=== PATIENT | male | born 1975 | race Caucasian/White ===

== ENCOUNTER 2020-08-16 10:15 | Emergency (ER) | payer MEDICARE, MEDICAID, SELFPAY ==
[2020-08-16 10:25] VITALS: BP 114/69; PULSE 82; RESP 16; TEMP 36.6; O2SAT 100; BMI 27.3
--- NOTE | 2020-08-16 10:52 | ED.GENADULT ---
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 He also reports he has increased pain in his bilateral lower extremities. He has been complaint with all of his medications including lovenox. He states the pain is constant and is in his middle abdomen and radiates outward. No diarrhea, no urinary symptoms. No chest pain or SOB. MD complaint: abdominal pain & leg pain Onset (ago): day(s) Location: abdomen and lower extremity Radiation: flank Severity: severe Severity scale (1-10): 8 Quality: sharp Pain Consistency: constant Relieving factors: none Exacerbating factors: movement Associated symptoms: nausea/vomiting Treatments prior to arrival: none Related Data Previous Rx's Medication Instructions Recorded ciprofloxacin HCl 250 mg PO Q12H #14 tab 08/16/20 metronidazole [Flagyl] 500 mg PO Q12H #14 tab 08/16/20 ondansetron HCl [Zofran] 4 mg PO Q8H PRN #10 tab 08/16/20 Allergies Allergy/AdvReac Type Severity Reaction Status Date / Time acetaminophen [From PERCOCET] Allergy Unknown ITCHING Unverified 05/13/20 19:38 carbamazepine [From TEGRETOL] Allergy Unknown HALLUCINATI Unverified 05/13/20 19:38 ONS influenza virus vaccine, Allergy Unknown GUILLIAN Unverified 05/13/20 19:38 specific BARRE HX. [FLU VACCINE] lamotrigine [From LAMICTAL] Allergy Unknown ITCHING Unverified 05/13/20 19:38 metoclopramide [From REGLAN] Allergy Unknown ITCHY Unverified 05/13/20 19:38 oxycodone [From PERCOCET] Allergy Unknown ITCHING Unverified 05/13/20 19:38 tramadol [TRAMADOL] Allergy Unknown SEIZURES Unverified 05/13/20 19:38 SEAFOOD Allergy Unknown ANAPHYLAXIS Uncoded 05/13/20 19:38 Review of Systems Review of Systems: Constitutional: No Fever, No Chills ENT/Mouth: No sore throat, No Rhinorrhea, No Swallowing Difficulty Eyes: No Eye Pain, No Swelling, No Redness Cardiovascular: No Chest Pain, No SOB, No Orthopnea, No Edema Respiratory: No Cough, No Sputum, No Wheezing, No dyspnea Gastrointestinal: + Nausea, + Vomiting, No Diarrhea, + abdominal Pain, No Hematochezia, No Melena Genitourinary: No Dysuria, No Urinary Frequency, No Hematuria Musculoskeletal: No joint pain, + Myalgias Skin: No Skin Lesions, No rash Neuro: No Weakness, No Numbness, No Dizziness, No Headache Psych: No Anxiety/Panic, No Depression Heme/Lymph: No Bruising, No Lymphadenopathy Endocrine: No Polyuria, No Polydipsia PMFSH Past Medical History Attestation statement: The following information was validated with the patient. Medical History (Updated 08/16/20 @ 16:13 by ANA Ryan) COVID-19 Diabetes DVT (deep venous thrombosis) HIV (human immunodeficiency virus infection) Seizure disorder Surgical History (Updated 08/16/20 @ 11:51 by ANA Ryan) H/O fasciotomy S/P AAA (abdominal aortic aneurysm) repair S/P IVC filter Social History Social History Smoking Status: Former smoker Smoked in Last 30 Days: No Use of substances other than those prescribed or required for medical reasons: No Advance Directives: No Advance Directives Information Provided: No Physical Exam Vital Signs: Vital Signs: Last Vital Signs Temp 97.9 F 08/16/20 10:25 Pulse 74 08/16/20 14:40 Resp 16 08/16/20 12:33 BP 114/66 08/16/20 14:40 Pulse Ox 98 08/16/20 12:33 Body Mass Index 27.3 Appearance: Alert. Oriented X3. No acute distress. Eyes: Pupils equal, round and reactive to light. ENT: Pharynx normal. Neck: Normal inspection. Neck supple. CVS: Normal heart rate and rhythm. Pulses normal. Respiratory: No respiratory distress. Breath sounds normal. Abdomen: Soft with central tenderness and rebound, no palpable mass. normal +BS x4 Skin: Skin warm and dry. Normal skin color. Normal skin turgor. No rashes. Extremities: No lower extremity edema. well healed surgical scars consistent with prior fasciotomy. bilateral calf tenderness, no erythema. Neuro: Oriented X 3. No motor deficit. No sensory deficit. Course Course Course Narrative: 44 y/o male with multiple co-morbitities presenting with abdominal pain and leg pain x4 days. Hx AAA repair in the past. Will proceed with imaging to evaluate for bleeding, endoleak. He has failed Pradaxa in the past and is on Lovenox, will get US to assess for additional acute thrombus. Reevaluation(s) Reevaluation #1: LE US showed no acute DVT, unchanged popliteal artery aneurysm. Lab workup so far is unremarkable. CT scan pending. Patient appears comfortable. Reevaluation #2: CT scan shows possible mild ileitis with small amount of free fluid. He is tolerating PO here. Pain improved with dose of Toradol. He is stable for discharge home with oral antibiotics and referral to GI. He has been seen by GI at [facility] and plans to go back there. All questions were answered, stabel for d/c. Medical Decision Making Lab Data Result diagrams: 08/16/20 11:26 08/16/20 11:26 Labs: Lab Results 08/16/20 08/16/20 08/16/20 Range/Units 11:26 11:26 11:26 WBC 4.0 L (4.8-10.8) X10*3/uL RBC 4.57 L (4.60-5.80) X10*6/uL Hgb 12.0 L (14.0-18.0) g/dl Hct 39.2 L (42-52) % MCV 85.8 (80-98) fL MCH 26.3 L (27.0-33.0) pg MCHC 30.6 L (31.0-36.0) g/dl RDW 16.0 (11.0-16.0) % Plt Count 171 (160-400) X10*3/uL MPV 10.1 (9.4-12.4) fL Immature Gran % (Auto) 0.0 (0.0-0.4) % Neut % (Auto) 37.2 L (45-73) % Lymph % (Auto) 50.0 H (20-40) % [place] % (Auto) 11.1 H (2-11) % Eos % (Auto) 1.2 (0-4) % Baso % (Auto) 0.5 (0-2) % Lymph # (Auto) 2.0 (1.2-4.9) X10*3/uL [place] # (Auto) 0.5 (0.1-1.2) X10*3/uL Eos # (Auto) 0.1 (0.0-0.4) X10*3/uL Baso # (Auto) 0.0 (0.0-0.2) X10*3/uL Abs Immat Gran (auto) 0.00 (0.00-0.03) X10*3/uL Absolute Neuts (auto) 1.5 L (2.0-8.3) X10*3/uL Absolute Nucleated RBC 0.000 (0.0-0.012) X10*3/uL Nucleated RBC % (auto) 0.0 (0.0-0.2) /100WBC PT 11.9 (10.8-13.0) SEC INR 1.0 (0.9-1.1) Sodium 136 (135-145) mmol/L Potassium 3.9 (3.3-5.1) mmol/l Chloride 107 (96-108) mmol/L Carbon Dioxide 21 L (22-29) mmol/L Anion Gap 12 (12-20) BUN 8 L (9-16) mg/dL Creatinine 0.96 (0.5-1.4) mg/dL Estim Creat Clear Calc 96.1 Estimated GFR > 60 Random Glucose 154 H (60-115) mg/dL Lactic Acid (0.5-2.0) mmol/L Calcium 8.3 L (8.4-10.2) mg/dL Magnesium 2.0 (1.6-2.6) mg/dL Total Bilirubin 0.3 (0.0-1.0) mg/dL Direct Bilirubin < 0.2 (0.0-0.5) mg/dL AST 52 H (5-37) U/L ALT 61 H (0-40) U/L Alkaline Phosphatase 97 (39-117) U/L Total Protein 8.0 (6.5-8.0) g/dL Albumin 3.7 (3.5-5.0) g/dL Lipase 37 (8-78) U/L Urine Color Urine Appearance Urine pH (5.0-8.0) Ur Specific [place] (1.005-1.025) Urine Protein (NEG-TRACE) MG/DL Urine Glucose (UA) (NEG) MG/DL Urine Ketones (NEG) MG/DL Urine Blood (NEG) Urine Nitrite (NEG) Ur Leukocyte Esterase (NEG) Urine Opiates Screen (Not Detect) Ur Barbiturates Screen (Not Detect) Ur Phencyclidine Scrn (Not Detect) Ur Amphetamines Screen (Not Detect) U Benzodiazepines Scrn (Not Detect) Urine Cocaine Screen (Not Detect) U Marijuana (THC) Screen (Not Detect) 08/16/20 08/16/20 08/16/20 Range/Units 11:26 11:26 11:26 WBC (4.8-10.8) X10*3/uL RBC (4.60-5.80) X10*6/uL Hgb (14.0-18.0) g/dl Hct (42-52) % MCV (80-98) fL MCH (27.0-33.0) pg MCHC (31.0-36.0) g/dl RDW (11.0-16.0) % Plt Count (160-400) X10*3/uL MPV (9.4-12.4) fL Immature Gran % (Auto) (0.0-0.4) % Neut % (Auto) (45-73) % Lymph % (Auto) (20-40) % [place] % (Auto) (2-11) % Eos % (Auto) (0-4) % Baso % (Auto) (0-2) % Lymph # (Auto) (1.2-4.9) X10*3/uL [place] # (Auto) (0.1-1.2) X10*3/uL Eos # (Auto) (0.0-0.4) X10*3/uL Baso # (Auto) (0.0-0.2) X10*3/uL Abs Immat Gran (auto) (0.00-0.03) X10*3/uL Absolute Neuts (auto) (2.0-8.3) X10*3/uL Absolute Nucleated RBC (0.0-0.012) X10*3/uL Nucleated RBC % (auto) (0.0-0.2) /100WBC PT (10.8-13.0) SEC INR (0.9-1.1) Sodium (135-145) mmol/L Potassium (3.3-5.1) mmol/l Chloride (96-108) mmol/L Carbon Dioxide (22-29) mmol/L Anion Gap (12-20) BUN (9-16) mg/dL Creatinine (0.5-1.4) mg/dL Estim Creat Clear Calc Estimated GFR Random Glucose (60-115) mg/dL Lactic Acid 1.9 (0.5-2.0) mmol/L Calcium (8.4-10.2) mg/dL Magnesium (1.6-2.6) mg/dL Total Bilirubin (0.0-1.0) mg/dL Direct Bilirubin (0.0-0.5) mg/dL AST (5-37) U/L ALT (0-40) U/L Alkaline Phosphatase (39-117) U/L Total Protein (6.5-8.0) g/dL Albumin (3.5-5.0) g/dL Lipase (8-78) U/L Urine Color YELLOW Urine Appearance HAZY Urine pH 6.0 (5.0-8.0) Ur Specific [place] >= 1.030 H (1.005-1.025) Urine Protein TRACE (NEG-TRACE) MG/DL Urine Glucose (UA) 500 H (NEG) MG/DL Urine Ketones NEG (NEG) MG/DL Urine Blood NEG (NEG) Urine Nitrite NEG (NEG) Ur Leukocyte Esterase NEG (NEG) Urine Opiates Screen POSITIVE H (Not Detect) Ur Barbiturates Screen Not Detected (Not Detect) Ur Phencyclidine Scrn Not Detected (Not Detect) Ur Amphetamines Screen Not Detected (Not Detect) U Benzodiazepines Scrn Not Detected (Not Detect) Urine Cocaine Screen Not Detected (Not Detect) U Marijuana (THC) Screen Not Detected (Not Detect) Critical Care Time Critical Care Time Critical Care Time: No Discharge Plan Discharge Clinical Impression: Ileitis Patient Disposition: Home, Self-Care Instructions: Enteritis (ED) Additional Instructions: Take the antibiotics as prescribed. Follow up with GI doctor. Stick to a bland diet while you are not feeling well. Take Tylenol for abdominal discomfort. Stay hydrated. Follow up with your doctor this week. If you have worsening abdominal pain, persistent nausea and vomiting or any other concerning symptom come back to the ER for further evaluation. Prescriptions: New metronidazole [Flagyl] 500 mg tablet 500 mg PO Q12H Qty: 14 RF: 0 ciprofloxacin HCl 250 mg tablet 250 mg PO Q12H Qty: 14 RF: 0 ondansetron HCl [Zofran] 4 mg tablet 4 mg PO Q8H PRN (Reason: nausea and vomiting) Qty: 10 RF: 0 Referrals: Basilio Kaba MD [Physician] - 1 week (ileitis) Print Language: Yakut
--- NOTE | 2020-08-16 10:53 | CT_ITS ---
EXAMINATION: CTA ABDOMEN AND PELVIS WITH BILATERAL RUNOFF WITHOUT AND WITH IV CONTRAST CLINICAL INFORMATION: Bilateral lower extremity pain and abdominal pain. COMPARISON: CT abdomen/pelvis 03/21/2020 TECHNIQUE: Multidetector volumetric imaging was performed from the superior aspect of the liver through the feet both before and following the administration of 85 mL of Omnipaque 350 intravenous contrast. Sagittal and coronal reformatted images were obtained on the technologist's workstation. As a stat reading was requested, structures were not performed at the time of the study. This CT examination was performed using dose optimization techniques as appropriate, variously including the following: *Automated exposure control *Adjustment of mA and/or kV according to patient size (this includes techniques or standardized protocols for targeted exams where dose is matched to indication/reason for exam; i.e. extremities or head) *Use of iterative reconstruction technique DLP: 501 mGy-cm VASCULAR FINDINGS: INFLOW - AORTA AND ITS BRANCHES: The upper abdominal aorta appears normal. There is an aortobiiliac stent graft present. No aortic sac is present at this time. Within the iliac limbs of the aortic stent graft, 2 additional crossing stents appear to be present. There is no evidence of a significant endoleak. Around the right iliac component, there is a tiny bit of high density seen between the lumen of 2 overlapping iliac devices (see series 9 image 41). This is not felt to be significant and is unchanged when compared to 03/21/2020. The left gastric artery has a separate origin from the aorta. The celiac and SMA are patent. The RAMANA is not patent but its branches are seen to fill retrograde. There are single renal arteries present bilaterally without a significant origin stenosis. RUNOFF: RIGHT: The right component of the iliac graft has 2 overlapping stents. As described above, a small bit of contrast is seen between the tucker of the stent which is unchanged when compared to the prior study. The iliac bifurcation is patent. The internal iliac is widely patent. The external iliac is free of disease. The common femoral artery appears normal. The femoral bifurcation is patent. The superficial femoral artery is patent. The profunda femoris is patent. Distally, at the junction of the SFA and popliteal, the popliteal is occluded and there is an SFA to posterior tibial artery bypass graft present. There is retrograde flow through the posterior tibial artery which has a high [id number] joint origin with good filling of the anterior tibial/peroneal trunk. All 3 runoff vessels are seen patent to the foot. LEFT: The stented left common iliac is widely patent. Again, 2 overlapping stents are present in the iliac artery on the left. The iliac bifurcation is patent. Normal-appearing internal iliac and external iliac arteries. The common femoral artery is widely patent. The femoral bifurcation is patent. The profunda femoris and SFA appear normal. The popliteal appears normal with a normal [id number]-[id number]-zpha trifurcation with three-vessel runoff noted to the foot. NON-VASCULAR FINDINGS: No pleural effusions are seen. LUNG BASES: The visualized lung bases are unremarkable. PERITONEAL CAVITY: No ascites. LIVER, GALLBLADDER, AND BILIARY TREE: The liver is normal in size, shape, and attenuation. Only a portion of the liver is included. No focal hepatic lesion or biliary ductal dilatation is present. Status post cholecystectomy. PANCREAS: Unremarkable. SPLEEN: The visualized spleen is unremarkable. A few splenic calcified granulomas are present. ADRENAL GLANDS: Unremarkable. KIDNEYS AND URETERS: The kidneys are normal in size, shape, and attenuation with the exception of a small area of focal scarring in the right lower pole. No hydronephrosis, hydroureter, or calculi seen. No perinephric stranding. BLADDER: Unremarkable. GASTROINTESTINAL TRACT: A rectosigmoid anastomosis is present. The small and large bowel are unremarkable. The appendix is not seen, and surgical clips are noted in the region of the appendix. ABDOMINAL WALL: No significant hernia is appreciated. LYMPH NODES: Some small left para-aortic lymph nodes are present, but there is no retroperitoneal adenopathy seen. VASCULAR: See above for arterial anatomy. A retrievable IVC filter is present just below the level of the renal vein. PELVIC VISCERA: The prostate and seminal vesicles are unremarkable. OSSEOUS STRUCTURES: Unremarkable. CT/CT angio abd aorta runoff IMPRESSION: VASCULAR: 1. Aortobiiliac stent graft with no residual aneurysm or significant endoleak. There are iliac stents inside each iliac component of the graft which are widely patent. On the right, a small area of probable contrast opacification is seen between the tucker of the stents which is unchanged when compared to the prior exam. 2. On the right, there is [id number]-ahmg popliteal occlusion with a distal SFA to posterior tibial bypass graft present with good retrograde filling of all 3 runoff vessels. NON-VASCULAR: 1. A cause for the patient's abdominal pain is not seen. 2. Incidental note made of cholecystectomy, appendectomy, rectosigmoid anastomosis, small para-aortic lymph nodes, retrievable IVC filter, small right right lower pole renal scar This critical result was discussed with ANA Whitt at 2:34 PM and it was ascertained that the content and urgency of the report was understood at the time of direct communication.
[2020-08-16 11:40] LABS: MANUAL DIFF FLAG NO
--- NOTE | 2020-08-16 11:46 | US_ITS ---
EXAMINATION: US VENOUS ULTRASOUND WITH DOPPLER LOWER EXTREMITY, BILATERAL CLINICAL INFORMATION: History of DVT. Bilateral lower extremity pain. COMPARISON: September 24, 2019 and studies dating back to August 02, 2019 TECHNIQUE: Ultrasound of the deep veins is performed from the hip to the calf with compression sonography and color and pulse Doppler assessment. Spectral analysis with color-flow imaging is performed. FINDINGS: RIGHT: There is normal venous compression and respiratory variation and augmented flow. The visualized common femoral vein, superficial femoral vein, profunda femoral vein, popliteal vein, and the trifurcation region shows no evidence of deep venous thrombosis. There is no significant popliteal fossa cyst. There is again noted to be a 2.4 cm diameter right popliteal artery aneurysm with patent lumen measuring approximately 1.5 cm in diameter. LEFT: There is normal venous compression and respiratory variation and augmented flow. The visualized common femoral vein, superficial femoral vein, profunda femoral vein, popliteal vein, and the trifurcation region shows no evidence of deep venous thrombosis. There is no significant popliteal fossa cyst. No popliteal artery aneurysm. US/US venous duplex LE BI IMPRESSION: No acute DVT demonstrated in the bilateral lower extremity. Again noted to be a 2.4 cm right popliteal artery aneurysm.
[2020-08-16 11:49] LABS: Prothrombin Time 11.9 SEC (10.8-13.0)
[2020-08-16 11:52] LABS: Basophils Percent Auto 0.5 % (0-2); Eosinophils Absolute Auto 0.1 X10*3/uL (0.0-0.4); Eosinophils Percent Auto 1.2 % (0-4); Hematocrit 39.2 % (42-52); Mean Corpuscular HGB Conc 30.6 g/dl (31.0-36.0); Mean Corpuscular Hemoglobin 26.3 pg (27.0-33.0); Mean Corpuscular Volume 85.8 fL (80-98); Mean Platelet Volume 10.1 fL (9.4-12.4); Monocytes Absolute Auto 0.5 X10*3/uL (0.1-1.2); Monocytes Percent Auto 11.1 % (2-11); Neutrophils Absolute Auto 1.5 X10*3/uL (2.0-8.3); Neutrophils Percent Auto 37.2 % (45-73); Platelet Count 171 X10*3/uL (160-400); Red Blood Count 4.57 X10*6/uL (4.60-5.80)
[2020-08-16 12:05] LABS: Glucose Urine UA 500 MG/DL (NEG); Leukocyte Esterase Urine NEG (NEG); Nitrite Urine NEG (NEG); Specific Gravity - Urine >= 1.030 (1.005-1.025); Urine Blood NEG (NEG); Urine Ketones NEG (NEG); Urine Protein TRACE MG/DL (NEG-TRACE)
[2020-08-16 12:07] LABS: Appearance Urine HAZY; Color Urine YELLOW
[2020-08-16 12:09] LABS: Lactic Acid 1.9 mmol/L (0.5-2.0)
[2020-08-16 12:16] LABS: Alanine Aminotransferase 61 U/L (0-40); Albumin Level 3.7 g/dL (3.5-5.0); Alkaline Phosphatase 97 U/L (39-117); Anion Gap 12 (12-20); Aspartate Amino Transferase 52 U/L (5-37); Bilirubin Direct < 0.2 mg/dL (0.0-0.5); Bilirubin Total 0.3 mg/dL (0.0-1.0); Blood Urea Nitrogen 8 mg/dL (9-16); Calcium 8.3 mg/dL (8.4-10.2); Carbon Dioxide 21 mmol/L (22-29); Chloride 107 mmol/L (96-108); Creatinine Clr Calc Pharmacy 96.1; Estimated Glomerular Filt Rate > 60; Glucose Random 154 mg/dL (60-115); Lipase 37 U/L (8-78); Potassium 3.9 mmol/l (3.3-5.1); Sodium 136 mmol/L (135-145)
[2020-08-16 12:22] LABS: Amphetamine Screen Urine Not Detected (Not Detect); Barbiturates, Urine Not Detected (Not Detect); Benzodiazepines Screen Urine Not Detected (Not Detect); Cannabinoid Screen Urine Not Detected (Not Detect); Cocaine Screen Urine Not Detected (Not Detect); Opiate Screen Urine POSITIVE (Not Detect); Phencyclidine Screen Urine Not Detected (Not Detect)
[2020-08-16 12:33] VITALS: BP 119/77; PULSE 77; RESP 16; O2SAT 98
[2020-08-16] MEDS: iohexoL 350 MG/ML 100 ML INFUS..BTL 99 ML IV (13:31)
[2020-08-16 14:40] VITALS: BP 114/66; PULSE 74
[2020-08-16] MEDS: Ketorolac Tromethamine 30 MG/ML VIAL IVPUSH (14:50)
== END 2020-08-16 16:24 | disposition home or self-care (01) ==
PROVIDERS: Physician Assistant; Emergency Provider Emergency Medicine
DX: K52.9 Noninfective gastroenteritis and colitis, unspecified (principal); Z21 Asymptomatic human immunodeficiency virus [HIV] infection status; E11.9 Type 2 diabetes mellitus without complications; Z86.718 Personal history of other venous thrombosis and embolism; Z86.19 Personal history of other infectious and parasitic diseases; Z79.899 Other long term (current) drug therapy
CPT/HCPCS: 36415; 75635; 80048; 80076; 80307; 81003; 83605; 83690; 83735; 85025; 85610; 87040; 93970; 96374; 99284; J1885; Q9967

== ENCOUNTER 2020-08-17 11:46 | Outpatient (REF) | payer MEDICARE, MEDICAID, SELFPAY | END 2020-08-17 11:47 | disposition home or self-care (01) | LOC: HO.LAB 11:46 | PROVIDERS: PCP Physician Assistant; Visit Provider Internal Medicine | DX: Z20.828 Contact with and (suspected) exposure to other viral communicable diseases (principal) | CPT/HCPCS: C9803; U0003 ==

== ENCOUNTER 2021-05-13 10:34 | Emergency (ER) | payer MEDICARE, MEDICAID, SELFPAY ==
--- NOTE | ~2021-05-13 | CT_ITS ---
EXAMINATION: CT ANGIOGRAPHY LEGS WITH RUNOFF CLINICAL INFORMATION: AAA repair of abdominal pain radiating to back COMPARISON: CT angiography from 08/16/2020 TECHNIQUE: Multidetector volumetric imaging was performed from the superior aspect of the liver through the feet both before and following the administration of 10mL of Omnipaque 350 intravenous contrast. Sagittal and coronal reformatted images were obtained on the technologist's workstation. As a stat reading was requested, structures were not performed at the time of the study. This CT examination was performed using dose optimization techniques as appropriate, variously including the following: *Automated exposure control *Adjustment of mA and/or kV according to patient size (this includes techniques or standardized protocols for targeted exams where dose is matched to indication/reason for exam; i.e. extremities or head) *Use of iterative reconstruction technique DLP: 530 mGy-cm FINDINGS: LOWER CHEST: Bibasilar atelectasis. The heart is not enlarged. No pericardial effusion. LIVER, GALLBLADDER, AND BILIARY TREE: The liver is normal in size and shape. Decreased hepatic attenuation suggesting hepatic steatosis. No focal hepatic lesion or biliary ductal dilatation is present. The gallbladder is surgically absent. PANCREAS: Unremarkable. SPLEEN: Unremarkable. A 1.5 cm splenule is noted. ADRENAL GLANDS: Unremarkable. KIDNEYS AND URETERS: The kidneys are normal in size, shape, and attenuation. No hydronephrosis, hydroureter, or calculi seen. No perinephric stranding. BLADDER: Unremarkable. GASTROINTESTINAL TRACT: Surgical material noted at the level of the sigmoid colon. The small and large bowel are unremarkable. The appendix is surgically absent. ABDOMINAL WALL: No significant hernia is appreciated. LYMPH NODES: No enlarged lymph nodes per size criteria. VASCULAR: Patency of the celiac and superior mesenteric arteries. The left hepatic artery arises from the aorta. Patency of the bilateral renal arteries. Patient is status post endovascular aortic aneurysm repair with aortobiiliac stent grafts noted. Both components contain overlapping stents.The distal component of the left stent terminates just proximal to the ostium of the left internal iliac artery. The bilateral external and internal iliac arteries are patent. The right superficial femoral artery is patent at its proximal and midportion and demonstrates a SFA to posterior tibial artery bypass graft secondary to occlusion of the distal femoral/popliteal artery. There is subsequent 3 vessel runoff on the right side. The left side demonstrates patency of the superficial femoral artery, popliteal artery, with three-vessel runoff. PELVIC VISCERA: Unremarkable. OSSEOUS STRUCTURES: Degenerative changes of the thoracolumbar spine. No large lytic or blastic lesions are noted. CT/CT angio abd aorta runoff IMPRESSION: 1. No acute process of the abdomen or pelvis identified. 2. No acute vascular injury. 3. Status post aortobiiliac stent graft with patency of stents. 4. Status post right superficial femoral artery to severe tibial artery bypass graft, patent. 5. 3 vessel runoff bilaterally. 6. Decreased hepatic attenuation suggesting hepatic steatosis. 7. Status post cholecystectomy. 8. Surgical material at the level of the sigmoid colon. 9. Status post appendectomy.
--- NOTE | ~2021-05-13 | CT_ITS ---
EXAMINATION: CT HEAD WITHOUT CONTRAST CLINICAL INFORMATION: Status post fall on blood thinners COMPARISON: CT head from 09/06/2019 TECHNIQUE: Contiguous axial imaging was performed from the skull base to vertex without intravenous administration of contrast. This CT examination was performed using dose optimization techniques as appropriate, variously including the following: *Automated exposure control *Adjustment of mA and/or kV according to patient size (this includes techniques or standardized protocols for targeted exams where dose is matched to indication/reason for exam; i.e. extremities or head) *Use of iterative reconstruction technique DLP: 750 5. mGy-cm FINDINGS: There is no evidence of acute intracranial hemorrhage or territorial infarction. No abnormal mass effect or midline shift is seen. [place] to white matter differentiation is well preserved. No extra-axial fluid collections are identified. The ventricles are normal in size. There is no abnormal attenuation within the brain parenchyma. The osseous structures and soft tissues are normal. The mastoid air cells and visualized portions of the paranasal sinuses are well aerated. CT/CT head/brain wo con IMPRESSION: No acute intracranial pathology.
--- NOTE | ~2021-05-13 | US_ITS ---
EXAMINATION: US VENOUS ULTRASOUND WITH DOPPLER LOWER EXTREMITY, BILATERAL CLINICAL INFORMATION: Leg pain status post fall history of DVT with fasciotomy COMPARISON: Ultrasound venous lower extremity bilateral from 08/16/2020 TECHNIQUE: Ultrasound of the deep veins is performed from the hip to the calf with compression sonography and color and pulse Doppler assessment. Spectral analysis with color-flow imaging is performed. FINDINGS: RIGHT: There is normal venous compression and respiratory variation and augmented flow. The visualized common femoral vein, superficial femoral vein, profunda femoral vein, popliteal vein, and the trifurcation region shows no evidence of deep venous thrombosis. There is no significant popliteal fossa cyst. 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 LEFT: There is normal venous compression and respiratory variation and augmented flow. The visualized common femoral vein, superficial femoral vein, profunda femoral vein, popliteal vein, and the trifurcation region shows no evidence of deep venous thrombosis. There is no significant popliteal fossa cyst. Suggestion of chronic-appearing thrombus involving the distal left femoral and popliteal vein. If the patient's symptoms persist, followup ultrasound in 5 days 7 days might be of value to exclude proximal propagation from a non-visualized calf vein. US/US venous duplex LE BI IMPRESSION: 1. No DVT demonstrated in the bilateral lower extremity. 2. Suggestion of chronic-appearing thrombus involving the distal left femoral and popliteal vein. 3. 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
--- NOTE | 2021-05-13 10:35 | PC.NURSE ---
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
[2021-05-13 10:44] VITALS: BP 111/78; PULSE 108; RESP 16; TEMP 36.7; O2SAT 96; BMI 27.6
--- NOTE | 2021-05-13 10:52 | ED.GENADULT ---
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-old mother presents to the emergency department non-traumatic bilateral lower leg pain Related Data Previous Rx's Medication Instructions Recorded ciprofloxacin HCl 250 mg tablet 250 mg PO Q12H #14 tab 08/16/20 metronidazole 500 mg tablet 500 mg PO Q12H #14 tab 08/16/20 (Flagyl) ondansetron HCl 4 mg tablet 4 mg PO Q8H PRN #10 tab 08/16/20 (Zofran) Allergies Allergy/AdvReac Type Severity Reaction Status Date / Time acetaminophen [From PERCOCET] Allergy Unknown ITCHING Unverified 05/13/20 19:38 carbamazepine [From TEGRETOL] Allergy Unknown HALLUCINATI Unverified 05/13/20 19:38 ONS influenza virus vaccine, Allergy Unknown GUILLIAN Unverified 05/13/20 19:38 specific BARRE HX. [FLU VACCINE] lamotrigine [From LAMICTAL] Allergy Unknown ITCHING Unverified 05/13/20 19:38 metoclopramide [From REGLAN] Allergy Unknown ITCHY Unverified 05/13/20 19:38 oxycodone [From PERCOCET] Allergy Unknown ITCHING Unverified 05/13/20 19:38 tramadol [TRAMADOL] Allergy Unknown SEIZURES Unverified 05/13/20 19:38 SEAFOOD Allergy Unknown ANAPHYLAXIS Uncoded 05/13/20 19:38 [facility] Past Medical History Medical History (Updated 08/17/20 @ 00:01 by Danyelle Maharaj) COVID-19 Diabetes DVT (deep venous thrombosis) HIV (human immunodeficiency virus infection) Seizure disorder Surgical History (Updated 08/16/20 @ 11:51 by ANA Ryan) H/O fasciotomy S/P AAA (abdominal aortic aneurysm) repair S/P IVC filter Physical Exam Vital Signs: Vital Signs: Last Vital Signs Temp 98.0 F 05/13/21 10:44 Pulse 108 H 05/13/21 10:44 Resp 16 05/13/21 10:44 BP 111/78 05/13/21 10:44 Pulse Ox 96 05/13/21 10:44 Body Mass Index 27.6 Discharge Plan Discharge Prescriptions: No Action metronidazole [Flagyl] 500 mg tablet 500 mg PO Q12H Qty: 14 RF: 0 ciprofloxacin HCl 250 mg tablet 250 mg PO Q12H Qty: 14 RF: 0 ondansetron HCl [Zofran] 4 mg tablet 4 mg PO Q8H PRN (Reason: nausea and vomiting) Qty: 10 RF: 0
--- NOTE | 2021-05-13 11:12 | ED_ITS ---
HPI - Extremity Problem General Chief complaint: Extremity Problem Stated complaint: leg pain Time Seen by Provider: 05/13/21 10:52 Source: patient Mode of arrival: ambulatory Limitations: language barrier History of Present Illness HPI Narrative: 45-year-old male with extensive history of coagulopathy presents for fall 6 days ago. Patient stood up and began to walk, could not feel his legs, and fell. He did not feel dizzy, or lightheaded, he states that his legs were suddenly weak. He landed on a glass, and has sutures in his right lateral calf. He fell on his stomach as well, he did not hit his head, no loss of consciousness. He has bilateral leg pain since the fall, in his posterior calves and behind his knees. He has pain in his upper abdomen that radiates to his back. He has been nauseous. States he is on Pradaxa now, that Eliquis was not working, not on Lovenox any more Patient denies any bloody stool, hematuria, vomiting or diarrhea. Patient is mildly nauseous. No fevers. Patient has an extensive past medical history including DVTs, with fasciotomies in his bilateral lower extremities, status post AAA repair in 2016 in [place], status post IVC filter, diabetic, history of seizures, HIV on HAART. States he cannot be vaccinated for COVID because he had Gullian Priddy when he go t the flu shot Related Data Previous Rx's Medication Instructions Recorded ciprofloxacin HCl 250 mg tablet 250 mg PO Q12H #14 tab 08/16/20 metronidazole 500 mg tablet 500 mg PO Q12H #14 tab 08/16/20 (Flagyl) ondansetron HCl 4 mg tablet 4 mg PO Q8H PRN #10 tab 08/16/20 (Zofran) Allergies Allergy/AdvReac Type Severity Reaction Status Date / Time acetaminophen [From PERCOCET] Allergy Unknown ITCHING Verified 05/13/21 13:12 carbamazepine [From TEGRETOL] Allergy Unknown HALLUCINATI Verified 05/13/21 13:12 ONS influenza virus vaccine, Allergy Unknown GUILLIAN Verified 05/13/21 13:12 specific BARRE HX. [FLU VACCINE] lamotrigine [From LAMICTAL] Allergy Unknown ITCHING Verified 05/13/21 13:12 metoclopramide [From REGLAN] Allergy Unknown ITCHY Verified 05/13/21 13:12 oxycodone [From PERCOCET] Allergy Unknown ITCHING Verified 05/13/21 13:12 tramadol [TRAMADOL] Allergy Unknown SEIZURES Verified 05/13/21 13:12 SEAFOOD Allergy Unknown ANAPHYLAXIS Uncoded 05/13/20 19:38 Review of Systems Constitutional: Constitutional: Denies fever(s), Denies headache(s), Denies malaise and Reports weakness Eyes: Eyes: Denies blurry vision and Denies change in vision ENT: Denies vertigo, Denies dizziness and Denies headache(s) Cardiovascular: Cardiovascular: Denies chest pain, Reports Epigastric Pain, Denies leg edema, Denies lightheadedness, Denies Loss of Consciousness, Denies radiating jaw, neck or arm pain and Denies dyspnea Respiratory: Respiratory: Denies chest congestion, Denies cough and Denies dyspnea Gastrointestinal: Gastrointestinal: Reports abdominal pain, Denies melena, Denies hematochezia, Denies coffee ground emesis, Denies constipation, Denies diarrhea, Reports nausea, Denies vomiting and Denies hematemesis Genitourinary: Genitourinary: Denies hematuria and Denies dysuria Musculoskeletal: Musculoskeletal: Reports back pain, Denies numbness and Denies tingling Integumentary/Breasts: Skin/Breast: Denies erythema and Denies skin swelling Neurologic: Denies vertigo, Denies dizziness, Denies headache(s), Denies numbness, Denies tingling, Denies paresthesias and Reports weakness PMFSH Past Medical History Medical History COVID-19 Diabetes DVT (deep venous thrombosis) HIV (human immunodeficiency virus infection) Seizure disorder Surgical History H/O fasciotomy S/P AAA (abdominal aortic aneurysm) repair S/P IVC filter Social History Social History Alcohol intake: former Patient Tobacco Use Status: Former Tobacco user Use of substances other than those prescribed or required for medical reasons: No Advance Directives: Yes Advance Directives Information Provided: Yes Advance Directives on File: No Physical Exam Vital Signs: Vital Signs: Last Vital Signs Temp 97.9 F 05/13/21 13:46 Pulse 80 05/13/21 17:37 Resp 16 09/17/21 17:37 BP 120/76 05/13/21 17:37 Pulse Ox 96 05/13/21 16:43 Body Mass Index 27.6 Const: General: cooperative, no acute distress, alert and awake Nutritional Appearance: average body habitus Orientation/consciousness: patient oriented x3 Limitations: no limitations HENMT: Head: Yes normal to inspection, Yes normocephalic and Yes atraumatic Ears: hearing grossly normal bilaterally General nose exam: Normal external nose present Face and sinus: Yes normal facial exam Mouth: Normal oral and palatal mucosa present Throat: Yes posterior oropharynx normal Eyes: Pupils: Equal, round and reactive pupils present EOM: EOMs intact bilaterally Neck: Neck: Yes normal visual inspection, Yes full ROM, Yes no meningeal signs, Yes trachea midline and Yes supple Resp: Effort & Inspection: normal respiratory effort and able to speak in complete sentences Auscultation: clear to auscultation bilaterally, no crackles, no rales, no rhonchi and no wheezes Cardio: Rate: regular rate Rhythm: regular rhythm Heart sounds: S1 normal heart sound present and S2 normal heart sound present GI: Inspection: Yes normal to inspection and Yes scar Palpation (GI): Soft to palpation, Tenderness to palpation present (GI) in the epigastrum, in the LLQ and in the LUQ, Guarding due to palpation present (GI) in the LLQ and not rigid Percussion: Yes normal to percussion Auscultation: normal bowel sounds : General: Yes no CVA tenderness Back/Spine/Pelvis: Back: no CVA tenderness Skin: Other: 4 sutures right lower calf General skin exam: scars (bilateral fasciotomy scars) Neuro: General: patient oriented x3 and no meningeal signs Cranial nerves: Yes CN's II-XII intact bilaterally, Yes Facial sensation intact/muscles of mastication intact, Yes Equal, round and reactive pupils present, Yes Bilaterally intact EOM present, Yes Nystagmus not present, Yes Normal facial strength present, Yes Midline tongue present and Yes Ability to bilaterally rotate head present Cognition (Neuro): normal cognition Motor exam (neuro): 5/5 motor strength present throughout Coordination: [id number] test normal Pupils: Normal pupillary reactivity/response: bilateral Extrem: General: Yes capillary refill normal Right lower extremity: lower leg Details: tenderness Location: of the posterior calf Left lower extremity: lower leg Details: tenderness Location: of the posterior calf Course Course Course Narrative: 45-year-old male with a history of coagulopathy presents with leg weakness 6 days ago that has since resolved, and now bilateral leg pain especially behind his bilateral knees and posterior calf, with abdominal pain. Patient has a history of DVTs and AAA repair. On exam, patient is guarding and tenderness there and has left lower quadrant, tender in his entire belly, no CVA tenderness, tender to palpate posterior calves Will get ultrasound bilateral lower extremities, CT angio aorta runoff, CT head. Reevaluation(s) Reevaluation #1: Labs are unremarkable, head CT shows no acute pathology. 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 Awaiting CT angio aorta runoff report Reevaluation #2: CT angio aorta run off: 1.? No acute process of the abdomen or pelvis identified. 2.? No acute vascular injury. 3.? Status post aortobiiliac stent graft with patency of stents. 4.? Status post right superficial femoral artery to severe tibial artery bypass graft, patent. 5.? 3 vessel runoff bilaterally. 6.? Decreased hepatic attenuation suggesting hepatic steatosis. 7.? Status post cholecystectomy. 8.? Surgical material at the level of the sigmoid colon. 9.? Status post appendectomy. Will send pt home with follow up with PCP MDM - Extremity (Nontraumatic) Lab Data Result diagrams: 05/13/21 12:49 05/13/21 13:36 Labs: Lab Results 05/13/21 05/13/21 05/13/21 Range/Units 12:49 13:36 13:36 WBC 4.4 L (4.8-10.8) X10*3/uL RBC 4.82 (4.60-5.80) X10*6/uL Hgb 13.7 L (14.0-18.0) g/dl Hct 42.8 (42-52) % MCV 88.8 (80-98) fL MCH 28.4 (27.0-33.0) pg MCHC 32.0 (31.0-36.0) g/dl RDW 15.1 (11.0-16.0) % Plt Count 178 (160-400) X10*3/uL MPV 10.2 (9.4-12.4) fL Immature Gran % (Auto) 0.2 (0.0-0.4) % Neut % (Auto) 45.8 (45-73) % Lymph % (Auto) 44.2 H (20-40) % [place] % (Auto) 8.2 (2-11) % Eos % (Auto) 0.9 (0-4) % Baso % (Auto) 0.7 (0-2) % Lymph # (Auto) 2.0 (1.2-4.9) X10*3/uL [place] # (Auto) 0.4 (0.1-1.2) X10*3/uL Eos # (Auto) 0.0 (0.0-0.4) X10*3/uL Baso # (Auto) 0.0 (0.0-0.2) X10*3/uL Abs Immat Gran (auto) 0.01 (0.00-0.03) X10*3/uL Absolute Neuts (auto) 2.0 (2.0-8.3) X10*3/uL Absolute Nucleated RBC 0.000 (0.0-0.012) X10*3/uL Nucleated RBC % (auto) 0.0 (0.0-0.2) /100WBC PT 11.5 (9.9-13.0) SEC INR 1.0 (0.9-1.1) APTT 19.5 L (24.1-38.0) SEC Sodium 135 (135-145) mmol/L Potassium 4.0 (3.3-5.1) mmol/L Chloride 106 (96-108) mmol/L Carbon Dioxide 24 (22-29) mmol/L Anion Gap 9 L (12-20) BUN 8 L (9-16) mg/dL Creatinine 1.01 (0.5-1.4) mg/dL Estim Creat Clear Calc 90.4 Estimated GFR > 60 Random Glucose 129 H (60-115) mg/dL Calcium 8.6 (8.4-10.2) mg/dL Total Bilirubin 0.4 (0.0-1.0) mg/dL AST 36 (5-37) U/L ALT 39 (0-40) U/L Alkaline Phosphatase 130 H D (39-117) U/L Total Protein 8.5 H (6.5-8.0) g/dL Albumin 4.0 (3.5-5.0) g/dL Lipase 18 (8-78) U/L Discharge Plan Discharge Clinical Impression: Bilateral leg pain Patient Disposition: Home, Self-Care Additional Instructions: All your test were negative today, please call your primary care provider for follow-up appointment from today's emergency room visit on Sunday. Prescriptions: No Action metronidazole [Flagyl] 500 mg tablet 500 mg PO Q12H Qty: 14 RF: 0 ciprofloxacin HCl 250 mg tablet 250 mg PO Q12H Qty: 14 RF: 0 ondansetron HCl [Zofran] 4 mg tablet 4 mg PO Q8H PRN (Reason: nausea and vomiting) Qty: 10 RF: 0
[2021-05-13 11:25] VITALS: BP 131/77; PULSE 93; RESP 18; O2SAT 97
[2021-05-13] MEDS: ondansetron HCL 4 MG/2 ML VIAL IVPUSH (12:52)
[2021-05-13] MEDS: Morphine Sulfate 4 MG/ML CARTRIDGE IVPUSH ×3 (12:52→17:36)
[2021-05-13 12:53] LABS: MANUAL DIFF FLAG NO
[2021-05-13] MEDS: 0.9 % Sodium Chloride 1,000 ML 999 ML IV (12:53)
[2021-05-13 12:54] LABS: Basophils Percent Auto 0.7 % (0-2); Eosinophils Percent Auto 0.9 % (0-4); Hematocrit 42.8 % (42-52); Hemoglobin 13.7 g/dl (14.0-18.0); Imm Gran Abs Auto 0.01 X10*3/uL (0.00-0.03); Imm Gran Pct Auto 0.2 % (0.0-0.4); Lymphocytes Percent Auto 44.2 % (20-40); Mean Corpuscular Hemoglobin 28.4 pg (27.0-33.0); Mean Corpuscular Volume 88.8 fL (80-98); Mean Platelet Volume 10.2 fL (9.4-12.4); Monocytes Absolute Auto 0.4 X10*3/uL (0.1-1.2); Monocytes Percent Auto 8.2 % (2-11); Neutrophils Percent Auto 45.8 % (45-73); Platelet Count 178 X10*3/uL (160-400); Red Blood Count 4.82 X10*6/uL (4.60-5.80); Red Cell Distribution Width 15.1 % (11.0-16.0); White Blood Count 4.4 X10*3/uL (4.8-10.8)
[2021-05-13 13:46] VITALS: BP 132/87; PULSE 72; RESP 16; TEMP 36.6; O2SAT 98
[2021-05-13 14:08] LABS: Prothrombin Time 11.5 SEC (9.9-13.0)
[2021-05-13 14:10] LABS: Alanine Aminotransferase 39 U/L (0-40); Alkaline Phosphatase 130 U/L (39-117); Anion Gap 9 (12-20); Aspartate Amino Transferase 36 U/L (5-37); Bilirubin Total 0.4 mg/dL (0.0-1.0); Blood Urea Nitrogen 8 mg/dL (9-16); Calcium 8.6 mg/dL (8.4-10.2); Carbon Dioxide 24 mmol/L (22-29); Chloride 106 mmol/L (96-108); Creatinine Clr Calc Pharmacy 90.4; Estimated Glomerular Filt Rate > 60; Glucose Random 129 mg/dL (60-115); Lipase 18 U/L (8-78); Sodium 135 mmol/L (135-145); Total Protein 8.5 g/dL (6.5-8.0)
[2021-05-13 14:11] VITALS: BP 124/81; PULSE 80; RESP 18; O2SAT 98
--- NOTE | 2021-05-13 14:14 | PC.NURSE ---
Pt restig quietly. Medicated for pain. VSS. Awaiting CT scan at this time.
[2021-05-13 14:42] LABS: Partial Thromboplastin Time 19.5 SEC (24.1-38.0)
[2021-05-13] MEDS: iohexoL 350 MG/ML 100 ML INFUS..BTL IV (15:32)
--- NOTE | 2021-05-13 16:42 | PC.NURSE ---
pt is caox4 with brisk reflexes x 4 ext. pedal pulses remain = bilat. awaiting ct report. requests additional pain medication. pac aware.
[2021-05-13 16:43] VITALS: BP 109/67; RESP 16; O2SAT 96
[2021-05-13 17:37] VITALS: BP 120/76; PULSE 80; RESP 16
== END 2021-05-13 18:26 | disposition home or self-care (01) ==
PROVIDERS: Physician Assistant; Emergency Provider Emergency Medicine; PCP Physician Assistant
DX: M79.661 Pain in right lower leg (principal); M79.662 Pain in left lower leg; R60.0 Localized edema; R51.9 Headache, unspecified; Z87.891 Personal history of nicotine dependence; Z79.899 Other long term (current) drug therapy
CPT/HCPCS: 36415; 70450; 75635; 80053; 83690; 85025; 85610; 85730; 93970; 96361; 96374; 96375; 96376; 99284; J2270; J2405; Q9967

== ENCOUNTER 2021-05-26 11:06 | Emergency (ER) | payer MEDICARE, MEDICAID, SELFPAY ==
--- NOTE | ~2021-05-26 | CT_ITS ---
EXAMINATION: CT ABDOMEN AND PELVIS WITH CONTRAST CLINICAL INFORMATION: Left-sided abdominal pain, and bloody diarrhea. COMPARISON: Previous CTA of the abdomen and pelvis most recent 05/13/[address] scans most recent February 2020 TECHNIQUE: Multidetector volumetric images were obtained from the superior aspect of the liver through the pubic symphysis following administration 85 mL of Omnipaque 350 intravenous contrast. Sagittal and coronal reformatted images were obtained on the technologist's workstation. Oral contrast: Yes This CT examination was performed using dose optimization techniques as appropriate, variously including the following: *Automated exposure control *Adjustment of mA and/or kV according to patient size (this includes techniques or standardized protocols for targeted exams where dose is matched to indication/reason for exam; i.e. extremities or head) *Use of iterative reconstruction technique DLP: 605 mGy-cm FINDINGS: LUNG BASES: There is a 5 mm calcified right lower lobe nodule that is stable. LIVER, GALLBLADDER, AND BILIARY TREE: The liver is slightly low in attenuation suggestive of mild fatty infiltration. The gallbladder has been removed. There is no biliary duct dilatation.. PANCREAS: Unremarkable. SPLEEN: There are calcifications in the spleen. There is a small splenule. ADRENAL GLANDS: Unremarkable. KIDNEYS AND URETERS: The kidneys are normal in size, shape, and attenuation. No hydronephrosis, hydroureter, or calculi seen. There is a small 5 mm low-attenuation lesion in the upper pole of the left kidney probably representing a cyst. There is cortical thinning or scarring of the lower pole the right kidney. BLADDER: Unremarkable. GASTROINTESTINAL TRACT: There are postsurgical changes to the sigmoid colon. There is question of mild wall thickening of the rectum/proctitis. No evidence of colitis or diverticulitis is seen. The appendix has been removed. The stomach appears distended and filled with fluid and food. ABDOMINAL WALL: There are multiple small ventral hernias containing fat. LYMPH NODES: Normal. VASCULAR: There is an aortobiiliac stent graft that appears unchanged. No aneurysm is seen. The celiac axis and SMA are patent. PELVIC VISCERA: Unremarkable. OSSEOUS STRUCTURES: Unremarkable. CT/CT abdomen pelvis w con IMPRESSION: Question mild wall thickening of the rectum/proctitis. No evidence of colitis. Postsurgical change sigmoid colon.
[2021-05-26 11:24] VITALS: BP 144/72; PULSE 86; RESP 18; TEMP 36.8; O2SAT 99; BMI 27.6
--- NOTE | 2021-05-26 14:57 | ED_ITS ---
HPI - Abdominal Pain General Chief Complaint: Abdominal Pain Stated Complaint: abd pain Time Seen by Provider: 05/26/21 14:41 Source: patient Mode of arrival: ambulatory Limitations: no limitations History of Present Illness HPI narrative: 44 y/o male with history of recurrent bilateral DVT's on Lovenox (s/p Pradaxa failure), s/p IVC filter placement, seizure disorder, HIV on HAART, DM2, hx bilateral LE fasciotomies, hx AAA s/p endovascular repair 2016 in [place], hx diverticulitis s/p resection, s/p appendectomy and cholecystectomy and chronic abdominal pain who presents to the ER with 4 days of left flank and left lower quadrant pain. He also reports bloody diarrhea 2 days ago that has resolved. He is nausated but has not vomited. No fevers, chills, or urinary symptoms. MD elicited complaint: abdominal pain and flank pain Pertinent past history: diverticulitis and HIV Onset (ago): day(s) (4) Pain Consistency: intermittent Location: LUQ and LLQ Severity: moderate Quality: stabbing Radiation: none Exacerbating factors: bowel movement Relieving factors: nothing Context: history of similar episodes Associated symptoms: nausea Related Data Previous Rx's Medication Instructions Recorded ciprofloxacin HCl 250 mg tablet 250 mg PO Q12H #14 tab 08/16/20 metronidazole 500 mg tablet 500 mg PO Q12H #14 tab 08/16/20 (Flagyl) ondansetron HCl 4 mg tablet 4 mg PO Q8H PRN #10 tab 08/16/20 (Zofran) hydrocortisone 2.5 % topical cream 1 appl GA DAILY #30 g 05/26/21 with perineal applicator (Procto-Med HC) ibuprofen 600 mg tablet 600 mg PO Q8H PRN #15 tab 05/26/21 Allergies Allergy/AdvReac Type Severity Reaction Status Date / Time influenza virus vaccine, Allergy Severe GUILLIAN Verified 05/26/21 11:24 specific BARRE HX. [FLU VACCINE] tramadol [TRAMADOL] Allergy Severe SEIZURES Verified 05/26/21 11:24 acetaminophen [From PERCOCET] Allergy Intermediate ITCHING Verified 05/26/21 11:24 carbamazepine [From TEGRETOL] Allergy Intermediate HALLUCINATI Verified 05/26/21 11:24 ONS lamotrigine [From LAMICTAL] Allergy Intermediate ITCHING Verified 05/26/21 11:24 metoclopramide [From REGLAN] Allergy Intermediate ITCHY Verified 05/26/21 11:24 oxycodone [From PERCOCET] Allergy Intermediate ITCHING Verified 05/26/21 11:24 SEAFOOD Allergy Severe ANAPHYLAXIS Uncoded 05/26/21 11:24 Review of Systems Review of Systems Constitutional: No Fever, No Chills ENT/Mouth: No sore throat, No Rhinorrhea, No Swallowing Difficulty Eyes: No Eye Pain, No Swelling, No Redness Cardiovascular: No Chest Pain, No SOB, No Orthopnea, No Edema Respiratory: No Cough, No Sputum, No Wheezing, No dyspnea Gastrointestinal: + Nausea, No Vomiting, No Diarrhea, + abdominal Pain, + Hematochezia, No Melena Genitourinary: No Dysuria, No Urinary Frequency, No Hematuria Musculoskeletal: No joint pain, No Myalgias Skin: No Skin Lesions, No rash Neuro: No Weakness, No Numbness, No Dizziness, No Headache Psych: No Anxiety/Panic, No Depression Heme/Lymph: No Bruising, No Lymphadenopathy Endocrine: No Polyuria, No Polydipsia Physical Exam Vital Signs: Vital Signs: Last Vital Signs Temp 98.3 F 05/26/21 11:24 Pulse 80 05/26/21 15:41 Resp 16 05/26/21 15:41 BP 117/78 05/26/21 15:41 Pulse Ox 99 05/26/21 15:41 Body Mass Index 27.6 Appearance: Alert. Oriented X3. No acute distress. Eyes: Pupils equal, round and reactive to light. ENT: Pharynx normal. Neck: Normal inspection. Neck supple. CVS: Normal heart rate and rhythm. Pulses normal. Respiratory: No respiratory distress. Breath sounds normal. Abdomen: well healed surgical scar centrally, Soft with mild left sided tenderness, no rebound or guarding. declining rectal exam Skin: Skin warm and dry. Normal skin color. Normal skin turgor. No rashes. Extremities: No lower extremity edema. Neuro: Oriented X 3. No motor deficit. No sensory deficit. Course Course Course Narrative: 45 y/o male presenting with 4 days of left sided abdominal pain and bloody diarrhea that resolved. No vomiting or fevers. He has some left sided abdominal tenderness, hxc diverticulitis requiring bowel resection. Will get labs and CT scan for further evaluation. Reevaluation(s) Reevaluation #1: Labs unremarkable, similar to priors. CT scan showing possible mild proctitis. He is again declining rectal exam. No abscess seen on CT. He reports history of anal sex but none in the last 2 months for lutheran reasons. He denies concern for STI. He reports his CD4 count is adequate and viral load remains undetectable. Will treat locally with GA Anusol, have him follow up with GI and Surgery. He has not had a colonoscopy in several years. He understands the importance of follow up. Stable for d/c home with supportive care. MDM - Abdominal Pain Lab Data Result diagrams: 05/26/21 15:38 05/26/21 15:38 Labs: Lab Results 05/26/21 05/26/21 05/26/21 Range/Units 15:38 15:38 15:38 WBC 4.7 L (4.8-10.8) X10*3/uL RBC 4.73 (4.60-5.80) X10*6/uL Hgb 13.3 L (14.0-18.0) g/dl Hct 41.4 L (42-52) % MCV 87.5 (80-98) fL MCH 28.1 (27.0-33.0) pg MCHC 32.1 (31.0-36.0) g/dl RDW 14.6 (11.0-16.0) % Plt Count 174 (160-400) X10*3/uL MPV 9.1 L (9.4-12.4) fL Immature Gran % (Auto) 0.0 (0.0-0.4) % Neut % (Auto) 39.6 L (45-73) % Lymph % (Auto) 49.5 H (20-40) % [place]leicher % (Auto) 9.6 (2-11) % Eos % (Auto) 0.9 (0-4) % Baso % (Auto) 0.4 (0-2) % Lymph # (Auto) 2.3 (1.2-4.9) X10*3/uL [place]icher # (Auto) 0.5 (0.1-1.2) X10*3/uL Eos # (Auto) 0.0 (0.0-0.4) X10*3/uL Baso # (Auto) 0.0 (0.0-0.2) X10*3/uL Abs Immat Gran (auto) 0.00 (0.00-0.03) X10*3/uL Absolute Neuts (auto) 1.9 L (2.0-8.3) X10*3/uL Absolute Nucleated RBC 0.000 (0.0-0.012) X10*3/uL Nucleated RBC % (auto) 0.0 (0.0-0.2) /100WBC Sodium 137 (135-145) mmol/L Potassium 3.9 (3.3-5.1) mmol/L Chloride 106 (96-108) mmol/L Carbon Dioxide 23 (22-29) mmol/L Anion Gap 12 (12-20) BUN 9 (9-16) mg/dL Creatinine 1.19 (0.5-1.4) mg/dL Estim Creat Clear Calc 76.7 Estimated GFR > 60 Random Glucose 201 H D (60-115) mg/dL Lactic Acid 2.0 (0.5-2.0) mmol/L Calcium 8.8 (8.4-10.2) mg/dL Magnesium 2.1 (1.6-2.6) mg/dL Total Bilirubin 0.3 (0.0-1.0) mg/dL Direct Bilirubin 0.2 (0.0-0.5) mg/dL AST 34 (5-37) U/L ALT 42 H (0-40) U/L Alkaline Phosphatase 140 H (39-117) U/L Total Protein 8.9 H (6.5-8.0) g/dL Albumin 4.1 (3.5-5.0) g/dL Lipase 22 (8-78) U/L Urine Color Urine Appearance Urine pH (5.0-8.0) Ur Specific [place]son (1.005-1.025) Urine Protein (NEG-TRACE) MG/DL Urine Glucose (UA) (NEG) MG/DL Urine Ketones (NEG) MG/DL Urine Blood (NEG) Urine Nitrite (NEG) Ur Leukocyte Esterase (NEG) Urine RBC (0) /HPF Urine WBC (0-4) /HPF Ur Squamous Epith Cells /LPF Amorphous Sediment /LPF Urine Bacteria /LPF Urine Mucus /LPF COVID-19 (CAYLA) (Negative) COVID-19 Clin Com 05/26/21 05/26/21 Range/Units 15:38 15:38 WBC (4.8-10.8) X10*3/uL RBC (4.60-5.80) X10*6/uL Hgb (14.0-18.0) g/dl Hct (42-52) % MCV (80-98) fL MCH (27.0-33.0) pg MCHC (31.0-36.0) g/dl RDW (11.0-16.0) % Plt Count (160-400) X10*3/uL MPV (9.4-12.4) fL Immature Gran % (Auto) (0.0-0.4) % Neut % (Auto) (45-73) % Lymph % (Auto) (20-40) % Schleicher % (Auto) (2-11) % Eos % (Auto) (0-4) % Baso % (Auto) (0-2) % Lymph # (Auto) (1.2-4.9) X10*3/uL Schleicher # (Auto) (0.1-1.2) X10*3/uL Eos # (Auto) (0.0-0.4) X10*3/uL Baso # (Auto) (0.0-0.2) X10*3/uL Abs Immat Gran (auto) (0.00-0.03) X10*3/uL Absolute Neuts (auto) (2.0-8.3) X10*3/uL Absolute Nucleated RBC (0.0-0.012) X10*3/uL Nucleated RBC % (auto) (0.0-0.2) /100WBC Sodium (135-145) mmol/L Potassium (3.3-5.1) mmol/L Chloride (96-108) mmol/L Carbon Dioxide (22-29) mmol/L Anion Gap (12-20) BUN (9-16) mg/dL Creatinine (0.5-1.4) mg/dL Estim Creat Clear Calc Estimated GFR Random Glucose (60-115) mg/dL Lactic Acid (0.5-2.0) mmol/L Calcium (8.4-10.2) mg/dL Magnesium (1.6-2.6) mg/dL Total Bilirubin (0.0-1.0) mg/dL Direct Bilirubin (0.0-0.5) mg/dL AST (5-37) U/L ALT (0-40) U/L Alkaline Phosphatase (39-117) U/L Total Protein (6.5-8.0) g/dL Albumin (3.5-5.0) g/dL Lipase (8-78) U/L Urine Color YELLOW Urine Appearance HAZY Urine pH 6.5 (5.0-8.0) Ur Specific Ax[place] 1.015 (1.005-1.025) Urine Protein TRACE (NEG-TRACE) MG/DL Urine Glucose (UA) >=1000 H (NEG) MG/DL Urine Ketones NEG (NEG) MG/DL Urine Blood NEG (NEG) Urine Nitrite NEG (NEG) Ur Leukocyte Esterase NEG (NEG) Urine RBC 0-2 (0) /HPF Urine WBC 0-2 (0-4) /HPF Ur Squamous Epith Cells 1+ /LPF Amorphous Sediment 2+ /LPF Urine Bacteria TRACE /LPF Urine Mucus 2+ /LPF COVID-19 (CAYLA) Negative (Negative) COVID-19 Clin Com See Note Critical Care Time Critical Care Time Critical Care Time: No Discharge Plan Discharge Clinical Impression: Proctitis Patient Disposition: Home, Self-Care Instructions: Proctitis (ED), Abdominal Pain (ED) Additional Instructions: Your CT scan showed mild inflammation of the rectum. Use the prescribed suppositories to help decrease the inflammation. No anal sex. Stick to a bland diet and eat plenty of fiber. Recommend stool softeners. Stay hydrated. Recommend following up with both GI and Surgery - numbers listed below. Follow up with your doctor for additional narcotic medication as needed. If you develop new or worsening symptoms call 911 or come back to the ER for further evaluation. Cedillo tomograf?a computarizada mostr? shawn leve inflamaci?n del recto. Use los supositorios recetados para ayudar a disminuir la inflamaci?n. Sin sexo anal. Siga shawn dieta blanda y coma marisol fibra. Recomendar ablandadores de heces. Mantente hidratado. Recomiende realizar un seguimiento tanto con GI pau con Cirug?a; los n?meros se enumeran a continuaci?n. Alesia un seguimiento con cedillo m?dico para obtener medicamentos narc?ticos adicionales seg?n sea necesario. Si presenta s?ntomas nuevos o que empeoran, llame al 911 o regrese a la tisha de emergencias para shawn evaluaci?n adicional. Prescriptions: New hydrocortisone [Procto-Med HC] 2.5 % cream with perineal applicator 1 appl GA DAILY Qty: 30 RF: 0 ibuprofen 600 mg tablet 600 mg PO Q8H PRN (Reason: pain) Qty: 15 RF: 0 No Action metronidazole [Flagyl] 500 mg tablet 500 mg PO Q12H Qty: 14 RF: 0 ciprofloxacin HCl 250 mg tablet 250 mg PO Q12H Qty: 14 RF: 0 ondansetron HCl [Zofran] 4 mg tablet 4 mg PO Q8H PRN (Reason: nausea and vomiting) Qty: 10 RF: 0 Referrals: Craig Perez MD [Physician] - 2 days (proctitis) Tim Delgado [Physician] - 2 days (chronic abdominal pain, proctitis) Print Language: [facility] Past Medical History Medical History COVID-19 Diabetes DVT (deep venous thrombosis) HIV (human immunodeficiency virus infection) Seizure disorder Surgical History H/O fasciotomy S/P AAA (abdominal aortic aneurysm) repair S/P IVC filter Social History Social History Alcohol intake: former Patient Tobacco Use Status: Former Tobacco user Use of substances other than those prescribed or required for medical reasons: No Advance Directives: No
[2021-05-26 15:41] VITALS: BP 117/78; PULSE 80; RESP 16; O2SAT 99
[2021-05-26 15:44] LABS: MANUAL DIFF FLAG NO
[2021-05-26 15:46] LABS: Basophils Percent Auto 0.4 % (0-2); Eosinophils Percent Auto 0.9 % (0-4); Hematocrit 41.4 % (42-52); Hemoglobin 13.3 g/dl (14.0-18.0); Lymphocytes Absolute Auto 2.3 X10*3/uL (1.2-4.9); Lymphocytes Percent Auto 49.5 % (20-40); Mean Corpuscular HGB Conc 32.1 g/dl (31.0-36.0); Mean Corpuscular Hemoglobin 28.1 pg (27.0-33.0); Mean Corpuscular Volume 87.5 fL (80-98); Mean Platelet Volume 9.1 fL (9.4-12.4); Monocytes Absolute Auto 0.5 X10*3/uL (0.1-1.2); Monocytes Percent Auto 9.6 % (2-11); Neutrophils Absolute Auto 1.9 X10*3/uL (2.0-8.3); Neutrophils Percent Auto 39.6 % (45-73); Platelet Count 174 X10*3/uL (160-400); Red Blood Count 4.73 X10*6/uL (4.60-5.80); Red Cell Distribution Width 14.6 % (11.0-16.0); White Blood Count 4.7 X10*3/uL (4.8-10.8)
[2021-05-26 15:48] LABS: Appearance Urine HAZY; Color Urine YELLOW; Glucose Urine UA >=1000 MG/DL (NEG); Leukocyte Esterase Urine NEG (NEG); Nitrite Urine NEG (NEG); PH 6.5 (5.0-8.0); Specific Gravity - Urine 1.015 (1.005-1.025); Urine Blood NEG (NEG); Urine Ketones NEG (NEG); Urine Protein TRACE MG/DL (NEG-TRACE)
[2021-05-26] MEDS: ondansetron HCL 4 MG/2 ML VIAL IVPUSH (15:50)
[2021-05-26] MEDS: Morphine Sulfate 4 MG/ML CARTRIDGE IVPUSH (15:51)
[2021-05-26 15:56] LABS: Bacteria Urine TRACE /LPF; Mucus Urine 2+ /LPF; RBC Urine 0-2 /HPF (0); Squamous Epithelial Cell Urine 1+ /LPF; WBC Urine 0-2 /HPF (0-4)
[2021-05-26 15:57] LABS: Amorphous Sediment Urine 2+ /LPF
[2021-05-26 16:04] LABS: COVID-19 Test Negative (Negative)
[2021-05-26 16:05] LABS: Alanine Aminotransferase 42 U/L (0-40); Albumin Level 4.1 g/dL (3.5-5.0); Alkaline Phosphatase 140 U/L (39-117); Anion Gap 12 (12-20); Aspartate Amino Transferase 34 U/L (5-37); Bilirubin Direct 0.2 mg/dL (0.0-0.5); Bilirubin Total 0.3 mg/dL (0.0-1.0); Blood Urea Nitrogen 9 mg/dL (9-16); Calcium 8.8 mg/dL (8.4-10.2); Carbon Dioxide 23 mmol/L (22-29); Chloride 106 mmol/L (96-108); Creatinine Clr Calc Pharmacy 76.7; Estimated Glomerular Filt Rate > 60; Glucose Random 201 mg/dL (60-115); Lipase 22 U/L (8-78); Magnesium 2.1 mg/dL (1.6-2.6); Potassium 3.9 mmol/L (3.3-5.1); Sodium 137 mmol/L (135-145); Total Protein 8.9 g/dL (6.5-8.0)
[2021-05-26] MEDS: iohexoL 350 MG/ML 100 ML INFUS..BTL IV (16:31)
== END 2021-05-26 17:45 | disposition home or self-care (01) ==
PROVIDERS: Physician Assistant; Emergency Provider Emergency Medicine Emergency Medical Services; PCP Physician Assistant
DX: K62.89 Other specified diseases of anus and rectum (principal); R10.12 Left upper quadrant pain; R10.32 Left lower quadrant pain; Z20.822 Contact with and (suspected) exposure to COVID-19; Z79.899 Other long term (current) drug therapy
CPT/HCPCS: 36415; 74177; 80048; 80076; 81001; 83605; 83690; 83735; 85025; 87635; 96374; 96375; 99284; J2270; J2405; Q9967

== ENCOUNTER → 2021-06-13 13:14 | Outpatient (BNVA) | payer MEDICARE, MEDICAID, SELFPAY | PROVIDERS: PCP Physician Assistant; Referring Provider Physician Assistant; Visit Provider Surgery | DX: R10.9 Unspecified abdominal pain (principal) | CPT/HCPCS: 46600; 99202 ==

== ENCOUNTER 2021-06-22 12:19 | Emergency (ER) | payer MEDICARE, MEDICAID, SELFPAY ==
--- NOTE | ~2021-06-22 | XR_ITS ---
EXAMINATION: XR CHEST CLINICAL INFORMATION: Chest pain COMPARISON: July 14, 2019 TECHNIQUE: Frontal view of the chest was obtained. FINDINGS: No significant abnormality is noted involving the heart, lungs, mediastinum, bony thorax or soft tissues. XR/XR chest 1V IMPRESSION: No acute disease.
--- NOTE | ~2021-06-22 | CT_ITS ---
EXAMINATION: CT ABDOMEN AND PELVIS WITH CONTRAST CLINICAL INFORMATION: Abdominal pain COMPARISON: CT abdomen pelvis 05/26/2021 TECHNIQUE: Multidetector volumetric images were obtained from the superior aspect of the liver through the pubic symphysis following administration 85 mL of Omnipaque 350 intravenous contrast. Sagittal and coronal reformatted images were obtained on the technologist's workstation. Oral contrast: No This CT examination was performed using dose optimization techniques as appropriate, variously including the following: *Automated exposure control *Adjustment of mA and/or kV according to patient size (this includes techniques or standardized protocols for targeted exams where dose is matched to indication/reason for exam; i.e. extremities or head) *Use of iterative reconstruction technique DLP: 837 mGy-cm FINDINGS: LUNG BASES: The visualized lung bases are unremarkable. Minimal basilar atelectasis is present. A calcified granuloma is noted at the right lung base. LIVER, GALLBLADDER, AND BILIARY TREE: The liver is normal in size, shape, and attenuation. No focal hepatic lesion or biliary ductal dilatation is present. Status post cholecystectomy. PANCREAS: Unremarkable. SPLEEN: Calcified splenic granulomas are present. A splenule is noted. ADRENAL GLANDS: Unremarkable. KIDNEYS AND URETERS: The kidneys are normal in size, shape, and attenuation. No hydronephrosis, hydroureter, or calculi seen. No perinephric stranding. BLADDER: Unremarkable. GASTROINTESTINAL TRACT: Patient status post partial sigmoid resection with a rectosigmoid suture line. No evidence of recurrent mass. Scattered colonic diverticula noted without diverticulitis. The small and large bowel are unremarkable. Surgical clips are noted in the area of the appendix which is not seen. ABDOMINAL WALL: No significant hernia is appreciated. LYMPH NODES: No retroperitoneal lymphadenopathy. VASCULAR: An aortobiiliac stent graft is present. No large aneurysm sac or endoleak is seen. PELVIC VISCERA: Prostate and seminal vesicles appear normal. OSSEOUS STRUCTURES: Unremarkable. CT/CT abdomen pelvis w con IMPRESSION: A cause for the patient's abdominal pain is not found. 1. Incidental note made of calcified splenic and pulmonary granulomas, cholecystectomy, appendectomy, sigmoid resection and aortobiiliac stent graft.
[2021-06-22 13:00] VITALS: BP 116/82; PULSE 107; RESP 19; TEMP 37.4; O2SAT 99; BMI 26.2
--- NOTE | 2021-06-22 13:05 | ECG_ITS ---
Test Reason : ABDOMINAL PAIN Blood Pressure : / mmHG Vent. Rate : 092 BPM Atrial Rate : 092 BPM P-R Int : 150 ms QRS Dur : 090 ms QT Int : 350 ms P-R-T Axes : 036 036 017 degrees QTc Int : 432 ms Normal sinus rhythm Nonspecific T wave abnormality Anterolateral leads Abnormal ECG T wave amplitude has decreased in Lateral leads Referred By: Generic ED Physician Electronically Signed By:TANYA FAROOQ MD
[2021-06-22 13:59] LABS: MANUAL DIFF FLAG NO
[2021-06-22 14:02] LABS: Basophils Percent Auto 0.2 % (0-2); Eosinophils Percent Auto 0.1 % (0-4); Hemoglobin 12.9 g/dl (14.0-18.0); Imm Gran Abs Auto 0.02 X10*3/uL (0.00-0.03); Imm Gran Pct Auto 0.2 % (0.0-0.4); Lymphocytes Absolute Auto 2.2 X10*3/uL (1.2-4.9); Lymphocytes Percent Auto 24.7 % (20-40); Mean Corpuscular HGB Conc 32.3 g/dl (31.0-36.0); Mean Corpuscular Hemoglobin 28.5 pg (27.0-33.0); Mean Corpuscular Volume 88.3 fL (80-98); Mean Platelet Volume 9.3 fL (9.4-12.4); Monocytes Absolute Auto 0.7 X10*3/uL (0.1-1.2); Monocytes Percent Auto 8.4 % (2-11); Neutrophils Absolute Auto 5.8 X10*3/uL (2.0-8.3); Neutrophils Percent Auto 66.4 % (45-73); Platelet Count 154 X10*3/uL (160-400); Red Blood Count 4.53 X10*6/uL (4.60-5.80); White Blood Count 8.7 X10*3/uL (4.8-10.8)
[2021-06-22 14:12] LABS: Anion Gap 12 (12-20); Blood Urea Nitrogen 8 mg/dL (9-16); Calcium 8.6 mg/dL (8.4-10.2); Carbon Dioxide 22 mmol/L (22-29); Chloride 105 mmol/L (96-108); Creatinine Clr Calc Pharmacy 77.3; Estimated Glomerular Filt Rate > 60; Glucose Random 180 mg/dL (60-115); Potassium 4.4 mmol/L (3.3-5.1); Sodium 135 mmol/L (135-145)
[2021-06-22 14:19] LABS: Troponin-I High Sensitivity < 3.5 ng/L (<3.5-35.0)
--- NOTE | 2021-06-22 16:45 | ED_ITS ---
HPI - Abdominal Pain General Chief Complaint: Abdominal Pain Stated Complaint: headache, diarrhea, abd pain Time Seen by Provider: 06/22/21 16:38 Source: patient Mode of arrival: ambulatory Limitations: no limitations History of Present Illness HPI narrative: this is a 45 years old the patient with history of HIV disease history of DVTpresented c/o abdominal paim,he has hx of diverticulitis and bowel resection,he is anticoagulated with pradaxa elicited complaint: abdominal pain Pertinent past history: diverticulitis Onset (ago): week(s) Pain Consistency: constant Location: diffuse Severity: moderate Quality: cramping Radiation: none Migration to: no migration Associated symptoms: denies other symptoms Related Data Home Medications Medication Instructions Recorded Confirmed dabigatran etexilate 75 mg capsule 75 mg PO BID 06/13/21 Previous Rx's Medication Instructions Recorded ciprofloxacin HCl 250 mg tablet 250 mg PO Q12H #14 tab 08/16/20 metronidazole 500 mg tablet 500 mg PO Q12H #14 tab 08/16/20 (Flagyl) ondansetron HCl 4 mg tablet 4 mg PO Q8H PRN #10 tab 08/16/20 (Zofran) hydrocortisone 2.5 % topical cream 1 appl ME DAILY #30 g 05/26/21 with perineal applicator (Procto-Med HC) ibuprofen 600 mg tablet 600 mg PO Q8H PRN #15 tab 05/26/21 hydromorphone 2 mg tablet 2 mg PO Q8H PRN #10 tab 06/22/21 (Dilaudid) Allergies Allergy/AdvReac Type Severity Reaction Status Date / Time influenza virus vaccine, Allergy Severe GUILLIAN Verified 06/22/21 13:00 specific BARRE HX. [FLU VACCINE] tramadol [TRAMADOL] Allergy Severe SEIZURES Verified 06/22/21 13:00 acetaminophen [From PERCOCET] Allergy Intermediate ITCHING Verified 06/22/21 13:00 carbamazepine [From TEGRETOL] Allergy Intermediate HALLUCINATI Verified 06/22/21 13:00 ONS lamotrigine [From LAMICTAL] Allergy Intermediate ITCHING Verified 06/22/21 13:00 metoclopramide [From REGLAN] Allergy Intermediate ITCHY Verified 06/22/21 13:00 oxycodone [From PERCOCET] Allergy Intermediate ITCHING Verified 06/22/21 13:00 SEAFOOD Allergy Severe ANAPHYLAXIS Uncoded 05/26/21 11:24 Review of Systems Review of Systems Yes all other systems are reviewed and are negative Constitutional: Reports no additional constitutional complaints Reports system reviewed and no additional complaints, except as documented and Denies dysphagia Cardiovascular: Reports no additional cardiovascular complaints Gastrointestinal: Reports no additional gastrointestinal complaints, Denies dysphagia, Denies fecal incontinence, Denies diarrhea and Denies loose stools Allergic/Immunologic: Reports no additional allergic/immunologic complaints Physical Exam Vital Signs: Vital Signs: Last Vital Signs Temp 98.3 F 06/22/21 19:09 Pulse 75 06/22/21 19:09 Resp 16 06/22/21 19:09 BP 112/64 06/22/21 19:09 Pulse Ox 95 06/22/21 19:09 Body Mass Index 26.2 Const: General: cooperative Nutritional Appearance: average body habitus Orientation/consciousness: patient oriented x3 Limitations: no limitations HENMT: Head: Yes normal to inspection Face and sinus: Yes normal facial exam Mouth: Normal oral and palatal mucosa present and lip normal Throat: Yes posterior oropharynx normal Neck: Neck: Yes normal visual inspection, Yes full ROM and Yes no lymphadenopathy Chest: Chest palpation & inspection: normal inspection of the chest Resp: Effort & Inspection: normal respiratory effort Auscultation: clear to auscultation bilaterally Cardio: Jugular venous distension: no JVD Rate: regular rate Rhythm: regular rhythm GI: Inspection: Yes normal to inspection Palpation (GI): Soft to palpation, not firm, nontender and no guarding Back/Spine/Pelvis: Cervical Spine: normal cervical lordosis Skin: General skin exam: no rashes or lesions noted, elasticity normal and turgor normal Lesions: no lesions Rashes: no rashes Neuro: General: patient oriented x3 Procedures EJ/Peripheral Line Arm R: Time Out Performed: Yes Skin Cleansed in Sterile Fashion: Yes Size (gauge): 20 IV Secured and Dressing Applied: Yes Patient Tolerated Procedure: well Additional Comments: Difficult acces,cannulated left basilic vein under US with 20 nikki long catheter MDM - Abdominal Pain Lab Data Result diagrams: 06/22/21 13:55 06/22/21 13:55 Labs: Lab Results 06/22/21 06/22/21 06/22/21 Range/Units 13:55 13:55 13:55 WBC 8.7 (4.8-10.8) X10*3/uL RBC 4.53 L (4.60-5.80) X10*6/uL Hgb 12.9 L (14.0-18.0) g/dl Hct 40.0 L (42-52) % MCV 88.3 (80-98) fL MCH 28.5 (27.0-33.0) pg MCHC 32.3 (31.0-36.0) g/dl RDW 15.0 (11.0-16.0) % Plt Count 154 L (160-400) X10*3/uL MPV 9.3 L (9.4-12.4) fL Immature Gran % (Auto) 0.2 (0.0-0.4) % Neut % (Auto) 66.4 (45-73) % Lymph % (Auto) 24.7 (20-40) % [place] % (Auto) 8.4 (2-11) % Eos % (Auto) 0.1 (0-4) % Baso % (Auto) 0.2 (0-2) % Lymph # (Auto) 2.2 (1.2-4.9) X10*3/uL [place] # (Auto) 0.7 (0.1-1.2) X10*3/uL Eos # (Auto) 0.0 (0.0-0.4) X10*3/uL Baso # (Auto) 0.0 (0.0-0.2) X10*3/uL Abs Immat Gran (auto) 0.02 (0.00-0.03) X10*3/uL Absolute Neuts (auto) 5.8 (2.0-8.3) X10*3/uL Absolute Nucleated RBC 0.000 (0.0-0.012) X10*3/uL Nucleated RBC % (auto) 0.0 (0.0-0.2) /100WBC Sodium 135 (135-145) mmol/L Potassium 4.4 (3.3-5.1) mmol/L Chloride 105 (96-108) mmol/L Carbon Dioxide 22 (22-29) mmol/L Anion Gap 12 (12-20) BUN 8 L (9-16) mg/dL Creatinine 1.18 (0.5-1.4) mg/dL Estim Creat Clear Calc 77.3 Estimated GFR > 60 Random Glucose 180 H (60-115) mg/dL Calcium 8.6 (8.4-10.2) mg/dL Troponin I High Sens < 3.5 (<3.5-35.0) ng/L Imaging Data CT scan - abdomen: Radiologist's impression: GASTROINTESTINAL TRACT: Patient status post partial sigmoid resection with a rectosigmoid suture line. No evidence of recurrent mass. Scattered colonic diverticula noted without diverticulitis. The small and large bowel are unremarkable. Surgical clips are noted in the area of the appendix which is not seen.? ABDOMINAL WALL: No significant hernia is appreciated.? LYMPH NODES: No retroperitoneal lymphadenopathy. VASCULAR: An aortobiiliac stent graft is present. No large aneurysm sac or endoleak is seen. PELVIC VISCERA: Prostate and seminal vesicles appear normal.? OSSEOUS STRUCTURES: Unremarkable.? CT/CT abdomen pelvis w con IMPRESSION: A cause for the patient's abdominal pain is not found. 1.? Incidental note made of calcified splenic and pulmonary granulomas, cholecystectomy, appendectomy, sigmoid resection and aortobiiliac stent graft.? 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 Prescriptions: New hydromorphone [Dilaudid] 2 mg tablet 2 mg PO Q8H PRN (Reason: pain) Qty: 10 RF: 0 No Action metronidazole [Flagyl] 500 mg tablet 500 mg PO Q12H Qty: 14 RF: 0 ciprofloxacin HCl 250 mg tablet 250 mg PO Q12H Qty: 14 RF: 0 ondansetron HCl [Zofran] 4 mg tablet 4 mg PO Q8H PRN (Reason: nausea and vomiting) Qty: 10 RF: 0 hydrocortisone [Procto-Med HC] 2.5 % cream with perineal applicator 1 appl ME DAILY Qty: 30 RF: 0 ibuprofen 600 mg tablet 600 mg PO Q8H PRN (Reason: pain) Qty: 15 RF: 0 dabigatran etexilate 75 mg capsule 75 mg PO BID RF: 0 Referrals: Thomas Kam PA [Primary Care Provider] - 2 days Interventions: ED Discharge Assessment Last Done: 06/22/21 19:31 Discharge Date/Time: 06/22/21 19:31 [facility] Past Medical History Medical History COVID-19 Diabetes DVT (deep venous thrombosis) HIV (human immunodeficiency virus infection) Left sided abdominal pain Seizure disorder Surgical History H/O fasciotomy S/P AAA (abdominal aortic aneurysm) repair S/P IVC filter Status post cholecystectomy Status post laparoscopic appendectomy Social History Social History Alcohol intake: unknown Patient Tobacco Use Status: Former Tobacco user Use of substances other than those prescribed or required for medical reasons: Unknown Advance Directives: No
[2021-06-22 17:08] VITALS: BP 103/66; PULSE 85; RESP 16; O2SAT 96
[2021-06-22] MEDS: 0.9 % Sodium Chloride 1,000 ML 999 ML IVCONT (17:24)
[2021-06-22] MEDS: Morphine Sulfate 4 MG/ML CARTRIDGE IVPUSH (17:24)
[2021-06-22] MEDS: ondansetron HCL 4 MG/2 ML VIAL IVPUSH (17:24)
[2021-06-22] MEDS: iohexoL 350 MG/ML 100 ML INFUS..BTL IV (17:50)
[2021-06-22] MEDS: HYDROmorphone HCl 0.5 MG/0.5 ML SYRINGE IVPUSH (18:38)
[2021-06-22 19:09] VITALS: BP 112/64; PULSE 75; RESP 16; TEMP 36.8; O2SAT 95
== END 2021-06-22 19:31 | disposition home or self-care (01) ==
PROVIDERS: Emergency Provider Emergency Medicine; PCP Physician Assistant
DX: R10.9 Unspecified abdominal pain (principal); E11.9 Type 2 diabetes mellitus without complications; Z21 Asymptomatic human immunodeficiency virus [HIV] infection status; G40.909 Epilepsy, unspecified, not intractable, without status epilepticus; Z86.718 Personal history of other venous thrombosis and embolism; Z79.01 Long term (current) use of anticoagulants
CPT/HCPCS: 36410; 36415; 71045; 74177; 80048; 84484; 85025; 93005; 96361; 96374; 96375; 99285; J1170; J2270; J2405; Q9967

== ENCOUNTER 2021-07-12 14:12 | Outpatient (REF) | payer MEDICARE, MEDICAID, SELFPAY ==
--- NOTE | ~2021-07-12 | CT_ITS ---
EXAMINATION: CT ABDOMEN AND PELVIS WITHOUT CONTRAST CLINICAL INFORMATION: Abdominal pain COMPARISON: CT abdomen pelvis 06/22/2021. TECHNIQUE: Multidetector volumetric imaging was performed from the superior aspect of the liver through the pubic symphysis. Sagittal and coronal reformatted images were obtained on the technologist's workstation. This CT examination was performed using dose optimization techniques as appropriate, variously including the following: *Automated exposure control *Adjustment of mA and/or kV according to patient size (this includes techniques or standardized protocols for targeted exams where dose is matched to indication/reason for exam; i.e. extremities or head) *Use of iterative reconstruction technique DLP: 502 mGy-cm FINDINGS: LUNG BASES: The visualized lung bases are unremarkable. The heart size is normal LIVER, GALLBLADDER, AND BILIARY TREE: The liver is normal in size, shape, and attenuation. No focal hepatic lesion or biliary ductal dilatation is present. The gallbladder has been surgically removed. PANCREAS: Unremarkable. SPLEEN: The spleen is unremarkable except for a punctate calcified granuloma. ADRENAL GLANDS: Unremarkable. KIDNEYS AND URETERS: The kidneys are normal in size, shape, and attenuation. No hydronephrosis, hydroureter, or calculi seen. No perinephric stranding. BLADDER: Unremarkable. GASTROINTESTINAL TRACT: There are surgical marisa in the right lower quadrant likely from previous appendectomy. The small bowel loops are unremarkable. There is sigmoid resection with a rectosigmoid suture line. No proximal colonic distention. No recurrent mass, free air or free fluid. ABDOMINAL WALL: No significant hernia is appreciated. LYMPH NODES: Normal. VASCULAR: There is aortobiiliac stent graft in place. It appears unremarkable. PELVIC VISCERA: The prostate gland is unremarkable. OSSEOUS STRUCTURES: Mild straightening of lumbar lordosis no lytic or sclerotic process seen. CT/CT abdomen pelvis wo con IMPRESSION: No acute intra-abdominal process seen. Postsurgical changes following resection with sigmoid suture line. Evidence of previous appendectomy and cholecystectomy..
== END 2021-07-12 14:13 | disposition home or self-care (01) ==
LOC: HO.CT 14:12
PROVIDERS: PCP Physician Assistant; Visit Provider Surgery
DX: R10.9 Unspecified abdominal pain (principal)
CPT/HCPCS: 74176

== ENCOUNTER → 2021-07-14 10:40 | Outpatient (BNVA) | payer MEDICARE, MEDICAID, SELFPAY | PROVIDERS: PCP Physician Assistant; Referring Provider Physician Assistant; Visit Provider Surgery | DX: R10.9 Unspecified abdominal pain (principal) | CPT/HCPCS: 99212 ==

== ENCOUNTER 2021-08-19 11:36 | Emergency (ER) | payer MEDICARE, MEDICAID, SELFPAY ==
--- NOTE | ~2021-08-19 | US_ITS ---
EXAMINATION: US VENOUS ULTRASOUND WITH DOPPLER LOWER EXTREMITY, LEFT CLINICAL INFORMATION: Left leg pain and swelling COMPARISON: History of chronic DVT seen on April 2021 TECHNIQUE: Ultrasound of the deep veins is performed from the hip to the calf with compression sonography and color and pulse Doppler assessment. Spectral analysis with color-flow imaging is performed. FINDINGS: There is normal venous compression and respiratory variation and augmented flow. Within the distal superficial femoral vein there is wall thickening present with the appearance of recannulated thrombus. The visualized common femoral vein, profunda femoral vein, popliteal vein, and the trifurcation region shows no evidence of deep venous thrombosis. There is no significant popliteal fossa cyst. No popliteal artery aneurysm. If the patient's symptoms persist, followup ultrasound in 5 days 7 days might be of value to exclude proximal propagation from a non-visualized calf vein. US/US venous duplex LE LT IMPRESSION: No acute DVT demonstrated in the left lower extremity. Evidence for chronic deep venous thrombosis.
[2021-08-19 11:51] VITALS: BP 111/73; PULSE 99; RESP 18; TEMP 37.1; O2SAT 99; BMI 27.6
--- NOTE | 2021-08-19 12:38 | ED_ITS ---
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 No known injury or trauma. No associated swelling, redness, warmth, numbness, tingling. Patient tells me the pain is worsened with movement of the upper extremities especially if he males a fist or shakes hands with someone else. Patient is also complaining of left ank le and calf pain since July 27. Patient tells me that he flew home on a plane from [place] and landed July 27. After landing he started to feel some pain in his ankle and calf. He feels like there might be some slight swelling. He denies any redness, warmth, fevers, chills. No known injury or trauma. He tells me he has been compliant with taking his Pradaxa every day and has not missed any doses. Related Data Home Medications Medication Instructions Recorded Confirmed dabigatran etexilate 75 mg capsule 75 mg PO BID 06/13/21 07/14/21 Previous Rx's Medication Instructions Recorded ciprofloxacin HCl 250 mg tablet 250 mg PO Q12H #14 tab 08/16/20 metronidazole 500 mg tablet 500 mg PO Q12H #14 tab 08/16/20 (Flagyl) ondansetron HCl 4 mg tablet 4 mg PO Q8H PRN #10 tab 08/16/20 (Zofran) hydrocortisone 2.5 % topical cream 1 appl MO DAILY #30 g 05/26/21 with perineal applicator (Procto-Med HC) ibuprofen 600 mg tablet 600 mg PO Q8H PRN #15 tab 05/26/21 hydromorphone 2 mg tablet 2 mg PO Q8H PRN #10 tab 06/22/21 (Dilaudid) Allergies Allergy/AdvReac Type Severity Reaction Status Date / Time influenza virus vaccine, Allergy Severe GUILLIAN Verified 08/19/21 11:54 specific BARRE HX. [FLU VACCINE] tramadol [TRAMADOL] Allergy Severe SEIZURES Verified 08/19/21 11:54 acetaminophen [From PERCOCET] Allergy Intermediate ITCHING Verified 08/19/21 11:54 carbamazepine [From TEGRETOL] Allergy Intermediate HALLUCINATI Verified 08/19/21 11:54 ONS lamotrigine [From LAMICTAL] Allergy Intermediate ITCHING Verified 08/19/21 11:54 metoclopramide [From REGLAN] Allergy Intermediate ITCHY Verified 08/19/21 11:54 oxycodone [From PERCOCET] Allergy Intermediate ITCHING Verified 08/19/21 11:54 SEAFOOD Allergy Severe ANAPHYLAXIS Uncoded 05/26/21 11:24 Review of Systems Review of Systems: Yes all other systems are reviewed and are negative Constitutional: Constitutional: Reports no additional constitutional complaints, Denies body ache(s), Denies chills, Denies fever(s), Denies headache(s) and Denies weakness Eyes: Eyes: Reports no additional eye complaints and Denies change in vision ENT: Reports system reviewed and no additional complaints, except as documented, Denies dizziness, Denies headache(s), Denies nasal congestion, Denies nasal discharge and Denies neck pain Cardiovascular: Cardiovascular: Reports no additional cardiovascular complaints, Denies chest pain, Denies leg edema and Denies dyspnea Respiratory: Respiratory: Reports no additional respiratory complaints, Denies cough and Denies dyspnea Gastrointestinal: Gastrointestinal: Reports no additional gastrointestinal complaints, Denies abdominal pain, Denies diarrhea, Denies nausea and Denies vomiting Genitourinary: Genitourinary: Denies urinary incontinence Musculoskeletal: Musculoskeletal: Reports no additional musculoskeletal complaints, Denies back pain, Reports arthralgias, Denies joint swelling, Denies neck pain, Denies numbness and Denies tingling Integumentary/Breasts: Skin/Breast: Reports system reviewed and no additional complaints, except as docu and Denies rash Neurologic: Reports system reviewed and no additional complaints, except as documented, Denies Abnormal speech present, Denies dizziness, Denies headache(s), Denies numbness, Denies tingling and Denies weakness PMFSH Past Medical History Attestation statement: The following information was validated with the patient. Source: old records reviewed and nursing notes reviewed Medical History COVID-19 Diabetes DVT (deep venous thrombosis) HIV (human immunodeficiency virus infection) Left sided abdominal pain Seizure disorder Surgical History H/O fasciotomy S/P AAA (abdominal aortic aneurysm) repair S/P IVC filter Status post cholecystectomy Status post laparoscopic appendectomy Social History Social History Alcohol intake: unknown Patient Tobacco Use Status: Former Tobacco user Advance Directives: No Advance Directives Information Provided: No Physical Exam Vital Signs: Vital Signs: Last Vital Signs Temp 98.7 F 08/19/21 11:51 Pulse 99 08/19/21 11:51 Resp 18 08/19/21 11:51 BP 111/73 08/19/21 11:51 Pulse Ox 99 08/19/21 11:51 BMI result Body Mass Index 27.6 Const: General: cooperative, healthy appearing, comfortable and no acute distress Orientation/consciousness: patient oriented x3 Limitations: no limitations HENMT: Head: Yes normal to inspection Ears: hearing grossly normal bilaterally General nose exam: Normal external nose present Face and sinus: Yes normal facial exam Mouth: Normal oral and palatal mucosa present Throat: Yes posterior oropharynx normal Eyes: General: appearance normal, both eyes and all related structures Pupils: Equal, round and reactive pupils present Neck: Neck: Yes normal visual inspection Chest: Chest palpation & inspection: normal inspection of the chest Resp: Effort & Inspection: normal respiratory effort Auscultation: clear to auscultation bilaterally Cardio: Rate: regular rate Rhythm: regular rhythm Peripheral pulses: Peripheral pulses 2+ throughout GI: Inspection: Yes normal to inspection Palpation (GI): Soft to palpation and nontender Auscultation: normal bowel sounds Back/Spine/Pelvis: Thoracic/Lumbar Spine: thoracic and lumbar spine normal to inspection Skin: General skin exam: no rashes or lesions noted Neuro: General: patient oriented x3, no focal motor deficits and normal sensation to monofilament Cranial nerves: Yes Equal, round and reactive pupils present Cognition (Neuro): normal cognition Speech: No Abnormal speech present Gait exam (Neuro): Normal gait present Motor exam (neuro): 5/5 motor strength present throughout Extrem: Other: No warmth, redness or swelling appreciated to the left calf. There are distal pulses palpated. Full range of motion of affected joint. Normal sensation. Normal cap refill. There is tenderness the bilateral medial aspects of both elbows. Pain is worsened over the medial epicondyle with supination of the forearm and extension of the wrist. There is no appreciable swelling, redness, warmth. Sensation is intact. Distal pulses palpated General: Yes normal to inspection, Yes no pedal edema and Yes calf tenderness (Left calf-worsened with movement of the foot) Course Course Course Narrative: 45-year-old male here with multiple complaints. 1. Bilateral medial elbow pain for 1-2 months with no known injury or trauma. On exam the patient has tenderness over the medial epicondyle with supination of the forearms and hyper extension of the wrist consistent with medial epicondylitis. Full range of motion. No bony abnormality. No swelling or redness or warmth concerning for cellulitis. 2. Left calf and ankle pain after landing from a flight from [place]. Patient has history of DVT in his compliant with taking his Pradaxa and has not missed any doses. This is been going on since July 27. On exam there is no appreciable swelling, warmth, redness. There is some tenderness of the posterior calf which worsened with dorsiflexion of foot. Will check ultrasound. 1500-I reviewed the diagnosis of epicondylitis with the patient and exercises he can do at home. His ultrasound shows no acute DVT. There is a chronic DVT which is unchanged seen on ultrasound. Discussed this with the patient. Reviewed worrisome signs and symptoms of when to return to the emergency department. Comfortable discharge home. MDM - Extremity (Nontraumatic) Imaging Data Venous US: Attestation: I personally reviewed and interpreted this imaging study as follows: Radiologist's impression: [address] [address] Ultrasound Report Signed Patient: Jerome Smith MR#: [id number] : 1975 Acct:[id number] Age/Sex: 45 / M ADM Date: 08/19/21 Loc: .ED Attending Dr: Ordering Physician: Rachna Fleming NP Date of Service: 08/19/21 Procedure(s): US venous duplex LE Accession Number(s): [id number] cc: Rachna Fleming HISTOLOGY MANAGER~ EXAMINATION:? US VENOUS ULTRASOUND WITH DOPPLER LOWER EXTREMITY, LEFT CLINICAL INFORMATION:? Left leg pain and swelling COMPARISON:? History of chronic DVT seen on April 2021 TECHNIQUE: Ultrasound of the deep veins is performed from the hip to the calf with compression sonography and color and pulse Doppler assessment. Spectral analysis with color-flow imaging is performed. FINDINGS: There is normal venous compression and respiratory variation and augmented flow. Within the distal superficial femoral vein there is wall thickening present with the appearance of recannulated thrombus. The visualized common femoral vein, profunda femoral vein, popliteal vein, and the trifurcation region shows no evidence of deep venous thrombosis. ? There is no significant popliteal fossa cyst. No popliteal artery aneurysm. If the patient's symptoms persist, followup ultrasound in 5 days 7 days might be of value to exclude proximal propagation from a non-visualized calf vein. US/US venous duplex LE LT IMPRESSION: No acute DVT demonstrated in the left lower extremity. Evidence for chronic deep venous thrombosis. Discharge Plan Discharge Clinical Impression: Bilateral medial epicondylitis of elbow joint, Leg pain Patient Disposition: Home, Self-Care Instructions: Tennis Elbow (ED), Leg Pain (ED) Additional Instructions: Heat or ice to the area Gentle stretching Tylenol for pain Your ultrasound shows NO new blood clot Prescriptions: No Action metronidazole [Flagyl] 500 mg tablet 500 mg PO Q12H Qty: 14 RF: 0 ciprofloxacin HCl 250 mg tablet 250 mg PO Q12H Qty: 14 RF: 0 ondansetron HCl [Zofran] 4 mg tablet 4 mg PO Q8H PRN (Reason: nausea and vomiting) Qty: 10 RF: 0 hydrocortisone [Procto-Med HC] 2.5 % cream with perineal applicator 1 appl MO DAILY Qty: 30 RF: 0 ibuprofen 600 mg tablet 600 mg PO Q8H PRN (Reason: pain) Qty: 15 RF: 0 hydromorphone [Dilaudid] 2 mg tablet 2 mg PO Q8H PRN (Reason: pain) Qty: 10 RF: 0 dabigatran etexilate 75 mg capsule 75 mg PO BID RF: 0 Referrals: Physician,Unknown J [Primary Care Provider] - 2 days Interventions: ED Discharge Assessment Last Done: 08/19/21 15:04 Discharge Date/Time: 08/19/21 15:04 Print Language: Ukrainian
== END 2021-08-19 15:04 | disposition home or self-care (01) ==
PROVIDERS: Emergency Provider Emergency Medicine
DX: M77.02 Medial epicondylitis, left elbow (principal); M77.01 Medial epicondylitis, right elbow; M25.522 Pain in left elbow; M25.521 Pain in right elbow; M25.572 Pain in left ankle and joints of left foot; M79.662 Pain in left lower leg; R22.42 Localized swelling, mass and lump, left lower limb; E11.9 Type 2 diabetes mellitus without complications; B20 Human immunodeficiency virus [HIV] disease; Z86.718 Personal history of other venous thrombosis and embolism; Z79.01 Long term (current) use of anticoagulants
CPT/HCPCS: 93971; 99283; 99284

== ENCOUNTER 2022-01-26 10:54 | Emergency (ER) | payer MEDICARE, MEDICAID, SELFPAY ==
--- NOTE | ~2022-01-26 | US_ITS ---
EXAMINATION: US VENOUS ULTRASOUND WITH DOPPLER LOWER EXTREMITY, BILATERAL CLINICAL INFORMATION: History of clots now with worsening pain. COMPARISON: Left lower extremity duplex study 08/19/2021 and bilateral lower extremity ultrasound 05/13/2021.. TECHNIQUE: Ultrasound of the deep veins is performed from the hip to the calf with compression sonography and color and pulse Doppler assessment. Spectral analysis with color-flow imaging is performed. FINDINGS: RIGHT: There is normal venous compression and respiratory variation and augmented flow. The visualized common femoral vein, superficial femoral vein, profunda femoral vein, popliteal vein, and the trifurcation region shows no evidence of deep venous thrombosis. There is no significant popliteal fossa cyst. There is a popliteal artery completely thrombosed measuring 4.8 x 2.4 x 2.6 cm. LEFT: There is normal venous compression and respiratory variation and augmented flow. Within the distal superficial femoral vein there is mild thickening with a recannulated thrombus. The visualized common femoral vein, superficial femoral vein, profunda femoral vein, popliteal vein, and the trifurcation region shows no evidence of deep venous thrombosis. There is no significant popliteal fossa cyst. If the patient's symptoms persist, followup ultrasound in 5 days 7 days might be of value to exclude proximal propagation from a non-visualized calf vein. US/US venous duplex LE BI IMPRESSION: No DVT demonstrated in the bilateral lower extremity. There is chronic DVT in the left distal superficial femoral vein unchanged since 08/19/2021. 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 Previously it measured 4.1 x 2.4 x 2.1 cm.
--- NOTE | ~2022-01-26 | CT_ITS ---
EXAMINATION: CT ABDOMEN AND PELVIS WITHOUT CONTRAST CLINICAL INFORMATION: Diffuse abdominal pain COMPARISON: CT abdomen and pelvis 07/12/2021. TECHNIQUE: Multidetector volumetric imaging was performed from the superior aspect of the liver through the pubic symphysis. Sagittal and coronal reformatted images were obtained on the technologist's workstation. This CT examination was performed using dose optimization techniques as appropriate, variously including the following: *Automated exposure control *Adjustment of mA and/or kV according to patient size (this includes techniques or standardized protocols for targeted exams where dose is matched to indication/reason for exam; i.e. extremities or head) *Use of iterative reconstruction technique DLP: 599 mGy-cm FINDINGS: LUNG BASES: The lung bases are clear. The heart size is normal. There is punctate right posterior diaphragmatic calcification.. LIVER, GALLBLADDER, AND BILIARY TREE: The liver is normal in size, shape, and attenuation. No focal hepatic lesion or biliary ductal dilatation is present. The gallbladder has been surgically removed. PANCREAS: The head of the pancreas is fatty infiltrated. Rest of the pancreas is homogeneous in density and appears unremarkable. No peripancreatic fluid collection or fat stranding seen. SPLEEN: There are several calcifications seen in the normal sized spleen and density. ADRENAL GLANDS: Unremarkable. KIDNEYS AND URETERS: The kidneys are normal in size, shape, and attenuation. No hydronephrosis, hydroureter, or calculi seen. No perinephric stranding. BLADDER: The bladder is nondistended. However there is mild bladder wall thickening without any radiopaque calculi. GASTROINTESTINAL TRACT: There are postsurgical changes of the sigmoid colon with widely patent lumen. Rest the colon is nondistended and appears unremarkable. There are surgical marisa in the right lower quadrant likely from previous appendectomy. The stomach is nondistended and appears unremarkable. ABDOMINAL WALL: There is a small supraumbilical midline hernia containing intraperitoneal fat with neck measuring 1.5 cm wide. Previously neck measures 9 mm. LYMPH NODES: Normal. VASCULAR: There is aortoiliac stent graft at or below the renal arteries extending inferiorly into the common iliac arteries. The size of the graft is stable. PELVIC VISCERA: There is mild nonspecific thickening of the rectum as before with mild fat stranding somewhat similar to previous study. The prostate gland is mildly enlarged. There are small shotty inguinal lymph nodes and postsurgical marisa in the left groin. OSSEOUS STRUCTURES: There is mild straightening of lumbar lordosis. No lytic or sclerotic process seen. CT/CT abdomen pelvis wo con IMPRESSION: No acute intra-abdominal process seen. Small supraumbilical umbilical midline abdominal hernia containing fat with no major change. Postcholecystectomy, post appendectomy and post sigmoid surgical changes are noted and stable. Aortoiliac graft stent is stable. There is no aneurysm seen. Fleischner guidelines were followed.
[2022-01-26 11:14] VITALS: BP 126/90; PULSE 108; RESP 18; TEMP 37.1; O2SAT 97; BMI 27.3
[2022-01-26 12:00] LABS: MANUAL DIFF FLAG NO
[2022-01-26 12:03] LABS: Basophils Percent Auto 0.7 % (0-2); Eosinophils Percent Auto 0.4 % (0-4); Hematocrit 39.6 % (42.0-52.0); Hemoglobin 13.1 g/dl (14.0-18.0); Imm Gran Abs Auto 0.02 X10*3/uL (0.00-0.03); Imm Gran Pct Auto 0.4 % (0.0-0.4); Lymphocytes Absolute Auto 2.3 X10*3/uL (1.2-4.9); Lymphocytes Percent Auto 39.6 % (20-40); Mean Corpuscular HGB Conc 33.1 g/dl (31.0-36.0); Mean Corpuscular Hemoglobin 29.9 pg (27.0-33.0); Mean Corpuscular Volume 90.4 fL (80.0-98.0); Mean Platelet Volume 9.4 fL (9.4-12.4); Monocytes Absolute Auto 0.3 X10*3/uL (0.1-1.2); Neutrophils Percent Auto 52.9 % (45-73); Platelet Count 171 X10*3/uL (160-400); Red Blood Count 4.38 X10*6/uL (4.60-5.80); Red Cell Distribution Width 15.7 % (11.0-16.0); White Blood Count 5.7 X10*3/uL (4.8-10.8)
[2022-01-26 12:23] LABS: Alanine Aminotransferase 39 U/L (0-40); Albumin Level 3.8 g/dL (3.5-5.0); Alkaline Phosphatase 151 U/L (39-117); Anion Gap 13 (12-20); Aspartate Amino Transferase 37 U/L (5-37); Bilirubin Direct 0.2 mg/dL (0.0-0.5); Bilirubin Total 0.5 mg/dL (0.0-1.0); Blood Urea Nitrogen 9 mg/dL (9-16); Calcium 8.8 mg/dL (8.4-10.2); Carbon Dioxide 19 mmol/L (22-29); Chloride 104 mmol/L (96-108); Creatinine Clr Calc Pharmacy 75.9; Estimated Glomerular Filt Rate > 60; Glucose Random 207 mg/dL (60-115); Lipase 15 U/L (8-78); Sodium 132 mmol/L (135-145); Total Protein 9.5 g/dL (6.5-8.0)
[2022-01-26 12:25] LABS: COVID-19 Test Negative (Negative); IDNOW Serial# 16C4AD1C; Influenza A Negative (Negative); Influenza B2 Negative (Negative)
--- NOTE | 2022-01-26 17:32 | ED_ITS ---
HPI - Abdominal Pain General Chief Complaint: Abdominal Pain <ANA Dasilva - Last Filed: 01/26/22 18:51> Stated Complaint: abd and leg pain <ANA Dasilva Last Filed: 01/26/22 18:51> Time Seen by Provider: 01/26/22 17:13 <ANA Dasilva Last Filed: 01/26/22 18:51> Source: patient and family <ANA Dasilva Last Filed: 01/26/22 18:51> Mode of arrival: ambulatory <ANA Dasilva Last Filed: 01/26/22 18:51> Limitations: language barrier ( Qatari-speaking) <ANA Dasilva Last Filed: 01/26/22 18:51> History of Present Illness HPI narrative: 46 Year old male male with a past medical history of recurrent bilateral DVT's on Lovenox (s/p Pradaxa failure) taking as prescribed, s/p IVC filter placement, seizure disorder, HIV on HAART, DM2, hx bilateral LE fasciotomies, hx AAA s/p endovascular repair 2016 in [place], hx diverticulitis s/p resection, s/p appendectomy and cholecystectomy and chronic abdominal pain who presents to the ER with?1 week of diffuse abdominal pain with associated nausea. He reports he also has worsening lower extremity pain and is concerned for worsening clots. he denies any fevers, chills, dizziness, headaches, neck pain / stiffness, trouble swallowing or breathing, chest pain or shortness of breath, cough, dyspnea on exertion, orthopnea, palpitations, paresthesias, black or bloody emesis, black or bloody sputum production, sputum production, radiation of the abdominal pain, back pain, dysuria, hematuria, abnormal penile discharge, rashes, recent travel or sick contacts, recent falls or trauma or any other symptoms complaints or concerns at this time. <ANA Dasilva Last Filed: 01/26/22 18:51> MD elicited complaint: abdominal pain and other ( And bilateral lower extremity pain) <ANA Dasilva Last Filed: 01/26/22 18:51> Pertinent past history: diverticulitis, HIV and other ( see above) <ANA Dasilva Last Filed: 01/26/22 18:51> Onset (ago): week(s) (1) <ANA Dasilva - Last Filed: 01/26/22 18:51> Pain Consistency: constant <ANA Dasilva - Last Filed: 01/26/22 18:51> Location: diffuse <ANA Dasilva - Last Filed: 01/26/22 18:51> Severity: severe <ANA Dasilva - Last Filed: 01/26/22 18:51> Pain scale (0-10): 10 <ANA Dasilva - Last Filed: 01/26/22 18:51> Quality: aching <ANA Dasilva - Last Filed: 01/26/22 18:51> Radiation: none <ANA Dasilva - Last Filed: 01/26/22 18:51> Migration to: no migration <ANA Dasilva - Last Filed: 01/26/22 18:51> Exacerbating factors: nothing <ANA Dasilva - Last Filed: 01/26/22 18:51> Relieving factors: nothing <ANA Dasilva - Last Filed: 01/26/22 18:51> Associated symptoms: nausea and other ( lower extremity pain) <ANA Dasilva - Last Filed: 01/26/22 18:51> Related Data Home Medications: Home Medications Medication Instructions Recorded Confirmed dabigatran etexilate 75 mg capsule 75 mg PO BID 06/13/21 07/14/21 Previous Rx's Medication Instructions Recorded ciprofloxacin HCl 250 mg tablet 250 mg PO Q12H #14 tab 08/16/20 metronidazole 500 mg tablet 500 mg PO Q12H #14 tab 08/16/20 (Flagyl) ondansetron HCl 4 mg tablet 4 mg PO Q8H PRN #10 tab 08/16/20 (Zofran) hydrocortisone 2.5 % topical cream 1 appl IA DAILY #30 g 05/26/21 with perineal applicator (Procto-Med HC) ibuprofen 600 mg tablet 600 mg PO Q8H PRN #15 tab 05/26/21 hydromorphone 2 mg tablet 2 mg PO Q8H PRN #10 tab 06/22/21 (Dilaudid) <ANA Dasilva Last Filed: 01/26/22 18:51> Allergies/Adverse Reactions: Allergies Allergy/AdvReac Type Severity Reaction Status Date / Time influenza virus vaccine, Allergy Severe GUILLIAN Verified 08/19/21 11:54 specific BARRE HX. [FLU VACCINE] tramadol [TRAMADOL] Allergy Severe SEIZURES Verified 08/19/21 11:54 acetaminophen [From PERCOCET] Allergy Intermediate ITCHING Verified 08/19/21 11 :54 carbamazepine [From TEGRETOL] Allergy Intermediate HALLUCINATI Verified 08/19/21 11:54 ONS lamotrigine [From LAMICTAL] Allergy Intermediate ITCHING Verified 08/19/21 11:54 metoclopramide [From REGLAN] Allergy Intermediate ITCHY Verified 08/19/21 11:54 oxycodone [From PERCOCET] Allergy Intermediate ITCHING Verified 08/19/21 11:54 SEAFOOD Allergy Severe ANAPHYLAXIS Uncoded 05/26/21 11:24 <ANA Dasilva - Last Filed: 01/26/22 18:51> Review of Systems Review of Systems Constitutional : No Weight loss, No Fever, No Chills, No Night Sweats, No Fatigue, No Malaise ENT/Mouth : No Hearing loss, No Ear Pain, No Nasal Congestion, No Sinus Pain, No Hoarseness, No sore throat, No Rhinorrhea, No Swallowing Difficulty Eyes: No Eye Pain, No Swelling, No Redness, No Foreign Body, No Discharge, No Vision Changes Cardiovascular : No Chest Pain, No SOB, No Dyspnea on Exertion, No Orthopnea, No Edema, No Palpitations Respiratory : No Cough, No Sputum, No Wheezing, No Smoke Exposure, No Dyspnea Gastrointestinal : + Nausea, + abdominal pain, No Vomiting, No Diarrhea, No Constipation, No Hematochezia, No Melena Genitourinary : no irregular bleeding, No Dysuria, No Urinary Frequency, No Hematuria, No Urinary Incontinence, No Urgency, No Flank Pain, No Urinary Flow Changes, No Hesitancy Musculoskeletal : + worsening lower extremity pain bilaterally, No joint pain, No Myalgias, No Joint Swelling Skin : No Skin Lesions, No rash Neuro : No Weakness, No Numbness, No Paresthesias, No Loss of Consciousness, No Dizziness, No Headache Psych : No Anxiety/Panic, No Depression, No SI/HI/AH/VH, No Social Issues, Heme/Lymph: No Bruising, No Bleeding,No Lymphadenopathy Endocrine : No Polyuria, No Polydipsia, No Temperature Intolerance <ANA Dasilva - Last Filed: 01/26/22 18:51> Yes all other systems are reviewed and are negative <ANA Dasilva - Last Filed: 01/26/22 18:51> [facility] Past Medical History Attestation statement: The following information was validated with the patient. <ANA Dasilva - Last Filed: 01/26/22 18:51> Source: old records reviewed, obtained from family and nursing notes reviewed <ANA Dasilva Last Filed: 01/26/22 18:51> Medical History: Medical History COVID-19 Diabetes DVT (deep venous thrombosis) HIV (human immunodeficiency virus infection) Left sided abdominal pain Seizure disorder <ANA Dasilva Last Filed: 01/26/22 18:51> Surgical History: Surgical History H/O fasciotomy S/P AAA (abdominal aortic aneurysm) repair S/P IVC filter Status post cholecystectomy Status post laparoscopic appendectomy <ANA Dasilva Last Filed: 01/26/22 18:51> Social History Social History: Social History Alcohol intake: unknown Patient Tobacco Use Status: Former Tobacco user Advance Directives: No Advance Directives Information Provided: No <ANA Dasilva Last Filed: 01/26/22 18:51> Physical Exam ED Vital Signs: Vital Signs - 24 hr 01/26/22 11:14 Temperature 98.7 F Pulse Rate 108 H Respiratory Rate 18 Blood Pressure 126/90 H Pulse Oximetry 97 BMI result Body Mass Index 27.3 vital signs have been reviewed as normal and appeared to be correct. Blood pressure 126/90. Heart rate 108 Respiration rate normal. Temperature normal. Oxygen saturation normal. <ANA Dasilva Last Filed: 01/26/22 18:51> Appearance: Alert. Oriented X3. No acute distress. Head: Normal external exam. Normocephalic. Atraumatic. Eyes: PERRLA. EOMI. Conjunctiva and sclera normal. Eyelids normal. ENT: Pharynx normal. Uvula midline. Moist mucous membranes. No lesions/ulcerations or masses noted on the tongue. Normal voice. No trismus noted. No drooling noted. No muffled voice noted. Neck: Normal inspection. Neck supple. FROM. No adenopathy. Thyroid Normal. No meningeal signs. No neck mass noted. CVS: Normal heart rate and rhythm. Heart sound normal. Pulses normal throughout. No murmurs/rales/gallops. Respiratory: No respiratory distress. Painless inspiration. Breath sounds normal. No wheezes/rales/rhonchi noted. Chest nontender. No crepitus is noted. No signs of trauma noted. No accessory muscle usage noted or decreased air movement noted. No signs of trauma. Abdomen: Soft and moderate tenderness diffusely with guarding. Bowel sounds normal in all 4 quadrants. No distention noted. No organomegaly noted. No visible injury noted. Negative Rovsing's. Negative psoas sign. Negative obturator's sign. Negative Davila sign. Back: No CVA tenderness. Full range of motion noted. Nontender. No signs of trauma. Patient neuro intact bilaterally and distally on all 4 extremities. Patient's reflexes intact bilaterally and distally on all 4 extremities. No rashes/lesion/induration/fluctuance or signs of infection noted. Skin: Skin warm and dry. Normal skin color. Normal skin turgor. No rashes/lesions/lacerations noted. Extremities: Patient reports pain to lower extremity and bilateral calf tenderness. Although no lower extremity edema. No rashes are noted. Extremiti es exhibit normal range of motion and nontender. Neuro: Oriented X 3. No motor deficit. No sensory deficit. Reflexes normal. Normal steady gait. No focal neuro deficits noted. CN's II-XII intact bilaterally? Vascular: + radial pulses/+ 2 distal pedal pulses/+2 dorsalis pedis b/l. Normal cap refill. No cyanosis noted to upper extremity nails and lower extremity toes nails. <ANA Dasilva - Last Filed: 01/26/22 18:51> Course Course Course Narrative: 17:25pm - 46 Year old male male Presenting to the ER with?1 week of diffuse abdominal pain with associated nausea. He reports he also has worsening lower extremity pain and is concerned for worsening clots. Labs reviewed and patient mild baseline anemia improved when compared to prior. Sodium 132. Carbon dioxide 19. Random glucose stool 7. Alkaline phosphate 151 which is chronic. Total protein 9.5. Otherwise all other labs are within normal limits. Patient negative for COVID and influenza. Plan: Therefore at this time will provide 4 mg of IM morphine, 4 mg of p.o. Zofran obtain a CT scan abdomen pelvis without IV contrast to evaluate for possible intra-abdominal process and venous duplex ultrasound of bilateral lower extremity to evaluate for possible worsening clots and re-evaluate. <ANA Dasilva - Last Filed: 01/26/22 18:51> Reevaluation(s) Reevaluation #1: - Sign out to MARK Bustos pending CT scan abdomen pelvis without IV contrast and venous duplex ultrasound of bilateral lower extremity. <ANA Dasilva - Last Filed: 01/26/22 18:51> Time: 18:50 <ANA Dasilva - Last Filed: 01/26/22 18:51> MDM - Abdominal Pain Medical Records Attestation: I reviewed the patient's medical records. <ANA Dasilva - Last Filed: 01/26/22 18:51> Lab Data Attestation: I reviewed the patient's lab results. <ANA Dasilva - Last Filed: 01/26/22 18:51> Result diagrams: : 01/26/22 11:52 01/26/22 11:52 <ANA Dasilva - Last Filed: 01/26/22 18:51> Labs: Lab Results 01/26/22 01/26/22 01/26/22 Range/Units 11:52 11:52 11:52 WBC 5.7 (4.8-10.8) X10*3/uL RBC 4.38 L (4.60-5.80) X10*6/uL Hgb 13.1 L (14.0-18.0) g/dl Hct 39.6 L (42.0-52.0) % MCV 90.4 (80.0-98.0) fL MCH 29.9 (27.0-33.0) pg MCHC 33.1 (31.0-36.0) g/dl RDW 15.7 (11.0-16.0) % Plt Count 171 (160-400) X10*3/uL MPV 9.4 (9.4-12.4) fL Immature Gran % (Auto) 0.4 (0.0-0.4) % Neut % (Auto) 52.9 (45-73) % Lymph % (Auto) 39.6 (20-40) % [place] % (Auto) 6.0 (2-11) % Eos % (Auto) 0.4 (0-4) % Baso % (Auto) 0.7 (0-2) % Lymph # (Auto) 2.3 (1.2-4.9) X10*3/uL [place] # (Auto) 0.3 (0.1-1.2) X10*3/uL Eos # (Auto) 0.0 (0.0-0.4) X10*3/uL Baso # (Auto) 0.0 (0.0-0.2) X10*3/uL Abs Immat Gran (auto) 0.02 (0.00-0.03) X10*3/uL Absolute Neuts (auto) 3.0 (2.0-8.3) x10*3/uL Absolute Nucleated RBC 0.000 (0.0-0.012) X10*3/uL Nucleated RBC % (auto) 0.0 (0.0-0.2) /100WBC Sodium 132 L (135-145) mmol/L Potassium 4.0 (3.3-5.1) mmol/L Chloride 104 (96-108) mmol/L Carbon Dioxide 19 L (22-29) mmol/L Anion Gap 13 (12-20) BUN 9 (9-16) mg/dL Creatinine 1.19 (0.5-1.4) mg/dL Estim Creat Clear Calc 75.9 Estimated GFR > 60 Random Glucose 207 H (60-115) mg/dL Calcium 8.8 (8.4-10.2) mg/dL Total Bilirubin 0.5 (0.0-1.0) mg/dL Direct Bilirubin 0.2 (0.0-0.5) mg/dL AST 37 (5-37) U/L ALT 39 (0-40) U/L Alkaline Phosphatase 151 H (39-117) U/L Total Protein 9.5 H (6.5-8.0) g/dL Albumin 3.8 (3.5-5.0) g/dL Lipase 15 (8-78) U/L COVID-19 (CAYLA) (Negative) COVID-19 Clin Com Influenza Type A (FOX) Negative (Negative) Influenza Type B (FOX) Negative (Negative) Influenza A & B Note See Note 01/26/22 Range/Units 11:52 WBC (4.8-10.8) X10*3/uL RBC (4.60-5.80) X10*6/uL Hgb (14.0-18.0) g/dl Hct (42.0-52.0) % MCV (80.0-98.0) fL MCH (27.0-33.0) pg MCHC (31.0-36.0) g/dl RDW (11.0-16.0) % Plt Count (160-400) X10*3/uL MPV (9.4-12.4) fL Immature Gran % (Auto) (0.0-0.4) % Neut % (Auto) (45-73) % Lymph % (Auto) (20-40) % [place] % (Auto) (2-11) % Eos % (Auto) (0-4) % Baso % (Auto) (0-2) % Lymph # (Auto) (1.2-4.9) X10*3/uL [place] # (Auto) (0.1-1.2) X10*3/uL Eos # (Auto) (0.0-0.4) X10*3/uL Baso # (Auto) (0.0-0.2) X10*3/uL Abs Immat Gran (auto) (0.00-0.03) X10*3/uL Absolute Neuts (auto) (2.0-8.3) x10*3/uL Absolute Nucleated RBC (0.0-0.012) X10*3/uL Nucleated RBC % (auto) (0.0-0.2) /100WBC Sodium (135-145) mmol/L Potassium (3.3-5.1) mmol/L Chloride (96-108) mmol/L Carbon Dioxide (22-29) mmol/L Anion Gap (12-20) BUN (9-16) mg/dL Creatinine (0.5-1.4) mg/dL Estim Creat Clear Calc Estimated GFR Random Glucose (60-115) mg/dL Calcium (8.4-10.2) mg/dL Total Bilirubin (0.0-1.0) mg/dL Direct Bilirubin (0.0-0.5) mg/dL AST (5-37) U/L ALT (0-40) U/L Alkaline Phosphatase (39-117) U/L Total Protein (6.5-8.0) g/dL Albumin (3.5-5.0) g/dL Lipase (8-78) U/L COVID-19 (CAYLA) Negative (Negative) COVID-19 Clin Com See Note Influenza Type A (FOX) (Negative) Influenza Type B (FOX) (Negative) Influenza A & B Note <ANA Dasilva - Last Filed: 01/26/22 18:51> Discharge Plan Discharge Clinical Impression: Abdominal pain, Nausea, Lower extremity pain, Acute hyponatremia <ANA Dasilva - Last Filed: 01/26/22 18:51> Patient Disposition: Still a Patient <ANA Dasilva - Last Filed: 01/26/22 18:51> Prescriptions: No Action metronidazole [Flagyl] 500 mg tablet 500 mg PO Q12H Qty: 14 0RF ciprofloxacin HCl 250 mg tablet 250 mg PO Q12H Qty: 14 0RF ondansetron HCl [Zofran] 4 mg tablet 4 mg PO Q8H PRN (Reason: nausea and vomiting) Qty: 10 0RF hydrocortisone [Procto-Med HC] 2.5 % cream with perineal applicator 1 appl IA DAILY Qty: 30 0RF ibuprofen 600 mg tablet 600 mg PO Q8H PRN (Reason: pain) Qty: 15 0RF hydromorphone [Dilaudid] 2 mg tablet 2 mg PO Q8H PRN (Reason: pain) Qty: 10 0RF dabigatran etexilate 75 mg capsule 75 mg PO BID 0RF <ANA Dasilva - Last Filed: 01/26/22 18:51>
[2022-01-26] MEDS: Morphine Sulfate 4 MG/ML CARTRIDGE IM ×2 (17:36→19:03)
[2022-01-26] MEDS: Ondansetron ODT 4 MG TAB.RAPDIS TRANSLINGU (17:37)
== END 2022-01-26 22:09 | disposition home or self-care (01) ==
PROVIDERS: Emergency Provider Emergency Medicine; PCP Physician Assistant
DX: R10.9 Unspecified abdominal pain (principal); R11.0 Nausea; E87.1 Hypo-osmolality and hyponatremia; I82.512 Chronic embolism and thrombosis of left femoral vein; I72.4 Aneurysm of artery of lower extremity; E11.9 Type 2 diabetes mellitus without complications; Z21 Asymptomatic human immunodeficiency virus [HIV] infection status; G40.909 Epilepsy, unspecified, not intractable, without status epilepticus; D64.9 Anemia, unspecified; Z79.01 Long term (current) use of anticoagulants; Z79.899 Other long term (current) drug therapy; Z95.828 Presence of other vascular implants and grafts; Z20.822 Contact with and (suspected) exposure to COVID-19
CPT/HCPCS: 36415; 74176; 80048; 80076; 83690; 85025; 87502; 87635; 93970; 96372; 99284; J2270

== ENCOUNTER 2022-02-21 10:55 | Emergency (ER) | payer MEDICARE, MEDICAID, SELFPAY ==
[2022-02-21 12:43] VITALS: BP 111/83; PULSE 80; RESP 16; TEMP 37.1; O2SAT 99; BMI 27.6
[2022-02-21 13:08] LABS: MANUAL DIFF FLAG NO
[2022-02-21 13:09] LABS: Basophils Percent Auto 0.4 % (0-2); Eosinophils Percent Auto 0.4 % (0-4); Hematocrit 41.1 % (42.0-52.0); Hemoglobin 13.3 g/dl (14.0-18.0); Imm Gran Abs Auto 0.01 X10*3/uL (0.00-0.03); Imm Gran Pct Auto 0.2 % (0.0-0.4); Lymphocytes Absolute Auto 2.4 X10*3/uL (1.2-4.9); Lymphocytes Percent Auto 42.1 % (20-40); Mean Corpuscular HGB Conc 32.4 g/dl (31.0-36.0); Mean Corpuscular Hemoglobin 29.4 pg (27.0-33.0); Mean Corpuscular Volume 90.9 fL (80.0-98.0); Mean Platelet Volume 9.5 fL (9.4-12.4); Monocytes Absolute Auto 0.5 X10*3/uL (0.1-1.2); Monocytes Percent Auto 8.2 % (2-11); Neutrophils Absolute Auto 2.8 x10*3/uL (2.0-8.3); Neutrophils Percent Auto 48.7 % (45-73); Platelet Count 154 X10*3/uL (160-400); Red Blood Count 4.52 X10*6/uL (4.60-5.80); Red Cell Distribution Width 15.2 % (11.0-16.0); White Blood Count 5.7 X10*3/uL (4.8-10.8)
[2022-02-21 13:14] LABS: INTERNATIONAL NORM RATIO 1.1 (0.9-1.1); Prothrombin Time 12.4 SEC (10.0-13.1)
[2022-02-21 13:17] LABS: Partial Thromboplastin Time 31.8 SEC (24.1-38.0)
[2022-02-21 13:35] LABS: Alanine Aminotransferase 32 U/L (0-40); Albumin Level 4.1 g/dL (3.5-5.0); Alkaline Phosphatase 154 U/L (39-117); Anion Gap 10 (12-20); Aspartate Amino Transferase 33 U/L (5-37); Bilirubin Direct 0.2 mg/dL (0.0-0.5); Bilirubin Total 0.5 mg/dL (0.0-1.0); Blood Urea Nitrogen 8 mg/dL (9-16); Carbon Dioxide 23 mmol/L (22-29); Chloride 106 mmol/L (96-108); Creatinine Clr Calc Pharmacy 82.1; Estimated Glomerular Filt Rate > 60; Glucose Random 140 mg/dL (60-115); Potassium 4.1 mmol/L (3.3-5.1); Sodium 135 mmol/L (135-145)
== END 2022-02-21 18:22 | disposition left against medical advice (07) ==
LOC: HO.ED 18:23
PROVIDERS: Emergency Provider Emergency Medicine; PCP Physician Assistant
DX: R10.9 Unspecified abdominal pain (principal); M79.604 Pain in right leg
CPT/HCPCS: 36415; 80048; 80076; 85025; 85610; 85730; 99281; 99283

== ENCOUNTER → 2022-03-07 10:17 | Outpatient (BNVA) | payer MEDICARE, MEDICAID, SELFPAY | PROVIDERS: PCP Physician Assistant; Visit Provider Surgery Vascular Surgery | DX: I71.4 Abdominal aortic aneurysm, without rupture (principal); I72.4 Aneurysm of artery of lower extremity | CPT/HCPCS: 99202 ==

== ENCOUNTER 2022-03-20 08:05 | Outpatient (REF) | payer MEDICARE, MEDICAID, SELFPAY ==
--- NOTE | ~2022-03-20 | CT_ITS ---
EXAMINATION: CTA ABDOMEN, PELVIS AND LOWER EXTREMITY RUNOFF WITH CONTRAST HISTORY: Aneurysm of the lower extremity. DESCRIPTION: Routine abdominal aorta and lower extremity runoff CTA protocol with contrast was performed. 100 mL of Omnipaque 350 was administered. Images were reviewed and processed on an independent dedicated 3-D workstation and 3-D images were reconstructed with concurrent radiologist supervision and subsequently interpreted. The images were reviewed and postprocessed on a dedicated 3-D workstation. This CT examination was performed using dose optimization techniques as appropriate, variously including the following: *Automated exposure control. *Adjustment of mA and/or kV according to patient size (this includes techniques or standardized protocols for targeted exams where dose is matched to indication/reason for exam, i.e., extremities or head). *Use of iterative reconstruction technique. COMPARISON: CTA runoff on 05/13/2021. FINDINGS: VASCULAR: HEART: The visualized heart is normal in size. No pericardial effusion. ABDOMINAL AORTA: The suprarenal abdominal aorta is patent and normal in caliber. As before, there is evidence of prior endovascular aortic repair with an aortobiiliac stent graft in place. The stent graft construct appears widely patent as before. Overlapping stents are again noted. Abdominal aortic caliber is stable. MESENTERIC ARTERIES:The celiac artery is widely patent. The left gastric artery appears to arise directly from the aorta. The SMA is widely patent. The proximal RAMANA is occluded with distal branches filled via collaterals. RENAL ARTERIES: The right renal artery is widely patent without evidence of hemodynamically significant stenosis. The left renal artery is widely patent without evidence of hemodynamically significant stenosis. INFERIOR VENA CAVA: Not well opacified though appears normal in caliber. RIGHT LOWER EXTREMITY: Common iliac artery: Widely patent stent. Normal caliber. External iliac artery: Normal caliber, widely patent. Internal iliac artery: Normal caliber, widely patent. Mild atherosclerosis. Common femoral artery: Normal caliber, widely patent. Superficial femoral artery: The proximal and mid SFA are normal in caliber and widely patent. There is a patent distal SFA to anterior tibial bypass graft. Profunda femoris artery: Normal caliber, widely patent. Popliteal artery: There is complete occlusion of a popliteal artery aneurysm which measures up to 2.6 cm maximally. The proximal and mid portions of the popliteal artery are occluded. The aneurysm appears stable in size from the comparison. There is minimal high density material along the periphery of the aneurysm, either calcification or minimal enhancement, however the majority of the aneurysm is thrombosed. This appearance is stable. The very distal popliteal artery appears patent and normal in caliber. Anterior tibial artery: Normal caliber, widely patent. Posterior tibial artery: Normal caliber, widely patent. Peroneal artery: Diminutive caliber, seen to the level of the distal calf. LEFT LOWER EXTREMITY: Common iliac artery: Widely patent stent, normal caliber. External iliac artery: Normal caliber, widely patent. Internal iliac artery: Normal caliber, widely patent. Common femoral artery: Normal caliber, widely patent. Superficial femoral artery: Normal caliber, widely patent. Profunda femoris artery: Normal caliber, widely patent. Popliteal artery: Normal caliber, widely patent. Anterior tibial artery: Normal caliber, widely patent. Posterior tibial artery: Normal caliber, widely patent. Peroneal artery: Normal caliber, widely patent. NONVASCULAR: LUNG BASES: The visualized lung bases are unremarkable. LIVER: Normal size. Decreased hepatic attenuation is consistent with steatosis. No focal lesions are identified. No ductal dilatation. GALLBLADDER: Post cholecystectomy. PANCREAS: Unremarkable. SPLEEN: Unremarkable. ADRENAL GLANDS: Unremarkable. KIDNEYS AND URETERS: The kidneys are normal in size, shape, and attenuation. No hydronephrosis, hydroureter, or calculi seen. No perinephric stranding. BLADDER: Unremarkable. GASTROINTESTINAL TRACT: Normal appearing loops of large and small bowel. The appendix is not visualized. ABDOMINAL WALL: No significant hernia is appreciated. LYMPH NODES: Normal. PELVIS: Unremarkable. OSSEOUS STRUCTURES: No suspicious lesions. CT/CT angio abd aorta runoff IMPRESSION: 1. Widely patent aortobiiliac stent graft. Aortic caliber is stable from comparison in 2020. 2. Widely patent distal right SFA to anterior tibial artery bypass graft. 3. The anterior and posterior tibial arteries are seen to the foot on the right. The right peroneal artery is seen to the level of the distal calf. 4. Three-vessel runoff to the left lower extremity. 5. Stable size and appearance of a thrombosed right popliteal artery aneurysm. There is minimal high density material along the periphery of the aneurysm sac, either calcification or minimal peripheral enhancement. 6. Hepatic steatosis.
[2022-03-20] MEDS: iohexoL 350 MG/ML 100 ML INFUS..BTL IV (09:57)
== END 2022-03-20 08:06 | disposition home or self-care (01) ==
LOC: HO.CT 08:05
PROVIDERS: Visit Provider Surgery Vascular Surgery
DX: I72.4 Aneurysm of artery of lower extremity (principal)
CPT/HCPCS: 75635; Q9967

== ENCOUNTER → 2022-04-18 15:36 | Outpatient (BNVA) | payer MEDICARE, MEDICAID, SELFPAY | PROVIDERS: PCP Physician Assistant; Visit Provider Surgery Vascular Surgery | DX: I71.4 Abdominal aortic aneurysm, without rupture (principal); I72.4 Aneurysm of artery of lower extremity | CPT/HCPCS: 99212 ==

== ENCOUNTER 2022-05-03 10:10 | Emergency (ER) | payer MEDICARE, MEDICAID, SELFPAY ==
--- NOTE | ~2022-05-03 | CT_ITS ---
EXAMINATION: CT ABDOMEN AND PELVIS WITH CONTRAST CLINICAL INFORMATION: Central abdominal pain and tenderness status post fall COMPARISON: CTA abdomen pelvis lower extremity runoff 03/20/2022 TECHNIQUE: Multidetector volumetric images were obtained from the superior aspect of the liver through the pubic symphysis following administration 85 mL of Omnipaque 350 intravenous contrast. Sagittal and coronal reformatted images were obtained on the technologist's workstation. Oral contrast: No This CT examination was performed using dose optimization techniques as appropriate, variously including the following: *Automated exposure control *Adjustment of mA and/or kV according to patient size (this includes techniques or standardized protocols for targeted exams where dose is matched to indication/reason for exam; i.e. extremities or head) *Use of iterative reconstruction technique DLP: 610 mGy-cm FINDINGS: LUNG BASES: Small right basilar calcified granuloma. Lung bases otherwise clear. LIVER, GALLBLADDER, AND BILIARY TREE: Mild hepatic hypoattenuation suggesting mild steatosis. No liver lesion. No biliary ductal dilation. Status post cholecystectomy. Surgical clips in the gallbladder fossa. PANCREAS: Unremarkable. SPLEEN: Normal size. Small calcified splenic granulomas. Small splenule. ADRENAL GLANDS: Unremarkable. KIDNEYS AND URETERS: Subcentimeter low-density probable cyst in the left upper pole, too small to characterize. No other renal lesions. Symmetric nephrograms. No hydronephrosis or renal calculi. BLADDER: Unremarkable. GASTROINTESTINAL TRACT: Status post prior sigmoid resection and rectosigmoid anastomosis. Status post appendectomy with surgical clips adjacent to the cecal base. No dilated bowel loops. No bowel wall thickening. No ascites or free air. ABDOMINAL WALL: Couple small [id number] superior umbilical ventral abdominal wall hernias containing fat. Tiny fat-containing right inguinal hernia. LYMPH NODES: No lymphadenopathy. VASCULAR: Status post aortobiiliac endovascular stent grafting. PELVIC VISCERA: Unremarkable. OSSEOUS STRUCTURES: No acute fracture or suspicious osseous lesion. CT/CT abdomen pelvis w IV con IMPRESSION: 1. No acute injury identified in the abdomen or pelvis. No intra-abdominal free air or free fluid. 2. Mild hepatic steatosis. 3. Status post cholecystectomy, appendectomy, and aortobiiliac stent graft. 4. No acute fracture. Fleischner guidelines were followed.
--- NOTE | ~2022-05-03 | US_ITS ---
EXAMINATION: US VENOUS ULTRASOUND WITH DOPPLER LOWER EXTREMITY, BILATERAL CLINICAL INFORMATION: History of DVT with pain and numbness. COMPARISON: None TECHNIQUE: Ultrasound of the deep veins is performed from the hip to the calf with compression sonography and color and pulse Doppler assessment. Spectral analysis with color-flow imaging is performed. FINDINGS: RIGHT: There is normal venous compression and respiratory variation and augmented flow. The visualized common femoral vein, superficial femoral vein, profunda femoral vein, popliteal vein, and the trifurcation region shows no evidence of deep venous thrombosis. There is no significant popliteal fossa cyst. Redemonstrated thrombosed popliteal artery aneurysm measuring approximately 4.9 x 2.5 x 2.3 cm in size. LEFT: There is normal venous compression and respiratory variation and augmented flow. The visualized common femoral vein, superficial femoral vein, profunda femoral vein, popliteal vein, and the trifurcation region shows no evidence of new deep venous thrombosis. There is a trace nonocclusive thrombus in the left distal femoral popliteal vein, unchanged. There is no significant popliteal fossa cyst. If the patient's symptoms persist, followup ultrasound in 5 days 7 days might be of value to exclude proximal propagation from a non-visualized calf vein. US/US venous duplex LE BI IMPRESSION: 1. No new/acute DVT demonstrated in the bilateral lower extremities. 2. Unchanged trace nonocclusive chronic thrombus in the left distal femoral vein and popliteal vein. 3. Similar appearance of thrombosed right popliteal artery aneurysm.
[2022-05-03 11:03] VITALS: BP 109/82; PULSE 102; RESP 16; TEMP 36.6; O2SAT 98; BMI 27.6
[2022-05-03 12:14] LABS: COVID-19 Test Negative (Negative)
--- NOTE | 2022-05-03 15:59 | ED_ITS ---
HPI - General Adult General Chief complaint: General Medical Stated complaint: Bloodclot in leg Time Seen by Provider: 05/03/22 15:59 Source: patient Mode of arrival: ambulatory Limitations: no limitations History of Present Illness HPI narrative: 46 yo male with history of HIV, AAA s/p aortic endograft, seizure disorder, LE DVT, DM, PVD s/p bypass, occluded popliteal artery aneurysm, hx cholecystectomy and appendectomy, hx diverticulitis s/p sigmoid resection 2019 which chronic abdominal pain who presents to the ER for evaluation of generalized abdominal pain for 1 week after he fell. Patient reports 1 week ago he fell after standing from a seated position, landing on his abdomen impacting the stairs. Denies head strike, loss of consciousness, dizziness, any other injury from fall. Patient reports for the past month he has had numbness and weakness of his left leg, which is why he fell. Reports severe epigastric abdominal pain, nausea, decreased appetite since falling. Denies fever, headache, shortness of breath, diarrhea, hematochezia, hematemesis. Reports bilateral lower extremity pain and intermittent chest pain over the last month as well. MD complaint: abdominal pain Onset (ago): week(s) Location: abdomen Radiation: non-radiation Severity: severe Severity scale (1-10): 10 Quality: sharp and constant Pain Consistency: constant Exacerbating factors: eating Associated symptoms: loss of appetite, nausea/vomiting and weakness Related Data Home Medications Medication Instructions Recorded Confirmed dabigatran etexilate 75 mg capsule 75 mg PO BID 06/13/21 07/14/21 Previous Rx's Medication Instructions Recorded ciprofloxacin HCl 250 mg tablet 250 mg PO Q12H #14 tabs 08/16/20 metronidazole 500 mg tablet 500 mg PO Q12H #14 tabs 08/16/20 (Flagyl) ondansetron HCl 4 mg tablet 4 mg PO Q8H PRN nausea and 08/16/20 (Zofran) vomiting #10 tabs hydrocortisone 2.5 % topical cream 1 appl HI DAILY #30 grams 05/26/21 with perineal applicator (Procto-Med HC) ibuprofen 600 mg tablet 600 mg PO Q8H PRN pain #15 tabs 05/26/21 hydromorphone 2 mg tablet 2 mg PO Q8H PRN pain #10 tabs 06/22/21 (Dilaudid) ondansetron 4 mg disintegrating 4 mg PO ONCE PRN nausea and 01/26/22 tablet vomiting #10 tabs Allergies Allergy/AdvReac Type Severity Reaction Status Date / Time influenza virus vaccine, Allergy Severe GUILLIAN Verified 04/18/22 15:52 specific BARRE HX. [FLU VACCINE] tramadol [TRAMADOL] Allergy Severe SEIZURES Verified 04/18/22 15:52 acetaminophen [From PERCOCET] Allergy Intermediate ITCHING Verified 04/18/22 15:52 carbamazepine [From TEGRETOL] Allergy Intermediate HALLUCINATI Verified 04/18/22 15:52 ONS lamotrigine [From LAMICTAL] Allergy Intermediate ITCHING Verified 04/18/22 15:52 metoclopramide [From REGLAN] Allergy Intermediate ITCHY Verified 04/18/22 15:52 oxycodone [From PERCOCET] Allergy Intermediate ITCHING Verified 04/18/22 15:52 SEAFOOD Allergy Severe ANAPHYLAXIS Uncoded 03/07/22 10:33 Review of Systems Review of Systems: Constitutional: No Fever, No Chills ENT/Mouth: No sore throat, No Rhinorrhea, No Swallowing Difficulty Eyes: No Eye Pain, No Swelling, No Redness Cardiovascular: + Chest Pain, No SOB, No Orthopnea, No Edema Respiratory: No Cough, No Sputum, No Wheezing, No dyspnea Gastrointestinal: + Nausea, No Vomiting, No Diarrhea, + abdominal Pain, No Hematochezia, No Melena Genitourinary: No Dysuria, No Urinary Frequency, No Hematuria Musculoskeletal: bilateral lower extremity pain, No joint pain, No Myalgias Skin: No Skin Lesions, No rash Neuro: + Weakness, + Numbness, No Dizziness, + Headache Psych: No Anxiety/Panic, No Depression Heme/Lymph: No Bruising, No Lymphadenopathy Endocrine: No Polyuria, No Polydipsia PMFSH Past Medical History Medical History COVID-19 Diabetes DVT (deep venous thrombosis) HIV (human immunodeficiency virus infection) Left sided abdominal pain Seizure disorder Surgical History H/O fasciotomy S/P AAA (abdominal aortic aneurysm) repair S/P IVC filter Status post cholecystectomy Status post laparoscopic appendectomy Social History Social History Alcohol intake: unknown Patient Tobacco Use Status: Former Tobacco user Advance Directives: No Advance Directives Information Provided: No Physical Exam ED Vital Signs: Vital Signs - 24 hr 05/03/22 11:03 Temperature 98 F Pulse Rate 102 H Respiratory Rate 16 Blood Pressure 109/82 Pulse Oximetry 98 Oxygen Delivery Method Room Air BMI result Body Mass Index 27.6 Const Other: Appearance: Alert. Oriented X3. patient appears uncomfortable, grimacing in pain Eyes: Pupils equal, round and reactive to light. ENT: Pharynx normal. Neck: Normal inspection. Neck supple. CVS: Normal heart rate and rhythm. Respiratory: No respiratory distress. Breath sounds normal. Abdomen: soft, nondistended, diffusely tender +BS x4. no pulsatile mass Skin: Skin warm and dry. Normal skin color. Normal skin turgor. No rashes. Extremities: No lower extremity edema. Neuro: Oriented X 3. No motor deficit. No sensory deficit. Course Course Course Narrative: 46 yo male with history of HIV, AAA s/p aortic endograft, seizure disorder, LE DVT, DM, PVD s/p bypass, occluded popliteal artery aneurysm, hx cholecystectomy and appendectomy, hx diverticulitis s/p sigmoid resection 2019 which chronic abdominal pain who presents to the ER for evaluation of generalized abdominal pain for 1 week after he fell. patient reportedly fell at home 1 week ago, impacting his abdomen on his chair he reports he fell due to numbness and weakness in his left leg has been present for 1 month. On exam, VSS, patient is diffusely tender to abdominal palpation, no pulsatile abdominal mass noted. will need to get CT scan w/ contrast for further evaluation. he is also requesting US of his lower extremities - he had recently seen by Dr. Vazquez who reports he is stable from a vascular standpoint. his LE are warm and well perfused but he reports chronic pain and numbness to the left leg Reevaluation(s) Reevaluation #1: Lab workup was unremarkable. Difficulty obtaining IV access, ultimately a left EJ was placed for IV fluids and pain management. He tolerated the procedure well. Pain is improved after morphine and Zofran. Reevaluation #2: CT scan showing no acute findings. His ultrasound is also showing no changes from prior. He is still having some generalized abdominal pain, this appears to be chronic in nature. No acute findings were determined today. He was encourage follow-up with his GI doctor, stick to a bland diet for the next 48 hours. Return precautions were discussed. Stable for DC home with outpatient follow-up. Procedures EJ/Peripheral Line Neck L: Time Out Performed: Yes Skin Cleansed in Sterile Fashion: Yes Size (gauge): 20 IV Secured and Dressing Applied: Yes Patient Tolerated Procedure: well and no complications Medical Decision Making Lab Data Result diagrams: 05/03/22 16:01 05/03/22 16:42 Labs: Lab Results 05/03/22 05/03/22 05/03/22 Range/Units 11:29 16:01 16:01 WBC 4.3 L (4.8-10.8) X10*3/uL RBC 4.23 L (4.60-5.80) X10*6/uL Hgb 12.3 L (14.0-18.0) g/dl Hct 39.2 L (42.0-52.0) % MCV 92.7 (80.0-98.0) fL MCH 29.1 (27.0-33.0) pg MCHC 31.4 (31.0-36.0) g/dl RDW 15.1 (11.0-16.0) % Plt Count 164 (160-400) X10*3/uL MPV 9.9 (9.4-12.4) fL Immature Gran % (Auto) 0.0 (0.0-0.4) % Neut % (Auto) 36.5 L (45-73) % Lymph % (Auto) 52.1 H (20-40) % [place] % (Auto) 10.4 (2-11) % Eos % (Auto) 0.5 (0-4) % Baso % (Auto) 0.5 (0-2) % Lymph # (Auto) 2.3 (1.2-4.9) X10*3/uL [place] # (Auto) 0.5 (0.1-1.2) X10*3/uL Eos # (Auto) 0.0 (0.0-0.4) X10*3/uL Baso # (Auto) 0.0 (0.0-0.2) X10*3/uL Abs Immat Gran (auto) 0.00 (0.00-0.03) X10*3/uL Absolute Neuts (auto) 1.6 L (2.0-8.3) x10*3/uL Absolute Nucleated RBC 0.000 (0.0-0.012) X10*3/uL Nucleated RBC % (auto) 0.0 (0.0-0.2) /100WBC PT 12.3 (10.0-13.1) SEC INR 1.1 (0.9-1.1) APTT 28.8 (26.0-36.4) SEC Sodium (135-145) mmol/L Potassium (3.3-5.1) mmol/L Chloride (96-108) mmol/L Carbon Dioxide (22-29) mmol/L Anion Gap (12-20) BUN (9-16) mg/dL Creatinine (0.5-1.4) mg/dL Estim Creat Clear Calc Estimated GFR Random Glucose (60-115) mg/dL Calcium (8.4-10.2) mg/dL Total Bilirubin (0.0-1.0) mg/dL Direct Bilirubin (0.0-0.5) mg/dL AST (5-37) U/L ALT (0-40) U/L Alkaline Phosphatase (39-117) U/L Total Protein (6.5-8.0) g/dL Albumin (3.5-5.0) g/dL Lipase (8-78) U/L COVID-19 ([facility]) Negative (Negative) COVID-19 Clin Com See Note 05/03/22 Range/Units 16:42 WBC (4.8-10.8) X10*3/uL RBC (4.60-5.80) X10*6/uL Hgb (14.0-18.0) g/dl Hct (42.0-52.0) % MCV (80.0-98.0) fL MCH (27.0-33.0) pg MCHC (31.0-36.0) g/dl RDW (11.0-16.0) % Plt Count (160-400) X10*3/uL MPV (9.4-12.4) fL Immature Gran % (Auto) (0.0-0.4) % Neut % (Auto) (45-73) % Lymph % (Auto) (20-40) % [place] % (Auto) (2-11) % Eos % (Auto) (0-4) % Baso % (Auto) (0-2) % Lymph # (Auto) (1.2-4.9) X10*3/uL [place] # (Auto) (0.1-1.2) X10*3/uL Eos # (Auto) (0.0-0.4) X10*3/uL Baso # (Auto) (0.0-0.2) X10*3/uL Abs Immat Gran (auto) (0.00-0.03) X10*3/uL Absolute Neuts (auto) (2.0-8.3) x10*3/uL Absolute Nucleated RBC (0.0-0.012) X10*3/uL Nucleated RBC % (auto) (0.0-0.2) /100WBC PT (10.0-13.1) SEC INR (0.9-1.1) APTT (26.0-36.4) SEC Sodium 137 (135-145) mmol/L Potassium 4.1 (3.3-5.1) mmol/L Chloride 104 (96-108) mmol/L Carbon Dioxide 24 (22-29) mmol/L Anion Gap 13 (12-20) BUN 9 (9-16) mg/dL Creatinine 1.16 (0.5-1.4) mg/dL Estim Creat Clear Calc 77.8 Estimated GFR > 60 Random Glucose 168 H (60-115) mg/dL Calcium 8.6 (8.4-10.2) mg/dL Total Bilirubin 0.4 (0.0-1.0) mg/dL Direct Bilirubin 0.2 (0.0-0.5) mg/dL AST 31 (5-37) U/L ALT 32 (0-40) U/L Alkaline Phosphatase 140 H (39-117) U/L Total Protein 8.9 H (6.5-8.0) g/dL Albumin 3.8 (3.5-5.0) g/dL Lipase 18 (8-78) U/L COVID-19 ([facility]) (Negative) COVID-19 Clin Com Discharge Plan Discharge Clinical Impression: Abdominal pain, chronic, generalized Patient Disposition: Home, Self-Care Instructions: Chronic Abdominal Pain (ED) Additional Instructions: your CT scan did not show any acute findings. Your ultrasound also showed no acute changes from your prior scan. Your lab workup today was unremarkable. Stick to a bland diet. Avoid foods high in acid, avoid alcohol and NSAID medications like Aleve, Motrin, Advil or ibuprofen. Follow up with your doctor Follow up with your GI doctor if you symptoms persist despite dietary modifications and medication. If you develop new or worsening symptoms call 911 or come back to the ER for further evaluation. Prescriptions: No Action metronidazole [Flagyl] 500 mg tablet 500 mg PO Q12H Qty: 14 0RF ciprofloxacin HCl 250 mg tablet 250 mg PO Q12H Qty: 14 0RF ondansetron HCl [Zofran] 4 mg tablet 4 mg PO Q8H PRN (Reason: nausea and vomiting) Qty: 10 0RF ondansetron 4 mg tablet,disintegrating 4 mg PO ONCE PRN (Reason: nausea and vomiting) Qty: 10 0RF hydrocortisone [Procto-Med HC] 2.5 % cream with perineal applicator 1 appl HI DAILY Qty: 30 0RF ibuprofen 600 mg tablet 600 mg PO Q8H PRN (Reason: pain) Qty: 15 0RF hydromorphone [Dilaudid] 2 mg tablet 2 mg PO Q8H PRN (Reason: pain) Qty: 10 0RF dabigatran etexilate 75 mg capsule 75 mg PO BID Referrals: Thomas Kam PA [Primary Care Provider] - Print Language: Wolof
[2022-05-03 16:04] LABS: MANUAL DIFF FLAG NO
[2022-05-03 16:07] LABS: Basophils Percent Auto 0.5 % (0-2); Eosinophils Percent Auto 0.5 % (0-4); Hematocrit 39.2 % (42.0-52.0); Hemoglobin 12.3 g/dl (14.0-18.0); Lymphocytes Absolute Auto 2.3 X10*3/uL (1.2-4.9); Lymphocytes Percent Auto 52.1 % (20-40); Mean Corpuscular HGB Conc 31.4 g/dl (31.0-36.0); Mean Corpuscular Hemoglobin 29.1 pg (27.0-33.0); Mean Corpuscular Volume 92.7 fL (80.0-98.0); Mean Platelet Volume 9.9 fL (9.4-12.4); Monocytes Absolute Auto 0.5 X10*3/uL (0.1-1.2); Monocytes Percent Auto 10.4 % (2-11); Neutrophils Absolute Auto 1.6 x10*3/uL (2.0-8.3); Neutrophils Percent Auto 36.5 % (45-73); Platelet Count 164 X10*3/uL (160-400); Red Blood Count 4.23 X10*6/uL (4.60-5.80); Red Cell Distribution Width 15.1 % (11.0-16.0); White Blood Count 4.3 X10*3/uL (4.8-10.8)
[2022-05-03 16:27] LABS: INTERNATIONAL NORM RATIO 1.1 (0.9-1.1); Prothrombin Time 12.3 SEC (10.0-13.1)
[2022-05-03 16:30] LABS: Partial Thromboplastin Time 28.8 SEC (26.0-36.4)
[2022-05-03 17:20] LABS: Anion Gap 13 (12-20); Blood Urea Nitrogen 9 mg/dL (9-16); Calcium 8.6 mg/dL (8.4-10.2); Carbon Dioxide 24 mmol/L (22-29); Chloride 104 mmol/L (96-108); Creatinine Clr Calc Pharmacy 77.8; Estimated Glomerular Filt Rate > 60; Glucose Random 168 mg/dL (60-115); Potassium 4.1 mmol/L (3.3-5.1); Sodium 137 mmol/L (135-145)
[2022-05-03] MEDS: Morphine Sulfate 4 MG/ML CARTRIDGE IVPUSH (17:38)
[2022-05-03] MEDS: ondansetron HCL 4 MG/2 ML VIAL IVPUSH (17:39)
[2022-05-03 17:42] LABS: Alanine Aminotransferase 32 U/L (0-40); Albumin Level 3.8 g/dL (3.5-5.0); Alkaline Phosphatase 140 U/L (39-117); Aspartate Amino Transferase 31 U/L (5-37); Bilirubin Direct 0.2 mg/dL (0.0-0.5); Bilirubin Total 0.4 mg/dL (0.0-1.0); Lipase 18 U/L (8-78); Total Protein 8.9 g/dL (6.5-8.0)
[2022-05-03] MEDS: 0.9 % Sodium Chloride 1,000 ML 999 ML IVCONT (17:53)
[2022-05-03] MEDS: iohexoL 350 MG/ML 100 ML INFUS..BTL IV (18:04)
== END 2022-05-03 20:27 | disposition home or self-care (01) ==
PROVIDERS: Physician Assistant; Emergency Provider Emergency Medicine Emergency Medical Services; PCP Physician Assistant
DX: G89.29 Other chronic pain (principal); R10.84 Generalized abdominal pain; M79.605 Pain in left leg; B20 Human immunodeficiency virus [HIV] disease; E11.9 Type 2 diabetes mellitus without complications; Z86.718 Personal history of other venous thrombosis and embolism; Z20.822 Contact with and (suspected) exposure to COVID-19; Z79.899 Other long term (current) drug therapy
CPT/HCPCS: 36415; 74177; 80048; 80076; 83690; 85025; 85610; 85730; 87635; 93970; 96374; 96375; 99283; 99284; J2270; J2405; Q9967

== ENCOUNTER 2022-10-08 12:03 | Emergency (ER) | payer MEDICARE, MEDICAID, SELFPAY ==
--- NOTE | ~2022-10-08 | CT_ITS ---
EXAMINATION: CT ANGIOGRAM OF THE CHEST WITH AND WITHOUT CONTRAST (CT PULMONARY ANGIOGRAM FOR PE) CLINICAL INFORMATION: Reason for Exam Chest pain, H/O DVT, rule out PE COMPARISON: CT chest abdomen pelvis 02/11/2022 TECHNIQUE: Prior to contrast administration, noncontrast localization images were obtained. Subsequently, multidetector volumetric imaging was performed from the thoracic inlet to below the diaphragms following the administration of 65 mL Omnipaque 350 intravenous contrast. No contrast reaction reported Sagittal, coronal, and MIP oblique sagittal reformatted images were obtained on the CT workstation, uploaded to PACS, and reviewed. This CT examination was performed using dose optimization techniques as appropriate, variously including the following: *Automated exposure control *Adjustment of mA and/or kV according to patient size (this includes techniques or standardized protocols for targeted exams where dose is matched to indication/reason for exam; i.e. extremities or head) *Use of iterative reconstruction technique Total exam dose-length product 428 mGy-cm FINDINGS: QUALITY OF STUDY/CONTRAST BOLUS: Satisfactory. PULMONARY ARTERIES: No central or segmental pulmonary emboli. THORACIC AORTA: No aneurysm or dissection. Variant direct origin of the left vertebral artery from the aortic arch noted incidentally. LUNG: No airspace consolidation. A few scattered small bilateral calcified granulomas are noted. No suspicious appearing noncalcified pulmonary nodules. Central through segmental airways are clear. PLEURA: No pleural effusion or pneumothorax. MEDIASTINUM: Normal heart size. No pericardial effusion. No hilar or mediastinal lymphadenopathy. No evidence of septal bowing or right heart strain. CORONARY ARTERY CALCIFICATION: None visualized on this study. CHEST WALL/AXILLA: No axillary or internal mammary lymphadenopathy. OSSEOUS STRUCTURES: Unchanged superior plate compression deformity of T6. No acute fracture or suspicious osseous lesion. UPPER ABDOMEN: Hepatic hypoattenuation/steatosis. Calcified splenic granulomas. Status post cholecystectomy. No biliary ductal dilation. Abdominal aortic endovascular stent graft partially imaged. No reflux of contrast into the hepatic veins to suggest elevated right heart pressures. CT/CT angio chest PE protocol IMPRESSION: 1. No evidence of pulmonary embolus. 2. No airspace consolidation or effusions. 3. Hepatic steatosis. VTE: negative
--- NOTE | ~2022-10-08 | US_ITS ---
EXAMINATION: US VENOUS ULTRASOUND WITH DOPPLER LOWER EXTREMITY, BILATERAL CLINICAL INFORMATION: History of DVT with pain and numbness. COMPARISON: 05/03/2022 TECHNIQUE: Ultrasound of the deep veins is performed from the hip to the calf with compression sonography and color and pulse Doppler assessment. Spectral analysis with color-flow imaging is performed. FINDINGS: RIGHT: There is normal venous compression and respiratory variation and augmented flow. The visualized common femoral vein, superficial femoral vein, profunda femoral vein, popliteal vein, and the trifurcation region shows no evidence of deep venous thrombosis. There is no significant popliteal fossa cyst. Incidental note made again of a thrombosed popliteal artery aneurysm. LEFT: Again noted is chronic unchanged DVT in the mid and distal femoral vein along with the popliteal vein on the left with some chronic mural thrombus. The remainder of the deep venous system on the left appears unremarkable with normal venous compression and respiratory variation and augmented flow. The visualized common femoral vein, profunda femoral vein and the trifurcation region shows no evidence of new deep venous thrombosis. There is no significant popliteal fossa cyst. US/US venous duplex LE BI IMPRESSION: 1. No DVT demonstrated in the right lower extremity. 2. 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 3. 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
--- NOTE | ~2022-10-08 | XR_ITS ---
EXAMINATION: XR CHEST CLINICAL INFORMATION: Shortness of breath COMPARISON: 06/22/2021 TECHNIQUE: 2 views of the chest were obtained. FINDINGS: There is low lung volume bilaterally with increased interstitial markings most likely interstitial edema and there is prominence of cardiac silhouette. XR/XR chest 2V IMPRESSION: Interstitial edema
[2022-10-08 12:33] VITALS: BP 121/77; PULSE 110; RESP 20; TEMP 37.2; O2SAT 98; BMI 27.6
--- NOTE | 2022-10-08 12:33 | ED.URI ---
HPI - URI/Sore Throat General Chief Complaint: General Medical <ANA Dasilva - Last Filed: 10/08/22 12:39> Stated Complaint: Cough/SOB/Leg pain/CP <ANA Dasilva - Last Filed: 10/08/22 12:39> Time Seen by Provider: 10/08/22 12:44 <ANA Dasilva - Last Filed: 10/08/22 12:39> Source: patient <Teofilo Cortez MD - Last Filed: 10/08/22 17:21> Mode of arrival: ambulatory <Teofilo Cortez MD - Last Filed: 10/08/22 17:21> Limitations: language barrier (Patient speaks some Nepali, 1st language is Bulgarian, interpreter deaf you) <Teofilo Cortez MD - Last Filed: 10/08/22 17:21> History of Present Illness HPI Narrative: 47-year-old male with a history of HIV, AAA s/p aortic endograft, seizure disorder, LE DVT, DM, PVD s/p bypass, occluded popliteal artery aneurysm, hx cholecystectomy and appendectomy, hx diverticulitis s/p sigmoid resection 2019 who presents emergency department for evaluation of by lower extremity pain and swelling right greater than left, shortness of breath, chest pain and cough x2 weeks. The patient has a history of recurrent DVTs and apparently had a duplex ultrasound on 09/10/2022 and was told by his city dispatch supervisor that he has progression of his left leg DVT and has a new 8 cm clot. The patient states that he has been on multiple different medications for his recurrent DVTs and his city dispatch supervisor started him on fondaparinux(antithrombin 3 inhibitor) subcutaneous on 09/20/2022 after he was diagnosed with recurrence/progression of his left lower extremity DVT. Patient states that over the past week both of his lower extremities have been very painful and swollen. He states the pain is a constant, throbbing pain. He states that the pain is now worse in his right lower extremity than his left. He also states that over the past 1-2 weeks he has developed a cough shortness of breath. He states the cough is nonproductive. He states he has had subjective fever but no chills. Denied rhinorrhea, sore throat. He denied nausea, vomiting or diarrhea. The patient does see Dr. Carson Agustin who is a city dispatch supervisor at [facility]. <Teofilo Cortez MD - Last Filed: 10/08/22 17:21> Related Data Home Medications: Home Medications Medication Instructions Recorded Confirmed dabigatran etexilate 75 mg capsule 75 mg PO BID 06/13/21 07/14/21 Previous Rx's Medication Instructions Recorded ciprofloxacin HCl 250 mg tablet 250 mg PO Q12H #14 tabs 08/16/20 metronidazole 500 mg tablet 500 mg PO Q12H #14 tabs 08/16/20 (Flagyl) ondansetron HCl 4 mg tablet 4 mg PO Q8H PRN nausea and 08/16/20 (Zofran) vomiting #10 tabs hydrocortisone 2.5 % topical cream 1 appl MO DAILY #30 grams 05/26/21 with perineal applicator (Procto-Med HC) ibuprofen 600 mg tablet 600 mg PO Q8H PRN pain #15 tabs 05/26/21 hydromorphone 2 mg tablet 2 mg PO Q8H PRN pain #10 tabs 06/22/21 (Dilaudid) ondansetron 4 mg disintegrating 4 mg PO ONCE PRN nausea and 01/26/22 tablet vomiting #10 tabs amoxicillin 500 mg capsule 1,000 mg PO BID 5 days #20 caps 10/08/22 azithromycin 250 mg tablet See Rx Instructions PO .COMPLEX #6 10/08/22 (Zithromax Z-Tye) tabs morphine 15 mg immediate release 15 mg PO Q4-6H PRN pain #14 tabs 10/08/22 tablet <ANA Dasilva - Last Filed: 10/08/22 12:39> Allergies/Adverse Reactions: Allergies Allergy/AdvReac Type Severity Reaction Status Date / Time influenza virus vaccine, Allergy Severe GUILLIAN Verified 04/18/22 15:52 specific BARRE HX. [FLU VACCINE] tramadol [TRAMADOL] Allergy Severe SEIZURES Verified 04/18/22 15:52 acetaminophen [From PERCOCET] Allergy Intermediate ITCHING Verified 04/18/22 15:52 carbamazepine [From TEGRETOL] Allergy Intermediate HALLUCINATI Verified 04/18/22 15:52 ONS lamotrigine [From LAMICTAL] Allergy Intermediate ITCHING Verified 04/18/22 15:52 metoclopramide [From REGLAN] Allergy Intermediate ITCHY Verified 04/18/22 15:52 oxycodone [From PERCOCET] Allergy Intermediate ITCHING Verified 04/18/22 15:52 SEAFOOD Allergy Severe ANAPHYLAXIS Uncoded 03/07/22 10:33 <ANA Dasilva - Last Filed: 10/08/22 12:39> Review of Systems Review of Systems: Yes all other systems are reviewed and are negative <Teofilo Cortez MD - Last Filed: 10/08/22 17:21> FOR[facility]LY [facility], [facility] Past Medical History Attestation statement: The following information was validated with the patient. <Teofilo Cortez MD - Last Filed: 10/08/22 17:21> [facility], [facility] Narrative: Social history: He denies tobacco, alcohol and drug use. <Teofiol Cortez MD - Last Filed: 10/08/22 17:21> Medical History: Medical History COVID-19 Diabetes DVT (deep venous thrombosis) HIV (human immunodeficiency virus infection) Left sided abdominal pain Seizure disorder <ANA Dasilva - Last Filed: 10/08/22 12:39> Surgical History: Surgical History H/O fasciotomy S/P AAA (abdominal aortic aneurysm) repair S/P IVC filter Status post cholecystectomy Status post laparoscopic appendectomy <ANA Dasilva - Last Filed: 10/08/22 12:39> Social History Social History: Social History Alcohol intake: unknown Patient Tobacco Use Status: Former Tobacco user Smoked in Last 30 Days: No Use of substances other than those prescribed or required for medical reasons: No Advance Directives: No Advance Directives Information Provided: No <ANA Dasilva - Last Filed: 10/08/22 12:39> Physical Exam Vital Signs: Vital Signs: Last Vital Signs Temp 98.8 F 10/08/22 13:01 Pulse 118 H 10/08/22 15:24 Resp 20 10/08/22 15:24 BP 114/55 L 10/08/22 15:24 Pulse Ox 97 10/08/22 15:24 O2 Del Method 10/08/22 15:24 BMI result Body Mass Index 27.6 <ANA Dasilva - Last Filed: 10/08/22 12:39> Vital Signs: Last Vital Signs Temp 98.8 F 10/08/22 13:01 Pulse 118 H 10/08/22 15:24 Resp 20 10/08/22 15:24 BP 114/55 L 10/08/22 15:24 Pulse Ox 97 10/08/22 15:24 O2 Del Method 10/08/22 15:24 BMI result Body Mass Index 27.6 <Teofilo Cortez MD - Last Filed: 10/08/22 17:21> Const: Other: Awake, alert, male patient, pleasant, cooperative, answers all questions appropriately, does not appear to be in distress <Teofilo Cortez MD - Last Filed: 10/08/22 17:21> HEENT: Head: Yes normal to inspection, Yes normocephalic and Yes atraumatic <Teofilo Cortez MD - Last Filed: 10/08/22 17:21> Ears: external ears normal <Teofilo Cortez MD - Last Filed: 10/08/22 17:21> General nose exam: Normal external nose present <Teofilo Cortez MD - Last Filed: 10/08/22 17:21> Face and sinus: Yes normal facial exam <Teofilo Cortez MD - Last Filed: 10/08/22 17:21> Mouth: Normal oral and palatal mucosa present <Teofilo Cortez MD - Last Filed: 10/08/22 17:21> Throat: Yes posterior oropharynx normal <Teofilo Cortez MD - Last Filed: 10/08/22 17:21> Eyes: General: appearance normal, both eyes and all related structures <Teofilo Cortez MD - Last Filed: 10/08/22 17:21> Pupils: Equal, round and reactive pupils present <Teofilo Cortez MD - Last Filed: 10/08/22 17:21> Neck: Neck: Yes normal visual inspection, Yes no lymphadenopathy, Yes trachea midline and Yes supple <Teofilo Cortez MD - Last Filed: 10/08/22 17:21> Chest: Chest palpation & inspection: normal inspection of the chest and normal palpation of entire chest wall <Teofilo Cortez MD - Last Filed: 10/08/22 17:21> Resp: Effort & Inspection: normal respiratory effort and able to speak in complete sentences <Teofilo Cortez MD - Last Filed: 10/08/22 17:21> Auscultation: rhonchi and wheezes <Teofilo Cortez MD - Last Filed: 10/08/22 17:21> Cardio: Rate: regular rate <Teofilo Cortez MD - Last Filed: 10/08/22 17:21> Rhythm: regular rhythm <Teofilo Cortez MD - Last Filed: 10/08/22 17:21> Heart sounds: S1 normal heart sound present, S2 normal heart sound present and no murmurs <Teofilo Cortez MD - Last Filed: 10/08/22 17:21> GI: Inspection: Yes normal to inspection <Teofilo Cortez MD - Last Filed: 10/08/22 17:21> Palpation (GI): Soft to palpation, nontender and no guarding <Teofilo Cortez MD - Last Filed: 10/08/22 17:21> Auscultation: normal bowel sounds <Teofilo Cortez MD - Last Filed: 10/08/22 17:21> : General: Yes no CVA tenderness <Teofilo Cortez MD - Last Filed: 10/08/22 17:21> Back/Spine/Pelvis: Back: no CVA tenderness <Teofilo Cortez MD - Last Filed: 10/08/22 17:21> Skin: General skin exam: no rashes or lesions noted <Teofilo Cortez MD - Last Filed: 10/08/22 17:21> Neuro: Cranial nerves: Yes CN's II-XII intact bilaterally and Yes Equal, round and reactive pupils present <Teofilo Cortez MD - Last Filed: 10/08/22 17:21> Cognition (Neuro): normal cognition <Teofilo Cortez MD - Last Filed: 10/08/22 17:21> Motor exam (neuro): 5/5 motor strength present throughout <Teofilo Cortez MD - Last Filed: 10/08/22 17:21> Extrem: Other: Both lower extremities work symmetrically swollen, has tenderness palpation his thighs bilaterally and mass bilaterally extremities are neurovascular intact <Teofilo Cortez MD - Last Filed: 10/08/22 17:21> Psych: Appearance: grossly normal <Teofilo Cortez MD - Last Filed: 10/08/22 17:21> Speech and movement: Normal speech and movement present <Teofilo Cortez MD - Last Filed: 10/08/22 17:21> Affect: normal affect <Teofilo Cortez MD - Last Filed: 10/08/22 17:21> Attitude: cooperative <Teofilo Cortez MD - Last Filed: 10/08/22 17:21> Thought process: Normal thought process present <Teofilo Cortez MD - Last Filed: 10/08/22 17:21> Thought content: Normal thought content present <Teofilo Cortez MD - Last Filed: 10/08/22 17:21> Course Course Course Narrative: RME- 12:40pm 47 yo male with history of HIV, AAA s/p aortic endograft, seizure disorder, b/l LE DVT on Fondaparinux, DM, PVD s/p bypass, occluded popliteal artery aneurysm, hx cholecystectomy and appendectomy, hx diverticulitis s/p sigmoid resection 2019 and asthma who is was presenting to the ER with complaints of 2 weeks of productive cough with shortness of breath/wheezing and worsening bilateral leg pain. On exam patient is in acute respiratory distress with decreased breath sounds and inspiratory and expiratory wheezes throughout although oxygen saturation 98% on room air. Therefore he will be brought straight into the ED for breathing treatment, labs, 125 mg of IV Solu-Medrol, 2 g of magnesium. I ordered labs, blood cultures, lactic acid, chest x-ray, EKG, hour long breathing treatment, 2 g of magnesium and 125 mg of Solu-Medrol. <ANA Dasilva - Last Filed: 10/08/22 12:39> Medications Administered Discontinued Medications Generic Name Dose Route Start Last Admin Trade Name [place] PRN Reason Stop Dose Admin Albuterol Sulfate 10 mg 10/08/22 12:37 10/08/22 13:26 Albuterol Sulfate (0.083%) 2.5 Mg/3 Ml Vial.Neb INHALE 10/08/22 12:38 10 mg ONCE ONE Administration Amoxicillin 1,000 mg 10/08/22 16:45 10/08/22 17:05 Amoxicillin 500 Mg Capsule PO 10/08/22 16:46 1,000 mg ONCE ONE Administration Azithromycin 500 mg 10/08/22 16:45 10/08/22 17:06 Azithromycin 500 Mg Tablet PO 10/08/22 16:46 500 mg ONCE ONE Administration Magnesium Sulfate 2 gm in 50 mls @ 25 mls/hr 10/08/22 12:37 10/08/22 13:13 Magnesium Sulfate/H2o IV 10/08/22 14:36 Infused ONCE ONE Infusion Lactated Ringer's 1,000 mls @ 999 mls/hr 10/08/22 15:15 10/08/22 17:05 Lr IV 10/08/22 16:15 Infused .Q1H1M HAYLEY Infusion Iohexol 100 ml 10/08/22 16:05 10/08/22 16:06 Iohexol 350 Mg/Ml 100 Ml Infus..Btl IV 10/08/22 16:06 65 ml ONCE ONE Administration Methylprednisolone Sodium Succinate 125 mg 10/08/22 12:37 10/08/22 12:56 Methylprednisolone Sod Succ 125 Mg/2 Ml Vial IVPUSH 10/08/22 12:38 125 mg ONCE ONE Administration Morphine Sulfate 4 mg 10/08/22 15:00 10/08/22 15:22 Morphine Sulfate 4 Mg/Ml Cartridge IVPUSH 10/08/22 15:01 4 mg ONCE STA Administration Protocol <ANA Dasilva - Last Filed: 10/08/22 12:39> Medications Administered Discontinued Medications Generic Name Dose Route Start Last Admin Trade Name Seb PRN Reason Stop Dose Admin Albuterol Sulfate 10 mg 10/08/22 12:37 10/08/22 13:26 Albuterol Sulfate (0.083%) 2.5 Mg/3 Ml Vial.Neb INHALE 10/08/22 12:38 10 mg ONCE ONE Administration Amoxicillin 1,000 mg 10/08/22 16:45 10/08/22 17:05 Amoxicillin 500 Mg Capsule PO 10/08/22 16:46 1,000 mg ONCE ONE Administration Azithromycin 500 mg 10/08/22 16:45 10/08/22 17:06 Azithromycin 500 Mg Tablet PO 10/08/22 16:46 500 mg ONCE ONE Administration Magnesium Sulfate 2 gm in 50 mls @ 25 mls/hr 10/08/22 12:37 10/08/22 13:13 Magnesium Sulfate/H2o IV 10/08/22 14:36 Infused ONCE ONE Infusion Lactated Ringer's 1,000 mls @ 999 mls/hr 10/08/22 15:15 10/08/22 17:05 Lr IV 10/08/22 16:15 Infused .Q1H1M HAYLEY Infusion Iohexol 100 ml 10/08/22 16:05 10/08/22 16:06 Iohexol 350 Mg/Ml 100 Ml Infus..Btl IV 10/08/22 16:06 65 ml ONCE ONE Administration Methylprednisolone Sodium Succinate 125 mg 10/08/22 12:37 10/08/22 12:56 Methylprednisolone Sod Succ 125 Mg/2 Ml Vial IVPUSH 10/08/22 12:38 125 mg ONCE ONE Administration Morphine Sulfate 4 mg 10/08/22 15:00 10/08/22 15:22 Morphine Sulfate 4 Mg/Ml Cartridge IVPUSH 10/08/22 15:01 4 mg ONCE STA Administration Protocol <Teofilo Cortez MD - Last Filed: 10/08/22 17:21> Medical Decision Making Medical Decision Making MDM Narrative: 47-year-old male with complicated past medical history which includes recurrent DVTs and failure of multiple anticoagulant regimens who was diagnosed recently with progression/recurrence of a left lower extremity DVT (patient states that he was told that he has an 8 cm clot and his left thigh). Patient is now on Fonaparinux (antithrombin 3 inhibitor) subcutaneous the and states that both legs are more painful and swollen than previously and he now also has a cough, chest pain and shortness of breath for 1-2 weeks. Vital signs did reveal tachycardia with a pulse of 100 with an O2 saturation of 98% on room air. He was also afebrile. Patient's lung exam revealed diffuse rhonchi and wheezing in his lower extremities are symmetrically swollen and tender to palpation. Laboratory evaluation was ordered including CBC, CMP, PT/INR, PTT, BNP, troponin, lactic acid, magnesium, blood cultures x2. COVID-19 and influenza test were ordered as well. Duplex venous ultrasound of the lower extremities was also ordered. CT pulmonary angiogram PE protocol be obtained as well. Patient was treated with morphine 4 mg IV for his chest pain and leg pain . He is also ordered to get normal saline x1 L. Patient was also treated with an albuterol nebulizer for his wheezing. 1513: My independent interpretation of the patient's laboratory evaluation is as follows: CBC was normal. CO2 low 16, glucose elevated 231, lactic acid elevated 2.7, AST elevated 39, alk-phos elevated 138. COVID-19 was negative. BNP was less than 10. Chest x-ray on my review revealed no acute infiltrates however radiology felt that the patient may have had pulmonary edema. CT scan pulmonary angiogram PE protocol radiology interpreted was that there was no significant PE or airspace disease. Duplex ultrasound of the right lower extremity revealed no acute DVT, duplex ultrasound the left lower extremity revealed chronic DVT only with no acute DVT. Given these findings, I do not have a clear etiology for the patient's pain but he did get some improvement with IV morphine x2 doses therefore I will prescribe morphine for his pain. I am concerned about the patient's cough and he will be treated for bronchitis with amoxicillin 1000 mg twice a day and Zithromax Z-Tye. He was given his 1st dose of these medications here in the emergency department. <Teofilo Cortez MD - Last Filed: 10/08/22 17:21> Lab Data Result Diagrams: 10/08/22 12:53 10/08/22 12:53 <ANA Dasilva - Last Filed: 10/08/22 12:39> Labs: Lab Results 10/08/22 10/08/22 10/08/22 Range/Units 12:52 12:53 12:53 WBC 6.2 (4.8-10.8) X10*3/uL RBC 4.47 L (4.60-5.80) X10*6/uL Hgb 12.7 L (14.0-18.0) g/dl Hct 39.6 L (42.0-52.0) % MCV 88.6 (80.0-98.0) fL MCH 28.4 (27.0-33.0) pg MCHC 32.1 (31.0-36.0) g/dl RDW 16.1 H (11.0-16.0) % Plt Count 190 (160-400) X10*3/uL MPV 9.9 (9.4-12.4) fL Immature Gran % (Auto) 0.3 (0.0-0.4) % Neut % (Auto) 58.8 (45-73) % Lymph % (Auto) 29.7 (20-40) % [place] % (Auto) 9.9 (2-11) % Eos % (Auto) 0.8 (0-4) % Baso % (Auto) 0.5 (0-2) % Lymph # (Auto) 1.8 (1.2-4.9) X10*3/uL [place] # (Auto) 0.6 (0.1-1.2) X10*3/uL Eos # (Auto) 0.1 (0.0-0.4) X10*3/uL Baso # (Auto) 0.0 (0.0-0.2) X10*3/uL Abs Immat Gran (auto) 0.02 (0.00-0.03) X10*3/uL Absolute Neuts (auto) 3.6 (2.0-8.3) x10*3/uL Absolute Nucleated RBC 0.000 (0.0-0.012) X10*3/uL Nucleated RBC % (auto) 0.0 (0.0-0.2) /100WBC PT (10.0-13.1) SEC INR (0.9-1.1) APTT (26.0-36.4) SEC Sodium (135-145) mmol/L Potassium (3.3-5.1) mmol/L Chloride (96-108) mmol/L Carbon Dioxide (22-29) mmol/L Anion Gap (12-20) BUN (9-16) mg/dL Creatinine (0.5-1.4) mg/dL Estim Creat Clear Calc Estimated GFR Random Glucose (60-115) mg/dL Lactic Acid 2.7 H* (0.5-2.0) mmol/L Lactic Acid F/U @ 2Hr (0.5-2.0) mmol/L Calcium (8.4-10.2) mg/dL Magnesium (1.6-2.6) mg/dL Total Bilirubin (0.0-1.0) mg/dL AST (5-37) U/L ALT (0-40) U/L Alkaline Phosphatase (39-117) U/L Troponin I High Sens < 3.5 (<3.5-35.0) ng/L B-Natriuretic Peptide (<100) pg/mL Total Protein (6.5-8.0) g/dL Albumin (3.5-5.0) g/dL 10/08/22 10/08/22 10/08/22 Range/Units 12:53 14:24 14:24 WBC (4.8-10.8) X10*3/uL RBC (4.60-5.80) X10*6/uL Hgb (14.0-18.0) g/dl Hct (42.0-52.0) % MCV (80.0-98.0) fL MCH (27.0-33.0) pg MCHC (31.0-36.0) g/dl RDW (11.0-16.0) % Plt Count (160-400) X10*3/uL MPV (9.4-12.4) fL Immature Gran % (Auto) (0.0-0.4) % Neut % (Auto) (45-73) % Lymph % (Auto) (20-40) % [place] % (Auto) (2-11) % Eos % (Auto) (0-4) % Baso % (Auto) (0-2) % Lymph # (Auto) (1.2-4.9) X10*3/uL [place] # (Auto) (0.1-1.2) X10*3/uL Eos # (Auto) (0.0-0.4) X10*3/uL Baso # (Auto) (0.0-0.2) X10*3/uL Abs Immat Gran (auto) (0.00-0.03) X10*3/uL Absolute Neuts (auto) (2.0-8.3) x10*3/uL Absolute Nucleated RBC (0.0-0.012) X10*3/uL Nucleated RBC % (auto) (0.0-0.2) /100WBC PT 12.8 (10.0-13.1) SEC INR 1.1 (0.9-1.1) APTT 31.6 (26.0-36.4) SEC Sodium 136 (135-145) mmol/L Potassium 3.6 (3.3-5.1) mmol/L Chloride 106 (96-108) mmol/L Carbon Dioxide 16 L (22-29) mmol/L Anion Gap 18 (12-20) BUN 13 (9-16) mg/dL Creatinine 1.13 (0.5-1.4) mg/dL Estim Creat Clear Calc 79.0 Estimated GFR > 60 Random Glucose 231 H (60-115) mg/dL Lactic Acid (0.5-2.0) mmol/L Lactic Acid F/U @ 2Hr (0.5-2.0) mmol/L Calcium 8.6 (8.4-10.2) mg/dL Magnesium 2.4 (1.6-2.6) mg/dL Total Bilirubin 0.4 (0.0-1.0) mg/dL AST 39 H (5-37) U/L ALT 38 (0-40) U/L Alkaline Phosphatase 138 H (39-117) U/L Troponin I High Sens (<3.5-35.0) ng/L B-Natriuretic Peptide < 10 (<100) pg/mL Total Protein 9.2 H (6.5-8.0) g/dL Albumin 3.9 (3.5-5.0) g/dL 10/08/22 Range/Units 15:41 WBC (4.8-10.8) X10*3/uL RBC (4.60-5.80) X10*6/uL Hgb (14.0-18.0) g/dl Hct (42.0-52.0) % MCV (80.0-98.0) fL MCH (27.0-33.0) pg MCHC (31.0-36.0) g/dl RDW (11.0-16.0) % Plt Count (160-400) X10*3/uL MPV (9.4-12.4) fL Immature Gran % (Auto) (0.0-0.4) % Neut % (Auto) (45-73) % Lymph % (Auto) (20-40) % [place] % (Auto) (2-11) % Eos % (Auto) (0-4) % Baso % (Auto) (0-2) % Lymph # (Auto) (1.2-4.9) X10*3/uL [place] # (Auto) (0.1-1.2) X10*3/uL Eos # (Auto) (0.0-0.4) X10*3/uL Baso # (Auto) (0.0-0.2) X10*3/uL Abs Immat Gran (auto) (0.00-0.03) X10*3/uL Absolute Neuts (auto) (2.0-8.3) x10*3/uL Absolute Nucleated RBC (0.0-0.012) X10*3/uL Nucleated RBC % (auto) (0.0-0.2) /100WBC PT (10.0-13.1) SEC INR (0.9-1.1) APTT (26.0-36.4) SEC Sodium (135-145) mmol/L Potassium (3.3-5.1) mmol/L Chloride (96-108) mmol/L Carbon Dioxide (22-29) mmol/L Anion Gap (12-20) BUN (9-16) mg/dL Creatinine (0.5-1.4) mg/dL Estim Creat Clear Calc Estimated GFR Random Glucose (60-115) mg/dL Lactic Acid (0.5-2.0) mmol/L Lactic Acid F/U @ 2Hr 6.5 H* (0.5-2.0) mmol/L Calcium (8.4-10.2) mg/dL Magnesium (1.6-2.6) mg/dL Total Bilirubin (0.0-1.0) mg/dL AST (5-37) U/L ALT (0-40) U/L Alkaline Phosphatase (39-117) U/L Troponin I High Sens (<3.5-35.0) ng/L B-Natriuretic Peptide (<100) pg/mL Total Protein (6.5-8.0) g/dL Albumin (3.5-5.0) g/dL <ANA Dasilva - Last Filed: 10/08/22 12:39> Lab Results 10/08/22 10/08/22 10/08/22 Range/Units 12:52 12:53 12:53 WBC 6.2 (4.8-10.8) X10*3/uL RBC 4.47 L (4.60-5.80) X10*6/uL Hgb 12.7 L (14.0-18.0) g/dl Hct 39.6 L (42.0-52.0) % MCV 88.6 (80.0-98.0) fL MCH 28.4 (27.0-33.0) pg MCHC 32.1 (31.0-36.0) g/dl RDW 16.1 H (11.0-16.0) % Plt Count 190 (160-400) X10*3/uL MPV 9.9 (9.4-12.4) fL Immature Gran % (Auto) 0.3 (0.0-0.4) % Neut % (Auto) 58.8 (45-73) % Lymph % (Auto) 29.7 (20-40) % [place] % (Auto) 9.9 (2-11) % Eos % (Auto) 0.8 (0-4) % Baso % (Auto) 0.5 (0-2) % Lymph # (Auto) 1.8 (1.2-4.9) X10*3/uL [place] # (Auto) 0.6 (0.1-1.2) X10*3/uL Eos # (Auto) 0.1 (0.0-0.4) X10*3/uL Baso # (Auto) 0.0 (0.0-0.2) X10*3/uL Abs Immat Gran (auto) 0.02 (0.00-0.03) X10*3/uL Absolute Neuts (auto) 3.6 (2.0-8.3) x10*3/uL Absolute Nucleated RBC 0.000 (0.0-0.012) X10*3/uL Nucleated RBC % (auto) 0.0 (0.0-0.2) /100WBC PT (10.0-13.1) SEC INR (0.9-1.1) APTT (26.0-36.4) SEC Sodium (135-145) mmol/L Potassium (3.3-5.1) mmol/L Chloride (96-108) mmol/L Carbon Dioxide (22-29) mmol/L Anion Gap (12-20) BUN (9-16) mg/dL Creatinine (0.5-1.4) mg/dL Estim Creat Clear Calc Estimated GFR Random Glucose (60-115) mg/dL Lactic Acid 2.7 H* (0.5-2.0) mmol/L Lactic Acid F/U @ 2Hr (0.5-2.0) mmol/L Calcium (8.4-10.2) mg/dL Magnesium (1.6-2.6) mg/dL Total Bilirubin (0.0-1.0) mg/dL AST (5-37) U/L ALT (0-40) U/L Alkaline Phosphatase (39-117) U/L Troponin I High Sens < 3.5 (<3.5-35.0) ng/L B-Natriuretic Peptide (<100) pg/mL Total Protein (6.5-8.0) g/dL Albumin (3.5-5.0) g/dL 10/08/22 10/08/22 10/08/22 Range/Units 12:53 14:24 14:24 WBC (4.8-10.8) X10*3/uL RBC (4.60-5.80) X10*6/uL Hgb (14.0-18.0) g/dl Hct (42.0-52.0) % MCV (80.0-98.0) fL MCH (27.0-33.0) pg MCHC (31.0-36.0) g/dl RDW (11.0-16.0) % Plt Count (160-400) X10*3/uL MPV (9.4-12.4) fL Immature Gran % (Auto) (0.0-0.4) % Neut % (Auto) (45-73) % Lymph % (Auto) (20-40) % [place] % (Auto) (2-11) % Eos % (Auto) (0-4) % Baso % (Auto) (0-2) % Lymph # (Auto) (1.2-4.9) X10*3/uL [place] # (Auto) (0.1-1.2) X10*3/uL Eos # (Auto) (0.0-0.4) X10*3/uL Baso # (Auto) (0.0-0.2) X10*3/uL Abs Immat Gran (auto) (0.00-0.03) X10*3/uL Absolute Neuts (auto) (2.0-8.3) x10*3/uL Absolute Nucleated RBC (0.0-0.012) X10*3/uL Nucleated RBC % (auto) (0.0-0.2) /100WBC PT 12.8 (10.0-13.1) SEC INR 1.1 (0.9-1.1) APTT 31.6 (26.0-36.4) SEC Sodium 136 (135-145) mmol/L Potassium 3.6 (3.3-5.1) mmol/L Chloride 106 (96-108) mmol/L Carbon Dioxide 16 L (22-29) mmol/L Anion Gap 18 (12-20) BUN 13 (9-16) mg/dL Creatinine 1.13 (0.5-1.4) mg/dL Estim Creat Clear Calc 79.0 Estimated GFR > 60 Random Glucose 231 H (60-115) mg/dL Lactic Acid (0.5-2.0) mmol/L Lactic Acid F/U @ 2Hr (0.5-2.0) mmol/L Calcium 8.6 (8.4-10.2) mg/dL Magnesium 2.4 (1.6-2.6) mg/dL Total Bilirubin 0.4 (0.0-1.0) mg/dL AST 39 H (5-37) U/L ALT 38 (0-40) U/L Alkaline Phosphatase 138 H (39-117) U/L Troponin I High Sens (<3.5-35.0) ng/L B-Natriuretic Peptide < 10 (<100) pg/mL Total Protein 9.2 H (6.5-8.0) g/dL Albumin 3.9 (3.5-5.0) g/dL 10/08/22 Range/Units 15:41 WBC (4.8-10.8) X10*3/uL RBC (4.60-5.80) X10*6/uL Hgb (14.0-18.0) g/dl Hct (42.0-52.0) % MCV (80.0-98.0) fL MCH (27.0-33.0) pg MCHC (31.0-36.0) g/dl RDW (11.0-16.0) % Plt Count (160-400) X10*3/uL MPV (9.4-12.4) fL Immature Gran % (Auto) (0.0-0.4) % Neut % (Auto) (45-73) % Lymph % (Auto) (20-40) % [place] % (Auto) (2-11) % Eos % (Auto) (0-4) % Baso % (Auto) (0-2) % Lymph # (Auto) (1.2-4.9) X10*3/uL [place] # (Auto) (0.1-1.2) X10*3/uL Eos # (Auto) (0.0-0.4) X10*3/uL Baso # (Auto) (0.0-0.2) X10*3/uL Abs Immat Gran (auto) (0.00-0.03) X10*3/uL Absolute Neuts (auto) (2.0-8.3) x10*3/uL Absolute Nucleated RBC (0.0-0.012) X10*3/uL Nucleated RBC % (auto) (0.0-0.2) /100WBC PT (10.0-13.1) SEC INR (0.9-1.1) APTT (26.0-36.4) SEC Sodium (135-145) mmol/L Potassium (3.3-5.1) mmol/L Chloride (96-108) mmol/L Carbon Dioxide (22-29) mmol/L Anion Gap (12-20) BUN (9-16) mg/dL Creatinine (0.5-1.4) mg/dL Estim Creat Clear Calc Estimated GFR Random Glucose (60-115) mg/dL Lactic Acid (0.5-2.0) mmol/L Lactic Acid F/U @ 2Hr 6.5 H* (0.5-2.0) mmol/L Calcium (8.4-10.2) mg/dL Magnesium (1.6-2.6) mg/dL Total Bilirubin (0.0-1.0) mg/dL AST (5-37) U/L ALT (0-40) U/L Alkaline Phosphatase (39-117) U/L Troponin I High Sens (<3.5-35.0) ng/L B-Natriuretic Peptide (<100) pg/mL Total Protein (6.5-8.0) g/dL Albumin (3.5-5.0) g/dL <Teofilo Cortez MD - Last Filed: 10/08/22 17:21> Discharge Plan Discharge Clinical Impression: Bronchitis, Chest pain, Bilateral leg pain <ANA Dasilva - Last Filed: 10/08/22 12:39> Patient Disposition: Home, Self-Care <ANA Dasilva - Last Filed: 10/08/22 12:39> Instructions: Acute Bronchitis (ED) <ANA Dasilva - Last Filed: 10/08/22 12:39> Additional Instructions: Your blood work was unremarkable. The CT pulmonary angiogram of your chest revealed no blood clots and no evidence of pneumonia. The ultrasound of your right leg revealed no blood clots. Ultrasound of your left leg revealed old blood clots only with no new blood clots which is very reassuring. I am treating you with antibiotics for bronchitis. Take amoxicillin 500 mg pills, 2 pills every 12 hours for 5 days Take Zithromax (azithromycin) Z-Tye as prescribed. Day 1 take 2 pills, each day after that take 1 pill for total of 5 days. This medication states in your system for 7-10 days and continues to work despite only taking it for 5 days. Take Tylenol (acetaminophen) 500 mg pills, 2 pills every 4 to 6 hours as needed for pain. For pain not relieved by Tylenol take morphine 15 mg pills, 1 pill every 4 hours as needed for pain. This medication can be addicting, if your concerned about addiction do not take this medication or you can ask the pharmacist for less pills than prescribed. This medication will make you sleepy, do not drive or work while taking this medication. Follow-up with your doctor in 2 days. Please return to the emergency department if your symptoms get worse or if you develop any symptoms that are concerning to you. <ANA Dasilva - Last Filed: 10/08/22 12:39> Prescriptions: New amoxicillin 500 mg capsule 1,000 mg PO BID 5 Days Qty: 20 0RF azithromycin [Zithromax Z-Tye] 250 mg tablet See Rx Instructions .ROUTE .COMPLEX Qty: 6 0RF Rx Instructions: take 500 mg today (day 1), then 250 mg for 4 days (days 2-5) morphine 15 mg tablet 15 mg PO Q4-6H PRN (Reason: pain) Qty: 14 0RF Rx Instructions: Patient may request partial fill; Partial Fill upon patient request. No Action metronidazole [Flagyl] 500 mg tablet 500 mg PO Q12H Qty: 14 0RF ciprofloxacin HCl 250 mg tablet 250 mg PO Q12H Qty: 14 0RF ondansetron HCl [Zofran] 4 mg tablet 4 mg PO Q8H PRN (Reason: nausea and vomiting) Qty: 10 0RF ondansetron 4 mg tablet,disintegrating 4 mg PO ONCE PRN (Reason: nausea and vomiting) Qty: 10 0RF hydrocortisone [Procto-Med HC] 2.5 % cream with perineal applicator 1 appl MO DAILY Qty: 30 0RF ibuprofen 600 mg tablet 600 mg PO Q8H PRN (Reason: pain) Qty: 15 0RF hydromorphone [Dilaudid] 2 mg tablet 2 mg PO Q8H PRN (Reason: pain) Qty: 10 0RF dabigatran etexilate 75 mg capsule 75 mg PO BID <ANA Dasilva - Last Filed: 10/08/22 12:39>
--- NOTE | 2022-10-08 12:37 | ECG_ITS ---
Test Reason : CX PAIN Blood Pressure : / mmHG Vent. Rate : 091 BPM Atrial Rate : 091 BPM P-R Int : 146 ms QRS Dur : 088 ms QT Int : 366 ms P-R-T Axes : 041 023 010 degrees QTc Int : 450 ms Normal sinus rhythm Nonspecific T wave abnormality Abnormal ECG When compared with ECG of 22-JUN-2021 13:43, No significant change was found Referred By: Karol Sorto Electronically Signed By:Antonio Medina
[2022-10-08] MEDS: methylPREDNISolone Sod Succ 125 MG/2 ML VIAL IVPUSH (12:56)
[2022-10-08] MEDS: Magnesium Sulfate/H2O 2 GM/50 ML PIGGYBACK IV (12:58)
[2022-10-08 12:59] LABS: Basophils Percent Auto 0.5 % (0-2); Eosinophils Absolute Auto 0.1 X10*3/uL (0.0-0.4); Eosinophils Percent Auto 0.8 % (0-4); Hematocrit 39.6 % (42.0-52.0); Hemoglobin 12.7 g/dl (14.0-18.0); Imm Gran Abs Auto 0.02 X10*3/uL (0.00-0.03); Imm Gran Pct Auto 0.3 % (0.0-0.4); Lymphocytes Absolute Auto 1.8 X10*3/uL (1.2-4.9); Lymphocytes Percent Auto 29.7 % (20-40); MANUAL DIFF FLAG NO; Mean Corpuscular HGB Conc 32.1 g/dl (31.0-36.0); Mean Corpuscular Hemoglobin 28.4 pg (27.0-33.0); Mean Corpuscular Volume 88.6 fL (80.0-98.0); Mean Platelet Volume 9.9 fL (9.4-12.4); Monocytes Absolute Auto 0.6 X10*3/uL (0.1-1.2); Monocytes Percent Auto 9.9 % (2-11); Neutrophils Absolute Auto 3.6 x10*3/uL (2.0-8.3); Neutrophils Percent Auto 58.8 % (45-73); Platelet Count 190 X10*3/uL (160-400); Red Blood Count 4.47 X10*6/uL (4.60-5.80); Red Cell Distribution Width 16.1 % (11.0-16.0); White Blood Count 6.2 X10*3/uL (4.8-10.8)
[2022-10-08 13:01] VITALS: BP 116/68; PULSE 93; RESP 20; TEMP 37.1; O2SAT 96
[2022-10-08 13:13] LABS: Lactic Acid 2.7 mmol/L (0.5-2.0)
[2022-10-08 13:19] LABS: B Type Natriuretic Peptide < 10 pg/mL (<100)
[2022-10-08] MEDS: Albuterol Sulfate (0.083%) 2.5 MG/3 ML VIAL.NEB 10 MG INHALE (13:26)
[2022-10-08 13:28] VITALS: PULSE 78; RESP 18; O2SAT 95
[2022-10-08 13:46] LABS: Troponin-I High Sensitivity < 3.5 ng/L (<3.5-35.0)
[2022-10-08 14:40] LABS: INTERNATIONAL NORM RATIO 1.1 (0.9-1.1); Prothrombin Time 12.8 SEC (10.0-13.1)
[2022-10-08 14:48] LABS: Alanine Aminotransferase 38 U/L (0-40); Albumin Level 3.9 g/dL (3.5-5.0); Alkaline Phosphatase 138 U/L (39-117); Anion Gap 18 (12-20); Aspartate Amino Transferase 39 U/L (5-37); Bilirubin Total 0.4 mg/dL (0.0-1.0); Blood Urea Nitrogen 13 mg/dL (9-16); Calcium 8.6 mg/dL (8.4-10.2); Carbon Dioxide 16 mmol/L (22-29); Chloride 106 mmol/L (96-108); Estimated Glomerular Filt Rate > 60; Glucose Random 231 mg/dL (60-115); Magnesium 2.4 mg/dL (1.6-2.6); Potassium 3.6 mmol/L (3.3-5.1); Sodium 136 mmol/L (135-145); Total Protein 9.2 g/dL (6.5-8.0)
[2022-10-08 14:56] LABS: Reflex Lactate? Lactic Acid Added
[2022-10-08 15:16] LABS: Partial Thromboplastin Time 31.6 SEC (26.0-36.4)
[2022-10-08] MEDS: Morphine Sulfate 4 MG/ML CARTRIDGE IVPUSH ×2 (15:22→17:12)
[2022-10-08] MEDS: Lactated Ringers 1,000 ML 999 ML IV (15:22)
[2022-10-08 15:24] VITALS: BP 114/55; PULSE 118; RESP 20; O2SAT 97
[2022-10-08] MEDS: iohexoL 350 MG/ML 100 ML INFUS..BTL IV (16:06)
[2022-10-08 16:07] LABS: ~Lactic Acid-LAB USE ONLY 6.5 mmol/L (0.5-2.0)
[2022-10-08] MEDS: Amoxicillin 500 MG CAPSULE 1000 MG PO (17:05)
[2022-10-08] MEDS: Azithromycin 500 MG TABLET PO (17:06)
[2022-10-08 17:11] VITALS: BP 104/51; PULSE 104; RESP 20; O2SAT 95
[2022-10-08 17:47] LABS: COVID-19 Test Negative (Negative); IDNOW Serial# 9DB6401D; IDNOW Serial# BCCEAD1C; Influenza A Negative (Negative); Influenza B2 Negative (Negative)
[2022-10-08 17:49] LABS: Reflex Lactate? 2 Y
== END 2022-10-08 17:47 | disposition home or self-care (01) ==
PROVIDERS: Physician Assistant Medical; Emergency Provider Emergency Medicine Emergency Medical Services; PCP Physician Assistant
DX: R07.89 Other chest pain (principal); J40 Bronchitis, not specified as acute or chronic; M79.605 Pain in left leg; M79.604 Pain in right leg; R06.02 Shortness of breath; Z20.822 Contact with and (suspected) exposure to COVID-19; Z20.828 Contact with and (suspected) exposure to other viral communicable diseases; Z79.899 Other long term (current) drug therapy
CPT/HCPCS: 36415; 71046; 71275; 80053; 83605; 83735; 83880; 84484; 85025; 85610; 85730; 87040; 87502; 87635; 93005; 93970; 94640; 99285; J2270; J2930; J3475; Q9967

== ENCOUNTER 2022-10-26 12:35 | Emergency (ER) | payer MEDICARE, MEDICAID, SELFPAY ==
--- NOTE | ~2022-10-26 | US_ITS ---
EXAMINATION: US VENOUS ULTRASOUND WITH DOPPLER LOWER EXTREMITY, LEFT CLINICAL INFORMATION: History of DVTs while on blood thinners. Worsening pain COMPARISON: Ultrasound 10/08/2022 TECHNIQUE: Ultrasound of the deep veins is performed from the hip to the calf with compression sonography and color and pulse Doppler assessment. Spectral analysis with color-flow imaging is performed. FINDINGS: There is chronic thrombus visualized in the left mid and distal superficial femoral and popliteal veins similar to last exam. There is no progression of thrombus to suspect any acute DVT. The left common femoral, greater saphenous, posterior tibial and peroneal veins are patent. If the patient's symptoms persist, followup ultrasound in 5 days 7 days might be of value to exclude proximal propagation from a non-visualized calf vein. US/US venous duplex LE IMPRESSION: Chronic DVT mid and distal superficial femoral and popliteal veins. No acute or new DVT seen.
--- NOTE | ~2022-10-26 | XR_ITS ---
EXAMINATION: XR CHEST CLINICAL INFORMATION: Chest pain. COMPARISON: 10/08/2022 chest radiograph. TECHNIQUE: 2 views of the chest were obtained. FINDINGS: No significant abnormality is noted involving the heart, lungs, mediastinum, bony thorax or soft tissues. XR/XR chest 2V IMPRESSION: No acute cardiopulmonary process.
--- NOTE | ~2022-10-26 | CT_ITS ---
EXAMINATION: CT ANGIOGRAM OF THE CHEST WITH AND WITHOUT CONTRAST (CT PULMONARY ANGIOGRAM FOR PE) CLINICAL INFORMATION: Reason for Exam CP, SOB, elevated dimer, hx DVTs COMPARISON: 10/08/2022 TECHNIQUE: Prior to contrast administration, noncontrast localization images were obtained. Subsequently, multidetector volumetric imaging was performed from the thoracic inlet to below the diaphragms following the administration of 65 mL Omnipaque 350 intravenous contrast. No contrast reaction reported Sagittal, coronal, and MIP oblique sagittal reformatted images were obtained on the CT workstation, uploaded to PACS, and reviewed. This CT examination was performed using dose optimization techniques as appropriate, variously including the following: *Automated exposure control *Adjustment of mA and/or kV according to patient size (this includes techniques or standardized protocols for targeted exams where dose is matched to indication/reason for exam; i.e. extremities or head) *Use of iterative reconstruction technique Total exam dose-length product 337 mGy-cm FINDINGS: QUALITY OF STUDY/CONTRAST BOLUS: Satisfactory. PULMONARY ARTERIES: No central or segmental pulmonary emboli. THORACIC AORTA: No aneurysm or dissection. LUNG: Mild bronchial wall thickening noted. No regions of consolidation bilaterally. Several calcified granulomas are present. PLEURA: No pleural effusion or pneumothorax. MEDIASTINUM: The visualized thyroid gland is unremarkable. There are subcentimeter mediastinal lymph nodes within the range of normal variation. Cardiac size is within normal limits; no pericardial effusion. No evidence of septal bowing or right heart strain. CORONARY ARTERY CALCIFICATION: None visualized on this study. CHEST WALL/AXILLA: No axillary or internal mammary lymphadenopathy. OSSEOUS STRUCTURES: Mild loss of height in the T6 vertebral body appears unchanged. UPPER ABDOMEN: Status post cholecystectomy. Calcified granulomas in the spleen. No reflux of contrast into the hepatic veins to suggest elevated right heart pressures. CT/CT angio chest PE protocol IMPRESSION: 1. No pulmonary embolus identified. 2. Mild bronchial wall thickening suggesting bronchitis. VTE: negative
[2022-10-26 12:57] VITALS: BP 117/70; PULSE 95; RESP 20; TEMP 37; O2SAT 98; BMI 27.6
--- NOTE | 2022-10-26 12:57 | ED_ITS ---
HPI - General Adult General Chief complaint: General Medical Stated complaint: lung pain/blood clots Time Seen by Provider: 10/26/22 17:51 Related Data Home Medications Medication Instructions Recorded Confirmed dabigatran etexilate 75 mg capsule 75 mg PO BID 06/13/21 07/14/21 Previous Rx's Medication Instructions Recorded ciprofloxacin HCl 250 mg tablet 250 mg PO Q12H #14 tabs 08/16/20 metronidazole 500 mg tablet 500 mg PO Q12H #14 tabs 08/16/20 (Flagyl) ondansetron HCl 4 mg tablet 4 mg PO Q8H PRN nausea and 08/16/20 (Zofran) vomiting #10 tabs hydrocortisone 2.5 % topical cream 1 appl HI DAILY #30 grams 05/26/21 with perineal applicator (Procto-Med HC) ibuprofen 600 mg tablet 600 mg PO Q8H PRN pain #15 tabs 05/26/21 hydromorphone 2 mg tablet 2 mg PO Q8H PRN pain #10 tabs 06/22/21 (Dilaudid) ondansetron 4 mg disintegrating 4 mg PO ONCE PRN nausea and 01/26/22 tablet vomiting #10 tabs amoxicillin 500 mg capsule 1,000 mg PO BID 5 days #20 caps 10/08/22 azithromycin 250 mg tablet See Rx Instructions PO .COMPLEX #6 10/08/22 (Zithromax Z-Tye) tabs morphine 15 mg immediate release 15 mg PO Q4-6H PRN pain #14 tabs 10/08/22 tablet benzonatate 100 mg capsule 100 mg PO TID PRN cough #14 caps 10/26/22 morphine 15 mg immediate release 15 mg PO TID PRN pain #10 tabs 04/06/23 tablet ondansetron 4 mg disintegrating 4 mg PO Q8H PRN nausea and 04/06/23 tablet vomiting #20 tabs Allergies Allergy/AdvReac Type Severity Reaction Status Date / Time influenza virus vaccine, Allergy Severe GUILLIAN Verified 04/06/23 15:45 specific BARRE HX. [FLU VACCINE] tramadol [TRAMADOL] Allergy Severe SEIZURES Verified 04/06/23 15:45 acetaminophen [From PERCOCET] Allergy Intermediate ITCHING Verified 04/06/23 15:45 carbamazepine [From TEGRETOL] Allergy Intermediate HALLUCINATI Verified 04/06/23 15:45 ONS lamotrigine [From LAMICTAL] Allergy Intermediate ITCHING Verified 04/06/23 15:45 metoclopramide [From REGLAN] Allergy Intermediate ITCHY Verified 04/06/23 15:45 oxycodone [From PERCOCET] Allergy Intermediate ITCHING Verified 04/06/23 15:45 SEAFOOD Allergy Severe ANAPHYLAXIS Uncoded 04/06/23 15:45 PMFSH Past Medical History Medical History COVID-19 Diabetes DVT (deep venous thrombosis) HIV (human immunodeficiency virus infection) Left sided abdominal pain Seizure disorder Surgical History H/O fasciotomy S/P AAA (abdominal aortic aneurysm) repair S/P IVC filter Status post cholecystectomy Status post laparoscopic appendectomy Social History Social History Alcohol intake: never Patient Tobacco Use Status: Former Tobacco user Advance Directives: No Advance Directives Information Provided: No Physical Exam ED Vital Signs: BMI result Body Mass Index 27.6 Course Course Course Narrative: 47-year-old primarily Mauritian-speaking male presents for evaluation of chest pain, back pain, groin pain and bilateral leg pain. He has a chronic left lower extremity DVT for which he takes Fondopurinix. He was seen here on 10/08/2021 with similar complaints and had a workup which included a CT of the chest which did not show any evidence of PE. Patient complains of continued cough. Of note he was treated with amoxicillin and azithromycin on 10/08/22 Plan for repeat labs and chest x-ray. Patient's vital signs are stable Medications Administered Discontinued Medications Generic Name Dose Route Start Last Admin Trade Name Freq PRN Reason Stop Dose Admin Iohexol 100 ml 10/26/22 22:22 10/26/22 22:22 Iohexol 350 Mg/Ml 100 Ml Infus..Btl IV 10/26/22 22:23 65 ml ONCE ONE Administration Morphine Sulfate 4 mg 10/26/22 22:40 10/26/22 23:01 Morphine Sulfate 4 Mg/Ml Cartridge IVPUSH 10/26/22 22:41 4 mg ONCE ONE Administration Protocol Medical Decision Making Lab Data 10/26/22 14:37 10/26/22 14:37 Labs: Lab Results 10/26/22 10/26/22 10/26/22 Range/Units 14:37 14:37 14:37 WBC 5.0 (4.8-10.8) X10*3/uL RBC 4.76 (4.60-5.80) X10*6/uL Hgb 13.4 L (14.0-18.0) g/dl Hct 42.3 (42.0-52.0) % MCV 88.9 (80.0-98.0) fL MCH 28.2 (27.0-33.0) pg MCHC 31.7 (31.0-36.0) g/dl RDW 15.6 (11.0-16.0) % Plt Count 209 (160-400) X10*3/uL MPV 9.0 L (9.4-12.4) fL Immature Gran % (Auto) 0.2 (0.0-0.4) % Neut % (Auto) 41.4 L (45-73) % Lymph % (Auto) 45.8 H (20-40) % [place] % (Auto) 10.6 (2-11) % Eos % (Auto) 1.2 (0-4) % Baso % (Auto) 0.8 (0-2) % Lymph # (Auto) 2.3 (1.2-4.9) X10*3/uL [place] # (Auto) 0.5 (0.1-1.2) X10*3/uL Eos # (Auto) 0.1 (0.0-0.4) X10*3/uL Baso # (Auto) 0.0 (0.0-0.2) X10*3/uL Abs Immat Gran (auto) 0.01 (0.00-0.03) X10*3/uL Absolute Neuts (auto) 2.1 (2.0-8.3) x10*3/uL Absolute Nucleated RBC 0.000 (0.0-0.012) X10*3/uL Nucleated RBC % (auto) 0.0 (0.0-0.2) /100WBC PT 11.8 (10.0-13.1) SEC INR 1.0 (0.9-1.1) APTT 31.2 (26.0-36.4) SEC D-Dimer High Sensitivty NG/ML Sodium 138 (135-145) mmol/L Potassium 4.3 (3.3-5.1) mmol/L Chloride 105 (96-108) mmol/L Carbon Dioxide 25 (22-29) mmol/L Anion Gap 12 (12-20) BUN 10 (9-16) mg/dL Creatinine 1.23 (0.5-1.4) mg/dL Estim Creat Clear Calc 72.6 Estimated GFR > 60 Random Glucose 142 H (60-115) mg/dL Calcium 9.3 D (8.4-10.2) mg/dL Magnesium 2.1 (1.6-2.6) mg/dL Total Bilirubin 0.5 (0.0-1.0) mg/dL AST 29 (5-37) U/L ALT 29 (0-40) U/L Alkaline Phosphatase 167 H (39-117) U/L Troponin I High Sens (<3.5-35.0) ng/L Total Protein 8.7 H (6.5-8.0) g/dL Albumin 4.1 (3.5-5.0) g/dL 10/26/22 10/26/22 Range/Units 14:37 19:29 WBC (4.8-10.8) X10*3/uL RBC (4.60-5.80) X10*6/uL Hgb (14.0-18.0) g/dl Hct (42.0-52.0) % MCV (80.0-98.0) fL MCH (27.0-33.0) pg MCHC (31.0-36.0) g/dl RDW (11.0-16.0) % Plt Count (160-400) X10*3/uL MPV (9.4-12.4) fL Immature Gran % (Auto) (0.0-0.4) % Neut % (Auto) (45-73) % Lymph % (Auto) (20-40) % [place] % (Auto) (2-11) % Eos % (Auto) (0-4) % Baso % (Auto) (0-2) % Lymph # (Auto) (1.2-4.9) X10*3/uL [place] # (Auto) (0.1-1.2) X10*3/uL Eos # (Auto) (0.0-0.4) X10*3/uL Baso # (Auto) (0.0-0.2) X10*3/uL Abs Immat Gran (auto) (0.00-0.03) X10*3/uL Absolute Neuts (auto) (2.0-8.3) x10*3/uL Absolute Nucleated RBC (0.0-0.012) X10*3/uL Nucleated RBC % (auto) (0.0-0.2) /100WBC PT (10.0-13.1) SEC INR (0.9-1.1) APTT (26.0-36.4) SEC D-Dimer High Sensitivty 338 NG/ML Sodium (135-145) mmol/L Potassium (3.3-5.1) mmol/L Chloride (96-108) mmol/L Carbon Dioxide (22-29) mmol/L Anion Gap (12-20) BUN (9-16) mg/dL Creatinine (0.5-1.4) mg/dL Estim Creat Clear Calc Estimated GFR Random Glucose (60-115) mg/dL Calcium (8.4-10.2) mg/dL Magnesium (1.6-2.6) mg/dL Total Bilirubin (0.0-1.0) mg/dL AST (5-37) U/L ALT (0-40) U/L Alkaline Phosphatase (39-117) U/L Troponin I High Sens < 3.5 (<3.5-35.0) ng/L Total Protein (6.5-8.0) g/dL Albumin (3.5-5.0) g/dL Discharge Plan Discharge Clinical Impression: Chronic leg pain, Acute viral bronchitis Patient Disposition: Home, Self-Care Instructions: Acute Bronchitis (ED) Additional Instructions: Please follow-up with your primary care physician tomorrow. If you have any worsening or new symptoms, please return to the emergency room or call 911 Prescriptions: New benzonatate 100 mg capsule 100 mg PO TID PRN (Reason: cough) Qty: 14 0RF No Action metronidazole [Flagyl] 500 mg tablet 500 mg PO Q12H Qty: 14 0RF ciprofloxacin HCl 250 mg tablet 250 mg PO Q12H Qty: 14 0RF ondansetron HCl [Zofran] 4 mg tablet 4 mg PO Q8H PRN (Reason: nausea and vomiting) Qty: 10 0RF ondansetron 4 mg tablet,disintegrating 4 mg PO ONCE PRN (Reason: nausea and vomiting) Qty: 10 0RF amoxicillin 500 mg capsule 1,000 mg PO BID 5 Days Qty: 20 0RF azithromycin [Zithromax Z-Tye] 250 mg tablet See Rx Instructions .ROUTE .COMPLEX Qty: 6 0RF Rx Instructions: take 500 mg today (day 1), then 250 mg for 4 days (days 2-5) morphine 15 mg tablet 15 mg PO Q4-6H PRN (Reason: pain) Qty: 14 0RF Rx Instructions: Patient may request partial fill; Partial Fill upon patient request. hydrocortisone [Procto-Med HC] 2.5 % cream with perineal applicator 1 appl HI DAILY Qty: 30 0RF ibuprofen 600 mg tablet 600 mg PO Q8H PRN (Reason: pain) Qty: 15 0RF hydromorphone [Dilaudid] 2 mg tablet 2 mg PO Q8H PRN (Reason: pain) Qty: 10 0RF morphine 15 mg tablet 15 mg PO TID PRN (Reason: pain) Qty: 10 0RF Rx Instructions: partial fill okay; Partial Fill upon patient request. ondansetron 4 mg tablet,disintegrating 4 mg PO Q8H PRN (Reason: nausea and vomiting) Qty: 20 0RF dabigatran etexilate 75 mg capsule 75 mg PO BID Interventions: ED Discharge Assessment Last Done: 10/26/22 23:41 Discharge Date/Time: 10/26/22 23:43
--- NOTE | 2022-10-26 13:02 | ECG_ITS ---
Test Reason : lung pain Blood Pressure : / mmHG Vent. Rate : 078 BPM Atrial Rate : 078 BPM P-R Int : 144 ms QRS Dur : 088 ms QT Int : 386 ms P-R-T Axes : 026 051 014 degrees QTc Int : 440 ms Normal sinus rhythm Nonspecific ST abnormality When compared with ECG of 08-OCT-2022 12:56, No significant change was found Referred By: Ramsey Pascal Electronically Signed By:NATASHA DOMINGUEZ MD
[2022-10-26 14:41] LABS: MANUAL DIFF FLAG NO
[2022-10-26 14:44] LABS: Basophils Percent Auto 0.8 % (0-2); Eosinophils Absolute Auto 0.1 X10*3/uL (0.0-0.4); Eosinophils Percent Auto 1.2 % (0-4); Hematocrit 42.3 % (42.0-52.0); Hemoglobin 13.4 g/dl (14.0-18.0); Imm Gran Abs Auto 0.01 X10*3/uL (0.00-0.03); Imm Gran Pct Auto 0.2 % (0.0-0.4); Lymphocytes Absolute Auto 2.3 X10*3/uL (1.2-4.9); Lymphocytes Percent Auto 45.8 % (20-40); Mean Corpuscular HGB Conc 31.7 g/dl (31.0-36.0); Mean Corpuscular Hemoglobin 28.2 pg (27.0-33.0); Mean Corpuscular Volume 88.9 fL (80.0-98.0); Monocytes Absolute Auto 0.5 X10*3/uL (0.1-1.2); Monocytes Percent Auto 10.6 % (2-11); Neutrophils Absolute Auto 2.1 x10*3/uL (2.0-8.3); Neutrophils Percent Auto 41.4 % (45-73); Platelet Count 209 X10*3/uL (160-400); Red Blood Count 4.76 X10*6/uL (4.60-5.80); Red Cell Distribution Width 15.6 % (11.0-16.0)
[2022-10-26 14:51] LABS: Prothrombin Time 11.8 SEC (10.0-13.1)
[2022-10-26 14:54] LABS: Partial Thromboplastin Time 31.2 SEC (26.0-36.4)
[2022-10-26 15:01] LABS: Alanine Aminotransferase 29 U/L (0-40); Albumin Level 4.1 g/dL (3.5-5.0); Alkaline Phosphatase 167 U/L (39-117); Anion Gap 12 (12-20); Aspartate Amino Transferase 29 U/L (5-37); Bilirubin Total 0.5 mg/dL (0.0-1.0); Blood Urea Nitrogen 10 mg/dL (9-16); Calcium 9.3 mg/dL (8.4-10.2); Carbon Dioxide 25 mmol/L (22-29); Chloride 105 mmol/L (96-108); Creatinine Clr Calc Pharmacy 72.6; Estimated Glomerular Filt Rate > 60; Glucose Random 142 mg/dL (60-115); Magnesium 2.1 mg/dL (1.6-2.6); Potassium 4.3 mmol/L (3.3-5.1); Sodium 138 mmol/L (135-145); Total Protein 8.7 g/dL (6.5-8.0)
[2022-10-26 15:14] LABS: Troponin-I High Sensitivity < 3.5 ng/L (<3.5-35.0)
[2022-10-26 18:43] VITALS: BP 109/73; PULSE 74; RESP 18; TEMP 37.1; O2SAT 97
--- NOTE | 2022-10-26 19:03 | ED.GENADULT ---
HPI - General Adult General Chief complaint: General Medical Stated complaint: lung pain/blood clots Time Seen by Provider: 10/26/22 17:51 Source: patient Mode of arrival: ambulatory Limitations: no limitations History of Present Illness HPI narrative: patient comes to the emergency room complaining of bilateral lung pain posteriorly, cough and left lower extremity pain. Approximately 2 and half weeks ago, patient was diagnosed with bronchitis. Patient states that he still keeps coughing. Denies chest pain or shortness of breath. Patient also complaining of left lower extremity pain. Patient states that he has history of multiple DVTs while he has been medicated on warfarin, Lovenox, Eliquis, Xarelto. At this time, patient injects himself with fondaparinux. Patient states that he is compliant with his medications, especially blood thinners. Patient states that the pain is worse, maybe is a little bit more swollen than usual. Related Data Home Medications Medication Instructions Recorded Confirmed dabigatran etexilate 75 mg capsule 75 mg PO BID 06/13/21 07/14/21 Previous Rx's Medication Instructions Recorded ciprofloxacin HCl 250 mg tablet 250 mg PO Q12H #14 tabs 08/16/20 metronidazole 500 mg tablet 500 mg PO Q12H #14 tabs 08/16/20 (Flagyl) ondansetron HCl 4 mg tablet 4 mg PO Q8H PRN nausea and 08/16/20 (Zofran) vomiting #10 tabs hydrocortisone 2.5 % topical cream 1 appl PA DAILY #30 grams 05/26/21 with perineal applicator (Procto-Med HC) ibuprofen 600 mg tablet 600 mg PO Q8H PRN pain #15 tabs 05/26/21 hydromorphone 2 mg tablet 2 mg PO Q8H PRN pain #10 tabs 06/22/21 (Dilaudid) ondansetron 4 mg disintegrating 4 mg PO ONCE PRN nausea and 01/26/22 tablet vomiting #10 tabs amoxicillin 500 mg capsule 1,000 mg PO BID 5 days #20 caps 10/08/22 azithromycin 250 mg tablet See Rx Instructions PO .COMPLEX #6 10/08/22 (Zithromax Z-Tye) tabs morphine 15 mg immediate release 15 mg PO Q4-6H PRN pain #14 tabs 10/08/22 tablet benzonatate 100 mg capsule 100 mg PO TID PRN cough #14 caps 10/26/22 Allergies Allergy/AdvReac Type Severity Reaction Status Date / Time influenza virus vaccine, Allergy Severe GUILLIAN Verified 04/18/22 15:52 specific BARRE HX. [FLU VACCINE] tramadol [TRAMADOL] Allergy Severe SEIZURES Verified 04/18/22 15:52 acetaminophen [From PERCOCET] Allergy Intermediate ITCHING Verified 04/18/22 15:52 carbamazepine [From TEGRETOL] Allergy Intermediate HALLUCINATI Verified 04/18/22 15:52 ONS lamotrigine [From LAMICTAL] Allergy Intermediate ITCHING Verified 04/18/22 15:52 metoclopramide [From REGLAN] Allergy Intermediate ITCHY Verified 04/18/22 15:52 oxycodone [From PERCOCET] Allergy Intermediate ITCHING Verified 04/18/22 15:52 SEAFOOD Allergy Severe ANAPHYLAXIS Uncoded 03/07/22 10:33 Review of Systems Review of Systems: Constitutional : No Weight loss, No Fever, No Chills, No Night Sweats, No Fatigue, No Malaise ENT/Mouth : No Hearing loss, No Ear Pain, No Nasal Congestion, No Sinus Pain, No Hoarseness, No sore throat, No Rhinorrhea, No Swallowing Difficulty Eyes: No Eye Pain, No Swelling, No Redness, No Foreign Body, No Discharge, No Vision Changes Cardiovascular : No Chest Pain, No SOB, No Dyspnea on Exertion, No Orthopnea, No Edema, No Palpitations Respiratory : Complaining of cough for 3 weeks, dry, occasional shortness of breath Gastrointestinal : No Nausea, No Vomiting, No Diarrhea, No Constipation, No abdominal Pain, No Hematochezia, No Melena Genitourinary : no irregular bleeding, No Dysuria, No Urinary Frequency, No Hematuria, No Urinary Incontinence, No Urgency, No Flank Pain, No Urinary Flow Changes, No Hesitancy Musculoskeletal : complaining of acute on chronic lower extremity discomfort especially in the back of the knee and calf on the left side Skin : No Skin Lesions, No rash Neuro : No Weakness, No Numbness, No Paresthesias, No Loss of Consciousness, No Dizziness, No Headache Psych : No Anxiety/Panic, No Depression, No SI/HI/AH/VH, No Social Issues, Heme/Lymph: No Bruising, No Bleeding,No Lymphadenopathy Endocrine : No Polyuria, No Polydipsia, No Temperature Intolerance PMFSH Past Medical History Medical History COVID-19 Diabetes DVT (deep venous thrombosis) HIV (human immunodeficiency virus infection) Left sided abdominal pain Seizure disorder Surgical History H/O fasciotomy S/P AAA (abdominal aortic aneurysm) repair S/P IVC filter Status post cholecystectomy Status post laparoscopic appendectomy Social History Social History Alcohol intake: unknown Patient Tobacco Use Status: Former Tobacco user Advance Directives: No Physical Exam ED Vital Signs: Vital Signs - 24 hr 10/26/22 12:57 10/26/22 18:43 10/26/22 22:01 Temperature 98.6 F 98.8 F 99.2 F Pulse Rate 95 74 80 Respiratory Rate 20 18 16 Blood Pressure 117/70 109/73 113/74 Pulse Oximetry 98 97 98 Oxygen Delivery Method Room Air Room Air Room Air 10/26/22 23:01 Temperature Pulse Rate Respiratory Rate 18 Blood Pressure Pulse Oximetry Oxygen Delivery Method BMI result Body Mass Index 27.6 Const Other: Appearance: Alert. Oriented X3. No acute distress. Eyes: Pupils equal, round and reactive to light. ENT: Pharynx normal. Neck: Normal inspection. Neck supple. No lymph nodes noted. No crepitus CVS: Normal heart rate and rhythm. Pulses normal. Normal S1 and S2 Respiratory: No respiratory distress. Breath sounds normal. No Wheezing. No rales Abdomen: Soft and nontender. No rigidity. No distention. Skin: Skin warm and dry. Normal skin color. Normal skin turgor. Extremities: No lower extremity edema. pain to palpation in the popliteal fossa, pain to palpation over left calf Neuro: Oriented X 3. No motor deficit. No sensory deficit. Moving all extremities. No slurred speech. CN 2 through 12 grossly intact Psych: calm, cooperative, normal affect Course Course Course Narrative: - I discussed with the patient that his x-ray is negative for pneumonia. Patient likely has bronchitis, the cough will last for several weeks. - Is concerning that the patient has left lower extremity pain. Patient has had multiple DVTs while he has been on blood thinners including Eliquis, Xarelto, warfarin, Lovenox. At this time, patient is on fondaparinux. Patient compliant with his medication. Medications Administered Discontinued Medications Generic Name Dose Route Start Last Admin Trade Name Seb PRN Reason Stop Dose Admin Iohexol 100 ml 10/26/22 22:22 10/26/22 22:22 Iohexol 350 Mg/Ml 100 Ml Infus..Btl IV 10/26/22 22:23 65 ml ONCE ONE Administration Morphine Sulfate 4 mg 10/26/22 22:40 10/26/22 23:01 Morphine Sulfate 4 Mg/Ml Cartridge IVPUSH 10/26/22 22:41 4 mg ONCE ONE Administration Protocol Medical Decision Making Medical Decision Making [facility] Narrative: - patient's venous ultrasound did not show any new DVTs in the leg. Patient likely having chronic pain. - patient's CTA for pulmonary embolism is negative. - I discussed the CT findings with the patient, patient likely has bronchitis, patient will be having cough for a few weeks gradually getting better. Differential Diagnosis Differential Diagnoses: The differential diagnosis associated with the presentation includes ( Bronchitis, pulmonary embolism, pneumonia states) Lab Data [facility] Lab Attestation statement: I reviewed the patient's lab results. 10/26/22 14:37 10/26/22 14:37 Labs: Lab Results 10/26/22 10/26/22 10/26/22 Range/Units 14:37 14:37 14:37 WBC 5.0 (4.8-10.8) X10*3/uL RBC 4.76 (4.60-5.80) X10*6/uL Hgb 13.4 L (14.0-18.0) g/dl Hct 42.3 (42.0-52.0) % MCV 88.9 (80.0-98.0) fL MCH 28.2 (27.0-33.0) pg MCHC 31.7 (31.0-36.0) g/dl RDW 15.6 (11.0-16.0) % Plt Count 209 (160-400) X10*3/uL MPV 9.0 L (9.4-12.4) fL Immature Gran % (Auto) 0.2 (0.0-0.4) % Neut % (Auto) 41.4 L (45-73) % Lymph % (Auto) 45.8 H (20-40) % Meeker % (Auto) 10.6 (2-11) % Eos % (Auto) 1.2 (0-4) % Baso % (Auto) 0.8 (0-2) % Lymph # (Auto) 2.3 (1.2-4.9) X10*3/uL Meeker # (Auto) 0.5 (0.1-1.2) X10*3/uL Eos # (Auto) 0.1 (0.0-0.4) X10*3/uL Baso # (Auto) 0.0 (0.0-0.2) X10*3/uL Abs Immat Gran (auto) 0.01 (0.00-0.03) X10*3/uL Absolute Neuts (auto) 2.1 (2.0-8.3) x10*3/uL Absolute Nucleated RBC 0.000 (0.0-0.012) X10*3/uL Nucleated RBC % (auto) 0.0 (0.0-0.2) /100WBC PT 11.8 (10.0-13.1) SEC INR 1.0 (0.9-1.1) APTT 31.2 (26.0-36.4) SEC D-Dimer High Sensitivty NG/ML Sodium 138 (135-145) mmol/L Potassium 4.3 (3.3-5.1) mmol/L Chloride 105 (96-108) mmol/L Carbon Dioxide 25 (22-29) mmol/L Anion Gap 12 (12-20) BUN 10 (9-16) mg/dL Creatinine 1.23 (0.5-1.4) mg/dL Estim Creat Clear Calc 72.6 Estimated GFR > 60 Random Glucose 142 H (60-115) mg/dL Calcium 9.3 D (8.4-10.2) mg/dL Magnesium 2.1 (1.6-2.6) mg/dL Total Bilirubin 0.5 (0.0-1.0) mg/dL AST 29 (5-37) U/L ALT 29 (0-40) U/L Alkaline Phosphatase 167 H (39-117) U/L Troponin I High Sens (<3.5-35.0) ng/L Total Protein 8.7 H (6.5-8.0) g/dL Albumin 4.1 (3.5-5.0) g/dL 10/26/22 10/26/22 Range/Units 14:37 19:29 WBC (4.8-10.8) X10*3/uL RBC (4.60-5.80) X10*6/uL Hgb (14.0-18.0) g/dl Hct (42.0-52.0) % MCV (80.0-98.0) fL MCH (27.0-33.0) pg MCHC (31.0-36.0) g/dl RDW (11.0-16.0) % Plt Count (160-400) X10*3/uL MPV (9.4-12.4) fL Immature Gran % (Auto) (0.0-0.4) % Neut % (Auto) (45-73) % Lymph % (Auto) (20-40) % Meeker % (Auto) (2-11) % Eos % (Auto) (0-4) % Baso % (Auto) (0-2) % Lymph # (Auto) (1.2-4.9) X10*3/uL Meeker # (Auto) (0.1-1.2) X10*3/uL Eos # (Auto) (0.0-0.4) X10*3/uL Baso # (Auto) (0.0-0.2) X10*3/uL Abs Immat Gran (auto) (0.00-0.03) X10*3/uL Absolute Neuts (auto) (2.0-8.3) x10*3/uL Absolute Nucleated RBC (0.0-0.012) X10*3/uL Nucleated RBC % (auto) (0.0-0.2) /100WBC PT (10.0-13.1) SEC INR (0.9-1.1) APTT (26.0-36.4) SEC D-Dimer High Sensitivty 338 NG/ML Sodium (135-145) mmol/L Potassium (3.3-5.1) mmol/L Chloride (96-108) mmol/L Carbon Dioxide (22-29) mmol/L Anion Gap (12-20) BUN (9-16) mg/dL Creatinine (0.5-1.4) mg/dL Estim Creat Clear Calc Estimated GFR Random Glucose (60-115) mg/dL Calcium (8.4-10.2) mg/dL Magnesium (1.6-2.6) mg/dL Total Bilirubin (0.0-1.0) mg/dL AST (5-37) U/L ALT (0-40) U/L Alkaline Phosphatase (39-117) U/L Troponin I High Sens < 3.5 (<3.5-35.0) ng/L Total Protein (6.5-8.0) g/dL Albumin (3.5-5.0) g/dL Independent Interpretation I performed an independent interpretation of an: CT Scan ( my interpretation of CT a for pulmonary embolism: No PE) Radiology Impression Discussion of test interpretation with radiology: I have reviewed the radiologist's reading. Radiologist Impression: INDINGS: QUALITY OF STUDY/CONTRAST BOLUS: Satisfactory. PULMONARY ARTERIES: No central or segmental pulmonary emboli.? THORACIC AORTA: No aneurysm or dissection. LUNG: Mild bronchial wall thickening noted. No regions of consolidation bilaterally. Several calcified granulomas are present. PLEURA: No pleural effusion or pneumothorax. MEDIASTINUM: The visualized thyroid gland is unremarkable. There are subcentimeter mediastinal lymph nodes within the range of normal variation. Cardiac size is within normal limits; no pericardial effusion.? No evidence of septal bowing or right heart strain. CORONARY ARTERY CALCIFICATION: None visualized on this study. CHEST WALL/AXILLA: No axillary or internal mammary lymphadenopathy. OSSEOUS STRUCTURES: Mild loss of height in the T6 vertebral body appears unchanged.? UPPER ABDOMEN: Status post cholecystectomy. Calcified granulomas in the spleen.? No reflux of contrast into the hepatic veins to suggest elevated right heart pressures. CT/CT angio chest PE protocol IMPRESSION: 1.? No pulmonary embolus identified. 2.? Mild bronchial wall thickening suggesting bronchitis. ? VTE: negative ultrasound of left lower extremity FINDINGS: There is chronic thrombus visualized in the left mid and distal superficial femoral and popliteal veins similar to last exam. There is no progression of thrombus to suspect any acute DVT. The left common femoral, greater saphenous, posterior tibial and peroneal veins are patent. If the patient's symptoms persist, followup ultrasound in 5 days 7 days might be of value to exclude proximal propagation from a non-visualized calf vein. 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 ? No acute or new DVT seen. Discharge Plan Discharge Clinical Impression: Chronic leg pain, Acute viral bronchitis Patient Disposition: Home, Self-Care Instructions: Acute Bronchitis (ED) Additional Instructions: Please follow-up with your primary care physician tomorrow. If you have any worsening or new symptoms, please return to the emergency room or call 911 Prescriptions: New benzonatate 100 mg capsule 100 mg PO TID PRN (Reason: cough) Qty: 14 0RF No Action metronidazole [Flagyl] 500 mg tablet 500 mg PO Q12H Qty: 14 0RF ciprofloxacin HCl 250 mg tablet 250 mg PO Q12H Qty: 14 0RF ondansetron HCl [Zofran] 4 mg tablet 4 mg PO Q8H PRN (Reason: nausea and vomiting) Qty: 10 0RF ondansetron 4 mg tablet,disintegrating 4 mg PO ONCE PRN (Reason: nausea and vomiting) Qty: 10 0RF amoxicillin 500 mg capsule 1,000 mg PO BID 5 Days Qty: 20 0RF azithromycin [Zithromax Z-Tye] 250 mg tablet See Rx Instructions .ROUTE .COMPLEX Qty: 6 0RF Rx Instructions: take 500 mg today (day 1), then 250 mg for 4 days (days 2-5) morphine 15 mg tablet 15 mg PO Q4-6H PRN (Reason: pain) Qty: 14 0RF Rx Instructions: Patient may request partial fill; Partial Fill upon patient request. hydrocortisone [Procto-Med HC] 2.5 % cream with perineal applicator 1 appl PA DAILY Qty: 30 0RF ibuprofen 600 mg tablet 600 mg PO Q8H PRN (Reason: pain) Qty: 15 0RF hydromorphone [Dilaudid] 2 mg tablet 2 mg PO Q8H PRN (Reason: pain) Qty: 10 0RF dabigatran etexilate 75 mg capsule 75 mg PO BID
[2022-10-26 19:45] LABS: D Dimer High Sensitivity 338 NG/ML
[2022-10-26 22:01] VITALS: BP 113/74; PULSE 80; RESP 16; TEMP 37.3; O2SAT 98
[2022-10-26] MEDS: iohexoL 350 MG/ML 100 ML INFUS..BTL IV (22:22)
[2022-10-26 23:01] VITALS: RESP 18
[2022-10-26] MEDS: Morphine Sulfate 4 MG/ML CARTRIDGE IVPUSH (23:01)
== END 2022-10-26 23:43 | disposition home or self-care (01) ==
PROVIDERS: Physician Assistant; Emergency Provider Emergency Medicine
DX: R60.0 Localized edema (principal); J20.8 Acute bronchitis due to other specified organisms; R07.89 Other chest pain; M79.605 Pain in left leg; M79.604 Pain in right leg; Z79.899 Other long term (current) drug therapy
CPT/HCPCS: 36415; 71046; 71275; 80053; 83735; 84484; 85025; 85379; 85610; 85730; 93005; 93971; 96374; 99284; J2270; Q9967

== ENCOUNTER 2023-02-21 13:42 | Emergency (ER) | payer MEDICARE, MEDICAID, SELFPAY ==
--- NOTE | ~2023-02-21 | CT_ITS ---
EXAMINATION: CT ABDOMEN AND PELVIS WITH CONTRAST CLINICAL INFORMATION: Left lower quadrant pain. COMPARISON: 05/03/2022 TECHNIQUE: Multidetector volumetric images were obtained from the superior aspect of the liver through the pubic symphysis following administration 85 mL of Omnipaque 350 intravenous contrast. Sagittal and coronal reformatted images were obtained on the technologist's workstation. Oral contrast: No This CT examination was performed using dose optimization techniques as appropriate, variously including the following: *Automated exposure control *Adjustment of mA and/or kV according to patient size (this includes techniques or standardized protocols for targeted exams where dose is matched to indication/reason for exam; i.e. extremities or head) *Use of iterative reconstruction technique DLP: 628 mGy-cm FINDINGS: LUNG BASES: The visualized lung bases are unremarkable. LIVER, GALLBLADDER, AND BILIARY TREE: The liver is enlarged and decreased in attenuation. No focal hepatic lesion or biliary ductal dilatation is present. The gallbladder is surgically absent. PANCREAS: No ductal dilatation. SPLEEN: Chronic granulomatous disease. ADRENAL GLANDS: No adrenal masses. KIDNEYS AND URETERS: The kidneys are symmetric in size and enhancement. No hydronephrosis or perinephric stranding. Cortical scarring lower pole right kidney. BLADDER: Underdistended. GASTROINTESTINAL TRACT: Small and large bowel loops are of normal caliber. There is a surgical anastomosis in the rectosigmoid colon. There is increased enhancement of the submucosa of the rectosigmoid colon. ABDOMINAL WALL: No significant hernia is appreciated. LYMPH NODES: No bulky abdominal or pelvic lymphadenopathy. VASCULAR: Status post aortobiiliac stent placement. PELVIC VISCERA: Enlarged prostate gland. OSSEOUS STRUCTURES: No destructive bone lesions. CT/CT abdomen pelvis w IV con IMPRESSION: Submucosal enhancement of the rectosigmoid colon of uncertain significance. Advise clinical correlation. Hepatomegaly and hepatic steatosis.
--- NOTE | 2023-02-21 13:54 | ED.ABDPAIN ---
HPI - Abdominal Pain General Chief Complaint: Abdominal Pain Stated Complaint: abd pain / blood in stool Time Seen by Provider: 02/21/23 14:26 Source: patient Mode of arrival: ambulatory Limitations: no limitations History of Present Illness HPI narrative: 47-year-old male with history of diverticulitis status post resection presents with abdominal pain, nausea, bloody stool. Symptoms started approximately 2 days ago. He has had blood streaked stool. Pain is severe. The pain is generalized. Does not radiate. There is no clear relieving or exacerbating features. Denies any fevers or chills. He has had nausea and decreased appetite but no vomitus. Symptoms are similar to when he has had diverticulitis in the past. Patient denies any lightheadedness, orthostatic symptoms. Related Data Home Medications Medication Instructions Recorded Confirmed dabigatran etexilate 75 mg capsule 75 mg PO BID 06/13/21 07/14/21 Previous Rx's Medication Instructions Recorded ciprofloxacin HCl 250 mg tablet 250 mg PO Q12H #14 tabs 08/16/20 metronidazole 500 mg tablet 500 mg PO Q12H #14 tabs 08/16/20 (Flagyl) ondansetron HCl 4 mg tablet 4 mg PO Q8H PRN nausea and 08/16/20 (Zofran) vomiting #10 tabs hydrocortisone 2.5 % topical cream 1 appl IN DAILY #30 grams 05/26/21 with perineal applicator (Procto-Med HC) ibuprofen 600 mg tablet 600 mg PO Q8H PRN pain #15 tabs 05/26/21 hydromorphone 2 mg tablet 2 mg PO Q8H PRN pain #10 tabs 06/22/21 (Dilaudid) ondansetron 4 mg disintegrating 4 mg PO ONCE PRN nausea and 01/26/22 tablet vomiting #10 tabs amoxicillin 500 mg capsule 1,000 mg PO BID 5 days #20 caps 10/08/22 azithromycin 250 mg tablet See Rx Instructions PO .COMPLEX #6 10/08/22 (Zithromax Z-Tye) tabs morphine 15 mg immediate release 15 mg PO Q4-6H PRN pain #14 tabs 10/08/22 tablet benzonatate 100 mg capsule 100 mg PO TID PRN cough #14 caps 10/26/22 Allergies Allergy/AdvReac Type Severity Reaction Status Date / Time influenza virus vaccine, Allergy Severe GUILLIAN Verified 02/21/23 13:55 specific BARRE HX. [FLU VACCINE] tramadol [TRAMADOL] Allergy Severe SEIZURES Verified 02/21/23 13:55 acetaminophen [From PERCOCET] Allergy Intermediate ITCHING Verified 02/21/23 13:55 carbamazepine [From TEGRETOL] Allergy Intermediate HALLUCINATI Verified 02/21/23 13:55 ONS lamotrigine [From LAMICTAL] Allergy Intermediate ITCHING Verified 02/21/23 13:55 metoclopramide [From REGLAN] Allergy Intermediate ITCHY Verified 02/21/23 13:55 oxycodone [From PERCOCET] Allergy Intermediate ITCHING Verified 02/21/23 13:55 SEAFOOD Allergy Severe ANAPHYLAXIS Uncoded 02/21/23 13:55 Review of Systems Review of Systems CONSTITUTIONAL: Denies weight loss, fever and chills. HEENT: Denies changes in vision and hearing. RESPIRATORY: Denies SOB and cough. CV: Denies palpitations no CP. GI: + abdominal pain, nausea, - vomiting and +diarrhea. : Denies dysuria and urinary frequency. MSK: Denies myalgia and joint pain. SKIN: Denies rash and pruritus. NEUROLOGICAL: Denies headache and syncope. PSYCHIATRIC: Denies recent changes in mood. Denies anxiety and depression. All other ROS are negative unless in HPI PMFSH Past Medical History Medical History COVID-19 Diabetes DVT (deep venous thrombosis) HIV (human immunodeficiency virus infection) Left sided abdominal pain Seizure disorder Surgical History H/O fasciotomy S/P AAA (abdominal aortic aneurysm) repair S/P IVC filter Status post cholecystectomy Status post laparoscopic appendectomy Social History Social History Alcohol intake: never Patient Tobacco Use Status: Former Tobacco user Smoked in Last 30 Days: No Use of substances other than those prescribed or required for medical reasons: No Advance Directives: No Advance Directives Information Provided: No Physical Exam ED Vital Signs: Vital Signs - 24 hr 02/21/23 13:56 02/21/23 16:14 Temperature 98.2 F Pulse Rate 83 Respiratory Rate 20 18 Blood Pressure 127/72 Pulse Oximetry 97 Oxygen Delivery Method Room Air BMI result Body Mass Index 28.8 GEN: Well developed, no acute distress, alert, oriented HEENT: Normocephalic, atraumatic, normal external ears, nose appears normal, no oropharyngeal edema or exudates Eyes: Normal to appearance Neck: Supple, no lymphadenopathy Respiratory: Talks in complete sentences, no respiratory distress, clear to auscultation bilaterally Cardiovascular: Regular rate and rhythm, no murmurs rubs or gallops Abdomen: Soft, left lower quadrant tenderness, nondistended, no guarding, no rebound Back: No CVA tenderness Extremities: No clubbing cyanosis or edema Neurologic: No focal neurologic deficits, cranial nerves 2-12 intact, strength is 5/5 bilaterally Skin: No rash Course Course Course Narrative: RME: 47yo M w/PMHx AAA, DVT, HIV, Seizure, diverticulitis, on Fondaparinux c/o nausea, nonbloody vomiting, abdominal pain radiating to back, and black and brbpr x5 days. Denies lightheadedness, vomiting VSS Labs, UA, Occult stool ordered Full HPI, ROS and PE to be performed by primary ED provider. Reevaluation(s) Reevaluation #1: Patient has had no improvement with his pain after morphine. Will try Dilaudid at this time. Patient's CT scan has been completed but the results are not back. Time: 16:06 Reevaluation #2: We are currently awaiting CT scan results. Dr. Morley will take over care at this time. Disposition is pending results. Time: 16:27 Reevaluation #3: 47-year-old male who was signed out to me to follow-up on a CT scan. The radiologist is reading and enhancement of the rectosigmoid and I agree with the plan for patient to follow-up with gastroenterology and further assessment. He is otherwise been hemodynamically stable, hemoglobin and hematocrit are stable and he is discharged. Time: 16:45 Medical Decision Making Medical Decision Making MDM Narrative: 47-year-old male presents with hematochezia, abdominal pain history of diverticulitis. Examination revealed tenderness of left lower quadrant. Differential diagnosis includes diverticulitis, colitis, mesenteric adenitis, appendicitis, gastroenteritis, diverticular bleeding, hemorrhoidal bleeding, mesenteric ischemia, doubt aortoenteric fistula. He does have history of AAA. Examination also did not reveal a pulsatile mass. My plan would be to obtain a CT scan the abdomen and pelvis to rule out multitude of diagnoses. Will check a CBC to make sure there is no evidence of anemia. Will check a metabolic panel to make sure there is no significant kidney dysfunction or electrolyte abnormalities that could be contributing to his symptoms. Will re-evaluate patient frequently. Differential Diagnosis Differential Diagnoses: The differential diagnosis associated with the presentation includes (See above) Admission/Observation Consideration of admission/observation: Escalation of care including admission/observation considered (Admission consider pending further medical data, re-evaluation and consideration of acute GI bleed and pain.) Lab Data MDM Lab Attestation statement: I reviewed the patient's lab results. 02/21/23 14:08 02/21/23 14:08 Labs: Lab Results 02/21/23 02/21/23 02/21/23 Range/Units 14:08 14:08 14:08 WBC 5.2 (4.8-10.8) X10*3/uL RBC 4.63 (4.60-5.80) X10*6/uL Hgb 13.1 L (14.0-18.0) g/dl Hct 40.8 L (42.0-52.0) % MCV 88.1 (80.0-98.0) fL MCH 28.3 (27.0-33.0) pg MCHC 32.1 (31.0-36.0) g/dl RDW 15.2 (11.0-16.0) % Plt Count 170 (160-400) X10*3/uL MPV 9.6 (9.4-12.4) fL Immature Gran % (Auto) 0.2 (0.0-0.4) % Neut % (Auto) 42.1 L (45-73) % Lymph % (Auto) 46.6 H (20-40) % Winston % (Auto) 10.3 (2-11) % Eos % (Auto) 0.4 (0-4) % Baso % (Auto) 0.4 (0-2) % Lymph # (Auto) 2.4 (1.2-4.9) X10*3/uL Winston # (Auto) 0.5 (0.1-1.2) X10*3/uL Eos # (Auto) 0.0 (0.0-0.4) X10*3/uL Baso # (Auto) 0.0 (0.0-0.2) X10*3/uL Abs Immat Gran (auto) 0.01 (0.00-0.03) X10*3/uL Absolute Neuts (auto) 2.2 (2.0-8.3) x10*3/uL Absolute Nucleated RBC 0.000 (0.0-0.012) X10*3/uL Nucleated RBC % (auto) 0.0 (0.0-0.2) /100WBC PT 11.6 (10.0-13.1) SEC INR 1.0 (0.9-1.1) Sodium 138 (135-145) mmol/L Potassium 4.1 (3.3-5.1) mmol/L Chloride 107 (96-108) mmol/L Carbon Dioxide 23 (22-29) mmol/L Anion Gap 12 (12-20) BUN 12 (9-16) mg/dL Creatinine 1.08 (0.5-1.4) mg/dL Estim Creat Clear Calc 91.0 Estimated GFR > 60 Random Glucose 187 H (60-115) mg/dL Calcium 9.7 (8.4-10.2) mg/dL Magnesium 2.1 (1.6-2.6) mg/dL Total Bilirubin 0.4 (0.0-1.0) mg/dL Direct Bilirubin 0.1 (0.0-0.5) mg/dL AST 44 H (5-37) U/L ALT 38 (0-40) U/L Alkaline Phosphatase 144 H (39-117) U/L Total Protein 8.7 H (6.5-8.0) g/dL Albumin 4.1 (3.5-5.0) g/dL Lipase 13 (8-78) U/L Urine Color Urine Appearance Urine pH (5.0-9.0) Ur Specific [place] (1.005-1.025) Urine Protein (Neg-Trace) mg/dL Urine Glucose (UA) (Negative) mg/dL Urine Ketones (Negative) mg/dL Urine Blood (Negative) Urine Nitrite (Negative) Ur Leukocyte Esterase (Negative) Urine RBC (0-2) /HPF Urine WBC (0-5) /HPF Ur Squamous Epith Cells (0-2) /HPF Urine Bacteria (None Seen) Hyaline Casts (0-2) /LPF 02/21/23 Range/Units 14:48 WBC (4.8-10.8) X10*3/uL RBC (4.60-5.80) X10*6/uL Hgb (14.0-18.0) g/dl Hct (42.0-52.0) % MCV (80.0-98.0) fL MCH (27.0-33.0) pg MCHC (31.0-36.0) g/dl RDW (11.0-16.0) % Plt Count (160-400) X10*3/uL MPV (9.4-12.4) fL Immature Gran % (Auto) (0.0-0.4) % Neut % (Auto) (45-73) % Lymph % (Auto) (20-40) % Winston % (Auto) (2-11) % Eos % (Auto) (0-4) % Baso % (Auto) (0-2) % Lymph # (Auto) (1.2-4.9) X10*3/uL Winston # (Auto) (0.1-1.2) X10*3/uL Eos # (Auto) (0.0-0.4) X10*3/uL Baso # (Auto) (0.0-0.2) X10*3/uL Abs Immat Gran (auto) (0.00-0.03) X10*3/uL Absolute Neuts (auto) (2.0-8.3) x10*3/uL Absolute Nucleated RBC (0.0-0.012) X10*3/uL Nucleated RBC % (auto) (0.0-0.2) /100WBC PT (10.0-13.1) SEC INR (0.9-1.1) Sodium (135-145) mmol/L Potassium (3.3-5.1) mmol/L Chloride (96-108) mmol/L Carbon Dioxide (22-29) mmol/L Anion Gap (12-20) BUN (9-16) mg/dL Creatinine (0.5-1.4) mg/dL Estim Creat Clear Calc Estimated GFR Random Glucose (60-115) mg/dL Calcium (8.4-10.2) mg/dL Magnesium (1.6-2.6) mg/dL Total Bilirubin (0.0-1.0) mg/dL Direct Bilirubin (0.0-0.5) mg/dL AST (5-37) U/L ALT (0-40) U/L Alkaline Phosphatase (39-117) U/L Total Protein (6.5-8.0) g/dL Albumin (3.5-5.0) g/dL Lipase (8-78) U/L Urine Color Yellow Urine Appearance Clear Urine pH 6.0 (5.0-9.0) Ur Specific [place] >= 1.030 H (1.005-1.025) Urine Protein Trace (Neg-Trace) mg/dL Urine Glucose (UA) >=1000 H (Negative) mg/dL Urine Ketones Trace (Negative) mg/dL Urine Blood Negative (Negative) Urine Nitrite Negative (Negative) Ur Leukocyte Esterase Negative (Negative) Urine RBC 0-2 (0-2) /HPF Urine WBC 0-5 (0-5) /HPF Ur Squamous Epith Cells 0-2 (0-2) /HPF Urine Bacteria None Seen (None Seen) Hyaline Casts 0-2 (0-2) /LPF Independent Interpretation I performed an independent interpretation of an: CT Scan Radiology Impression Discussion of test interpretation with radiology: I have reviewed the radiologist's reading. Prescription Management I considered prescription management with: Pain Medication and Antibiotic Medications Administered Discontinued Medications Generic Name Dose Route Start Last Admin Trade Name Freq PRN Reason Stop Dose Admin Hydromorphone HCl 1 mg 02/21/23 16:01 02/21/23 16:14 Hydromorphone Hcl 1 Mg/Ml Syringe IVPUSH 02/21/23 16:02 1 mg ONCE ONE Administration Protocol Sodium Chloride 1,000 mls @ 999 mls/hr 02/21/23 14:45 02/21/23 15:08 Ns IV 02/21/23 15:45 999 mls/hr .Q1H1M HAYLEY Administration Iohexol 100 ml 02/21/23 15:48 02/21/23 15:48 Iohexol 350 Mg/Ml 100 Ml Infus..Btl IV 02/21/23 15:49 85 ml ONCE ONE Administration Morphine Sulfate 4 mg 02/21/23 14:31 02/21/23 15:09 Morphine Sulfate 4 Mg/Ml Cartridge IVPUSH 02/21/23 14:32 4 mg ONCE ONE Administration Protocol Ondansetron HCl 4 mg 02/21/23 14:31 02/21/23 15:08 Ondansetron Hcl 4 Mg/2 Ml Vial IVPUSH 02/21/23 14:32 4 mg ONCE ONE Administration Discharge Plan Discharge Clinical Impression: Abdominal pain, Acute lower gastrointestinal bleeding Patient Disposition: Home, Self-Care Instructions: Gastrointestinal Bleeding (ED), Abdominal Pain (ED) Additional Instructions: 1. Resume all home medications. 2. You will need to follow-up with gastroenterology, a referral has been provided to you below and you should call the office 1st thing in the morning. 3. Also follow-up with your primary care provider in the next 1-2 days. Return to the ER for any worsening symptoms. Prescriptions: No Action metronidazole [Flagyl] 500 mg tablet 500 mg PO Q12H Qty: 14 0RF ciprofloxacin HCl 250 mg tablet 250 mg PO Q12H Qty: 14 0RF ondansetron HCl [Zofran] 4 mg tablet 4 mg PO Q8H PRN (Reason: nausea and vomiting) Qty: 10 0RF ondansetron 4 mg tablet,disintegrating 4 mg PO ONCE PRN (Reason: nausea and vomiting) Qty: 10 0RF amoxicillin 500 mg capsule 1,000 mg PO BID 5 Days Qty: 20 0RF azithromycin [Zithromax Z-Tye] 250 mg tablet See Rx Instructions .ROUTE .COMPLEX Qty: 6 0RF Rx Instructions: take 500 mg today (day 1), then 250 mg for 4 days (days 2-5) morphine 15 mg tablet 15 mg PO Q4-6H PRN (Reason: pain) Qty: 14 0RF Rx Instructions: Patient may request partial fill; Partial Fill upon patient request. hydrocortisone [Procto-Med HC] 2.5 % cream with perineal applicator 1 appl IN DAILY Qty: 30 0RF ibuprofen 600 mg tablet 600 mg PO Q8H PRN (Reason: pain) Qty: 15 0RF hydromorphone [Dilaudid] 2 mg tablet 2 mg PO Q8H PRN (Reason: pain) Qty: 10 0RF benzonatate 100 mg capsule 100 mg PO TID PRN (Reason: cough) Qty: 14 0RF dabigatran etexilate 75 mg capsule 75 mg PO BID Referrals: Tim Delgado [Physician] - (Stool mixed with blood, stable Hgb, CT scan shows enhancement at the recto-sigmoid.)
[2023-02-21 13:56] VITALS: BP 127/72; PULSE 83; RESP 20; TEMP 36.8; O2SAT 97; BMI 28.8
[2023-02-21 14:12] LABS: MANUAL DIFF FLAG NO
[2023-02-21 14:14] LABS: Basophils Percent Auto 0.4 % (0-2); Eosinophils Percent Auto 0.4 % (0-4); Hematocrit 40.8 % (42.0-52.0); Hemoglobin 13.1 g/dl (14.0-18.0); Imm Gran Abs Auto 0.01 X10*3/uL (0.00-0.03); Imm Gran Pct Auto 0.2 % (0.0-0.4); Lymphocytes Absolute Auto 2.4 X10*3/uL (1.2-4.9); Lymphocytes Percent Auto 46.6 % (20-40); Mean Corpuscular HGB Conc 32.1 g/dl (31.0-36.0); Mean Corpuscular Hemoglobin 28.3 pg (27.0-33.0); Mean Corpuscular Volume 88.1 fL (80.0-98.0); Mean Platelet Volume 9.6 fL (9.4-12.4); Monocytes Absolute Auto 0.5 X10*3/uL (0.1-1.2); Monocytes Percent Auto 10.3 % (2-11); Neutrophils Absolute Auto 2.2 x10*3/uL (2.0-8.3); Neutrophils Percent Auto 42.1 % (45-73); Platelet Count 170 X10*3/uL (160-400); Red Blood Count 4.63 X10*6/uL (4.60-5.80); Red Cell Distribution Width 15.2 % (11.0-16.0); White Blood Count 5.2 X10*3/uL (4.8-10.8)
[2023-02-21 14:42] LABS: Alanine Aminotransferase 38 U/L (0-40); Albumin Level 4.1 g/dL (3.5-5.0); Alkaline Phosphatase 144 U/L (39-117); Anion Gap 12 (12-20); Aspartate Amino Transferase 44 U/L (5-37); Bilirubin Direct 0.1 mg/dL (0.0-0.5); Bilirubin Total 0.4 mg/dL (0.0-1.0); Blood Urea Nitrogen 12 mg/dL (9-16); Calcium 9.7 mg/dL (8.4-10.2); Carbon Dioxide 23 mmol/L (22-29); Chloride 107 mmol/L (96-108); Estimated Glomerular Filt Rate > 60; Glucose Random 187 mg/dL (60-115); Lipase 13 U/L (8-78); Magnesium 2.1 mg/dL (1.6-2.6); Potassium 4.1 mmol/L (3.3-5.1); Sodium 138 mmol/L (135-145); Total Protein 8.7 g/dL (6.5-8.0)
[2023-02-21 14:43] LABS: Prothrombin Time 11.6 SEC (10.0-13.1)
--- OUTSIDE RECORDS SUMMARY | 2023-02-21 14:46 | XMS_ITS | Continuity of Care Document ---
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 Date(s): 10/05/20 - 10/09/[address] [id number] Discharge Disposition: A-D/C Home Attending Physician: Chel MG, Kannan Moss Admitting Physician: Tristan Vitale MD Referring Physician: Not on Staff, Referring MD Allergies, Adverse Reactions, Alerts Substance Reaction Severity Status Lamictal Hives, itch Active Tegretol Hallucinations, aggression A ctive Tylenol itching Active Lobster Persistent Severe Active Percocet 7.5/325 1 C/O: itching Active influenza virus vaccine, inactivated 2 Active traMADol Active oxyCODONE Persistent Mild Active 1makes pt itchy 2Hx of Guillain - Arab Immunizations Given and Recorded Vaccine Date Status Refusal Reason pneumococcal 23-valent vaccine 02/03/17 Given Not Given Vaccine Date Status Refusal Reason pneumococcal 23-valent vaccine 01/25/17 Not Given Patient Refuses Medications apixaban 2.5 mg oral tablet See Instructions, 2 tablet By Mouth 2 times a day x 6 days then, 1 tablet PO BID, # 72 tablet, 0 Refills, Maintenance, 10/09/20 11:36:00 EST, Tablet, [facility]/pharmacy #[id number], Partial fill upon patient request if the prescription is for a schedule II opioi... Start Date: 10/09/20 Status: Ordered aspirin 81 mg oral delayed release tablet See Instructions, ALY GOINSA TODOS [place], # 30 tablet, 1 Refills, Maintenance, [id number], 175, cm, 02/26/20 14:11:00 EDT, Height, 87.5, kg, 02/26/20 14:11:00 EDT, Dry Weight Start Date: 04/12/20 Status: Ordered atorvastatin 80 mg oral tablet 1 tablet = 80 mg, By Mouth, Daily, # 30 tablet, 0 Refills, Maintenance, Tablet, Route to Pharmacy Electronically, [id number], [facility] Start Date: 04/02/18 Stop Date: 05/02/18 Status: Ordered Compression Stockings surgical, knee high length 20-30 mm Hg, # 2 each, Maintenance, 04/06/20 13:52:00 EDT, Supply Start Date: 04/06/20 Status: Ordered Compression Stockings surgical, thigh high length 20-30 mm Hg, # 1 each, Refills 2, Tot. Refills 2, Maintenance, wear daily remove bedtime, 04/06/20 13:52:00 EDT, Supply Start Date: 04/06/20 Status: Ordered Dilaudid 2 mg oral tablet 1 tablet = 2 mg, By Mouth, Every 6 hours, PRN Pain , Severe, for 3 days, # 10 tablet, 0 Refills, Acute 10/12/20 11:37:00 EST, 10/09/20 11:37:00 EST, Tablet, [facility]/pharmacy #[id number], Partial fill upon patient request if the prescription is for a schedule II... Start Date: 10/09/20 Stop Date: 10/12/20 Status: Ordered Dilaudid Inj 1 mg, Injection, IV Push Slowly, Every 4 hours, PRN for Pain , Severe, Routine, 10/05/20 20:58:00 EST Start Date: 10/05/20 Stop Date: 10/09/20 Status: Discontinued famotidine 20 mg oral tablet TOME DOS TABLETAS POR VIA ORAL TODOS [place] Start Date: 06/16/20 Status: Ordered glyBURIDE 2.5 mg oral tablet 2.5 mg, 1, tablet, By Mouth, Daily, # 30 tablet, Refills 0, Maintenance, 12/23/18 19:28:34 EDT Start Date: 12/23/18 Status: Ordered Isentress HD 600 mg oral tablet 2 tablet = 1,200 mg, By Mouth, Daily, 0 Refills, Maintenance, 07/30/17 8:20:04 Start Date: 07/30/17 Status: Ordered ondansetron 4 mg oral tablet, disintegrating 1 tablet = 4 mg, By Mouth, Every 8 hours, PRN Nausea & Vomiting, # 10 tablet, 0 Refills, Maintenance, 06/21/20 19:42:00 EDT, Tablet, [id number], 175, cm, 06/17/20 8:54:00 EDT, Height, 91,kg, 06/16/20 10:18:00 EDT, Dry Weight Start Date: 06/21/20 Status: Ordered pantoprazole 40 mg oral delayed release tablet 1 tablet = 40 mg, By Mouth, Daily, # 30 tablet, 2 Refills, Maintenance, 04/07/20 14:06:00 EDT, EC Tablet, 175, cm, 02/26/20 14:11:00 EDT, Height, 87.5, kg, 02/26/20 14:11:00 EDT, Dry Weight Start Date: 04/07/20 Status: Ordered Prezcobix 800 mg-150 mg oral tablet 1 tablet, By Mouth, Daily, with food, # 30 tablet, 0 Refills, Maintenance, 07/05/17 11:35:26, Tablet Start Date: 07/05/17 Status: Ordered ProAir HFA 90 mcg/inh inhalation aerosol INHALE DANDO DOS SOPLIDOS CADA CUATRO HORAS CUANDO SEA NECESARIO Start Date: 06/16/20 Status: Ordered simethicone 125 mg oral capsule TAKE 1 CAP BY MOUTH EVERY 6 (SIX) HOURS NEEDED FOR CRAMPING OR FLATULENCE Start Date: 06/16/20 Status: Ordered tenofovir disoproxil fumarate 300 mg oral tablet TOME EMILY TABLETA TODOS LOS D Start Date: 06/16/20 Status: Ordered traZODone 150 mg oral tablet 1 tablet = 150 mg, By Mouth, Daily at bedtime, 0 Refills, Maintenance, 03/12/18 11:23:20 EDT Start Date: 03/12/18 Status: Ordered Trulicity Pen 1.5 mg/0.5 mL subcutaneous solution INJECT 1 PEN POR V A INTRAMUSCULAR ONCE WEEKLY Start Date: 06/16/20 Status: Ordered Vimpat 100 mg oral tablet 1 tablet = 100 mg, By Mouth, 2 times a day, at night, # 180 tablet, 0 Refills, Maintenance, 10/29/18 6:55:39 EST, Tablet Start Date: 10/29/18 Status: Ordered Problem List Condition Effective Dates Status Health Status Inform ant GERD (gastroesophageal reflu x disease)(Confirmed) Active Guillain-Arab syndrome(Confirmed) 1 Active Hematoma of leg(Confirmed) Active HIV disease(Confirmed) 2002 Active Hypercholesterolemia(Confirmed) 2005 Active HLD (hyperlipidemia)(Confirmed) Active HTN (hypertension)(Confirmed) Active Hypothyroidism(Confirmed) Active Skin infection(Confirmed) Active PVD (peripheral vascular disease)(Confirmed) Active 1sequelae, left sided weakness Vital Signs Most recent to oldest [Reference Range]: 1 2 3 Height 172 cm (10/09/20 8:17 AM) 172 cm (10/08/20 7:54 PM) 172 cm (10/08/20 6:56 AM) Weight 82.5 kg (10/07/20 3:16 PM) 82.5 kg (10/06/20 5:07 PM) 89.3 kg (10/06/20 4:28 PM) Oxygen Saturation [94-100 %] 100 % (10/09/20 8:17 AM) 99 % (10/08/20 7:54 PM) 98 % (10/08/20 6:56 AM) Pulse Rate [55-90 bpm] 84 bpm (10/09/20 8:17 AM) 76 bpm (10/08/20 7:54 PM) 96 bpm *H* (10/08/20 6:56 AM) Body Mass Index [18.5-24.99] 27.89 *H* (10/07/20 3:16 PM) 27.89 *H* (10/06/20 5:07 PM) Blood Pressure [90-138/55-84 mm Hg] 105/84mm Hg (10/09/20 8:17 AM) 105/60mm Hg (10/08/20 7:54 PM) 110/72mm Hg (10/08/20 6:56 AM) Respiratory Rate [16-30 br/min] 18 br/min (10/09/20 12:31 PM) 18 br/min (10/09/20 12:01 PM) 18 br/min (10/09/20 8:17 AM) Temperature [96.8-100.4 DegF] 98.1 DegF (10/09/20 8:17 AM) 98.2 DegF (10/08/20 7:54 PM) 97.6 DegF (10/08/20 6:56 AM) Liters per Minute 2 L/min (10/08/20 12:08 AM) 2 L/min (10/07/20 7:30 PM) 3 L/min (10/07/20 6:45 PM) Mode of Delivery (Oxygen) Room air (10/09/20 8:17 AM) Room air (10/08/20 7:54 PM) Room air (10/08/20 6:56 AM) Blood pressure sites Arm, right (10/09/20 8:17 AM) Arm, right (10/08/20 7:54 PM) Arm, right (10/08/20 6:56 AM) Temperature Route Oral (10/09/20 8:17 AM) Oral (10/08/20 7:54 PM) Oral (10/08/20 6:56 AM) Dry Weight 82.5 kg (10/06/20 5:07 PM) Weight Obtained Via Standing scale (10/06/20 4:28 PM) Social History Social History Type Response Smoking Status Former smoker; Tobac co user in household: No; Type: Cigarettes; Other: quit in july 2016; Tobacco use times per day: half pack per day; Started at age: 11; entered on: 05/29/18 Sex
--- OUTSIDE RECORDS SUMMARY | 2023-02-21 14:46 | XMS_ITS | Continuity of Care Document ---
Author Name Unknown Organization [facility] Address [address] [place] [id number]- Care Team Providers Care Residence Director Name Role Phone Thomas Bright Primary Care Physician Encounter [facility] [place] Date(s): 08/02/22 - 08/02/[address] [address]- Discharge Disposition: A-D/C Home Attending Physician: Claire Benitez MD Admitting Physician: Claire Benitez MD Referring Physician: Not on Staff, Referring MD Allergies, Adverse Reactions, Alerts Substance Reaction Severity Status Lamictal Hives, itch Active Tegretol Hallucinations, aggression A ctive Tylenol itching Active Lobster Persistent Severe Active Percocet 7.5/325 1 C/O: itching Active influenza virus vaccine, inactivated 2 Active traMADol Active oxyCODONE Persistent Mild Active 1makes pt itchy 2Hx of Guillain - [place] Immunizations Given and Recorded Vaccine Date Status Refusal Reason pneumococcal 23-valent vaccine 02/03/17 Given Not Given Vaccine Date Status Refusal Reason pneumococcal 23-valent vaccine 01/25/17 Not Given Patient Refuses Medications atorvastatin 80 mg oral tablet 1 tablet = 80 mg, By Mouth, Daily at bedtime, # 30 tablet, 0 Refills, Maintenance, Tablet, Route toPharmacy Electronically, [id number], [facility] Start Date: 04/02/18 Stop Date: 05/02/18 Status: Ordered dicyclomine 20 mg oral tablet 1 tablet = 20 mg, By Mouth, 4 times a day, # 40 tablet, 0 Refills, Maintenance, 09/30/21 21:11:00 EST, Tablet, Partial fill upon patient request if the prescription is for a schedule II opioid drug. Start Date: 09/30/21 Stop Date: 10/10/21 Status: Ordered famotidine 20 mg oral tablet TOME DOS TABLETAS POR VIA ORAL TODOS [place] Start Date: 06/16/20 Status: Ordered Isentress 400 mg oral tablet 1 tablet = 400 mg, By Mouth, 2 times a day, Stop Isentress 600mg and take Isentress 400mg twice a day., # 60 tablet, 1 Refills, Maintenance, 05/20/22 14:26:00 EDT, Tablet, [facility][id number], Partialfill upon patient request if the prescription is fo... Start Date: 05/20/22 Status: Ordered levothyroxine 25 mcg (0.025 mg) oral capsule 1 capsule = 25 mcg, By Mouth, Daily, # 30 capsule, 0 Refills, Maintenance, 10/12/20 23:33:00 EST, Capsule, Partial fill upon patient request if the prescription is for a schedule II opioid drug. Start Date: 10/12/20 Status: Ordered Lovenox 150 mg/mL injectable solution = 130 mg, Subcutaneous Injection, Daily, Take lovenox 130mg subcutaneous daily, a,long with coumadin. Check blood work for INR on 06/04/2022 and 06/07/22 . You can stop lovenox once INR is 2.0, # 7 each, 0 Refills, Maintenance, 06/02/22 9:49:00 EDT, So... Start Date: 06/02/22 Status: Ordered Lovenox 150 mg/mL injectable solution = 130 mg, Subcutaneous Injection, Daily, for 7 days, *Note: Treatment = 1.5mg/kg/day, renal dosing = 1mg/kg/day*, # 7 each, 0 Refills, Acute 08/09/22 19:30:00 EST, 08/02/22 19:30:00 EST, [facility]/pharm[facility]#[id number], Partial fill upon patient request if the pre... Start Date: 08/02/22 Stop Date: 08/09/22 Status: Ordered MorPHINE Inj 4 mg, Injection, IV Push Slowly, Every 5 minutes for 3 doses/times, PRN for Pain , Moderate, and SBP greater than 100, Routine, 08/02/22 15:47:00 EST, Stop date Limited # of times Start Date: 08/02/22 Stop Date: 08/03/22 Status: Discontinued pantoprazole 40 mg oral delayed release tablet 1 tablet = 40 mg, By Mouth, Daily, take at a different time than famotidine, # 30 tablet, 0 Refills, Maintenance, 02/12/21 19:06:00 EDT, EC Tablet, 175, cm, 01/03/21 16:35:00 EDT, Height, 83, kg, 01/03/21 16:35:00 EDT, Dry Weight Start Date: 02/12/21 Status: Ordered Prezcobix 800 mg-150 mg oral tablet 1 tablet, By Mouth, Daily, with food, # 30 tablet, 0 Refills, Maintenance, 07/05/17 11:35:26, Tablet Start Date: 07/05/17 Status: Ordered ProAir HFA 90 mcg/inh inhalation aerosol INHALE DANDO DOS SOPLIDOS CADA CUATRO HORAS CUANDO SEA NECESARIO Start Date: 06/16/20 Status: Ordered traZODone 150 [...] EST, Tablet Start Date: 10/29/18 Status: Ordered warfarin 10 mg oral tablet 1 tablet = 10 mg, By Mouth, Daily, Take 10mg warfarin daily, get blood work for INR by [facility] on 05/23/2022 and follow up with Primary care doctor for dose adjustments' Stop previous warfarin 7.5mg daily, # 30 tablet, 1 Refills, Maintenance, 05/20/22 14:... Start Date: 05/20/22 Status: Ordered warfarin 7.5 mg oral tablet 0 Refills, Maintenance, 06/23/22 14:11:00 EDT, Partial fill upon patient request if the prescription is for a schedule II opioid drug. 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 Hematoma of leg Confirmed Active HIV disease Confirmed 2002 Active HLD (hyperlipidemia) Confirmed Active HTN (hypertension) Confirmed Active Hypothyroidism Confirmed Active Skin infection Confirmed Active PVD (peripheral vascular disease) Confirmed Active 1sequelae, left sided weakness Results Radiology Reports * Exam Date Time Procedure Performing Provider Status 08/02/22 4:[address] Angio Abdomen and Pelvis Elaine Snyder i; Auth (Verified) Notes: (CT Angio Abdomen and Pelvis) Reason For Exam: Aneurysm RESULT: CT Angio Abdomen and Pelvis PROCEDURE: CT Angio Chest, CT Angio Abdomen and Pelvis CLINICAL INDICATION: Hx of Present Illness: Syncope LLE Pain; Reason: Other:; Aortic disease, nontraumatic; Clinical Question(s): Other:; Aortic Dissection, Other: TECHNIQUE: Examination initially performed through the thoracic aorta without contrast. During uneventful administration intravenous contrast, thin section axial images were obtained of the chest, abdomen, and pelvis in arterial phase. Multiplanar reformats were computed. 100 cc of Omnipaque 300 was administered intravenously. 3D and MIP reconstructions were performed. Weight-based protocol using automatic tube modulation was used to optimize exposure parameters. RADIATION DOSE PARAMETERS: CTDIvol Body: 10.28 mGy, DLP Body: 801 mGy*cm. COMPARISON: 07/12/2022 FINDINGS: CTA: Pulmonary arteries: No pulmonary embolism down to the segmental level. . Thoracic aorta: There is no thoracic aortic aneurysm or dissection. . Abdominal aorta: There is no abdominal aortic aneurysm. There is a aortobiiliac stent. The upper most cuts extend just above the level of the superior mesenteric artery. Both limbs are patent and terminate just above the bifurcation of the common iliac arteries.. Celiac axis: Normal. Superior mesenteric artery: 1 the struts of the upper part of the aortic stent minimally narrows the origin of the superior mesenteric artery.. Inferior mesenteric artery: The origin is difficult to assess and is probably occluded. The remainder of the RAMANA is patent.. Renal arteries: Single right renal artery is normal. Single left renal artery is probably narrowed at its origin by the stent graft. Iliac arteries: Common iliac arteries contain patent stent graft limbs. External an internal iliac arteries are patent and of normal diameter.. OTHER FINDINGS: TRACHEA AND MAINSTEM BRONCHI: Patent without evidence of tracheal or endobronchial lesion. LUNGS AND PLEURA: Calcified granulomas. The lungs are otherwise clear. No pleural effusion or pneumothorax. MEDIASTINUM AND [place]: The heart is of normal size. No pericardial effusion.. There is no mediastinal or hilar adenopathy.. There is no esophageal abnormality. BONES OF THE CHEST: There is no thoracic spine compression fracture. No fracture ribs or sternum.. DIAPHRAGM: Unremarkable. LIVER: No significant focal abnormality. GALLBLADDER: Surgically absent.. BILE DUCTS: No biliary dilatation. SPLEEN: Calcified granulomas. Otherwise normal.. PANCREAS: Atrophy. No other abnormality.. ADRENAL GLANDS: Normal. KIDNEYS AND URETERS: Right Kidney: Normal. Left Kidney: Normal. BLADDER: Normal. STOMACH, SMALL BOWEL AND LARGE BOWEL: Stomach: Normal. Small Bowel: No small bowel dilatation or gross inflammatory change Large Bowel: No large bowel dilatation or gross inflammatory change. There is a rectosigmoid anastomosis without complication.. APPENDIX: Not identified and probably surgically absent. REPRODUCTIVE/PELVIC ORGANS: PERITONEUM, RETROPERITONEUM, OMENTUM AND MESENTERY: There is no free air. . There is no ascites. LYMPH NODES: No enlarged lymph nodes ABDOMINAL WALL: Small fat-containing abdominal wall hernia just above the umbilicus. BONES OF THE ABDOMEN AND PELVIS: There is no compression fracture. There is no spondylolysis or spondylolisthesis. No fracture bony pelvis or proximal femurs. IMPRESSION: CTA 1. No pulmonary embolism. 2. Or thoracic aortic aneurysm or dissection. 3.. Patent aorta-biiliac stent graft with no significant aneurysm sac. CHEST 1. No acute abnormality lungs, pleura, or mediastinum.. 2. No fracture. ABDOMEN AND PELVIS 1. No acute soft tissue abnormality.. 2. No bony abnormality. WSN: [id number] Ordering Physician: Jeanette Vazquez Dictated By: Anjum Lopez MD Dictated Date/Time: 08/02/22 4:41 pm Reviewed By: Anjum Lopez MD Signed By: Anjum Lopez MD Signed Date/Time: 08/02/22 4:41 pm Transcribed By: LOGAN Transcribed Date/Time: 08/02/22 4:19 pm * Exam Date Time Procedure Performing Provider Status 08/02/22 4:[address] Angio Chest Elaine Chávez; Auth (Verified) Notes: (CT Angio Chest) Reason For Exam: Aortic disease, nontraumatic;Other: RESULT: CT Angio Chest PROCEDURE: CT Angio Chest, CT Angio Abdomen and Pelvis CLINICAL INDICATION: Hx of Present Illness: Syncope LLE Pain; Reason: Other:; Aortic disease, nontraumatic; Clinical Question(s): Other:; Aortic Dissection, Other: TECHNIQUE: Examination initially performed through the thoracic aorta without contrast. During uneventful administration intravenous contrast, thin section axial images were obtained of the chest, abdomen, and pelvis in arterial phase. Multiplanar reformats were computed. 100 cc of Omnipaque 300 was administered intravenously. 3D and MIP reconstructions were performed. Weight-based protocol using automatic tube modulation was used to optimize exposure parameters. RADIATION DOSE PARAMETERS: CTDIvol Body: 10.28 mGy, DLP Body: 801 mGy*cm. COMPARISON: 07/12/2022 FINDINGS: CTA: Pulmonary arteries: No pulmonary embolism down to the segmental level. . Thoracic aorta: There is no thoracic aortic aneurysm or dissection. . Abdominal aorta: There is no abdominal aortic aneurysm. There is a aortobiiliac stent. The upper most cuts extend just above the level of the superior mesenteric artery. Both limbs are patent and terminate just above the bifurcation of the common iliac arteries.. Celiac axis: Normal. Superior mesenteric artery: 1 the struts of the upper part of the aortic stent minimally narrows the origin of the superior mesenteric artery.. Inferior mesenteric artery: The origin is difficult to assess and is probably occluded. The remainder of the RAMANA is patent.. Renal arteries: Single right renal artery is normal. Single left renal artery is probably narrowed at its origin by the stent graft. Iliac arteries: Common iliac arteries contain patent stent graft limbs. External an internal iliac arteries are patent and of normal diameter.. OTHER FINDINGS: TRACHEA AND MAINSTEM BRONCHI: Patent without evidence of tracheal or endobronchial lesion. LUNGS AND PLEURA: Calcified granulomas. The lungs are otherwise clear. No pleural effusion or pneumothorax. MEDIASTINUM AND [place]: The heart is of normal size. No pericardial effusion.. There is no mediastinal or hilar adenopathy.. There is no esophageal abnormality. BONES OF THE CHEST: There is no thoracic spine compression fracture. No fracture ribs or sternum.. DIAPHRAGM: Unremarkable. LIVER: No significant focal abnormality. GALLBLADDER: Surgically absent.. BILE DUCTS: No biliary dilatation. SPLEEN: Calcified granulomas. Otherwise normal.. PANCREAS: Atrophy. No other abnormality.. ADRENAL GLANDS: Normal. KIDNEYS AND URETERS: Right Kidney: Normal. Left Kidney: Normal. BLADDER: Normal. STOMACH, SMALL BOWEL AND LARGE BOWEL: Stomach: Normal. Small Bowel: No small bowel dilatation or gross inflammatory change Large Bowel: No large bowel dilatation or gross inflammatory change. There is a rectosigmoid anastomosis without complication.. APPENDIX: Not identified and probably surgically absent. REPRODUCTIVE/PELVIC ORGANS: PERITONEUM, RETROPERITONEUM, OMENTUM AND MESENTERY: There is no free air. . There is no ascites. LYMPH NODES: No enlarged lymph nodes ABDOMINAL WALL: Small fat-containing abdominal wall hernia just above the umbilicus. BONES OF THE ABDOMEN AND PELVIS: There is no compression fracture. There is no spondylolysis or spondylolisthesis. No fracture bony pelvis or proximal femurs. IMPRESSION: CTA 1. No pulmonary embolism. 2. Or thoracic aortic aneurysm or dissection. 3.. Patent aorta-biiliac stent graft with no significant aneurysm sac. CHEST 1. No acute abnormality lungs, pleura, or mediastinum.. 2. No fracture. ABDOMEN AND PELVIS 1. No acute soft tissue abnormality.. 2. No bony abnormality. WSN: [id number] Ordering Physician: Jeanette Vazquez Dictated By: Anjum Lopez MD Dictated Date/Time: 08/02/22 4:41 pm Reviewed By: Anjum Lopez MD Signed By: Anjum Lopez MD Signed Date/Time: 08/02/22 4:41 pm Transcribed By: LOGAN Transcribed Date/Time: 08/02/22 4:19 pm * Exam Date Time Procedure Performing Provider Status 08/02/22 4:[address] Head/Brain W/O Contrast Elaine Chávez; Emeli (Verified) Notes: (CT Head/Brain W/O Contrast) Reason For Exam: Headache(s) RESULT: CT Head/Brain W/O Contrast CT Head/Brain W/O Contrast CLINICAL INDICATION: Hx of Present Illness: Syncope LLE Pain;. HIV. Diabetes. Numbness right arm. PRIOR EXAMS: 05/31/2022. TECHNIQUE: Head CT was performed without intravenous contrast, using axial technique and reconstructed in axial and coronal plane. Iterative reconstruction techniques are used to optimize dose and image quality. CTDIvol Head: 40.04 mGy, DLP Head: 641 mGy*cm. FINDINGS: BRAIN: There is no infarct. There is no intracerebral hemorrhage. There is no mass. VENTRICLES, SULCI, AND CISTERNS: The ventricles and sulci are symmetrical and normal. WHITE MATTER: No white matter abnormality. EXTRA AXIAL SPACES: There is no abnormal epidural, subdural, or subarachnoid blood or fluid. SKULL: There is no skull fracture.. PARANASAL SINUSES: Mild mucosal thickening maxillary sinuses bilaterally. Moderate mucosal thickening right sinus. Mild mucosal thickening right sphenoid sinus.. TEMPORAL BONES: The mastoid air cells are clear, as are the middle ear cavities. IMPRESSION: 1. No acute intracranial abnormality. 2. No skull fracture. WSN: [id number] Ordering Physician: Jeanette Vazquez Dictated By: Anjum Lopez MD Dictated Date/Time: 08/02/22 4:19 pm Reviewed By: Anjum Lopez MD Signed By: Anjum Lopez MD Signed Date/Time: 08/02/22 4:19 pm Transcribed By: LOGAN Transcribed Date/Time: 08/02/22 4:15 pm * Exam Date Time Procedure Performing Provider Status 08/02/22 2:37 PM US Doppler Ext Lower Venous Left Lilli Lopez; Emeli (Verified) Notes: (US Doppler Ext Lower Venous Left) Reason For Exam: Pain in limb;Other: RESULT: US Doppler Ext Lower Venous Left US Doppler Ext Lower Venous Left Hx of Present Illness: Syncope LLE Pain; Reason: Pain in limb; Clinical Question(s): Thrombus patient currently on warfarin. COMPARISON: Multiple priors, the most recent dated 05/18/2022 IMAGING TECHNIQUE: Ultrasound of the veins from the groin through the calf was performed using grayscale, color, and spectral Doppler ultrasound assessing for complete compressibility and normal flowcharacteristics. FINDINGS: Common femoral vein: Patent. No thrombosis. Femoral vein: Chronic linear eccentric nonocclusive 1.9 cm echogenic focus consistent with chronic postthrombotic changes within the mid femoral vein. No clearly delineated on prior study. Popliteal vein: Chronic linear nonocclusive 5.5 cm echogenic focus consistent with chronic postthrombotic changes, probably unchanged after allowing for differences in technique. Gastrocnemius veins: The visualized portions are patent without evidence of thrombosis. Peroneal veins: Chronic linear nonocclusive 5.4 cm focus consistent with chronic post-thrombotic changes. Limited comparison to prior due to differences in technique. Posterior tibial veins: The visualized portions are patent without evidence of thrombosis. Contralateral common femoral vein: Patent. No thrombosis. OTHER FINDINGS: None. IMPRESSION: No definite acute deep venous thrombosis. Linear areas of nonocclusive, chronic appearing post-thrombotic changes within mid femoral vein, popliteal vein and peroneal vein, stable to slightly increased after allowing for differences in technique. I have personally reviewed the images and I agree with this report. WSN: [id number] Ordering Physician: Jeanette Vazquez Dictated By: Dmitry Dawn MD Dictated Date/Time: 08/02/22 3:23 pm Reviewed By: Ramsey Miller MD Signed By: Ramsey Miller MD Signed Date/Time: 08/02/22 3:28 pm Transcribed By: LOGAN Transcribed Date/Time: 08/02/22 3:06 pm Vital Signs Most recent to oldest [Reference Range]: 1 2 3 Oxygen Saturation [94-100 %] 98 % (08/02/22 8:02 PM) 97 % (08/02/22 12:26 PM) Pulse Rate [55-90 bpm] 86 bpm (08/02/22 8:02 PM) 83 bpm (08/02/22 12:26 PM) Blood Pressure [90-138/55-84 mm Hg] 132/68mm Hg (08/02/22 8:02 PM) 126/81mm Hg (08/02/22 12:26 PM) Respiratory Rate [16-30 br/min] 18 br/min (08/02/22 8:02 PM) 16 br/min (08/02/22 6:33 PM) 18 br/min (08/02/22 4:28 PM) Temperature [96.8-100.4 DegF] 98.1 DegF (08/02/22 12:26 PM) Mode of Delivery (Oxygen) Room air (08/02/22 8:02 PM) Room air (08/02/22 12:26 PM) Temperature Route Oral (08/02/22 12:26 PM) Social History Social History Type Response Smoking Status Never (less than 100 in lifetime) entered on: 10/25/21 Sex Note * Adria PEREZ, Markell Shi: PERFORM Event Display: Patient Education Leaflets Authored Date: [id number] Chest Pain, Uncertain Cause ?? [id number] Causas inciertas de dolor de pecho El dolor de pecho puede producirse por numerosas razones. En algunos casos, no se puede determinar la causa. Si cedillo afecci??n no parece grave y el dolor no parece venir del coraz??n, cedillo proveedor de atenci??n m??dica puede recomendar un seguimiento de cerca. A veces, los signos de un problema grave tardan m??s en aparecer. Muchas afecciones no relacionadas con el coraz??n pueden causar dolor de pecho. Por ejemplo: ??? Musculoesquel??shawn. Costocondritis, shawn inflamaci??n de los tejidos alrededor de las costillas que puede ocurrir por trauma o lesiones por uso excesivo, o shawn distensi??n de los m??sculos de lapared tor??cica. ??? Respiratorias. Neumon??a, pulm??n colapsado (neumot??rax) o inflamaci??n del re vestimiento del pecho y los pulmones (pleuritis). ??? Gastrointestinales. Reflujo esof??gico, acidez estomacal, ??lceras o enfermedad de la ves??cula biliar. ??? Ansiedad y ataques de p??imer ??? Compresi??n e inflamaci??n de un nervio ??? Afecciones poco frecuentes pau aneurisma a??rtico o disecci??n a??rtica (shawn hinchaz??n de la arteria chris que sale del coraz??n o un desgarro en la pared de la arteria) o embolia pulmonar (co??gulos de jarred en los pulmones). Cuidados en el hogar Luego de cedillo visita, preste atenci??n a las siguientes recomendaciones: ??? Descanse hoy y evite toda actividad agotadora. ??? Kep'El el medicamento recetado seg??n le hayan indicado. ??? Est?? atento acualquier dolor de pecho recurrente y observe cualquier cambio ?? Visita de seguimiento Programe shawn visita de control con cedillo proveedor de atenci??n m??dica si no empieza a sentirse mejoren las siguientes 24??horas, o seg??n lo que le indiquen. ?? Cu??ndo llamar al?? 911 Llame al?? 911 si ocurre algo de lo siguiente: ??? Cambio en el tipo de dolor: se siente diferente,se piña vuelto m??s grave, dura m??s o comienza a esparcirse hacia el hombro, el brazo, el kathy, lamand??bula o la espalda ??? Falta de aire o dolor creciente al respirar ??? Debilidad, mareos o desmayos ??? Ritmo card??aco acelerado ??? Sensaci??n de aplastamiento en el pecho ??? Tos con cantidadabundante de jarred ?? Cu??ndo buscar atenci??n m??dica Llame a cedillo proveedor de atenci??n m??dica de inmediato ante cualquiera de los siguientes signos o s??ntomas: ??? Tos con expulsi??n de esputo (flema) de color oscuro o con un poco de jarred ??? Fiebre de 100.4?F (38?C) o superior, o seg??n le haya indicado cedillo proveedor de atenci??n m??dica ??? Dolor, enrojecimiento o hinchaz??n de shawn pierna ?? Last Reviewed Date: 2021 ?? [id number] [employer]. Todos los derechos reservados. Esta informaci??n no pretende sustituir la atenci??n m??dica profesional. S??lo cedillo m??dico puede diagnosticar y tratar un problema de rock. ?? * Adria PEREZ, Markell Shi: PERFORM Event Display: Patient Education Leaflets Authored Date: [id number] Fainting, Uncertain Cause ?? [id number] Desmayo: causa no determinada Desmayarse (tener un s??ncope) es perder el conocimiento de manera temporal. Suele estar relacionado con la p??rdida del katerina postural. Tambi??n se lo denomina p??rdida del conocimiento. Sucede cuando se reduce la cantidad de jarred que llega al cerebro. Tambi??n existen otras causas que provocan los desmayos. Un danelle desmayo (danelle s??ncope) es muy parecido a un desmayo, mathieu la persona no pierdeel conocimiento por completo. En general, el desmayo no se debe necesariamente a causas graves o que ponen en riesgo cedillo chapincito, aunque s?? puede lesionarse. Los siguientes son factores desencadenantes de tipos de desmayo menos graves: ??? miedo repentino; ??? dolor; ??? n??useas; ??? estr??s emocional; ??? agotamiento f??sico. Ponerse de pie de repente despu??s de stef estado sentado o acostado mucho tiempo tambi??n puede hacer que la persona se desmaye. Las causas m??s graves de los desmayos son las siguientes: ??? latidos card??acos muy r??pidos o lentos (arritmia); ??? otros tipos de enfermedad card??carol, pau enfermedad de las v??lvulas card??acas o enfermedad de las arterias coronarias; ??? deshidrataci??n; ??? p??rdida de jarred; ??? convulsiones; ??? accidente cerebrovascular; ??? ruptura de vasos sangu??neos del cerebro. Gilbert demasiado medicamento para la presi??n arterial corey tambi??n puede provocar un descenso excesivo de la presi??n arterial y desmayos. Cedillo proveedor de atenci??n m??dica puede decirle por qu?? se desmaya al revisar cedillo historia cl??nicay preguntarle sobre clay desmayos. Si no se determina la causa de clay desmayos o si cedillo proveedor de atenci??n m??dica sospecha de shawn causa mucho m??s grave, le indicar?? que se realice m??s pruebas, las cuales pueden incluir las siguientes: ??? Ecocardiograma. Esta prueba darnell im??genes por ultrasonido de cedillo coraz??n para examinar la estructura y la funci??n del coraz??n. ??? Prueba de esfuerzo. Esta prueba revisar?? la presencia de anormalidades en el funcionamiento o el ritmo card??aco mediante actividad f??bethanie. ??? Prueba de la owens basculante. Esta prueba examina los cambios en la presi??n arterial o en la frecuencia card??carol al cambiar de posici??n acostada a de pie. ??? Monitoreo card??aco. Esta prueba examina los ritmos card??acos demasiado lentos o r??pidos que pueden ser la causa de los desmayos. ??? Pruebas de laboratorio. Estas pruebas controlan la presencia de anormalidades en electrolitos y en hemogramas, entre o tros. Cuidados en el hogar Siga estos consejos para cedillo cuidado en el hogar: ??? Hoy descanse. Podr?? reanudar clay actividades habituales cuando vuelva a sentirse genesis. Lo mejor es que se quede con alguien que pueda cuidarlo marie las pr??ximas 24 horas para que est?? presente si usted tiene otro desmayo. ??? Si se siente aturdido o mareado, recu??stese de inmediato e intente elevar clay pies por encima del nivel de cedillo valarie. O genesis, si??ntese con la valarie entre las rodillas. ??? Dado que no se sabe la causa exacta de cedillo desmayo o danelle desmayo, es posible que tenga otro episodio similar sin ninguna se??al de advertencia previa. Por ello, no conduzca un autom??israel ni opere equipos peligrosos hasta que cedillo proveedor de atenci??n m??dica se lo permita. No se ba??e si est?? solo. Use la ducha en lugar de la dalila. No vaya a nadar sin kosta?a hasta que cedillo proveedor de atenci??n m??dica le diga que ya no corre el riesgo de tener otro episodio de desmayo. ?? Seguimiento Asista a las citas de seguimiento con cedillo proveedor de atenci??n m??dica o seg??n le hayan aconsejado. Cu??ndo buscar atenci??n m??dica Llame a cedillo proveedor de atenci??n m??dica??de inmediato ante cualquiera de las siguientes situaciones: ??? otro episodio de desmayo que no se debe a las causas comunes detalladas m??s arriba; ??? dolor en el pecho, el brazo, el kathy, la michael??bula, la espalda o el abdomen; ??? falta de aire; ??? dolor de valarie juana o convulsiones; ??? jarred en el v??rochelle o en las heces (de color negruzco o rojizo); ??? sangrado vaginal inesperado; ??? palpitaciones (el coraz??n late muy r??pido, muy lento o de manera irregular). Tambi??n llame a cedillo proveedor si tiene s??ntomas de un ataque cerebral: ??? debilidad en un brazo ouna pierna, o en un lado de la ryan; ??? dificultad para hablar o naldo; ??? somnolencia excesiva, confusi??n, mareos o desmayos. ?? Last Reviewed Date: 2019 ?? [id number] [employer]. Todos los derechos reservados. Esta informaci??n no pretende sustituir la atenci??n m??dica profesional. S??lo cedillo m??dico puede diagnosticar y tratar un problema de rock. ?? * [facility] , CIS S: TRANSCRIBE Ramsey Miller MD: VERIFY Dmitry Dawn MD A: SIGN Event Display: Result: Authored Date: US Doppler Ext Lower Venous Left Hx of Present Illness: Syncope LLE Pain; Reason: Pain in limb; Clinical Question(s): Thrombus patient currently on warfarin. COMPARISON: Multiple priors, the most recent dated 05/18/2022 IMAGING TECHNIQUE: Ultrasound of the veins from the groin through the calf was performed using grayscale, color, and spectral Doppler ultrasound assessing for complete compressibility and normal flowcharacteristics. FINDINGS: Common femoral vein: Patent. No thrombosis. Femoral vein: Chronic linear eccentric nonocclusive 1.9 cm echogenic focus consistent with chronic postthrombotic changes within the mid femoral vein. No clearly delineated on prior study. Popliteal vein: Chronic linear nonocclusive 5.5 cm echogenic focus consistent with chronic postthrombotic changes, probably unchanged after allowing for differences in technique. Gastrocnemius veins: The visualized portions are patent without evidence of thrombosis. Peroneal veins: Chronic linear nonocclusive 5.4 cm focus consistent with chronic post-thrombotic changes. Limited comparison to prior due to differences in technique. Posterior tibial veins: The visualized portions are patent without evidence of thrombosis. Contralateral common femoral vein: Patent. No thrombosis. OTHER FINDINGS: None. IMPRESSION: No definite acute deep venous thrombosis. Linear areas of nonocclusive, chronic appearing post-thrombotic changes within mid femoral vein, popliteal vein and peroneal vein, stable to slightly increased after allowing for differences in technique. I have personally reviewed the images and I agree with this report. WSN: [id number] Ordering Physician: Jeanette Vazquez Dictated By: López MG, Dmitry Farah Dictated Date/Time: 08/02/22 3:23 pm Reviewed By: Ramsey Miller MD Signed By: Ramsey Miller MD Signed Date/Time: 08/02/22 3:28 pm Transcribed By: LOGAN Transcribed Date/Time: 08/02/22 3:[address] Head WO contrast * [facility] , CIS S: TRANSCRIBE Jessica MG, Anjum D: VERIFY Event Display: Result: Authored Date: [id number] CT Head/Brain W/O Contrast CLINICAL INDICATION: Hx of Present Illness: Syncope LLE Pain;. HIV. Diabetes. Numbness right arm. PRIOR EXAMS: 05/31/2022. TECHNIQUE: Head CT was performed without intravenous contrast, using axial technique and reconstructed in axial and coronal plane. Iterative reconstruction techniques are used to optimize dose and image quality. CTDIvol Head: 40.04 mGy, DLP Head: 641 mGy*cm. FINDINGS: BRAIN: There is no infarct. There is no intracerebral hemorrhage. There is no mass. VENTRICLES, SULCI, AND CISTERNS: The ventricles and sulci are symmetrical and normal. WHITE MATTER: No white matter abnormality. EXTRA AXIAL SPACES: There is no abnormal epidural, subdural, or subarachnoid blood or fluid. SKULL: There is no skull fracture.. PARANASAL SINUSES: Mild mucosal thickening maxillary sinuses bilaterally. Moderate mucosal thickening right sinus. Mild mucosal thickening right sphenoid sinus.. TEMPORAL BONES: The mastoid air cells are clear, as are the middle ear cavities. IMPRESSION: 1. No acute intracranial abnormality. 2. No skull fracture. WSN: [id number] Ordering Physician: Jeanette Vazquez Dictated By: Anjum Lopez MD Dictated Date/Time: 08/02/22 4:19 pm Reviewed By: Anjum Lopez MD Signed By: Anjum Lopez MD Signed Date/Time: 08/02/22 4:19 pm Transcribed By: LOGAN Transcribed Date/Time: 08/02/22 4:15 pm CTA Abdominal vessels and Pelvis vessels W contrast IV * [facility] , CIS S: TRANSCRIBE Anjum Lopez MD: VERIFY Event Display: Result: Authored Date: PROCEDURE: CT Angio Chest, CT Angio Abdomen and Pelvis CLINICAL INDICATION: Hx of Present Illness: Syncope LLE Pain; Reason: Other:; Aortic disease, nontraumatic; Clinical Question(s): Other:; Aortic Dissection, Other: TECHNIQUE: Examination initially performed through the thoracic aorta without contrast. During uneventful administration intravenous contrast, thin section axial images were obtained of the chest, abdomen, and pelvis in arterial phase. Multiplanar reformats were computed. 100 cc of Omnipaque 300 was administered intravenously. 3D and MIP reconstructions were performed. Weight-based protocol using automatic tube modulation was used to optimize exposure parameters. RADIATION DOSE PARAMETERS: CTDIvol Body: 10.28 mGy, DLP Body: 801 mGy*cm. COMPARISON: 07/12/2022 FINDINGS: CTA: Pulmonary arteries: No pulmonary embolism down to the segmental level. . Thoracic aorta: There is no thoracic aortic aneurysm or dissection. . Abdominal aorta: There is no abdominal aortic aneurysm. There is a aortobiiliac stent. The upper most cuts extend just above the level of the superior mesenteric artery. Both limbs are patent and terminate just above the bifurcation of the common iliac arteries.. Celiac axis: Normal. Superior mesenteric artery: 1 the struts of the upper part of the aortic stent minimally narrows the origin of the superior mesenteric artery.. Inferior mesenteric artery: The origin is difficult to assess and is probably occluded. The remainder of the RAMANA is patent.. Renal arteries: Single right renal artery is normal. Single left renal artery is probably narrowed at its origin by the stent graft. Iliac arteries: Common iliac arteries contain patent stent graft limbs. External an internal iliac arteries are patent and of normal diameter.. OTHER FINDINGS: TRACHEA AND MAINSTEM BRONCHI: Patent without evidence of tracheal or endobronchial lesion. LUNGS AND PLEURA: Calcified granulomas. The lungs are otherwise clear. No pleural effusion or pneumothorax. MEDIASTINUM AND [place]: The heart is of normal size. No pericardial effusion.. There is no mediastinal or hilar adenopathy.. There is no esophageal abnormality. BONES OF THE CHEST: There is no thoracic spine compression fracture. No fracture ribs or sternum.. DIAPHRAGM: Unremarkable. LIVER: No significant focal abnormality. GALLBLADDER: Surgically absent.. BILE DUCTS: No biliary dilatation. SPLEEN: Calcified granulomas. Otherwise normal.. PANCREAS: Atrophy. No other abnormality.. ADRENAL GLANDS: Normal. KIDNEYS AND URETERS: Right Kidney: Normal. Left Kidney: Normal. BLADDER: Normal. STOMACH, SMALL BOWEL AND LARGE BOWEL: Stomach: Normal. Small Bowel: No small bowel dilatation or gross inflammatory change Large Bowel: No large bowel dilatation or gross inflammatory change. There is a rectosigmoid anastomosis without complication.. APPENDIX: Not identified and probably surgically absent. REPRODUCTIVE/PELVIC ORGANS: PERITONEUM, RETROPERITONEUM, OMENTUM AND MESENTERY: There is no free air. . There is no ascites. LYMPH NODES: No enlarged lymph nodes ABDOMINAL WALL: Small fat-containing abdominal wall hernia just above the umbilicus. BONES OF THE ABDOMEN AND PELVIS: There is no compression fracture. There is no spondylolysis or spondylolisthesis. No fracture bony pelvis or proximal femurs. IMPRESSION: CTA 1. No pulmonary embolism. 2. Or thoracic aortic aneurysm or dissection. 3.. Patent aorta-biiliac stent graft with no significant aneurysm sac. CHEST 1. No acute abnormality lungs, pleura, or mediastinum.. 2. No fracture. ABDOMEN AND PELVIS 1. No acute soft tissue abnormality.. 2. No bony abnormality. WSN: [id number] Ordering Physician: Jeanette Vazquez Dictated By: Anjum Lopez MD Dictated Date/Time: 08/02/22 4:41 pm Reviewed By: Anjum Lopez MD Signed By: Anjum Lopez MD Signed Date/Time: 08/02/22 4:41 pm Transcribed By: LOGAN Transcribed Date/Time: 08/02/22 4:19 pm CTA Chest vessels W contrast IV * [facility] , CIS S: TRANSCRIBE Anjum Lopez MD: VERIFY Event Display: Result: Authored Date: [id number] PROCEDURE: CT Angio Chest, CT Angio Abdomen and Pelvis CLINICAL INDICATION: Hx of Present Illness: Syncope LLE Pain; Reason: Other:; Aortic disease, nontraumatic; Clinical Question(s): Other:; Aortic Dissection, Other: TECHNIQUE: Examination initially performed through the thoracic aorta without contrast. During uneventful administration intravenous contrast, thin section axial images were obtained of the chest, abdomen, and pelvis in arterial phase. Multiplanar reformats were computed. 100 cc of Omnipaque 300 was administered intravenously. 3D and MIP reconstructions were performed. Weight-based protocol using automatic tube modulation was used to optimize exposure parameters. RADIATION DOSE PARAMETERS: CTDIvol Body: 10.28 mGy, DLP Body: 801 mGy*cm. COMPARISON: 07/12/2022 FINDINGS: CTA: Pulmonary arteries: No pulmonary embolism down to the segmental level. . Thoracic aorta: There is no thoracic aortic aneurysm or dissection. . Abdominal aorta: There is no abdominal aortic aneurysm. There is a aortobiiliac stent. The upper most cuts extend just above the level of the superior mesenteric artery. Both limbs are patent and terminate just above the bifurcation of the common iliac arteries.. Celiac axis: Normal. Superior mesenteric artery: 1 the struts of the upper part of the aortic stent minimally narrows the origin of the superior mesenteric artery.. Inferior mesenteric artery: The origin is difficult to assess and is probably occluded. The remainder of the RAMANA is patent.. Renal arteries: Single right renal artery is normal. Single left renal artery is probably narrowed at its origin by the stent graft. Iliac arteries: Common iliac arteries contain patent stent graft limbs. External an internal iliac arteries are patent and of normal diameter.. OTHER FINDINGS: TRACHEA AND MAINSTEM BRONCHI: Patent without evidence of tracheal or endobronchial lesion. LUNGS AND PLEURA: Calcified granulomas. The lungs are otherwise clear. No pleural effusion or pneumothorax. MEDIASTINUM AND [place]: The heart is of normal size. No pericardial effusion.. There is no mediastinal or hilar adenopathy.. There is no esophageal abnormality. BONES OF THE CHEST: There is no thoracic spine compression fracture. No fracture ribs or sternum.. DIAPHRAGM: Unremarkable. LIVER: No significant focal abnormality. GALLBLADDER: Surgically absent.. BILE DUCTS: No biliary dilatation. SPLEEN: Calcified granulomas. Otherwise normal.. PANCREAS: Atrophy. No other abnormality.. ADRENAL GLANDS: Normal. KIDNEYS AND URETERS: Right Kidney: Normal. Left Kidney: Normal. BLADDER: Normal. STOMACH, SMALL BOWEL AND LARGE BOWEL: Stomach: Normal. Small Bowel: No small bowel dilatation or gross inflammatory change Large Bowel: No large bowel dilatation or gross inflammatory change. There is a rectosigmoid anastomosis without complication.. APPENDIX: Not identified and probably surgically absent. REPRODUCTIVE/PELVIC ORGANS: PERITONEUM, RETROPERITONEUM, OMENTUM AND MESENTERY: There is no free air. . There is no ascites. LYMPH NODES: No enlarged lymph nodes ABDOMINAL WALL: Small fat-containing abdominal wall hernia just above the umbilicus. BONES OF THE ABDOMEN AND PELVIS: There is no compression fracture. There is no spondylolysis or spondylolisthesis. No fracture bony pelvis or proximal femurs. IMPRESSION: CTA 1. No pulmonary embolism. 2. Or thoracic aortic aneurysm or dissection. 3.. Patent aorta-biiliac stent graft with no significant aneurysm sac. CHEST 1. No acute abnormality lungs, pleura, or mediastinum.. 2. No fracture. ABDOMEN AND PELVIS 1. No acute soft tissue abnormality.. 2. No bony abnormality. WSN: [id number] Ordering Physician: Jeanette Vazquez Dictated By: Anjum Lopez MD Dictated Date/Time: 08/02/22 4:41 pm Reviewed By: Anjum Lopez MD Signed By: Anjum Lopez MD Signed Date/Time: 08/02/22 4:41 pm Transcribed By: LOGAN Transcribed Date/Time: 08/02/22 4:19 pm Patient Care team information Care Team Personnel Name: Joaquina Jerome RN Position: [facility] RN Member Role: Primary Care Nurse Name: Joselyn Sevilla RN Position: [facility] RN Member Role: Primary Care Nurse Name: Thomas Bright Position: [facility] Outreach Member Role: PCP Address: Address: [address] [place] [address] Name: Karmen Mandujano RN Position: [facility] Rad RN Member Role: Primary Care Nurse Name: Margie Castanon RN Position: [facility] RN Member Role: Primary Care Nurse Name: Susy Castaneda RN Position: [facility] RN Member Role: Primary Care Nurse Name: Justin Dailey MD Position: [facility] Infectious Disease MD Member Role: Lifetime Consulting Physician Address: Address: [address] [place] [address] Infect[address] Name: Sophia Bell RN Position: [facility] RN Member Role: Primary Care Nurse Name: Veronica Davila RN Position: [facility] RN Member Role: Primary Care Nurse Name: Melva Herndon RN Position: [facility] RN Member Role: Primary Care Nurse Name: Karena Penaloza RN Position: [facility] RN Member Role: Primary Care Nurse Name: Fang Adams RN Position: [facility] [place] Selector Member Role: Primary Care Nurse Name: Karri Jaramillo RN Position: [facility] RN Member Role: Primary Care Nurse Name: Consuelo Alvarenga RN Position: [facility] RN Member Role: Primary Care Nurse Name: Veronica Blanco RN Position: [facility] DANIELLEO RN Member Role: Primary Care Nurse Name: Ramsey Perez RN Position: [facility] RN Member Role: Primary Care Nurse Name: Lazaro Huffman RN Position: [facility] RN Member Role: Primary Care Nurse Name: Jacquelyn Juarez Position: [facility] RN Member Role: Primary Care Nurse Name: Jacquelyn Ramsey RN Position: [facility] RN Member Role: Primary Care Nurse Name: Jennifer Ghosh RN Position: [facility] RN Member Role: Primary Care Nurse Name: Qiana Mansfield RN Position: [facility] RN Member Role: Primary Care Nurse Name: Chuyita Ashley RN Position: [facility] RN Member Role: Primary Care Nurse Name: Elle Blackwood RN Position: [facility] [employer] Selector Member Role: Primary Care Nurse Name: Chandler RNYamilex Position: [facility] RN Member Role: Primary Care Nurse Name: Skip Harry RN Position: [facility] RN Member Role: Primary Care Nurse Name: Valentine Perrin RN Position: [facility] RN Member Role: Primary Care Nurse Name: Mark Howell RN Position: [facility] RN Member Role: Primary Care Nurse Name: Elaine Webb RN Position: [facility] RN Member Role: Primary Care Nurse Name: Stephanie Houser RN Position: [facility] RN Member Role: Primary Care Nurse Name: Amber Gu RN Position: [facility] RN Member Role: Primary Care Nurse Name: Reji Zimmerman Jr Position: [facility] ED RN W/OE and Tasks Member Role: Primary Care Nurse Name: Dang Padilla RN Position: [facility] RN Member Role: Primary Care Nurse Name: Scot Anderson RN Position: [facility] RN Member Role: Primary Care Nurse Name: Luz Marina Byrd RN Position: [facility] RN Member Role: Primary Care Nurse Name: Joelle Sandoval RN Position: [facility] RN Member Role: Primary Care Nurse Name: Gideon Diaz RN Position: [facility] RN Member Role: Primary Care Nurse Name: Diana Anderson RN Position: [facility] RN Member Role: Primary Care Nurse Name: Thomas Betancur RN Position: [facility] RN Member Role: Primary Care Nurse Name: Vee Mcnamara RN Position: [facility] [employer] Member Role: Primary Care Nurse Name: Nisreen Greenberg RN Position: [facility] Outreach Member Role: Primary Care Nurse Name: Lanny Bolton RN Position: [facility] RN Member Role: Primary Care Nurse Name: Anthony Carolina RN Position: [facility] RN Member Role: Primary Care Nurse Name: Ana Dupont RN Position: [facility] RN Member Role: Primary Care Nurse Name: Alyssia Durbin RN Position: [facility] RN Member Role: Primary Care Nurse Name: Afshan Galeano RN Position: [facility] RN Member Role: Primary Care Nurse Name: Reji Bright RN Position: [facility] RN Member Role: Primary Care Nurse Name: Estefanía Austin RN Position: [facility] RN Member Role: Primary Care Nurse Name: Sarah Carson RN Position: [facility] RN Member Role: Primary Care Nurse Name: Amira Hughes RN Position: [facility] RN Member Role: Primary Care Nurse Name: Rina Dunlap LPN Position: [facility] RN Member Role: Primary Care Nurse Name: Chiquis Callejas RN Position: [facility] Onco RN Member Role: Primary Care Nurse Name: Linda Rajput RN, I Position: [facility] RN Member Role: Primary Care Nurse Name: Markell Miranda Position: [facility] Associate Professional Member Role: ED Physician Cheese Wrapper Address: Address: [address] [place] [address] Name: Vicenta De Dios Position: [facility] ED TA [facility] Member Role: Dumbwaiter Operator Name: Claire Benitez MD Position: [facility] ED Medicine MD Member Role: Admitting Physician Address: Address: [address] [place] [id number] Name: Maggy Sharif RN Position: [facility] ED RN W/OE and Tasks Member Role: Patient Care Provider Care Team Related Persons Name: SUSY MEADOWS Address: home [address] [place] [address] Name: YOANDY TAYLOR Address: home [address] [address]
--- OUTSIDE RECORDS SUMMARY | 2023-02-21 14:46 | XMS_ITS | Continuity of Care Document ---
Author Name Unknown Organization [facility] Address [address] [place] [id number]- Care Team Providers Care Project Structural Engineer Name Role Phone Thomas Bright Primary Care Physician [phone] [place] [facility] [place] Date(s): 02/12/22 - 02/12/[address] [address]- Discharge Disposition: A-D/C Home Attending Physician: Iker MG, Myrna Beal Admitting Physician: Myrna Dong MD Referring Physician: Not on Staff, Referring MD Allergies, Adverse Reactions, Alerts Substance Reaction Severity Status Lamictal Hives, itch Active Tegretol Hallucinations, aggression A ctive Tylenol itching Active Lobster Persistent Severe Active Percocet 7.5/325 1 C/O: itching Active influenza virus vaccine, inactivated 2 Active traMADol Active oxyCODONE Persistent Mild Active 1makes pt itchy 2Hx of Guillain - [place] Immunizations Given and Recorded Vaccine Date Status Refusal Reason pneumococcal 23-valent vaccine 02/03/17 Given Not Given Vaccine Date Status Refusal Reason pneumococcal 23-valent vaccine 01/25/17 Not Given Patient Refuses Medications atorvastatin 80 mg oral tablet 1 tablet = 80 mg, By Mouth, Daily, # 30 tablet, 0 Refills, Maintenance, Tablet, Route to Pharmacy Electronically, [id number], [facility] Start Date: 04/02/18 Stop [...] Ordered Isentress HD 600 mg oral tablet See Instructions, 1 tab By Mouth Daily, 0 Refills, Maintenance, 07/30/17 8:20:04 EST Start Date: 07/30/17 Status: Ordered levothyroxine 25 mcg (0.025 mg) oral capsule 1 capsule = 25 mcg, By Mouth, Daily, # 30 capsule, 0 Refills, Maintenance, 10/12/20 23:33:00 EST, Capsule, Partial fill upon patient request if the prescription is for a schedule II opioid drug. Start Date: 10/12/20 Status: Ordered MorPHINE Inj 4 mg, Injection, IV Push Slowly, Once, STAT, 02/12/22 14:20:00 EDT, Stop date 02/12/22 14:20:00 EDT Start Date: 02/12/22 Stop Date: 02/12/22 Status: Completed ondansetron 4 mg oral tablet, disintegrating 1 tablet = 4 mg, By Mouth, Every 8 hours, PRN as needed for nausea/vomiting, # 10 tablet, 0 Refills, Maintenance, 10/15/21 21:12:00 EST, DIS Tablet, [facility]acy #[id number], Partial fill upon patient request if the prescription is for a schedule II opioid... Start Date: 10/15/21 Status: Ordered pantoprazole 40 mg oral delayed release tablet 1 tablet = 40 mg, By Mouth, Daily, take at a different time than famotidine, # 30 tablet, 0 Refills, Maintenance, 02/12/21 19:06:00 EDT, EC Tablet, 175, cm, 01/03/21 16:35:00 EDT, Height, 83, kg, 01/03/21 16:35:00 EDT, Dry Weight Start Date: 02/12/21 Status: Ordered Pradaxa 150 mg oral capsule 1 capsule = 150 mg, By Mouth, 2 times a day, 0 Refills, Maintenance, 05/30/21 20:47:00 EDT, Capsule, Partial fill upon patient request if the prescription is for a schedule II opioid drug. Start Date: 05/30/21 Status: Ordered Prezcobix 800 mg-150 mg oral tablet 1 tablet, By Mouth, Daily, with food, # 30 tablet, 0 Refills, Maintenance, 07/05/17 11:35:26, Tablet Start Date: 07/05/17 Status: Ordered ProAir HFA 90 mcg/inh inhalation aerosol INHALE DANDO DOS SOPLIDOS CADA CUATRO HORAS CUANDO SEA NECESARIO Start Date: 06/16/20 Status: Ordered tenofovir disoproxil [...] Effective Dates Status Health Status Inform ant AAA (abdominal aortic aneurysm)(Confirmed) Active Abdominal pain(Confirmed) Active Asthma(Confirmed) Active Diabetes mellitus(Confirmed) Active GERD (gastroesophageal reflu x disease)(Confirmed) Active 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 Hematoma of leg(Confirmed) Active HIV disease(Confirmed) 2002 Active HLD (hyperlipidemia)(Confirmed) Active HTN (hypertension)(Confirmed) Active Hypothyroidism(Confirmed) Active Skin infection(Confirmed) Active PVD (peripheral vascular disease)(Confirmed) Active 1sequelae, left sided weakness Vital Signs Most recent to oldest [Reference Range]: 1 2 3 Height 175 cm (02/12/22 11:55 AM) 175 cm (02/12/22 11:38 AM) Weight 87.8 kg (02/12/22 11:55 AM) 87.8 kg (02/12/22 11:38 AM) Oxygen Saturation [94-100 %] 100 % (02/12/22 4:29 PM) 100 % (02/12/22 1:45 PM) 100 % (02/12/22 11:55 AM) Pulse Rate [55-90 bpm] 73 bpm (02/12/22 4:29 PM) 78 bpm (02/12/22 1:45 PM) 82 bpm (02/12/22 11:55 AM) Body Mass Index [18.5-24.99] 28.67 *H* (02/12/22 11:38 AM) Blood Pressure [90-138/55-84 mm Hg] 122/73mm Hg (02/12/22 4:29 PM) 118/82mm Hg (02/12/22 1:45 PM) 111/77mm Hg (02/12/22 11:55 AM) Respiratory Rate [16-30 br/min] 18 br/min (02/12/22 4:29 PM) 17 br/min (02/12/22 2:24 PM) 18 br/min (02/12/22 1:45 PM) Temperature [96.8-100.4 DegF] 98.3 DegF (02/12/22 4:29 PM) 98.2 DegF (02/12/22 11:38 AM) Mode of Delivery (Oxygen) Room air (02/12/22 4:29 PM) Room air (02/12/22 1:45 PM) Room air (02/12/22 11:55 AM) Blood pressure sites Arm, right (02/12/22 4:29 PM) Arm, right (02/12/22 1:45 PM) Arm, right (02/12/22 11:55 AM) Temperature Route Oral (02/12/22 4:29 PM) Oral (02/12/22 11:38 AM) Dry Weight 87.8 kg (02/12/22 11:55 AM) 87.8 kg (02/12/22 11:38 AM) Social History Social History Type Response Smoking Status Never (less than 100 in lifetime) entered on: 10/25/21 Sex
--- OUTSIDE RECORDS SUMMARY | 2023-02-21 14:46 | XMS_ITS | Continuity of Care Document ---
Author Name Unknown Organization [facility] Address [address] [place] [id number]- Care Team Providers Care Carriage Dogger Name Role Phone Thomas Bright Primary Care Physician [phone] [place] [facility] [place] 09/12[place]19 - 09/19/19 [facility] [address] [place] [id number] [facility] Attending Physician: Anselmo Mendieta MD Admitting Physician: Anselmo Mendieta MD Referring Physician: Thomas Bright Allergies, Adverse Reactions, Alerts Substance Reaction Severity Status Lamictal Hives, itch Active Tegretol Hallucinations, aggression A ctive Tylenol itching Active Lobster Persistent Severe Active Percocet 7.5/325 1 C/O: itching Active influenza virus vaccine, inactivated 2 Active traMADol Active oxyCODONE Persistent Mild Active 1makes pt itchy 2Hx of Guillain - [place] Immunizations Given and Recorded Vaccine Date Status Refusal Reason pneumococcal 23-valent vaccine 02/03/17 Given Not Given Vaccine Date Status Refusal Reason pneumococcal 23-valent vaccine 01/25/17 Not Given Patient Refuses Medications atorvastatin 80 mg oral tablet 1 tablet = 80 mg, By Mouth, Daily, # 30 tablet, 0 Refills, Maintenance, Tablet, Route to Pharmacy Electronically, [id number], [facility] Start Date: 04/02/18 Stop Date: 05/02/18 Status: Ordered glyBURIDE 2.5 mg oral tablet 2.5 mg, 1, tablet, By Mouth, Daily, # 30 tablet, Refills 0, Maintenance, 12/23/18 19:28:34 EDT Start Date: 12/23/18 Status: Ordered Isentress HD 600 mg oral tablet 2 tablet = 1,200 mg, By Mouth, Daily, 0 Refills, Maintenance, 07/30/17 8:20:04 Start Date: 07/30/17 Status: Ordered levothyroxine 0.025 mg oral tablet 1 tablet = 25 mcg, By Mouth, Daily, # 30 tablet, 5 Refills, Maintenance, 04/02/18 10:24:43 EDT, Tablet Start Date: 04/02/18 Stop Date: 09/29/18 Status: Ordered metFORMIN 500 mg oral tablet 1 tablet = 500 mg, By Mouth, Daily, with meals, # 30 tablet, 0 Refills, Maintenance, 12/23/18 19:29:24 EDT, Tablet Start Date: 12/23/18 Status: Ordered omeprazole 20 mg oral delayed release tablet 1 tablet = 20 mg, By Mouth, Daily, # 30 tablet, 3 Refills, Maintenance, 12/03/17 11:31:18 EDT Start Date: 12/03/17 Status: Ordered Pradaxa 150 mg oral capsule 1 capsule = 150 mg, By Mouth, 2 times a day, 0 Refills, Maintenance, 10/08/18 18:26:29 EST, Capsule Start Date: 10/08/18 Status: Ordered Prezcobix 800 mg-150 mg oral tablet 1 tablet, By Mouth, Daily, with food, # 30 tablet, 0 Refills, Maintenance, 07/05/17 11:35:26, Tablet Start Date: 07/05/17 Status: Ordered traZODone 150 mg oral tablet 1 tablet = 150 mg, By Mouth, Daily at bedtime, 0 Refills, Maintenance, 03/12/18 11:23:20 EDT Start Date: 03/12/18 Status: Ordered Vimpat 100 mg oral tablet 1 tablet = 100 mg, By Mouth, Daily, at night, # 180 tablet, 0 Refills, Maintenance, 10/29/18 6:55:39 EST, Tablet Start Date: 10/29/18 Status: Ordered Vimpat 150 mg oral tablet 1 tablet = 150 mg, By Mouth, Daily, in the morning, 0 Refills, Maintenance, 10/29/18 6:55:35 EST Start Date: 10/29/18 Status: Ordered Zantac 300 oral tablet = 300 mg, By Mouth, Daily, # 30 each, 5 Refills, Maintenance, 02/08/17 10:31:02, Tablet Start Date: 02/08/17 Status: Ordered Problem List Condition Effective Dates Status Health Status Inform ant GERD (gastroesophageal reflu x disease)(Confirmed) Active 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 Hematoma of leg(Confirmed) Active HIV disease(Confirmed) 2003 Active Hypercholesterolemia(Confirmed) 2006 Active HLD (hyperlipidemia)(Confirmed) Active HTN (hypertension)(Confirmed) Active Hypothyroidism(Confirmed) Active Skin infection(Confirmed) Active PVD (peripheral vascular disease)(Confirmed) Active 1sequelae, left sided weakness Vital Signs Most recent to oldest [Reference Range]: 1 Height 175 cm (09/12/19 10:20 AM) Weight 85.73 kg (09/12/19 10:20 AM) Body Mass Index [18.5-24.99] 27.99 *H* (09/12/19 10:20 AM) Blood Pressure [90-138/55-84 mm Hg] 102/ 72mm Hg (09/12/19 10:20 AM) Blood pressure sites Arm, right (09/12/19 10:20 AM) Weight Obtained Via Patient/family state d (09/12/19 10:20 AM) Social History Social History Type Response Smoking Status Former smoker; Tobac co user in household: No; Type: Cigarettes; Other: quit in july 2016; Tobacco use times per day: half pack per day; Started at age: 11; entered on: 05/29/18 Sex
--- OUTSIDE RECORDS SUMMARY | 2023-02-21 14:46 | XMS_ITS | Continuity of Care Document ---
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 Name Role Phone Thomas Bright Primary Care Physician [phone] Encounter [facility] – [place] Date(s): 01/10/23 - 01/11/[address] [address]- Encounter Diagnosis AP (abdominal pain)(Final) - 01/11/23 Discharge Disposition: A-D/C Home Attending Physician: Jerman Tejada MD Admitting Physician: Jerman Tejada MD Referring Physician: Not on Staff, Referring MD Allergies, Adverse Reactions, Alerts Substance Reaction Severity Status Lamictal Hives, itch Active Tegretol Hallucinations, aggression A ctive Percocet 7.5/325 1 C/O: itching Active oxyCODONE Persistent Mild Active Tylenol itching Active Lobster Persistent Severe Active influenza virus vaccine, inactivated 2 Active traMADol Active 1makes pt itchy 2Hx of Guillain - [place] Immunizations Given and Recorded Vaccine Date Status Refusal Reason pneumococcal 23-valent vaccine 02/03/17 Given Not Given Vaccine Date Status Refusal Reason pneumococcal 23-valent vaccine 01/25/17 Not Given Patient Refuses Medications atorvastatin 80 mg oral tablet 1 tablet = 80 mg, By Mouth, Daily at bedtime, # 30 tablet, 0 Refills, Maintenance, Tablet, Route toPharmacy Electronically, [id number], [facility] Start Date: 04/02/18 Stop Date: 05/02/18 Status: Ordered famotidine 20 mg oral tablet TOME DOS TABLETAS POR VIA ORAL TODOS [place] Start Date: 06/16/20 Status: Ordered Isentress HD 600 mg oral tablet 2 tablet = 1,200 mg, By Mouth, Daily, # 60 tablet, 0 Refills, Maintenance, 09/11/22 22:20:00 EST, Tablet, Partial fill upon patient request if the prescription is for a schedule II opioid drug. Start Date: 09/11/22 Status: Ordered levothyroxine 25 mcg (0.025 mg) [...] Moderate, and SBP greater than 100, Routine, 01/10/23 18:18:00 EDT, Stop date Limited # of times Start Date: 01/10/23 Stop Date: 01/10/23 Status: Completed ondansetron 4 mg oral tablet, disintegrating TAKE ONE TABLET BY MOUTH ONCE A DAY NEEDED FOR NAUSEA AND VOMITING Start Date: 09/11/22 Status: Ordered pantoprazole 40 mg oral delayed [...] tenofovir disoproxil fumarate 300 mg oral tablet 1 tablet = 300 mg, By Mouth, Daily, # 30 tablet, 0 Refills, Maintenance, 09/11/22 22:20:00 EST, Tablet, Partial fill upon patient request if the prescription is for a schedule II opioid drug. Start Date: 09/11/22 Status: Ordered traZODone 150 mg oral tablet 1 tablet = 150 mg, By Mouth, Daily at bedtime, 0 Refills, Maintenance, 03/12/18 11:23:20 EDT Start Date: 03/12/18 Status: Ordered Trulicity Pen 1.5 mg/0.5 mL subcutaneous solution INJECT 1 PEN INTO THE SKIN ONCE EVERY WEEK Start Date: 09/11/22 Status: Ordered Vimpat 100 mg oral tablet 1 tablet = 100 mg, By Mouth, 2 times a day, at night, # 180 tablet, 0 Refills, Maintenance, 10/29/18 6:55:39 EST, Tablet Start Date: 10/29/18 Status: Ordered Problem List Condition Confirmation Course Effective Dates Status H ealth Status Informant AAA (abdominal aortic aneurysm) Confirmed Active Abdominal pain Confirmed Active Asthma Confirmed Active Diabetes mellitus Confirmed Active GERD (gastroesophageal reflux disease) Confirmed Active 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 Hematoma of leg Confirmed Active HIV disease Confirmed 2002 Active HLD (hyperlipidemia) Confirmed Active HTN (hypertension) Confirmed Active Hypothyroidism Confirmed Active Skin infection Confirmed Active PVD (peripheral vascular disease) Confirmed Active 1sequelae, left sided weakness Results Radiology Reports * Exam Date Time Procedure Performing Provider Status 01/10/23 6:[address] Abd/Pelvis W/ IV Contrast Only Raya Eagle; Auth (Verified) Notes: (CT Abd/Pelvis W/ IV Contrast Only) Reason For Exam: LLQ abdominal pain;Other: RESULT: CT Abd/Pelvis W/ IV Contrast Only CT Abd/Pelvis W/ IV Contrast Only Hx of Present Illness: pt c o lower abd pain that radiates to bilat flank areas. pt reports having chills yesterday and diarrhea with dark brownish red colored stools. pt on blood thinners. pt seen for similar sx. Denies N V.; Reason: Other:; LLQ abdominal pain; Clinical Question(s): Diverticulitis; Order Comment: TECHNIQUE: Spiral CT through the abdomen and pelvis with IV contrast formatted in 3 planes. 100 cc of Omnipaque 300 was administered intravenously. This study was performed without oral contrast. Weight-based protocol using automatic tube modulation was used to optimize exposure parameters. CTDIvol Body: 15.30 mGy, DLP Body: 868 mGy*cm. COMPARISON: 01/04/2023, 11/15/2022 FINDINGS: Instructor Extension Work View Findings, Lines and Tubes: None. Visualized Chest: Lung bases are clear. Right lower lobe calcified granuloma. No pleural effusion. The heart is normal in size. No pericardial effusion. Diaphragm: Normal. Liver: Diffuse low-attenuation throughout the liver parenchyma consistent with hepatic steatosis. No evidence of mass. Gallbladder: Absent consistent with prior cholecystectomy. Bile ducts: No biliary ductal dilation. Spleen: Calcified granulomas. Normal size. Pancreas: Atrophic. No pancreatic inflammatory change, mass or ductal dilatation Adrenal glands: Normal. Kidneys and ureters: No hydronephrosis, stones, or suspicious masses. Bladder: Mild circumferential wall thickening likely secondary to underdistention. Reproductive organs: Unremarkable. Stomach, small bowel, and large bowel: Stomach is normal. Small and large bowel are normal in caliber without evidence of obstruction. Anastomosis in the sigmoid colon appears intact.. Appendix: Surgically absent Peritoneum and retroperitoneum: No ascites or pneumoperitoneum. No omental or mesenteric lesions. Lymph nodes: No enlarged lymph nodes. Blood vessels: Aorta iliac graft similar to prior No evidence of venous thrombosis. Abdominal and pelvic wall: Supraumbilical fat-containing hernia. Scattered foci of air and inflammatory change in the anterior abdominal wall likely secondary to injections Bones: No acute abnormality. IMPRESSION: No acute abnormality. Additional ancillary findings as above similar to prior WSN: [id number] Ordering Physician: Estelle Sotelo Dictated By: Reji Fox MD Dictated Date/Time: 01/10/23 7:12 pm Reviewed By: Reji Fox MD Signed By: Reji Fox MD Signed Date/Time: 01/10/23 7:12 pm Transcribed By: LOGAN Transcribed Date/Time: 01/10/23 7:03 pm Vital Signs Most recent to oldest [Reference Range]: 1 2 3 Height 175 cm (01/10/23 4:04 PM) 175 cm (01/10/23 3:53 PM) Weight 89.9 kg (01/10/23 4:04 PM) 89.9 kg (01/10/23 3:53 PM) Oxygen Saturation [94-100 %] 99 % (01/10/23 10:05 PM) 98 % (01/10/23 5:33 PM) 98 % (01/10/23 3:53 PM) Pulse Rate [55-90 bpm] 77 bpm (01/10/23 10:05 PM) 92 bpm *H* (01/10/23 5:33 PM) 88 bpm (01/10/23 3:53 PM) Body Mass Index [18.5-24.99 kg/m2] 29.36 kg/m2 *H* (01/10/23 3:53 PM) Blood Pressure [90-138/55-84 mm Hg] 120/76mm Hg (01/10/23 10:05 PM) 107/79mm Hg (01/10/23 5:33 PM) 130/81mm Hg (01/10/23 3:53 PM) Respiratory Rate [16-30 br/min] 18 br/min (01/10/23 11:00 PM) 18 br/min (01/10/23 10:05 PM) 18 br/min (01/10/23 8:35 PM) Temperature [96.8-100.4 DegF] 99.0 DegF (01/10/23 3:53 PM) Mode of Delivery (Oxygen) Room air (01/10/23 10:05 PM) Room air (01/10/23 5:33 PM) Room air (01/10/23 3:53 PM) Blood pressure sites Arm, right (01/10/23 10:05 PM) Arm, right (01/10/23 5:33 PM) Arm, right (01/10/23 3:53 PM) Temperature Route Oral (01/10/23 3:53 PM) Dry Weight 89.9 kg (01/10/23 4:04 PM) 89.9 kg (01/10/23 3:53 PM) Weight Obtained Via Standing scale (01/10/23 3:53 PM) Dry Weight Obtained Via Standing scale (01/10/23 3:53 PM) Social History Social History Type Response Smoking Status Never (less than 100 in lifetime) entered on: 10/25/21 Sex Note * Soco WRIGHT, Kindra Montenegro: PERFORM Event Display: Patient Education Leaflets Authored Date: [id number] Abdominal Pain, Unknown Cause (Adult) ?? [id number] Causas desconocidas del dolor abdominal en adultos Se desconoce la causa exacta del dolor en el vientre (abdomen). Por el momento, las pruebas y los ex??menes no indican shawn causa grave. Mathieu eso no significa que no haya que preocuparse. Todas las personas quieren conocer la causa exacta del problema. Mathieu a veces no hay shawn causa debbie del dolor abdominal, y esto podr??a ser algo weeks. Podr??a sentirse mejor al tratar los s??ntomas.?? Por el momento, cedillo afecci??n no parece ser grave. Sin embargo, a veces los signos de un problema grave pueden tardar m??s en aparecer. Por lo tanto, es importante que vigile cualquier s??ntoma nuevo,dificultad o empeoramiento de cedillo afecci??n. En los d??as siguientes, el dolor abdominal puede aparecer y desaparecer. O puede ser torres. Las n??useas y los v??mitos son otros s??ntomas habituales. A veces, puede ser dif??cil reconocer que tiene n??useas. Podr??a sentirse mal y no relacionarlo con shawn sensaci??n de n??useas. El dolor podr??a estar acompa??ado de estre??imiento, diarrea y fiebre. El dolor puede continuar marie varios d??as, incluso cuando se trata correctamente. Seg??n la evoluci??n del cuadro, a veces la causa puede determinarse y puede requerir m??s o diferentes tratamientos. Tambi??n puede necesitar otras evaluaciones, medicamentos o pruebas. Cuidados en el hogar Cedillo proveedor de atenci??n m??dica puede recetarle medicamentos para el dolor, los s??ntomas o shawn infecci??n. ??Siga las instrucciones del proveedor de atenci??n m??dica para agueda estos medicamentos. Cuidados generales ??? Descanse todo lo que pueda hasta el pr??ximo control. No alesia actividades que requieran mucho esfuerzo. ??? Evite todo lo que pueda causar los s??ntomas. [place] puede incluir no agueda medicamentos,a menos que se lo haya indicado cedillo proveedor de atenci??n m??dica. O no comer determinados alimentos ni hacer determinadas actividades. ??? Trate de encontrar posiciones que alivien el malestar. Shawn almohada eric??a colocada sobre el abdomen puede aliviar el dolor. ??? El calor de, por ejemplo, shawn almohadilla t??rmica en el abdomen puede ayudar, mathieu tenga cuidado de no quemarse. Alimentaci??n ??? No se obligue a comer, especialmente si tiene c??licos, v??mitos o diarrea. ??? Es importante que tome agua para no deshidratarse. Tambi??n puede ser weeks beber sopas. Las bebidas deportivas tambi??n pueden ayudar, en especial si no son muy ??cidas. No tome bebidas con az??car yaque podr??a hacer que empeore. Alesia cantidades eric??as de l??quidos. No alesia r??pido. ??? El consumo de cafe??na a veces puede empeorar el dolor y los c??licos. ??? No ingiera productos l??cteos sitiene v??mitos o diarrea. ??? No ingiera shawn gran cantidad de comida de shawn eriberto vez. Coma varias porciones eric??as a lo claudia del d??a, en vez de 2??o 3??comidas grandes diarias. Espere unos minutos entre bocados. ??? Coma alimentos con poca fibra (esto se llama dieta baja en residuos). Los alimentos permitidos incluyen panes con harina refinada, arroz mcneill, jugos de frutas y verduras sin pulpa y le de res tiernas. Estos alimentos pasan con mayor facilidad por el intestino. ??? Evite los alimentos de granos integrales, las frutas y verduras enteras, las le de res, las semillas y los emmanuel secos, los alimentos fritos o grasosos, los productos l??cteos, el alcohol y los alimentos picantes hasta que los s??ntomas desaparezcan. ?? Seguimiento Alesia el seguimiento con cedillo proveedor de atenci??n m??dica o seg??n las indicaciones si el dolor no comienza a mejorar en las pr??ximas 24??horas. ?? Cu??ndo llamar al?? 911 Llame al?? 911 si ocurre algo de lo siguiente: ??? Dificultad para respirar ??? Confusi??n ??? Desmayos o p??rdida del conocimiento ??? Frecuencia card??carol acelerada ??? Convulsiones ?? Cu??ndo buscar atenci??n m??dica Llame a cedillo proveedor de atenci??n m??dica de inmediato ante cualquiera de las siguientes situaciones: ??? Dolor que empeora o pasa a la parte inferior derecha del abdomen ??? Episodios nuevos de v??mitos o diarrea, o que empeoran ??? Hinchaz??n del abdomen ??? Incapacidad de defecar por m??s de??3??d??as ??? Fiebre de 100.4?F??(38?C) o m??s corey, o seg??n se lo indique cedillo proveedor de atenci??n m??dica ??? Miguel en los v??mitos o en las heces (de color casillas oscuro o abram) ??? Color amarillento en los ojos y la piel (ictericia) ??? Debilidad, mareos ??? Dolor de pecho, en un brazo, la espalda, el kathy o la michael??bula ??? V??mitos excesivos que impiden retener medicamentos, l??quidos o agua ??? Si tiene vagina: sangrado vaginal inesperado o ausencia del per??odo ?? Last Reviewed Date: 2021 ?? [id number] [employer]. Todos los derechos reservados. Esta informaci??n no pretende sustituir la atenci??n m??dica profesional. S??lo cedillo m??dico puede diagnosticar y tratar un problema de rock. ?? CT Abdomen and Pelvis W contrast IV * [facility] S: Reji Hsieh MD: VERIFY Event Display: Result: Authored Date: [id number] CT Abd/Pelvis W/ IV Contrast Only Hx of Present Illness: pt c o lower abd pain that radiates to bilat flank areas. pt reports having chills yesterday and diarrhea with dark brownish red colored stools. pt on blood thinners. pt seen for similar sx. Denies N V.; Reason: Other:; LLQ abdominal pain; Clinical Question(s): Diverticulitis; Order Comment: TECHNIQUE: Spiral CT through the abdomen and pelvis with IV contrast formatted in 3 planes. 100 cc of Omnipaque 300 was administered intravenously. This study was performed without oral contrast. Weight-based protocol using automatic tube modulation was used to optimize exposure parameters. CTDIvol Body: 15.30 mGy, DLP Body: 868 mGy*cm. COMPARISON: 01/04/2023, 11/15/2022 FINDINGS: Instructor Extension Work View Findings, Lines and Tubes: None. Visualized Chest: Lung bases are clear. Right lower lobe calcified granuloma. No pleural effusion. The heart is normal in size. No pericardial effusion. Diaphragm: Normal. Liver: Diffuse low-attenuation throughout the liver parenchyma consistent with hepatic steatosis. No evidence of mass. Gallbladder: Absent consistent with prior cholecystectomy. Bile ducts: No biliary ductal dilation. Spleen: Calcified granulomas. Normal size. Pancreas: Atrophic. No pancreatic inflammatory change, mass or ductal dilatation Adrenal glands: Normal. Kidneys and ureters: No hydronephrosis, stones, or suspicious masses. Bladder: Mild circumferential wall thickening likely secondary to underdistention. Reproductive organs: Unremarkable. Stomach, small bowel, and large bowel: Stomach is normal. Small and large bowel are normal in caliber without evidence of obstruction. Anastomosis in the sigmoid colon appears intact.. Appendix: Surgically absent Peritoneum and retroperitoneum: No ascites or pneumoperitoneum. No omental or mesenteric lesions. Lymph nodes: No enlarged lymph nodes. Blood vessels: Aorta iliac graft similar to prior No evidence of venous thrombosis. Abdominal and pelvic wall: Supraumbilical fat-containing hernia. Scattered foci of air and inflammatory change in the anterior abdominal wall likely secondary to injections Bones: No acute abnormality. IMPRESSION: No acute abnormality. Additional ancillary findings as above similar to prior WSN: [id number] Ordering Physician: Estelle Sotelo Dictated By: Reji Fox MD Dictated Date/Time: 01/10/23 7:12 pm Reviewed By: Reji Fox MD Signed By: Reji Fox MD Signed Date/Time: 01/10/23 7:12 pm Transcribed By: LOGAN Transcribed Date/Time: 01/10/23 7:03 pm Patient Care team information Care Team Personnel Name: Joselyn Sevilla RN Position: S RN Member Role: Primary Care Nurse Name: Thomas Bright Position: S Outreach Member Role: PCP Address: Address: [address] [place] [id number]- Name: Karmen Mandujano RN Position: [facility] Rad RN Member Role: Primary Care Nurse Name: Margie Castanon RN Position: [facility] RN Member Role: Primary Care Nurse Name: Susy Castaneda RN Position: [facility] RN Member Role: Primary Care Nurse Name: Justin Dailey MD Position: [facility] Infectious Disease MD Member Role: Lifetime Consulting Physician Address: Address: [address] [place] [address] [place] [address]- Name: Sophia Bell RN Position: [facility] ED RN W/OE and Tasks Member Role: Primary Care Nurse Name: Veronica Davila RN Position: [facility] RN Member Role: Primary Care Nurse Name: Melva Herndon RN Position: [facility] RN Member Role: Primary Care Nurse Name: Karena Penaloza RN Position: [facility] RN Member Role: Primary Care Nurse Name: Fang Adams RN Position: [facility] Decision Support Analyst Member Role: Primary Care Nurse Name: Karri Jaramillo RN Position: [facility] RN Member Role: Primary Care Nurse Name: Consuelo Alvarenga RN Position: [facility] RN Member Role: Primary Care Nurse Name: Veronica Blanco RN Position: [facility] PCO RN Member Role: Primary Care Nurse Name: Lazaro Huffman RN Position: [facility] RN Member Role: Primary Care Nurse Name: Jacquelyn Juarez Position: [facility] RN Member Role: Primary Care Nurse Name: Jacquelyn Ramsey RN Position: [facility] RN Member Role: Primary Care Nurse Name: Jennifer Ghosh RN Position: [facility] RN Member Role: Primary Care Nurse Name: Qiana Mansfield RN Position: [facility] RN Member Role: Primary Care Nurse Name: Chuyita Ashley RN Position: [facility] RN Member Role: Primary Care Nurse Name: Elle Blackwood RN Position: [facility] Decision Support Analyst Member Role: Primary Care Nurse Name: Yamilex Arteaga RN Position: [facility] RN Member Role: Primary Care Nurse Name: Skip Harry RN Position: [facility] RN Member Role: Primary Care Nurse Name: Valentine Perrin RN Position: [facility] RN Member Role: Primary Care Nurse Name: Mark Howell RN Position: [facility] RN Member Role: Primary Care Nurse Name: Elaine Webb RN Position: [facility] RN Member Role: Primary Care Nurse Name: Stephanie Houser RN Position: [facility] RN Member Role: Primary Care Nurse Name: Amber Gu RN Position: [facility] RN Member Role: Primary Care Nurse Name: Reji Zimmerman Jr Position: [facility] ED RN W/OE and Tasks Member Role: Primary Care Nurse Name: Dang Padilla RN Position: [facility] RN Member Role: Primary Care Nurse Name: Scot Anderson RN Position: [facility] RN Member Role: Primary Care Nurse Name: Luz Marina Byrd RN Position: [facility] RN Member Role: Primary Care Nurse Name: Joelle Sandoval RN Position: [facility] RN Member Role: Primary Care Nurse Name: Gideon Diaz RN Position: [facility] Onco RN Member Role: Primary Care Nurse Name: Diana Anderson RN Position: [facility] RN Member Role: Primary Care Nurse Name: Thomas Betancur RN Position: [facility] RN Member Role: Primary Care Nurse Name: Vee Mcnamara RN Position: [facility] Decision Support Analyst Member Role: Primary Care Nurse Name: Nisreen Greenberg RN Position: [facility] Outreach Member Role: Primary Care Nurse Name: Lanny Bolton RN Position: [facility] RN Member Role: Primary Care Nurse Name: Anthony Carolina RN Position: [facility] RN Member Role: Primary Care Nurse Name: Ana Dupont RN Position: [facility] RN Member Role: Primary Care Nurse Name: Alyssia Durbin RN Position: [facility] RN Member Role: Primary Care Nurse Name: Afshan Galeano RN Position: [facility] SN RN Member Role: Primary Care Nurse Name: Reji Bright RN Position: [facility] RN Member Role: Primary Care Nurse Name: Estefanía Austin RN Position: [facility] RN Member Role: Primary Care Nurse Name: Sarah Carson RN Position: [facility] RN Member Role: Primary Care Nurse Name: Amira Hughes RN Position: [facility] RN Member Role: Primary Care Nurse Name: Rina Dunlap LPN Position: [facility] RN Member Role: Primary Care Nurse Name: Chiquis Callejas RN Position: [facility] Onco RN Member Role: Primary Care Nurse Name: Linda Rajput RN, I Position: [facility] RN Member Role: Primary Care Nurse Name: Jerman Tejada MD Position: [facility] ED Medicine MD Member Role: ED Attending Physician Address: Address: [address] [place] [address] Palliative [place] [address]- Name: Byron Terrell RN Position: [facility] ED RN W/OE and Tasks Member Role: Patient Care Provider Name: Mine Carrillo Position: [facility] ED TA [facility] Name: Kindra Wan NP Position: [facility] Associate Professional Member Role: ED Physician Alligator Hunter Address: Address: [address] [place] [address] [place] [address]- Care Team Related Persons Name: SUSY MEADOWS Address: [address] [place] [address] Name: YOANDY TAYLOR Address: home [address] [address]
--- OUTSIDE RECORDS SUMMARY | 2023-02-21 14:46 | XMS_ITS | Continuity of Care Document ---
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 Name Role Phone Thomas Bright Primary Care Physician Encounter [facility] [place] Date(s): 09/11/22 - 09/12/[address] [id number] Encounter Diagnosis Syncope(Final) - 09/11/22 DVT (deep venous thrombosis)(Final) - 09/11/22 HIV positive(Final) - 09/11/22 Abdominal pain(Final) - 09/11/22 Discharge Disposition: A-D/C Home Attending Physician: Larissa Fuentes MD Admitting Physician: Sunitha MG, Cathi Locke Referring Physician: Not on Staff, Referring MD Allergies, Adverse Reactions, Alerts Substance Reaction Severity Status Lamictal Hives, itch Active Tegretol Hallucinations, aggression A ctive Tylenol itching Active Lobster Persistent Severe Active Percocet 7.5/325 1 C/O: itching Active influenza virus vaccine, inactivated 2 Active traMADol Active oxyCODONE Persistent Mild Active 1makes pt itchy 2Hx of Guillain - [place] Immunizations Given and Recorded Vaccine Date Status Refusal Reason pneumococcal 23-valent vaccine 02/03/17 Given Not Given Vaccine Date Status Refusal Reason pneumococcal 23-valent vaccine 01/25/17 Not Given Patient Refuses Medications atorvastatin 80 mg oral tablet 1 tablet = 80 mg, By Mouth, Daily at bedtime, # 30 tablet, 0 Refills, Maintenance, Tablet, Route toPharmacy Electronically, [id number], [facility] Start Date: 04/02/18 Stop Date: 05/02/18 Status: Ordered dicyclomine 20 mg oral tablet 1 tablet = 20 mg, By Mouth, 4 times a day, # 40 tablet, 0 Refills, Maintenance, 09/30/21 21:11:00 EST, Tablet, Partial fill upon patient request if the prescription is for a schedule II opioid drug. Start Date: 09/30/21 Stop Date: 10/10/21 Status: Ordered enoxaparin 100 mg/mL injectable solution 0.9 mL = 90 mg, Subcutaneous Injection, Every 12 hours, for 30 days, # 54 mL, 0 Refills, Acute 10/12/22 13:08:00 EST, 09/12/22 13:08:00 EST, Injection, [facility]/pharmacy #[id number], Partial fill upon patient request if the prescription is for a schedule II opio... Start Date: 09/12/22 Stop Date: 10/12/22 Status: Ordered famotidine 20 mg oral tablet [...] opioid drug. Start Date: 10/12/20 Status: Ordered morphine 10 mg/5 mL oral solution 5 mL = 10 mg, By Mouth, Every 6 hours, PRN for pain, for 5 days, # 60 mL, 0 Refills, Acute 09/17/2312:08:00 EST, 09/12/22 13:08:00 EST, Solution, [facility]/pharmacy #[id number], Partial fill upon patient request if the prescription is for a schedule II opioid dr... 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 Hematoma of leg Confirmed Active HIV disease Confirmed 2002 Active HLD (hyperlipidemia) Confirmed Active HTN (hypertension) Confirmed Active Hypothyroidism Confirmed Active Skin infection Confirmed Active PVD (peripheral vascular disease) Confirmed Active 1sequelae, left sided weakness Results Radiology Reports * Exam Date Time Procedure Performing Provider Status 09/11/22 5:[address] Abd/Pelvis W/ IV Contrast Only [place] n , [place]; Auth (Verified) Notes: (CT Abd/Pelvis W/ IV Contrast Only) Reason For Exam: LLQ abdominal pain;Other: RESULT: CT Abd/Pelvis W/ IV Contrast Only CT Abd/Pelvis W/ IV Contrast Only Hx of Present Illness: Pt here with multiple complaints. Dizziness with syncopal episode today. Abdpain that has been going on for 3 days. And chronic bilateral leg pain; Reason: Other:; LLQ abdominal pain; Clinical Question(s): Abscess; Order Comment: Patient unable to tolerate PO contrast. TECHNIQUE: Spiral CT through the abdomen and pelvis with IV contrast formatted in 3 planes. 100 cc of Omnipaque 300 was administered intravenously. This study was performed without oral contrast. Weight-based protocol using automatic tube modulation was used to optimize exposure parameters. COMPARISON: None. FINDINGS: Patient Attendant View Findings, Lines and Tubes: None. Visualized Chest: Lung bases are clear. No pleural effusion. The heart is normal in size. No pericardial effusion. Diaphragm: Normal. Liver: Normal. Gallbladder: Absent consistent with prior cholecystectomy. Bile ducts: No biliary ductal dilation. Spleen: Calcified granulomata in the spleen. No acute abnormality. Pancreas: Normal. Adrenal glands: Normal. Kidneys and ureters: No hydronephrosis, stones, or suspicious masses. Bladder: Diffuse bladder wall thickening. Reproductive organs: Unremarkable. Stomach, small bowel, and large bowel: No acute abnormality in the small or large bowel. Stomach appears unremarkable. Appendix: Surgical clips seen in the right lower quadrant suggesting previous appendectomy. No evidence of appendicitis. Peritoneum and retroperitoneum: No ascites or pneumoperitoneum. No omental or mesenteric lesions. Lymph nodes: No enlarged lymph nodes. Blood vessels: Bifurcated stent graft noted. No acute abnormality. No evidence of venous thrombosis. Abdominal and pelvic wall: Unremarkable. Bones: No acute abnormality. IMPRESSION: Diffuse bladder wall thickening. Possible cystitis. No other acute abnormality identified. WSN: [id number] Ordering Physician: Zac White Dictated By: Dada Paiz MD Dictated Date/Time: 09/11/22 5:41 pm Reviewed By: Dada Paiz MD Signed By: Dada Paiz MD Signed Date/Time: 09/11/22 5:41 pm Transcribed By: LOGAN Transcribed Date/Time: 09/11/22 5:37 pm * Exam Date Time Procedure Performing Provider Status 09/11/22 4:28 PM US Doppler Ext Lower Venous Bilat Fent on , Diana; Auth (Verified) Notes: (US Doppler Ext Lower Venous Bilat) Reason For Exam: Pain in limb;Other: RESULT: US Doppler Ext Lower Venous Bilat US Doppler Ext Lower Venous Bilat Hx of Present Illness: Patient is on warfarin. Pt here with multiple complaints. Dizziness with syncopal episode today. Abd pain that has been going on for 3 days. And chronic bilateral leg pain; Reason: Other:; Pain in limb; Clinical Question(s): Thrombosis; Order Comment: 09 11 2022 14:49:28 EST per rnserafin u s guide iv. need 15-20 minutes. COMPARISON: None IMAGING TECHNIQUE: Ultrasound of the veins from the groin through the calf was performed using grayscale, color, and spectral Doppler ultrasound assessing for complete compressibility and normal flowcharacteristics. FINDINGS: RIGHT LOWER EXTREMITY: Common femoral vein: Patent. No thrombosis. Femoral vein: Patent. No thrombosis. Popliteal vein: Patent. No thrombosis. Gastrocnemius veins: The visualized portions are patent without evidence of thrombosis. Peroneal veins: The visualized portions are patent without evidence of thrombosis. Posterior tibial veins: The visualized portions are patent without evidence of thrombosis. LEFT LOWER EXTREMITY: Common femoral vein: Patent. No thrombosis. Femoral vein: There is a 1.9 cm length nonocclusive thrombus within the mid left femoral vein. Popliteal vein: There is a 6.1 cm length nonocclusive thrombus in the left popliteal vein. Gastrocnemius veins: The visualized portions are patent without evidence of thrombosis. Peroneal veins: The visualized portions are patent without evidence of thrombosis. Posterior tibial veins: The visualized portions are patent without evidence of thrombosis. OTHER FINDINGS: Slow flow noted in bilateral lower extremities in the calf veins. There is questionof a pseudoaneurysm associated with the right popliteal artery which measures up to 5 cm in length. IMPRESSION: Study is positive for DVT in the left lower extremity with nonocclusive thrombus visualized in the left femoral and popliteal veins extending along approximately 8.2 cm length. Slow flow is noted in both calf veins. Incidental 5 cm pseudoaneurysm of the right popliteal artery which shows no color Doppler uptake suggesting it is thrombosed. A critical result message (Pike) has been communicated via the [employer] system on 09/11/2022 4:56 PM, Message ID [id number]. WSN: [id number] Ordering Physician: Zac White Dictated By: Fletcher Almonte MD Dictated Date/Time: 09/11/22 4:56 pm Reviewed By: Fletcher Almonte MD Signed By: Fletcher Almonte MD Signed Date/Time: 09/11/22 4:56 pm Transcribed By: LOGAN Transcribed Date/Time: 09/11/22 4:52 pm * Exam Date Time Procedure Performing Provider Status 09/11/22 2:[address] Head/Brain W/O Contrast Yana Pastor; Auth (Verified) Notes: (CT Head/Brain W/O Contrast) Reason For Exam: Trauma RESULT: CT Head/Brain W/O Contrast CT Head/Brain W/O Contrast INDICATION: Hx of Present Illness: Pt here with multiple complaints. Dizziness with syncopal episode today. Abd pain that has been going on for 3 days. And chronic bilateral leg pain; Reason: Trauma;Clinical Question(s): Hematoma TECHNIQUE: Noncontrast head CT using axial technique and reconstructed in axial and coronal planes.Iterative reconstruction techniques are used to optimize dose and image quality. COMPARISON: August 02, 2022 FINDINGS: Patient Attendant view findings, lines and tubes: None. BRAIN AND EXTRA-AXIAL SPACES: No parenchymal hemorrhage, midline shift, or mass effect. Suazo-white matter differentiation is wellpreserved. No acute infarct. Ventricles, sulci, and basilar cisterns are normal. No white matter lesions. No subarachnoid hemorrhage. No subdural or epidural collection. CALVARIUM, SKULL BASE, AND SOFT TISSUES: No fractures or suspicious bony lesions. The paranasal sinuses and mastoid air cells are clear. Visualized orbits and globes are intact. The extracranial soft tissues are unremarkable. IMPRESSION: No acute intracranial pathology. No significant change prior examination. WSN: [id number] Ordering Physician: Zac White Dictated By: Jamir Rivera MD Dictated Date/Time: 09/11/22 2:46 pm Reviewed By: Nicole MG , Jamir Signed By: Jamir Rivera MD Signed Date/Time: 09/11/22 2:46 pm Transcribed By: LOGAN Transcribed Date/Time: 09/11/22 2:39 pm Vital Signs Most recent to oldest [Reference Range]: 1 2 3 Height 175 cm (09/12/22 12:17 PM) 175 cm (09/12/22 10:05 AM) 175 cm (09/12/22 8:57 AM) Oxygen Saturation [94-100 %] 98 % (09/12/22 12:17 PM) 90 % *L* (09/12/22 10:05 AM) 94 % (09/12/22 8:57 AM) Pulse Rate [55-90 bpm] 89 bpm (09/12/22 12:17 PM) 93 bpm *H* (09/12/22 10:05 AM) 93 bpm *H* (09/12/22 8:57 AM) Blood Pressure [90-138/55-84 mm Hg] 117/72mm Hg (09/12/22 12:17 PM) 116/76mm Hg (09/12/22 10:05 AM) 116/76mm Hg (09/12/22 8:57 AM) Respiratory Rate [16-30 br/min] 18 br/min (09/12/22 12:17 PM) 16 br/min (09/12/22 10:25 AM) 16 br/min (09/12/22 10:08 AM) Temperature [96.8-100.4 DegF] 98 DegF (09/12/22 12:17 PM) 97.8 DegF (09/12/22 10:05 AM) 97.8 DegF (09/12/22 8:57 AM) Mode of Delivery (Oxygen) Room air (09/12/22 12:17 PM) Room air (09/12/22 8:57 AM) Room air (09/12/22 6:43 AM) Blood pressure sites Arm, right (09/12/22 12:17 PM) Arm, right (09/12/22 8:57 AM) Arm, right (09/12/22 6:43 AM) Temperature Route Oral (09/12/22 12:17 PM) Oral (09/12/22 10:05 AM) Oral (09/12/22 8:57 AM) Dry Weight 87 kg (09/11/22 6:40 PM) 87 kg (09/11/22 10:35 AM) 87 kg (09/11/22 9:52 AM) Dry Weight Obtained Via Patient/family s tated (09/11/22 9:52 AM) Social History Social History Type Response Smoking Status Never (less than 100 in lifetime) entered on: 10/25/21 Sex Admission evaluation note * Sunitha MG, Cathi Locke: MODIFY Jessica Resendez MD: PERFORM, MODIFY Jessica Resendez MD: MODIFY, MODIFY Jessica Resendez MD: MODIFY, MODIFY Jessica Resendez MD: MODIFY, MODIFY Jessica Resendez MD: MODIFY, MODIFY Jessica Resendez MD: MODIFY Event Display: Admission Note Authored Date: Patient: ??JEROME GONZALEZ ? Age:??47 Years?Sex:??Male?:??1975?? Chief Complaint/Reason for Consultation dizzy and syncope per family, ? fever with ems, and inc abd distention with hx of aortic anuerysm. kinyarwanda speak mainly. 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 Patient states that he woke up thismorning and was feeling well.?? Shortly after breakfast, he?? passed out for 4-5 mins without any apparent trigger or prodrome of symptoms.?? Partner says he did not hit his head.?? Denies any chestpain or shortness of breath prior to or after this event.?? His partner was present and??noticed noextremity movement, tongue biting,??or bowel/bladder incontinence. Chart review shows he has had multiple similar presentations and has been seen by neurology who deemed his presentations to be unlikely for seizure and recommended cardiac workup.?? Normally after a seizure he feels tired but he does not feel current episode was like a seizure for him. ?? Patient also??complaining of lower abdominal pain worse than his??typical abdominal pain.?? No relation with food, positional changes, or bowel movements. No dysuria or melena but did note an episodeof slight blood in stool 1 month ago while in [place] that resolved.?? Of note he has been seenmultiple times in the past year with this issue with at least 20 CTAPs.? He is also complained of??leg pain, worse in L side and worse than usual.?? He also felt that his left leg had been??more swollen than usual??over the past??2 weeks??but that nobody else??thought it was swollen. ??Is compliant with his warfarin, last took yesterday. ??He has had recurrent DVTs??andis currently on warfarin for this issue.?? He stated he had previously had an IVC filter??but it was removed??because he was told it was predisposing him to more clots. ?? He has been vitally stable in the ED.?? Labs show mild anemia, subtherapeutic INR.?? No electrolyteabnormalities.?? Mildly elevated alk phos but appears around the level it has been during prior hospital visits over the past year.?? LFTs within normal limits.?? Troponins negative.?? UA negative for UTI.?? EKG shows normal sinus rhythm and is similar to prior EKGs.?? CT head negative for any acute pathologies. CTAP only remarkable for bladder wall thickening.?? Ultrasound of the leg was positive for DVT in the left lower extremity with nonocclusive thrombus visualized in the left femoral and popliteal veins extending along approximately 8.2 cm length. Also shows slow flow is noted in both calf veins and incidental 5 cm pseudoaneurysm of the right popliteal artery which shows no color Doppler uptake suggesting it is thrombosed. ?? Of note, last echo done in May 2022 showed normal LV size, with mild asymmetric hypertrophy due to sigmoid septum, ejection fraction 55% with no regional wall motion abnormalities.?? No significant valvular disease. Review of Systems Constitutional: No fever or chills, recent unintentional change in weight ENT: No sore throat or hearing loss Respiratory: No shortness of breath or cough Cardiovascular: No chest pain, no palpitations Gastrointestinal: No nausea/vomiting, diarrhea. Per HPI Genitourinary: No dysuria or urinary urgency Neurologic: No headache MSK: Leg pain per HPI Skin: No rash or itching All other ROS reviewed and negative or noncontributory?? Objective Measurements?? Height: 175 cm (09/11/22) Dry Weight: 87 kg (09/11/22) ? Vital Signs?? Temperature: 98.5 DegF (09/11/22 16:05:00) Temperature Route: Oral (09/11/22 12:23:00) Pulse Rate: 78 bpm (09/11/22 20:13:00) Respiratory Rate: 16 br/min (09/11/22 20:13:00) Systolic Blood Pressure: 123 mm Hg (09/11/22 20:13:00) Diastolic Blood Pressure:??85 mm Hg??High (09/11/22 20:13:00) Blood pressure sites: Arm, left (09/11/22 20:13:00) Mean Arterial Pressure: 92 mm Hg (09/11/22 18:40:00) Pulse Pressure: 38 mm Hg (09/11/22 20:13:00) Oxygen Saturation: 98 % (09/11/22 20:13:00) Mode of Delivery (Oxygen): Room air (09/11/22 20:13:00) Early Warning Score: 0 (09/11/22 21:11:45) ? Physical Exam General: No acute distress, AAOx3 HEENT: EOMI Cardio:??normal S1 S2,??regular rate and rhythm. pulses 2/4 Respiratory: CTA bilaterally w/ no audible wheezes or rales GI: soft, nondistended, bowel sounds present. LLQ and RLQ tenderness : no suprapubic tenderness Extremities: moving ext freely, pos Eden sign L leg.??no peripheral edema. Derm: no rashes Neuro: grossly intact. No focal neuro deficits Psych: appropriate mood and affect Assessment/Plan ?? 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 ?? Syncope vs Seizure Hx Seizures on Vimpat Patient having multiple episodes of syncope and seen multiple times in ED over past year. Has hx seizures on vimpat??but last seizure was 4 years ago Currently hemodynamically stable with no focal neurological deficits CT head was negative Patient has been seen several??times??during prior stays by??neurology??who do not believe the symptoms are suggestive of seizure activity??and recommendations were made??to complete syncope work-up and follow-up outpatient with cardiology.?? Current episode does not seem to be a seizure. Also does not seem to be a PE - patient not hypoxic, no chest pain Also does not seem to be related to hypoglycemia as was the case in prior admission for syncope.?? Patient is only on trulicity and no low episodes reported including on admission today Last echo??06/01/22: LVEF 55%, no valvular disease. Mild asymmetric hypertrophy??due to a sigmoid septum. ?? Plan: cardiac monitor/tele 30 day??holter monitor on discharge Orthostatic vitals ?? Recurrent DVTs LLE DVT Pls see heme note 05/10/22 for additional DVT/anticoagulation details. Previously on warfarin, and then warfarin + lovenox for DVTs.?? Appears to need high doses of warfarin for therapeutic levels of anticoagulation. Failed pradaxa/dabigatran therapy in the past. Heme was suspecting possible genetic mutation leading to altered metabolism requiring higher doses to maintain therapeutic INR levels with plan for further workup outpatient. Cannot take other forms of DOACs due to interactions with HAART. 09/11: Ultrasound of the leg was positive for DVT in the left lower extremity with nonocclusive thrombus visualized in the left femoral and popliteal veins extending along approximately 8.2 cm length.Also shows slow flow is noted in both calf veins and incidental 5 cm pseudoaneurysm of the right popliteal artery which shows no color Doppler uptake suggesting it is thrombosed. Was given lovenox 90 in ED Plan: Warfarin increased to 10 mg daily Will also bridge with weight based lovenox for INR 2-3 Heme outpatient as planned ? Abdominal Pain Likely noncardiac. Multiple etiologies considered but does not seem to correlate with vasovagal cause for syncope, ischemic etiology, or infectious EKG unchanged from??previous??with troponin negative x2 and symptoms reproducible with palpation Patient is having abdominal pain/tenderness but without guarding/rigidity. LBM this AM. CT??unremarkable except for bladder wall thickening. UA neg for UTI Reports allergies and adverse reactions to multiple pain meds.?? Only morphine has worked well for him in prior hospitalizations. Plan: Morphine 2q3h prn EKG prn for chest pain ?? Diabetes Mellitus Type 2 Hypoglycemia Home regimen is trulicity 1.5mg weekly.?? Glyburide was previously discontinued because thought to contribute to LOC episodes and hypoglycemia. Last A1C 6.2 in May ?? Plan: Stop trlucity while hospitalized and start??lispro sliding scale. Check POC glucoses 4x/day Hypoglycemia protocol ?? Chronic/Other Medical Problems HIV on HAART: Insentress, Prezcobix, tenofivir ordered Hyperlipidemia: home atorvastatin 80mg ?? Quality Measures Diet: diabetic DVT ppx: warfarin + lovenox as above Code: full Family:??would like his partner Yoandy to be updated in the AM. ?? Patient's condition and management discussed by me with attending physician, Dr. Helton ?? Jessica Resendez M.D. PGY-1, Internal Medicine Pager #[phone] ? Attending Attestation: I have seen and evaluated this patient???09/11/[address] after hehad presented for evaluation following??a witnessed recurrent??syncopal event??that was preceded bydizziness??along with acute on chronic??abdominal pain and distention and reported??left leg??m??and was found to have??subtherapeutic INR of 1.4 despite complete adherence to warfarin??and an ultrasound showing an 8 cm DVT of the left lower extremity??but imaging did not reveal a specific cause ofhis??acute on chronic abdominal pain???admitted for??bridging anticoagulation,??syncope evaluation and pain control. ??I have discussed the case and its management with the resident and agree with the findings and plan as documented in the resident??s note. ?? [] Histories Allergies Allergies ?(Active and Proposed Allergies Only) traMADol? (Severity: Unknown severity, Onset: Unknown) Tylenol? (Severity: Unknown severity, Onset: Unknown) ?Reactions: itching oxyCODONE? (Severity: Persistent Mild, Onset: Unknown) Percocet 7.5/325? (Severity: Unknown severity, Onset: Unknown) ?Reactions: C/O: itching ?Comments: makes pt itchy Lobster? (Severity: Persistent Severe, Onset: Unknown) influenza virus vaccine, inactivated? (Severity: Unknown severity, Onset: Unknown) ?Comments: Hx of Guillain - [place] Tegretol? (Severity: Unknown severity, Onset: Unknown) ?Reactions: Hallucinations, aggression Lamictal? (Severity: Unknown severity, Onset: Unknown) ?Reactions: Tegretol measurement, Hives, itch ? Past Medical History/Problem List Active Problems??(17) AAA (abdominal aortic aneurysm) Abdominal pain Asthma Chest pain Diabetes mellitus Ex-smoker, quit 2016 GERD (gastroesophageal reflux disease) Guillain-[place] syndrome Hematoma of leg HIV disease HLD (hyperlipidemia) HTN (hypertension) Hypothyroidism PVD (peripheral vascular disease) Seizure disorder - PNES Sepsis Skin infection Recurrent DVT???history of IVC filter???warfarin ? Past Surgical History Esophagogastroduodenoscopy and biopsy: 04/20/20 Upper gastrointestinal endoscopy including esophagus, stomach, and either the duodenum and/or jejunum as appropriate; diagnostic, with or without collection of specimen(s) by brushing or washing (separate procedure): 01/01/18 Upper GI endoscopy: 01/01/18 Left common iliac artery thrombectomy. 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 Left DOMENICO stenting w/iCAST stents. ??Right DOMENICO stenting iCAST stent. Left lower extremity 4 compartment fasciotomy: 01/21/17 Cholecystectomy Endovascular repair of abdominal aortic [id number]?? Appendectomy IVC filter history of left lower extremity??fasciotomy ?? Social History Alcohol Details:??Use: Never. Details:??Use: Past. ??Frequency: Daily. ??Type: Liquor. ??Other: has not drank in 20 years. Substance Abuse Details:??Use: Never. Details:??Use: Never. Tobacco Details:??Use: Never (less than 100 in lifetime). Details:??Former smoker, Tobacco user in household: No. ??Other: quit in july 2016. ??Type: Cigarettes. ??Tobacco use times per day: half pack per day. ??Started at age: 11 Years. Electronic Cigarette/Vaping Details:??Electronic Cigarette Use: Never. ? Family History Pat. Grandfather: Deep vein thrombosis ? Travel History Travel Outside [facility]: No ?? Medications Home Medications Albuterol (ProAir HFA 90 mcg/inh inhalation aerosol)?INHALE DANDO DOS SOPLIDOS CADA CUATRO HORASCUANDO SEA NECESARIO Atorvastatin (atorvastatin 80 mg oral tablet)?1?tab(s)?80?Milligram?By Mouth?Daily at bedtime?for 30?Days Cobicistat/Darunavir (Prezcobix 800 mg-150 mg oral tablet)?1?tab(s)?By Mouth?Daily?with food Dicyclomine (dicyclomine 20 mg oral tablet)?1?tab(s)?20?Milligram?By Mouth?4 times a day?for 10?Days dulaglutide (Trulicity Pen 1.5 mg/0.5 mL subcutaneous solution)?INJECT 1 PEN POR V A INTRAMUSCULAR ONCE WEEKLY Famotidine (famotidine 20 mg oral tablet)?TOME DOS TABLETAS POR VIA ORAL TODOS [place] Lacosamide (Vimpat 100 mg oral tablet)?1?tab(s)?100?Milligram?By Mouth?2 times a day?at night Levothyroxine (levothyroxine 25 mcg (0.025 mg) oral capsule)?1?capsule?25?Microgram?By Mouth?Daily Ondansetron (ondansetron 4 mg oral tablet, disintegrating)?TAKE ONE TABLET BY MOUTH ONCE A DAY NEEDED FOR NAUSEA AND VOMITING Pantoprazole (pantoprazole 40 mg oral delayed release tablet)?1?tab(s)?40?Milligram?By Mouth?Daily?take at a different time than famotidine Raltegravir (Isentress HD 600 mg oral tablet)?2?tab(s)?1,200?Milligram?By Mouth?Daily Tenofovir (tenofovir disoproxil fumarate 300 mg oral tablet)?1?tab(s)?300?Milligram?By Mouth?Daily Trazodone (traZODone 150 mg oral tablet)?1?tab(s)?150?Milligram?By Mouth?Daily atbedtime Warfarin (warfarin 7.5 mg oral tablet)?See Instructions?every Sunday, Sunday, , Sunday Warfarin (warfarin 10 mg oral tablet)?See Instructions?every Sunday, Sunday, Sunday ? Not currently taking-- ??Enoxaparin (Lovenox 150 mg/mL injectable solution)?130?Milligram?Subcutaneous Injection?Daily?Take lovenox 130mg subcutaneous daily, a,long with coumadin. Check blood work for INR on 06/04/2022 and 06/07/22 . You can stop lovenox once INR is 2.0 Results Recent Labs BLOOD COUNT & DIFF WBC 4.7 k/mm3 ()?? 09/11/2022 11:35 RBC 4.40 m/mm3 (Low)?? 09/11/2022 11:35 Hgb 12.4 Gm/dL (Low)?? 09/11/2022 11:35 Hct 39.6 % (Low)?? 09/11/2022 11:35 MCV 90.0 femtoliters ()?? 09/11/2022 11:35 MCH 28.2 pg ()?? 09/11/2022 11:35 MCHC 31.3 g/dL (Low)?? 09/11/2022 11:35 Platelet Count 182 k/mm3 ()?? 09/11/2022 11:35 RDW-SD 54.2 femtoliters (High)?? 09/11/2022 11:35 MPV 9.7 femtoliters ()?? 09/11/2022 11:35 Nucleated RBC (Automated) 0.0 #/100 WBC'S ()?? 09/11/2022 11:35 Abs. NRBC 0.0 k/mm3 ()?? 09/11/2022 11:35 Abs. Neut 2.4 k/mm3 ()?? 09/11/2022 11:35 Abs. Lymph 1.8 k/mm3 ()?? 09/11/2022 11:35 Abs. [place] 0.4 k/mm3 ()?? 09/11/2022 11:35 Abs. Eo 0.0 k/mm3 ()?? 09/11/2022 11:35 Abs. Baso 0.0 k/mm3 ()?? 09/11/2022 11:35 Neut % 52.4 % ()?? 09/11/2022 11:35 Lymph % 37.8 % ()?? 09/11/2022 11:35 [place] % 8.8 % ()?? 09/11/2022 11:35 Eos % 0.4 % ()?? 09/11/2022 11:35 Baso % 0.4 % ()?? 09/11/2022 11:35 Imm Gran 0.2 % ()?? 09/11/2022 11:35 Abs. Imm Gran 0.0 k/mm3 ()?? 09/11/2022 11:35 ?? CARDIAC High Sensitivity Troponin (HSTnT) 8 ng/L ()?? 09/11/2022 14:48 ?? CHEM GENERAL Sodium 137 mmol/L ()?? 09/11/2022 11:35 Potassium 4.1 mmol/L ()?? 09/11/2022 11:35 Chloride 104 mmol/L ()?? 09/11/2022 11:35 Bicarbonate Level 22 mmol/L ()?? 09/11/2022 11:35 Anion Gap 11 ()?? 09/11/2022 11:35 Glucose Level 143 mg/dL (High)?? 09/11/2022 11:35 BUN 8 mg/dL ()?? 09/11/2022 11:35 Creatinine-Blood 1.0 mg/dL ()?? 09/11/2022 11:35 Estimated GFR Creatinine 95 ML/MIN/1.73 M2 ()?? 09/11/2022 11:35 Calcium 9.0 mg/dL ()?? 09/11/2022 11:35 Protein, Total 8.6 Gm/dL (High)?? 09/11/2022 11:35 Albumin 4.1 Gm/dL ()?? 09/11/2022 11:35 AG Ratio 0.9 ()?? 09/11/2022 11:35 Alkaline Phosphatase 161 units/L (High)?? 09/11/2022 11:35 Lipase 18 units/L ()?? 09/11/2022 11:35 AST (SGOT) 28 units/L ()?? 09/11/2022 11:35 ALT (SGPT) 26 units/L ()?? 09/11/2022 11:35 Bilirubin, Total 0.3 mg/dL ()?? 09/11/2022 11:35 Lactate 1.9 mmol/L ()?? 09/11/2022 11:35 ?? COAG INR 1.4 (High)?? 09/11/2022 15:30 Protime (PT) 14.0 seconds (High)?? 09/11/2022 15:30 ?? UA/URINALYSIS Appear/Color, Urine YELLOW ()?? 09/11/2022 11:40 Specific [place], Urine 1.021 ()?? 09/11/2022 11:40 pH, Urine 7.0 ()?? 09/11/2022 11:40 Albumin, Urine 1+ (Abnormal)?? 09/11/2022 11:40 Glucose, Urine 4+ (Abnormal)?? 09/11/2022 11:40 Ketones, Urine NEGATIVE ()?? 09/11/2022 11:40 Bilirubin, Urine NEGATIVE ()?? 09/11/2022 11:40 Hemoglobin, Urine NEGATIVE ()?? 09/11/2022 11:40 Nitrite, Urine NEGATIVE ()?? 09/11/2022 11:40 Leukocyte, Urine NEGATIVE ()?? 09/11/2022 11:40 Urobilinogen NORMAL mg/dL ()?? 09/11/2022 11:40 WBC's, Urine NONE SEEN /HPF ()?? 09/11/2022 11:40 RBC's, Urine NONE SEEN /HPF ()?? 09/11/2022 11:40 Squamous Epith 1 /HPF ()?? 09/11/2022 11:40 Amorphous Crystals MODERATE /HPF ()?? 09/11/2022 11:40 Hold Urine Culture Testing available 48 hours from time of collection. ()?? 09/11/2022 11:40 ?? VIROLOGY COVID-19 POC Result NEGATIVE ()?? 09/11/2022 10:09 ? Hospital Progress note * Wesley SIMEON, Jemima Saeed: PERFORM, SIGN, VERIFY Event Display: Progress Note Hospital Authored Date: Patient: JEROME GONZALEZ Age: 47 years Sex: Male : 1975 Associated Diagnoses: None Author: Jemima Olson RN Findings Pt remained alert/oriented. VSS. Ambulating on unit w/o problem and tolerating po. IV removed and dc instructions reviewed w/pt. Pt did not want to wait for wheel truing machine tender - s/o on facetime and RN explained dc instructions to both pt and s/o Yoandy . Both verbalized understanding. Hardcopy given to pt and he ambulated off unit to meet s/o at [facility] to go home. * Jemima Olson RN: PERFORM, SIGN, VERIFY Event Display: Progress Note Hospital Authored Date: [id number] Patient: JEROME GONZALEZ Age: 47 years Sex: Male : 1975 Associated Diagnoses: None Author: Jemima Olson RN Findings Pt arrived on unit by stretcher. wheel truing machine tender to bedside for admission. Pt alert/oriented x4. VSS. Showing NSR on telemetry. POC 87. RN oriented pt to unit/call system. Reviewed meds/s/sx to report to RN leanne Rn reviewed indication for telemetry monitoring. LL calf area painful per pt report- not erythema or swelling of LLE noted on assessment +pp. Pt d/w attending dc today - Pt states hewill take his own meds when he gets home but allowed Rn to administer Lovenox 90mg and Levothyroxine. Pt denies questions. Note * Jemima Olson RN: PERFORM Event Display: Discharge/Transfer Note Hospital Authored Date: Nursing Discharge Note Entered On: 09/12/2022 14:44 EST Performed On: 09/12/2022 14:43 EST by Jemima Olson RN Nursing Discharge Note 2 Discharge Time : 09/12/2022 14:43 EST Discharge Level of Care at Discharge : Home/Halfway/Foster Care Patient Left Unit Via : Ambulatory Patient Accompanied Off Unit with : Significant other DC Instructions Provided & Signed by Pt : Yes Patient Understands D/C Instructions : Yes Patient Instructions Discharge Signed : Yes Did Pt have Specialty Bed or Wound Vac : No Wesley SIMEON, Jemima Saeed - 09/12/2022 14:43 EST * Alfredo MG, Larissa: PERFORM, MODIFY Event Display: Discharge/Transfer Note Hospital Authored Date: [id number] Patient: ??JEROME GONZALEZ ? Age:??47 Years?Sex:??Male?:??1975?? Patient Information Discharge Location: [facility] Primary Care Physician: Thomas Bright Admit Date/Time: 09/11/22 09:37 Discharge Disposition Discharge Disposition: Home: No Services Discharge Diagnosis Syncope DVT (deep venous thrombosis) (I82.409) HIV positive (Z21) AAA (abdominal aortic aneurysm) Abdominal pain Asthma Diabetes mellitus GERD (gastroesophageal reflux disease) HIV disease HLD (hyperlipidemia) HTN (hypertension) Hypothyroidism PVD (peripheral vascular disease) Seizure disorder ?? _ Discharge Medications Albuterol (ProAir HFA 90 mcg/inh inhalation aerosol)?INHALE DANDO DOS SOPLIDOS CADA CUATRO HORASCUANDO SEA NECESARIO Atorvastatin (atorvastatin 80 mg oral tablet)?1?tab(s)?80?Milligram?By Mouth?Daily at bedtime?for 30?Days Cobicistat/Darunavir (Prezcobix 800 mg-150 mg oral tablet)?1?tab(s)?By Mouth?Daily?with food Dicyclomine (dicyclomine 20 mg oral tablet)?1?tab(s)?20?Milligram?By Mouth?4 times a day?for 10?Days dulaglutide (Trulicity Pen 1.5 mg/0.5 mL subcutaneous solution)?INJECT 1 PEN INTO THE SKIN ONCE EVERY WEEK Enoxaparin (enoxaparin 100 mg/mL injectable solution)?0.9?Milliliter?90?Milligram?Subcutaneous Injection?Every 12 hours?for 30?Days Famotidine (famotidine 20 mg oral tablet)?TOME DOS TABLETAS POR VIA ORAL TOD[place] Lacosamide (Vimpat 100 mg oral tablet)?1?tab(s)?100?Milligram?By Mouth?2 times a day?at night Levothyroxine (levothyroxine 25 mcg (0.025 mg) oral capsule)?1?capsule?25?Microgram?By Mouth?Daily Morphine (morphine 10 mg/5 mL oral solution)?5?Milliliter?10?Milligram?By Mouth?Every 6 hours?as needed?for pain?for 5?Days Ondansetron (ondansetron 4 mg oral tablet, disintegrating)?TAKE ONE TABLET BY MOUTH ONCE A DAY NEEDED FOR NAUSEA AND VOMITING Pantoprazole (pantoprazole 40 mg oral delayed release tablet)?1?tab(s)?40?Milligram?By Mouth?Daily?take at a different time than famotidine Raltegravir (Isentress HD 600 mg oral tablet)?2?tab(s)?1,200?Milligram?By Mouth?Daily Tenofovir (tenofovir disoproxil fumarate 300 mg oral tablet)?1?tab(s)?300?Milligram?By Mouth?Daily Trazodone (traZODone 150 mg oral tablet)?1?tab(s)?150?Milligram?By Mouth?Daily atbedtime ? Durable Medical Equipment Discharge recommendations: Home with services (06/02/22) Name of Agency #1: [facility] (06/01/22) Service Categories #1: Physical Therapy, Group Home (06/01/22) Ambulatory devices needed: None (06/01/22) ? Medications Started lovenox Medications Discontinued coumadin Allergies Allergies ?(Active and Proposed Allergies Only) traMADol? (Severity: Unknown severity, Onset: Unknown) Tylenol? (Severity: Unknown severity, Onset: Unknown) ?Reactions: itching oxyCODONE? (Severity: Persistent Mild, Onset: Unknown) Percocet 7.5/325? (Severity: Unknown severity, Onset: Unknown) ?Reactions: C/O: itching ?Comments: makes pt itchy Lobster? (Severity: Persistent Severe, Onset: Unknown) influenza virus vaccine, inactivated? (Severity: Unknown severity, Onset: Unknown) ?Comments: Hx of Guillain - [place] Tegretol? (Severity: Unknown severity, Onset: Unknown) ?Reactions: Hallucinations, aggression Lamictal? (Severity: Unknown severity, Onset: Unknown) ?Reactions: Tegretol measurement, Hives, itch ? PCP Follow-Up/Heads-Up Pt with progression of DVT while on Coumadin, switching him to Lovenox ?? Future Appointments Sunday 2:00 PM EDT ?? With: Reuben Kessler MD Where: [facility] [address] [place] [address]- Objective Assessment and Plan Jerome is 47 year old gentleman with a past medical history AAA s/p repair with EVAR 2016 in [facility] complicated by stent graft occlusion, s/p left common iliac thrombectomy and b/l common iliac stent placement, seizures on vimpat (last seizure more than 4 years ago), hx of PNES per chart review (patient still takes vimpat), hx left leg compartment fasciotomy, HIV on HAART, PVD, asthma, GERD,diverticulitis s/p resection, GBS after flu, DMT2, HL, former smoker, and 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 ?? Syncope vs Seizure Hx Seizures on Vimpat Patient having multiple episodes of syncope and seen multiple times in ED over past year. Has hx seizures on vimpat??but last seizure was 4 years ago Currently hemodynamically stable with no focal neurological deficits CT head was negative Patient has been seen several??times??during prior stays by??neurology??who do not believe the symptoms are suggestive of seizure activity??and recommendations were made??to complete syncope work-up and follow-up outpatient with cardiology.?? Current episode does not seem to be a seizure. Also does not seem to be a PE - patient not hypoxic, no chest pain Also does not seem to be related to hypoglycemia as was the case in prior admission for syncope.?? Patient is only on trulicity and no low episodes reported including on admission today Last echo??06/01/22: LVEF 55%, no valvular disease. Mild asymmetric hypertrophy??due to a sigmoid septum. ??Tele no arrythmia Syncope from vasovagal ? no further work up needed at this time ??F/u with cardiology as OP ?? Will benefit from 30 day??holter monitor on discharge ? Recurrent DVTs LLE DVT Pls see heme note 05/10/22 for additional DVT/anticoagulation details. Previously on warfarin, and then warfarin + lovenox for DVTs.?? Appears to need high doses of warfarin for therapeutic levels of anticoagulation. Failed pradaxa/dabigatran therapy in the past. Heme was suspecting possible genetic mutation leading to altered metabolism requiring higher doses to maintain therapeutic INR levels with plan for further workup outpatient. Cannot take other forms of DOACs due to interactions with HAART. 09/11: Ultrasound of the leg was positive for DVT in the left lower extremity with nonocclusive thrombus visualized in the left femoral and popliteal veins extending along approximately 8.2 cm length.Also shows slow flow is noted in both calf veins and incidental 5 cm pseudoaneurysm of the right popliteal artery which shows no color Doppler uptake suggesting it is thrombosed. Was given lovenox 90 in ED ??Discussed with pt at length, he is compliant with Coumadin nad INR therapeutic in majority of home readings? Given progression of DVT while on Coumadin , concern of Coumadin failure, will DC Coumadin and continue him on therapeutic lovenox ?? F/u with PCP for hematology referral as OP ??Plan discussed with pt at length ? Abdominal Pain ? Patient is having abdominal pain/tenderness but without guarding/rigidity. LBM this AM. CT??unremarkable except for bladder wall thickening. UA neg for UTI Reports allergies and adverse reactions to multiple pain meds.?? Only morphine has worked well for him in prior hospitalizations. ??symptomatic treatment Morphine ??e10 mg/5 ml solution total 60 ml prescribed on DC after checking Mass pat ?? Diabetes Mellitus Type 2 Hypoglycemia Home regimen is trulicity 1.5mg weekly.?? Glyburide was previously discontinued because thought to contribute to LOC episodes and hypoglycemia. Last A1C 6.2 in May ?on trulicity ?? Chronic/Other Medical Problems HIV on HAART: Insentress, Prezcobix, tenofivir ordered Hyperlipidemia: home atorvastatin 80mg ? . Physical Exam GENERAL: In no apparent distress HEENT: Head normocephalic, PERRL,Moist mucous membrane. Neck supple CARDIOVASCULAR: Normal rate and rhythm, no murmurs, no rubs, no gallops RESPIRATORY: Lungs clear to auscultation, no wheezes , no crackles ABDOMEN/GI: Nondistended, soft, nontender, normal bowel sounds EXTREMITIES: No pitting edema DISTRICT SALES COORDINATOR: Alert and oriented x 3.Non focal neuro exam. PSYCHIATRIC: Calm and co-operative ? Pending Results Basic Metabolic Panel ordered on 09/13/2022 CBC ordered on 09/13/2022 Hold Blue Top Tube ordered on 09/11/2022 INR ordered on 09/12/2022 Follow-Up Appointments Added Follow Up ?Time Frame ?Comments Eddy PEREZ, Thomas Locke?1 to 2 weeks?pl call to schedule follow up appointment Post Discharge Care Discharge ?09/12/22 13:11:00 EST Discharge Prescriptions ?ePrescribed, ??09/12/22 13:11:00 EST Home Health Face to Face ^HomeHealthFTF Results Discharge Labs BLOOD COUNT & DIFF WBC 4.7 k/mm3 ()?? 09/11/2022 11:35 RBC 4.40 m/mm3 (Low)?? 09/11/2022 11:35 Hgb 12.4 Gm/dL (Low)?? 09/11/2022 11:35 Hct 39.6 % (Low)?? 09/11/2022 11:35 MCV 90.0 femtoliters ()?? 09/11/2022 11:35 MCH 28.2 pg ()?? 09/11/2022 11:35 MCHC 31.3 g/dL (Low)?? 09/11/2022 11:35 Platelet Count 182 k/mm3 ()?? 09/11/2022 11:35 RDW-SD 54.2 femtoliters (High)?? 09/11/2022 11:35 MPV 9.7 femtoliters ()?? 09/11/2022 11:35 Nucleated RBC (Automated) 0.0 #/100 WBC'S ()?? 09/11/2022 11:35 Abs. NRBC 0.0 k/mm3 ()?? 09/11/2022 11:35 Abs. Neut 2.4 k/mm3 ()?? 09/11/2022 11:35 Abs. Lymph 1.8 k/mm3 ()?? 09/11/2022 11:35 Abs. [place] 0.4 k/mm3 ()?? 09/11/2022 11:35 Abs. Eo 0.0 k/mm3 ()?? 09/11/2022 11:35 Abs. Baso 0.0 k/mm3 ()?? 09/11/2022 11:35 Neut % 52.4 % ()?? 09/11/2022 11:35 Lymph % 37.8 % ()?? 09/11/2022 11:35 [place] % 8.8 % ()?? 09/11/2022 11:35 Eos % 0.4 % ()?? 09/11/2022 11:35 Baso % 0.4 % ()?? 09/11/2022 11:35 Imm Gran 0.2 % ()?? 09/11/2022 11:35 Abs. Imm Gran 0.0 k/mm3 ()?? 09/11/2022 11:35 ?? CARDIAC High Sensitivity Troponin (HSTnT) 8 ng/L ()?? 09/11/2022 14:48 ? CHEM GENERAL Sodium 137 mmol/L ()?? 09/11/2022 11:35 Potassium 4.1 mmol/L ()?? 09/11/2022 11:35 Chloride 104 mmol/L ()?? 09/11/2022 11:35 Bicarbonate Level 22 mmol/L ()?? 09/11/2022 11:35 Anion Gap 11 ()?? 09/11/2022 11:35 Glucose Level 143 mg/dL (High)?? 09/11/2022 11:35 Glucose, POC 113 mg/dL (High)?? 09/12/2022 12:55 BUN 8 mg/dL ()?? 09/11/2022 11:35 Creatinine-Blood 1.0 mg/dL ()?? 09/11/2022 11:35 Estimated GFR Creatinine 95 ML/MIN/1.73 M2 ()?? 09/11/2022 11:35 Calcium 9.0 mg/dL ()?? 09/11/2022 11:35 Protein, Total 8.6 Gm/dL (High)?? 09/11/2022 11:35 Albumin 4.1 Gm/dL ()?? 09/11/2022 11:35 AG Ratio 0.9 ()?? 09/11/2022 11:35 Alkaline Phosphatase 161 units/L (High)?? 09/11/2022 11:35 Lipase 18 units/L ()?? 09/11/2022 11:35 AST (SGOT) 28 units/L ()?? 09/11/2022 11:35 ALT (SGPT) 26 units/L ()?? 09/11/2022 11:35 Bilirubin, Total 0.3 mg/dL ()?? 09/11/2022 11:35 Lactate 1.9 mmol/L ()?? 09/11/2022 11:35 ?? COAG INR 1.3 (High)?? 09/12/2022 06:00 Protime (PT) 13.0 seconds (High)?? 09/12/2022 06:00 ?? UA/URINALYSIS Appear/Color, Urine YELLOW ()?? 09/11/2022 11:40 Specific [place], Urine 1.021 ()?? 09/11/2022 11:40 pH, Urine 7.0 ()?? 09/11/2022 11:40 Albumin, Urine 1+ (Abnormal)?? 09/11/2022 11:40 Glucose, Urine 4+ (Abnormal)?? 09/11/2022 11:40 Ketones, Urine NEGATIVE ()?? 09/11/2022 11:40 Bilirubin, Urine NEGATIVE ()?? 09/11/2022 11:40 Hemoglobin, Urine NEGATIVE ()?? 09/11/2022 11:40 Nitrite, Urine NEGATIVE ()?? 09/11/2022 11:40 Leukocyte, Urine NEGATIVE ()?? 09/11/2022 11:40 Urobilinogen NORMAL mg/dL ()?? 09/11/2022 11:40 WBC's, Urine NONE SEEN /HPF ()?? 09/11/2022 11:40 RBC's, Urine NONE SEEN /HPF ()?? 09/11/2022 11:40 Squamous Epith 1 /HPF ()?? 09/11/2022 11:40 Amorphous Crystals MODERATE /HPF ()?? 09/11/2022 11:40 Hold Urine Culture Testing available 48 hours from time of collection. ()?? 09/11/2022 11:40 ?? VIROLOGY COVID-19 POC Result NEGATIVE ()?? 09/11/2022 10:09 ? 35_ minutes spent on discharge * Wesley SIMEON, Jemima Saeed: PERFORM Event Display: Patient Education/Instruction Authored Date: Inpatient Adult Discharge Instructions [address] [address] Name: JEROME MEADOWS : 1975 Visit: 09/11/2022 09:37:00 Current Date: 09/12/2022 14:01 Account: [id number] Inpatient Adult Discharge Instructions We would like to thank you for allowing us to assist you with your healthcare needs. The following includes patient education materials and information regarding your injury/illness. Our entire staffstrives to provide an excellent experience for our patients and their families. PLEASE ENSURE YOU FOLLOW-UP PER THE INSTRUCTIONS BELOW! ?? YOUR OPINION IS IMPORTANT TO US! Please complete the survey you may receive by mail or email. Your feedback will be used to make improvements to the healthcare experiences of our patients and their families. Surveys are administered by [employer]. ?? If further treatment with your primary care physician or another doctor is recommended, it is important for you to keep the appointment. Call your primary care physician or return to the Emergency Department immediately if your condition worsens, fails to improve, or new symptoms develop. If you need to find a doctor, you can call [facility] [employer] for a referral at [phone] or toll free at [phone] ([phone]) or log in to [email or web address].. ?? You can view and manage your care through the patient portal or by using a health care moises of your choosing. [employer] is a website that allows you to securely view your medical information including your hospital discharge summary, office visit summaries, medications and follow-up visits. You can also request appointments, renew medications, and request access to your medical information using a health care moises of your choosing, or just ask a question. You can enroll at [email or web address] or register during your next office visit. You have been discharged from [facility], Patient Care Unit: D3B. If you have any questions regarding these instructions after you leave, please call us and we will be happy to assist you. [facility] Your Care Team Attending Physician Larissa Fuentes MD Discharging Providers Larissa Fuentes MD Reason for Admission dizzy and syncope per family, ? fever with ems, and inc abd distention with hx of aortic anuerysm. kinyarwanda speak mainly. Your Diagnosis Syncope DVT (deep venous thrombosis) HIV positive Abdominal pain Tests Performed Below is a partial list of the tests performed during your hospitalization. You may have had other tests and procedures not included in this list. Please discuss all test results with your provider. CBC w/ Differential Comprehensive Metabolic Panel COVID-19 RNA POC GLUCOSE POC High??Sensitivity??Troponin T HOLD BLUE TUBE?-- Results Pending -- INR Lactic Acid Level Lipase Urinalysis w/hold for Urine Culture CT Abd/Pelvis W/ IV Contrast Only CT Head/Brain W/O Contrast US Doppler Ext Lower Venous Bilat ? You will be contacted within 72 hours with your results. Primary Care Provider Thomas Bright Advance Directive Health Care Proxy on File Yes - Health Care Proxy No qualifying data available. Discharge Vitals Temperature: 98 DegF Height: 175 cm Pulse Rate: 89 bpm ?? Respiratory Rate: 18 br/min ?? Systolic Blood Pressure: 117 mm Hg ?? Diastolic Blood Pressure: 72 mm Hg ?? Oxygen Saturation: 98 % ?? Studies Pending All tests and labs ordered during this hospital stay have been completed unless listed below. Please discuss all pending results with your provider listed above in these instructions. ?? Basic Metabolic Panel CBC Hold Blue Top Tube (HOLD BLUE TUBE) INR What to do next Instructions From Your Doctor Discharge Orders Scheduled Follow-Up Appointments Sunday 2:00 PM EDT ?? With: Reuben Kessler MD Where: [facility] [address] [place] [address]- You Need to Schedule the Following Appointments Follow Up with??Thomas Bright When??Within 1 to 2 weeks Why: pl call to schedule follow up appointment Where: [address] [place] [id number]- Discharge Medications JEROME GONZALEZ :1975 Visit Date:09/11/2022 Medications: Please continue your medications until treatment is completed or stopped by your provider. Medications not listed below should be discontinued. Discuss any questions related to medications with your provider. What How Much When Instructions Next Dose New Morphine (morphine 10 mg/ 5 mL oral solution) 5 Milliliter Oral Every 6 hours as needed for for pain Duration: 5 Days Pickup at [facility]/pharmacy #[id number] Last dose given at 1025am 09/12/2022 Changed Cobicistat/ Darunavir (Prezcobix 800 mg-150 mg oral tablet) 1 tab(s) Oral Daily with food ?? take as previously prescribed Changed Enoxaparin (enoxaparin 100 mg/ mL injectable solution) 0.9 Milliliter Subcutaneous Injection Every 12 hours Duration: 30 Days Pickup at [facility]/pharmacy #[id number] tonight Changed dulaglutide (Trulicity Pen 1.5 mg/ 0.5 mL subcutaneous solution) INJECT 1 PEN INTO THE SKIN ONCE EVERY WEEK ?? take as previously prescribed Unchanged Albuterol (ProAir HFA 90 mcg/ inh inhalation aerosol) INHALE DANDO DOS SOPLIDOS CADA CUATRO HORAS CUANDO SEA NECESARIO ?? take as previously prescribed Unchanged Atorvastatin (atorvastatin 80 mg oral tablet) 1 tab(s) Oral Daily at Bedtime Duration: 30 Days take as previously prescribed Unchanged Dicyclomine (dicyclomine 20 mg oral tablet) 1 tab(s) Oral 4 times a day Duration: 10 Days take as previously prescribed Unchanged Famotidine (famotidine 20 mg oral tablet) TOME DOS TABLETAS POR VIA ORAL [place] ?? take as previously prescribed Unchanged Lacosamide (Vimpat 100 mg oral tablet) 1 tab(s) Oral Twice a day at night ?? take as previously prescribed Unchanged Levothyroxine (levothyroxine 25 mcg (0.025 mg) oral capsule) 1 capsule Oral Daily tomorrow Unchanged Ondansetron (ondansetron 4 mg oral tablet, disintegrating) TAKE ONE TABLET BY MOUTH ONCE A DAY NEEDED FOR NAUSEA AND VOMITING ?? take as previously prescribed Unchanged Pantoprazole (pantoprazole 40 mg oral delayed release tablet) 1 tab(s) Oral Daily take at a different time than famotidine ?? take as previously prescribed Unchanged Raltegravir (Isentress HD 600 mg oral tablet) 2 tab(s) Oral Daily take as previously prescribed Unchanged Tenofovir (tenofovir disoproxil fumarate 300 mg oral tablet) 1 tab(s) Oral Daily take as previously prescribed Unchanged Trazodone (traZODone 150 mg oral tablet) 1 tab(s) Oral Daily at Bedtime take as previously prescribed Pharmacy Information [facility]/pharmacy #[id number]: [address], [place] [phone] ?? What How Much When Comments Stop Taking Warfarin (warfarin 10 mg oral tablet) 1 tab(s) Oral Daily Take 10mg warfarin daily, get blood work for INR by [facility] on 2021 and follow up with Primary care doctor for dose adjustments' Stop previous warfarin 7.5mg daily ?? DISCONTINUED Stop Taking Warfarin (warfarin 10 mg oral tablet) See instructions every Sunday, Sunday, Sunday ?? DISCONTINUED Stop Taking Warfarin (warfarin 7.5 mg oral tablet) See instructions every Sunday, Sunday, , Sunday ?? DISCONTINUED Test Results Below is a partial list of the most recent Laboratory test results done prior to this discharge. You may have had other tests and procedures not included in this list. Please discuss all test resultswith your provider. CBC w/ Differential (09/11/2022) ???WBC - 4.7 k/mm3???RBC - 4.40 m/mm3???Hgb - 12.4 Gm/dL???Hct - 39.6 %???MCV - 90.0 femtoliters???MCH - 28.2 pg???MCHC - 31.3 g/dL???Platelet Count - 182 k/mm3???RDW-SD - 54.2 femtoliters???MPV - 9.7 femtoliters???Nucleated RBC (Automated) - 0.0 #/100 WBC'S???Abs. NRBC - 0.0 k/mm3???Abs. Neut - 2.4 k/mm3???Abs. Lymph - 1.8 k/mm3???Abs. [place] - 0.4 k/mm3???Abs. Eo - 0.0 k/mm3???Abs. Baso - 0.0 k/mm3???Neut % - 52.4 %???Lymph % - 37.8 %???[place] % - 8.8 %???Eos % - 0.4 %???Baso % - 0.4 %???Imm Gran- 0.2 %???Abs. Imm Gran - 0.0 k/mm3 Comprehensive Metabolic Panel (09/11/2022) ???Sodium - 137 mmol/L???Potassium - 4.1 mmol/L???Chloride - 104 mmol/L???Bicarbonate Level - 22 mmol/L???Anion Gap - 11???Glucose Level - 143 mg/dL???BUN - 8 mg/dL???Creatinine-Blood - 1.0 mg/dL???Estimated GFR Creatinine - 95 ML/MIN/1.73 M2???Calcium - 9.0 mg/dL???Protein, Total - 8.6 Gm/dL???Albumin - 4.1 Gm/dL???AG Ratio - 0.9???Alkaline Phosphatase - 161 units/L???AST (SGOT) - 28 units/L???ALT (SGPT) - 26 units/L???Bilirubin, Total - 0.3 mg/dL COVID-19 RNA POC (09/11/2022) ???COVID-19 POC Result - NEGATIVE GLUCOSE POC (09/12/2022) ???Glucose, POC - 113 mg/dL High??Sensitivity??Troponin T (09/11/2022) ???High Sensitivity Troponin (HSTnT) - 8 ng/L INR (09/12/2022) ???INR - 1.3???Protime (PT) - 13.0 seconds Lactic Acid Level (09/11/2022) ???Lactate - 1.9 mmol/L Lipase (09/11/2022) ???Lipase - 18 units/L Urinalysis w/hold for Urine Culture (09/11/2022) ???Appear/Color, Urine - YELLOW???Specific [place], Urine - 1.021???pH, Urine - 7.0???Albumin, Urine - 1+???Glucose, Urine - 4+???Ketones, Urine - NEGATIVE???Bilirubin, Urine - NEGATIVE???Hemoglobin,Urine - NEGATIVE???Nitrite, Urine - NEGATIVE???Leukocyte, Urine - NEGATIVE???Urobilinogen - NORMAL???WBC's, Urine - NONE SEEN???RBC's, Urine - NONE SEEN???Squamous Epith - 1 /HPF???Amorphous Crystals- MODERATE???Hold Urine Culture - Testing available 48 hours from time of collection. Allergies (NKA means No Known Allergies) Lobster oxyCODONE Lamictal??(Hives, itch) Percocet 7.5/325??(C/O: itching) Tegretol??(Hallucinations, aggression) Tylenol??(itching) influenza virus vaccine, inactivated traMADol Problems Active Problems??(20) AAA (abdominal aortic aneurysm)?? Abdominal pain?? Asthma?? Chest pain?? Diabetes mellitus?? Ex-smoker, quit 2016?? GERD (gastroesophageal reflux disease)?? Guillain-[place] syndrome?? Hematoma of leg?? HIV?? HIV disease?? HLD (hyperlipidemia)?? HTN (hypertension)?? Hypertension?? Hypothyroidism?? PVD (peripheral vascular disease)?? Seizure disorder?? Seizure disorder?? Sepsis?? Skin infection?? Education Materials Below is the list of Educational Leaflet Providered with your Discharge Instructions. Zones DVT?? What Is Syncope?? Valuables and Belongings I fully understand and agree that [facility] accepts no responsibility for all my personal property including clothing, toilet articles, radios, jewelry, dentures, hearing aids, rings, money, or any other property that is in my possession or is brought to me after admission. I understand certain valuables may be placed in a hospital safe for a short period of time. I understand that the hospital is not liable for loss or damage due to accident, fire, or other natural occurrence while said property is in the safe. I accept full responsibility for any personal property that I keep with me, and will not hold the hospital responsible in case of loss or disappearance. I acknowledge that i have been encouraged to send valuables and belongings home. ?? No Valuables/Belongings: No valuables/belongings present Date for Pt to Sign Valuables/Belongings: 09/12/22 10:05:00 ?? Other Discharge Information ? Pulmonary Rehab Status?? Pulmonary Rehab Discharge Status?? Respiratory Rate: 18 br/min ? Common Emergency Awareness Tips IS IT A STROKE? Act FAST and Check for these signs: FACE Does the face look uneven? ARM Does one arm drift down? SPEECH Does their speech sound strange? TIME Call at any sign of stroke ?? Heart Attack Signs Chest discomfort: Most heart attacks involve discomfort in the center of the chest and lasts more than a few minutes, or goes away and comes back. It can feel like uncomfortable pressure, squeezing, fullness or pain. Discomfort in upper body: Symptoms can include pain or discomfort in one or both arms, back, neck, jaw or stomach. Shortness of breath: With or without discomfort. Other signs: Breaking out in a cold sweat, nausea, or lightheaded. Remember, MINUTES DO MATTER. If you experience any of these heart attack warning signs, call to get immediate medical attention! ?? Smoking can increase your chances of developing chronic health problems and can cause harmful effects to other family members in your house. If you smoke, you are strongly encouraged to quit. Please call [facility] [phone] Link at [phone] or [phone] ([phone]) or log in to [email or web address] for referrals to smoking cessation programs. ?? The National Suicide Prevention Hotline is available 19/03 if you or someone you know needs to find a reason to keep living. By calling 3-667-303-Finomial (8607) you'll be connected to a skilled, trained counselor at a crisis center in your area. INPATIENT DISCHARGE INSTRUCTIONS SIGNATURE PAGE JEROME GONZALEZ Location:[facility] Registration Date and Time:09/11/2022 09:37 EST Primary Care Physician: Thomas Bright, I JEROME GONZALEZ, have received the above patient education materials/instructions and haveverbalized understanding. If ambulance or transport services are being used I further acknowledge being given a choice of service. ?? If you need to contact me, please call me at this number: . 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 386 ZONAS DE TROMBOSIS VENOSA PROFUNDA TODOS LOS D? C??mo cuidarse shane tiene trombosis venosa profunda La trombosis venosa profunda (TVP) es cuando se forma un co??gulo de jarred en shawn vena del cuerpo que impide el flujo normal de jarred en la vena . TODOS LOS D? : ??? Peters monica medicamentos de la manera indicada por de la garza m??dico. ??? Tenga consigo shawn lista de medicamentos actualizada. ??? Aseg??rese de programar shawn consulta con de la garza m??dico/enfermero en unos pocos d??as. ??? Comience un programa de ejercicios. ??? Mantenga un peso saludable. ??? Limite el consumo de juan. ??? Deje de fumar. ??? Aseg??rese de controlar si tiene jarred en la orina o en las heces. ??? Use un cepillo dental de cerdas suaves y shawn afeitadora el??ctrica para evitar los sangrados. Podr??a sangran o hacerse hematomas con m??s facilidad. ??? Levante las piernas cuando est?? sentadoo acostado. Evite estar sentado, de pie o acostado por per??odos largos sin cat swamper los pies y las pie rnas. ??? Cambie de posici??n con frecuencia y cuando pueda, intente caminar. Gower ayudar?? a aumentar el flujo sangu??david. Adem??s, use medias de contenci??n si de la garza m??dico o enfermero se lo indican. ??En qu?? asha est?? usted hoy? ??PHIL, AMARILLA o LOUISE? ASHA PHIL TODO LORI ??? Esta asha es de la garza meta Monica s??ntomas est??n bajo control cuando: ??? No tiene dolor ni inflamaci??n. ASHA AMARILLA ?? DET??NGASE Y LLAME PELIGRO - Esta asha es shawn advertencia . Si tiene cualquiera de los siguientes: ??? Adormecimiento o cosquilleo de los dedos en los brazos opiernas. ??? Se siente raro. ??? Nota hematomas que son nuevos. ??? Est?? sintiendo dolor o piña estado teniendo danny de valarie . Llame a de la garza m??dico/enfermero: ??? Tiene alguna pregunta o inquietud sobre monica medicamentos o de la garza estado . ASHA LOUISE EMERGENCIA: Hable con de la garza m??dico/enfermero de inmediato si tiene cualquiera de los siguientes: (no maneje usted mismo) ??? Los brazos o piernas se sienten tibios, est??n rojos, adoloridos, hinchados, adormecidos o con hormigueo. ??? Dolor profundo, repentino y continuo en el m??sculo. ??? Ve jarred en la orina, heceso v??rochelle. Heces negras o alquitranadas. ??? Sangrado abundante o descontrolado. ??? Dolor que empeora cuando est?? activo o cuando est?? de pie por un claudia per??odo. ??? Est?? confundido, cansado cesilia habla con claridad. ??? Tiene debilidad o no puede cat swamper el brazo o pierna de un lado de de la garza cuerpo. ??? Se siente repentinamente mareado o le falta el aliento. Tiene dolor en el pecho o dolor cuando tose. ? * Wesley SIMOEN, Jemima Saeed: PERFORM Event Display: Patient Education Leaflets Authored Date: [id number] What Is Syncope ?? [address] ??Qu?? es un s??ncope? El s??ncope tambi??n se conoce pau desmayo o ray mental. Es la p??rdida de conocimiento de forma breve y abrupta. En general, se produce por shawn disminuci??n repentina del flujo sangu??david hacia el cerebro o por falta de ox??mason en el cerebro. Los s??ncopes suelen estar seguidos por shawn recuper aci??n completa, r??pida y espont??alisha. C??mo son los cambios en la presi??n arterial y el ritmo card??aco El cerebro y el cuerpo necesitan un flujo continuo de jarred randell en ox??mason. El ritmo card??aco yla presi??n arterial se ajustan para que summer flujo sea torres marie la realizaci??n de todas las actividades. ??? El coraz??n genera se??ales el??ctricas que se desplazan por las v??as. Estas se??ales establecen el ritmo card??aco y le indican al coraz??n cu??ndo bombear jarred. ??? En respuesta a las necesidades del cuerpo, el cerebro tambi??n puede provocar cambios en la presi??n arterialy en el ritmo card??aco. En el cuerpo, hay sensores que detectan el flujo de jarred que llega al cerebro y las otras partes del cuerpo. Si estos sensores detectan un flujo de jarred bajo, env??an unase??al al cuerpo para que aumente la cantidad de jarred en los vasos sangu??neos y se incremente lafrecuencia card??carol para mejorar la circulaci??n. ??? La jarred que el coraz??n env??a al cerebro en cada contracci??n suministra ox??mason y nutrientes. ?? Se??ales de advertencia El s??ncope sucede de repente. Las siguientes son algunas de las se??ales m??s comunes: ??? visi??n borrosa, ennegrecida o visi??n de t??javier; ??? aturdimiento; ??? somnolencia; ??? latidos acelerados. Algunas personas tambi??n pueden sentir n??useas o sudoraci??n. Cristina es posible que no sienta ninguna se??al de advertencia. Despu??s de un s??ncope, la recuperaci??n es r??pida, aunque puede sentirse cansado. Evite conducir si presenta alguna se??al de desmayo. ?Es grave? El s??ncope es un problema com??n que puede tener causas muy diversas. A menudo, estas causas no son graves. Por ejemplo, el s??ncope puede producirse porque estuvo de pie demasiado tiempo o porque se sent?? demasiado r??pido. En algunos casos, la persona no vuelve a desmayarse nunca m??s. Sin embargo, el s??ncope en shawn persona con problemas card??acos puede ser shawn se??al de advertencia de problemas m??s graves. Por eso, de la garza proveedor de atenci??n m??dica puede realizarle varias pruebas para analizar de la garza ritmo card??aco y de la garza funci??n card??carol. Hable con de la garza proveedor de atenci??n m??dica si tuvo un s??ncope. En los adultos mayores, el s??ncope puede ser shawn se??al de ataque card??aco. No pierda tiempo y busque tratamiento. Incluso si la causa del s??ncope no es grave, hay riesgo de lesiones debido a las ca??lee que se pueden producir marie la p??rdida del conocimiento. Siempre que sea posible, determinar la causa dels??ncope puede reducir el riesgo de lesiones. ?? Last Reviewed Date: 2018 ?? [id number] [employer] [facility]. Todos los derechos reservados. Esta informaci??n no pretende sustituir la atenci??n m??dica profesional. S??lo de la garza m??dico puede diagnosticar y tratar un problema de rock. ?? CT Head WO contrast * Nicole MG , Arel: VERIFY Nicole MG , Arel: VERIFY Event Display: Result: Authored Date: [id number] CT Head/Brain W/O Contrast INDICATION: Hx of Present Illness: Pt here with multiple complaints. Dizziness with syncopal episode today. Abd pain that has been going on for 3 days. And chronic bilateral leg pain; Reason: Trauma;Clinical Question(s): Hematoma TECHNIQUE: Noncontrast head CT using axial technique and reconstructed in axial and coronal planes.Iterative reconstruction techniques are used to optimize dose and image quality. COMPARISON: August 02, 2022 FINDINGS: Patient Attendant view findings, lines and tubes: None. BRAIN AND EXTRA-AXIAL SPACES: No parenchymal hemorrhage, midline shift, or mass effect. Suazo-white matter differentiation is wellpreserved. No acute infarct. Ventricles, sulci, and basilar cisterns are normal. No white matter lesions. No subarachnoid hemorrhage. No subdural or epidural collection. CALVARIUM, SKULL BASE, AND SOFT TISSUES: No fractures or suspicious bony lesions. The paranasal sinuses and mastoid air cells are clear. Visualized orbits and globes are intact. The extracranial soft tissues are unremarkable. IMPRESSION: No acute intracranial pathology. No significant change prior examination. WSN: [id number] Ordering Physician: Zac White Dictated By: Jamir Rivera MD Dictated Date/Time: 09/11/22 2:46 pm Reviewed By: Jamir Rivera MD Signed By: Jamir Rivera MD Signed Date/Time: 09/11/22 2:46 pm Transcribed By: LOGAN Transcribed Date/Time: 09/11/22 2:39 pm US.doppler Lower extremity vein - bilateral * [facility] , CIS S: TRANSCRIBE Fletcher Almonte MD: VERIFY Event Display: Result: Authored Date: [id number] US Doppler Ext Lower Venous Bilat Hx of Present Illness: Patient is on warfarin. Pt here with multiple complaints. Dizziness with syncopal episode today. Abd pain that has been going on for 3 days. And chronic bilateral leg pain; Reason: Other:; Pain in limb; Clinical Question(s): Thrombosis; Order Comment: 09 11 2022 14:49:28 EST per rn, doing u s guide iv. need 15-20 minutes. COMPARISON: None IMAGING TECHNIQUE: Ultrasound of the veins from the groin through the calf was performed using grayscale, color, and spectral Doppler ultrasound assessing for complete compressibility and normal flowcharacteristics. FINDINGS: RIGHT LOWER EXTREMITY: Common femoral vein: Patent. No thrombosis. Femoral vein: Patent. No thrombosis. Popliteal vein: Patent. No thrombosis. Gastrocnemius veins: The visualized portions are patent without evidence of thrombosis. Peroneal veins: The visualized portions are patent without evidence of thrombosis. Posterior tibial veins: The visualized portions are patent without evidence of thrombosis. LEFT LOWER EXTREMITY: Common femoral vein: Patent. No thrombosis. Femoral vein: There is a 1.9 cm length nonocclusive thrombus within the mid left femoral vein. Popliteal vein: There is a 6.1 cm length nonocclusive thrombus in the left popliteal vein. Gastrocnemius veins: The visualized portions are patent without evidence of thrombosis. Peroneal veins: The visualized portions are patent without evidence of thrombosis. Posterior tibial veins: The visualized portions are patent without evidence of thrombosis. OTHER FINDINGS: Slow flow noted in bilateral lower extremities in the calf veins. There is questionof a pseudoaneurysm associated with the right popliteal artery which measures up to 5 cm in length. IMPRESSION: Study is positive for DVT in the left lower extremity with nonocclusive thrombus visualized in the left femoral and popliteal veins extending along approximately 8.2 cm length. Slow flow is noted in both calf veins. Incidental 5 cm pseudoaneurysm of the right popliteal artery which shows no color Doppler uptake suggesting it is thrombosed. A critical result message (Pike) has been communicated via the [employer] system on 09/11/2022 4:56 PM, Message ID [id number]. WSN: [id number] Ordering Physician: Zac White Dictated By: Fletcher Almonte MD Dictated Date/Time: 09/11/22 4:56 pm Reviewed By: Fletcher Almonte MD Signed By: Fletcher Almonte MD Signed Date/Time: 09/11/22 4:56 pm Transcribed By: LOGAN Transcribed Date/Time: 09/11/22 4:[address] Abdomen and Pelvis W contrast IV * [facility] , CANDACE S: TRANSCRIBE Dada Paiz MD S: VERIFY Event Display: Result: Authored Date: [id number] CT Abd/Pelvis W/ IV Contrast Only Hx of Present Illness: Pt here with multiple complaints. Dizziness with syncopal episode today. Abdpain that has been going on for 3 days. And chronic bilateral leg pain; Reason: Other:; LLQ abdominal pain; Clinical Question(s): Abscess; Order Comment: Patient unable to tolerate PO contrast. TECHNIQUE: Spiral CT through the abdomen and pelvis with IV contrast formatted in 3 planes. 100 cc of Omnipaque 300 was administered intravenously. This study was performed without oral contrast. Weight-based protocol using automatic tube modulation was used to optimize exposure parameters. COMPARISON: None. FINDINGS: Patient Attendant View Findings, Lines and Tubes: None. Visualized Chest: Lung bases are clear. No pleural effusion. The heart is normal in size. No pericardial effusion. Diaphragm: Normal. Liver: Normal. Gallbladder: Absent consistent with prior cholecystectomy. Bile ducts: No biliary ductal dilation. Spleen: Calcified granulomata in the spleen. No acute abnormality. Pancreas: Normal. Adrenal glands: Normal. Kidneys and ureters: No hydronephrosis, stones, or suspicious masses. Bladder: Diffuse bladder wall thickening. Reproductive organs: Unremarkable. Stomach, small bowel, and large bowel: No acute abnormality in the small or large bowel. Stomach appears unremarkable. Appendix: Surgical clips seen in the right lower quadrant suggesting previous appendectomy. No evidence of appendicitis. Peritoneum and retroperitoneum: No ascites or pneumoperitoneum. No omental or mesenteric lesions. Lymph nodes: No enlarged lymph nodes. Blood vessels: Bifurcated stent graft noted. No acute abnormality. No evidence of venous thrombosis. Abdominal and pelvic wall: Unremarkable. Bones: No acute abnormality. IMPRESSION: Diffuse bladder wall thickening. Possible cystitis. No other acute abnormality identified. WSN: [id number] Ordering Physician: Zac White Dictated By: Dada Paiz MD Dictated Date/Time: 09/11/22 5:41 pm Reviewed By: Dada Paiz MD Signed By: Dada Paiz MD Signed Date/Time: 09/11/22 5:41 pm Transcribed By: LOGAN Transcribed Date/Time: 09/11/22 5:37 pm Patient Care team information Care Team Personnel Name: Joaquina Jerome RN Position: S RN Member Role: Primary Care Nurse Name: Joselyn Sevilla RN Position: S RN Member Role: Primary Care Nurse Name: Thomas Bright Position: [facility] Outreach Member Role: PCP Address: Address: [address] [place] [address]- [place] Name: Karmen Mandujano RN Position: [facility] Rad RN Member Role: Primary Care Nurse Name: Margie Castanon RN Position: [facility] RN Member Role: Primary Care Nurse Name: Susy Castaneda RN Position: [facility] RN Member Role: Primary Care Nurse Name: Justin Dailey MD Position: [facility] Infectious Disease MD Member Role: Lifetime Consulting Physician Address: Address: [address] [place] [address] [place] [address]- Name: Sophia Bell RN Position: [facility] ED RN W/OE and Tasks Member Role: Primary Care Nurse Name: Veronica Davila RN Position: [facility] RN Member Role: Primary Care Nurse Name: Melva Herndon RN Position: [facility] RN Member Role: Primary Care Nurse Name: Karena Penaloza RN Position: [facility] RN Member Role: Primary Care Nurse Name: Fang [place] RN Position: [facility] Car Refinisher Member Role: Primary Care Nurse Name: Karri Jaramillo RN Position: [facility] RN Member Role: Primary Care Nurse Name: Consuelo Alvarenga RN Position: [facility] RN Member Role: Primary Care Nurse Name: Veronica Blanco RN Position: [facility] DANIELLEO RN Member Role: Primary Care Nurse Name: Ramsey Perez RN Position: [facility] RN Member Role: Primary Care Nurse Name: Lazaro Huffman RN Position: [facility] RN Member Role: Primary Care Nurse Name: Jacquelyn Juarez Position: [facility] RN Member Role: Primary Care Nurse Name: Jacquelyn Ramsey RN Position: [facility] RN Member Role: Primary Care Nurse Name: Jennifer Ghosh RN Position: [facility] RN Member Role: Primary Care Nurse Name: Qiana Mansfield RN Position: [facility] RN Member Role: Primary Care Nurse Name: Chuyita Ashley RN Position: [facility] RN Member Role: Primary Care Nurse Name: Elle Blackwood RN Position: [facility] Car Refinisher Member Role: Primary Care Nurse Name: Yamilex Arteaga RN Position: [facility] RN Member Role: Primary Care Nurse Name: Skip Harry RN Position: [facility] RN Member Role: Primary Care Nurse Name: Valentine Perrin RN Position: [facility] RN Member Role: Primary Care Nurse Name: Mark Howell RN Position: [facility] ED RN W/OE and Tasks Member Role: Primary Care Nurse Name: Elaine Webb RN Position: [facility] RN Member Role: Primary Care Nurse Name: Stephanie Houser RN Position: [facility] RN Member Role: Primary Care Nurse Name: Amber Gu RN Position: [facility] RN Member Role: Primary Care Nurse Name: Reji Zimmerman Jr Position: [facility] ED RN W/OE and Tasks Member Role: Primary Care Nurse Name: Dang Padilla RN Position: [facility] RN Member Role: Primary Care Nurse Name: Scot Anderson RN Position: [facility] RN Member Role: Primary Care Nurse Name: Luz Marina Byrd RN Position: [facility] RN Member Role: Primary Care Nurse Name: Joelle Sandoval RN Position: [facility] RN Member Role: Primary Care Nurse Name: Gideon Diaz RN Position: [facility] RN Member Role: Primary Care Nurse Name: Diana Anderson RN Position: [facility] RN Member Role: Primary Care Nurse Name: Thomas Betancur RN Position: [facility] [facility] RN Member Role: Primary Care Nurse Name: Vee Mcnamara RN Position: [facility] Car Refinisher Member Role: Primary Care Nurse Name: Nisreen Greenberg RN [facility]: [facility] Outreach Member Role: Primary Care Nurse Name: Lanny Bolton RN Position: [facility] RN Member Role: Primary Care Nurse Name: Anthony aCrolina RN Position: [facility] RN Member Role: Primary Care Nurse Name: Ana Dupont RN Position: [facility] RN Member Role: Primary Care Nurse Name: Alyssia Durbin RN Position: [facility] RN Member Role: Primary Care Nurse Name: Afshan Galeano RN Position: [facility] RN Member Role: Primary Care Nurse Name: Reji Bright RN Position: [facility] RN Member Role: Primary Care Nurse Name: Estefanía Austin RN Position: [facility] RN Member Role: Primary Care Nurse Name: Sarah Carson RN Position: [facility] RN Member Role: Primary Care Nurse Name: Amira Hughes RN Position: [facility] RN Member Role: Primary Care Nurse Name: Rina Dunlap LPN Position: [facility] RN Member Role: Primary Care Nurse Name: Chiquis Callejas RN Position: [facility] Onco RN Member Role: Primary Care Nurse Name: Linda Rajput RN, I Position: [facility] RN Member Role: Primary Care Nurse [facility] Attending Position[facility] ED Medicine MD Name: Brenda Alvarez RN Position: [facility] ED RN W/OE and Tasks Member Role: Patient Care Provider Name: Leah Cortez MD Position: [facility] Resident Member Role: ED Resident Address: Address: [address] [place] [address]- Name: Vicki Joyner Position: [facility] ED TA [facility] Member Role: Career Specialist Care Team Related Persons Name: MEADOWSSUSY Cheng Address: home [address] [place] [address] Name: YOANDY TAYLOR Address: home [address] [address]
--- OUTSIDE RECORDS SUMMARY | 2023-02-21 14:46 | XMS_ITS | Continuity of Care Document ---
Author Name Unknown Organization [facility] Address [address] [place] [address]- Care Team Providers Care Physician Name Role Phone Thomas Bright Primary Care Physician [place] [facility] [place]/20 [facility] [address] [place], [place] [address] Attending Physician: Anselmo Mendieta MD Admitting Physician: Anselmo Mendieta MD Referring Physician: Anselmo Mendieta MD Allergies, Adverse Reactions, Alerts Substance Reaction Severity Status Lamictal Hives, itch Active Tegretol Hallucinations, aggression A ctive Tylenol itching Active Lobster Persistent Severe Active Percocet 7.5/325 1 C/O: itching Active influenza virus vaccine, inactivated 2 Active traMADol Active oxyCODONE Persistent Mild Active 1makes pt itchy 2Hx of Guillain - [place] Immunizations Given and Recorded Vaccine Date Status Refusal Reason pneumococcal 23-valent vaccine 02/03/17 Given Not Given Vaccine Date Status Refusal Reason pneumococcal 23-valent vaccine 01/25/17 Not Given Patient Refuses Medications aspirin 81 mg oral delayed release tablet See Instructions, ALY [place]BB [place], # 30 tablet, 1 Refills, Maintenance, [id number], 175, cm, 02/26/20 14:11:00 EDT, Height, 87.5, kg, 02/26/20 14:11:00 EDT, Dry Weight Start Date: 04/12/20 Status: Ordered atorvastatin 80 mg oral tablet 1 tablet = 80 mg, By Mouth, Daily, # 30 tablet, 0 Refills, Maintenance, Tablet, Route to Pharmacy Electronically, [id number], [facility] Start Date: 04/02/18 Stop [...] EDT, Supply Start Date: 04/06/20 Status: Ordered famotidine 20 mg oral tablet [...] 0 Refills, Maintenance, 06/21/20 19:42:00 EDT, Tablet, [facility]/pharmacy #[id number], 175, cm, 06/17/20 8:54:00 EDT, Height, [...] ant GERD (gastroesophageal reflu x disease)(Confirmed) Active 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
--- OUTSIDE RECORDS SUMMARY | 2023-02-21 14:46 | XMS_ITS | Continuity of Care Document ---
Author Name Unknown Organization [facility] Address [address] [place] [address]- Care Team Providers Care Service Unit Operator Name Role Phone Thomas Bright Primary Care Physician [place] [facility] [place]20 - 02/21/20 [facility] [address] [place] [address]- [facility] Attending Physician: Román Adams Admitting Physician: Admtr, Román Referring Physician: Admtr, ArAshly Allergies, Adverse Reactions, Alerts Substance Reaction Severity Status Lamictal Hives, itch Active Tegretol Hallucinations, aggression A ctive Tylenol itching Active Lobster Persistent Severe Active Percocet 7.5/325 1 C/O: itching Active influenza virus vaccine, inactivated 2 Active traMADol Active oxyCODONE Persistent Mild Active 1makes pt itchy 2Hx of Guillain - [place] Immunizations Given and Recorded Vaccine Date Status Refusal Reason pneumococcal 23-valent vaccine 02/03/17 Given Not Given Vaccine Date Status Refusal Reason pneumococcal 23-valent vaccine 01/25/17 Not Given Patient Refuses Medications atorvastatin 80 mg oral tablet 1 tablet = 80 mg, By Mouth, Daily, # 30 tablet, 0 Refills, Maintenance, Tablet, Route to Pharmacy Electronically, [id number], [facility] Start Date: 04/02/18 Stop Date: 05/02/18 Status: Ordered famotidine 20 mg oral tablet 20 mg, 1, tablet, By Mouth, Daily, # 30 tablet, Refills 0, Tot. Refills 0, Maintenance, 01/12/20 22:53:00 EDT, Route to Pharmacy Electronically, [facility]/pharmacy #[id number], 175, cm, 01/12/20 17:28:00 EDT, Height, 87.5, kg, 01/12/20 17:28:00 EDT, Dry Weight Start Date: 01/12/20 Status: Ordered glyBURIDE 2.5 mg oral tablet [...] 11:31:18 EDT Start Date: 12/03/17 Status: Ordered ondansetron 4 mg oral tablet, disintegrating 1 tablet = 4 mg, By Mouth, Every 8 hours, PRN as needed for nausea/vomiting, # 9 tablet, 0 Refills,Maintenance, 10/14/19 23:05:00 EST, DIS Tablet, [facility]/pharmacy #[id number], 175, cm, 09/12/19 10:20:00 EST,Height, 86, kg, 09/04/19 11:50:00 EST, Dry Weight Start Date: 10/14/19 Stop Date: 10/17/19 Status: Ordered pantoprazole 40 mg oral delayed release tablet 1 tablet = 40 mg, By Mouth, Daily, # 30 tablet, 2 Refills, Maintenance, 11/18/19 14:13:00 EDT, EC Tablet, 175, cm, 11/18/19 13:05:00 EDT, Height, 86, kg, 09/04/19 11:50:00 EST, Dry Weight Start Date: 11/18/19 Status: Ordered Pradaxa 150 mg oral capsule [...] ant GERD (gastroesophageal reflu x disease)(Confirmed) Active 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
--- OUTSIDE RECORDS SUMMARY | 2023-02-21 14:46 | XMS_ITS | Continuity of Care Document ---
Author Name Unknown Organization [facility] Address [address] [place] [address]- Care Team Providers Care Wool Handler Name Role Phone Thomas Bright Primary Care Physician En[place] [facility] [place] Date(s): 12/21/21 - 01/20/22 [facility] [address], [place] [address] Allergies, Adverse Reactions, Alerts Substance Reaction Severity Status Lamictal Hives, itch Active Tegretol Hallucinations, aggression A ctive Percocet 7.5/325 1 C/O: itching Active influenza virus vaccine, inactivated 2 Active oxyCODONE Persistent Mild Active Tylenol itching Active Lobster Persistent Severe Active traMADol Active 1makes pt itchy 2Hx of Guillain - [place] Immunizations Given and Recorded Vaccine Date Status Refusal Reason pneumococcal 23-valent vaccine 02/03/17 Given Not Given Vaccine Date Status Refusal Reason pneumococcal 23-valent vaccine 01/25/17 Not Given Patient Refuses Medications atorvastatin 80 mg oral tablet 1 tablet = 80 mg, By Mouth, Daily, # 30 tablet, 0 Refills, Maintenance, Tablet, Route to Pharmacy Electronically, [id number], [facility] 3 Start Date: 04/02/18 Stop [...] opioid drug. 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
--- OUTSIDE RECORDS SUMMARY | 2023-02-21 14:46 | XMS_ITS | Continuity of Care Document ---
Author Name Unknown Organization [facility] Address [address] [place] [address]- Care Team Providers Care Molded Frames Assembler Name Role Phone Thomas Bright Primary Care Physician Encounter [facility] [place] Date(s): 06/02/20 - 09/30/20 [facility] [address] [place], [place] [address] Attending Physician: Anselmo Mendieta MD Admitting Physician: [...] 1makes pt itchy 2Hx of Guillain - [place] Immunizations Given and Recorded Vaccine Date Status Refusal Reason pneumococcal 23-valent vaccine 02/03/17 Given Not Given Vaccine Date Status Refusal Reason pneumococcal 23-valent vaccine 01/25/17 Not Given Patient Refuses Medications aspirin 81 mg oral delayed release tablet See Instructions, ALY WEBB [place]OS [place], # 30 tablet, 1 Refills, Maintenance, [id number], 175, cm, 02/26/20 14:11:00 EDT, Height, 87.5, kg, 02/26/20 14:11:00 EDT, Dry Weight Start Date: 04/12/20 Status: Ordered atorvastatin 80 mg oral tablet 1 tablet = 80 mg, By Mouth, Daily, # 30 tablet, 0 Refills, Maintenance, Tablet, Route to Pharmacy Electronically, [id number], [facility] 3 Start Date: 04/02/18 Stop [...] 0 Refills, Maintenance, 06/21/20 19:42:00 EDT, Tablet, [facility]/pharmacy #[id number], 175, cm, 06/17/20 8:54:00 EDT, Height, [...] ant GERD (gastroesophageal reflu x disease)(Confirmed) Active 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
--- OUTSIDE RECORDS SUMMARY | 2023-02-21 14:46 | XMS_ITS | Continuity of Care Document ---
Author Name Unknown Organization [facility] ter Address [address] [place] [address]- Care Team Providers Care Poultry Cutter Name Role Phone Thomas Bright Primary Care Physician En[place] [facility] [place] Date(s): 05/05/20 - 05/05/[address] [address]- [facility] Discharge Disposition: A-D/C Walkout Attending Physician: Not on Staff, Attending MD Admitting Physician: Not on Staff, Admitting MD Referring Physician: Not on Staff, Referring MD Allergies, Adverse Reactions, Alerts Substance Reaction Severity Status Lamictal Hives, itch Active Tegretol Hallucinations, aggression A ctive Tylenol itching Active Lobster Persistent Severe Active Percocet 7.5/325 1 C/O: itching Active influenza virus vaccine, inactivated 2 Active traMADol Active oxyCODONE Persistent Mild Active 1makes pt itchy 2Hx of Guillain - [place] Immunizations Given and Recorded Vaccine Date Status Refusal Reason pneumococcal 23-valent vaccine 02/03/17 Given Not Given Vaccine Date Status Refusal Reason pneumococcal 23-valent vaccine 01/25/17 Not Given Patient Refuses Medications aspirin 81 mg oral delayed release tablet See Instructions, ALY [place], # 30 tablet, 1 Refills, Maintenance, [facility], 175, cm, 02/26/20 14:11:00 EDT, Height, 87.5, kg, 02/26/20 14:11:00 EDT, Dry Weight Start Date: 04/12/20 Status: Ordered atorvastatin 80 mg oral tablet 1 tablet = 80 mg, By Mouth, Daily, # 30 tablet, 0 Refills, Maintenance, Tablet, Route to Pharmacy Electronically, [id number], [facility] Start Date: 04/02/18 Stop Date: 05/02/18 [...] 01/12/20 22:53:00 EDT, Route to Pharmacy Electronically, [facility]/pharmacy #[id number], 175, cm, 01/12/20 17:28:00 EDT, Height, 87.5, [...] Date: 04/02/18 Stop Date: 09/29/18 Status: Ordered omeprazole 20 mg oral delayed release tablet 1 tablet = 20 mg, By Mouth, Daily, # 30 tablet, 3 Refills, Maintenance, 12/03/17 11:31:18 EDT Start Date: 12/03/17 Status: Ordered ondansetron 4 mg oral tablet, disintegrating 1 tablet = 4 mg, By Mouth, Every 8 hours, PRN as needed for nausea/vomiting, # 9 tablet, 0 Refills,Maintenance, 10/14/19 23:05:00 EST, DIS Tablet, [facility]/pharmacy #[id number], 175, cm, 09/12/19 10:20:00 EST,Height, 86, [...] Dry Weight Start Date: 04/07/20 Status: Ordered Pradaxa 150 mg oral capsule [...] ant GERD (gastroesophageal reflu x disease)(Confirmed) Active 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 Hematoma of leg(Confirmed) Active HIV disease(Confirmed) 2002 Active Hypercholesterolemia(Confirmed) 2006 Active HLD (hyperlipidemia)(Confirmed) Active HTN (hypertension)(Confirmed) Active Hypothyroidism(Confirmed) Active Skin infection(Confirmed) Active PVD (peripheral vascular disease)(Confirmed) Active 1sequelae, left sided weakness Vital Signs Most recent to oldest [Reference Range]: 1 2 3 Oxygen Saturation [94-100 %] 100 % (05/05/20 6:57 PM) 100 % (05/05/20 3:49 PM) 98 % (05/05/20 3:45 PM) Pulse Rate [55-90 bpm] 91 bpm *H* (05/05/20 6:57 PM) 78 bpm (05/05/20 3:49 PM) 79 bpm (05/05/20 3:45 PM) Blood Pressure [90-138/55-84 mm Hg] 140/89mm Hg *H* (05/05/20 6:57 PM) 125/79mm Hg (05/05/20 3:49 PM) Respiratory Rate [16-30 br/min] 18 br/min (05/05/20 6:57 PM) 18 br/min (05/05/20 3:49 PM) 16 br/min (05/05/20 3:45 PM) Temperature [96.8-100.4 DegF] 97.8 DegF (05/05/20 3:49 PM) Mode of Delivery (Oxygen) Room air (05/05/20 6:57 PM) Room air (05/05/20 3:49 PM) Room air (05/05/20 3:45 PM) Blood pressure sites Arm, right (05/05/20 6:57 PM) Arm, right (05/05/20 3:49 PM) Temperature Route Oral (05/05/20 3:49 PM) Social History Social History Type Response Smoking Status Former smoker; Tobac co user in household: No; Type: Cigarettes; Other: quit in july 2016; Tobacco use times per day: half pack per day; Started at age: 11; entered on: 05/29/18 Sex
--- OUTSIDE RECORDS SUMMARY | 2023-02-21 14:46 | XMS_ITS | Continuity of Care Document ---
Author Name Unknown Organization [facility] ter Address [address] [place] [address]- Care Team Providers Care Fish Hatchery Man Name Role Phone Thomas Bright Primary Care Physician [phone] [place] [facility] [place]04[place] - 09/04/[address] [address]- [facility] Encounter Diagnosis Leg pain(Final) - 09/04/19 Discharge Disposition: A-D/C Home Attending Physician: Lauri Tellez MD Admitting Physician: Lauri Tellez MD Referring Physician: Not on Staff, Referring MD Allergies, Adverse Reactions, Alerts Substance Reaction Severity Status Lamictal Hives, itch Active Tegretol Hallucinations, aggression A ctive Tylenol itching Active Lobster Persistent Severe Active Percocet 7.5/325 1 C/O: itching Active influenza virus vaccine, inactivated 2 Active traMADol Active oxyCODONE Persistent Mild Active 1makes pt itchy 2Hx of Guillain - [place] Immunizations Given and Recorded Vaccine Date Status Refusal Reason pneumococcal 23-valent vaccine 02/03/17 Given Not Given Vaccine Date Status Refusal Reason pneumococcal 23-valent vaccine 01/25/17 Not Given Patient Refuses Medications atorvastatin 80 mg oral tablet 1 tablet = 80 mg, By Mouth, Daily, # 30 tablet, 0 Refills, Maintenance, Tablet, Route to Pharmacy Electronically, [id number], [facility] Start Date: 04/02/18 Stop Date: 05/02/18 Status: Ordered Carafate 1 gm oral tablet 1 Gm, 1, tablet, By Mouth, 4 times a day, # 120 tablet, Refills 0, Tot. Refills 0, Maintenance, 08/15/19 15:23:00 EST, Route to Pharmacy Electronically, [facility]/pharmacy #[id number], 175, cm, 06/25/19 13:54:00EDT, Height, 85, kg, 07/30/19 17:26:00 EST, Dry Weight Start Date: 08/15/19 Stop Date: 09/14/19 Status: Ordered glyBURIDE 2.5 mg oral tablet [...] Date: 04/02/18 Stop Date: 09/29/18 Status: Ordered Lidoderm 5% film 1 patch, Topically, Daily, PRN Pain , Moderate, remove patches after 12 hours, # 30 patch, 0 Refills, Maintenance, 03/05/19 15:22:27 EDT Start Date: 03/05/19 Stop Date: 04/04/19 Status: Ordered metFORMIN 500 mg oral tablet 1 tablet = 500 mg, By Mouth, Daily, with meals, # 30 tablet, 0 Refills, Maintenance, 12/23/18 19:29:24 EDT, Tablet Start Date: 12/23/18 Status: Ordered morphine 15 mg oral tablet, immediate release 1 tablet = 15 mg, By Mouth, Every 4 hours, PRN for pain, for 3 days, # 12 tablet, 0 Refills, Acute 09/07/19 19:11:00 EST, 09/04/19 19:11:00 EST, Tablet, [facility]/pharmacy #[id number], Partial fill upon patient request, 175, cm, 09/04/19 15:45:00 EST, Height, 86,... 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 Hematoma of leg(Confirmed) Active HIV disease(Confirmed) 2002 Active Hypercholesterolemia(Confirmed) 2006 Active HLD (hyperlipidemia)(Confirmed) Active HTN (hypertension)(Confirmed) Active Hypothyroidism(Confirmed) Active Skin infection(Confirmed) Active PVD (peripheral vascular disease)(Confirmed) Active 1sequelae, left sided weakness Results Radiology Reports * Exam Date Time Procedure Performing Provider Status 09/04/19 2:51 PM Chest 2 Views Frontal and Lat Jennifer Panda; Auth (Verified) Notes: (Chest 2 Views Frontal and Lat) Reason For Exam: Shortness of Breath, Fever;Other: RESULT: Chest 2 Views Frontal and Lat Chest 2 Views Frontal and Lat Refer to EMR; Reason: Other:; Shortness of Breath, Fever; Clinical Question(s): Pneumonia COMPARISON: 08/25/2019 07/08/2019 FINDINGS: LINES AND TUBES: None. LUNGS AND PLEURA: Clear lungs. Normal pulmonary vascularity. No pleural effusion. No pneumothorax. HEART, MEDIASTINUM AND [place]: Heart is normal in size. Normal mediastinal and hilar contour. BONES AND SOFT TISSUES: No acute abnormality. Chronic left rib deformity. Cholecystectomy clips. Aortic stent graft. IMPRESSION: No acute abnormality. WSN: [id number] Dictated By: Alejandro Ellis DO Dictated Date/Time: 09/04/19 2:53 pm Reviewed By: Alejandro Ellis DO Signed By: Alejandro Ellis DO Signed Date/Time: 09/04/19 2:53 pm Transcribed By: LOGAN Transcribed Date/Time: 09/04/19 2:52 pm Vital Signs Most recent to oldest [Reference Range]: 1 2 3 Height 175 cm (09/04/19 3:45 PM) 175 cm (09/04/19 11:50 AM) Weight 86 kg (09/04/19 11:50 AM) Oxygen Saturation [94-100 %] 97 % (09/04/19 3:45 PM) 100 % (09/04/19 11:50 AM) 99 % (09/04/19 9:30 AM) Pulse Rate [55-90 bpm] 78 bpm (09/04/19 3:45 PM) 94 bpm *H* (09/04/19 11:50 AM) 93 bpm *H* (09/04/19 9:30 AM) Blood Pressure [90-138/55-84 mm Hg] 104/59mm Hg (09/04/19 3:45 PM) 125/90mm Hg (09/04/19 11:50 AM) 119/69mm Hg (09/04/19 9:30 AM) Respiratory Rate [16-30 br/min] 18 br/min (09/04/19 5:32 PM) 12 br/min *L* (09/04/19 3:45 PM) 18 br/min (09/04/19 3:29 PM) Temperature [96.8-100.4 DegF] 97.9 DegF (09/04/19 3:45 PM) 98.3 DegF (09/04/19 9:30 AM) Liters per Minute 0 L/min (09/04/19 3:45 PM) Mode of Delivery (Oxygen) Room air (09/04/19 3:45 PM) Room air (09/04/19 11:50 AM) Room air (09/04/19 9:30 AM) Blood pressure sites Arm, right (09/04/19 3:45 PM) Arm, left (09/04/19 11:50 AM) Arm, right (09/04/19 9:30 AM) Temperature Route Oral (09/04/19 3:45 PM) Oral (09/04/19 11:50 AM) Oral (09/04/19 9:30 AM) Dry Weight 86 kg (09/04/19 11:50 AM) Weight Obtained Via Patient/family state d (09/04/19 11:50 AM) Dry Weight Obtained Via Patient/family s tated (09/04/19 11:50 AM) Social History Social History Type Response Smoking Status Former smoker; Tobac co user in household: No; Type: Cigarettes; Other: quit in july 2016; Tobacco use times per day: half pack per day; Started at age: 11; entered on: 05/29/18 Sex
--- OUTSIDE RECORDS SUMMARY | 2023-02-21 14:46 | XMS_ITS | Continuity of Care Document ---
Author Name Unknown Organization [facility] Address [address] [place] [address]- Care Team Providers Care Religious Leader Name Role Phone Thomas Bright Primary Care Physician [place] [facility] [place] 10/[place]20 [facility] [address] [place], [place] [address] Attending Physician: Anselmo Mendieta MD Admitting Physician: Anselmo Mendieta MD Allergies, Adverse Reactions, Alerts Substance Reaction Severity Status Lamictal Hives, itch Active Tegretol Hallucinations, aggression A ctive Tylenol itching Active Lobster Persistent Severe Active Percocet 7.5/325 1 C/O: itching Active influenza virus vaccine, inactivated 2 Active traMADol Active oxyCODONE Persistent Mild Active 1makes pt itchy 2Hx of Guillain - [place] Immunizations Given and Recorded Vaccine Date Status Refusal Reason pneumococcal 23-valent vaccine 02/03/17 Given Not Given Vaccine Date Status Refusal Reason pneumococcal 23-valent vaccine 01/25/17 Not Given Patient Refuses Medications aspirin 81 mg oral delayed release tablet See Instructions, ALY WEBB [place]OS [place], # 30 tablet, 1 Refills, Maintenance, [id number], 175, cm, 02/26/20 14:11:00 EDT, Height, 87.5, kg, 02/26/20 14:11:00 EDT, Dry Weight Start Date: 04/12/20 Status: Ordered atorvastatin 80 mg oral tablet 1 tablet = 80 mg, By Mouth, Daily, # 30 tablet, 0 Refills, Maintenance, Tablet, Route to Pharmacy Electronically, [id number], [facility] Start Date: 04/02/18 Stop [...] 0 Refills, Maintenance, 06/21/20 19:42:00 EDT, Tablet, [facility]/pharmacy #[id number], 175, cm, 06/17/20 8:54:00 EDT, Height, [...] ant GERD (gastroesophageal reflu x disease)(Confirmed) Active 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
--- OUTSIDE RECORDS SUMMARY | 2023-02-21 14:46 | XMS_ITS | Continuity of Care Document ---
Author Name Unknown Organization [facility] Address [address] [place] [address]- Care Team Providers Care Parker Name Role Phone Thomas Bright Primary Care Physician [place] [facility] [place] Date(s): 04/10/22 - 04/11/[address] [address]- Discharge Disposition: A-D/C AMA Attending Physician: Becka Vega MD Admitting Physician: Becka Vega MD Referring Physician: Not on Staff, Referring MD Allergies, Adverse Reactions, Alerts Substance Reaction Severity Status Lamictal Hives, itch Active Tegretol Hallucinations, aggression A ctive Tylenol itching Active Percocet 7.5/325 1 C/O: itching Active oxyCODONE Persistent Mild Active Lobster Persistent Severe Active influenza virus vaccine, inactivated 2 Active traMADol Active 1makes pt itchy 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 of Guillain - [place] Immunizations Given and Recorded Vaccine Date Status Refusal Reason pneumococcal 23-valent vaccine 02/03/17 Given Not Given Vaccine Date Status Refusal Reason pneumococcal 23-valent vaccine 01/25/17 Not Given Patient Refuses Medications atorvastatin 80 mg oral tablet 1 tablet = 80 mg, By Mouth, Daily, # 30 tablet, 0 Refills, Maintenance, Tablet, Route to Pharmacy Electronically, [id number], [facility] Start Date: 04/02/18 Stop [...] Moderate, and SBP greater than 100, Routine, 04/10/22 20:36:00 EDT, Stop date Limited # of times Start Date: 04/10/22 Stop Date: 04/11/22 Status: Completed ondansetron 4 mg oral tablet, disintegrating 1 tablet = 4 mg, By Mouth, Every 8 hours, PRN as needed for nausea/vomiting, # 10 tablet, 0 Refills, Maintenance, 10/15/21 21:12:00 EST, DIS Tablet, [facility]/pharmacy #[id number], Partial fill upon patient request if the [...] Active GERD (gastroesophageal reflu x disease)(Confirmed) Active 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 Hematoma of leg(Confirmed) Active HIV disease(Confirmed) 2002 Active HLD (hyperlipidemia)(Confirmed) Active HTN (hypertension)(Confirmed) Active Hypothyroidism(Confirmed) Active Skin infection(Confirmed) Active PVD (peripheral vascular disease)(Confirmed) Active 1sequelae, left sided weakness Vital Signs Most recent to oldest [Reference Range]: 1 2 3 Height 175 cm (04/10/22 1:18 PM) 175 cm (04/10/22 10:52 AM) Weight 83 kg (04/10/22 1:18 PM) 83 kg (04/10/22 10:52 AM) Oxygen Saturation [94-100 %] 100 % (04/11/22 1:51 AM) 100 % (04/11/22 12:38 AM) 100 % (04/11/22 12:08 AM) Pulse Rate [55-90 bpm] 69 bpm (04/11/22 1:51 AM) 70 bpm (04/11/22 12:38 AM) 66 bpm (04/11/22 12:08 AM) Body Mass Index [18.5-24.99] 27.1 *H* (04/10/22 1:18 PM) Blood Pressure [90-138/55-84 mm Hg] 123/75mm Hg (04/11/22 1:51 AM) 125/81mm Hg (04/11/22 12:38 AM) 129/81mm Hg (04/11/22 12:08 AM) Respiratory Rate [16-30 br/min] 16 br/min (04/11/22 12:29 AM) 16 br/min (04/10/22 9:38 PM) 16 br/min (04/10/22 8:13 PM) Temperature [96.8-100.4 DegF] 97.7 DegF (04/11/22 1:51 AM) 98.1 DegF (04/11/22 12:38 AM) 97.2 DegF (04/11/22 12:08 AM) Mode of Delivery (Oxygen) Room air (04/11/22 1:51 AM) Room air (04/11/22 12:38 AM) Room air (04/11/22 12:08 AM) Blood pressure sites Arm, right (04/11/22 1:51 AM) Arm, left (04/11/22 12:38 AM) Arm, right (04/11/22 12:08 AM) Temperature Route Temporal (04/11/22 1:51 AM) Temporal (04/11/22 12:38 AM) Temporal (04/11/22 12:08 AM) Dry Weight 83 kg (04/10/22 1:18 PM) 83 kg (04/10/22 10:52 AM) Social History Social History Type Response Smoking Status Never (less than 100 in lifetime) entered on: 10/25/21 Sex
--- OUTSIDE RECORDS SUMMARY | 2023-02-21 14:46 | XMS_ITS | Continuity of Care Document ---
Author Name Unknown Organization [facility] Address [address] [place] [id number]- Care Team Providers Care Gas Prover Name Role Phone Thomas Bright Primary Care Physician Encounter [facility] [place] Date(s): 02/25/20 - 02/25/[address] [address]- [facility] Discharge Disposition: A-D/C Walkout Attending Physician: Not [...] 1makes pt itchy 2Hx of Guillain - [place] Immunizations Given and Recorded Vaccine Date Status Refusal Reason pneumococcal 23-valent vaccine 02/03/17 Given Not Given Vaccine Date Status Refusal Reason pneumococcal 23-valent vaccine 01/25/17 Not Given Patient Refuses Medications atorvastatin 80 mg oral tablet 1 tablet = 80 mg, By Mouth, Daily, # 30 tablet, 0 Refills, Maintenance, Tablet, Route to Pharmacy Electronically, [id number], [facility] Start Date: 04/02/18 Stop Date: 05/02/18 Status: Ordered famotidine 20 mg oral tablet 20 mg, 1, tablet, By Mouth, Daily, # 30 tablet, Refills 0, Tot. 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 Hematoma of leg(Confirmed) Active HIV disease(Confirmed) 2002 Active Hypercholesterolemia(Confirmed) 2005 Active HLD (hyperlipidemia)(Confirmed) Active HTN (hypertension)(Confirmed) Active Hypothyroidism(Confirmed) Active Skin infection(Confirmed) Active PVD (peripheral vascular disease)(Confirmed) Active 1sequelae, left sided weakness Vital Signs Most recent to oldest [Reference Range]: 1 2 3 Weight 87.5 kg (02/25/20 9:43 PM) 87.5 kg (02/25/20 4:15 PM) 87.5 kg (02/25/20 3:52 PM) Oxygen Saturation [94-100 %] 100 % (02/25/20 9:43 PM) 99 % (02/25/20 3:52 PM) 98 % (02/25/20 3:35 PM) Pulse Rate [55-90 bpm] 78 bpm (02/25/20 9:43 PM) 101 bpm *H* (02/25/20 3:52 PM) 95 bpm *H* (02/25/20 3:35 PM) Blood Pressure [90-138/55-84 mm Hg] 136/86mm Hg (02/25/20 9:43 PM) 120/98mm Hg (02/25/20 3:52 PM) Respiratory Rate [16-30 br/min] 16 br/min (02/25/20 9:43 PM) 16 br/min (02/25/20 3:52 PM) Temperature [96.8-100.4 DegF] 98.5 DegF (02/25/20 3:52 PM) Mode of Delivery (Oxygen) Room air (02/25/20 9:43 PM) Room air (02/25/20 3:52 PM) Room air (02/25/20 3:35 PM) Blood pressure sites Arm, right (02/25/20 9:43 PM) Arm, right (02/25/20 3:52 PM) Temperature Route Oral (02/25/20 3:52 PM) Dry Weight 87.5 kg (02/25/20 9:43 PM) 87.5 kg (02/25/20 4:15 PM) 87.5 kg (02/25/20 3:52 PM) Social History Social History Type Response Smoking Status Former smoker; Tobac co user in household: No; Type: Cigarettes; Other: quit in july 2016; Tobacco use times per day: half pack per day; Started at age: 11; entered on: 05/29/18 Sex
--- OUTSIDE RECORDS SUMMARY | 2023-02-21 14:47 | XMS_ITS | Continuity of Care Document ---
Author Name Unknown Organization [facility] Address [address] [place] [id number] Care Team Providers Care Bridge Welder Name Role Phone Thomas Bright Primary Care Physician Encounter [facility] [place] Date(s): 01/04/23 - 01/04/[address] [address]- Encounter Diagnosis Abdominal pain(Final) - 01/04/23 Discharge Disposition: A-D/C Home Attending Physician: Lolis Burgos MD Admitting Physician: Lolis Burgos MD Referring Physician: Not on Staff, Referring MD Allergies, Adverse Reactions, Alerts Substance Reaction Severity Status Lamictal Hives, itch Active Tegretol Hallucinations, aggression A ctive Tylenol itching Active Lobster Persistent Severe Active Percocet 7.5/325 1 C/O: itching Active influenza virus vaccine, inactivated 2 Active traMADol Active oxyCODONE Persistent Mild Active 1makes pt itchy 2Hx of Guillain - [place] Immunizations Given and Recorded Vaccine Date Status Refusal Reason pneumococcal 23-valent vaccine 02/03/17 Given Not Given Vaccine Date Status Refusal Reason pneumococcal 23-valent vaccine 01/25/17 Not Given Patient Refuses Medications atorvastatin 80 mg oral tablet 1 tablet = 80 mg, By Mouth, Daily at bedtime, # 30 tablet, 0 Refills, Maintenance, Tablet, Route toPharmacy Electronically, [id number], [facility] Start Date: 04/02/18 Stop Date: 05/02/18 Status: Ordered famotidine 20 mg oral tablet TOME DOS TABLETAS POR VIA ORAL TODOS [place] Start Date: 06/16/20 Status: Ordered fondaparinux 7.5 mg/0.6 mL subcutaneous solution 0.6 mL = 7.5 mg, Subcutaneous Injection, Daily, for 28 days, given 7.5 mg QD, when switching from lovenox, this should be given at time of next planned dose of lovenox, after which lovenox can be discontinued, # 16.8 mL, 3 Refills, Acute 01/10/23 17:1... 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 Hematoma of leg Confirmed Active HIV disease Confirmed 2002 Active HLD (hyperlipidemia) Confirmed Active HTN (hypertension) Confirmed Active Hypothyroidism Confirmed Active Skin infection Confirmed Active PVD (peripheral vascular disease) Confirmed Active 1sequelae, left sided weakness Results Radiology Reports * Exam Date Time Procedure Performing Provider Status 01/04/23 4:[address] Angio Abdomen and Pelvis Julieth Marie lurdes; Auth (Verified) Notes: (CT Angio Abdomen and Pelvis) Reason For Exam: AAA, surveillance;Other: RESULT: CT Angio Abdomen and Pelvis PROCEDURE: CT Angio Chest, CT Angio Abdomen and Pelvis CLINICAL INDICATION: Hx of Present Illness: Pt from home with abd pain , hx AAA repair 2016 Chest pain. Abdominal pain. Shortness of breath. TECHNIQUE: During uneventful administration intravenous contrast, thin section axial images were obtained of the chest, abdomen, and pelvis in arterial phase. Multiplanar reformats were computed. 100 cc of Omnipaque 300 was administered intravenously. 3D and MIP reconstructions were performed. Weight-based protocol using automatic tube modulation was used to optimize exposure parameters. RADIATION DOSE PARAMETERS: CTDIvol Body: 7.32 mGy, DLP Body: 351 mGy*cm. COMPARISON: 11/02/2022 FINDINGS: CTA: Pulmonary arteries: No pulmonary embolism to the segmental level.. Thoracic aorta: No thoracic aortic aneurysm or dissection. Abdominal aorta: There is an endograft with an additional stent in each lung. The residual sac is only 25 mm, unchanged. No evidence of endoleak. Endograft and the stents are patent.. Celiac axis: Normal. Superior mesenteric artery: Normal. Inferior mesenteric artery: Origin of RAMANA could not be assessed due to artifact from the stent. Theremainder of the RAMANA is patent.. Renal arteries: Normal. Iliac arteries: Normal diameter. No dissection or occlusion.. OTHER FINDINGS: TRACHEA AND MAINSTEM BRONCHI: Patent without evidence of tracheal or endobronchial lesion. LUNGS AND PLEURA: Calcified granulomas. Lungs otherwise clear. No pleural effusions. No pneumothorax. MEDIASTINUM AND [place]: The heart is of normal size. No pericardial effusion.. There is no mediastinal or hilar adenopathy.. There is no esophageal abnormality. BONES OF THE CHEST: There is a moderate compression fracture of T6 which is unchanged since 11/12/2022.. There is no new*spine abnormality. No fracture or sternum.. DIAPHRAGM: Unremarkable. LIVER: No significant focal abnormality. GALLBLADDER: Surgically absent. BILE DUCTS: No biliary dilatation. SPLEEN: Normal size. No focal abnormality. Calcified granulomas.. PANCREAS: Atrophy. No focal abnormality.. ADRENAL GLANDS: Normal. KIDNEYS AND URETERS: Right Kidney: Normal. Left Kidney: Normal. BLADDER: Normal. STOMACH, SMALL BOWEL AND LARGE BOWEL: Stomach: Normal. Small Bowel: No small bowel dilatation or gross inflammatory change Large Bowel: No large bowel dilatation or gross inflammatory change. There is an anastomosis at thesigmoid with no complication.. APPENDIX: Probably surgically absent.. REPRODUCTIVE/PELVIC ORGANS: No pelvic mass or fluid collection PERITONEUM, RETROPERITONEUM, OMENTUM AND MESENTERY: There is no free air. . There is no ascites. LYMPH NODES: No enlarged lymph nodes ABDOMINAL WALL: No abdominal wall hernia BONES OF THE ABDOMEN AND PELVIS: There is no compression fracture. There is no spondylolysis or spondylolisthesis. No fracture or bony pelvis and proximal femurs. IMPRESSION: CTA 1. No pulmonary embolism to segmental level.. 2. No thoracic aortic aneurysm or dissection. 3. Abdominal aortic endograft with maximum sac diameter 25 mm and no endoleak.. CHEST 1. No significant pulmonary, pleural, or mediastinal abnormality. 2. No recent x-ray of the bones of the chest. ABDOMEN AND PELVIS 1. No clear explanation for the patient's abdominal pain. 2. This includes no bowel obstruction, hydronephrosis, renal stone disease, abscess, bowel ischemia, or diverticulitis. 3. No acute bony abnormality. WSN: [id number] Ordering Physician: Jordy Clark Dictated By: Anjum Lopez MD Dictated Date/Time: 01/04/23 4:52 pm Reviewed By: Anjum Lopez MD Signed By: Anjum Lopez MD Signed Date/Time: 01/04/23 4:52 pm Transcribed By: LOGAN Transcribed Date/Time: 01/04/23 4:29 pm * Exam Date Time Procedure Performing Provider Status 01/04/23 4:[address] Angio Chest Lanny Marie; Auth (Ve rified) Notes: (CT Angio Chest) Reason For Exam: Aortic disease, nontraumatic;Other: RESULT: CT Angio Chest PROCEDURE: CT Angio Chest, CT Angio Abdomen and Pelvis CLINICAL INDICATION: Hx of Present Illness: Pt from home with abd pain , hx AAA repair 2016 Chest pain. Abdominal pain. Shortness of breath. TECHNIQUE: During uneventful administration intravenous contrast, thin section axial images were obtained of the chest, abdomen, and pelvis in arterial phase. Multiplanar reformats were computed. 100 cc of Omnipaque 300 was administered intravenously. 3D and MIP reconstructions were performed. Weight-based protocol using automatic tube modulation was used to optimize exposure parameters. RADIATION DOSE PARAMETERS: CTDIvol Body: 7.32 mGy, DLP Body: 351 mGy*cm. COMPARISON: 11/02/2022 FINDINGS: CTA: Pulmonary arteries: No pulmonary embolism to the segmental level.. Thoracic aorta: No thoracic aortic aneurysm or dissection. Abdominal aorta: There is an endograft with an additional stent in each lung. The residual sac is only 25 mm, unchanged. No evidence of endoleak. Endograft and the stents are patent.. Celiac axis: Normal. Superior mesenteric artery: Normal. Inferior mesenteric artery: Origin of RAMANA could not be assessed due to artifact from the stent. Theremainder of the RAMANA is patent.. Renal arteries: Normal. Iliac arteries: Normal diameter. No dissection or occlusion.. OTHER FINDINGS: TRACHEA AND MAINSTEM BRONCHI: Patent without evidence of tracheal or endobronchial lesion. LUNGS AND PLEURA: Calcified granulomas. Lungs otherwise clear. No pleural effusions. No pneumothorax. MEDIASTINUM AND [place]: The heart is of normal size. No pericardial effusion.. There is no mediastinal or hilar adenopathy.. There is no esophageal abnormality. BONES OF THE CHEST: There is a moderate compression fracture of T6 which is unchanged since 11/12/2022.. There is no new*spine abnormality. No fracture or sternum.. DIAPHRAGM: Unremarkable. LIVER: No significant focal abnormality. GALLBLADDER: Surgically absent. BILE DUCTS: No biliary dilatation. SPLEEN: Normal size. No focal abnormality. Calcified granulomas.. PANCREAS: Atrophy. No focal abnormality.. ADRENAL GLANDS: Normal. KIDNEYS AND URETERS: Right Kidney: Normal. Left Kidney: Normal. BLADDER: Normal. STOMACH, SMALL BOWEL AND LARGE BOWEL: Stomach: Normal. Small Bowel: No small bowel dilatation or gross inflammatory change Large Bowel: No large bowel dilatation or gross inflammatory change. There is an anastomosis at thesigmoid with no complication.. APPENDIX: Probably surgically absent.. REPRODUCTIVE/PELVIC ORGANS: No pelvic mass or fluid collection PERITONEUM, RETROPERITONEUM, OMENTUM AND MESENTERY: There is no free air. . There is no ascites. LYMPH NODES: No enlarged lymph nodes ABDOMINAL WALL: No abdominal wall hernia BONES OF THE ABDOMEN AND PELVIS: There is no compression fracture. There is no spondylolysis or spondylolisthesis. No fracture or bony pelvis and proximal femurs. IMPRESSION: CTA 1. No pulmonary embolism to segmental level.. 2. No thoracic aortic aneurysm or dissection. 3. Abdominal aortic endograft with maximum sac diameter 25 mm and no endoleak.. CHEST 1. No significant pulmonary, pleural, or mediastinal abnormality. 2. No recent x-ray of the bones of the chest. ABDOMEN AND PELVIS 1. No clear explanation for the patient's abdominal pain. 2. This includes no bowel obstruction, hydronephrosis, renal stone disease, abscess, bowel ischemia, or diverticulitis. 3. No acute bony abnormality. WSN: [id number] Ordering Physician: Jordy Clark Dictated By: Anjum Lopez MD Dictated Date/Time: 01/04/23 4:52 pm Reviewed By: Anjum Lopez MD Signed By: Anjum Lopez MD Signed Date/Time: 01/04/23 4:52 pm Transcribed By: LOGAN Transcribed Date/Time: 01/04/23 4:29 pm * Exam Date Time Procedure Performing Provider Status 01/04/23 1:49 PM US Doppler Ext Lower Venous Bilat Lilli West; Auth (Verified) Notes: (US Doppler Ext Lower Venous Bilat) Reason For Exam: Pain in limb;Other: RESULT: US Doppler Ext Lower Venous Bilat US Doppler Ext Lower Venous Bilat HX OF PRESENT ILLNESS: Pt from home with abd pain , hx AAA repair 2015 . Pt also reports bilat DVT since August . pt on Fondaparinux; Reason: Pain in limb; Clinical Question(s): Thrombosis; COMPARISON: Bilateral lower extremity Doppler ultrasound from 11/02/2022 and left lower extremity Doppler ultrasound from 11/15/2022. CT angiogram with runoff from 11/15/2022. IMAGING TECHNIQUE: Ultrasound of the veins from [...] vein: Patent. No thrombosis. Femoral vein: Patent. In the midportion of the vein, there there are linear heterogeneous echogenicities along the vessel wall, likely representing chronic postthrombotic changes. Popliteal vein: Patent. Again seen are eccentric linear heterogeneous echogenicities along the vessel wall, likely representing chronic postthrombotic changes. This is unchanged since 08/02/2022 Gastrocnemius veins: The visualized portions are patent without evidence of thrombosis. Peroneal veins: The visualized portions are patent. There are small heterogeneous echogenicities seen in the bilateral peroneal veins, likely representing chronic postthrombotic changes. Posterior tibial veins: The visualized portions are patent without evidence of thrombosis. OTHER FINDINGS: Unchanged known 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 IMPRESSION: 1. No evidence of acute deep venous thrombosis in the right lower extremity. 2. Chronic post-thrombotic scarring seen within the left femoral, popliteal and paired peroneal veins. 3. 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 I have personally reviewed the images and I agree with this report. WSN: [id number] Ordering Physician: Jordy Clark Dictated By: Dmitry Dawn MD Dictated Date/Time: 01/04/23 2:20 pm Reviewed By: Ramsey Miller MD Signed By: Ramsey Miller MD Signed Date/Time: 01/04/23 2:25 pm Transcribed By: LOGAN Transcribed Date/Time: 01/04/23 2:08 pm * Exam Date Time Procedure Performing Provider Status 01/04/23 11:10 AM Chest Portable Juan David , Yanira; Auth ( Verified) Notes: (Chest Portable) Reason For Exam: Chest Pain;Other: RESULT: Chest Portable Chest Portable HX OF PRESENT ILLNESS: Pt from home with abd pain , hx AAA repair 2015 . Pt also reports bilat DVT since August . pt on Fondaparinux; Reason: Other:; Chest Pain; Clinical Question(s): CHF / CHF COMPARISON: 11/15/2022 FINDINGS: LINES AND TUBES: None. LUNGS AND PLEURA: Clear lungs. Normal pulmonary vascularity. No pleural effusion. No pneumothorax. HEART, MEDIASTINUM AND [place]: Heart is normal in size. Normal mediastinal and hilar contour. BONES AND SOFT TISSUES: No acute abnormality. IMPRESSION: No evidence of acute abnormality. WSN: [id number] Ordering Physician: Jordy Clark Dictated By: Fletcher Whitney MD Dictated Date/Time: 01/04/23 11:26 a Reviewed By: Fletcher Whitney MD Signed By: Fletcher Whitney MD Signed Date/Time: 01/04/23 11:26 am Transcribed By: LOGAN Transcribed Date/Time: 01/04/23 11:19 am Vital Signs Most recent to oldest [Reference Range]: 1 2 3 Oxygen Saturation [94-100 %] 98 % (01/04/23 6:54 PM) 99 % (01/04/23 3:26 PM) 98 % (01/04/23 10:22 AM) Pulse Rate [55-90 bpm] 83 bpm (01/04/23 6:54 PM) 74 bpm (01/04/23 3:26 PM) 83 bpm (01/04/23 10:23 AM) Blood Pressure [90-138/55-84 mm Hg] 114/78mm Hg (01/04/23 6:54 PM) 116/61mm Hg (01/04/23 3:26 PM) 114/82mm Hg (01/04/23 10:23 AM) Respiratory Rate [16-30 br/min] 18 br/min (01/04/23 6:56 PM) 18 br/min (01/04/23 6:54 PM) 20 br/min (01/04/23 5:11 PM) Temperature [96.8-100.4 DegF] 98.3 DegF (01/04/23 6:54 PM) 98.2 DegF (01/04/23 9:37 AM) Mode of Delivery (Oxygen) Room air (01/04/23 6:54 PM) Room air (01/04/23 3:26 PM) Room air (01/04/23 10:22 AM) Blood pressure sites Arm, left (01/04/23 6:54 PM) Arm, left (01/04/23 3:26 PM) Arm, right (01/04/23 10:23 AM) Temperature Route Oral (01/04/23 6:54 PM) Oral (01/04/23 9:37 AM) Social History Social History Type Response Smoking Status Never (less than 100 in lifetime) entered on: 10/25/21 Sex US.doppler Lower extremity vein - bilateral * [facility] , CIS S: TRANSCRIGEOFF Miller MD, Ramsey Locke: VERIFY López MG, Dmitry A: SIGN Event Display: Result: Authored Date: [id number] US Doppler Ext Lower Venous Bilat HX OF PRESENT ILLNESS: Pt from home with abd pain , hx AAA repair 2015 . Pt also reports bilat DVT since August . pt on Fondaparinux; Reason: Pain in limb; Clinical Question(s): Thrombosis; COMPARISON: Bilateral lower extremity Doppler ultrasound from 11/02/2022 and left lower extremity Doppler ultrasound from 11/15/2022. CT angiogram with runoff from 11/15/2022. IMAGING TECHNIQUE: Ultrasound of the veins from [...] vein: Patent. No thrombosis. Femoral vein: Patent. In the midportion of the vein, there there are linear heterogeneous echogenicities along the vessel wall, likely representing chronic postthrombotic changes. Popliteal vein: Patent. Again seen are eccentric linear heterogeneous echogenicities along the vessel wall, likely representing chronic postthrombotic changes. This is unchanged since 08/02/2022 Gastrocnemius veins: The visualized portions are patent without evidence of thrombosis. Peroneal veins: The visualized portions are patent. There are small heterogeneous echogenicities seen in the bilateral peroneal veins, likely representing chronic postthrombotic changes. Posterior tibial veins: The visualized portions are patent without evidence of thrombosis. OTHER FINDINGS: Unchanged known 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 IMPRESSION: 1. No evidence of acute deep venous thrombosis in the right lower extremity. 2. Chronic post-thrombotic scarring seen within the left femoral, popliteal and paired peroneal veins. 3. 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 I have personally reviewed the images and I agree with this report. WSN: [id number] Ordering Physician: Jordy Clark Dictated By: Dmitry Dawn MD Dictated Date/Time: 01/04/23 2:20 pm Reviewed By: Ramsey Miller MD Signed By: Ramsey Miller MD Signed Date/Time: 01/04/23 2:25 pm Transcribed By: LOGAN Transcribed Date/Time: 01/04/23 2:08 pm CTA Abdominal vessels and Pelvis vessels W contrast IV * [facility] , CIS S: TRANSCRIBE Jessica MG, Anjum D: VERIFY Event Display: Result: Authored Date: [id number] PROCEDURE: CT Angio Chest, CT Angio Abdomen and Pelvis CLINICAL INDICATION: Hx of Present Illness: Pt from home with abd pain , hx AAA repair 2016 Chest pain. Abdominal pain. Shortness of breath. TECHNIQUE: During uneventful administration intravenous contrast, thin section axial images were obtained of the chest, abdomen, and pelvis in arterial phase. Multiplanar reformats were computed. 100 cc of Omnipaque 300 was administered intravenously. 3D and MIP reconstructions were performed. Weight-based protocol using automatic tube modulation was used to optimize exposure parameters. RADIATION DOSE PARAMETERS: CTDIvol Body: 7.32 mGy, DLP Body: 351 mGy*cm. COMPARISON: 11/02/2022 FINDINGS: CTA: Pulmonary arteries: No pulmonary embolism to the segmental level.. Thoracic aorta: No thoracic aortic aneurysm or dissection. Abdominal aorta: There is an endograft with an additional stent in each lung. The residual sac is only 25 mm, unchanged. No evidence of endoleak. Endograft and the stents are patent.. Celiac axis: Normal. Superior mesenteric artery: Normal. Inferior mesenteric artery: Origin of RAMANA could not be assessed due to artifact from the stent. Theremainder of the RAMANA is patent.. Renal arteries: Normal. Iliac arteries: Normal diameter. No dissection or occlusion.. OTHER FINDINGS: TRACHEA AND MAINSTEM BRONCHI: Patent without evidence of tracheal or endobronchial lesion. LUNGS AND PLEURA: Calcified granulomas. Lungs otherwise clear. No pleural effusions. No pneumothorax. MEDIASTINUM AND [place]: The heart is of normal size. No pericardial effusion.. There is no mediastinal or hilar adenopathy.. There is no esophageal abnormality. BONES OF THE CHEST: There is a moderate compression fracture of T6 which is unchanged since 11/12/2022.. There is no new*spine abnormality. No fracture or sternum.. DIAPHRAGM: Unremarkable. LIVER: No significant focal abnormality. GALLBLADDER: Surgically absent. BILE DUCTS: No biliary dilatation. SPLEEN: Normal size. No focal abnormality. Calcified granulomas.. PANCREAS: Atrophy. No focal abnormality.. ADRENAL GLANDS: Normal. KIDNEYS AND URETERS: Right Kidney: Normal. Left Kidney: Normal. BLADDER: Normal. STOMACH, SMALL BOWEL AND LARGE BOWEL: Stomach: Normal. Small Bowel: No small bowel dilatation or gross inflammatory change Large Bowel: No large bowel dilatation or gross inflammatory change. There is an anastomosis at thesigmoid with no complication.. APPENDIX: Probably surgically absent.. REPRODUCTIVE/PELVIC ORGANS: No pelvic mass or fluid collection PERITONEUM, RETROPERITONEUM, OMENTUM AND MESENTERY: There is no free air. . There is no ascites. LYMPH NODES: No enlarged lymph nodes ABDOMINAL WALL: No abdominal wall hernia BONES OF THE ABDOMEN AND PELVIS: There is no compression fracture. There is no spondylolysis or spondylolisthesis. No fracture or bony pelvis and proximal femurs. IMPRESSION: CTA 1. No pulmonary embolism to segmental level.. 2. No thoracic aortic aneurysm or dissection. 3. Abdominal aortic endograft with maximum sac diameter 25 mm and no endoleak.. CHEST 1. No significant pulmonary, pleural, or mediastinal abnormality. 2. No recent x-ray of the bones of the chest. ABDOMEN AND PELVIS 1. No clear explanation for the patient's abdominal pain. 2. This includes no bowel obstruction, hydronephrosis, renal stone disease, abscess, bowel ischemia, or diverticulitis. 3. No acute bony abnormality. WSN: [id number] Ordering Physician: Jordy Clark Dictated By: Anjum Lopez MD Dictated Date/Time: 01/04/23 4:52 pm Reviewed By: Anjum Lopez MD Signed By: Anjum Lopez MD Signed Date/Time: 01/04/23 4:52 pm Transcribed By: LOGAN Transcribed Date/Time: 01/04/23 4:29 pm CTA Chest vessels W contrast IV * [facility] , CIS S: TRANSCRIBE Anjum Lopez MD: VERIFY Event Display: Result: Authored Date: [id number] PROCEDURE: CT Angio Chest, CT Angio Abdomen and Pelvis CLINICAL INDICATION: Hx of Present Illness: Pt from home with abd pain , hx AAA repair 2016 Chest pain. Abdominal pain. Shortness of breath. TECHNIQUE: During uneventful administration intravenous contrast, thin section axial images were obtained of the chest, abdomen, and pelvis in arterial phase. Multiplanar reformats were computed. 100 cc of Omnipaque 300 was administered intravenously. 3D and MIP reconstructions were performed. Weight-based protocol using automatic tube modulation was used to optimize exposure parameters. RADIATION DOSE PARAMETERS: CTDIvol Body: 7.32 mGy, DLP Body: 351 mGy*cm. COMPARISON: 11/02/2022 FINDINGS: CTA: Pulmonary arteries: No pulmonary embolism to the segmental level.. Thoracic aorta: No thoracic aortic aneurysm or dissection. Abdominal aorta: There is an endograft with an additional stent in each lung. The residual sac is only 25 mm, unchanged. No evidence of endoleak. Endograft and the stents are patent.. Celiac axis: Normal. Superior mesenteric artery: Normal. Inferior mesenteric artery: Origin of RAMANA could not be assessed due to artifact from the stent. Theremainder of the RAMANA is patent.. Renal arteries: Normal. Iliac arteries: Normal diameter. No dissection or occlusion.. OTHER FINDINGS: TRACHEA AND MAINSTEM BRONCHI: Patent without evidence of tracheal or endobronchial lesion. LUNGS AND PLEURA: Calcified granulomas. Lungs otherwise clear. No pleural effusions. No pneumothorax. MEDIASTINUM AND [place]: The heart is of normal size. No pericardial effusion.. There is no mediastinal or hilar adenopathy.. There is no esophageal abnormality. BONES OF THE CHEST: There is a moderate compression fracture of T6 which is unchanged since 11/12/2022.. There is no new*spine abnormality. No fracture or sternum.. DIAPHRAGM: Unremarkable. LIVER: No significant focal abnormality. GALLBLADDER: Surgically absent. BILE DUCTS: No biliary dilatation. SPLEEN: Normal size. No focal abnormality. Calcified granulomas.. PANCREAS: Atrophy. No focal abnormality.. ADRENAL GLANDS: Normal. KIDNEYS AND URETERS: Right Kidney: Normal. Left Kidney: Normal. BLADDER: Normal. STOMACH, SMALL BOWEL AND LARGE BOWEL: Stomach: Normal. Small Bowel: No small bowel dilatation or gross inflammatory change Large Bowel: No large bowel dilatation or gross inflammatory change. There is an anastomosis at thesigmoid with no complication.. APPENDIX: Probably surgically absent.. REPRODUCTIVE/PELVIC ORGANS: No pelvic mass or fluid collection PERITONEUM, RETROPERITONEUM, OMENTUM AND MESENTERY: There is no free air. . There is no ascites. LYMPH NODES: No enlarged lymph nodes ABDOMINAL WALL: No abdominal wall hernia BONES OF THE ABDOMEN AND PELVIS: There is no compression fracture. There is no spondylolysis or spondylolisthesis. No fracture or bony pelvis and proximal femurs. IMPRESSION: CTA 1. No pulmonary embolism to segmental level.. 2. No thoracic aortic aneurysm or dissection. 3. Abdominal aortic endograft with maximum sac diameter 25 mm and no endoleak.. CHEST 1. No significant pulmonary, pleural, or mediastinal abnormality. 2. No recent x-ray of the bones of the chest. ABDOMEN AND PELVIS 1. No clear explanation for the patient's abdominal pain. 2. This includes no bowel obstruction, hydronephrosis, renal stone disease, abscess, bowel ischemia, or diverticulitis. 3. No acute bony abnormality. WSN: [id number] Ordering Physician: Jordy Clark Dictated By: Anjum Lopez MD Dictated Date/Time: 01/04/23 4:52 pm Reviewed By: Anjum Lopez MD Signed By: Anjum Lopez MD Signed Date/Time: 01/04/23 4:52 pm Transcribed By: LOGAN Transcribed Date/Time: 01/04/23 4:29 pm Portable XR Chest Views * [facility] , CIS S: TRANSCRIBE Fletcher Whitney MD: VERIFY Event Display: Result: Authored Date: Chest Portable HX OF PRESENT ILLNESS: Pt from home with abd pain , hx AAA repair 2015 . Pt also reports bilat DVT since August . pt on Fondaparinux; Reason: Other:; Chest Pain; Clinical Question(s): CHF / CHF COMPARISON: 11/15/2022 FINDINGS: LINES AND TUBES: None. LUNGS AND PLEURA: Clear lungs. Normal pulmonary vascularity. No pleural effusion. No pneumothorax. HEART, MEDIASTINUM AND [place]: Heart is normal in size. Normal mediastinal and hilar contour. BONES AND SOFT TISSUES: No acute abnormality. IMPRESSION: No evidence of acute abnormality. WSN: [id number] Ordering Physician: Jordy Clark Dictated By: Fletcher Whitney MD Dictated Date/Time: 01/04/23 11:26 a Reviewed By: Fletcher Whitney MD Signed By: Fletcher Whitney MD Signed Date/Time: 01/04/23 11:26 am Transcribed By: LOGAN Transcribed Date/Time: 01/04/23 11:19 am Patient Care team information Care Team Personnel Name: Di SIMEON, Joselyn Velasco Position: [facility] RN Member Role: Primary Care Nurse Name: Eddy PA, Thomas J Position: [facility] Outreach Member Role: PCP Address: Address: [address] [place] [address]- Name: Karmen Mandujano RN Position: [facility] Rad RN Member Role: Primary Care Nurse Name: Margie Castanon RN Position: [facility] RN Member Role: Primary Care Nurse Name: Shahbaz Castaneda RN Position: [facility] RN Member Role: Primary Care Nurse Name: Justin Dailey MD Position: [facility] Infectious Disease MD Member Role: Lifetime Consulting Physician Address: Address: [address] [facility] [place] [address]- Name: Sophia Bell RN Position: [facility] RN Member Role: Primary Care Nurse Name: Veronica Davila RN Position: [facility] RN Member Role: Primary Care Nurse Name: Melva Herndon RN Position: [facility] RN Member Role: Primary Care Nurse Name: Karena Penaloza RN Position: [facility] RN Member Role: Primary Care Nurse Name: Fang Adams RN [facility] Member Role: Primary Care Nurse Name: Karri Jaramillo RN Position: [facility] RN Member Role: Primary Care Nurse Name: Consuelo Alvarenga RN Position: [facility] RN Member Role: Primary Care Nurse Name: Veronica Blanco RN Position: [facility] DANIELLEO RN Member Role: Primary Care Nurse Name: Lazaro Huffman RN Position: [facility] RN Member Role: Primary Care Nurse Name: Jacquelyn Juarez Position: [facility] RN Member Role: Primary Care Nurse Name: Jacquelyn Ramsey RN Position: [facility] RN Member Role: Primary Care Nurse Name: Jennifer Ghosh RN Position: [facility] RN Member Role: Primary Care Nurse Name: Qiana Mansfield RN Position: [facility] RN Member Role: Primary Care Nurse Name: Chuyita Ashley RN Position: [facility] RN Member Role: Primary Care Nurse Name: Elle Blackwood RN Position: [facility] Member Role: Primary Care Nurse Name: Yamilex Arteaga RN Position: [facility] RN Member Role: Primary Care Nurse Name: Skip Harry RN Position: [facility] RN Member Role: Primary Care Nurse Name: Valentine Perrin RN Position: [facility] RN Member Role: Primary Care Nurse Name: Mark Howell RN Position: [facility] RN Member Role: Primary Care Nurse Name: Elaine Webb RN Position: [facility] RN Member Role: Primary Care Nurse Name: Stephanie Houser RN Position: [facility] RN Member Role: Primary Care Nurse Name: Amber Gu RN Position: [facility] RN Member Role: Primary Care Nurse Name: Reji Zimmerman Jr Position: [facility] ED RN W/OE and Tasks Member Role: Primary Care Nurse Name: Dang Padilla RN Position: [facility] RN Member Role: Primary Care Nurse Name: Scot Anderson RN Position: [facility] RN Member Role: Primary Care Nurse Name: Luz Marina Byrd RN Position: [facility] RN Member Role: Primary Care Nurse Name: Joelle Sandoval RN Position: [facility] RN Member Role: Primary Care Nurse Name: Gideon Diaz RN Position: [facility] Onco RN Member Role: Primary Care Nurse Name: Diana Anderson RN Position: [facility] RN Member Role: Primary Care Nurse Name: Thomas Betancur RN Position: [facility] RN Member Role: Primary Care Nurse Name: Vee Mcnamara RN Position[facility] Member Role: Primary Care Nurse Name: Nisreen Greenberg RN Position: [facility] Outreach Member Role: Primary Care Nurse Name: Lanny Bolton RN Position: [facility] RN Member Role: Primary Care Nurse Name: Anthony Carolina RN Position: [facility] RN Member Role: Primary Care Nurse Name: Ana Dupont RN Position: [facility] RN Member Role: Primary Care Nurse Name: Alyssia Durbin RN Position: [facility] RN Member Role: Primary Care Nurse Name: Afhsan Galeano RN Position: [facility] RN Member Role: Primary Care Nurse Name: Reji Bright RN Position: [facility] RN Member Role: Primary Care Nurse Name: Estefanía Austin RN Position: [facility] RN Member Role: Primary Care Nurse Name: Sarah Carson RN Position: [facility] RN Member Role: Primary Care Nurse Name: Amira Hughes RN Position: [facility] RN Member Role: Primary Care Nurse Name: Rina Dunlap LPN Position: [facility] RN Member Role: Primary Care Nurse Name: Chiquis Callejas RN Position: [facility] Onco RN Member Role: Primary Care Nurse Name: Linda Rajput RN, I Position: [facility] RN Member Role: Primary Care Nurse Name: Luz Marina Alvarado RN Position: [facility] ED RN W/OE and Tasks Member Role: Patient Care Provider Name: Lolis Burgos MD Position: [facility] ED Medicine MD Member Role: Admitting Physician Address: Address: [address] [place] [address]- Name: Maggy Lieberman DO Position: [facility] Resident Member Role: ED Resident Address: Address: [address] [place] [address]- Care Team Related Persons Name: SHAHBAZ MEADOWS Address: home [address] [place] [address] Name: YOANDY TAYLOR Address: home [address] [address]
--- OUTSIDE RECORDS SUMMARY | 2023-02-21 14:47 | XMS_ITS | Continuity of Care Document ---
Author Name Unknown Organization [facility] Address [address] [place] [id number]- Care Team Providers Care Medical Advisor Name Role Phone Thomas Bright Primary Care Physician [phone] Encounter [facility] Date(s): 07/11/22 - 07/11/[address] [address]- Encounter Diagnosis Chest pain(Final) - 07/11/22 Elevated troponin level(Final) - 07/11/22 Discharge Disposition: A-D/C AMA Attending Physician: Jesse Yepez MD Admitting Physician: Jesse Yepez MD Referring Physician: Not on Staff, Referring MD Allergies, Adverse Reactions, Alerts Substance Reaction Severity Status Lamictal Hives, itch Active Tegretol Hallucinations, aggression A ctive Tylenol itching Active Lobster Persistent Severe Active Percocet 7.5/325 1 C/O: itching Active influenza virus vaccine, inactivated 2 Active traMADol Active oxyCODONE Persistent Mild Active 1makes pt itchy 2Hx of Guillain - Mercer Immunizations Given and Recorded Vaccine Date Status Refusal Reason pneumococcal 23-valent vaccine 02/03/17 Given Not Given Vaccine Date Status Refusal Reason pneumococcal 23-valent vaccine 01/25/17 Not Given Patient Refuses Medications atorvastatin 80 mg oral tablet 1 tablet = 80 mg, By Mouth, Daily at bedtime, # 30 tablet, 0 Refills, Maintenance, Tablet, Route toPharmacy Electronically, [id number], [facility] Start Date: 04/02/18 Stop [...] 1 Refills, Maintenance, 05/20/22 14:26:00 EDT, Tablet, [facility]/pharm[facility] #[id number], Partialfill upon patient request if the [...] EDT, So... Start Date: 06/02/22 Status: Ordered MorPHINE Inj 2 mg, Injection, IV Push Slowly, Once, STAT, 07/11/22 16:40:00 EST, Stop date 07/11/22 16:40:00 EST Start Date: 07/11/22 Stop Date: 07/11/22 Status: Completed pantoprazole 40 mg oral delayed release tablet [...] Active GERD (gastroesophageal reflux disease) Confirmed Active Guillain-Mercer syndrome 1 Confirmed Active Hematoma of leg Confirmed Active HIV disease Confirmed 2002 Active HLD (hyperlipidemia) Confirmed Active HTN (hypertension) Confirmed Active Hypothyroidism Confirmed Active Skin infection Confirmed Active PVD (peripheral vascular disease) Confirmed Active 1sequelae, left sided weakness Results Radiology Reports * Exam Date Time Procedure Performing Provider Status 07/11/22 4:[address] Angio Abdomen and Pelvis Sophia Bobby; Auth (Verified) Notes: (CT Angio Abdomen and Pelvis) Reason For Exam: AAA known, surveillance, abd pain;Other: RESULT: CT Angio Abdomen and Pelvis EXAMINATION: CT Angio Chest, CT Angio Abdomen and Pelvis INDICATION: Hx of Present Illness: CP that started overnight; Clinical Question(s): Other:; AAA; TECHNIQUE: Spiral CTA of the chest was performed after rapid IV contrast administration without cardiac gating triggered by an HOLLY on the aorta. Images are formatted in multiple planes using 2-D multiplanar and 3-D maximum intensity projection. 100 cc of Omnipaque 300 was administered intravenously. Weight-based protocol using automatic tube modulation was used to optimize exposure parameters. CTDIvol Body: 9.93 mGy, DLP Body: 1007 mGy*cm. COMPARISONS: 07/03/2022. ANGIOGRAPHIC FINDINGS: Normal-appearing thoracic aorta and three-vessel arch. No aneurysm or acute aortic abnormality seen on this study performed without cardiac gating. No evidence of a pulmonary embolism on this examination tailored to the systemic circulation. An aortobiiliac stent graft remains in place without evidence of complication. Splanchnic, iliac, and included lower extremity vessels remain widely patent. NON-ANGIOGRAPHIC FINDINGS: Trachea and Airways: Patent without evidence of tracheal or endobronchial lesion. Lungs and Pleura: Clear lungs. No evidence of previous granulomatous exposure again noted. No effusion or pneumothorax. Mediastinum and bronson: No mass or hematoma. No mediastinal or hilar lymphadenopathy. No esophageal abnormality. Partially included thyroid is normal-appearing. Heart: Heart is normal in size. No pericardial effusion. Chest Wall Soft Tissues: Normal. Liver: Normal appearing. Gallbladder: Status post cholecystectomy. Bile ducts: No biliary ductal dilation. Spleen: Normal. Pancreas: Moderately atrophic. Adrenal glands: Normal. Kidneys and ureters: No hydronephrosis, stones, or suspicious masses. Bladder: Normal. Reproductive organs: Unremarkable. Stomach, small bowel, and large bowel: Unremarkable, previous segmental sigmoid resection changes. Appendix: Post appendectomy changes. Peritoneum and retroperitoneum: No ascites or pneumoperitoneum. No omental or mesenteric lesions. Lymph nodes: No enlarged lymph nodes. Abdominal and pelvic wall: Patulous fat-containing right inguinal canal. Bones: No acute abnormalities, no focal osseous lesions. Mild chronic appearing T6 compression deformity unchanged. IMPRESSION: 1. No acute process. 2. Postsurgical and procedural changes with an aortobiiliac stent graft again noted without evidence of aneurysm or acute aortic abnormality. WSN: [id number] Ordering Physician: Blayne Arnold Dictated By: Varghese Penaloza MD Dictated Date/Time: 07/11/22 4:19 pm Reviewed By: Varghese Penaloza MD Signed By: Varghese Penaloza MD Signed Date/Time: 07/11/22 4:19 pm Transcribed By: LOGAN Transcribed Date/Time: 07/11/22 4:07 pm * Exam Date Time Procedure Performing Provider Status 07/11/22 4:[address] Angio Chest Sophia Bobby; Auth (Verified) Notes: (CT Angio Chest) Reason For Exam: AAA known, abd pain, chest pain;Other: RESULT: CT Angio Chest EXAMINATION: CT Angio Chest, CT Angio Abdomen and Pelvis INDICATION: Hx of Present Illness: CP that started overnight; Clinical Question(s): Other:; AAA; TECHNIQUE: Spiral CTA of the chest was performed after rapid IV contrast administration without cardiac gating triggered by an HOLLY on the aorta. Images are formatted in multiple planes using 2-D multiplanar and 3-D maximum intensity projection. 100 cc of Omnipaque 300 was administered intravenously. Weight-based protocol using automatic tube modulation was used to optimize exposure parameters. CTDIvol Body: 9.93 mGy, DLP Body: 1007 mGy*cm. COMPARISONS: 07/03/2022. ANGIOGRAPHIC FINDINGS: Normal-appearing thoracic aorta and three-vessel arch. No aneurysm or acute aortic abnormality seen on this study performed without cardiac gating. No evidence of a pulmonary embolism on this examination tailored to the systemic circulation. An aortobiiliac stent graft remains in place without evidence of complication. Splanchnic, iliac, and included lower extremity vessels remain widely patent. NON-ANGIOGRAPHIC FINDINGS: Trachea and Airways: Patent without evidence of tracheal or endobronchial lesion. Lungs and Pleura: Clear lungs. No evidence of previous granulomatous exposure again noted. No effusion or pneumothorax. Mediastinum and bronson: No mass or hematoma. No mediastinal or hilar lymphadenopathy. No esophageal abnormality. Partially included thyroid is normal-appearing. Heart: Heart is normal in size. No pericardial effusion. Chest Wall Soft Tissues: Normal. Liver: Normal appearing. Gallbladder: Status post cholecystectomy. Bile ducts: No biliary ductal dilation. Spleen: Normal. Pancreas: Moderately atrophic. Adrenal glands: Normal. Kidneys and ureters: No hydronephrosis, stones, or suspicious masses. Bladder: Normal. Reproductive organs: Unremarkable. Stomach, small bowel, and large bowel: Unremarkable, previous segmental sigmoid resection changes. Appendix: Post appendectomy changes. Peritoneum and retroperitoneum: No ascites or pneumoperitoneum. No omental or mesenteric lesions. Lymph nodes: No enlarged lymph nodes. Abdominal and pelvic wall: Patulous fat-containing right inguinal canal. Bones: No acute abnormalities, no focal osseous lesions. Mild chronic appearing T6 compression deformity unchanged. IMPRESSION: 1. No acute process. 2. Postsurgical and procedural changes with an aortobiiliac stent graft again noted without evidence of aneurysm or acute aortic abnormality. WSN: [id number] Ordering Physician: Blayne Arnold Dictated By: Varghese Penaloza MD Dictated Date/Time: 07/11/22 4:19 pm Reviewed By: Varghese Penaloza MD Signed By: Varghese Penaloza MD Signed Date/Time: 07/11/22 4:19 pm Transcribed By: LOGAN Transcribed Date/Time: 07/11/22 4:07 pm * Exam Date Time Procedure Performing Provider Status 07/11/22 3:20 PM Chest Portable Ruben Blackburn (Verified) Notes: (Chest Portable) Reason For Exam: Chest Pain;Other: RESULT: Chest Portable Chest Portable Hx of Present Illness: CP COMPARISON: CT report 07/03/2022. FINDINGS: LUNGS AND PLEURA: Clear lungs. Normal pulmonary vascularity. No pleural effusion. No pneumothorax. HEART, MEDIASTINUM AND BRONSON: Heart is normal in size. Normal mediastinal and hilar contour. BONES AND SOFT TISSUES: No acute abnormality. IMPRESSION: No acute abnormality. WSN: [id number] Ordering Physician: Blayne Arnold Dictated By: Varghese Penaloza MD Dictated Date/Time: 07/11/22 3:22 pm Reviewed By: Varghese Penaloza MD Signed By: Varghese Penaloza MD Signed Date/Time: 07/11/22 3:22 pm Transcribed By: LOGAN Transcribed Date/Time: 07/11/22 3:21 pm Vital Signs Most recent to oldest [Reference Range]: 1 2 3 Oxygen Saturation [94-100 %] 100 % (07/11/22 7:51 PM) 100 % (07/11/22 5:57 PM) 100 % (07/11/22 2:48 PM) Pulse Rate [55-90 bpm] 85 bpm (07/11/22 7:51 PM) 76 bpm (07/11/22 5:57 PM) 83 bpm (07/11/22 2:48 PM) Blood Pressure [90-138/55-84 mm Hg] 117/68mm Hg (07/11/22 7:51 PM) 103/68mm Hg (07/11/22 5:57 PM) 118/80mm Hg (07/11/22 2:48 PM) Respiratory Rate [16-30 br/min] 16 br/min (07/11/22 7:51 PM) 15 br/min *L* (07/11/22 5:57 PM) 13 br/min *L* (07/11/22 5:14 PM) Temperature [96.8-100.4 DegF] 97.6 DegF (07/11/22 7:51 PM) 98.4 DegF (07/11/22 5:57 PM) 98.3 DegF (07/11/22 2:24 PM) Mode of Delivery (Oxygen) Room air (07/11/22 7:51 PM) Room air (07/11/22 5:57 PM) Room air (07/11/22 2:48 PM) Blood pressure sites Arm, left (07/11/22 7:51 PM) Arm, left (07/11/22 5:57 PM) Arm, left (07/11/22 2:48 PM) Temperature Route Oral (07/11/22 7:51 PM) Oral (07/11/22 5:57 PM) Oral (07/11/22 2:24 PM) Social History Social History Type Response Smoking Status Never (less than 100 in lifetime) entered on: 10/25/21 Sex EKG study * Event Display: ECG 12-Lead Authored Date: Please click on pdf link to open report * Event Display: ECG 12-Lead Authored Date: Ventricular Rate: 82 BPM Atrial Rate: 82 BPM P-R Interval: 138 ms QRS Duration: 88 ms Q-T Interval: 390 ms QTC Calculation(Bazett): 455 ms P [place]: 3 degrees R [place]: 51 degrees T [place]: 19 degrees Normal sinus rhythm Nonspecific T wave abnormality Abnormal ECG Confirmed by RERE WEEKS ([id number]) on 07/11/2022 5:02:02 PM [place]: RERE WEEKS Portable XR Chest Views * BHSPowereduinribe , CIS S: TRANSCRIBE Varghese Penaloza MD: VERIFY Event Display: Result: Authored Date: Chest Portable Hx of Present Illness: CP COMPARISON: CT report 07/03/2022. FINDINGS: LUNGS AND PLEURA: Clear lungs. Normal pulmonary vascularity. No pleural effusion. No pneumothorax. HEART, MEDIASTINUM AND BRONSON: Heart is normal in size. Normal mediastinal and hilar contour. BONES AND SOFT TISSUES: No acute abnormality. IMPRESSION: No acute abnormality. WSN: [id number] Ordering Physician: Blayne Arnold Dictated By: Varghese Penaloza MD Dictated Date/Time: 07/11/22 3:22 pm Reviewed By: Varghese Penaloza MD Signed By: Varghese Penaloza MD Signed Date/Time: 07/11/22 3:22 pm Transcribed By: LOGAN Transcribed Date/Time: 07/11/22 3:21 pm CTA Abdominal vessels and Pelvis vessels W contrast IV * SILASSPowereduinribe , CIS S: TRANSCVarghese Wilkerson MD: VERIFY Event Display: Result: Authored Date: [id number] EXAMINATION: CT Angio Chest, CT Angio Abdomen and Pelvis INDICATION: Hx of Present Illness: CP that started overnight; Clinical Question(s): Other:; AAA; TECHNIQUE: Spiral CTA of the chest was performed after rapid IV contrast administration without cardiac gating triggered by an HOLLY on the aorta. Images are formatted in multiple planes using 2-D multiplanar and 3-D maximum intensity projection. 100 cc of Omnipaque 300 was administered intravenously. Weight-based protocol using automatic tube modulation was used to optimize exposure parameters. CTDIvol Body: 9.93 mGy, DLP Body: 1007 mGy*cm. COMPARISONS: 07/03/2022. ANGIOGRAPHIC FINDINGS: Normal-appearing thoracic aorta and three-vessel arch. No aneurysm or acute aortic abnormality seen on this study performed without cardiac gating. No evidence of a pulmonary embolism on this examination tailored to the systemic circulation. An aortobiiliac stent graft remains in place without evidence of complication. Splanchnic, iliac, and included lower extremity vessels remain widely patent. NON-ANGIOGRAPHIC FINDINGS: Trachea and Airways: Patent without evidence of tracheal or endobronchial lesion. Lungs and Pleura: Clear lungs. No evidence of previous granulomatous exposure again noted. No effusion or pneumothorax. Mediastinum and bronson: No mass or hematoma. No mediastinal or hilar lymphadenopathy. No esophageal abnormality. Partially included thyroid is normal-appearing. Heart: Heart is normal in size. No pericardial effusion. Chest Wall Soft Tissues: Normal. Liver: Normal appearing. Gallbladder: Status post cholecystectomy. Bile ducts: No biliary ductal dilation. Spleen: Normal. Pancreas: Moderately atrophic. Adrenal glands: Normal. Kidneys and ureters: No hydronephrosis, stones, or suspicious masses. Bladder: Normal. Reproductive organs: Unremarkable. Stomach, small bowel, and large bowel: Unremarkable, previous segmental sigmoid resection changes. Appendix: Post appendectomy changes. Peritoneum and retroperitoneum: No ascites or pneumoperitoneum. No omental or mesenteric lesions. Lymph nodes: No enlarged lymph nodes. Abdominal and pelvic wall: Patulous fat-containing right inguinal canal. Bones: No acute abnormalities, no focal osseous lesions. Mild chronic appearing T6 compression deformity unchanged. IMPRESSION: 1. No acute process. 2. Postsurgical and procedural changes with an aortobiiliac stent graft again noted without evidence of aneurysm or acute aortic abnormality. WSN: [id number] Ordering Physician: Blayne Arnold Dictated By: Varghese Penaloza MD Dictated Date/Time: 07/11/22 4:19 pm Reviewed By: Varghese Penaloza MD Signed By: Varghese Penaloza MD Signed Date/Time: 07/11/22 4:19 pm Transcribed By: LOGAN Transcribed Date/Time: 07/11/22 4:07 pm CTA Chest vessels W contrast IV * BHSPowerscribe , CIS S: TRANSCRIBE Varghese Penaloza MD: VERIFY Event Display: Result: Authored Date: EXAMINATION: CT Angio Chest, CT Angio Abdomen and Pelvis INDICATION: Hx of Present Illness: CP that started overnight; Clinical Question(s): Other:; AAA; TECHNIQUE: Spiral CTA of the chest was performed after rapid IV contrast administration without cardiac gating triggered by an HOLLY on the aorta. Images are formatted in multiple planes using 2-D multiplanar and 3-D maximum intensity projection. 100 cc of Omnipaque 300 was administered intravenously. Weight-based protocol using automatic tube modulation was used to optimize exposure parameters. CTDIvol Body: 9.93 mGy, DLP Body: 1007 mGy*cm. COMPARISONS: 07/03/2022. ANGIOGRAPHIC FINDINGS: Normal-appearing thoracic aorta and three-vessel arch. No aneurysm or acute aortic abnormality seen on this study performed without cardiac gating. No evidence of a pulmonary embolism on this examination tailored to the systemic circulation. An aortobiiliac stent graft remains in place without evidence of complication. Splanchnic, iliac, and included lower extremity vessels remain widely patent. NON-ANGIOGRAPHIC FINDINGS: Trachea and Airways: Patent without evidence of tracheal or endobronchial lesion. Lungs and Pleura: Clear lungs. No evidence of previous granulomatous exposure again noted. No effusion or pneumothorax. Mediastinum and bronson: No mass or hematoma. No mediastinal or hilar lymphadenopathy. No esophageal abnormality. Partially included thyroid is normal-appearing. Heart: Heart is normal in size. No pericardial effusion. Chest Wall Soft Tissues: Normal. Liver: Normal appearing. Gallbladder: Status post cholecystectomy. Bile ducts: No biliary ductal dilation. Spleen: Normal. Pancreas: Moderately atrophic. Adrenal glands: Normal. Kidneys and ureters: No hydronephrosis, stones, or suspicious masses. Bladder: Normal. Reproductive organs: Unremarkable. Stomach, small bowel, and large bowel: Unremarkable, previous segmental sigmoid resection changes. Appendix: Post appendectomy changes. Peritoneum and retroperitoneum: No ascites or pneumoperitoneum. No omental or mesenteric lesions. Lymph nodes: No enlarged lymph nodes. Abdominal and pelvic wall: Patulous fat-containing right inguinal canal. Bones: No acute abnormalities, no focal osseous lesions. Mild chronic appearing T6 compression deformity unchanged. IMPRESSION: 1. No acute process. 2. Postsurgical and procedural changes with an aortobiiliac stent graft again noted without evidence of aneurysm or acute aortic abnormality. WSN: [id number] Ordering Physician: Blayne Arnold Dictated By: Varghese Penaloza MD Dictated Date/Time: 07/11/22 4:19 pm Reviewed By: Vagrhese Penaloza MD Signed By: Varghese Penaloza MD Signed Date/Time: 07/11/22 4:19 pm Transcribed By: LOGAN Transcribed Date/Time: 07/11/22 4:07 pm Patient Care team information Care Team Personnel Name: Joaquina Jerome RN Position: [facility] RN Member Role: Primary Care Nurse Name: Joselyn Sevilla RN Position: [facility] RN Member Role: Primary Care Nurse Name: Thomas Bright Position: [facility] Outreach Member Role: PCP Address: Address: [address] [place] [address] Name: Karmen Mandujano RN Position: [facility] Rad RN Member Role: Primary Care Nurse Name: Margie Castanon RN Position: [facility] RN Member Role: Primary Care Nurse Name: Shahbaz Castaneda RN Position: [facility] RN Member Role: Primary Care Nurse Name: Justin Dailey MD Position: [facility] Infectious Disease MD Member Role: Lifetime Consulting Physician Address: Address: [address] [place] [address] Infectious [address] Name: Veronica Davila RN Position: [facility] RN Member Role: Primary Care Nurse Name: Melva Herndon RN Position: [facility] RN Member Role: Primary Care Nurse Name: Karena Penaloza RN Position: [facility] RN Member Role: Primary Care Nurse Name: Fang Adams RN Position: [facility] Account Retention Representative Member Role: Primary Care Nurse Name: Karri Jaramillo RN Position: [facility] RN Member Role: Primary Care Nurse Name: Consuelo Alvarenga RN Position: [facility] RN Member Role: Primary Care Nurse Name: Veronica Blanco RN Position: [facility] DANIELLEO RN Member Role: Primary Care Nurse Name: Ramsey Perez RN Position: [facility] RN Member Role: Primary Care Nurse Name: Lazaro Huffman RN Position: [facility] RN Member Role: Primary Care Nurse Name: Jacquelyn Juarez Position: [facility] RN Member Role: Primary Care Nurse Name: Jacquelyn Ramsey RN Position: [facility] RN Member Role: Primary Care Nurse Name: Jennifer Ghosh RN Position: [facility] RN Member Role: Primary Care Nurse Name: Qiana Mansfield RN Position: [facility] RN Member Role: Primary Care Nurse Name: Chuyita Ashley RN Position: [facility] RN Member Role: Primary Care Nurse Name: Elle Blackwood RN Position: [facility] Account Retention Representative Member Role: Primary Care Nurse Name: Yamilex Arteaga RN Position: [facility] RN Member Role: Primary Care Nurse Name: Skip Harry RN Position: [facility] RN Member Role: Primary Care Nurse Name: Valentine Perrin RN Position: [facility] RN Member Role: Primary Care Nurse Name: Mark Howell RN Position: [facility] RN Member Role: Primary Care Nurse Name: Elaine Webb RN Position: [facility] RN Member Role: Primary Care Nurse Name: Stephanie Houser RN Position: [facility] RN Member Role: Primary Care Nurse Name: Amber Gu RN Position: [facility] RN Member Role: Primary Care Nurse Name: Reji Zimmerman Jr Position: [facility] ED RN W/OE and Tasks Member Role: Primary Care Nurse Name: Dang Padilla RN Position: [facility] RN Member Role: Primary Care Nurse Name: Scot Anderson RN Position: [facility] RN Member Role: Primary Care Nurse Name: Luz Marina Byrd RN Position: [facility] RN Member Role: Primary Care Nurse Name: Joelle Sandoval RN Position: [facility] RN Member Role: Primary Care Nurse Name: Gideon Diaz RN Position: [facility] RN Member Role: Primary Care Nurse Name: Diana Anderson RN Position: [facility] RN Member Role: Primary Care Nurse Name: Thomas Betancur RN Position: [facility] RN Member Role: Primary Care Nurse Name: Vee Mcnamara RN Position: [facility] Account Retention Representative Member Role: Primary Care Nurse Name: Nisreen Greenberg RN Position: [facility] Outreach Member Role: Primary Care Nurse Name: Lanny Bolton RN Position: [facility] RN Member Role: Primary Care Nurse Name: Anthony Carolina RN Position: [facility] RN Member Role: Primary Care Nurse Name: Ana Dupont RN Position: [facility] RN Member Role: Primary Care Nurse Name: Alyssia Durbin RN Position: [facility] RN Member Role: Primary Care Nurse Name: Afshan Galeano RN Position: [facility] RN Member Role: Primary Care Nurse Name: Reji Bright RN Position: [facility] RN Member Role: Primary Care Nurse Name: Estefanía Austin RN Position: [facility] RN Member Role: Primary Care Nurse Name: Sarah Carson RN Position: [facility] RN Member Role: Primary Care Nurse Name: Amira Hughes RN Position: [facility] RN Member Role: Primary Care Nurse Name: Chiquis Callejas RN Position: [facility] Onco RN Member Role: Primary Care Nurse Name: Linda Rajput RN, I Position: [facility] RN Member Role: Primary Care Nurse Name: KizzyHernando Zhu Attending Position: [facility] ED Medicine MD Name: Blayne Arnold MD Position: [facility] Resident Member Role: ED Resident Address: Address: [address] [place] [address] Emergency Medicine [place], [place] [address] Name: Dada Cedeño Position: [facility] ED TA [facility] Member Role: Church Organist Name: Marlon Kimbrough RN Position: [facility] ED RN W/OE and Tasks Member Role: Patient Care Provider Care Team Related Persons Name: SHAHBAZ MEADOWS Address: [address] [place] [address] Name: YOANDY TAYLOR Address: home [address] [address]
--- OUTSIDE RECORDS SUMMARY | 2023-02-21 14:47 | XMS_ITS | Continuity of Care Document ---
Author Name Unknown Organization [facility] Address [address] [place] [address]- Care Team Providers Care Transportation Supervisor Name Role Phone Thomas Bright Primary Care Physician Encounter [facility] [place] Date(s): 12/01/20 - 12/01/[address] [address]- Discharge Disposition: A-D/C Home Attending Physician: Jeanette Vazquez MD Admitting Physician: Jeanette Vazquez MD Referring Physician: Not on Staff, Referring MD Allergies, Adverse Reactions, Alerts Substance Reaction Severity Status Lamictal Hives, itch Active Tegretol Hallucinations, aggression A ctive Tylenol itching Active Lobster Persistent Severe Active Percocet 7.5/325 1 C/O: itching Active influenza virus vaccine, inactivated 2 Active traMADol Active oxyCODONE Persistent Mild Active 1makes pt itchy 2Hx of Guillain - [place] Immunizations Given and Recorded Vaccine Date Status Refusal Reason pneumococcal 23-valent vaccine 02/03/17 Given Not Given Vaccine Date Status Refusal Reason pneumococcal 23-valent vaccine 01/25/17 Not Given Patient Refuses Medications aspirin 81 mg oral delayed release tablet See Instructions, ALY WEBB [place]OS [place], # 30 tablet, 1 Refills, Maintenance, [id number], 175, cm, 02/26/20 14:11:00 EDT, Height, 87.5, kg, 02/26/20 14:11:00 EDT, Dry Weight Start Date: 04/12/20 Status: Ordered atorvastatin 80 mg oral tablet 1 tablet = 80 mg, By Mouth, Daily, # 30 tablet, 0 Refills, Maintenance, Tablet, Route to Pharmacy Electronically, [id number], [facility] Start Date: 04/02/18 Stop [...] EDT, Supply Start Date: 04/06/20 Status: Ordered diclofenac 1% topical gel = 2 Gm, Topically, 4 times a day, Apply to the peft popliteal fossa, knee and other affected area, # 240 Gm, 0 Refills, Maintenance, 10/22/20 8:48:00 EST, Gel, [facility]/pharmacy #[id number], Partial fill upon patient request if the prescription is for a schedule... Start Date: 10/22/20 Status: Ordered enoxaparin 80 mg/0.8 mL injectable solution 0.9 mL = 90 mg, Subcutaneous Injection, Every 12 hours, please stop when INR 2- 3, PCP/VNA will be closely monitoring, # 18 mL, 0 Refills, Maintenance, 10/29/20 9:12:00 EST, Injection, [id number], Partial fill upon patient request if the presc... Start Date: 10/29/20 Stop Date: 11/08/20 Status: Ordered famotidine 20 mg oral tablet TOME DOS TABLETAS POR VIA ORAL TODOS [place] Start Date: 06/16/20 Status: Ordered ferrous sulfate 325 mg oral enteric coated tablet 325 mg, By Mouth, Daily, # 30 capsule, Refills 1, Tot. Refills 1, Maintenance, 10/22/20 8:48:00 EST, Route to Pharmacy Electronically, [id number], Partial fill upon patient request if the prescription is for a schedule II opioid drug., 175, cm... Start Date: 10/22/20 Status: Ordered glyBURIDE 2.5 mg oral tablet 2.5 mg, 1, tablet, By Mouth, Daily, # 30 tablet, Refills 0, Maintenance, 12/23/18 19:28:34 EDT Start Date: 12/23/18 Status: Ordered Isentress HD 600 mg oral tablet 1 tab, By Mouth, Daily, 0 Refills, Maintenance, 07/30/17 8:20:04 EST Start Date: 07/30/17 Status: Ordered levothyroxine 25 mcg (0.025 mg) oral capsule 1 capsule = 25 mcg, By Mouth, Daily, # 30 capsule, 0 Refills, Maintenance, 10/12/20 23:33:00 EST, Capsule, Partial fill upon patient request if the prescription is for a schedule II opioid drug. Start Date: 10/12/20 Status: Ordered pantoprazole 40 mg oral delayed [...] tablet = 10 mg, By Mouth, Daily, # 7 tablet, 0 Refills, Maintenance, 10/29/20 9:13:00 EST, Tablet, [facility]/pharmacy #[id number], Partial fill upon patient request if the prescription is for a schedule II opioid drug., 175, cm, 10/28/20 10:07:00 EST, Height, 8... 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 Hematoma of leg(Confirmed) Active HIV disease(Confirmed) 2003 Active Hypercholesterolemia(Confirmed) 2006 Active HLD (hyperlipidemia)(Confirmed) Active HTN (hypertension)(Confirmed) Active Hypothyroidism(Confirmed) Active Skin infection(Confirmed) Active PVD (peripheral vascular disease)(Confirmed) Active 1sequelae, left sided weakness Results Orders for Microbiology Reports Name Date Stool Culture 12/01/20 Microbiology Reports TEST:Stool Culture STATUS:Unauthenticated BODY SITE: SOURCE:STOOL COLLECTED DATE/TIME:12/01/20 10:25 AM Stool Culture SPECIMEN DESCRIPTION : STOOL IN [facility] PRESERVATIVE SPECIAL REQUESTS : NONE REPORT STATUS : PRELIMINARY REPORT Vital Signs Most recent to oldest [Reference Range]: 1 2 3 Oxygen Saturation [94-100 %] 96 % (12/01/20 2:00 PM) 98 % (12/01/20 1:29 PM) 99 % (12/01/20 12:28 PM) Pulse Rate [55-90 bpm] 73 bpm (12/01/20 2:00 PM) 73 bpm (12/01/20 1:29 PM) 83 bpm (12/01/20 12:28 PM) Blood Pressure [90-138/55-84 mm Hg] 114/77mm Hg (12/01/20 2:00 PM) 116/78mm Hg (12/01/20 1:29 PM) 122/82mm Hg (12/01/20 12:28 PM) Respiratory Rate [16-30 br/min] 18 br/min (12/01/20 2:00 PM) 18 br/min (12/01/20 1:29 PM) 18 br/min (12/01/20 12:28 PM) Temperature [96.8-100.4 DegF] 97.7 DegF (12/01/20 8:18 AM) Mode of Delivery (Oxygen) Room air (12/01/20 2:00 PM) Room air (12/01/20 1:29 PM) Room air (12/01/20 12:28 PM) Temperature Route Oral (12/01/20 8:18 AM) Social History Social History Type Response Smoking Status Former smoker; Tobac co user in household: No; Type: Cigarettes; Other: quit in july 2016; Tobacco use times per day: half pack per day; Started at age: 11; entered on: 05/29/18 Sex
--- OUTSIDE RECORDS SUMMARY | 2023-02-21 14:47 | XMS_ITS | Continuity of Care Document ---
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 Name Role Phone Thomas Bright Primary Care Physician [phone] Encounter [facility] [place] Date(s): 03/02/22 - 03/03/[address] [address]- Discharge Disposition: A-D/C Home Attending Physician: Drew Ochoa MD Admitting Physician: Drew Ochoa MD Referring Physician: Not on Staff, Referring MD Allergies, Adverse Reactions, Alerts Substance Reaction Severity Status Lamictal Hives, itch Active Tegretol Hallucinations, aggression A ctive Tylenol itching Active Lobster Persistent Severe Active Percocet 7.5/325 1 C/O: itching Active influenza virus vaccine, inactivated 2 Active traMADol Active oxyCODONE Persistent Mild Active 1makes pt itchy 2Hx of Guillain - [place] Immunizations Given and Recorded Vaccine Date Status Refusal Reason pneumococcal 23-valent vaccine 02/03/17 Given Not Given Vaccine Date Status Refusal Reason pneumococcal 23-valent vaccine 01/25/17 Not Given Patient Refuses Medications atorvastatin 80 mg oral tablet 1 tablet = 80 mg, By Mouth, Daily, # 30 tablet, 0 Refills, Maintenance, Tablet, Route to Pharmacy Electronically, [id number], [facility] Start Date: [...] Moderate, and SBP greater than 100, Routine, 03/02/22 18:00:00 EDT, Stop date Limited # of times Start Date: 03/02/22 Stop Date: 03/03/22 Status: Discontinued ondansetron 4 mg oral tablet, disintegrating 1 tablet = 4 mg, By Mouth, Every 8 hours, PRN Nausea & Vomiting, # 9 tablet, 0 Refills, Maintenance, 02/22/22 14:58:00 EDT, Tablet, [facility]/pharmacy #[id number], Partial fill upon patient request if the prescription is for a schedule II opioid drug., 175, cm, 0... 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 Hematoma of leg(Confirmed) Active HIV disease(Confirmed) 2002 Active HLD (hyperlipidemia)(Confirmed) Active HTN (hypertension)(Confirmed) Active Hypothyroidism(Confirmed) Active Skin infection(Confirmed) Active PVD (peripheral vascular disease)(Confirmed) Active 1sequelae, left sided weakness Results Radiology Reports * Exam Date Time Procedure Performing Provider Status 03/02/22 11:55 AM Chest 2 Views Frontal and Lat Alicia Castellano; Auth (Verified) Notes: (Chest 2 Views Frontal and Lat) Reason For Exam: Chest Pain;Other: RESULT: Chest 2 Views Frontal and Lat Chest 2 Views Frontal and Lat Hx of Present Illness: pt c o laureen lower ext pain x 8 months pt has DVT to right lower ext on pradaxa pt states midsternal chest pain for couple days pt states fever and chills a few days ago tested neg for COVID. pt denies any SOB; Reason: Other:; Chest Pain; Clinical Question(s): Other: COMPARISON: 02/02/2022 FINDINGS: LINES AND TUBES: None. LUNGS AND PLEURA: Clear lungs. Normal pulmonary vascularity. No pleural effusion. No pneumothorax. HEART, MEDIASTINUM AND [place]: Heart is normal in size. Normal upper mediastinal and hilar contour. BONES AND SOFT TISSUES: No acute abnormality. IMPRESSION: No acute abnormality. WSN: [id number] Ordering Physician: Anthony Herrera Dictated By: Michael Castillo MD Dictated Date/Time: 03/02/22 1:08 pm Reviewed By: Michael Castillo MD Signed By: Michael Castillo MD Signed Date/Time: 03/02/22 1:08 pm Transcribed By: LOGAN Transcribed Date/Time: 03/02/22 12:34 pm Vital Signs Most recent to oldest [Reference Range]: 1 2 3 Oxygen Saturation [94-100 %] 98 % (03/03/22 12:06 AM) 98 % (03/02/22 7:20 PM) 99 % (03/02/22 5:05 PM) Pulse Rate [55-90 bpm] 79 bpm (03/03/22 12:06 AM) 80 bpm (03/02/22 7:20 PM) 75 bpm (03/02/22 5:05 PM) Blood Pressure [90-138/55-84 mm Hg] 121/78mm Hg (03/03/22 12:06 AM) 119/72mm Hg (03/02/22 7:20 PM) 139/120mm Hg *H* (03/02/22 5:05 PM) Respiratory Rate [16-30 br/min] 16 br/min (03/03/22 12:06 AM) 18 br/min (03/02/22 9:52 PM) 18 br/min (03/02/22 7:50 PM) Temperature [96.8-100.4 DegF] 98.1 DegF (03/02/22 7:20 PM) 98.0 DegF (03/02/22 5:05 PM) 98.6 DegF (03/02/22 2:34 PM) Mode of Delivery (Oxygen) Room air (03/03/22 12:06 AM) Room air (03/02/22 7:20 PM) Room air (03/02/22 5:05 PM) Blood pressure sites Arm, right (03/03/22 12:06 AM) Arm, left (03/02/22 7:20 PM) Arm, left (03/02/22 5:05 PM) Temperature Route Oral (03/02/22 7:20 PM) Oral (03/02/22 5:05 PM) Oral (03/02/22 2:34 PM) Social History Social History Type Response Smoking Status Never (less than 100 in lifetime) entered on: 10/25/21 Sex
--- OUTSIDE RECORDS SUMMARY | 2023-02-21 14:47 | XMS_ITS | Continuity of Care Document ---
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 [address] [place], [place] [address] Allergies, Adverse Reactions, Alerts Substance Reaction Severity Status Lamictal Hives, itch Active Tegretol Hallucinations, aggression A ctive Tylenol itching Active Lobster Persistent Severe Active Percocet 7.5/325 1 C/O: itching Active influenza virus vaccine, inactivated 2 Active traMADol Active oxyCODONE Persistent Mild Active 1makes pt itchy 2Hx of Guillain - [place] Immunizations Given and Recorded Vaccine Date Status Refusal Reason pneumococcal 23-valent vaccine 02/03/17 Given Not Given Vaccine Date Status Refusal Reason pneumococcal 23-valent vaccine 01/25/17 Not Given Patient Refuses Medications atorvastatin 80 mg oral tablet 1 tablet = 80 mg, By Mouth, Daily at bedtime, # 30 tablet, 0 Refills, Maintenance, Tablet, Route toPharmacy Electronically, [id number], [facility] Start Date: 04/02/18 Stop [...] Active GERD (gastroesophageal reflux disease) Confirmed Active Guillain-[place] syndrome 1 Confirmed Active Hematoma of leg Confirmed Active HIV disease Confirmed 2002 Active HLD (hyperlipidemia) Confirmed Active HTN (hypertension) Confirmed Active Hypothyroidism Confirmed Active Skin infection Confirmed Active PVD (peripheral vascular disease) Confirmed Active 1sequelae, left sided weakness Social History Social History Type Response Smoking Status Never (less than 100 in lifetime) entered on: 10/25/21 Sex Patient Care team information Care Team Personnel Name: Joaquina Jerome RN Position: [facility] RN Member Role: Primary Care Nurse Name: Joselyn Sevilla RN Position: [facility] RN Member Role: Primary Care Nurse Name: Thomas Bright Position: [facility] Outreach Member Role: PCP Address: Address: [address] [place] [address] Name: Karmen Mandujano RN Position: [facility] Anjel RN Member Role: Primary Care Nurse Name: Margie Castanon RN Position: [facility] RN Member Role: Primary Care Nurse Name: Shahbaz Castaneda RN Position: [facility] RN Member Role: Primary Care Nurse Name: Justin Dailey MD Position: [facility] Infectious Disease MD Member Role: Lifetime Consulting Physician Address: Address: [address] [place] [address] [place] [address]- Name: Sophia Bell RN Position: [facility] RN Member Role: Primary Care Nurse Name: Veronica Davila RN Position: [facility] RN Member Role: Primary Care Nurse Name: Melva Herndon RN Position: [facility] RN Member Role: Primary Care Nurse Name: Karena Penaloza RN Position: [facility] RN Member Role: Primary Care Nurse Name: Fang Adams RN Position: [facility] Crossword Puzzle Maker Member Role: Primary Care Nurse Name: Karri Jaramillo RN Position: [facility] RN Member Role: Primary Care Nurse Name: Consuelo Alvarenga RN Position: [facility] RN Member Role: Primary Care Nurse Name: Veronica Blanco RN Position: [facility] PCO RN Member Role: Primary Care Nurse Name: Ramsey Perez RN Position: [facility] RN Member Role: Primary Care Nurse Name: Lazaro Huffman RN Position: [facility] RN Member Role: Primary Care Nurse Name: Jacquelyn Juarez Position: [facility] RN Member Role: Primary Care Nurse Name: Jacquelyn Ramsey RN Position: [facility] RN Member Role: Primary Care Nurse Name: Jennifer Ghosh RN Position: [facility] RN Member Role: Primary Care Nurse Name: Qiana Mansfield RN Position: [facility] RN Member Role: Primary Care Nurse Name: Chuyita Ashley RN Position: [facility] RN Member Role: Primary Care Nurse Name: Elle Blackwood RN Position: [facility] Crossword Puzzle Maker Member Role: Primary Care Nurse Name: Yamilex Arteaga RN Position: [facility] RN Member Role: Primary Care Nurse Name: Skip Harry RN Position: [facility] RN Member Role: Primary Care Nurse Name: Valentine Perrin RN Position: [facility] RN Member Role: Primary Care Nurse Name: Mark Howell RN Position: [facility] RN Member Role: Primary Care Nurse Name: Elaine Webb RN Position: [facility] RN Member Role: Primary Care Nurse Name: Stephanie Houser RN Position: [facility] RN Member Role: Primary Care Nurse Name: Amber Gu RN Position: [facility] RN Member Role: Primary Care Nurse Name: Reji Zimmerman Jr Position: [facility] JUSTYNA RN W/OE and Tasks Member Role: Primary Care Nurse Name: Dang Padilla RN Position: [facility] RN Member Role: Primary Care Nurse Name: Scot Anderson RN Position: [facility] RN Member Role: Primary Care Nurse Name: Luz Marina Byrd RN Position: [facility] RN Member Role: Primary Care Nurse Name: Joelle Sandoval RN Position: [facility] RN Member Role: Primary Care Nurse Name: Gideon Diaz RN Position: [facility] RN Member Role: Primary Care Nurse Name: Diana Anderson RN Position: [facility] RN Member Role: Primary Care Nurse Name: Thomas Betancur RN Position: [facility] RN Member Role: Primary Care Nurse Name: Vee Mcnamara RN Position: [facility] Crossword Puzzle Maker Member Role: Primary Care Nurse Name: Nisreen Greenberg RN Position: [facility] Outreach Member Role: Primary Care Nurse Name: Lanny Bolton RN Position: [facility] RN Member Role: Primary Care Nurse Name: Anthony Carolina RN Position: [facility] RN Member Role: Primary Care Nurse Name: Ana Dupont RN Position: [facility] RN Member Role: Primary Care Nurse Name: Alyssia Durbin RN Position: [facility] RN Member Role: Primary Care Nurse Name: Afshan Galeano RN Position: [facility] SN RN Member Role: Primary Care Nurse Name: Reji Bright RN Position: [facility] RN Member Role: Primary Care Nurse Name: Estefanía Austin RN Position: [facility] RN Member Role: Primary Care Nurse Name: Sarah Carson RN Position: [facility] RN Member Role: Primary Care Nurse Name: Amira Hughes RN Position: [facility] RN Member Role: Primary Care Nurse Name: Rina Dunlap LPN Position: [facility] RN Member Role: Primary Care Nurse Name: Chiquis Callejas RN Position: [facility] Onco RN Member Role: Primary Care Nurse Name: Linda Rajput RN, I Position: [facility] RN Member Role: Primary Care Nurse Care Team Related Persons Name: SHAHBAZ MEADOWS Address: [address] [place] [address] Name: YOANDY TAYLOR Address: home [address] [address]
--- OUTSIDE RECORDS SUMMARY | 2023-02-21 14:47 | XMS_ITS | Continuity of Care Document ---
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 Role Phone Thomas Bright Primary Care Physician Encounter [facility] [place] Date(s): 06/23/22 - 06/30/22 [facility] [address] [place], [place] [address] Attending Physician: Anselmo Mendieta MD Admitting Physician: Anselmo Mendieta MD Referring Physician: Thomas Bright Allergies, Adverse Reactions, Alerts Substance Reaction Severity Status Lamictal Hives, itch Active Tegretol Hallucinations, aggression A ctive Tylenol itching Active Lobster Persistent Severe Active Percocet 7.5/325 1 C/O: itching Active influenza virus vaccine, inactivated 2 Active traMADol Active oxyCODONE Persistent Mild Active 1makes pt itchy 2Hx of Guillain - [place] Immunizations Given and Recorded Vaccine Date Status Refusal Reason pneumococcal 23-valent vaccine 02/03/17 Given Not Given Vaccine Date Status Refusal Reason pneumococcal 23-valent vaccine 01/25/17 Not Given Patient Refuses Medications atorvastatin 80 mg oral tablet 1 tablet = 80 mg, By Mouth, Daily at bedtime, # 30 tablet, 0 Refills, Maintenance, Tablet, Route toPharmacy Electronically, [id number], [facility] Start Date: 04/02/18 Stop [...] 1 Refills, Maintenance, 05/20/22 14:26:00 EDT, Tablet, [facility] #[id number], Partialfill upon patient request if the [...] EDT, So... Start Date: 06/02/22 Status: Ordered pantoprazole 40 mg oral delayed [...] Active GERD (gastroesophageal reflux disease) Confirmed Active Guillain-[place] syndrome 1 Confirmed Active Hematoma of leg Confirmed Active HIV disease Confirmed 2002 Active HLD (hyperlipidemia) Confirmed Active HTN (hypertension) Confirmed Active Hypothyroidism Confirmed Active Skin infection Confirmed Active PVD (peripheral vascular disease) Confirmed Active 1sequelae, left sided weakness Vital Signs Most recent to oldest [Reference Range]: 1 Height 175 cm (06/23/22 2:08 PM) Weight 78.89 kg (06/23/22 2:08 PM) Pulse Rate [55-90 bpm] 96 bpm *H* (06/23/22 2:08 PM) Body Mass Index [18.5-24.99 kg/m2] 25.76 kg/m2 *H* (06/23/22 2:08 PM) Blood Pressure [90-138/55-84 mm Hg] 100/ 50mm Hg (06/23/22 2:08 PM) Blood pressure sites Arm, right (06/23/22 2:08 PM) Weight Obtained Via Patient/family state d (06/23/22 2:08 PM) Social History Social History Type Response Smoking Status Never (less than 100 in lifetime) entered on: 10/25/21 Sex Patient Care team information Personnel Name: Thomas Bright Address: Address: [address] [place] [address]
--- OUTSIDE RECORDS SUMMARY | 2023-02-21 14:47 | XMS_ITS | Continuity of Care Document ---
Author Name Unknown Organization [facility] Address [address] [place] [address]- Care Team Providers Care Life Skills Instructor Name Role Phone Thomas Bright Primary Care Physician Encounter [facility] [place] Date(s): 03/16/21 - 03/17/[address] [address]- Encounter Diagnosis Back pain(Final) - 03/17/21 Epigastric pain(Final) - 03/17/21 Abdominal pain(Final) - 03/17/21 Discharge Disposition: A-D/C Home Attending Physician: Barrett Figueroa MD Admitting Physician: Barrett Figueroa MD Referring Physician: Not on Staff, Referring MD Allergies, Adverse Reactions, Alerts Substance Reaction Severity Status Lamictal Hives, itch Active Tegretol Hallucinations, aggression A ctive Lobster Persistent Severe Active oxyCODONE Persistent Mild Active Tylenol itching Active Percocet 7.5/325 1 C/O: itching Active influenza virus vaccine, inactivated 2 Active traMADol Active 1makes pt itchy 2Hx of Guillain - [place] Immunizations Given and Recorded Vaccine Date Status Refusal Reason pneumococcal 23-valent vaccine 02/03/17 Given Not Given Vaccine Date Status Refusal Reason pneumococcal 23-valent vaccine 01/25/17 Not Given Patient Refuses Medications aluminum hydroxide/magnesium hydroxide/simethicone 200 mg-200 mg-25 mg oral tablet, chewable 1 tablet, Chew, 4 times a day, PRN for control of stomach acid, for 14 days, # 100 tablet, 0 Refills, Acute 03/31/21 6:57:00 EDT, 03/17/21 6:57:00 EDT, Chew Tablet, [facility] #[id number], Partial fill upon patient request if the prescription is for a poppy... Start Date: 03/17/21 Stop Date: 03/31/21 Status: Ordered aspirin 81 mg oral delayed release tablet See Instructions, TOME EMILY TABLETA TODOS [place], # 30 tablet, 1 Refills, Maintenance, [id number], 175, cm, 02/26/20 14:11:00 EDT, Height, 87.5, kg, 02/26/20 14:11:00 EDT, Dry Weight Start Date: 04/12/20 Status: Ordered atorvastatin 80 mg oral tablet 1 tablet = 80 mg, By Mouth, Daily, # 30 tablet, 0 Refills, Maintenance, Tablet, Route to Pharmacy Electronically, [id number], [facility] Start Date: 04/02/18 Stop Date: [...] 0 Refills, Maintenance, 10/22/20 8:48:00 EST, Gel, [id number], Partial fill upon patient request [...] 10/22/20 8:48:00 EST, Route to Pharmacy Electronically, [facility]/pharmacy #[id number], Partial fill upon patient request if [...] opioid drug. Start Date: 10/12/20 Status: Ordered lidocaine 5% topical film 1 patch, Topically, Daily, PRN Pain , Mild, remove after 12 hours, # 30 patch, 0 Refills, Maintenance, 03/17/21 6:56:00 EDT, Film, [facility]/pharmacy #[id number], Partial fill upon patient request if the prescription is for a schedule II opioid drug., 1 patch Top... Start Date: 03/17/21 Stop Date: 04/07/21 Status: Ordered pantoprazole 40 mg oral delayed release tablet 1 tablet = 40 mg, By Mouth, Daily, # 30 tablet, 2 Refills, Maintenance, 04/07/20 14:06:00 EDT, EC Tablet, 175, cm, 02/26/20 14:11:00 EDT, Height, 87.5, kg, 02/26/20 14:11:00 EDT, Dry Weight Start Date: 04/07/20 Status: Ordered pantoprazole 40 mg oral delayed [...] 0 Refills, Maintenance, 10/29/20 9:13:00 EST, Tablet, [facility]/pharmacy #[id number], Partial fill upon patient request if the prescription is for a schedule II opioid drug., 175, cm, 10/28/20 10:07:00 EST, Height, 8... 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 Hematoma of leg(Confirmed) Active HIV disease(Confirmed) 2003 Active Hypercholesterolemia(Confirmed) 2006 Active HLD (hyperlipidemia)(Confirmed) Active HTN (hypertension)(Confirmed) Active Hypothyroidism(Confirmed) Active Skin infection(Confirmed) Active PVD (peripheral vascular disease)(Confirmed) Active 1sequelae, left sided weakness Results Radiology Reports * Exam Date Time Procedure Performing Provider Status 03/17/21 12:43 AM Chest 2 Views Frontal and Lat Raya Malloy; Auth (Verified) Notes: (Chest 2 Views Frontal and Lat) Reason For Exam: Chest Pain;Other: RESULT: Chest 2 Views Frontal and Lat Chest 2 Views Frontal and Lat Hx of Present Illness: Patient comes in with complaints of SOB and Back pain. Started yesterday Pt states had triple AAA surgery five years ago; Reason: Other:; Chest Pain; Clinical Question(s): Other: COMPARISON: 10/28/2020. FINDINGS: LINES AND TUBES: None. LUNGS AND PLEURA: Clear lungs. Normal pulmonary vascularity. No pleural effusion. No pneumothorax. HEART, MEDIASTINUM AND [place]: Heart is normal in size. Normal upper mediastinal and hilar contour. At the inferior aspect of the frontal view of the chest the proximal portion of an abdominal aorticstent graft is seen unchanged. BONES AND SOFT TISSUES: No acute abnormality. No interval change. IMPRESSION: No acute abnormality. WSN: [id number] Ordering Physician: Tia Jovel Dictated By: Francis Rosado MD, V Dictated Date/Time: 03/17/21 7:54 am Reviewed By: Francis Rosado MD, V Signed By: Francis Rosado MD, V Signed Date/Time: 03/17/21 7:54 am Transcribed By: LOGAN Transcribed Date/Time: 03/17/21 7:52 am Vital Signs Most recent to oldest [Reference Range]: 1 2 3 Oxygen Saturation [94-100 %] 99 % (03/17/21 8:23 AM) 98 % (03/17/21 6:17 AM) 98 % (03/17/21 5:40 AM) Pulse Rate [55-90 bpm] 79 bpm (03/17/21 8:23 AM) 61 bpm (03/17/21 6:17 AM) 65 bpm (03/17/21 5:40 AM) Blood Pressure [90-138/55-84 mm Hg] 120/82mm Hg (03/17/21 8:23 AM) 122/87mm Hg (03/17/21 6:17 AM) 119/81mm Hg (03/17/21 5:40 AM) Respiratory Rate [16-30 br/min] 18 br/min (03/17/21 8:23 AM) 16 br/min (03/17/21 6:17 AM) 18 br/min (03/17/21 5:40 AM) Temperature [96.8-100.4 DegF] 98.3 DegF (03/16/21 11:03 PM) Mode of Delivery (Oxygen) Room air (03/17/21 8:23 AM) Room air (03/17/21 5:40 AM) Room air (03/17/21 2:02 AM) Temperature Route Oral (03/16/21 11:03 PM) Social History Social History Type Response Smoking Status Former smoker; Tobac co user in household: No; Type: Cigarettes; Other: quit in july 2016; Tobacco use times per day: half pack per day; Started at age: 11; entered on: 05/29/18 Sex
--- OUTSIDE RECORDS SUMMARY | 2023-02-21 14:47 | XMS_ITS | Continuity of Care Document ---
Author Name Unknown Organization [facility] Address [address] [place] [id number]- Care Team Providers Care Dressmaker Or Tailor Name Role Phone Thomas Bright Primary Care Physician [phone] Encounter [facility] Date(s): 05/31/22 - 06/02/[address] [address] Encounter Diagnosis Chest pain(Final) - 05/31/22 Discharge Disposition: A-D/C Home Attending Physician: Jayy Leonard DO Admitting Physician: Rudy Tavarez MD Referring Physician: Not on Staff, Referring MD Allergies, Adverse Reactions, Alerts Substance Reaction Severity Status Lamictal Hives, itch Active Tegretol Hallucinations, aggression A ctive Tylenol itching Active influenza virus vaccine, inactivated 1 Active oxyCODONE Persistent Mild Active Lobster Persistent Severe Active Percocet 7.5/325 2 C/O: itching Active traMADol Active 1Hx of Guillain - [place] 2makes pt itchy Immunizations Given and Recorded Vaccine Date Status Refusal Reason pneumococcal 23-valent vaccine 02/03/17 Given Not Given Vaccine Date Status Refusal Reason pneumococcal 23-valent vaccine 01/25/17 Not Given Patient Refuses Medications atorvastatin 80 mg oral tablet 1 tablet = 80 mg, By Mouth, Daily at bedtime, # 30 tablet, 0 Refills, Maintenance, Tablet, Route toPharmacy Electronically, [id number], [facility] Start Date: 04/02/18 [...] 1 Refills, Maintenance, 05/20/22 14:26:00 EDT, Tablet, [facility]/pharmacy #[id number], Partialfill upon patient request if the [...] Inj 2 mg, Injection, IV Push Slowly, 06/02/22 5:20:00 EDT Start Date: 06/02/22 Stop Date: 06/02/22 Status: Completed pantoprazole 40 mg oral delayed [...] 05/20/22 14:... Start Date: 05/20/22 Status: Ordered Problem List Condition Confirmation Course Effective Dates Status H ealth Status Informant AAA (abdominal aortic aneurysm) Confirmed Active Abdominal pain Confirmed Active Asthma Confirmed Active Diabetes mellitus Confirmed Active GERD (gastroesophageal reflux disease) Confirmed Active Guillain-[place] syndrome 1 Confirmed Active Hematoma of leg Confirmed Active HIV disease Confirmed 2002 Active HLD (hyperlipidemia) Confirmed Active HTN (hypertension) Confirmed Active Hypothyroidism Confirmed Active Skin infection Confirmed Active PVD (peripheral vascular disease) Confirmed Active 1sequelae, left sided weakness Vital Signs Most recent to oldest [Reference Range]: 1 2 3 Height 175 cm (06/02/22 7:29 AM) 175 cm (06/02/22 3:00 AM) 175 cm (06/01/22 11:22 PM) Weight 77.7 kg (05/31/22 10:00 PM) Oxygen Saturation [94-100 %] 98 % (06/02/22 7:29 AM) 98 % (06/01/22 11:22 PM) 97 % (06/01/22 7:50 PM) Pulse Rate [55-90 bpm] 72 bpm (06/02/22 7:29 AM) 67 bpm (06/02/22 3:00 AM) 71 bpm (06/01/22 11:22 PM) Body Mass Index [18.5-24.99 kg/m2] 25.37 kg/m2 *H* (05/31/22 10:00 PM) Blood Pressure [90-138/55-84 mm Hg] 103/70mm Hg (06/02/22 7:29 AM) 110/70mm Hg (06/02/22 3:00 AM) 110/70mm Hg (06/01/22 11:22 PM) Respiratory Rate [16-30 br/min] 20 br/min (06/02/22 7:29 AM) 18 br/min (06/02/22 5:49 AM) 20 br/min (06/02/22 3:00 AM) Temperature [96.8-100.4 DegF] 97.4 DegF (06/02/22 7:29 AM) 98.1 DegF (06/02/22 3:00 AM) 98.1 DegF (06/01/22 11:22 PM) Mode of Delivery (Oxygen) Room air (06/02/22 7:29 AM) Room air (06/02/22 3:00 AM) Room air (06/01/22 11:22 PM) Blood pressure sites Arm, left (06/02/22 7:29 AM) Arm, right (06/02/22 3:00 AM) Arm, right (06/01/22 11:22 PM) Temperature Route Oral (06/02/22 7:29 AM) Oral (06/02/22 3:00 AM) Oral (06/01/22 11:22 PM) Dry Weight 77.7 kg (05/31/22 10:00 PM) Weight Obtained Via Bed scale (05/31/22 10:00 PM) Social History Social History Type Response Smoking Status Never (less than 100 in lifetime) entered on: 10/25/21 Sex Patient Care team information Personnel Name: Thomas Bright Address: Address: [address] [place] [address]-
--- OUTSIDE RECORDS SUMMARY | 2023-02-21 14:47 | XMS_ITS | Continuity of Care Document ---
Author Name Unknown Organization [facility] Address [address] [place] [address]- Care Team Providers Care Fund Accounting Manager Name Role Phone Thomas Bright Primary Care Physician [place] [facility] [place] Date(s): 01/04/21 - 01/04/[address] [address]- Encounter Diagnosis Leg pain(Final) - 01/04/21 Discharge Disposition: A-D/C Home Attending Physician: Dung Pichardo MD Admitting Physician: Dung Pichardo MD Referring Physician: Not on Staff, Referring MD Allergies, Adverse Reactions, Alerts Substance Reaction Severity Status Lamictal Hives, itch Active Tegretol Hallucinations, aggression A ctive traMADol Active oxyCODONE Persistent Mild Active Tylenol itching Active Lobster Persistent Severe Active Percocet 7.5/325 1 C/O: itching Active influenza virus vaccine, inactivated 2 Active 1makes pt itchy 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 of Guillain - [place] Immunizations Given and Recorded Vaccine Date Status Refusal Reason pneumococcal 23-valent vaccine 02/03/17 Given Not Given Vaccine Date Status Refusal Reason pneumococcal 23-valent vaccine 01/25/17 Not Given Patient Refuses Medications aspirin 81 mg oral delayed release tablet See Instructions, ALY WEBB TODOS [place], # 30 tablet, 1 Refills, Maintenance, [id number], 175, cm, 02/26/20 14:11:00 EDT, Height, 87.5, kg, 02/26/20 14:11:00 EDT, Dry Weight Start Date: 04/12/20 Status: Ordered atorvastatin 80 mg oral tablet 1 tablet = 80 mg, By Mouth, Daily, # 30 tablet, 0 Refills, Maintenance, Tablet, Route to Pharmacy Electronically, [id number], [facility] Start Date: 04/02/18 Stop Date: [...] 0 Refills, Maintenance, 10/22/20 8:48:00 EST, Gel, [facility] #[id number], Partial fill upon patient request if the prescription is for a schedule... Start Date: 10/22/20 Status: Ordered enoxaparin 80 mg/0.8 mL injectable solution 0.9 mL = 90 mg, Subcutaneous Injection, Every 12 hours, please stop when INR 2- 3, PCP/VNA will be closely monitoring, # 18 mL, 0 Refills, Maintenance, 10/29/20 9:12:00 EST, Injection, [facility] #[id number], Partial fill upon patient [...] 10/22/20 8:48:00 EST, Route to Pharmacy Electronically, [facility]/pharmacy #[id number], Partial fill upon patient [...] drug. Start Date: 10/12/20 Status: Ordered morphine 15 mg oral tablet, immediate release 1 tablet = 15 mg, By Mouth, Every 6 hours, PRN for pain, # 8 tablet, 0 Refills, Acute 01/08/21 12:00:00 EDT, 01/04/21 13:42:00 EDT, Tablet, [facility]/pharm[facility] #[id number], Partial fill upon patient request if the prescription is for a schedule II opioid drug., 17... Start Date: 01/04/21 Stop Date: 01/08/21 Status: Ordered MorPHINE Immediate Release Tablet 15 mg, Tablet, By Mouth, Once, STAT, 01/04/21 9:56:00 EDT, Stop date 01/04/21 9:56:00 EDT Start Date: 01/04/21 Stop Date: 01/04/21 Status: Completed pantoprazole 40 mg oral delayed [...] tenofovir disoproxil fumarate 300 mg oral tablet ALY BARKSDALE LOS D Start Date: 06/16/20 Status: Ordered [...] 0 Refills, Maintenance, 10/29/20 9:13:00 EST, Tablet, [facility]/pharmacy #[id number], Partial fill upon patient request if the [...] 3 Oxygen Saturation [94-100 %] 98 % (01/04/21 1:38 PM) 95 % (01/04/21 10:21 AM) 100 % (01/04/21 7:29 AM) Pulse Rate [55-90 bpm] 77 bpm (01/04/21 1:38 PM) 70 bpm (01/04/21 10:21 AM) 85 bpm (01/04/21 7:29 AM) Blood Pressure [90-138/55-84 mm Hg] 119/76mm Hg (01/04/21 1:38 PM) 118/78mm Hg (01/04/21 10:21 AM) 101/78mm Hg (01/04/21 7:29 AM) Respiratory Rate [16-30 br/min] 16 br/min (01/04/21 1:38 PM) 16 br/min (01/04/21 10:21 AM) 16 br/min (01/04/21 10:21 AM) Temperature [96.8-100.4 DegF] 98.1 DegF (01/04/21 1:38 PM) 98.4 DegF (01/04/21 7:29 AM) Mode of Delivery (Oxygen) Room air (01/04/21 1:38 PM) Room air (01/04/21 10:21 AM) Room air (01/04/21 7:29 AM) Blood pressure sites Arm, left (01/04/21 7:29 AM) Temperature Route Oral (01/04/21 1:38 PM) Oral (01/04/21 7:29 AM) Social History Social History Type Response Smoking Status Former smoker; Tobac co user in household: No; Type: Cigarettes; Other: quit in july 2016; Tobacco use times per day: half pack per day; Started at age: 11; entered on: 05/29/18 Sex
--- OUTSIDE RECORDS SUMMARY | 2023-02-21 14:47 | XMS_ITS | Continuity of Care Document ---
Author Name Unknown Organization [facility] Address [address] [place] [address]- Care Team Providers Care Academic Support Director Name Role Phone Thomas Bright Primary Care Physician [phone] Encounter [facility] ACCT R [id number] Date(s): 12/10/19 - 12/20/19 [facility] [address] [place] [address] [facility] Attending Physician: Román Adams Admitting Physician: AdmRomán colón Referring Physician: AdmtrRomán Allergies, Adverse Reactions, Alerts Substance Reaction Severity Status Lamictal Hives, itch Active Tegretol Hallucinations, aggression A ctive Tylenol itching Active Lobster Persistent Severe Active Percocet 7.5/325 1 C/O: itching Active influenza virus vaccine, inactivated 2 Active traMADol Active oxyCODONE Persistent Mild Active 1makes pt itchy 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 Guillain - [place] Immunizations Given and Recorded Vaccine Date Status Refusal Reason pneumococcal 23-valent vaccine 02/03/17 Given Not Given Vaccine Date Status Refusal Reason pneumococcal 23-valent vaccine 01/25/17 Not Given Patient Refuses Medications atorvastatin 80 mg oral tablet 1 tablet = 80 mg, By Mouth, Daily, # 30 tablet, 0 Refills, Maintenance, Tablet, Route to Pharmacy Electronically, [id number], [facility] Start Date: 04/02/18 Stop [...] 0 Refills,Maintenance, 10/14/19 23:05:00 EST, DIS Tablet, [facility] #[id number], 175, cm, 09/12/19 10:20:00 EST,Height, 86, [...] ant GERD (gastroesophageal reflu x disease)(Confirmed) Active 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
--- OUTSIDE RECORDS SUMMARY | 2023-02-21 14:47 | XMS_ITS | Continuity of Care Document ---
Author Name Unknown Organization [facility] Address [address] [place] [address]- Care Team Providers Care Sew Out Operator Name Role Phone Thomas Bright Primary Care Physician [phone] Encounter [facility] Date(s): 05/30/21 - 05/31/[address] [address]- Encounter Diagnosis Abdominal pain(Final) - 05/30/21 Discharge Disposition: A-D/C Home Attending Physician: Ty Ziegler MD Admitting Physician: Tia Martini DO Referring Physician: Not on Staff, Referring MD Allergies, Adverse Reactions, Alerts Substance Reaction Severity Status Lamictal Hives, itch Active Tegretol Hallucinations, aggression A ctive Tylenol itching Active oxyCODONE Persistent Mild Active Lobster Persistent Severe Active Percocet 7.5/325 1 C/O: itching Active influenza virus vaccine, inactivated 2 Active traMADol Active 1makes pt itchy 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 of Guillain - [place] Immunizations Given and Recorded Vaccine Date Status Refusal Reason pneumococcal 23-valent vaccine 02/03/17 Given Not Given Vaccine Date Status Refusal Reason pneumococcal 23-valent vaccine 01/25/17 Not Given Patient Refuses Medications atorvastatin 80 mg oral tablet 1 tablet = 80 mg, By Mouth, Daily, # 30 tablet, 0 Refills, Maintenance, Tablet, Route to Pharmacy Electronically, [id number], [facility] Start Date: 04/02/18 Stop Date: 05/02/18 Status: Ordered famotidine 20 mg oral tablet TOME DOS TABLETAS POR VIA ORAL TODOS [place] Start Date: 06/16/20 Status: Ordered glyBURIDE 2.5 mg oral tablet 2.5 mg, 1, tablet, By Mouth, Daily, # 30 tablet, Refills 0, Maintenance, 12/23/18 19:28:34 EDT Start Date: 12/23/18 Status: Ordered HYDROmorphone 2 mg oral tablet 1 mg, Tablet, By Mouth, Every 6 hours, PRN for Pain , Severe, Routine, 05/30/21 23:00:00 EDT Start Date: 05/30/21 Stop Date: 05/31/21 Status: Discontinued Isentress HD 600 mg oral tablet 1 [...] opioid drug. Start Date: 05/30/21 Status: Ordered pregabalin 50 mg oral capsule 1 capsule = 50 mg, By Mouth, 2 times a day, # 60 capsule, 1 Refills, Maintenance, 05/31/21 10:44:00EDT, Capsule, Partial fill upon patient request if the prescription is for a schedule II opioid drug. 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 Hematoma of leg(Confirmed) Active HIV disease(Confirmed) 2003 Active HLD (hyperlipidemia)(Confirmed) Active HTN (hypertension)(Confirmed) Active Hypothyroidism(Confirmed) Active Skin infection(Confirmed) Active PVD (peripheral vascular disease)(Confirmed) Active 1sequelae, left sided weakness Vital Signs Most recent to oldest [Reference Range]: 1 2 3 Height 175 cm (05/31/21 11:53 AM) 175 cm (05/31/21 8:05 AM) 175 cm (05/31/21 5:35 AM) Weight 81.64 kg (05/30/21 8:30 PM) 90.3 kg (05/30/21 4:14 PM) 90.3 kg (05/30/21 11:40 AM) Oxygen Saturation [94-100 %] 98 % (05/31/21 11:53 AM) 97 % (05/31/21 8:05 AM) 97 % (05/31/21 5:35 AM) Pulse Rate [55-90 bpm] 65 bpm (05/31/21 11:53 AM) 65 bpm (05/31/21 8:05 AM) 77 bpm (05/31/21 5:35 AM) Body Mass Index [18.5-24.99] 26.66 *H* (05/30/21 8:30 PM) 29.49 *H* (05/30/21 4:14 PM) 29.49 *H* (05/30/21 11:40 AM) Blood Pressure [90-138/55-84 mm Hg] 102/67mm Hg (05/31/21 11:53 AM) 100/76mm Hg (05/31/21 8:05 AM) 99/66mm Hg (05/31/21 5:35 AM) Respiratory Rate [16-30 br/min] 17 br/min (05/31/21 12:20 PM) 18 br/min (05/31/21 11:53 AM) 17 br/min (05/31/21 9:49 AM) Temperature [96.8-100.4 DegF] 98.5 DegF (05/31/21 11:53 AM) 97.9 DegF (05/31/21 8:05 AM) 97.8 DegF (05/31/21 5:35 AM) Mode of Delivery (Oxygen) Room air (05/31/21 11:53 AM) Room air (05/31/21 8:05 AM) Room air (05/31/21 5:35 AM) Blood pressure sites Arm, right (05/31/21 11:53 AM) Arm, right (05/31/21 8:05 AM) Arm, right (05/31/21 5:35 AM) Temperature Route Oral (05/31/21 11:53 AM) Oral (05/31/21 8:05 AM) Oral (05/31/21 5:35 AM) Dry Weight 81.64 kg (05/30/21 8:30 PM) 90.3 kg (05/30/21 4:14 PM) 90.3 kg (05/30/21 11:40 AM) Weight Obtained Via Standing scale (05/30/21 7:16 AM) Dry Weight Obtained Via Standing scale (05/30/21 7:16 AM) Social History Social History Type Response Smoking Status Former smoker; Tobac co user in household: No; Type: Cigarettes; Other: quit in july 2016; Tobacco use times per day: half pack per day; Started at age: 11; entered on: 05/29/18 Sex
--- OUTSIDE RECORDS SUMMARY | 2023-02-21 14:47 | XMS_ITS | Continuity of Care Document ---
Author Name Unknown Organization [facility] Address [address] [place] [phone]- Care Team Providers Care Electricity Trader Name Role Phone Thomas Bright Primary Care Physician Encounter [facility] ACCT R [id number] Date(s): 06/10/21 - 06/17/21 [facility] [address], [place] [address] Attending Physician: Anselmo Mendieta MD Admitting [...] 1makes pt itchy 2Hx of Guillain - [place] Immunizations Given and Recorded Vaccine Date Status Refusal Reason pneumococcal 23-valent vaccine 02/03/17 Given Not Given Vaccine Date Status Refusal Reason pneumococcal 23-valent vaccine 01/25/17 Not Given Patient Refuses Medications atorvastatin 80 mg oral tablet 1 tablet = 80 mg, By Mouth, Daily, # 30 tablet, 0 Refills, Maintenance, Tablet, Route to Pharmacy Electronically, [id number], [facility] Start Date: 04/02/18 [...] Active GERD (gastroesophageal reflu x disease)(Confirmed) Active 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 Hematoma of leg(Confirmed) Active HIV disease(Confirmed) 2002 Active HLD (hyperlipidemia)(Confirmed) Active HTN (hypertension)(Confirmed) Active Hypothyroidism(Confirmed) Active Skin infection(Confirmed) Active PVD (peripheral vascular disease)(Confirmed) Active 1sequelae, left sided weakness Vital Signs Most recent to oldest [Reference Range]: 1 Height 175 cm (06/10/21 9:40 AM) Weight 81.64 kg (06/10/21 9:40 AM) Oxygen Saturation [94-100 %] 97 % (06/10/21 9:40 AM) Pulse Rate [55-90 bpm] 91 bpm *H* (06/10/21 9:40 AM) Body Mass Index [18.5-24.99] 26.66 *H* (06/10/21 9:40 AM) Blood Pressure [90-138/55-84 mm Hg] 102/ 70mm Hg (06/10/21 9:40 AM) Mode of Delivery (Oxygen) Room air (06/10/21 9:40 AM) Blood pressure sites Arm, left (06/10/21 9:40 AM) Weight Obtained Via Patient/family state d (06/10/21 9:40 AM) Social History Social History Type Response Smoking Status Former smoker; Tobac co user in household: No; Type: Cigarettes; Other: quit in july 2016; Tobacco use times per day: half pack per day; Started at age: 11; entered on: 05/29/18 Sex
--- OUTSIDE RECORDS SUMMARY | 2023-02-21 14:47 | XMS_ITS | Continuity of Care Document ---
Author Name Unknown Organization [facility] Address [address] [place] [address]- Care Team Providers Care Aviculturist Name Role Phone Thomas Bright Primary Care Physician Encounter [facility] [place] Date(s): 04/21/20 - 05/21/20 [facility] [address] [place] [address]- [facility] Allergies, Adverse Reactions, Alerts Substance Reaction Severity Status Lamictal Hives, itch Active Tegretol Hallucinations, aggression A ctive Tylenol itching Active Lobster Persistent Severe Active Percocet 7.5/325 1 C/O: itching Active influenza virus vaccine, inactivated 2 Active traMADol Active oxyCODONE Persistent Mild Active 1makes pt itchy 2Hx of Guillain - [place] Immunizations Given and Recorded Vaccine Date Status Refusal Reason pneumococcal 23-valent vaccine 02/03/17 Given Not Given Vaccine Date Status Refusal Reason pneumococcal 23-valent vaccine 01/25/17 Not Given Patient Refuses Medications aspirin 81 mg oral delayed release tablet See Instructions, ALY GOINSA TODOS [place], # 30 tablet, 1 Refills, Maintenance, [id number], 175, cm, 02/26/20 14:11:00 EDT, Height, 87.5, kg, 02/26/20 14:11:00 EDT, Dry Weight Start Date: 04/12/20 Status: Ordered atorvastatin 80 mg oral tablet 1 tablet = 80 mg, By Mouth, Daily, # 30 tablet, 0 Refills, Maintenance, Tablet, Route to Pharmacy Electronically, [id number], [facility] 3 Start Date: 04/02/18 Stop Date: [...] 01/12/20 22:53:00 EDT, Route to Pharmacy Electronically, [facility]/pharmacy #[id number], 175, cm, 01/12/20 17:28:00 EDT, Height, [...] 0 Refills,Maintenance, 10/14/19 23:05:00 EST, DIS Tablet, [facility]/pharmacy #[id number], 175, cm, 09/12/19 10:20:00 EST,Height, 86, [...] ant GERD (gastroesophageal reflu x disease)(Confirmed) Active 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
--- OUTSIDE RECORDS SUMMARY | 2023-02-21 14:47 | XMS_ITS | Continuity of Care Document ---
Author Name Unknown Organization [facility] y Address [address] [place] [address]- Care Team Providers Care Technical Inspector Name Role Phone Thomas Bright Primary Care Physician [place] [facility] [place] 08/17/22 - 12/15/22 [facility] [address] [place], [place] [address] Attending Physician: Scot López DO Admitting Physician: Scot López DO Allergies, Adverse Reactions, Alerts Substance Reaction Severity Status Lamictal Hives, itch Active Tegretol Hallucinations, aggression A ctive Tylenol itching Active oxyCODONE Persistent Mild Active Lobster Persistent Severe Active Percocet 7.5/325 1 C/O: itching Active influenza virus vaccine, inactivated 2 Active traMADol Active 1makes pt itchy 2Hx of Guillain - [place] Immunizations Given and Recorded Vaccine Date Status Refusal Reason pneumococcal 23-valent vaccine 02/03/17 Given Not Given Vaccine Date Status Refusal Reason pneumococcal 23-valent vaccine 01/25/17 Not Given Patient Refuses Medications atorvastatin 80 mg oral tablet 1 tablet = 80 mg, By Mouth, Daily at bedtime, # 30 tablet, 0 Refills, Maintenance, Tablet, Route toPharmacy Electronically, [id number], [facility] 3 Start Date: 04/02/18 Stop [...] Active GERD (gastroesophageal reflux disease) Confirmed Active Guillain-[place] syndrome 1 Confirmed Active Hematoma of leg [...] Team Personnel Name: Joselyn Sevilla RN Position: [facility] RN Member Role: Primary Care Nurse Name: Thomas Bright Position: [facility] Outreach Member Role: PCP Address: Address: [address] [place] [address] Name: Karmen Mandujano RN Position: [facility] Anjel RN Member Role: Primary Care Nurse Name: Margie Castanon RN Position: [facility] RN Member Role: Primary Care Nurse Name: Shahbaz Castaneda RN Position: [facility] RN Member Role: Primary Care Nurse Name: Justin Dailey MD Position: [facility] Infectious Disease MD Member Role: Lifetime Consulting Physician Address: Address: [address] [place] [address] [address] Name: Sophia Bell RN Position: [facility] RN Member Role: Primary Care Nurse Name: Veronica Davila RN Position: [facility] RN Member Role: Primary Care Nurse Name: Melva Herndon RN Position: [facility] RN Member Role: Primary Care Nurse Name: Karena Penaloza RN Position: [facility] RN Member Role: Primary Care Nurse Name: Fang Adams RN Position: [facility] Hospital Customer Trainer Member Role: Primary Care Nurse Name: Karri Jaramillo RN Position: [facility] RN Member Role: Primary Care Nurse Name: Consuelo Alvarenga RN Position: [facility] RN Member Role: Primary Care Nurse Name: Veronica Blanco RN Position: [facility] PCO RN Member Role: Primary Care Nurse Name: Ramsey Perez RN Position: [facility] RN Member Role: Primary Care Nurse Name: Lazaro Huffman RN Position: [facility] RN Member Role: Primary Care Nurse Name: Jacquelyn Juarez Position: [facility] RN Member Role: Primary Care Nurse Name: Jacquelyn Ramsey RN Position: [facility] RN Member Role: Primary Care Nurse Name: Jennifer Ghosh RN Position: [facility] RN Member Role: Primary Care Nurse Name: Qiana Mansfield RN Position: [facility] RN Member Role: Primary Care Nurse Name: Chuyita Ashley RN Position: [facility] RN Member Role: Primary Care Nurse Name: Elle Blackwood RN Position: [facility] Customer Trainer Member Role: Primary Care Nurse Name: Yamilex Arteaga RN Position: [facility] RN Member Role: Primary Care Nurse Name: Skip Harry RN Position: [facility] RN Member Role: Primary Care Nurse Name: Valentine Perrin RN Position: [facility] RN Member Role: Primary Care Nurse Name: Mark Howell RN Position: [facility] RN Member Role: Primary Care Nurse Name: Elaine Webb RN Position: [facility] RN Member Role: Primary Care Nurse Name: Stephanie Houser RN Position: [facility] RN Member Role: Primary Care Nurse Name: Amber Gu RN Position: [facility] RN Member Role: Primary Care Nurse Name: Reji Zimmerman Jr Position: [facility] JUSTYNA RN W/OE and Tasks Member Role: Primary Care Nurse Name: Dang Padilla RN Position: [facility] RN Member Role: Primary Care Nurse Name: Scot Anderson RN Position: [facility] RN Member Role: Primary Care Nurse Name: Luz Marina Byrd RN Position: [facility] RN Member Role: Primary Care Nurse Name: Joelle Sandoval RN Position: [facility] RN Member Role: Primary Care Nurse Name: Gideon Diaz RN Position: [facility] Onco RN Member Role: Primary Care Nurse Name: Diana Anderson RN Position: [facility] RN Member Role: Primary Care Nurse Name: Thomas Betancur RN Position: [facility] RN Member Role: Primary Care Nurse Name: Vee Mcnamara RN Position: [facility] Customer Trainer Member Role: Primary Care Nurse Name: Nisreen Greenberg RN Position: [facility] Outreach Member Role: Primary Care Nurse Name: Lanny Bolton RN Position: [facility] RN Member Role: Primary Care Nurse Name: Anthony Carolina RN Position: [facility] RN Member Role: Primary Care Nurse Name: Ana Dupont RN Position: [facility] RN Member Role: Primary Care Nurse Name: Alyssia Durbin RN Position: [facility] RN Member Role: Primary Care Nurse Name: Afshan Galeano RN Position: [facility] SN RN Member Role: Primary Care Nurse Name: Reji Bright RN Position: [facility] RN Member Role: Primary Care Nurse Name: Estefanía Austin RN Position: [facility] RN Member Role: Primary Care Nurse Name: Sarah Carson RN Position: [facility] RN Member Role: Primary Care Nurse Name: Amira Hughes RN Position: [facility] RN Member Role: Primary Care Nurse Name: Rina Dunlap LPN Position: [facility] RN Member Role: Primary Care Nurse Name: Chiquis Callejas RN Position: [facility] Onco RN Member Role: Primary Care Nurse Name: Linda Rajput RN, I Position: [facility] RN Member Role: Primary Care Nurse Care Team Related Persons Name: SHAHBAZ MEADOWS Address: home [address] [place] [address] Name: YOANDY TAYLOR Address: home [address] [address]
--- OUTSIDE RECORDS SUMMARY | 2023-02-21 14:47 | XMS_ITS | Continuity of Care Document ---
Author Name Unknown Organization [facility] Address [address] [place] [address]- Care Team Providers Care Airplane Rental Clerk Name Role Phone Thomas Bright Primary Care Physician [phone] Encounter [facility] [place] Date(s): 05/12/21 - 05/12/[address] [address]- Discharge Disposition: A-D/C Walkout Attending Physician: Not on Staff, Attending MD Admitting Physician: Not on Staff, Admitting MD Referring Physician: Not on Staff, Referring MD Allergies, Adverse Reactions, Alerts Substance Reaction Severity Status Lamictal Hives, itch Active Tegretol Hallucinations, aggression A ctive Percocet 7.5/325 1 C/O: itching Active influenza virus vaccine, inactivated 2 Active oxyCODONE Persistent Mild Active traMADol Active Tylenol itching Active Lobster Persistent Severe Active 1makes pt itchy 2Hx of Guillain - [place] Immunizations Given and Recorded Vaccine Date Status Refusal Reason pneumococcal 23-valent vaccine 02/03/17 Given Not Given Vaccine Date Status Refusal Reason pneumococcal 23-valent vaccine 01/25/17 Not Given Patient Refuses Medications aspirin 81 mg oral delayed release tablet See Instructions, ALY BARK[place]ALE [place], # 30 tablet, 1 Refills, Maintenance, [facility], 175, cm, 02/26/20 14:11:00 EDT, Height, 87.5, kg, 02/26/20 14:11:00 EDT, Dry Weight Start Date: 04/12/20 Status: Ordered atorvastatin 80 mg oral tablet 1 tablet = 80 mg, By Mouth, Daily, # 30 tablet, 0 Refills, Maintenance, Tablet, Route to Pharmacy Electronically, [id number], [facility] 3 Start Date: 04/02/18 Stop Date: 05/02/18 [...] 0 Refills, Maintenance, 10/22/20 8:48:00 EST, Gel, [facility]/pharmacy #[id number], Partial fill upon patient request if the prescription is for a schedule... Start Date: 10/22/20 Status: Ordered enoxaparin 80 mg/0.8 mL injectable solution 0.9 mL = 90 mg, Subcutaneous Injection, Every 12 hours, please stop when INR 2- 3, PCP/VNA will be closely monitoring, # 18 mL, 0 Refills, Maintenance, 10/29/20 9:12:00 EST, Injection, [facility]/pharmacy #[id number], Partial fill upon patient [...] 10/22/20 8:48:00 EST, Route to Pharmacy Electronically, [facility]/pharmacy #[id number], Partial fill upon patient [...] 0 Refills, Maintenance, 03/17/21 6:56:00 EDT, Film, [facility]/pharmacy #[id number], Partial fill upon patient [...] 0 Refills, Maintenance, 10/29/20 9:13:00 EST, Tablet, [facility]/pharmacy #[id number], Partial fill upon patient request if the prescription is for a schedule II opioid drug., 175, cm, 10/28/20 10:07:00 EST, Height, 8... 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 Hematoma of leg(Confirmed) Active HIV disease(Confirmed) 2002 Active Hypercholesterolemia(Confirmed) 2005 Active HLD (hyperlipidemia)(Confirmed) Active HTN (hypertension)(Confirmed) Active Hypothyroidism(Confirmed) Active Skin infection(Confirmed) Active PVD (peripheral vascular disease)(Confirmed) Active 1sequelae, left sided weakness Vital Signs Most recent to oldest [Reference Range]: 1 2 Oxygen Saturation [94-100 %] 99 % (05/12/21 11:24 AM) 100 % (05/12/21 10:54 AM) Pulse Rate [55-90 bpm] 99 bpm *H* (05/12/21 11:24 AM) 89 bpm (05/12/21 10:54 AM) Blood Pressure [90-138/55-84 mm Hg] 113/ 83mm Hg (05/12/21 11:24 AM) Respiratory Rate [16-30 br/min] 20 br/mi n (05/12/21 11:24 AM) 18 br/min (05/12/21 10:54 AM) Temperature [96.8-100.4 DegF] 98.4 DegF (05/12/21 11:24 AM) Mode of Delivery (Oxygen) Room air (05/12/21 11:24 AM) Blood pressure sites Arm, right (05/12/21 11:24 AM) Temperature Route Oral (05/12/21 11:24 AM) Social History Social History Type Response Smoking Status Former smoker; Tobac co user in household: No; Type: Cigarettes; Other: quit in july 2016; Tobacco use times per day: half pack per day; Started at age: 11; entered on: 05/29/18 Sex
--- OUTSIDE RECORDS SUMMARY | 2023-02-21 14:48 | XMS_ITS | Continuity of Care Document ---
Author Name Unknown Organization [facility] Address [address] [place] [address]- Care Team Providers Care Machine Operator Replanter Name Role Phone Thomas Bright Primary Care Physician [place] [facility] [place] 11[place]10/20 [facility] [address] [place] [address] Attending Physician: Román Adams Admitting Physician: AdmtrRomán Referring Physician: AdmtrRomán Allergies, Adverse Reactions, Alerts Substance Reaction Severity Status Lamictal Hives, itch Active Tegretol Hallucinations, aggression A ctive Tylenol itching Active Lobster Persistent Severe Active Percocet 7.5/325 1 C/O: itching Active influenza virus vaccine, inactivated 2 Active traMADol Active oxyCODONE Persistent Mild Active 1makes pt itchy 2Hx of Guillain - [place] Immunizations Given and Recorded Vaccine Date Status Refusal Reason pneumococcal 23-valent vaccine 02/03/17 Given Not Given Vaccine Date Status Refusal Reason pneumococcal 23-valent vaccine 01/25/17 Not Given Patient Refuses Medications aspirin 81 mg oral delayed release tablet See Instructions, ALY WEBB TODOS [place], # 30 tablet, 1 Refills, Maintenance, [facility], 175, cm, 02/26/20 14:11:00 EDT, Height, 87.5, kg, 02/26/20 14:11:00 EDT, Dry Weight Start Date: 04/12/20 Status: Ordered atorvastatin 80 mg oral tablet 1 tablet = 80 mg, By Mouth, Daily, # 30 tablet, 0 Refills, Maintenance, Tablet, Route to Pharmacy Electronically, [id number], [facility] 3 Start Date: 04/02/18 Stop [...] 0 Refills, Maintenance, 10/22/20 8:48:00 EST, Gel, [facility]/pharmacy #[id number], Partial fill upon patient [...] 0 Refills, Maintenance, 10/29/20 9:13:00 EST, Tablet, [facility]/pharmacy #[id number], Partial fill upon patient request if the prescription is for a schedule II opioid drug., 175, cm, 10/28/20 10:07:00 EST, Height, 8... 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
--- OUTSIDE RECORDS SUMMARY | 2023-02-21 14:48 | XMS_ITS | Continuity of Care Document ---
Author Name Unknown Organization [facility] Address [address] [place] [address]- Care Team Providers Care Locker Room Clerk Name Role Phone Thomas Bright Primary Care Physician [place] [facility] [place] 08/30/[address] [address]- Discharge Disposition: A-D/C Home Attending Physician: Matthew Romano DO Admitting Physician: Matthew Romano DO Referring Physician: Not on Staff, Referring MD Allergies, Adverse Reactions, Alerts Substance Reaction Severity Status Lamictal Hives, itch Active Tegretol Hallucinations, aggression A ctive Tylenol itching Active Lobster Persistent Severe Active Percocet 7.5/325 1 C/O: itching Active influenza virus vaccine, inactivated 2 Active traMADol Active oxyCODONE Persistent Mild Active 1makes pt itchy 2Hx of Guillain - [place] Immunizations Given and Recorded Vaccine Date Status Refusal Reason pneumococcal 23-valent vaccine 02/03/17 Given Not Given Vaccine Date Status Refusal Reason pneumococcal 23-valent vaccine 01/25/17 Not Given Patient Refuses Medications aspirin 81 mg oral delayed release tablet See Instructions, ALY [place], # 30 tablet, 1 Refills, Maintenance, [facility], 175, cm, 02/26/20 14:11:00 EDT, Height, 87.5, kg, 02/26/20 14:11:00 EDT, Dry Weight Start Date: 04/12/20 Status: Ordered atorvastatin 80 mg oral tablet 1 tablet = 80 mg, By Mouth, Daily, # 30 tablet, 0 Refills, Maintenance, Tablet, Route to Pharmacy Electronically, [id number], [facility] 3 Start Date: 04/02/18 Stop Date: 05/02/18 Status: Ordered Compression Stockings surgical, knee high length 20-30 mm Hg, # 2 each, Maintenance, 04/06/20 13:52:00 EDT, Supply Start Date: 04/06/20 Status: Ordered Compression Stockings surgical, thigh high length 20-30 mm Hg, # 1 each, Refills 2, Tot. Refills 2, Maintenance, wear daily remove bedtime, 04/06/20 13:52:00 EDT, Supply Start Date: 04/06/20 Status: Ordered Dilaudid Inj 1 mg, Injection, IV Push Slowly, Every 4 hours, PRN for Pain , Severe, Routine, 08/30/20 11:53:00 EST Start Date: 08/30/20 Stop Date: 09/06/20 Status: Ordered famotidine 20 mg oral tablet TOME DOS TABLETAS POR VIA ORAL TODOS [place] Start Date: 06/16/20 Status: Ordered glyBURIDE 2.5 mg oral tablet 2.5 mg, 1, tablet, By Mouth, Daily, # 30 tablet, Refills 0, Maintenance, 12/23/18 19:28:34 EDT Start Date: 12/23/18 Status: Ordered HYDROmorphone 4 mg oral tablet 1 tablet = 4 mg, By Mouth, Every 4 hours, PRN as needed for pain, # 10 tablet, 0 Refills, Acute 09/02/20 17:25:00 EST, 08/30/20 17:24:00 EST, Tablet, [facility]/pharmacy #[id number], Partial fill upon patient request if the prescription is for a schedule II opioid... 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 Hematoma of leg(Confirmed) Active HIV disease(Confirmed) 2003 Active Hypercholesterolemia(Confirmed) 2006 Active HLD (hyperlipidemia)(Confirmed) Active HTN (hypertension)(Confirmed) Active Hypothyroidism(Confirmed) Active Skin infection(Confirmed) Active PVD (peripheral vascular disease)(Confirmed) Active 1sequelae, left sided weakness Vital Signs Most recent to oldest [Reference Range]: 1 2 3 Weight 82.5 kg (08/30/20 10:08 AM) Oxygen Saturation [94-100 %] 99 % (08/30/20 10:08 AM) 99 % (08/30/20 9:53 AM) Pulse Rate [55-90 bpm] 113 bpm *H* (08/30/20 10:08 AM) 129 bpm *H* (08/30/20 9:53 AM) Blood Pressure [90-138/55-84 mm Hg] 133/87mm Hg (08/30/20 10:08 AM) Respiratory Rate [16-30 br/min] 18 br/min (08/30/20 6:10 PM) 20 br/min (08/30/20 1:12 PM) 18 br/min (08/30/20 10:08 AM) Temperature [96.8-100.4 DegF] 98.0 DegF (08/30/20 10:08 AM) Mode of Delivery (Oxygen) Room air (08/30/20 10:08 AM) Room air (08/30/20 9:53 AM) Blood pressure sites Arm, right (08/30/20 10:08 AM) Temperature Route Oral (08/30/20 10:08 AM) Dry Weight 82.5 kg (08/30/20 10:08 AM) Weight Obtained Via Patient/family state d (08/30/20 10:08 AM) Dry Weight Obtained Via Patient/family s tated (08/30/20 10:08 AM) Social History Social History Type Response Smoking Status Former smoker; Tobac co user in household: No; Type: Cigarettes; Other: quit in july 2016; Tobacco use times per day: half pack per day; Started at age: 11; entered on: 05/29/18 Sex
--- OUTSIDE RECORDS SUMMARY | 2023-02-21 14:48 | XMS_ITS | Continuity of Care Document ---
Author Name Unknown Organization [facility] Address [address] [place] [address]- Care Team Providers Care Canteen Manager Name Role Phone Thomas Bright Primary Care Physician [phone] Encounter [facility] [place] Date(s): 12/10/19 - 12/17/19 [facility] [address] [place] [address] [facility] Attending Physician: Anselmo Mendieta MD Admitting Physician: Anselmo Mendieta MD Allergies, Adverse Reactions, Alerts Substance Reaction Severity Status Lamictal Hives, itch Active Tegretol Hallucinations, aggression A ctive Tylenol itching Active Lobster Persistent Severe Active Percocet 7.5/325 1 C/O: itching Active influenza virus vaccine, inactivated 2 Active traMADol Active oxyCODONE Persistent Mild Active 1makes pt itchy 2Hx of Guillain - [place] Immunizations Given and Recorded Vaccine Date Status Refusal Reason pneumococcal 23-valent vaccine 02/03/17 Given Not Given Vaccine Date Status Refusal Reason pneumococcal 23-valent vaccine 01/25/17 Not Given Patient Refuses Medications atorvastatin 80 mg oral tablet 1 tablet = 80 mg, By Mouth, Daily, # 30 tablet, 0 Refills, Maintenance, Tablet, Route to Pharmacy Electronically, [id number], [facility] 3 Start Date: 04/02/18 Stop [...] 0 Refills,Maintenance, 10/14/19 23:05:00 EST, DIS Tablet, [facility]/pharmacy #[id number], 175, cm, 09/12/19 10:20:00 [...] ant GERD (gastroesophageal reflu x disease)(Confirmed) Active 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
--- OUTSIDE RECORDS SUMMARY | 2023-02-21 14:48 | XMS_ITS | Continuity of Care Document ---
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 Phone Thomas Bright Primary Care Physician [phone] [place] [facility] [place] - 03/06/[address] [address]- Encounter Diagnosis Bilateral lower extremity pain(Final) - 03/06/21 Discharge Disposition: A-D/C Home Attending Physician: Rose Mary Appiah MD Admitting Physician: Rose Mary Appiah MD Referring Physician: Not on Staff, Referring MD Allergies, Adverse Reactions, Alerts Substance Reaction Severity Status Lamictal Hives, itch Active Tegretol Hallucinations, aggression A ctive Tylenol itching Active Lobster Persistent Severe Active Percocet 7.5/325 1 C/O: itching Active influenza virus vaccine, inactivated 2 Active traMADol Active oxyCODONE Persistent Mild Active 1makes pt itchy 2Hx of Guillain - [place] Immunizations Given and Recorded Vaccine Date Status Refusal Reason pneumococcal 23-valent vaccine 02/03/17 Given Not Given Vaccine Date Status Refusal Reason pneumococcal 23-valent vaccine 01/25/17 Not Given Patient Refuses Medications aspirin 81 mg oral delayed release tablet See Instructions, ALY GOINSA [place] [place], # 30 tablet, 1 Refills, Maintenance, [id number], 175, cm, 02/26/20 14:11:00 EDT, Height, 87.5, kg, 02/26/20 14:11:00 EDT, Dry Weight Start Date: 04/12/20 Status: Ordered atorvastatin 80 mg oral tablet 1 tablet = 80 mg, By Mouth, Daily, # 30 tablet, 0 Refills, Maintenance, Tablet, Route to Pharmacy Electronically, [id number], [facility] Start Date: 04/02/18 [...] 0 Refills, Maintenance, 10/22/20 8:48:00 EST, Gel, [facility]/pharmacy #[id number], Partial fill upon patient [...] Moderate, and SBP greater than 100, Routine, 03/06/21 21:22:00 EDT, Stop date Limited # of times Start Date: 03/06/21 Status: Ordered pantoprazole 40 mg oral delayed [...] 0 Refills, Maintenance, 10/29/20 9:13:00 EST, Tablet, [facility]/pharmacy #[id number], Partial fill upon patient request if the prescription is for a schedule II opioid drug., 175, cm, 10/28/20 10:07:00 EST, Height, 8... 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 Hematoma of leg(Confirmed) Active HIV disease(Confirmed) 2002 Active Hypercholesterolemia(Confirmed) 2005 Active HLD (hyperlipidemia)(Confirmed) Active HTN (hypertension)(Confirmed) Active Hypothyroidism(Confirmed) Active Skin infection(Confirmed) Active PVD (peripheral vascular disease)(Confirmed) Active 1sequelae, left sided weakness Vital Signs Most recent to oldest [Reference Range]: 1 2 3 Height 175 cm (03/06/21 10:23 AM) Weight 83 kg (03/06/21 10:23 AM) Oxygen Saturation [94-100 %] 96 % (03/06/21 11:20 PM) 97 % (03/06/21 10:14 PM) 96 % (03/06/21 7:40 PM) Pulse Rate [55-90 bpm] 88 bpm (03/06/21 11:20 PM) 69 bpm (03/06/21 10:14 PM) 75 bpm (03/06/21 7:40 PM) Blood Pressure [90-138/55-84 mm Hg] 107/72mm Hg (03/06/21 11:20 PM) 109/70mm Hg (03/06/21 10:14 PM) 116/67mm Hg (03/06/21 7:40 PM) Respiratory Rate [16-30 br/min] 14 br/min *L* (03/06/21 11:20 PM) 14 br/min *L* (03/06/21 10:14 PM) 12 br/min *L* (03/06/21 10:10 PM) Temperature [96.8-100.4 DegF] 98.1 DegF (03/06/21 11:20 PM) 98.3 DegF (03/06/21 7:40 PM) 97.8 DegF (03/06/21 12:10 PM) Liters per Minute 0 L/min (03/06/21 10:23 AM) Mode of Delivery (Oxygen) Room air (03/06/21 11:20 PM) Room air (03/06/21 10:14 PM) Room air (03/06/21 7:40 PM) Temperature Route Oral (03/06/21 11:20 PM) Oral (03/06/21 7:40 PM) Oral (03/06/21 12:10 PM) Dry Weight 83 kg (03/06/21 10:23 AM) Weight Obtained Via stated by pt (03/06/21 10:23 AM) Dry Weight Obtained Via stated by pt (03/06/21 10:23 AM) Social History Social History Type Response Smoking Status Former smoker; Tobac co user in household: No; Type: Cigarettes; Other: quit in july 2016; Tobacco use times per day: half pack per day; Started at age: 11; entered on: 05/29/18 Sex
--- OUTSIDE RECORDS SUMMARY | 2023-02-21 14:48 | XMS_ITS | Continuity of Care Document ---
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 Phone Thomas Bright Primary Care Physician [phone] [place] [facility] [place] - 11/20/[address] [address]- Encounter Diagnosis Diarrhea(Final) - 11/20/20 Lower GI bleed(Final) - 11/20/20 Discharge Disposition: A-D/C Home Attending Physician: Weston Armas MD Admitting Physician: Weston Armas MD Referring Physician: Not on Staff, Referring MD Allergies, Adverse Reactions, Alerts Substance Reaction Severity Status Lamictal Hives, itch Active Tegretol Hallucinations, aggression A ctive Tylenol itching Active Lobster Persistent Severe Active Percocet 7.5/325 1 C/O: itching Active influenza virus vaccine, inactivated 2 Active traMADol Active oxyCODONE Persistent Mild Active 1makes pt itchy 2Hx of Guillain - [place] Immunizations Given and Recorded Vaccine Date Status Refusal Reason pneumococcal 23-valent vaccine 02/03/17 Given Not Given Vaccine Date Status Refusal Reason pneumococcal 23-valent vaccine 01/25/17 Not Given Patient Refuses Medications aspirin 81 mg oral delayed release tablet See Instructions, ALY GOINSA [place]OS [place], # 30 tablet, 1 Refills, Maintenance, [id number], 175, cm, 02/26/20 14:11:00 EDT, Height, 87.5, kg, 02/26/20 14:11:00 EDT, Dry Weight Start Date: 04/12/20 Status: Ordered atorvastatin 80 mg oral tablet 1 tablet = 80 mg, By Mouth, Daily, # 30 tablet, 0 Refills, Maintenance, Tablet, Route to Pharmacy Electronically, [id number], [facility] Start Date: 04/02/18 Stop Date: 05/02/18 [...] 0 Refills, Maintenance, 10/22/20 8:48:00 EST, Gel, [facility]/pharmacy #[id number], Partial fill upon patient [...] 8:48:00 EST, Route to Pharmacy Electronically, [facility]/pharmacy #[id number], Partial fill upon patient [...] Moderate, and SBP greater than 100, Routine, 11/20/20 10:59:00 EDT, Stop date Limited # of times Start Date: 11/20/20 Stop Date: 11/20/20 Status: Discontinued pantoprazole 40 mg oral delayed [...] Refills, Maintenance, 10/29/20 9:13:00 EST, Tablet, [facility]/pharmacy #[id number], Partial fill upon patient request if the prescription is for a schedule II opioid drug., 175, cm, 10/28/20 10:07:00 EST, Height, 8... 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 Hematoma of leg(Confirmed) Active HIV disease(Confirmed) 2002 Active Hypercholesterolemia(Confirmed) 2006 Active HLD (hyperlipidemia)(Confirmed) Active HTN (hypertension)(Confirmed) Active Hypothyroidism(Confirmed) Active Skin infection(Confirmed) Active PVD (peripheral vascular disease)(Confirmed) Active 1sequelae, left sided weakness Vital Signs Most recent to oldest [Reference Range]: 1 2 3 Oxygen Saturation [94-100 %] 95 % (11/20/20 1:36 PM) 90 % *L* (11/20/20 12:23 PM) 96 % (11/20/20 12:07 PM) Pulse Rate [55-90 bpm] 73 bpm (11/20/20 1:36 PM) 70 bpm (11/20/20 12:23 PM) 71 bpm (11/20/20 12:07 PM) Blood Pressure [90-138/55-84 mm Hg] 114/77mm Hg (11/20/20 1:36 PM) 112/72mm Hg (11/20/20 12:07 PM) 116/69mm Hg (11/20/20 9:27 AM) Respiratory Rate [16-30 br/min] 12 br/min *L* (11/20/20 1:36 PM) 12 br/min *L* (11/20/20 1:35 PM) 15 br/min *L* (11/20/20 12:23 PM) Temperature [96.8-100.4 DegF] 98.2 DegF (11/20/20 12:07 PM) 98.0 DegF (11/20/20 9:27 AM) Mode of Delivery (Oxygen) Room air (11/20/20 1:36 PM) Room air (11/20/20 12:23 PM) Room air (11/20/20 12:07 PM) Blood pressure sites Arm, right (11/20/20 1:36 PM) Arm, right (11/20/20 12:07 PM) Temperature Route Oral (11/20/20 12:07 PM) Oral (11/20/20 9:27 AM) Social History Social History Type Response Smoking Status Former smoker; Tobac co user in household: No; Type: Cigarettes; Other: quit in july 2016; Tobacco use times per day: half pack per day; Started at age: 11; entered on: 05/29/18 Sex
--- OUTSIDE RECORDS SUMMARY | 2023-02-21 14:48 | XMS_ITS | Continuity of Care Document ---
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5/325 1 C/O: itching Active influenza virus vaccine, inactivated 2 Active traMADol Active oxyCODONE Persistent Mild Active 1makes pt itchy 2Hx of Guillain - Lennox Immunizations Given and Recorded Vaccine Date Status Refusal Reason pneumococcal 23-valent vaccine 02/03/17 Given Not Given Vaccine Date Status Refusal Reason pneumococcal 23-valent vaccine 01/25/17 Not Given Patient Refuses Medications atorvastatin 80 mg oral tablet 1 tablet = 80 mg, By Mouth, Daily at bedtime, # 30 tablet, 0 Refills, Maintenance, Tablet, Route toPharmacy Electronically, [id number], [facility] Start Date: 04/02/18 Stop Date: [...] Moderate, and SBP greater than 100, Routine, 02/10/23 14:04:00 EDT, Stop date Limited # of times Start Date: 02/10/23 Stop Date: 02/11/23 Status: Discontinued ondansetron 4 mg oral tablet, [...] Active GERD (gastroesophageal reflux disease) Confirmed Active Guillain-Lennox syndrome 1 Confirmed Active Hematoma of leg Confirmed Active HIV disease Confirmed 2002 Active HLD (hyperlipidemia) Confirmed Active HTN (hypertension) Confirmed Active Hypothyroidism Confirmed Active Skin infection Confirmed Active PVD (peripheral vascular disease) Confirmed Active 1sequelae, left sided weakness Results Radiology Reports * Exam Date Time Procedure Performing Provider Status 02/10/23 5:49 PM US Doppler Ext Lower Venous Bilat Brit Ward; Emeli (Verified) Notes: (US Doppler Ext Lower Venous Bilat) Reason For Exam: Pain in limb;Other: RESULT: US Doppler Ext Lower Venous Bilat US Doppler Ext Lower Venous Bilat Hx of Present Illness: pt c o abd pain s p fall on Sunday or Sunday. struck abd. is on blood thinner d t known dvt in BLE. pt c o BLE pain.; Reason: Other:; Pain in limb; Clinical Question(s): Thrombosis; Order Comment: COMPARISON: 01/04/2023 and 11/15/2022. IMAGING TECHNIQUE: Ultrasound of the veins [...] femoral vein: Patent. No thrombosis. Femoral vein: Linear band and heterogeneous echoes along the peripheral vessel wall representing chronic venous changes. No acute thrombosis. Popliteal vein: Eccentric heterogeneous echoes along the periphery representing chronic venous changes. No acute thrombosis. Gastrocnemius veins: The visualized portions are patent without evidence of thrombosis. Peroneal veins: The visualized portions are patent without evidence of thrombosis. Posterior tibial veins: The visualized portions are patent without evidence of thrombosis. OTHER FINDINGS: Unchanged 2.2 cm AP diameter thrombosed RIGHT popliteal artery aneurysm. IMPRESSION: Chronic venous changes in the LEFT femoral and popliteal veins. No evidence of acute deep venous thrombosis in the bilateral lower extremities. Unchanged RIGHT popliteal artery thrombosed aneurysm. WSN: [id number] Ordering Physician: Francisco Noel Dictated By: Jennifer Hdz MD Dictated Date/Time: 02/10/23 6:05 pm Reviewed By: Jennifer Hdz MD Signed By: Jennifer Hdz MD Signed Date/Time: 02/10/23 6:05 pm Transcribed By: LOGAN Transcribed Date/Time: 02/10/23 5:57 pm * Exam Date Time Procedure Performing Provider Status 02/10/23 4:[address] Angio Abdomen and Pelvis Diamante , N icole; Auth (Verified) Notes: (CT Angio Abdomen and Pelvis) Reason For Exam: AAA, repaired in 2017, blunt trauma to abdomen with pain;Other: RESULT: CT Angio Abdomen and Pelvis PROCEDURE: CT Angio Chest, CT Angio Abdomen and Pelvis CLINICAL INDICATION: Abdominal pain. Recent fall. Anticoagulation therapy. Concern of acute aortic abnormality. Known deep venous thrombosis. TECHNIQUE: During uneventful administration intravenous contrast, thin section axial images were obtained of the chest, abdomen, and pelvis in arterial phase. Multiplanar reformats were computed. 100 cc of Omnipaque 300 was administered intravenously. 3D and MIP reconstructions were performed. Weight-based protocol using automatic tube modulation was used to optimize exposure parameters. RADIATION DOSE PARAMETERS: CTDIvol Body: 9.43 mGy, DLP Body: 986 mGy*cm. COMPARISON: 01/04/2023. FINDINGS: CTA: Pulmonary arteries: No pulmonary embolism down to the segmental level.. Thoracic aorta: No thoracic aortic aneurysm or dissection.. Abdominal aorta: The patient has had a prior aortobiiliac endograft. Both limbs are patent. Maximum diameter is 28 mm. This is unchanged. No evidence of endoleak. The uppermost stress or at the level of the renal artery origins. Celiac axis: Normal. Superior mesenteric artery: Normal.. Inferior mesenteric artery: Probably occluded at its origin with immediate reconstitution.. Renal arteries: Normal single right renal artery. Normal single left renal artery.. Iliac arteries: No aneurysm. Patent.. OTHER FINDINGS: TRACHEA AND MAINSTEM BRONCHI: Patent without evidence of tracheal or endobronchial lesion. LUNGS AND PLEURA: Right Chest: The right lung is clear. There is no right pleural effusion. Left Chest: The left lung is clear. There is no left pleural effusion. MEDIASTINUM AND [place]: The heart is of normal size. No pericardial effusion.. There is no mediastinal or hilar adenopathy.. There is no esophageal abnormality. No mediastinal hematoma. BONES OF THE CHEST: Moderate compression fracture of T6 unchanged since 01/04/2023. No other thoracic spine compression fracture. No fracture ribs or sternum.. DIAPHRAGM: Intact. LIVER: No significant focal abnormality. Fatty liver. GALLBLADDER: Surgically absent. BILE DUCTS: No biliary dilatation. SPLEEN: Normal size. No focal abnormality. PANCREAS: Atrophic.. ADRENAL GLANDS: Normal. KIDNEYS AND URETERS: Right Kidney: Normal. Left Kidney: Normal. BLADDER: Post empty. No abnormality seen. STOMACH, SMALL BOWEL AND LARGE BOWEL: Stomach: Normal. Small Bowel: No small bowel dilatation or gross inflammatory change Large Bowel: There is a colorectal anastomosis without complication.. APPENDIX: Not identified and apparently surgically absent.. REPRODUCTIVE/PELVIC ORGANS: There is no pelvic mass or fluid collection PERITONEUM, RETROPERITONEUM, OMENTUM AND MESENTERY: There is no free air. . There is no ascites. No retroperitoneal hematoma. LYMPH NODES: No enlarged lymph nodes ABDOMINAL WALL: No abdominal wall hernia BONES OF THE ABDOMEN AND PELVIS: There is no compression fracture. There is no spondylolysis or spondylolisthesis. No fracture bony pelvis or proximal femurs. IMPRESSION: CTA 1. No pulmonary embolism. 2. No thoracic aortic aneurysm or dissection. 3. Satisfactory appearance of aortobiiliac endograft with no acute abnormality.. CHEST 1. No acute pulmonary, pleural, or mediastinal abnormality.. 2. Stable old T6 compression fracture with no superimposed additional fracture. ABDOMEN AND PELVIS 1. No acute abnormality soft tissues. 2. Fatty liver. 3. No fracture. WSN: [id number] Ordering Physician: Francisco Noel Dictated By: Anjum Lopez MD Dictated Date/Time: 02/10/23 5:15 pm Reviewed By: Anjum Lopez MD Signed By: Anjum Lopez MD Signed Date/Time: 02/10/23 5:15 pm Transcribed By: LOGAN Transcribed Date/Time: 02/10/23 4:58 pm * Exam Date Time Procedure Performing Provider Status 02/10/23 4:[address] Angio Chest Sophia Bobby; Auth ( Verified) Notes: (CT Angio Chest) Reason For Exam: Aortic disease, nontraumatic;Other: RESULT: CT Angio Chest PROCEDURE: CT Angio Chest, CT Angio Abdomen and Pelvis CLINICAL INDICATION: Abdominal pain. Recent fall. Anticoagulation therapy. Concern of acute aortic abnormality. Known deep venous thrombosis. TECHNIQUE: During uneventful administration intravenous contrast, thin section axial images were obtained of the chest, abdomen, and pelvis in arterial phase. Multiplanar reformats were computed. 100 cc of Omnipaque 300 was administered intravenously. 3D and MIP reconstructions were performed. Weight-based protocol using automatic tube modulation was used to optimize exposure parameters. RADIATION DOSE PARAMETERS: CTDIvol Body: 9.43 mGy, DLP Body: 986 mGy*cm. COMPARISON: 01/04/2023. FINDINGS: CTA: Pulmonary arteries: No pulmonary embolism down to the segmental level.. Thoracic aorta: No thoracic aortic aneurysm or dissection.. Abdominal aorta: The patient has had a prior aortobiiliac endograft. Both limbs are patent. Maximum diameter is 28 mm. This is unchanged. No evidence of endoleak. The uppermost stress or at the level of the renal artery origins. Celiac axis: Normal. Superior mesenteric artery: Normal.. Inferior mesenteric artery: Probably occluded at its origin with immediate reconstitution.. Renal arteries: Normal single right renal artery. Normal single left renal artery.. Iliac arteries: No aneurysm. Patent.. OTHER FINDINGS: TRACHEA AND MAINSTEM BRONCHI: Patent without evidence of tracheal or endobronchial lesion. LUNGS AND PLEURA: Right Chest: The right lung is clear. There is no right pleural effusion. Left Chest: The left lung is clear. There is no left pleural effusion. MEDIASTINUM AND [place]: The heart is of normal size. No pericardial effusion.. There is no mediastinal or hilar adenopathy.. There is no esophageal abnormality. No mediastinal hematoma. BONES OF THE CHEST: Moderate compression fracture of T6 unchanged since 01/04/2023. No other thoracic spine compression fracture. No fracture ribs or sternum.. DIAPHRAGM: Intact. LIVER: No significant focal abnormality. Fatty liver. GALLBLADDER: Surgically absent. BILE DUCTS: No biliary dilatation. SPLEEN: Normal size. No focal abnormality. PANCREAS: Atrophic.. ADRENAL GLANDS: Normal. KIDNEYS AND URETERS: Right Kidney: Normal. Left Kidney: Normal. BLADDER: Post empty. No abnormality seen. STOMACH, SMALL BOWEL AND LARGE BOWEL: Stomach: Normal. Small Bowel: No small bowel dilatation or gross inflammatory change Large Bowel: There is a colorectal anastomosis without complication.. APPENDIX: Not identified and apparently surgically absent.. REPRODUCTIVE/PELVIC ORGANS: There is no pelvic mass or fluid collection PERITONEUM, RETROPERITONEUM, OMENTUM AND MESENTERY: There is no free air. . There is no ascites. No retroperitoneal hematoma. LYMPH NODES: No enlarged lymph nodes ABDOMINAL WALL: No abdominal wall hernia BONES OF THE ABDOMEN AND PELVIS: There is no compression fracture. There is no spondylolysis or spondylolisthesis. No fracture bony pelvis or proximal femurs. IMPRESSION: CTA 1. No pulmonary embolism. 2. No thoracic aortic aneurysm or dissection. 3. Satisfactory appearance of aortobiiliac endograft with no acute abnormality.. CHEST 1. No acute pulmonary, pleural, or mediastinal abnormality.. 2. Stable old T6 compression fracture with no superimposed additional fracture. ABDOMEN AND PELVIS 1. No acute abnormality soft tissues. 2. Fatty liver. 3. No fracture. WSN: [id number] Ordering Physician: Francisco Noel Dictated By: Anjum Lopez MD Dictated Date/Time: 02/10/23 5:15 pm Reviewed By: Anjum Lopez MD Signed By: Anjum Lopez MD Signed Date/Time: 02/10/23 5:15 pm Transcribed By: LOGAN Transcribed Date/Time: 02/10/23 4:58 pm Vital Signs Most recent to oldest [Reference Range]: 1 2 3 Height 175 cm (02/10/23 6:31 PM) 175 cm (02/10/23 3:22 PM) 175 cm (02/10/23 11:07 AM) Weight 85 kg (02/10/23 6:31 PM) 85 kg (02/10/23 3:22 PM) 85 kg (02/10/23 11:07 AM) Oxygen Saturation [94-100 %] 95 % (02/10/23 7:35 PM) 100 % (02/10/23 6:31 PM) 97 % (02/10/23 11:07 AM) Pulse Rate [55-90 bpm] 78 bpm (02/10/23 7:35 PM) 79 bpm (02/10/23 6:31 PM) 112 bpm *H* (02/10/23 11:07 AM) Body Mass Index [18.5-24.99 kg/m2] 27.76 kg/m2 *H* (02/10/23 6:31 PM) 27.76 kg/m2 *H* (02/10/23 11:07 AM) Blood Pressure [90-138/55-84 mm Hg] 107/69mm Hg (02/10/23 7:35 PM) 114/92mm Hg (02/10/23 6:31 PM) 107/72mm Hg (02/10/23 11:07 AM) Respiratory Rate [16-30 br/min] 18 br/min (02/10/23 7:35 PM) 18 br/min (02/10/23 6:53 PM) 16 br/min (02/10/23 6:31 PM) Temperature [96.8-100.4 DegF] 98.6 DegF (02/10/23 7:35 PM) 98.6 DegF (02/10/23 11:07 AM) Mode of Delivery (Oxygen) Room air (02/10/23 7:35 PM) Room air (02/10/23 6:31 PM) Room air (02/10/23 11:07 AM) Blood pressure sites Arm, right (02/10/23 7:35 PM) Arm, right (02/10/23 6:31 PM) Arm, right (02/10/23 11:07 AM) Temperature Route Oral (02/10/23 7:35 PM) Oral (02/10/23 11:07 AM) Dry Weight 85 kg (02/10/23 6:31 PM) 85 kg (02/10/23 3:22 PM) 85 kg (02/10/23 11:07 AM) Weight Obtained Via Patient/family state d (02/10/23 11:07 AM) Dry Weight Obtained Via Patient/family s tated (02/10/23 11:07 AM) Social History Social History Type Response Smoking Status Never (less than 100 in lifetime) entered on: 10/25/21 Sex Note * Francisco Noel MD: PERFORM Event Display: Patient Education Leaflets Authored Date: [id number] Acute Pain, Uncertain Cause ?? [id number] Acute Pain, Uncertain Cause Pain can be caused by many conditions that range from very minor to very serious. In some cases, though, pain comes and goes with no apparent cause. We were not able to find the exact cause for your pain. At this time there is no sign of any serious illness causing your pain. More tests may be needed to determine the cause. In many cases, pain like this goes away by itself. Home care Take any medicines as prescribed. If another medicine was not prescribed for pain, you can take an dyso-euc-dyetudb pain medicine such as ibuprofen or acetaminophen. Use these as directed on the label. Talk with your healthcare provider before taking dqup-lxe-asblssm pain medicine if you have a history of kidney or liver problems or bleeding in the stomach, or have heart disease. ?? Follow-up care Follow up with your??healthcare provider??or our staff as directed. ?? When to seek medical advice Call your healthcare provider for any of the following: ??? Pain changes in pattern ??? Pain doesn't lessen or gets worse ??? New symptoms appear ??? Fever??of 100.4??F (38??C) or higher,??or as directed by your healthcare provider ?? Last Reviewed Date: 2021 ?? [id number] [employer]. All rights reserved. This information is not intended as a substitute for professional medical care. Always follow your healthcare professional's instructions. ?? Patient Care team information Care Team Personnel Name: Di SIMEON, Joselyn Velasco Position: S RN Member Role: Primary Care Nurse Name: Thomas Bright Position: [facility] Outreach Member Role: PCP Address: Address: [address] [place] [address]- Name: Karmen Mandujano RN Position: [facility] Rad RN Member Role: Primary Care Nurse Name: Margie Castanon RN Position: [facility] RN Member Role: Primary Care Nurse Name: Shahbaz Castaneda RN Position: [facility] RN Member Role: Primary Care Nurse Name: Justin Dailey MD Position: [facility] Physician - Infectious Disease Member Role: Lifetime Consulting Physician Address: Address: [address] [place] [address] [place] [address]- Name: Sophia Bell RN Position: [facility] RN Member Role: Primary Care Nurse Name: Veronica Davila RN Position: [facility] RN Member Role: Primary Care Nurse Name: Melva Herndon RN Position: [facility] RN Member Role: Primary Care Nurse Name: Karena Penaloza RN Position: [facility] RN Member Role: Primary Care Nurse Name: Fang Adams RN Position: [facility] [employer] Examiner Member Role: Primary Care Nurse Name: Karri Jaramillo RN Position: [facility] RN Member Role: Primary Care Nurse Name: Consuelo Alvarenga RN Position: [facility] RN Member Role: Primary Care Nurse Name: Veronica Blanco RN Position: [facility] Office Staff Member Role: Primary Care Nurse Name: Lazaro Huffman RN Position: [facility] RN Member Role: Primary Care Nurse Name: Jacquelyn Juarez Position: [facility] RN Member Role: Primary Care Nurse Name: Jacquelyn Ramsey RN Position: [facility] RN Member Role: Primary Care Nurse Name: Qiana Mansfield RN Position: [facility] RN Member Role: Primary Care Nurse Name: Chuyita Ashley RN Position: [facility] RN Member Role: Primary Care Nurse Name: Elle Blackwood RN Position: [facility] [employer] Examiner Member Role: Primary Care Nurse Name: Yamilex Arteaga RN Position: [facility] RN Member Role: Primary Care Nurse Name: Skip Harry RN Position: [facility] RN Member Role: Primary Care Nurse Name: Valentine Perrin RN Position: [facility] RN Member Role: Primary Care Nurse Name: Mark Howell RN Position: [facility] RN Member Role: Primary Care Nurse Name: Elaine Webb RN Position: [facility] RN Member Role: Primary Care Nurse Name: Stephanie Houser RN Position: [facility] RN Member Role: Primary Care Nurse Name: Amber Gu RN Position: [facility] RN Member Role: Primary Care Nurse Name: Reji Zimmerman Jr Position: [facility] ED RN W/OE and Tasks Member Role: Primary Care Nurse Name: Dang Padilla RN Position: [facility] RN Member Role: Primary Care Nurse Name: Scot Anderson RN Position: [facility] RN Member Role: Primary Care Nurse Name: Luz Marina Byrd RN Position: [facility] RN Member Role: Primary Care Nurse Name: Joelle Sandoval RN Position: [facility] RN Member Role: Primary Care Nurse Name: Gideon Diaz RN Position: [facility] Onco RN Member Role: Primary Care Nurse Name: Diana Anderson RN Position: [facility] RN Member Role: Primary Care Nurse Name: Thomas Betancur RN Position: [facility] RN Member Role: Primary Care Nurse Name: Vee Mcnamara RN Position: [facility] [employer] [employer] Examiner Member Role: Primary Care Nurse Name: Nisreen Greenberg RN Position: [facility] Outreach Member Role: Primary Care Nurse Name: Lanny Bolton RN Position: [facility] RN Member Role: Primary Care Nurse Name: Anthony Carolina RN Position: [facility] RN Member Role: Primary Care Nurse Name: Ana Dupont RN Position: [facility] RN Member Role: Primary Care Nurse Name: Alyssia Durbin RN Position: [facility] RN Member Role: Primary Care Nurse Name: Afshan Galeano RN Position: [facility] SN RN Member Role: Primary Care Nurse Name: Reji Bright RN Position: [facility] RN Member Role: Primary Care Nurse Name: Estefanía Austin RN Position: [facility] RN Member Role: Primary Care Nurse Name: Sarah Carson RN Position: [facility] RN Member Role: Primary Care Nurse Name: Amira Hughes RN Position: [facility] RN Member Role: Primary Care Nurse Name: Rina Dunlap LPN Position: [facility] RN Member Role: Primary Care Nurse Name: Chiquis Callejas RN Position: [facility] Onco RN Member Role: Primary Care Nurse Name: Linda Rajput RN, I Position: [facility] RN Member Role: Primary Care Nurse Name: Yris Posey DO Position: [facility] Resident Member Role: Resident Address: Address: [address] [place] [address] [place] [address]- Name: Francisco Noel MD Position: [facility] ED Medicine MD Member Role: Admitting Physician Address: Address: [address] [place] [address]- Name: Vicenta De Dios Position: [facility] ED TA [facility] Name: Dianne Knutson Position: [facility] ED RN W/OE and Tasks Member Role: Patient Care Provider Care Team Related Persons Name: SHAHBAZ MEADOWS Address: home [address] [place] [address] Name: YOANDY TAYLOR Address: home [address] [address]
--- OUTSIDE RECORDS SUMMARY | 2023-02-21 14:48 | XMS_ITS | Continuity of Care Document ---
Author Name Unknown Organization [facility] ter Address [address] [place] [address]- Care Team Providers Care Hydrometallurgical Engineer Name Role Phone Thomas Bright Primary Care Physician Encounter [facility] [place] Date(s): 06/04/20 - 06/05/[address] [address]- [facility] Discharge Disposition: A-D/C Home Attending Physician: Gardenia MG, Feliz Admitting Physician: Ac MG, Emani Referring Physician: Not on Staff, Referring MD Allergies, Adverse Reactions, Alerts Substance Reaction Severity Status Lamictal Hives, itch Active Tegretol Hallucinations, aggression A ctive Tylenol itching Active Lobster Persistent Severe Active Percocet 7.5/325 1 C/O: itching Active influenza virus vaccine, inactivated 2 Active traMADol Active oxyCODONE Persistent Mild Active 1makes pt itchy 2Hx of Guillain - [place] Immunizations Given and Recorded Vaccine Date Status Refusal Reason pneumococcal 23-valent vaccine 02/03/17 Given Not Given Vaccine Date Status Refusal Reason pneumococcal 23-valent vaccine 01/25/17 Not Given Patient Refuses Medications aspirin 81 mg oral delayed release tablet See Instructions, ALY BARKSDALE [place], # 30 tablet, 1 Refills, Maintenance, [id number], 175, cm, 02/26/20 14:11:00 EDT, Height, 87.5, kg, 02/26/20 14:11:00 EDT, Dry Weight Start Date: 04/12/20 Status: Ordered atorvastatin 80 mg oral tablet 1 tablet = 80 mg, By Mouth, Daily, # 30 tablet, 0 Refills, Maintenance, Tablet, Route to Pharmacy Electronically, [id number], [facility] Start Date: 04/02/18 Stop [...] EDT, Supply Start Date: 04/06/20 Status: Ordered glyBURIDE 2.5 mg oral tablet [...] Date: 04/02/18 Stop Date: 09/29/18 Status: Ordered ondansetron 4 mg oral tablet, disintegrating 1 tablet = 4 mg, By Mouth, Every 8 hours, PRN as needed for nausea/vomiting, # 9 tablet, 0 Refills,Maintenance, 10/14/19 23:05:00 EST, DIS Tablet, 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 Hematoma of leg(Confirmed) Active HIV disease(Confirmed) 2002 Active Hypercholesterolemia(Confirmed) 2005 Active HLD (hyperlipidemia)(Confirmed) Active HTN (hypertension)(Confirmed) Active Hypothyroidism(Confirmed) Active Skin infection(Confirmed) Active PVD (peripheral vascular disease)(Confirmed) Active 1sequelae, left sided weakness Results Radiology Reports * Exam Date Time Procedure Performing Provider Status 06/04/20 9:46 AM Chest Portable Palak Jasso; Aut h (Verified) Notes: (Chest Portable) Reason For Exam: Shortness of Breath RESULT: Chest Portable Chest Portable Hx of Present Illness: KYLE bilateral leg pain; Reason: Shortness of Breath; Clinical Question(s): CHF COMPARISON: 02/24/2020 FINDINGS: LINES AND TUBES: None. LUNGS AND PLEURA: Clear lungs. Normal pulmonary vascularity. No pleural effusion. No pneumothorax. HEART, MEDIASTINUM AND [place]: Heart is normal in size. Normal mediastinal and hilar contour. BONES AND SOFT TISSUES: No acute abnormality. IMPRESSION: No acute abnormality. WSN: [id number] Ordering Physician: Graeme Mckeon Dictated By: Larry Barragan MD Dictated Date/Time: 06/04/20 9:48 am Reviewed By: Larry Barragan MD Signed By: Larry Barragan MD Signed Date/Time: 06/04/20 9:48 am Transcribed By: LOGAN Transcribed Date/Time: 06/04/20 9:48 am Vital Signs Most recent to oldest [Reference Range]: 1 2 3 Oxygen Saturation [94-100 %] 96 % (06/05/20 11:00 AM) 96 % (06/05/20 7:00 AM) 95 % (06/05/20 4:54 AM) Pulse Rate [55-90 bpm] 89 bpm (06/05/20 11:00 AM) 74 bpm (06/05/20 7:00 AM) 87 bpm (06/05/20 4:54 AM) Blood Pressure [90-138/55-84 mm Hg] 136/81mm Hg (06/05/20 11:00 AM) 110/70mm Hg (06/05/20 7:00 AM) 107/70mm Hg (06/05/20 4:54 AM) Respiratory Rate [16-30 br/min] 16 br/min (06/05/20 2:09 PM) 16 br/min (06/05/20 12:36 PM) 16 br/min (06/05/20 11:36 AM) Temperature [96.8-100.4 DegF] 97.8 DegF (06/05/20 11:00 AM) 97.9 DegF (06/05/20 7:00 AM) 97.5 DegF (06/05/20 4:54 AM) Mode of Delivery (Oxygen) Room air (06/05/20 11:00 AM) Room air (06/05/20 7:00 AM) Room air (06/05/20 4:54 AM) Blood pressure sites Arm, right (06/05/20 11:00 AM) Arm, right (06/05/20 7:00 AM) Arm, left (06/05/20 4:54 AM) Temperature Route Oral (06/05/20 11:00 AM) Oral (06/05/20 7:00 AM) Oral (06/05/20 4:54 AM) Social History Social History Type Response Smoking Status Former smoker; Tobac co user in household: No; Type: Cigarettes; Other: quit in july 2016; Tobacco use times per day: half pack per day; Started at age: 11; entered on: 05/29/18 Sex
--- OUTSIDE RECORDS SUMMARY | 2023-02-21 14:48 | XMS_ITS | Continuity of Care Document ---
Author Name Unknown Organization [facility] Address [address] [place] [address]- Care Team Providers Care River Boat Captain Name Role Phone Thomas Bright Primary Care Physician Encounter [facility] Date(s): 04/07/20 - 05/07/20 [facility] [address] [place] [address]- [facility] Allergies, Adverse Reactions, Alerts Substance Reaction Severity Status Lamictal Hives, itch Active Tegretol Hallucinations, aggression A ctive Tylenol itching Active Lobster Persistent Severe Active Percocet 7.5/325 1 C/O: itching Active influenza virus vaccine, inactivated 2 Active traMADol Active oxyCODONE Persistent Mild Active 1makes pt itchy 2Hx of Guillain - [place] Immunizations Given and Recorded Vaccine Date Status Refusal Reason pneumococcal 23-valent vaccine 02/03/17 Given Not Given Vaccine Date Status Refusal Reason pneumococcal 23-valent vaccine 01/25/17 Not Given Patient Refuses Medications aspirin 81 mg oral delayed release tablet See Instructions, ALY GOINSA TODOS [place], # 30 tablet, 1 Refills, Maintenance, [id number], 175, cm, 02/26/20 14:11:00 EDT, Height, 87.5, kg, 02/26/20 14:11:00 EDT, Dry Weight Start Date: 04/12/20 Status: Ordered atorvastatin 80 mg oral tablet 1 tablet = 80 mg, By Mouth, Daily, # 30 tablet, 0 Refills, Maintenance, Tablet, Route to Pharmacy Electronically, [id number], [facility] Start Date: 04/02/18 Stop [...] 01/12/20 22:53:00 EDT, Route to Pharmacy Electronically, [facility]/pharmacy #[id number], 175, cm, 01/12/20 17:28:00 EDT, Height, [...] 0 Refills,Maintenance, 10/14/19 23:05:00 EST, DIS Tablet, [facility]/pharmacy #[id number], 175, cm, 09/12/19 10:20:00 EST,Height, [...] ant GERD (gastroesophageal reflu x disease)(Confirmed) 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
--- OUTSIDE RECORDS SUMMARY | 2023-02-21 14:48 | XMS_ITS | Continuity of Care Document ---
Author Name Unknown Organization [facility] ter Address [address] [place] [address]- Care Team Providers Care Manager Group Name Role Phone Thomas Bright Primary Care Physician Encounter [facility] [place] Date(s): 10/01/21 - 10/02/[address] [address] Discharge Disposition: A-D/C Home Attending Physician: Liz GM, Maryana Blount Admitting Physician: Marisela Castrejon MD Referring Physician: Not on Staff, Referring MD Allergies, Adverse Reactions, Alerts Substance Reaction Severity Status Lamictal Hives, itch Active Tegretol Hallucinations, aggression A ctive Tylenol itching Active Lobster Persistent Severe Active Percocet 7.5/325 1 C/O: itching Active influenza virus vaccine, inactivated 2 Active traMADol Active oxyCODONE Persistent Mild Active 1makes pt itchy 2Hx of Guillain - [place] Immunizations Given and Recorded Vaccine Date Status Refusal Reason pneumococcal 23-valent vaccine 02/03/17 Given Not Given Vaccine Date Status Refusal Reason pneumococcal 23-valent vaccine 01/25/17 Not Given Patient Refuses Medications atorvastatin 80 mg oral tablet 1 tablet = 80 mg, By Mouth, Daily, # 30 tablet, 0 Refills, Maintenance, Tablet, Route to Pharmacy Electronically, [id number], [facility] Start Date: 04/02/18 Stop Date: 05/02/18 Status: Ordered dicyclomine 20 mg oral tablet 1 tablet = 20 mg, By Mouth, 4 times a day, # 40 tablet, 0 Refills, Maintenance, 09/30/21 21:11:00 EST, Tablet, Partial fill upon patient request if the prescription is for a schedule II opioid drug. Start Date: 09/30/21 Stop Date: 10/10/21 Status: Ordered Dilaudid 2 mg oral tablet 0.5, By Mouth, Every 12 hours, PRN as needed for pain, for 3 days, # 3 tablet, 0 Refills, Acute 10/05/21 8:45:00 EST, 10/02/21 8:45:00 EST, Tablet, [facility]/pharmacy #[id number], Partial fill upon patient request if the prescription is for a schedule II opioid d... 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 Hematoma of leg(Confirmed) Active HIV disease(Confirmed) 2002 Active HLD (hyperlipidemia)(Confirmed) Active HTN (hypertension)(Confirmed) Active Hypothyroidism(Confirmed) Active Skin infection(Confirmed) Active PVD (peripheral vascular disease)(Confirmed) Active 1sequelae, left sided weakness Vital Signs Most recent to oldest [Reference Range]: 1 2 3 Oxygen Saturation [94-100 %] 97 % (10/02/21 7:51 AM) 95 % (10/02/21 3:22 AM) 99 % (10/02/21 1:01 AM) Pulse Rate [55-90 bpm] 87 bpm (10/02/21 7:51 AM) 72 bpm (10/02/21 3:22 AM) 68 bpm (10/02/21 1:01 AM) Blood Pressure [90-138/55-84 mm Hg] 97/59mm Hg (10/02/21 7:51 AM) 95/64mm Hg (10/02/21 3:22 AM) 133/69mm Hg (10/02/21 1:01 AM) Respiratory Rate [16-30 br/min] 18 br/min (10/02/21 10:10 AM) 18 br/min (10/02/21 9:56 AM) 17 br/min (10/02/21 7:51 AM) Temperature [96.8-100.4 DegF] 98.3 DegF (10/02/21 7:51 AM) 97.9 DegF (10/02/21 3:22 AM) 98.2 DegF (10/02/21 1:01 AM) Mode of Delivery (Oxygen) Room air (10/02/21 7:51 AM) Room air (10/02/21 3:22 AM) Room air (10/02/21 1:01 AM) Blood pressure sites Arm, right (10/02/21 7:51 AM) Arm, right (10/02/21 3:22 AM) Arm, right (10/02/21 1:01 AM) Temperature Route Oral (10/02/21 7:51 AM) Oral (10/02/21 3:22 AM) Oral (10/02/21 1:01 AM) Social History Social History Type Response Smoking Status Former smoker; Tobac co user in household: No; Type: Cigarettes; Other: quit in july 2016; Tobacco use times per day: half pack per day; Started at age: 11; entered on: 05/29/18 Sex
--- OUTSIDE RECORDS SUMMARY | 2023-02-21 14:48 | XMS_ITS | Continuity of Care Document ---
Author Name Unknown Organization [facility] ter Address [address] [place] [address]- Care Team Providers Care Data Programmer Name Role Phone Thomas Bright Primary Care Physician Encounter [facility] [place] Date(s): 10/14/19 - 10/15/[address] [address] [facility] Encounter Diagnosis Abdominal pain(Final) - 10/14/19 Discharge Disposition: A-D/C Home Attending Physician: Miguelangel Perez MD Admitting Physician: Miguelangel Perez MD Referring Physician: Not on Staff, Referring MD Allergies, Adverse Reactions, Alerts Substance Reaction Severity Status Lamictal Hives, itch Active Tegretol Hallucinations, aggression A ctive Tylenol itching Active Lobster Persistent Severe Active Percocet 7.5/325 1 C/O: itching Active influenza virus vaccine, inactivated 2 Active traMADol Active oxyCODONE Persistent Mild Active 1makes pt itchy 2Hx of Guillain - [place] Immunizations Given and Recorded Vaccine Date Status Refusal Reason pneumococcal 23-valent vaccine 02/03/17 Given Not Given Vaccine Date Status Refusal Reason pneumococcal 23-valent vaccine 01/25/17 Not Given Patient Refuses Medications atorvastatin 80 mg oral tablet 1 tablet = 80 mg, By Mouth, Daily, # 30 tablet, 0 Refills, Maintenance, Tablet, Route to Pharmacy Electronically, [id number], [facility] Start Date: 04/02/18 Stop [...] 0 Refills,Maintenance, 10/14/19 23:05:00 EST, DIS Tablet, [facility]/pharmacy #[id number], 175, cm, 09/12/19 10:20:00 EST,Height, 86, kg, 09/04/19 11:50:00 EST, Dry Weight Start Date: 10/14/19 Stop Date: 10/17/19 Status: Ordered Pradaxa 150 mg oral capsule [...] ant GERD (gastroesophageal reflu x disease)(Confirmed) 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 Hematoma of leg(Confirmed) Active HIV disease(Confirmed) 2002 Active Hypercholesterolemia(Confirmed) 2005 Active HLD (hyperlipidemia)(Confirmed) Active HTN (hypertension)(Confirmed) Active Hypothyroidism(Confirmed) Active Skin infection(Confirmed) Active PVD (peripheral vascular disease)(Confirmed) Active 1sequelae, left sided weakness Vital Signs Most recent to oldest [Reference Range]: 1 2 3 Oxygen Saturation [94-100 %] 99 % (10/14/19 11:14 PM) 99 % (10/14/19 9:55 PM) 100 % (10/14/19 8:00 PM) Pulse Rate [55-90 bpm] 84 bpm (10/14/19 11:14 PM) 80 bpm (10/14/19 9:55 PM) 84 bpm (10/14/19 8:00 PM) Blood Pressure [90-138/55-84 mm Hg] 116/75mm Hg (10/14/19 11:14 PM) 119/73mm Hg (10/14/19 9:55 PM) 119/74mm Hg (10/14/19 8:00 PM) Respiratory Rate [16-30 br/min] 17 br/min (10/14/19 11:14 PM) 18 br/min (10/14/19 9:59 PM) 17 br/min (10/14/19 9:55 PM) Temperature [96.8-100.4 DegF] 98.6 DegF (10/14/19 8:00 PM) 98.1 DegF (10/14/19 4:09 PM) Mode of Delivery (Oxygen) Room air (10/14/19 11:14 PM) Room air (10/14/19 9:55 PM) Room air (10/14/19 8:00 PM) Blood pressure sites Arm, right (10/14/19 11:14 PM) Arm, right (10/14/19 9:55 PM) Arm, left (10/14/19 8:00 PM) Temperature Route Oral (10/14/19 8:00 PM) Oral (10/14/19 4:09 PM) Social History Social History Type Response Smoking Status Former smoker; Tobac co user in household: No; Type: Cigarettes; Other: quit in july 2016; Tobacco use times per day: half pack per day; Started at age: 11; entered on: 05/29/18 Sex
--- OUTSIDE RECORDS SUMMARY | 2023-02-21 14:48 | XMS_ITS | Continuity of Care Document ---
Author Name Unknown Organization [facility] Address [address] [place] [address]- Care Team Providers Care Trombone Slide Assembler Name Role Phone Thomas Bright Primary Care Physician [place] [facility]/09/21 - 08/11/[address] [address] Encounter Diagnosis Vaccine reaction(Final) - 08/09/21 Discharge Disposition: A-D/C Home Attending Physician: Shima Tavarez MD Admitting Physician: Ilia Mckeon MD Referring Physician: Not on Staff, Referring MD Allergies, Adverse Reactions, Alerts Substance Reaction Severity Status Lamictal Hives, itch Active Tegretol Hallucinations, aggression A ctive Tylenol itching Active Lobster Persistent Severe Active Percocet 7.5/325 1 C/O: itching Active influenza virus vaccine, inactivated 2 Active traMADol Active oxyCODONE Persistent Mild Active 1makes pt itchy 2Hx of Guillain - [place] Immunizations Given and Recorded Vaccine Date Status Refusal Reason pneumococcal 23-valent vaccine 02/03/17 Given Not Given Vaccine Date Status Refusal Reason pneumococcal 23-valent vaccine 01/25/17 Not Given Patient Refuses Medications atorvastatin 80 mg oral tablet 1 tablet = 80 mg, By Mouth, Daily, # 30 tablet, 0 Refills, Maintenance, Tablet, Route to Pharmacy Electronically, [id number], [facility] Start Date: 04/02/18 Stop [...] 2 mg, Injection, IV Push Slowly, Every 6 hours, PRN for Pain , Severe, Routine, 08/10/21 8:17:00 EST Start Date: 08/10/21 Stop Date: 08/12/21 Status: Discontinued pantoprazole 40 mg oral delayed [...] Active GERD (gastroesophageal reflu x disease)(Confirmed) 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 Hematoma of leg(Confirmed) Active HIV disease(Confirmed) 2002 Active HLD (hyperlipidemia)(Confirmed) Active HTN (hypertension)(Confirmed) Active Hypothyroidism(Confirmed) Active Skin infection(Confirmed) Active PVD (peripheral vascular disease)(Confirmed) Active 1sequelae, left sided weakness Results Orders for Microbiology Reports Name Date Blood Culture 08/09/21 Blood Culture #2 08/09/21 Microbiology Reports TEST:Blood Culture, Second Order STATUS:Unauthenticated BODY SITE: SOURCE:Blood COLLECTED DATE/TIME:08/09/21 1:35 PM Blood Culture, Second Order SPECIMEN DESCRIPTION : BLOOD NO SITE SPECIAL REQUESTS : NONE CULTURE : NO GROWTH AFTER 48 HOURS REPORT STATUS : PRELIMINARY REPORT TEST:Blood Culture STATUS:Unauthenticated BODY SITE: SOURCE:Blood COLLECTED DATE/TIME:08/09/21 1:09 PM Blood Culture SPECIMEN DESCRIPTION : BLOOD LAC SPECIAL REQUESTS : NONE CULTURE : NO GROWTH AFTER 48 HOURS REPORT STATUS : PRELIMINARY REPORT Radiology Reports * Exam Date Time Procedure Performing Provider Status 08/09/21 5:37 PM Chest Portable Amy Arce; Emeli (Verified) Notes: (Chest Portable) Reason For Exam: Chest Pain;Other: RESULT: Chest Portable PROCEDURE: Chest Portable CLINICAL INDICATION: 45 years old Male with Hx of Present Illness: pt had Covid vaccine yesterday and developed generalized weakness and difficulty walking since. Chest Pain; COMPARISON: Multiple chest radiographs 2017 through August 02, 2021.. FINDINGS: Portable AP semierect view of the chest performed at 5:20 PM. Lines and tubes: Several EKG leads project over the chest. Lungs and pleura: Lungs are clear as visualized. No pleural effusions.No evidence of pneumothorax. Heart, mediastinum and bronson: The cardiomediastinal silhouette and pulmonary vasculature are unremarkable. No cardiomegaly or pulmonary venous hypertension. Bones and soft tissues: [Very mild dextroscoliosis again seen. IMPRESSION: 1. No evidence of acute cardiopulmonary disease. Thank you for allowing me to participate in the care of this patient. WSN: [id number] Ordering Physician: Smooth Mera Dictated By: Carlos Paez MD Dictated Date/Time: 08/09/21 5:45 pm Reviewed By: Carlos Paez MD Signed By: aCrlos Paez MD Signed Date/Time: 08/09/21 5:45 pm Transcribed By: LOGAN Transcribed Date/Time: 08/09/21 5:43 pm Vital Signs Most recent to oldest [Reference Range]: 1 2 3 Height 175 cm (08/11/21 12:01 PM) 175 cm (08/11/21 6:54 AM) 175 cm (08/11/21 4:30 AM) Weight 82 kg (08/10/21 2:29 AM) 82 kg (08/10/21 2:28 AM) Oxygen Saturation [94-100 %] 98 % (08/11/21 12:01 PM) 97 % (08/11/21 6:54 AM) 96 % (08/11/21 4:30 AM) Pulse Rate [55-90 bpm] 70 bpm (08/11/21 12:01 PM) 66 bpm (08/11/21 6:54 AM) 77 bpm (08/11/21 4:30 AM) Body Mass Index [18.5-24.99] 26.78 *H* (08/10/21 2:29 AM) Blood Pressure [90-138/55-84 mm Hg] 107/64mm Hg (08/11/21 12:01 PM) 95/64mm Hg (08/11/21 6:54 AM) 96/57mm Hg (08/11/21 4:30 AM) Respiratory Rate [16-30 br/min] 18 br/min (08/11/21 12:01 PM) 16 br/min (08/11/21 11:48 AM) 16 br/min (08/11/21 6:54 AM) Temperature [96.8-100.4 DegF] 98.5 DegF (08/11/21 12:01 PM) 98.6 DegF (08/11/21 6:54 AM) 98 DegF (08/11/21 4:30 AM) Mode of Delivery (Oxygen) Room air (08/11/21 12:01 PM) Room air (08/11/21 6:54 AM) Room air (08/11/21 4:30 AM) Blood pressure sites Arm, left (08/11/21 12:01 PM) Arm, right (08/11/21 6:54 AM) Arm, left (08/11/21 4:30 AM) Temperature Route Temporal (08/11/21 12:01 PM) Temporal (08/11/21 6:54 AM) Oral (08/11/21 4:30 AM) Dry Weight 82 kg (08/10/21 2:29 AM) Weight Obtained Via Bed scale (08/10/21 2:28 AM) Social History Social History Type Response Smoking Status Former smoker; Tobac co user in household: No; Type: Cigarettes; Other: quit in july 2016; Tobacco use times per day: half pack per day; Started at age: 11; entered on: 05/29/18 Sex
--- OUTSIDE RECORDS SUMMARY | 2023-02-21 14:48 | XMS_ITS | Continuity of Care Document ---
Author Name Unknown Organization [facility] Address [address] [place] [address]- Care Team Providers Care Director Consumer Affairs Name Role Phone Thomas Bright Primary Care Physician Encounter 10/15/20 - 11/26/20 [facility] [address] [place] [address]- Discharge Disposition: CLIENT NO LONGER REQUIRES SKILLED CARE Allergies, Adverse Reactions, Alerts Substance Reaction Severity Status Lamictal Hives, itch Active Tegretol Hallucinations, aggression A ctive influenza virus vaccine, inactivated 1 Active traMADol Active oxyCODONE Persistent Mild Active Tylenol itching Active Lobster Persistent Severe Active Percocet 7.5/325 2 C/O: itching Active 1Hx of Guillain - [place] 2makes pt itchy Immunizations Given and Recorded Vaccine Date Status Refusal Reason pneumococcal 23-valent vaccine 02/03/17 Given Not Given Vaccine Date Status Refusal Reason pneumococcal 23-valent vaccine 01/25/17 Not Given Patient Refuses Medications aspirin 81 mg oral delayed release tablet See Instructions, ALY GOINSA TODOS [place], # 30 tablet, 1 Refills, Maintenance, [facility], 175, cm, 02/26/20 14:11:00 EDT, Height, 87.5, kg, 02/26/20 14:11:00 EDT, Dry Weight Start Date: 04/12/20 Status: Ordered atorvastatin 80 mg oral tablet 1 tablet = 80 mg, By Mouth, Daily, # 30 tablet, 0 Refills, Maintenance, Tablet, Route to Pharmacy Electronically, [id number], [facility] Start Date: 04/02/18 Stop Date: [...] 0 Refills, Maintenance, 10/22/20 8:48:00 EST, Gel, [facility]/pharmacy #[id number], Partial fill upon patient request if the prescription is for a schedule... Start Date: 10/22/20 Status: Ordered enoxaparin 80 mg/0.8 mL injectable solution 0.9 mL = 90 mg, Subcutaneous Injection, Every 12 hours, please stop when INR 2- 3, PCP/VNA will be closely monitoring, # 18 mL, 0 Refills, Maintenance, 10/29/20 9:12:00 EST, Injection, [facility]/pharmacy #[id number], Partial fill upon patient [...] 10/22/20 8:48:00 EST, Route to Pharmacy Electronically, [facility]/pharmacy #[id number], Partial fill upon patient [...] 0 Refills, Maintenance, 10/29/20 9:13:00 EST, Tablet, [facility]/pharmacy #[id number], Partial fill upon patient request if the prescription is for a schedule II opioid drug., 175, cm, 10/28/20 10:07:00 EST, Height, 8... 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
--- OUTSIDE RECORDS SUMMARY | 2023-02-21 14:48 | XMS_ITS | Continuity of Care Document ---
Author Name Unknown Organization [facility] Address [address] [place] [address]- Care Team Providers Care Customer Logistics Manager Name Role Phone Thomas Bright Primary Care Physician Encounter [facility] Date(s): 12/16/21 - 01/15/22 [facility] [address] [place] [address], [place] [address] Attending Physician: Román Adams Admitting Physician: AdmRomán colón Referring Physician: AdmtrRomán Allergies, Adverse Reactions, Alerts Substance Reaction Severity Status Lamictal Hives, itch Active Tegretol Hallucinations, aggression A ctive influenza virus vaccine, inactivated 1 Active oxyCODONE Persistent Mild Active traMADol Active Tylenol itching Active Lobster Persistent Severe Active Percocet 7.5/325 2 C/O: itching Active 1Hx of Guillain - [place] 2makes pt itchy Immunizations Given and Recorded Vaccine Date Status Refusal Reason pneumococcal 23-valent vaccine 02/03/17 Given Not Given Vaccine Date Status Refusal Reason pneumococcal 23-valent vaccine 01/25/17 Not Given Patient Refuses Medications atorvastatin 80 mg oral tablet 1 tablet = 80 mg, By Mouth, Daily, # 30 tablet, 0 Refills, Maintenance, Tablet, Route to Pharmacy Electronically, [id number], [facility] Start Date: [...] Refills, Maintenance, 10/15/21 21:12:00 EST, DIS Tablet, [facility]/pharmacy #[id number], Partial fill upon patient request if the [...] Active GERD (gastroesophageal reflu x disease)(Confirmed) 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
--- OUTSIDE RECORDS SUMMARY | 2023-02-21 14:48 | XMS_ITS | Continuity of Care Document ---
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 Name Role Phone Thomas Bright Primary Care Physician [place] [facility] [place] - 03/28/[address] [address] Discharge Disposition: A-D/C Home Attending Physician: Claudia Valladares MD Admitting Physician: Tristan Vitale MD Referring Physician: Not on Staff, Referring MD Allergies, Adverse Reactions, Alerts Substance Reaction Severity Status Lamictal Hives, itch Active Tegretol Hallucinations, aggression A ctive Tylenol itching Active Lobster Persistent Severe Active Percocet 7.5/325 1 C/O: itching Active influenza virus vaccine, inactivated 2 Active traMADol Active oxyCODONE Persistent Mild Active 1makes pt itchy 2Hx of Guillain - [place] Immunizations Given and Recorded Vaccine Date Status Refusal Reason pneumococcal 23-valent vaccine 02/03/17 Given Not Given Vaccine Date Status Refusal Reason pneumococcal 23-valent vaccine 01/25/17 Not Given Patient Refuses Medications atorvastatin 80 mg oral tablet 1 tablet = 80 mg, By Mouth, Daily, # 30 tablet, 0 Refills, Maintenance, Tablet, Route to Pharmacy Electronically, [id number], [facility] Start Date: 04/02/18 Stop Date: [...] 2 mg, Injection, IV Push Slowly, Once, PRN for Pain , Severe, Routine, 03/28/22 2:48:00 EDT Start Date: 03/28/22 Stop Date: 03/28/22 Status: Completed ondansetron 4 mg oral tablet, disintegrating 1 tablet = 4 mg, By Mouth, Every 8 hours, PRN as needed for nausea/vomiting, # 10 tablet, 0 Refills, Maintenance, 10/15/21 21:12:00 EST, DIS Tablet, [facility]/pharmacy #[id number], Partial fill upon patient request if the [...] Active GERD (gastroesophageal reflu x disease)(Confirmed) Active 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 is from home. Pt. came home from PCP and fall asleep , it was hard to wake him up per family. ? of Syncope.; Reason: Pain; Clinical Question(s): Fracture COMPARISON: None. FINDINGS: No fractures or bone lesions. There is mild calcaneal spurring at the attachment of the plantar fascia and Achilles tendon. No arthritic changes. Normal soft tissues. IMPRESSION: There is no evidence of acute fracture or dislocation. WSN: [id number] Ordering Physician: Aileen Santoro Dictated By: Maame Hill MD Dictated Date/Time: 03/27/22 7:51 pm Reviewed By: Maame Hill MD Signed By: Maame Hill MD Signed Date/Time: 03/27/22 7:51 pm Transcribed By: LOGAN Transcribed Date/Time: 03/27/22 7:49 pm Vital Signs Most recent to oldest [Reference Range]: 1 2 3 Oxygen Saturation [94-100 %] 97 % (03/28/22 7:54 AM) 99 % (03/28/22 4:30 AM) 97 % (03/28/22 12:08 AM) Pulse Rate [55-90 bpm] 60 bpm (03/28/22 7:54 AM) 65 bpm (03/28/22 4:30 AM) 62 bpm (03/28/22 12:08 AM) Blood Pressure [90-138/55-84 mm Hg] 108/65mm Hg (03/28/22 7:54 AM) 107/69mm Hg (03/28/22 4:30 AM) 115/77mm Hg (03/28/22 12:08 AM) Respiratory Rate [16-30 br/min] 20 br/min (03/28/22 7:54 AM) 21 br/min (03/28/22 4:30 AM) 18 br/min (03/28/22 2:26 AM) Temperature [96.8-100.4 DegF] 97.5 DegF (03/28/22 7:54 AM) 97.5 DegF (03/28/22 4:30 AM) 97 DegF (03/28/22 12:08 AM) Mode of Delivery (Oxygen) Room air (03/28/22 7:54 AM) Room air (03/28/22 4:30 AM) Room air (03/28/22 12:08 AM) Blood pressure sites Arm, left (03/28/22 7:54 AM) Arm, right (03/28/22 4:30 AM) Arm, right (03/28/22 12:08 AM) Temperature Route Oral (03/28/22 7:54 AM) Oral (03/28/22 4:30 AM) Oral (03/28/22 12:08 AM) Social History Social History Type Response Smoking Status Never (less than 100 in lifetime) entered on: 10/25/21 Sex
--- OUTSIDE RECORDS SUMMARY | 2023-02-21 14:48 | XMS_ITS | Continuity of Care Document ---
Author Name Unknown Organization [facility] Address [address] [place] [address]- Care Team Providers Care Toggler Name Role Phone Thomas Bright Primary Care Physician [place] [facility] [place]20 [facility] [address] [place], [place] [address] Attending Physician: Anselmo Mendieta MD Admitting [...] 1makes pt itchy 2Hx of Guillain - [place] Immunizations Given and Recorded Vaccine Date Status Refusal Reason pneumococcal 23-valent vaccine 02/03/17 Given Not Given Vaccine Date Status Refusal Reason pneumococcal 23-valent vaccine 01/25/17 Not Given Patient Refuses Medications aspirin 81 mg oral delayed release tablet See Instructions, [facility]IN[facility] [place], # 30 tablet, 1 Refills, Maintenance, [id number], 175, cm, 02/26/20 14:11:00 EDT, Height, 87.5, kg, 02/26/20 14:11:00 EDT, Dry Weight Start Date: 04/12/20 Status: Ordered atorvastatin 80 mg oral tablet 1 tablet = 80 mg, By Mouth, Daily, # 30 tablet, 0 Refills, Maintenance, Tablet, Route to Pharmacy Electronically, [id number], [facility] Start Date: 04/02/18 [...] 0 Refills, Maintenance, 10/22/20 8:48:00 EST, Gel, [facility]/pharmacy #[id number], Partial fill upon patient request if [...] 0 Refills, Maintenance, 10/29/20 9:13:00 EST, Tablet, [facility]/pharmacy #[id number], Partial fill upon patient request if the prescription is for a schedule II opioid drug., 175, cm, 10/28/20 10:07:00 EST, Height, 8... 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 Hematoma of leg(Confirmed) Active HIV disease(Confirmed) 2003 Active Hypercholesterolemia(Confirmed) 2006 Active HLD (hyperlipidemia)(Confirmed) Active HTN (hypertension)(Confirmed) Active Hypothyroidism(Confirmed) Active Skin infection(Confirmed) Active PVD (peripheral vascular disease)(Confirmed) Active 1sequelae, left sided weakness Vital Signs Most recent to oldest [Reference Range]: 1 Height 175 cm (11/19/20 11:45 AM) Weight 84.5 kg (11/19/20 11:45 AM) Pulse Rate [55-90 bpm] 104 bpm *H* (11/19/20 11:45 AM) Body Mass Index [18.5-24.99] 27.59 *H* (11/19/20 11:45 AM) Blood Pressure [90-138/55-84 mm Hg] 130/ 76mm Hg (11/19/20 11:45 AM) Blood pressure sites Arm, right (11/19/20 11:45 AM) Social History Social History Type Response Smoking Status Former smoker; Tobac co user in household: No; Type: Cigarettes; Other: quit in july 2016; Tobacco use times per day: half pack per day; Started at age: 11; entered on: 05/29/18 Sex
--- OUTSIDE RECORDS SUMMARY | 2023-02-21 14:48 | XMS_ITS | Continuity of Care Document ---
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 Role Phone Thomas Bright Primary Care Physician [phone] [place] [facility] [place] 09/13/22 - 10/13/22 [facility] [address] [place], [place] [address] Allergies, Adverse Reactions, Alerts Substance Reaction Severity Status Lamictal Hives, itch Active Tegretol Hallucinations, aggression A ctive Tylenol itching Active Lobster Persistent Severe Active Percocet 7.5/325 1 C/O: itching Active influenza virus vaccine, inactivated 2 Active traMADol Active oxyCODONE Persistent Mild Active 1makes pt itchy 2Hx of Guillain - [place] Immunizations Given and Recorded Vaccine Date Status Refusal Reason pneumococcal 23-valent vaccine 02/03/17 Given Not Given Vaccine Date Status Refusal Reason pneumococcal 23-valent vaccine 01/25/17 Not Given Patient Refuses Medications atorvastatin 80 mg oral tablet 1 tablet = 80 mg, By Mouth, Daily at bedtime, # 30 tablet, 0 Refills, Maintenance, Tablet, Route toPharmacy Electronically, [id number], [facility] Start Date: 04/02/18 Stop Date: [...] Active GERD (gastroesophageal reflux disease) Confirmed Active Guillain-[place] syndrome 1 Confirmed Active Hematoma of leg [...] Team Personnel Name: Joaquina Jerome RN Position: [facility] RN Member Role: Primary Care Nurse Name: Joselyn Sevilla RN Position: [facility] RN Member Role: Primary Care Nurse Name: Thomas Bright Position: [facility] Outreach Member Role: PCP Address: Address: [address] [place] [address] Name: Karmen Mandujano RN Position: [facility] Anjel RN Member Role: Primary Care Nurse Name: Margie Castanon RN Position: [facility] RN Member Role: Primary Care Nurse Name: Shahbaz Castaneda RN Position: [facility] RN Member Role: Primary Care Nurse Name: Justin Dailey MD Position: [facility] Infectious Disease MD Member Role: Lifetime Consulting Physician Address: Address: [address] [place] [address] [place] [address]- Name: Sophia Bell RN Position: [facility] RN Member Role: Primary Care Nurse Name: Veronica Davila RN Position: [facility] RN Member Role: Primary Care Nurse Name: Melva Herndon RN Position: [facility] RN Member Role: Primary Care Nurse Name: Karena Penaloza RN Position: [facility] RN Member Role: Primary Care Nurse Name: Fang Adams RN Position: [facility] Box Toe Buffer Member Role: Primary Care Nurse Name: Karri Jaramillo RN Position: [facility] RN Member Role: Primary Care Nurse Name: Consuelo Alvarenga RN Position: [facility] RN Member Role: Primary Care Nurse Name: Veronica Blanco RN Position: [facility] PCO RN Member Role: Primary Care Nurse Name: Ramsey Perez RN Position: [facility] RN Member Role: Primary Care Nurse Name: Lazaro Huffman RN Position: [facility] RN Member Role: Primary Care Nurse Name: Jacquelyn Juarez Position: [facility] RN Member Role: Primary Care Nurse Name: Jacquelyn Ramsey RN Position: [facility] RN Member Role: Primary Care Nurse Name: Jennifer Ghosh RN Position: [facility] RN Member Role: Primary Care Nurse Name: Qiana Mansfield RN Position: [facility] RN Member Role: Primary Care Nurse Name: Chuyita Ashley RN Position: [facility] RN Member Role: Primary Care Nurse Name: Elle Blackwood RN Position: [facility] Box [employer]e Buffer Member Role: Primary Care Nurse Name: Yamilex Arteaga RN Position: [facility] RN Member Role: Primary Care Nurse Name: Skip Harry RN Position: [facility] RN Member Role: Primary Care Nurse Name: Valentine Perrin RN Position: [facility] RN Member Role: Primary Care Nurse Name: Mark Howell RN Position: [facility] RN Member Role: Primary Care Nurse Name: Elaine Webb RN Position: [facility] RN Member Role: Primary Care Nurse Name: Stephanie Houser RN Position: [facility] RN Member Role: Primary Care Nurse Name: Amber Gu RN Position: [facility] RN Member Role: Primary Care Nurse Name: Reji Zimmerman Jr Position: [facility] JUSTYNA RN W/OE and Tasks Member Role: Primary Care Nurse Name: Dang Padilla RN Position: [facility] RN Member Role: Primary Care Nurse Name: Scot Anderson RN Position: [facility] RN Member Role: Primary Care Nurse Name: Luz Marina Byrd RN Position: [facility] RN Member Role: Primary Care Nurse Name: Joelle Sandoval RN Position: [facility] RN Member Role: Primary Care Nurse Name: Gideon Diaz RN Position: [facility] RN Member Role: Primary Care Nurse Name: Diana Anderson RN Position: [facility] RN Member Role: Primary Care Nurse Name: Thomas Betancur RN Position: [facility] RN Member Role: Primary Care Nurse Name: Vee Mcnamara RN Position: [facility] Box Toe Buffer Member Role: Primary Care Nurse Name: Nisreen Greenberg RN Position: [facility] Outreach Member Role: Primary Care Nurse Name: Lanny Bolton RN Position: [facility] RN Member Role: Primary Care Nurse Name: Anthony Carolina RN Position: [facility] RN Member Role: Primary Care Nurse Name: Ana Dupont RN Position: [facility] RN Member Role: Primary Care Nurse Name: Alyssia Durbin RN Position: [facility] RN Member Role: Primary Care Nurse Name: Afshan Galeano RN Position: [facility] SN RN Member Role: Primary Care Nurse Name: Reji Bright RN Position: [facility] RN Member Role: Primary Care Nurse Name: Estefanía Austin RN Position: [facility] RN Member Role: Primary Care Nurse Name: Sarah Carson RN Position: [facility] RN Member Role: Primary Care Nurse Name: Amira Hughes RN Position: [facility] RN Member Role: Primary Care Nurse Name: Rina Dunlap LPN Position: [facility] RN Member Role: Primary Care Nurse Name: Chiquis Callejas RN Position: [facility] Onco RN Member Role: Primary Care Nurse Name: Linda Rajput RN, I Position: [facility] RN Member Role: Primary Care Nurse Care Team Related Persons Name: SHAHBAZ MEADOWS Address: [address] [place] [address] Name: YOANDY TAYLOR Address: home [address] [address]
--- OUTSIDE RECORDS SUMMARY | 2023-02-21 14:48 | XMS_ITS | Continuity of Care Document ---
Author Name Unknown Organization [facility] Address [address] [place] [address]- Care Team Providers Care Chair Maker Name Role Phone Thomas Bright Primary Care Physician [phone] [facility] [place] Date(s): 10/25/21 - 10/25/[address] [address]- Encounter Diagnosis Leg pain(Final) - 10/25/21 AAA (abdominal aortic aneurysm)(Final) - 10/25/21 Discharge Disposition: A-D/C Home Attending Physician: Chiquis Bai MD Admitting Physician: Chiquis Bai MD Referring Physician: Not on Staff, Referring MD Allergies, Adverse Reactions, Alerts Substance Reaction Severity Status Lamictal Hives, itch Active Tegretol Hallucinations, aggression A ctive Tylenol itching Active Lobster Persistent Severe Active Percocet 7.5/325 1 C/O: itching Active influenza virus vaccine, inactivated 2 Active traMADol Active oxyCODONE Persistent Mild Active 1makes pt itchy 2Hx of Guillain - [place] Immunizations Given and Recorded Vaccine Date Status Refusal Reason pneumococcal 23-valent vaccine 02/03/17 Given Not Given Vaccine Date Status Refusal Reason pneumococcal 23-valent vaccine 01/25/17 Not Given Patient Refuses Medications atorvastatin 80 mg oral tablet 1 tablet = 80 mg, By Mouth, Daily, # 30 tablet, 0 Refills, Maintenance, Tablet, Route to Pharmacy Electronically, [id number], [facility] Start Date: 04/02/18 Stop Date: 05/02/18 Status: Ordered cyclobenzaprine 10 mg oral tablet 10 mg, 1, tablet, By Mouth, 3 times a day, # 6 tablet, Refills 0, Tot. Refills 0, Acute 10/27/21 21:41:00 EST, 10/25/21 21:40:00 EST, Route to Pharmacy Electronically, [facility]/pharmacy #[id number], Partial fill upon patient request if the prescription is for a... 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 Hematoma of leg(Confirmed) Active HIV disease(Confirmed) 2002 Active HLD (hyperlipidemia)(Confirmed) Active HTN (hypertension)(Confirmed) Active Hypothyroidism(Confirmed) Active Skin infection(Confirmed) Active PVD (peripheral vascular disease)(Confirmed) Active 1sequelae, left sided weakness Vital Signs Most recent to oldest [Reference Range]: 1 2 3 Oxygen Saturation [94-100 %] 98 % (10/25/21 8:34 PM) 98 % (10/25/21 7:49 PM) 96 % (10/25/21 6:09 PM) Pulse Rate [55-90 bpm] 81 bpm (10/25/21 8:34 PM) 79 bpm (10/25/21 7:49 PM) 84 bpm (10/25/21 6:09 PM) Blood Pressure [90-138/55-84 mm Hg] 108/71mm Hg (10/25/21 8:34 PM) 107/72mm Hg (10/25/21 6:09 PM) 102/66mm Hg (10/25/21 4:00 PM) Respiratory Rate [16-30 br/min] 18 br/min (10/25/21 8:34 PM) 18 br/min (10/25/21 7:49 PM) 18 br/min (10/25/21 6:09 PM) Temperature [96.8-100.4 DegF] 98 DegF (10/25/21 6:09 PM) 98.3 DegF (10/25/21 4:00 PM) 98.2 DegF (10/25/21 2:29 PM) Mode of Delivery (Oxygen) Room air (10/25/21 8:34 PM) Room air (10/25/21 7:49 PM) Room air (10/25/21 6:09 PM) Blood pressure sites Arm, right (10/25/21 6:09 PM) Arm, right (10/25/21 4:00 PM) Arm, left (10/25/21 2:29 PM) Temperature Route Oral (10/25/21 6:09 PM) Oral (10/25/21 4:00 PM) Oral (10/25/21 2:29 PM) Social History Social History Type Response Smoking Status Never (less than 100 in lifetime) entered on: 10/25/21 Sex
--- OUTSIDE RECORDS SUMMARY | 2023-02-21 14:48 | XMS_ITS | Continuity of Care Document ---
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 Role Phone Thomas Bright Primary Care Physician [place] [facility] [place] - 11/05/[address] [address]- Encounter Diagnosis Syncope(Final) - 11/03/21 Discharge Disposition: A-D/C Home Attending Physician: Bailey Romano DO Admitting Physician: Cristhian MG, Angelica Alarcon Referring Physician: Not on Staff, Referring MD Allergies, Adverse Reactions, Alerts Substance Reaction Severity Status Lamictal Hives, itch Active Tegretol Hallucinations, aggression A ctive Tylenol itching Active Lobster Persistent Severe Active Percocet 7.5/325 1 C/O: itching Active influenza virus vaccine, inactivated 2 Active traMADol Active oxyCODONE Persistent Mild Active 1makes pt itchy 2Hx of Guillain - [place] Immunizations Given and Recorded Vaccine Date Status Refusal Reason pneumococcal 23-valent vaccine 02/03/17 Given Not Given Vaccine Date Status Refusal Reason pneumococcal 23-valent vaccine 01/25/17 Not Given Patient Refuses Medications atorvastatin 80 mg oral tablet 1 tablet = 80 mg, By Mouth, Daily, # 30 tablet, 0 Refills, Maintenance, Tablet, Route to Pharmacy Electronically, [id number], [facility] Start Date: 04/02/18 [...] mg, By Mouth, Every 6 hours, PRN as needed for pain, for 3 days, # 12 tablet, 0 Refills, Acute 11/08/21 10:08:00 EDT, 11/05/21 10:08:00 EST, Tablet, [facility]/pharmacy #[id number], Partial fill upon patient request if the prescription is for a sched... 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 Hematoma of leg(Confirmed) Active HIV disease(Confirmed) 2002 Active HLD (hyperlipidemia)(Confirmed) Active HTN (hypertension)(Confirmed) Active Hypothyroidism(Confirmed) Active Skin infection(Confirmed) Active PVD (peripheral vascular disease)(Confirmed) Active 1sequelae, left sided weakness Results Radiology Reports * Exam Date Time Procedure Performing Provider Status 11/03/21 5:21 PM Chest 2 Views Frontal and Lat dT Bruner; Emeli (Verified) Notes: (Chest 2 Views Frontal and Lat) Reason For Exam: Chest Pain;Other: RESULT: Chest 2 Views Frontal and Lat Chest 2 Views Frontal and Lat Hx of Present Illness: Pt was home and has had a head ache for about 3 days and now today with dizzyness causeing him to fall down. Pt ststes that he felt that he lost consiousness after feeling dizzy. His partner was in the other room when he herd him fall and says he was out; Reason: Other:; Chest Pain; Clinical Question(s): Other: COMPARISON: [facility], most recent dated 10/15/2021 FINDINGS: LINES AND TUBES: None. LUNGS AND PLEURA: No focal consolidation. Normal pulmonary vascularity. No pleural effusion. No pneumothorax. HEART, MEDIASTINUM AND [place]: Prominent cardiac silhouette. Normal upper mediastinal and hilar contour. BONES AND SOFT TISSUES: No acute abnormality. Old left eighth posterior rib fracture. IMPRESSION: No radiographic evidence of acute cardiopulmonary disease. WSN: [id number] Ordering Physician: Jeanette Vazquez Dictated By: Betsy Pittman MD Dictated Date/Time: 11/03/21 5:27 pm Reviewed By: Betsy Pittman MD Signed By: Betsy Pittman MD Signed Date/Time: 11/03/21 5:27 pm Transcribed By: LOGAN Transcribed Date/Time: 11/03/21 5:25 pm Vital Signs Most recent to oldest [Reference Range]: 1 2 3 Height 175 cm (11/05/21 4:00 AM) 175 cm (11/05/21 12:44 AM) 175 cm (11/04/21 8:04 PM) Weight 86.7 kg (11/03/21 10:56 PM) 87 kg (11/03/21 10:48 PM) Oxygen Saturation [94-100 %] 96 % (11/05/21 7:37 AM) 94 % (11/05/21 4:00 AM) 95 % (11/05/21 12:44 AM) Pulse Rate [55-90 bpm] 71 bpm (11/05/21 7:37 AM) 80 bpm (11/05/21 4:00 AM) 77 bpm (11/05/21 12:44 AM) Body Mass Index [18.5-24.99] 28.41 *H* (11/03/21 10:48 PM) Blood Pressure [90-138/55-84 mm Hg] 100/57mm Hg (11/05/21 7:37 AM) 104/56mm Hg (11/05/21 4:00 AM) 109/69mm Hg (11/05/21 12:44 AM) Respiratory Rate [16-30 br/min] 16 br/min (11/05/21 10:22 AM) 16 br/min (11/05/21 8:59 AM) 20 br/min (11/05/21 7:37 AM) Temperature [96.8-100.4 DegF] 97.7 DegF (11/05/21 7:37 AM) 97.9 DegF (11/05/21 4:00 AM) 98.0 DegF (11/05/21 12:44 AM) Mode of Delivery (Oxygen) Room air (11/05/21 7:37 AM) Room air (11/05/21 4:00 AM) Room air (11/05/21 12:44 AM) Blood pressure sites Arm, right (11/05/21 7:37 AM) Arm, right (11/05/21 4:00 AM) Arm, right (11/05/21 12:44 AM) Temperature Route Oral (11/05/21 7:37 AM) Oral (11/05/21 4:00 AM) Oral (11/05/21 12:44 AM) Dry Weight 87 kg (11/03/21 10:48 PM) Weight Obtained Via Bed scale (11/03/21 10:56 PM) Social History Social History Type Response Smoking Status Never (less than 100 in lifetime) entered on: 10/25/21 Sex
--- OUTSIDE RECORDS SUMMARY | 2023-02-21 14:48 | XMS_ITS | Continuity of Care Document ---
Author Name Unknown Organization [facility] Address [address] [place] [address]- Care Team Providers Care Classified Ad Clerk Name Role Phone Thomas Bright Primary Care Physician Encounter [facility] Date(s): 12/29/22 - 01/28/23 [facility] [address] [place], [place] [address] Attending Physician: Román Adams Admitting Physician: AdmRomán colón Referring Physician: AdmtrRomán Allergies, Adverse Reactions, Alerts Substance Reaction Severity Status Lamictal Hives, itch Active Tegretol Hallucinations, aggression A ctive Tylenol itching Active Lobster Persistent Severe Active Percocet 7.5/325 1 C/O: itching Active influenza virus vaccine, inactivated 2 Active traMADol Active oxyCODONE Persistent Mild Active 1makes pt itchy 2Hx of Guillain - [place] Immunizations Given and Recorded Vaccine Date Status Refusal Reason pneumococcal 23-valent vaccine 02/03/17 Given Not Given Vaccine Date Status Refusal Reason pneumococcal 23-valent vaccine 01/25/17 Not Given Patient Refuses Medications atorvastatin 80 mg oral tablet 1 tablet = 80 mg, By Mouth, Daily at bedtime, # 30 tablet, 0 Refills, Maintenance, Tablet, Route toPharmacy Electronically, [id number], [facility] 3 Start Date: 04/02/18 Stop [...] Active GERD (gastroesophageal reflux disease) Confirmed Active 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 Hematoma of leg Confirmed Active HIV disease Confirmed 2002 Active HLD (hyperlipidemia) Confirmed Active HTN (hypertension) Confirmed Active Hypothyroidism Confirmed Active Skin infection Confirmed Active PVD (peripheral vascular disease) Confirmed Active 1sequelae, left sided weakness Social History Social History Type Response Smoking Status Never (less than 100 in lifetime) entered on: 10/25/21 Sex Hospital Progress note * Migdalia Davies: PERFORM, SIGN, VERIFY Event Display: Progress Note Hospital Authored Date: [id number] Patient: CARLOS HAYDEN Age: 41 years Sex: Male : 1975 Associated Diagnoses: None Author: Migdalia Davies Findings Narrative/Incidental Patient awake alert. Explained discharge instructions via his partner who spoke Spainish. Explainedwhen to take next scheduled medications toay. Explained to patients partner seizure first aide. Patient partner concerned that know one address left leg pain that patient has had since surgery over the past month. Emphsized that if pain continues and left leg becomes hard swollen to get to [facility] immediately. Patient medicated for pain prior to discharge. Left leg with healed incision no edema or reddness noted. Patient home with partner.. Patient Care team information Care Team Personnel Name: Joselyn Sevilla RN Position: [facility] RN Member Role: Primary Care Nurse Name: Thomas Bright Position: [facility] Outreach Member Role: PCP Address: Address: [address] [place] [address] Name: Karmen Mandujano RN Position: [facility] Rad RN Member Role: Primary Care Nurse Name: Margie Castanon RN Position: [facility] RN Member Role: Primary Care Nurse Name: Shahbaz Castaneda RN Position: [facility] RN Member Role: Primary Care Nurse Name: Justin Dailey MD Position: [facility] Physician - Infectious Disease Member Role: Lifetime Consulting Physician Address: Address: [address] [place] [address] [address] Name: Sophia Bell RN Position: [facility] RN Member Role: Primary Care Nurse Name: Veronica Davila RN Position: [facility] RN Member Role: Primary Care Nurse Name: Melva Herndon RN Position: [facility] RN Member Role: Primary Care Nurse Name: Karena Penaloza RN Position: [facility] RN Member Role: Primary Care Nurse Name: Fang Adams RN Position: [facility] Tin Plater Member Role: Primary Care Nurse Name: Karri Jaramillo RN Position: [facility] RN Member Role: Primary Care Nurse Name: Consuelo Alvarenga RN Position: [facility] RN Member Role: Primary Care Nurse Name: Veronica Blanco RN [facility] RN Member Role: Primary Care Nurse Name: Lazaro Huffman RN Position: [facility] RN Member Role: Primary Care Nurse Name: Jacquelyn Juarez Position: [facility] RN Member Role: Primary Care Nurse Name: Jacquelyn Ramsey RN Position: [facility] RN Member Role: Primary Care Nurse Name: Qiana Mansfield RN Position: [facility] RN Member Role: Primary Care Nurse Name: Chuyita Ashley RN Position: [facility] RN Member Role: Primary Care Nurse Name: Elle Blackwood RN Position: [facility] Tin Plater Member Role: Primary Care Nurse Name: Yamilex Arteaga RN Position: [facility] RN Member Role: Primary Care Nurse Name: Skip Harry RN Position: [facility] RN Member Role: Primary Care Nurse Name: Valentine Perrin RN Position: [facility] RN Member Role: Primary Care Nurse Name: Mark Howell RN Position: [facility] RN Member Role: Primary Care Nurse Name: Elaine Webb RN Position: [facility] RN Member Role: Primary Care Nurse Name: Stephanie Houser RN Position: [facility] RN Member Role: Primary Care Nurse Name: Amber Gu RN Position: [facility] RN Member Role: Primary Care Nurse Name: Reji Zimmerman Jr Position: [facility] ED RN W/OE and Tasks Member Role: Primary Care Nurse Name: Dang Padilla RN Position: [facility] RN Member Role: Primary Care Nurse Name: Scot Anderson RN Position: [facility] RN Member Role: Primary Care Nurse Name: Luz Marina Byrd RN Position: [facility] RN Member Role: Primary Care Nurse Name: Joelle Sandoval RN Position: [facility] RN Member Role: Primary Care Nurse Name: Gideon Diaz RN Position: [facility] Onco RN Member Role: Primary Care Nurse Name: Diana Anderson RN Position: [facility] RN Member Role: Primary Care Nurse Name: Thomas Betancur RN Position: [facility] RN Member Role: Primary Care Nurse Name: Vee Mcnamara RN Position: [facility] Tin Plater Member Role: Primary Care Nurse Name: Nisreen Greenberg RN Position: [facility] Outreach Member Role: Primary Care Nurse Name: Lanny Bolton RN Position: [facility] RN Member Role: Primary Care Nurse Name: Anthony Carolina RN Position: [facility] RN Member Role: Primary Care Nurse Name: Ana Dupont RN Position: [facility] RN Member Role: Primary Care Nurse Name: Alyssia Durbin RN Position: [facility] RN Member Role: Primary Care Nurse Name: Afshan Galeano RN Position: [facility] SN RN Member Role: Primary Care Nurse Name: Reji Bright RN Position: [facility] RN Member Role: Primary Care Nurse Name: Estefanía Austin RN Position: [facility] RN Member Role: Primary Care Nurse Name: Sarah Carson RN Position: [facility] RN Member Role: Primary Care Nurse Name: Amira Hughes RN Position: [facility] RN Member Role: Primary Care Nurse Name: Rina Dunlap LPN Position: [facility] RN Member Role: Primary Care Nurse Name: Chiquis Callejas RN Position: [facility] Onco RN Member Role: Primary Care Nurse Name: Linda Rajput RN, I Position: [facility] RN Member Role: Primary Care Nurse Care Team Related Persons Name: SHAHBAZ MEADOWS Address: [address] [place] [address] Name: YOANDY TAYLOR Address: home [address] [address]
--- OUTSIDE RECORDS SUMMARY | 2023-02-21 14:48 | XMS_ITS | Continuity of Care Document ---
Author Name Unknown Organization [facility] Address [address] [place] [address]- Care Team Providers Care Rail Car Loader Name Role Phone Thomas Birght Primary Care Physician Encounter [facility] [place] Date(s): 03/22/22 - 03/22/[address] [address]- Encounter Diagnosis Leg pain(Final) - 03/22/22 Discharge Disposition: A-D/C Home Attending Physician: Chicho Cortez MD Admitting Physician: Chicho Cortez MD Referring Physician: Not on Staff, Referring MD Allergies, Adverse Reactions, Alerts Substance Reaction Severity Status Lamictal Hives, itch Active Tegretol Hallucinations, aggression A ctive oxyCODONE Persistent Mild Active Tylenol itching Active Lobster Persistent Severe Active Percocet 7.5/325 1 C/O: itching Active influenza virus vaccine, inactivated 2 Active traMADol Active 1makes pt itchy 2Hx of Guillain - [place] Immunizations Given and Recorded Vaccine Date Status Refusal Reason pneumococcal 23-valent vaccine 02/03/17 Given Not Given Vaccine Date Status Refusal Reason pneumococcal 23-valent vaccine 01/25/17 Not Given Patient Refuses Medications atorvastatin 80 mg oral tablet 1 tablet = 80 mg, By Mouth, Daily, # 30 tablet, 0 Refills, Maintenance, Tablet, Route to Pharmacy Electronically, [id number], [facility] Start Date: 04/02/18 Stop [...] Moderate, and SBP greater than 100, Routine, 03/22/22 15:57:00 EDT, Stop date Limited # of times Start Date: 03/22/22 Status: Ordered ondansetron 4 mg oral tablet, disintegrating 1 tablet = 4 mg, By Mouth, Every 8 hours, PRN Nausea & Vomiting, # 9 tablet, 0 Refills, Maintenance, 02/22/22 14:58:00 EDT, Tablet, [facility]acy #[id number], Partial fill upon patient request if the prescription is for a schedule II opioid drug., 175, cm, 0... Start Date: 02/22/22 Stop Date: 02/25/22 Status: Ordered ondansetron 4 mg oral tablet, disintegrating 1 tablet = 4 mg, By Mouth, Every 8 hours, PRN as needed for nausea/vomiting, for 3 days, # 9 tablet, 0 Refills, Acute 03/25/22 20:16:00 EDT, 03/22/22 20:16:00 EDT, DIS Tablet, [id number], Partial fill upon patient request if the prescription i... Start Date: 03/22/22 Stop Date: 03/25/22 Status: Ordered ondansetron 4 mg oral tablet, disintegrating 1 tablet = 4 mg, By Mouth, Every 8 hours, PRN as needed for nausea/vomiting, # 10 tablet, 0 Refills, Maintenance, 10/15/21 21:12:00 EST, DIS Tablet, [facility]/pharmacy #[id number], Partial fill upon patient request if the prescription is for a schedule II opioid... Start Date: 10/15/21 Status: Ordered oxyCODONE 5 mg oral tablet 5 mg, 1, tablet, By Mouth, Every 6 hours, PRN, for 5 days, # 7 tablet, Refills 0, Tot. Refills 0, Acute 03/27/22 20:16:00 EDT, as needed for pain, 03/22/22 20:16:00 EDT, Route to Pharmacy Electronically, [facility]/pharmacy #[id number], Partial fill upon patient r... 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) 1 Active Hematoma of leg(Confirmed) Active HIV disease(Confirmed) 2002 Active HLD (hyperlipidemia)(Confirmed) Active HTN (hypertension)(Confirmed) Active Hypothyroidism(Confirmed) Active Skin infection(Confirmed) Active PVD (peripheral vascular disease)(Confirmed) Active 1sequelae, left sided weakness Vital Signs Most recent to oldest [Reference Range]: 1 2 3 Oxygen Saturation [94-100 %] 97 % (03/22/22 9:28 PM) 100 % (03/22/22 6:26 PM) 97 % (03/22/22 2:53 PM) Pulse Rate [55-90 bpm] 76 bpm (03/22/22 9:28 PM) 75 bpm (03/22/22 6:26 PM) 85 bpm (03/22/22 2:53 PM) Blood Pressure [90-138/55-84 mm Hg] 113/74mm Hg (03/22/22 9:28 PM) 111/73mm Hg (03/22/22 6:26 PM) 114/73mm Hg (03/22/22 2:53 PM) Respiratory Rate [16-30 br/min] 18 br/min (03/22/22 9:28 PM) 18 br/min (03/22/22 7:52 PM) 18 br/min (03/22/22 6:26 PM) Temperature [96.8-100.4 DegF] 98.2 DegF (03/22/22 9:28 PM) 98.1 DegF (03/22/22 2:53 PM) Mode of Delivery (Oxygen) Room air (03/22/22 9:28 PM) Room air (03/22/22 6:26 PM) Room air (03/22/22 2:53 PM) Blood pressure sites Arm, right (03/22/22 9:28 PM) Arm, right (03/22/22 6:26 PM) Temperature Route Oral (03/22/22 9:28 PM) Oral (03/22/22 2:53 PM) Social History Social History Type Response Smoking Status Never (less than 100 in lifetime) entered on: 10/25/21 Sex
--- OUTSIDE RECORDS SUMMARY | 2023-02-21 14:49 | XMS_ITS | Continuity of Care Document ---
Author Name Unknown Organization [facility] Address [address] [place] [address]- Care Team Providers Care Mother Repairer Name Role Phone Thomas Bright Primary Care Physician [place] [facility] [place] Date(s): 03/31/22 - 03/31/[address] [address]- Encounter Diagnosis Abdominal pain(Final) - 03/31/22 Discharge Disposition: A-D/C AMA Attending Physician: Chicho Cortez MD Admitting Physician: [...] 1makes pt itchy 2Hx of Guillain - [place] Immunizations Given and Recorded Vaccine Date Status Refusal Reason pneumococcal 23-valent vaccine 02/03/17 Given Not Given Vaccine Date Status Refusal Reason pneumococcal 23-valent vaccine 01/25/17 Not Given Patient Refuses Medications atorvastatin 80 mg oral tablet 1 tablet = 80 mg, By Mouth, Daily, # 30 tablet, 0 Refills, Maintenance, Tablet, Route to Pharmacy Electronically, [id number], [facility] Start Date: 04/02/18 Stop Date: 05/02/18 Status: Ordered dicyclomine 20 mg oral tablet 1 tablet = 20 mg, By Mouth, 4 times a day, # 40 tablet, 0 Refills, Maintenance, 09/30/21 21:11:00 EST, Tablet, Partial fill upon patient request if the prescription is for a schedule II opioid drug. 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) 1 Active Hematoma of leg(Confirmed) Active HIV disease(Confirmed) 2002 Active HLD (hyperlipidemia)(Confirmed) Active HTN (hypertension)(Confirmed) Active Hypothyroidism(Confirmed) Active Skin infection(Confirmed) Active PVD (peripheral vascular disease)(Confirmed) Active 1sequelae, left sided weakness Results Radiology Reports * Exam Date Time Procedure Performing Provider Status 03/31/22 2:58 PM Chest 2 Views Frontal and Lat Traci Brandon; Auth (Verified) Notes: (Chest 2 Views Frontal and Lat) Reason For Exam: Chest Pain;Other: RESULT: Chest 2 Views Frontal and Lat Chest 2 Views Frontal and Lat Hx of Present Illness: patient was sitting at side of bed, felt lightheaded, fell back into bed. N v when woke up; Reason: Other:; Chest Pain; Clinical Question(s): CHF COMPARISON: 03/02/2022 FINDINGS: LINES AND TUBES: None. LUNGS AND PLEURA: Clear lungs. Normal pulmonary vascularity. No pleural effusion. No pneumothorax. HEART, MEDIASTINUM AND [place]: Heart is normal in size. Normal upper mediastinal and hilar contour. BONES AND SOFT TISSUES: No acute abnormality. A graft is present in the aorta. IMPRESSION: No acute abnormality. WSN: [id number] Ordering Physician: Tawanna Landers Dictated By: Chauncey Hernandez MD Dictated Date/Time: 03/31/22 3:07 pm Reviewed By: Chauncey Hernandez MD Signed By: Chauncey Hernandez MD Signed Date/Time: 03/31/22 3:07 pm Transcribed By: LOGAN Transcribed Date/Time: 03/31/22 3:04 pm Vital Signs Most recent to oldest [Reference Range]: 1 2 3 Oxygen Saturation [94-100 %] 100 % (03/31/22 6:33 PM) 100 % (03/31/22 4:43 PM) 96 % (03/31/22 2:01 PM) Pulse Rate [55-90 bpm] 80 bpm (03/31/22 6:33 PM) 85 bpm (03/31/22 4:43 PM) 74 bpm (03/31/22 2:01 PM) Blood Pressure [90-138/55-84 mm Hg] 118/78mm Hg (03/31/22 6:33 PM) 112/77mm Hg (03/31/22 4:43 PM) 111/80mm Hg (03/31/22 2:46 PM) Respiratory Rate [16-30 br/min] 18 br/min (03/31/22 6:33 PM) 18 br/min (03/31/22 6:24 PM) 18 br/min (03/31/22 6:00 PM) Temperature [96.8-100.4 DegF] 98.4 DegF (03/31/22 2:01 PM) Mode of Delivery (Oxygen) Room air (03/31/22 6:33 PM) Room air (03/31/22 4:43 PM) Room air (03/31/22 2:01 PM) Blood pressure sites Arm, left (03/31/22 6:33 PM) Arm, left (03/31/22 4:43 PM) Arm, left (03/31/22 2:46 PM) Temperature Route Oral (03/31/22 2:01 PM) Social History Social History Type Response Smoking Status Never (less than 100 in lifetime) entered on: 10/25/21 Sex
--- OUTSIDE RECORDS SUMMARY | 2023-02-21 14:49 | XMS_ITS | Continuity of Care Document ---
Author Name Unknown Organization [facility] Address [address], [address], [address] [place] [address]- Care Team Providers Care Special Needs Caregiver Name Role Phone Thomas Bright Primary Care Physician Encounter [facility] [place] Date(s): 12/21/20 - 01/20/21 [facility] [address], [address], [address] [place] [address] Attending Physician: Román Adams Admitting Physician: AdmtrRomán Referring Physician: Admtr ArAshly Allergies, Adverse Reactions, Alerts Substance Reaction Severity Status Lamictal Hives, itch Active Tegretol Hallucinations, aggression A ctive traMADol Active oxyCODONE Persistent Mild Active Tylenol itching Active Lobster Persistent Severe Active Percocet 7.5/325 1 C/O: itching Active influenza virus vaccine, inactivated 2 Active 1makes pt itchy 2Hx of Guillain - [place] Immunizations Given and Recorded Vaccine Date Status Refusal Reason pneumococcal 23-valent vaccine 02/03/17 Given Not Given Vaccine Date Status Refusal Reason pneumococcal 23-valent vaccine 01/25/17 Not Given Patient Refuses Medications aspirin 81 mg oral delayed release tablet See Instructions, [facility], # 30 tablet, 1 Refills, Maintenance, [id number], 175, cm, 02/26/20 14:11:00 EDT, Height, 87.5, kg, 02/26/20 14:11:00 EDT, Dry Weight Start Date: 04/12/20 Status: Ordered atorvastatin 80 mg oral tablet 1 tablet = 80 mg, By Mouth, Daily, # 30 tablet, 0 Refills, Maintenance, Tablet, Route to Pharmacy Electronically, [id number], [facility] Start Date: 04/02/18 [...] 0 Refills, Maintenance, 10/22/20 8:48:00 EST, Gel, [facility]/pharmacy #[id number], Partial fill upon patient request [...] 0 Refills, Maintenance, 10/29/20 9:13:00 EST, Tablet, [facility]/pharmacy #[id number], Partial fill upon patient request if the prescription is for a schedule II opioid drug., 175, cm, 10/28/20 10:07:00 EST, Height, 8... 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
--- OUTSIDE RECORDS SUMMARY | 2023-02-21 14:49 | XMS_ITS | Continuity of Care Document ---
Author Name Unknown Organization [facility] ter Address [address] [place] [id number]- Care Team Providers Care Plumbing Assembler Installer Name Role Phone Thomas Bright Primary Care Physician Encounter [facility] Date(s): 02/24/20 - 02/24/[address] [address]- [facility] Encounter Diagnosis Acute chest pain(Final) - 02/24/20 Left leg claudication(Final) - 02/24/20 Right leg claudication(Final) - 02/24/20 Discharge Disposition: A-D/C Home Attending Physician: Jeanette [...] 1makes pt itchy 2Hx of Guillain - [place] Immunizations Given and Recorded Vaccine Date Status Refusal Reason pneumococcal 23-valent vaccine 02/03/17 Given Not Given Vaccine Date Status Refusal Reason pneumococcal 23-valent vaccine 01/25/17 Not Given Patient Refuses Medications atorvastatin 80 mg oral tablet 1 tablet = 80 mg, By Mouth, Daily, # 30 tablet, 0 Refills, Maintenance, Tablet, Route to Pharmacy Electronically, [id number], [facility] Start Date: 04/02/18 Stop Date: 05/02/18 Status: Ordered famotidine 20 mg oral tablet 20 mg, 1, tablet, By Mouth, Daily, # 30 tablet, Refills 0, Tot. Refills 0, Maintenance, 01/12/20 22:53:00 EDT, Route to Pharmacy Electronically, [facility]/pharmacy #[id number], 175, cm, 01/12/20 17:28:00 EDT, [...] 0 Refills,Maintenance, 10/14/19 23:05:00 EST, DIS Tablet, [facility]/pharmacy #[id number], 175, cm, 09/12/19 10:20:00 EST,Height, [...] ant GERD (gastroesophageal reflu x disease)(Confirmed) Active Guillain-Collins syndrome(Confirmed) 1 Active Hematoma of leg(Confirmed) Active HIV disease(Confirmed) 2003 Active Hypercholesterolemia(Confirmed) 2006 Active HLD (hyperlipidemia)(Confirmed) Active HTN (hypertension)(Confirmed) Active Hypothyroidism(Confirmed) Active Skin infection(Confirmed) Active PVD (peripheral vascular disease)(Confirmed) Active 1sequelae, left sided weakness Results Radiology Reports * Exam Date Time Procedure Performing Provider Status 02/24/20 12:20 PM Chest 2 Views Frontal and Lat Courtney Kern; Emeli (Verified) Notes: (Chest 2 Views Frontal and Lat) Reason For Exam: Chest Pain;Other: RESULT: Chest 2 Views Frontal and Lat Chest 2 Views Frontal and Lat Reason: Other:; Chest Pain; Clinical Question(s): Other: COMPARISON: 12/22/2019 FINDINGS: LINES AND TUBES: Abdominal aortic stent and IVC filter are partially imaged. LUNGS AND PLEURA: Clear lungs. Normal pulmonary vascularity. No pleural effusion. No pneumothorax. HEART, MEDIASTINUM AND [place]: Unchanged cardiomediastinal silhouette. BONES AND SOFT TISSUES: No acute abnormality. IMPRESSION: No acute abnormality. WSN: [id number] Ordering Physician: Ximena Jose Dictated By: Tao Gifford MD Dictated Date/Time: 02/24/20 12:22 p Reviewed By: Tao Gifford MD Signed By: Tao Gifford MD Signed Date/Time: 02/24/20 12:22 pm Transcribed By: LOGAN Transcribed Date/Time: 02/24/20 12:21 pm Vital Signs Most recent to oldest [Reference Range]: 1 2 3 Oxygen Saturation [94-100 %] 98 % (02/24/20 11:08 PM) 99 % (02/24/20 9:22 PM) 99 % (02/24/20 6:31 PM) Pulse Rate [55-90 bpm] 65 bpm (02/24/20 11:08 PM) 72 bpm (02/24/20 9:22 PM) 78 bpm (02/24/20 6:31 PM) Blood Pressure [90-138/55-84 mm Hg] 115/80mm Hg (02/24/20 11:08 PM) 114/76mm Hg (02/24/20 9:22 PM) 107/67mm Hg (02/24/20 6:31 PM) Respiratory Rate [16-30 br/min] 17 br/min (02/24/20 11:08 PM) 18 br/min (02/24/20 9:22 PM) 18 br/min (02/24/20 8:06 PM) Temperature [96.8-100.4 DegF] 98.4 DegF (02/24/20 11:08 PM) 98.2 DegF (02/24/20 9:22 PM) 98.0 DegF (02/24/20 6:31 PM) Liters per Minute 0 L/min (02/24/20 11:08 PM) 0 L/min (02/24/20 9:22 PM) Mode of Delivery (Oxygen) Room air (02/24/20 11:08 PM) Room air (02/24/20 9:22 PM) Room air (02/24/20 6:31 PM) Blood pressure sites Arm, right (02/24/20 6:31 PM) Arm, left (02/24/20 4:59 PM) Arm, left (02/24/20 1:50 PM) Temperature Route Oral (02/24/20 11:08 PM) Oral (02/24/20 9:22 PM) Oral (02/24/20 6:31 PM) Social History Social History Type Response Smoking Status Former smoker; Tobac co user in household: No; Type: Cigarettes; Other: quit in july 2016; Tobacco use times per day: half pack per day; Started at age: 11; entered on: 05/29/18 Sex
--- OUTSIDE RECORDS SUMMARY | 2023-02-21 14:49 | XMS_ITS | Continuity of Care Document ---
Author Name Unknown Organization [facility] ter Address [address] [place] [id number]- Care Team Providers Care Boom Master Name Role Phone Thomas Bright Primary Care Physician [phone] Encounter [facility] Date(s): 08/25/19 - 08/25/[address] [address]- [facility] Encounter Diagnosis Leg pain(Final) - 08/25/19 Discharge Disposition: A-D/C Home Attending Physician: Xavi Fabian DO Admitting Physician: Xavi Fabian DO Referring Physician: Not on Staff, Referring MD Allergies, Adverse Reactions, Alerts Substance Reaction Severity Status Lamictal Hives, itch Active Tegretol Hallucinations, aggression A ctive Tylenol itching Active Lobster Persistent Severe Active Percocet 7.5/325 1 C/O: itching Active influenza virus vaccine, inactivated 2 Active traMADol Active oxyCODONE Persistent Mild Active 1makes pt itchy 2Hx of Guillain - [place] Immunizations Given and Recorded Vaccine Date Status Refusal Reason pneumococcal 23-valent vaccine 02/03/17 Given Not Given Vaccine Date Status Refusal Reason pneumococcal 23-valent vaccine 01/25/17 Not Given Patient Refuses Medications atorvastatin 80 mg oral tablet 1 tablet = 80 mg, By Mouth, Daily, # 30 tablet, 0 Refills, Maintenance, Tablet, Route to Pharmacy Electronically, [id number], [facility] Start Date: 04/02/18 Stop Date: 05/02/18 Status: Ordered Carafate 1 gm oral tablet 1 Gm, 1, tablet, By Mouth, 4 times a day, # 120 tablet, Refills 0, Tot. 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 Hematoma of leg(Confirmed) Active HIV disease(Confirmed) 2002 Active Hypercholesterolemia(Confirmed) 2006 Active HLD (hyperlipidemia)(Confirmed) Active HTN (hypertension)(Confirmed) Active Hypothyroidism(Confirmed) Active Skin infection(Confirmed) Active PVD (peripheral vascular disease)(Confirmed) Active 1sequelae, left sided weakness Results Radiology Reports * Exam Date Time Procedure Performing Provider Status 08/25/19 4:57 PM Chest 2 Views Frontal and Lat Lisa Nur (Verified) Notes: (Chest 2 Views Frontal and Lat) Reason For Exam: Shortness of Breath RESULT: Chest 2 Views Frontal and Lat Chest 2 Views Frontal and Lat Refer to EMR; Reason: Shortness of Breath; Clinical Question(s): CHF; Hx of Present Illness: pt reports pain at upper L calf x 2 days with known dvt in BLE. KYLE, dizziness, numbness at L side of face beginning last PM. SOB beginning this AM with mild chest discomfort COMPARISON: 07/08/2019. FINDINGS: LINES AND TUBES: None. LUNGS AND PLEURA: Clear lungs. Normal pulmonary vascularity. No pleural effusion. No pneumothorax. HEART, MEDIASTINUM AND [place]: Heart is normal in size. Normal mediastinal and hilar contour. BONES AND SOFT TISSUES: No acute abnormality. Old left rib fractures noted. Cholecystectomy clips noted. Abdominal Aortic stent graft and IVC filter partially imaged. IMPRESSION: No acute abnormality. WSN: [id number] Dictated By: David Heaton MD Dictated Date/Time: 08/25/19 5:02 pm Reviewed By: David Heaton MD Signed By: David Heaton MD Signed Date/Time: 08/25/19 5:02 pm Transcribed By: LOGAN Transcribed Date/Time: 08/25/19 5:00 pm Vital Signs Most recent to oldest [Reference Range]: 1 2 3 Oxygen Saturation [94-100 %] 99 % (08/25/19 7:31 PM) 100 % (08/25/19 4:00 PM) 100 % (08/25/19 2:45 PM) Pulse Rate [55-90 bpm] 76 bpm (08/25/19 7:31 PM) 77 bpm (08/25/19 4:00 PM) 81 bpm (08/25/19 2:45 PM) Blood Pressure [90-138/55-84 mm Hg] 111/66mm Hg (08/25/19 7:31 PM) 114/84mm Hg (08/25/19 4:00 PM) 112/74mm Hg (08/25/19 2:45 PM) Respiratory Rate [16-30 br/min] 18 br/min (08/25/19 7:31 PM) 16 br/min (08/25/19 4:00 PM) 20 br/min (08/25/19 2:45 PM) Temperature [96.8-100.4 DegF] 98.1 DegF (08/25/19 1:17 PM) Mode of Delivery (Oxygen) Room air (08/25/19 7:31 PM) Room air (08/25/19 4:00 PM) Room air (08/25/19 2:45 PM) Blood pressure sites Arm, left (08/25/19 7:31 PM) Arm, right (08/25/19 4:00 PM) Arm, right (08/25/19 2:45 PM) Temperature Route Oral (08/25/19 1:17 PM) Social History Social History Type Response Smoking Status Former smoker; Tobac co user in household: No; Type: Cigarettes; Other: quit in july 2016; Tobacco use times per day: half pack per day; Started at age: 11; entered on: 05/29/18 Sex
--- OUTSIDE RECORDS SUMMARY | 2023-02-21 14:49 | XMS_ITS | Continuity of Care Document ---
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 Name Role Phone Thomas Bright Primary Care Physician [phone] Encounter [facility] Date(s): 11/15/22 - 11/15/[address] [address]- Encounter Diagnosis Chronic pain(Final) - 11/15/22 Discharge Disposition: A-D/C Home Attending Physician: Chicho Cortez MD Admitting Physician: Chicho Cortez MD Referring Physician: Not on Staff, Referring MD Allergies, Adverse Reactions, Alerts Substance Reaction Severity Status Lamictal Hives, itch Active Tegretol Hallucinations, aggression A ctive Tylenol itching Active influenza virus vaccine, inactivated 1 Active oxyCODONE Persistent Mild Active traMADol Active Lobster Persistent Severe Active Percocet 7.5/325 2 C/O: itching Active 1Hx of Guillain - [place] 2makes pt itchy Immunizations Given and Recorded Vaccine Date Status Refusal Reason pneumococcal 23-valent vaccine 02/03/17 Given Not Given Vaccine Date Status Refusal Reason pneumococcal 23-valent vaccine 01/25/17 Not Given Patient Refuses Medications atorvastatin 80 mg oral tablet 1 tablet = 80 mg, By Mouth, Daily at bedtime, # 30 tablet, 0 Refills, Maintenance, Tablet, Route toPharmacy Electronically, [id number], [facility] Start Date: 04/02/18 Stop Date: 05/02/18 [...] Inj 4 mg, Injection, IV Push Slowly, 11/15/22 15:00:00 EDT Start Date: 11/15/22 Stop Date: 11/15/22 Status: Completed ondansetron 4 mg oral tablet, [...] Active GERD (gastroesophageal reflux disease) Confirmed Active 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 Hematoma of leg Confirmed Active HIV disease Confirmed 2002 Active HLD (hyperlipidemia) Confirmed Active HTN (hypertension) Confirmed Active Hypothyroidism Confirmed Active Skin infection Confirmed Active PVD (peripheral vascular disease) Confirmed Active 1sequelae, left sided weakness Results Radiology Reports * Exam Date Time Procedure Performing Provider Status 11/15/22 4:[address] Angio Abdomen Aor ta Bilat IlioFem Lanny Marie; Auth (Verified) Notes: (CT Angio Abdomen Aorta Bilat IlioFem) Reason For Exam: Claudication RESULT: CT Angio Abdomen Aorta Bilat IlioFem PROCEDURE: CT Angio Abdomen Aorta Bilat IlioFem INDICATION: Hx of Present Illness: Patient with known DVTs taking Jeringa injections daily presentswith increasing bilat leg pain and numbness, dizziness and chest pain.; Reason: Claudication; Clinical Question(s): Other:; Order Comment: RELEVANT CLINICAL INFORMATION/CLINICAL QUESTION: Other: TECHNIQUE: CT angiography of the abdomen and lower extremities was performed using contiguous helical images from the diaphragm to the feet. 100 cc of Omnipaque 300 was administered intravenously. One mm axial images were reconstructed. Sagittal and coronal reformatted images were rendered. High resolution multiplanar, volume rendered and MIP images were created and used to evaluate the abdominal aorta and lower extremity arteries in multiple projections on an independent workstation, with permanent images saved to PACS. Automatic tube current modulation was used to optimize exposure parameters. RADIATION DOSE PARAMETERS: CTDIvol Body: 17.70 mGy, DLP Body: 1443 mGy*cm. COMPARISON: 11/02/2022. FINDINGS: Abdominal aorta: The patient is status post endograft repair of the infrarenal abdominal aorta. Thenative aorta is nearly completely collapsed around the endograft. No evidence of an endoleak. Additional stents have been placed inside the iliac limbs. The stent is widely patent, including both iliac limbs. Celiac axis: Patent. Normal caliber. Conventional hepatic arterial branching pattern. Superior mesenteric artery: Patent. Normal caliber. Inferior mesenteric artery: Occluded at its origin on the aorta by the endograft, but reconstitutesvia collaterals from the SMA. Right renal artery: Patent. Normal caliber. Left renal artery: Patent. Normal caliber. Right side: Common iliac artery: Endovascular stent. Patent. External iliac artery: Patent. Normal caliber. Internal iliac artery: Patent. Few calcifications. Normal caliber. Common femoral artery: Patent. Normal caliber. Superficial femoral artery: Patent. Normal caliber. Status post distal SFA to posterior tibial artery bypass, which is widely patent. Deep femoral artery: Patent. Normal caliber. Popliteal artery: Essentially completely occluded. 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 The very distal aspect of the artery is patent at the confluence with the tibioperoneal trunk and posterior tibial artery. Anterior tibial artery: Patent to the distal third of the lower leg. Tibioperoneal trunk: Patent. Posterior tibial artery: High origin of the posterior tibial artery is noted at the level of the joint line, normal variation. The artery is patent to the foot, including the segment proximal to the bypass, which is most likely perfusing the anterior tibial and peroneal arteries in a retrograde fashion. Enhancement noted in the plantar arteries. Peroneal artery: Patent through the mid lower leg. Left side: Common iliac artery: Endovascular stent. Patent. External iliac artery: Patent. Normal caliber. Internal iliac artery: Patent. Minimal calcification. Normal caliber. Common femoral artery: Patent. Minimal calcification. No significant stenosis. Superficial femoral artery: Patent. Normal caliber. Deep femoral artery: Patent. Normal caliber. Popliteal artery: Patent. Normal caliber. No evidence of an aneurysm. Anterior tibial artery: Patent to the foot. Enhancement noted in the dorsalis pedis artery. Tibioperoneal trunk: The patient demonstrates a true trifurcation with no tibioperoneal trunk, normal variation. Posterior tibial artery: Patent to the foot. Enhancement noted in the plantar arteries. Peroneal artery: Patent to the ankle. OTHER FINDINGS: Tonger findings, Lines, and Tubes: None. Liver: The visualized portion is diffusely decreased in density, likely representing hepatic steatosis. No focal abnormality. Smooth hepatic contour. Gallbladder: Status post cholecystectomy. Bile ducts: No biliary ductal dilation. Spleen: The visualized portion is unremarkable. Pancreas: Mild fatty replacement. No focal abnormality or dilatation of the main pancreatic duct. Adrenal glands: Normal. Kidneys and ureters: No hydronephrosis, stones, or suspicious masses. Bladder: Normal. Reproductive organs: Unremarkable. Stomach, small bowel, and large bowel: No focal inflammation or wall thickening. No evidence of bowel obstruction. Colorectal anastomosis intact. Hypervascular blush in the lateral wall of the anus (image 121, series 401). Appendix: No evidence of acute appendicitis. Surgical clips adjacent to the cecum, consistent with prior appendectomy. Peritoneum, omentum, and mesentery: No ascites or pneumoperitoneum. No omental or mesenteric lesions. Lymph nodes: No enlarged lymph nodes. Abdominal and pelvic wall: Likely scattered sites of subcutaneous medicine injections. No acute abnormality. Bones: No acute abnormality. Lower Extremities: Scattered surgical clips in both lower extremities. No significant subcutaneous edema. IMPRESSION: 1. 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 The endograft, including both common iliac limbs, is patent. No evidence of an endoleak. 2. No significant mesenteric or renal artery stenosis. 3. Right lower extremity: * No evidence of significant inflow stenosis. * Status post SFA to PT bypass, which is widely patent. * Secondary to the bypass, the posterior tibial artery is the main perfusing artery of the lower leg. 4. Left lower extremity: * No evidence of significant inflow stenosis. * No significant femoropopliteal disease. * Intact three-vessel runoff. 5. No acute abnormality identified in the abdomen or pelvis. 6. Hypervascular blush in the lateral wall of the anus may represent an AV malformation versus hemorrhoids. Direct visualization recommended. A critical result message (Yellow) has been communicated via the [employer] system on 11/15/2022 4:49 PM, Message ID [id number]. WSN: [id number] Ordering Physician: Thomas Banegas Dictated By: Chauncey Platt MD Dictated Date/Time: 11/15/22 4:50 pm Reviewed By: Chauncey Platt MD Signed By: Chauncey Platt MD Signed Date/Time: 11/15/22 4:50 pm Transcribed By: LOGAN Transcribed Date/Time: 11/15/22 4:21 pm * Exam Date Time Procedure Performing Provider Status 11/15/22 4:15 PM US Doppler Ext Lower Venous Left Becka López; Emeli (Verified) Notes: (US Doppler Ext Lower Venous Left) Reason For Exam: Pain in limb;Other: RESULT: US Doppler Ext Lower Venous Left US Doppler Ext Lower Venous Left History of Present Illness: Patient with known DVTs taking Jeringa injections daily presents with increasing bilat leg pain and numbness, dizziness and chest pain.; Reason: Pain in limb. Clinical Question(s): Thrombus. COMPARISON: Multiple prior examinations, most recently 11/02/2022, 10/16/2022. IMAGING TECHNIQUE: Ultrasound of the veins from the groin through the calf was performed using grayscale, color, and spectral Doppler ultrasound assessing for complete compressibility and normal flowcharacteristics. FINDINGS: Common femoral vein: Patent. No thrombosis. Femoral vein: Patent. No thrombosis. Popliteal vein: Small amount of altered echogenic material, likely representing previously known chronic postthrombotic scarring in the left leg. Gastrocnemius veins: The visualized portions are patent without evidence of thrombosis. Peroneal veins: The visualized portions are patent without evidence of thrombosis. Posterior tibial veins: The visualized portions are patent without evidence of thrombosis. Contralateral common femoral vein: Patent. No thrombosis. OTHER FINDINGS: None. IMPRESSION: No evidence of deep venous thrombosis. Unchanged, chronic appearing posttraumatic scarring in the left leg dating back to 08/02/2022. I have personally reviewed the images and I agree with this report. WSN: [id number] Ordering Physician: Thomas Banegas Dictated By: Raza Armenta MD Dictated Date/Time: 11/15/22 4:29 pm Reviewed By: Martin Corey MD Signed By: Martin Corey MD Signed Date/Time: 11/15/22 4:34 pm Transcribed By: LOGAN Transcribed Date/Time: 11/15/22 4:22 pm * Exam Date Time Procedure Performing Provider Status 11/15/22 3:[address] Head/Brain W/O Contrast Homa Marie ly; Auth (Verified) Notes: (CT Head/Brain W/O Contrast) Reason For Exam: AIDS RESULT: CT Head/Brain W/O Contrast CT Head/Brain W/O Contrast INDICATION: Hx of Present Illness: Patient with known DVTs taking Jeringa injections daily presentswith increasing bilat leg pain and numbness, dizziness and chest pain.; Reason: AIDS; Clinical Question(s): Subarachnoid Hemorrhage; Order Comment: TECHNIQUE: Noncontrast head CT using axial technique and reconstructed in axial and coronal planes.Iterative reconstruction techniques are used to optimize dose and image quality. CTDIvol Head: 48.10 mGy, DLP Head: 773 mGy*cm. COMPARISON: CT head from 09/26/2022 FINDINGS: Tonger view findings, lines and tubes: None. BRAIN AND EXTRA-AXIAL SPACES: No parenchymal hemorrhage, midline shift, or mass effect. Suazo-white matter differentiation is wellpreserved. No acute infarct. Negative insular ribbon and hyperdense vessel signs. Mild prominence of the ventricles and sulci consistent with parenchymal volume loss. Mild low-density white matter changes. No subarachnoid hemorrhage. No subdural or epidural collection. CALVARIUM, SKULL BASE, AND SOFT TISSUES: No fractures or suspicious bony lesions. The paranasal sinuses and mastoid air cells are clear. Visualized orbits and globes are intact. The extracranial soft tissues are unremarkable. IMPRESSION: No acute intracranial pathology. WSN: [id number] Ordering Physician: Thomas Banegas Dictated By: Fletcher Lenz MD Dictated Date/Time: 11/15/22 4:02 pm Reviewed By: Fletcher Lenz MD Signed By: Fletcher Lenz MD Signed Date/Time: 11/15/22 4:02 pm Transcribed By: LOGAN Transcribed Date/Time: 11/15/22 3:59 pm * Exam Date Time Procedure Performing Provider Status 11/15/22 3:29 PM Chest 2 Views Frontal and Lat Miguel Lieberman; Auth (Verified) Notes: (Chest 2 Views Frontal and Lat) Reason For Exam: Pleuritic Pain RESULT: Chest 2 Views Frontal and Lat Chest 2 Views Frontal and Lat Hx of Present Illness: Patient with known DVTs taking Jeringa injections daily presents with increasing bilat leg pain and numbness, dizziness and chest pain.; Reason: Pleuritic Pain; Clinical Question(s): Pneumonia COMPARISON: 11/02/2022 FINDINGS: LINES AND TUBES: None. LUNGS AND PLEURA: Clear lungs. Normal pulmonary vascularity. No pleural effusion. No pneumothorax. HEART, MEDIASTINUM AND [place]: Heart is normal in size. Normal mediastinal and hilar contour. BONES AND SOFT TISSUES: No acute abnormality. IMPRESSION: No acute abnormality. WSN: [id number] Ordering Physician: Thomas Banegas Dictated By: Larry Barragan MD Dictated Date/Time: 11/15/22 3:36 pm Reviewed By: Larry Barragan MD Signed By: Larry Barragan MD Signed Date/Time: 11/15/22 3:36 pm Transcribed By: LOGAN Transcribed Date/Time: 11/15/22 3:34 pm Vital Signs Most recent to oldest [Reference Range]: 1 2 3 Height 175 cm (11/15/22 1:12 PM) 175 cm (11/15/22 12:45 PM) 175 cm (11/15/22 12:26 PM) Weight 88.5 kg (11/15/22 1:12 PM) 88.5 kg (11/15/22 12:45 PM) 88.5 kg (11/15/22 12:26 PM) Oxygen Saturation [94-100 %] 98 % (11/15/22 6:00 PM) 100 % (11/15/22 4:00 PM) 98 % (11/15/22 1:12 PM) Pulse Rate [55-90 bpm] 90 bpm (11/15/22 6:00 PM) 85 bpm (11/15/22 4:00 PM) 90 bpm (11/15/22 1:12 PM) Body Mass Index [18.5-24.99 kg/m2] 28.9 kg/m2 *H* (11/15/22 1:12 PM) 28.9 kg/m2 *H* (11/15/22 12:26 PM) Blood Pressure [90-138/55-84 mm Hg] 114/84mm Hg (11/15/22 6:00 PM) 124/80mm Hg (11/15/22 4:00 PM) 118/91mm Hg (11/15/22 1:12 PM) Respiratory Rate [16-30 br/min] 18 br/min (11/15/22 6:00 PM) 18 br/min (11/15/22 5:22 PM) 15 br/min *L* (11/15/22 4:52 PM) Temperature [96.8-100.4 DegF] 98.5 DegF (11/15/22 6:00 PM) 98.8 DegF (11/15/22 1:12 PM) 98.2 DegF (11/15/22 12:26 PM) Mode of Delivery (Oxygen) Room air (11/15/22 6:00 PM) Room air (11/15/22 4:00 PM) Room air (11/15/22 1:12 PM) Blood pressure sites Arm, left (11/15/22 6:00 PM) Arm, left (11/15/22 4:00 PM) Arm, right (11/15/22 1:12 PM) Temperature Route Oral (11/15/22 6:00 PM) Oral (11/15/22 1:12 PM) Oral (11/15/22 12:26 PM) Dry Weight 88.5 kg (11/15/22 1:12 PM) 88.5 kg (11/15/22 12:45 PM) 88.5 kg (11/15/22 12:26 PM) Weight Obtained Via Patient/family state d (11/15/22 12:26 PM) Dry Weight Obtained Via Patient/family s tated (11/15/22 12:26 PM) Social History Social History Type Response Smoking Status Never (less than 100 in lifetime) entered on: 10/25/21 Sex Note * Blayne Arnold MD: PERFORM Event Display: Patient Education Leaflets Authored Date: [id number] Chronic Pain ?? [id number] Dolor cr??imer El dolor cumple shawn funci??n importante. Le avisa que algo angélica mal y que debe prestarle atenci??n.Cuando el cuerpo joseph, el dolor normalmente se va. Cuando el dolor dura m??s de irene meses, se lo denomina dolor cr??imer. Es posible que persista incluso despu??s de que el cuerpo se haya curado.??El dolor cr??imer puede causar problemas del estado de ??mery e interferir con clay relaciones y de la garza chapincito diaria. Shawn serie de afecciones pueden causar dolor cr??imer. Algunos de los m??s comunes son los siguientes: ??? Cirug??a previa ??? Shawn vieja lesi??n ??? Infecci??n ??? Enfermedades pau la diabetes ??? Da??o en los nervios ??? Lesi??n en la espalda ??? Artritis ??? Migra??a u otros danny de valarie ??? Fibromialgia ??? C??ncer La depresi??n y el estr??s pueden empeorar los s??ntomas del dolor cr??imer.??En algunos casos, no se puede determinar la causa del dolor.?? Tratamiento El tratamiento puede aliviar el dolor en gran medida.??En muchos casos, el dolor puede volverse menos juana, presentarse con menos frecuencia e interferir menos con de la garza chapincito diaria.??El dolor cr??imer se trata con shawn combinaci??n de medicamentos, terapias y cambios en el estilo de chapincito. Usted trabajar?? estrechamente con de la garza proveedor de atenci??n m??dica para crear un plan de tratamiento que funcione lo mejor posible en de la garza shubham. ??? Pida a de la garza proveedor de atenci??n m??dica que lo remita a un centro especializado en el manejo del dolor. Estos centros pueden ofrecer las estrategias de manejo del dolor m??s avanzadas y comprobadas, junto con apoyo emocional y servicios integrales. ??? Se pueden recetar varios tipos distintos de medicamentos para el dolor cr??imer. Trabaje con de la garza proveedor de atenci??n m??dica para desarrollar un plan de medicamentos que ayude a manejar de la garza dolor. ??? La fisioterapia puede ayudar a reducir ciertos tipos de dolor cr??imer. ??? La terapia ocupacional le ense??a a hacer tareas de la rutina diaria de shawn manera que le permita minimizar de la garza malestar. ??? La consejer??a lo ayuda a lidiar mejor con el estr??s y el dolor. ??? Hay otras terapias tales pau la meditaci??n, el yoga, la biorretroalimentaci??n, el masaje y la acupuntura, que tambi??n pueden ayudarlo a manejar mejor el dolor cr??imer. ??? Cambiar ciertos h??bitos de chapincito puede ayudar a aliviar el dolor cr??imer: o Alim??ntese de forma saludable o Siga shawn rutina de ejercicios o Duerma lo suficiente?? o Deje de fumar y limite el consumo de alcohol o Baje el exceso de peso ?? Atenci??n de seguimiento Realice el seguimiento con de la garza proveedor de atenci??n m??dica seg??n lo que le haya indicado. Informe a de la garza proveedor de atenci??n m??dica si el plan de tratamiento que est?? siguiendo ahora est?? dando los resultados esperados o si es necesario cambiarlo. ?? M??s informaci??n Para obtener m??s informaci??n, comun??quese con las siguientes organizaciones: ??? Asociaci??n [place] de Migra??a y [place] ([place] [employer] and [employer]) en [facility] o al [phone] ??? Asociaci??n [place] de Dolor Cr??imer ([place] [employer]) en [employer] o al [phone] ?? Last Reviewed Date: 2022 ?? [id number] [employer]. Todos los derechos reservados. Esta informaci??n no pretende sustituir la atenci??n m??dica profesional. S??lo de la garza m??dico puede diagnosticar y tratar un problema de rock. ?? * [employer]SP[employer] , CIS S: TRANSCRILarry Jimenez MD: VERIFY Event Display: Result: Authored Date: [id number] Chest 2 Views Frontal and Lat Hx of Present Illness: Patient with known DVTs taking Jeringa injections daily presents with increasing bilat leg pain and numbness, dizziness and chest pain.; Reason: Pleuritic Pain; Clinical Question(s): Pneumonia COMPARISON: 11/02/2022 FINDINGS: LINES AND TUBES: None. LUNGS AND PLEURA: Clear lungs. Normal pulmonary vascularity. No pleural effusion. No pneumothorax. HEART, MEDIASTINUM AND [place]: Heart is normal in size. Normal mediastinal and hilar contour. BONES AND SOFT TISSUES: No acute abnormality. IMPRESSION: No acute abnormality. WSN: [id number] Ordering Physician: Thomas Banegas Dictated By: Larry Barragan MD Dictated Date/Time: 11/15/22 3:36 pm Reviewed By: Larry Barragan MD Signed By: Larry Barragan MD Signed Date/Time: 11/15/22 3:36 pm Transcribed By: LOGAN Transcribed Date/Time: 11/15/22 3:34 pm * CANDACE Wheatley S: TRANSCMartin Landeros MD: VERIFY Raza Armenta MD: SIGN Event Display: Result: Authored Date: [id number] US Doppler Ext Lower Venous Left History of Present Illness: Patient with known DVTs taking Jeringa injections daily presents with increasing bilat leg pain and numbness, dizziness and chest pain.; Reason: Pain in limb. Clinical Question(s): Thrombus. COMPARISON: Multiple prior examinations, most recently 11/02/2022, 10/16/2022. IMAGING TECHNIQUE: Ultrasound of the veins from the groin through the calf was performed using grayscale, color, and spectral Doppler ultrasound assessing for complete compressibility and normal flowcharacteristics. FINDINGS: Common femoral vein: Patent. No thrombosis. Femoral vein: Patent. No thrombosis. Popliteal vein: Small amount of altered echogenic material, likely representing previously known chronic postthrombotic scarring in the left leg. Gastrocnemius veins: The visualized portions are patent without evidence of thrombosis. Peroneal veins: The visualized portions are patent without evidence of thrombosis. Posterior tibial veins: The visualized portions are patent without evidence of thrombosis. Contralateral common femoral vein: Patent. No thrombosis. OTHER FINDINGS: None. IMPRESSION: No evidence of deep venous thrombosis. Unchanged, chronic appearing posttraumatic scarring in the left leg dating back to 08/02/2022. I have personally reviewed the images and I agree with this report. WSN: [id number] Ordering Physician: Thomas Banegas Dictated By: Raza Armenta MD Dictated Date/Time: 11/15/22 4:29 pm Reviewed By: Martin Corey MD Signed By: Martin Corey MD Signed Date/Time: 11/15/22 4:34 pm Transcribed By: LOGAN Transcribed Date/Time: 11/15/22 4:22 pm * CANDACE Wheatley S: Chauncey Renteria MD: VERIFY Event Display: Result: Authored Date: [id number] PROCEDURE: CT Angio Abdomen Aorta Bilat IlioFem INDICATION: Hx of Present Illness: Patient with known DVTs taking Jeringa injections daily presentswith increasing bilat leg pain and numbness, dizziness and chest pain.; Reason: Claudication; Clinical Question(s): Other:; Order Comment: RELEVANT CLINICAL INFORMATION/CLINICAL QUESTION: Other: TECHNIQUE: CT angiography of the abdomen and lower extremities was performed using contiguous helical images from the diaphragm to the feet. 100 cc of Omnipaque 300 was administered intravenously. One mm axial images were reconstructed. Sagittal and coronal reformatted images were rendered. High resolution multiplanar, volume rendered and MIP images were created and used to evaluate the abdominal aorta and lower extremity arteries in multiple projections on an independent workstation, with permanent images saved to PACS. Automatic tube current modulation was used to optimize exposure parameters. RADIATION DOSE PARAMETERS: CTDIvol Body: 17.70 mGy, DLP Body: 1443 mGy*cm. COMPARISON: 11/02/2022. FINDINGS: Abdominal aorta: The patient is status post endograft repair of the infrarenal abdominal aorta. Thenative aorta is nearly completely collapsed around the endograft. No evidence of an endoleak. Additional stents have been placed inside the iliac limbs. The stent is widely patent, including both iliac limbs. Celiac axis: Patent. Normal caliber. Conventional hepatic arterial branching pattern. Superior mesenteric artery: Patent. Normal caliber. Inferior mesenteric artery: Occluded at its origin on the aorta by the endograft, but reconstitutesvia collaterals from the SMA. Right renal artery: Patent. Normal caliber. Left renal artery: Patent. Normal caliber. Right side: Common iliac artery: Endovascular stent. Patent. External iliac artery: Patent. Normal caliber. Internal iliac artery: Patent. Few calcifications. Normal caliber. Common femoral artery: Patent. Normal caliber. Superficial femoral artery: Patent. Normal caliber. Status post distal SFA to posterior tibial artery bypass, which is widely patent. Deep femoral artery: Patent. Normal caliber. Popliteal artery: Essentially completely occluded. 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 The very distal aspect of the artery is patent at the confluence with the tibioperoneal trunk and posterior tibial artery. Anterior tibial artery: Patent to the distal third of the lower leg. Tibioperoneal trunk: Patent. Posterior tibial artery: High origin of the posterior tibial artery is noted at the level of the joint line, normal variation. The artery is patent to the foot, including the segment proximal to the bypass, which is most likely perfusing the anterior tibial and peroneal arteries in a retrograde fashion. Enhancement noted in the plantar arteries. Peroneal artery: Patent through the mid lower leg. Left side: Common iliac artery: Endovascular stent. Patent. External iliac artery: Patent. Normal caliber. Internal iliac artery: Patent. Minimal calcification. Normal caliber. Common femoral artery: Patent. Minimal calcification. No significant stenosis. Superficial femoral artery: Patent. Normal caliber. Deep femoral artery: Patent. Normal caliber. Popliteal artery: Patent. Normal caliber. No evidence of an aneurysm. Anterior tibial artery: Patent to the foot. Enhancement noted in the dorsalis pedis artery. Tibioperoneal trunk: The patient demonstrates a true trifurcation with no tibioperoneal trunk, normal variation. Posterior tibial artery: Patent to the foot. Enhancement noted in the plantar arteries. Peroneal artery: Patent to the ankle. OTHER FINDINGS: Tonger findings, Lines, and Tubes: None. Liver: The visualized portion is diffusely decreased in density, likely representing hepatic steatosis. No focal abnormality. Smooth hepatic contour. Gallbladder: Status post cholecystectomy. Bile ducts: No biliary ductal dilation. Spleen: The visualized portion is unremarkable. Pancreas: Mild fatty replacement. No focal abnormality or dilatation of the main pancreatic duct. Adrenal glands: Normal. Kidneys and ureters: No hydronephrosis, stones, or suspicious masses. Bladder: Normal. Reproductive organs: Unremarkable. Stomach, small bowel, and large bowel: No focal inflammation or wall thickening. No evidence of bowel obstruction. Colorectal anastomosis intact. Hypervascular blush in the lateral wall of the anus (image 121, series 401). Appendix: No evidence of acute appendicitis. Surgical clips adjacent to the cecum, consistent with prior appendectomy. Peritoneum, omentum, and mesentery: No ascites or pneumoperitoneum. No omental or mesenteric lesions. Lymph nodes: No enlarged lymph nodes. Abdominal and pelvic wall: Likely scattered sites of subcutaneous medicine injections. No acute abnormality. Bones: No acute abnormality. Lower Extremities: Scattered surgical clips in both lower extremities. No significant subcutaneous edema. IMPRESSION: 1. 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 The endograft, including both common iliac limbs, is patent. No evidence of an endoleak. 2. No significant mesenteric or renal artery stenosis. 3. Right lower extremity: * No evidence of significant inflow stenosis. * Status post SFA to PT bypass, which is widely patent. * Secondary to the bypass, the posterior tibial artery is the main perfusing artery of the lower leg. 4. Left lower extremity: * No evidence of significant inflow stenosis. * No significant femoropopliteal disease. * Intact three-vessel runoff. 5. No acute abnormality identified in the abdomen or pelvis. 6. Hypervascular blush in the lateral wall of the anus may represent an AV malformation versus hemorrhoids. Direct visualization recommended. A critical result message (Yellow) has been communicated via the [employer] system on 11/15/2022 4:49 PM, Message ID [id number]. WSN: [id number] Ordering Physician: Thomas Banegas Dictated By: Chauncey Platt MD Dictated Date/Time: 11/15/22 4:50 pm Reviewed By: Chauncey Platt MD Signed By: Chauncey Platt MD Signed Date/Time: 11/15/22 4:50 pm Transcribed By: LOGAN Transcribed Date/Time: 11/15/22 4:[address] Head WO contrast * BHSPowerscribe , CIS S: [email or web address] Parada MD: VERIFY Event Display: Result: Authored Date: [id number] CT Head/Brain W/O Contrast INDICATION: Hx of Present Illness: Patient with known DVTs taking Jeringa injections daily presentswith increasing bilat leg pain and numbness, dizziness and chest pain.; Reason: AIDS; Clinical Question(s): Subarachnoid Hemorrhage; Order Comment: TECHNIQUE: Noncontrast head CT using axial technique and reconstructed in axial and coronal planes.Iterative reconstruction techniques are used to optimize dose and image quality. CTDIvol Head: 48.10 mGy, DLP Head: 773 mGy*cm. COMPARISON: CT head from 09/26/2022 FINDINGS: Tonger view findings, lines and tubes: None. BRAIN AND EXTRA-AXIAL SPACES: No parenchymal hemorrhage, midline shift, or mass effect. Suazo-white matter differentiation is wellpreserved. No acute infarct. Negative insular ribbon and hyperdense vessel signs. Mild prominence of the ventricles and sulci consistent with parenchymal volume loss. Mild low-density white matter changes. No subarachnoid hemorrhage. No subdural or epidural collection. CALVARIUM, SKULL BASE, AND SOFT TISSUES: No fractures or suspicious bony lesions. The paranasal sinuses and mastoid air cells are clear. Visualized orbits and globes are intact. The extracranial soft tissues are unremarkable. IMPRESSION: No acute intracranial pathology. WSN: [id number] Ordering Physician: Thomas Banegas Dictated By: Fletcher Lenz MD Dictated Date/Time: 11/15/22 4:02 pm Reviewed By: Fletcher Lenz MD Signed By: Fletcher Lenz MD Signed Date/Time: 11/15/22 4:02 pm Transcribed By: LOGAN Transcribed Date/Time: 11/15/22 3:59 pm Patient Care team information Care Team Personnel Name: Joaquina Jerome RN Position: [facility] RN Member Role: Primary Care Nurse Name: Joselyn Sevilla RN Position: [facility] RN Member Role: Primary Care Nurse Name: Thomas Bright Position: [facility] Outreach Member Role: PCP Address: Address: [address] [place] [address] Name: Karmen Mandujano RN Position: [facility] Rad RN Member Role: Primary Care Nurse Name: Margie Castanon RN Position: [facility] RN Member Role: Primary Care Nurse Name: Susy Castaneda RN Position: [facility] RN Member Role: Primary Care Nurse Name: Justin Dailey MD Position: [facility] Infectious Disease MD Member Role: Lifetime Consulting Physician Address: Address: [address] [place] [address] [address] Name: Sophia Bell RN Position: [facility] ED RN W/OE and Tasks Member Role: Primary Care Nurse Name: Veronica Davila RN Position: [facility] RN Member Role: Primary Care Nurse Name: Melva Herndon RN Position: [facility] RN Member Role: Primary Care Nurse Name: Karena Penaloza RN Position: [facility] RN Member Role: Primary Care Nurse Name: Fang Adams RN Position: [facility] Hospital Machine Slat Basket Maker Member Role: Primary Care Nurse Name: Karri Jaramillo RN Position: [facility] RN Member Role: Primary Care Nurse Name: Consuelo Alvarenga RN Position: [facility] RN Member Role: Primary Care Nurse Name: Veronica Blanco RN Position: [facility] PCO RN Member Role: Primary Care Nurse Name: Ramsey Perez RN Position: [facility] RN Member Role: Primary Care Nurse Name: Lazaro Huffman RN Position: [facility] RN Member Role: Primary Care Nurse Name: Jacquelyn Juarez Position: [facility] RN Member Role: Primary Care Nurse Name: Jacquelyn Ramsey RN Position: [facility] RN Member Role: Primary Care Nurse Name: Jennifer Ghosh RN Position: [facility] RN Member Role: Primary Care Nurse Name: Qiana Mansfield RN Position: [facility] RN Member Role: Primary Care Nurse Name: Chuyita Aslhey RN Position: [facility] RN Member Role: Primary Care Nurse Name: Elle Blackwood RN Position: [facility] Machine Slat Basket Maker Member Role: Primary Care Nurse Name: Yamilex Arteaga RN Position: [facility] RN Member Role: Primary Care Nurse Name: Skip Harry RN Position: [facility] RN Member Role: Primary Care Nurse Name: Valentine Perrin RN Position: [facility] RN Member Role: Primary Care Nurse Name: Mark Howell RN Position: [facility] RN Member Role: Primary Care Nurse Name: Elaine Webb RN Position: [facility] RN Member Role: Primary Care Nurse Name: Stephanie Houser RN Position: [facility] RN Member Role: Primary Care Nurse Name: Amber Gu RN Position: [facility] RN Member Role: Primary Care Nurse Name: Reji Zimmerman Jr Position: [facility] JUSTYNA RN W/OE and Tasks Member Role: Primary Care Nurse Name: Dang Padilla RN Position: [facility] RN Member Role: Primary Care Nurse Name: Scot Anderson RN Position: [facility] RN Member Role: Primary Care Nurse Name: Luz Marina Byrd RN Position: [facility] RN Member Role: Primary Care Nurse Name: Joelle Sandoval RN Position: [facility] RN Member Role: Primary Care Nurse Name: Gideon Diaz RN Position: [facility] Onco RN Member Role: Primary Care Nurse Name: Diana Anderson RN Position: [facility] RN Member Role: Primary Care Nurse Name: Thomas Betancur RN Position: [facility] RN Member Role: Primary Care Nurse Name: Vee Mcnamara RN Position: [facility] Hospital Machine Slat Basket Maker Member Role: Primary Care Nurse Name: Nisreen Greenberg RN Position: [facility] Outreach Member Role: Primary Care Nurse Name: Lanny Bolton RN Position: [facility] RN Member Role: Primary Care Nurse Name: Anthony Carolina RN Position: [facility] RN Member Role: Primary Care Nurse Name: Ana Dupont RN Position: [facility] RN Member Role: Primary Care Nurse Name: Alyssia Durbin RN Position: [facility] RN Member Role: Primary Care Nurse Name: Afshan Galeano RN Position: [facility] SN RN Member Role: Primary Care Nurse Name: Reji Bright RN Position: [facility] RN Member Role: Primary Care Nurse Name: Estefanía Austin RN Position: [facility] RN Member Role: Primary Care Nurse Name: Sarah Crason RN Position: [facility] RN Member Role: Primary Care Nurse Name: Amira Hughes RN Position: [facility] RN Member Role: Primary Care Nurse Name: Rina Dunlap LPN Position: [facility] RN Member Role: Primary Care Nurse Name: Chiquis Callejas RN Position: [facility] Oncmaría RN Member Role: Primary Care Nurse Name: Linda Rajput RN, I Position: [facility] RN Member Role: Primary Care Nurse Name: Blayne Arnold MD Position: [facility] Resident Member Role: ED Resident Address: Address: [address] [place] [address]- Name: Carline Castaneda Position: [facility] ED [facility] Member Role: Patient Care Provider Name: Myriam Bermudez RN Position: [facility] ED RN W/OE and Tasks Member Role: Patient Care Provider Name: Chicho Cortez MD Position: [facility] Resident Member Role: Admitting Physician Address: Address: [address] [place] [address]- Care Team Related Persons Name: SUSY MEADOWS Address: [address] [place] [address] Name: YOANDY TAYLOR Address: home [address] [address]
--- OUTSIDE RECORDS SUMMARY | 2023-02-21 14:49 | XMS_ITS | Continuity of Care Document ---
Author Name Unknown Organization [facility] Address [address] [place] [id number]- Care Team Providers Care Geriatrician Name Role Phone Thomas Bright Primary Care Physician Encounter [facility] Date(s): 11/02/22 - 11/02/[address] [address]- Encounter Diagnosis Lower extremity pain(Final) - 11/02/22 Discharge Disposition: A-D/C Home Attending Physician: Leonor Zamarripa MD Admitting Physician: Leonor Zamarripa MD Referring Physician: Not on Staff, Referring MD Allergies, Adverse Reactions, Alerts Substance Reaction Severity Status Lamictal Hives, itch Active Tegretol Hallucinations, aggression A ctive Tylenol itching Active Lobster Persistent Severe Active Percocet 7.5/325 1 C/O: itching Active influenza virus vaccine, inactivated 2 Active traMADol Active oxyCODONE Persistent Mild Active 1makes pt itchy 2Hx of Guillain - [place] Immunizations Given and Recorded Vaccine Date Status Refusal Reason pneumococcal 23-valent vaccine 02/03/17 Given Not Given Vaccine Date Status Refusal Reason pneumococcal 23-valent vaccine 01/25/17 Not Given Patient Refuses Medications atorvastatin 80 mg oral tablet 1 tablet = 80 mg, By Mouth, Daily at bedtime, # 30 tablet, 0 Refills, Maintenance, Tablet, Route toPharmacy Electronically, [id number], [facility] Start Date: 04/02/18 Stop [...] Ordered morphine 10 mg/5 mL oral solution 2.5 mL = 5 mg, By Mouth, Every 4 hours, PRN for pain, for 3 days, # 45 mL, 0 Refills, Acute 11/05/22 19:38:00 EDT, 11/02/22 19:38:00 EST, Solution, [facility]/pharmacy #[id number], Partial fill upon patient request if the prescription is for a schedule II opioid d... Start Date: 11/02/22 Stop Date: 11/05/22 Status: Ordered MorPHINE Inj 2 mg, Injection, IV Push Slowly, Once, PRN for Pain , Severe, Routine, 11/02/22 16:59:00 EST Start Date: 11/02/22 Stop Date: 11/02/22 Status: Completed MorPHINE Inj 2 mg, Injection, IV Push Slowly, Once, PRN for Pain , Severe, Routine, 11/02/22 18:26:00 EST Start Date: 11/02/22 Stop Date: 11/02/22 Status: Completed MorPHINE Inj 2 mg, Injection, IV Push Slowly, Once, STAT, 11/02/22 19:37:00 EST, Stop date 11/02/22 19:37:00 EST Start Date: 11/02/22 Stop Date: 11/02/22 Status: Completed ondansetron 4 mg oral tablet, [...] Active GERD (gastroesophageal reflux disease) Confirmed Active 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 Hematoma of leg Confirmed Active HIV disease Confirmed 2002 Active HLD (hyperlipidemia) Confirmed Active HTN (hypertension) Confirmed Active Hypothyroidism Confirmed Active Skin infection Confirmed Active PVD (peripheral vascular disease) Confirmed Active 1sequelae, left sided weakness Results Radiology Reports * Exam Date Time Procedure Performing Provider Status 11/02/22 6:[address] Abd/Pelvis W/ IV Contrast Only Jenna Perrin; Auth (Verified) Notes: (CT Abd/Pelvis W/ IV Contrast Only) Reason For Exam: Pain RESULT: CT Abd/Pelvis W/ IV Contrast Only CT Abd/Pelvis W/ IV Contrast Only Hx of Present Illness: pt reports difficulty walking since sunday d t pain in posterior knee, states he had a blood clot in August and was feeling better now increase pain, this morning woke up with midsternal CP left hand numbness, 10 10, dizziness episode with LOC; Reason: Pain; Clinical Question(s): Tumor Secondary; Aortic Dissection; Order Comment: TECHNIQUE: Spiral CT through the abdomen and pelvis with IV contrast formatted in 3 planes. 100 cc of Omnipaque 300 was administered intravenously. This study was performed without oral contrast. Weight-based protocol using automatic tube modulation was used to optimize exposure parameters. CTDIvol Body: 7.18 mGy, DLP Body: 1024 mGy*cm. COMPARISON: None. FINDINGS: Dietetic Technician Registered View Findings, Lines and Tubes: None. Visualized Chest: Lung bases are clear. No pleural effusion. The heart is normal in size. No pericardial effusion. Diaphragm: Normal. Liver: Normal. Gallbladder: No CT evidence of gallbladder pathology. Bile ducts: No biliary ductal dilation. Spleen: Normal. Pancreas: Normal. Adrenal glands: Normal. Kidneys and ureters: No hydronephrosis, stones, or suspicious masses. Bladder: Normal. Reproductive organs: Prostate measures 5 cm. Stomach, small bowel, and large bowel: Normal. Status post colonic anastomosis in the region of thesigmoid colon. Appendix: Surgically absent Peritoneum and retroperitoneum: No ascites or pneumoperitoneum. No omental or mesenteric lesions. Lymph nodes: No enlarged lymph nodes. Blood vessels: Aorta biiliac stent grafts in place without evidence of stent leak. No evidence of venous thrombosis. Abdominal and pelvic wall: Unremarkable. Bones: No acute abnormality. IMPRESSION: Unremarkable CT of the abdomen and pelvis. Enlarged prostate. Recommend correlation with patient's PSA level. WSN: [id number] Ordering Physician: Marcie Miller Dictated By: Mat Silverman MD Dictated Date/Time: 11/02/22 7:17 pm Reviewed By: Mat Silverman MD Signed By: Mat Silverman MD Signed Date/Time: 11/02/22 7:17 pm Transcribed By: LOGAN Transcribed Date/Time: 11/02/22 7:11 pm * Exam Date Time Procedure Performing Provider Status 11/02/22 6:[address] Angio Chest Jenna Graf; Efra champion (Verified) Notes: (CT Angio Chest) Reason For Exam: PE suspected, Intermediate prob, positive D-dimer,;Other: RESULT: CT Angio Chest EXAMINATION: CT Angio Chest INDICATION: Hx of Present Illness: pt reports difficulty walking since Sunday d t pain in posterior knee, states he had a blood clot in August and was feeling better now increase pain, this morning woke up with midsternal CP left hand numbness, 10 10, dizziness episode with LOC; Reason: Other:; PE suspected, Intermediate probe, positive D-dimer,; Clinical Question(s): Pulmonary Embolism TECHNIQUE: Spiral CTA of the chest was performed after rapid IV contrast administration without cardiac gating, triggered by an HOLLY on the main pulmonary artery. Images are formatted in multiple planes using 2-D multiplanar and 3-D maximum intensity projection. 100 cc of Omnipaque 300 was administered intravenously. Weight-based protocol using automatic tube modulation was used to optimize exposure parameters. CTDIvol Body: 7.18 mGy, DLP Body: 1024 mGy*cm. COMPARISONS: None. ANGIOGRAPHIC FINDINGS: No pulmonary embolism to the subsegmental level. Normal caliber pulmonary arteries. No acute aortic abnormality seen on this study performed without cardiac gating. NON-ANGIOGRAPHIC FINDINGS: Dietetic Technician Registered View Findings, Lines and Tubes: None. Trachea and Airways: Patent without evidence of tracheal or endobronchial lesion. Lungs and Pleura: Minimal dependent atelectasis. 5 mm calcified granuloma within the right lower lobe. 3 mm calcified granuloma within the right upper lobe. No effusion or pneumothorax. Mediastinum and bronson: No mass or hematoma. No mediastinal or hilar lymphadenopathy. No esophageal abnormality. Heart: Heart is normal in size. No pericardial effusion. Chest Wall Soft Tissues: Normal. Diaphragm and upper abdomen: No significant abnormality. Bones: Old compression fracture T6. IMPRESSION: No evidence of pulmonary embolism. Multiple calcified granulomas likely due to previous granulomatous infection. WSN: [id number] Ordering Physician: Marcie Miller Dictated By: Mat Silverman MD Dictated Date/Time: 11/02/22 7:11 pm Reviewed By: Mat Silverman MD Signed By: Mat Silverman MD Signed Date/Time: 11/02/22 7:11 pm Transcribed By: LOGAN Transcribed Date/Time: 11/02/22 7:03 pm * Exam Date Time Procedure Performing Provider Status 11/02/22 4:18 PM US Doppler Ext Lower Venous Bilat Gricelda Stack; Emeli (Verified) Notes: (US Doppler Ext Lower Venous Bilat) Reason For Exam: Pain in limb;Other: RESULT: US Doppler Ext Lower Venous Bilat US Doppler Ext Lower Venous Bilat INDICATION: clot in August and was feeling better now increase pain, Pain in limb; Clinical Question(s): Thrombosis COMPARISON: 10/16/2022. IMAGING TECHNIQUE: Ultrasound of the veins [...] patent without evidence of thrombosis. 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 IMPRESSION: No evidence of deep venous thrombosis. 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 I have personally reviewed the images and I agree with this report. WSN: [id number] Ordering Physician: Janey Clark Dictated By: Jayy Goodman DO Dictated Date/Time: 11/02/22 5:11 pm Reviewed By: Ramsey Miller MD Signed By: Ramsey Miller MD Signed Date/Time: 11/02/22 5:16 pm Transcribed By: LOGAN Transcribed Date/Time: 11/02/22 4:45 pm * Exam Date Time Procedure Performing Provider Status 11/02/22 2:23 PM Chest 2 Views Frontal and Lat Sagrario Blackburn; Auth (Verified) Notes: (Chest 2 Views Frontal and Lat) Reason For Exam: Chest Pain;Other: RESULT: Chest 2 Views Frontal and Lat Chest 2 Views Frontal and Lat Hx of Present Illness: pt reports difficulty walking since sunday d t pain in posterior knee, states he had a blood clot in august and was feeling better now increase pain, this morning woke up with midsternal CP left hand numbness, 10 10, dizziness episode with LOC; Reason: Other:; Chest Pain; Clinical Question(s): Other: COMPARISON: 10/16/2022 FINDINGS: No acute cardiopulmonary process IMPRESSION: No acute abnormality. WSN: [id number] Ordering Physician: Rose Mary Appiah Dictated By: Reji Valera MD Dictated Date/Time: 11/02/22 2:27 pm Reviewed By: Reji Valera MD Signed By: Reji Valera MD Signed Date/Time: 11/02/22 2:27 pm Transcribed By: LOGAN Transcribed Date/Time: 11/02/22 2:26 pm Vital Signs Most recent to oldest [Reference Range]: 1 2 3 Height 175 cm (11/02/22 12:56 PM) Oxygen Saturation [94-100 %] 96 % (11/02/22 2:19 PM) 100 % (11/02/22 1:18 PM) 100 % (11/02/22 12:56 PM) Pulse Rate [55-90 bpm] 76 bpm (11/02/22 2:19 PM) 82 bpm (11/02/22 1:18 PM) 86 bpm (11/02/22 12:56 PM) Blood Pressure [90-138/55-84 mm Hg] 116/79mm Hg (11/02/22 2:19 PM) 109/69mm Hg (11/02/22 1:18 PM) 120/76mm Hg (11/02/22 12:56 PM) Respiratory Rate [16-30 br/min] 18 br/min (11/02/22 7:47 PM) 19 br/min (11/02/22 5:57 PM) 18 br/min (11/02/22 4:34 PM) Temperature [96.8-100.4 DegF] 98.0 DegF (11/02/22 1:18 PM) 98.2 DegF (11/02/22 12:56 PM) Mode of Delivery (Oxygen) Room air (11/02/22 2:19 PM) Room air (11/02/22 1:18 PM) Room air (11/02/22 12:56 PM) Blood pressure sites Arm, left (11/02/22 2:19 PM) Arm, right (11/02/22 1:18 PM) Arm, left (11/02/22 12:56 PM) Temperature Route Oral (11/02/22 1:18 PM) Oral (11/02/22 12:56 PM) Dry Weight 85 kg (11/02/22 12:56 PM) Dry Weight Obtained Via Patient/family s tated (11/02/22 12:56 PM) Social History Social History Type Response Smoking Status Never (less than 100 in lifetime) entered on: 10/25/21 Sex EKG study * Event Display: ECG 12-Lead Authored Date: Please click on pdf link to open report * Event Display: ECG 12-Lead Authored Date: Ventricular Rate: 87 BPM Atrial Rate: 87 BPM P-R Interval: 130 ms QRS Duration: 92 ms Q-T Interval: 398 ms QTC Calculation(Bazett): 478 ms P [place]: -6 degrees R [place]: 46 degrees T [place]: 7 degrees Normal sinus rhythm Normal ECG When compared with ECG of 16-OCT-2022 12:45, No significant change was found Confirmed by SCTO SUTTON DO ([id number]) on 11/02/2022 3:19:12 PM [place]: SCOT SUTTON DO * Event Display: EKG Authored Date: Note * Brittany Leslie RN: PERFORM, SIGN, VERIFY Event Display: Patient Education Handout Authored Date: * CANDACE Wheatley S: TRANSCReji Russell MD: VERIFY Event Display: Result: Authored Date: Chest 2 Views Frontal and Lat Hx of Present Illness: pt reports difficulty walking since sunday d t pain in posterior knee, states he had a blood clot in august and was feeling better now increase pain, this morning woke up with midsternal CP left hand numbness, 10 10, dizziness episode with LOC; Reason: Other:; Chest Pain; Clinical Question(s): Other: COMPARISON: 10/16/2022 FINDINGS: No acute cardiopulmonary process IMPRESSION: No acute abnormality. WSN: [id number] Ordering Physician: Rose Mary Appiah Dictated By: Reji Valera MD Dictated Date/Time: 11/02/22 2:27 pm Reviewed By: Reji Valera MD Signed By: Reji Valera MD Signed Date/Time: 11/02/22 2:27 pm Transcribed By: LOGAN Transcribed Date/Time: 11/02/22 2:26 pm US.doppler Lower extremity vein - bilateral * CANDACE Wheatley S: Ramsey Iglesias MD: VERIFY Jayy Goodman DO: SIGN Event Display: Result: Authored Date: US Doppler Ext Lower Venous Bilat INDICATION: clot in August and was feeling better now increase pain, Pain in limb; Clinical Question(s): Thrombosis COMPARISON: 10/16/2022. IMAGING TECHNIQUE: Ultrasound of the veins [...] patent without evidence of thrombosis. 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 IMPRESSION: No evidence of deep venous thrombosis. 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 I have personally reviewed the images and I agree with this report. WSN: [id number] Ordering Physician: Janey Clark Dictated By: Jayy Goodman DO Dictated Date/Time: 11/02/22 5:11 pm Reviewed By: Ramsey Miller MD Signed By: Ramsey Miller MD Signed Date/Time: 11/02/22 5:16 pm Transcribed By: LOGAN Transcribed Date/Time: 11/02/22 4:45 pm CTA Chest vessels W contrast IV * [facility] , CIS S: TRANSCRIBE Mat Silverman MD H: VERIFY Event Display: Result: Authored Date: EXAMINATION: CT Angio Chest INDICATION: Hx of Present Illness: pt reports difficulty walking since Sunday d t pain in posterior knee, states he had a blood clot in August and was feeling better now increase pain, this morning woke up with midsternal CP left hand numbness, 10 10, dizziness episode with LOC; Reason: Other:; PE suspected, Intermediate probe, positive D-dimer,; Clinical Question(s): Pulmonary Embolism TECHNIQUE: Spiral CTA of the chest was performed after rapid IV contrast administration without cardiac gating, triggered by an HOLLY on the main pulmonary artery. Images are formatted in multiple planes using 2-D multiplanar and 3-D maximum intensity projection. 100 cc of Omnipaque 300 was administered intravenously. Weight-based protocol using automatic tube modulation was used to optimize exposure parameters. CTDIvol Body: 7.18 mGy, DLP Body: 1024 mGy*cm. COMPARISONS: None. ANGIOGRAPHIC FINDINGS: No pulmonary embolism to the subsegmental level. Normal caliber pulmonary arteries. No acute aortic abnormality seen on this study performed without cardiac gating. NON-ANGIOGRAPHIC FINDINGS: Dietetic Technician Registered View Findings, Lines and Tubes: None. Trachea and Airways: Patent without evidence of tracheal or endobronchial lesion. Lungs and Pleura: Minimal dependent atelectasis. 5 mm calcified granuloma within the right lower lobe. 3 mm calcified granuloma within the right upper lobe. No effusion or pneumothorax. Mediastinum and bronson: No mass or hematoma. No mediastinal or hilar lymphadenopathy. No esophageal abnormality. Heart: Heart is normal in size. No pericardial effusion. Chest Wall Soft Tissues: Normal. Diaphragm and upper abdomen: No significant abnormality. Bones: Old compression fracture T6. IMPRESSION: No evidence of pulmonary embolism. Multiple calcified granulomas likely due to previous granulomatous infection. WSN: [id number] Ordering Physician: Marcie Miller Dictated By: Mat Silverman MD Dictated Date/Time: 11/02/22 7:11 pm Reviewed By: Mat Silverman MD Signed By: Mat Silverman MD Signed Date/Time: 11/02/22 7:11 pm Transcribed By: LOGAN Transcribed Date/Time: 11/02/22 7:[address] Abdomen and Pelvis W contrast IV * [facility] , CIS S: TRANSCRIBE Mat Silverman MD: VERIFY Event Display: Result: Authored Date: [id number] CT Abd/Pelvis W/ IV Contrast Only Hx of Present Illness: pt reports difficulty walking since sunday d t pain in posterior knee, states he had a blood clot in August and was feeling better now increase pain, this morning woke up with midsternal CP left hand numbness, 10 10, dizziness episode with LOC; Reason: Pain; Clinical Question(s): Tumor Secondary; Aortic Dissection; Order Comment: TECHNIQUE: Spiral CT through the abdomen and pelvis with IV contrast formatted in 3 planes. 100 cc of Omnipaque 300 was administered intravenously. This study was performed without oral contrast. Weight-based protocol using automatic tube modulation was used to optimize exposure parameters. CTDIvol Body: 7.18 mGy, DLP Body: 1024 mGy*cm. COMPARISON: None. FINDINGS: Dietetic Technician Registered View Findings, Lines and Tubes: None. Visualized Chest: Lung bases are clear. No pleural effusion. The heart is normal in size. No pericardial effusion. Diaphragm: Normal. Liver: Normal. Gallbladder: No CT evidence of gallbladder pathology. Bile ducts: No biliary ductal dilation. Spleen: Normal. Pancreas: Normal. Adrenal glands: Normal. Kidneys and ureters: No hydronephrosis, stones, or suspicious masses. Bladder: Normal. Reproductive organs: Prostate measures 5 cm. Stomach, small bowel, and large bowel: Normal. Status post colonic anastomosis in the region of thesigmoid colon. Appendix: Surgically absent Peritoneum and retroperitoneum: No ascites or pneumoperitoneum. No omental or mesenteric lesions. Lymph nodes: No enlarged lymph nodes. Blood vessels: Aorta biiliac stent grafts in place without evidence of stent leak. No evidence of venous thrombosis. Abdominal and pelvic wall: Unremarkable. Bones: No acute abnormality. IMPRESSION: Unremarkable CT of the abdomen and pelvis. Enlarged prostate. Recommend correlation with patient's PSA level. WSN: [id number] Ordering Physician: Marcie Miller Dictated By: Mat Silverman MD Dictated Date/Time: 11/02/22 7:17 pm Reviewed By: Mat Silverman MD Signed By: Mat Silverman MD Signed Date/Time: 11/02/22 7:17 pm Transcribed By: LOGAN Transcribed Date/Time: 11/02/22 7:11 pm Patient Care team information Care Team Personnel Name: Joaquina Jerome RN Position: [facility] RN Member Role: Primary Care Nurse Name: Joselyn Sevilla RN Position: [facility] RN Member Role: Primary Care Nurse Name: Thomas Bright Position: [facility] Outreach Member Role: PCP Address: Address: [address] [place] [address] Name: Karmen Mandujano RN Position: [facility] Anjel RN Member Role: Primary Care Nurse Name: Margie Castanon RN Position: S RN Member Role: Primary Care Nurse Name: Shahbaz Castaneda RN Position: S RN Member Role: Primary Care Nurse Name: Justin Dailey MD Position: [facility] Infectious Disease MD Member Role: Lifetime Consulting Physician Address: Address: [address] [place] [address] Infectious Disease [address] Name: Sophia Bell RN Position: [facility] RN Member Role: Primary Care Nurse Name: Veronica Davila RN Position: [facility] RN Member Role: Primary Care Nurse Name: Melva Herndon RN Position: [facility] RN Member Role: Primary Care Nurse Name: Karena Penaloza RN Position: [facility] RN Member Role: Primary Care Nurse Name: Fang Adams RN Position: [facility] Flattening Press Operator Member Role: Primary Care Nurse Name: Karri Jaramillo RN Position: [facility] RN Member Role: Primary Care Nurse Name: Consuelo Alvarenga RN Position: [facility] RN Member Role: Primary Care Nurse Name: Veronica Blanco RN Position: [facility] PCO RN Member Role: Primary Care Nurse Name: Ramsey Perez RN Position: [facility] RN Member Role: Primary Care Nurse Name: Lazaro Huffman RN Position: [facility] RN Member Role: Primary Care Nurse Name: Jacquelyn Juarez Position: [facility] RN Member Role: Primary Care Nurse Name: Jacquelyn Ramsey RN Position: [facility] RN Member Role: Primary Care Nurse Name: Jennifer Ghosh RN Position: [facility] RN Member Role: Primary Care Nurse Name: Qiana Mansfield RN Position: [facility] RN Member Role: Primary Care Nurse Name: Chuyita Ashley RN Position: [facility] RN Member Role: Primary Care Nurse Name: Elle Blackwood RN Position: [facility] Flattening Press Operator Member Role: Primary Care Nurse Name: Yamilex Arteaga RN Position: [facility] RN Member Role: Primary Care Nurse Name: Skip Harry RN Position: [facility] RN Member Role: Primary Care Nurse Name: Valentine Perrin RN Position: [facility] RN Member Role: Primary Care Nurse Name: Mark Howell RN Position: [facility] RN Member Role: Primary Care Nurse Name: Elaine Webb RN Position: [facility] RN Member Role: Primary Care Nurse Name: Stephanie Houser RN Position: [facility] RN Member Role: Primary Care Nurse Name: Amber Gu RN Position: [facility] RN Member Role: Primary Care Nurse Name: Reji Zimmerman Jr Position: [facility] ED RN W/OE and Tasks Member Role: Primary Care Nurse Name: Dang Padilla RN Position: [facility] RN Member Role: Primary Care Nurse Name: Scot Anderson RN Position: [facility] RN Member Role: Primary Care Nurse Name: Luz Marina Byrd RN Position: [facility] RN Member Role: Primary Care Nurse Name: Joelle Sandoval RN Position: [facility] RN Member Role: Primary Care Nurse Name: Gideon Diaz RN Position: [facility] RN Member Role: Primary Care Nurse Name: Diana Anderson RN Position: [facility] RN Member Role: Primary Care Nurse Name: Thomas Betancur RN Position: [facility] RN Member Role: Primary Care Nurse Name: Vee Mcnamara RN Position: [facility] Flattening Press Operator Member Role: Primary Care Nurse Name: Nisreen Greenberg RN Position: [facility] Outreach Member Role: Primary Care Nurse Name: Lanny Bolton RN Position: [facility] RN Member Role: Primary Care Nurse Name: Anthony Carolina RN Position: [facility] RN Member Role: Primary Care Nurse Name: Ana Dupont RN Position: [facility] RN Member Role: Primary Care Nurse Name: Alyssia Durbin RN Position: [facility] RN Member Role: Primary Care Nurse Name: Afshan Galeano RN Position: [facility] SN RN Member Role: Primary Care Nurse Name: Reji Bright RN Position: [facility] RN Member Role: Primary Care Nurse Name: Estefanía Austin RN Position: [facility] RN Member Role: Primary Care Nurse Name: Sarah Carson RN Position: [facility] RN Member Role: Primary Care Nurse Name: Amira Hughes RN Position: [facility] RN Member Role: Primary Care Nurse Name: Rina Dunlap LPN Position: [facility] RN Member Role: Primary Care Nurse Name: Chiquis Callejas RN Position: [facility] Onco RN Member Role: Primary Care Nurse Name: Linda Rajput RN, I Position: [facility] RN Member Role: Primary Care Nurse Name: Leilani Stewart Position: [facility] JUSTYNA [facility] Member Role: Project Drilling Engineer Name: Marcie Boggs Position: [facility] Associate Professional Member Role: ED Physician Oil Drilling Engineer Address: Address: [address] [place] [address] [place] [address]- [place] Name: Leonor Zamarripa MD Position: [facility] ED Medicine MD Member Role: Admitting Physician Address: Address: [address] [facility] [place] [address]- Name: Brittany Leslie RN Position: [facility] ED RN W/OE and Tasks Member Role: Patient Care Provider Care Team Related Persons Name: MEADOWSSHAHBAZ Cheng Address: home [address] [place] [address] Name: YOANDY TAYLOR Address: home [address] [address]
--- OUTSIDE RECORDS SUMMARY | 2023-02-21 14:49 | XMS_ITS | Continuity of Care Document ---
Author Name Unknown Organization [facility] ter Address [address] [place] [address]- Care Team Providers Care Solutions Architect Consultant Name Role Phone Thomas Bright Primary Care Physician En[place] [facility] Date(s): 04/20/20 - 04/20/[address] [address]- [facility] Discharge Disposition: A-D/C Home Attending Physician: Hua Simpson MD Admitting Physician: Hua Simpson MD Referring Physician: Hua Simpsno MD Allergies, Adverse Reactions, Alerts Substance Reaction Severity Status Lamictal Hives, itch Active Tegretol Hallucinations, aggression A ctive Tylenol itching Active Lobster Persistent Severe Active Percocet 7.5/325 1 C/O: itching Active influenza virus vaccine, inactivated 2 Active traMADol Active oxyCODONE Persistent Mild Active 1makes pt itchy 2Hx of Guillain - [place] Immunizations Given and Recorded Vaccine Date Status Refusal Reason pneumococcal 23-valent vaccine 02/03/17 Given Not Given Vaccine Date Status Refusal Reason pneumococcal 23-valent vaccine 01/25/17 Not Given Patient Refuses Medications aspirin 81 mg oral delayed release tablet See Instructions, ALY WEBB [place]OS [place], # 30 tablet, 1 Refills, Maintenance, [id number], 175, cm, 02/26/20 14:11:00 EDT, Height, 87.5, kg, 02/26/20 14:11:00 EDT, Dry Weight Start Date: 04/12/20 Status: Ordered atorvastatin 80 mg oral tablet 1 tablet = 80 mg, By Mouth, Daily, # 30 tablet, 0 Refills, Maintenance, Tablet, Route to Pharmacy Electronically, [id number], [facility] Start Date: 04/02/18 Stop Date: [...] 01/12/20 22:53:00 EDT, Route to Pharmacy Electronically, [facility]/pharmacy #[id number], 175, cm, 01/12/20 17:28:00 [...] 0 Refills,Maintenance, 10/14/19 23:05:00 EST, DIS Tablet, [facility]/pharmacy #[id number], 175, cm, 09/12/19 10:20:00 [...] ant GERD (gastroesophageal reflu x disease)(Confirmed) Active 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 Hematoma of leg(Confirmed) Active HIV disease(Confirmed) 2003 Active Hypercholesterolemia(Confirmed) 2006 Active HLD (hyperlipidemia)(Confirmed) Active HTN (hypertension)(Confirmed) Active Hypothyroidism(Confirmed) Active Skin infection(Confirmed) Active PVD (peripheral vascular disease)(Confirmed) Active 1sequelae, left sided weakness Procedures Procedure Date Related Diagnosis Body Site Status Esophagogastroduodenoscopy and biopsy 04/20/20 Completed Vital Signs Most recent to oldest [Reference Range]: 1 2 3 Height 175.3 cm (04/20/20 8:03 AM) Weight 87.1 kg (04/20/20 8:03 AM) Oxygen Saturation [94-100 %] 96 % (04/20/20 9:32 AM) 94 % (04/20/20 9:19 AM) 97 % (04/20/20 8:03 AM) Pulse Rate [55-90 bpm] 84 bpm (04/20/20 8:03 AM) Body Mass Index [18.5-24.99] 28.34 *H* (04/20/20 8:03 AM) Blood Pressure [90-138/55-84 mm Hg] 105/73mm Hg (04/20/20 9:32 AM) 102/74mm Hg (04/20/20 9:19 AM) 121/78mm Hg (04/20/20 8:03 AM) Respiratory Rate [16-30 br/min] 19 br/min (04/20/20 9:32 AM) 15 br/min *L* (04/20/20 9:19 AM) 16 br/min (04/20/20 8:03 AM) Temperature [96.8-100.4 DegF] 98.5 DegF (04/20/20 8:03 AM) Mode of Delivery (Oxygen) Room air (04/20/20 9:32 AM) Room air (04/20/20 9:19 AM) Room air (04/20/20 8:03 AM) Blood pressure sites Arm, left (04/20/20 9:32 AM) Arm, left (04/20/20 9:19 AM) Arm, right (04/20/20 8:03 AM) Temperature Route Temporal (04/20/20 8:03 AM) Weight Obtained Via Patient/family state d (04/20/20 8:03 AM) Social History Social History Type Response Smoking Status Former smoker; Tobac co user in household: No; Type: Cigarettes; Other: quit in july 2016; Tobacco use times per day: half pack per day; Started at age: 11; entered on: 05/29/18 Sex
--- OUTSIDE RECORDS SUMMARY | 2023-02-21 14:49 | XMS_ITS | Continuity of Care Document ---
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 Name Role Phone Thomas Bright Primary Care Physician Encounter [facility] Date(s): 05/06/20 - 05/06/[address] [address]- [facility] Discharge Disposition: A-D/C Walkout Attending Physician: Not [...] 1makes pt itchy 2Hx of Guillain - [place] Immunizations Given and Recorded Vaccine Date Status Refusal Reason pneumococcal 23-valent vaccine 02/03/17 Given Not Given Vaccine Date Status Refusal Reason pneumococcal 23-valent vaccine 01/25/17 Not Given Patient Refuses Medications aspirin 81 mg oral delayed release tablet See Instructions, ALY BARK[place], # 30 tablet, 1 Refills, Maintenance, [id number], 175, cm, 02/26/20 14:11:00 EDT, Height, 87.5, kg, 02/26/20 14:11:00 EDT, Dry Weight Start Date: 04/12/20 Status: Ordered atorvastatin 80 mg oral tablet 1 tablet = 80 mg, By Mouth, Daily, # 30 tablet, 0 Refills, Maintenance, Tablet, Route to Pharmacy Electronically, [id number], [facility] Start Date: 04/02/18 Stop Date: [...] 01/12/20 22:53:00 EDT, Route to Pharmacy Electronically, [facility]/pharmacy #[id number], 175, cm, 01/12/20 17:28:00 EDT, Height, [...] 0 Refills,Maintenance, 10/14/19 23:05:00 EST, DIS Tablet, [facility]/pharmacy #[id number], 175, cm, 09/12/19 10:20:00 EST,Height, 86, [...] ant GERD (gastroesophageal reflu x disease)(Confirmed) Active 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 Hematoma of leg(Confirmed) Active HIV disease(Confirmed) 2002 Active Hypercholesterolemia(Confirmed) 2006 Active HLD (hyperlipidemia)(Confirmed) Active HTN (hypertension)(Confirmed) Active Hypothyroidism(Confirmed) Active Skin infection(Confirmed) Active PVD (peripheral vascular disease)(Confirmed) Active 1sequelae, left sided weakness Vital Signs Most recent to oldest [Reference Range]: 1 2 3 Height 175 cm (05/06/20 12:47 PM) Weight 87 kg (05/06/20 12:47 PM) Oxygen Saturation [94-100 %] 98 % (05/06/20 4:26 PM) 98 % (05/06/20 12:18 PM) 98 % (05/06/20 12:13 PM) Pulse Rate [55-90 bpm] 86 bpm (05/06/20 4:26 PM) 98 bpm *H* (05/06/20 12:18 PM) 102 bpm *H* (05/06/20 12:13 PM) Blood Pressure [90-138/55-84 mm Hg] 119/74mm Hg (05/06/20 4:26 PM) 119/83mm Hg (05/06/20 12:18 PM) Respiratory Rate [16-30 br/min] 16 br/min (05/06/20 4:26 PM) 16 br/min (05/06/20 12:18 PM) Temperature [96.8-100.4 DegF] 97.3 DegF (05/06/20 4:26 PM) 97.2 DegF (05/06/20 12:18 PM) Mode of Delivery (Oxygen) Room air (05/06/20 4:26 PM) Room air (05/06/20 12:18 PM) Room air (05/06/20 12:13 PM) Blood pressure sites Arm, left (05/06/20 4:26 PM) Arm, right (05/06/20 12:18 PM) Temperature Route Oral (05/06/20 4:26 PM) Oral (05/06/20 12:18 PM) Dry Weight 87 kg (05/06/20 12:47 PM) Social History Social History Type Response Smoking Status Former smoker; Tobac co user in household: No; Type: Cigarettes; Other: quit in july 2016; Tobacco use times per day: half pack per day; Started at age: 11; entered on: 05/29/18 Sex
--- OUTSIDE RECORDS SUMMARY | 2023-02-21 14:49 | XMS_ITS | Continuity of Care Document ---
Author Name Unknown Organization [facility] Address [address] [place] [address]- Care Team Providers Care Acquisition Specialist Name Role Phone Thomas Bright Primary Care Physician Encounter [facility] Date(s): 10/14/20 - 10/14/[address] [address]- Encounter Diagnosis Chest pain(Final) - 10/12/20 Discharge Disposition: A-D/C Home Attending Physician: Jerrell MG, Zohaib Admitting Physician: Laurel Ruelas MD Referring Physician: Not on Staff, Referring MD Allergies, Adverse Reactions, Alerts Substance Reaction Severity Status Lamictal Hives, itch Active Tegretol Hallucinations, aggression A ctive Tylenol itching Active Lobster Persistent Severe Active Percocet 7.5/325 1 C/O: itching Active influenza virus vaccine, inactivated 2 Active traMADol Active oxyCODONE Persistent Mild Active 1makes pt itchy 2Hx of Guillain - [place] Immunizations Given and Recorded Vaccine Date Status Refusal Reason pneumococcal 23-valent vaccine 02/03/17 Given Not Given Vaccine Date Status Refusal Reason pneumococcal 23-valent vaccine 01/25/17 Not Given Patient Refuses Medications aspirin 81 mg oral delayed release tablet See Instructions, ALY GOINSA TODOS [place], # 30 tablet, 1 Refills, Maintenance, [facility], 175, cm, 02/26/20 14:11:00 EDT, Height, 87.5, kg, 02/26/20 14:11:00 EDT, Dry Weight Start Date: 04/12/20 Status: Ordered atorvastatin 80 mg oral tablet 1 tablet = 80 mg, By Mouth, Daily, # 30 tablet, 0 Refills, Maintenance, Tablet, Route to Pharmacy Electronically, [id number], [facility] Start Date: 04/02/18 Stop [...] EDT, Supply Start Date: 04/06/20 Status: Ordered enoxaparin 80 mg/0.8 mL injectable solution 0.9 mL = 90 mg, Subcutaneous Injection, Every 12 hours, please stop when INR 2- 3, PCP/VNA will be closely monitoring, # 14 mL, 0 Refills, Maintenance, 10/14/20 13:10:00 EST, [id number] Partial fill upon patient request if the pres... Start Date: 10/14/20 Status: Ordered famotidine 20 mg oral tablet [...] Tablet Start Date: 10/29/18 Status: Ordered warfarin 5 mg oral tablet 1 tablet = 5 mg, By Mouth, Daily, # 30 tablet, 0 Refills, Maintenance, 10/14/20 13:07:00 EST, Tablet, [facility]/pharmacy #[id number], Partial fill upon patient request if the prescription is for a schedule II opioid drug., 175, cm, 10/14/20 4:14:00 EST, Height, 9... 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 Hematoma of leg(Confirmed) Active HIV disease(Confirmed) 2002 Active Hypercholesterolemia(Confirmed) 2005 Active HLD (hyperlipidemia)(Confirmed) Active HTN (hypertension)(Confirmed) Active Hypothyroidism(Confirmed) Active Skin infection(Confirmed) Active PVD (peripheral vascular disease)(Confirmed) Active 1sequelae, left sided weakness Results Radiology Reports * Exam Date Time Procedure Performing Provider Status 10/12/20 2:24 PM Chest 2 Views Frontal and Lat Zahraa Mancia; Auth (Verified) Notes: (Chest 2 Views Frontal and Lat) Reason For Exam: Angina RESULT: Chest 2 Views Frontal and Lat Chest 2 Views Frontal and Lat Hx of Present Illness: SOB - started on Eliquis 2 2020 for B DVT's. c o midsternal CP also and feeling sleepy, tired, and disoriented Also c o mid AP - h o AAA repair 4 yrs ago; Reason: Angina; Clinical Question(s): CHF COMPARISON: None. FINDINGS: LINES AND TUBES: None. LUNGS AND PLEURA: Clear lungs. Normal pulmonary vascularity. No pleural effusion. No pneumothorax. HEART, MEDIASTINUM AND [place]: Heart is normal in size. Normal upper mediastinal and hilar contour. BONES AND SOFT TISSUES: No acute abnormality. Surgical clips in the right upper quadrant. Partially imaged abdominal aorticstent. IMPRESSION: No acute abnormality. I have personally reviewed the images and I agree with this report. WSN: [id number] Ordering Physician: Estelle Sotelo Dictated By: Ramsey Car MD Dictated Date/Time: 10/12/20 2:31 pm Reviewed By: Zac Park MD Signed By: Zac Park MD Signed Date/Time: 10/12/20 2:36 pm Transcribed By: LOGAN Transcribed Date/Time: 10/12/20 2:27 pm Vital Signs Most recent to oldest [Reference Range]: 1 2 3 Height 175 cm (10/14/20 4:14 AM) 175 cm (10/14/20 12:05 AM) 175 cm (10/13/20 7:39 PM) Weight 90.4 kg (10/12/20 11:21 PM) Oxygen Saturation [94-100 %] 97 % (10/14/20 11:59 AM) 96 % (10/14/20 8:44 AM) 98 % (10/14/20 4:14 AM) Pulse Rate [55-90 bpm] 86 bpm (10/14/20 11:59 AM) 85 bpm (10/14/20 8:44 AM) 89 bpm (10/14/20 4:14 AM) Body Mass Index [18.5-24.99] 29.52 *H* (10/12/20 11:21 PM) Blood Pressure [90-138/55-84 mm Hg] 115/72mm Hg (10/14/20 11:59 AM) 106/77mm Hg (10/14/20 8:44 AM) 109/69mm Hg (10/14/20 4:14 AM) Respiratory Rate [16-30 br/min] 18 br/min (10/14/20 11:59 AM) 18 br/min (10/14/20 10:17 AM) 18 br/min (10/14/20 8:44 AM) Temperature [96.8-100.4 DegF] 98.4 DegF (10/14/20 11:59 AM) 98.2 DegF (10/14/20 8:44 AM) 98.3 DegF (10/14/20 4:14 AM) Mode of Delivery (Oxygen) Room air (10/14/20 11:59 AM) Room air (10/14/20 8:44 AM) Room air (10/14/20 4:14 AM) Blood pressure sites Arm, right (10/14/20 11:59 AM) Arm, right (10/14/20 8:44 AM) Arm, right (10/14/20 4:14 AM) Temperature Route Oral (10/14/20 11:59 AM) Oral (10/14/20 8:44 AM) Oral (10/14/20 4:14 AM) Dry Weight 94.4 kg (10/12/20 11:21 PM) Dry Weight Obtained Via Bed scale (10/12/20 11:21 PM) Social History Social History Type Response Smoking Status Former smoker; Tobac co user in household: No; Type: Cigarettes; Other: quit in july 2016; Tobacco use times per day: half pack per day; Started at age: 11; entered on: 05/29/18 Sex
--- OUTSIDE RECORDS SUMMARY | 2023-02-21 14:49 | XMS_ITS | Continuity of Care Document ---
Author Name Unknown Organization [facility] Address [address] [place] [address]- Care Team Providers Care Superintendent Gas Distribution Name Role Phone Thomas Bright Primary Care Physician Encounter [facility] Date(s): 01/06/22 - 01/06/[address] [address]- Discharge Disposition: A-D/C Home Attending Physician: Leonor [...] 1makes pt itchy 2Hx of Guillain - [place] Immunizations Given and Recorded Vaccine Date Status Refusal Reason pneumococcal 23-valent vaccine 02/03/17 Given Not Given Vaccine Date Status Refusal Reason pneumococcal 23-valent vaccine 01/25/17 Not Given Patient Refuses Medications atorvastatin 80 mg oral tablet 1 tablet = 80 mg, By Mouth, Daily, # 30 tablet, 0 Refills, Maintenance, Tablet, Route to Pharmacy Electronically, [id number], [facility] Start Date: 04/02/18 [...] mg, Injection, IV Push Slowly, Once, STAT, 01/06/22 13:24:00 EDT, Stop date 01/06/22 13:24:00 EDT Start Date: 01/06/22 Stop Date: 01/06/22 Status: Completed ondansetron 4 mg oral tablet, disintegrating 1 tablet = 4 mg, By Mouth, Every 8 hours, PRN as needed for nausea/vomiting, # 10 tablet, 0 Refills, Maintenance, 10/15/21 21:12:00 EST, DIS Tablet, [facility]/pharmacy #[id number], Partial fill upon patient request if the [...] Active GERD (gastroesophageal reflu x disease)(Confirmed) Active 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 Hematoma of leg(Confirmed) Active HIV disease(Confirmed) 2002 Active HLD (hyperlipidemia)(Confirmed) Active HTN (hypertension)(Confirmed) Active Hypothyroidism(Confirmed) Active Skin infection(Confirmed) Active PVD (peripheral vascular disease)(Confirmed) Active 1sequelae, left sided weakness Vital Signs Most recent to oldest [Reference Range]: 1 2 3 Height 176 cm (01/06/22 11:19 AM) Weight 85 kg (01/06/22 11:19 AM) Oxygen Saturation [94-100 %] 98 % (01/06/22 2:15 PM) 98 % (01/06/22 12:04 PM) 98 % (01/06/22 11:19 AM) Pulse Rate [55-90 bpm] 98 bpm *H* (01/06/22 2:15 PM) 104 bpm *H* (01/06/22 12:04 PM) 95 bpm *H* (01/06/22 11:19 AM) Blood Pressure [90-138/55-84 mm Hg] 116/86mm Hg (01/06/22 2:15 PM) 111/79mm Hg (01/06/22 12:04 PM) 115/83mm Hg (01/06/22 11:19 AM) Respiratory Rate [16-30 br/min] 18 br/min (01/06/22 3:28 PM) 18 br/min (01/06/22 2:15 PM) 18 br/min (01/06/22 12:04 PM) Temperature [96.8-100.4 DegF] 98 DegF (01/06/22 2:15 PM) 98.4 DegF (01/06/22 12:04 PM) 97.9 DegF (01/06/22 11:19 AM) Mode of Delivery (Oxygen) Room air (01/06/22 2:15 PM) Room air (01/06/22 12:04 PM) Room air (01/06/22 11:19 AM) Blood pressure sites Arm, left (01/06/22 2:15 PM) Arm, left (01/06/22 12:04 PM) Arm, left (01/06/22 11:19 AM) Temperature Route Oral (01/06/22 2:15 PM) Oral (01/06/22 12:04 PM) Oral (01/06/22 11:19 AM) Dry Weight 85 kg (01/06/22 11:19 AM) Weight Obtained Via Patient/family state d (01/06/22 11:19 AM) Social History Social History Type Response Smoking Status Never (less than 100 in lifetime) entered on: 10/25/21 Sex
--- OUTSIDE RECORDS SUMMARY | 2023-02-21 14:49 | XMS_ITS | Continuity of Care Document ---
Author Name Unknown Organization [facility] Address [address] [place] [address]- Care Team Providers Care Cryptologic Support Specialist Name Role Phone Thomas Bright Primary Care Physician Encounter [facility] Date(s): 12/29/22 - 01/05/23 [facility] [address], [place] [address] Attending Physician: Anselmo Mendieta MD Admitting [...] 1makes pt itchy 2Hx of Guillain - [place] Immunizations Given and Recorded Vaccine Date Status Refusal Reason pneumococcal 23-valent vaccine 02/03/17 Given Not Given Vaccine Date Status Refusal Reason pneumococcal 23-valent vaccine 01/25/17 Not Given Patient Refuses Medications atorvastatin 80 mg oral tablet 1 tablet = 80 mg, By Mouth, Daily at bedtime, # 30 tablet, 0 Refills, Maintenance, Tablet, Route toPharmacy Electronically, [id number], [facility] Start Date: 04/02/18 Stop [...] Active GERD (gastroesophageal reflux disease) Confirmed Active 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 Hematoma of leg Confirmed Active HIV disease Confirmed 2002 Active HLD (hyperlipidemia) Confirmed Active HTN (hypertension) Confirmed Active Hypothyroidism Confirmed Active Skin infection Confirmed Active PVD (peripheral vascular disease) Confirmed Active 1sequelae, left sided weakness Vital Signs Most recent to oldest [Reference Range]: 1 Height 175 cm (12/29/22 3:06 PM) Weight 88.5 kg (12/29/22 3:06 PM) Oxygen Saturation [94-100 %] 97 % (12/29/22 3:06 PM) Pulse Rate [55-90 bpm] 79 bpm (12/29/22 3:06 PM) Body Mass Index [18.5-24.99 kg/m2] 28.9 kg/m2 *H* (12/29/22 3:06 PM) Blood Pressure [90-138/55-84 mm Hg] 110/ 80mm Hg (12/29/22 3:06 PM) Blood pressure sites Arm, right (12/29/22 3:06 PM) Social History Social History Type Response Smoking Status Never (less than 100 in lifetime) entered on: 10/25/21 Sex Note * Marge Maxwell: PERFORM, SIGN, VERIFY Event Display: Patient Education/Instruction Authored Date: [id number] [facility] *[facility] [address] Clinical Summary Name CARLOS GONZALEZ Age 47 Years 1975 PCP Eddy PEREZ, Thomas Locke PCP Visit Date 12/29/2022 15:00:00 Additional Instructions: Scheduled Appointments?? Future Appointments ?No Future Appointments Scheduled Follow-Up Instructions ?? Diagnosis Medications: Please continue your medications until treatment is completed or stopped by your provider. Discuss any questions related to medications with your provider. Medications to Continue with No Changes These medications were not printed or sent to your pharmacy Albuterol (ProAir HFA 90 mcg/inh inhalation aerosol) INHALE DANDO DOS SOPLIDOS CADA CUATRO HORAS CUANDO SEA NECESARIO. Next Dose: Atorvastatin (atorvastatin 80 mg oral tablet) 1 tab(s) Oral Daily at Bedtime for 30 Days. Refills: 0. Next Dose: Cobicistat/Darunavir (Prezcobix 800 mg-150 mg oral tablet) 1 tab(s) Oral Daily. with food. Next Dose: dulaglutide (Trulicity Pen 1.5 mg/0.5 mL subcutaneous solution) INJECT 1 PEN INTO THE SKIN ONCE EVERY WEEK. Next Dose: Famotidine (famotidine 20 mg oral tablet) TOME DOS TABLETAS POR VIA ORAL TODOS [place]. Next Dose: fondaparinux (fondaparinux 7.5 mg/0.6 mL subcutaneous solution) 0.6 Milliliter Subcutaneous Injection Daily for 28 Days. given 7.5 mg QD, when switching from lovenox, this should be given at time of next planned dose of lovenox, after which lovenox can be discontinued. Refills: 3. Next Dose: Lacosamide (Vimpat 100 mg oral tablet) 1 tab(s) Oral twice a day. at night. Next Dose: Levothyroxine (levothyroxine 25 mcg (0.025 mg) oral capsule) 1 capsule Oral Daily. Next Dose: Ondansetron (ondansetron 4 mg oral tablet, disintegrating) TAKE ONE TABLET BY MOUTH ONCE A DAY NEEDED FOR NAUSEA AND VOMITING. Next Dose: Pantoprazole (pantoprazole 40 mg oral delayed release tablet) 1 tab(s) Oral Daily. take at a different time than famotidine. Refills: 0. Next Dose: Raltegravir (Isentress HD 600 mg oral tablet) 2 tab(s) Oral Daily. Next Dose: Tenofovir (tenofovir disoproxil fumarate 300 mg oral tablet) 1 tab(s) Oral Daily. Next Dose: Trazodone (traZODone 150 mg oral tablet) 1 tab(s) Oral Daily at Bedtime. Next Dose: Allergy Info:?? oxyCODONE; traMADol; influenza virus vaccine, inactivated; Percocet 7.5/325; Lobster; Tylenol; Tegretol; Lamictal Medications Given This Visit Future Orders ?No future orders Vital Signs Height 175 cm Weight 88.5 kg BMI 28.9 kg/m2 Blood Pressure 110 mm Hg/80 mm Hg Temperature Pulse Rate 79 bpm Respiratory Rate 02 Sat Mode of Delivery 97 %/ You can now view a summary of your hospital visit from the comfort of your home through a free online portal called [employer]. [employer] is a website that allows you to securely view your medical information including discharge summary, medications and follow-up visits. ??You can alsosend a secure electronic message to your doctor???s office to request appointments, renew medications or just ask a question. You can enroll at [email or web address] or register during your next office visit. Disclaimer:?? The information provided is of a general nature and is intended to be used in conjunction with the recommendations and advice of your health care practitioner. ??Every effort has been made to ensure that the information provided is accurate and complete at the time it is provided to you however, as your needs change, or, as new ??information becomes available, different or additional instructions may be required. If you have questions, please consult with your primary care provider or pharmacist, as appropriate. ??This information is not intended to serve as substitution for assessment and evaluation by a qualified health care provider. If you do not have a primary care provider, you may find a [facility] provider by calling [facility] [employer] at [phone]. For information about the plan of care including goals and instructions for your diagnosis, please see the patient education orders section of this document. Patient Education Materials?? The content of this educational material or handout may have been modified, supplemented, or adapted from its original content and format to support your individualized medical care. Patient Care team information Care Team Personnel Name: Joselyn Sevilla RN Position: [facility] RN Member Role: Primary Care Nurse Name: Thomsa Bright Position: [facility] Outreach Member Role: PCP Address: Address: [address] [place] [address] Name: Karmen Mandujano RN Position: [facility] Anjel RN Member Role: Primary Care Nurse Name: Margie Castanon RN Position: [facility] RN Member Role: Primary Care Nurse Name: Shahbaz Castaneda RN Position: S RN Member Role: Primary Care Nurse Name: Justin Dailey MD Position: [facility] Infectious Disease MD Member Role: Lifetime Consulting Physician Address: Address: [address] [place] [address] Infectious Disease [place], [place] [address] Name: Sophia Bell RN Position: [facility] RN Member Role: Primary Care Nurse Name: Veronica Davila RN Position: [facility] RN Member Role: Primary Care Nurse Name: Melva Herndon RN Position: [facility] RN Member Role: Primary Care Nurse Name: Karena Penaloza RN Position: [facility] RN Member Role: Primary Care Nurse Name: Fang Adams RN Position: [facility] Anesthesiology Teacher Member Role: Primary Care Nurse Name: Karri Jaramillo RN Position: [facility] RN Member Role: Primary Care Nurse Name: Consuelo Alvarenga RN Position: [facility] RN Member Role: Primary Care Nurse Name: Veronica Blanco RN Position: [facility] DANIELLEO RN Member Role: Primary Care Nurse Name: Lazaro Huffman RN Position: [facility] RN Member Role: Primary Care Nurse Name: Jacquelyn Juarez Position: [facility] RN Member Role: Primary Care Nurse Name: Jacquelyn Ramsey RN Position: [facility] RN Member Role: Primary Care Nurse Name: Jennifer Ghosh RN Position: [facility] RN Member Role: Primary Care Nurse Name: Qiana Mansfield RN Position: [facility] RN Member Role: Primary Care Nurse Name: Chuyita Ashley RN Position: [facility] RN Member Role: Primary Care Nurse Name: Elle Blackwood RN Position: [facility] Anesthesiology Teacher Member Role: Primary Care Nurse Name: Yamilex Arteaga RN Position: [facility] RN Member Role: Primary Care Nurse Name: Skip Harry RN Position: [facility] RN Member Role: Primary Care Nurse Name: Valentine Perrin RN Position: [facility] RN Member Role: Primary Care Nurse Name: Mark Howell RN Position: [facility] RN Member Role: Primary Care Nurse Name: Elaine Webb RN Position: [facility] RN Member Role: Primary Care Nurse Name: Stephanie Houser RN Position: [facility] RN Member Role: Primary Care Nurse Name: Amber Gu RN Position: [facility] RN Member Role: Primary Care Nurse Name: Reji Zimmerman Jr Position: [facility] ED RN W/OE and Tasks Member Role: Primary Care Nurse Name: Dang Padilla RN Position: [facility] RN Member Role: Primary Care Nurse Name: Scot Anderson RN Position: [facility] RN Member Role: Primary Care Nurse Name: Luz Marina Byrd RN Position: [facility] RN Member Role: Primary Care Nurse Name: Joelle Sandoval RN Position: [facility] RN Member Role: Primary Care Nurse Name: Gideon Diaz RN Position: [facility] Onco RN Member Role: Primary Care Nurse Name: Diana Anderson RN Position: [facility] RN Member Role: Primary Care Nurse Name: Thomas Betancur RN Position: [facility] RN Member Role: Primary Care Nurse Name: Vee Mcnamara RN Position: [facility] Anesthesiology Teacher Member Role: Primary Care Nurse Name: Nisreen Greenberg RN Position: [facility] Outreach Member Role: Primary Care Nurse Name: Lanny Bolton RN Position: [facility] RN Member Role: Primary Care Nurse Name: Anthony Carolina RN Position: [facility] RN Member Role: Primary Care Nurse Name: Ana Dupont RN Position: [facility] RN Member Role: Primary Care Nurse Name: Alyssia Durbin RN Position: [facility] RN Member Role: Primary Care Nurse Name: Afshan Galeano RN Position: [facility] SN RN Member Role: Primary Care Nurse Name: Reji Bright RN Position: [facility] RN Member Role: Primary Care Nurse Name: Estefanía Austin RN Position: [facility] RN Member Role: Primary Care Nurse Name: Sarah Carson RN Position: [facility] RN Member Role: Primary Care Nurse Name: Amira Hughes RN Position: [facility] RN Member Role: Primary Care Nurse Name: Rina Dunlap LPN Position: [facility] RN Member Role: Primary Care Nurse Name: Chiquis Callejas RN Position: [facility] Onco RN Member Role: Primary Care Nurse Name: Linda Rajput RN, I Position: [facility] RN Member Role: Primary Care Nurse Care Team Related Persons Name: SHAHBAZ MEADOWS Address: [address] [place] [address] Name: YOANDY TAYLOR Address: home [address] [address]
--- OUTSIDE RECORDS SUMMARY | 2023-02-21 14:49 | XMS_ITS | Continuity of Care Document ---
Author Name Unknown Organization [facility] Address [address] [place] [address]- Care Team Providers Care Proof Press Operator Name Role Phone Thomas Bright Primary Care Physician [phone] Encounter [facility] Date(s): 05/02/22 - 05/03/[address] [address]- Discharge Disposition: A-D/C Walkout Attending Physician: Not [...] 1makes pt itchy 2Hx of Guillain - [place] Immunizations Given and Recorded Vaccine Date Status Refusal Reason pneumococcal 23-valent vaccine 02/03/17 Given Not Given Vaccine Date Status Refusal Reason pneumococcal 23-valent vaccine 01/25/17 Not Given Patient Refuses Medications atorvastatin 80 mg oral tablet 1 tablet = 80 mg, By Mouth, Daily, # 30 tablet, 0 Refills, Maintenance, Tablet, Route to Pharmacy Electronically, [id number], [facility] Start Date: 04/02/18 Stop [...] Refills, Maintenance, 10/15/21 21:12:00 EST, DIS Tablet, [facility]/pharmacy #[id number], Partial fill upon patient request if the [...] Active GERD (gastroesophageal reflu x disease)(Confirmed) Active 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 Active Hematoma of leg(Confirmed) Active HIV disease(Confirmed) 2002 Active HLD (hyperlipidemia)(Confirmed) Active HTN (hypertension)(Confirmed) Active Hypothyroidism(Confirmed) Active Skin infection(Confirmed) Active PVD (peripheral vascular disease)(Confirmed) Active 1sequelae, left sided weakness Vital Signs Most recent to oldest [Reference Range]: 1 2 3 Oxygen Saturation [94-100 %] 98 % (05/02/22 10:26 PM) 98 % (05/02/22 7:40 PM) 100 % (05/02/22 6:41 PM) Pulse Rate [55-90 bpm] 103 bpm *H* (05/02/22 10:26 PM) 90 bpm (05/02/22 7:40 PM) 89 bpm (05/02/22 6:41 PM) Blood Pressure [90-138/55-84 mm Hg] 115/93mm Hg (05/02/22 10:26 PM) 128/97mm Hg (05/02/22 7:40 PM) 147/100mm Hg *H* (05/02/22 6:41 PM) Respiratory Rate [16-30 br/min] 18 br/min (05/02/22 3:12 PM) 18 br/min (05/02/22 12:21 PM) 16 br/min (05/02/22 8:02 AM) Temperature [96.8-100.4 DegF] 98.1 DegF (05/02/22 10:26 PM) 98.2 DegF (05/02/22 7:40 PM) 98.4 DegF (05/02/22 6:41 PM) Mode of Delivery (Oxygen) Room air (05/02/22 10:26 PM) Room air (05/02/22 7:40 PM) Room air (05/02/22 6:41 PM) Blood pressure sites Arm, right (05/02/22 10:26 PM) Arm, right (05/02/22 7:40 PM) Arm, left (05/02/22 6:41 PM) Temperature Route Oral (05/02/22 10:26 PM) Oral (05/02/22 7:40 PM) Oral (05/02/22 6:41 PM) Social History Social History Type Response Smoking Status Never (less than 100 in lifetime) entered on: 10/25/21 Sex Care Team Personnel Name: Thomas Bright Address: [address] [place] [address]
--- OUTSIDE RECORDS SUMMARY | 2023-02-21 14:49 | XMS_ITS | Continuity of Care Document ---
Author Name Unknown Organization [facility] Address [address] [place] [address]- Care Team Providers Care Machine Clothing Man Name Role Phone Thomas Bright Primary Care Physician Encounter [facility] Date(s): 12/10/19 - 12/20/19 [facility] [address] [place] [address]- [facility] Attending Physician: Román Adams Admitting Physician: AdmtrRomán Referring Physician: AdmtrRomán Allergies, Adverse Reactions, Alerts Substance Reaction Severity Status Lamictal Hives, itch Active Tegretol Hallucinations, aggression A ctive Tylenol itching Active Lobster Persistent Severe Active influenza virus vaccine, inactivated 1 Active traMADol Active oxyCODONE Persistent Mild Active Percocet 7.5/325 2 C/O: itching Active 1Hx of Guillain - [place] 2makes pt itchy Immunizations Given and Recorded Vaccine Date Status Refusal Reason pneumococcal 23-valent vaccine 02/03/17 Given Not Given Vaccine Date Status Refusal Reason pneumococcal 23-valent vaccine 01/25/17 Not Given Patient Refuses Medications atorvastatin 80 mg oral tablet 1 tablet = 80 mg, By Mouth, Daily, # 30 tablet, 0 Refills, Maintenance, Tablet, Route to Pharmacy Electronically, [id number], [facility] Start Date: 04/02/18 Stop [...] 0 Refills,Maintenance, 10/14/19 23:05:00 EST, DIS Tablet, 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
--- OUTSIDE RECORDS SUMMARY | 2023-02-21 14:49 | XMS_ITS | Continuity of Care Document ---
Author Name Unknown Organization [facility] Address [address] [place] [address]- Care Team Providers Care Facs Teacher Name Role Phone Thomas Bright Primary Care Physician Encounter [facility] Date(s): 12/16/21 - 12/23/21 [facility] [address] [place], [place] [address] Attending Physician: Anselmo Mendieta MD [...] 1makes pt itchy 2Hx of Guillain - [place] Immunizations Given and Recorded Vaccine Date Status Refusal Reason pneumococcal 23-valent vaccine 02/03/17 Given Not Given Vaccine Date Status Refusal Reason pneumococcal 23-valent vaccine 01/25/17 Not Given Patient Refuses Medications atorvastatin 80 mg oral tablet 1 tablet = 80 mg, By Mouth, Daily, # 30 tablet, 0 Refills, Maintenance, Tablet, Route to Pharmacy Electronically, [id number], [facility] Start Date: 04/02/18 Stop [...] Refills, Maintenance, 10/15/21 21:12:00 EST, DIS Tablet, [facility]/pharmacy #[id number], Partial fill upon patient request if the [...] Active GERD (gastroesophageal reflu x disease)(Confirmed) Active 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 Active Hematoma of leg(Confirmed) Active HIV disease(Confirmed) 2002 Active HLD (hyperlipidemia)(Confirmed) Active HTN (hypertension)(Confirmed) Active Hypothyroidism(Confirmed) Active Skin infection(Confirmed) Active PVD (peripheral vascular disease)(Confirmed) Active 1sequelae, left sided weakness Vital Signs Most recent to oldest [Reference Range]: 1 Height 175 cm (12/16/21 3:15 PM) Weight 85.0 kg (12/16/21 3:15 PM) Pulse Rate [55-90 bpm] 76 bpm (12/16/21 3:15 PM) Body Mass Index [18.5-24.99] 27.76 *H* (12/16/21 3:15 PM) Blood Pressure [90-138/55-84 mm Hg] 118/ 72mm Hg (12/16/21 3:15 PM) Blood pressure sites Arm, right (12/16/21 3:15 PM) Weight Obtained Via Patient/family state d (12/16/21 3:15 PM) Social History Social History Type Response Smoking Status Never (less than 100 in lifetime) entered on: 10/25/21 Sex
--- OUTSIDE RECORDS SUMMARY | 2023-02-21 14:49 | XMS_ITS | Continuity of Care Document ---
Author Name Unknown Organization [facility] Address [address] [place] [address]- Care Team Providers Care Cutter Aluminum Sheet Name Role Phone Thomas Bright Primary Care Physician [phone] Encounter [facility] Date(s): 10/11/20 - 11/16/20 [facility] [address] [place], [place] [address] Discharge Disposition: A-D/C Home Attending Physician: Khris MG(Hem/Onc), Paulino Olguin Admitting Physician: Vamsi MG, Carson Gonzales Referring Physician: Thomas Bright Allergies, Adverse Reactions, Alerts Substance Reaction Severity Status Lamictal Hives, itch Active Tegretol Hallucinations, aggression A ctive traMADol Active oxyCODONE Persistent Mild Active influenza virus vaccine, inactivated 1 Active Tylenol itching Active Lobster Persistent Severe Active Percocet 7.5/325 2 C/O: itching Active 1Hx of Guillain - [place] 2makes pt itchy Immunizations Given and Recorded Vaccine Date Status Refusal Reason pneumococcal 23-valent vaccine 02/03/17 Given Not Given Vaccine Date Status Refusal Reason pneumococcal 23-valent vaccine 01/25/17 Not Given Patient Refuses Medications aspirin 81 mg oral delayed release tablet See Instructions, ALY GIONSA TODOS [place], # 30 tablet, 1 Refills, Maintenance, [id number], 175, cm, 02/26/20 14:11:00 EDT, Height, 87.5, kg, 02/26/20 14:11:00 EDT, Dry Weight Start Date: 04/12/20 Status: Ordered atorvastatin 80 mg oral tablet 1 tablet = 80 mg, By Mouth, Daily, # 30 tablet, 0 Refills, Maintenance, Tablet, Route to Pharmacy Electronically, [id number], [facility] Start Date: 04/02/18 Stop [...] 0 Refills, Maintenance, 10/22/20 8:48:00 EST, Gel, [facility]/pharmacy #[id number], Partial fill upon patient request [...] Maintenance, 10/29/18 6:55:39 EST, Tablet Start Date: 3/5/19 Status: Ordered warfarin 10 mg oral tablet 1 tablet = 10 mg, By Mouth, Daily, # 7 tablet, 0 Refills, Maintenance, 10/29/20 9:13:00 EST, Tablet, [facility]/pharmacy #[id number], Partial fill upon patient request if the prescription is for a schedule II opioid drug., 175, cm, 10/28/20 10:07:00 EST, Height, 8... 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 Active Hematoma of leg(Confirmed) Active HIV disease(Confirmed) 2002 Active Hypercholesterolemia(Confirmed) 2005 Active HLD (hyperlipidemia)(Confirmed) Active HTN (hypertension)(Confirmed) Active Hypothyroidism(Confirmed) Active Skin infection(Confirmed) Active PVD (peripheral vascular disease)(Confirmed) Active 1sequelae, left sided weakness Vital Signs Most recent to oldest [Reference Range]: 1 Height 175 cm (11/03/20 2:18 PM) Weight 90.1 kg (11/03/20 2:18 PM) Pulse Rate [55-90 bpm] 92 bpm *H* (11/03/20 2:18 PM) Body Mass Index [18.5-24.99] 29.42 *H* (11/03/20 2:18 PM) Blood Pressure [90-138/55-84 mm Hg] 119/ 87mm Hg (11/03/20 2:18 PM) Temperature [96.8-100.4 DegF] 98.3 DegF (11/03/20 2:18 PM) Blood pressure sites Arm, left (11/03/20 2:18 PM) Temperature Route Temporal (11/03/20 2:18 PM) Dry Weight 90.1 kg (11/03/20 2:18 PM) Weight Obtained Via Standing scale (11/03/20 2:18 PM) Dry Weight Obtained Via Standing scale (11/03/20 2:18 PM) Social History Social History Type Response Smoking Status Former smoker; Tobac co user in household: No; Type: Cigarettes; Other: quit in july 2016; Tobacco use times per day: half pack per day; Started at age: 11; entered on: 05/29/18 Sex
--- OUTSIDE RECORDS SUMMARY | 2023-02-21 14:49 | XMS_ITS | Continuity of Care Document ---
Author Name Unknown Organization [facility] ter Address [address] [place] [phone]- Care Team Providers Care Clinical Geneticist Name Role Phone Thomas Bright Primary Care Physician [place] [facility] [place] - 02/26/[address] [address] [facility] Discharge Disposition: A-D/C [...] 1makes pt itchy 2Hx of Guillain - [place] Immunizations Given and Recorded Vaccine Date Status Refusal Reason pneumococcal 23-valent vaccine 02/03/17 Given Not Given Vaccine Date Status Refusal Reason pneumococcal 23-valent vaccine 01/25/17 Not Given Patient Refuses Medications atorvastatin 80 mg oral tablet 1 tablet = 80 mg, By Mouth, Daily, # 30 tablet, 0 Refills, Maintenance, Tablet, Route to Pharmacy Electronically, [id number], [facility] Start Date: 04/02/18 Stop Date: 05/02/18 Status: Ordered famotidine 20 mg oral tablet 20 mg, 1, tablet, By Mouth, Daily, # 30 tablet, Refills 0, Tot. 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 Active Hematoma of leg(Confirmed) Active HIV disease(Confirmed) 2002 Active Hypercholesterolemia(Confirmed) 2005 Active HLD (hyperlipidemia)(Confirmed) Active HTN (hypertension)(Confirmed) Active Hypothyroidism(Confirmed) Active Skin infection(Confirmed) Active PVD (peripheral vascular disease)(Confirmed) Active 1sequelae, left sided weakness Vital Signs Most recent to oldest [Reference Range]: 1 2 3 Height 175 cm (02/26/20 2:11 PM) 175 cm (02/26/20 8:56 AM) 175 cm (02/26/20 8:33 AM) Weight 87.5 kg (02/26/20 2:11 PM) 87.5 kg (02/26/20 8:56 AM) 87.5 kg (02/26/20 8:33 AM) Oxygen Saturation [94-100 %] 100 % (02/26/20 2:11 PM) 98 % (02/26/20 8:33 AM) Pulse Rate [55-90 bpm] 84 bpm (02/26/20 2:11 PM) 75 bpm (02/26/20 8:33 AM) Body Mass Index [18.5-24.99] 28.57 *H* (02/26/20 2:11 PM) 28.57 *H* (02/26/20 8:33 AM) Blood Pressure [90-138/55-84 mm Hg] 118/77mm Hg (02/26/20 2:11 PM) 115/72mm Hg (02/26/20 8:33 AM) Respiratory Rate [16-30 br/min] 18 br/min (02/26/20 2:11 PM) 18 br/min (02/26/20 8:33 AM) Temperature [96.8-100.4 DegF] 97.9 DegF (02/26/20 2:11 PM) 98.1 DegF (02/26/20 8:33 AM) Mode of Delivery (Oxygen) Room air (02/26/20 2:11 PM) Room air (02/26/20 8:33 AM) Blood pressure sites Arm, right (02/26/20 2:11 PM) Arm, right (02/26/20 8:33 AM) Temperature Route Oral (02/26/20 2:11 PM) Oral (02/26/20 8:33 AM) Dry Weight 87.5 kg (02/26/20 2:11 PM) 87.5 kg (02/26/20 8:56 AM) 87.5 kg (02/26/20 8:33 AM) Weight Obtained Via Patient/family state d (02/26/20 8:33 AM) Dry Weight Obtained Via Patient/family s tated (02/26/20 8:33 AM) Social History Social History Type Response Smoking Status Former smoker; Tobac co user in household: No; Type: Cigarettes; Other: quit in july 2016; Tobacco use times per day: half pack per day; Started at age: 11; entered on: 05/29/18 Sex
--- OUTSIDE RECORDS SUMMARY | 2023-02-21 14:50 | XMS_ITS | Continuity of Care Document ---
Author Name Unknown Organization [facility] Address [address] [place] [phone]- Care Team Providers Care Director Clinical Applications Name Role Phone Thomas Bright Primary Care Physician [phone] [place] [facility] [place] 05/26/[address] [address]- Discharge Disposition: A-D/C Walkout Attending Physician: Not [...] 1makes pt itchy 2Hx of Guillain - [place] Immunizations Given and Recorded Vaccine Date Status Refusal Reason pneumococcal 23-valent vaccine 02/03/17 Given Not Given Vaccine Date Status Refusal Reason pneumococcal 23-valent vaccine 01/25/17 Not Given Patient Refuses Medications aspirin 81 mg oral delayed release tablet See Instructions, ALY [place], # 30 tablet, 1 Refills, Maintenance, [id number], 175, cm, 02/26/20 14:11:00 EDT, Height, 87.5, kg, 02/26/20 14:11:00 EDT, Dry Weight Start Date: 04/12/20 Status: Ordered atorvastatin 80 mg oral tablet 1 tablet = 80 mg, By Mouth, Daily, # 30 tablet, 0 Refills, Maintenance, Tablet, Route to Pharmacy Electronically, [id number], [facility] Start Date: 04/02/18 Stop Date: [...] 0 Refills, Maintenance, 10/22/20 8:48:00 EST, Gel, [facility]/pharmacy #[id number], Partial fill upon patient [...] 10/22/20 8:48:00 EST, Route to Pharmacy Electronically, [facility]/pharmacy #[id number], Partial fill upon patient [...] 0 Refills, Maintenance, 03/17/21 6:56:00 EDT, Film, [facility]/pharmacy #[id number], Partial fill upon patient [...] 0 Refills, Maintenance, 10/29/20 9:13:00 EST, Tablet, [facility]/pharmacy #[id number], Partial fill upon patient request if the prescription is for a schedule II opioid drug., 175, cm, 10/28/20 10:07:00 EST, Height, 8... 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 Hematoma of leg(Confirmed) Active HIV disease(Confirmed) 2002 Active Hypercholesterolemia(Confirmed) 2005 Active HLD (hyperlipidemia)(Confirmed) Active HTN (hypertension)(Confirmed) Active Hypothyroidism(Confirmed) Active Skin infection(Confirmed) Active PVD (peripheral vascular disease)(Confirmed) Active 1sequelae, left sided weakness Vital Signs Most recent to oldest [Reference Range]: 1 2 3 Oxygen Saturation [94-100 %] 99 % (05/25/21 6:20 PM) 100 % (05/25/21 12:53 PM) 98 % (05/25/21 12:14 PM) Pulse Rate [55-90 bpm] 95 bpm *H* (05/25/21 6:20 PM) 92 bpm *H* (05/25/21 12:53 PM) 70 bpm (05/25/21 12:14 PM) Blood Pressure [90-138/55-84 mm Hg] 119/75mm Hg (05/25/21 6:20 PM) 125/82mm Hg (05/25/21 12:53 PM) Respiratory Rate [16-30 br/min] 20 br/min (05/25/21 6:20 PM) 18 br/min (05/25/21 12:53 PM) Temperature [96.8-100.4 DegF] 98.6 DegF (05/25/21 6:20 PM) 98.1 DegF (05/25/21 12:53 PM) Mode of Delivery (Oxygen) Room air (05/25/21 6:20 PM) Room air (05/25/21 12:53 PM) Room air (05/25/21 12:14 PM) Blood pressure sites Arm, right (05/25/21 12:53 PM) Temperature Route Oral (05/25/21 6:20 PM) Oral (05/25/21 12:53 PM) Social History Social History Type Response Smoking Status Former smoker; Tobac co user in household: No; Type: Cigarettes; Other: quit in july 2016; Tobacco use times per day: half pack per day; Started at age: 11; entered on: 05/29/18 Sex
--- OUTSIDE RECORDS SUMMARY | 2023-02-21 14:50 | XMS_ITS | Continuity of Care Document ---
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 Role Phone Thomas Bright Primary Care Physician [place] [facility] [place] 05/11/[address] [address] Encounter Diagnosis DVT of popliteal vein(Final) - 05/10/22 Discharge Disposition: A-D/C Home Attending Physician: Constantine Hogan MD Admitting Physician: Yuan Rose MD Referring Physician: Not on Staff, Referring MD Allergies, Adverse Reactions, Alerts Substance Reaction Severity Status Lamictal Hives, itch Active Tegretol Hallucinations, aggression A ctive Tylenol itching Active Lobster Persistent Severe Active Percocet 7.5/325 1 C/O: itching Active influenza virus vaccine, inactivated 2 Active traMADol Active oxyCODONE Persistent Mild Active 1makes pt itchy 2Hx of Guillain - P[place]est[place] Immunizations Given and Recorded Vaccine Date Status Refusal Reason pneumococcal 23-valent vaccine 02/03/17 Given Not Given Vaccine Date Status Refusal Reason pneumococcal 23-valent vaccine 01/25/17 Not Given Patient Refuses Medications atorvastatin 80 mg oral tablet 1 tablet = 80 mg, By Mouth, Daily at bedtime, # 30 tablet, 0 Refills, Maintenance, Tablet, Route toPharmacy Electronically, [id number], [facility] Start Date: [...] drug. Start Date: 10/12/20 Status: Ordered Lovenox 120 mg/0.8 mL injectable solution = 130 mg, Subcutaneous Injection, Daily, for 7 days, *Note: Treatment = 1.5mg/kg/day, renal dosing = 1mg/kg/day*, # 1 Unknown, 0 Refills, Acute 05/18/22 11:08:00 EDT, 05/11/22 11:08:00 EDT, [facility]/pharmacy #[id number], Partial fill upon patient request if the... Start Date: 05/11/22 Stop Date: 05/18/22 Status: Ordered MorPHINE Inj 4 mg, Injection, IV Push Slowly, Every 3 hours for 7 days, PRN for Pain , Moderate, Routine, 05/09/22 15:19:00 EDT, Stop date 05/16/22 15:18:00 EDT Start Date: 05/09/22 Stop Date: 05/12/22 Status: Discontinued ondansetron 4 mg oral tablet, disintegrating 1 tablet = 4 mg, By Mouth, Every 8 hours, PRN as needed for nausea/vomiting, # 10 tablet, 0 Refills, Maintenance, 10/15/21 21:12:00 EST, DIS Tablet, [facility]/pharmacy #[id number], Partial fill upon [...] Tablet Start Date: 10/29/18 Status: Ordered warfarin 6 mg oral tablet 1 tablet = 6 mg, By Mouth, Daily, # 7 tablet, 0 Refills, Maintenance, 05/11/22 11:10:00 EDT, Tablet, [facility]/pharmacy #[id number], Partial fill upon patient request if the prescription is for a schedule II opioid drug., 175, cm, 05/11/22 8:03:00 EDT, Height, 86... 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 Hematoma of leg(Confirmed) Active HIV disease(Confirmed) 2002 Active HLD (hyperlipidemia)(Confirmed) Active HTN (hypertension)(Confirmed) Active Hypothyroidism(Confirmed) Active Skin infection(Confirmed) Active PVD (peripheral vascular disease)(Confirmed) Active 1sequelae, left sided weakness Results Radiology Reports * Exam Date Time Procedure Performing Provider Status 05/09/22 3:07 PM Chest 2 Views Frontal and Lat Mayank Pedroza; Auth (Verified) Notes: (Chest 2 Views Frontal and Lat) Reason For Exam: Chest Pain;Other: RESULT: Chest 2 Views Frontal and Lat Chest 2 Views Frontal and Lat INDICATION: Chest pain and dizziness COMPARISON: Yesterday FINDINGS: LINES AND TUBES: None. LUNGS AND PLEURA: Clear lungs. Normal pulmonary vascularity. No pleural effusion. No pneumothorax. HEART, MEDIASTINUM AND [place]: Heart is normal in size. Normal upper mediastinal and hilar contour. BONES AND SOFT TISSUES: No acute abnormality. IMPRESSION: No acute abnormality. WSN: [id number] Ordering Physician: Dung Pichardo MD Dictated By: Chevy Long MD Dictated Date/Time: 05/09/22 3:16 pm Reviewed By: Chevy Long MD Signed By: Chevy Long MD Signed Date/Time: 05/09/22 3:16 pm Transcribed By: LOGAN Transcribed Date/Time: 05/09/22 3:15 pm Vital Signs Most recent to oldest [Reference Range]: 1 2 3 Height 175 cm (05/11/22 8:03 AM) 175 cm (05/11/22 3:29 AM) 175 cm (05/10/22 11:34 PM) Weight 86 kg (05/10/22 2:15 AM) 84 kg (05/09/22 1:09 PM) Oxygen Saturation [94-100 %] 98 % (05/11/22 8:03 AM) 98 % (05/11/22 3:29 AM) 98 % (05/10/22 11:34 PM) Pulse Rate [55-90 bpm] 64 bpm (05/11/22 8:03 AM) 65 bpm (05/11/22 3:29 AM) 79 bpm (05/10/22 11:34 PM) Body Mass Index [18.5-24.99] 28.08 *H* (05/10/22 2:15 AM) Blood Pressure [90-138/55-84 mm Hg] 99/69mm Hg (05/11/22 8:03 AM) 101/70mm Hg (05/11/22 3:29 AM) 106/69mm Hg (05/10/22 11:34 PM) Respiratory Rate [16-30 br/min] 17 br/min (05/11/22 8:43 AM) 17 br/min (05/11/22 8:03 AM) 17 br/min (05/11/22 4:01 AM) Temperature [96.8-100.4 DegF] 97.9 DegF (05/11/22 8:03 AM) 97.7 DegF (05/11/22 3:29 AM) 97.8 DegF (05/10/22 11:34 PM) Mode of Delivery (Oxygen) Room air (05/11/22 8:03 AM) Room air (05/11/22 3:29 AM) Room air (05/10/22 11:34 PM) Blood pressure sites Arm, right (05/11/22 8:03 AM) Arm, right (05/11/22 3:29 AM) Arm, right (05/10/22 11:34 PM) Temperature Route Oral (05/11/22 8:03 AM) Oral (05/11/22 3:29 AM) Oral (05/10/22 11:34 PM) Dry Weight 86 kg (05/10/22 2:15 AM) 84 kg (05/09/22 1:09 PM) Social History Social History Type Response Smoking Status Never (less than 100 in lifetime) entered on: 10/25/21 Sex Note * [employer] , 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 LUNGS AND PLEURA: Clear lungs. Normal pulmonary vascularity. No pleural effusion. No pneumothorax. HEART, MEDIASTINUM AND [place]: Heart is normal in size. Normal upper mediastinal and hilar contour. BONES AND SOFT TISSUES: No acute abnormality. IMPRESSION: No acute abnormality. WSN: [id number] Ordering Physician: Dung Pichardo MD Dictated By: Chevy Long MD Dictated Date/Time: 05/09/22 3:16 pm Reviewed By: Chevy Long MD Signed By: Chevy Long MD Signed Date/Time: 05/09/22 3:16 pm Transcribed By: LOGAN Transcribed Date/Time: 05/09/22 3:15 pm Care Team Personnel Name: Thomas Bright Address: [address] [place] [address]
--- OUTSIDE RECORDS SUMMARY | 2023-02-21 14:50 | XMS_ITS | Continuity of Care Document ---
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 Role Phone Thomas Bright Primary Care Physician [phone] En[place] [facility] [place] Date(s[place] 10/18/20 - 10/18/[address] [address]- Encounter Diagnosis Bilateral leg pain(Final) - 10/18/20 Discharge Disposition: A-D/C Home Attending Physician: Ana Gore DO Admitting Physician: Ana Gore DO Referring Physician: Not on Staff, Referring MD Allergies, Adverse Reactions, Alerts Substance Reaction Severity Status Lamictal Hives, itch Active Tegretol Hallucinations, aggression A ctive oxyCODONE Persistent Mild Active Tylenol itching Active Lobster Persistent Severe Active Percocet 7.5/325 1 C/O: itching Active influenza virus vaccine, inactivated 2 Active traMADol Active 1makes pt itchy 2Hx of Guillain - [place] Immunizations Given and Recorded Vaccine Date Status Refusal Reason pneumococcal 23-valent vaccine 02/03/17 Given Not Given Vaccine Date Status Refusal Reason pneumococcal 23-valent vaccine 01/25/17 Not Given Patient Refuses Medications aspirin 81 mg oral delayed release tablet See Instructions, ALY GOINSA [place], # 30 tablet, 1 Refills, Maintenance, [id number], 175, cm, 02/26/20 14:11:00 EDT, Height, 87.5, kg, 02/26/20 14:11:00 EDT, Dry Weight Start Date: 04/12/20 Status: Ordered atorvastatin 80 mg oral tablet 1 tablet = 80 mg, By Mouth, Daily, # 30 tablet, 0 Refills, Maintenance, Tablet, Route to Pharmacy Electronically, [id number], [facility] Start Date: [...] drug. Start Date: 10/12/20 Status: Ordered MorPHINE Immediate Release Tablet 15 mg, Tablet, By Mouth, Once, STAT, 10/18/20 17:58:00 EST, Stop date 10/18/20 17:58:00 EST Start Date: 10/18/20 Stop Date: 10/18/20 Status: Completed pantoprazole 40 mg oral delayed [...] 0 Refills, Maintenance, 10/14/20 13:07:00 EST, Tablet, [facility]/pharmacy #[id number], Partial fill upon patient request if the prescription is for a schedule II opioid drug., 175, cm, 10/14/20 4:14:00 EST, Height, 9... 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 Hematoma of leg(Confirmed) Active HIV disease(Confirmed) 2002 Active Hypercholesterolemia(Confirmed) 2006 Active HLD (hyperlipidemia)(Confirmed) Active HTN (hypertension)(Confirmed) Active Hypothyroidism(Confirmed) Active Skin infection(Confirmed) Active PVD (peripheral vascular disease)(Confirmed) Active 1sequelae, left sided weakness Vital Signs Most recent to oldest [Reference Range]: 1 2 3 Oxygen Saturation [94-100 %] 96 % (10/18/20 9:19 PM) 98 % (10/18/20 5:08 PM) 100 % (10/18/20 3:19 PM) Pulse Rate [55-90 bpm] 98 bpm *H* (10/18/20 9:19 PM) 98 bpm *H* (10/18/20 5:08 PM) 109 bpm *H* (10/18/20 3:19 PM) Blood Pressure [90-138/55-84 mm Hg] 109/67mm Hg (10/18/20 9:19 PM) 130/81mm Hg (10/18/20 5:08 PM) 126/83mm Hg (10/18/20 3:19 PM) Respiratory Rate [16-30 br/min] 18 br/min (10/18/20 9:19 PM) 18 br/min (10/18/20 6:00 PM) 18 br/min (10/18/20 5:08 PM) Temperature [96.8-100.4 DegF] 98.4 DegF (10/18/20 9:19 PM) 98.1 DegF (10/18/20 5:08 PM) 98.1 DegF (10/18/20 3:19 PM) Mode of Delivery (Oxygen) Room air (10/18/20 9:19 PM) Room air (10/18/20 5:08 PM) Room air (10/18/20 3:19 PM) Blood pressure sites Arm, right (10/18/20 9:19 PM) Arm, left (10/18/20 5:08 PM) Arm, left (10/18/20 3:19 PM) Temperature Route Oral (10/18/20 9:19 PM) Oral (10/18/20 5:08 PM) Oral (10/18/20 3:19 PM) Social History Social History Type Response Smoking Status Former smoker; Tobac co user in household: No; Type: Cigarettes; Other: quit in july 2016; Tobacco use times per day: half pack per day; Started at age: 11; entered on: 05/29/18 Sex
--- OUTSIDE RECORDS SUMMARY | 2023-02-21 14:50 | XMS_ITS | Continuity of Care Document ---
Author Name Unknown Organization [facility] ter Address [address] [place] [phone]- Care Team Providers Care Manager Fine Name Role Phone Thomsa Bright Primary Care Physician [phone] [place] [facility] [place] 12/22/[address] [address]- [facility] Encounter Diagnosis Abdominal pain(Final) - 12/22/19 Discharge Disposition: A-D/C Home Attending Physician: Amy Dominguez DO Admitting Physician: Amy Dominguez DO Referring Physician: Not on Staff, Referring MD Allergies, Adverse Reactions, Alerts Substance Reaction Severity Status Lamictal Hives, itch Active Tegretol Hallucinations, aggression A ctive Tylenol itching Active Lobster Persistent Severe Active Percocet 7.5/325 1 C/O: itching Active influenza virus vaccine, inactivated 2 Active traMADol Active oxyCODONE Persistent Mild Active 1makes pt itchy 2Hx of Guillain - [place] Immunizations Given and Recorded Vaccine Date Status Refusal Reason pneumococcal 23-valent vaccine 02/03/17 Given Not Given Vaccine Date Status Refusal Reason pneumococcal 23-valent vaccine 01/25/17 Not Given Patient Refuses Medications atorvastatin 80 mg oral tablet 1 tablet = 80 mg, By Mouth, Daily, # 30 tablet, 0 Refills, Maintenance, Tablet, Route to Pharmacy Electronically, [id number], [facility] Start Date: 04/02/18 Stop [...] 0 Refills,Maintenance, 10/14/19 23:05:00 EST, DIS Tablet, [facility]/pharmacy #[id number], 175, cm, 09/12/19 10:20:00 [...] ant GERD (gastroesophageal reflu x disease)(Confirmed) Active 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 Hematoma of leg(Confirmed) Active HIV disease(Confirmed) 2003 Active Hypercholesterolemia(Confirmed) 2006 Active HLD (hyperlipidemia)(Confirmed) Active HTN (hypertension)(Confirmed) Active Hypothyroidism(Confirmed) Active Skin infection(Confirmed) Active PVD (peripheral vascular disease)(Confirmed) Active 1sequelae, left sided weakness Results Radiology Reports * Exam Date Time Procedure Performing Provider Status 12/22/19 3:28 PM Chest Portable Palak Jasso; Aut h (Verified) Notes: (Chest Portable) Reason For Exam: Shortness of Breath RESULT: Chest Portable Chest Portable INDICATION: Cough, dyspnea. No leukocytosis or fever. History of HIV. COMPARISON: CTA chest 09/26/2019; chest x-ray 09/26/2019 FINDINGS: LINES AND TUBES: None. LUNGS AND PLEURA: Minimal linear density in the right lower lung likely representing atelectasis. Otherwise, clear lungs. Normal pulmonary vascularity. No pleural effusion. No pneumothorax. HEART, MEDIASTINUM AND [place]: Heart is normal in size. Normal mediastinal and hilar contour. BONES AND SOFT TISSUES: No acute abnormality. IMPRESSION: No acute abnormality. I have personally reviewed the images and I agree with this report. WSN: [id number] Ordering Physician: Jerman Tejada Dictated By: Beck Loco DO Dictated Date/Time: 12/22/19 3:45 pm Reviewed By: Maame Hill MD Signed By: Maame Hill MD Signed Date/Time: 12/22/19 3:50 pm Transcribed By: LOGAN Transcribed Date/Time: 12/22/19 3:32 pm Vital Signs Most recent to oldest [Reference Range]: 1 2 3 Oxygen Saturation [94-100 %] 99 % (12/22/19 6:14 PM) 96 % (12/22/19 4:18 PM) 99 % (12/22/19 2:09 PM) Pulse Rate [55-90 bpm] 67 bpm (12/22/19 6:14 PM) 74 bpm (12/22/19 4:18 PM) 87 bpm (12/22/19 2:09 PM) Blood Pressure [90-138/55-84 mm Hg] 163/74mm Hg *H* (12/22/19 6:14 PM) 90/67mm Hg (12/22/19 4:18 PM) 111/88mm Hg (12/22/19 2:09 PM) Respiratory Rate [16-30 br/min] 18 br/min (12/22/19 8:36 PM) 16 br/min (12/22/19 6:14 PM) 15 br/min *L* (12/22/19 4:18 PM) Temperature [96.8-100.4 DegF] 98 DegF (12/22/19 2:09 PM) 98.4 DegF (12/22/19 1:05 PM) Mode of Delivery (Oxygen) Room air (12/22/19 6:14 PM) Room air (12/22/19 4:18 PM) Room air (12/22/19 2:09 PM) Blood pressure sites Arm, left (12/22/19 6:14 PM) Arm, left (12/22/19 2:09 PM) Arm, left (12/22/19 1:05 PM) Temperature Route Oral (12/22/19 2:09 PM) Oral (12/22/19 1:05 PM) Social History Social History Type Response Smoking Status Former smoker; Tobac co user in household: No; Type: Cigarettes; Other: quit in july 2016; Tobacco use times per day: half pack per day; Started at age: 11; entered on: 05/29/18 Sex
--- OUTSIDE RECORDS SUMMARY | 2023-02-21 14:50 | XMS_ITS | Continuity of Care Document ---
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 Role Phone Thomas Bright Primary Care Physician [phone] Encounter [facility] [place] Date(s): 06/03/22 - 07/03/[address] [address] Referring Physician: Arnaldo Osman Allergies, Adverse Reactions, Alerts Substance Reaction Severity Status Lamictal Hives, itch Active Tegretol Hallucinations, aggression A ctive Tylenol itching Active Lobster Persistent Severe Active Percocet 7.5/325 1 C/O: itching Active influenza virus vaccine, inactivated 2 Active traMADol Active oxyCODONE Persistent Mild Active 1makes pt itchy 2Hx of Guillain - Tahoma Immunizations Given and Recorded Vaccine Date Status Refusal Reason pneumococcal 23-valent vaccine 02/03/17 Given Not Given Vaccine Date Status Refusal Reason pneumococcal 23-valent vaccine 01/25/17 Not Given Patient Refuses Medications atorvastatin 80 mg oral tablet 1 tablet = 80 mg, By Mouth, Daily at bedtime, # 30 tablet, 0 Refills, Maintenance, Tablet, Route toPharmacy Electronically, [id number], [facility] 3 Start Date: 04/02/18 [...] 1 Refills, Maintenance, 05/20/22 14:26:00 EDT, Tablet, [facility]/pharmacy #[id number], Partialfill upon patient request if [...] Active GERD (gastroesophageal reflux disease) Confirmed Active Guillain-Tahoma syndrome 1 Confirmed Active Hematoma of leg [...] S Outreach Member Role: PCP Address: Address: [address] [place] [address] Name: Karmen Mandujano RN Position: [facility] Rad RN Member Role: Primary Care Nurse Name: Margie Castanon RN Position: [facility] RN Member Role: Primary Care Nurse Name: Shahbaz Castaneda RN Position: [facility] RN Member Role: Primary Care Nurse Name: Justin Dailey MD Position: [facility] Infectious Disease MD Member Role: Lifetime Consulting Physician Address: Address: [address] [place] [address] [place] [address]- Name: Veronica Davila RN Position: [facility] RN Member Role: Primary Care Nurse Name: Melav Herndon RN Position: [facility] RN Member Role: Primary Care Nurse Name: Karena Penaloza RN Position: [facility] RN Member Role: Primary Care Nurse Name: Fang Adams RN Position: [facility] [employer] Labor Member Role: Primary Care Nurse Name: Karri Jaarmillo RN Position: [facility] RN Member Role: Primary Care Nurse Name: Consuelo Alvarenga RN Position: [facility] RN Member Role: Primary Care Nurse Name: Veronica Blanco RN Position: [facility] PCO RN Member Role: Primary Care Nurse Name: Ramsey Perez RN Position: [facility] RN Member Role: Primary Care Nurse Name: Lazaro Huffman RN Position: [facility] RN Member Role: Primary Care Nurse Name: Jacquelyn Juarez Position: [facility] RN Member Role: Primary Care Nurse Name: Jacquelyn Ramsey RN Position: [facility] RN Member Role: Primary Care Nurse Name: Jennifer Ghosh RN Position: [facility] RN Member Role: Primary Care Nurse Name: Qiana Mansfield RN Position: [facility] RN Member Role: Primary Care Nurse Name: Chuyita Ashley RN Position: [facility] RN Member Role: Primary Care Nurse Name: Elle Blackwood RN Position: [facility] [employer] Labor Member Role: Primary Care Nurse Name: Yamilex Arteaga RN Position: [facility] RN Member Role: Primary Care Nurse Name: Skip Harry RN Position: [facility] RN Member Role: Primary Care Nurse Name: Valentine Perrin RN Position: [facility] RN Member Role: Primary Care Nurse Name: Mark Howell RN Position: [facility] RN Member Role: Primary Care Nurse Name: Elaine Webb RN Position: [facility] RN Member Role: Primary Care Nurse Name: Stephanie Houser RN Position: [facility] RN Member Role: Primary Care Nurse Name: Amber Gu RN Position: [facility] RN Member Role: Primary Care Nurse Name: Reji Zimmerman Jr Position: [facility] ED RN W/OE and Tasks Member Role: Primary Care Nurse Name: Dang Padilla RN Position: [facility] RN Member Role: Primary Care Nurse Name: Scot Anderson RN Position: [facility] RN Member Role: Primary Care Nurse Name: Luz Marina Byrd RN Position: [facility] RN Member Role: Primary Care Nurse Name: Joelle Sandoval RN Position: [facility] RN Member Role: Primary Care Nurse Name: iGdeon Diaz RN Position: [facility] RN Member Role: Primary Care Nurse Name: Diana Anderson RN Position: [facility] RN Member Role: Primary Care Nurse Name: Thomas Betancur RN Position: [facility] RN Member Role: Primary Care Nurse Name: Vee Mcnamara RN Position: [facility] [employer] Labor Member Role: Primary Care Nurse Name: Nisreen Greenberg RN Position: [facility] Outreach Member Role: Primary Care Nurse Name: Lanny Bolton RN Position: [facility] RN Member Role: Primary Care Nurse Name: Anthony Carolina RN Position: [facility] RN Member Role: Primary Care Nurse Name: Ana Dupont RN Position: [facility] RN Member Role: Primary Care Nurse Name: Alyssia Durbin RN Position: [facility] RN Member Role: Primary Care Nurse Name: Afshan Galeano RN Position: [facility] SN RN Member Role: Primary Care Nurse Name: Reji Bright RN Position: [facility] RN Member Role: Primary Care Nurse Name: Estefanía Austin RN Position: [facility] RN Member Role: Primary Care Nurse Name: Sarah Carson RN Position: [facility] RN Member Role: Primary Care Nurse Name: Amira Hughes RN Position: [facility] RN Member Role: Primary Care Nurse Name: Chiquis Callejas RN Position: [facility] Onco RN Member Role: Primary Care Nurse Name: Linda Rajput RN, I Position: [facility] RN Member Role: Primary Care Nurse Care Team Related Persons Name: SHAHBAZ MEADOWS Address: [address] [place] [address] Name: YOANDY TAYLOR Address: home [address] [place] [address]
--- OUTSIDE RECORDS SUMMARY | 2023-02-21 14:50 | XMS_ITS | Continuity of Care Document ---
Author Name Unknown Organization [facility] ter Address [address] [place] [address]- Care Team Providers Care Soaking Room Operator Name Role Phone Thomas Bright Primary Care Physician [phone] [place] [facility] [place] 01/16/20 - 01/16/[address] [address]- [facility] Discharge Disposition: A-D/C Walkout Attending Physician: [...] 1makes pt itchy 2Hx of Guillain - [place] Immunizations Given and Recorded Vaccine Date Status Refusal Reason pneumococcal 23-valent vaccine 02/03/17 Given Not Given Vaccine Date Status Refusal Reason pneumococcal 23-valent vaccine 01/25/17 Not Given Patient Refuses Medications atorvastatin 80 mg oral tablet 1 tablet = 80 mg, By Mouth, Daily, # 30 tablet, 0 Refills, Maintenance, Tablet, Route to Pharmacy Electronically, [id number], [facility] Start Date: 04/02/18 Stop Date: 05/02/18 Status: Ordered famotidine 20 mg oral tablet 20 mg, 1, tablet, By Mouth, Daily, # 30 tablet, Refills 0, Tot. 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 Hematoma of leg(Confirmed) Active HIV disease(Confirmed) 2002 Active Hypercholesterolemia(Confirmed) 2006 Active HLD (hyperlipidemia)(Confirmed) Active HTN (hypertension)(Confirmed) Active Hypothyroidism(Confirmed) Active Skin infection(Confirmed) Active PVD (peripheral vascular disease)(Confirmed) Active 1sequelae, left sided weakness Vital Signs Most recent to oldest [Reference Range]: 1 2 Oxygen Saturation [94-100 %] 96 % (01/16/20 5:00 PM) 99 % (01/16/20 3:00 PM) Pulse Rate [55-90 bpm] 80 bpm (01/16/20 5:00 PM) 102 bpm *H* (01/16/20 3:00 PM) Blood Pressure [90-138/55-84 mm Hg] 110/ 67mm Hg (01/16/20 5:00 PM) Respiratory Rate [16-30 br/min] 18 br/mi n (01/16/20 5:00 PM) Temperature [96.8-100.4 DegF] 98.9 DegF (01/16/20 5:00 PM) Mode of Delivery (Oxygen) Room air (01/16/20 5:00 PM) Room air (01/16/20 3:00 PM) Blood pressure sites Leg, left (01/16/20 5:00 PM) Temperature Route Oral (01/16/20 5:00 PM) Social History Social History Type Response Smoking Status Former smoker; Tobac co user in household: No; Type: Cigarettes; Other: quit in july 2016; Tobacco use times per day: half pack per day; Started at age: 11; entered on: 05/29/18 Sex
--- OUTSIDE RECORDS SUMMARY | 2023-02-21 14:50 | XMS_ITS | Continuity of Care Document ---
Author Name Unknown Organization [facility] Address [address] [place] [address]- Care Team Providers Care Supervisor Firearms Name Role Phone Thomas Bright Primary Care Physician [place] [facility] [place] [id number] Date(s): 09/17/22 - 10/17/22 [facility] [address] [place], [place] [address] Attending Physician: Román Adams Admitting Physician: AdmRomán colón Referring Physician: AdmtrRomán Allergies, Adverse Reactions, Alerts Substance Reaction Severity Status Lamictal Hives, itch Active Tegretol Hallucinations, aggression A ctive oxyCODONE Persistent Mild Active Tylenol itching Active Lobster Persistent Severe Active Percocet 7.5/325 1 C/O: itching Active influenza virus vaccine, inactivated 2 Active traMADol Active 1makes pt itchy 2Hx of Guillain - [place] Immunizations Given and Recorded Vaccine Date Status Refusal Reason pneumococcal 23-valent vaccine 02/03/17 Given Not Given Vaccine Date Status Refusal Reason pneumococcal 23-valent vaccine 01/25/17 Not Given Patient Refuses Medications atorvastatin 80 mg oral tablet 1 tablet = 80 mg, By Mouth, Daily at bedtime, # 30 tablet, 0 Refills, Maintenance, Tablet, Route toPharmacy Electronically, [id number], [facility] 3 Start Date: 04/02/18 Stop Date: [...] Active GERD (gastroesophageal reflux disease) Confirmed Active Guillain-[place] syndrome 1 Confirmed Active Hematoma of leg Confirmed Active HIV disease Confirmed 2002 Active HLD (hyperlipidemia) Confirmed Active HTN (hypertension) Confirmed Active Hypothyroidism Confirmed Active Skin infection Confirmed Active PVD (peripheral vascular disease) Confirmed Active 1sequelae, left sided weakness Social History Social History Type Response Smoking Status Never (less than 100 in lifetime) entered on: 10/25/21 Sex Note * Event Display: Non Lab Results Authored Date: Patient Care team information Care Team Personnel Name: Joaquina Jerome RN Position: [facility] RN Member Role: Primary Care Nurse Name: Joselyn Sevilla RN Position: [facility] RN Member Role: Primary Care Nurse Name: Thomas Bright Position: [facility] Outreach Member Role: PCP Address: Address: [address] [place] [address] Name: Karmen Mandujano RN Position: [facility] Anjel RN Member Role: Primary Care Nurse Name: Margie Castanon RN Position: [facility] RN Member Role: Primary Care Nurse Name: Shahbaz Castaneda RN Position: S RN Member Role: Primary Care Nurse Name: Justin Dailey MD Position: [facility] Infectious Disease MD Member Role: Lifetime Consulting Physician Address: Address: [address] [place] [address] Infectious Disease [address] Name: Sophia Bell RN Position: [facility] RN Member Role: Primary Care Nurse Name: Veronica Davila RN Position: [facility] RN Member Role: Primary Care Nurse Name: Melva Herndon RN Position: [facility] RN Member Role: Primary Care Nurse Name: Karena Penaloza RN Position: [facility] RN Member Role: Primary Care Nurse Name: Fang Adams RN Position: [facility] Neonatal Social Worker Member Role: Primary Care Nurse Name: Karri Jaramillo RN Position: [facility] RN Member Role: Primary Care Nurse Name: Consuelo Alvarenga RN Position: [facility] RN Member Role: Primary Care Nurse Name: Veronica Blanco RN Position: [facility] DANIELLEO RN Member Role: Primary Care Nurse Name: Ramsey Perez RN Position: [facility] RN Member Role: Primary Care Nurse Name: Lazaro Huffman RN Position: [facility] RN Member Role: Primary Care Nurse Name: Jacquelyn Juarez Position: [facility] RN Member Role: Primary Care Nurse Name: Jacquelyn Ramsey RN Position: [facility] RN Member Role: Primary Care Nurse Name: Jennifer Ghosh RN Position: [facility] RN Member Role: Primary Care Nurse Name: Qiana Mansfield RN Position: [facility] RN Member Role: Primary Care Nurse Name: Chuyita Ashley RN Position: [facility] RN Member Role: Primary Care Nurse Name: Elle Blackwood RN Position: [facility] Neonatal Social Worker Member Role: Primary Care Nurse Name: Yamilex [...] Name: Gideon Diaz RN Position: [facility] RN Member Role: Primary Care Nurse Name: Diana Anderson RN Position: [facility] RN Member Role: Primary Care Nurse Name: Thomas Betancur RN Position: [facility] RN Member Role: Primary Care Nurse Name: Vee Mcnamara RN Position: [facility] Neonatal Social Worker Member Role: Primary Care Nurse Name: Nisreen [...] Persons Name: SHAHBAZ MEADOWS Address: [address] [place] [address] Name: TAYLORALANAR Address: home [address] [address]
--- OUTSIDE RECORDS SUMMARY | 2023-02-21 14:50 | XMS_ITS | Continuity of Care Document ---
Author Name Unknown Organization [facility] Address [address] [place] [address]- Care Team Providers Care Crystal Inspector Name Role Phone Thomas Bright Primary Care Physician [place] [facility] [place] Date(s[place] 11/14/20 - 11/14/[address] [address]- Discharge Disposition: A-D/C Home Attending Physician: Skip Cui MD Admitting Physician: Skip Cui MD Referring Physician: Not on Staff, Referring MD Allergies, Adverse Reactions, Alerts Substance Reaction Severity Status Lamictal Hives, itch Active Tegretol Hallucinations, aggression A ctive Tylenol itching Active Lobster Persistent Severe Active Percocet 7.5/325 1 C/O: itching Active influenza virus vaccine, inactivated 2 Active traMADol Active oxyCODONE Persistent Mild Active 1makes pt itchy 2Hx of Guillain - Devers Immunizations Given and Recorded Vaccine Date Status Refusal Reason pneumococcal 23-valent vaccine 02/03/17 Given Not Given Vaccine Date Status Refusal Reason pneumococcal 23-valent vaccine 01/25/17 Not Given Patient Refuses Medications aspirin 81 mg oral delayed release tablet See Instructions, [facility] [place], # 30 tablet, 1 Refills, Maintenance, [id number], 175, cm, 02/26/20 14:11:00 EDT, Height, 87.5, kg, 02/26/20 14:11:00 EDT, Dry Weight Start Date: 04/12/20 Status: Ordered atorvastatin 80 mg oral tablet 1 tablet = 80 mg, By Mouth, Daily, # 30 tablet, 0 Refills, Maintenance, Tablet, Route to Pharmacy Electronically, [id number], [facility] Start Date: 04/02/18 Stop [...] 0 Refills, Maintenance, 10/22/20 8:48:00 EST, Gel, [facility]/pharmacy #[id number], Partial fill upon patient request if [...] Moderate, and SBP greater than 100, Routine, 11/14/20 13:22:00 EDT, Stop date Limited # of times Start Date: 11/14/20 Stop Date: 11/15/20 Status: Discontinued pantoprazole 40 mg oral delayed [...] 0 Refills, Maintenance, 10/29/20 9:13:00 EST, Tablet, [facility]/pharmacy #[id number], Partial fill upon patient request if the prescription is for a schedule II opioid drug., 175, cm, 10/28/20 10:07:00 EST, Height, 8... Start Date: 10/29/20 Status: Ordered Problem List Condition Effective Dates Status Health Status Inform ant GERD (gastroesophageal reflu x disease)(Confirmed) Active Guillain-Devers syndrome(Confirmed) 1 Active Hematoma of leg(Confirmed) Active HIV disease(Confirmed) 2002 Active Hypercholesterolemia(Confirmed) 2005 Active HLD (hyperlipidemia)(Confirmed) Active HTN (hypertension)(Confirmed) Active Hypothyroidism(Confirmed) Active Skin infection(Confirmed) Active PVD (peripheral vascular disease)(Confirmed) Active 1sequelae, left sided weakness Vital Signs Most recent to oldest [Reference Range]: 1 2 3 Height 175 cm (11/14/20 1:42 PM) 175 cm (11/14/20 12:49 PM) Weight 84.9 kg (11/14/20 1:42 PM) 84.9 kg (11/14/20 12:49 PM) Oxygen Saturation [94-100 %] 99 % (11/14/20 5:44 PM) 100 % (11/14/20 12:49 PM) Pulse Rate [55-90 bpm] 82 bpm (11/14/20 5:44 PM) 91 bpm *H* (11/14/20 12:49 PM) Body Mass Index [18.5-24.99] 27.72 *H* (11/14/20 12:49 PM) Blood Pressure [90-138/55-84 mm Hg] 127/73mm Hg (11/14/20 5:44 PM) 107/74mm Hg (11/14/20 12:49 PM) Respiratory Rate [16-30 br/min] 18 br/min (11/14/20 5:44 PM) 8 br/min *L* (11/14/20 5:02 PM) 20 br/min (11/14/20 1:51 PM) Temperature [96.8-100.4 DegF] 98 DegF (11/14/20 5:44 PM) 98.5 DegF (11/14/20 12:49 PM) Mode of Delivery (Oxygen) Room air (11/14/20 5:44 PM) Room air (11/14/20 12:49 PM) Blood pressure sites Arm, left (11/14/20 5:44 PM) Arm, left (11/14/20 12:49 PM) Temperature Route Oral (11/14/20 5:44 PM) Oral (11/14/20 12:49 PM) Dry Weight 84.7 kg (11/14/20 1:42 PM) 84.7 kg (11/14/20 12:49 PM) Weight Obtained Via Patient/family state d (11/14/20 12:49 PM) Dry Weight Obtained Via Patient/family s tated (11/14/20 12:49 PM) Social History Social History Type Response Smoking Status Former smoker; Tobac co user in household: No; Type: Cigarettes; Other: quit in july 2016; Tobacco use times per day: half pack per day; Started at age: 11; entered on: 05/29/18 Sex
--- OUTSIDE RECORDS SUMMARY | 2023-02-21 14:50 | XMS_ITS | Continuity of Care Document ---
Author Name Unknown Organization [facility] Address [address] [place] [address]- Care Team Providers Care Comber Tender Name Role Phone Thomas Bright Primary Care Physician [phone] Encounter [facility] [place] Date(s): 04/08/22 - 04/09/[address] [address]- Discharge Disposition: A-D/C AMA Attending Physician: Becka [...] 1makes pt itchy 2Hx of Guillain - [place] Immunizations Given and Recorded Vaccine Date Status Refusal Reason pneumococcal 23-valent vaccine 02/03/17 Given Not Given Vaccine Date Status Refusal Reason pneumococcal 23-valent vaccine 01/25/17 Not Given Patient Refuses Medications atorvastatin 80 mg oral tablet 1 tablet = 80 mg, By Mouth, Daily, # 30 tablet, 0 Refills, Maintenance, Tablet, Route to Pharmacy Electronically, [id number], [facility] Start Date: 04/02/18 [...] Moderate, and SBP greater than 100, Routine, 04/08/22 15:30:00 EDT, Stop date Limited # of times Start Date: 04/08/22 Stop Date: 04/08/22 Status: Completed ondansetron 4 mg oral tablet, disintegrating 1 tablet = 4 mg, By Mouth, Every 8 hours, PRN as needed for nausea/vomiting, # 10 tablet, 0 Refills, Maintenance, 10/15/21 21:12:00 EST, DIS Tablet, [facility]/pharmacy #[id number], Partial fill upon patient request if the [...] Active GERD (gastroesophageal reflu x disease)(Confirmed) Active 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 Hematoma of leg(Confirmed) Active HIV disease(Confirmed) 2002 Active HLD (hyperlipidemia)(Confirmed) Active HTN (hypertension)(Confirmed) Active Hypothyroidism(Confirmed) Active Skin infection(Confirmed) Active PVD (peripheral vascular disease)(Confirmed) Active 1sequelae, left sided weakness Vital Signs Most recent to oldest [Reference Range]: 1 2 3 Height 176 cm (04/08/22 6:01 PM) 176 cm (04/08/22 3:21 PM) 176 cm (04/08/22 12:16 PM) Weight 87.8 kg (04/08/22 3:00 PM) Oxygen Saturation [94-100 %] 98 % (04/09/22 12:05 AM) 97 % (04/08/22 9:01 PM) 96 % (04/08/22 6:01 PM) Pulse Rate [55-90 bpm] 80 bpm (04/09/22 12:05 AM) 75 bpm (04/08/22 9:01 PM) 79 bpm (04/08/22 6:01 PM) Blood Pressure [90-138/55-84 mm Hg] 118/78mm Hg (04/09/22 12:05 AM) 124/86mm Hg (04/08/22 9:01 PM) 112/65mm Hg (04/08/22 6:01 PM) Respiratory Rate [16-30 br/min] 18 br/min (04/09/22 12:05 AM) 16 br/min (04/08/22 9:02 PM) 16 br/min (04/08/22 9:01 PM) Temperature [96.8-100.4 DegF] 98.2 DegF (04/09/22 12:05 AM) 98.1 DegF (04/08/22 9:01 PM) 97.8 DegF (04/08/22 6:01 PM) Mode of Delivery (Oxygen) Room air (04/09/22 12:05 AM) Room air (04/08/22 9:01 PM) Room air (04/08/22 6:01 PM) Blood pressure sites Arm, left (04/08/22 9:01 PM) Arm, left (04/08/22 6:01 PM) Arm, right (04/08/22 3:21 PM) Temperature Route Oral (04/09/22 12:05 AM) Oral (04/08/22 9:01 PM) Oral (04/08/22 6:01 PM) Social History Social History Type Response Smoking Status Never (less than 100 in lifetime) entered on: 10/25/21 Sex
--- OUTSIDE RECORDS SUMMARY | 2023-02-21 14:50 | XMS_ITS | Continuity of Care Document ---
Author Name Unknown Organization [facility] Address [address] [place] [id number]- Care Team Providers Care Personal Finance Instructor Name Role Phone Thomas Bright Primary Care Physician [phone] Encounter [facility] Date(s): 10/28/20 - 11/04/20 [facility] [address] [place] [address] Attending Physician: Angeline Membreno NP Admitting Physician: Angeline Membreno NP Referring Physician: Thomas Bright Allergies, Adverse Reactions, Alerts Substance Reaction Severity Status Lamictal Hives, itch Active Tegretol Hallucinations, aggression A ctive Tylenol itching Active traMADol Active oxyCODONE Persistent Mild Active Lobster Persistent Severe Active Percocet 7.5/325 1 C/O: itching Active influenza virus vaccine, inactivated 2 Active 1makes pt itchy 2Hx of Guillain - [place] Immunizations Given and Recorded Vaccine Date Status Refusal Reason pneumococcal 23-valent vaccine 02/03/17 Given Not Given Vaccine Date Status Refusal Reason pneumococcal 23-valent vaccine 01/25/17 Not Given Patient Refuses Medications aspirin 81 mg oral delayed release tablet See Instructions, ALY YORK, # 30 tablet, 1 Refills, Maintenance, [id number], 175, cm, 02/26/20 14:11:00 EDT, Height, 87.5, kg, 02/26/20 14:11:00 EDT, Dry Weight Start Date: 04/12/20 Status: Ordered atorvastatin 80 mg oral tablet 1 tablet = 80 mg, By Mouth, Daily, # 30 tablet, 0 Refills, Maintenance, Tablet, Route to Pharmacy Electronically, [id number], [facility] Start Date: 04/02/18 Stop [...] 0 Refills, Maintenance, 10/22/20 8:48:00 EST, Gel, [facility]/pharmacy #[id number], Partial fill upon patient [...] 0 Refills, Maintenance, 10/29/20 9:13:00 EST, Tablet, [facility]/pharmacy #[id number], Partial fill upon patient request if the prescription is for a schedule II opioid drug., 175, cm, 10/28/20 10:07:00 EST, Height, 8... 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 Hematoma of leg(Confirmed) Active HIV disease(Confirmed) 2003 Active Hypercholesterolemia(Confirmed) 2006 Active HLD (hyperlipidemia)(Confirmed) Active HTN (hypertension)(Confirmed) Active Hypothyroidism(Confirmed) Active Skin infection(Confirmed) Active PVD (peripheral vascular disease)(Confirmed) Active 1sequelae, left sided weakness Vital Signs Most recent to oldest [Reference Range]: 1 Height 175 cm (10/28/20 10:07 AM) Weight 88.90 kg (10/28/20 10:07 AM) Oxygen Saturation [94-100 %] 98 % (10/28/20 10:07 AM) Pulse Rate [55-90 bpm] 96 bpm *H* (10/28/20 10:07 AM) Body Mass Index [18.5-24.99] 29.03 *H* (10/28/20 10:07 AM) Blood Pressure [90-138/55-84 mm Hg] 90/6 8mm Hg (10/28/20 10:07 AM) Blood pressure sites Arm, right (10/28/20 10:07 AM) Social History Social History Type Response Smoking Status Former smoker; Tobac co user in household: No; Type: Cigarettes; Other: quit in july 2016; Tobacco use times per day: half pack per day; Started at age: 11; entered on: 05/29/18 Sex
--- OUTSIDE RECORDS SUMMARY | 2023-02-21 14:50 | XMS_ITS | Continuity of Care Document ---
Author Name Unknown Organization [facility] Address [address] [place] [address]- Care Team Providers Care Tire Design Engineer Name Role Phone Thomas Bright Primary Care Physician Encounter [facility] Date(s): 08/17/20 - 08/17/[address] [address]- Encounter Diagnosis Abdominal pain(Final) - 08/17/20 Discharge Disposition: A-D/C Home Attending Physician: Aileen Marques MD Admitting Physician: Shelli MG, Aileen Referring Physician: Not on Staff, Referring MD Allergies, Adverse Reactions, Alerts Substance Reaction Severity Status Lamictal Hives, itch Active Tegretol Hallucinations, aggression A ctive influenza virus vaccine, inactivated 1 Active traMADol Active oxyCODONE Persistent Mild Active Tylenol itching Active Lobster Persistent Severe Active Percocet 7.5/325 2 C/O: itching Active 1Hx of Guillain - [place] 2makes pt itchy Immunizations Given and Recorded Vaccine Date Status Refusal Reason pneumococcal 23-valent vaccine 02/03/17 Given Not Given Vaccine Date Status Refusal Reason pneumococcal 23-valent vaccine 01/25/17 Not Given Patient Refuses Medications aspirin 81 mg oral delayed release tablet See Instructions, ALY GOINSA TODOS LOS [place], # 30 tablet, 1 Refills, Maintenance, [id number], 175, cm, 02/26/20 14:11:00 EDT, Height, 87.5, kg, 02/26/20 14:11:00 EDT, Dry Weight Start Date: 04/12/20 Status: Ordered atorvastatin 80 mg oral tablet 1 tablet = 80 mg, By Mouth, Daily, # 30 tablet, 0 Refills, Maintenance, Tablet, Route to Pharmacy Electronically, [id number], [facility] Start Date: 04/02/18 [...] Supply Start Date: 04/06/20 Status: Ordered enoxaparin 120 mg/0.8 mL injectable solution = 120 mg, Subcutaneous Injection, Daily, for 21 days, *Note: Treatment = 1.5mg/kg/day, renal dosing= 1mg/kg/day*, # 21 each, 1 Refills, Acute 08/23/20 11:00:00 EST, 07/12/20 11:00:00 EST, Partial fill upon patient request Start Date: 07/12/20 Stop Date: 08/23/20 Status: Ordered famotidine 20 mg oral tablet [...] 07/30/17 8:20:04 Start Date: 07/30/17 Status: Ordered MorPHINE Inj 4 mg, Injection, IV Push Slowly, Once, STAT, 08/17/20 13:41:00 EST, Stop date 08/17/20 13:41:00 EST Start Date: 08/17/20 Stop Date: 08/17/20 Status: Completed ondansetron 4 mg oral tablet, disintegrating 1 tablet = 4 mg, By Mouth, Every 8 hours, PRN Nausea & Vomiting, # 10 tablet, 0 Refills, Maintenance, 06/21/20 19:42:00 EDT, Tablet, [facility]/pharmacy #[id number], 175, cm, 06/17/20 8:54:00 [...] ant GERD (gastroesophageal reflu x disease)(Confirmed) Active 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 Hematoma of leg(Confirmed) Active HIV disease(Confirmed) 2003 Active Hypercholesterolemia(Confirmed) 2006 Active HLD (hyperlipidemia)(Confirmed) Active HTN (hypertension)(Confirmed) Active Hypothyroidism(Confirmed) Active Skin infection(Confirmed) Active PVD (peripheral vascular disease)(Confirmed) Active 1sequelae, left sided weakness Results Radiology Reports * Exam Date Time Procedure Performing Provider Status 08/17/20 2:00 PM Chest Portable Alicia Castellano; Auth (Verified) Notes: (Chest Portable) Reason For Exam: Shortness of Breath RESULT: Chest Portable Chest Portable REASON: Shortness of Breath Hx of Present Illness: Left sided abd pain started on Sunday. Pain exacerbated by palp and movement. Denies N V D Dysuria. Patient is anticoagulated w Lovenox. COMPARISON: Chest radiograph 06/21/2020. CT angiogram chest 07/08/2020 FINDINGS: LINES AND TUBES: None. LUNGS AND PLEURA: Clear lungs. Normal pulmonary vascularity. No pleural effusion. No pneumothorax. HEART, MEDIASTINUM AND [place]: Heart is normal in size. Normal upper mediastinal and hilar contour. BONES AND SOFT TISSUES: No acute abnormality. IMPRESSION: No acute abnormality. I have personally reviewed the images and I agree with this report. WSN: [id number] Ordering Physician: Brenton Weaver Dictated By: Desmond Carballo DO Dictated Date/Time: 08/17/20 2:33 pm Reviewed By: Dada Paiz MD Signed By: Dada Paiz MD Signed Date/Time: 08/17/20 2:38 pm Transcribed By: LOGAN Transcribed Date/Time: 08/17/20 2:19 pm Vital Signs Most recent to oldest [Reference Range]: 1 2 3 Weight 88.5 kg (08/17/20 7:32 PM) 88.5 kg (08/17/20 3:33 PM) 88.5 kg (08/17/20 12:35 PM) Oxygen Saturation [94-100 %] 98 % (08/17/20 8:38 PM) 97 % (08/17/20 7:32 PM) 97 % (08/17/20 4:23 PM) Pulse Rate [55-90 bpm] 82 bpm (08/17/20 8:38 PM) 83 bpm (08/17/20 7:32 PM) 86 bpm (08/17/20 4:23 PM) Blood Pressure [90-138/55-84 mm Hg] 107/70mm Hg (08/17/20 8:38 PM) 107/74mm Hg (08/17/20 7:32 PM) 109/69mm Hg (08/17/20 4:23 PM) Respiratory Rate [16-30 br/min] 18 br/min (08/17/20 8:38 PM) 35 br/min *H* (08/17/20 7:32 PM) 20 br/min (08/17/20 6:48 PM) Temperature [96.8-100.4 DegF] 98.0 DegF (08/17/20 8:38 PM) 97.7 DegF (08/17/20 12:35 PM) Mode of Delivery (Oxygen) Room air (08/17/20 8:38 PM) Room air (08/17/20 7:32 PM) Room air (08/17/20 4:23 PM) Blood pressure sites Arm, right (08/17/20 8:38 PM) Arm, left (08/17/20 7:32 PM) Arm, right (08/17/20 4:23 PM) Temperature Route Oral (08/17/20 8:38 PM) Oral (08/17/20 12:35 PM) Dry Weight 88.5 kg (08/17/20 7:32 PM) 88.5 kg (08/17/20 3:33 PM) 88.5 kg (08/17/20 12:35 PM) Weight Obtained Via Standing scale (08/17/20 12:35 PM) Social History Social History Type Response Smoking Status Former smoker; Tobac co user in household: No; Type: Cigarettes; Other: quit in july 2016; Tobacco use times per day: half pack per day; Started at age: 11; entered on: 05/29/18 Sex
--- OUTSIDE RECORDS SUMMARY | 2023-02-21 14:50 | XMS_ITS | Continuity of Care Document ---
Author Name Unknown Organization [facility] Address [address] [place] [address]- Care Team Providers Care Neonatologist Name Role Phone Thomas Bright Primary Care Physician Encounter [facility] R [id number] Date(s): 09/17/22 - 11/20/22 [facility] [address] [place] [address]- Discharge Disposition: A-D/C Home Attending Physician: Jack So MD Admitting Physician: Vamsi MG, Carson Gonzales Referring Physician: Thomas Bright Allergies, Adverse Reactions, Alerts Substance Reaction Severity Status Lamictal Hives, itch Active Tegretol Hallucinations, aggression A ctive Tylenol itching Active oxyCODONE Persistent Mild Active Lobster Persistent Severe Active Percocet 7.5/325 1 C/O: itching Active influenza virus vaccine, inactivated 2 Active traMADol Active 1makes pt itchy 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 of Guillain - [place] Immunizations Given and Recorded Vaccine Date Status Refusal Reason pneumococcal 23-valent vaccine 02/03/17 Given Not Given Vaccine Date Status Refusal Reason pneumococcal 23-valent vaccine 01/25/17 Not Given Patient Refuses Medications atorvastatin 80 mg oral tablet 1 tablet = 80 mg, By Mouth, Daily at bedtime, # 30 tablet, 0 Refills, Maintenance, Tablet, Route toPharmacy Electronically, [id number], [facility] Start [...] Active GERD (gastroesophageal reflux disease) Confirmed Active 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 Hematoma of leg Confirmed Active HIV disease Confirmed 2002 Active HLD (hyperlipidemia) Confirmed Active HTN (hypertension) Confirmed Active Hypothyroidism Confirmed Active Skin infection Confirmed Active PVD (peripheral vascular disease) Confirmed Active 1sequelae, left sided weakness Vital Signs Most recent to oldest [Reference Range]: 1 Height 172.5 cm (09/20/22 11:05 AM) Weight 87.9 kg (09/20/22 11:05 AM) Oxygen Saturation [94-100 %] 98 % (09/20/22 11:05 AM) Pulse Rate [55-90 bpm] 92 bpm *H* (09/20/22 11:05 AM) Body Mass Index [18.5-24.99 kg/m2] 29.54 kg/m2 *H* (09/20/22 11:05 AM) Blood Pressure [90-138/55-84 mm Hg] 107/ 77mm Hg (09/20/22 11:05 AM) Temperature [96.8-100.4 DegF] 98.2 DegF (09/20/22 11:05 AM) Mode of Delivery (Oxygen) Room air (09/20/22 11:05 AM) Blood pressure sites Arm, right (09/20/22 11:05 AM) Temperature Route Temporal (09/20/22 11:05 AM) Dry Weight 87.9 kg (09/20/22 11:05 AM) Weight Obtained Via Standing scale (09/20/22 11:05 AM) Dry Weight Obtained Via Standing scale (09/20/22 11:05 AM) Social History Social History Type Response Smoking Status Never (less than 100 in lifetime) entered on: 10/25/21 Sex Patient Care team information Care Team Personnel Name: Joselyn Sevilla RN Position: [facility] RN Member Role: Primary Care Nurse Name: Thomas Bright Position: [facility] Outreach Member Role: PCP Address: Address: [address] [place] [address] Name: Karmen Mandujano RN Position: [facility] Rad RN Member Role: Primary Care Nurse Name: Margie Castanon RN Position: [facility] RN Member Role: Primary Care Nurse Name: Shahbaz Castaneda RN Position: [facility] RN Member Role: Primary Care Nurse Name: Justin Dailey MD Position: [facility] Infectious Disease MD Member Role: Lifetime Consulting Physician Address: Address: [address] [place] [address] Infectious [address] Name: Sophia Bell RN Position: [facility] RN Member Role: Primary Care Nurse Name: Veronica Davila RN Position: [facility] RN Member Role: Primary Care Nurse Name: Melva Herndon RN Position: [facility] RN Member Role: Primary Care Nurse Name: Karena Penaloza RN Position: [facility] RN Member Role: Primary Care Nurse Name: Fang Adams RN Position: [facility] Hospital Student Driving Instructor Member Role: Primary Care Nurse Name: Karri Jaramillo RN Position: [facility] RN Member Role: Primary Care Nurse Name: Consuelo Alvarenga RN Position: [facility] RN Member Role: Primary Care Nurse Name: Veronica Blanco RN Position: [facility] ABBEY RN Member Role: Primary Care Nurse Name: Ramsey Perez RN Position: [facility] RN Member Role: Primary Care Nurse Name: Lazaro Huffman RN Position: [facility] RN Member Role: Primary Care Nurse Name: Jacquelyn Juarez Position: [facility] RN Member Role: Primary Care Nurse Name: Jacquelyn Ramsey RN Position: [facility] RN Member Role: Primary Care Nurse Name: Jennifer Ghosh RN Position: [facility] RN Member Role: Primary Care Nurse Name: Qiana Mansfield RN Position: [facility] RN Member Role: Primary Care Nurse Name: Chuyita Ashley RN Position: [facility] RN Member Role: Primary Care Nurse Name: Elle Blackwood RN Position: [facility] Student Driving Instructor Member Role: Primary Care Nurse Name: Chandler RNYamilex Position: [facility] RN Member Role: Primary Care Nurse Name: Skip Harry RN Position: [facility] RN Member Role: Primary Care Nurse Name: Valentine Perrin RN Position: [facility] RN Member Role: Primary Care Nurse Name: Mark Howell RN Position: [facility] RN Member Role: Primary Care Nurse Name: Elaine Webb RN Position: [facility] RN Member Role: Primary Care Nurse Name: Stephanie Houser RN Position: [facility] RN Member Role: Primary Care Nurse Name: Amber Gu RN Position: [facility] RN Member Role: Primary Care Nurse Name: Reji Zimmerman Jr Position: [facility] ED RN W/OE and Tasks Member Role: Primary Care Nurse Name: Dang Padilla RN Position: [facility] RN Member Role: Primary Care Nurse Name: Scot Anderson RN Position: [facility] RN Member Role: Primary Care Nurse Name: Luz Marina Byrd RN Position: [facility] RN Member Role: Primary Care Nurse Name: Joelle Sandoval RN Position: [facility] RN Member Role: Primary Care Nurse Name: Gideon Diaz RN Position: [facility] Onco RN Member Role: Primary Care Nurse Name: Diana Anderson RN Position: [facility] RN Member Role: Primary Care Nurse Name: Thomas Betancur RN Position: [facility] RN Member Role: Primary Care Nurse Name: Vee Mcnamara RN Position: [facility] Student Driving Instructor Member Role: Primary Care Nurse Name: Nisreen Greenberg RN Position: [facility] Outreach Member Role: Primary Care Nurse Name: Lanny Bolton RN Position: [facility] RN Member Role: Primary Care Nurse Name: Anthony Carolina RN Position: [facility] RN Member Role: Primary Care Nurse Name: Ana Dupont RN Position: [facility] RN Member Role: Primary Care Nurse Name: Alyssia Durbin RN Position: [facility] RN Member Role: Primary Care Nurse Name: Afshan Galeano RN Position: [facility] RN Member Role: Primary Care Nurse Name: Reji Bright RN Position: [facility] RN Member Role: Primary Care Nurse Name: Estefanía Austin RN Position: [facility] RN Member Role: Primary Care Nurse Name: Sarah Carson RN Position: [facility] RN Member Role: Primary Care Nurse Name: Amira Hughes RN Position: [facility] RN Member Role: Primary Care Nurse Name: Rina Dunlap LPN Position: [facility] RN Member Role: Primary Care Nurse Name: Chiquis Callejas RN Position: [facility] Onco RN Member Role: Primary Care Nurse Name: Linda Rajput RN, I Position: [facility] RN Member Role: Primary Care Nurse Care Team Related Persons Name: SHAHBAZ MEADOWS Address: [address] [place] [address] Name: YOANDY TAYLOR Address: home [address] [address]
--- OUTSIDE RECORDS SUMMARY | 2023-02-21 14:50 | XMS_ITS | Continuity of Care Document ---
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 Name Role Phone Thomas Bright Primary Care Physician [phone] [place] [facility] [place](s): 09/27/22 - 09/28/[address] [address]- Discharge Disposition: A-D/C Home Attending Physician: Calvin Sterling MD Admitting Physician: Guy Tapia MD Referring Physician: Not on Staff, Referring MD Allergies, Adverse Reactions, Alerts Substance Reaction Severity Status Lamictal Hives, itch Active Tegretol Hallucinations, aggression A ctive Tylenol itching Active Lobster Persistent Severe Active Percocet 7.5/325 1 C/O: itching Active influenza virus vaccine, inactivated 2 Active traMADol Active oxyCODONE Persistent Mild Active 1makes pt itchy 2Hx of Guillain - [place] Immunizations Given and Recorded Vaccine Date Status Refusal Reason pneumococcal 23-valent vaccine 02/03/17 Given Not Given Vaccine Date Status Refusal Reason pneumococcal 23-valent vaccine 01/25/17 Not Given Patient Refuses Medications atorvastatin 80 mg oral tablet 1 tablet = 80 mg, By Mouth, Daily at bedtime, # 30 tablet, 0 Refills, Maintenance, Tablet, Route toPharmacy Electronically, [id number], [facility] Start Date: 04/02/18 [...] mg, By Mouth, Every 4 hours, PRN Pain , Moderate, # 50 mL, 0 Refills, Acute 10/03/22 17:25:00 EST, 09/28/22 17:24:00 EST, Solution, [facility], Partial fill upon patient request if the prescription is for a schedule II opioid... Start Date: 09/28/22 Stop Date: 10/03/22 Status: Ordered MorPHINE REGULAR STRENGTH 2 mg/mL Liquid 5 mg, Solution, By Mouth, Every 4 hours, PRN for Pain , Moderate, STAT, 09/26/22 17:34:00 EST Start Date: 09/26/22 Stop Date: 10/03/22 Status: Ordered ondansetron 4 mg oral tablet, disintegrating TAKE ONE TABLET BY MOUTH ONCE A DAY NEEDED FOR NAUSEA AND VOMITING Start Date: 09/11/22 Status: Ordered pantoprazole 40 mg oral delayed release tablet 1 tablet = 40 mg, By Mouth, Daily, take at a different time than famotidine, # 30 tablet, 0 Refills, Maintenance, 02/12/21 19:06:00 EDT, EC Tablet, 175, cm, 05/10/21 16:35:00 EDT, Height, 83, kg, 01/03/21 16:35:00 [...] Active GERD (gastroesophageal reflux disease) Confirmed Active 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 Hematoma of leg Confirmed Active HIV disease Confirmed 2002 Active HLD (hyperlipidemia) Confirmed Active HTN (hypertension) Confirmed Active Hypothyroidism Confirmed Active Skin infection Confirmed Active PVD (peripheral vascular disease) Confirmed Active 1sequelae, left sided weakness Results Orders for Microbiology Reports Name Date Urine Culture (URINE CULTURE) 09/26/22 Microbiology Reports TEST:Urine Culture STATUS:Auth (Verified) BODY SITE: SOURCE:URINE COLLECTED DATE/TIME:09/26/22 7:22 PM Urine Culture SPECIMEN DESCRIPTION : URINE SPECIAL REQUESTS : NONE CULTURE : NO GROWTH REPORT STATUS : FINAL 09/28/2022 Radiology Reports * Exam Date Time Procedure Performing Provider Status 09/27/22 7:38 PM US Doppler Ext Lower Venous Left Brit Wren; Auth (Verified) Notes: (US Doppler Ext Lower Venous Left) Reason For Exam: Pain/Tenderness Extremities RESULT: US Doppler Ext Lower Venous Left US Doppler Ext Lower Venous Left Reason: Pain Tenderness Extremities; Clinical Question(s): Thrombus COMPARISON: None IMAGING TECHNIQUE: Ultrasound of the veins from the groin through the calf was performed using grayscale, color, and spectral Doppler ultrasound assessing for complete compressibility and normal flowcharacteristics. FINDINGS: Common femoral vein: Patent. No thrombosis. Femoral vein: Nonocclusive thrombus throughout the femoral vein. Popliteal vein: Nonocclusive thrombus seen. Gastrocnemius veins: The visualized portions are patent without evidence of thrombosis. Peroneal veins: Nonocclusive thrombus in the peroneal veins. Posterior tibial veins: The visualized portions are patent without evidence of thrombosis. Contralateral common femoral vein: Patent. No thrombosis. OTHER FINDINGS: None. IMPRESSION: Apparent progression of nonocclusive thrombus in the left leg compared to 09/17/2022. A critical result message (Red) has been communicated via the [employer] on 09/27/2022 7:58 PM, Message ID [id number]. WSN: [id number] Ordering Physician: Calvin Sterling Dictated By: Dada Paiz MD Dictated Date/Time: 09/27/22 7:58 pm Reviewed By: Dada Paiz MD Signed By: Dada Paiz MD Signed Date/Time: 09/27/22 7:58 pm Transcribed By: LOGAN Transcribed Date/Time: 09/27/22 7:56 pm * Exam Date Time Procedure Performing Provider Status 09/26/22 7:[address] Angio Abdomen and Pelvis Amber Gallardo; Auth (Verified) Notes: (CT Angio Abdomen and Pelvis) Reason For Exam: AAA, surveillance;Other: RESULT: CT Angio Abdomen and Pelvis EXAMINATION: CT Angio Chest, CT Angio Abdomen and Pelvis INDICATION: Pt's significant other present via facetime, states he stood up and became dizzy and passed out , caught by significant other, no head strike. +LOC x5 minutes and became very tremulous after. Pt c o bilateral leg and abd pain. Hx of AAA, c o abd pain; Reason: Aortic disease, nontraumatic; Clinical Question(s): AAA TECHNIQUE: Spiral CTA of the chest, abdomen, and pelvis was performed after rapid IV contrast administration without cardiac gating triggered by an HOLLY on the aorta. Images are formatted in multiple planes using 2-D multiplanar and 3-D maximum intensity projection. 100 cc of Omnipaque 300 was administered intravenously. Weight-based protocol using automatic tube modulation was used to optimize exposure parameters. CTDIvol Body: 8.90 mGy, DLP Body: 580 mGy*cm. COMPARISONS: CT chest, abdomen and pelvis from 08/02/2022. ANGIOGRAPHIC FINDINGS: No aortic dissection or aneurysm. Normal three vessel arch without branch vessel stenosis. Pulmonary arteries are normal in caliber. No evidence of central pulmonary embolism on this study performed without dedicated technique. Abdominal aorta: No aortic aneurysm or dissection. There is a juxtarenal aortobiiliac stent in place. Excluded aorta is not aneurysmal and measures up to 2.2 cm in caliber. The upper end extends justabove the level of the superior mesenteric artery. Both limbs are patent and terminate just above the bifurcation of the common iliac arteries. Celiac axis: Patent. Superior mesenteric artery: One of the struts of the upper parts of the aortic stent minimally narrows the origin of the superior mesenteric artery. Right renal artery: Single right renal artery is normal. Left renal artery: Single left renal artery is likely narrowed at its origin, unchanged since the prior study. Inferior mesenteric artery: The origin is difficult to assess and is probably occluded. The remainder of the RAMANA is patent. Visualized iliac arteries: Common iliac arteries are patent with a stent graft. 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 Trachea and Airways: Patent without evidence of tracheal or endobronchial lesion. Lungs and Pleura: Clear lungs. Bilateral subcentimeter calcified granulomas. No effusion or pneumothorax. Mediastinum and bronson: No mass or hematoma. No mediastinal or hilar lymphadenopathy. No esophageal abnormality. Heart: Heart is normal in size. No pericardial effusion. Chest Wall Soft Tissues: Normal. Diaphragm and upper abdomen: No significant abnormality. Liver: Normal. Gallbladder: Absent consistent with prior cholecystectomy. Bile ducts: No biliary ductal dilation. Spleen: Normal in morphology and attenuation. Calcified subcentimeter granulomas in the parenchyma suggesting prior granulomatous disease. Pancreas: Mildly atrophic. Adrenal glands: Normal. Kidneys and ureters: No hydronephrosis, stones, or suspicious masses. Small focus of scarring in the right kidney lower pole. Bladder: Normal. Reproductive organs: There is fat stranding around the seminal vesicles and prostate gland. Stomach, small bowel, and large bowel: Visualized stomach and bowel are normal in caliber. No evidence of bowel obstruction. There is a rectosigmoid anastomosis without evidence of complication. Appendix: Not visualized. Peritoneum and retroperitoneum: No ascites or pneumoperitoneum. No omental or mesenteric lesions. Lymph nodes: No enlarged lymph nodes. Abdominal and pelvic wall: Small fat-containing umbilical hernia. There are subcutaneous injection granulomas and a few foci of gas. Bones: No acute abnormality. IMPRESSION: 1. No aortic aneurysm or dissection. Juxtarenal aorta biiliac stent in place without associated aneurysm. 2. Fat stranding around the seminal vesicles and prostate gland could indicate prostatitis. A critical result message ([place]) has been communicated via the [employer] system on 09/26/2022 8:26 PM, Message ID [id number]. I have personally reviewed the images and I agree with this report. WSN: [id number] Ordering Physician: Rosy Gotti Dictated By: Dmitry Dawn MD Dictated Date/Time: 09/26/22 8:26 pm Reviewed By: Nazanin Cadet MD Signed By: Naznain Cadet MD Signed Date/Time: 09/26/22 8:31 pm Transcribed By: LOGAN Transcribed Date/Time: 09/26/22 8:09 pm * Exam Date Time Procedure Performing Provider Status 09/26/22 7:[address] Angio Chest Eliseo Gallardo; Auth (V erified) Notes: (CT Angio Chest) Reason For Exam: Aortic disease, nontraumatic;Other: RESULT: CT Angio Chest EXAMINATION: CT Angio Chest, CT Angio Abdomen and Pelvis INDICATION: Pt's significant other present via facetime, states he stood up and became dizzy and passed out , caught by significant other, no head strike. +LOC x5 minutes and became very tremulous after. Pt c o bilateral leg and abd pain. Hx of AAA, c o abd pain; Reason: Aortic disease, nontraumatic; Clinical Question(s): AAA TECHNIQUE: Spiral CTA of the chest, abdomen, and pelvis was performed after rapid IV contrast administration without cardiac gating triggered by an HOLLY on the aorta. Images are formatted in multiple planes using 2-D multiplanar and 3-D maximum intensity projection. 100 cc of Omnipaque 300 was administered intravenously. Weight-based protocol using automatic tube modulation was used to optimize exposure parameters. CTDIvol Body: 8.90 mGy, DLP Body: 580 mGy*cm. COMPARISONS: CT chest, abdomen and pelvis from 08/02/2022. ANGIOGRAPHIC FINDINGS: No aortic dissection or aneurysm. Normal three vessel arch without branch vessel stenosis. Pulmonary arteries are normal in caliber. No evidence of central pulmonary embolism on this study performed without dedicated technique. Abdominal aorta: No aortic aneurysm or dissection. There is a juxtarenal aortobiiliac stent in place. Excluded aorta is not aneurysmal and measures up to 2.2 cm in caliber. The upper end extends justabove the level of the superior mesenteric artery. Both limbs are patent and terminate just above the bifurcation of the common iliac arteries. Celiac axis: Patent. Superior mesenteric artery: One of the struts of the upper parts of the aortic stent minimally narrows the origin of the superior mesenteric artery. Right renal artery: Single right renal artery is normal. Left renal artery: Single left renal artery is likely narrowed at its origin, unchanged since the prior study. Inferior mesenteric artery: The origin is difficult to assess and is probably occluded. The remainder of the RAMANA is patent. Visualized iliac arteries: Common iliac arteries are patent with a stent graft. 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 Trachea and Airways: Patent without evidence of tracheal or endobronchial lesion. Lungs and Pleura: Clear lungs. Bilateral subcentimeter calcified granulomas. No effusion or pneumothorax. Mediastinum and bronson: No mass or hematoma. No mediastinal or hilar lymphadenopathy. No esophageal abnormality. Heart: Heart is normal in size. No pericardial effusion. Chest Wall Soft Tissues: Normal. Diaphragm and upper abdomen: No significant abnormality. Liver: Normal. Gallbladder: Absent consistent with prior cholecystectomy. Bile ducts: No biliary ductal dilation. Spleen: Normal in morphology and attenuation. Calcified subcentimeter granulomas in the parenchyma suggesting prior granulomatous disease. Pancreas: Mildly atrophic. Adrenal glands: Normal. Kidneys and ureters: No hydronephrosis, stones, or suspicious masses. Small focus of scarring in the right kidney lower pole. Bladder: Normal. Reproductive organs: There is fat stranding around the seminal vesicles and prostate gland. Stomach, small bowel, and large bowel: Visualized stomach and bowel are normal in caliber. No evidence of bowel obstruction. There is a rectosigmoid anastomosis without evidence of complication. Appendix: Not visualized. Peritoneum and retroperitoneum: No ascites or pneumoperitoneum. No omental or mesenteric lesions. Lymph nodes: No enlarged lymph nodes. Abdominal and pelvic wall: Small fat-containing umbilical hernia. There are subcutaneous injection granulomas and a few foci of gas. Bones: No acute abnormality. IMPRESSION: 1. No aortic aneurysm or dissection. Juxtarenal aorta biiliac stent in place without associated aneurysm. 2. Fat stranding around the seminal vesicles and prostate gland could indicate prostatitis. A critical result message ([place]) has been communicated via the [employer] system on 09/26/2022 8:26 PM, Message ID [id number]. I have personally reviewed the images and I agree with this report. WSN: [id number] Ordering Physician: Rosy Gotti Dictated By: Dmitry Dawn MD Dictated Date/Time: 09/26/22 8:26 pm Reviewed By: Nazanin Cadet MD Signed By: Nazanin Cadet MD Signed Date/Time: 09/26/22 8:31 pm Transcribed By: LOGAN Transcribed Date/Time: 09/26/22 8:09 pm * Exam Date Time Procedure Performing Provider Status 09/26/22 4:[address] Head/Brain W/O Contrast Peter Chavez; Auth (Verified) Notes: (CT Head/Brain W/O Contrast) Reason For Exam: Seizure Disorder RESULT: CT Head/Brain W/O Contrast CT Head/Brain W/O Contrast INDICATION: Hx of Present Illness: Pts significant other present via facetime, states he stood up and became dizzy and passed out , caught by significant other, no head strike. +LOC x5 minutes and became very tremulous after. Pt c o bilateral leg and abd pain. Hx of AAA, c o abd pain; Reason: Seizure Disorder; Clinical Question(s): Hematoma; Order Comment: TECHNIQUE: Noncontrast head CT using axial technique and reconstructed in axial and coronal planes.Iterative reconstruction techniques are used to optimize dose and image quality. CTDIvol Head: 47.90 mGy, DLP Head: 773 mGy*cm. COMPARISON: 09/11/2022. FINDINGS: Plant Science Professor view findings, lines and tubes: None. BRAIN AND EXTRA-AXIAL SPACES: No parenchymal hemorrhage, midline shift, or mass effect. Suazo-white matter differentiation is wellpreserved. No acute infarct. Mild prominence of the ventricles and sulci consistent with parenchymal volume loss, more than expected for age. Mild low-density white matter changes. No subarachnoid hemorrhage. No subdural or epidural collection. CALVARIUM, SKULL BASE, AND SOFT TISSUES: No fractures or suspicious bony lesions. The paranasal sinuses and mastoid air cells are clear. Visualized orbits and globes are intact. The extracranial soft tissues are unremarkable. IMPRESSION: No acute intracranial pathology. WSN: [id number] Ordering Physician: Dung Pichardo MD Dictated By: Nazanin Cadet MD Dictated Date/Time: 09/26/22 5:10 pm Reviewed By: Nazanin Cadet MD Signed By: Nazanin Cadet MD Signed Date/Time: 09/26/22 5:10 pm Transcribed By: LOGAN Transcribed Date/Time: 09/26/22 5:07 pm * Exam Date Time Procedure Performing Provider Status 09/26/22 3:43 PM Chest 2 Views Frontal and Lat Alicia Castellano; Emeli (Verified) Notes: (Chest 2 Views Frontal and Lat) Reason For Exam: Chest Pain;Other: RESULT: Chest 2 Views Frontal and Lat Chest 2 Views Frontal and Lat REASON: Chest Pain COMPARISON: Multiple priors, most recent 09/17/2022. FINDINGS: LINES AND TUBES: None. LUNGS AND PLEURA: Clear lungs. Normal pulmonary vascularity. No pleural effusion. No pneumothorax. HEART, MEDIASTINUM AND BRONSON: Heart is normal in size. Normal mediastinal and hilar contour. BONES AND SOFT TISSUES: No acute abnormality. Surgical clips in the right upper quadrant, likely related to prior cholecystectomy. IMPRESSION: No acute abnormality. I have personally reviewed the images and I agree with this report. WSN: [id number] Ordering Physician: Elva Garner Dictated By: Taryn Phelps DO Dictated Date/Time: 09/26/22 4:03 pm Reviewed By: Martin Corey MD Signed By: Martin Corey MD Signed Date/Time: 09/26/22 4:08 pm Transcribed By: LOGAN Transcribed Date/Time: 09/26/22 3:53 pm Vital Signs Most recent to oldest [Reference Range]: 1 2 3 Height 175 cm (09/28/22 3:05 PM) 175 cm (09/28/22 11:40 AM) 175 cm (09/28/22 9:05 AM) Weight 85 kg (09/27/22 4:29 AM) 85 kg (09/26/22 6:33 PM) 85 kg (09/26/22 2:33 PM) Oxygen Saturation [94-100 %] 96 % (09/28/22 3:05 PM) 99 % (09/28/22 11:40 AM) 97 % (09/28/22 9:05 AM) Pulse Rate [55-90 bpm] 92 bpm *H* (09/28/22 3:05 PM) 98 bpm *H* (09/28/22 11:40 AM) 66 bpm (09/28/22 9:05 AM) Body Mass Index [18.5-24.99 kg/m2] 27.76 kg/m2 *H* (09/27/22 4:29 AM) 27.76 kg/m2 *H* (09/26/22 6:33 PM) Blood Pressure [90-138/55-84 mm Hg] 108/70mm Hg (09/28/22 3:05 PM) 113/72mm Hg (09/28/22 11:40 AM) 105/65mm Hg (09/28/22 9:05 AM) Respiratory Rate [16-30 br/min] 18 br/min (09/28/22 5:14 PM) 18 br/min (09/28/22 3:05 PM) 18 br/min (09/28/22 12:22 PM) Temperature [96.8-100.4 DegF] 97.9 DegF (09/28/22 3:05 PM) 97.5 DegF (09/28/22 11:40 AM) 97.4 DegF (09/28/22 9:05 AM) Mode of Delivery (Oxygen) Room air (09/28/22 3:05 PM) Room air (09/28/22 11:40 AM) Room air (09/28/22 9:05 AM) Blood pressure sites Arm, right (09/28/22 3:05 PM) Arm, right (09/28/22 11:40 AM) Arm, right (09/28/22 9:05 AM) Temperature Route Oral (09/28/22 3:05 PM) Oral (09/28/22 11:40 AM) Oral (09/28/22 9:05 AM) Dry Weight 85 kg (09/27/22 4:29 AM) 85 kg (09/26/22 6:33 PM) 85 kg (09/26/22 2:33 PM) Weight Obtained Via Patient/family state d (09/26/22 2:33 PM) Dry Weight Obtained Via Patient/family s tated (09/26/22 2:33 PM) Social History Social History Type Response Smoking Status Never (less than 100 in lifetime) entered on: 10/25/21 Sex Male Admission evaluation note * Cathi Helton MD: MODIFY Cathi Helton MD: MODIFY, MODIFY Yadira Brown DO: MODIFY, PERFORM Yadira Brown DO: PERFORM Event Display: Admission Note Authored Date: [id number] Patient: ??JEROME GONZALEZ ? Age:??47 Years?Sex:??Male?:??1975?? Chief Complaint/Reason for Consultation Pt coming from home with c/o witnessed syncopal epsiode. Pt A&Ox4 on EMS arrival, c/o generalized abd pain, denies NVD. 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 Patient reports he has been having abdominal pain for 2 days and leg pain for past week. ??He was cleaning his room and mom's room while talking to his partner. During the conv ersation, he suddenly lost consciousness for 4-5 minutes. When he woke up, he was confused and endorsed chills. Denies seizure like activity, states he knows when he is having an attack and this was not it. States oral intake has been good past few days. No fevers or chills prior to today. ?? In the ED, patient was afebrile, hemodynamically stable, saturating well on room air.?? EKG showed normal sinus rhythm, no ST changes. ??Labs show no leukocytosis.?? Hemoglobin 10, from 12.6 1-week ago.?? No electrolyte abnormalities, creatinine 1.0.?? Lipase within normal limit, LFTs within normal limits, lactate 2.1.?? NT proBNP 17, hs troponin negative.?? UA shows 1+ albumin, 1+ glucose, traceketones, negative nitrate, negative leukocyte.?? CT head and neck nonacute.?? CTA chest and abdomenshowed no aortic aneurysm or dissection stranding around seminal vesicle and prostate gland could indicate Prostatitis. ?? On my exam, patient was resting comfortably in bed no acute distress.?? Reports left leg pain. Review of Systems General: Denies fevers, chills HEENT: Denies headache CV: Denies chest pain, palpitations Respiratory: Denies shortness of breath, cough, wheezing GI:??Reports abdominal pain. Denies nausea, vomiting, constipation, diarrhea Extremities: Reports Left calf pain. Denies lower extremity edema MSK: Denies joint pain, difficulty ambulating, myalgias Neuro: Denies weakness, numbness, paresthesias ?? All other systems were reviewed and are negative except for above Objective Measurements?? Height: 175 cm (09/26/22) Weight: 85 kg (09/26/22) Dry Weight: 85 kg (09/26/22) Body Mass Index:??27.76 kg/m2??High (09/26/22) ? Vital Signs?? Temperature: 98.3 DegF (09/26/22 19:39:00) Temperature Route: Oral (09/26/22 19:39:00) Pulse Rate: 83 bpm (09/26/22 22:00:00) Respiratory Rate: 16 br/min (09/27/22 00:46:00) Vented: No (09/26/22 22:00:00) Systolic Blood Pressure: 108 mm Hg (09/26/22 22:00:00) Diastolic Blood Pressure: 78 mm Hg (09/26/22 22:00:00) Blood pressure sites: Arm, right (09/26/22 22:00:00) Mean Arterial Pressure: 82 mm Hg (09/26/22 18:33:00) Pulse Pressure: 30 mm Hg (09/26/22 22:00:00) Oxygen Saturation: 96 % (09/26/22 22:00:00) Mode of Delivery (Oxygen): Room air (09/26/22 22:00:00) Early Warning Score: 0 (09/27/22 00:46:30) ? Physical Exam General:??No acute distress HEENT:??EOMI, PERRLA,??mucous membranes moist CV:??RRR. S1, S2. No murmurs, rubs, or gallops. No JVD. Pedal/DP pulses intact. Respiratory:??Non-labored respirations. CTA bilaterally.??No wheezes, rales, rhonchi GI:??Bowel sounds present. Soft, non-distended. Tenderness mostly in??LLQ.??No rebound or guarding.No hepatosplenomegaly :??No suprapubic tenderness MSK:??Left calf tenderness present. No lower extremity edema Neuro:??AAO x3. Moves all extremities spontaneously Psych:??Affect appropriate Skin:??No lesions, wounds, rashes ?? 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 #Syncope #PNES Presents after syncopal episode,??reportedly followed by??chills and confusion Unlikely cardiac event??EKG??nonischemic,??negative cardiac??biomarkers. No focal neurological deficits, CT head nonacute Pt has chronic DVTs, CTA chest negative for PE Reports compliance with lacosamide DDX: Possibly vasovagal versus hypovolemic??in setting of prostatitis. Unlikely breakthrough seizure, pt has presented numerous times with similar symptoms, approx every month in the past year. Workup every time has been unrevealing. High suspicion there is psychogenic/conversion component to syncopal/seizure- like episodes. ?? Plan: - Seizure precautions - Neurochecks Q4H - Check lacosamide level - Orthostatic??vital signs ?? #Abnormal appearing prostate on imaging Possible findings for prostatits on CT Has appointment with urology for hx enlarged prostate Low suspicion prostatitis given pt afebrile, no leukocytosis, UA negative. Pt is also asymptomatic and states rectal exam in ED was non-tender ?? Plan: - Bladder scan Q6H to ensure not retaining - f/u urology for enlarged prostate ? #History of recurrent Left Lower Extremity DVTs (likely chronic left femoral, popliteal and peroneal)?? #Post-Thrombotic Syndrome?? Has had multiple LE US with differing technique??showing varying degrees of??chronic DVT. ??Has been seen by hematology and started on??anticoagulation??with fondaparinux. 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 ?? Plan: - Continue fondaparinux - Morphine as needed for pain?? - No indication for repeat US given chronic DVT already on AC? Chronic, stable medical conditions Seizure disorder: continue lacosamide PAD, HLD: continue statin Hypothyroidsim: continue levothyroxine GERD: continue pantoprazole HIV: continue HAART ? Quality Measures: DVT prophylaxis: fondaparinux Diet: Cardiac Code status: FULL ?? Patient seen and discussed with attending physician, ??Sunitha Brown, DO Internal Medicine PGY-2 Pager #: [phone] ? Attending Attestation:??I have seen and evaluated this patient- 09/27/22 in D3B after she had presented for evaluation of a witnessed syncopal event at home in the setting of ongoing abdominal and leg pains and was found to have nl vitals, normal cardiac markers and chronic anemia (modest fluctuations in baseline). He was just transitioned to fondaparinux for chronic anticoagulation in the??settingof recurrent/chronic DVT. The CTA did not show any PE or other aneurysm. The urine studies are nl and none of the symptoms suggest a prostatic issue.?I have discussed the case and its management with the resident and agree with the findings and plan as documented in the resident???s note. ? Histories Allergies Allergies ?(Active and Proposed Allergies Only) traMADol? (Severity: Unknown severity, Onset: Unknown) Tylenol? (Severity: Unknown severity, Onset: Unknown) ?Reactions: itching oxyCODONE? (Severity: Persistent Mild, Onset: Unknown) Percocet 7.5/325? (Severity: Unknown severity, Onset: Unknown) ?Reactions: C/O: itching ?Comments: makes pt itchy Lobster? (Severity: Persistent Severe, Onset: Unknown) influenza virus vaccine, inactivated? (Severity: Unknown severity, Onset: Unknown) ?Comments: Hx of Guillain - [place] Tegretol? (Severity: Unknown severity, Onset: Unknown) ?Reactions: Hallucinations, aggression Lamictal? (Severity: Unknown severity, Onset: Unknown) ?Reactions: Tegretol measurement, Hives, itch ? Past Medical History/Problem List Active Problems??(17) AAA (abdominal aortic aneurysm) Abdominal pain Asthma Chest pain Diabetes mellitus Ex-smoker, quit 2016 GERD (gastroesophageal reflux disease) Guillain-[place] syndrome Hematoma of leg HIV disease HLD (hyperlipidemia) HTN (hypertension) Hypothyroidism PVD (peripheral vascular disease) Seizure disorder Sepsis Skin infection ? Past Surgical History Esophagogastroduodenoscopy and biopsy: 04/20/20 Upper gastrointestinal endoscopy including esophagus, stomach, and either the duodenum and/or jejunum as appropriate; diagnostic, with or without collection of specimen(s) by brushing or washing (separate procedure): 01/01/18 Upper GI endoscopy: 01/01/18 Left common iliac artery thrombectomy. Left [employer] cutdown & repair. Left DOMENICO stenting w/iCAST stents. ??Right DOMENICO stenting iCAST stent. Left lower extremity 4 compartment fasciotomy: 01/21/17 Cholecystectomy Endovascular repair of abdominal aortic aneurysm Appendectomy ? Social History Alcohol Details:??Use: Never. Details:??Use: Past. ??Frequency: Daily. ??Type: Liquor. ??Other: has not drank in 24 years. Employment/School Details:??Status: Disabled. Home/Environment Details:??Living situation: Home/Independent. ??Lives with: Mother, Significant other. Substance Abuse Details:??Use: Never. Details:??Use: Never. Tobacco Details:??Use: Never (less than 100 in lifetime). Details:??Former smoker, Tobacco user in household: No. ??Other: quit in july 2016. ??Type: Cigarettes. ??Tobacco use times per day: half pack per day. ??Started at age: 11 Years. Electronic Cigarette/Vaping Details:??Electronic Cigarette Use: Never. ? Family History [place]. Grandfather: Deep vein thrombosis ? Medications Home Medications Albuterol (ProAir HFA 90 mcg/inh inhalation aerosol)?INHALE DANDO DOS SOPLIDOS CADA CUATRO HORASCUANDO SEA NECESARIO Atorvastatin (atorvastatin 80 mg oral tablet)?1?tab(s)?80?Milligram?By Mouth?Daily at bedtime?for 30?Days Cobicistat/Darunavir (Prezcobix 800 mg-150 mg oral tablet)?1?tab(s)?By Mouth?Daily?with food dulaglutide (Trulicity Pen 1.5 mg/0.5 mL subcutaneous solution)?INJECT 1 PEN INTO THE SKIN ONCE EVERY WEEK Famotidine (famotidine 20 mg oral tablet)?TOME DOS TABLETAS POR VIA ORAL TODOS [place] fondaparinux (fondaparinux 7.5 mg/0.6 mL subcutaneous solution)?0.6?Milliliter?7.5?Milligram?Subcutaneous Injection?Daily?for 28?Days?given 7.5 mg QD, when switching from lo venox, this should be given at time of next planned dose of lovenox, after which lovenox can be discontinued Lacosamide (Vimpat 100 mg oral tablet)?1?tab(s)?100?Milligram?By Mouth?2 [...] 150 mg oral tablet)?1?tab(s)?150?Milligram?By Mouth?Daily atbedtime ? Results Recent Labs BLOOD COUNT & DIFF WBC 5.2 k/mm3 ()?? 09/26/2022 15:32 RBC 3.38 m/mm3 (Low)?? 09/26/2022 15:32 Hgb 10.0 Gm/dL (Low)?? 09/26/2022 15:32 Hct 30.7 % (Low)?? 09/26/2022 15:32 MCV 90.8 femtoliters ()?? 09/26/2022 15:32 MCH 29.6 pg ()?? 09/26/2022 15:32 MCHC 32.6 g/dL (Low)?? 09/26/2022 15:32 Platelet Count 184 k/mm3 ()?? 09/26/2022 15:32 RDW-SD 54.7 femtoliters (High)?? 09/26/2022 15:32 MPV 10.1 femtoliters ()?? 09/26/2022 15:32 Nucleated RBC (Automated) 0.0 #/100 WBC'S ()?? 09/26/2022 15:32 Abs. NRBC 0.0 k/mm3 ()?? 09/26/2022 15:32 Abs. Neut 2.6 k/mm3 ()?? 09/26/2022 15:32 Abs. Lymph 2.0 k/mm3 ()?? 09/26/2022 15:32 Abs. [place] 0.5 k/mm3 ()?? 09/26/2022 15:32 Abs. Eo 0.0 k/mm3 ()?? 09/26/2022 15:32 Abs. Baso 0.0 k/mm3 ()?? 09/26/2022 15:32 Neut % 49.7 % ()?? 09/26/2022 15:32 Lymph % 38.8 % ()?? 09/26/2022 15:32 [place] % 10.3 % ()?? 09/26/2022 15:32 Eos % 0.6 % ()?? 09/26/2022 15:32 Baso % 0.4 % ()?? 09/26/2022 15:32 Imm Gran 0.2 % ()?? 09/26/2022 15:32 Abs. Imm Gran 0.0 k/mm3 ()?? 09/26/2022 15:32 ?? CARDIAC Nt-Probnp 17 pg/mL ()?? 09/26/2022 15:32 High Sensitivity Troponin (HSTnT) 7 ng/L ()?? 09/26/2022 19:41 ?? CHEM GENERAL Sodium 136 mmol/L ()?? 09/26/2022 15:32 Potassium 4.8 mmol/L ()?? 09/26/2022 15:32 Chloride 103 mmol/L ()?? 09/26/2022 15:32 Bicarbonate Level 23 mmol/L ()?? 09/26/2022 15:32 Anion Gap 10 ()?? 09/26/2022 15:32 Glucose Level 123 mg/dL (High)?? 09/26/2022 15:32 BUN 11 mg/dL ()?? 09/26/2022 15:32 Creatinine-Blood 1.0 mg/dL ()?? 09/26/2022 15:32 Estimated GFR Creatinine 93 ML/MIN/1.73 M2 ()?? 09/26/2022 15:32 Calcium 9.2 mg/dL ()?? 09/26/2022 15:32 Protein, Total 8.9 Gm/dL (High)?? 09/26/2022 15:32 Albumin 4.4 Gm/dL ()?? 09/26/2022 15:32 AG Ratio 1.0 ()?? 09/26/2022 15:32 Alkaline Phosphatase 137 units/L (High)?? 09/26/2022 15:32 Lipase 13 units/L ()?? 09/26/2022 15:32 AST (SGOT) 27 units/L ()?? 09/26/2022 15:32 ALT (SGPT) 27 units/L ()?? 09/26/2022 15:32 Bilirubin, Total 0.3 mg/dL ()?? 09/26/2022 15:32 Lactate 2.1 mmol/L ()?? 09/26/2022 23:39 ?? HEME OTHER Hold Blue Top SPECIMEN DISCARDED AFTER 4 HOURS. ()?? 09/26/2022 15:32 ?? UA/URINALYSIS Appear/Color, Urine YELLOW ()?? 09/26/2022 19:22 Specific [place], Urine 1.037 (High)?? 09/26/2022 19:22 pH, Urine 5.5 ()?? 09/26/2022 19:22 Albumin, Urine 1+ (Abnormal)?? 09/26/2022 19:22 Glucose, Urine 1+ (Abnormal)?? 09/26/2022 19:22 Ketones, Urine TRACE (Abnormal)?? 09/26/2022 19:22 Bilirubin, Urine NEGATIVE ()?? 09/26/2022 19:22 Hemoglobin, Urine NEGATIVE ()?? 09/26/2022 19:22 Nitrite, Urine NEGATIVE ()?? 09/26/2022 19:22 Leukocyte, Urine NEGATIVE ()?? 09/26/2022 19:22 Urobilinogen 2 mg/dL (Abnormal)?? 09/26/2022 19:22 WBC's, Urine 1 /HPF ()?? 09/26/2022 19:22 RBC's, Urine 1 /HPF ()?? 09/26/2022 19:22 Squamous Epith 1 /HPF ()?? 09/26/2022 19:22 Calcium Oxal MODERATE /HPF ()?? 09/26/2022 19:22 Mucus HEAVY /LPF ()?? 09/26/2022 19:22 Hold Urine Culture Testing available 48 hours from time of collection. ()?? 09/26/2022 19:22 ?? VIROLOGY COVID-19 by RT-PCR NEGATIVE ()?? 09/26/2022 23:36 ? CBC, CBC w/Diff?? CBC?? Differential?? WBC: 5.2 k/mm3 (15:32) Abs. Neut: 2.6 k/mm3 (15:32) RBC:??3.38 m/mm3??Low (15:32) Abs. Lymph: 2 k/mm3 (15:32) Hct:??30.7 %??Low (15:32) Abs. [place]: 0.5 k/mm3 (15:32) RDW-SD:??54.7 femtoliters??High (15:32) Abs. Eo: 0 k/mm3 (15:32) Nucleated RBC (Automated): 0 #/100 WBC'S (15:32) Abs. Baso: 0 k/mm3 (15:32) Abs. NRBC: 0 k/mm3 (15:32) Neut %: 49.7 % (15:32) ?? Lymph %: 38.8 % (15:32) ?? [place] %: 10.3 % (15:32) ?? Eos %: 0.6 % (15:32) ?? Baso %: 0.4 % (15:32) ?? Imm Gran: 0.2 % (15:32) ?? Abs. Imm Gran: 0 k/mm3 (15:32) ? Urinalysis Albumin, Urine: 1+ Abnormal (19:22) Appear/Color, Urine: YELLOW (19:22) Bilirubin, Urine: NEGATIVE (19:22) Calcium Oxal: MODERATE (19:22) Glucose, Urine: 1+ Abnormal (19:22) Hemoglobin, Urine: NEGATIVE (19:22) Hold Urine Culture: Testing available 48 hours from time of collection. (19:22) Ketones, Urine: TRACE Abnormal (19:22) Leukocyte, Urine: NEGATIVE (19:22) Mucus: HEAVY (19:22) Nitrite, Urine: NEGATIVE (19:22) pH, Urine: 5.5 (19:22) RBC's, Urine: 1 /HPF (19:22) Specific [place], Urine:??1.037??High (19:22) Squamous Epith: 1 /HPF (19:22) Urobilinogen: 2 mg/dL Abnormal (19:22) WBC's, Urine: 1 /HPF (19:22) ?? Microbiology ?? COVID-19 (Novel Coronavirus), Rapid PCR?? Completed?? Source: Nasal Body Site: Nose Collected Dt/Tm: 09/26/2022 23:15 Last Updated Dt/Tm: 09/27/2022 00:33 ? EKG study * Event Display: ECG 12-Lead Authored Date: Please click on pdf link to open report * Event Display: ECG 12-Lead Authored Date: Ventricular Rate: 91 BPM Atrial Rate: 91 BPM P-R Interval: 146 ms QRS Duration: 88 ms Q-T Interval: 368 ms QTC Calculation(Bazett): 452 ms P [place]: 43 degrees R [place]: 30 degrees T [place]: 19 degrees Normal sinus rhythm Normal ECG When compared with ECG of 20-SEP-2022 14:13, No significant change was found Confirmed by ANTHONY ABRAMS ([id number]) on 09/27/2022 8:34:19 AM [place]: ANTHONY ABRAMS [facility] Progress note * Kandy Mann MD: PERFORM, SIGN, VERIFY Event Display: Progress [facility] Authored Date: Patient: JEROME GONZALEZ Age: 47 years Sex: Male : 1975 Associated Diagnoses: None Author: Kandy Mann MD CTA of the chest/abdomen/pelvis was reviewed. There is an aortic stent graft that is in place with no discernible AAA. The left iliac vein is minimally compressed. I do not think this is the cause of his recurrent DVT's. No need to follow up with vascular. * Lakshmi Acharya RN: PERFORM, SIGN, VERIFY Event Display: Progress [facility] Authored Date: Patient: JEROME GONZALEZ Age: 47 years Sex: Male : 1975 Associated Diagnoses: None Author: Lakshmi Acharya RN Findings Nursing Data Neurological Data. : Neurological Data. 09/27/2022 19:00 EST Neurological Symptoms None Orientated to person, place, time Person, Place, Time, Event Strength LUE 5-Active movement against gravity & full resistance Strength RUE 5-Active movement against gravity & full resistance Strength LLE 4-Active movement against gravity & some resistance Strength RLE 5-Active movement against gravity & full resistance Tone LUE Normal Tone RUE Normal Tone LLE Normal Tone RLE Normal Sensation LUE Intact Sensation RUE Intact Sensation LLE Diminished Sensation RLE Intact Movement LUE Spontaneous, To command Movement RUE Spontaneous, To command Movement LLE Spontaneous, To command Movement RLE Spontaneous, To command Pain Location Abdomen, left lower, Abdomen, left upper, Abdomen, right lower, Abdomen, right upper,Leg, left 1 - 10 Pain Scale Score 9 Pain Interventions PRN medication Neuro WNL except . Narrative/Incidental Jerome is alert and oriented x 4. No c/o headache, chest pain or SOB, nausea or vomiting. C/o 10/10abdominal pain and bilateral leg pain, PRN morphine given with good effect. Observed walking with steady gait. Call arnold within reach. . Discharge Information Case Management Discharge Plan : Case Management Discharge Plan Data 09/20/2022 16:41 EST Discharge Level of Care at Discharge Home/Intermediate/Foster Care * Calvin Sterling MD: PERFORM Event Display: Progress Note Hospital Authored Date: [id number] Patient: ??JEROME GONZALEZ ? Age:??47 Years?Sex:??Male?:??1975?? Subjective Overnight events: No significant events overnight. Review of Systems General:??Feels well and slept overnight. Cardiovascular:??Denies any chest pain or palpitations. Pulmonary:??Denies any shortness of breath or cough. GI:??Abdominal pain. Denies any nausea, vomiting, diarrhea or constipation. :??Denies any urinary retention. Objective ?? Intake/Output? 09/27 15:40 09/27 07:00 09/26 07:00 09/25 07:00 09/24 07:00 ?? 09/27 17:37 09/27 17:37 09/27 06:59 09/26 06:59 09/25 06:59 Intake ?120 ?120 ?0 ?0 ?0 Output ?0 ?0 ?0 ?0 ?0 Net Total ?120 ?120 ?0 ?0 ?0 ? Urine Count ?2 ?2 ?0 ?0 ?0 ? Physical Exam Vital Signs (24 hrs) Last Charted?? Minimum?? Maximum?? Temp?? I have read the above and understand it.?? 09/27/2022 03:49?? I have read the above and understand it.?? 09/27/2022 03:49 ?? I have read the above and understand it.?? 09/27/2022 03:49?? Resp Rate?? 20?? 09/27/2022 10:47?? L??11?? 09/27/2022 04:02 ?? 20?? 09/26/2022 17:47?? SBP?? 109?? 09/27/2022 10:47?? 105?? 09/27/2022 02:00 ?? 124?? 09/27/2022 04:02?? DBP?? 74?? 09/27/2022 10:47?? 70?? 09/26/2022 18:33 ?? 81?? 09/26/2022 19:39? *Interviewed with in person translator and interpreter* General Appearance: The patient is in NAD. Cardiovascular: RRR S1 and S2 heard with no M/R/G. Respiratory: ??Breath sounds clear to auscultation bilaterally. No wheezing. Good air movement throughout both lungs. GI: LLQ tenderness but otherwise soft, nontender and nondistended. MS: ??Left calf tenderness with no increased warmth or swelling.?? No edema or erythema in the lower extremities. No wounds seen on the feet. Decreased Peripheral sensation on LLE.?? Normal distal lower extremity pulses 2+.?? Neuro: ??No slurred speech. ??Patient seen moving their upper and lower extremities independently. Psych: Appropriate and pleasant. Lines: Peripheral IV in place.? Results Test Name Test Result Date/TimeHgb 11.9 Gm/dL (Low) 09/27/2022 07:07 EST Remainder of CBC, electrolytes, BUN, creatinine unremarkable. Assessment/Plan JEROME??CATRACHO MEADOWS??is a??47 Years??Male??with AAA s/p repair with EVAR 2016 in [place] complicated by stent graft occlusion, s/p left common iliac thrombectomy and b/l common iliac stent placement, seizures on vimpat (last seizure 5 years ago), hx of PNES per chart review (patient still takes vimpat), hx left leg compartment fasciotomy, HIV on HAART, PVD, asthma, GERD, diverticulitis s/presection, GBS after flu, DMT2, HL, former smoker, and recurrent DVTs on??anticoagulation who presents for syncopal episode.? Acute Issues (active management): Syncope Orthostatic negative (Pulse Difference: 14 bpm, SBP Difference: 0 mmHg, DBP Difference: 0 mmHg)?? No preceding symptoms such as chest pain, shortness of breath, lightheadedness, dizziness.?? No postictal period consistent with seizure-like activity.?? Orthostatic vitals negative. ?? Plan: ??? Continue to monitor ?? Abdominal pain: Prostatitis ?? Plan: ??? Levofloxacin 500 mg daily for 14-day course for prostatitis given squeezing abdominal pain in the left lower quadrant radiating to the groin ??? Urine culture added on with gonorrhea/chlamydia NAAT ordered ??? Pain regimen: Morphine 2 mg IV every 4 hours as needed, morphine 5 mg p.o. every 4 hours as needed ??? Bowel regimen: MiraLAX 17 g daily as needed, docusate/senna as needed ?? Left leg pain He notes left calf pain.?? No increased swelling or warmth compared to right leg.?? Given history of recurrent DVTs, get ultrasound. ?? Plan: ??? Left lower extremity ultrasound ?? Stable Issues (stable former acute issues): Normocytic anemia: Baseline hemoglobin 11???13 g/dL.?? Around baseline.???CBC daily.?? Transfuse less than 7 g/dL. ?? Chronic Issues: Hyperlipidemia: Atorvastatin HIV: Prezcobix, raltegravir, tenofovir GERD: Famotidine, pantoprazole History of recurrent DVT: Fondaparinux Seizure disorder: Lacosamide Insomnia: Trazodone Mild intermittent asthma: Not in exacerbation.?? Albuterol as needed Hypothyroidism: Levothyroxine Aortic abdominal aneurysm status post repair (2016; [place] (complicated by stent graft occlusion: Outpatient routine management Peripheral vascular disease: Status post left common iliac thrombectomy and bilateral common iliac stent placements: Outpatient routine management ?? DVT Prophylaxis: Fondapurinox Diet:??Cardiac Diet: Cardiac, No Carbohydrate Restriction; Fluids: No Fluid Restriction; 2 Gram Sodium Code Status:? PT ordered?:??No active Physical Therapy Orders.?? Dispo:??Home?? Note * Madelaine Chauhan RN: PERFORM Event Display: Discharge/Transfer Note Hospital Authored Date: [id number] Nursing Discharge Note Entered On: 09/28/2022 18:30 EST Performed On: 09/28/2022 18:30 EST by Madelaine Chauhan RN Nursing Discharge Note 2 Discharge Time : 09/28/2022 18:05 EST Discharge Level of Care at Discharge : Home/Intermediate/Foster Care Patient Left Unit Via : Ambulatory Patient Accompanied Off Unit with : Responsible adult DC Instructions Provided & Signed by Pt : Yes Patient Understands D/C Instructions : Yes Patient Instructions Discharge Signed : Yes Did Pt have Specialty Bed or Wound Vac : No Madelaine Chauhan RN - 09/28/2022 18:30 EST * Calvin Sterling MD: PERFORM, MODIFY Event Display: Discharge/Transfer Note Hospital Authored Date: [id number] Patient: ??JEROME GONZALEZ ? Age:??47 Years?Sex:??Male?:??1975?? Patient Information Discharge Location: B Primary Care Physician: Thomas Bright Admit Date/Time: 09/27/22 15:40 Discharge Disposition Discharge Disposition: Home: No Services Discharge Diagnosis Chronic deep vein thrombosis (DVT) of left femoral vein (I82.512) Syncope (R55) AAA (abdominal aortic aneurysm) Abdominal pain Asthma [...] 800 mg-150 mg oral tablet)?1?tab(s)?By Mouth?Daily?with food dulaglutide (Trulicity Pen 1.5 mg/0.5 mL subcutaneous solution)?INJECT 1 PEN INTO THE SKIN ONCE EVERY WEEK Famotidine (famotidine 20 mg oral tablet)?TOME DOS TABLETAS POR VIA ORAL TODOS [place] fondaparinux (fondaparinux 7.5 mg/0.6 mL subcutaneous solution)?0.6?Milliliter?7.5?Milligram?Subcutaneous Injection?Daily?for 28?Days?given 7.5 mg QD, when switching from lo venox, this should be given at time of next planned dose of lovenox, after which lovenox can be discontinued Lacosamide (Vimpat 100 mg oral tablet)?1?tab(s)?100?Milligram?By Mouth?2 times a day?at night Levothyroxine (levothyroxine 25 mcg (0.025 mg) oral capsule)?1?capsule?25?Microgram?By Mouth?Daily Morphine (morphine 10 mg/5 mL oral solution)?2.5?Milliliter?5?Milligram?By Mouth?Every 4 hours?as needed?Pain , Moderate Ondansetron (ondansetron 4 mg oral tablet, disintegrating)?TAKE ONE TABLET BY MOUTH ONCE A DAY NEEDED FOR NAUSEA AND VOMITING Pantoprazole (pantoprazole 40 mg oral delayed release tablet)?1?tab(s)?40?Milligram?By Mouth?Daily?take at a different time than famotidine Raltegravir (Isentress HD 600 mg oral tablet)?2?tab(s)?1,200?Milligram?By Mouth?Daily Tenofovir (tenofovir disoproxil fumarate 300 mg oral tablet)?1?tab(s)?300?Milligram?By Mouth?Daily Trazodone (traZODone 150 mg oral tablet)?1?tab(s)?150?Milligram?By Mouth?Daily atbedtime ? 72 Hour Antibiotic History Active Antibiotics Calendar Day Last Administered First Administered Cobicistat/Darunavir??1 tablet, By Mouth, Daily ?2 09/28/2022 12:23 09/27/2022 11:35 Levofloxacin??500 mg, 1 tablet, By Mouth, Every 24 hours ?2 09/27/2022 17:01 09/27/2022 17:01 ? Medications Started Morphine (morphine 10 mg/5 mL oral solution)?2.5?Milliliter?5?Milligram?By Mouth?Every 4 hours?as needed?Pain , Moderate Medications Discontinued No medications discontinued ?? Doses Changed No medications changed PCP Follow-Up/Heads-Up Follow up leg pain from chronic DVT.?? Consider palliative referral Follow-up lacosamide level Future Appointments Sunday 2:00 PM EDT ?? With: Reuben Kessler MD Where: [facility] [address] [place] [address]- Sunday 9:00 AM EDT ?? With: Where: [facility] [address] [place] [id number]- Sunday 9:30 AM EDT ?? With: Where: [facility] [address] [place] [address]- Sunday 10:00 AM EDT ?? With: Where: [facility] [address] [place] [address]- Sunday 10:30 AM EDT ?? With: Where: [facility] [address] [place] [address]- Sunday 9:00 AM EDT ?? With: Anselmo Mendieta MD Where: [facility] [address] [place] [id number]- Hospital Course 47-year-old man with AAA s/p repair with EVAR 2016 in [place] complicated by stent graft occlusion, s/p left common iliac thrombectomy and b/l common iliac stent placement, seizures on vimpat (last seizure more than 4 years ago), hx of PNES per chart review (patient still takes vimpat), hx leftleg compartment fasciotomy, HIV on HAART, PVD, asthma, GERD, diverticulitis s/p resection, GBS after flu, DMT2, HL, former smoker, and recurrent DVTs on anticoagulation who presented for syncopal episode. ?? He had been having abdominal pain for 2 days and leg pain for past week prior to admission. He was cleaning his room and mom's room while talking to his partner. During the conversation, he suddenly lost consciousness for 4-5 minutes. When he woke up, he was confused and endorsed chills. He denied seizure like activity, and stated he knows when he is having an attack and this was not it. Oral intake was good past few days. No fevers or chills prior to day of admission. ?? In the ED, patient was afebrile, hemodynamically stable, saturating well on room air. EKG showed normal sinus rhythm, no ST changes. Labs show no leukocytosis. UA shows 1+ albumin, 1+ glucose, trace ketones, negative nitrate, negative leukocyte. CT head and neck nonacute. CTA chest and abdomen showed no aortic aneurysm or dissection stranding around seminal vesicle and prostate gland could indicate Prostatitis. ?? In terms of syncope work-up, no further episodes of syncope were noted during hospitalization. Orthostatic vitals were negative. He was treated for acute bacterial prostatitis but urine culture and gonorrhea and chlamydia cultures were negative so antibiotics were discontinued on discharged. Patient had left calf pain which is evaluated with left lower extremity DVT ultrasound which was read as progression of known left lower extremity DVT. Hematology was consulted who recommended vascular surgery evaluation. Vascular surgery evaluated the imaging and did not recommend any further evaluation.Hematology recommended continuing with fondaparinux for now with outpatient follow-up. ?? Objective Assessment and Plan JEROME??CATRACHO MEADOWS??is a??47 Years??Male??with AAA s/p repair with EVAR 2016 in [place] complicated by stent graft occlusion, s/p left common iliac thrombectomy and b/l common iliac stent placement, seizures on vimpat (last seizure 5 years ago), hx of PNES per chart review (patient still takes vimpat), hx left leg compartment fasciotomy, HIV on HAART, PVD, asthma, GERD, diverticulitis s/presection, GBS after flu, DMT2, HL, former smoker, and recurrent DVTs on??anticoagulation who presents for syncopal episode.? Syncope Orthostatic negative (Pulse Difference: 14 bpm, SBP Difference: 0 mmHg, DBP Difference: 0 mmHg)?? CTH and CTA negative. No preceding symptoms such as chest pain, shortness of breath, lightheadedness, dizziness.?? No postictal period consistent with seizure-like activity.? Recommendations: ??? PCP to follow-up in 3-5 days ??? PCP to follow-up lacosamide level ?? Abdominal pain: Prostatitis No fever, leukocytosis.?? Urine culture and gonorrhea and Chlamydia culture negative. Plan: ??? Levofloxacin 500 mg daily prescribed while inpatient but no fever, leukocytosis with cultures negative so discontinued on discharge ??? PCP to follow-up ?? Left leg pain Chronic left femoral vein DVT He noted left calf pain with chronic DVT noted on US.?? Hematology recommended vascular evaluation who did not recommend any intervention at this time.?? Hematology recommended outpatient follow-up and discharged on fondaparinux. ?? Recommendations: ??? Hematology outpatient follow-up ??? Continue fondaparinux ??? Short course morphine prescribed with follow-up by PCP recommended to the patient ?? Normocytic anemia: Baseline hemoglobin 11???13 g/dL.?? Around baseline. ?? Chronic Issues: Hyperlipidemia: Atorvastatin HIV: Prezcobix, raltegravir, tenofovir GERD: Famotidine, pantoprazole History of recurrent DVT: Fondaparinux Seizure disorder: Lacosamide Insomnia: Trazodone Mild intermittent asthma: Not in exacerbation.?? Albuterol as needed Hypothyroidism: Levothyroxine Aortic abdominal aneurysm status post repair (2016; [place] (complicated by stent graft occlusion: Outpatient routine management Peripheral vascular disease: Status post left common iliac thrombectomy and bilateral common iliac stent placements: Outpatient routine management ?? Measurements?? Height: 175 cm (09/28/22) Weight: 85 kg (09/27/22) Dry Weight: 85 kg (09/27/22) Body Mass Index:??27.76 kg/m2??High (09/27/22) ? Vital Signs?? Temperature: 97.9 DegF (09/28/22 15:05:00) Temperature Route: Oral (09/28/22 15:05:00) Pulse Rate:??92 bpm??High (09/28/22 15:05:00) Respiratory Rate: 18 br/min (09/28/22 17:14:00) Systolic Blood Pressure: 108 mm Hg (09/28/22 15:05:00) Diastolic Blood Pressure: 70 mm Hg (09/28/22 15:05:00) Blood pressure sites: Arm, right (09/28/22 15:05:00) Mean Arterial Pressure: 83 mm Hg (09/28/22 15:05:00) Pulse Pressure: 38 mm Hg (09/28/22 15:05:00) Oxygen Saturation: 96 % (09/28/22 15:05:00) Mode of Delivery (Oxygen): Room air (09/28/22 15:05:00) Early Warning Score: 2 (09/28/22 17:21:38) ? Ventilator Settings?? No qualifying data available. ? Intake/Output? 09/27 15:40 09/28 07:00 02 07:00 09/26 07:00 09/25 07:00 ?? 09/28 17:26 09/28 17:26 09/28 06:59 09/27 06:59 09/26 06:59 Intake ?240 ?120 ?120 ?0 ?0 Output ?0 ?0 ?0 ?0 ?0 Net Total ?240 ?120 ?120 ?0 ?0 ? Urine Count ?2 ?0 ?2 ?0 ?0 ? . Physical Exam Vital Signs (24 hrs) Last Charted?? Minimum?? Maximum?? Resp Rate?? 18?? 09/28/2022 15:05?? L??12?? 09/28/2022 11:40 ?? 18?? 09/27/2022 17:01?? SBP?? 108?? 09/28/2022 15:05?? 101?? 09/27/2022 22:33 ?? 120?? 09/27/2022 18:46?? DBP?? 70?? 09/28/2022 15:05?? 65?? 09/28/2022 09:05 ?? 80?? 09/27/2022 18:46? *Interviewed with translator and interpreter* General Appearance: The patient is in NAD. Cardiovascular: RRR S1 and S2 heard with no M/R/G. Respiratory: ??Breath sounds clear to auscultation bilaterally. No wheezing. Good air movement throughout both lungs. GI: Soft. Nontender and nondistended. Normal bowel sounds present throughout abdomen.?? MS:?Well healed incisions on both legs.?? Left calf pain.?? No increased warmth, swelling.?? Neuro: ??No slurred speech. ??Patient seen moving their upper and lower extremities independently. Psych: Appropriate and pleasant. Lines: Peripheral IV in place.? Consultants ?Consultation Note ?? 09/28/2022 09:40??by Vamsi MG, Carson Gonzales ?Hematology Pending Results Add On Lab Order ordered on 09/27/2022 COVID-19 (2019 Novel Coronavirus) PCR ordered on 09/28/2022 Lacosamide Level ordered on 09/27/2022 Patient Education Titles Morphine Oral Solution?? Causes of Syncope?? What Is Syncope?? Follow-Up Appointments Added Follow Up ?Time Frame ?Comments Thomas Bright?1-2 day: call to discuss follow up visit Patient Instructions You were seen at [facility] after passing out.?? No apparent cause was found for your passing out with normal blood pressures, imaging.?? You were found to have left leg blood clot that was seen previously.?? Both vascular surgery and hematology (blood specialist) did not recommend anychanges. ?? Here is what you need to do: ??? Follow-up with PCP in 3 to 5 days ??? Follow-up with hematology (blood specialist) in 1 to 2 weeks ??? Continue fondaparinux ??? Antibiotics were not prescribed as your cultures were negative ??? If you have any worsening leg pain, decrease sensation, increased numbness, chest pain, headache, further episodes of passing out, please call your primary care physician or present to the emergency department for further evaluation. Post Discharge Care Diet: Cardiac diet Code Status: ?? Full Resuscitation Discharge ?09/28/22 17:53:00 EST Discharge Prescriptions ?ePrescribed, ??09/28/22 17:53:00 EST Home Health Face to Face ^HomeHealthFTF Results Discharge Labs BLOOD COUNT & DIFF WBC 4.2 k/mm3 ()?? 09/28/2022 06:41 RBC 4.18 m/mm3 (Low)?? 09/28/2022 06:41 Hgb 12.1 Gm/dL (Low)?? 09/28/2022 06:41 Hct 38.2 % (Low)?? 09/28/2022 06:41 MCV 91.4 femtoliters ()?? 09/28/2022 06:41 MCH 28.9 pg ()?? 09/28/2022 06:41 MCHC 31.7 g/dL (Low)?? 09/28/2022 06:41 Platelet Count 181 k/mm3 ()?? 09/28/2022 06:41 RDW-SD 56.5 femtoliters (High)?? 09/28/2022 06:41 MPV 9.6 femtoliters ()?? 09/28/2022 06:41 Nucleated RBC (Automated) 0.0 #/100 WBC'S ()?? 09/28/2022 06:41 Abs. NRBC 0.0 k/mm3 ()?? 09/28/2022 06:41 Abs. Neut 2.6 k/mm3 ()?? 09/26/2022 15:32 Abs. Lymph 2.0 k/mm3 ()?? 09/26/2022 15:32 Abs. [place] 0.5 k/mm3 ()?? 09/26/2022 15:32 Abs. Eo 0.0 k/mm3 ()?? 09/26/2022 15:32 Abs. Baso 0.0 k/mm3 ()?? 09/26/2022 15:32 Neut % 49.7 % ()?? 09/26/2022 15:32 Lymph % 38.8 % ()?? 09/26/2022 15:32 [place] % 10.3 % ()?? 09/26/2022 15:32 Eos % 0.6 % ()?? 09/26/2022 15:32 Baso % 0.4 % ()?? 09/26/2022 15:32 Imm Gran 0.2 % ()?? 09/26/2022 15:32 Abs. Imm Gran 0.0 k/mm3 ()?? 09/26/2022 15:32 ?? CARDIAC Nt-Probnp 17 pg/mL ()?? 09/26/2022 15:32 High Sensitivity Troponin (HSTnT) 7 ng/L ()?? 09/26/2022 19:41 ?? CHEM GENERAL Sodium 137 mmol/L ()?? 09/28/2022 06:41 Potassium 4.5 mmol/L ()?? 09/28/2022 06:41 Chloride 103 mmol/L ()?? 09/28/2022 06:41 Bicarbonate Level 23 mmol/L ()?? 09/28/2022 06:41 Anion Gap 11 ()?? 09/28/2022 06:41 Glucose Level 143 mg/dL (High)?? 09/27/2022 07:07 BUN 9 mg/dL ()?? 09/28/2022 06:41 Creatinine-Blood 1.0 mg/dL ()?? 09/28/2022 06:41 Estimated GFR Creatinine 97 ML/MIN/1.73 M2 ()?? 09/28/2022 06:41 Calcium 8.8 mg/dL ()?? 09/27/2022 07:07 Protein, Total 8.9 Gm/dL (High)?? 09/26/2022 15:32 Albumin 4.4 Gm/dL ()?? 09/26/2022 15:32 AG Ratio 1.0 ()?? 09/26/2022 15:32 Alkaline Phosphatase 137 units/L (High)?? 09/26/2022 15:32 Lipase 13 units/L ()?? 09/26/2022 15:32 AST (SGOT) 27 units/L ()?? 09/26/2022 15:32 ALT (SGPT) 27 units/L ()?? 09/26/2022 15:32 Bilirubin, Total 0.3 mg/dL ()?? 09/26/2022 15:32 Lactate 2.1 mmol/L ()?? 09/26/2022 23:39 ? COAG D-Dimer 1.13 mg/L FEU (High)?? 09/28/2022 08:11 ? HEME OTHER Hold Lavender Top SPECIMEN DISCARDED AFTER 24 HOURS. ()?? 09/28/2022 08:11 Hold Blue Top SPECIMEN DISCARDED AFTER 4 HOURS. ()?? 09/26/2022 15:32 ?? SEROLOGY INF DISEASE Chlamydia Trachomatis Amplified Probe NEGATIVE ()?? 09/27/2022 16:40 N. Gonorrhoeae Amplified Probe NEGATIVE ()?? 09/27/2022 16:40 Chlamydia / GC AMP Probe Specimen URINE ()?? 09/27/2022 16:40 ? UA/URINALYSIS Appear/Color, Urine YELLOW ()?? 09/26/2022 19:22 Specific Underwood, Urine 1.037 (High)?? 09/26/2022 19:22 pH, Urine 5.5 ()?? 09/26/2022 19:22 Albumin, Urine 1+ (Abnormal)?? 09/26/2022 19:22 Glucose, Urine 1+ (Abnormal)?? 09/26/2022 19:22 Ketones, Urine TRACE (Abnormal)?? 09/26/2022 19:22 Bilirubin, Urine NEGATIVE ()?? 09/26/2022 19:22 Hemoglobin, Urine NEGATIVE ()?? 09/26/2022 19:22 Nitrite, Urine NEGATIVE ()?? 09/26/2022 19:22 Leukocyte, Urine NEGATIVE ()?? 09/26/2022 19:22 Urobilinogen 2 mg/dL (Abnormal)?? 09/26/2022 19:22 WBC's, Urine 1 /HPF ()?? 09/26/2022 19:22 RBC's, Urine 1 /HPF ()?? 09/26/2022 19:22 Squamous Epith 1 /HPF ()?? 09/26/2022 19:22 Calcium Oxal MODERATE /HPF ()?? 09/26/2022 19:22 Mucus HEAVY /LPF ()?? 09/26/2022 19:22 Hold Urine Culture Testing available 48 hours from time of collection. ()?? 09/26/2022 19:22 ? VIROLOGY COVID-19 by RT-PCR NEGATIVE ()?? 09/26/2022 23:36 ? Microbiology ?? COVID-19 (Novel Coronavirus), Rapid PCR?? Completed?? Source: Nasal Body Site: Nose Collected Dt/Tm: 09/26/2022 23:15 Last Updated Dt/Tm: 09/27/2022 00:33 Chlamydia/N. Gonorrhoeae TMA (NAAT)?? Completed?? Source: Urine Body Site: Urethra Collected Dt/Tm: 09/27/2022 16:38 Last Updated Dt/Tm: 09/28/2022 13:23 ? Imaging(s) ?CT Head/Brain W/O Contrast ?? 09/26/2022 16:52??by Nazanin Cadet MD ?No acute intracranial pathology. ?CT Angio Chest ?? 09/26/2022 19:33??by Nazanin Cadet MD ?1. No aortic aneurysm or dissection. Juxtarenal aorta biiliac stent in place without associated aneurysm. 2. Fat stranding around the seminal vesicles and prostate gland could indicate prostatitis. ?Chest 2 Views Frontal and Lat ?? 09/26/2022 15:43??by Leora MG, Martin ?No acute abnormality. ?US Doppler Ext Lower Venous Left ?? 09/27/2022 19:38??by Chencho MG, Dada S ?Apparent progression of nonocclusive thrombus in the left leg compared to 09/17/2022. ?CT Angio Abdomen and Pelvis ?? 09/26/2022 19:33??by Nazanin Cadet MD ?1. No aortic aneurysm or dissection. Juxtarenal aorta biiliac stent in place without associated aneurysm. 2. Fat stranding around the seminal vesicles and prostate gland could indicate prostatitis. ? Consults(s) ?Consultation Note ?? 09/28/2022 09:40??by Carson Agustin MD ?Hematology ? 35??minutes spent on discharge * Gissel SIMEON, Madelaine: PERFORM Event Display: Patient Education/Instruction Authored Date: [id number] Inpatient Adult Discharge Instructions [address] [address] Name: JEROME HSIEHTIZ : 1975 Visit: 09/27/2022 15:40:00 Current Date: 09/28/2022 17:54 Account: [id number] Inpatient Adult Discharge Instructions We would like [...] and their families. Surveys are administered by [employer] ?? If further treatment with your primary care physician or another doctor is recommended, it is important for you to keep the appointment. Call your primary care physician or return to the Emergency Department immediately if your condition worsens, fails to improve, or new symptoms develop. If you need to find a doctor, you can call [facility] [employer] for a referral at [phone] or toll free at [phone] ([phone]) or log in to [email or web address].. ?? You can view and manage your care through the patient portal or by using a health care moises of your choosing. [employer] is a website that allows you to securely view your medical information including your hospital discharge summary, office visit summaries, medications and follow-up visits. You can also request appointments, renew medications, and request access to your medical information using a health care moises of your choosing, or just ask a question. You can enroll at [email or web address] or register during your next office visit. You have been discharged from [facility], Patient Care Unit: D3B. If you have any questions regarding these instructions after you leave, please call us and we will be happy to assist you. [facility] Your Care Team Attending Physician Asher MG, Calvin Consulting Providers Mackenzie MG, Kandy So MD, Jack Discharging Providers Asher MG, Calvin Reason for Admission Pt coming from home with c/o witnessed syncopal epsiode. Pt A&Ox4 on EMS arrival, c/o generalized abd pain, denies NVD. 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 You may have had other tests and procedures not included in this list. Please discuss all test results with your provider. B Type Natriuretic Peptide Basic Metabolic Panel BUN CBC CBC w/ Differential Chlamydia/N. Gonorrhoeae TMA (NAAT) Comprehensive Metabolic Panel COVID-19 (Novel Coronavirus), Rapid PCR Creatinine D Dimer Electrolytes High??Sensitivity??Troponin T Hold Blue Top Tube HOLD LAVENDER TUBE Lactic Acid Level Lipase Troponin T, High Sensitivity Urinalysis w/hold for Urine Culture CT Angio Abdomen and Pelvis CT Angio Chest CT Head/Brain W/O Contrast US Doppler Ext Lower Venous Left XR Chest 2 Views Frontal and Lat Primary Care Provider Thomas Bright Advance Directive Health Care Proxy on File Yes - Health Care Proxy Discharge Vitals Temperature: 97.9 DegF Height: 175 cm Pulse Rate:??92 bpm??High Weight: 85 kg Respiratory Rate: 18 br/min Body Mass Index:??27.76 kg/m2??High Systolic Blood Pressure: 108 mm Hg Body surface area: 2.03 Diastolic Blood Pressure: 70 mm Hg ?? Oxygen Saturation: 96 % ?? Studies Pending All tests and labs ordered during this hospital stay have been completed unless listed below. Please discuss all pending results with your provider listed above in these instructions. ?? Add On Lab Order COVID-19 (2019 Novel Coronavirus) PCR Lacosamide Level What to do next Instructions From Your Doctor You were seen at [facility] after passing out.?? No apparent cause was found for your passing out with normal blood pressures, imaging.?? You were found to have left leg blood clot that was seen previously.?? Both vascular surgery and hematology (blood specialist) did not recommend anychanges. ?? Here is what you need to do: ??? Follow-up with PCP in 3 to 5 days ??? Follow-up with hematology (blood specialist) in 1 to 2 weeks ??? Continue fondaparinux ??? Antibiotics were not prescribed as your cultures were negative ??? If you have any worsening leg pain, decrease sensation, increased numbness, chest pain, headache, further episodes of passing out, please call your primary care physician or present to the emergency department for further evaluation. Discharge Orders Diet:??Cardiac diet Code Status:?? Full Resuscitation Scheduled Follow-Up Appointments Sunday 2:00 PM EDT ?? With: Reuben Kessler MD Where: [facility] [address] [place] [address]- Sunday 9:00 AM EDT ?? With: Where: [facility] [address] [place] [id number]- Sunday 9:30 AM EDT ?? With: Where: [facility] [address] [place] [id number]- Sunday 10:00 AM EDT ?? With: Where: [facility] [address] [place] [id number]- Sunday 10:30 AM EDT ?? With: Where: [facility] [address] [place] [id number]- Sunday 9:00 AM EDT ?? With: Anselmo Mendieta MD Where: [facility] [address] [place] [id number]- You Need to Schedule the Following Appointments Follow Up with??Thomas Bright When??Within 1-2 day: call to discuss follow up visit Where: [address] [place] [address] [id number]- Discharge Medications CATRACHO JEROME MEADOWS :1975 Visit Date:09/27/2022 Medications: Please continue your medications until treatment is completed or stopped by your provider. Medications not listed below should be discontinued. Discuss any questions related to medications with your provider. What How Much When Instructions Next Dose New Morphine (morphine 10 mg/ 5 mL oral solution) 2.5 Milliliter Oral Every 4 hours as needed for Pain , Moderate Pickup at [facility] 3 09/28 9pm Unchanged Albuterol (ProAir HFA 90 mcg/ inh inhalation aerosol) INHALE DANDO DOS SOPLIDOS CADA CUATRO HORAS CUANDO SEA NECESARIO ?? as prescribed Unchanged Atorvastatin (atorvastatin 80 mg oral tablet) 1 tab(s) Oral Daily at Bedtime Duration: 30 Days 09/28 9pm Unchanged Cobicistat/ Darunavir (Prezcobix 800 mg-150 mg oral tablet) 1 tab(s) Oral Daily with food ?? 09/29 9am Unchanged dulaglutide (Trulicity Pen 1.5 mg/ 0.5 mL subcutaneous solution) INJECT 1 PEN INTO THE SKIN ONCE EVERY WEEK ?? as prescribed Unchanged Famotidine (famotidine 20 mg oral tablet) TOME DOS TABLETAS POR VIA ORAL TODOS [place] ?? 09/29 9am Unchanged fondaparinux (fondaparinux 7.5 mg/ 0.6 mL subcutaneous solution) 0.6 Milliliter Subcutaneous Injection Daily Duration: 28 Days given 7.5 mg QD, when switching from lovenox, this should be given at time of next planned dose of lovenox, after which lovenox can be discontinued ?? 09/29 9am Unchanged Lacosamide (Vimpat 100 mg oral tablet) 1 tab(s) Oral Twice a day at night ?? 09/28 9pm Unchanged Levothyroxine (levothyroxine 25 mcg (0.025 mg) oral capsule) 1 capsule Oral Daily 09/29 9am Unchanged Ondansetron (ondansetron 4 mg oral tablet, disintegrating) TAKE ONE TABLET BY MOUTH ONCE A DAY NEEDED FOR NAUSEA AND VOMITING ?? NEEDED FOR NAUSEA AND VOMITING Unchanged Pantoprazole (pantoprazole 40 mg oral delayed release tablet) 1 tab(s) Oral Daily take at a different time than famotidine ?? 09/29 9am Unchanged Raltegravir (Isentress HD 600 mg oral tablet) 2 tab(s) Oral Daily 09/29 9am Unchanged Tenofovir (tenofovir disoproxil fumarate 300 mg oral tablet) 1 tab(s) Oral Daily 09/29 9am Unchanged Trazodone (traZODone 150 mg oral tablet) 1 tab(s) Oral Daily at Bedtime 09/28 9pm Pharmacy Information [facility] 3: [address], [place] [id number] [phone] Test Results Below is a partial list of the most recent Laboratory test results done prior to this discharge. You may have had other tests and procedures not included in this list. Please discuss all test resultswith your provider. B Type Natriuretic Peptide (09/26/2022) ???Nt-Probnp - 17 pg/mL Basic Metabolic Panel (09/27/2022) ???Sodium - 139 mmol/L???Potassium - 3.9 mmol/L???Chloride - 102 mmol/L???Bicarbonate Level - 23 mmol/L???Anion Gap - 14???Glucose Level - 143 mg/dL???BUN - 11 mg/dL???Creatinine-Blood - 1.0 mg/dL???Estimated GFR Creatinine - 98 ML/MIN/1.73 M2???Calcium - 8.8 mg/dL BUN (09/28/2022) ???BUN - 9 mg/dL CBC (09/28/2022) ???WBC - 4.2 k/mm3???RBC - 4.18 m/mm3???Hgb - 12.1 Gm/dL???Hct - 38.2 %???MCV - 91.4 femtoliters???MCH - 28.9 pg???MCHC - 31.7 g/dL???Platelet Count - 181 k/mm3???RDW-SD - 56.5 femtoliters???MPV - 9.6 femtoliters???Nucleated RBC (Automated) - 0.0 #/100 WBC'S???Abs. NRBC - 0.0 k/mm3 CBC w/ Differential (09/26/2022) ???WBC - 5.2 k/mm3???RBC - 3.38 m/mm3???Hgb - 10.0 Gm/dL???Hct - 30.7 %???MCV - 90.8 femtoliters???MCH - 29.6 pg???MCHC - 32.6 g/dL???Platelet Count - 184 k/mm3???RDW-SD - 54.7 femtoliters???MPV - 10.1 femtoliters???Nucleated RBC (Automated) - 0.0 #/100 WBC'S???Abs. NRBC - 0.0 k/mm3???Abs. Neut - 2.6 k/mm3???Abs. Lymph - 2.0 k/mm3???Abs. [place] - 0.5 k/mm3???Abs. Eo - 0.0 k/mm3???Abs. Baso - 0.0 k/mm3???Neut % - 49.7 %???Lymph % - 38.8 %???[place] % - 10.3 %???Eos % - 0.6 %???Baso % - 0.4 %???Imm Gran - 0.2 %???Abs. Imm Gran - 0.0 k/mm3 Chlamydia/N. Gonorrhoeae TMA (NAAT) (09/27/2022) ???Chlamydia Trachomatis Amplified Probe - NEGATIVE???N. Gonorrhoeae Amplified Probe - NEGATIVE???Chlamydia / GC AMP Probe Specimen - URINE Comprehensive Metabolic Panel (09/26/2022) ???Sodium - 136 mmol/L???Potassium - 4.8 mmol/L???Chloride - 103 mmol/L???Bicarbonate Level - 23 mmol/L???Anion Gap - 10???Glucose Level - 123 mg/dL???BUN - 11 mg/dL???Creatinine-Blood - 1.0 mg/dL???Estimated GFR Creatinine - 93 ML/MIN/1.73 M2???Calcium - 9.2 mg/dL???Protein, Total - 8.9 Gm/dL???Albumin - 4.4 Gm/dL???AG Ratio - 1.0???Alkaline Phosphatase - 137 units/L???AST (SGOT) - 27 units/L???ALT (SGPT) - 27 units/L???Bilirubin, Total - 0.3 mg/dL COVID-19 (Novel Coronavirus), Rapid PCR (09/26/2022) ???COVID-19 by RT-PCR - NEGATIVE Creatinine (09/28/2022) ???Creatinine-Blood - 1.0 mg/dL???Estimated GFR Creatinine - 97 ML/MIN/1.73 M2 D Dimer (09/28/2022) ???D-Dimer - 1.13 mg/L FEU Electrolytes (09/28/2022) ???Sodium - 137 mmol/L???Potassium - 4.5 mmol/L???Chloride - 103 mmol/L???Bicarbonate Level - 23 mmol/L???Anion Gap - 11 High??Sensitivity??Troponin T (09/26/2022) ???High Sensitivity Troponin (HSTnT) - 7 ng/L Hold Blue Top Tube (09/26/2022) ???Hold Blue Top - SPECIMEN DISCARDED AFTER 4 HOURS. HOLD LAVENDER TUBE (09/28/2022) ???Hold Lavender Top - SPECIMEN DISCARDED AFTER 24 HOURS. Lactic Acid Level (09/26/2022) ???Lactate - 2.1 mmol/L Lipase (09/26/2022) ???Lipase - 13 units/L Troponin T, High Sensitivity (09/26/2022) ???High Sensitivity Troponin (HSTnT) - 7 ng/L Urinalysis w/hold for Urine Culture (09/26/2022) ???Appear/Color, Urine - YELLOW???Specific Underwood, Urine - 1.037???pH, Urine - 5.5???Albumin, Urine - 1+???Glucose, Urine - 1+???Ketones, Urine - TRACE???Bilirubin, Urine - NEGATIVE???Hemoglobin, Urine - NEGATIVE???Nitrite, Urine - NEGATIVE???Leukocyte, Urine - NEGATIVE???Urobilinogen - 2 mg/dL???WBC's, Urine - 1 /HPF???RBC's, Urine - 1 /HPF???Squamous Epith - 1 /HPF???Calcium Oxal - MODERATE???Mucus - HEAVY???Hold Urine Culture - Testing available 48 hours from time of collection. Allergies (NKA means No Known Allergies) Lobster oxyCODONE Lamictal??(Hives, itch) Percocet 7.5/325??(C/O: itching) Tegretol??(Hallucinations, aggression) Tylenol??(itching) influenza virus vaccine, inactivated traMADol Problems Active Problems??(20) AAA (abdominal aortic aneurysm)?? Abdominal pain?? Asthma?? Chest pain?? Diabetes mellitus?? Ex-smoker, quit 2016?? GERD (gastroesophageal reflux disease)?? Guillain-[place] syndrome?? Hematoma of leg?? HIV?? HIV disease?? HLD (hyperlipidemia)?? HTN (hypertension)?? Hypertension?? Hypothyroidism?? PVD (peripheral vascular disease)?? Seizure disorder?? Seizure disorder?? Sepsis?? Skin infection?? Education Materials Below is the list of Educational Leaflet Providered with your Discharge Instructions. Morphine Oral Solution?? Causes of Syncope?? What Is Syncope?? Valuables and Belongings I fully understand and agree that [facility] accepts no responsibility for all my [...] to send valuables and belongings home. ?? Date for Pt to Sign Valuables/Belongings: 09/27/22 03:49:00 ?? Other Discharge Information ? Pulmonary Rehab [...] are strongly encouraged to quit. Please call [facility] [employer] [facility] at [phone] or [phone] ([phone]) or log in to [email or web address] for referrals to smoking cessation programs. ?? The National Suicide Prevention Hotline is available 19/03 if you or someone you know needs to find a reason to keep living. By calling 4-075-013-BizXchange (5774) you'll be connected to a skilled, trained counselor at a crisis center in your area. INPATIENT DISCHARGE INSTRUCTIONS SIGNATURE PAGE CATRACHO MEADOWSJEROME Location:[facility] Registration Date and Time:09/27/2022 15:40 EST Primary Care Physician: Eddy PEREZ, Thomas Locke, I JEROME GONZALEZ, have received the above patient education materials/instructions and haveverbalized understanding. If ambulance or transport services are being used I further acknowledge being given a choice of service. ?? If you need to contact me, please call me at this number: . Patient/Research And Evaluation Analyst Name: Patient/Research And Evaluation Analyst Signature: Relationship to Patient: Witness Name/Signature: Date: * Calvin Sterling MD: PERFORM Event Display: Patient Education Leaflets Authored Date: [id number] Morphine Oral Solution ?? [id number] Morphine Oral Solution Usos Para el dolor. ?? Instrucciones Mida cuidadosamente la dosis de medicina l??quida. Utilice el elemento de medici??n que viene con la medicina. Si no tiene cr, p??vladislav ayuda a cedillo farmac??utico. Laura medicamento se puede agueda con o sin alimentos. Mantenga el medicamento a temperatura ambiente, alejado moe y el calor. Pregunte a cedillo m??dico, enfermero o farmac??utico c??mo desechar de forma barclay los medicamentos sin usar. Para reducir el estre??imiento, consuma alimentos con alto contenido de fibra, alesia marisol agua y kirk ejercicio. Las interacciones con otros medicamentos pueden cambiar la forma en que act??an los medicamentos o aumentar el riesgo de presentar efectos secundarios. Informe a clay profesionales sanitarios acerca de todos los medicamentos que usa. [place] incluye medicamentos con y sin receta m??dica, vitaminas y medicamentos a base de hierbas. Hable con cedillo m??dico o farmac??utico antes de empezar o dejar de usar cualquier medicamento. Informe a cedillo m??dico si clay s??ntomas no mejoran o si empeoran. ?? Precauciones Laura medicamento contiene un opioide. Aunque los opioides ayudan a muchas personas, pueden causar adicci??n, en especial si se usan marie claudia tiempo. El riesgo de adicci??n es mayor si usted padece un trastorno de uso de sustancias (uso excesivo de drogas o alcohol, o adicci??n a estas sustancias). Preg??ntele a cedillo m??dico acerca de los beneficios y los riesgos. Pregunte a cedillo m??dico o a cedillo farmac??utico si usted debe tener naloxona disponible para tratar shawn sobredosis por opioides. Ens?sejal a clay familiares o a las personas que viven con usted a identificar los signos de shawn sobredosis por opioides y c??mo tratarla. Si william de usar laura medicamento repentinamente despu??s de haberlo usado marie claudia tiempo, es posible que tenga s??ntomas de abstinencia. Cedillo m??dico podr??a reducir cedillo dosis lentamente antes de que deje de usarlo. Informe a cedillo m??dico de inmediato si tiene s??ntomas, por ejemplo, sudoraci??n inusual, ojos llorosos, goteo nasal, escalofr??os, diarrea, bostezos, danny musculares, inquietud, ansiedad, problemas para dormir o pensamientos suicidas. Informe a cedillo m??dico y a cedillo farmac??utico si alguna vez piña tenido shawn reacci??n al??rgica a un medicamento. No use el medicamento m??s veces de lo indicado. Laura medicamento puede causar mareos o desmayo, sobre todo despu??s de hacer ejercicio o en clima c??lido. Tenga cuidado cuando se pare o se siente con rapidez. Si es posible, evite el uso con marihuana u otros medicamentos que puedan causar mareos o somnolencia. Entre estos se incluyen productos para tratar alergias o resfr??os, relajantes musculares, medicamentos para ayudar a dormir y medicamentos para aliviar el dolor. Laura medicamento puede afectar cedillo capacidad de mantenerse alerta o de reaccionar con rapidez. No maneje ni opere m??quinas hasta que sepa qu?? efecto le provocar?? laura medicamento. No alesia nada que contenga alcohol mientras use laura medicamento. Laura medicamento pasa a la leche materna. Consulte a cedillo m??dico antes de amamantar. Laura medicamento puede causar da??os a un beb?? en el ??tero. Si queda embarazada mientras usa estemedicamento, av??theresa a cedillo m??dico de inmediato. El m??dico puede cambiar el medicamento por otro diferente. Los pacientes con dificultades de respiraci??n deben usar laura medicamento con precauci??n. Llame a cedillo m??dico inmediatamente si observa que la respiraci??n es lenta o superficial. No comparta laura medicamento con otras personas a quienes no se les recet??. Algunos pacientes presentan efectos secundarios graves con laura medicamento. P??vladislav a cedillo farmac??utico que le muestre la informaci??n de la Administraci??n de Alimentos y Medicamentos (FDA) y que laanalice con usted. ?? Efectos Secundarios La siguiente es shawn lista de algunos efectos secundarios comunes de laura medicamento. Hable con el m??dico para saber qu?? debe hacer en shubham de tener estos u otros efectos secundarios. ??? estre??imiento ??? mareos o aturdimiento ??? mareo ??? n??useas y v??mitos Llame al m??dico u obtenga atenci??n m??dica de inmediato si nota cualquiera de estos efectos secundarios m??s graves: ??? p??rdida de apetito ??? reducci??n del nivel de conciencia o de las reacciones ??? interrupci??n de la respiraci??n marie el nidhi??o ??? respiraci??n r??pida e irregular ??? confusi??n ??? desmayo ??? alucinaciones (pensamientos extra??os, naldo u o??r cosas que no son reales) ??? cambios de esta do de ??mery ??? convulsiones ??? dolor intenso del est??lion o las v??as digestivas ??? cansancio o debilidad, extra??o o sin causa aparente ??? dificultad o molestia al orinar ??? p??rdida de peso Algunas personas podr??an tener reacciones al??rgicas a laura medicamento. Entre los s??ntomas pueden incluirse: dificultad para respirar, erupci??n en la piel, comez??n, hinchaz??n o mareos intensos.Si nota algunos de estos s??ntomas, busque asistencia m??dica r??pidamente. ?? Extra Hable con cedillo m??dico, enfermero o farmac??utico si tiene alguna pregunta acerca de laura medicamento. ?? [email or web address] NOTA IMPORTANTE: En laura documento hay shawn explicaci??n breve sobre c??mo usar el medicamento, perono incluye todo lo que hay que saber acerca del medicamento. Cedillo m??dico o cedillo farmac??utico podr??a suministrarle otros documentos acerca de cedillo medicamento. Comun??quese con ellos si tiene alguna pregunta. Siga siempre clay consejos. Shawn descripci??n m??s completa de laura medicamento est?? disponibleen ingl??s. Escanee laura c??digo en cedillo tel??fono inteligente o en cedillo tableta, o use la direcci??n web que aparece a continuaci??n. Tambi??n puede pedirle a cedillo farmac??utico shawn copia impresa. Si tiene alguna pregunta, h??gasela a cedillo farmac??utico. La exhibici??n y el uso de esta informaci??n sobre f??rmacos est?? sujeta a los T??rminos de [employer]. Copyright(c) 2021 [employer] ?? 7433-4215 [employer]. All rights reserved. This information is not intended as a substitute for professional medical care. Always follow your healthcare professional's instructions. ?? * Calvin Sterling MD: PERFORM Event Display: Patient Education Leaflets Authored Date: [id number] Causes of Syncope ?? 334[address] Causas de un s??ncope El s??ncope (desmayo) tiene causas diversas. En ocasiones, no es grave. Sin embargo, en algunos casos, puede ser shawn se??al de problemas card??acos. Afortunadamente, se puede tratar. How to say it [id number] ?? Cuando el s??ncope no es grave La mayor??a de las causas del s??ncope no son graves y pueden estar relacionadas a lo siguiente: ??? Emociones sheridan, pau ansiedad o miedo. Shawn se??al nerviosa puede cambiar brevemente la frecuencia card??carol y bajar demasiado la presi??n arterial. ??? Estar de pie demasiado tiempo. Estar paradopuede causar acumulaci??n de jarred en las piernas. Cuando esto sucede, el cerebro puede tener un flujo sangu??david insuficiente. ??? Ponerse de pie demasiado r??pido. La presi??n arterial puede no ajustarse con la velocidad necesaria a los cambios de postura y la presi??n puede bajar demasiado. Algunos medicamentos tambi??n pueden causar laura problema. Algunos de los medicamentos que pueden disminuir la presi??n arterial son los diur??ticos, los medicamentos para la presi??n arterial y para el dolor en el pecho. ??? Reacciones a funciones normales del cuerpo. El coraz??n puede disminuir la presi??n arterial pau acto reflejo cuando va al ba??o, tiene molestias gastrointestinales o malestar estomacal (n??useas), o siente dolor. [place] puede derivar en un s??ncope. El s??ncope tambi??n puede ocurrir luego de ejercitar, comer, re??r, levantar objetos pesados o tocar instrumentos musicales pau la trompeta o el tromb??n. ?? Cuando el s??ncope es causado por problemas del coraz??n Un problema card??aco puede disminuir la cantidad de jarred randell en ox??mason que llega el cerebro. Sin tratamiento, el problema del coraz??n puede ser grave e incluso potencialmente mortal. Algunas de estas afecciones incluyen lo siguiente: ??? Frecuencia card??carol lenta. Las se??ales el??ctricas les indican a las c??maras del coraz??n cu??ndo bombear jarred. Cristina estas se??ales pueden desacelerar o bloquearse (bloqueo card??aco) mientras viajan por las v??as el??ctricas del coraz??n. [place] puede ser debido a la edad, a la presencia de tejido cicatrizado en el coraz??n o a da??os causados por enfermedades del coraz??n. Cuando la frecuencia card??carol se hace m??s lenta, no se bombea jarred suficiente. ??? Frecuencia card??carol acelerada. Determinadas situaciones pueden hacer que el coraz??n se acelere. Por ejemplo, un ataque al coraz??n puede generar se??ales el??ctricas anormales. Estas se??ales pueden hacer que el coraz??n latamuy r??pido de repente. El coraz??n comienza a bombear antes de que clay cavidades puedan llenarse de jarred correctamente. Por lo tanto, llega menos jarred al cerebro y a otras partes del cuerpo. [place], determinados medicamentos, las enfermedades del coraz??n o shawn afecci??n hereditaria tambi??n pueden causar laura problema. ??? Problema de las v??lvulas card??acas. La jarred circula a angela??s de las c??maras del coraz??n a medida que bombea. Las v??lvulas del coraz??n se abren y se cierranpara que la jarred circule en la direcci??n correcta. Sin embargo, podr??a ocurrir que shawn v??lvulano se abel o no se cierre por completo, si est?? endurecida o cicatrizada. [place] resulta en shawn disminuci??n de la jarred que pasa por el coraz??n para llegar al cerebro y al cuerpo. Por lo general, el s??ncope ocurre cuando la v??lvula a??rtica se estrecha y la persona hace actividades intensas. ??? Problema del m??sculo card??aco. Algunas personas tienen el m??sculo card??aco engrosado, lo que bl oquea el flujo sangu??david del coraz??n hacia el martha del cuerpo (esto se denomina miocardiopat??a hipertr??fica). Estar deshidratado y tener esta afecci??n pueden aumentar el riesgo de sufrir un s??ncope. ??? Problema cardiovascular. Los co??gulos de jarred en los pulmones, el aumento de la presi??n arterial en los vasos de los pulmones o las lesiones en las lassiter de los vasos tambi??n pueden impedir el flujo adecuado de jarred oxigenada al cerebro. Cualquiera sea la causa del s??ncope, es importante que consulte con cedillo proveedor de atenci??n m??dica. Incluso solo vez necesite consultar a un cardi??logo o un neur??logo. Si tiene un s??ncope y a??n no lo piña consultado con un proveedor, es importante que: ??? No conduzca ??? No opere maquinaria pesada ??? No kirk actividades en las que pueda caerse y lesionarse ?? Last Reviewed Date: 2021 ?? [id number] [employer]. Todos los derechos reservados. Esta informaci??n no pretende sustituir la atenci??n m??dica profesional. S??lo cedillo m??dico puede diagnosticar y tratar un problema de rock. ?? * Calvin Sterling MD: PERFORM Event Display: Patient Education Leaflets Authored Date: [id number] What Is Syncope ?? 30072 ??Qu?? es un s??ncope? El s??ncope tambi??n [...] yla presi??n arterial se ajustan para que laura flujo sea torres marie la realizaci??n de [...] advertencia de problemas m??s graves. Por eso, cedillo proveedor de atenci??n m??dica puede realizarle varias pruebas para analizar cedillo ritmo card??aco y cedillo funci??n card??carol. Hable con cedillo proveedor de atenci??n m??dica si tuvo un [...] lesiones. ?? Last Reviewed Date: 2018 ?? [id number] [employer]. Todos los derechos reservados. Esta informaci??n no pretende sustituir la atenci??n m??dica profesional. S??lo cedillo m??dico puede diagnosticar y tratar un problema de rock. ?? * CANDACE Wheatley S: TRANSCRIDada Preston MD: VERIFY Event Display: Result: Authored Date: [id number] US Doppler Ext Lower Venous Left Reason: Pain Tenderness Extremities; Clinical Question(s): Thrombus COMPARISON: None IMAGING TECHNIQUE: Ultrasound of the veins from the groin through the calf was performed using grayscale, color, and spectral Doppler ultrasound assessing for complete compressibility and normal flowcharacteristics. FINDINGS: Common femoral vein: Patent. No thrombosis. Femoral vein: Nonocclusive thrombus throughout the femoral vein. Popliteal vein: Nonocclusive thrombus seen. Gastrocnemius veins: The visualized portions are patent without evidence of thrombosis. Peroneal veins: Nonocclusive thrombus in the peroneal veins. Posterior tibial veins: The visualized portions are patent without evidence of thrombosis. Contralateral common femoral vein: Patent. No thrombosis. OTHER FINDINGS: None. IMPRESSION: Apparent progression of nonocclusive thrombus in the left leg compared to 09/17/2022. A critical result message (Red) has been communicated via the [employer] on 09/27/2022 7:58 PM, Message ID [id number]. WSN: [id number] Ordering Physician: Calvin Sterling Dictated By: Dada Paiz MD Dictated Date/Time: 09/27/22 7:58 pm Reviewed By: Dada Paiz MD Signed By: Dada Paiz MD Signed Date/Time: 09/27/22 7:58 pm Transcribed By: LOGAN Transcribed Date/Time: 09/27/22 7:56 pm * CANDACE Wheatley S: TRANSCRIGEOFF Corey MD, Martin: VERIFY Taryn Phelps DO F: SIGN Event Display: Result: Authored Date: [id number] Chest 2 Views Frontal and Lat REASON: Chest Pain COMPARISON: Multiple priors, most recent 09/17/2022. FINDINGS: LINES AND TUBES: None. LUNGS AND PLEURA: Clear lungs. Normal pulmonary vascularity. No pleural effusion. No pneumothorax. HEART, MEDIASTINUM AND BRONSON: Heart is normal in size. Normal mediastinal and hilar contour. BONES AND SOFT TISSUES: No acute abnormality. Surgical clips in the right upper quadrant, likely related to prior cholecystectomy. IMPRESSION: No acute abnormality. I have personally reviewed the images and I agree with this report. WSN: [id number] Ordering Physician: Elva Garner Dictated By: Taryn Phelps DO Dictated Date/Time: 09/26/22 4:03 pm Reviewed By: Martin Corey MD Signed By: Martin Corey MD Signed Date/Time: 09/26/22 4:08 pm Transcribed By: LOGAN Transcribed Date/Time: 09/26/22 3:[address] Head WO contrast * [facility] , CIS S: TRANSCRIBE Helio MG, Nazanin: VERIFY Event Display: Result: Authored Date: [id number] CT Head/Brain W/O Contrast INDICATION: Hx of Present Illness: Pts significant other present via facetime, states he stood up and became dizzy and passed out , caught by significant other, no head strike. +LOC x5 minutes and became very tremulous after. Pt c o bilateral leg and abd pain. Hx of AAA, c o abd pain; Reason: Seizure Disorder; Clinical Question(s): Hematoma; Order Comment: TECHNIQUE: Noncontrast head CT using axial technique and reconstructed in axial and coronal planes.Iterative reconstruction techniques are used to optimize dose and image quality. CTDIvol Head: 47.90 mGy, DLP Head: 773 mGy*cm. COMPARISON: 09/11/2022. FINDINGS: Plant Science Professor view findings, lines and tubes: None. BRAIN AND EXTRA-AXIAL SPACES: No parenchymal hemorrhage, midline shift, or mass effect. Suazo-white matter differentiation is wellpreserved. No acute infarct. Mild prominence of the ventricles and sulci consistent with parenchymal volume loss, more than expected for age. Mild low-density white matter changes. No subarachnoid hemorrhage. No subdural or epidural collection. CALVARIUM, SKULL BASE, AND SOFT TISSUES: No fractures or suspicious bony lesions. The paranasal sinuses and mastoid air cells are clear. Visualized orbits and globes are intact. The extracranial soft tissues are unremarkable. IMPRESSION: No acute intracranial pathology. WSN: [id number] Ordering Physician: Dung Pichardo MD Dictated By: Nazanin Cadet MD Dictated Date/Time: 09/26/22 5:10 pm Reviewed By: Nazanin Cadet MD Signed By: Nazanin Cadet MD Signed Date/Time: 09/26/22 5:10 pm Transcribed By: LOGAN Transcribed Date/Time: 09/26/22 5:07 pm CTA Abdominal vessels and Pelvis vessels W contrast IV * [facility] , CIS S: TRANSCRIBE Nazanin Cadet MD: VERIFY Dmitry Dawn MD A: SIGN Event Display: Result: Authored Date: [id number] EXAMINATION: CT Angio Chest, CT Angio Abdomen and Pelvis INDICATION: Pt's significant other present via facetime, states he stood up and became dizzy and passed out , caught by significant other, no head strike. +LOC x5 minutes and became very tremulous after. Pt c o bilateral leg and abd pain. Hx of AAA, c o abd pain; Reason: Aortic disease, nontraumatic; Clinical Question(s): AAA TECHNIQUE: Spiral CTA of the chest, abdomen, and pelvis was performed after rapid IV contrast administration without cardiac gating triggered by an HOLLY on the aorta. Images are formatted in multiple planes using 2-D multiplanar and 3-D maximum intensity projection. 100 cc of Omnipaque 300 was administered intravenously. Weight-based protocol using automatic tube modulation was used to optimize exposure parameters. CTDIvol Body: 8.90 mGy, DLP Body: 580 mGy*cm. COMPARISONS: CT chest, abdomen and pelvis from 08/02/2022. ANGIOGRAPHIC FINDINGS: No aortic dissection or aneurysm. Normal three vessel arch without branch vessel stenosis. Pulmonary arteries are normal in caliber. No evidence of central pulmonary embolism on this study performed without dedicated technique. Abdominal aorta: No aortic aneurysm or dissection. There is a juxtarenal aortobiiliac stent in place. Excluded aorta is not aneurysmal and measures up to 2.2 cm in caliber. The upper end extends justabove the level of the superior mesenteric artery. Both limbs are patent and terminate just above the bifurcation of the common iliac arteries. Celiac axis: Patent. Superior mesenteric artery: One of the struts of the upper parts of the aortic stent minimally narrows the origin of the superior mesenteric artery. Right renal artery: Single right renal artery is normal. Left renal artery: Single left renal artery is likely narrowed at its origin, unchanged since the prior study. Inferior mesenteric artery: The origin is difficult to assess and is probably occluded. The remainder of the RAMANA is patent. Visualized iliac arteries: Common iliac arteries are patent with a stent graft. 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 Trachea and Airways: Patent without evidence of tracheal or endobronchial lesion. Lungs and Pleura: Clear lungs. Bilateral subcentimeter calcified granulomas. No effusion or pneumothorax. Mediastinum and bronson: No mass or hematoma. No mediastinal or hilar lymphadenopathy. No esophageal abnormality. Heart: Heart is normal in size. No pericardial effusion. Chest Wall Soft Tissues: Normal. Diaphragm and upper abdomen: No significant abnormality. Liver: Normal. Gallbladder: Absent consistent with prior cholecystectomy. Bile ducts: No biliary ductal dilation. Spleen: Normal in morphology and attenuation. Calcified subcentimeter granulomas in the parenchyma suggesting prior granulomatous disease. Pancreas: Mildly atrophic. Adrenal glands: Normal. Kidneys and ureters: No hydronephrosis, stones, or suspicious masses. Small focus of scarring in the right kidney lower pole. Bladder: Normal. Reproductive organs: There is fat stranding around the seminal vesicles and prostate gland. Stomach, small bowel, and large bowel: Visualized stomach and bowel are normal in caliber. No evidence of bowel obstruction. There is a rectosigmoid anastomosis without evidence of complication. Appendix: Not visualized. Peritoneum and retroperitoneum: No ascites or pneumoperitoneum. No omental or mesenteric lesions. Lymph nodes: No enlarged lymph nodes. Abdominal and pelvic wall: Small fat-containing umbilical hernia. There are subcutaneous injection granulomas and a few foci of gas. Bones: No acute abnormality. IMPRESSION: 1. No aortic aneurysm or dissection. Juxtarenal aorta biiliac stent in place without associated aneurysm. 2. Fat stranding around the seminal vesicles and prostate gland could indicate prostatitis. A critical result message ([place]) has been communicated via the [employer] system on 09/26/2022 8:26 PM, Message ID [id number]. I have personally reviewed the images and I agree with this report. WSN: [id number] Ordering Physician: Rosy Gotti Dictated By: Dmitry Dawn MD Dictated Date/Time: 09/26/22 8:26 pm Reviewed By: Nazanin Cadet MD Signed By: Nazanin Cadet MD Signed Date/Time: 09/26/22 8:31 pm Transcribed By: LOGAN Transcribed Date/Time: 09/26/22 8:09 pm CTA Chest vessels W contrast IV * [facility] , CIS S: TRANSCRIBE Nazanin Cadet MD: VERIFY Dmitry Dawn MD: SIGN Event Display: Result: Authored Date: [id number] EXAMINATION: CT Angio Chest, CT Angio Abdomen and Pelvis INDICATION: Pt's significant other present via facetime, states he stood up and became dizzy and passed out , caught by significant other, no head strike. +LOC x5 minutes and became very tremulous after. Pt c o bilateral leg and abd pain. Hx of AAA, c o abd pain; Reason: Aortic disease, nontraumatic; Clinical Question(s): AAA TECHNIQUE: Spiral CTA of the chest, abdomen, and pelvis was performed after rapid IV contrast administration without cardiac gating triggered by an HOLLY on the aorta. Images are formatted in multiple planes using 2-D multiplanar and 3-D maximum intensity projection. 100 cc of Omnipaque 300 was administered intravenously. Weight-based protocol using automatic tube modulation was used to optimize exposure parameters. CTDIvol Body: 8.90 mGy, DLP Body: 580 mGy*cm. COMPARISONS: CT chest, abdomen and pelvis from 08/02/2022. ANGIOGRAPHIC FINDINGS: No aortic dissection or aneurysm. Normal three vessel arch without branch vessel stenosis. Pulmonary arteries are normal in caliber. No evidence of central pulmonary embolism on this study performed without dedicated technique. Abdominal aorta: No aortic aneurysm or dissection. There is a juxtarenal aortobiiliac stent in place. Excluded aorta is not aneurysmal and measures up to 2.2 cm in caliber. The upper end extends justabove the level of the superior mesenteric artery. Both limbs are patent and terminate just above the bifurcation of the common iliac arteries. Celiac axis: Patent. Superior mesenteric artery: One of the struts of the upper parts of the aortic stent minimally narrows the origin of the superior mesenteric artery. Right renal artery: Single right renal artery is normal. Left renal artery: Single left renal artery is likely narrowed at its origin, unchanged since the prior study. Inferior mesenteric artery: The origin is difficult to assess and is probably occluded. The remainder of the RAMANA is patent. Visualized iliac arteries: Common iliac arteries are patent with a stent graft. 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 Trachea and Airways: Patent without evidence of tracheal or endobronchial lesion. Lungs and Pleura: Clear lungs. Bilateral subcentimeter calcified granulomas. No effusion or pneumothorax. Mediastinum and bronson: No mass or hematoma. No mediastinal or hilar lymphadenopathy. No esophageal abnormality. Heart: Heart is normal in size. No pericardial effusion. Chest Wall Soft Tissues: Normal. Diaphragm and upper abdomen: No significant abnormality. Liver: Normal. Gallbladder: Absent consistent with prior cholecystectomy. Bile ducts: No biliary ductal dilation. Spleen: Normal in morphology and attenuation. Calcified subcentimeter granulomas in the parenchyma suggesting prior granulomatous disease. Pancreas: Mildly atrophic. Adrenal glands: Normal. Kidneys and ureters: No hydronephrosis, stones, or suspicious masses. Small focus of scarring in the right kidney lower pole. Bladder: Normal. Reproductive organs: There is fat stranding around the seminal vesicles and prostate gland. Stomach, small bowel, and large bowel: Visualized stomach and bowel are normal in caliber. No evidence of bowel obstruction. There is a rectosigmoid anastomosis without evidence of complication. Appendix: Not visualized. Peritoneum and retroperitoneum: No ascites or pneumoperitoneum. No omental or mesenteric lesions. Lymph nodes: No enlarged lymph nodes. Abdominal and pelvic wall: Small fat-containing umbilical hernia. There are subcutaneous injection granulomas and a few foci of gas. Bones: No acute abnormality. IMPRESSION: 1. No aortic aneurysm or dissection. Juxtarenal aorta biiliac stent in place without associated aneurysm. 2. Fat stranding around the seminal vesicles and prostate gland could indicate prostatitis. A critical result message ([place]) has been communicated via the [employer] system on 09/26/2022 8:26 PM, Message ID [id number]. I have personally reviewed the images and I agree with this report. WSN: [id number] Ordering Physician: Rosy Gotti Dictated By: Dmitry Dawn MD Dictated Date/Time: 09/26/22 8:26 pm Reviewed By: Nazanin Cadet MD Signed By: Nazanin Cadet MD Signed Date/Time: 09/26/22 8:31 pm Transcribed By: LOGAN Transcribed Date/Time: 09/26/22 8:09 pm Patient Care team information Care Team Personnel Name: Joaquina Jerome RN Position: [facility] RN Member Role: Primary Care Nurse Name: Joselyn Sevilla RN Position: S RN Member Role: Primary Care Nurse Name: Thomas Bright Position: [facility] Outreach Member Role: PCP Address: Address: [address] [place] [address] Name: Karmen Mandujano RN Position: [facility] Rad RN Member Role: Primary Care Nurse Name: Margie Castanon RN Position: [facility] RN Member Role: Primary Care Nurse Name: Susy Castaneda RN Position: [facility] RN Member Role: Primary Care Nurse Name: Justin Dailey MD Position: [facility] Infectious Disease MD Member Role: Lifetime Consulting Physician Address: Address: [address] [place] [address] Infectious [address] Name: Sophia Bell RN Position: [facility] [...] Care Nurse Name: Fang Adams RN Position: [facility] Hospital Manager Hospitality Member Role: Primary Care Nurse Name: Karri Jaramillo RN Position: [facility] RN Member Role: Primary Care Nurse Name: Consuelo Alvarenga RN Position: [facility] RN Member Role: Primary Care Nurse Name: Veronica Blanco RN Position: [facility] DANIELLEO RN Member Role: Primary Care Nurse [...] Care Nurse Name: Elle Blackwood RN Position: [facility] Hospital Manager Hospitality Member Role: Primary Care Nurse Name: Yamilex [...] Member Role: Primary Care Nurse Name: Luz Mairna Byrd RN [facility]: [facility] Care Nurse Name: Vee Mcnamara RN Position: [facility] Hospital Manager Hospitality Member Role: Primary Care Nurse Name: Nisreen [...] RN Member Role: Primary Care Nurse Name: Estfeanía Austin RN [facility]: [facility] RN Member Role: Primary Care Nurse Name: Hernando NATH Attending Position: [facility] ED Medicine MD Name: Atiya Reyna RN Position: [facility] ED RN W/OE and Tasks Member Role: Patient Care Provider Care Team Related Persons Name: SUSY MEADOWS Address: [address] [place] [address] Name: YOANDY TAYLOR Address: home [address] [address]
--- OUTSIDE RECORDS SUMMARY | 2023-02-21 14:51 | XMS_ITS | Continuity of Care Document ---
Author Name Unknown Organization [facility] Address [address] [place] [address]- Care Team Providers Care Tin Whiz Machine Operator Name Role Phone Thomas Bright Primary Care Physician Encounter [facility] Date(s): 11/18/19 - 11/28/19 [facility] [address] [place] [address] [facility] Attending Physician: Román Adams Admitting Physician: AdmRomán colón Referring Physician: AdmtrRomán Allergies, Adverse Reactions, Alerts Substance Reaction Severity Status Lamictal Hives, itch Active Tegretol Hallucinations, aggression A ctive Tylenol itching Active influenza virus vaccine, inactivated 1 Active oxyCODONE Persistent Mild Active Lobster Persistent Severe Active Percocet 7.5/325 2 C/O: itching Active traMADol Active 1Hx of Guillain - [place] 2makes pt itchy Immunizations Given and Recorded Vaccine Date Status Refusal Reason pneumococcal 23-valent vaccine 02/03/17 Given Not Given Vaccine Date Status Refusal Reason pneumococcal 23-valent vaccine 01/25/17 Not Given Patient Refuses Medications atorvastatin 80 mg oral tablet 1 tablet = 80 mg, By Mouth, Daily, # 30 tablet, 0 Refills, Maintenance, Tablet, Route to Pharmacy Electronically, [id number], [facility] Start Date: 04/02/18 [...] 0 Refills,Maintenance, 10/14/19 23:05:00 EST, DIS Tablet, [facility]/pharmacy #[id number], 175, cm, 09/12/19 10:20:00 EST,Height, [...] ant GERD (gastroesophageal reflu x disease)(Confirmed) Active 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
--- OUTSIDE RECORDS SUMMARY | 2023-02-21 14:51 | XMS_ITS | Continuity of Care Document ---
Author Name Unknown Organization [facility] Address [address] [place] [address]- Care Team Providers Care Morning Show Host Name Role Phone Thomas Bright Primary Care Physician [phone] [place] [facility] Date(s[place] 01/03/21 - 01/03/[address] [address]- Discharge Disposition: A-D/C Walkout Attending Physician: Not [...] C/O: itching Active 1Hx of Guillain - [place] 2makes pt itchy Immunizations Given and Recorded Vaccine Date Status Refusal Reason pneumococcal 23-valent vaccine 02/03/17 Given Not Given Vaccine Date Status Refusal Reason pneumococcal 23-valent vaccine 01/25/17 Not Given Patient Refuses Medications aspirin 81 mg oral delayed release tablet See Instructions, [facility], # 30 tablet, 1 Refills, Maintenance, [id number], 175, cm, 02/26/20 14:11:00 EDT, Height, 87.5, kg, 02/26/20 14:11:00 EDT, Dry Weight Start Date: 04/12/20 Status: Ordered atorvastatin 80 mg oral tablet 1 tablet = 80 mg, By Mouth, Daily, # 30 tablet, 0 Refills, Maintenance, Tablet, Route to Pharmacy Electronically, [id number], [facility] Start Date: 04/02/18 Stop Date: [...] 0 Refills, Maintenance, 10/22/20 8:48:00 EST, Gel, [facility]/pharmacy #[id number], Partial fill upon patient request if [...] 10/22/20 8:48:00 EST, Route to Pharmacy Electronically, [facility]/pharmacy #[id number], Partial fill upon patient request if [...] 0 Refills, Maintenance, 10/29/20 9:13:00 EST, Tablet, [facility]/pharmacy #[id number], Partial fill upon patient request if the prescription is for a schedule II opioid drug., 175, cm, 10/28/20 10:07:00 EST, Height, 8... 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 Hematoma of leg(Confirmed) Active HIV disease(Confirmed) 2002 Active Hypercholesterolemia(Confirmed) 2005 Active HLD (hyperlipidemia)(Confirmed) Active HTN (hypertension)(Confirmed) Active Hypothyroidism(Confirmed) Active Skin infection(Confirmed) Active PVD (peripheral vascular disease)(Confirmed) Active 1sequelae, left sided weakness Vital Signs Most recent to oldest [Reference Range]: 1 2 Height 175 cm (01/03/21 4:35 PM) 175 cm (01/03/21 3:26 PM) Weight 83 kg (01/03/21 4:35 PM) 83 kg (01/03/21 3:26 PM) Oxygen Saturation [94-100 %] 99 % (01/03/21 3:26 PM) 100 % (01/03/21 2:25 PM) Pulse Rate [55-90 bpm] 76 bpm (01/03/21 3:26 PM) 62 bpm (01/03/21 2:25 PM) Body Mass Index [18.5-24.99] 27.1 *H* (01/03/21 3:26 PM) Blood Pressure [90-138/55-84 mm Hg] 127/ 89mm Hg (01/03/21 3:26 PM) Respiratory Rate [16-30 br/min] 18 br/mi n (01/03/21 3:26 PM) Temperature [96.8-100.4 DegF] 98.2 DegF (01/03/21 3:26 PM) Mode of Delivery (Oxygen) Room air (01/03/21 3:26 PM) Room air (01/03/21 2:25 PM) Blood pressure sites Arm, left (01/03/21 3:26 PM) Temperature Route Oral (01/03/21 3:26 PM) Dry Weight 83 kg (01/03/21 4:35 PM) 83 kg (01/03/21 3:26 PM) Weight Obtained Via Patient/family state d (01/03/21 3:26 PM) Dry Weight Obtained Via Patient/family s tated (01/03/21 3:26 PM) Social History Social History Type Response Smoking Status Former smoker; Tobac co user in household: No; Type: Cigarettes; Other: quit in july 2016; Tobacco use times per day: half pack per day; Started at age: 11; entered on: 05/29/18 Sex
--- OUTSIDE RECORDS SUMMARY | 2023-02-21 14:51 | XMS_ITS | Continuity of Care Document ---
Author Name Unknown Organization [facility] Address [address] [place] [address]- Care Team Providers Care Backend Java Developer Name Role Phone Thomas Bright Primary Care Physician Encounter [facility] Date(s): 12/06/21 - 12/06/[address] [address]- Discharge Disposition: A-D/C Home Attending Physician: Smooth Mera MD Admitting Physician: Smooth Mera MD Referring Physician: Not on Staff, Referring MD Allergies, Adverse Reactions, Alerts Substance Reaction Severity Status Lamictal Hives, itch Active Tegretol Hallucinations, aggression A ctive oxyCODONE Persistent Mild Active Tylenol itching Active Lobster Persistent Severe Active Percocet 7.5/325 1 C/O: itching Active influenza virus vaccine, inactivated 2 Active traMADol Active 1makes pt itchy 2Hx of Guillain - [place] Immunizations Given and Recorded Vaccine Date Status Refusal Reason pneumococcal 23-valent vaccine 02/03/17 Given Not Given Vaccine Date Status Refusal Reason pneumococcal 23-valent vaccine 01/25/17 Not Given Patient Refuses Medications atorvastatin 80 mg oral tablet 1 tablet = 80 mg, By Mouth, Daily, # 30 tablet, 0 Refills, Maintenance, Tablet, Route to Pharmacy Electronically, [id number], [facility] Start Date: [...] Moderate, and SBP greater than 100, Routine, 12/06/21 17:21:00 EDT, Stop date Limited # of times Start Date: 12/06/21 Status: Ordered ondansetron 4 mg oral tablet, disintegrating 1 tablet = 4 mg, By Mouth, Every 8 hours, PRN as needed for nausea/vomiting, # 10 tablet, 0 Refills, Maintenance, 10/15/21 21:12:00 EST, DIS Tablet, [facility]/pharmacy #[id number], Partial fill upon patient request if the [...] Active GERD (gastroesophageal reflu x disease)(Confirmed) Active 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 Hematoma of leg(Confirmed) Active HIV disease(Confirmed) 2002 Active HLD (hyperlipidemia)(Confirmed) Active HTN (hypertension)(Confirmed) Active Hypothyroidism(Confirmed) Active Skin infection(Confirmed) Active PVD (peripheral vascular disease)(Confirmed) Active 1sequelae, left sided weakness Vital Signs Most recent to oldest [Reference Range]: 1 2 3 Oxygen Saturation [94-100 %] 100 % (12/06/21 9:44 PM) 100 % (12/06/21 7:49 PM) 100 % (12/06/21 1:46 PM) Pulse Rate [55-90 bpm] 89 bpm (12/06/21 9:44 PM) 87 bpm (12/06/21 7:49 PM) 88 bpm (12/06/21 1:46 PM) Blood Pressure [90-138/55-84 mm Hg] 104/77mm Hg (12/06/21 9:44 PM) 109/64mm Hg (12/06/21 7:49 PM) 121/94mm Hg (12/06/21 1:46 PM) Respiratory Rate [16-30 br/min] 18 br/min (12/06/21 9:44 PM) 16 br/min (12/06/21 7:49 PM) 18 br/min (12/06/21 4:53 PM) Temperature [96.8-100.4 DegF] 98.7 DegF (12/06/21 9:44 PM) 98.5 DegF (12/06/21 11:48 AM) Mode of Delivery (Oxygen) Room air (12/06/21 9:44 PM) Room air (12/06/21 7:49 PM) Room air (12/06/21 1:46 PM) Blood pressure sites Arm, right (12/06/21 11:48 AM) Temperature Route Oral (12/06/21 9:44 PM) Oral (12/06/21 11:48 AM) Social History Social History Type Response Smoking Status Never (less than 100 in lifetime) entered on: 10/25/21 Sex
--- OUTSIDE RECORDS SUMMARY | 2023-02-21 14:51 | XMS_ITS | Continuity of Care Document ---
Author Name Unknown Organization [facility] Address [address] [place] [address]- Care Team Providers Care Cancer Genetics Assistant Name Role Phone Thomas Bright Primary Care Physician Encounter [facility] Date(s): 05/08/22 - 05/09/[address] [address]- Discharge Disposition: A-D/C Walkout Attending Physician: Not [...] pt itchy 2Hx of Guillain - [place] Immunizations Given and Recorded Vaccine Date Status Refusal Reason pneumococcal 23-valent vaccine 02/03/17 Given Not Given Vaccine Date Status Refusal Reason pneumococcal 23-valent vaccine 01/25/17 Not Given Patient Refuses Medications atorvastatin 80 mg oral tablet 1 tablet = 80 mg, By Mouth, Daily, # 30 tablet, 0 Refills, Maintenance, Tablet, Route to Pharmacy Electronically, [id number], [facility] Start Date: 04/02/18 Stop [...] Refills, Maintenance, 10/15/21 21:12:00 EST, DIS Tablet, [facility]/pharmacy #[id number], Partial fill upon patient request if the [...] Active GERD (gastroesophageal reflu x disease)(Confirmed) Active 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 Hematoma of leg(Confirmed) Active HIV disease(Confirmed) 2002 Active HLD (hyperlipidemia)(Confirmed) Active HTN (hypertension)(Confirmed) Active Hypothyroidism(Confirmed) Active Skin infection(Confirmed) Active PVD (peripheral vascular disease)(Confirmed) Active 1sequelae, left sided weakness Results Radiology Reports * Exam Date Time Procedure Performing Provider Status 05/08/22 3:17 PM Chest 2 Views Frontal and Lat Trinity Leavitt; Emeli (Verified) Notes: (Chest 2 Views Frontal and Lat) Reason For Exam: Chest Pain;Other: RESULT: Chest 2 Views Frontal and Lat Chest 2 Views Frontal and Lat REASON: Chest pain since one week with cough COMPARISON: CT angiogram 05/01/2022, chest x-ray 04/13/2022, FINDINGS: LINES AND TUBES: None. LUNGS AND PLEURA: Clear lungs. Normal pulmonary vascularity. No pleural effusion. No pneumothorax. HEART, MEDIASTINUM AND [place]: Heart is normal in size. Normal upper mediastinal and hilar contour. BONES AND SOFT TISSUES: No acute abnormality. IMPRESSION: No acute cardiopulmonary process. I have personally reviewed the images and I agree with this report. WSN: [id number] Ordering Physician: Drew Ochoa Dictated By: Chris Marie MD Dictated Date/Time: 05/08/22 3:34 pm Reviewed By: Reji Valera MD Signed By: Reji Valera MD Signed Date/Time: 05/08/22 3:39 pm Transcribed By: LOGAN Transcribed Date/Time: 05/08/22 3:30 pm Vital Signs Most recent to oldest [Reference Range]: 1 2 3 Oxygen Saturation [94-100 %] 99 % (05/08/22 5:58 PM) 99 % (05/08/22 2:22 PM) 100 % (05/08/22 1:59 PM) Pulse Rate [55-90 bpm] 80 bpm (05/08/22 5:58 PM) 74 bpm (05/08/22 2:22 PM) 73 bpm (05/08/22 1:59 PM) Blood Pressure [90-138/55-84 mm Hg] 112/71mm Hg (05/08/22 5:58 PM) 115/72mm Hg (05/08/22 2:22 PM) Respiratory Rate [16-30 br/min] 18 br/min (05/08/22 5:58 PM) 16 br/min (05/08/22 2:22 PM) 18 br/min (05/08/22 1:59 PM) Temperature [96.8-100.4 DegF] 98.0 DegF (05/08/22 5:58 PM) 98.3 DegF (05/08/22 2:22 PM) Mode of Delivery (Oxygen) Room air (05/08/22 5:58 PM) Room air (05/08/22 2:22 PM) Room air (05/08/22 1:59 PM) Blood pressure sites Arm, left (05/08/22 5:58 PM) Temperature Route Oral (05/08/22 5:58 PM) Oral (05/08/22 2:22 PM) Social History Social History Type Response Smoking Status Never (less than 100 in lifetime) entered on: 10/25/21 Sex Note * [facility] , CIS S: TRANSCRIBE Reji Valera MD: VERIFY Chris Marie MD: SIGN Event Display: Result: Authored Date: [id number] Chest 2 Views Frontal and Lat REASON: Chest pain since one week with cough COMPARISON: CT angiogram 05/01/2022, chest x-ray 04/13/2022, FINDINGS: LINES AND TUBES: None. LUNGS AND PLEURA: Clear lungs. Normal pulmonary vascularity. No pleural effusion. No pneumothorax. HEART, MEDIASTINUM AND [place]: Heart is normal in size. Normal upper mediastinal and hilar contour. BONES AND SOFT TISSUES: No acute abnormality. IMPRESSION: No acute cardiopulmonary process. I have personally reviewed the images and I agree with this report. WSN: [id number] Ordering Physician: Drew Ochoa Dictated By: Chris Marie MD Dictated Date/Time: 05/08/22 3:34 pm Reviewed By: Reji Valera MD Signed By: Reji Valera MD Signed Date/Time: 05/08/22 3:39 pm Transcribed By: LOGAN Transcribed Date/Time: 05/08/22 3:30 pm Care Team Personnel Name: Thomas Bright Address: [address] [place] [address]
--- OUTSIDE RECORDS SUMMARY | 2023-02-21 14:51 | XMS_ITS | Continuity of Care Document ---
Author Name Unknown Organization [facility] Address [address] [place] [address]- Care Team Providers Care Coal Crusher Operator Name Role Phone Thomas Bright Primary Care Physician [phone] Encounter 05/12/22 - 07/05/22 [facility] [address] [place] [address]- Discharge Disposition: GOALS MET Referring Physician: Arnaldo Osman Allergies, Adverse Reactions, Alerts Substance Reaction Severity Status Lamictal Hives, itch Active Tegretol Hallucinations, aggression A ctive Tylenol itching Active Lobster Persistent Severe Active Percocet 7.5/325 1 C/O: itching Active influenza virus vaccine, inactivated 2 Active traMADol Active oxyCODONE Persistent Mild Active 1makes pt itchy 2Hx of Guillain - [place] Immunizations Given and Recorded Vaccine Date Status Refusal Reason pneumococcal 23-valent vaccine 02/03/17 Given Not Given Vaccine Date Status Refusal Reason pneumococcal 23-valent vaccine 01/25/17 Not Given Patient Refuses Medications atorvastatin 80 mg oral tablet 1 tablet = 80 mg, By Mouth, Daily at bedtime, # 30 tablet, 0 Refills, Maintenance, Tablet, Route toPharmacy Electronically, [id number], [facility] Start Date: 04/02/18 [...] 1 Refills, Maintenance, 05/20/22 14:26:00 EDT, Tablet, [facility]/pharmacy #[id number], Partialfill upon patient request if [...] Active GERD (gastroesophageal reflux disease) Confirmed Active Guillain-[place] syndrome 1 Confirmed Active Hematoma of leg [...] Member Role: Primary Care Nurse Name: Joselyn Sevilal RN Position: S RN Member Role: Primary Care Nurse Name: Thomas Bright Position: S Outreach Member Role: PCP Address: Address: [address] [place], [place] [id number]- Name: Karmen Mandujano RN Position: [facility] Rad RN Member Role: Primary Care Nurse Name: Margie Castanon RN Position: [facility] RN Member Role: Primary Care Nurse Name: Shahbaz Castaneda RN Position: [facility] RN Member Role: Primary Care Nurse Name: Justin Dailey MD Position: [facility] Infectious Disease MD Member Role: Lifetime Consulting Physician Address: Address: [address] [place] [address] [place] [address]- Name: Veronica Davila RN Position: [facility] RN Member Role: Primary Care Nurse Name: Melva Herndon RN Position: [facility] RN Member Role: Primary Care Nurse Name: Karena Penaloza RN Position: [facility] RN Member Role: Primary Care Nurse Name: Fang Adams RN Position: [facility] Sheet Metal Duct Installer Apprentice Member Role: Primary Care Nurse Name: Karri Jaramillo RN Position: [facility] RN Member Role: Primary Care Nurse Name: Consuelo Alvarenga RN Position: [facility] RN Member Role: Primary Care Nurse Name: Veronica Blanco RN [facility] RN Member Role: Primary Care Nurse Name: Ramsey Perez RN Position: [facility] RN Member Role: Primary Care Nurse Name: Lazaro Huffman RN Position: [facility] RN Member Role: Primary Care Nurse Name: Jacquelyn Juarez Position: [facility] RN Member Role: Primary Care Nurse Name: Jacquelyn Ramsey RN Position: [facility] RN Member Role: Primary Care Nurse Name: Jennifer Ghosh RN Position: [facility] RN Member Role: Primary Care Nurse Name: Qiana Mansfield RN Position: [facility] RN Member Role: Primary Care Nurse Name: Chuyita Ashley RN Position: [facility] RN Member Role: Primary Care Nurse Name: Elle Blackwood RN Position: [facility] Sheet Metal Duct Installer Apprentice Member Role: Primary Care Nurse Name: Yamilex Arteaga RN Position: [facility] RN Member Role: Primary Care Nurse Name: Skip Harry RN Position: [facility] RN Member Role: Primary Care Nurse Name: Valentine Perrin RN Position: [facility] RN Member Role: Primary Care Nurse Name: Mark Hoewll RN Position: [facility] RN Member Role: Primary Care Nurse Name: Elaine Webb RN Position: [facility] RN Member Role: Primary Care Nurse Name: Stephanie Houser RN Position: [facility] RN Member Role: Primary Care Nurse Name: Amber uG RN Position: [facility] RN Member Role: Primary Care Nurse Name: Reji Zimmerman Jr Position: [facility] ED RN W/OE and Tasks Member Role: Primary Care Nurse Name: Dang Padilla RN Position: [facility] RN Member Role: Primary Care Nurse Name: Scot Anderson RN Position: [facility] RN Member Role: Primary Care Nurse Name: Luz Marina Byrd RN Position: [facility] RN Member Role: Primary Care Nurse Name: Joelle Sandoval RN Position: [facility] RN Member Role: Primary Care Nurse Name: Gideon Diaz RN Position: [facility] RN Member Role: Primary Care Nurse Name: Diana Anderson RN Position: [facility] RN Member Role: Primary Care Nurse Name: Thomas Betancur RN Position: [facility] RN Member Role: Primary Care Nurse Name: Vee Mcnamara RN Position: [facility] Sheet Metal Duct Installer Apprentice Member Role: Primary Care Nurse Name: Nisreen Greenberg RN Position: [facility] Outreach Member Role: Primary Care Nurse Name: Lanny Bolton RN Position: [facility] RN Member Role: Primary Care Nurse Name: Anthony Carolina RN Position: [facility] RN Member Role: Primary Care Nurse Name: Ana Dupont RN Position: [facility] RN Member Role: Primary Care Nurse Name: Alyssia Durbin RN Position: [facility] RN Member Role: Primary Care Nurse Name: Afshan Galeano RN Position: [facility] SN RN Member Role: Primary Care Nurse Name: Reji Bright RN Position: [facility] RN Member Role: Primary Care Nurse Name: Estefanía Austin RN Position: [facility] RN Member Role: Primary Care Nurse Name: Sarah Carson RN Position: [facility] RN Member Role: Primary Care Nurse Name: Amira Hughes RN Position: [facility] RN Member Role: Primary Care Nurse Name: Chiquis Callejas RN Position: [facility] Onco RN Member Role: Primary Care Nurse Name: Linda Rajput RN, I Position: [facility] RN Member Role: Primary Care Nurse Care Team Related Persons Name: SHAHBAZ MEADOWS Address: home [address] [place] [address] Name: YOANDY TAYLOR Address: home [address] [address]
--- OUTSIDE RECORDS SUMMARY | 2023-02-21 14:51 | XMS_ITS | Continuity of Care Document ---
Author Name Unknown Organization [facility] ter Address [address] [place] [id number]- Care Team Providers Care Care Director Rn Name Role Phone Thomas Bright Primary Care Physician Encounter [facility] Date(s): 09/26/19 - 09/26/[address] [address]- [facility] Encounter Diagnosis Leg pain(Final) - 09/26/19 Chest pain(Final) - 09/26/19 Discharge Disposition: A-D/C Home Attending Physician: Drew [...] 1makes pt itchy 2Hx of Guillain - [place] Immunizations Given and Recorded Vaccine Date Status Refusal Reason pneumococcal 23-valent vaccine 02/03/17 Given Not Given Vaccine Date Status Refusal Reason pneumococcal 23-valent vaccine 01/25/17 Not Given Patient Refuses Medications atorvastatin 80 mg oral tablet 1 tablet = 80 mg, By Mouth, Daily, # 30 tablet, 0 Refills, Maintenance, Tablet, Route to Pharmacy Electronically, [id number], [facility] Start Date: 04/02/18 Stop Date: [...] ant GERD (gastroesophageal reflu x disease)(Confirmed) Active 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 Hematoma of leg(Confirmed) Active HIV disease(Confirmed) 2003 Active Hypercholesterolemia(Confirmed) 2006 Active HLD (hyperlipidemia)(Confirmed) Active HTN (hypertension)(Confirmed) Active Hypothyroidism(Confirmed) Active Skin infection(Confirmed) Active PVD (peripheral vascular disease)(Confirmed) Active 1sequelae, left sided weakness Results Radiology Reports * Exam Date Time Procedure Performing Provider Status 09/26/19 12:14 PM Knee 1 or 2 Views Right Larry Allison (Verified) Notes: (Knee 1 or 2 Views Right) Reason For Exam: with Pain;Pain RESULT: Knee 1 or 2 Views Right Knee 1 or 2 Views Left, Knee 1 or 2 Views Right CLINICAL INDICATION: Refer to EMR; Reason: Pain; with Pain; Clinical Question(s): Arthritis; Hx of Present Illness: Patient chronically on Pradaxa for hx of blood clots. C o 4 days of bilat LE pain with tingling. Patient also endorses chest pain since yestderday, non-radiating, non-reproducable; Other Objective Findings: Patient awake, alert, approp, resp even and unlabored, speaking in full and clear sentences, skin COMPARISONS: None TECHNIQUE: Supine AP and cross table lateral views of bilateral knees were obtained. FINDINGS: Right: Femoral-tibial joint space and alignment are normal. No fracture or dislocation. No joint effusion. The patella is normally positioned. Surgical clips are seen within the popliteal fossa and upper calf. Left: Femoral-tibial joint space and alignment are normal. No fracture or dislocation. No joint effusion. The patella is normally positioned. IMPRESSION: No explanation for patient's reported lower extremity pain and tingling on x-ray. No osseous abnormality. No fracture or dislocation. No arthritic changes. Surgical clips in the right popliteal fossa and upper calf, otherwise negative study. WSN: [id number] Dictated By: Gage MG, Fletcher Locke Dictated Date/Time: 09/26/19 12:37 p Reviewed By: Fletcher Almonte MD Signed By: Fletcher Almonte MD Signed Date/Time: 09/26/19 12:37 pm Transcribed By: LOGAN Transcribed Date/Time: 09/26/19 12:34 pm * Exam Date Time Procedure Performing Provider Status 09/26/19 12:14 PM Knee 1 or 2 Views Left Marge Allison ; Auth (Verified) Notes: (Knee 1 or 2 Views Left) Reason For Exam: with Pain;Pain RESULT: Knee 1 or 2 Views Left Knee 1 or 2 Views Left, Knee 1 or 2 Views Right CLINICAL INDICATION: Refer to EMR; Reason: Pain; with Pain; Clinical Question(s): Arthritis; Hx of Present Illness: Patient chronically on Pradaxa for hx of blood clots. C o 4 days of bilat LE pain with tingling. Patient also endorses chest pain since yestderday, non-radiating, non-reproducable; Other Objective Findings: Patient awake, alert, approp, resp even and unlabored, speaking in full and clear sentences, skin COMPARISONS: None TECHNIQUE: Supine AP and cross table lateral views of bilateral knees were obtained. FINDINGS: Right: Femoral-tibial joint space and alignment are normal. No fracture or dislocation. No joint effusion. The patella is normally positioned. Surgical clips are seen within the popliteal fossa and upper calf. Left: Femoral-tibial joint space and alignment are normal. No fracture or dislocation. No joint effusion. The patella is normally positioned. IMPRESSION: No explanation for patient's reported lower extremity pain and tingling on x-ray. No osseous abnormality. No fracture or dislocation. No arthritic changes. Surgical clips in the right popliteal fossa and upper calf, otherwise negative study. WSN: [id number] Dictated By: Fletcher Almonte MD Dictated Date/Time: 09/26/19 12:37 p Reviewed By: Fletcher Almonte MD Signed By: Fletcher Almonte MD Signed Date/Time: 09/26/19 12:37 pm Transcribed By: LOGAN Transcribed Date/Time: 09/26/19 12:34 pm * Exam Date Time Procedure Performing Provider Status 09/26/19 12:14 PM Chest 2 Views Frontal and Lat Marge Allison; Auth (Verified) Notes: (Chest 2 Views Frontal and Lat) Reason For Exam: Shortness of Breath RESULT: Chest 2 Views Frontal and Lat Chest 2 Views Frontal and Lat Refer to EMR; Reason: Shortness of Breath; Clinical Question(s): CHF; Hx of Present Illness: Patient chronically on Pradaxa for hx of blood clots. C o 4 days of bilat LE pain with tingling. Patient also endorses chest pain since yestderday, non-radiating, non-reproducable; Other Objective Findings:Patient awake, alert, approp, resp even and unlabored, speaking in full and clear sentences, skin pw COMPARISON: 09/04/2019. FINDINGS: LINES AND TUBES: None. LUNGS AND PLEURA: Clear lungs. Normal pulmonary vascularity. No pleural effusion. No pneumothorax. HEART, MEDIASTINUM AND [place]: Heart is at the upper limits of normal for size. Normal mediastinal and hilar contour. BONES AND SOFT TISSUES: No acute abnormality. IMPRESSION: No acute cardiopulmonary pathology. WSN: [id number] Dictated By: Fletcher Almonte MD Dictated Date/Time: 09/26/19 12:31 p Reviewed By: Fletcher Almonte MD Signed By: Fletcher Almonte MD Signed Date/Time: 09/26/19 12:31 pm Transcribed By: LOGAN Transcribed Date/Time: 09/26/19 12:30 pm Vital Signs Most recent to oldest [Reference Range]: 1 2 3 Oxygen Saturation [94-100 %] 99 % (09/26/19 4:07 PM) 97 % (09/26/19 1:53 PM) 99 % (09/26/19 10:25 AM) Pulse Rate [55-90 bpm] 81 bpm (09/26/19 4:07 PM) 87 bpm (09/26/19 1:53 PM) 117 bpm *H* (09/26/19 10:25 AM) Blood Pressure [90-138/55-84 mm Hg] 118/78mm Hg (09/26/19 4:07 PM) 114/74mm Hg (09/26/19 1:53 PM) 120/80mm Hg (09/26/19 10:24 AM) Respiratory Rate [16-30 br/min] 17 br/min (09/26/19 4:07 PM) 16 br/min (09/26/19 1:53 PM) 16 br/min (09/26/19 10:24 AM) Temperature [96.8-100.4 DegF] 98.7 DegF (09/26/19 1:53 PM) 97.7 DegF (09/26/19 10:24 AM) Mode of Delivery (Oxygen) Room air (09/26/19 4:07 PM) Room air (09/26/19 1:53 PM) Room air (09/26/19 10:25 AM) Blood pressure sites Arm, right (09/26/19 4:07 PM) Arm, right (09/26/19 1:53 PM) Arm, right (09/26/19 10:24 AM) Temperature Route Oral (09/26/19 1:53 PM) Oral (09/26/19 10:24 AM) Social History Social History Type Response Smoking Status Former smoker; Tobac co user in household: No; Type: Cigarettes; Other: quit in july 2016; Tobacco use times per day: half pack per day; Started at age: 11; entered on: 05/29/18 Sex
--- OUTSIDE RECORDS SUMMARY | 2023-02-21 14:51 | XMS_ITS | Continuity of Care Document ---
Author Name Unknown Organization [facility] Address [address] [place] [id number]- Care Team Providers Care I&C Tech Name Role Phone Thomas Bright Primary Care Physician Encounter [facility] Date(s): 08/02/21 - 08/02/[address] [address]- Discharge Disposition: A-D/C Home Attending Physician: Jeanette [...] 1makes pt itchy 2Hx of Guillain - [place] Immunizations Given and Recorded Vaccine Date Status Refusal Reason pneumococcal 23-valent vaccine 02/03/17 Given Not Given Vaccine Date Status Refusal Reason pneumococcal 23-valent vaccine 01/25/17 Not Given Patient Refuses Medications atorvastatin 80 mg oral tablet 1 tablet = 80 mg, By Mouth, Daily, # 30 tablet, 0 Refills, Maintenance, Tablet, Route to Pharmacy Electronically, [id number], [facility] Start Date: 04/02/18 Stop Date: 05/02/18 Status: Ordered Dilaudid Inj 1 mg, Injection, IV Push Slowly, Every 15 minutes for 3 doses/times, PRN for Pain , Moderate, and SBP greater than 100, STAT, 08/02/21 12:51:00 EST, Stop date Limited # of times Start Date: 08/02/21 Stop Date: 08/02/21 Status: Completed famotidine 20 mg oral tablet TOME DOS TABLETAS POR VIA ORAL TODOS [place] Start Date: 06/16/20 Status: Ordered glyBURIDE [...] 4 hours, PRN as needed for pain, for 3 days, # 10 tablet, 0 Refills, Acute 08/05/21 18:58:00 EST, 08/02/21 18:58:00 EST, Tablet, [facility]/pharmacy #[id number], Partial fill upon patient request if the prescription is for a sched... 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 Hematoma of leg(Confirmed) Active HIV disease(Confirmed) 2002 Active HLD (hyperlipidemia)(Confirmed) Active HTN (hypertension)(Confirmed) Active Hypothyroidism(Confirmed) Active Skin infection(Confirmed) Active PVD (peripheral vascular disease)(Confirmed) Active 1sequelae, left sided weakness Results Radiology Reports * Exam Date Time Procedure Performing Provider Status 08/02/21 10:37 AM Chest 2 Views Frontal and Lat Alicia Zurita i; Auth (Verified) Notes: (Chest 2 Views Frontal and Lat) Reason For Exam: Chest Pain;Other: RESULT: Chest 2 Views Frontal and Lat Chest 2 Views Frontal and Lat INDICATION: pt states sine sunday increased left lower leg pain - has known dvt. on pradaxa. also having groin pain and abd pain. denies urinary sx. no n v d. epigastric cp intermittent.; Reason: Other:; Chest Pain. COMPARISON: 04/11/2021. CT chest 05/30/2021. FINDINGS: LINES AND TUBES: None. LUNGS AND PLEURA: Clear lungs. Normal pulmonary vascularity. No pleural effusion. No pneumothorax. HEART, MEDIASTINUM AND [place]: Heart is normal in size. Normal upper mediastinal and hilar contour. BONES AND SOFT TISSUES: Chronic left posterior eighth rib fracture. Cholecystectomy clips. Endovascular stent graft in the region of the abdominal aorta. Chronic mild compression deformity of a mid to upper thoracic vertebral body. IMPRESSION: No acute abnormality. I have personally reviewed the images and I agree with this report. WSN: [id number] Ordering Physician: Rose Mary Appiah Dictated By: Selam Luna MD Dictated Date/Time: 08/02/21 11:19 a Reviewed By: Torey Diana MD Signed By: Torey Diana MD Signed Date/Time: 08/02/21 11:24 am Transcribed By: LOGAN Transcribed Date/Time: 08/02/21 10:50 am Vital Signs Most recent to oldest [Reference Range]: 1 2 3 Height 175 cm (08/02/21 5:58 PM) 175 cm (08/02/21 4:45 PM) 175 cm (08/02/21 2:22 PM) Weight 85.5 kg (08/02/21 5:58 PM) 85.5 kg (08/02/21 4:45 PM) 85.5 kg (08/02/21 2:22 PM) Oxygen Saturation [94-100 %] 97 % (08/02/21 7:19 PM) 96 % (08/02/21 5:58 PM) 96 % (08/02/21 4:45 PM) Pulse Rate [55-90 bpm] 69 bpm (08/02/21 7:19 PM) 81 bpm (08/02/21 5:58 PM) 64 bpm (08/02/21 4:45 PM) Body Mass Index [18.5-24.99] 27.92 *H* (08/02/21 5:58 PM) 27.92 *H* (08/02/21 4:45 PM) 27.92 *H* (08/02/21 2:22 PM) Blood Pressure [90-138/55-84 mm Hg] 121/88mm Hg (08/02/21 7:19 PM) 117/72mm Hg (08/02/21 5:58 PM) 130/79mm Hg (08/02/21 4:45 PM) Respiratory Rate [16-30 br/min] 18 br/min (08/02/21 7:19 PM) 20 br/min (08/02/21 5:58 PM) 20 br/min (08/02/21 5:18 PM) Temperature [96.8-100.4 DegF] 98.0 DegF (08/02/21 5:58 PM) 97.6 DegF (08/02/21 4:45 PM) 98.2 DegF (08/02/21 2:22 PM) Mode of Delivery (Oxygen) Room air (08/02/21 7:19 PM) Room air (08/02/21 5:58 PM) Room air (08/02/21 4:45 PM) Blood pressure sites Arm, left (08/02/21 11:07 AM) Arm, right (08/02/21 9:40 AM) Temperature Route Oral (08/02/21 5:58 PM) Oral (08/02/21 4:45 PM) Oral (08/02/21 2:22 PM) Weight Obtained Via Patient/family state d (08/02/21 11:07 AM) Social History Social History Type Response Smoking Status Former smoker; Tobac co user in household: No; Type: Cigarettes; Other: quit in july 2016; Tobacco use times per day: half pack per day; Started at age: 11; entered on: 05/29/18 Sex
--- OUTSIDE RECORDS SUMMARY | 2023-02-21 14:51 | XMS_ITS | Continuity of Care Document ---
Author Name Unknown Organization [facility] Address [address] [place] [address]- Care Team Providers Care Assistant Gm Of Content & Delivery Name Role Phone Thomas Bright Primary Care Physician [phone] Encounter [facility] Date(s): 11/03/20 - 01/03/21 [facility] [address] [place], [place] [address] Discharge Disposition: A-D/C Home Attending Physician: [...] 1makes pt itchy 2Hx of Guillain - [place] Immunizations Given and Recorded Vaccine Date Status Refusal Reason pneumococcal 23-valent vaccine 02/03/17 Given Not Given Vaccine Date Status Refusal Reason pneumococcal 23-valent vaccine 01/25/17 Not Given Patient Refuses Medications aspirin 81 mg oral delayed release tablet See Instructions, ALY GOINSA TODOS [place], # 30 tablet, 1 Refills, Maintenance, [id number], 175, cm, 02/26/20 14:11:00 EDT, Height, 87.5, kg, 02/26/20 14:11:00 EDT, Dry Weight Start Date: 04/12/20 Status: Ordered atorvastatin 80 mg oral tablet 1 tablet = 80 mg, By Mouth, Daily, # 30 tablet, 0 Refills, Maintenance, Tablet, Route to Pharmacy Electronically, [id number], [facility] Start Date: 04/02/18 [...] 0 Refills, Maintenance, 10/22/20 8:48:00 EST, Gel, [facility] #[id number], Partial fill upon patient request if [...] 0 Refills, Maintenance, 10/29/20 9:13:00 EST, Tablet, [facility]/pharmacy #[id number], Partial fill upon patient request if the prescription is for a schedule II opioid drug., 175, cm, 10/28/20 10:07:00 EST, Height, 8... 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
--- OUTSIDE RECORDS SUMMARY | 2023-02-21 14:51 | XMS_ITS | Continuity of Care Document ---
Author Name Unknown Organization [facility] Address [address] [place] [id number]- Care Team Providers Care Health Coach Name Role Phone Thomas Bright Primary Care Physician Encounter [facility] Date(s): 10/15/21 - 10/15/[address] [address]- Encounter Diagnosis Viral illness(Final) - 10/15/21 Discharge Disposition: A-D/C Home Attending Physician: Chauncey uBrns MD Admitting Physician: Chauncey Burns MD Referring Physician: Not on Staff, Referring MD Allergies, Adverse Reactions, Alerts Substance Reaction Severity Status Lamictal Hives, itch Active Tegretol Hallucinations, aggression A ctive Tylenol itching Active Lobster Persistent Severe Active Percocet 7.5/325 1 C/O: itching Active influenza virus vaccine, inactivated 2 Active traMADol Active oxyCODONE Persistent Mild Active 1makes pt itchy 2Hx of Guillain - [place] Immunizations Given and Recorded Vaccine Date Status Refusal Reason pneumococcal 23-valent vaccine 02/03/17 Given Not Given Vaccine Date Status Refusal Reason pneumococcal 23-valent vaccine 01/25/17 Not Given Patient Refuses Medications atorvastatin 80 mg oral tablet 1 tablet = 80 mg, By Mouth, Daily, # 30 tablet, 0 Refills, Maintenance, Tablet, Route to Pharmacy Electronically, [id number], [facility] Start Date: 04/02/18 Stop [...] 2 mg, Injection, IV Push Slowly, Every 5 minutes for 3 doses/times, PRN for Pain , Moderate, and SBP greater than 100, Routine, 10/15/21 14:47:00 EST, Stop date Limited # of times Start Date: 10/15/21 Stop Date: 10/15/21 Status: Completed ondansetron 4 mg oral tablet, disintegrating 1 tablet = 4 mg, By Mouth, Every 8 hours, PRN as needed for nausea/vomiting, # 10 tablet, 0 Refills, Maintenance, 10/15/21 21:12:00 EST, DIS Tablet, [facility]/pharmacy #[id number], Partial fill upon patient request if the [...] Active GERD (gastroesophageal reflu x disease)(Confirmed) Active 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 Hematoma of leg(Confirmed) Active HIV disease(Confirmed) 2002 Active HLD (hyperlipidemia)(Confirmed) Active HTN (hypertension)(Confirmed) Active Hypothyroidism(Confirmed) Active Skin infection(Confirmed) Active PVD (peripheral vascular disease)(Confirmed) Active 1sequelae, left sided weakness Results Orders for Microbiology Reports Name Date Group A Strep Screen and Culture 10/15/21 Microbiology Reports TEST:Group A Strep Screen and Culture STATUS:Unauthenticated BODY SITE: SOURCE:THROAT COLLECTED DATE/TIME:10/15/21 7:00 PM Group A Strep Screen and Culture SPECIMEN DESCRIPTION : THROAT SWAB SPECIAL REQUESTS : NONE DIRECT EXAM : RAPID GROUP A RESULT IS NEGATIVE, REFER TO CULTURE RESULT. REPORT STATUS : PRELIMINARY REPORT Radiology Reports * Exam Date Time Procedure Performing Provider Status 10/15/21 3:06 PM Chest Portable Reji Cruz; Auth (Verified) Notes: (Chest Portable) Reason For Exam: Shortness of Breath RESULT: Chest Portable Chest Portable Hx of Present Illness: Pt presenting with severe L side ABD pain since yesterday. Recent hospitalization for HPV removal on anus 1 25. Pt reports chills, headache, nausea and poor appitite. Also complaining of L. knee and ankle pain.; Reason: Shortness of Breath; Clinical Question(s): CHF COMPARISON: CTA chest abdomen and pelvis dated September 30, 2021. FINDINGS: LINES AND TUBES: None. LUNGS AND PLEURA: Congested and somewhat indistinct pulmonary vasculature suggesting mild pulmonary edema. No effusion, consolidation, or pneumothorax. HEART, MEDIASTINUM AND [place]: Mildly prominent cardiomediastinal silhouette, exaggerated by AP technique. Normal upper mediastinal and hilar contour. BONES AND SOFT TISSUES: No acute abnormality. IMPRESSION: Congested and somewhat indistinct pulmonary vasculature suggesting pulmonary edema. WSN: [id number] Ordering Physician: Vivi Samano Dictated By: Torey Diana MD Dictated Date/Time: 10/15/21 4:07 pm Reviewed By: Torey Diana MD Signed By: oTrey Diana MD Signed Date/Time: 10/15/21 4:07 pm Transcribed By: LOGAN Transcribed Date/Time: 10/15/21 4:06 pm Vital Signs Most recent to oldest [Reference Range]: 1 2 3 Oxygen Saturation [94-100 %] 96 % (10/15/21 7:25 PM) 97 % (10/15/21 5:47 PM) 96 % (10/15/21 5:08 PM) Pulse Rate [55-90 bpm] 85 bpm (10/15/21 7:25 PM) 89 bpm (10/15/21 5:47 PM) 92 bpm *H* (10/15/21 5:08 PM) Blood Pressure [90-138/55-84 mm Hg] 128/72mm Hg (10/15/21 7:25 PM) 103/60mm Hg (10/15/21 5:47 PM) 99/58mm Hg (10/15/21 5:08 PM) Respiratory Rate [16-30 br/min] 14 br/min *L* (10/15/21 7:25 PM) 15 br/min *L* (10/15/21 5:47 PM) 15 br/min *L* (10/15/21 5:44 PM) Temperature [96.8-100.4 DegF] 98.6 DegF (10/15/21 5:48 PM) 99.6 DegF (10/15/21 5:08 PM) 100.3 DegF (10/15/21 4:06 PM) Mode of Delivery (Oxygen) Room air (10/15/21 7:25 PM) Room air (10/15/21 5:47 PM) Room air (10/15/21 5:08 PM) Blood pressure sites Arm, right (10/15/21 5:47 PM) Arm, right (10/15/21 5:08 PM) Arm, right (10/15/21 4:06 PM) Temperature Route Oral (10/15/21 5:48 PM) Oral (10/15/21 5:08 PM) Oral (10/15/21 4:06 PM) Social History Social History Type Response Smoking Status Former smoker; Tobac co user in household: No; Type: Cigarettes; Other: quit in july 2016; Tobacco use times per day: half pack per day; Started at age: 11; entered on: 05/29/18 Sex
--- OUTSIDE RECORDS SUMMARY | 2023-02-21 14:51 | XMS_ITS | Continuity of Care Document ---
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 Name Role Phone Thomas Bright Primary Care Physician [place] [facility] [place](s[place] 06/21/20 - 06/21/[address] [address]- [facility] Encounter Diagnosis Gastroenteritis(Final) - 06/21/20 Discharge Disposition: A-D/C Home Attending Physician: Zahraa Goodman DO Admitting Physician: Zahraa Goodman DO Referring Physician: Not on Staff, Referring MD Allergies, Adverse Reactions, Alerts Substance Reaction Severity Status Lamictal Hives, itch Active Tegretol Hallucinations, aggression A ctive Tylenol itching Active Lobster Persistent Severe Active influenza virus vaccine, inactivated 1 Active oxyCODONE Persistent Mild Active traMADol Active Percocet 7.5/325 2 C/O: itching Active 1Hx of Guillain - [place] 2makes pt itchy Immunizations Given and Recorded Vaccine Date Status Refusal Reason pneumococcal 23-valent vaccine 02/03/17 Given Not Given Vaccine Date Status Refusal Reason pneumococcal 23-valent vaccine 01/25/17 Not Given Patient Refuses Medications aspirin 81 mg oral delayed release tablet See Instructions, ALY GOINSA TODOS [place], # 30 tablet, 1 Refills, Maintenance, [id number], 175, cm, 02/26/20 14:11:00 EDT, Height, 87.5, kg, 02/26/20 14:11:00 EDT, Dry Weight Start Date: 04/12/20 Status: Ordered atorvastatin 80 mg oral tablet 1 tablet = 80 mg, By Mouth, Daily, # 30 tablet, 0 Refills, Maintenance, Tablet, Route to Pharmacy Electronically, [id number], [facility] Start Date: 04/02/18 Stop [...] tablet = 2 mg, By Mouth, Every 4 hours, PRN as needed for pain, for 5 days, # 12 tablet, 0 Refills, Acute 06/22/20 14:39:00 EDT, 06/17/20 14:39:00 EDT, Tablet, [facility], Partial fill upon patient request, 175, cm, 06/17/20 8:54:00 ED... Start Date: 06/17/20 Stop Date: 06/22/20 Status: Ordered enoxaparin 150 mg/mL injectable solution = 135 mg, Subcutaneous Injection, Every 24 hours, for 30 days, # 45 mL, 0 Refills, Acute 07/17/20 14:38:00 EST, 06/17/20 14:38:00 EDT, Injection, [facility] 3, 175, cm, 06/17/20 8:54:00 EDT, Height, 91, kg, 06/16/20 10:18:00 EDT, Dry Weight Start Date: 06/17/20 Stop Date: 07/17/20 Status: Ordered famotidine 20 mg oral tablet [...] 07/30/17 8:20:04 Start Date: 07/30/17 Status: Ordered metFORMIN 500 mg oral tablet TOME EMILY TABLETA TODOS [place] CON [facility] [place] Start Date: 06/16/20 Status: Ordered ondansetron 4 mg oral tablet, disintegrating 1 tablet = 4 mg, By Mouth, Every 8 hours, PRN Nausea & Vomiting, # 10 tablet, 0 Refills, Maintenance, 06/21/20 19:42:00 EDT, Tablet, [facility]/pharmacy #[id number], 175, cm, 06/17/20 8:54:00 [...] ant GERD (gastroesophageal reflu x disease)(Confirmed) Active 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 Hematoma of leg(Confirmed) Active HIV disease(Confirmed) 2002 Active Hypercholesterolemia(Confirmed) 2005 Active HLD (hyperlipidemia)(Confirmed) Active HTN (hypertension)(Confirmed) Active Hypothyroidism(Confirmed) Active Skin infection(Confirmed) Active PVD (peripheral vascular disease)(Confirmed) Active 1sequelae, left sided weakness Results Radiology Reports * Exam Date Time Procedure Performing Provider Status 06/21/20 6:04 PM Chest 2 Views Frontal and Lat Marge Allison; Emeli (Verified) Notes: (Chest 2 Views Frontal and Lat) Reason For Exam: Shortness of Breath, Fever;Other: RESULT: Chest 2 Views Frontal and Lat Chest 2 Views Frontal and Lat INDICATION: Hx of Present Illness: Chest pain radiates to back started this morning; Reason: Other:; Shortness of Breath, Fever; Clinical Question(s): Pneumonia COMPARISON: 06/15/2020 FINDINGS: Clear lungs. No pneumothorax or effusion. Normal size heart. IMPRESSION: No acute abnormality. WSN: [id number] Ordering Physician: Kole Patel Dictated By: Katia Kuhn MD Dictated Date/Time: 06/21/20 6:08 pm Reviewed By: Katia Kuhn MD Signed By: Katia Kuhn MD Signed Date/Time: 06/21/20 6:08 pm Transcribed By: LOGAN Transcribed Date/Time: 06/21/20 6:07 pm Vital Signs Most recent to oldest [Reference Range]: 1 2 3 Oxygen Saturation [94-100 %] 95 % (06/21/20 8:39 PM) 98 % (06/21/20 7:51 PM) 96 % (06/21/20 5:29 PM) Pulse Rate [55-90 bpm] 79 bpm (06/21/20 8:39 PM) 90 bpm (06/21/20 7:51 PM) 86 bpm (06/21/20 5:29 PM) Blood Pressure [90-138/55-84 mm Hg] 106/63mm Hg (06/21/20 8:39 PM) 104/69mm Hg (06/21/20 7:51 PM) 110/72mm Hg (06/21/20 5:29 PM) Respiratory Rate [16-30 br/min] 16 br/min (06/21/20 8:39 PM) 16 br/min (06/21/20 8:30 PM) 19 br/min (06/21/20 7:51 PM) Temperature [96.8-100.4 DegF] 99.8 DegF (06/21/20 5:29 PM) Mode of Delivery (Oxygen) Room air (06/21/20 8:39 PM) Room air (06/21/20 7:51 PM) Room air (06/21/20 5:29 PM) Blood pressure sites Arm, right (06/21/20 8:39 PM) Arm, right (06/21/20 7:51 PM) Arm, right (06/21/20 5:29 PM) Temperature Route Oral (06/21/20 5:29 PM) Social History Social History Type Response Smoking Status Former smoker; Tobac co user in household: No; Type: Cigarettes; Other: quit in july 2016; Tobacco use times per day: half pack per day; Started at age: 11; entered on: 05/29/18 Sex
--- OUTSIDE RECORDS SUMMARY | 2023-02-21 14:51 | XMS_ITS | Continuity of Care Document ---
Author Name Unknown Organization 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 Role Phone Thomas Bright Primary Care Physician [place] [facility] [place] 02/12/[address] [address]- Encounter Diagnosis Abdominal pain(Final) - 02/12/21 Discharge Disposition: A-D/C Home Attending Physician: Chiquis [...] 1makes pt itchy 2Hx of Guillain - [place] Immunizations Given and Recorded Vaccine Date Status Refusal Reason pneumococcal 23-valent vaccine 02/03/17 Given Not Given Vaccine Date Status Refusal Reason pneumococcal 23-valent vaccine 01/25/17 Not Given Patient Refuses Medications aspirin 81 mg oral delayed release tablet See Instructions, ALY GOINSA TODOS [place], # 30 tablet, 1 Refills, Maintenance, [id number], 175, cm, 02/26/20 14:11:00 EDT, Height, 87.5, kg, 02/26/20 14:11:00 EDT, Dry Weight Start Date: 04/12/20 Status: Ordered atorvastatin 80 mg oral tablet 1 tablet = 80 mg, By Mouth, Daily, # 30 tablet, 0 Refills, Maintenance, Tablet, Route to Pharmacy Electronically, [id number], [facility] Start Date: 04/02/18 [...] 0 Refills, Maintenance, 10/22/20 8:48:00 EST, Gel, [facility]/pharmacy #[id number], Partial fill upon patient request if the prescription is for a schedule... Start Date: 10/22/20 Status: Ordered enoxaparin 80 mg/0.8 mL injectable solution 0.9 mL = 90 mg, Subcutaneous Injection, Every 12 hours, please stop when INR 2- 3, PCP/VNA will be closely monitoring, # 18 mL, 0 Refills, Maintenance, 10/29/20 9:12:00 EST, Injection, [facility]/pharmacy #[id number], Partial fill upon patient request [...] 10/22/20 8:48:00 EST, Route to Pharmacy Electronically, [facility]/pharmacy #[id number], Partial fill upon patient request [...] mg, Injection, IV Push Slowly, Once, STAT, 02/12/21 16:19:00 EDT, Stop date 02/12/21 16:19:00 EDT Start Date: 02/12/21 Stop Date: 02/12/21 Status: Completed ondansetron 4 mg oral tablet, disintegrating 1 tablet = 4 mg, By Mouth, Every 8 hours, PRN Nausea & Vomiting, # 10 tablet, 0 Refills, Acute 02/15/21 0:00:00 EDT, 02/12/21 19:08:00 EDT, Tablet, [facility]/pharmacy #[id number], Partial fill upon patient request if the prescription is for a schedule II opioid d... Start Date: 02/12/21 Stop Date: 02/15/21 Status: Ordered pantoprazole 40 mg oral delayed [...] 0 Refills, Maintenance, 10/29/20 9:13:00 EST, Tablet, [facility]/pharmacy #[id number], Partial fill upon patient request if the prescription is for a schedule II opioid drug., 175, cm, 10/28/20 10:07:00 EST, Height, 8... 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 Hematoma of leg(Confirmed) Active HIV disease(Confirmed) 2002 Active Hypercholesterolemia(Confirmed) 2006 Active HLD (hyperlipidemia)(Confirmed) Active HTN (hypertension)(Confirmed) Active Hypothyroidism(Confirmed) Active Skin infection(Confirmed) Active PVD (peripheral vascular disease)(Confirmed) Active 1sequelae, left sided weakness Vital Signs Most recent to oldest [Reference Range]: 1 2 3 Oxygen Saturation [94-100 %] 99 % (02/12/21 5:04 PM) 99 % (02/12/21 2:17 PM) 100 % (02/12/21 10:11 AM) Pulse Rate [55-90 bpm] 72 bpm (02/12/21 5:04 PM) 67 bpm (02/12/21 2:17 PM) 84 bpm (02/12/21 10:11 AM) Blood Pressure [90-138/55-84 mm Hg] 121/76mm Hg (02/12/21 5:04 PM) 127/85mm Hg (02/12/21 2:17 PM) 110/64mm Hg (02/12/21 10:11 AM) Respiratory Rate [16-30 br/min] 17 br/min (02/12/21 5:04 PM) 17 br/min (02/12/21 4:59 PM) 18 br/min (02/12/21 2:17 PM) Temperature [96.8-100.4 DegF] 97.8 DegF (02/12/21 10:11 AM) Mode of Delivery (Oxygen) Room air (02/12/21 5:04 PM) Room air (02/12/21 2:17 PM) Room air (02/12/21 10:11 AM) Blood pressure sites Arm, right (02/12/21 5:04 PM) Arm, right (02/12/21 2:17 PM) Arm, right (02/12/21 10:11 AM) Temperature Route Oral (02/12/21 10:11 AM) Social History Social History Type Response Smoking Status Former smoker; Tobac co user in household: No; Type: Cigarettes; Other: quit in july 2016; Tobacco use times per day: half pack per day; Started at age: 11; entered on: 05/29/18 Sex
--- OUTSIDE RECORDS SUMMARY | 2023-02-21 14:51 | XMS_ITS | Continuity of Care Document ---
Author Name Unknown Organization [facility] y Address [address] [place] [address]- Care Team Providers Care Material Hauler Name Role Phone Thomas Bright Primary Care Physician [phone] Encounter [facility] [place] Date(s): 12/21/21 - 03/18/22 [facility] [address], [place] [address] Attending Physician: Scot López DO Admitting Physician: Scot López DO Allergies, Adverse Reactions, Alerts Substance Reaction Severity Status Lamictal Hives, itch Active Tegretol Hallucinations, aggression A ctive traMADol Active oxyCODONE Persistent Mild Active Tylenol itching Active Lobster Persistent Severe Active Percocet 7.5/325 1 C/O: itching Active influenza virus vaccine, inactivated 2 Active 1makes pt itchy 2Hx of Guillain - [place] Immunizations Given and Recorded Vaccine Date Status Refusal Reason pneumococcal 23-valent vaccine 02/03/17 Given Not Given Vaccine Date Status Refusal Reason pneumococcal 23-valent vaccine 01/25/17 Not Given Patient Refuses Medications atorvastatin 80 mg oral tablet 1 tablet = 80 mg, By Mouth, Daily, # 30 tablet, 0 Refills, Maintenance, Tablet, Route to Pharmacy Electronically, [id number], [facility] Start Date: 04/02/18 Stop Date: 05/02/18 [...] 0 Refills, Maintenance, 02/22/22 14:58:00 EDT, Tablet, [facility]/pharmacy #[id number], Partial fill upon patient request if the prescription is for a schedule II opioid drug., 175, cm, 0... 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
--- OUTSIDE RECORDS SUMMARY | 2023-02-21 14:51 | XMS_ITS | Continuity of Care Document ---
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 Name Role Phone Thomas Bright Primary Care Physician En[place] [facility] [place] Date(s): 02/22/22 - 02/22/[address] [address]- Encounter Diagnosis Abdominal pain(Final) - 02/22/22 Discharge Disposition: A-D/C Home Attending Physician: Chevy Ibarra MD Admitting Physician: Fred MG, Chevy Elizabeth Referring Physician: Not on Staff, Referring MD Allergies, Adverse Reactions, Alerts Substance Reaction Severity Status Lamictal Hives, itch Active Tegretol Hallucinations, aggression A ctive influenza virus vaccine, inactivated 1 Active oxyCODONE Persistent Mild Active Tylenol itching Active Lobster Persistent Severe Active Percocet 7.5/325 2 C/O: itching Active traMADol Active 1Hx of Guillain - [place] 2makes pt itchy Immunizations Given and Recorded Vaccine Date Status Refusal Reason pneumococcal 23-valent vaccine 02/03/17 Given Not Given Vaccine Date Status Refusal Reason pneumococcal 23-valent vaccine 01/25/17 Not Given Patient Refuses Medications atorvastatin 80 mg oral tablet 1 tablet = 80 mg, By Mouth, Daily, # 30 tablet, 0 Refills, Maintenance, Tablet, Route to Pharmacy Electronically, [id number], [facility] Start Date: [...] Moderate, and SBP greater than 100, Routine, 02/22/22 12:18:00 EDT, Stop date Limited # of times Start Date: 02/22/22 Status: Ordered ondansetron 4 mg oral tablet, disintegrating 1 tablet = 4 mg, By Mouth, Every 8 hours, PRN Nausea & Vomiting, # 9 tablet, 0 Refills, Maintenance, 02/22/22 14:58:00 EDT, Tablet, [facility]/pharmacy #[id number], Partial fill upon patient request if the prescription is for a schedule II opioid drug., 175, cm, 0... 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 Hematoma of leg(Confirmed) Active HIV disease(Confirmed) 2003 Active HLD (hyperlipidemia)(Confirmed) Active HTN (hypertension)(Confirmed) Active Hypothyroidism(Confirmed) Active Skin infection(Confirmed) Active PVD (peripheral vascular disease)(Confirmed) Active 1sequelae, left sided weakness Vital Signs Most recent to oldest [Reference Range]: 1 2 3 Oxygen Saturation [94-100 %] 95 % (02/22/22 3:41 PM) 98 % (02/22/22 2:34 PM) 99 % (02/22/22 1:05 PM) Pulse Rate [55-90 bpm] 87 bpm (02/22/22 3:41 PM) 86 bpm (02/22/22 2:34 PM) 80 bpm (02/22/22 1:38 PM) Blood Pressure [90-138/55-84 mm Hg] 104/80mm Hg (02/22/22 3:41 PM) 134/83mm Hg (02/22/22 2:34 PM) 149/73mm Hg *H* (02/22/22 1:38 PM) Respiratory Rate [16-30 br/min] 14 br/min *L* (02/22/22 3:41 PM) 16 br/min (02/22/22 2:34 PM) 15 br/min *L* (02/22/22 1:34 PM) Temperature [96.8-100.4 DegF] 98.1 DegF (02/22/22 3:41 PM) 98.2 DegF (02/22/22 10:49 AM) Mode of Delivery (Oxygen) Room air (02/22/22 3:41 PM) Room air (02/22/22 2:34 PM) Room air (02/22/22 1:05 PM) Blood pressure sites Arm, right (02/22/22 3:41 PM) Arm, right (02/22/22 11:40 AM) Arm, left (02/22/22 10:49 AM) Temperature Route Oral (02/22/22 3:41 PM) Oral (02/22/22 10:49 AM) Social History Social History Type Response Smoking Status Never (less than 100 in lifetime) entered on: 10/25/21 Sex
--- OUTSIDE RECORDS SUMMARY | 2023-02-21 14:51 | XMS_ITS | Continuity of Care Document ---
Author Name Unknown Organization [facility] Address [address] [place] [address]- Care Team Providers Care Marine Specialist Name Role Phone Thomas Bright Primary Care Physician [place] [facility] [place]21 [facility] [address] [place], [place] [address] Allergies, Adverse Reactions, Alerts Substance Reaction Severity Status Lamictal Hives, itch Active Tegretol Hallucinations, aggression A ctive Tylenol itching Active Lobster Persistent Severe Active Percocet 7.5/325 1 C/O: itching Active influenza virus vaccine, inactivated 2 Active traMADol Active oxyCODONE Persistent Mild Active 1makes pt itchy 2Hx of Guillain - [place] Immunizations Given and Recorded Vaccine Date Status Refusal Reason pneumococcal 23-valent vaccine 02/03/17 Given Not Given Vaccine Date Status Refusal Reason pneumococcal 23-valent vaccine 01/25/17 Not Given Patient Refuses Medications aspirin 81 mg oral delayed release tablet See Instructions, ALY GOINSA TODOS [place], # 30 tablet, 1 Refills, Maintenance, [id number], 175, cm, 02/26/20 14:11:00 EDT, Height, 87.5, kg, 02/26/20 14:11:00 EDT, Dry Weight Start Date: 04/12/20 Status: Ordered atorvastatin 80 mg oral tablet 1 tablet = 80 mg, By Mouth, Daily, # 30 tablet, 0 Refills, Maintenance, Tablet, Route to Pharmacy Electronically, [id number], [facility] Start Date: 04/02/18 [...] 0 Refills, Maintenance, 10/22/20 8:48:00 EST, Gel, [facility]/pharmacy #[id number], Partial fill upon patient request if the prescription is for a schedule... Start Date: 10/22/20 Status: Ordered enoxaparin 80 mg/0.8 mL injectable solution 0.9 mL = 90 mg, Subcutaneous Injection, Every 12 hours, please stop when INR 2- 3, PCP/VNA will be closely monitoring, # 18 mL, 0 Refills, Maintenance, 10/29/20 9:12:00 EST, Injection, [facility]/pharmacy #[id number], Partial fill upon patient [...] 10/22/20 8:48:00 EST, Route to Pharmacy Electronically, [facility]/pharmacy #[id number], Partial fill upon patient [...] 0 Refills, Maintenance, 03/17/21 6:56:00 EDT, Film, [facility]/pharmacy #[id number], Partial fill upon patient [...] 0 Refills, Maintenance, 10/29/20 9:13:00 EST, Tablet, [facility]/pharmacy #[id number], Partial fill upon patient request if the prescription is for a schedule II opioid drug., 175, cm, 10/28/20 10:07:00 EST, Height, 8... 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
--- OUTSIDE RECORDS SUMMARY | 2023-02-21 14:51 | XMS_ITS | Continuity of Care Document ---
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 Name Role Phone Thomas Bright Primary Care Physician Encounter [facility] Date(s): 10/09/22 - 10/10/[address] [address]- Encounter Diagnosis Cough(Final) - 10/09/22 Discharge Disposition: A-D/C Home Attending Physician: Barrett [...] 1makes pt itchy 2Hx of Guillain - [place] Immunizations Given and Recorded Vaccine Date Status Refusal Reason pneumococcal 23-valent vaccine 02/03/17 Given Not Given Vaccine Date Status Refusal Reason pneumococcal 23-valent vaccine 01/25/17 Not Given Patient Refuses Medications atorvastatin 80 mg oral tablet 1 tablet = 80 mg, By Mouth, Daily at bedtime, # 30 tablet, 0 Refills, Maintenance, Tablet, Route toPharmacy Electronically, [id number], [facility] [...] Moderate, and SBP greater than 100, Routine, 10/09/22 18:44:00 EST, Stop date Limited # of times Start Date: 10/09/22 Stop Date: 10/10/22 Status: Completed ondansetron 4 mg oral tablet, [...] Active GERD (gastroesophageal reflux disease) Confirmed Active Guillain-Ridgeway syndrome 1 Confirmed Active Hematoma of leg Confirmed Active HIV disease Confirmed 2002 Active HLD (hyperlipidemia) Confirmed Active HTN (hypertension) Confirmed Active Hypothyroidism Confirmed Active Skin infection Confirmed Active PVD (peripheral vascular disease) Confirmed Active 1sequelae, left sided weakness Results Radiology Reports * Exam Date Time Procedure Performing Provider Status 10/09/22 6:27 PM Chest 2 Views Frontal and Lat Miguel Lieberman; Auth (Verified) Notes: (Chest 2 Views Frontal and Lat) Reason For Exam: Shortness of Breath, Fever;Other: RESULT: Chest 2 Views Frontal and Lat Chest 2 Views Frontal and Lat Hx of Present Illness: from home, reports increased sob x1 week worsening today. Pt also c o cp that radiates to the back; Reason: Other:; Shortness of Breath, Fever; Clinical Question(s): Pneumonia COMPARISON: 09/26/2022 FINDINGS: LINES AND TUBES: None. LUNGS AND PLEURA: Clear lungs. Normal pulmonary vascularity. No pleural effusion. No pneumothorax. HEART, MEDIASTINUM AND BRONSON: Heart is normal in size. Normal mediastinal and hilar contour. BONES AND SOFT TISSUES: No acute abnormality. IMPRESSION: No acute abnormality. WSN: [id number] Ordering Physician: Claudine Aldana Dictated By: Mat Silverman MD Dictated Date/Time: 10/09/22 6:28 pm Reviewed By: Mat Silverman MD Signed By: Mat Silverman MD Signed Date/Time: 10/09/22 6:28 pm Transcribed By: LOGAN Transcribed Date/Time: 10/09/22 6:28 pm * Exam Date Time Procedure Performing Provider Status 10/09/22 3:[address] Abd/Pelvis W/ IV Contrast Only Seymour reema , Sophia; Auth (Verified) Notes: (CT Abd/Pelvis W/ IV Contrast Only) Reason For Exam: chest/epigastric pain;Other: RESULT: CT Abd/Pelvis W/ IV Contrast Only EXAMINATION: CT Angio Chest, CT Abd/Pelvis W/ IV Contrast Only INDICATION: from home, reports increased sob x1 week worsening today. Pt also c o cp that radiates to the back; Reason: Other:; PE suspected, Intermediate prob, positive D-dimer,; Clinical Question(s): Pulmonary Embolism; TECHNIQUE: Spiral CTA of the chest was performed after rapid IV contrast administration without cardiac gating triggered by an HOLLY on the main pulmonary artery. Spiral CT of the abdomen and pelvis was then performed in the portal venous phase. Images are formatted in multiple planes using 2-D multiplanar and 3-D maximum intensity projection. 100 cc of Omnipaque 300 was administered intravenously.This study was performed without oral contrast. Weight-based protocol using automatic tube modulation was used to optimize exposure parameters. CTDIvol Body: 8.05 mGy, DLP Body: 315 mGy*cm. ( CTDIvol Body: 4.78 mGy, DLP Body: 997 mGy*cm. ( COMPARISONS: CT angiogram of the chest, abdomen and pelvis dated 09/26/2022. ANGIOGRAPHIC FINDINGS: No pulmonary embolism to the subsegmental level. Normal caliber pulmonary arteries. No acute aortic abnormality seen on this study performed without cardiac gating. The patient is status post abdominal aortic stent graft placement. The abdominal aorta is unchanged in caliber as compared to the recent prior examination. NON-ANGIOGRAPHIC FINDINGS: Pipe Cutter View Findings, Lines and Tubes: None. Trachea and Airways: Patent without evidence of tracheal or endobronchial lesion. Lungs and Pleura: Multiple scattered calcified granuloma. The lungs otherwise appear clear. No effusion or pneumothorax. Mediastinum and bronson: No mass or hematoma. No mediastinal or hilar lymphadenopathy. No esophageal abnormality. Heart: Heart is normal in size. No pericardial effusion. Chest Wall Soft Tissues: Normal. Diaphragm : Normal. Liver: Diffuse low-attenuation throughout the liver parenchyma consistent with hepatic steatosis. No evidence of mass. Gallbladder: Absent consistent with prior cholecystectomy. Bile ducts: No biliary ductal dilation. Spleen: Calcified granuloma are seen in the spleen. Pancreas: Fatty infiltration of the pancreas without focal pancreatic lesion. Adrenal glands: Normal. Kidneys and ureters: No hydronephrosis, stones, or suspicious masses. 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 Bladder: Normal. Reproductive organs: Unremarkable. Stomach, small bowel, and large bowel: Status post partial sigmoid colectomy. The colon otherwise appears unremarkable. The small bowel is normal in caliber. The stomach appears unremarkable. Appendix: The appendix is not visualized and there is postoperative change at the cecal apex, suggesting prior appendectomy. Peritoneum and retroperitoneum: No ascites or pneumoperitoneum. No omental or mesenteric lesions. Lymph nodes: No enlarged lymph nodes. Abdominal and pelvic wall: Subcutaneous density with foci of subcutaneous gas in the anterior abdominal wall likely reflects injection sites. Bones: No acute abnormality. IMPRESSION: 1. No evidence of pulmonary embolism. 2. No acute intra-abdominal or intrapelvic process. 3. Status post abdominal aortic stent graft placement with no change in appearance of the abdominalaorta as compared to the prior examination given differences in the imaging technique. WSN: [id number] Ordering Physician: Latha Hernandez Dictated By: Umu Huber MD Dictated Date/Time: 10/09/22 4:46 pm Reviewed By: Umu Huber MD Signed By: Umu Huber MD Signed Date/Time: 10/09/22 4:46 pm Transcribed By: LOGAN Transcribed Date/Time: 10/09/22 4:24 pm * Exam Date Time Procedure Performing Provider Status 10/09/22 3:[address] Angio Chest Diamante Sophia; Emeli ( Verified) Notes: (CT Angio Chest) Reason For Exam: PE suspected, Intermediate prob, positive D-dimer,;Other: RESULT: CT Angio Chest EXAMINATION: CT Angio Chest, CT Abd/Pelvis W/ IV Contrast Only INDICATION: from home, reports increased sob x1 week worsening today. Pt also c o cp that radiates to the back; Reason: Other:; PE suspected, Intermediate prob, positive D-dimer,; Clinical Question(s): Pulmonary Embolism; TECHNIQUE: Spiral CTA of the chest was performed after rapid IV contrast administration without cardiac gating triggered by an HOLLY on the main pulmonary artery. Spiral CT of the abdomen and pelvis was then performed in the portal venous phase. Images are formatted in multiple planes using 2-D multiplanar and 3-D maximum intensity projection. 100 cc of Omnipaque 300 was administered intravenously.This study was performed without oral contrast. Weight-based protocol using automatic tube modulation was used to optimize exposure parameters. CTDIvol Body: 8.05 mGy, DLP Body: 315 mGy*cm. ( CTDIvol Body: 4.78 mGy, DLP Body: 997 mGy*cm. ( COMPARISONS: CT angiogram of the chest, abdomen and pelvis dated 09/26/2022. ANGIOGRAPHIC FINDINGS: No pulmonary embolism to the subsegmental level. Normal caliber pulmonary arteries. No acute aortic abnormality seen on this study performed without cardiac gating. The patient is status post abdominal aortic stent graft placement. The abdominal aorta is unchanged in caliber as compared to the recent prior examination. NON-ANGIOGRAPHIC FINDINGS: Pipe Cutter View Findings, Lines and Tubes: None. Trachea and Airways: Patent without evidence of tracheal or endobronchial lesion. Lungs and Pleura: Multiple scattered calcified granuloma. The lungs otherwise appear clear. No effusion or pneumothorax. Mediastinum and bronson: No mass or hematoma. No mediastinal or hilar lymphadenopathy. No esophageal abnormality. Heart: Heart is normal in size. No pericardial effusion. Chest Wall Soft Tissues: Normal. Diaphragm : Normal. Liver: Diffuse low-attenuation throughout the liver parenchyma consistent with hepatic steatosis. No evidence of mass. Gallbladder: Absent consistent with prior cholecystectomy. Bile ducts: No biliary ductal dilation. Spleen: Calcified granuloma are seen in the spleen. Pancreas: Fatty infiltration of the pancreas without focal pancreatic lesion. Adrenal glands: Normal. Kidneys and ureters: No hydronephrosis, stones, or suspicious masses. 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 Bladder: Normal. Reproductive organs: Unremarkable. Stomach, small bowel, and large bowel: Status post partial sigmoid colectomy. The colon otherwise appears unremarkable. The small bowel is normal in caliber. The stomach appears unremarkable. Appendix: The appendix is not visualized and there is postoperative change at the cecal apex, suggesting prior appendectomy. Peritoneum and retroperitoneum: No ascites or pneumoperitoneum. No omental or mesenteric lesions. Lymph nodes: No enlarged lymph nodes. Abdominal and pelvic wall: Subcutaneous density with foci of subcutaneous gas in the anterior abdominal wall likely reflects injection sites. Bones: No acute abnormality. IMPRESSION: 1. No evidence of pulmonary embolism. 2. No acute intra-abdominal or intrapelvic process. 3. Status post abdominal aortic stent graft placement with no change in appearance of the abdominalaorta as compared to the prior examination given differences in the imaging technique. WSN: [id number] Ordering Physician: Latha Hernandez Dictated By: Umu Huber MD Dictated Date/Time: 10/09/22 4:46 pm Reviewed By: Umu Huber MD Signed By: Umu Huber MD Signed Date/Time: 10/09/22 4:46 pm Transcribed By: LOGAN Transcribed Date/Time: 10/09/22 4:24 pm Vital Signs Most recent to oldest [Reference Range]: 1 2 3 Oxygen Saturation [94-100 %] 99 % (10/10/22 2:00 AM) 96 % (10/09/22 7:48 PM) 97 % (10/09/22 1:36 PM) Pulse Rate [55-90 bpm] 75 bpm (10/10/22 2:00 AM) 84 bpm (10/09/22 7:48 PM) 101 bpm *H* (10/09/22 1:36 PM) Blood Pressure [90-138/55-84 mm Hg] 110/78mm Hg (10/10/22 2:00 AM) 106/58mm Hg (10/09/22 7:48 PM) 101/67mm Hg (10/09/22 1:36 PM) Respiratory Rate [16-30 br/min] 18 br/min (10/10/22 2:00 AM) 18 br/min (10/10/22 12:46 AM) 16 br/min (10/09/22 10:19 PM) Temperature [96.8-100.4 DegF] 98 DegF (10/10/22 2:00 AM) 97.5 DegF (10/09/22 7:48 PM) 98.6 DegF (10/09/22 1:36 PM) Mode of Delivery (Oxygen) Room air (10/10/22 2:00 AM) Room air (10/09/22 7:48 PM) Room air (10/09/22 1:36 PM) Temperature Route Oral (10/10/22 2:00 AM) Oral (10/09/22 7:48 PM) Oral (10/09/22 1:36 PM) Social History Social History Type Response Smoking Status Never (less than 100 in lifetime) entered on: 10/25/21 Sex Male EKG study * Event Display: EKG Authored Date: Note * Veronica Pedroza DO: PERFORM Event Display: Patient Education Leaflets Authored Date: [id number] URI, Viral, No Abx (Adult) ?? [id number] La enfermedad viral de las v??as respiratorias superiores (adultos) Tiene shawn enfermedad viral de las v??as respiratorias superiores, otro nombre para el resfr??o com??n . Esta enfermedad viral es contagiosa marie los primeros d??as. Se transmite por el aire, por la tos o por el estornudo de la persona afectada. Tambi??n puede transmitirse por contacto directo (si cr toca a la persona enferma y despu??s se toca los ojos, la nariz o la boca). Lavarse las derek con frecuencia reducir?? el riesgo de contagio. La mayor??a de las enfermedades virales mejoran en entre??7 y 10??d??as con reposo y cuidados en el hogar simples. En ocasiones, la enfermedad puede durar varias semanas. Los antibi??ticos son ineficaces contra los virus, por lo que generalmente no se r ecetan para esta afecci??n. Cuidados en el hogar ??? Si los s??ntomas son graves, descanse en de la garza hogar los primeros??2 o 3??d??as o seg??n le hayan indicado. Cuando regrese a la actividad, trate de no cansarse demasiado. ??? Nofume. Si necesita ayuda para dejar de fumar, hable con de la garza proveedor de atenci??n m??dica. ??? Mant??ngase alejado del humo de cigarrillos, ya sea suyo o de otros. ??? Puede agueda paracetamol o ibuprofeno para controlar el dolor y la fiebre, a menos que le hayan recetado otro medicamento.??Si tiene shawn enfermedad cr??rustam del h??gado o de los ri??ones, hable con de la garza proveedor antes de agueda estos medicamentos. Tambi??n hable con de la garza proveedor si tuvo ??lceras estomacales o hemorragias gastrointestinales, o si darnell anticoagulantes. Nunca le administre aspirinas a shawn persona pili de 18??a??os con shawn infecci??n viral o fiebre. Puede causar da??os graves en el h??gado o en el cerebro, o inclusola muerte. ??? Es posible que tenga poco apetito, por lo que shawn dieta ligera es adecuada. Para evitar la deshidrataci??n, alesia entre??6 y 8??vasos de l??quido cada d??a (agua, refrescos, jugos de fruta, t?? o sopa). La abundancia de l??quido ayuda a desprender las secreciones de la nariz y los pulmones. ??? Los medicamentos de venta megan para el resfr??o no acortar??n la duraci??n de la enfermedad. No obstante, pueden ser ??tiles para aliviar s??ntomas, pau tos, dolor de garganta, congesti??n nasal y congesti??n de los senos paranasales. Si darnell medicamentos recetados, consulte a de la garza proveedor de atenci??n m??dica o farmac??utico qu?? medicamentos de venta megan son seguros para usted. Nouse descongestivos si tiene presi??n arterial corey sin consultar antes a de la garza proveedor de atenci??n m??dica. ??? Consulte con de la garza proveedor de atenci??n m??dica antes de ingerir cualquier medicamento de venta megan si darnell otros medicamentos recetados. ?? Visita de seguimiento Asista a las citas de seguimiento con de la garza proveedor de atenci??n m??dica o seg??n le hayan indicado. ?? Cu??ndo buscar atenci??n m??dica Llame a de la garza proveedor de atenci??n m??dica de inmediato ante cualquiera de las siguientes situaciones: ??? Tos con mucho esputo de color (mucosidad) ??? Dolor de valarie intenso, dolor en la ryan, el kathy o los o??dos ??? Incapacidad de tragar a causa del dolor de garganta ??? Fiebre de 100.4?F (38?C) o superior , o seg??n lo indicado por de la garza proveedor de atenci??n m??dica ?? Cu??ndo llamar al?? 911 Llame al?? 911 si ocurre algo de lo siguiente: ??? Dolor de pecho, falta de aire, sibilancias o dificultad al respirar ??? Tos con jarred ??? Dolor muy intenso al tragar, sobre todo si est?? acompa??ado de voz ahogada ??? Sensaci??n de muerte ??? Sensaci??n de mareos, desmayos o confusi??n ??? Labios o piel de color azulado, [place] o martir ?? Last Reviewed Date: 2021 ?? [id number] [employer]. Todos los derechos reservados. Esta informaci??n no pretende sustituir la atenci??n m??dica profesional. S??lo de la garza m??dico puede diagnosticar y tratar un problema de rock. ?? * [employer] , CIS S: TRANSCRIBE Mat Silverman MD: VERIFY Event Display: Result: Authored Date: [id number] Chest 2 Views Frontal and Lat Hx of Present Illness: from home, reports increased sob x1 week worsening today. Pt also c o cp that radiates to the back; Reason: Other:; Shortness of Breath, Fever; Clinical Question(s): Pneumonia COMPARISON: 09/26/2022 FINDINGS: LINES AND TUBES: None. LUNGS AND PLEURA: Clear lungs. Normal pulmonary vascularity. No pleural effusion. No pneumothorax. HEART, MEDIASTINUM AND BRONSON: Heart is normal in size. Normal mediastinal and hilar contour. BONES AND SOFT TISSUES: No acute abnormality. IMPRESSION: No acute abnormality. WSN: [id number] Ordering Physician: Claudine Aldana Dictated By: Mat Silverman MD Dictated Date/Time: 10/09/22 6:28 pm Reviewed By: Mat Silverman MD Signed By: Mat Silverman MD Signed Date/Time: 10/09/22 6:28 pm Transcribed By: LOGAN Transcribed Date/Time: 10/09/22 6:[address] Abdomen and Pelvis W contrast IV * [employer] , CIS S: TRANSCRIBE Mayo MG, Umu M: VERIFY Event Display: Result: Authored Date: [id number] EXAMINATION: CT Angio Chest, CT Abd/Pelvis W/ IV Contrast Only INDICATION: from home, reports increased sob x1 week worsening today. Pt also c o cp that radiates to the back; Reason: Other:; PE suspected, Intermediate prob, positive D-dimer,; Clinical Question(s): Pulmonary Embolism; TECHNIQUE: Spiral CTA of the chest was performed after rapid IV contrast administration without cardiac gating triggered by an HOLLY on the main pulmonary artery. Spiral CT of the abdomen and pelvis was then performed in the portal venous phase. Images are formatted in multiple planes using 2-D multiplanar and 3-D maximum intensity projection. 100 cc of Omnipaque 300 was administered intravenously.This study was performed without oral contrast. Weight-based protocol using automatic tube modulation was used to optimize exposure parameters. CTDIvol Body: 8.05 mGy, DLP Body: 315 mGy*cm. ( CTDIvol Body: 4.78 mGy, DLP Body: 997 mGy*cm. ( COMPARISONS: CT angiogram of the chest, abdomen and pelvis dated 09/26/2022. ANGIOGRAPHIC FINDINGS: No pulmonary embolism to the subsegmental level. Normal caliber pulmonary arteries. No acute aortic abnormality seen on this study performed without cardiac gating. The patient is status post abdominal aortic stent graft placement. The abdominal aorta is unchanged in caliber as compared to the recent prior examination. NON-ANGIOGRAPHIC FINDINGS: Pipe Cutter View Findings, Lines and Tubes: None. Trachea and Airways: Patent without evidence of tracheal or endobronchial lesion. Lungs and Pleura: Multiple scattered calcified granuloma. The lungs otherwise appear clear. No effusion or pneumothorax. Mediastinum and bronson: No mass or hematoma. No mediastinal or hilar lymphadenopathy. No esophageal abnormality. Heart: Heart is normal in size. No pericardial effusion. Chest Wall Soft Tissues: Normal. Diaphragm : Normal. Liver: Diffuse low-attenuation throughout the liver parenchyma consistent with hepatic steatosis. No evidence of mass. Gallbladder: Absent consistent with prior cholecystectomy. Bile ducts: No biliary ductal dilation. Spleen: Calcified granuloma are seen in the spleen. Pancreas: Fatty infiltration of the pancreas without focal pancreatic lesion. Adrenal glands: Normal. Kidneys and ureters: No hydronephrosis, stones, or suspicious masses. 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 Bladder: Normal. Reproductive organs: Unremarkable. Stomach, small bowel, and large bowel: Status post partial sigmoid colectomy. The colon otherwise appears unremarkable. The small bowel is normal in caliber. The stomach appears unremarkable. Appendix: The appendix is not visualized and there is postoperative change at the cecal apex, suggesting prior appendectomy. Peritoneum and retroperitoneum: No ascites or pneumoperitoneum. No omental or mesenteric lesions. Lymph nodes: No enlarged lymph nodes. Abdominal and pelvic wall: Subcutaneous density with foci of subcutaneous gas in the anterior abdominal wall likely reflects injection sites. Bones: No acute abnormality. IMPRESSION: 1. No evidence of pulmonary embolism. 2. No acute intra-abdominal or intrapelvic process. 3. Status post abdominal aortic stent graft placement with no change in appearance of the abdominalaorta as compared to the prior examination given differences in the imaging technique. WSN: [id number] Ordering Physician: Latha Hernandez Dictated By: Umu Huber MD Dictated Date/Time: 10/09/22 4:46 pm Reviewed By: Umu Huber MD Signed By: Umu Huber MD Signed Date/Time: 10/09/22 4:46 pm Transcribed By: LOGAN Transcribed Date/Time: 10/09/22 4:24 pm CTA Chest vessels W contrast IV * [facility] , CIS S: TRANSCRIBE Umu Huber MD: VERIFY Event Display: Result: Authored Date: [id number] EXAMINATION: CT Angio Chest, CT Abd/Pelvis W/ IV Contrast Only INDICATION: from home, reports increased sob x1 week worsening today. Pt also c o cp that radiates to the back; Reason: Other:; PE suspected, Intermediate prob, positive D-dimer,; Clinical Question(s): Pulmonary Embolism; TECHNIQUE: Spiral CTA of the chest was performed after rapid IV contrast administration without cardiac gating triggered by an HOLLY on the main pulmonary artery. Spiral CT of the abdomen and pelvis was then performed in the portal venous phase. Images are formatted in multiple planes using 2-D multiplanar and 3-D maximum intensity projection. 100 cc of Omnipaque 300 was administered intravenously.This study was performed without oral contrast. Weight-based protocol using automatic tube modulation was used to optimize exposure parameters. CTDIvol Body: 8.05 mGy, DLP Body: 315 mGy*cm. ( CTDIvol Body: 4.78 mGy, DLP Body: 997 mGy*cm. ( COMPARISONS: CT angiogram of the chest, abdomen and pelvis dated 09/26/2022. ANGIOGRAPHIC FINDINGS: No pulmonary embolism to the subsegmental level. Normal caliber pulmonary arteries. No acute aortic abnormality seen on this study performed without cardiac gating. The patient is status post abdominal aortic stent graft placement. The abdominal aorta is unchanged in caliber as compared to the recent prior examination. NON-ANGIOGRAPHIC FINDINGS: Pipe Cutter View Findings, Lines and Tubes: None. Trachea and Airways: Patent without evidence of tracheal or endobronchial lesion. Lungs and Pleura: Multiple scattered calcified granuloma. The lungs otherwise appear clear. No effusion or pneumothorax. Mediastinum and bronson: No mass or hematoma. No mediastinal or hilar lymphadenopathy. No esophageal abnormality. Heart: Heart is normal in size. No pericardial effusion. Chest Wall Soft Tissues: Normal. Diaphragm : Normal. Liver: Diffuse low-attenuation throughout the liver parenchyma consistent with hepatic steatosis. No evidence of mass. Gallbladder: Absent consistent with prior cholecystectomy. Bile ducts: No biliary ductal dilation. Spleen: Calcified granuloma are seen in the spleen. Pancreas: Fatty infiltration of the pancreas without focal pancreatic lesion. Adrenal glands: Normal. Kidneys and ureters: No hydronephrosis, stones, or suspicious masses. 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 Bladder: Normal. Reproductive organs: Unremarkable. Stomach, small bowel, and large bowel: Status post partial sigmoid colectomy. The colon otherwise appears unremarkable. The small bowel is normal in caliber. The stomach appears unremarkable. Appendix: The appendix is not visualized and there is postoperative change at the cecal apex, suggesting prior appendectomy. Peritoneum and retroperitoneum: No ascites or pneumoperitoneum. No omental or mesenteric lesions. Lymph nodes: No enlarged lymph nodes. Abdominal and pelvic wall: Subcutaneous density with foci of subcutaneous gas in the anterior abdominal wall likely reflects injection sites. Bones: No acute abnormality. IMPRESSION: 1. No evidence of pulmonary embolism. 2. No acute intra-abdominal or intrapelvic process. 3. Status post abdominal aortic stent graft placement with no change in appearance of the abdominalaorta as compared to the prior examination given differences in the imaging technique. WSN: [id number] Ordering Physician: Latha Hernandez Dictated By: Umu Huber MD Dictated Date/Time: 10/09/22 4:46 pm Reviewed By: Umu Huber MD Signed By: Umu Huber MD Signed Date/Time: 10/09/22 4:46 pm Transcribed By: LOGAN Transcribed Date/Time: 10/09/22 4:24 pm Patient Care team information Care Team Personnel Name: Joaquina Jerome RN Position: [facility] RN Member Role: Primary Care Nurse Name: Joselyn Sevilla RN Position: [facility] RN Member Role: Primary Care Nurse Name: Thomas Bright Position: [facility] Outreach Member Role: PCP Address: Address: [address] [place] [address]- Name: Karmen Mandujano RN Position: [facility] Anjel RN Member Role: Primary Care Nurse Name: Margie Castanon RN Position: [facility] RN Member Role: Primary Care Nurse Name: Susy Castaneda RN Position: [facility] RN Member Role: Primary Care Nurse Name: Justin Dailey MD Position: [facility] Infectious Disease MD Member Role: Lifetime Consulting Physician Address: Address: [address] [place] [address] [place] [address]- Name: Sophia Bell RN Position: [facility] RN Member Role: Primary Care Nurse Name: Veronica Davila RN Position: [facility] RN Member Role: Primary Care Nurse Name: Melva Herndon RN Position: [facility] RN Member Role: Primary Care Nurse Name: Karena Penaloza RN Position: [facility] RN Member Role: Primary Care Nurse Name: Fang Adams RN Position: [facility] Needle Loom Weaver Member Role: Primary Care Nurse Name: Karri Jaramillo RN Position: [facility] RN Member Role: Primary Care Nurse Name: Consuelo Alvarenga RN Position: [facility] RN Member Role: Primary Care Nurse Name: Veronica Blanco RN Position: [facility] DANIELLEO RN Member Role: Primary Care Nurse Name: Ramsey Perez RN Position: [facility] RN Member Role: Primary Care Nurse Name: Lazaro Huffman RN Position: [facility] RN Member Role: Primary Care Nurse Name: Jacquelyn Juarez Position: [facility] RN Member Role: Primary Care Nurse Name: Jacquelyn Ramsey RN Position: [facility] RN Member Role: Primary Care Nurse Name: Jennifer Ghosh RN Position: [facility] RN Member Role: Primary Care Nurse Name: Qiana Mansfield RN Position: [facility] RN Member Role: Primary Care Nurse Name: Chuyita Ashley RN Position: [facility] RN Member Role: Primary Care Nurse Name: Elle Blackwood RN Position: [facility] Needle Loom Weaver Member Role: Primary Care Nurse Name: Yamilex Arteaga RN Position: [facility] RN Member Role: Primary Care Nurse Name: Skip Harry RN Position: [facility] RN Member Role: Primary Care Nurse Name: Valentine Perrin RN Position: [facility] RN Member Role: Primary Care Nurse Name: Mark Howell RN Position: [facility] RN Member Role: Primary Care Nurse Name: Elaine Webb RN Position: [facility] RN Member Role: Primary Care Nurse Name: Stephanie Houser RN Position: [facility] RN Member Role: Primary Care Nurse Name: Amber Gu RN Position: [facility] RN Member Role: Primary Care Nurse Name: Reji Zimmerman Jr Position: [facility] JUSTYNA RN W/OE and Tasks Member Role: Primary Care Nurse Name: Dang Padilla RN Position: [facility] RN Member Role: Primary Care Nurse Name: Scot Anderson RN Position: [facility] RN Member Role: Primary Care Nurse Name: Luz Marina Byrd RN Position: [facility] RN Member Role: Primary Care Nurse Name: Joelle Sandoval RN Position: [facility] RN Member Role: Primary Care Nurse Name: Gideon Diaz RN Position: [facility] RN Member Role: Primary Care Nurse Name: Diana Anderson RN Position: [facility] RN Member Role: Primary Care Nurse Name: Thomas Betancur RN Position: [facility] RN Member Role: Primary Care Nurse Name: Vee Mcnamara RN Position: [facility] Hospital Needle Loom Weaver Member Role: Primary Care Nurse Name: Nisreen Greenberg RN Position: [facility] Outreach Member Role: Primary Care Nurse Name: Lanny Bolton RN Position: [facility] RN Member Role: Primary Care Nurse Name: Anthony Carolina RN Position: [facility] RN Member Role: Primary Care Nurse Name: Ana Dupont RN Position: [facility] RN Member Role: Primary Care Nurse Name: Alyssia Durbin RN Position: [facility] RN Member Role: Primary Care Nurse Name: Afshan Galeano RN Position: [facility] SN RN Member Role: Primary Care Nurse Name: Reji Bright RN Position: [facility] RN Member Role: Primary Care Nurse Name: Estefanía Austin RN Position: [facility] RN Member Role: Primary Care Nurse Name: Sarah Carson RN Position: [facility] RN Member Role: Primary Care Nurse Name: Amira Hughes RN Position: [facility] RN Member Role: Primary Care Nurse Name: Rina Dunlap LPN Position: [facility] RN Member Role: Primary Care Nurse Name: Chiquis Callejas RN Position: [facility] Onco RN Member Role: Primary Care Nurse Name: Linda Rajput RN, I Position: [facility] RN Member Role: Primary Care Nurse Name: Veronica Pedroza DO Position: [facility] Resident Member Role: ED Resident Address: Address: [address] [place] [address]- Name: Gardenia Pavon RN Position: [facility] ED RN W/OE and Tasks Member Role: Patient Care Provider Name: Geno Jimenez Position: [facility] ED TA [facility] Name: Barrett Figueroa MD Position: [facility] ED Medicine MD Member Role: ED Attending Physician Address: Address: [address] [place] [address]- Care Team Related Persons Name: SUSY MEADOWS Address: [address] [place] [address] Name: YOANDY TAYLOR Address: home [address] [address]
--- OUTSIDE RECORDS SUMMARY | 2023-02-21 14:51 | XMS_ITS | Continuity of Care Document ---
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 Name Role Phone Thomas Bright Primary Care Physician [phone] Encounter [facility] Date(s): 05/19/22 - 05/20/[address] [address] Encounter Diagnosis Chest pain(Final) - 05/19/22 Discharge Disposition: A-D/C Home Attending Physician: Carmine Jain MD Admitting Physician: Priscilla Sal MD Referring Physician: Not on Staff, Referring MD Allergies, Adverse Reactions, Alerts Substance Reaction Severity Status Lamictal Hives, itch Active Tegretol Hallucinations, aggression A ctive Tylenol itching Active Lobster Persistent Severe Active Percocet 7.5/325 1 C/O: itching Active influenza virus vaccine, inactivated 2 Active traMADol Active oxyCODONE Persistent Mild Active 1makes pt itchy 2Hx of Guillain - [place] Immunizations Given and Recorded Vaccine Date Status Refusal Reason pneumococcal 23-valent vaccine 02/03/17 Given Not Given Vaccine Date Status Refusal Reason pneumococcal 23-valent vaccine 01/25/17 Not Given Patient Refuses Medications atorvastatin 80 mg oral tablet 1 tablet = 80 mg, By Mouth, Daily at bedtime, # 30 tablet, 0 Refills, Maintenance, Tablet, Route toPharmacy Electronically, [id number], [facility] Start Date: 04/02/18 Stop [...] EDT Start Date: 12/23/18 Status: Ordered Isentress 400 mg oral tablet 1 tablet = 400 mg, By Mouth, 2 times a day, Stop Isentress 600mg and take Isentress 400mg twice a day., # 60 tablet, 1 Refills, Maintenance, 05/20/22 14:26:00 EDT, Tablet, [facility]/pharmacy #[id number], Partialfill upon patient request if the [...] coumadin. Check blood work for INR on 05/23/2022 and 05/26/22 . You can stop lovenox once INR is 2.0, # 7 each, 0 Refills, Maintenance, 05/20/22 14:22:00 EDT, So... 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 Hematoma of leg(Confirmed) Active HIV disease(Confirmed) 2002 Active HLD (hyperlipidemia)(Confirmed) Active HTN (hypertension)(Confirmed) Active Hypothyroidism(Confirmed) Active Skin infection(Confirmed) Active PVD (peripheral vascular disease)(Confirmed) Active 1sequelae, left sided weakness Vital Signs Most recent to oldest [Reference Range]: 1 2 3 Height 177 cm (05/20/22 12:01 PM) 177 cm (05/20/22 7:16 AM) 177 cm (05/20/22 5:01 AM) Weight 86.5 kg (05/20/22 5:01 AM) Oxygen Saturation [94-100 %] 98 % (05/20/22 12:01 PM) 96 % (05/20/22 7:16 AM) 99 % (05/20/22 4:57 AM) Pulse Rate [55-90 bpm] 89 bpm (05/20/22 12:01 PM) 71 bpm (05/20/22 7:16 AM) 70 bpm (05/20/22 4:57 AM) Body Mass Index [18.5-24.99 kg/m2] 27.61 kg/m2 *H* (05/20/22 5:01 AM) Blood Pressure [90-138/55-84 mm Hg] 127/70mm Hg (05/20/22 12:01 PM) 110/92mm Hg (05/20/22 7:16 AM) 105/69mm Hg (05/20/22 4:57 AM) Respiratory Rate [16-30 br/min] 18 br/min (05/20/22 12:01 PM) 18 br/min (05/20/22 9:58 AM) 15 br/min *L* (05/20/22 7:16 AM) Temperature [96.8-100.4 DegF] 98.3 DegF (05/20/22 12:01 PM) 98.2 DegF (05/20/22 7:16 AM) 97.7 DegF (05/20/22 4:57 AM) Mode of Delivery (Oxygen) Room air (05/20/22 12:01 PM) Room air (05/20/22 7:16 AM) Room air (05/20/22 4:57 AM) Blood pressure sites Arm, left (05/20/22 12:01 PM) Arm, left (05/20/22 7:16 AM) Arm, left (05/20/22 4:57 AM) Temperature Route Oral (05/20/22 12:01 PM) Oral (05/20/22 7:16 AM) Oral (05/20/22 4:57 AM) Dry Weight 86.5 kg (05/20/22 5:01 AM) Weight Obtained Via Bed scale (05/20/22 5:01 AM) Social History Social History Type Response Smoking Status Never (less than 100 in lifetime) entered on: 10/25/21 Sex Care Team Personnel Name: Thomas Bright Address: [address] [place] [address]
--- OUTSIDE RECORDS SUMMARY | 2023-02-21 14:51 | XMS_ITS | Continuity of Care Document ---
Author Name Unknown Organization [facility] Address [address] [place] [address]- Care Team Providers Care Office Machine Servicer Name Role Phone Thomas Bright Primary Care Physician [phone] Encounter [facility] Date(s): 08/31/20 - 09/30/20 [facility] [address] [place], [place] [address] Attending Physician: Román Adams Admitting Physician: AdmtrRomán Referring Physician: Admtr, Ar8 Allergies, Adverse Reactions, Alerts Substance Reaction Severity Status Lamictal Hives, itch Active Tegretol Hallucinations, aggression A ctive traMADol Active oxyCODONE Persistent Mild Active Tylenol itching Active Lobster Persistent Severe Active Percocet 7.5/325 1 C/O: itching Active influenza virus vaccine, inactivated 2 Active 1makes pt itchy 2Hx of Guillain - [place] Immunizations Given and Recorded Vaccine Date Status Refusal Reason pneumococcal 23-valent vaccine 02/03/17 Given Not Given Vaccine Date Status Refusal Reason pneumococcal 23-valent vaccine 01/25/17 Not Given Patient Refuses Medications aspirin 81 mg oral delayed release tablet See Instructions, [facility] [place], # 30 tablet, 1 Refills, Maintenance, [id number], 175, cm, 02/26/20 14:11:00 EDT, Height, 87.5, kg, 02/26/20 14:11:00 EDT, Dry Weight Start Date: 04/12/20 Status: Ordered atorvastatin 80 mg oral tablet 1 tablet = 80 mg, By Mouth, Daily, # 30 tablet, 0 Refills, Maintenance, Tablet, Route to Pharmacy Electronically, [id number], [facility] Start Date: 04/02/18 [...] 0 Refills, Maintenance, 06/21/20 19:42:00 EDT, Tablet, [facility]/pharmacy #[id number], 175, cm, 06/17/20 8:54:00 EDT, Height, [...] ant GERD (gastroesophageal reflu x disease)(Confirmed) Active 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
--- OUTSIDE RECORDS SUMMARY | 2023-02-21 14:51 | XMS_ITS | Continuity of Care Document ---
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 Name Role Phone Thomas Bright Primary Care Physician Encounter [facility] Date(s): 06/16/20 - 06/17/[address] [address] Encounter Diagnosis DVT of deep femoral vein(Final) - 06/15/20 Discharge Disposition: A-D/C Home Attending Physician: Fabian Florence MD Admitting Physician: Edd Neves MD Referring Physician: Not on Staff, Referring MD Allergies, Adverse Reactions, Alerts Substance Reaction Severity Status Lamictal Hives, itch Active Tegretol Hallucinations, aggression A ctive Tylenol itching Active Lobster Persistent Severe Active Percocet 7.5/325 1 C/O: itching Active influenza virus vaccine, inactivated 2 Active traMADol Active oxyCODONE Persistent Mild Active 1makes pt itchy 2Hx of Guillain - [place] Immunizations Given and Recorded Vaccine Date Status Refusal Reason pneumococcal 23-valent vaccine 02/03/17 Given Not Given Vaccine Date Status Refusal Reason pneumococcal 23-valent vaccine 01/25/17 Not Given Patient Refuses Medications aspirin 81 mg oral delayed release tablet See Instructions, [facility] [place], # 30 tablet, 1 Refills, Maintenance, [facility], 175, cm, 02/26/20 14:11:00 EDT, Height, 87.5, kg, 02/26/20 14:11:00 EDT, Dry Weight Start Date: 04/12/20 Status: Ordered atorvastatin 80 mg oral tablet 1 tablet = 80 mg, By Mouth, Daily, # 30 tablet, 0 Refills, Maintenance, Tablet, Route to Pharmacy Electronically, [id number], [facility] Start Date: 04/02/18 Stop Date: [...] 06/22/20 14:39:00 EDT, 06/17/20 14:39:00 EDT, Tablet, [facility], Partial fill upon patient request, 175, cm, 06/17/20 8:54:00 ED... 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 Hematoma of leg(Confirmed) Active HIV disease(Confirmed) 2003 Active Hypercholesterolemia(Confirmed) 2006 Active HLD (hyperlipidemia)(Confirmed) Active HTN (hypertension)(Confirmed) Active Hypothyroidism(Confirmed) Active Skin infection(Confirmed) Active PVD (peripheral vascular disease)(Confirmed) Active 1sequelae, left sided weakness Results Radiology Reports * Exam Date Time Procedure Performing Provider Status 06/15/20 11:09 PM Chest Portable Nicolette Pope; Auth (Verified) Notes: (Chest Portable) Reason For Exam: Shortness of Breath RESULT: Chest Portable Chest Portable Hx of Present Illness: my legs - pain in legs - numbness and tingling - since last night saw neuro doctor yesterday and had no issues; Reason: Shortness of Breath; Clinical Question(s): CHF COMPARISON: 06/04/2020 FINDINGS: LINES AND TUBES: None. LUNGS AND PLEURA: Clear lungs. Normal pulmonary vascularity. No pleural effusion. No pneumothorax. HEART, MEDIASTINUM AND [place]: Heart is normal in size. Normal mediastinal and hilar contour. BONES AND SOFT TISSUES: No acute abnormality. IMPRESSION: No acute abnormality. WSN: [id number] Ordering Physician: Vee Tomas Dictated By: Dada Paiz MD Dictated Date/Time: 06/15/20 11:23 p Reviewed By: Dada Paiz MD Signed By: Dada Paiz MD Signed Date/Time: 06/15/20 11:23 pm Transcribed By: LOGAN Transcribed Date/Time: 06/15/20 11:22 pm Vital Signs Most recent to oldest [Reference Range]: 1 2 3 Height 175 cm (06/17/20 8:54 AM) 175 cm (06/16/20 7:07 PM) 175 cm (06/16/20 6:53 PM) Weight 91 kg (06/16/20 10:18 AM) 91 kg (06/16/20 2:16 AM) 91 kg (06/15/20 10:27 PM) Oxygen Saturation [94-100 %] 96 % (06/17/20 8:54 AM) 99 % (06/17/20 2:00 AM) 98 % (06/16/20 6:53 PM) Pulse Rate [55-90 bpm] 81 bpm (06/17/20 8:54 AM) 82 bpm (06/17/20 2:00 AM) 88 bpm (06/16/20 6:53 PM) Body Mass Index [18.5-24.99] 29.71 *H* (06/16/20 10:18 AM) 29.71 *H* (06/16/20 2:16 AM) 29.71 *H* (06/15/20 10:27 PM) Blood Pressure [90-138/55-84 mm Hg] 98/64mm Hg (06/17/20 8:54 AM) 130/66mm Hg (06/17/20 2:00 AM) 125/77mm Hg (06/16/20 6:53 PM) Respiratory Rate [16-30 br/min] 18 br/min (06/17/20 2:07 PM) 18 br/min (06/17/20 10:53 AM) 20 br/min (06/17/20 8:54 AM) Temperature [96.8-100.4 DegF] 98.4 DegF (06/17/20 8:54 AM) 98.2 DegF (06/17/20 2:00 AM) 98.4 DegF (06/16/20 6:53 PM) Mode of Delivery (Oxygen) Room air (06/17/20 8:54 AM) Room air (06/17/20 2:00 AM) Room air (06/16/20 6:53 PM) Blood pressure sites Arm, right (06/17/20 8:54 AM) Arm, right (06/17/20 2:00 AM) Arm, right (06/16/20 6:53 PM) Temperature Route Oral (06/17/20 8:54 AM) Oral (06/17/20 2:00 AM) Oral (06/16/20 6:53 PM) Dry Weight 91 kg (06/16/20 10:18 AM) 91 kg (06/16/20 2:16 AM) 91 kg (06/15/20 10:27 PM) Social History Social History Type Response Smoking Status Former smoker; Tobac co user in household: No; Type: Cigarettes; Other: quit in july 2016; Tobacco use times per day: half pack per day; Started at age: 11; entered on: 05/29/18 Sex
--- OUTSIDE RECORDS SUMMARY | 2023-02-21 14:51 | XMS_ITS | Continuity of Care Document ---
Author Name Unknown Organization [facility] Address [address] [place] [address]- Care Team Providers Care Site Director Name Role Phone Thomas Bright Primary Care Physician Encounter [facility] Date(s): 10/14/20 - 11/13/[address] [address] Attending Physician: Not on Staff, Attending MD [...] 1makes pt itchy 2Hx of Guillain - [place] Immunizations Given and Recorded Vaccine Date Status Refusal Reason pneumococcal 23-valent vaccine 02/03/17 Given Not Given Vaccine Date Status Refusal Reason pneumococcal 23-valent vaccine 01/25/17 Not Given Patient Refuses Medications aspirin 81 mg oral delayed release tablet See Instructions, [facility] [place], # 30 tablet, 1 Refills, Maintenance, [facility], 175, cm, 02/26/20 14:11:00 EDT, Height, 87.5, kg, 02/26/20 14:11:00 EDT, Dry Weight Start Date: 04/12/20 Status: Ordered atorvastatin 80 mg oral tablet 1 tablet = 80 mg, By Mouth, Daily, # 30 tablet, 0 Refills, Maintenance, Tablet, Route to Pharmacy Electronically, [id number], [facility] Start Date: 04/02/18 Stop [...] 0 Refills, Maintenance, 10/22/20 8:48:00 EST, Gel, [facility]/pharmacy #[id number], Partial [...] 0 Refills, Maintenance, 10/29/20 9:13:00 EST, Tablet, [facility]/pharmacy #[id number], Partial fill upon patient request if the prescription is for a schedule II opioid drug., 175, cm, 10/28/20 10:07:00 EST, Height, 8... 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
--- OUTSIDE RECORDS SUMMARY | 2023-02-21 14:51 | XMS_ITS | Continuity of Care Document ---
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 Date(s): 01/08/20 - 01/08/[address] [address]- [facility] Encounter Diagnosis Epigastric pain(Final) - 01/08/20 Discharge Disposition: A-D/C Home Attending Physician: Anthony Herrera MD Admitting Physician: Anthony Herrera MD Referring Physician: Not on Staff, Referring MD Allergies, Adverse Reactions, Alerts Substance Reaction Severity Status Lamictal Hives, itch Active Tegretol Hallucinations, aggression A ctive Tylenol itching Active Lobster Persistent Severe Active Percocet 7.5/325 1 C/O: itching Active influenza virus vaccine, inactivated 2 Active traMADol Active oxyCODONE Persistent Mild Active 1makes pt itchy 2Hx of Guillain - [place] Immunizations Given and Recorded Vaccine Date Status Refusal Reason pneumococcal 23-valent vaccine 02/03/17 Given Not Given Vaccine Date Status Refusal Reason pneumococcal 23-valent vaccine 01/25/17 Not Given Patient Refuses Medications atorvastatin 80 mg oral tablet 1 tablet = 80 mg, By Mouth, Daily, # 30 tablet, 0 Refills, Maintenance, Tablet, Route to Pharmacy Electronically, [id number], [facility] Start Date: 04/02/18 Stop [...] 0 Refills,Maintenance, 10/14/19 23:05:00 EST, DIS Tablet, [facility]/pharmacy #[id number], 175, cm, 09/12/19 10:20:00 EST,Height, 86, [...] ant GERD (gastroesophageal reflu x disease)(Confirmed) Active 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 Hematoma of leg(Confirmed) Active HIV disease(Confirmed) 2002 Active Hypercholesterolemia(Confirmed) 2006 Active HLD (hyperlipidemia)(Confirmed) Active HTN (hypertension)(Confirmed) Active Hypothyroidism(Confirmed) Active Skin infection(Confirmed) Active PVD (peripheral vascular disease)(Confirmed) Active 1sequelae, left sided weakness Vital Signs Most recent to oldest [Reference Range]: 1 2 3 Oxygen Saturation [94-100 %] 100 % (01/08/20 11:46 PM) 97 % (01/08/20 10:07 PM) 98 % (01/08/20 6:56 PM) Pulse Rate [55-90 bpm] 71 bpm (01/08/20 11:46 PM) 66 bpm (01/08/20 10:07 PM) 85 bpm (01/08/20 6:56 PM) Blood Pressure [90-138/55-84 mm Hg] 110/88mm Hg (01/08/20 11:46 PM) 108/68mm Hg (01/08/20 10:07 PM) 101/65mm Hg (01/08/20 6:56 PM) Respiratory Rate [16-30 br/min] 20 br/min (01/08/20 11:46 PM) 18 br/min (01/08/20 10:07 PM) 16 br/min (01/08/20 7:56 PM) Temperature [96.8-100.4 DegF] 98.3 DegF (01/08/20 4:06 PM) Mode of Delivery (Oxygen) Room air (01/08/20 11:46 PM) Room air (01/08/20 10:07 PM) Room air (01/08/20 6:56 PM) Blood pressure sites Arm, right (01/08/20 11:46 PM) Arm, right (01/08/20 10:07 PM) Arm, left (01/08/20 6:56 PM) Temperature Route Oral (01/08/20 4:06 PM) Social History Social History Type Response Smoking Status Former smoker; Tobac co user in household: No; Type: Cigarettes; Other: quit in july 2016; Tobacco use times per day: half pack per day; Started at age: 11; entered on: 05/29/18 Sex
--- OUTSIDE RECORDS SUMMARY | 2023-02-21 14:52 | XMS_ITS | Continuity of Care Document ---
Author Name Unknown Organization [facility] Address [address] [place] [id number]- Care Team Providers Care Rubber Press Tender Name Role Phone Thomas Bright Primary Care Physician [phone] Encounter [facility] Date(s): 09/20/22 - 09/20/[address] [address]- Discharge Disposition: A-D/C Home Attending Physician: Ana Escalera MD Admitting Physician: Ana Escalera MD Referring Physician: Not on Staff, Referring MD Allergies, Adverse Reactions, Alerts Substance Reaction Severity Status Lamictal Hives, itch Active Tegretol Hallucinations, aggression A ctive Tylenol itching Active Lobster Persistent Severe Active Percocet 7.5/325 1 C/O: itching Active influenza virus vaccine, inactivated 2 Active traMADol Active oxyCODONE Persistent Mild Active 1makes pt itchy 2Hx of Guillain - [place] Immunizations Given and Recorded Vaccine Date Status Refusal Reason pneumococcal 23-valent vaccine 02/03/17 Given Not Given Vaccine Date Status Refusal Reason pneumococcal 23-valent vaccine 01/25/17 Not Given Patient Refuses Medications atorvastatin 80 mg oral tablet 1 tablet = 80 mg, By Mouth, Daily at bedtime, # 30 tablet, 0 Refills, Maintenance, Tablet, Route toPharmacy Electronically, [id number], 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 Hematoma of leg Confirmed Active HIV disease Confirmed 2003 Active HLD (hyperlipidemia) Confirmed Active HTN (hypertension) Confirmed Active Hypothyroidism Confirmed Active Skin infection Confirmed Active PVD (peripheral vascular disease) Confirmed Active 1sequelae, left sided weakness Vital Signs Most recent to oldest [Reference Range]: 1 2 3 Oxygen Saturation [94-100 %] 100 % (09/20/22 1:09 PM) 100 % (09/20/22 12:50 PM) Pulse Rate [55-90 bpm] 84 bpm (09/20/22 1:09 PM) 83 bpm (09/20/22 12:50 PM) Blood Pressure [90-138/55-84 mm Hg] 135/84mm Hg (09/20/22 1:09 PM) Respiratory Rate [16-30 br/min] 16 br/min (09/20/22 2:55 PM) 18 br/min (09/20/22 1:09 PM) 18 br/min (09/20/22 12:50 PM) Temperature [96.8-100.4 DegF] 98.2 DegF (09/20/22 1:09 PM) Mode of Delivery (Oxygen) Room air (09/20/22 1:09 PM) Room air (09/20/22 12:50 PM) Blood pressure sites Arm, right (09/20/22 1:09 PM) Temperature Route Oral (09/20/22 1:09 PM) Social History Social History Type Response Smoking Status Never (less than 100 in lifetime) entered on: 10/25/21 Sex Male Patient Care team information Care Team Personnel Name: Joaquina Jerome RN Position: [facility] RN Member Role: Primary Care Nurse Name: Joselyn Sevilla RN Position: [facility] RN Member Role: Primary Care Nurse Name: Thomas Bright Position: [facility] Outreach Member Role: PCP Address: Address: [address] [place] [address] Name: Karmen Mandujano RN Position: [facility] Anjel RN Member Role: Primary Care Nurse Name: Margie Castanon RN Position: S RN Member Role: Primary Care Nurse Name: Shahbaz Castaneda RN Position: S RN Member Role: Primary Care Nurse Name: Justin Dailey MD Position: [facility] Infectious Disease MD Member Role: Lifetime Consulting Physician Address: Address: [address] [place] [address] Infectious Disease [address] Name: Sophia Bell RN Position: [facility] ED RN W/OE and Tasks Member Role: Primary Care Nurse Name: Veronica Davila RN Position: [facility] RN Member Role: Primary Care Nurse Name: Melva Herndon RN Position: [facility] RN Member Role: Primary Care Nurse Name: Karena Penaloza RN Position: [facility] RN Member Role: Primary Care Nurse Name: Fang Adams RN Position: [facility] Community Associate Member Role: Primary Care Nurse Name: Karri Jaramillo RN Position: [facility] RN Member Role: Primary Care Nurse Name: Consuelo Alvarenga RN Position: [facility] RN Member Role: Primary Care Nurse Name: Veronica Blanco RN Position: [facility] DANIELLEO RN Member Role: Primary Care Nurse Name: Ramsey Perez RN Position: [facility] RN Member Role: Primary Care Nurse Name: Lazaro Huffman RN Position: [facility] RN Member Role: Primary Care Nurse Name: Jacquelyn Juarez Position: [facility] RN Member Role: Primary Care Nurse Name: Jacquelyn Ramsey RN Position: [facility] RN Member Role: Primary Care Nurse Name: Jennifer Ghosh RN Position: [facility] RN Member Role: Primary Care Nurse Name: Qiana Mansfield RN Position: [facility] RN Member Role: Primary Care Nurse Name: Chuyita Ashley RN Position: [facility] RN Member Role: Primary Care Nurse Name: Elle Blackwood RN Position: [facility] Community Associate Member Role: Primary Care Nurse Name: Yamilex Arteaga RN Position: [facility] RN Member Role: Primary Care Nurse Name: Skip Harry RN Position: [facility] RN Member Role: Primary Care Nurse Name: Valentine Perrin RN Position: [facility] RN Member Role: Primary Care Nurse Name: Mark Howell RN Position: [facility] RN Member Role: Primary Care Nurse Name: Elaine Webb RN Position: [facility] RN Member Role: Primary Care Nurse Name: Stephanie Houser RN Position: [facility] RN Member Role: Primary Care Nurse Name: Amber Gu RN Position: [facility] RN Member Role: Primary Care Nurse Name: Reji Zimmerman Jr Position: [facility] ED RN W/OE and Tasks Member Role: Primary Care Nurse Name: Dang Padilla RN Position: [facility] RN Member Role: Primary Care Nurse Name: Scot Anderson RN Position: [facility] RN Member Role: Primary Care Nurse Name: Luz Marina Byrd RN Position: [facility] RN Member Role: Primary Care Nurse Name: Joelle Sandoval RN Position: [facility] RN Member Role: Primary Care Nurse Name: Gideon Diaz RN Position: [facility] RN Member Role: Primary Care Nurse Name: Diana Anderson RN Position: [facility] RN Member Role: Primary Care Nurse Name: Thomas Betancur RN Position: [facility] RN Member Role: Primary Care Nurse Name: Vee Mcnamara RN Position: [facility] Community Associate Member Role: Primary Care Nurse Name: Nisreen Greenberg RN Position: [facility] Outreach Member Role: Primary Care Nurse Name: Lanny Bolton RN Position: [facility] RN Member Role: Primary Care Nurse Name: Anthony Carolina RN Position: [facility] RN Member Role: Primary Care Nurse Name: Ana Dupont RN Position: [facility] RN Member Role: Primary Care Nurse Name: Alyssia Durbin RN Position: [facility] RN Member Role: Primary Care Nurse Name: Afshan Galeano RN Position: [facility] SN RN Member Role: Primary Care Nurse Name: Reji Bright RN Position: [facility] RN Member Role: Primary Care Nurse Name: Estefanía Austin RN Position: [facility] RN Member Role: Primary Care Nurse Name: Sarah Carson RN Position: [facility] RN Member Role: Primary Care Nurse Name: Amira Hughes RN Position: [facility] RN Member Role: Primary Care Nurse Name: Rina Dunlap LPN Position: [facility] RN Member Role: Primary Care Nurse Name: Chiquis Callejas RN Position: [facility] Onco RN Member Role: Primary Care Nurse Name: Linda Rajput RN, I Position: [facility] RN Member Role: Primary Care Nurse Name: Ana Escalera MD Position: [facility] ED Medicine MD Member Role: Admitting Physician Address: Address: [address] [place] [address] [place] [address]- Name: Margarita Barboza RN Position: [facility] ED RN W/OE and Tasks Member Role: Patient Care Provider Care Team Related Persons Name: SHAHBAZ MEADOWS Address: [address] [place] [address] Name: YOANDY TAYLOR Address: home [address] [place] [id number]
--- OUTSIDE RECORDS SUMMARY | 2023-02-21 14:52 | XMS_ITS | Continuity of Care Document ---
Author Name Unknown Organization [facility] Address [address] [place] [id number]- Care Team Providers Care Parts Administrator Name Role Phone Thomas Bright Primary Care Physician Encounter [facility] Date(s): 07/03/22 - 07/03/[address] [address]- Encounter Diagnosis Abdominal pain in male(Final) - 07/03/22 Discharge Disposition: A-D/C Home Attending Physician: Tim Duron MD Admitting Physician: Tim Duron MD Referring Physician: Not on Staff, Referring MD Allergies, Adverse Reactions, Alerts Substance Reaction Severity Status Lamictal Hives, itch Active Tegretol Hallucinations, aggression A ctive Tylenol itching Active Lobster Persistent Severe Active Percocet 7.5/325 1 C/O: itching Active influenza virus vaccine, inactivated 2 Active traMADol Active oxyCODONE Persistent Mild Active 1makes pt itchy 2Hx of Guillain - Edmond Immunizations Given and Recorded Vaccine Date Status Refusal Reason pneumococcal 23-valent vaccine 02/03/17 Given Not Given Vaccine Date Status Refusal Reason pneumococcal 23-valent vaccine 01/25/17 Not Given Patient Refuses Medications atorvastatin 80 mg oral tablet 1 tablet = 80 mg, By Mouth, Daily at bedtime, # 30 tablet, 0 Refills, Maintenance, Tablet, Route toPharmacy Electronically, [id number], [facility] Start Date: 04/02/18 [...] 1 Refills, Maintenance, 05/20/22 14:26:00 EDT, Tablet, [facility][id number], Partialfill upon patient request if [...] Start Date: 06/02/22 Status: Ordered MorPHINE Inj 4 mg, Injection, IV Push Slowly, Once, STAT, 07/03/22 14:03:00 EST, Stop date 07/03/22 14:03:00 EST Start Date: 07/03/22 Stop Date: 07/03/22 Status: Completed pantoprazole 40 mg oral delayed [...] Active GERD (gastroesophageal reflux disease) Confirmed Active Guillain-Edmond syndrome 1 Confirmed Active Hematoma of leg Confirmed Active HIV disease Confirmed 2002 Active HLD (hyperlipidemia) Confirmed Active HTN (hypertension) Confirmed Active Hypothyroidism Confirmed Active Skin infection Confirmed Active PVD (peripheral vascular disease) Confirmed Active 1sequelae, left sided weakness Results Radiology Reports * Exam Date Time Procedure Performing Provider Status 07/03/22 3:[address] Angio Abdomen and Pelvis Raya Rowe; Auth (Verified) Notes: (CT Angio Abdomen and Pelvis) Reason For Exam: AAA, surveillance;Other: RESULT: CT Angio Abdomen and Pelvis EXAMINATION: CT Angio Chest, CT Angio Abdomen and Pelvis INDICATION: Hx of Present Illness: pt c o mid abdominal pain hx anyerism states feels the same as in the past. Pt denies n v, fever chills difficulty urinating bm. Pt states abdominal pain accompanied with headaches for the past 4 days. Pt states hx dvt on blood thinners.; Reason: Other:; Aortic disease, nontraumatic; Clinical Question(s): Other:; AAA; Order Comment: TECHNIQUE: Spiral CTA of the chest, abdomen, and pelvis was performed after rapid IV contrast administration without cardiac gating triggered by an HOLLY on the aorta. Images are formatted in multiple planes using 2-D multiplanar and 3-D maximum intensity projection. 100 cc of Omnipaque 350 was administered intravenously. Weight-based protocol using automatic tube modulation was used to optimize exposure parameters. CTDIvol Body: 10.35 mGy, DLP Body: 605 mGy*cm. COMPARISONS: None. ANGIOGRAPHIC FINDINGS: Normal caliber intrathoracic aorta without flow-limiting stenosis of the three- vessel arch without significant atherosclerotic disease. Normal caliber pulmonary arteries, well opacified to the subsegmental level without evidence of pulmonary embolism. Patent celiac axis with conventional hepatic arterial anatomy. SMA is widely patent. Both renal arteries are widely patent. Patient has undergone aortobiiliac stent graft repair of an infrarenal abdominal aortic aneurysm. There is no evidence of endoleak or other complication. Excluded aneurysm sac is almost entirely collapsed, stable in appearance from multiple recent studies. No evidence of dilatation of proximal or distal landing zones. Patent iliac and visualized femoral vasculature. NON-ANGIOGRAPHIC FINDINGS: Security Vehicle Patrol Officer View Findings, Lines and Tubes: None. Trachea and Airways: Patent without evidence of tracheal or endobronchial lesion. Lungs and Pleura: Subtle subpleural opacity in the lateral basal left lower lobe is similar to recent prior studies, possibly an area of chronic atelectasis (series 604 measured 56). Mild atelectasisand a few small granulomas within the lungs. No effusion or pneumothorax. Mediastinum and bronson: No mass or hematoma. No mediastinal or hilar lymphadenopathy. Esophagus is patulous. Heart: Heart is normal in size. No pericardial effusion. Chest Wall Soft Tissues: Normal. Diaphragm: No significant abnormality. Liver: Normal. Gallbladder: Surgically absent. Bile ducts: No biliary ductal dilation. Spleen: A few small splenic granulomata. Spleen is normal in size. Small accessory spleen is noted. Pancreas: Mild fatty atrophy without ductal dilatation or suspicious lesion. No surrounding inflammatory change. Adrenal glands: Normal. Kidneys and ureters: No hydronephrosis, stones, or suspicious masses. Bladder: Normal. Reproductive organs: Unremarkable. Stomach, small bowel, and large bowel: The stomach is decompressed, limiting assessment, Small bowel loops are normal in course and caliber without evidence of obstruction. Small bowel contents are fecalized, a nonspecific finding that can be seen in the setting of slow small bowel transit, reflux across the ileocecal valve, or small intestinal bacterial or fungal overgrowth. Colorectal anastomosis is noted without complication. No pericolonic inflammatory change. Appendix: Surgically absent. Peritoneum and retroperitoneum: No ascites or pneumoperitoneum. No omental or mesenteric lesions. Lymph nodes: No enlarged lymph nodes. Abdominal and pelvic wall: Unremarkable. Bones: Mild loss of height at T6, unchanged. IMPRESSION: No evidence of acute process in the chest, abdomen, or pelvis. Stable appearance of the aortobiiliac stent graft from multiple recent prior studies with near complete resolution of the excluded aneurysm sac. No endoleak or other complication. No other acute process identified. The impression above was relayed to Reji Hayes MD by Dr. Torey Diana over the phone on 07/03/2022 3:29 PM. WSN: [id number] Ordering Physician: Reji Hayes Dictated By: Torey Diana MD Dictated Date/Time: 07/03/22 3:29 pm Reviewed By: Torey Diana MD Signed By: Torey Diana MD Signed Date/Time: 07/03/22 3:29 pm Transcribed By: LOGAN Transcribed Date/Time: 07/03/22 3:14 pm * Exam Date Time Procedure Performing Provider Status 07/03/22 3:[address] Angio Chest Raya Rowe; Aut h (Verified) Notes: (CT Angio Chest) Reason For Exam: Aortic disease, nontraumatic;Other: RESULT: CT Angio Chest EXAMINATION: CT Angio Chest, CT Angio Abdomen and Pelvis INDICATION: Hx of Present Illness: pt c o mid abdominal pain hx anyerism states feels the same as in the past. Pt denies n v, fever chills difficulty urinating bm. Pt states abdominal pain accompanied with headaches for the past 4 days. Pt states hx dvt on blood thinners.; Reason: Other:; Aortic disease, nontraumatic; Clinical Question(s): Other:; AAA; Order Comment: TECHNIQUE: Spiral CTA of the chest, abdomen, and pelvis was performed after rapid IV contrast administration without cardiac gating triggered by an HOLLY on the aorta. Images are formatted in multiple planes using 2-D multiplanar and 3-D maximum intensity projection. 100 cc of Omnipaque 350 was administered intravenously. Weight-based protocol using automatic tube modulation was used to optimize exposure parameters. CTDIvol Body: 10.35 mGy, DLP Body: 605 mGy*cm. COMPARISONS: None. ANGIOGRAPHIC FINDINGS: Normal caliber intrathoracic aorta without flow-limiting stenosis of the three- vessel arch without significant atherosclerotic disease. Normal caliber pulmonary arteries, well opacified to the subsegmental level without evidence of pulmonary embolism. Patent celiac axis with conventional hepatic arterial anatomy. SMA is widely patent. Both renal arteries are widely patent. Patient has undergone aortobiiliac stent graft repair of an infrarenal abdominal aortic aneurysm. There is no evidence of endoleak or other complication. Excluded aneurysm sac is almost entirely collapsed, stable in appearance from multiple recent studies. No evidence of dilatation of proximal or distal landing zones. Patent iliac and visualized femoral vasculature. NON-ANGIOGRAPHIC FINDINGS: Security Vehicle Patrol Officer View Findings, Lines and Tubes: None. Trachea and Airways: Patent without evidence of tracheal or endobronchial lesion. Lungs and Pleura: Subtle subpleural opacity in the lateral basal left lower lobe is similar to recent prior studies, possibly an area of chronic atelectasis (series 604 measured 56). Mild atelectasisand a few small granulomas within the lungs. No effusion or pneumothorax. Mediastinum and bronson: No mass or hematoma. No mediastinal or hilar lymphadenopathy. Esophagus is patulous. Heart: Heart is normal in size. No pericardial effusion. Chest Wall Soft Tissues: Normal. Diaphragm: No significant abnormality. Liver: Normal. Gallbladder: Surgically absent. Bile ducts: No biliary ductal dilation. Spleen: A few small splenic granulomata. Spleen is normal in size. Small accessory spleen is noted. Pancreas: Mild fatty atrophy without ductal dilatation or suspicious lesion. No surrounding inflammatory change. Adrenal glands: Normal. Kidneys and ureters: No hydronephrosis, stones, or suspicious masses. Bladder: Normal. Reproductive organs: Unremarkable. Stomach, small bowel, and large bowel: The stomach is decompressed, limiting assessment, Small bowel loops are normal in course and caliber without evidence of obstruction. Small bowel contents are fecalized, a nonspecific finding that can be seen in the setting of slow small bowel transit, reflux across the ileocecal valve, or small intestinal bacterial or fungal overgrowth. Colorectal anastomosis is noted without complication. No pericolonic inflammatory change. Appendix: Surgically absent. Peritoneum and retroperitoneum: No ascites or pneumoperitoneum. No omental or mesenteric lesions. Lymph nodes: No enlarged lymph nodes. Abdominal and pelvic wall: Unremarkable. Bones: Mild loss of height at T6, unchanged. IMPRESSION: No evidence of acute process in the chest, abdomen, or pelvis. Stable appearance of the aortobiiliac stent graft from multiple recent prior studies with near complete resolution of the excluded aneurysm sac. No endoleak or other complication. No other acute process identified. The impression above was relayed to Reji Hayes MD by Dr. Torey Diana over the phone on 07/03/2022 3:29 PM. WSN: [id number] Ordering Physician: Reji Hayes Dictated By: Torey Diana MD Dictated Date/Time: 07/03/22 3:29 pm Reviewed By: Torey Diana MD Signed By: Torey Diana MD Signed Date/Time: 07/03/22 3:29 pm Transcribed By: LOGAN Transcribed Date/Time: 07/03/22 3:14 pm Vital Signs Most recent to oldest [Reference Range]: 1 2 3 Oxygen Saturation [94-100 %] 96 % (07/03/22 7:00 PM) 100 % (07/03/22 4:35 PM) 97 % (07/03/22 2:41 PM) Pulse Rate [55-90 bpm] 67 bpm (07/03/22 7:00 PM) 77 bpm (07/03/22 4:35 PM) 71 bpm (07/03/22 2:41 PM) Blood Pressure [90-138/55-84 mm Hg] 116/76mm Hg (07/03/22 7:00 PM) 113/95mm Hg (07/03/22 4:35 PM) 113/71mm Hg (07/03/22 2:41 PM) Respiratory Rate [16-30 br/min] 18 br/min (07/03/22 7:00 PM) 16 br/min (07/03/22 4:35 PM) 18 br/min (07/03/22 2:54 PM) Temperature [96.8-100.4 DegF] 98.1 DegF (07/03/22 11:50 AM) Mode of Delivery (Oxygen) Room air (07/03/22 7:00 PM) Room air (07/03/22 4:35 PM) Room air (07/03/22 2:41 PM) Blood pressure sites Arm, right (07/03/22 2:41 PM) Temperature Route Oral (07/03/22 11:50 AM) Social History Social History Type Response Smoking Status Never (less than 100 in lifetime) entered on: 10/25/21 Sex Note * Abigail MG, Reji Granados: PERFORM Event Display: Patient Education Leaflets Authored Date: [id number] Abdominal Pain, Unknown Cause (Adult) ?? [id number] Causas desconocidas del dolor abdominal en adultos [...] vigile cualquier s??ntoma nuevo,dificultad o empeoramiento de cedlilo afecci??n. En los d??as siguientes, el dolor [...] todo lo que pueda causar los s??ntomas. [place] puede incluir no agueda medicamentos,a menos que [...] per??odo ?? Last Reviewed Date: 2021 ?? [id number] [employer]. Todos los derechos reservados. Esta informaci??n no pretende sustituir la atenci??n m??dica profesional. S??lo cedillo m??dico puede diagnosticar y tratar un problema de rock. ?? CTA Abdominal vessels and Pelvis vessels W contrast IV * [facility] , CIS S: TRANSCRIGEOFF Diana MD, Torey Locke: VERIFY Event Display: Result: Authored Date: [id number] EXAMINATION: CT Angio Chest, CT Angio Abdomen and Pelvis INDICATION: Hx of Present Illness: pt c o mid abdominal pain hx anyerism states feels the same as in the past. Pt denies n v, fever chills difficulty urinating bm. Pt states abdominal pain accompanied with headaches for the past 4 days. Pt states hx dvt on blood thinners.; Reason: Other:; Aortic disease, nontraumatic; Clinical Question(s): Other:; AAA; Order Comment: TECHNIQUE: Spiral CTA of the chest, abdomen, and pelvis was performed after rapid IV contrast administration without cardiac gating triggered by an HOLLY on the aorta. Images are formatted in multiple planes using 2-D multiplanar and 3-D maximum intensity projection. 100 cc of Omnipaque 350 was administered intravenously. Weight-based protocol using automatic tube modulation was used to optimize exposure parameters. CTDIvol Body: 10.35 mGy, DLP Body: 605 mGy*cm. COMPARISONS: None. ANGIOGRAPHIC FINDINGS: Normal caliber intrathoracic aorta without flow-limiting stenosis of the three- vessel arch without significant atherosclerotic disease. Normal caliber pulmonary arteries, well opacified to the subsegmental level without evidence of pulmonary embolism. Patent celiac axis with conventional hepatic arterial anatomy. SMA is widely patent. Both renal arteries are widely patent. Patient has undergone aortobiiliac stent graft repair of an infrarenal abdominal aortic aneurysm. There is no evidence of endoleak or other complication. Excluded aneurysm sac is almost entirely collapsed, stable in appearance from multiple recent studies. No evidence of dilatation of proximal or distal landing zones. Patent iliac and visualized femoral vasculature. NON-ANGIOGRAPHIC FINDINGS: Security Vehicle Patrol Officer View Findings, Lines and Tubes: None. Trachea and Airways: Patent without evidence of tracheal or endobronchial lesion. Lungs and Pleura: Subtle subpleural opacity in the lateral basal left lower lobe is similar to recent prior studies, possibly an area of chronic atelectasis (series 604 measured 56). Mild atelectasisand a few small granulomas within the lungs. No effusion or pneumothorax. Mediastinum and bronson: No mass or hematoma. No mediastinal or hilar lymphadenopathy. Esophagus is patulous. Heart: Heart is normal in size. No pericardial effusion. Chest Wall Soft Tissues: Normal. Diaphragm: No significant abnormality. Liver: Normal. Gallbladder: Surgically absent. Bile ducts: No biliary ductal dilation. Spleen: A few small splenic granulomata. Spleen is normal in size. Small accessory spleen is noted. Pancreas: Mild fatty atrophy without ductal dilatation or suspicious lesion. No surrounding inflammatory change. Adrenal glands: Normal. Kidneys and ureters: No hydronephrosis, stones, or suspicious masses. Bladder: Normal. Reproductive organs: Unremarkable. Stomach, small bowel, and large bowel: The stomach is decompressed, limiting assessment, Small bowel loops are normal in course and caliber without evidence of obstruction. Small bowel contents are fecalized, a nonspecific finding that can be seen in the setting of slow small bowel transit, reflux across the ileocecal valve, or small intestinal bacterial or fungal overgrowth. Colorectal anastomosis is noted without complication. No pericolonic inflammatory change. Appendix: Surgically absent. Peritoneum and retroperitoneum: No ascites or pneumoperitoneum. No omental or mesenteric lesions. Lymph nodes: No enlarged lymph nodes. Abdominal and pelvic wall: Unremarkable. Bones: Mild loss of height at T6, unchanged. IMPRESSION: No evidence of acute process in the chest, abdomen, or pelvis. Stable appearance of the aortobiiliac stent graft from multiple recent prior studies with near complete resolution of the excluded aneurysm sac. No endoleak or other complication. No other acute process identified. The impression above was relayed to Reji Hayes MD by Dr. Torey Diana over the phone on 07/03/2022 3:29 PM. WSN: [id number] Ordering Physician: Reji Hayes Dictated By: Torey Diana MD Dictated Date/Time: 07/03/22 3:29 pm Reviewed By: Torey Diana MD Signed By: Torey Diana MD Signed Date/Time: 07/03/22 3:29 pm Transcribed By: CSFeliberto Transcribed Date/Time: 07/03/22 3:14 pm CTA Chest vessels W contrast IV * [facility] , CIS S: TRANSCRIBE Torey Diana MD: VERIFY Event Display: Result: Authored Date: [id number] EXAMINATION: CT Angio Chest, CT Angio Abdomen and Pelvis INDICATION: Hx of Present Illness: pt c o mid abdominal pain hx anyerism states feels the same as in the past. Pt denies n v, fever chills difficulty urinating bm. Pt states abdominal pain accompanied with headaches for the past 4 days. Pt states hx dvt on blood thinners.; Reason: Other:; Aortic disease, nontraumatic; Clinical Question(s): Other:; AAA; Order Comment: TECHNIQUE: Spiral CTA of the chest, abdomen, and pelvis was performed after rapid IV contrast administration without cardiac gating triggered by an HOLLY on the aorta. Images are formatted in multiple planes using 2-D multiplanar and 3-D maximum intensity projection. 100 cc of Omnipaque 350 was administered intravenously. Weight-based protocol using automatic tube modulation was used to optimize exposure parameters. CTDIvol Body: 10.35 mGy, DLP Body: 605 mGy*cm. COMPARISONS: None. ANGIOGRAPHIC FINDINGS: Normal caliber intrathoracic aorta without flow-limiting stenosis of the three- vessel arch without significant atherosclerotic disease. Normal caliber pulmonary arteries, well opacified to the subsegmental level without evidence of pulmonary embolism. Patent celiac axis with conventional hepatic arterial anatomy. SMA is widely patent. Both renal arteries are widely patent. Patient has undergone aortobiiliac stent graft repair of an infrarenal abdominal aortic aneurysm. There is no evidence of endoleak or other complication. Excluded aneurysm sac is almost entirely collapsed, stable in appearance from multiple recent studies. No evidence of dilatation of proximal or distal landing zones. Patent iliac and visualized femoral vasculature. NON-ANGIOGRAPHIC FINDINGS: Security Vehicle Patrol Officer View Findings, Lines and Tubes: None. Trachea and Airways: Patent without evidence of tracheal or endobronchial lesion. Lungs and Pleura: Subtle subpleural opacity in the lateral basal left lower lobe is similar to recent prior studies, possibly an area of chronic atelectasis (series 604 measured 56). Mild atelectasisand a few small granulomas within the lungs. No effusion or pneumothorax. Mediastinum and bronson: No mass or hematoma. No mediastinal or hilar lymphadenopathy. Esophagus is patulous. Heart: Heart is normal in size. No pericardial effusion. Chest Wall Soft Tissues: Normal. Diaphragm: No significant abnormality. Liver: Normal. Gallbladder: Surgically absent. Bile ducts: No biliary ductal dilation. Spleen: A few small splenic granulomata. Spleen is normal in size. Small accessory spleen is noted. Pancreas: Mild fatty atrophy without ductal dilatation or suspicious lesion. No surrounding inflammatory change. Adrenal glands: Normal. Kidneys and ureters: No hydronephrosis, stones, or suspicious masses. Bladder: Normal. Reproductive organs: Unremarkable. Stomach, small bowel, and large bowel: The stomach is decompressed, limiting assessment, Small bowel loops are normal in course and caliber without evidence of obstruction. Small bowel contents are fecalized, a nonspecific finding that can be seen in the setting of slow small bowel transit, reflux across the ileocecal valve, or small intestinal bacterial or fungal overgrowth. Colorectal anastomosis is noted without complication. No pericolonic inflammatory change. Appendix: Surgically absent. Peritoneum and retroperitoneum: No ascites or pneumoperitoneum. No omental or mesenteric lesions. Lymph nodes: No enlarged lymph nodes. Abdominal and pelvic wall: Unremarkable. Bones: Mild loss of height at T6, unchanged. IMPRESSION: No evidence of acute process in the chest, abdomen, or pelvis. Stable appearance of the aortobiiliac stent graft from multiple recent prior studies with near complete resolution of the excluded aneurysm sac. No endoleak or other complication. No other acute process identified. The impression above was relayed to Reji Hayes MD by Dr. Torey Diana over the phone on 07/03/2022 3:29 PM. WSN: [id number] Ordering Physician: Reji Hayes Dictated By: Torey Diana MD Dictated Date/Time: 07/03/22 3:29 pm Reviewed By: Torey Diana MD Signed By: Torey Diana MD Signed Date/Time: 07/03/22 3:29 pm Transcribed By: CSFeliberto Transcribed Date/Time: 07/03/22 3:14 pm Patient Care team information Care Team Personnel Name: Joaquina Jerome RN Position: [facility] RN Member Role: Primary Care Nurse Name: Joselyn Sevilla RN Position: [facility] RN Member Role: Primary Care Nurse Name: Thomas Bright Position: [facility] Outreach Member Role: PCP Address: Address: [address] [place] [id number]- Name: Karmen Mandujano RN Position: [facility] Rad RN Member Role: Primary Care Nurse Name: Margie Castanon RN Position: [facility] RN Member Role: Primary Care Nurse Name: Susy Castaneda RN Position: [facility] RN Member Role: Primary Care Nurse Name: Justin Dailey MD Position: [facility] Infectious Disease MD Member Role: [employer] Consulting Physician Address: Address: [address] [place] [address] [place] [address]- Name: Vreonica Davila RN Position: [facility] RN Member Role: Primary Care Nurse Name: Melva Herndon RN Position: [facility] RN Member Role: Primary Care Nurse Name: Karena Penaloza RN Position: [facility] RN Member Role: Primary Care Nurse Name: Fang Adams RN Position: [facility] [employer] Member Role: Primary Care Nurse Name: Karri Jaramillo RN Position: [facility] RN Member Role: Primary Care Nurse Name: Consuelo Alvarenga RN Position: [facility] RN Member Role: Primary Care Nurse Name: Veronica Blanco RN Position: [facility] PCO RN Member Role: Primary Care Nurse Name: Ramsey Perez RN Position: [facility] RN Member Role: Primary Care Nurse Name: Lazaro Huffman RN Position: [facility] RN Member Role: Primary Care Nurse Name: Jacquelyn Juarez Position: [facility] RN Member Role: Primary Care Nurse Name: Jacquelyn Ramsey RN Position: [facility] RN Member Role: Primary Care Nurse Name: Jennifer Ghosh RN Position: [facility] RN Member Role: Primary Care Nurse Name: Qiana Mansfield RN Position: [facility] RN Member Role: Primary Care Nurse Name: Chuyita Ashley RN Position: [facility] RN Member Role: Primary Care Nurse Name: Elle Blackwood RN Position: [facility] [employer] Member Role: Primary Care Nurse Name: Yamilex Arteaga RN Position: [facility] RN Member Role: Primary Care Nurse Name: Skip Harry RN Position: [facility] RN Member Role: Primary Care Nurse Name: Valentine Perrin RN Position: [facility] RN Member Role: Primary Care Nurse Name: Mark Howell RN Position: [facility] RN Member Role: Primary Care Nurse Name: Elaine Webb RN Position: [facility] RN Member Role: Primary Care Nurse Name: Stephanie Houser RN Position: [facility] RN Member Role: Primary Care Nurse Name: Amber Gu RN Position: [facility] RN Member Role: Primary Care Nurse Name: Reji Zimmerman Jr Position: [facility] ED RN W/OE and Tasks Member Role: Primary Care Nurse Name: Dang Padilla RN Position: [facility] RN Member Role: Primary Care Nurse Name: Scot Anderson RN Position: [facility] RN Member Role: Primary Care Nurse Name: Luz Marina Byrd RN Position: [facility] RN Member Role: Primary Care Nurse Name: Joelle Sandoval RN Position: [facility] RN Member Role: Primary Care Nurse Name: Gideon Diaz RN Position: [facility] RN Member Role: Primary Care Nurse Name: Diana Anderson RN Position: [facility] RN Member Role: Primary Care Nurse Name: Thomas Betancur RN Position: [facility] RN Member Role: Primary Care Nurse Name: Vee Mcnamara RN Position: [facility] Ski Maker Wood Member Role: Primary Care Nurse Name: Nisreen Greenberg RN Position: [facility] Outreach Member Role: Primary Care Nurse Name: Lanny Bolton RN Position: [facility] RN Member Role: Primary Care Nurse Name: Anthony Carolina RN Position: [facility] RN Member Role: Primary Care Nurse Name: Ana Dupont RN Position: [facility] RN Member Role: Primary Care Nurse Name: Alyssia Durbin RN Position: [facility] RN Member Role: Primary Care Nurse Name: Afshan Galeano RN Position: [facility] RN Member Role: Primary Care Nurse Name: Reji Bright RN Position: [facility] RN Member Role: Primary Care Nurse Name: Estefanía Austin RN Position: [facility] RN Member Role: Primary Care Nurse Name: Sarah Carson RN Position: [facility] RN Member Role: Primary Care Nurse Name: Amira Hughes RN Position: [facility] RN Member Role: Primary Care Nurse Name: Chiquis Callejas RN Position: [facility] Onco RN Member Role: Primary Care Nurse Name: Linda Rajput RN, I Position: [facility] RN Member Role: Primary Care Nurse Name: iTm Duron MD Position: [facility] ED Medicine MD Member Role: Admitting Physician Address: Address: [address] [place] [address]- Name: Naina Strong Position: [facility] ED TA [facility] Name: Sophia Chaidez RN Position: [facility] ED RN W/OE and Tasks Member Role: Patient Care Provider Name: Reji Hayes MD Position: [facility] Resident Member Role: ED Resident Address: Address: [address] [place] [address]- Care Team Related Persons Name: SUSY MEADOWS Address: [address] [place] [address] Name: YOANDY TAYLOR Address: home [address] [address]
--- OUTSIDE RECORDS SUMMARY | 2023-02-21 14:52 | XMS_ITS | Continuity of Care Document ---
Author Name Unknown Organization [facility] Address [address] [place] [address]- Care Team Providers Care Starbucks Clerk Name Role Phone Thomas Bright Primary Care Physician [phone] Encounter [facility] Date(s): 03/14/22 - 04/13/22 [facility] [address] [place] [address]- Attending Physician: Román Adams Admitting Physician: Román Adams Referring Physician: AdmRomán colón Allergies, Adverse Reactions, Alerts Substance Reaction Severity Status Lamictal Hives, itch Active Tegretol Hallucinations, aggression A ctive Lobster Persistent Severe Active Percocet 7.5/325 1 C/O: itching Active influenza virus vaccine, inactivated 2 Active traMADol Active oxyCODONE Persistent Mild Active Tylenol itching Active 1makes pt itchy 2Hx of Guillain - [place] Immunizations Given and Recorded Vaccine Date Status Refusal Reason pneumococcal 23-valent vaccine 02/03/17 Given Not Given Vaccine Date Status Refusal Reason pneumococcal 23-valent vaccine 01/25/17 Not Given Patient Refuses Medications atorvastatin 80 mg oral tablet 1 tablet = 80 mg, By Mouth, Daily, # 30 tablet, 0 Refills, Maintenance, Tablet, Route to Pharmacy Electronically, [id number], [facility] Start Date: 04/02/18 Stop Date: 05/02/18 [...] Maintenance, 10/15/21 21:12:00 EST, DIS Tablet, [facility]/pharmacy #[id number], Partial fill upon patient [...] Active GERD (gastroesophageal reflu x disease)(Confirmed) Active 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
--- OUTSIDE RECORDS SUMMARY | 2023-02-21 14:52 | XMS_ITS | Continuity of Care Document ---
Author Name Unknown Organization [facility] Address [address] [place] [address]- Care Team Providers Care Bisque Placer Name Role Phone Thomas Bright Primary Care Physician Encounter [facility] Date(s): 05/01/22 - 05/01/[address] [address]- Discharge Disposition: A-D/C Walkout Attending Physician: Not [...] 1makes pt itchy 2Hx of Guillain - [place] Immunizations Given and Recorded Vaccine Date Status Refusal Reason pneumococcal 23-valent vaccine 02/03/17 Given Not Given Vaccine Date Status Refusal Reason pneumococcal 23-valent vaccine 01/25/17 Not Given Patient Refuses Medications atorvastatin 80 mg oral tablet 1 tablet = 80 mg, By Mouth, Daily, # 30 tablet, 0 Refills, Maintenance, Tablet, Route to Pharmacy Electronically, [id number], [facility] 3 Start Date: 04/02/18 [...] Moderate, and SBP greater than 100, Routine, 05/01/22 16:09:00 EDT, Stop date Limited # of times Start Date: 05/01/22 Stop Date: 05/01/22 Status: Completed MorPHINE Inj 4 mg, Injection, IV Push Slowly, Every 5 minutes for 3 doses/times, PRN for Pain , Moderate, and SBP greater than 100, Routine, 05/01/22 22:18:00 EDT, Stop date Limited # of times Start Date: 05/01/22 Status: Ordered ondansetron 4 mg oral tablet, disintegrating 1 tablet = 4 mg, By Mouth, Every 8 hours, PRN as needed for nausea/vomiting, # 10 tablet, 0 Refills, Maintenance, 10/15/21 21:12:00 EST, DIS Tablet, [facility]/pharmacy #[id number], Partial fill upon patient request if the [...] Active GERD (gastroesophageal reflu x disease)(Confirmed) Active 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 Hematoma of leg(Confirmed) Active HIV disease(Confirmed) 2002 Active HLD (hyperlipidemia)(Confirmed) Active HTN (hypertension)(Confirmed) Active Hypothyroidism(Confirmed) Active Skin infection(Confirmed) Active PVD (peripheral vascular disease)(Confirmed) Active 1sequelae, left sided weakness Vital Signs Most recent to oldest [Reference Range]: 1 2 3 Oxygen Saturation [94-100 %] 100 % (05/01/22 11:21 PM) 95 % (05/01/22 7:51 PM) 99 % (05/01/22 6:27 PM) Pulse Rate [55-90 bpm] 86 bpm (05/01/22 11:21 PM) 59 bpm (05/01/22 7:51 PM) 80 bpm (05/01/22 6:27 PM) Blood Pressure [90-138/55-84 mm Hg] 117/80mm Hg (05/01/22 11:21 PM) 109/72mm Hg (05/01/22 7:51 PM) 105/73mm Hg (05/01/22 6:27 PM) Respiratory Rate [16-30 br/min] 18 br/min (05/01/22 10:22 PM) 18 br/min (05/01/22 7:51 PM) 16 br/min (05/01/22 7:07 PM) Temperature [96.8-100.4 DegF] 98.3 DegF (05/01/22 6:27 PM) 98.9 DegF (05/01/22 1:31 PM) 98.7 DegF (05/01/22 12:35 PM) Mode of Delivery (Oxygen) Room air (05/01/22 11:21 PM) Room air (05/01/22 7:51 PM) Room air (05/01/22 6:27 PM) Blood pressure sites Arm, right (05/01/22 11:21 PM) Arm, right (05/01/22 7:51 PM) Arm, right (05/01/22 6:27 PM) Temperature Route Oral (05/01/22 6:27 PM) Oral (05/01/22 1:31 PM) Oral (05/01/22 12:35 PM) Social History Social History Type Response Smoking Status Never (less than 100 in lifetime) entered on: 10/25/21 Sex Care Team Personnel Name: Thomas Bright Address: [address] [place] [address]
--- OUTSIDE RECORDS SUMMARY | 2023-02-21 14:52 | XMS_ITS | Continuity of Care Document ---
Author Name Unknown Organization [facility] Address [address] [place] [address]- Care Team Providers Care Econometrics Professor Name Role Phone Thomas Bright Primary Care Physician Encounter [facility] Date(s): 04/13/22 - 04/14/[address] [address]- Discharge Disposition: A-D/C Home Attending Physician: Shaina Reddy MD Admitting Physician: Shaina Reddy MD Referring Physician: Not on Staff, Referring MD Allergies, Adverse Reactions, Alerts Substance Reaction Severity Status Lamictal Hives, itch Active Tegretol Hallucinations, aggression A ctive Tylenol itching Active Lobster Persistent Severe Active Percocet 7.5/325 1 C/O: itching Active influenza virus vaccine, inactivated 2 Active traMADol Active oxyCODONE Persistent Mild Active 1makes pt itchy 2Hx of Guillain - [place] Immunizations Given and Recorded Vaccine Date Status Refusal Reason pneumococcal 23-valent vaccine 02/03/17 Given Not Given Vaccine Date Status Refusal Reason pneumococcal 23-valent vaccine 01/25/17 Not Given Patient Refuses Medications atorvastatin 80 mg oral tablet 1 tablet = 80 mg, By Mouth, Daily, # 30 tablet, 0 Refills, Maintenance, Tablet, Route to Pharmacy Electronically, [id number], [facility] 3 Start Date: 04/02/18 Stop [...] Moderate, and SBP greater than 100, Routine, 04/13/22 17:46:00 EDT, Stop date Limited # of times Start Date: 04/13/22 Stop Date: 04/13/22 Status: Completed ondansetron 4 mg oral tablet, disintegrating 1 tablet = 4 mg, By Mouth, Every 8 hours, PRN as needed for nausea/vomiting, # 10 tablet, 0 Refills, Maintenance, 10/15/21 21:12:00 EST, DIS Tablet, [facility]/pharmacy #[id number], Partial fill upon patient request if the [...] Active GERD (gastroesophageal reflu x disease)(Confirmed) 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 Hematoma of leg(Confirmed) Active HIV disease(Confirmed) 2002 Active HLD (hyperlipidemia)(Confirmed) Active HTN (hypertension)(Confirmed) Active Hypothyroidism(Confirmed) Active Skin infection(Confirmed) Active PVD (peripheral vascular disease)(Confirmed) Active 1sequelae, left sided weakness Results Radiology Reports * Exam Date Time Procedure Performing Provider Status 04/13/22 4:34 PM Chest 2 Views Frontal and Lat Sagrario Blackburn; Auth (Verified) Notes: (Chest 2 Views Frontal and Lat) Reason For Exam: Chest Pain;Other: RESULT: Chest 2 Views Frontal and Lat Chest 2 Views Frontal and Lat Hx of Present Illness: Patient with history of AAA repair 6 years ago presents with sudden onset mid abd pain that extends into chest and down left leg. 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 CT angiogram of the chest abdomenand pelvis dated 04/10/2022. FINDINGS: LINES AND TUBES: None. LUNGS AND PLEURA: Clear lungs. Normal pulmonary vascularity. No pleural effusion. No pneumothorax. HEART, MEDIASTINUM AND [place]: Heart is normal in size. Normal upper mediastinal and hilar contour. BONES AND SOFT TISSUES: No acute abnormality. IMPRESSION: No active cardiopulmonary disease is seen. No interval change is noted. WSN: [id number] Ordering Physician: Anthony Herrera Dictated By: Francis Rosado MD, V Dictated Date/Time: 04/13/22 4:45 pm Reviewed By: Francis Rosado MD, V Signed By: Francis Rosado MD, V Signed Date/Time: 04/13/22 4:45 pm Transcribed By: LOGAN Transcribed Date/Time: 04/13/22 4:44 pm Vital Signs Most recent to oldest [Reference Range]: 1 2 3 Oxygen Saturation [94-100 %] 97 % (04/14/22 12:12 AM) 98 % (04/13/22 9:51 PM) 100 % (04/13/22 6:59 PM) Pulse Rate [55-90 bpm] 64 bpm (04/14/22 12:12 AM) 63 bpm (04/13/22 9:51 PM) 83 bpm (04/13/22 6:59 PM) Blood Pressure [90-138/55-84 mm Hg] 124/83mm Hg (04/14/22 12:12 AM) 131/83mm Hg (04/13/22 9:51 PM) 97/56mm Hg (04/13/22 6:59 PM) Respiratory Rate [16-30 br/min] 18 br/min (04/14/22 12:12 AM) 16 br/min (04/13/22 11:04 PM) 16 br/min (04/13/22 8:23 PM) Temperature [96.8-100.4 DegF] 98.1 DegF (04/13/22 6:59 PM) 98.2 DegF (04/13/22 4:38 PM) 98.3 DegF (04/13/22 2:52 PM) Mode of Delivery (Oxygen) Room air (04/14/22 12:12 AM) Room air (04/13/22 9:51 PM) Room air (04/13/22 6:59 PM) Blood pressure sites Arm, right (04/13/22 6:59 PM) Arm, left (04/13/22 4:38 PM) Arm, left (04/13/22 2:52 PM) Temperature Route Oral (04/13/22 6:59 PM) Oral (04/13/22 4:38 PM) Oral (04/13/22 2:52 PM) Social History Social History Type Response Smoking Status Never (less than 100 in lifetime) entered on: 10/25/21 Sex
--- OUTSIDE RECORDS SUMMARY | 2023-02-21 14:52 | XMS_ITS | Continuity of Care Document ---
Author Name Unknown Organization [facility] Address [address] [place] [id number]- Care Team Providers Care Community Health Nurse Supervisor Name Role Phone Thomas Bright Primary Care Physician Encounter [facility] [place] [place] Date(s): 02/02/22 - 02/02/[address] [address]- Encounter Diagnosis Headache(Final) - 02/02/22 Leg pain(Final) - 02/02/22 Discharge Disposition: A-D/C Home Attending Physician: Rina Perez MD Admitting Physician: Rina Perez MD Referring Physician: Not on Staff, [...] Refills, Maintenance, Tablet, Route to Pharmacy Electronically, [id number], [facility] 3 Start Date: 04/02/18 Stop [...] drug. Start Date: 10/12/20 Status: Ordered MorPHINE CR Tablet 15 mg, CR Tablet, By Mouth, Once, STAT, 02/02/22 21:11:00 EDT, Stop date 02/02/22 21:11:00 EDT Notes: Do Not Crush. Start Date: 02/02/22 Stop Date: 02/02/22 Status: Completed MorPHINE Inj 4 mg, Injection, IV Push Slowly, Every 5 minutes for 3 doses/times, PRN for Pain , Moderate, and SBP greater than 100, Routine, 02/02/22 16:37:00 EDT, Stop date Limited # of times Start Date: 02/02/22 Stop Date: 02/02/22 Status: Completed ondansetron 4 mg oral tablet, disintegrating 1 tablet = 4 mg, By Mouth, Every 8 hours, PRN as needed for nausea/vomiting, # 10 tablet, 0 Refills, Maintenance, 10/15/21 21:12:00 EST, DIS Tablet, [id number], Partial fill upon patient request if the [...] Exam Date Time Procedure Performing Provider Status 02/02/22 11:51 AM Chest 2 Views Frontal and Lat Bein , D rafa; Auth (Verified) Notes: (Chest 2 Views Frontal and Lat) Reason For Exam: Chest Pain;Other: RESULT: Chest 2 Views Frontal and Lat Chest 2 Views Frontal and Lat Hx of Present Illness: Chest pain. COMPARISON: 11/03/2021 FINDINGS: LINES AND TUBES: None. LUNGS AND PLEURA: Clear lungs. Normal pulmonary vascularity. No pleural effusion. No pneumothorax. HEART, MEDIASTINUM AND [place]: Heart is normal in size. Normal upper mediastinal and hilar contour. BONES AND SOFT TISSUES: No acute abnormality. Partially image endovascular stent graft in the abdomen. Chronic mild compression deformity in the midthoracic spine. IMPRESSION: No acute abnormality. WSN: [id number] Ordering Physician: Caprice Sanches Dictated By: Larry Barragan MD Dictated Date/Time: 02/02/22 11:53 a Reviewed By: Larry Barragan MD Signed By: Larry Barragan MD Signed Date/Time: 02/02/22 11:53 am Transcribed By: LOGAN Transcribed Date/Time: 02/02/22 11:52 am Vital Signs Most recent to oldest [Reference Range]: 1 2 3 Oxygen Saturation [94-100 %] 99 % (02/02/22 7:09 PM) 98 % (02/02/22 5:00 PM) 95 % (02/02/22 3:57 PM) Pulse Rate [55-90 bpm] 92 bpm *H* (02/02/22 7:09 PM) 72 bpm (02/02/22 5:00 PM) 102 bpm *H* (02/02/22 3:57 PM) Blood Pressure [90-138/55-84 mm Hg] 114/77mm Hg (02/02/22 7:09 PM) 117/78mm Hg (02/02/22 5:00 PM) 128/84mm Hg (02/02/22 3:57 PM) Respiratory Rate [16-30 br/min] 18 br/min (02/02/22 10:12 PM) 20 br/min (02/02/22 9:45 PM) 20 br/min (02/02/22 7:47 PM) Temperature [96.8-100.4 DegF] 98.8 DegF (02/02/22 7:09 PM) 98.0 DegF (02/02/22 3:57 PM) 98.1 DegF (02/02/22 1:16 PM) Mode of Delivery (Oxygen) Room air (02/02/22 7:09 PM) Room air (02/02/22 5:00 PM) Room air (02/02/22 3:57 PM) Blood pressure sites Arm, right (02/02/22 7:09 PM) Arm, right (02/02/22 5:00 PM) Arm, right (02/02/22 3:57 PM) Temperature Route Oral (02/02/22 7:09 PM) Oral (02/02/22 3:57 PM) Oral (02/02/22 1:16 PM) Social History Social History Type Response Smoking Status Never (less than 100 in lifetime) entered on: 10/25/21 Sex
--- OUTSIDE RECORDS SUMMARY | 2023-02-21 14:52 | XMS_ITS | Continuity of Care Document ---
Author Name Unknown Organization [facility] Address [address] [place] [id number]- Care Team Providers Care Trapeze Artist Name Role Phone Thomas Bright Primary Care Physician [phone] [place] [facility] [place] 09/03/20 - 10/03/20 [facility] [address] [place], [place] [address] Attending Physician: Román Adams Admitting Physician: AdmRomán colón Referring Physician: Admtr, Román Allergies, Adverse Reactions, Alerts Substance Reaction Severity Status Lamictal Hives, itch Active Tegretol Hallucinations, aggression A ctive Tylenol itching Active Percocet 7.5/325 1 C/O: itching Active influenza virus vaccine, inactivated 2 Active traMADol Active oxyCODONE Persistent Mild Active Lobster Persistent Severe Active 1makes pt itchy 2Hx of Guillain - [place] Immunizations Given and Recorded Vaccine Date Status Refusal Reason pneumococcal 23-valent vaccine 02/03/17 Given Not Given Vaccine Date Status Refusal Reason pneumococcal 23-valent vaccine 01/25/17 Not Given Patient Refuses Medications aspirin 81 mg oral delayed release tablet See Instructions, [facility] [place], # 30 tablet, 1 Refills, Maintenance, [id number], 175, cm, 02/26/20 14:11:00 EDT, Height, 87.5, kg, 02/26/20 14:11:00 EDT, Dry Weight Start Date: 04/12/20 Status: Ordered atorvastatin 80 mg oral tablet 1 tablet = 80 mg, By Mouth, Daily, # 30 tablet, 0 Refills, Maintenance, Tablet, Route to Pharmacy Electronically, [id number], [facility] 3 Start Date: 04/02/18 [...] 0 Refills, Maintenance, 06/21/20 19:42:00 EDT, Tablet, [facility]/pharmacy #[id number], 175, cm, 06/17/20 8:54:00 EDT, [...] ant GERD (gastroesophageal reflu x disease)(Confirmed) 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
--- OUTSIDE RECORDS SUMMARY | 2023-02-21 14:52 | XMS_ITS | Continuity of Care Document ---
Author Name Unknown Organization [facility] Address [address] [place] [id number]- Care Team Providers Care Boat Buffer Plastic Name Role Phone Thomas Bright Primary Care Physician [place] [facility] [place](s[place] 04/11/21 - 04/11/[address] [address]- Encounter Diagnosis Chest pain(Final) - 04/11/21 Discharge Disposition: A-D/C Home Attending Physician: Tia Jovel MD Admitting Physician: Tia Jovel MD Referring Physician: Not on Staff, Referring MD Allergies, Adverse Reactions, Alerts Substance Reaction Severity Status Lamictal Hives, itch Active Tegretol Hallucinations, aggression A ctive Tylenol itching Active Lobster Persistent Severe Active influenza virus vaccine, inactivated 1 Active oxyCODONE Persistent Mild Active Percocet 7.5/325 2 C/O: itching Active traMADol Active 1Hx of Guillain - [place] 2makes pt itchy Immunizations Given and Recorded Vaccine Date Status Refusal Reason pneumococcal 23-valent vaccine 02/03/17 Given Not Given Vaccine Date Status Refusal Reason pneumococcal 23-valent vaccine 01/25/17 Not Given Patient Refuses Medications aspirin 81 mg oral delayed release tablet See Instructions, ALY GOINSA [place]OS [place], # 30 tablet, 1 Refills, Maintenance, [id number], 175, cm, 02/26/20 14:11:00 EDT, Height, 87.5, kg, 02/26/20 14:11:00 EDT, Dry Weight Start Date: 04/12/20 Status: Ordered atorvastatin 80 mg oral tablet 1 tablet = 80 mg, By Mouth, Daily, # 30 tablet, 0 Refills, Maintenance, Tablet, Route to Pharmacy Electronically, [id number], [facility] Start Date: 04/02/18 Stop [...] 0 Refills, Maintenance, 10/22/20 8:48:00 EST, Gel, [facility]/pharmacy #[id number], Partial fill upon patient request if the prescription is for a schedule... Start Date: 10/22/20 Status: Ordered enoxaparin 80 mg/0.8 mL injectable solution 0.9 mL = 90 mg, Subcutaneous Injection, Every 12 hours, please stop when INR 2- 3, PCP/VNA will be closely monitoring, # 18 mL, 0 Refills, Maintenance, 10/29/20 9:12:00 EST, Injection, [facility]/pharmacy #[id number], Partial fill upon [...] 10/22/20 8:48:00 EST, Route to Pharmacy Electronically, [facility]/pharmacy #[id number], Partial fill upon [...] 0 Refills, Maintenance, 03/17/21 6:56:00 EDT, Film, [id number], Partial fill upon patient request if the prescription is for a schedule II opioid drug., 1 patch Top... Start Date: 03/17/21 Stop Date: 04/07/21 Status: Ordered MorPHINE Inj 2 mg, Injection, IV Push Slowly, Every 5 minutes for 3 doses/times, PRN for Pain , Moderate, and SBP greater than 100, Routine, 04/11/21 12:50:00 EDT, Stop date Limited # of times Start Date: 04/11/21 Status: Ordered pantoprazole 40 mg oral delayed [...] 0 Refills, Maintenance, 10/29/20 9:13:00 EST, Tablet, [facility]/pharmacy #[id number], Partial fill upon patient request if the prescription is for a schedule II opioid drug., 175, cm, 10/28/20 10:07:00 EST, Height, 8... 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 Hematoma of leg(Confirmed) Active HIV disease(Confirmed) 2002 Active Hypercholesterolemia(Confirmed) 2005 Active HLD (hyperlipidemia)(Confirmed) Active HTN (hypertension)(Confirmed) Active Hypothyroidism(Confirmed) Active Skin infection(Confirmed) Active PVD (peripheral vascular disease)(Confirmed) Active 1sequelae, left sided weakness Results Radiology Reports * Exam Date Time Procedure Performing Provider Status 04/11/21 11:44 AM Chest 2 Views Frontal and Lat Traci Brandon; Auth (Verified) Notes: (Chest 2 Views Frontal and Lat) Reason For Exam: Chest Pain;Other: RESULT: Chest 2 Views Frontal and Lat Chest 2 Views Frontal and Lat Hx of Present Illness: Chest pain. COMPARISON: 03/17/2021 FINDINGS: LINES AND TUBES: None. LUNGS AND PLEURA: Clear lungs. Normal pulmonary vascularity. No pleural effusion. No pneumothorax. HEART, MEDIASTINUM AND [place]: Heart is normal in size. Normal upper mediastinal and hilar contour. BONES AND SOFT TISSUES: No acute abnormality. Partially matched endovascular stent graft within the aorta. Status post cholecystectomy. IMPRESSION: No acute abnormality. WSN: [id number] Ordering Physician: Anthony Herrera Dictated By: Larry Barragan MD Dictated Date/Time: 04/11/21 12:21 p Reviewed By: Larry Barragan MD Signed By: Larry Barragan MD Signed Date/Time: 04/11/21 12:21 pm Transcribed By: LOGAN Transcribed Date/Time: 04/11/21 12:18 pm Vital Signs Most recent to oldest [Reference Range]: 1 2 3 Oxygen Saturation [94-100 %] 98 % (04/11/21 4:12 PM) 100 % (04/11/21 11:01 AM) Pulse Rate [55-90 bpm] 66 bpm (04/11/21 4:12 PM) 78 bpm (04/11/21 11:01 AM) Blood Pressure [90-138/55-84 mm Hg] 98/60mm Hg (04/11/21 4:12 PM) 115/67mm Hg (04/11/21 11:01 AM) Respiratory Rate [16-30 br/min] 16 br/min (04/11/21 4:12 PM) 18 br/min (04/11/21 2:29 PM) 19 br/min (04/11/21 1:14 PM) Temperature [96.8-100.4 DegF] 98.8 DegF (04/11/21 4:12 PM) 98.0 DegF (04/11/21 11:01 AM) Mode of Delivery (Oxygen) Room air (04/11/21 4:12 PM) Room air (04/11/21 11:01 AM) Blood pressure sites Arm, right (04/11/21 11:01 AM) Temperature Route Oral (04/11/21 4:12 PM) Oral (04/11/21 11:01 AM) Social History Social History Type Response Smoking Status Former smoker; Tobac co user in household: No; Type: Cigarettes; Other: quit in july 2016; Tobacco use times per day: half pack per day; Started at age: 11; entered on: 05/29/18 Sex
--- OUTSIDE RECORDS SUMMARY | 2023-02-21 14:52 | XMS_ITS | Continuity of Care Document ---
Author Name Unknown Organization [facility] Address [address] [place] [address]- Care Team Providers Care Motion Graphics Designer Name Role Phone Thomas Bright Primary Care Physician [place] [facility] [place] - 04/13/20 [facility] [address] [place] [address]- [facility] Attending Physician: Anselmo Mendeita MD Admitting Physician: Anselmo Mendieta MD Referring Physician: Thomas Bright Allergies, Adverse Reactions, Alerts Substance Reaction Severity Status Lamictal Hives, itch Active Tegretol Hallucinations, aggression A ctive Tylenol itching Active Lobster Persistent Severe Active Percocet 7.5/325 1 C/O: itching Active influenza virus vaccine, inactivated 2 Active traMADol Active oxyCODONE Persistent Mild Active 1makes pt itchy 2Hx of Guillain - [place] Immunizations Given and Recorded Vaccine Date Status Refusal Reason pneumococcal 23-valent vaccine 02/03/17 Given Not Given Vaccine Date Status Refusal Reason pneumococcal 23-valent vaccine 01/25/17 Not Given Patient Refuses Medications aspirin 81 mg oral delayed release tablet See Instructions, ALY GOINSA TODOS [place], # 30 tablet, 1 Refills, Maintenance, [id number], 175, cm, 02/26/20 14:11:00 EDT, Height, 87.5, kg, 02/26/20 14:11:00 EDT, Dry Weight Start Date: 04/12/20 Status: Ordered atorvastatin 80 mg oral tablet 1 tablet = 80 mg, By Mouth, Daily, # 30 tablet, 0 Refills, Maintenance, Tablet, Route to Pharmacy Electronically, [id number], [facility] 3 Start Date: 04/02/18 [...] 22:53:00 EDT, Route to Pharmacy Electronically, [facility]/pharmacy #[id number], 175, cm, 01/12/20 17:28:00 EDT, Height, [...] Refills,Maintenance, 10/14/19 23:05:00 EST, DIS Tablet, [facility]/pharmacy #[id number], 175, cm, 09/12/19 10:20:00 EST,Height, 86, [...] ant GERD (gastroesophageal reflu x disease)(Confirmed) Active 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
--- OUTSIDE RECORDS SUMMARY | 2023-02-21 14:52 | XMS_ITS | Continuity of Care Document ---
Author Name Unknown Organization [facility] Address [address] [place] [address]- Care Team Providers Care Security Intern Name Role Phone Thomas Bright Primary Care Physician [phone] Encounter [facility] [place] Date(s): 05/19/22 - 09/02/22 [facility] [address] [place] [address]- Discharge Disposition: A-D/C Home Attending Physician: Jack [...] 1makes pt itchy 2Hx of Guillain - [place] Immunizations Given and Recorded Vaccine Date Status Refusal Reason pneumococcal 23-valent vaccine 02/03/17 Given Not Given Vaccine Date Status Refusal Reason pneumococcal 23-valent vaccine 01/25/17 Not Given Patient Refuses Medications atorvastatin 80 mg oral tablet 1 tablet = 80 mg, By Mouth, Daily at bedtime, # 30 tablet, 0 Refills, Maintenance, Tablet, Route toPharmacy Electronically, [id number], [facility] Start Date: 04/02/18 Stop Date: 05/02/18 [...] 1 Refills, Maintenance, 05/20/22 14:26:00 EDT, Tablet, [facility]/pharmacy #[id number], Partialfill upon patient request if the [...] Active GERD (gastroesophageal reflux disease) Confirmed Active Guillain-[place] syndrome 1 Confirmed Active Hematoma of leg [...] Team Personnel Name: Joaquina Jerome RN Position: [facility] RN Member Role: Primary Care Nurse Name: Joselyn Sevilla RN Position: [facility] RN Member Role: Primary Care Nurse Name: Thomas Bright Position: [facility] Outreach Member Role: PCP Address: Address: [address] [place] [address]- Name: Karmen Mandujano RN Position: [facility] Rad RN Member Role: Primary Care Nurse Name: Margie Castanon RN Position: [facility] RN Member Role: Primary Care Nurse Name: Shahbaz Castaneda RN Position: [facility] RN Member Role: Primary Care Nurse Name: Justin Dailey MD Position: [facility] Infectious Disease MD Member Role: Lifetime Consulting Physician Address: Address: [address] [place] [address] [place] [address]- Name: Sophia Bell RN Position: [facility] ED RN W/OE and Tasks Member Role: Primary Care Nurse Name: Veronica Davila RN Position: [facility] RN Member Role: Primary Care Nurse Name: Melva Herndon RN Position: [facility] RN Member Role: Primary Care Nurse Name: Karena Penaloza RN Position: [facility] RN Member Role: Primary Care Nurse Name: Fang Adams RN Position: [facility] Scale And Skip Car Operator Member Role: Primary Care Nurse Name: Karri Jaramillo RN Position: [facility] RN Member Role: Primary Care Nurse Name: Consuelo Alvarenga RN Position: [facility] RN Member Role: Primary Care Nurse Name: Veronica Blanco RN Position: [facility] PCO RN Member Role: Primary Care Nurse Name: Ramsey Perez RN Position: [facility] RN Member Role: Primary Care Nurse Name: Lazaro Huffman RN Position: [facility] RN Member Role: Primary Care Nurse Name: Jacquelyn Juarez Position: [facility] RN Member Role: Primary Care Nurse Name: Jacquelyn Ramsey RN Position: [facility] RN Member Role: Primary Care Nurse Name: Jennifer Ghosh RN Position: [facility] RN Member Role: Primary Care Nurse Name: Qiana Mansfield RN Position: [facility] RN Member Role: Primary Care Nurse Name: Chuyita Ashley RN Position: [facility] RN Member Role: Primary Care Nurse Name: Elle Blackwood RN Position: [facility] Scale And Skip Car Operator Member Role: Primary Care Nurse Name: Yamilex Arteaga RN Position: [facility] RN Member Role: Primary Care Nurse Name: Skip Harry RN Position: [facility] RN Member Role: Primary Care Nurse Name: Valentine Perrin RN Position: [facility] RN Member Role: Primary Care Nurse Name: Mark Howell RN Position: [facility] RN Member Role: Primary Care Nurse Name: Elaine Webb RN Position: [facility] RN Member Role: Primary Care Nurse Name: Stephanie Houser RN Position: [facility] RN Member Role: Primary Care Nurse Name: Amber Gu RN Position: [facility] RN Member Role: Primary Care Nurse Name: Reji Zimmerman Jr Position: [facility] ED RN W/OE and Tasks Member Role: Primary Care Nurse Name: Dang Padilla RN Position: [facility] RN Member Role: Primary Care Nurse Name: Scot Anderson RN Position: [facility] RN Member Role: Primary Care Nurse Name: Luz Marina Byrd RN Position: [facility] RN Member Role: Primary Care Nurse Name: Joelle Sandoval RN Position: [facility] RN Member Role: Primary Care Nurse Name: Gideon Diaz RN Position: [facility] RN Member Role: Primary Care Nurse Name: Diana Anderson RN Position: [facility] RN Member Role: Primary Care Nurse Name: Thomas Betancur RN Position: [facility] RN Member Role: Primary Care Nurse Name: Vee Mcnamara RN Position: [facility] Scale And Skip Car Operator Member Role: Primary Care Nurse Name: Nisreen Greenberg RN Position: [facility] Outreach Member Role: Primary Care Nurse Name: Lanny Bolton RN Position: [facility] RN Member Role: Primary Care Nurse Name: Anthony Carolina RN Position: [facility] RN Member Role: Primary Care Nurse Name: Ana Dupont RN Position: [facility] RN Member Role: Primary Care Nurse Name: Alyssia Durbin RN Position: [facility] RN Member Role: Primary Care Nurse Name: Afshan Galeano RN Position: [facility] RN Member Role: Primary Care Nurse Name: Reji Bright RN Position: [facility] RN Member Role: Primary Care Nurse Name: Estefanía Austin RN Position: [facility] RN Member Role: Primary Care Nurse Name: Sarah Carson RN Position: [facility] RN Member Role: Primary Care Nurse Name: Amira Hughes RN Position: [facility] RN Member Role: Primary Care Nurse Name: Rina Dunlap LPN Position: [facility] RN Member Role: Primary Care Nurse Name: Chiquis Callejas RN Position: [facility] Onco RN Member Role: Primary Care Nurse Name: Linda Rajput RN, I Position: [facility] RN Member Role: Primary Care Nurse Care Team Related Persons Name: SHAHBAZ MEADOWS Address: [address] [place] [address] Name: YOANDY TAYLOR Address: home [address] [place] [address]
--- OUTSIDE RECORDS SUMMARY | 2023-02-21 14:52 | XMS_ITS | Continuity of Care Document ---
Author Name Unknown Organization [facility] Address [address] [place] [id number]- Care Team Providers Care Clinical Auditor Name Role Phone Thomas Bright Primary Care Physician [place] [facility] [place](s): 11/18/19 - 04/02/[address] [address]- [facility] Attending Physician: Hua Simpson MD Admitting Physician: Hua Simpson MD Allergies, Adverse Reactions, Alerts Substance Reaction Severity Status Lamictal Hives, itch Active Tegretol Hallucinations, aggression A ctive oxyCODONE Persistent Mild Active Tylenol itching Active Lobster Persistent Severe Active Percocet 7.5/325 1 C/O: itching Active influenza virus vaccine, inactivated 2 Active traMADol Active 1makes pt itchy 2Hx of Guillain - [place] Immunizations Given and Recorded Vaccine Date Status Refusal Reason pneumococcal 23-valent vaccine 02/03/17 Given Not Given Vaccine Date Status Refusal Reason pneumococcal 23-valent vaccine 01/25/17 Not Given Patient Refuses Medications aspirin 81 mg oral delayed release tablet 81 mg, 1, tablet, By Mouth, Daily, # 30 tablet, Refills 0, Tot. Refills 0, Maintenance, 03/18/20 16:15:00 EDT, Route to Pharmacy Electronically, [facility]/pharmacy #[id number], 175, cm, 02/26/20 14:11:00 EDT, Height, 87.5, kg, 02/26/20 14:11:00 EDT, Dry Weight Start Date: 03/18/20 Status: Ordered atorvastatin 80 mg oral tablet 1 tablet = 80 mg, By Mouth, Daily, # 30 tablet, 0 Refills, Maintenance, Tablet, Route to Pharmacy Electronically, [id number], [facility] Start Date: 04/02/18 Stop Date: 05/02/18 Status: Ordered famotidine 20 mg oral tablet 20 mg, 1, tablet, By Mouth, Daily, # 30 tablet, Refills 0, Tot. 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
--- OUTSIDE RECORDS SUMMARY | 2023-02-21 14:52 | XMS_ITS | Continuity of Care Document ---
Author Name Unknown Organization [facility] Address [address] [place] [id number] Care Team Providers Care Head Custodian Name Role Phone Thomas Bright Primary Care Physician Encounter [facility] Date(s): 10/16/22 - 10/16/[address] [address]- Encounter Diagnosis Chest pain(Final) - 10/16/22 Abdominal pain(Final) - 10/16/22 Leg pain, right(Final) - 10/16/22 Discharge Disposition: A-D/C Home Attending Physician: Tim [...] 1makes pt itchy 2Hx of Guillain - [place] Immunizations Given and Recorded Vaccine Date Status Refusal Reason pneumococcal 23-valent vaccine 02/03/17 Given Not Given Vaccine Date Status Refusal Reason pneumococcal 23-valent vaccine 01/25/17 Not Given Patient Refuses Medications atorvastatin 80 mg oral tablet 1 tablet = 80 mg, By Mouth, Daily at bedtime, # 30 tablet, 0 Refills, Maintenance, Tablet, Route toPharmacy Electronically, [id number], [facility] Start Date: 04/02/18 Stop Date: 05/02/18 Status: Ordered Dilaudid Inj 1 mg, Injection, IV Push Slowly, Once, STAT, 10/16/22 13:35:00 EST, Stop date 10/16/22 13:35:00 EST Start Date: 10/16/22 Stop Date: 10/16/22 Status: Completed famotidine 20 mg oral tablet [...] hours, PRN for Pain , Moderate, Routine, 10/16/22 18:02:00 EST Start Date: 10/16/22 Stop Date: 10/23/22 Status: Ordered ondansetron 4 mg oral tablet, [...] cm, 01/03/21 16:35:00 EDT, Height, 83, kg, 05/10/21 16:35:00 EDT, Dry Weight Start Date: 02/12/21 [...] Active GERD (gastroesophageal reflux disease) Confirmed Active 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 Hematoma of leg Confirmed Active HIV disease Confirmed 2002 Active HLD (hyperlipidemia) Confirmed Active HTN (hypertension) Confirmed Active Hypothyroidism Confirmed Active Skin infection Confirmed Active PVD (peripheral vascular disease) Confirmed Active 1sequelae, left sided weakness Results Radiology Reports * Exam Date Time Procedure Performing Provider Status 10/16/22 5:04 PM US Doppler Ext Lower Venous Right Nilda Will; Auth (Verified) Notes: (US Doppler Ext Lower Venous Right) Reason For Exam: Pain in limb;Other: RESULT: US Doppler Ext Lower Venous Right US Doppler Ext Lower Venous Right INDICATION: pt reports SOB x2-3 wks, abd. pain, rectal pain with rectal bleeding. pt has been askedseveral times if this is constant or intermittent, interp says he isn't answering. sts he also thinks he has a R DVT and feels dizzy.; Pain in limb; Clinical Question(s): Thrombus COMPARISON: Multiple priors, most recently 09/17/2022. IMAGING TECHNIQUE: Ultrasound of the veins from [...] femoral vein: Patent. No thrombosis. 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 IMPRESSION: No evidence of deep venous thrombosis. 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 WSN: [id number] Ordering Physician: Tia Jovel Dictated By: Jayy Goodman DO Dictated Date/Time: 10/16/22 5:09 pm Reviewed By: Dung Montgomery MD Signed By: Dung Montgomery MD Signed Date/Time: 10/16/22 5:14 pm Transcribed By: LOGAN Transcribed Date/Time: 10/16/22 5:07 pm * Exam Date Time Procedure Performing Provider Status 10/16/22 3:[address] Abd/Pelvis W/ IV Contrast Only Elaine Chávez; Auth (Verified) Notes: (CT Abd/Pelvis W/ IV Contrast Only) Reason For Exam: LLQ abdominal pain;Other: RESULT: CT Abd/Pelvis W/ IV Contrast Only EXAMINATION: CTA CHEST, CT ABDOMEN AND PELVIS WITH CONTRAST ONLY INDICATION: Shortness of breath, abdominal pain, rectal pain with rectal bleeding. TECHNIQUE: Spiral CTA of the chest was [...] modulation was used to optimize exposure parameters. COMPARISONS: Multiple CT tests and CT abdomen and pelvis with contrast, the most recent 10/09/2022. CTDIvol Body: DLP Body: 311.74 mGy*cm. CTDIvol Body: DLP Body: 1024.05 mGy*cm. ANGIOGRAPHIC FINDINGS: No pulmonary embolism to the subsegmental level. Normal caliber pulmonary arteries. No acute aortic abnormality seen on this study performed without cardiac gating. The patient is post abdominal aortic stent graft placement. NON-ANGIOGRAPHIC FINDINGS: Corrections Officer View Findings, Lines and Tubes: None. Trachea and Airways: Patent without evidence of tracheal or endobronchial lesion. Lungs and Pleura: Multiple scattered calcified granuloma. Mild atelectasis of the left lung base. No effusion or pneumothorax. Mediastinum and bronson: No mass or hematoma. No mediastinal or hilar lymphadenopathy. No esophageal abnormality. Heart: Heart is normal in size. No pericardial effusion. Chest Wall Soft Tissues: Normal. Diaphragm : Normal. Liver: Diffuse low-attenuation throughout the liver parenchyma consistent with hepatic steatosis. Gallbladder: Absent consistent with prior cholecystectomy. Bile ducts: No biliary ductal dilation. Spleen: Calcifications are seen in the spleen, possibly reflecting prior granulomatous disease. Small splenule. Pancreas: Fatty infiltration of the pancreas without focal pancreatic lesion. Adrenal glands: Normal. Kidneys and ureters: No hydronephrosis or stones. No significant change in cortical defect in the lower pole of the right kidney likely reflecting prior infarct or scar. Bilateral hypodensities, are too small to characterize. Bladder: The bladder is partially distended. Hyperdense focus in the region of the urethra, nonspecific, series 607, image 182, possibly from excreted contrast. Reproductive organs: Mild stranding surrounding the seminal vesicles and prostate, similar to prior.. Stomach, small bowel, and large bowel: Status post partial sigmoid colectomy. No evidence of bowel obstruction. The stomach appears unremarkable. Appendix: Postoperative changes, suggesting prior appendectomy.. Peritoneum and retroperitoneum: No ascites or pneumoperitoneum. No omental or mesenteric lesions. Lymph nodes: No enlarged lymph nodes. Abdominal and pelvic wall: Subcutaneous nodules with foci of subcutaneous gas in the anterior abdominal wall likely reflects injection sites. Bones: No acute abnormality. IMPRESSION: 1. No evidence of acute pulmonary embolism. 2. Hyperdense focus in the region of the urethra, nonspecific, possibly from excreted contrast. Recommend clinical correlation. 3. Mild stranding surrounding the seminal vesicles and prostate, similar to prior. 4. Chronic findings as described above. WSN: [id number] Ordering Physician: Vee Tomas Dictated By: Nicolette Brown MD Dictated Date/Time: 10/16/22 4:27 pm Reviewed By: Nicolette Brown MD Signed By: Nicolette Brown MD Signed Date/Time: 10/16/22 4:27 pm Transcribed By: LOGAN Transcribed Date/Time: 10/16/22 3:54 pm * Exam Date Time Procedure Performing Provider Status 10/16/22 3:[address] Angio Chest Elaine Chávez; Auth (Verified) Notes: (CT Angio Chest) Reason For Exam: PE suspected, Intermediate prob, positive D-dimer,;Other: RESULT: CT Angio Chest EXAMINATION: CTA CHEST, CT ABDOMEN AND PELVIS WITH CONTRAST ONLY INDICATION: Shortness of breath, abdominal pain, rectal pain with rectal bleeding. TECHNIQUE: Spiral CTA of the chest was [...] modulation was used to optimize exposure parameters. COMPARISONS: Multiple CT tests and CT abdomen and pelvis with contrast, the most recent 10/09/2022. CTDIvol Body: DLP Body: 311.74 mGy*cm. CTDIvol Body: DLP Body: 1024.05 mGy*cm. ANGIOGRAPHIC FINDINGS: No pulmonary embolism to the subsegmental level. Normal caliber pulmonary arteries. No acute aortic abnormality seen on this study performed without cardiac gating. The patient is post abdominal aortic stent graft placement. NON-ANGIOGRAPHIC FINDINGS: Corrections Officer View Findings, Lines and Tubes: None. Trachea and Airways: Patent without evidence of tracheal or endobronchial lesion. Lungs and Pleura: Multiple scattered calcified granuloma. Mild atelectasis of the left lung base. No effusion or pneumothorax. Mediastinum and bronson: No mass or hematoma. No mediastinal or hilar lymphadenopathy. No esophageal abnormality. Heart: Heart is normal in size. No pericardial effusion. Chest Wall Soft Tissues: Normal. Diaphragm : Normal. Liver: Diffuse low-attenuation throughout the liver parenchyma consistent with hepatic steatosis. Gallbladder: Absent consistent with prior cholecystectomy. Bile ducts: No biliary ductal dilation. Spleen: Calcifications are seen in the spleen, possibly reflecting prior granulomatous disease. Small splenule. Pancreas: Fatty infiltration of the pancreas without focal pancreatic lesion. Adrenal glands: Normal. Kidneys and ureters: No hydronephrosis or stones. No significant change in cortical defect in the lower pole of the right kidney likely reflecting prior infarct or scar. Bilateral hypodensities, are too small to characterize. Bladder: The bladder is partially distended. Hyperdense focus in the region of the urethra, nonspecific, series 607, image 182, possibly from excreted contrast. Reproductive organs: Mild stranding surrounding the seminal vesicles and prostate, similar to prior.. Stomach, small bowel, and large bowel: Status post partial sigmoid colectomy. No evidence of bowel obstruction. The stomach appears unremarkable. Appendix: Postoperative changes, suggesting prior appendectomy.. Peritoneum and retroperitoneum: No ascites or pneumoperitoneum. No omental or mesenteric lesions. Lymph nodes: No enlarged lymph nodes. Abdominal and pelvic wall: Subcutaneous nodules with foci of subcutaneous gas in the anterior abdominal wall likely reflects injection sites. Bones: No acute abnormality. IMPRESSION: 1. No evidence of acute pulmonary embolism. 2. Hyperdense focus in the region of the urethra, nonspecific, possibly from excreted contrast. Recommend clinical correlation. 3. Mild stranding surrounding the seminal vesicles and prostate, similar to prior. 4. Chronic findings as described above. WSN: [id number] Ordering Physician: Vee Tomas Dictated By: Nicolette Brown MD Dictated Date/Time: 10/16/22 4:27 pm Reviewed By: Nicolette Brown MD Signed By: Nicolette Brown MD Signed Date/Time: 10/16/22 4:27 pm Transcribed By: LOGAN Transcribed Date/Time: 10/16/22 3:54 pm * Exam Date Time Procedure Performing Provider Status 10/16/22 12:20 PM Chest 2 Views Frontal and Lat Ana Acevedo; Emeli (Verified) Notes: (Chest 2 Views Frontal and Lat) Reason For Exam: Shortness of Breath RESULT: Chest 2 Views Frontal and Lat Examination: Chest performed on 10/16/2022. History: Shortness of breath. Findings: Frontal and lateral views of the chest are compared to a prior study dated 10/09/22. The cardiac and mediastinal silhouettes are within normal limits. The lungs are clear. The osseous and soft tissue structures are unremarkable. Impression: There is no acute cardiopulmonary disease. WSN: [id number] Ordering Physician: Karri Pryor Dictated By: Mallika Healy MD Dictated Date/Time: 10/16/22 12:22 p Reviewed By: Mallika Healy MD Signed By: Mallika Healy MD Signed Date/Time: 10/16/22 12:22 pm Transcribed By: LOGAN Transcribed Date/Time: 10/16/22 12:22 pm Vital Signs Most recent to oldest [Reference Range]: 1 2 3 Weight 85 kg (10/16/22 1:28 PM) 85 kg (10/16/22 12:34 PM) 85 kg (10/16/22 11:23 AM) Oxygen Saturation [94-100 %] 98 % (10/16/22 5:40 PM) 99 % (10/16/22 1:28 PM) 98 % (10/16/22 12:34 PM) Pulse Rate [55-90 bpm] 74 bpm (10/16/22 5:40 PM) 99 bpm *H* (10/16/22 1:28 PM) 92 bpm *H* (10/16/22 12:34 PM) Blood Pressure [90-138/55-84 mm Hg] 117/85mm Hg (10/16/22 5:40 PM) 131/90mm Hg (10/16/22 1:28 PM) 148/92mm Hg *H* (10/16/22 12:34 PM) Respiratory Rate [16-30 br/min] 16 br/min (10/16/22 5:49 PM) 16 br/min (10/16/22 5:40 PM) 16 br/min (10/16/22 3:52 PM) Temperature [96.8-100.4 DegF] 98.7 DegF (10/16/22 5:40 PM) 98.5 DegF (10/16/22 1:28 PM) 98.4 DegF (10/16/22 12:08 PM) Mode of Delivery (Oxygen) Room air (10/16/22 5:40 PM) Room air (10/16/22 1:28 PM) Room air (10/16/22 12:34 PM) Blood pressure sites Arm, right (10/16/22 5:40 PM) Arm, right (10/16/22 1:28 PM) Arm, left (10/16/22 12:08 PM) Temperature Route Oral (10/16/22 5:40 PM) Oral (10/16/22 1:28 PM) Oral (10/16/22 12:08 PM) Weight Obtained Via Patient/family state d (10/16/22 10:17 AM) Social History Social History Type Response Smoking Status Never (less than 100 in lifetime) entered on: 10/25/21 Sex EKG study * Event Display: ECG 12-Lead Authored Date: Please click on pdf link to open report * Event Display: ECG 12-Lead Authored Date: Ventricular Rate: 101 BPM Atrial Rate: 101 BPM P-R Interval: 142 ms QRS Duration: 84 ms Q-T Interval: 360 ms QTC Calculation(Bazett): 466 ms P [place]: 19 degrees R [place]: 2 degrees T [place]: 8 degrees Sinus tachycardia Otherwise normal ECG When compared with ECG of 16-OCT-2022 10:38, No significant change Confirmed by JENNIFER RASCON ([id number]) on 10/16/2022 4:30:44 PM Sewell: JENNIFER RASCON Note * Ana Bourne MD C: SIGN, PERFORM, SIGN, VERIFY Event Display: Patient Education Handout Authored Date: * [facility] , CANDACE S: TRANSCRIBE Mallika Healy MD M: VERIFY Event Display: Result: Authored Date: Examination: Chest performed on 10/16/2022. History: Shortness of breath. Findings: Frontal and lateral views of the chest are compared to a prior study dated 10/09/22. The cardiac and mediastinal silhouettes are within normal limits. The lungs are clear. The osseous and soft tissue structures are unremarkable. Impression: There is no acute cardiopulmonary disease. WSN: [id number] Ordering Physician: Karri Pryor Dictated By: Mallika Healy MD Dictated Date/Time: 10/16/22 12:22 p Reviewed By: Mallika Healy MD Signed By: Mallika Healy MD Signed Date/Time: 10/16/22 12:22 pm Transcribed By: LOGAN Transcribed Date/Time: 10/16/22 12:22 pm * [facility] , CANDACE S: TRANSCRIBE Jayy Goodman DO: SIGN Dung Montgomery MD: VERIFY Event Display: Result: Authored Date: [id number] US Doppler Ext Lower Venous Right INDICATION: pt reports SOB x2-3 wks, abd. pain, rectal pain with rectal bleeding. pt has been askedseveral times if this is constant or intermittent, interp says he isn't answering. sts he also thinks he has a R DVT and feels dizzy.; Pain in limb; Clinical Question(s): Thrombus COMPARISON: Multiple priors, most recently 09/17/2022. IMAGING TECHNIQUE: Ultrasound of the veins from [...] femoral vein: Patent. No thrombosis. 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 IMPRESSION: No evidence of deep venous thrombosis. 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 WSN: [id number] Ordering Physician: Tia Jovel Dictated By: Jayy Goodman DO Dictated Date/Time: 10/16/22 5:09 pm Reviewed By: Dung Montgomery MD Signed By: Dung Montgomery MD Signed Date/Time: 10/16/22 5:14 pm Transcribed By: LOGAN Transcribed Date/Time: 10/16/22 5:[address] Abdomen and Pelvis W contrast IV * [facility] , CIS S: TRANSCJADE Brown MD, Nicolette: VERIFY Event Display: Result: Authored Date: [id number] EXAMINATION: CTA CHEST, CT ABDOMEN AND PELVIS WITH CONTRAST ONLY INDICATION: Shortness of breath, abdominal pain, rectal pain with rectal bleeding. TECHNIQUE: Spiral CTA of the chest was [...] modulation was used to optimize exposure parameters. COMPARISONS: Multiple CT tests and CT abdomen and pelvis with contrast, the most recent 10/09/2022. CTDIvol Body: DLP Body: 311.74 mGy*cm. CTDIvol Body: DLP Body: 1024.05 mGy*cm. ANGIOGRAPHIC FINDINGS: No pulmonary embolism to the subsegmental level. Normal caliber pulmonary arteries. No acute aortic abnormality seen on this study performed without cardiac gating. The patient is post abdominal aortic stent graft placement. NON-ANGIOGRAPHIC FINDINGS: Corrections Officer View Findings, Lines and Tubes: None. Trachea and Airways: Patent without evidence of tracheal or endobronchial lesion. Lungs and Pleura: Multiple scattered calcified granuloma. Mild atelectasis of the left lung base. No effusion or pneumothorax. Mediastinum and bronson: No mass or hematoma. No mediastinal or hilar lymphadenopathy. No esophageal abnormality. Heart: Heart is normal in size. No pericardial effusion. Chest Wall Soft Tissues: Normal. Diaphragm : Normal. Liver: Diffuse low-attenuation throughout the liver parenchyma consistent with hepatic steatosis. Gallbladder: Absent consistent with prior cholecystectomy. Bile ducts: No biliary ductal dilation. Spleen: Calcifications are seen in the spleen, possibly reflecting prior granulomatous disease. Small splenule. Pancreas: Fatty infiltration of the pancreas without focal pancreatic lesion. Adrenal glands: Normal. Kidneys and ureters: No hydronephrosis or stones. No significant change in cortical defect in the lower pole of the right kidney likely reflecting prior infarct or scar. Bilateral hypodensities, are too small to characterize. Bladder: The bladder is partially distended. Hyperdense focus in the region of the urethra, nonspecific, series 607, image 182, possibly from excreted contrast. Reproductive organs: Mild stranding surrounding the seminal vesicles and prostate, similar to prior.. Stomach, small bowel, and large bowel: Status post partial sigmoid colectomy. No evidence of bowel obstruction. The stomach appears unremarkable. Appendix: Postoperative changes, suggesting prior appendectomy.. Peritoneum and retroperitoneum: No ascites or pneumoperitoneum. No omental or mesenteric lesions. Lymph nodes: No enlarged lymph nodes. Abdominal and pelvic wall: Subcutaneous nodules with foci of subcutaneous gas in the anterior abdominal wall likely reflects injection sites. Bones: No acute abnormality. IMPRESSION: 1. No evidence of acute pulmonary embolism. 2. Hyperdense focus in the region of the urethra, nonspecific, possibly from excreted contrast. Recommend clinical correlation. 3. Mild stranding surrounding the seminal vesicles and prostate, similar to prior. 4. Chronic findings as described above. WSN: [id number] Ordering Physician: Vee Tomas Dictated By: Nicolette Brown MD Dictated Date/Time: 10/16/22 4:27 pm Reviewed By: Nicolette Brown MD Signed By: Nicolette Brown MD Signed Date/Time: 10/16/22 4:27 pm Transcribed By: LOGAN Transcribed Date/Time: 10/16/22 3:54 pm CTA Chest vessels W contrast IV * [facility] , CIS S: TRANSCRIBE Nicolette Brown MD: VERIFY Event Display: Result: Authored Date: [id number] EXAMINATION: CTA CHEST, CT ABDOMEN AND PELVIS WITH CONTRAST ONLY INDICATION: Shortness of breath, abdominal pain, rectal pain with rectal bleeding. TECHNIQUE: Spiral CTA of the chest was [...] modulation was used to optimize exposure parameters. COMPARISONS: Multiple CT tests and CT abdomen and pelvis with contrast, the most recent 10/09/2022. CTDIvol Body: DLP Body: 311.74 mGy*cm. CTDIvol Body: DLP Body: 1024.05 mGy*cm. ANGIOGRAPHIC FINDINGS: No pulmonary embolism to the subsegmental level. Normal caliber pulmonary arteries. No acute aortic abnormality seen on this study performed without cardiac gating. The patient is post abdominal aortic stent graft placement. NON-ANGIOGRAPHIC FINDINGS: Corrections Officer View Findings, Lines and Tubes: None. Trachea and Airways: Patent without evidence of tracheal or endobronchial lesion. Lungs and Pleura: Multiple scattered calcified granuloma. Mild atelectasis of the left lung base. No effusion or pneumothorax. Mediastinum and bronson: No mass or hematoma. No mediastinal or hilar lymphadenopathy. No esophageal abnormality. Heart: Heart is normal in size. No pericardial effusion. Chest Wall Soft Tissues: Normal. Diaphragm : Normal. Liver: Diffuse low-attenuation throughout the liver parenchyma consistent with hepatic steatosis. Gallbladder: Absent consistent with prior cholecystectomy. Bile ducts: No biliary ductal dilation. Spleen: Calcifications are seen in the spleen, possibly reflecting prior granulomatous disease. Small splenule. Pancreas: Fatty infiltration of the pancreas without focal pancreatic lesion. Adrenal glands: Normal. Kidneys and ureters: No hydronephrosis or stones. No significant change in cortical defect in the lower pole of the right kidney likely reflecting prior infarct or scar. Bilateral hypodensities, are too small to characterize. Bladder: The bladder is partially distended. Hyperdense focus in the region of the urethra, nonspecific, series 607, image 182, possibly from excreted contrast. Reproductive organs: Mild stranding surrounding the seminal vesicles and prostate, similar to prior.. Stomach, small bowel, and large bowel: Status post partial sigmoid colectomy. No evidence of bowel obstruction. The stomach appears unremarkable. Appendix: Postoperative changes, suggesting prior appendectomy.. Peritoneum and retroperitoneum: No ascites or pneumoperitoneum. No omental or mesenteric lesions. Lymph nodes: No enlarged lymph nodes. Abdominal and pelvic wall: Subcutaneous nodules with foci of subcutaneous gas in the anterior abdominal wall likely reflects injection sites. Bones: No acute abnormality. IMPRESSION: 1. No evidence of acute pulmonary embolism. 2. Hyperdense focus in the region of the urethra, nonspecific, possibly from excreted contrast. Recommend clinical correlation. 3. Mild stranding surrounding the seminal vesicles and prostate, similar to prior. 4. Chronic findings as described above. WSN: [id number] Ordering Physician: Vee Tomas Dictated By: Nicolette Brown MD Dictated Date/Time: 10/16/22 4:27 pm Reviewed By: Nicolette Brown MD Signed By: Nicolette Brown MD Signed Date/Time: 10/16/22 4:27 pm Transcribed By: LOGAN Transcribed Date/Time: 10/16/22 3:54 pm Patient Care team information Care Team Personnel Name: Joaquina Jerome RN Position: [facility] RN Member Role: Primary Care Nurse Name: Joselyn Sevilla RN Position: [facility] RN Member Role: Primary Care Nurse Name: Thomas Bright Position: [facility] Outreach Member Role: PCP Address: Address: [address] [place] [address] Name: Karmen Mandujano RN Position: [facility] Rad RN Member Role: Primary Care Nurse Name: Margie Castanon RN Position: [facility] RN Member Role: Primary Care Nurse Name: Shahbaz Castaneda RN Position: [facility] RN Member Role: Primary Care Nurse Name: Justin Dailey MD Position: [facility] Infectious Disease MD Member Role: Lifetime Consulting Physician Address: Address: [address] [place] [address] Infectious Disease [address] Name: Sophia Bell RN Position: [facility] RN Member Role: Primary Care Nurse Name: Veronica Davila RN Position: [facility] RN Member Role: Primary Care Nurse Name: Melva Herndon RN Position: [facility] RN Member Role: Primary Care Nurse Name: Karena Penaloza RN Position: [facility] RN Member Role: Primary Care Nurse Name: Fang Adams RN Position: [facility] Hospital Accounting Analyst Member Role: Primary Care Nurse Name: Karri Jaramillo RN Position: [facility] RN Member Role: Primary Care Nurse Name: Consuelo Alvarenga RN Position: [facility] RN Member Role: Primary Care Nurse Name: Veronica Blanco RN Position: [facility] PCO RN Member Role: Primary Care Nurse Name: Ramsey Perez RN Position: [facility] RN Member Role: Primary Care Nurse Name: Lazaro Huffman RN Position: [facility] RN Member Role: Primary Care Nurse Name: Jacquelyn Juarez Position: [facility] RN Member Role: Primary Care Nurse Name: Jacquelyn Ramsey RN Position: [facility] RN Member Role: Primary Care Nurse Name: Jennifer Ghosh RN Position: [facility] RN Member Role: Primary Care Nurse Name: Qiana Mansfield RN Position: [facility] RN Member Role: Primary Care Nurse Name: Chuyita Ashley RN Position: [facility] RN Member Role: Primary Care Nurse Name: Elle Blackwood RN Position: [facility] Accounting Analyst Member Role: Primary Care Nurse Name: Yamilex Arteaga RN Position: [facility] [facility] RN Member Role: Primary Care Nurse Name: Skip Harry RN Position: [facility] RN Member Role: Primary Care Nurse Name: Valentine Perrin RN Position: [facility] RN Member Role: Primary Care Nurse Name: Mark Howell RN Position: [facility] RN Member Role: Primary Care Nurse Name: Elaine Webb RN Position: [facility] RN Member Role: Primary Care Nurse Name: Stephanie Houser RN Position: [facility] RN Member Role: Primary Care Nurse Name: Amber Gu RN Position: [facility] RN Member Role: Primary Care Nurse Name: Reji Zimmerman Jr Position: [facility] ED RN W/OE and Tasks Member Role: Primary Care Nurse Name: Dang Padilla RN Position: [facility] RN Member Role: Primary Care Nurse Name: Scot Anderson RN Position: [facility] RN Member Role: Primary Care Nurse Name: Luz Marina Byrd RN Position: [facility] RN Member Role: Primary Care Nurse Name: Joelle Sandoval RN Position: [facility] RN Member Role: Primary Care Nurse Name: Gideon Diaz RN Position: [facility] RN Member Role: Primary Care Nurse Name: Diana Anderson RN Position: [facility] RN Member Role: Primary Care Nurse Name: Thomas Betancur RN Position: [facility] RN Member Role: Primary Care Nurse Name: Vee Mcnamara RN Position: [facility] Accounting Analyst Member Role: Primary Care Nurse Name: Nisreen Greenberg RN Position: [facility] Outreach Member Role: Primary Care Nurse Name: Lanny Bolton RN Position: [facility] RN Member Role: Primary Care Nurse Name: Anthony Carolina RN Position: [facility] RN Member Role: Primary Care Nurse Name: Ana Dupont RN Position: [facility] RN Member Role: Primary Care Nurse Name: Alyssia Durbin RN Position: [facility] RN Member Role: Primary Care Nurse Name: Afshan Galeano RN Position: [facility] SN RN Member Role: Primary Care Nurse Name: Reji Bright RN Position: [facility] RN Member Role: Primary Care Nurse Name: Estefanía Austin RN Position: [facility] RN Member Role: Primary Care Nurse Name: Sarah Carson RN Position: [facility] RN Member Role: Primary Care Nurse Name: Amira Hughes RN Position: [facility] RN Member Role: Primary Care Nurse Name: Rina Dunlap LPN Position: [facility] RN Member Role: Primary Care Nurse Name: Chiquis Callejas RN Position: [facility] Onco RN Member Role: Primary Care Nurse Name: Linda Rajput RN, I Position: [facility] RN Member Role: Primary Care Nurse Name: Tim Duron MD Position: [facility] ED Medicine MD Member Role: Admitting Physician Address: Address: [address] [place] [address] Name: Su Gar Position: [facility] ED RN W/OE and Tasks Member Role: Patient Care Provider Name: Ana Bourne MD Position: [facility] Resident Member Role: ED Resident Address: Address: [address] [place] [address]- Care Team Related Persons Name: SHAHBAZ MEADOWS Address: [address] [place] [address] Name: YOANDY TAYLOR Address: home [address] [address]
--- OUTSIDE RECORDS SUMMARY | 2023-02-21 14:52 | XMS_ITS | Continuity of Care Document ---
Author Name Unknown Organization [facility] Address [address] [place] [address]- Care Team Providers Care Java Lead Architect Name Role Phone Thomas Bright Primary Care Physician Encounter [facility] Date(s): 05/14/22 - 05/15/[address] [address]- Discharge Disposition: A-D/C Home Attending Physician: Barrett [...] 1makes pt itchy 2Hx of Guillain - [place] Immunizations Given and Recorded Vaccine Date Status Refusal Reason pneumococcal 23-valent vaccine 02/03/17 Given Not Given Vaccine Date Status Refusal Reason pneumococcal 23-valent vaccine 01/25/17 Not Given Patient Refuses Medications atorvastatin 80 mg oral tablet 1 tablet = 80 mg, By Mouth, Daily at bedtime, # 30 tablet, 0 Refills, Maintenance, Tablet, Route toPharmacy Electronically, [id number], [facility] Start Date: 04/02/18 [...] Acute 05/18/22 11:08:00 EDT, 05/11/22 11:08:00 EDT, [facility]/pharmacy #[id number], Partial fill upon patient request if the... Start Date: 05/11/22 Stop Date: 05/18/22 Status: Ordered morphine 10 mg/5 mL oral solution 5 mL = 10 mg, By Mouth, Every 4 hours, PRN as needed for pain, for 3 days, # 60 mL, 0 Refills, Acute 05/18/22 6:30:00 EDT, 05/15/22 6:30:00 EDT, Solution, [facility]/pharmacy #[id number], Partial fill upon patient request if the prescription is for a schedule II o... Start Date: 05/15/22 Stop Date: 05/18/22 Status: Ordered MorPHINE CR Tablet 15 mg, CR Tablet, By Mouth, Once, STAT, 05/15/22 10:53:00 EDT, Stop date 05/15/22 10:53:00 EDT Notes: Do Not Crush. Start Date: 05/15/22 Stop Date: 05/15/22 Status: Completed ondansetron 4 mg oral tablet, disintegrating 1 tablet = 4 mg, By Mouth, Every 8 hours, PRN as needed for nausea/vomiting, # 10 tablet, 0 Refills, Maintenance, 10/15/21 21:12:00 EST, DIS Tablet, [facility]/pharmacy #[id number], Partial fill upon patient request if the [...] 0 Refills, Maintenance, 05/11/22 11:10:00 EDT, Tablet, [facility]/pharmacy #[id number], Partial fill upon patient request if the prescription is for a schedule II opioid drug., 175, cm, 05/11/22 8:03:00 EDT, Height, 86... 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 Hematoma of leg(Confirmed) Active HIV disease(Confirmed) 2002 Active HLD (hyperlipidemia)(Confirmed) Active HTN (hypertension)(Confirmed) Active Hypothyroidism(Confirmed) Active Skin infection(Confirmed) Active PVD (peripheral vascular disease)(Confirmed) Active 1sequelae, left sided weakness Results Radiology Reports * Exam Date Time Procedure Performing Provider Status 05/15/22 1:19 AM Chest 2 Views Frontal and Lat Viktoria Ceron; Emeli (Verified) Notes: (Chest 2 Views Frontal and Lat) Reason For Exam: Shortness of Breath, Fever;Other: RESULT: Chest 2 Views Frontal and Lat Chest 2 Views Frontal and Lat Hx of Present Illness: bilateral leg pain; Reason: Other:; Shortness of Breath, Fever; Clinical Question(s): Pneumonia COMPARISON: CT angiogram 05/09/2022 reviewed. FINDINGS: LINES AND TUBES: None. LUNGS AND PLEURA: Clear lungs. Normal pulmonary vascularity. No pleural effusion. No pneumothorax. HEART, MEDIASTINUM AND [place]: Heart is normal in size. Normal upper mediastinal and hilar contour. BONES AND SOFT TISSUES: No acute abnormality. Moderate wedge deformity T6 vertebral body and several healed posterolateral left rib fractures again noted. Cholecystectomy. Abdominal aortic stent graft. IMPRESSION: No acute abnormality. WSN: [id number] Ordering Physician: Markell Covington Dictated By: Fletcher Machado MD Dictated Date/Time: 05/15/22 8:08 am Reviewed By: Fletcher Machado MD Signed By: Fletcher Machado MD Signed Date/Time: 05/15/22 8:08 am Transcribed By: LOGAN Transcribed Date/Time: 05/15/22 8:05 am Vital Signs Most recent to oldest [Reference Range]: 1 2 3 Oxygen Saturation [94-100 %] 98 % (05/15/22 12:10 PM) 96 % (05/15/22 10:28 AM) 99 % (05/15/22 5:56 AM) Pulse Rate [55-90 bpm] 77 bpm (05/15/22 12:10 PM) 83 bpm (05/15/22 10:28 AM) 81 bpm (05/15/22 5:56 AM) Blood Pressure [90-138/55-84 mm Hg] 96/53mm Hg (05/15/22 12:10 PM) 113/49mm Hg (05/15/22 10:28 AM) 100/65mm Hg (05/15/22 5:56 AM) Respiratory Rate [16-30 br/min] 18 br/min (05/15/22 12:10 PM) 18 br/min (05/15/22 10:57 AM) 20 br/min (05/15/22 10:28 AM) Temperature [96.8-100.4 DegF] 98.3 DegF (05/15/22 12:10 PM) 98.4 DegF (05/15/22 5:56 AM) 98.3 DegF (05/15/22 2:54 AM) Liters per Minute 2 L/min (05/14/22 12:45 PM) Mode of Delivery (Oxygen) Room air (05/15/22 12:10 PM) Room air (05/15/22 10:28 AM) Room air (05/15/22 5:56 AM) Blood pressure sites Arm, right (05/15/22 12:10 PM) Arm, right (05/15/22 10:28 AM) Arm, right (05/15/22 5:56 AM) Temperature Route Oral (05/15/22 12:10 PM) Oral (05/15/22 5:56 AM) Oral (05/15/22 2:54 AM) Social History Social History Type Response Smoking Status Never (less than 100 in lifetime) entered on: 10/25/21 Sex Note * [employer] , CIS S: TRANSCRIBE Fletcher Machado MD: VERIFY Event Display: Result: Authored Date: [id number] Chest 2 Views Frontal and Lat Hx of Present Illness: bilateral leg pain; Reason: Other:; Shortness of Breath, Fever; Clinical Question(s): Pneumonia COMPARISON: CT angiogram 05/09/2022 reviewed. FINDINGS: LINES AND TUBES: None. LUNGS AND PLEURA: Clear lungs. Normal pulmonary vascularity. No pleural effusion. No pneumothorax. HEART, MEDIASTINUM AND [place]: Heart is normal in size. Normal upper mediastinal and hilar contour. BONES AND SOFT TISSUES: No acute abnormality. Moderate wedge deformity T6 vertebral body and several healed posterolateral left rib fractures again noted. Cholecystectomy. Abdominal aortic stent graft. IMPRESSION: No acute abnormality. WSN: [id number] Ordering Physician: Markell Covington Dictated By: Fletcher Machado MD Dictated Date/Time: 05/15/22 8:08 am Reviewed By: Fletcher Machado MD Signed By: Fletcher Machado MD Signed Date/Time: 05/15/22 8:08 am Transcribed By: LOGAN Transcribed Date/Time: 05/15/22 8:05 am Care Team Personnel Name: Thomas Bright Address: [address] [place] [address]
--- OUTSIDE RECORDS SUMMARY | 2023-02-21 14:52 | XMS_ITS | Continuity of Care Document ---
Author Name Unknown Organization [facility] ter Address [address] [place] [address]- Care Team Providers Care Loan Servicing Officer Name Role Phone Thomas Bright Primary Care Physician [phone] [place] [facility] [place] 09/08/19 - 09/08/[address] [address]- [facility] Encounter Diagnosis Altered mental status(Final) - 09/08/19 Discharge Disposition: A-D/C Home Attending Physician: Tia [...] 1makes pt itchy 2Hx of Guillain - [place] Immunizations Given and Recorded Vaccine Date Status Refusal Reason pneumococcal 23-valent vaccine 02/03/17 Given Not Given Vaccine Date Status Refusal Reason pneumococcal 23-valent vaccine 01/25/17 Not Given Patient Refuses Medications atorvastatin 80 mg oral tablet 1 tablet = 80 mg, By Mouth, Daily, # 30 tablet, 0 Refills, Maintenance, Tablet, Route to Pharmacy Electronically, [id number], [facility] Start Date: 04/02/18 Stop Date: 05/02/18 Status: Ordered Carafate 1 gm oral tablet 1 Gm, 1, tablet, By Mouth, 4 times a day, # 120 tablet, Refills 0, Tot. 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 Hematoma of leg(Confirmed) Active HIV disease(Confirmed) 2002 Active Hypercholesterolemia(Confirmed) 2006 Active HLD (hyperlipidemia)(Confirmed) Active HTN (hypertension)(Confirmed) Active Hypothyroidism(Confirmed) Active Skin infection(Confirmed) Active PVD (peripheral vascular disease)(Confirmed) Active 1sequelae, left sided weakness Vital Signs Most recent to oldest [Reference Range]: 1 2 3 Oxygen Saturation [94-100 %] 98 % (09/08/19 5:11 PM) 100 % (09/08/19 3:25 PM) 100 % (09/08/19 2:09 PM) Pulse Rate [55-90 bpm] 85 bpm (09/08/19 5:11 PM) 93 bpm *H* (09/08/19 3:25 PM) 87 bpm (09/08/19 2:09 PM) Blood Pressure [90-138/55-84 mm Hg] 102/60mm Hg (09/08/19 5:11 PM) 100/64mm Hg (09/08/19 3:25 PM) 141/67mm Hg *H* (09/08/19 2:09 PM) Respiratory Rate [16-30 br/min] 16 br/min (09/08/19 5:11 PM) 16 br/min (09/08/19 5:08 PM) 18 br/min (09/08/19 3:25 PM) Temperature [96.8-100.4 DegF] 97.2 DegF (09/08/19 2:09 PM) Mode of Delivery (Oxygen) Room air (09/08/19 5:11 PM) Room air (09/08/19 3:25 PM) Room air (09/08/19 2:09 PM) Blood pressure sites Arm, right (09/08/19 5:11 PM) Arm, right (09/08/19 3:25 PM) Arm, right (09/08/19 2:09 PM) Temperature Route Oral (09/08/19 2:09 PM) Social History Social History Type Response Smoking Status Former smoker; Tobac co user in household: No; Type: Cigarettes; Other: quit in july 2016; Tobacco use times per day: half pack per day; Started at age: 11; entered on: 05/29/18 Sex
--- OUTSIDE RECORDS SUMMARY | 2023-02-21 14:53 | XMS_ITS | Continuity of Care Document ---
Author Name Unknown Organization [facility] Address [address] [place] [address]- Care Team Providers Care Import Export Clerk Name Role Phone Thomas Bright Primary Care Physician [phone] [facility] ACCT R [id number] Date(s): 05/19/22 - 06/18/22 [facility] Care [address], [place] [address] Attending Physician: Román Adams Admitting Physician: AdmtrRomán Referring Physician: AdmtrRomán Allergies, Adverse Reactions, Alerts Substance Reaction Severity Status Lamictal Hives, itch Active Tegretol Hallucinations, aggression A ctive oxyCODONE Persistent Mild Active Tylenol itching Active Lobster Persistent Severe Active Percocet 7.5/325 1 C/O: itching Active influenza virus vaccine, inactivated 2 Active traMADol Active 1makes pt itchy 2Hx of Guillain - [place] Immunizations Given and Recorded Vaccine Date Status Refusal Reason pneumococcal 23-valent vaccine 02/03/17 Given Not Given Vaccine Date Status Refusal Reason pneumococcal 23-valent vaccine 01/25/17 Not Given Patient Refuses Medications atorvastatin 80 mg oral tablet 1 tablet = 80 mg, By Mouth, Daily at bedtime, # 30 tablet, 0 Refills, Maintenance, Tablet, Route toPharmacy Electronically, [id number], [facility] Start Date: 04/02/18 Stop Date: 05/02/18 [...] 1 Refills, Maintenance, 05/20/22 14:26:00 EDT, Tablet, [facility]/pharmacy #[id number], Partialfill upon patient request if [...] Active GERD (gastroesophageal reflux disease) Confirmed Active Guillain-[place] syndrome 1 Confirmed Active Hematoma of leg [...] information Personnel Name: Thomas Bright Address: Address: [address] [place] [address]
--- OUTSIDE RECORDS SUMMARY | 2023-02-21 14:53 | XMS_ITS | Continuity of Care Document ---
Author Name Unknown Organization [facility] Address [address] [place] [address]- Care Team Providers Care Evaporator Supervisor Name Role Phone Eddy PEREZ, Thomas Locke Primary Care Physician Encounter [facility] Date(s): 10/19/20 - 10/22/[address] [address] Discharge Disposition: A-Transfer VNA/Home Health Attending Physician: Kourtney Villegas MD Admitting Physician: Edd Neves MD Referring Physician: Not on Staff, Referring MD Allergies, Adverse Reactions, Alerts Substance Reaction Severity Status Lamictal Hives, itch Active Tegretol Hallucinations, aggression A ctive Tylenol itching Active Lobster Persistent Severe Active Percocet 7.5/325 1 C/O: itching Active influenza virus vaccine, inactivated 2 Active traMADol Active oxyCODONE Persistent Mild Active 1makes pt itchy 2Hx of Guillain - [place] Immunizations Given and Recorded Vaccine Date Status Refusal Reason pneumococcal 23-valent vaccine 02/03/17 Given Not Given Vaccine Date Status Refusal Reason pneumococcal 23-valent vaccine 01/25/17 Not Given Patient Refuses Medications aspirin 81 mg oral delayed release tablet See Instructions, ALY GOINSA [place]OS [place], # 30 tablet, 1 Refills, Maintenance, [id number], 175, cm, 02/26/20 14:11:00 EDT, Height, 87.5, kg, 02/26/20 14:11:00 EDT, Dry Weight Start Date: 04/12/20 Status: Ordered atorvastatin 80 mg oral tablet 1 tablet = 80 mg, By Mouth, Daily, # 30 tablet, 0 Refills, Maintenance, Tablet, Route to Pharmacy Electronically, [id number], [facility] Start Date: 04/02/18 Stop Date: [...] 0 Refills, Maintenance, 10/22/20 8:48:00 EST, Gel, [facility]/pharmacy #[id number], Partial fill upon patient request if the prescription is for a schedule... Start Date: 10/22/20 Status: Ordered Dilaudid 2 mg oral tablet 2 mg, Tablet, By Mouth, Once, PRN for Pain , Severe, Routine, 10/21/20 20:09:00 EST Start Date: 10/21/20 Stop Date: 10/21/20 Status: Completed Dilaudid 2 mg oral tablet 1 tablet = 2 mg, By Mouth, 2 times a day, PRN as needed for pain, # 6 tablet, 0 Refills, Acute 10/23/20 11:29:00 EST, 10/22/20 11:28:00 EST, Tablet, Partial fill upon patient request if the prescription is for a schedule II opioid drug. Start Date: 10/22/20 Stop Date: 10/23/20 Status: Ordered enoxaparin 80 mg/0.8 mL injectable [...] 10/22/20 8:48:00 EST, Route to Pharmacy Electronically, [facility]/pharmacy #[id number], Partial fill upon patient request if the [...] = 10 mg, By Mouth, Daily, # 3 tablet, 0 Refills, Maintenance, 10/22/20 12:36:00 EST, Tablet, [facility]/pharmacy #[id number], Partial fill upon patient request if the prescription is for a schedule II opioid drug., 175, cm, 10/22/20 11:10:00 EST, Height,... 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 Hematoma of leg(Confirmed) Active HIV disease(Confirmed) 2002 Active Hypercholesterolemia(Confirmed) 2005 Active HLD (hyperlipidemia)(Confirmed) Active HTN (hypertension)(Confirmed) Active Hypothyroidism(Confirmed) Active Skin infection(Confirmed) Active PVD (peripheral vascular disease)(Confirmed) Active 1sequelae, left sided weakness Results Orders for Microbiology Reports Name Date Urine Culture (Culture Urine) 10/20/20 Blood Culture 10/19/20 Blood Culture #2 10/19/20 Microbiology Reports TEST:Urine Culture STATUS:Auth (Verified) BODY SITE: SOURCE:URINE COLLECTED DATE/TIME:10/20/20 7:00 PM Urine Culture SPECIMEN DESCRIPTION : URINE CLEAN CATCH/MIDSTREAM SPECIAL REQUESTS : NONE CULTURE : NO GROWTH REPORT STATUS : FINAL 10/22/2020 TEST:Blood Culture, Second Order STATUS:Unauthenticated BODY SITE: SOURCE:Blood COLLECTED DATE/TIME:10/19/20 3:10 PM Blood Culture, Second Order SPECIMEN DESCRIPTION : BLOOD RAC SPECIAL REQUESTS : NONE CULTURE : NO GROWTH 3 DAYS REPORT STATUS : PRELIMINARY REPORT TEST:Blood Culture STATUS:Unauthenticated BODY SITE: SOURCE:Blood COLLECTED DATE/TIME:10/19/20 3:00 PM Blood Culture SPECIMEN DESCRIPTION : BLOOD LAC SPECIAL REQUESTS : NONE CULTURE : NO GROWTH 3 DAYS REPORT STATUS : PRELIMINARY REPORT Radiology Reports * Exam Date Time Procedure Performing Provider Status 10/19/20 1:36 PM Chest Portable Evie Doll; Au th (Verified) Notes: (Chest Portable) Reason For Exam: Persistent Cough RESULT: Chest Portable Chest Portable AP upright 1:22 PM 10/19/2020 Hx of Present Illness: Bilateral blood clots- being tx with coumadin- was here last night for increased pain in bilateral more on the leg and upper abd pain, chest pain- nausea- very agitated breathing- fevers last night- no cough.; Reason: Persistent Cough; Clinical Question(s): Pneumonia COMPARISON: 10/12/2020. FINDINGS: LINES AND TUBES: None. LUNGS AND PLEURA: Slightly coarse interstitial pulmonary markings bilaterally. Otherwise the lungs are clear. No acute consolidation. No pulmonary vascular congestion. No pleural effusion. No pneumothorax. HEART, MEDIASTINUM AND [place]: Heart is normal in size. Normal upper mediastinal and hilar contour. BONES AND SOFT TISSUES: No acute abnormality. IMPRESSION: No radiographic evidence of an acute cardiopulmonary process. I have personally reviewed the images and I agree with this report. WSN: [id number] Ordering Physician: Reji Herman Dictated By: Ramsey Car MD Dictated Date/Time: 10/19/20 1:59 pm Reviewed By: Torey Diana MD Signed By: Torey Diana MD Signed Date/Time: 10/19/20 2:04 pm Transcribed By: LOGAN Transcribed Date/Time: 10/19/20 1:44 pm Vital Signs Most recent to oldest [Reference Range]: 1 2 3 Height 175 cm (10/22/20 11:10 AM) 175 cm (10/22/20 3:28 AM) 175 cm (10/21/20 11:06 PM) Weight 89.3 kg (10/20/20 12:33 AM) 85 kg (10/19/20 9:47 PM) 85 kg (10/19/20 7:38 PM) Oxygen Saturation [94-100 %] 95 % (10/22/20 11:10 AM) 99 % (10/22/20 3:28 AM) 98 % (10/21/20 11:06 PM) Pulse Rate [55-90 bpm] 70 bpm (10/22/20 11:10 AM) 83 bpm (10/22/20 3:28 AM) 79 bpm (10/21/20 11:06 PM) Body Mass Index [18.5-24.99] 27.76 *H* (10/19/20 9:47 PM) 27.76 *H* (10/19/20 7:38 PM) 27.76 *H* (10/19/20 5:19 PM) Blood Pressure [90-138/55-84 mm Hg] 110/68mm Hg (10/22/20 11:10 AM) 107/73mm Hg (10/22/20 3:28 AM) 107/74mm Hg (10/21/20 11:06 PM) Respiratory Rate [16-30 br/min] 18 br/min (10/22/20 11:10 AM) 18 br/min (10/22/20 3:28 AM) 19 br/min (10/21/20 11:26 PM) Temperature [96.8-100.4 DegF] 98.1 DegF (10/22/20 11:10 AM) 98 DegF (10/22/20 3:28 AM) 98.5 DegF (10/21/20 11:06 PM) Mode of Delivery (Oxygen) Room air (10/22/20 11:10 AM) Room air (10/22/20 3:28 AM) Room air (10/21/20 11:06 PM) Blood pressure sites Arm, right (10/22/20 11:10 AM) Arm, right (10/22/20 3:28 AM) Arm, right (10/21/20 11:06 PM) Temperature Route Oral (10/22/20 11:10 AM) Oral (10/22/20 3:28 AM) Oral (10/21/20 11:06 PM) Dry Weight 85 kg (10/19/20 9:47 PM) 85 kg (10/19/20 7:38 PM) 85 kg (10/19/20 5:19 PM) Weight Obtained Via Bed scale (10/20/20 12:33 AM) Social History Social History Type Response Smoking Status Former smoker; Tobac co user in household: No; Type: Cigarettes; Other: quit in july 2016; Tobacco use times per day: half pack per day; Started at age: 11; entered on: 05/29/18 Sex
[2023-02-21 14:56] LABS: Appearance Urine Clear; Color Urine Yellow; Glucose Urine UA >=1000 mg/dL (Negative); Leukocyte Esterase Urine Negative (Negative); Nitrite Urine Negative (Negative); Specific Gravity - Urine >= 1.030 (1.005-1.025); UMIC TRIGGER UACC YES; Urine Blood Negative (Negative); Urine Ketones Trace mg/dL (Negative); Urine Protein Trace mg/dL (Neg-Trace)
[2023-02-21] MEDS: 0.9 % Sodium Chloride 1,000 ML 999 ML IV (15:08)
[2023-02-21] MEDS: ondansetron HCL 4 MG/2 ML VIAL IVPUSH (15:08)
[2023-02-21] MEDS: Morphine Sulfate 4 MG/ML CARTRIDGE IVPUSH (15:09)
[2023-02-21 15:10] LABS: Bacteria Urine None Seen (None Seen); Hyaline Casts Urine 0-2 /LPF (0-2); RBC Urine 0-2 /HPF (0-2); Squamous Epithelial Cell Urine 0-2 /HPF (0-2); WBC Urine 0-5 /HPF (0-5)
[2023-02-21] MEDS: iohexoL 350 MG/ML 100 ML INFUS..BTL IV (15:48)
[2023-02-21 16:14] VITALS: RESP 18
[2023-02-21] MEDS: HYDROmorphone HCl 1 MG/ML SYRINGE IVPUSH (16:14)
[2023-02-21 16:54] VITALS: BP 125/80; PULSE 64; RESP 17; O2SAT 98
== END 2023-02-21 17:13 | disposition home or self-care (01) ==
PROVIDERS: Physician Assistant; Emergency Provider Emergency Medicine
DX: R10.9 Unspecified abdominal pain (principal); K92.2 Gastrointestinal hemorrhage, unspecified; R11.0 Nausea; E11.8 Type 2 diabetes mellitus with unspecified complications; Z79.899 Other long term (current) drug therapy
CPT/HCPCS: 36415; 74177; 80048; 80076; 81001; 81003; 83690; 83735; 85025; 85610; 96374; 96375; 99284; J1170; J2270; J2405; Q9967

== ENCOUNTER 2023-04-06 14:36 | Emergency (ER) | payer MEDICARE, MEDICAID, SELFPAY ==
--- NOTE | ~2023-04-06 | US_ITS ---
EXAMINATION: ARTERIAL DUPLEX LEFT LOWER EXTREMITY CLINICAL INFORMATION: Left lower extremity numbness and pain COMPARISON: None TECHNIQUE: Duplex Doppler of the left lower extremity arterial system performed. FINDINGS: Common femoral: PSV 101 cm/s. Triphasic waveform. Deep femoral: PSV 58 cm/s. Triphasic waveform. Proximal superficial femoral: PSV 76 cm/s. Triphasic waveform. Mid superficial femoral: PSV 91 cm/s. Triphasic waveform. Distal superficial femoral: PSV 60 cm/s. Triphasic waveform. Popliteal: PSV 55 cm/s. Triphasic waveform. Posterior tibial: PSV 78 cm/s. Triphasic waveform. Peroneal: PSV 66 cm/s. Triphasic waveform. No focal abnormality seen in the patient reported area of concern at the left lateral malleolus. US/US arterial duplex LE LT IMPRESSION: No evidence of hemodynamically significant stenosis.
--- NOTE | ~2023-04-06 | US_ITS ---
EXAMINATION: LEFT LOWER EXTREMITY DEEP VENOUS ULTRASOUND CLINICAL INFORMATION: Left lower extremity swelling COMPARISON: Left lower extremity DVT study October 26, 2022 TECHNIQUE: Duplex Doppler imaging with compression maneuvers were performed of the left lower extremity deep venous system. FINDINGS: The visualized common femoral, femoral and popliteal veins demonstrate normal compressibility and color flow without evidence of venous thrombosis. Subtle linear hyperdensity within the distal femoral vein and popliteal vein and likely represent the sequelae of old resolved DVT. Visualized portions of the calf veins demonstrate normal color fill-in suggesting patency. There is no evidence of a Melton's cyst. US/US venous duplex LE LT IMPRESSION: No evidence of acute deep venous thrombosis involving the left lower extremity.
--- NOTE | ~2023-04-06 | CT_ITS ---
STUDY PERFORMED: CTA of the abdomen and pelvis with contrast HISTORY: Aortic aneurysm. DESCRIPTION: Routine abdominal CT angiogram was performed following the administration of 100 mL of Omnipaque 350 intravenous contrast. Coronal and sagittal reformatted images were created at the acquisition workstation reviewed. The images will be reviewed and postprocessed on a dedicated 3-D workstation. COMPARISON: CTA abdomen/pelvis 03/20/2022. FINDINGS: Vascular: 1. Abdominal aorta: Normal caliber of the suprarenal abdominal aorta. Redemonstration of prior endovascular aortic repair with an aortobiiliac stent graft in place. The stent graft is patent and the abdominal aortic caliber is unchanged compared to 03/20/2022. 2. Mesenteric Arteries:The celiac axis and SMA are patent. The left gastric artery appears to origin 8 that a clip from the aorta. The proximal RAMANA is occluded with collateral filling of distal branches, similar compared to 03/20/2022. 3. Renal Arteries:Due to the motion artifact, the distal aspects of the renal arteries could not be interrogated. The single renal arteries bilaterally appear to be patent proximally. 4. Iliofemoral arteries: Visualized iliofemoral arteries are normal in caliber and patent. Nonvascular: Evaluation of the solid organs is limited by the early phase of intravenous contrast. LUNG BASES: Mild bronchial wall thickening with mosaic attenuation of the lung parenchyma suggesting small airways disease and some degree of air trapping. A small calcified granulomas are noted. Partially imaged cardiomegaly. LIVER, GALLBLADDER, AND BILIARY TREE: The liver is increased in size and demonstrates decreased attenuation suggesting hepatic steatosis. Otherwise the liver is normal in shape without discrete focal lesion. Cholecystectomy. No biliary ductal dilatation. PANCREAS: Proximal fatty infiltration. No peripancreatic free fluid or fat stranding. No main duct dilatation. SPLEEN: Small calcified granulomas. ADRENAL GLANDS: Unremarkable. 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 Symmetric nephrograms. No hydronephrosis. No perinephric fat stranding. BLADDER: Unremarkable. GASTROINTESTINAL TRACT: The stomach and the small bowel are nondilated. Appendectomy. Colonic diverticulosis without significant pericolonic fat stranding/free fluid. Redemonstration of rectosigmoid surgical anastomosis. Redemonstration of nonspecific asymmetric hyperattenuating content in the left lower rectal wall coronal image 54 series 7 stable compared to 02/21/2023. No evidence of bowel obstruction. ABDOMINAL WALL: Multiple injection sites in the anterior abdominal wall. No significant hernia. LYMPH NODES: Stable periportal lymphadenopathy dating back to 06/22/2021. Scattered prominent but subcentimeter in short axis retroperitoneal lymph nodes are also not convincingly changed compared to 06/22/2021. PELVIC VISCERA: Prostatomegaly. OSSEOUS STRUCTURES: No acute or aggressive appearing osseous findings. Degenerative changes of the spine. CT/CT angio abdomen pelvis IMPRESSION: VASCULAR: 1. Redemonstration of prior endovascular aortic repair. The stent graft is patent and the abdominal aortic caliber is unchanged compared to 03/20/2022. 2. The proximal RAMANA is occluded with collateral filling of distal branches, similar compared to 03/20/2022. 3. No acute vascular abnormality. NONVASCULAR: 1. Diverticulosis but no evidence of acute diverticulitis. 2. Redemonstration of nonspecific asymmetric serpiginous enhancement in the left lower rectal wall, differential considerations include hemorrhoids, venous insufficiency, vascular malformation, underlying vascular lesion sequela of prior treatment. Clinical correlation and evaluation with direct visualization/proctoscopy is recommended. 3. Hepatomegaly and hepatic steatosis. 4. Prostatomegaly. 5. Chronic periportal lymphadenopathy. 6. Mild bronchial wall thickening and mosaic attenuation of the lung parenchyma suggesting small airways disease.
[2023-04-06 15:41] VITALS: BP 119/84; PULSE 78; RESP 20; TEMP 37.6; O2SAT 97; BMI 28.6
--- NOTE | 2023-04-06 15:41 | ED.GENADULT ---
HPI - General Adult General Chief complaint: Abdominal Pain Stated complaint: Blood Clot L Leg Time Seen by Provider: 04/06/23 17:32 Source: patient, family and old records reviewed Mode of arrival: ambulatory Limitations: no limitations History of Present Illness HPI narrative: 47 yo male with hx of DVT on fondaparinus, seizures, diabetes, HIV, AAA repair endovascular at [facility], here with lower abdominal pain x 2 days with nausea - no fevers or change in bowel movements. Also c/o left leg pain where previous clot was. He is compliant with medications. He denies urinary issues. MD complaint: abdominal pain Onset (ago): day(s) (2) Location: abdomen Radiation: non-radiation Severity: moderate Quality: aching and dull Pain Consistency: constant Relieving factors: none Exacerbating factors: movement Associated symptoms: malaise and nausea/vomiting Treatments prior to arrival: none Related Data Home Medications Medication Instructions Recorded Confirmed dabigatran etexilate 75 mg capsule 75 mg PO BID 06/13/21 07/14/21 Previous Rx's Medication Instructions Recorded ciprofloxacin HCl 250 mg tablet 250 mg PO Q12H #14 tabs 08/16/20 metronidazole 500 mg tablet 500 mg PO Q12H #14 tabs 08/16/20 (Flagyl) ondansetron HCl 4 mg tablet 4 mg PO Q8H PRN nausea and 08/16/20 (Zofran) vomiting #10 tabs hydrocortisone 2.5 % topical cream 1 appl [place] DAILY #30 grams 05/26/21 with perineal applicator (Procto-Med HC) ibuprofen 600 mg tablet 600 mg PO Q8H PRN pain #15 tabs 05/26/21 hydromorphone 2 mg tablet 2 mg PO Q8H PRN pain #10 tabs 06/22/21 (Dilaudid) ondansetron 4 mg disintegrating 4 mg PO ONCE PRN nausea and 01/26/22 tablet vomiting #10 tabs amoxicillin 500 mg capsule 1,000 mg PO BID 5 days #20 caps 10/08/22 azithromycin 250 mg tablet See Rx Instructions PO .COMPLEX #6 10/08/22 (Zithromax Z-Tye) tabs morphine 15 mg immediate release 15 mg PO Q4-6H PRN pain #14 tabs 10/08/22 tablet benzonatate 100 mg capsule 100 mg PO TID PRN cough #14 caps 10/26/22 morphine 15 mg immediate release 15 mg PO TID PRN pain #10 tabs 04/06/23 tablet ondansetron 4 mg disintegrating 4 mg PO Q8H PRN nausea and 04/06/23 tablet vomiting #20 tabs Allergies Allergy/AdvReac Type Severity Reaction Status Date / Time influenza virus vaccine, Allergy Severe GUILLIAN Verified 04/06/23 15:45 specific BARRE HX. [FLU VACCINE] tramadol [TRAMADOL] Allergy Severe SEIZURES Verified 04/06/23 15:45 acetaminophen [From PERCOCET] Allergy Intermediate ITCHING Verified 04/06/23 15:45 carbamazepine [From TEGRETOL] Allergy Intermediate HALLUCINATI Verified 04/06/23 15:45 ONS lamotrigine [From LAMICTAL] Allergy Intermediate ITCHING Verified 04/06/23 15:45 metoclopramide [From REGLAN] Allergy Intermediate ITCHY Verified 04/06/23 15:45 oxycodone [From PERCOCET] Allergy Intermediate ITCHING Verified 04/06/23 15:45 SEAFOOD Allergy Severe ANAPHYLAXIS Uncoded 04/06/23 15:45 Review of Systems Review of Systems: Constitutional : No Weight loss, No Fever, No Chills ENT/Mouth : No sore throat, No Rhinorrhea Eyes: No Swelling, No Redness Cardiovascular : No Chest Pain, No SOB, NoEdema Respiratory : No Cough, No Sputum, No Wheezing Gastrointestinal : Positive Nausea, Positive Vomiting, no Diarrhea, positive abdominal Pain, No Hematochezia, No Melena Genitourinary : No Dysuria, No Urinary Frequency, No Hematuria, No Urgency Musculoskeletal : No joint pain, No Myalgias, No Joint Swelling Skin : No Skin Lesions, No rash Neuro : No Weakness, No Numbness, No Dizziness, No Headache Psych : No Anxiety/Panic, No Depression Heme/Lymph: No Bruising, No Lymphadenopathy Endocrine : No Polyuria, No Polydipsia All other systems reviewed and are negative. [facility] Past Medical History Attestation statement: The following information was validated with the patient. Medical History COVID-19 Diabetes DVT (deep venous thrombosis) HIV (human immunodeficiency virus infection) Left sided abdominal pain Seizure disorder Surgical History H/O fasciotomy S/P AAA (abdominal aortic aneurysm) repair S/P IVC filter Status post cholecystectomy Status post laparoscopic appendectomy Social History Social History Alcohol intake: never Patient Tobacco Use Status: Former Tobacco user Advance Directives: No Advance Directives Information Provided: No Physical Exam ED Vital Signs: Vital Signs - 24 hr 04/06/23 15:41 04/06/23 17:12 Temperature 99.6 F 98.2 F Pulse Rate 78 70 Respiratory Rate 20 16 Blood Pressure 119/84 112/62 Pulse Oximetry 97 97 Oxygen Delivery Method Room Air Room Air BMI result Body Mass Index 28.6 Appearance: Alert. Oriented X3. No acute distress. Eyes: Pupils equal, round and reactive to light. ENT: Pharynx normal. Neck: Normal inspection. Neck supple. CVS: Normal heart rate and rhythm. Pulses normal. Respiratory: No respiratory distress. Breath sounds normal. Abdomen: Soft and mild diffuse ttp but no rebound Skin: Skin warm and dry. Normal skin color. Normal skin turgor. Extremities: No lower extremity edema. No calf ttp distal pulses intact Neuro: Oriented X 3. No motor deficit. No sensory deficit. Course Course Course Narrative: This is an RME: Additional HPI, ROS, PE not included below will be deferred to primary provider. 47 year old male hx AAA, dvt, presents w/ LLE pain and swelling worsening, severe mid abdominal pain and sevre cp. Patient looks uncomfortable/ unwell in triage speaking to charge for possible bed asignment Spoke to Elle patient to be placed in 13H Reevaluation(s) Reevaluation #1: no acute findings unchanged CT scan Reevaluation #2: feels better after 2nd dose of medications Medications Administered Discontinued Medications Generic Name Dose Route Start Last Admin Trade Name Freq PRN Reason Stop Dose Admin Hydromorphone HCl 1 mg 04/06/23 20:23 04/06/23 20:49 Hydromorphone Hcl 1 Mg/Ml Syringe IVPUSH 04/06/23 20:24 1 mg ONCE ONE Administration Protocol Sodium Chloride 1,000 mls @ 999 mls/hr 04/06/23 18:30 04/06/23 18:45 Ns IV 04/06/23 19:30 999 mls/hr .Q1H1M HAYLEY Administration Morphine Sulfate 4 mg 04/06/23 18:23 04/06/23 18:45 Morphine Sulfate 4 Mg/Ml Cartridge IVPUSH 04/06/23 18:24 4 mg ONCE ONE Administration Protocol Ondansetron HCl 4 mg 04/06/23 18:23 04/06/23 18:45 Ondansetron Hcl 4 Mg/2 Ml Vial IVPUSH 04/06/23 18:24 4 mg ONCE ONE Administration Medical Decision Making Medical Decision Making [facility] Narrative: 47 yo male with hx of DVT on fondaparinus, seizures, diabetes, HIV, AAA repair endovascular at [facility] here with c/o abdominal pain and leg pain - he has normal DVT study and arterial study from triage. He has no diarrhea, bloody stools, dysuria. He will need CTA of the abdomen to assess for endovascular leak and looks for diverticulitis. I have ordered IVF and morphine/zofran. Dispo per results and findnigs. Differential Diagnosis Differential Diagnoses: The differential diagnosis associated with the presentation includes diverticulitis, constipation, abdominal pain, endovascular leak Admission/Observation Consideration of admission/observation: Escalation of care including admission/observation considered unchanged CT scan - significant negative workup at this time, pain improved stable for DC Lab Data [facility] Lab Attestation statement: I reviewed the patient's lab results. 04/06/23 17:04 04/06/23 17:04 Labs: Lab Results 04/06/23 04/06/23 04/06/23 Range/Units 17:04 17:04 17:04 WBC 4.2 L (4.8-10.8) X10*3/uL RBC 4.57 L (4.60-5.80) X10*6/uL Hgb 13.0 L (14.0-18.0) g/dl Hct 40.9 L (42.0-52.0) % MCV 89.5 (80.0-98.0) fL MCH 28.4 (27.0-33.0) pg MCHC 31.8 (31.0-36.0) g/dl RDW 15.4 (11.0-16.0) % Plt Count 171 (160-400) X10*3/uL MPV 9.3 L (9.4-12.4) fL Immature Gran % (Auto) 0.0 (0.0-0.4) % Neut % (Auto) 32.5 L (45-73) % Lymph % (Auto) 55.4 H (20-40) % Kingfisher % (Auto) 10.6 (2-11) % Eos % (Auto) 1.0 (0-4) % Baso % (Auto) 0.5 (0-2) % Lymph # (Auto) 2.3 (1.2-4.9) X10*3/uL Kingfisher # (Auto) 0.4 (0.1-1.2) X10*3/uL Eos # (Auto) 0.0 (0.0-0.4) X10*3/uL Baso # (Auto) 0.0 (0.0-0.2) X10*3/uL Abs Immat Gran (auto) 0.00 (0.00-0.03) X10*3/uL Absolute Neuts (auto) 1.4 L (2.0-8.3) x10*3/uL Absolute Nucleated RBC 0.000 (0.0-0.012) X10*3/uL Nucleated RBC % (auto) 0.0 (0.0-0.2) /100WBC PT 12.7 (11.1-13.3) SEC INR 1.0 (0.9-1.1) Sodium (135-145) mmol/L Potassium (3.3-5.1) mmol/L Chloride (96-108) mmol/L Carbon Dioxide (22-29) mmol/L Anion Gap (12-20) BUN (9-16) mg/dL Creatinine (0.5-1.4) mg/dL Estim Creat Clear Calc Estimated GFR Random Glucose (60-115) mg/dL Lactic Acid 1.4 (0.5-2.0) mmol/L Calcium (8.4-10.2) mg/dL Magnesium (1.6-2.6) mg/dL Total Bilirubin (0.0-1.0) mg/dL AST (5-37) U/L ALT (0-40) U/L Alkaline Phosphatase (39-117) U/L Total Creatine Kinase (38-174) U/L Troponin I High Sens (<3.5-35.0) ng/L B-Natriuretic Peptide (<100) pg/mL Total Protein (6.5-8.0) g/dL Albumin (3.5-5.0) g/dL Lipase (8-78) U/L 04/06/23 04/06/23 04/06/23 Range/Units 17:04 17:04 18:00 WBC (4.8-10.8) X10*3/uL RBC (4.60-5.80) X10*6/uL Hgb (14.0-18.0) g/dl Hct (42.0-52.0) % MCV (80.0-98.0) fL MCH (27.0-33.0) pg MCHC (31.0-36.0) g/dl RDW (11.0-16.0) % Plt Count (160-400) X10*3/uL MPV (9.4-12.4) fL Immature Gran % (Auto) (0.0-0.4) % Neut % (Auto) (45-73) % Lymph % (Auto) (20-40) % Kingfisher % (Auto) (2-11) % Eos % (Auto) (0-4) % Baso % (Auto) (0-2) % Lymph # (Auto) (1.2-4.9) X10*3/uL Kingfisher # (Auto) (0.1-1.2) X10*3/uL Eos # (Auto) (0.0-0.4) X10*3/uL Baso # (Auto) (0.0-0.2) X10*3/uL Abs Immat Gran (auto) (0.00-0.03) X10*3/uL Absolute Neuts (auto) (2.0-8.3) x10*3/uL Absolute Nucleated RBC (0.0-0.012) X10*3/uL Nucleated RBC % (auto) (0.0-0.2) /100WBC PT (11.1-13.3) SEC INR (0.9-1.1) Sodium 141 (135-145) mmol/L Potassium 3.9 (3.3-5.1) mmol/L Chloride 109 H (96-108) mmol/L Carbon Dioxide 23 (22-29) mmol/L Anion Gap 13 (12-20) BUN 9 (9-16) mg/dL Creatinine 1.02 (0.5-1.4) mg/dL Estim Creat Clear Calc 96.1 Estimated GFR > 60 Random Glucose 144 H (60-115) mg/dL Lactic Acid (0.5-2.0) mmol/L Calcium 9.0 D (8.4-10.2) mg/dL Magnesium 2.1 (1.6-2.6) mg/dL Total Bilirubin 0.4 (0.0-1.0) mg/dL AST 27 (5-37) U/L ALT 27 (0-40) U/L Alkaline Phosphatase 125 H (39-117) U/L Total Creatine Kinase 302 H (38-174) U/L Troponin I High Sens < 2.7 (<3.5-35.0) ng/L B-Natriuretic Peptide 11 (<100) pg/mL Total Protein 8.1 H (6.5-8.0) g/dL Albumin 3.8 (3.5-5.0) g/dL Lipase 10 (8-78) U/L Independent Interpretation I performed an independent interpretation of an: EKG and CT Scan (chronic findings) Interpretation: Rate: 83 Rhythm: NSR Amorita: normal Normal P waves. Normal JUDITH. Normal QRS complex. ST T wave : nonspecific inverted t wave III aVF, no DYLAN qTC: normal prior studies: no acute ischemia The study has been interpreted contemporaneously by me. . Radiology Impression Discussion of test interpretation with radiology: I have reviewed the radiologist's reading. Independent Historian Clinical information obtained from an independent historian. History obtained from or confirmed by: Friend External Record Review External record reviewed: Inpatient record Prescription Management I considered prescription management with: Pain Medication and Other Critical Care Time Critical Care Time Critical Care Time: Yes Total Critical Care Time: 31 Attestation: 2 doses of IV narcotics he is feeling better. Discharge Plan Discharge Clinical Impression: Abdominal pain Qualifiers: Abdominal location: generalized Qualified Code(s): R10.84 - Generalized abdominal pain Patient Disposition: Home, Self-Care Instructions: Abdominal Pain (ED) Additional Instructions: no acute changes on CT scan from priors, labs stable - no blood clot and normal arterial study. 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 I would also talk to a surgeon about your chronic abdominal pain. return for worsening pain, fevers, vomiting, black or blood stools or any other concerns. sin cambios agudos en la tomograf?a computarizada de anteriores, laboratorios estables - sin co?gulos de jarred y estudio arterial normal. en summer momento kirk un seguimiento con de la garza m?dico y gastroenter?logo. Tambi?n hablar?a con un cirujano sobre de la garza dolor abdominal cr?imer. regrese por empeoramiento del dolor, fiebre, v?mitos, heces negras o con jarred o cualquier otra inquietud. Prescriptions: New morphine 15 mg tablet 15 mg PO TID PRN (Reason: pain) Qty: 10 0RF Rx Instructions: partial fill okay; Partial Fill upon patient request. ondansetron 4 mg tablet,disintegrating 4 mg PO Q8H PRN (Reason: nausea and vomiting) Qty: 20 0RF No Action metronidazole [Flagyl] 500 mg tablet 500 mg PO Q12H Qty: 14 0RF ciprofloxacin HCl 250 mg tablet 250 mg PO Q12H Qty: 14 0RF ondansetron HCl [Zofran] 4 mg tablet 4 mg PO Q8H PRN (Reason: nausea and vomiting) Qty: 10 0RF ondansetron 4 mg tablet,disintegrating 4 mg PO ONCE PRN (Reason: nausea and vomiting) Qty: 10 0RF amoxicillin 500 mg capsule 1,000 mg PO BID 5 Days Qty: 20 0RF azithromycin [Zithromax Z-Tye] 250 mg tablet See Rx Instructions .ROUTE .COMPLEX Qty: 6 0RF Rx Instructions: take 500 mg today (day 1), then 250 mg for 4 days (days 2-5) morphine 15 mg tablet 15 mg PO Q4-6H PRN (Reason: pain) Qty: 14 0RF Rx Instructions: Patient may request partial fill; Partial Fill upon patient request. hydrocortisone [Procto-Med HC] 2.5 % cream with perineal applicator 1 appl W[place] DAILY Qty: 30 0RF ibuprofen 600 mg tablet 600 mg PO Q8H PRN (Reason: pain) Qty: 15 0RF hydromorphone [Dilaudid] 2 mg tablet 2 mg PO Q8H PRN (Reason: pain) Qty: 10 0RF benzonatate 100 mg capsule 100 mg PO TID PRN (Reason: cough) Qty: 14 0RF dabigatran etexilate 75 mg capsule 75 mg PO BID Referrals: Basilio Kaba MD [Physician] -
--- NOTE | 2023-04-06 15:44 | ECG_ITS ---
Test Reason : SOB Blood Pressure : / mmHG Vent. Rate : 083 BPM Atrial Rate : 083 BPM P-R Int : 136 ms QRS Dur : 086 ms QT Int : 372 ms P-R-T Axes : 012 033 -03 degrees QTc Int : 437 ms Normal sinus rhythm Nonspecific T wave abnormality Abnormal ECG When compared with ECG of 26-OCT-2022 13:12, No significant change was found Referred By: Bam Ayoub Electronically Signed By:Antonio Medina
--- NOTE | 2023-04-06 16:19 | PC.NURSE ---
pt off unit at ultrasound
[2023-04-06 17:12] VITALS: BP 112/62; PULSE 70; RESP 16; TEMP 36.8; O2SAT 97
[2023-04-06 17:12] LABS: MANUAL DIFF FLAG NO
[2023-04-06 17:13] LABS: Basophils Percent Auto 0.5 % (0-2); Hematocrit 40.9 % (42.0-52.0); Lymphocytes Absolute Auto 2.3 X10*3/uL (1.2-4.9); Lymphocytes Percent Auto 55.4 % (20-40); Mean Corpuscular HGB Conc 31.8 g/dl (31.0-36.0); Mean Corpuscular Hemoglobin 28.4 pg (27.0-33.0); Mean Corpuscular Volume 89.5 fL (80.0-98.0); Mean Platelet Volume 9.3 fL (9.4-12.4); Monocytes Absolute Auto 0.4 X10*3/uL (0.1-1.2); Monocytes Percent Auto 10.6 % (2-11); Neutrophils Absolute Auto 1.4 x10*3/uL (2.0-8.3); Neutrophils Percent Auto 32.5 % (45-73); Platelet Count 171 X10*3/uL (160-400); Red Blood Count 4.57 X10*6/uL (4.60-5.80); Red Cell Distribution Width 15.4 % (11.0-16.0); White Blood Count 4.2 X10*3/uL (4.8-10.8)
[2023-04-06 17:18] LABS: Prothrombin Time 12.7 SEC (11.1-13.3)
[2023-04-06 17:29] LABS: Lactic Acid 1.4 mmol/L (0.5-2.0)
[2023-04-06 17:47] LABS: Troponin-I High Sensitivity < 2.7 ng/L (<3.5-35.0)
[2023-04-06 17:48] LABS: B Type Natriuretic Peptide 11 pg/mL (<100)
[2023-04-06 18:36] LABS: Alanine Aminotransferase 27 U/L (0-40); Albumin Level 3.8 g/dL (3.5-5.0); Alkaline Phosphatase 125 U/L (39-117); Anion Gap 13 (12-20); Aspartate Amino Transferase 27 U/L (5-37); Bilirubin Total 0.4 mg/dL (0.0-1.0); Blood Urea Nitrogen 9 mg/dL (9-16); Carbon Dioxide 23 mmol/L (22-29); Chloride 109 mmol/L (96-108); Creatinine Clr Calc Pharmacy 96.1; Estimated Glomerular Filt Rate > 60; Glucose Random 144 mg/dL (60-115); Lipase 10 U/L (8-78); Magnesium 2.1 mg/dL (1.6-2.6); Potassium 3.9 mmol/L (3.3-5.1); Sodium 141 mmol/L (135-145); Total Protein 8.1 g/dL (6.5-8.0)
[2023-04-06] MEDS: Morphine Sulfate 4 MG/ML CARTRIDGE IVPUSH (18:45)
[2023-04-06] MEDS: ondansetron HCL 4 MG/2 ML VIAL IVPUSH (18:45)
[2023-04-06] MEDS: 0.9 % Sodium Chloride 1,000 ML 999 ML IV (18:45)
[2023-04-06] MEDS: HYDROmorphone HCl 1 MG/ML SYRINGE IVPUSH (20:49)
--- NOTE | 2023-04-06 20:57 | PC.NURSE ---
Patient complaining of continued abdominal pain. Provider made aware and patient medicated per MAR.
[2023-04-06] MEDS: Morphine Sulfate Immed Release 15 MG TABLET PO (22:33)
[2023-04-06 23:07] VITALS: BP 124/80; PULSE 72; RESP 16; O2SAT 97
== END 2023-04-06 23:11 | disposition home or self-care (01) ==
PROVIDERS: Physician Assistant; Emergency Provider Emergency Medicine
DX: R10.84 Generalized abdominal pain (principal); M79.605 Pain in left leg; E11.9 Type 2 diabetes mellitus without complications; B20 Human immunodeficiency virus [HIV] disease; Z86.718 Personal history of other venous thrombosis and embolism; Z79.01 Long term (current) use of anticoagulants
CPT/HCPCS: 36415; 74174; 80053; 82550; 83605; 83690; 83735; 83880; 84484; 85025; 85610; 87040; 93005; 93926; 93971; 96374; 96375; 96376; 99284; 99285; J1170; J2270; J2405

== ENCOUNTER → 2023-04-06 15:44 | Outpatient (BNV) | payer MEDICARE, MEDICAID, SELFPAY | PROVIDERS: Emergency Provider Emergency Medicine; Visit Provider Internal Medicine Cardiovascular Disease | DX: R94.31 Abnormal electrocardiogram [ECG] [EKG] (principal) | CPT/HCPCS: 93010 ==

== ENCOUNTER 2023-05-07 09:59 | Emergency (ER) | payer MEDICARE, MEDICAID, SELFPAY ==
--- NOTE | ~2023-05-07 | US_ITS ---
EXAMINATION: US ABDOMEN COMPLETE CLINICAL INFORMATION: Abdominal pain. History of aortic repair. COMPARISON: None available. TECHNIQUE: Real-time imaging of the abdominal viscera. FINDINGS: PANCREAS: Obscured by overlying bowel gas ABDOMINAL AORTA: The proximal, mid, and distal segments are normal in caliber. Aortic stent graft artifact suggested INFERIOR VENA CAVA: Visualized portions are normal. LIVER: Diffusely increased hepatic echotexture suggesting diffuse fatty infiltration. The liver is normal in size. The liver contour is normal. No focal hepatic lesion. There is no intrahepatic biliary duct dilatation seen. GALLBLADDER: Status post cholecystectomy. COMMON BILE DUCT: Normal in caliber measuring 0.5 cm in diameter. RIGHT KIDNEY: Normal. No hydronephrosis. No renal calculi or focal parenchymal lesions. The kidney measures 11.5 cm in maximum dimension. LEFT KIDNEY: Normal. No hydronephrosis. No renal calculi or focal parenchymal lesions. The kidney measures 11.4 cm in maximum dimension. SPLEEN: Incidental splenic granuloma. The spleen measures 9.5 cm in maximum dimension. FREE FLUID: None. US/US abdomen complete IMPRESSION: Diffusely increased hepatic echotexture suggesting diffuse fatty infiltration but no focal hepatic lesion or biliary ductal dilatation.
--- NOTE | ~2023-05-07 | US_ITS ---
EXAMINATION: US VENOUS ULTRASOUND WITH DOPPLER LOWER EXTREMITY, LEFT CLINICAL INFORMATION: Pain and swelling COMPARISON: None available. TECHNIQUE: Ultrasound of the deep veins is performed from the hip to the calf with compression sonography and color and pulse Doppler assessment. Spectral analysis with color-flow imaging is performed. FINDINGS: There is normal venous compression and respiratory variation and augmented flow. The visualized common femoral vein, superficial femoral vein, profunda femoral vein, popliteal vein, and the trifurcation region shows no evidence of deep venous thrombosis. There is no significant popliteal fossa cyst. If the patient's symptoms persist, followup ultrasound in 5 days 7 days might be of value to exclude proximal propagation from a non-visualized calf vein. US/US venous duplex LE LT IMPRESSION: No DVT demonstrated in the left lower extremity.
[2023-05-07 10:24] VITALS: BP 110/76; PULSE 87; RESP 20; TEMP 36.7; O2SAT 96; BMI 28.6
--- NOTE | 2023-05-07 10:27 | ECG_ITS ---
Test Reason : sob Blood Pressure : / mmHG Vent. Rate : 074 BPM Atrial Rate : 074 BPM P-R Int : 150 ms QRS Dur : 088 ms QT Int : 404 ms P-R-T Axes : -14 015 013 degrees QTc Int : 448 ms Normal sinus rhythm Nonspecific T wave abnormality Abnormal ECG When compared with ECG of 06-APR-2023 15:48, No significant change was found Referred By: Generic ED Physician Electronically Signed By:REY HERRERA
[2023-05-07 10:50] LABS: MANUAL DIFF FLAG NO
[2023-05-07 10:57] LABS: Prothrombin Time 11.9 SEC (11.1-13.3)
[2023-05-07 10:58] LABS: Basophils Percent Auto 0.9 % (0-2); Eosinophils Percent Auto 0.3 % (0-4); Hematocrit 39.6 % (42.0-52.0); Hemoglobin 13.1 g/dl (14.0-18.0); Lymphocytes Absolute Auto 1.6 X10*3/uL (1.2-4.9); Lymphocytes Percent Auto 48.5 % (20-40); Mean Corpuscular HGB Conc 33.1 g/dl (31.0-36.0); Mean Corpuscular Hemoglobin 29.3 pg (27.0-33.0); Mean Corpuscular Volume 88.6 fL (80.0-98.0); Mean Platelet Volume 10.2 fL (9.4-12.4); Monocytes Absolute Auto 0.3 X10*3/uL (0.1-1.2); Monocytes Percent Auto 8.5 % (2-11); Neutrophils Absolute Auto 1.4 x10*3/uL (2.0-8.3); Neutrophils Percent Auto 41.8 % (45-73); Platelet Count 169 X10*3/uL (160-400); Red Blood Count 4.47 X10*6/uL (4.60-5.80); Red Cell Distribution Width 14.7 % (11.0-16.0); White Blood Count 3.3 X10*3/uL (4.8-10.8)
[2023-05-07 11:00] LABS: Partial Thromboplastin Time 30.4 SEC (26.0-36.4)
[2023-05-07 11:10] LABS: Alanine Aminotransferase 30 U/L (0-40); Albumin Level 3.9 g/dL (3.5-5.0); Alkaline Phosphatase 139 U/L (39-117); Anion Gap 12 (12-20); Aspartate Amino Transferase 30 U/L (5-37); Bilirubin Total 0.3 mg/dL (0.0-1.0); Blood Urea Nitrogen 11 mg/dL (9-16); Calcium 9.1 mg/dL (8.4-10.2); Carbon Dioxide 21 mmol/L (22-29); Chloride 109 mmol/L (96-108); Creatinine Clr Calc Pharmacy 83.1; Estimated Glomerular Filt Rate > 60; Glucose Random 242 mg/dL (60-115); Potassium 4.5 mmol/L (3.3-5.1); Sodium 137 mmol/L (135-145); Total Protein 8.7 g/dL (6.5-8.0)
[2023-05-07 11:17] LABS: Troponin-I High Sensitivity < 2.7 ng/L (<3.5-35.0)
[2023-05-07 15:40] VITALS: BP 115/74; PULSE 75; RESP 14; TEMP 36.4; O2SAT 98
--- NOTE | 2023-05-07 16:08 | ED_ITS ---
HPI - Abdominal Pain General Chief Complaint: Abdominal Pain Stated Complaint: abd pain Time Seen by Provider: 05/07/23 15:36 Source: patient and other (Friend) Limitations: no limitations History of Present Illness HPI narrative: 47-year-old male with history of AAA status post repair, DVT on anticoagulation presents with abdominal pain and left leg pain. Patient's symptoms started 1 week ago. The symptoms are constant but intermittently get worse. Pain is currently a 7/10. There is no clear relieving or exacerbating features. There is no nausea, vomiting, diarrhea or constipation. He is having normal bowel movements and passing flatus. Denies any fevers or chills. Denies any urinary frequency or urgency. Patient also is having left leg pain. The pain is [id number]. He notes some slightly increased swelling. This was the location of his previous DVT. Patient was seen in the emergency department approximate 1 month ago for similar findings. Had a CT of the abdomen and the left lower extremity duplex ultrasound which were all negative for acute pathology. Related Data Home Medications Medication Instructions Recorded Confirmed dabigatran etexilate 75 mg capsule 75 mg PO BID 06/13/21 07/14/21 Previous Rx's Medication Instructions Recorded ciprofloxacin HCl 250 mg tablet 250 mg PO Q12H #14 tabs 08/16/20 metronidazole 500 mg tablet 500 mg PO Q12H #14 tabs 08/16/20 (Flagyl) ondansetron HCl 4 mg tablet 4 mg PO Q8H PRN nausea and 08/16/20 (Zofran) vomiting #10 tabs hydrocortisone 2.5 % topical cream 1 appl SC DAILY #30 grams 05/26/21 with perineal applicator (Procto-Med HC) ibuprofen 600 mg tablet 600 mg PO Q8H PRN pain #15 tabs 05/26/21 hydromorphone 2 mg tablet 2 mg PO Q8H PRN pain #10 tabs 06/22/21 (Dilaudid) ondansetron 4 mg disintegrating 4 mg PO ONCE PRN nausea and 01/26/22 tablet vomiting #10 tabs amoxicillin 500 mg capsule 1,000 mg (2 x 500 mg) PO BID 5 10/08/22 days #20 caps azithromycin 250 mg tablet See Rx Instructions PO .COMPLEX #6 10/08/22 (Zithromax Z-Tye) tabs morphine 15 mg immediate release 15 mg PO Q4-6H PRN pain #14 tabs 10/08/22 tablet benzonatate 100 mg capsule 100 mg PO TID PRN cough #14 caps 10/26/22 morphine 15 mg immediate release 15 mg PO TID PRN pain #10 tabs 04/06/23 tablet ondansetron 4 mg disintegrating 4 mg PO Q8H PRN nausea and 04/06/23 tablet vomiting #20 tabs klwvxiisb-fkwzqvoii-njvuegle-scop 1 tab PO BID PRN abdominal pain 05/07/23 16.2 mg-0.1037 mg-0.0194 mg tablet #10 tabs () Allergies Allergy/AdvReac Type Severity Reaction Status Date / Time influenza virus vaccine, Allergy Severe GUILLIAN Verified 04/06/23 15:45 specific BARRE HX. [FLU VACCINE] tramadol [TRAMADOL] Allergy Severe SEIZURES Verified 04/06/23 15:45 acetaminophen [From PERCOCET] Allergy Intermediate ITCHING Verified 04/06/23 15:45 carbamazepine [From TEGRETOL] Allergy Intermediate HALLUCINATI Verified 04/06/23 15:45 ONS lamotrigine [From LAMICTAL] Allergy Intermediate ITCHING Verified 04/06/23 15:45 metoclopramide [From REGLAN] Allergy Intermediate ITCHY Verified 04/06/23 15:45 oxycodone [From PERCOCET] Allergy Intermediate ITCHING Verified 04/06/23 15:45 SEAFOOD Allergy Severe ANAPHYLAXIS Uncoded 04/06/23 15:45 Review of Systems Review of Systems CONSTITUTIONAL: Denies weight loss, fever and chills. HEENT: Denies changes in vision and hearing. RESPIRATORY: Denies SOB and cough. CV: Denies palpitations no CP. GI: + abdominal pain, -nausea, vomiting and diarrhea. : Denies dysuria and urinary frequency. MSK: + myalgia and joint pain. SKIN: Denies rash and pruritus. NEUROLOGICAL: Denies headache and syncope. PSYCHIATRIC: Denies recent changes in mood. Denies anxiety and depression. All other ROS are negative unless in HPI PMFSH Past Medical History Medical History COVID-19 Diabetes DVT (deep venous thrombosis) HIV (human immunodeficiency virus infection) Left sided abdominal pain Seizure disorder Surgical History H/O fasciotomy S/P AAA (abdominal aortic aneurysm) repair S/P IVC filter Status post cholecystectomy Status post laparoscopic appendectomy Social History Social History Alcohol intake: never Patient Tobacco Use Status: Former Tobacco user Advance Directives: No Advance Directives Information Provided: Yes Physical Exam ED Vital Signs: Vital Signs - 24 hr 05/07/23 10:24 05/07/23 15:40 05/07/23 16:09 Temperature 98.0 F 97.6 F 98.1 F Pulse Rate 87 75 69 Respiratory Rate 20 14 16 Blood Pressure 110/76 115/74 115/76 Pulse Oximetry 96 98 97 Oxygen Delivery Method Room Air Room Air Room Air 05/07/23 18:47 Temperature 98.0 F Pulse Rate 69 Respiratory Rate 16 Blood Pressure 118/76 Pulse Oximetry 97 Oxygen Delivery Method Room Air BMI result Body Mass Index 28.6 GEN: Well developed, no acute distress, alert, oriented HEENT: Normocephalic, atraumatic, normal external ears, nose appears normal, no oropharyngeal edema or exudates Eyes: Normal to appearance Neck: Supple, no lymphadenopathy Respiratory: Talks in complete sentences, no respiratory distress, clear to auscultation bilaterally Cardiovascular: Regular rate and rhythm, no murmurs rubs or gallops Abdomen: Mild abdominal tenderness, no rebound or guarding, hold periumbilical scar Back: No CVA tenderness Extremities: No clubbing cyanosis or edema Neurologic: No focal neurologic deficits, cranial nerves 2-12 intact, strength is 5/5 bilaterally Skin: No rash Course Course Course Narrative: The workup is complete. Ultrasound did not identify any acute abnormalities. There is no DVT. Lab work was essentially normal. He does have a fatty liver which was seen previously. At this point I do not see it reasoning for repeat abdominal imaging given the same imaging for the similar symptoms were performed 1 month ago. He has tried dicyclomine in the past. Will try and have him follow-up with his primary care provider. He can certainly return for any worsening or concerning symptoms. Medical Decision Making Medical Decision Making MDM Narrative: Patient was evaluated for similar symptoms approximately 1 month ago. He is currently complaining abdominal pain. Examination was relatively benign. I have a low degree of suspicion is for a lorena you aortic graft leak. His imaging studies were negative for this 1 month ago. I will do an ultrasound to further evaluate. In addition he is complaining of left lower extremity pain and swelling. I did not appreciate any significant edema. He is on anticoagulation. Will do a DVT study as well. I will provide the patient with analgesia. At this point, differential diagnosis is most likely IBS, bacterial overgrowth, mesenteric adenitis, slow transit, less likely to be acute significant pathology such as colitis, diverticulitis, perforated viscus. At this point, I do not believe patient warrants an emergent CT scan given recent imaging for similar complaints and a relatively benign evaluation. Differential Diagnosis Differential Diagnoses: The differential diagnosis associated with the presentation includes (See above) Admission/Observation Consideration of admission/observation: Escalation of care including admission/observation considered Lab Data MDM Lab Attestation statement: I reviewed the patient's lab results. 05/07/23 10:46 05/07/23 10:46 Labs: Lab Results 05/07/23 Range/Units 10:46 WBC 3.3 L (4.8-10.8) X10*3/uL RBC 4.47 L (4.60-5.80) X10*6/uL Hgb 13.1 L (14.0-18.0) g/dl Hct 39.6 L (42.0-52.0) % MCV 88.6 (80.0-98.0) fL MCH 29.3 (27.0-33.0) pg MCHC 33.1 (31.0-36.0) g/dl RDW 14.7 (11.0-16.0) % Plt Count 169 (160-400) X10*3/uL MPV 10.2 (9.4-12.4) fL Immature Gran % (Auto) 0.0 (0.0-0.4) % Neut % (Auto) 41.8 L (45-73) % Lymph % (Auto) 48.5 H (20-40) % [place] % (Auto) 8.5 (2-11) % Eos % (Auto) 0.3 (0-4) % Baso % (Auto) 0.9 (0-2) % Lymph # (Auto) 1.6 (1.2-4.9) X10*3/uL [place] # (Auto) 0.3 (0.1-1.2) X10*3/uL Eos # (Auto) 0.0 (0.0-0.4) X10*3/uL Baso # (Auto) 0.0 (0.0-0.2) X10*3/uL Abs Immat Gran (auto) 0.00 (0.00-0.03) X10*3/uL Absolute Neuts (auto) 1.4 L (2.0-8.3) x10*3/uL Absolute Nucleated RBC 0.000 (0.0-0.012) X10*3/uL Nucleated RBC % (auto) 0.0 (0.0-0.2) /100WBC PT 11.9 (11.1-13.3) SEC INR 1.0 (0.9-1.1) APTT 30.4 (26.0-36.4) SEC Sodium 137 (135-145) mmol/L Potassium 4.5 (3.3-5.1) mmol/L Chloride 109 H (96-108) mmol/L Carbon Dioxide 21 L (22-29) mmol/L Anion Gap 12 (12-20) BUN 11 (9-16) mg/dL Creatinine 1.18 (0.5-1.4) mg/dL Estim Creat Clear Calc 83.1 Estimated GFR > 60 Random Glucose 242 H (60-115) mg/dL Calcium 9.1 (8.4-10.2) mg/dL Total Bilirubin 0.3 (0.0-1.0) mg/dL AST 30 (5-37) U/L ALT 30 (0-40) U/L Alkaline Phosphatase 139 H (39-117) U/L Troponin I High Sens < 2.7 (<3.5-35.0) ng/L Total Protein 8.7 H (6.5-8.0) g/dL Albumin 3.9 (3.5-5.0) g/dL Independent Interpretation I performed an independent interpretation of an: Ultrasound (No acute abnormalities noted) Radiology Impression Discussion of test interpretation with radiology: I have reviewed the radiologist's reading. Radiologist Impression: US/US abdomen complete IMPRESSION: Diffusely increased hepatic echotexture suggesting diffuse fatty infiltration but no focal hepatic lesion or biliary ductal dilatation. Dictated By: Reji Luque MD Signed By: <Electronically signed by Reji Luque MD in [place]> 05/07/23 1820 US/US venous duplex LE LT IMPRESSION: No DVT demonstrated in the left lower extremity. Dictated By: Reji Luque MD Signed By: <Electronically signed by Reji Luque MD in [place]> 05/07/23 1817 Independent Historian Clinical information obtained from an independent historian. History obtained from or confirmed by: Friend Prescription Management I considered prescription management with: Pain Medication Chronic Conditions Patient?s care impacted by: Other (AAA) Medications Administered Discontinued Medications Generic Name Dose Route Start Last Admin Trade Name Freq PRN Reason Stop Dose Admin Morphine Sulfate 4 mg 05/07/23 15:43 05/07/23 16:10 Morphine Sulfate 4 Mg/Ml Cartridge IM 05/07/23 15:44 4 mg ONCE ONE Administration Protocol Discharge Plan Discharge Clinical Impression: Abdominal pain Patient Disposition: Home, Self-Care Instructions: Abdominal Pain (ED) Prescriptions: New fkgbbrwrz-uycgcl-qenhmztt-scop [] 16.2-0.1037 -0.0194 mg tablet 1 tab PO BID PRN (Reason: abdominal pain) Qty: 10 0RF No Action metronidazole [Flagyl] 500 mg tablet 500 mg PO Q12H Qty: 14 0RF ciprofloxacin HCl 250 mg tablet 250 mg PO Q12H Qty: 14 0RF ondansetron HCl [Zofran] 4 mg tablet 4 mg PO Q8H PRN (Reason: nausea and vomiting) Qty: 10 0RF ondansetron 4 mg tablet,disintegrating 4 mg PO ONCE PRN (Reason: nausea and vomiting) Qty: 10 0RF amoxicillin 500 mg capsule 1,000 mg PO BID 5 Days Qty: 20 0RF azithromycin [Zithromax Z-Tye] 250 mg tablet See Rx Instructions .ROUTE .COMPLEX Qty: 6 0RF Rx Instructions: take 500 mg today (day 1), then 250 mg for 4 days (days 2-5) morphine 15 mg tablet 15 mg PO Q4-6H PRN (Reason: pain) Qty: 14 0RF Rx Instructions: Patient may request partial fill; Partial Fill upon patient request. hydrocortisone [Procto-Med HC] 2.5 % cream with perineal applicator 1 appl SC DAILY Qty: 30 0RF ibuprofen 600 mg tablet 600 mg PO Q8H PRN (Reason: pain) Qty: 15 0RF hydromorphone [Dilaudid] 2 mg tablet 2 mg PO Q8H PRN (Reason: pain) Qty: 10 0RF benzonatate 100 mg capsule 100 mg PO TID PRN (Reason: cough) Qty: 14 0RF morphine 15 mg tablet 15 mg PO TID PRN (Reason: pain) Qty: 10 0RF Rx Instructions: partial fill okay; Partial Fill upon patient request. ondansetron 4 mg tablet,disintegrating 4 mg PO Q8H PRN (Reason: nausea and vomiting) Qty: 20 0RF dabigatran etexilate 75 mg capsule 75 mg PO BID Referrals: Thomas Kam PA [Primary Care Provider] - 10 days Print Language: Georgian
[2023-05-07 16:09] VITALS: BP 115/76; PULSE 69; RESP 16; TEMP 36.7; O2SAT 97
[2023-05-07] MEDS: Morphine Sulfate 4 MG/ML CARTRIDGE IM (16:10)
--- NOTE | 2023-05-07 16:13 | PC.NURSE ---
alert and oriented, respirations even and unlabored. resting quietly in room watching tv. medicated per the MAR for pain, call arnold within reach. awaiting ultrasound
[2023-05-07 18:47] VITALS: BP 118/76; PULSE 69; RESP 16; TEMP 36.7; O2SAT 97
== END 2023-05-07 20:29 | disposition home or self-care (01) ==
PROVIDERS: Emergency Provider Emergency Medicine; PCP Physician Assistant
DX: R10.30 Lower abdominal pain, unspecified (principal); M79.605 Pain in left leg; R60.0 Localized edema; R06.02 Shortness of breath; R94.31 Abnormal electrocardiogram [ECG] [EKG]; Z79.899 Other long term (current) drug therapy; Z86.718 Personal history of other venous thrombosis and embolism; Z87.891 Personal history of nicotine dependence
CPT/HCPCS: 36415; 76700; 80053; 84484; 85025; 85610; 85730; 93005; 93971; 96372; 99284; 99285; J2270

== ENCOUNTER 2023-05-21 11:25 | Emergency (ER) | payer MEDICARE, MEDICAID, SELFPAY ==
--- NOTE | ~2023-05-21 | CT_ITS ---
EXAMINATION: CT ANGIOGRAPHY LEGS WITH RUNOFF STUDY PERFORMED: CTA ABDOMEN, PELVIS AND LOWER EXTREMITY RUNOFF WITH CONTRAST HISTORY: Pain in popliteal fossa and calf DESCRIPTION: Routine abdominal aorta and lower extremity runoff CTA protocol with contrast was performed. 100 mL of Omnipaque 350 was administered. 3D POSTPROCESSING: Multiple 3-D angiographic images were processed from the initial data set by the [facility] under concurrent physician supervision. This CT examination was performed using dose optimization techniques as appropriate, variously including the following: *Automated exposure control *Adjustment of mA and/or kV according to patient size (this includes techniques or standardized protocols for targeted exams where dose is matched to indication/reason for exam; i.e. extremities or head) *Use of iterative reconstruction technique DLP: 458 mGycm. COMPARISON: CT angiogram abdomen and pelvis 04/06/2023 FINDINGS: VASCULAR: ABDOMINAL AORTA: The visualized descending thoracic aorta appears normal. The suprarenal aorta portable. Patient is status post an aorto by iliac stent graft. Maximal aortic size is only about 3.9 cm. RIGHT LOWER EXTREMITY: - Common Iliac Artery: Stented and widely patent. - Internal Iliac Artery: Widely patent. - External Iliac Artery: Normal. - Common Femoral Artery: Normal. - Profunda Femoral Artery: Normal. - Superficial Femoral Artery: Normal proximally, occluded distally. There is a distal SFA to posterior tibial bypass graft which is patent. - Popliteal Artery: Occluded. - Tibioperoneal Trunk: Not patent - Posterior Tibial Artery: Patent distally but poorly opacified. - Peroneal Artery: Nonopacified. - Anterior Tibial Artery: Nonopacified. LEFT LOWER EXTREMITY: - Common Iliac Artery: Stented and widely patent. - Internal Iliac Artery: Normal. - External Iliac Artery: Normal. - Common Femoral Artery: Normal. - Profunda Femoral Artery: Normal. - Superficial Femoral Artery: Normal. - Popliteal Artery: Normal. - Tibioperoneal Trunk: Normal - Posterior Tibial Artery: Normal. - Peroneal Artery: Normal. - Anterior Tibial Artery: Normal. CELIOMESENTERIC ARTERIES: The celiac is widely patent. There is a separate origin to the left gastric artery. There is stenosis at the origin of the SMA. The RAMANA is occluded. RENAL ARTERIES: Single renal arteries are present bilaterally which are patent.. NONVASCULAR: Lung Bases: The visualized lung bases are unremarkable. Basilar atelectasis is present. Calcified granuloma present at the right lung base Liver, Gallbladder and Biliary Tree: The liver is enlarged at 20 cm and demonstrates decreased attenuation suggesting hepatic steatosis. No focal hepatic lesion or biliary ductal dilatation is present. Status post cholecystectomy. Pancreas: Unremarkable. Spleen: Mild splenic enlargement at 12.5 cm. Splenic granulomas are present. Adrenal Glands: Unremarkable. Kidneys and Ureters: The kidneys are normal in size, shape, and attenuation with the exception of a cortical scar at the lower pole the right kidney. In the past, this has been called a angiomyolipoma but, in either event, this is a benign non worrisome finding.. No hydronephrosis, hydroureter, or calculi seen. No perinephric stranding. Bladder: Unremarkable. Gastrointestinal Tract: The small and large bowel are unremarkable. The appendix is not seen. Abdominal Wall: No significant hernia is appreciated. Lymph Nodes: No retroperitoneal lymphadenopathy. Pelvic Viscera: Mild BPH. Osseous Structures: Unremarkable. CT/CT angio abd aorta runoff IMPRESSION: 1. Aortobiiliac stent graft in place without evidence of endoleak. 2. On the right, there is a distal SFA to posterior tibial bypass graft which is patent with an occluded popliteal and only the posterior tibial artery which is opacified. 3. On the left, there is a widely patent three-vessel runoff. 4. Incidental note made of an enlarged fatty liver with mild splenomegaly. 5. Mild BPH with other findings described above.
--- NOTE | ~2023-05-21 | US_ITS ---
EXAMINATION: US VENOUS ULTRASOUND WITH DOPPLER LOWER EXTREMITY, BILATERAL CLINICAL INFORMATION: Bilateral leg pain COMPARISON: Previous exam, on the left 05/07/2023 and on the right September 2022 TECHNIQUE: Ultrasound of the deep veins is performed from the hip to the calf with compression sonography and color and pulse Doppler assessment. Spectral analysis with color-flow imaging is performed. FINDINGS: RIGHT: There is normal venous compression and respiratory variation and augmented flow. The visualized common femoral vein, superficial femoral vein, profunda femoral vein, popliteal vein, and the trifurcation region shows no evidence of deep venous thrombosis. Right femoral posterior tibial artery bypass graft is patent. There is a thrombosed popliteal artery aneurysm measuring 2.7 x 2.6 x 2.2 cm. Measurements are slightly increased from 2.4 x 2.2 x 2.4 cm on 10/08/2022 exam. There is no significant popliteal fossa cyst. LEFT: The left common femoral, profunda, popliteal, posterior tibial and peroneal veins are patent There are chronic changes of DVT seen in the mid superficial femoral vein with wall thickening similar to previous exams. No evidence of acute disease seen. No popliteal fossa cyst US/US venous duplex LE BI IMPRESSION: No acute DVT demonstrated in the bilateral lower extremity. 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 Thrombosed right popliteal artery aneurysm.
--- NOTE | 2023-05-21 11:56 | ED.GENADULT ---
HPI - General Adult General Chief complaint: Abdominal Pain Stated complaint: lower abd pain Time Seen by Provider: 05/21/23 12:03 Source: patient, RN notes reviewed and old records reviewed Mode of arrival: ambulatory History of Present Illness HPI narrative: 47-year-old male with history of HIV, seizures, diabetes, AAA status post repair in '16 in [place], DVT on Fondaparinus, presenting to the ED complaining of lower abdominal /bilateral groin pain radiating down bilateral lower extremities worsening over the past 4 days. Partner reports fall yesterday due to lower extremity pain, denies head trauma or LOC. denies neck/back pain, CP/ SOB, nausea/ vomiting, dysuria / hematuria, testicular/ scrotal pain or discharge. Of note patient was evaluated in our ED on 05/07 for similar symptoms had negative ultrasound and was discharged. Onset (ago): day(s) Related Data Home Medications Medication Instructions Recorded Confirmed dabigatran etexilate 75 mg capsule 75 mg PO BID 06/13/21 07/14/21 Previous Rx's Medication Instructions Recorded ciprofloxacin HCl 250 mg tablet 250 mg PO Q12H #14 tabs 08/16/20 metronidazole 500 mg tablet 500 mg PO Q12H #14 tabs 08/16/20 (Flagyl) ondansetron HCl 4 mg tablet 4 mg PO Q8H PRN nausea and 08/16/20 (Zofran) vomiting #10 tabs hydrocortisone 2.5 % topical cream 1 appl [place] DAILY #30 grams 05/26/21 with perineal applicator (Procto-Med HC) ibuprofen 600 mg tablet 600 mg PO Q8H PRN pain #15 tabs 05/26/21 hydromorphone 2 mg tablet 2 mg PO Q8H PRN pain #10 tabs 06/22/21 (Dilaudid) ondansetron 4 mg disintegrating 4 mg PO ONCE PRN nausea and 01/26/22 tablet vomiting #10 tabs amoxicillin 500 mg capsule 1,000 mg (2 x 500 mg) PO BID 5 10/08/22 days #20 caps azithromycin 250 mg tablet See Rx Instructions PO .COMPLEX #6 10/08/22 (Zithromax Z-Tye) tabs morphine 15 mg immediate release 15 mg PO Q4-6H PRN pain #14 tabs 10/08/22 tablet benzonatate 100 mg capsule 100 mg PO TID PRN cough #14 caps 10/26/22 morphine 15 mg immediate release 15 mg PO TID PRN pain #10 tabs 04/06/23 tablet ondansetron 4 mg disintegrating 4 mg PO Q8H PRN nausea and 04/06/23 tablet vomiting #20 tabs wcetxaejz-hgieipkfl-xliqzusi-scop 1 tab PO BID PRN abdominal pain 05/07/23 16.2 mg-0.1037 mg-0.0194 mg tablet #10 tabs () Allergies Allergy/AdvReac Type Severity Reaction Status Date / Time influenza virus vaccine, Allergy Severe GUILLIAN Verified 04/06/23 15:45 specific BARRE HX. [FLU VACCINE] tramadol [TRAMADOL] Allergy Severe SEIZURES Verified 04/06/23 15:45 acetaminophen [From PERCOCET] Allergy Intermediate ITCHING Verified 04/06/23 15:45 carbamazepine [From TEGRETOL] Allergy Intermediate HALLUCINATI Verified 04/06/23 15:45 ONS lamotrigine [From LAMICTAL] Allergy Intermediate ITCHING Verified 04/06/23 15:45 metoclopramide [From REGLAN] Allergy Intermediate ITCHY Verified 04/06/23 15:45 oxycodone [From PERCOCET] Allergy Intermediate ITCHING Verified 04/06/23 15:45 SEAFOOD Allergy Severe ANAPHYLAXIS Uncoded 04/06/23 15:45 Review of Systems Review of Systems: Constitutional: No Fever, No Chills, No Fatigue, No Malaise ENT/Mouth: No Hearing loss, No Ear Pain, No sore throat, No Rhinorrhea, No Swallowing Difficulty Eyes: No Eye Pain, No Swelling, No Redness Cardiovascular: No Chest Pain, No SOB, No Edema, No Palpitations Respiratory: No Cough, No Sputum, No Dyspnea Gastrointestinal: No Nausea, No Vomiting, No Diarrhea, No Constipation, +Abdominal pain Genitourinary: No Dysuria, No Urinary Frequency, No Hematuria Musculoskeletal: No joint pain, No Myalgias, No Joint Swelling Skin: No Skin Lesions, No rash Neuro: No Weakness, No Numbness, No Paresthesias Yes all other systems are reviewed and are negative Constitutional: Constitutional: Reports as per [facility] Past Medical History Attestation statement: The following information was validated with the patient. Source: old records reviewed Medical History Left sided abdominal pain COVID-19 DVT (deep venous thrombosis) Diabetes Seizure disorder HIV (human immunodeficiency virus infection) Surgical History Status post cholecystectomy Status post laparoscopic appendectomy H/O fasciotomy S/P AAA (abdominal aortic aneurysm) repair S/P IVC filter Social History Social History Alcohol intake: never Patient Tobacco Use Status: Former Tobacco user Advance Directives: No Advance Directives Information Provided: Yes Physical Exam ED Vital Signs: Vital Signs - 24 hr 05/21/23 12:01 05/21/23 16:19 Temperature 98.7 F Pulse Rate 101 H 73 Respiratory Rate 16 18 Blood Pressure 109/86 100/70 Pulse Oximetry 98 97 Oxygen Delivery Method Room Air Room Air BMI result Body Mass Index 29.1 Const General: cooperative, healthy appearing and no acute distress Orientation/consciousness: patient oriented x3 Limitations: no limitations HENMT Head: Yes normal to inspection and Yes atraumatic Ears: hearing grossly normal bilaterally General nose exam: Normal external nose present Face and sinus: Yes normal facial exam Eyes General: appearance normal, both eyes and all related structures EOM: EOMs intact bilaterally Neck Neck: Yes normal visual inspection and Yes no meningeal signs Resp Effort & Inspection: normal respiratory effort and no respiratory distress Auscultation: clear to auscultation bilaterally Cardio Rate: regular rate Heart sounds: S1 normal heart sound present and S2 normal heart sound present GI Other: + Bilateral groin ttp. no erythema/ warmth or crepitus Inspection: Yes normal to inspection Palpation (GI): Soft to palpation, Tenderness to palpation present (GI) suprapubicly, no guarding, not rigid and no hernias Other: Full exam deferred General: Yes no CVA tenderness Back/Spine/Pelvis Back: no CVA tenderness Skin Rashes: no rashes Wounds: no wounds Neuro General: patient oriented x3, tone normal and no meningeal signs Cranial nerves: Yes CN's II-XII intact bilaterally Gait exam (Neuro): Normal gait present Extrem Other: + bilateral lower extremity nonfocal tenderness. No erythema/ warmth or pitting edema. Neurovascular intact distally. No crepitus. Old surgical scars noted. General: Yes normal to inspection Course Course Course Narrative: RME performed by Elaine Guerrero PA-C. Patient is a 47 year old assigned male at presenting to the emergency department with abdominal and groin pain. Patient has a history of a AAA repair from 2016 and is now having pain in his lower abdomen that radiates into his groin. Labs ordered. Patient placed back in the waiting room pending room availability and results. -1457-- chronic leukopenia. Potassium elevated at 5.6 with marked hemolysis, will repeat. troponin negative -1618-- repeat non hemolyzed potassium WNL US venous duplex LE BI IMPRESSION: No acute DVT demonstrated in the bilateral lower extremity. 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 Thrombosed right popliteal artery aneurysm. -1630-- ED care transferred to [facility] pending CT angio and dispo per results Reevaluation(s) Reevaluation #1: Patient received in sign-out pending CTA runoff. CT does not show any concerning abnormalities. Previous graft in place without endoleak and previous SFA to posterior tibial bypass graft patent Time: 17:48 Medications Administered Discontinued Medications Generic Name Dose Route Start Last Admin Trade Name Freq PRN Reason Stop Dose Admin Iohexol 100 ml 05/21/23 15:22 05/21/23 15:22 Iohexol 350 Mg/Ml 100 Ml Infus..Btl IV 05/21/23 15:23 100 ml ONCE ONE Administration Morphine Sulfate 2 mg 05/21/23 14:02 05/21/23 14:10 Morphine Sulfate 2 Mg/Ml Cartridge IVPUSH 05/21/23 14:03 2 mg ONCE ONE Administration Protocol Morphine Sulfate 2 mg 05/21/23 16:23 05/21/23 16:39 Morphine Sulfate 2 Mg/Ml Cartridge IVPUSH 05/21/23 16:24 2 mg ONCE ONE Administration Protocol Medical Decision Making Medical Decision Making [facility] Narrative: 47-year-old male with history of HIV, seizures, diabetes, AAA status post repair in '16 in [place], DVT on Fondaparinus, presenting to the ED complaining of lower abdominal /bilateral groin pain radiating down bilateral lower extremities worsening over the past 4 days. On exam tachycardic to 101 likely from pain, lungs CTA, abdomen soft with lower/ suprapubic & bilateral groin tenderness. Bilateral LE diffuse tenderness noted. No erythema/ warmth. Lower extremities neurovascularly intact. Concern for intra-abdominal pathology including diverticulitis vs endovascular leak/pseudoaneurysm vs PAD or DVT. no evidence of cellulitis. Low suspicion for necrotizing fasciitis, ACS, dissection, testicular torsion, renal stone or pyelo plan: Labs, UA, venous duplex ultrasound, CT angio abdomen aorta with runoff, pain control Please refer to course for remaining clinical decision making, interpretation of labs/imaging results, and discussions with consultants and/or family members. Differential Diagnosis Differential Diagnoses: The differential diagnosis associated with the presentation includes As above Admission/Observation Consideration of admission/observation: Escalation of care including admission/observation considered Lab Data MDM Lab Attestation statement: I reviewed the patient's lab results. 05/21/23 12:00 05/21/23 15:31 Labs: Lab Results 05/21/23 05/21/23 05/21/23 Range/Units 12:00 12:15 13:54 WBC 3.8 L (4.8-10.8) X10*3/uL RBC 4.97 (4.60-5.80) X10*6/uL Hgb 14.7 (14.0-18.0) g/dl Hct 45.1 (42.0-52.0) % MCV 90.7 (80.0-98.0) fL MCH 29.6 (27.0-33.0) pg MCHC 32.6 (31.0-36.0) g/dl RDW 14.4 (11.0-16.0) % Plt Count 140 L (160-400) X10*3/uL MPV 11.0 (9.4-12.4) fL Immature Gran % (Auto) 0.3 (0.0-0.4) % Neut % (Auto) 43.8 L (45-73) % Lymph % (Auto) 46.2 H (20-40) % Putnam % (Auto) 8.4 (2-11) % Eos % (Auto) 0.5 (0-4) % Baso % (Auto) 0.8 (0-2) % Lymph # (Auto) 1.8 (1.2-4.9) X10*3/uL Putnam # (Auto) 0.3 (0.1-1.2) X10*3/uL Eos # (Auto) 0.0 (0.0-0.4) X10*3/uL Baso # (Auto) 0.0 (0.0-0.2) X10*3/uL Abs Immat Gran (auto) 0.01 (0.00-0.03) X10*3/uL Absolute Neuts (auto) 1.7 L (2.0-8.3) x10*3/uL Absolute Nucleated RBC 0.000 (0.0-0.012) X10*3/uL Nucleated RBC % (auto) 0.0 (0.0-0.2) /100WBC Smear Tech's Comments VERIFIED PT 12.5 (11.1-13.3) SEC INR 1.0 (0.9-1.1) APTT 32.1 (26.0-36.4) SEC Sodium 133 L (135-145) mmol/L Potassium 5.6 H D (3.3-5.1) mmol/L Chloride 106 (96-108) mmol/L Carbon Dioxide 19 L (22-29) mmol/L Anion Gap 14 (12-20) BUN 9 (9-16) mg/dL Creatinine 1.16 (0.5-1.4) mg/dL Estim Creat Clear Calc 85.1 Estimated GFR > 60 Random Glucose 202 H (60-115) mg/dL Calcium 9.3 (8.4-10.2) mg/dL Magnesium 2.2 (1.6-2.6) mg/dL Total Bilirubin 0.3 (0.0-1.0) mg/dL AST 46 H (5-37) U/L ALT 34 (0-40) U/L Alkaline Phosphatase 147 H (39-117) U/L Troponin I High Sens < 2.7 (<3.5-35.0) ng/L Total Protein 10.3 H (6.5-8.0) g/dL Albumin 4.3 (3.5-5.0) g/dL Lipase 8 (8-78) U/L Hold Green Top See Note 05/21/23 Range/Units 15:31 WBC (4.8-10.8) X10*3/uL RBC (4.60-5.80) X10*6/uL Hgb (14.0-18.0) g/dl Hct (42.0-52.0) % MCV (80.0-98.0) fL MCH (27.0-33.0) pg MCHC (31.0-36.0) g/dl RDW (11.0-16.0) % Plt Count (160-400) X10*3/uL MPV (9.4-12.4) fL Immature Gran % (Auto) (0.0-0.4) % Neut % (Auto) (45-73) % Lymph % (Auto) (20-40) % Putnam % (Auto) (2-11) % Eos % (Auto) (0-4) % Baso % (Auto) (0-2) % Lymph # (Auto) (1.2-4.9) X10*3/uL Putnam # (Auto) (0.1-1.2) X10*3/uL Eos # (Auto) (0.0-0.4) X10*3/uL Baso # (Auto) (0.0-0.2) X10*3/uL Abs Immat Gran (auto) (0.00-0.03) X10*3/uL Absolute Neuts (auto) (2.0-8.3) x10*3/uL Absolute Nucleated RBC (0.0-0.012) X10*3/uL Nucleated RBC % (auto) (0.0-0.2) /100WBC Smear Tech's Comments PT (11.1-13.3) SEC INR (0.9-1.1) APTT (26.0-36.4) SEC Sodium 134 L (135-145) mmol/L Potassium 4.1 D (3.3-5.1) mmol/L Chloride 106 (96-108) mmol/L Carbon Dioxide 22 (22-29) mmol/L Anion Gap 10 L (12-20) BUN 8 L (9-16) mg/dL Creatinine 0.97 (0.5-1.4) mg/dL Estim Creat Clear Calc 101.8 Estimated GFR > 60 Random Glucose 153 H (60-115) mg/dL Calcium 8.7 D (8.4-10.2) mg/dL Magnesium (1.6-2.6) mg/dL Total Bilirubin (0.0-1.0) mg/dL AST (5-37) U/L ALT (0-40) U/L Alkaline Phosphatase (39-117) U/L Troponin I High Sens (<3.5-35.0) ng/L Total Protein (6.5-8.0) g/dL Albumin (3.5-5.0) g/dL Lipase (8-78) U/L Hold Green Top Radiology Impression Discussion of test interpretation with radiology: I have reviewed the radiologist's reading. Independent Historian Clinical information obtained from an independent historian. History obtained from or confirmed by: Spouse External Record Review External record reviewed: Inpatient record, Office record, Outpatient record, Prior outpatient labs, Prior outpatient radiology, Primary care record and Outside ED record Tests considered The following testing was considered but not selected: As above Prescription Management I considered prescription management with: Pain Medication Chronic Conditions Patient?s care impacted by: Other Discharge Plan Discharge Clinical Impression: Abdominal pain, lower, Lower extremity pain Patient Disposition: Home, Self-Care Instructions: Abdominal Pain (ED), Leg Pain (ED) Additional Instructions: Your workup in the emergency department today was reassuring. Is no issues with your previous AAA repair. Blood flow to your lower extremities flowing well Follow-up with her outpatient providers. May use Tylenol for pain Prescriptions: No Action metronidazole [Flagyl] 500 mg tablet 500 mg PO Q12H Qty: 14 0RF ciprofloxacin HCl 250 mg tablet 250 mg PO Q12H Qty: 14 0RF ondansetron HCl [Zofran] 4 mg tablet 4 mg PO Q8H PRN (Reason: nausea and vomiting) Qty: 10 0RF ondansetron 4 mg tablet,disintegrating 4 mg PO ONCE PRN (Reason: nausea and vomiting) Qty: 10 0RF amoxicillin 500 mg capsule 1,000 mg PO BID 5 Days Qty: 20 0RF azithromycin [Zithromax Z-Tye] 250 mg tablet See Rx Instructions .ROUTE .COMPLEX Qty: 6 0RF Rx Instructions: take 500 mg today (day 1), then 250 mg for 4 days (days 2-5) morphine 15 mg tablet 15 mg PO Q4-6H PRN (Reason: pain) Qty: 14 0RF Rx Instructions: Patient may request partial fill; Partial Fill upon patient request. hydrocortisone [Procto-Med HC] 2.5 % cream with perineal applicator 1 appl LA DAILY Qty: 30 0RF ibuprofen 600 mg tablet 600 mg PO Q8H PRN (Reason: pain) Qty: 15 0RF hydromorphone [Dilaudid] 2 mg tablet 2 mg PO Q8H PRN (Reason: pain) Qty: 10 0RF benzonatate 100 mg capsule 100 mg PO TID PRN (Reason: cough) Qty: 14 0RF morphine 15 mg tablet 15 mg PO TID PRN (Reason: pain) Qty: 10 0RF Rx Instructions: partial fill okay; Partial Fill upon patient request. ondansetron 4 mg tablet,disintegrating 4 mg PO Q8H PRN (Reason: nausea and vomiting) Qty: 20 0RF dhdvyizno-lxteux-jjxbioxp-scop [] 16.2-0.1037 -0.0194 mg tablet 1 tab PO BID PRN (Reason: abdominal pain) Qty: 10 0RF dabigatran etexilate 75 mg capsule 75 mg PO BID
[2023-05-21 12:01] VITALS: BP 109/86; PULSE 101; RESP 16; TEMP 37.1; O2SAT 98; BMI 29.1
[2023-05-21 12:42] LABS: Basophils Percent Auto 0.8 % (0-2); Eosinophils Percent Auto 0.5 % (0-4); Hematocrit 45.1 % (42.0-52.0); Hemoglobin 14.7 g/dl (14.0-18.0); Imm Gran Abs Auto 0.01 X10*3/uL (0.00-0.03); Imm Gran Pct Auto 0.3 % (0.0-0.4); Lymphocytes Absolute Auto 1.8 X10*3/uL (1.2-4.9); Lymphocytes Percent Auto 46.2 % (20-40); MANUAL DIFF FLAG SCAN; Mean Corpuscular HGB Conc 32.6 g/dl (31.0-36.0); Mean Corpuscular Hemoglobin 29.6 pg (27.0-33.0); Mean Corpuscular Volume 90.7 fL (80.0-98.0); Monocytes Absolute Auto 0.3 X10*3/uL (0.1-1.2); Monocytes Percent Auto 8.4 % (2-11); Neutrophils Absolute Auto 1.7 x10*3/uL (2.0-8.3); Neutrophils Percent Auto 43.8 % (45-73); PLT CLUMP 1; Red Blood Count 4.97 X10*6/uL (4.60-5.80); Red Cell Distribution Width 14.4 % (11.0-16.0); SCAN SMEAR FLAG 1
[2023-05-21 13:00] LABS: White Blood Count 3.8 X10*3/uL (4.8-10.8)
[2023-05-21 13:06] LABS: Platelet Count 140 X10*3/uL (160-400)
[2023-05-21 13:07] LABS: SLIDE REVIEW VERIFIED
[2023-05-21 13:11] LABS: Alanine Aminotransferase 34 U/L (0-40); Albumin Level 4.3 g/dL (3.5-5.0); Alkaline Phosphatase 147 U/L (39-117); Anion Gap 14 (12-20); Aspartate Amino Transferase 46 U/L (5-37); Bilirubin Total 0.3 mg/dL (0.0-1.0); Blood Urea Nitrogen 9 mg/dL (9-16); Calcium 9.3 mg/dL (8.4-10.2); Carbon Dioxide 19 mmol/L (22-29); Chloride 106 mmol/L (96-108); Creatinine Clr Calc Pharmacy 85.1; Estimated Glomerular Filt Rate > 60; Glucose Random 202 mg/dL (60-115); Magnesium 2.2 mg/dL (1.6-2.6); Potassium 5.6 mmol/L (3.3-5.1); Sodium 133 mmol/L (135-145); Total Protein 10.3 g/dL (6.5-8.0)
[2023-05-21 13:46] LABS: Lipase 8 U/L (8-78)
[2023-05-21 14:06] LABS: Prothrombin Time 12.5 SEC (11.1-13.3)
[2023-05-21 14:08] LABS: Partial Thromboplastin Time 32.1 SEC (26.0-36.4)
[2023-05-21] MEDS: Morphine Sulfate 2 MG/ML CARTRIDGE IVPUSH ×2 (14:10→16:39)
[2023-05-21 14:23] LABS: Troponin-I High Sensitivity < 2.7 ng/L (<3.5-35.0)
[2023-05-21] MEDS: iohexoL 350 MG/ML 100 ML INFUS..BTL IV (15:22)
[2023-05-21 15:52] LABS: Anion Gap 10 (12-20); Blood Urea Nitrogen 8 mg/dL (9-16); Calcium 8.7 mg/dL (8.4-10.2); Carbon Dioxide 22 mmol/L (22-29); Chloride 106 mmol/L (96-108); Creatinine Clr Calc Pharmacy 101.8; Estimated Glomerular Filt Rate > 60; Glucose Random 153 mg/dL (60-115); Potassium 4.1 mmol/L (3.3-5.1); Sodium 134 mmol/L (135-145)
[2023-05-21 16:19] VITALS: BP 100/70; PULSE 73; RESP 18; O2SAT 97
== END 2023-05-21 18:09 | disposition home or self-care (01) ==
PROVIDERS: Physician Assistant; Physician Assistant Medical; Emergency Provider Emergency Medicine; PCP Physician Assistant
DX: R10.30 Lower abdominal pain, unspecified (principal); M79.605 Pain in left leg; M79.604 Pain in right leg; B20 Human immunodeficiency virus [HIV] disease; E11.9 Type 2 diabetes mellitus without complications; Z90.49 Acquired absence of other specified parts of digestive tract; Z87.891 Personal history of nicotine dependence; Z86.718 Personal history of other venous thrombosis and embolism; Z79.899 Other long term (current) drug therapy
CPT/HCPCS: 36415; 75635; 80048; 80053; 83690; 83735; 84484; 85025; 85610; 85730; 93970; 96374; 96375; 99284; J2270; Q9967

== ENCOUNTER 2023-07-22 16:20 | Emergency (ER) | payer MEDICARE, MEDICAID, SELFPAY ==
[2023-07-22 16:37] VITALS: BP 122/73; PULSE 87; RESP 16; TEMP 37.2; O2SAT 97; BMI 27.2
[2023-07-22 18:14] LABS: MANUAL DIFF FLAG NO
[2023-07-22 18:19] LABS: Basophils Percent Auto 0.9 % (0-2); Eosinophils Percent Auto 0.2 % (0-4); Hematocrit 40.1 % (42.0-52.0); Imm Gran Abs Auto 0.01 X10*3/uL (0.00-0.03); Imm Gran Pct Auto 0.2 % (0.0-0.4); Lymphocytes Absolute Auto 2.1 X10*3/uL (1.2-4.9); Lymphocytes Percent Auto 48.3 % (20-40); Mean Corpuscular HGB Conc 32.4 g/dl (31.0-36.0); Mean Corpuscular Volume 89.5 fL (80.0-98.0); Mean Platelet Volume 9.7 fL (9.4-12.4); Monocytes Absolute Auto 0.5 X10*3/uL (0.1-1.2); Monocytes Percent Auto 11.3 % (2-11); Neutrophils Absolute Auto 1.7 x10*3/uL (2.0-8.3); Neutrophils Percent Auto 39.1 % (45-73); Platelet Count 171 X10*3/uL (160-400); Red Blood Count 4.48 X10*6/uL (4.60-5.80); Red Cell Distribution Width 14.2 % (11.0-16.0); White Blood Count 4.4 X10*3/uL (4.8-10.8)
[2023-07-22 18:34] LABS: Alanine Aminotransferase 28 U/L (0-40); Albumin Level 3.9 g/dL (3.5-5.0); Alkaline Phosphatase 130 U/L (39-117); Anion Gap 9 (12-20); Aspartate Amino Transferase 25 U/L (5-37); Bilirubin Direct 0.2 mg/dL (0.0-0.5); Bilirubin Total 0.3 mg/dL (0.0-1.0); Blood Urea Nitrogen 10 mg/dL (9-16); Calcium 9.1 mg/dL (8.4-10.2); Carbon Dioxide 23 mmol/L (22-29); Chloride 109 mmol/L (96-108); Creatinine Clr Calc Pharmacy 81.2; Estimated Glomerular Filt Rate > 60; Glucose Random 193 mg/dL (60-115); Lipase 11 U/L (8-78); Potassium 4.2 mmol/L (3.3-5.1); Sodium 137 mmol/L (135-145); Total Protein 8.6 g/dL (6.5-8.0)
== END 2023-07-22 22:22 | disposition left against medical advice (07) ==
PROVIDERS: Emergency Provider Emergency Medicine; PCP Physician Assistant
DX: R10.9 Unspecified abdominal pain (principal); Z79.899 Other long term (current) drug therapy
CPT/HCPCS: 36415; 80053; 82248; 83690; 85025; 99282; 99283

== ENCOUNTER 2023-07-23 14:41 | Emergency (ER) | payer MEDICARE, MEDICAID, SELFPAY ==
[2023-07-23 15:00] VITALS: BP 114/78; PULSE 120; RESP 18; TEMP 38.1; O2SAT 97; BMI 28.8
--- NOTE | 2023-07-23 15:00 | ED.ABDPAIN ---
HPI - Abdominal Pain General Chief Complaint: Fever Stated Complaint: Fever/Black diarrhea Related Data Home Medications Medication Instructions Recorded Confirmed dabigatran etexilate 75 mg capsule 75 mg PO BID 06/13/21 07/14/21 Previous Rx's Medication Instructions Recorded ciprofloxacin HCl 250 mg tablet 250 mg PO Q12H #14 tabs 08/16/20 metronidazole 500 mg tablet 500 mg PO Q12H #14 tabs 08/16/20 (Flagyl) ondansetron HCl 4 mg tablet 4 mg PO Q8H PRN nausea and 08/16/20 (Zofran) vomiting #10 tabs hydrocortisone 2.5 % topical cream 1 appl [place] DAILY #30 grams 05/26/21 with perineal applicator (Procto-Med HC) ibuprofen 600 mg tablet 600 mg PO Q8H PRN pain #15 tabs 05/26/21 hydromorphone 2 mg tablet 2 mg PO Q8H PRN pain #10 tabs 06/22/21 (Dilaudid) ondansetron 4 mg disintegrating 4 mg PO ONCE PRN nausea and 01/26/22 tablet vomiting #10 tabs amoxicillin 500 mg capsule 1,000 mg (2 x 500 mg) PO BID 5 10/08/22 days #20 caps azithromycin 250 mg tablet See Rx Instructions PO .COMPLEX #6 10/08/22 (Zithromax Z-Tye) tabs morphine 15 mg immediate release 15 mg PO Q4-6H PRN pain #14 tabs 10/08/22 tablet benzonatate 100 mg capsule 100 mg PO TID PRN cough #14 caps 10/26/22 morphine 15 mg immediate release 15 mg PO TID PRN pain #10 tabs 04/06/23 tablet ondansetron 4 mg disintegrating 4 mg PO Q8H PRN nausea and 04/06/23 tablet vomiting #20 tabs hkiznwqim-kukbampyr-sxzdthmj-scop 1 tab PO BID PRN abdominal pain 05/07/23 16.2 mg-0.1037 mg-0.0194 mg tablet #10 tabs () Allergies Allergy/AdvReac Type Severity Reaction Status Date / Time influenza virus vaccine, Allergy Severe GUILLIAN Verified 07/22/23 16:37 specific BARRE HX. [FLU VACCINE] tramadol [TRAMADOL] Allergy Severe SEIZURES Verified 07/22/23 16:37 acetaminophen [From PERCOCET] Allergy Intermediate ITCHING Verified 07/22/23 16:37 carbamazepine [From TEGRETOL] Allergy Intermediate HALLUCINATI Verified 07/22/23 16:37 ONS lamotrigine [From LAMICTAL] Allergy Intermediate ITCHING Verified 07/22/23 16:37 metoclopramide [From REGLAN] Allergy Intermediate ITCHY Verified 07/22/23 16:37 oxycodone [From PERCOCET] Allergy Intermediate ITCHING Verified 07/22/23 16:37 SEAFOOD Allergy Severe ANAPHYLAXIS Uncoded 07/22/23 16:37 [facility] Past Medical History Medical History Left sided abdominal pain COVID-19 DVT (deep venous thrombosis) Diabetes Seizure disorder HIV (human immunodeficiency virus infection) Surgical History Status post cholecystectomy Status post laparoscopic appendectomy H/O fasciotomy S/P AAA (abdominal aortic aneurysm) repair S/P IVC filter Social History Social History Alcohol intake: never Patient Tobacco Use Status: Former Tobacco user Advance Directives: No Advance Directives Information Provided: No Physical Exam ED Vital Signs: BMI result Body Mass Index 28.8 Course Course Course Narrative: This is a rapid medical exam. Deferred additional HPI, ROS, PE to primary provider. 47-year-old male with history of HIV, seizures, diabetes, AAA status post repair in 16 in [place], DVT on Fondaparinus here with complaints of abdominal pain, fever, vomiting x 5 days. Also c/o black diarrhea (began today, more then five episodes). Will obtain labs, UA, viral testing VSS Discharge Plan Discharge Clinical Impression: Fever of unknown origin Patient Disposition: Left W/O Completing Treatment Prescriptions: No Action metronidazole [Flagyl] 500 mg tablet 500 mg PO Q12H Qty: 14 0RF ciprofloxacin HCl 250 mg tablet 250 mg PO Q12H Qty: 14 0RF ondansetron HCl [Zofran] 4 mg tablet 4 mg PO Q8H PRN (Reason: nausea and vomiting) Qty: 10 0RF ondansetron 4 mg tablet,disintegrating 4 mg PO ONCE PRN (Reason: nausea and vomiting) Qty: 10 0RF amoxicillin 500 mg capsule 1,000 mg PO BID 5 Days Qty: 20 0RF azithromycin [Zithromax Z-Tye] 250 mg tablet See Rx Instructions .ROUTE .COMPLEX Qty: 6 0RF Rx Instructions: take 500 mg today (day 1), then 250 mg for 4 days (days 2-5) morphine 15 mg tablet 15 mg PO Q4-6H PRN (Reason: pain) Qty: 14 0RF Rx Instructions: Patient may request partial fill; Partial Fill upon patient request. hydrocortisone [Procto-Med HC] 2.5 % cream with perineal applicator 1 appl PA DAILY Qty: 30 0RF ibuprofen 600 mg tablet 600 mg PO Q8H PRN (Reason: pain) Qty: 15 0RF hydromorphone [Dilaudid] 2 mg tablet 2 mg PO Q8H PRN (Reason: pain) Qty: 10 0RF benzonatate 100 mg capsule 100 mg PO TID PRN (Reason: cough) Qty: 14 0RF morphine 15 mg tablet 15 mg PO TID PRN (Reason: pain) Qty: 10 0RF Rx Instructions: partial fill okay; Partial Fill upon patient request. ondansetron 4 mg tablet,disintegrating 4 mg PO Q8H PRN (Reason: nausea and vomiting) Qty: 20 0RF dhdbbtgmk-iszojz-lgpahdfa-scop [] 16.2-0.1037 -0.0194 mg tablet 1 tab PO BID PRN (Reason: abdominal pain) Qty: 10 0RF dabigatran etexilate 75 mg capsule 75 mg PO BID Discharge Date/Time: 07/23/23 19:45
== END 2023-07-23 19:45 | disposition left against medical advice (07) ==
LOC: HO.ED 19:21
PROVIDERS: Emergency Provider Emergency Medicine; PCP Physician Assistant
DX: R50.9 Fever, unspecified (principal); B20 Human immunodeficiency virus [HIV] disease; E11.9 Type 2 diabetes mellitus without complications; Z86.718 Personal history of other venous thrombosis and embolism; Z87.891 Personal history of nicotine dependence
CPT/HCPCS: 99281

== ENCOUNTER 2023-08-01 12:23 | Emergency (ER) | payer MEDICARE, MEDICAID, SELFPAY ==
--- NOTE | ~2023-08-01 | XR_ITS ---
EXAMINATION: XR CHEST CLINICAL INFORMATION: Chest pain COMPARISON: CTA chest 10/27/2019 TECHNIQUE: 2 views of the chest were obtained. FINDINGS: The lungs are well-expanded and clear. Heart size and pulmonary vascularity is normal. No gross bony abnormality seen. XR/XR chest 2V IMPRESSION: Unremarkable chest exam.
--- NOTE | 2023-08-01 12:57 | ED.GENADULT ---
HPI - General Adult General Chief complaint: General Medical Stated complaint: Stomach Head Pain Etc Related Data Home Medications Medication Instructions Recorded Confirmed dabigatran etexilate 75 mg capsule 75 mg PO BID 06/13/21 07/14/21 Previous Rx's Medication Instructions Recorded ciprofloxacin HCl 250 mg tablet 250 mg PO Q12H #14 tabs 08/16/20 metronidazole 500 mg tablet 500 mg PO Q12H #14 tabs 08/16/20 (Flagyl) ondansetron HCl 4 mg tablet 4 mg PO Q8H PRN nausea and 08/16/20 (Zofran) vomiting #10 tabs hydrocortisone 2.5 % topical cream 1 appl [place] DAILY #30 grams 05/26/21 with perineal applicator (Procto-Med HC) ibuprofen 600 mg tablet 600 mg PO Q8H PRN pain #15 tabs 05/26/21 hydromorphone 2 mg tablet 2 mg PO Q8H PRN pain #10 tabs 06/22/21 (Dilaudid) ondansetron 4 mg disintegrating 4 mg PO ONCE PRN nausea and 01/26/22 tablet vomiting #10 tabs amoxicillin 500 mg capsule 1,000 mg (2 x 500 mg) PO BID 5 10/08/22 days #20 caps azithromycin 250 mg tablet See Rx Instructions PO .COMPLEX #6 10/08/22 (Zithromax Z-Tye) tabs morphine 15 mg immediate release 15 mg PO Q4-6H PRN pain #14 tabs 10/08/22 tablet benzonatate 100 mg capsule 100 mg PO TID PRN cough #14 caps 10/26/22 morphine 15 mg immediate release 15 mg PO TID PRN pain #10 tabs 04/06/23 tablet ondansetron 4 mg disintegrating 4 mg PO Q8H PRN nausea and 04/06/23 tablet vomiting #20 tabs czapsjpvb-imxsdbpxx-hlistgom-scop 1 tab PO BID PRN abdominal pain 05/07/23 16.2 mg-0.1037 mg-0.0194 mg tablet #10 tabs () Allergies Allergy/AdvReac Type Severity Reaction Status Date / Time influenza virus vaccine, Allergy Severe GUILLIAN Verified 08/01/23 12:57 specific BARRE HX. [FLU VACCINE] tramadol [TRAMADOL] Allergy Severe SEIZURES Verified 08/01/23 12:57 acetaminophen [From PERCOCET] Allergy Intermediate ITCHING Verified 08/01/23 12:57 carbamazepine [From TEGRETOL] Allergy Intermediate HALLUCINATI Verified 08/01/23 12:57 ONS lamotrigine [From LAMICTAL] Allergy Intermediate ITCHING Verified 08/01/23 12:57 metoclopramide [From REGLAN] Allergy Intermediate ITCHY Verified 08/01/23 12:57 oxycodone [From PERCOCET] Allergy Intermediate ITCHING Verified 08/01/23 12:57 SEAFOOD Allergy Severe ANAPHYLAXIS Uncoded 08/01/23 12:57 [facility] Past Medical History Medical History Left sided abdominal pain COVID-19 DVT (deep venous thrombosis) Diabetes Seizure disorder HIV (human immunodeficiency virus infection) Surgical History Status post cholecystectomy Status post laparoscopic appendectomy H/O fasciotomy S/P AAA (abdominal aortic aneurysm) repair S/P IVC filter Social History Social History Alcohol intake: never Patient Tobacco Use Status: Former Tobacco user Physical Exam ED Vital Signs: BMI result Body Mass Index 27.9 Course Course Course Narrative: This is an RME: Additional HPI, ROS, PE not included below will be deferred to primary provider. 47-year-old male with history of HIV, seizures, diabetes, AAA status post sleeve repair in '16 in [place], DVT on Fondaparinux here with complaints of chest pain, headache, SOB, and abdominal pain x 1 week. Patient reports that he has had black stool. Patient left without treatment last week. Plan: Labs, EKG, chest x-ray Reevaluation(s) Reevaluation #1: pt eloped prior to completing treatment and full evaluation. Medical Decision Making Lab Data 08/01/23 13:35 08/01/23 13:35 Labs: Lab Results 08/01/23 Range/Units 13:35 WBC 3.6 L (4.8-10.8) X10*3/uL RBC 4.85 (4.60-5.80) X10*6/uL Hgb 14.0 (14.0-18.0) g/dl Hct 42.6 (42.0-52.0) % MCV 87.8 (80.0-98.0) fL MCH 28.9 (27.0-33.0) pg MCHC 32.9 (31.0-36.0) g/dl RDW 14.1 (11.0-16.0) % Plt Count 193 (160-400) X10*3/uL MPV 9.5 (9.4-12.4) fL Immature Gran % (Auto) 0.0 (0.0-0.4) % Neut % (Auto) 47.4 (45-73) % Lymph % (Auto) 43.3 H (20-40) % [place] % (Auto) 7.7 (2-11) % Eos % (Auto) 0.8 (0-4) % Baso % (Auto) 0.8 (0-2) % Lymph # (Auto) 1.6 (1.2-4.9) X10*3/uL [place] # (Auto) 0.3 (0.1-1.2) X10*3/uL Eos # (Auto) 0.0 (0.0-0.4) X10*3/uL Baso # (Auto) 0.0 (0.0-0.2) X10*3/uL Abs Immat Gran (auto) 0.00 (0.00-0.03) X10*3/uL Absolute Neuts (auto) 1.7 L (2.0-8.3) x10*3/uL Absolute Nucleated RBC 0.000 (0.0-0.012) X10*3/uL Nucleated RBC % (auto) 0.0 (0.0-0.2) /100WBC Sodium 133 L (135-145) mmol/L Potassium 4.2 (3.3-5.1) mmol/L Chloride 104 (96-108) mmol/L Carbon Dioxide 19 L (22-29) mmol/L Anion Gap 14 (12-20) BUN 13 (9-16) mg/dL Creatinine 1.20 (0.5-1.4) mg/dL Estim Creat Clear Calc 80.7 Estimated GFR > 60 Random Glucose 294 H (60-115) mg/dL Calcium 9.6 (8.4-10.2) mg/dL Total Bilirubin 0.3 (0.0-1.0) mg/dL Direct Bilirubin 0.1 (0.0-0.5) mg/dL AST 58 H (5-37) U/L ALT 60 H (0-40) U/L Alkaline Phosphatase 156 H (39-117) U/L Troponin I High Sens < 2.7 (<3.5-35.0) ng/L Total Protein 9.3 H (6.5-8.0) g/dL Albumin 4.1 (3.5-5.0) g/dL Lipase 12 (8-78) U/L Influenza Type A (PCR) NEGATIVE (Negative) Influenza Type B (PCR) NEGATIVE (Negative) RSV RNA Qual (PCR) NEGATIVE (Negative) SARS-CoV-2 RNA (RT-PCR) POSITIVE A (Negative) Discharge Plan Discharge Clinical Impression: Abdominal pain Patient Disposition: Left W/O Completing Treatment Prescriptions: No Action metronidazole [Flagyl] 500 mg tablet 500 mg PO Q12H Qty: 14 0RF ciprofloxacin HCl 250 mg tablet 250 mg PO Q12H Qty: 14 0RF ondansetron HCl [Zofran] 4 mg tablet 4 mg PO Q8H PRN (Reason: nausea and vomiting) Qty: 10 0RF ondansetron 4 mg tablet,disintegrating 4 mg PO ONCE PRN (Reason: nausea and vomiting) Qty: 10 0RF amoxicillin 500 mg capsule 1,000 mg PO BID 5 Days Qty: 20 0RF azithromycin [Zithromax Z-Tye] 250 mg tablet See Rx Instructions .ROUTE .COMPLEX Qty: 6 0RF Rx Instructions: take 500 mg today (day 1), then 250 mg for 4 days (days 2-5) morphine 15 mg tablet 15 mg PO Q4-6H PRN (Reason: pain) Qty: 14 0RF Rx Instructions: Patient may request partial fill; Partial Fill upon patient request. hydrocortisone [Procto-Med HC] 2.5 % cream with perineal applicator 1 appl RI DAILY Qty: 30 0RF ibuprofen 600 mg tablet 600 mg PO Q8H PRN (Reason: pain) Qty: 15 0RF hydromorphone [Dilaudid] 2 mg tablet 2 mg PO Q8H PRN (Reason: pain) Qty: 10 0RF benzonatate 100 mg capsule 100 mg PO TID PRN (Reason: cough) Qty: 14 0RF morphine 15 mg tablet 15 mg PO TID PRN (Reason: pain) Qty: 10 0RF Rx Instructions: partial fill okay; Partial Fill upon patient request. ondansetron 4 mg tablet,disintegrating 4 mg PO Q8H PRN (Reason: nausea and vomiting) Qty: 20 0RF ualcdnpdk-vicfjd-hdfmftvk-scop [] 16.2-0.1037 -0.0194 mg tablet 1 tab PO BID PRN (Reason: abdominal pain) Qty: 10 0RF dabigatran etexilate 75 mg capsule 75 mg PO BID Discharge Date/Time: 08/01/23 19:47
[2023-08-01 13:00] VITALS: BP 120/97; PULSE 116; RESP 24; TEMP 37.2; O2SAT 97; BMI 27.9
--- NOTE | 2023-08-01 13:06 | ECG_ITS ---
Test Reason : chest pain Blood Pressure : / mmHG Vent. Rate : 099 BPM Atrial Rate : 099 BPM P-R Int : 138 ms QRS Dur : 084 ms QT Int : 384 ms P-R-T Axes : 062 060 036 degrees QTc Int : 492 ms Sinus rhythm with marked sinus arrhythmia Prolonged QT Abnormal ECG When compared with ECG of 07-MAY-2023 11:06, No significant change was found Referred By: Jennifer Feliciano Electronically Signed By:JEAN-PIERRE ALMEIDA
[2023-08-01 13:45] LABS: MANUAL DIFF FLAG NO
[2023-08-01 13:47] LABS: Basophils Percent Auto 0.8 % (0-2); Eosinophils Percent Auto 0.8 % (0-4); Hematocrit 42.6 % (42.0-52.0); Lymphocytes Absolute Auto 1.6 X10*3/uL (1.2-4.9); Lymphocytes Percent Auto 43.3 % (20-40); Mean Corpuscular HGB Conc 32.9 g/dl (31.0-36.0); Mean Corpuscular Hemoglobin 28.9 pg (27.0-33.0); Mean Corpuscular Volume 87.8 fL (80.0-98.0); Mean Platelet Volume 9.5 fL (9.4-12.4); Monocytes Absolute Auto 0.3 X10*3/uL (0.1-1.2); Monocytes Percent Auto 7.7 % (2-11); Neutrophils Absolute Auto 1.7 x10*3/uL (2.0-8.3); Neutrophils Percent Auto 47.4 % (45-73); Platelet Count 193 X10*3/uL (160-400); Red Blood Count 4.85 X10*6/uL (4.60-5.80); Red Cell Distribution Width 14.1 % (11.0-16.0); White Blood Count 3.6 X10*3/uL (4.8-10.8)
[2023-08-01 14:06] LABS: Alanine Aminotransferase 60 U/L (0-40); Albumin Level 4.1 g/dL (3.5-5.0); Alkaline Phosphatase 156 U/L (39-117); Anion Gap 14 (12-20); Aspartate Amino Transferase 58 U/L (5-37); Bilirubin Direct 0.1 mg/dL (0.0-0.5); Bilirubin Total 0.3 mg/dL (0.0-1.0); Blood Urea Nitrogen 13 mg/dL (9-16); Calcium 9.6 mg/dL (8.4-10.2); Carbon Dioxide 19 mmol/L (22-29); Chloride 104 mmol/L (96-108); Creatinine Clr Calc Pharmacy 80.7; Estimated Glomerular Filt Rate > 60; Glucose Random 294 mg/dL (60-115); Lipase 12 U/L (8-78); Potassium 4.2 mmol/L (3.3-5.1); Sodium 133 mmol/L (135-145); Total Protein 9.3 g/dL (6.5-8.0)
[2023-08-01 14:17] LABS: Troponin-I High Sensitivity < 2.7 ng/L (<3.5-35.0)
[2023-08-01 14:24] LABS: Influenza A PCR NEGATIVE (Negative); Influenza B PCR NEGATIVE (Negative); Resp Syncy Virus RNA Qual PCR NEGATIVE (Negative); SARS COV2 PCR INHOUSE POSITIVE (Negative)
== END 2023-08-01 19:47 | disposition left against medical advice (07) ==
PROVIDERS: Physician Assistant Medical; Emergency Provider Emergency Medicine; PCP Physician Assistant
DX: U07.1 COVID-19 (principal); R10.9 Unspecified abdominal pain; R51.9 Headache, unspecified; Z53.21 Procedure and treatment not carried out due to patient leaving prior to being seen by health care provider
CPT/HCPCS: 0241U; 36415; 71046; 80048; 80076; 83690; 84484; 85025; 93005; 99283

== ENCOUNTER → 2023-08-01 13:06 | Outpatient (BNV) | payer MEDICARE, MEDICAID, SELFPAY | PROVIDERS: PCP Physician Assistant; Visit Provider Internal Medicine | DX: I45.81 Long QT syndrome (principal) | CPT/HCPCS: 93010 ==

== ENCOUNTER 2023-09-25 11:05 | Emergency (ER) | payer MEDICARE, MEDICAID, SELFPAY ==
--- NOTE | ~2023-09-25 | CT_ITS ---
EXAMINATION: CT ABDOMEN AND PELVIS WITH CONTRAST CLINICAL INFORMATION: Hernia repair 4 days ago. Diffuse abdomen pain. COMPARISON: Portions of CT angiography 05/21/23 TECHNIQUE: Multidetector volumetric images were obtained from the superior aspect of the liver through the pubic symphysis following administration 85 mL of Omnipaque 350 intravenous contrast. Sagittal and coronal reformatted images were obtained on the technologist's workstation. Oral contrast: Yes This CT examination was performed using dose optimization techniques as appropriate, variously including the following: *Automated exposure control *Adjustment of mA and/or kV according to patient size (this includes techniques or standardized protocols for targeted exams where dose is matched to indication/reason for exam; i.e. extremities or head) *Use of iterative reconstruction technique DLP: 598 mGy-cm FINDINGS: LUNG BASES: No suspicious abnormality in the visualized lower chest LIVER, GALLBLADDER, AND BILIARY TREE: There is extensive fatty change in the liver. There are surgical clips in the expected region of the gallbladder. There is no biliary dilation PANCREAS: No suspicious abnormality. SPLEEN: There are some calcified granulomata. ADRENAL GLANDS: No suspicious abnormality KIDNEYS AND URETERS: There is no dilation of the urinary collecting system on either side. There is a wedge-shaped defect in the lower pole the right kidney which is unchanged. The nephrograms are symmetric. There is no suspicious renal mass. BLADDER: The bladder is not well-distended. The bladder wall is somewhat thickened. GASTROINTESTINAL TRACT: Anastomotic suture consistent with rectosigmoid anastomosis. There is contrast present within the proximal and mid colon. There is extensive stranding between the abdominal wall in the transverse colon in some areas the serosal surface of the colon is indistinct. There is no convincing extraluminal contrast. No suspicious abnormality of the stomach. No evidence of high-grade small bowel obstruction. The stranding associated with the ventral abdominal wall is associated with some metallic tacks consistent with previous abdominal wall repair. ABDOMINAL WALL: There is stranding in the abdominal wall. Findings suggest abdominal wall repair. The stranding deep to the abdominal wall in the omentum/mesentery is nonspecific. I doubt the presence of a significant drainable collection. Stranding is inseparable from the ventral aspect of the transverse colon. There is at least one tiny droplet of gas There are bilateral areas of subcutaneous thickening and stranding with some gas. This could reflect areas of injection or access for laparoscopic surgery. LYMPH NODES: There are a few scattered nonenlarged retroperitoneal and periportal lymph nodes which do not require any specific imaging follow-up VASCULAR: There is aorto biiliac stent placement. The portal vein enhances. The arterial enhancement is not optimal. PELVIC VISCERA: No suspicious abnormality OSSEOUS STRUCTURES: No suspicious focal lesion CT/CT abdomen pelvis w IV con IMPRESSION: Extensive stranding associated with previous abdominal wall repair. This extends to be inseparable from the transverse colon. No extraluminal contrast or large drainable fluid collection. Fleischner guidelines were followed.
[2023-09-25 11:18] VITALS: BP 115/75; PULSE 96; RESP 18; TEMP 36.8; O2SAT 97; BMI 28.9
--- NOTE | 2023-09-25 11:26 | ED_ITS ---
HPI - General Adult General Chief complaint: Abdominal Pain Stated complaint: hernia surgery/pain, stomach swollen, fever Time Seen by Provider: 09/25/23 13:10 Source: patient Mode of arrival: ambulatory Limitations: language barrier (Patient speaks Swedish, he speaks and understands some Micronesian, mixing machine attendant used) History of Present Illness HPI narrative: 48-year-old male with a history of seizure disorder, HIV disease, diabetes, diverticulitis, DVT, appendectomy, cholecystectomy, AAA repair, lower extremity bypass who had a hernia repair 4 days prior at [facility]. Patient states that over the past 2 days he is felt bloated. He has had very little food or fluid intake. Patient has had nausea with no vomiting. He states that since yesterday he has had diffuse, severe, abdominal pain. States he feels bloated. He did have a bowel movement here in the emergency department. He states that initially he did have blood in his urine but this has resolved. He states that he did have fever and chills yesterday in his temperature was 100.6 degrees F. the patient went to the emergency department at [facility] yesterday however he waited 14 hours and was not seen. Related Data Home Medications Medication Instructions Recorded Confirmed dabigatran etexilate 75 mg capsule 75 mg PO BID 06/13/21 07/14/21 Previous Rx's Medication Instructions Recorded ciprofloxacin HCl 250 mg tablet 250 mg PO Q12H #14 tabs 08/16/20 metronidazole 500 mg tablet 500 mg PO Q12H #14 tabs 08/16/20 (Flagyl) ondansetron HCl 4 mg tablet 4 mg PO Q8H PRN nausea and 08/16/20 (Zofran) vomiting #10 tabs hydrocortisone 2.5 % topical cream 1 appl CO DAILY #30 grams 05/26/21 with perineal applicator (Procto-Med HC) ibuprofen 600 mg tablet 600 mg PO Q8H PRN pain #15 tabs 05/26/21 hydromorphone 2 mg tablet 2 mg PO Q8H PRN pain #10 tabs 06/22/21 (Dilaudid) ondansetron 4 mg disintegrating 4 mg PO ONCE PRN nausea and 01/26/22 tablet vomiting #10 tabs amoxicillin 500 mg capsule 1,000 mg (2 x 500 mg) PO BID 5 10/08/22 days #20 caps azithromycin 250 mg tablet See Rx Instructions PO .COMPLEX #6 10/08/22 (Zithromax Z-Tye) tabs morphine 15 mg immediate release 15 mg PO Q4-6H PRN pain #14 tabs 10/08/22 tablet benzonatate 100 mg capsule 100 mg PO TID PRN cough #14 caps 10/26/22 morphine 15 mg immediate release 15 mg PO TID PRN pain #10 tabs 04/06/23 tablet ondansetron 4 mg disintegrating 4 mg PO Q8H PRN nausea and 04/06/23 tablet vomiting #20 tabs cckissdbk-jnlhnjzpg-hnxygqcc-scop 1 tab PO BID PRN abdominal pain 05/07/23 16.2 mg-0.1037 mg-0.0194 mg tablet #10 tabs () Allergies Allergy/AdvReac Type Severity Reaction Status Date / Time influenza virus vaccine, Allergy Severe GUILLIAN Verified 09/25/23 11:17 specific BARRE HX. [FLU VACCINE] tramadol [TRAMADOL] Allergy Severe SEIZURES Verified 09/25/23 11:17 acetaminophen [From PERCOCET] Allergy Intermediate ITCHING Verified 09/25/23 11:17 carbamazepine [From TEGRETOL] Allergy Intermediate HALLUCINATI Verified 09/25/23 11:17 ONS lamotrigine [From LAMICTAL] Allergy Intermediate ITCHING Verified 09/25/23 11:17 metoclopramide [From REGLAN] Allergy Intermediate ITCHY Verified 09/25/23 11:17 oxycodone [From PERCOCET] Allergy Intermediate ITCHING Verified 09/25/23 11:17 SEAFOOD Allergy Severe ANAPHYLAXIS Uncoded 08/01/23 12:57 Review of Systems 2 Review of Systems: Yes all other systems are reviewed and are negative [facility] Past Medical History [facility] Narrative: Social history: He denies tobacco, alcohol and drug use. Medical History Left sided abdominal pain COVID-19 DVT (deep venous thrombosis) Diabetes Seizure disorder HIV (human immunodeficiency virus infection) Surgical History Status post cholecystectomy Status post laparoscopic appendectomy H/O fasciotomy S/P AAA (abdominal aortic aneurysm) repair S/P IVC filter Social History Social History Alcohol intake: never Patient Tobacco Use Status: Former Tobacco user Smoked in Last 30 Days: No Use of substances other than those prescribed or required for medical reasons: No Advance Directives: No Advance Directives Information Provided: Yes Physical Exam ED Vital Signs: Vital Signs - 24 hr 09/25/23 11:18 09/25/23 15:15 09/25/23 17:38 Temperature 98.3 F Pulse Rate 96 85 Respiratory Rate 18 16 18 Blood Pressure 115/75 121/67 Pulse Oximetry 97 96 Oxygen Delivery Method Room Air Room Air BMI result Body Mass Index 28.9 Vital signs were normal Exam General: Awake, alert ,, he does appear to be in distress secondary to his abdominal pain Head: Normocephalic, atraumatic EENT: PERRL, Lids normal, sclera normal, conjunctiva normal, nose normal , ears normal, throat without erythema or exudates Neck: Supple, no adenopathy Lung: breath sounds symmetric, no wheezing, rales or rhonchi Chest: symmetric movement, nontender Heart: regular rate and rhythm, normal S1, S2 no murmurs or rubs Abdomen: Abdomen appears to be distended, diminished bowel sounds, patient has severe tenderness diffusely with minimal palpation of his abdomen Extremities: no deformities, moves all extremities symmetrically Neuro: Awake, alert, oriented, normal speech,, moves all extremities symmetrically Psych: Pleasant, cooperative Course Course Course Narrative: RME- 48-year-old male history of diabetes, HIV presents for evaluation abdominal pain, fevers. He reports he is postop day 4 after an umbilical hernia repair at [facility]. He reports fevers as high as 100.4. He went to [facility] yesterday but left after 14 hours without being seen. Plan for labs, CT scan. Will attempt to get records from [facility] Medications Administered Generic Name Dose Route Start Last Admin Trade Name Freq PRN Reason Stop Dose Admin Lactated Ringer's 1,000 mls @ 125 mls/hr 09/25/23 17:15 09/25/23 17:46 Lr IVCONT 125 mls/hr .Q8H HAYLEY Administration Discontinued Medications Generic Name Dose Route Start Last Admin Trade Name Freq PRN Reason Stop Dose Admin Diatrizoate Meglum/Diatrizoate Sod 30 ml 09/25/23 16:33 09/25/23 16:33 Diatrizoate Meglumine, Sodium 30 Ml Solution PO 09/25/23 16:34 30 ml ONCE ONE Administration Hydromorphone HCl 1 mg 09/25/23 13:39 09/25/23 15:15 Hydromorphone Hcl 1 Mg/Ml Syringe IVPUSH 09/25/23 13:40 1 mg ONCE STA Administration Protocol Hydromorphone HCl 1 mg 09/25/23 15:59 09/25/23 16:12 Hydromorphone Hcl 1 Mg/Ml Syringe IVPUSH 09/25/23 16:00 1 mg ONCE STA Administration Protocol Hydromorphone HCl 1 mg 09/25/23 17:07 09/25/23 17:38 Hydromorphone Hcl 1 Mg/Ml Syringe IVPUSH 09/25/23 17:08 1 mg ONCE STA Administration Protocol Sodium Chloride 1,000 mls @ 999 mls/hr 09/25/23 13:39 09/25/23 16:12 Ns IV 09/25/23 14:39 Infused .Q1H1M STA Infusion Iohexol 100 ml 09/25/23 16:32 09/25/23 16:33 Iohexol 350 Mg/Ml 100 Ml Infus..Btl IV 09/25/23 16:33 85 ml ONCE ONE Administration Ondansetron HCl 4 mg 09/25/23 13:39 09/25/23 15:14 Ondansetron Hcl 4 Mg/2 Ml Vial IVPUSH 09/25/23 13:40 4 mg ONCE ONE Administration Medical Decision Making Medical Decision Making MDM Narrative: 48-year-old male with a history of seizure disorder, HIV disease, diabetes, diverticulitis, DVT, appendectomy, cholecystectomy, AAA repair, lower extremity bypass who had a hernia repair 4 days prior at [facility], complaining of 2 days of severe abdominal pain, bloating, very little food or fluid intake, nausea without vomiting, and fever with chills. Vital signs were normal. Abdomen appears distended with diminished bowel sounds and he has diffuse severe tenderness with minimal palpation with voluntary guarding. Differential diagnosis includes but is not limited to bowel obstruction, postsurgical infection/abscess, bowel perforation, pancreatitis, diverticulitis, postop pain, electrolyte abnormalities. Following evaluation was ordered: CBC, CMP, lipase, lactic acid, urinalysis, COVID-19, blood cultures x2, CT scan of the abdomen pelvis with oral and IV contrast Patient was treated with the following: IV insert, normal saline x1 L, Dilaudid 1 mg IV, Zofran 4 mg IV 16:51 My interpretation patient's laboratory evaluation is as follows: WBC was normal 4800, mild normocytic anemia with an H&H of 12.8 and 39.6. Sodium low 134. Bicarb low 18. Glucose elevated 260. Lactic acid elevated 2.1. Alk-phos elevated 141. Patient did get some relief with the initial dose of Dilaudid required Dilaudid 1 mg IV x2 doses At the end of my shift, patient's CT scan of the abdomen pelvis with IV and oral contrast is pending therefore the patient's care was turned over to my colleague, Dr. Katie Flanagan. Patient's CT scan showed CT/CT abdomen pelvis w IV con IMPRESSION: Extensive stranding associated with previous abdominal wall repair. This extends to be inseparable from the transverse colon. No extraluminal contrast or large drainable fluid collection. Patient advised to follow with surgeon Admission/Observation Consideration of admission/observation: Escalation of care including admission/observation considered Lab Data 09/25/23 11:46 09/25/23 11:45 Labs: Lab Results 09/25/23 09/25/23 09/25/23 Range/Units 11:45 11:46 15:38 WBC 4.8 (4.8-10.8) X10*3/uL RBC 4.45 L (4.60-5.80) X10*6/uL Hgb 12.8 L (14.0-18.0) g/dl Hct 39.6 L (42.0-52.0) % MCV 89.0 (80.0-98.0) fL MCH 28.8 (27.0-33.0) pg MCHC 32.3 (31.0-36.0) g/dl RDW 14.3 (11.0-16.0) % Plt Count 177 (160-400) X10*3/uL MPV 9.6 (9.4-12.4) fL Immature Gran % (Auto) 0.4 (0.0-0.4) % Neut % (Auto) 59.4 (45-73) % Lymph % (Auto) 29.6 (20-40) % [place] % (Auto) 9.4 (2-11) % Eos % (Auto) 0.6 (0-4) % Baso % (Auto) 0.6 (0-2) % Lymph # (Auto) 1.4 (1.2-4.9) X10*3/uL [place] # (Auto) 0.5 (0.1-1.2) X10*3/uL Eos # (Auto) 0.0 (0.0-0.4) X10*3/uL Baso # (Auto) 0.0 (0.0-0.2) X10*3/uL Abs Immat Gran (auto) 0.02 (0.00-0.03) X10*3/uL Absolute Neuts (auto) 2.9 (2.0-8.3) x10*3/uL Absolute Nucleated RBC 0.000 (0.0-0.012) X10*3/uL Nucleated RBC % (auto) 0.0 (0.0-0.2) /100WBC Sodium 134 L (135-145) mmol/L Potassium 4.4 (3.3-5.1) mmol/L Chloride 106 (96-108) mmol/L Carbon Dioxide 18 L (22-29) mmol/L Anion Gap 14 (12-20) BUN 8 L (9-16) mg/dL Creatinine 1.10 (0.5-1.4) mg/dL Estim Creat Clear Calc 88.6 Estimated GFR > 60 Random Glucose 260 H (60-115) mg/dL Lactic Acid 2.1 H* (0.5-2.0) mmol/L Calcium 9.2 (8.4-10.2) mg/dL Total Bilirubin 0.6 (0.0-1.0) mg/dL AST 21 (5-37) U/L ALT 22 (0-40) U/L Alkaline Phosphatase 141 H (39-117) U/L Total Protein 8.9 H (6.5-8.0) g/dL Albumin 3.8 (3.5-5.0) g/dL Lipase 7 L (8-78) U/L Urine Color Yellow Urine Appearance Clear Urine pH 7.5 (5.0-9.0) Ur Specific [place] 1.020 (1.005-1.025) Urine Protein Trace (Neg-Trace) mg/dL Urine Glucose (UA) >=1000 H (Negative) mg/dL Urine Ketones Negative (Negative) mg/dL Urine Blood Negative (Negative) Urine Nitrite Negative (Negative) Ur Leukocyte Esterase Negative (Negative) Urine RBC 0-2 (0-2) /HPF Urine WBC 0-5 (0-5) /HPF Ur Squamous Epith Cells 0-2 (0-2) /HPF Urine Bacteria None Seen (None Seen) Hyaline Casts 0-2 (0-2) /LPF COVID-19 (CAYLA) Negative (Negative) COVID-19 Clin Com See Note Critical Care Time Critical Care Time Critical Care Time: Yes Total Critical Care Time: 45 Attestation: Critical Care: The patient was critically ill with a high probability of imminent or life threatening deterioration. I spent greater than 30 minutes of discontinuous time evaluating the patient,delivering critical care at the bedside, discussing and evaluating pertinent data with consultants. Critical care time does not include time spent performing separately billable procedures or teaching. Total time spent performing critical care was 45 minutes. Discharge Plan Discharge Clinical Impression: Abdominal pain Patient Disposition: Still a Patient Prescriptions: No Action metronidazole [Flagyl] 500 mg tablet 500 mg PO Q12H Qty: 14 0RF ciprofloxacin HCl 250 mg tablet 250 mg PO Q12H Qty: 14 0RF ondansetron HCl [Zofran] 4 mg tablet 4 mg PO Q8H PRN (Reason: nausea and vomiting) Qty: 10 0RF ondansetron 4 mg tablet,disintegrating 4 mg PO ONCE PRN (Reason: nausea and vomiting) Qty: 10 0RF amoxicillin 500 mg capsule 1,000 mg PO BID 5 Days Qty: 20 0RF azithromycin [Zithromax Z-Tye] 250 mg tablet See Rx Instructions .ROUTE .COMPLEX Qty: 6 0RF Rx Instructions: take 500 mg today (day 1), then 250 mg for 4 days (days 2-5) morphine 15 mg tablet 15 mg PO Q4-6H PRN (Reason: pain) Qty: 14 0RF Rx Instructions: Patient may request partial fill; Partial Fill upon patient request. hydrocortisone [Procto-Med HC] 2.5 % cream with perineal applicator 1 appl CO DAILY Qty: 30 0RF ibuprofen 600 mg tablet 600 mg PO Q8H PRN (Reason: pain) Qty: 15 0RF hydromorphone [Dilaudid] 2 mg tablet 2 mg PO Q8H PRN (Reason: pain) Qty: 10 0RF benzonatate 100 mg capsule 100 mg PO TID PRN (Reason: cough) Qty: 14 0RF morphine 15 mg tablet 15 mg PO TID PRN (Reason: pain) Qty: 10 0RF Rx Instructions: partial fill okay; Partial Fill upon patient request. ondansetron 4 mg tablet,disintegrating 4 mg PO Q8H PRN (Reason: nausea and vomiting) Qty: 20 0RF foslnorqi-oqqkrs-irlahhzj-scop [] 16.2-0.1037 -0.0194 mg tablet 1 tab PO BID PRN (Reason: abdominal pain) Qty: 10 0RF dabigatran etexilate 75 mg capsule 75 mg PO BID
[2023-09-25 11:52] LABS: MANUAL DIFF FLAG NO
[2023-09-25 11:54] LABS: Basophils Percent Auto 0.6 % (0-2); Eosinophils Percent Auto 0.6 % (0-4); Hematocrit 39.6 % (42.0-52.0); Hemoglobin 12.8 g/dl (14.0-18.0); Imm Gran Abs Auto 0.02 X10*3/uL (0.00-0.03); Imm Gran Pct Auto 0.4 % (0.0-0.4); Lymphocytes Absolute Auto 1.4 X10*3/uL (1.2-4.9); Lymphocytes Percent Auto 29.6 % (20-40); Mean Corpuscular HGB Conc 32.3 g/dl (31.0-36.0); Mean Corpuscular Hemoglobin 28.8 pg (27.0-33.0); Mean Platelet Volume 9.6 fL (9.4-12.4); Monocytes Absolute Auto 0.5 X10*3/uL (0.1-1.2); Monocytes Percent Auto 9.4 % (2-11); Neutrophils Absolute Auto 2.9 x10*3/uL (2.0-8.3); Neutrophils Percent Auto 59.4 % (45-73); Platelet Count 177 X10*3/uL (160-400); Red Blood Count 4.45 X10*6/uL (4.60-5.80); Red Cell Distribution Width 14.3 % (11.0-16.0); White Blood Count 4.8 X10*3/uL (4.8-10.8)
[2023-09-25 12:05] LABS: Lactic Acid 2.1 mmol/L (0.5-2.0)
[2023-09-25 12:08] LABS: COVID-19 Test Negative (Negative); IDNOW Serial# 58CA691E
[2023-09-25 12:11] LABS: Alanine Aminotransferase 22 U/L (0-40); Albumin Level 3.8 g/dL (3.5-5.0); Alkaline Phosphatase 141 U/L (39-117); Anion Gap 14 (12-20); Aspartate Amino Transferase 21 U/L (5-37); Bilirubin Total 0.6 mg/dL (0.0-1.0); Blood Urea Nitrogen 8 mg/dL (9-16); Calcium 9.2 mg/dL (8.4-10.2); Carbon Dioxide 18 mmol/L (22-29); Chloride 106 mmol/L (96-108); Creatinine Clr Calc Pharmacy 88.6; Estimated Glomerular Filt Rate > 60; Glucose Random 260 mg/dL (60-115); Lipase 7 U/L (8-78); Potassium 4.4 mmol/L (3.3-5.1); Sodium 134 mmol/L (135-145); Total Protein 8.9 g/dL (6.5-8.0)
[2023-09-25 13:51] LABS: Reflex Lactate? Lactic Acid Added
--- NOTE | 2023-09-25 14:12 | PC.NURSE ---
Pt alert and oriented, mostly Norwegian speaking, family member at bedside translates. Pt reports hernia surgery last Sunday at [facility]. Pt reports severe ABD pain, nausea and fevers for the past 4 days, pain is all over abdomen, sharp and constant, 10/10. Pt guarding ABD, does not appear distended, surgery sites assessed with no drainage noted.
[2023-09-25] MEDS: ondansetron HCL 4 MG/2 ML VIAL IVPUSH (15:14)
[2023-09-25 15:15] VITALS: BP 121/67; PULSE 85; RESP 16; O2SAT 96
[2023-09-25] MEDS: HYDROmorphone HCl 1 MG/ML SYRINGE IVPUSH ×3 (15:15→17:38)
[2023-09-25] MEDS: 0.9 % Sodium Chloride 1,000 ML 999 ML IV (15:15)
--- NOTE | 2023-09-25 15:20 | PC.NURSE ---
Pt difficult stick, needed U/S guided IV placed. 20g obtained to left bicep. Medicated as charted.
--- NOTE | 2023-09-25 15:58 | PC.NURSE ---
Lactic cancelled per Dr Dana ZHOU contrast completed, UA sent
[2023-09-25 16:02] LABS: Appearance Urine Clear; Color Urine Yellow; Glucose Urine UA >=1000 mg/dL (Negative); Leukocyte Esterase Urine Negative (Negative); Nitrite Urine Negative (Negative); PH 7.5 (5.0-9.0); UMIC TRIGGER UACC YES; Urine Blood Negative (Negative); Urine Ketones Negative (Negative); Urine Protein Trace mg/dL (Neg-Trace)
[2023-09-25] MEDS: iohexoL 350 MG/ML 100 ML INFUS..BTL IV (16:33)
[2023-09-25] MEDS: Diatrizoate Meglumine, Sodium 30 ML SOLUTION PO (16:33)
[2023-09-25 17:38] VITALS: RESP 18
[2023-09-25] MEDS: Lactated Ringers 1,000 ML 125 ML IVCONT (17:46)
[2023-09-25 18:08] LABS: Bacteria Urine None Seen (None Seen); Hyaline Casts Urine 0-2 /LPF (0-2); RBC Urine 0-2 /HPF (0-2); Squamous Epithelial Cell Urine 0-2 /HPF (0-2); WBC Urine 0-5 /HPF (0-5)
[2023-09-25 19:15] VITALS: PULSE 80; RESP 18
[2023-09-25] MEDS: Morphine Sulfate Immed Release 15 MG TABLET PO (19:19)
== END 2023-09-25 19:24 | disposition home or self-care (01) ==
PROVIDERS: Emergency Medicine Emergency Medical Services; Physician Assistant; Emergency Provider Internal Medicine
DX: R10.30 Lower abdominal pain, unspecified (principal); R11.0 Nausea; R14.0 Abdominal distension (gaseous); Z79.899 Other long term (current) drug therapy; Z11.52 Encounter for screening for COVID-19
CPT/HCPCS: 74177; 80053; 81001; 81003; 83605; 83690; 85025; 87040; 87635; 96361; 96374; 96375; 96376; 99285; J1170; J2405; J7120; Q9967

== ENCOUNTER 2023-10-12 11:59 | Emergency (ER) | payer MEDICARE, MEDICAID, SELFPAY ==
--- NOTE | 2023-10-12 12:21 | ED_ITS ---
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 He denies any associated fevers or chills. Patient was also seen recently at [facility]. Related Data Home Medications Medication Instructions Recorded Confirmed dabigatran etexilate 75 mg capsule 75 mg PO BID 06/13/21 07/14/21 Previous Rx's Medication Instructions Recorded ciprofloxacin HCl 250 mg tablet 250 mg PO Q12H #14 tabs 08/16/20 metronidazole 500 mg tablet 500 mg PO Q12H #14 tabs 08/16/20 (Flagyl) ondansetron HCl 4 mg tablet 4 mg PO Q8H PRN nausea and 08/16/20 (Zofran) vomiting #10 tabs hydrocortisone 2.5 % topical cream 1 appl RI DAILY #30 grams 05/26/21 with perineal applicator (Procto-Med HC) ibuprofen 600 mg tablet 600 mg PO Q8H PRN pain #15 tabs 05/26/21 hydromorphone 2 mg tablet 2 mg PO Q8H PRN pain #10 tabs 06/22/21 (Dilaudid) ondansetron 4 mg disintegrating 4 mg PO ONCE PRN nausea and 01/26/22 tablet vomiting #10 tabs amoxicillin 500 mg capsule 1,000 mg (2 x 500 mg) PO BID 5 10/08/22 days #20 caps azithromycin 250 mg tablet See Rx Instructions PO .COMPLEX #6 10/08/22 (Zithromax Z-Tye) tabs morphine 15 mg immediate release 15 mg PO Q4-6H PRN pain #14 tabs 10/08/22 tablet benzonatate 100 mg capsule 100 mg PO TID PRN cough #14 caps 10/26/22 morphine 15 mg immediate release 15 mg PO TID PRN pain #10 tabs 04/06/23 tablet ondansetron 4 mg disintegrating 4 mg PO Q8H PRN nausea and 04/06/23 tablet vomiting #20 tabs frrqytdkg-oragetpee-rmboexxx-scop 1 tab PO BID PRN abdominal pain 05/07/23 16.2 mg-0.1037 mg-0.0194 mg tablet #10 tabs () morphine 15 mg immediate release 15 mg PO Q8H PRN pain #15 tabs 09/25/23 tablet azithromycin 500 mg tablet 500 mg PO DAILY 2 days #2 tabs 10/12/23 Allergies Allergy/AdvReac Type Severity Reaction Status Date / Time influenza virus vaccine, Allergy Severe GUILLIAN Verified 09/25/23 11:17 specific BARRE HX. [FLU VACCINE] tramadol [TRAMADOL] Allergy Severe SEIZURES Verified 09/25/23 11:17 acetaminophen [From PERCOCET] Allergy Intermediate ITCHING Verified 09/25/23 11:17 carbamazepine [From TEGRETOL] Allergy Intermediate HALLUCINATI Verified 09/25/23 11:17 ONS lamotrigine [From LAMICTAL] Allergy Intermediate ITCHING Verified 09/25/23 11:17 metoclopramide [From REGLAN] Allergy Intermediate ITCHY Verified 09/25/23 11:17 oxycodone [From PERCOCET] Allergy Intermediate ITCHING Verified 09/25/23 11:17 SEAFOOD Allergy Severe ANAPHYLAXIS Uncoded 08/01/23 12:57 Review of Systems Review of Systems Pertinent positives and negatives as stated in HPI PMFSH Past Medical History Source: nursing notes reviewed Medical History Left sided abdominal pain COVID-19 DVT (deep venous thrombosis) Diabetes Seizure disorder HIV (human immunodeficiency virus infection) Surgical History Status post cholecystectomy Status post laparoscopic appendectomy H/O fasciotomy S/P AAA (abdominal aortic aneurysm) repair S/P IVC filter Social History Social History Alcohol intake: never Patient Tobacco Use Status: Former Tobacco user Advance Directives: No Advance Directives Information Provided: Yes Physical Exam ED Vital Signs: Vital Signs - 24 hr 10/12/23 12:22 10/12/23 15:01 Temperature 98 F Pulse Rate 110 H 91 Respiratory Rate 18 16 Blood Pressure 117/83 119/82 Pulse Oximetry 99 97 Oxygen Delivery Method Room Air Room Air BMI result Body Mass Index 28.4 VITAL SIGNS: Reviewed. GENERAL: Well developed, well nourished, in no acute distress. HEAD: Normocephalic/atraumatic EYES: PERRLA, EOMI EARS: Ext canals without abnormality NOSE: Nares patent bilateral OROPHARYNX: no oral lesions noted, posterior pharynx clear NECK: Supple, no adenopathy LUNGS: Normal breath sounds. No adventitious sounds or accessory muscle use. SpO2<97> CARDIOVASCULAR: Regular rate and rhythm without noted murmurs ABDOMEN: Soft, non-tender, non-distended with bowel sounds. MUSCULOSKELETAL: No tenderness, deformities, or effusions noted on gross inspection. EXTREMITIES: No cyanosis, clubbing or edema. SKIN: Inspection of the skin reveals no rashes NEUROLOGIC: Alert and oriented x 4. Strength and sensation to light touch were grossly intact x 4. Course Course Course Narrative: RME:?48 yo male hx of HIV, diabetes, DVT, AAA, here for eval of diffuse abdominal pain x1 week. Associated dizziness, nausea, diarrhea. No vomiting. He was evaluated at [facility] 1 week ago for same, stool samples were sent and he received a call from the [place] infectious disease department today for results of Campylobacter. He was discharged from [facility] on Sunday (5 days ago). ID physician at [facility] was not in agreement with discharge. Denies numbness, tingling, weakness of the lower extremities or difficulty ambulating. Additionally had inguinal hernia surgery 1 month ago and reports issues since . Denies hematochezia, melena. Abdomen diffusely tender, greater along right lower and upper quadrants. + guarding. No rebound tenderness. No pulsatile abdominal mass. Labs, CT ordered. Full HPI, ROS and PE to be performed by the primary ED provider. Medical Decision Making Medical Decision Making [facility] Narrative: 48-year-old male with history and clinical presentation, DDX: Diarrheal illness, viral illness, medication side effect, I did review entire information obtained from [facility] regarding patient's recent visit. In short he signed out against medical advice with the following new findings: DVT/PE (patient states that he has continued to take the blood thinners), seroma without evidence of infection (patient has a follow-up appointment on 10/22 with his surgeon). I reviewed all investigations here in the emergency room and hematologic indices are negative for leukocytosis or left shift in there is a stable normocytic anemia without thrombocytopenia. Coagulation studies are within normal limits. Chemistry indices do not demonstrate an CHRIS and patient has a mild lactic acidosis that is likely associated with his current bouts of diarrhea. His alkaline phosphatase is chronically elevated and CRP-1.56 likely secondary to known underlying Campylobacter diarrhea. Patient otherwise appears well. He is currently on medication for influenza a as well. Patient received initial dose of azithromycin here in the emergency room and was discharged with remaining course and strongly encouraged to follow-up with his primary care doctor as well as his surgeon. Differential Diagnosis Differential Diagnoses: The differential diagnosis associated with the presentation includes Please see the discussion above Admission/Observation Consideration of admission/observation: Escalation of care including admission/observation considered Please see the discussion above Lab Data MDM Lab Attestation statement: I reviewed the patient's lab results. Please see the discussion above 10/12/23 13:52 10/12/23 13:52 Labs: Lab Results 10/12/23 Range/Units 13:52 WBC 5.3 (4.8-10.8) X10*3/uL RBC 4.51 L (4.60-5.80) X10*6/uL Hgb 12.9 L (14.0-18.0) g/dl Hct 40.2 L (42.0-52.0) % MCV 89.1 (80.0-98.0) fL MCH 28.6 (27.0-33.0) pg MCHC 32.1 (31.0-36.0) g/dl RDW 14.0 (11.0-16.0) % Plt Count 214 (160-400) X10*3/uL MPV 9.3 L (9.4-12.4) fL Immature Gran % (Auto) 0.2 (0.0-0.4) % Neut % (Auto) 63.1 (45-73) % Lymph % (Auto) 30.2 (20-40) % [place] % (Auto) 5.5 (2-11) % Eos % (Auto) 0.6 (0-4) % Baso % (Auto) 0.4 (0-2) % Lymph # (Auto) 1.6 (1.2-4.9) X10*3/uL [place] # (Auto) 0.3 (0.1-1.2) X10*3/uL Eos # (Auto) 0.0 (0.0-0.4) X10*3/uL Baso # (Auto) 0.0 (0.0-0.2) X10*3/uL Abs Immat Gran (auto) 0.01 (0.00-0.03) X10*3/uL Absolute Neuts (auto) 3.3 (2.0-8.3) x10*3/uL Absolute Nucleated RBC 0.000 (0.0-0.012) X10*3/uL Nucleated RBC % (auto) 0.0 (0.0-0.2) /100WBC ESR 78 H (0-15) MM/HR PT 13.2 (11.1-13.3) SEC INR 1.1 (0.9-1.1) Sodium 136 (135-145) mmol/L Potassium 3.9 (3.3-5.1) mmol/L Chloride 104 (96-108) mmol/L Carbon Dioxide 24 (22-29) mmol/L Anion Gap 12 (12-20) BUN 11 (9-16) mg/dL Creatinine 1.20 (0.5-1.4) mg/dL Estim Creat Clear Calc 80.4 Estimated GFR > 60 Random Glucose 158 H (60-115) mg/dL Lactic Acid 2.5 H* (0.5-2.0) mmol/L Calcium 9.2 (8.4-10.2) mg/dL Total Bilirubin 0.4 (0.0-1.0) mg/dL AST 40 H (5-37) U/L ALT 30 (0-40) U/L Alkaline Phosphatase 136 H (39-117) U/L C-Reactive Protein 1.56 H (< or = 0.50) mg/dL Total Protein 9.2 H (6.5-8.0) g/dL Albumin 4.0 (3.5-5.0) g/dL External Record Review External record reviewed: Outpatient record, Prior outpatient labs and Outside ED record Chronic Conditions Patient?s care impacted by: Diabetes and Other HIV Medications Administered Discontinued Medications Generic Name Dose Route Start Last Admin Trade Name Freq PRN Reason Stop Dose Admin Sodium Chloride 1,000 mls @ 999 mls/hr 10/12/23 14:45 10/12/23 15:29 Ns IV 02/16/24 15:45 Not Given .Q1H1M [facility] Critical Care Time Critical Care Time Critical Care Time: Yes Total Critical Care Time: 45 Attestation: I personally attest to this time spent taking care of the patient. Discharge Plan Discharge Clinical Impression: Campylobacter diarrhea Patient Disposition: Home, Self-Care Instructions: Acute Diarrhea (ED), Nutrition Tips for Relief of Diarrhea (ED), Enteritis (ED) Additional Instructions: 1. Reanudar todos los medicamentos caseros seg?n lo recetado. 2. Complete el tratamiento con antibi?ticos seg?n lo prescrito. Regrese a la tisha de emergencias si los s?ntomas empeoran. 1. Resume all home medications as prescribed. 2. Complete the course of antibiotics as prescribed. Return to the ER for any worsening symptoms. Prescriptions: New azithromycin 500 mg tablet 500 mg PO DAILY 2 Days Qty: 2 0RF Rx Instructions: start on day 2 of therapy No Action metronidazole [Flagyl] 500 mg tablet 500 mg PO Q12H Qty: 14 0RF ciprofloxacin HCl 250 mg tablet 250 mg PO Q12H Qty: 14 0RF ondansetron HCl [Zofran] 4 mg tablet 4 mg PO Q8H PRN (Reason: nausea and vomiting) Qty: 10 0RF ondansetron 4 mg tablet,disintegrating 4 mg PO ONCE PRN (Reason: nausea and vomiting) Qty: 10 0RF amoxicillin 500 mg capsule 1,000 mg PO BID 5 Days Qty: 20 0RF azithromycin [Zithromax Z-Tye] 250 mg tablet See Rx Instructions .ROUTE .COMPLEX Qty: 6 0RF Rx Instructions: take 500 mg today (day 1), then 250 mg for 4 days (days 2-5) morphine 15 mg tablet 15 mg PO Q4-6H PRN (Reason: pain) Qty: 14 0RF Rx Instructions: Patient may request partial fill; Partial Fill upon patient request. hydrocortisone [Procto-Med HC] 2.5 % cream with perineal applicator 1 appl RI DAILY Qty: 30 0RF ibuprofen 600 mg tablet 600 mg PO Q8H PRN (Reason: pain) Qty: 15 0RF hydromorphone [Dilaudid] 2 mg tablet 2 mg PO Q8H PRN (Reason: pain) Qty: 10 0RF benzonatate 100 mg capsule 100 mg PO TID PRN (Reason: cough) Qty: 14 0RF morphine 15 mg tablet 15 mg PO TID PRN (Reason: pain) Qty: 10 0RF Rx Instructions: partial fill okay; Partial Fill upon patient request. ondansetron 4 mg tablet,disintegrating 4 mg PO Q8H PRN (Reason: nausea and vomiting) Qty: 20 0RF ukikbtjfy-salqys-lxbqgadu-scop [] 16.2-0.1037 -0.0194 mg tablet 1 tab PO BID PRN (Reason: abdominal pain) Qty: 10 0RF morphine 15 mg tablet 15 mg PO Q8H PRN (Reason: pain) Qty: 15 0RF Rx Instructions: Partial Fill upon patient request. dabigatran etexilate 75 mg capsule 75 mg PO BID Print Language: Malay
[2023-10-12 12:22] VITALS: BP 117/83; PULSE 110; RESP 18; TEMP 36.6; O2SAT 99; BMI 28.4
[2023-10-12 13:57] LABS: MANUAL DIFF FLAG NO
[2023-10-12 14:01] LABS: Basophils Percent Auto 0.4 % (0-2); Eosinophils Percent Auto 0.6 % (0-4); Hematocrit 40.2 % (42.0-52.0); Hemoglobin 12.9 g/dl (14.0-18.0); Imm Gran Abs Auto 0.01 X10*3/uL (0.00-0.03); Imm Gran Pct Auto 0.2 % (0.0-0.4); Lymphocytes Absolute Auto 1.6 X10*3/uL (1.2-4.9); Lymphocytes Percent Auto 30.2 % (20-40); Mean Corpuscular HGB Conc 32.1 g/dl (31.0-36.0); Mean Corpuscular Hemoglobin 28.6 pg (27.0-33.0); Mean Corpuscular Volume 89.1 fL (80.0-98.0); Mean Platelet Volume 9.3 fL (9.4-12.4); Monocytes Absolute Auto 0.3 X10*3/uL (0.1-1.2); Monocytes Percent Auto 5.5 % (2-11); Neutrophils Absolute Auto 3.3 x10*3/uL (2.0-8.3); Neutrophils Percent Auto 63.1 % (45-73); Platelet Count 214 X10*3/uL (160-400); Red Blood Count 4.51 X10*6/uL (4.60-5.80); White Blood Count 5.3 X10*3/uL (4.8-10.8)
[2023-10-12 14:06] LABS: INTERNATIONAL NORM RATIO 1.1 (0.9-1.1); Prothrombin Time 13.2 SEC (11.1-13.3)
[2023-10-12 14:11] LABS: Lactic Acid 2.5 mmol/L (0.5-2.0)
[2023-10-12 14:13] LABS: Alanine Aminotransferase 30 U/L (0-40); Alkaline Phosphatase 136 U/L (39-117); Anion Gap 12 (12-20); Aspartate Amino Transferase 40 U/L (5-37); Bilirubin Total 0.4 mg/dL (0.0-1.0); Blood Urea Nitrogen 11 mg/dL (9-16); C Reactive Protein 1.56 mg/dL (< or = 0.50); Calcium 9.2 mg/dL (8.4-10.2); Carbon Dioxide 24 mmol/L (22-29); Chloride 104 mmol/L (96-108); Creatinine Clr Calc Pharmacy 80.4; Estimated Glomerular Filt Rate > 60; Glucose Random 158 mg/dL (60-115); Potassium 3.9 mmol/L (3.3-5.1); Sodium 136 mmol/L (135-145); Total Protein 9.2 g/dL (6.5-8.0)
[2023-10-12 14:45] LABS: Erythrocyte Sedimentation Rate 78 MM/HR (0-15)
[2023-10-12 15:01] VITALS: BP 119/82; PULSE 91; RESP 16; O2SAT 97
--- NOTE | 2023-10-12 15:29 | PC.NURSE ---
per provider pt to not have IV or fluids at this time, provider awaiting box puller to speak with patient.
[2023-10-12 15:57] LABS: Reflex Lactate? Lactic Acid Added
[2023-10-12 16:00] VITALS: BP 119/82; PULSE 89; RESP 14; TEMP 36.8; O2SAT 96
[2023-10-12] MEDS: Azithromycin 500 MG TABLET PO (16:26)
--- NOTE | 2023-10-12 16:29 | PC.NURSE ---
pt a&ox3, vss, pt medicated per order and will discharge per order
== END 2023-10-12 16:46 | disposition home or self-care (01) ==
PROVIDERS: Physician Assistant Medical; Emergency Provider Student in an Organized Health Care Education/Training Program
DX: A09 Infectious gastroenteritis and colitis, unspecified (principal); R10.9 Unspecified abdominal pain; Z79.899 Other long term (current) drug therapy
CPT/HCPCS: 36415; 80053; 83605; 85025; 85610; 85652; 86140; 99283; 99284

== ENCOUNTER 2023-12-25 17:37 | Emergency (ER) | payer MEDICARE, MEDICAID, SELFPAY ==
--- NOTE | ~2023-12-25 | CT_ITS ---
EXAMINATION: CT ABDOMEN AND PELVIS WITH CONTRAST CLINICAL INFORMATION: Reason for Exam LLQ tenderness, bloated R/O SBO, diverticulitis COMPARISON: 09/25/2023 TECHNIQUE: Multidetector volumetric images were obtained from the superior aspect of the liver through the pubic symphysis following administration 85 mL of Omnipaque 350 intravenous contrast. Sagittal and coronal reformatted images were obtained on the technologist's workstation. Oral contrast: Yes This CT examination was performed using dose optimization techniques as appropriate, variously including the following: *Automated exposure control *Adjustment of mA and/or kV according to patient size (this includes techniques or standardized protocols for targeted exams where dose is matched to indication/reason for exam; i.e. extremities or head) *Use of iterative reconstruction technique DLP: 599 mGy-cm FINDINGS: LUNG BASES: Bibasilar dependent atelectasis. LIVER, GALLBLADDER, AND BILIARY TREE: The liver demonstrates hypoattenuation consistent with steatosis. No focal hepatic lesion or biliary ductal dilatation is identified. Patient is status post cholecystectomy. PANCREAS: Moderate fatty atrophy. SPLEEN: Calcified splenic granulomas. ADRENAL GLANDS: Unremarkable. KIDNEYS AND URETERS: Bilateral nephrograms are symmetric. No hydronephrosis or obstructing calculus identified. BLADDER: Mildly distended with diffuse mural prominence. GASTROINTESTINAL TRACT: Suture line is present in the region of the sigmoid colon. No evidence of bowel obstruction or significant wall thickening. Patient appears to be status post appendectomy. No free fluid or free air is seen. ABDOMINAL WALL: Status post ventral hernia repair. Prior stranding around the anterior abdominal wall in this region has nearly completely resolved. Tiny fat-containing right inguinal hernia. LYMPH NODES: Normal. VASCULAR: Aortobiiliac stent graft is present. Abdominal aorta measures approximately 2.8 cm in diameter. PELVIC VISCERA: Unremarkable. OSSEOUS STRUCTURES: Unremarkable. CT/CT abdomen pelvis w IV con IMPRESSION: 1. No evidence of bowel obstruction. 2. Mural prominence of the urinary bladder, which could be due to underdistention or cystitis. 3. Near-complete resolution of prior stranding adjacent to the anterior abdominal wall. 4. Hepatic steatosis. 5. Status post aortobiiliac stent graft. Abdominal aorta measures approximately 2.8 cm in diameter. Based on published guidelines in J Am Crystal Radiol 2013; 10(10):789-794 and J Vasc Surg. 2018; 67:2-77, the recommendation for an abdominal aorta with diameter 2.6-2.9 cm is follow-up every 5 years if the aorta that meets the criteria for AAA (>1.5 x proximal normal segment; no f/u if < 1.5 x proximal normal segment; no f/u for aorta < 2.6 cm).
[2023-12-25 19:06] VITALS: BP 123/79; PULSE 94; RESP 20; TEMP 36.7; O2SAT 96; BMI 28.3
--- NOTE | 2023-12-25 19:07 | ED_ITS ---
HPI - Abdominal Pain General Chief Complaint: Abdominal Pain Stated Complaint: stomach pain/diverticulitis? Time Seen by Provider: 12/26/23 01:58 Source: patient and other (Partner) Mode of arrival: ambulatory Limitations: no limitations History of Present Illness HPI narrative: 48-year-old male with a history of popliteal artery aneurysm, AAA, DVT, diabetes, seizure, HIV, appendectomy, cholecystectomy, partial colectomy, diverticulitis who presents emergency department for evaluation of 1-1/2 weeks of left lower quadrant abdominal pain, bloated sensation, nausea, and vomiting. The patient states that he did have 2 episodes of loose diarrheal stool today. He denied fever but he did have chills. He states his symptoms feel similar to when he has had diverticulitis in the past. States the pain is a constant, severe pain which is 10/10. He states that he tried to go on a clear liquid diet but this did not improve his symptoms. According to his partner who is here in the emergency department the patient's abdomen appeared to be very bloated today. Patient take fondaparinux daily for his ?aneurysm ?. I did review Dr. Vazquez's note from 04/18/2022, the patient does have a thrombosed popliteal aneurysm and an IVC filter for DVT. Related Data Home Medications ?Medication ?Instructions ?Recorded ?Confirmed dabigatran etexilate 75 mg capsule 75 mg PO BID 06/13/21 07/14/21 Previous Rx's ?Medication ?Instructions ?Recorded ciprofloxacin HCl 250 mg tablet 250 mg PO Q12H #14 tabs 08/16/20 metronidazole 500 mg tablet 500 mg PO Q12H #14 tabs 08/16/20 (Flagyl) ondansetron HCl 4 mg tablet 4 mg PO Q8H PRN nausea and 08/16/20 (Zofran) vomiting #10 tabs hydrocortisone 2.5 % topical cream 1 appl ID DAILY #30 grams 05/26/21 with perineal applicator (Procto-Med HC) ibuprofen 600 mg tablet 600 mg PO Q8H PRN pain #15 tabs 05/26/21 hydromorphone 2 mg tablet 2 mg PO Q8H PRN pain #10 tabs 06/22/21 (Dilaudid) ondansetron 4 mg disintegrating 4 mg PO ONCE PRN nausea and 01/26/22 tablet vomiting #10 tabs amoxicillin 500 mg capsule 1,000 mg (2 x 500 mg) PO BID 5 10/08/22 days #20 caps azithromycin 250 mg tablet See Rx Instructions PO .COMPLEX #6 10/08/22 (Zithromax Z-Tye) tabs morphine 15 mg immediate release 15 mg PO Q4-6H PRN pain #14 tabs 10/08/22 tablet benzonatate 100 mg capsule 100 mg PO TID PRN cough #14 caps 10/26/22 morphine 15 mg immediate release 15 mg PO TID PRN pain #10 tabs 04/06/23 tablet ondansetron 4 mg disintegrating 4 mg PO Q8H PRN nausea and 04/06/23 tablet vomiting #20 tabs pifhzmdom-kpdqsozjl-eofhmvrq-scop 1 tab PO BID PRN abdominal pain 05/07/23 16.2 mg-0.1037 mg-0.0194 mg tablet #10 tabs () morphine 15 mg immediate release 15 mg PO Q8H PRN pain #15 tabs 09/25/23 tablet azithromycin 500 mg tablet 500 mg PO DAILY 2 days #2 tabs 10/12/23 morphine 15 mg immediate release 15 mg PO Q6H PRN pain #10 tabs 12/26/23 tablet ondansetron 4 mg disintegrating 4 mg PO Q6-8H PRN nausea and 12/26/23 tablet vomiting #14 tabs Allergies Allergy/AdvReac Type Severity Reaction Status Date / Time influenza virus vaccine, Allergy Severe GUILLIAN Verified 12/25/23 19:10 specific BARRE HX. [FLU VACCINE] tramadol [TRAMADOL] Allergy Severe SEIZURES Verified 12/25/23 19:10 acetaminophen [From PERCOCET] Allergy Intermediate ITCHING Verified 12/25/23 19:10 carbamazepine [From TEGRETOL] Allergy Intermediate HALLUCINATI Verified 12/25/23 19:10 ONS lamotrigine [From LAMICTAL] Allergy Intermediate ITCHING Verified 12/25/23 19:10 metoclopramide [From REGLAN] Allergy Intermediate ITCHY Verified 12/25/23 19:10 oxycodone [From PERCOCET] Allergy Intermediate ITCHING Verified 12/25/23 19:10 SEAFOOD Allergy Severe ANAPHYLAXIS Uncoded 08/01/23 12:57 Review of Systems Review of Systems Yes all other systems are reviewed and are negative PMFSH Past Medical History [facility] Narrative: Social history: He denies tobacco, alcohol and drug use. Medical History Left sided abdominal pain COVID-19 DVT (deep venous thrombosis) Diabetes Seizure disorder HIV (human immunodeficiency virus infection) Surgical History Status post cholecystectomy Status post laparoscopic appendectomy H/O fasciotomy S/P AAA (abdominal aortic aneurysm) repair S/P IVC filter Social History Social History Alcohol intake: never Patient Tobacco Use Status: Former Tobacco user Smoked in Last 30 Days: No Use of substances other than those prescribed or required for medical reasons: No Advance Directives: No Advance Directives Information Provided: No Do you have a plan to hurt others: No Plan Physical Exam ED Vital Signs: Vital Signs - 24 hr 12/25/23 19:06 12/25/23 22:58 12/26/23 04:00 Temperature 98.1 F 98.7 F 98.1 F Pulse Rate 94 88 74 Respiratory Rate 20 20 16 Blood Pressure 123/79 124/79 113/71 Pulse Oximetry 96 97 97 Oxygen Delivery Method Room Air Room Air Room Air 12/26/23 06:00 Temperature 97.9 F Pulse Rate 66 Respiratory Rate 16 Blood Pressure 109/70 Pulse Oximetry 96 Oxygen Delivery Method Room Air BMI result Body Mass Index 28.3 Vital signs were normal Exam: General: Awake, alert in no distress Head: Normocephalic, atraumatic EENT: PERRL, Lids normal, sclera normal, conjunctiva normal, nose normal , ears normal, throat without erythema or exudates Neck: Supple, no adenopathy Lung: breath sounds symmetric, no wheezing, rales or rhonchi Chest: symmetric movement, nontender Heart: regular rate and rhythm, normal S1, S2 no murmurs or rubs Abdomen: Abdomen appears to be distended, he does have normoactive bowel sounds, patient has moderate to severe left lower quadrant tenderness and moderate right lower quadrant tenderness, there has no rebound, no voluntary or involuntary guarding Back: no vertebral tenderness, no CVAT Extremities: no deformities, moves all extremities symmetrically Neuro: Awake, alert, oriented, normal speech, moves all extremities symmetrically Psych: Pleasant, cooperative Course Course Course Narrative: This is a rapid medical exam completed by Valerie GARCIA: Additional HPI, ROS, PE not included below will be deferred to primary provider. Nausea, vomiting, diarrhea, and generalized abdominal pain x 1 week. Pain has increased today. Hx AAA and hernia repair, HIV, DVT on anticoagulants Medical Decision Making Medical Decision Making [facility] Narrative: 48-year-old male with a history of popliteal artery aneurysm, AAA, DVT, diabetes, seizure, HIV, appendectomy, cholecystectomy, partial colectomy, diverticulitis, on fondaparinux/anticoagulation IV does who presents emergency department for evaluation of 1-1/2 weeks of left lower quadrant abdominal pain, bloated sensation, nausea, and vomiting. The patient states that he did have 2 episodes of loose diarrheal stool today. His pain was 10/10 and feel similar to when he has had diverticulitis in the past. Vital signs were normal. Physical exam did reveal moderate left lower quadrant tenderness and mild to moderate right lower quadrant tenderness, his abdomen does appear to be distended with normoactive bowel sounds. Differential diagnosis: ?Includes but is not limited to diverticulitis, pancreatitis, bowel obstruction, electrolyte abnormalities, anemia Following evaluation was ordered: CBC, CMP, lipase, PT/INR, urinalysis, CT scan of the abdomen pelvis with IV contrast and oral contrast Patient was initially treated with the following: Morphine 4 mg IV, Zofran 4 mg IV, Zosyn 4.5 g IV, normal saline x1 L Course: 02:43 My interpretation patient's laboratory evaluation is as follows: WBC was normal 5500. Anemia with an H&H of 12.9 and 39. Elevated AST, ALT and alk-phos at 52, 56 and 125. Urinalysis revealed a high specific gravity, positive for protein and glucose. Microscopic revealed 0-2 RBCs, 0-5 WBCs, no bacteria. 07:[address] scan of the abdomen pelvis with IV contrast did not reveal a clear etiology for the patient's pain. I did discuss this with the patient. Given his allergy profile, the patient was prescribed morphine 15 mg pills, 1 pill every 6 hours as needed for pain, dispense 10 pills. He was given printed and verbal instructions and discharged home. [place] prescription monitoring program was reviewed, the patient has received prescriptions for morphine for his pain in the past and recently had a prescription filled on 12/17/2023. Admission/Observation Consideration of admission/observation: Escalation of care including admission/observation considered Lab Data MDM Lab Attestation statement: I reviewed the patient's lab results. 12/25/23 23:02 12/25/23 23:55 Labs: Lab Results 12/25/23 12/25/23 12/25/23 Range/Units 23:02 23:22 23:55 WBC 5.5 (4.8-10.8) X10*3/uL RBC 4.48 L (4.60-5.80) X10*6/uL Hgb 12.9 L (14.0-18.0) g/dl Hct 39.2 L (42.0-52.0) % MCV 87.5 (80.0-98.0) fL MCH 28.8 (27.0-33.0) pg MCHC 32.9 (31.0-36.0) g/dl RDW 15.7 (11.0-16.0) % Plt Count 172 (160-400) X10*3/uL MPV 10.1 (9.4-12.4) fL Immature Gran % (Auto) 0.2 (0.0-0.4) % Neut % (Auto) 36.6 L (45-73) % Lymph % (Auto) 52.1 H (20-40) % Starr % (Auto) 9.7 (2-11) % Eos % (Auto) 0.7 (0-4) % Baso % (Auto) 0.7 (0-2) % Lymph # (Auto) 2.9 (1.2-4.9) X10*3/uL Starr # (Auto) 0.5 (0.1-1.2) X10*3/uL Eos # (Auto) 0.0 (0.0-0.4) X10*3/uL Baso # (Auto) 0.0 (0.0-0.2) X10*3/uL Abs Immat Gran (auto) 0.01 (0.00-0.03) X10*3/uL Absolute Neuts (auto) 2.0 (2.0-8.3) x10*3/uL Absolute Nucleated RBC 0.000 (0.0-0.012) X10*3/uL Nucleated RBC % (auto) 0.0 (0.0-0.2) /100WBC PT 12.5 (11.1-13.3) SEC INR 1.0 (0.9-1.1) Sodium 135 (135-145) mmol/L Potassium 3.3 (3.3-5.1) mmol/L Chloride 104 (96-108) mmol/L Carbon Dioxide 23 (22-29) mmol/L Anion Gap 11 L (12-20) BUN 10 (9-16) mg/dL Creatinine 1.21 (0.5-1.4) mg/dL Estim Creat Clear Calc 79.7 Estimated GFR > 60 Random Glucose 213 H (60-115) mg/dL Calcium 8.9 (8.4-10.2) mg/dL Total Bilirubin 0.5 (0.0-1.0) mg/dL AST 52 H (5-37) U/L ALT 56 H (0-40) U/L Alkaline Phosphatase 125 H (39-117) U/L Total Protein 8.4 H (6.5-8.0) g/dL Albumin 3.8 (3.5-5.0) g/dL Lipase 11 (8-78) U/L Urine Color Yellow Urine Appearance Clear Urine pH 6.0 (5.0-9.0) Ur Specific [place] >= 1.030 H (1.005-1.025) Urine Protein 30 (1+) H (Neg-Trace) mg/dL Urine Glucose (UA) 500 H (Negative) mg/dL Urine Ketones Trace (Negative) mg/dL Urine Blood Negative (Negative) Urine Nitrite Negative (Negative) Ur Leukocyte Esterase Negative (Negative) Urine RBC 0-2 (0-2) /HPF Urine WBC 0-5 (0-5) /HPF Ur Squamous Epith Cells 0-2 (0-2) /HPF Urine Bacteria None Seen (None Seen) Hyaline Casts 0-2 (0-2) /LPF Radiology Impression Discussion of test interpretation with radiology: I have reviewed the radiologist's reading. Radiologist Impression: CT abdomen pelvis w IV con IMPRESSION: 1. No evidence of bowel obstruction. 2. Mural prominence of the urinary bladder, which could be due to underdistention or cystitis. 3. Near-complete resolution of prior stranding adjacent to the anterior abdominal wall. 4. Hepatic steatosis. 5. Status post aortobiiliac stent graft. Abdominal aorta measures approximately 2.8 cm in diameter. Based on published guidelines in J Am Crystal Radiol 2013; 10(10):789-794 and J Vasc Surg. 2018; 67:2-77, the recommendation for an abdominal aorta with diameter 2.6-2.9 cm is follow-up every 5 years if the aorta that meets the criteria for AAA (>1.5 x proximal normal segment; no f/u if < 1.5 x proximal normal segment; no f/u for aorta < 2.6 cm). Dictated By: Guy Gonzales MD Independent Historian Clinical information obtained from an independent historian. History obtained from or confirmed by: Other (Partner) Chronic Conditions Patient?s care impacted by: Diabetes and Other (HIV disease,) Medications Administered Discontinued Medications Generic Name Dose Route Start Last Admin Trade Name Freq PRN Reason Stop Dose Admin Diatrizoate Meglum/Diatrizoate Sod 30 ml 12/26/23 02:50 12/26/23 02:52 Diatrizoate Meglumine, Sodium 30 Ml Solution PO 12/26/23 02:51 30 ml ONCE ONE Administration Hydromorphone HCl 1 mg 12/26/23 03:47 12/26/23 03:52 Hydromorphone Hcl 1 Mg/Ml Syringe IVPUSH 12/26/23 03:48 1 mg ONCE STA Administration Protocol Sodium Chloride 1,000 mls @ 999 mls/hr 12/26/23 02:23 12/26/23 04:17 Ns IV 12/26/23 03:23 Infused .Q1H1M STA Infusion Piperacillin Sod/Tazobactam 100 mls @ 200 mls/hr 12/26/23 02:23 12/26/23 03:25 Sod 4.5 gm/ Sodium Chloride IV 12/26/23 02:52 Infused ONCE ONE Infusion Iohexol 85 ml 12/26/23 05:03 12/26/23 05:04 Iohexol 350 Mg/Ml 100 Ml Infus..Btl IV 12/26/23 05:04 85 ml ONCE ONE Administration Morphine Sulfate 4 mg 12/26/23 02:23 12/26/23 02:42 Morphine Sulfate 4 Mg/Ml Cartridge IVPUSH 12/26/23 02:24 4 mg ONCE STA Administration Protocol Ondansetron HCl 4 mg 12/26/23 02:23 12/26/23 02:42 Ondansetron Hcl 4 Mg/2 Ml Vial IVPUSH 12/26/23 02:24 4 mg ONCE ONE Administration Discharge Plan Discharge Clinical Impression: Abdominal pain Qualifiers: Abdominal location: left lower quadrant Qualified Code(s): R10.32 - Left lower quadrant pain Patient Disposition: Home, Self-Care Instructions: Abdominal Pain (ED) Additional Instructions: Your blood work was unremarkable. The CT scan of your abdomen pelvis did not reveal a clear cause for your pain, there was no evidence of diverticulitis which is reassuring. Take morphine 15 mg pills, 1 pill every 4 hours as needed for pain. This medication will make you sleepy, do not drive or work while taking this medication. Take Zofran ODT 4 mg pills, 1 pill dissolved in your mouth every 8 hours as needed for nausea and vomiting. Morphine is a narcotic medication and can be addicting. If you are concerned about addiction you can ask the pharmacist for less pills or do not get this prescription filled. Follow-up with your doctor in 2 days. Please return to the emergency department if your symptoms get worse or if you develop any symptoms that are concerning to you. The patient left prior to getting his discharge instructions. Using the printing plate setter, I did contact the patient on the phone and informed him of his discharge instructions and the medications that I am prescribing for him. The patient understood this discussion and states that he will return if his pain gets worse and he will follow-up with his primary care doctor for re-evaluation. Prescriptions: New morphine 15 mg tablet 15 mg PO Q6H PRN (Reason: pain) Qty: 10 0RF Rx Instructions: The patient may ask for partial fill; Partial Fill upon patient request. ondansetron 4 mg tablet,disintegrating 4 mg PO Q6-8H PRN (Reason: nausea and vomiting) Qty: 14 0RF No Action metronidazole [Flagyl] 500 mg tablet 500 mg PO Q12H Qty: 14 0RF ciprofloxacin HCl 250 mg tablet 250 mg PO Q12H Qty: 14 0RF ondansetron HCl [Zofran] 4 mg tablet 4 mg PO Q8H PRN (Reason: nausea and vomiting) Qty: 10 0RF ondansetron 4 mg tablet,disintegrating 4 mg PO ONCE PRN (Reason: nausea and vomiting) Qty: 10 0RF amoxicillin 500 mg capsule 1,000 mg PO BID 5 Days Qty: 20 0RF azithromycin [Zithromax Z-Tye] 250 mg tablet See Rx Instructions .ROUTE .COMPLEX Qty: 6 0RF Rx Instructions: take 500 mg today (day 1), then 250 mg for 4 days (days 2-5) morphine 15 mg tablet 15 mg PO Q4-6H PRN (Reason: pain) Qty: 14 0RF Rx Instructions: Patient may request partial fill; Partial Fill upon patient request. hydrocortisone [Procto-Med HC] 2.5 % cream with perineal applicator 1 appl ID DAILY Qty: 30 0RF ibuprofen 600 mg tablet 600 mg PO Q8H PRN (Reason: pain) Qty: 15 0RF hydromorphone [Dilaudid] 2 mg tablet 2 mg PO Q8H PRN (Reason: pain) Qty: 10 0RF benzonatate 100 mg capsule 100 mg PO TID PRN (Reason: cough) Qty: 14 0RF morphine 15 mg tablet 15 mg PO TID PRN (Reason: pain) Qty: 10 0RF Rx Instructions: partial fill okay; Partial Fill upon patient request. ondansetron 4 mg tablet,disintegrating 4 mg PO Q8H PRN (Reason: nausea and vomiting) Qty: 20 0RF azithromycin 500 mg tablet 500 mg PO DAILY 2 Days Qty: 2 0RF Rx Instructions: start on day 2 of therapy fwficqnyh-ckpglu-uvtiihyo-scop [] 16.2-0.1037 -0.0194 mg tablet 1 tab PO BID PRN (Reason: abdominal pain) Qty: 10 0RF morphine 15 mg tablet 15 mg PO Q8H PRN (Reason: pain) Qty: 15 0RF Rx Instructions: Partial Fill upon patient request. dabigatran etexilate 75 mg capsule 75 mg PO BID Discharge Date/Time: 12/26/23 07:57 Print Language: Setswana
[2023-12-25 22:58] VITALS: BP 124/79; PULSE 88; RESP 20; TEMP 37.1; O2SAT 97
[2023-12-25 23:07] LABS: MANUAL DIFF FLAG NO
[2023-12-25 23:10] LABS: Basophils Percent Auto 0.7 % (0-2); Eosinophils Percent Auto 0.7 % (0-4); Hematocrit 39.2 % (42.0-52.0); Hemoglobin 12.9 g/dl (14.0-18.0); Imm Gran Abs Auto 0.01 X10*3/uL (0.00-0.03); Imm Gran Pct Auto 0.2 % (0.0-0.4); Lymphocytes Absolute Auto 2.9 X10*3/uL (1.2-4.9); Lymphocytes Percent Auto 52.1 % (20-40); Mean Corpuscular HGB Conc 32.9 g/dl (31.0-36.0); Mean Corpuscular Hemoglobin 28.8 pg (27.0-33.0); Mean Corpuscular Volume 87.5 fL (80.0-98.0); Mean Platelet Volume 10.1 fL (9.4-12.4); Monocytes Absolute Auto 0.5 X10*3/uL (0.1-1.2); Monocytes Percent Auto 9.7 % (2-11); Neutrophils Percent Auto 36.6 % (45-73); Platelet Count 172 X10*3/uL (160-400); Red Blood Count 4.48 X10*6/uL (4.60-5.80); Red Cell Distribution Width 15.7 % (11.0-16.0); White Blood Count 5.5 X10*3/uL (4.8-10.8)
[2023-12-25 23:16] LABS: Prothrombin Time 12.5 SEC (11.1-13.3)
[2023-12-25 23:30] LABS: Appearance Urine Clear; Color Urine Yellow; Glucose Urine UA 500 mg/dL (Negative); Leukocyte Esterase Urine Negative (Negative); Nitrite Urine Negative (Negative); Specific Gravity - Urine >= 1.030 (1.005-1.025); UMIC TRIGGER UACC YES; Urine Blood Negative (Negative); Urine Ketones Trace mg/dL (Negative); Urine Protein 30 (1+) mg/dL (Neg-Trace)
[2023-12-25 23:32] LABS: Bacteria Urine None Seen (None Seen); Hyaline Casts Urine 0-2 /LPF (0-2); RBC Urine 0-2 /HPF (0-2); Squamous Epithelial Cell Urine 0-2 /HPF (0-2); WBC Urine 0-5 /HPF (0-5)
[2023-12-26 00:26] LABS: Alanine Aminotransferase 56 U/L (0-40); Albumin Level 3.8 g/dL (3.5-5.0); Alkaline Phosphatase 125 U/L (39-117); Anion Gap 11 (12-20); Aspartate Amino Transferase 52 U/L (5-37); Bilirubin Total 0.5 mg/dL (0.0-1.0); Blood Urea Nitrogen 10 mg/dL (9-16); Calcium 8.9 mg/dL (8.4-10.2); Carbon Dioxide 23 mmol/L (22-29); Chloride 104 mmol/L (96-108); Creatinine Clr Calc Pharmacy 79.7; Estimated Glomerular Filt Rate > 60; Glucose Random 213 mg/dL (60-115); Lipase 11 U/L (8-78); Potassium 3.3 mmol/L (3.3-5.1); Sodium 135 mmol/L (135-145); Total Protein 8.4 g/dL (6.5-8.0)
[2023-12-26] MEDS: Piperacillin Sodium/Tazobactam 4.5 GM in 0.9 % Sodium Chloride 100 ML IV (02:42)
[2023-12-26] MEDS: ondansetron HCL 4 MG/2 ML VIAL IVPUSH (02:42)
[2023-12-26] MEDS: Morphine Sulfate 4 MG/ML CARTRIDGE IVPUSH (02:42)
[2023-12-26] MEDS: 0.9 % Sodium Chloride 1,000 ML 999 ML IV (02:43)
[2023-12-26] MEDS: Diatrizoate Meglumine, Sodium 30 ML SOLUTION PO (02:52)
[2023-12-26] MEDS: HYDROmorphone HCl 1 MG/ML SYRINGE IVPUSH (03:52)
[2023-12-26 04:00] VITALS: BP 113/71; PULSE 74; RESP 16; TEMP 36.7; O2SAT 97
[2023-12-26] MEDS: iohexoL 350 MG/ML 100 ML INFUS..BTL 85 ML IV (05:04)
[2023-12-26 06:00] VITALS: BP 109/70; PULSE 66; RESP 16; TEMP 36.6; O2SAT 96
[2023-12-26 07:48] VITALS: BP 109/70; PULSE 66; RESP 16; TEMP 36.6; O2SAT 96
--- NOTE | 2023-12-26 07:52 | PC.NURSE ---
0720 MD Cortez made aware pt wanted to be discharged. 0748- Pt left department, did not want to wait for official discharge or instructions. made aware.
== END 2023-12-26 07:57 | disposition home or self-care (01) ==
PROVIDERS: Emergency Provider Emergency Medicine Emergency Medical Services
DX: R10.32 Left lower quadrant pain (principal); E11.9 Type 2 diabetes mellitus without complications; Z21 Asymptomatic human immunodeficiency virus [HIV] infection status; I72.4 Aneurysm of artery of lower extremity; Z86.718 Personal history of other venous thrombosis and embolism; Z79.01 Long term (current) use of anticoagulants; Z95.828 Presence of other vascular implants and grafts; Z90.49 Acquired absence of other specified parts of digestive tract
CPT/HCPCS: 36415; 74177; 80053; 81001; 83690; 85025; 85610; 96361; 96365; 96375; 99285; J1170; J2270; J2405; J2543; Q9967

== ENCOUNTER 2024-04-08 15:19 | Emergency (ER) | payer MEDICARE, MEDICAID, SELFPAY ==
--- NOTE | ~2024-04-08 | US_ITS ---
EXAMINATION: US VENOUS ULTRASOUND WITH DOPPLER LOWER EXTREMITY, BILATERAL CLINICAL INFORMATION: Lower extremity pain, history of chronic DVT COMPARISON: 05/21/2023 TECHNIQUE: Ultrasound of the deep veins is performed from the hip to the calf with compression sonography and color and pulse Doppler assessment. Spectral analysis with color-flow imaging is performed. FINDINGS: RIGHT: There is normal venous compression and respiratory variation and augmented flow. The visualized common femoral vein, superficial femoral vein, profunda femoral vein, popliteal vein, and the trifurcation region shows no evidence of deep venous thrombosis. There is no significant popliteal fossa cyst. LEFT: There is normal venous compression and respiratory variation and augmented flow. The visualized common femoral vein, superficial femoral vein, profunda femoral vein, popliteal vein, and the trifurcation region shows no evidence of deep venous thrombosis. There is no significant popliteal fossa cyst. There are some scattered areas of wall thickening in the mid distal superficial femoral vein consistent with a history of prior deep venous thrombosis with chronic changes If the patient's symptoms persist, followup ultrasound in 5 days 7 days might be of value to exclude proximal propagation from a non-visualized calf vein. US/US venous duplex LE BI IMPRESSION: No DVT demonstrated in the bilateral lower extremity.
--- NOTE | ~2024-04-08 | US_ITS ---
EXAMINATION: Noninvasive assessment of the bilateral lower extremities with ARTERIAL DUPLEX CLINICAL INFORMATION: Peripheral vascular disease with history of occluded popliteal artery aneurysm, right superficial femoral artery to posterior tibial artery bypass graft TECHNIQUE: Duplex Doppler techniques with waveform analysis and measurement of velocities in the bilateral common femoral, profunda femoris, superficial femoral, popliteal and tibial arteries were performed. COMPARISON: Ultrasound from 04/06/2023 and CTA from 05/21/2023 FINDINGS: DIRECT DUPLEX DOPPLER FINDINGS: RIGHT LEG: Common femoral artery: 74.1 cm/s, phasicity: Triphasic Profunda femoris artery: 62 cm/s, phasicity: Monophasic Superficial femoral artery (proximal): 75.2 cm/s, phasicity: Triphasic Superficial femoral artery (mid): 88.0 cm/s, phasicity: Triphasic Superficial femoral artery (distal): 65.3 cm/s, phasicity: Triphasic Popliteal artery: Chronically occluded aneurysm measuring 2.6 x 2.9 cm. Bypass graft from the distal superficial femoral artery to the posterior tibial artery: Patent on color flow Doppler. Proximal anastomosis: 65 cm/s, triphasic Proximal bypass graft: 60 cm/s, triphasic Mid bypass graft 84 cm/s, triphasic Distal bypass graft: 102 cm/s, triphasic Distal anastomosis: 36 cm/s, triphasic Posterior tibial artery: 80.7 cm/s, phasicity: Triphasic Peroneal artery: 18.1 cm/s, phasicity: Triphasic Anterior tibial artery: 44.2 cm/s, phasicity: Triphasic Dorsalis pedis artery: 41.4 cm/s, phasicity:Triphasic LEFT LEG: Common femoral artery: 111 cm/s, phasicity: Triphasic Profunda femoris artery: 63.3 cm/s, phasicity: Triphasic Superficial femoral artery (proximal): 80.8 cm/s, phasicity: Triphasic Superficial femoral artery (mid): 103 cm/s, phasicity: Triphasic Superficial femoral artery (distal): 68.3 cm/s, phasicity: Triphasic Popliteal artery: 65.9 cm/s, phasicity: Triphasic Posterior tibial artery: 71 cm/s, phasicity: Triphasic Peroneal artery: 34.8 cm/s, phasicity: Triphasic Anterior tibial artery: 60 cm/s, phasicity: Triphasic Dorsalis pedis artery: 23.1 cm/s, phasicity: Biphasic US/US arterial duplex LE BI IMPRESSION: Right leg: Chronically occluded right popliteal artery aneurysm which is stable in size. Distal superficial femoral artery to posterior tibial artery bypass graft is widely patent. Patent three-vessel runoff below the knee Left leg: Widely patent arterial flow throughout the left lower extremity
--- NOTE | ~2024-04-08 | CT_ITS ---
EXAMINATION: CT ABDOMEN AND PELVIS WITH CONTRAST CLINICAL INFORMATION: Abdominal pain COMPARISON: 12/26/2023 TECHNIQUE: Multidetector volumetric images were obtained from the superior aspect of the liver through the pubic symphysis following administration 85 mL of Omnipaque 350 intravenous contrast. Sagittal and coronal reformatted images were obtained on the technologist's workstation. Oral contrast: No This CT examination was performed using dose optimization techniques as appropriate, variously including the following: *Automated exposure control *Adjustment of mA and/or kV according to patient size (this includes techniques or standardized protocols for targeted exams where dose is matched to indication/reason for exam; i.e. extremities or head) *Use of iterative reconstruction technique DLP: 570 mGy-cm FINDINGS: LUNG BASES: Unremarkable. ABDOMINAL AND PELVIC WALL: Postsurgical changes related to ventral abdominal hernia repair. LIVER AND BILIARY TREE: Hepatic steatosis. No focal hepatic lesion or intrahepatic biliary ductal dilatation. GALLBLADDER: Unremarkable. PANCREAS: Unremarkable. SPLEEN: Unremarkable. ADRENAL GLANDS: Unremarkable. KIDNEYS AND URETERS: Unremarkable. GASTROINTESTINAL TRACT: Distal rectosigmoid anastomosis is patent. Appendix is not visualized and may be surgically absent.Right sided pericecal surgical clips are noted. VASCULAR: Aortobiiliac vascular stent is noted. Aneurysmal dilation of the infrarenal abdominal aorta measures 2.7 cm. LYMPH NODES/PERITONEUM: No lymphadenopathy. FREE FLUID: None. BLADDER: Unremarkable. PELVIC VISCERA: Prostate is enlarged measuring 4.4 x 4.3 cm. OSSEOUS STRUCTURES: Unremarkable. CT/CT abdomen pelvis w IV con IMPRESSION: * No acute intra-abdominal abnormality. * Hepatic steatosis. Aneurysmal dilation of the infrarenal abdominal aorta measures 2.7 cm. Based on published guidelines in J Am Crystal Radiol 2013; 10(10):789-794 and J Vasc Surg. 2018; 67:2-77, the recommendation for an abdominal aorta with diameter 2.6-2.9 cm is follow-up every 5 years if the aorta that meets the criteria for AAA (>1.5 x proximal normal segment; no f/u if < 1.5 x proximal normal segment; no f/u for aorta < 2.6 cm). *
[2024-04-08 15:23] VITALS: BP 106/73; PULSE 84; RESP 18; TEMP 36.6; O2SAT 98; BMI 27.6
--- NOTE | 2024-04-08 15:24 | ED.ABDPAIN ---
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 He has had numerous presentations with similar complaints. However he does have a known AAA status post endovascular repair, he reports his pain radiates into both lower extremities He denies any fevers, chills. He does endorse nausea Patient also reports a history of diverticulitis but denies diarrhea. He reports that due to the pain he has been having dizziness He rates his pain is 8/10 and constant Related Data Home Medications ?Medication ?Instructions ?Recorded ?Confirmed dabigatran etexilate 75 mg capsule 75 mg PO BID 06/13/21 07/14/21 Previous Rx's ?Medication ?Instructions ?Recorded ciprofloxacin HCl 250 mg tablet 250 mg PO Q12H #14 tabs 08/16/20 metronidazole 500 mg tablet 500 mg PO Q12H #14 tabs 08/16/20 (Flagyl) ondansetron HCl 4 mg tablet 4 mg PO Q8H PRN nausea and 08/16/20 (Zofran) vomiting #10 tabs hydrocortisone 2.5 % topical cream 1 appl DE DAILY #30 grams 05/26/21 with perineal applicator (Procto-Med HC) ibuprofen 600 mg tablet 600 mg PO Q8H PRN pain #15 tabs 05/26/21 hydromorphone 2 mg tablet 2 mg PO Q8H PRN pain #10 tabs 06/22/21 (Dilaudid) ondansetron 4 mg disintegrating 4 mg PO ONCE PRN nausea and 01/26/22 tablet vomiting #10 tabs amoxicillin 500 mg capsule 1,000 mg (2 x 500 mg) PO BID 5 10/08/22 days #20 caps azithromycin 250 mg tablet See Rx Instructions PO .COMPLEX #6 10/08/22 (Zithromax Z-Tye) tabs morphine 15 mg immediate release 15 mg PO Q4-6H PRN pain #14 tabs 10/08/22 tablet benzonatate 100 mg capsule 100 mg PO TID PRN cough #14 caps 10/26/22 morphine 15 mg immediate release 15 mg PO TID PRN pain #10 tabs 04/06/23 tablet ondansetron 4 mg disintegrating 4 mg PO Q8H PRN nausea and 04/06/23 tablet vomiting #20 tabs hxhylryxz-icjjietsk-vxeyimqh-scop 1 tab PO BID PRN abdominal pain 05/07/23 16.2 mg-0.1037 mg-0.0194 mg tablet #10 tabs () morphine 15 mg immediate release 15 mg PO Q8H PRN pain #15 tabs 09/25/23 tablet azithromycin 500 mg tablet 500 mg PO DAILY 2 days #2 tabs 10/12/23 morphine 15 mg immediate release 15 mg PO Q6H PRN pain #10 tabs 12/26/23 tablet ondansetron 4 mg disintegrating 4 mg PO Q6-8H PRN nausea and 12/26/23 tablet vomiting #14 tabs Allergies Allergy/AdvReac Type Severity Reaction Status Date / Time influenza virus vaccine, Allergy Severe GUILLIAN Verified 04/08/24 15:25 specific BARRE HX. [FLU VACCINE] tramadol [TRAMADOL] Allergy Severe SEIZURES Verified 04/08/24 15:25 acetaminophen [From PERCOCET] Allergy Intermediate ITCHING Verified 04/08/24 15:25 carbamazepine [From TEGRETOL] Allergy Intermediate HALLUCINATI Verified 04/08/24 15:25 ONS lamotrigine [From LAMICTAL] Allergy Intermediate ITCHING Verified 04/08/24 15:25 metoclopramide [From REGLAN] Allergy Intermediate ITCHY Verified 04/08/24 15:25 oxycodone [From PERCOCET] Allergy Intermediate ITCHING Verified 04/08/24 15:25 SEAFOOD Allergy Severe ANAPHYLAXIS Uncoded 08/01/23 12:57 Review of Systems Constitutional: Denies body ache(s), Denies chills, Denies fever(s) and Denies headache(s) Reports dizziness, Denies headache(s) and Denies sore throat Cardiovascular: Denies chest pain Gastrointestinal: Reports abdominal pain, Reports nausea and Denies vomiting Musculoskeletal: Denies back pain Skin/Breast: Denies rash Reports dizziness and Denies headache(s) [facility] Past Medical History Medical History Left sided abdominal pain COVID-19 DVT (deep venous thrombosis) Diabetes Seizure disorder HIV (human immunodeficiency virus infection) Surgical History Status post cholecystectomy Status post laparoscopic appendectomy H/O fasciotomy S/P AAA (abdominal aortic aneurysm) repair S/P IVC filter Social History Social History Alcohol intake: never Patient Tobacco Use Status: Former Tobacco user Smoked in Last 30 Days: No Use of substances other than those prescribed or required for medical reasons: No Advance Directives: No Advance Directives Information Provided: No Do you have a plan to hurt others: No Plan Physical Exam ED Vital Signs: Vital Signs - 24 hr 04/08/24 15:23 04/08/24 19:48 04/08/24 20:27 Temperature 97.9 F 98.2 F 98.5 F Pulse Rate 84 71 72 Respiratory Rate 18 20 17 Blood Pressure 106/73 118/75 123/80 Pulse Oximetry 98 96 97 Oxygen Delivery Method Room Air Room Air Room Air 04/08/24 22:00 Temperature 98.0 F Pulse Rate 65 Respiratory Rate 15 Blood Pressure 106/73 Pulse Oximetry 95 Oxygen Delivery Method Room Air BMI result Body Mass Index 27.6 Const General: healthy appearing, comfortable, no acute distress, alert and awake Nutritional Appearance: well nourished Orientation/consciousness: patient oriented x3 HENMT Head: Yes normocephalic and Yes atraumatic Eyes Eyelids: Yes eyelids normal Conjunctivae: conjunctivae normal Sclerae: sclerae normal Corneas: corneas normal Pupils: Equal, round and reactive pupils present EOM: EOMs intact bilaterally Neck Neck: Yes full ROM Resp Effort & Inspection: normal respiratory effort, able to speak in complete sentences and not labored Cardio Rate: regular rate Rhythm: regular rhythm GI Inspection: No distended Palpation (GI): Soft to palpation, not firm, Tenderness to palpation present (GI) in the LLQ and periumbilically, no guarding and not rigid Skin General skin exam: elasticity normal Neuro General: patient oriented x3 Cranial nerves: Yes Equal, round and reactive pupils present and Yes Bilaterally intact EOM present Cognition (Neuro): normal cognition Extrem Other: Patient has surgical scars to both lower extremities below the knee from previous thrombectomy. He has a right thigh scar from his previous bypass graft. The lower extremities themselves are warm, dry well perfused no discoloration. Course Course Course Narrative: This is a Rapid Medical Examination (RME) performed by Willie Perez PA-C in triage. Full HPI, ROS, assessment and treatment plan per primary provider in the Main ED. 48-year-old male with history of AAA status post repair, DVT no longer on anticoagulation, diabetes, seizures, HIV who presents to the ER for evaluation of central abdominal pain and nausea for the last 2-3 days. He is also dizzy and reporting bilateral lower extremity pain. He has swelling in the LLE 2 days ago that has since resolved. Legs are warm, no significant swelling noted. he reports diffuse tenderness. Plan: labs, venous and arterial studies of his legs given his history, imaging of abd deferred to primary provider Reevaluation(s) Reevaluation #1: Patient's workup largely unremarkable, I discussed this with the patient, he does not appear to have any acute vascular issues, no infectious process or surgical issues. We will discharge the patient home and he will follow-up with his outpatient providers Time: 22:11 Medical Decision Making Medical Decision Making [facility] Narrative: 48-year-old male with complicated past medical history presents for evaluation abdominal pain radiating to his legs. His initial workup in triage shows no significant lab abnormalities. He had both DVT ultrasounds and arterial ultrasounds of each lower extremity showing patent flow and no evidence of acute DVTs.. His bypass graft of the right lower extremity appears to be functioning well and is patent. The patient is well-appearing, there is no evidence of acute ischemic limb to either lower extremity. Plan for CT scan of the abdomen pelvis to evaluate for diverticulitis. Differential Diagnosis Differential Diagnoses: The differential diagnosis associated with the presentation includes Acute abdominal pain Constipation Diverticulitis AAA Admission/Observation Consideration of admission/observation: Escalation of care including admission/observation considered Lab Data [facility] Lab Attestation statement: I reviewed the patient's lab results. No leukocytosis. The patient does have a stable mild normocytic anemia. He has no significant left shift. Chemistries are significant for a chloride just above normal at 109, a carbon dioxide level of 19 which may be related to hyperventilation due to discomfort, otherwise renal function within normal limits, random glucose of 174 the patient is a known diabetic. The patient also has a stable transaminitis 04/08/24 15:58 04/08/24 15:58 Labs: Lab Results 04/08/24 04/08/24 Range/Units 15:58 20:09 WBC 4.9 (4.8-10.8) X10*3/uL RBC 4.58 L (4.60-5.80) X10*6/uL Hgb 13.1 L (14.0-18.0) g/dl Hct 41.1 L (42.0-52.0) % MCV 89.7 (80.0-98.0) fL MCH 28.6 (27.0-33.0) pg MCHC 31.9 (31.0-36.0) g/dl RDW 15.2 (11.0-16.0) % Plt Count 165 (160-400) X10*3/uL MPV 9.7 (9.4-12.4) fL Immature Gran % (Auto) 0.0 (0.0-0.4) % Neut % (Auto) 39.6 L (45-73) % Lymph % (Auto) 48.2 H (20-40) % [place] % (Auto) 10.8 (2-11) % Eos % (Auto) 0.8 (0-4) % Baso % (Auto) 0.6 (0-2) % Lymph # (Auto) 2.4 (1.2-4.9) X10*3/uL [place] # (Auto) 0.5 (0.1-1.2) X10*3/uL Eos # (Auto) 0.0 (0.0-0.4) X10*3/uL Baso # (Auto) 0.0 (0.0-0.2) X10*3/uL Abs Immat Gran (auto) 0.00 (0.00-0.03) X10*3/uL Absolute Neuts (auto) 1.9 L (2.0-8.3) x10*3/uL Absolute Nucleated RBC 0.000 (0.0-0.012) X10*3/uL Nucleated RBC % (auto) 0.0 (0.0-0.2) /100WBC Sodium 137 (135-145) mmol/L Potassium 3.7 (3.3-5.1) mmol/L Chloride 109 H (96-108) mmol/L Carbon Dioxide 19 L (22-29) mmol/L Anion Gap 13 (12-20) BUN 8 L (9-16) mg/dL Creatinine 1.28 (0.5-1.4) mg/dL Estim Creat Clear Calc 69.0 Estimated GFR 59 Random Glucose 174 H (60-115) mg/dL Calcium 9.4 (8.4-10.2) mg/dL Magnesium 2.1 (1.6-2.6) mg/dL Total Bilirubin 0.4 (0.0-1.0) mg/dL Direct Bilirubin 0.1 (0.0-0.5) mg/dL AST 40 H (5-37) U/L ALT 45 H (0-40) U/L Alkaline Phosphatase 137 H (39-117) U/L Total Protein 8.9 H (6.5-8.0) g/dL Albumin 4.3 (3.5-5.0) g/dL Lipase 18 (8-78) U/L Urine Color Yellow Urine Appearance Clear Urine pH 6.0 (5.0-9.0) Ur Specific [place] >= 1.030 H (1.005-1.025) Urine Protein Negative (Neg-Trace) mg/dL Urine Glucose (UA) >=1000 H (Negative) mg/dL Urine Ketones Negative (Negative) mg/dL Urine Blood Negative (Negative) Urine Nitrite Negative (Negative) Ur Leukocyte Esterase Negative (Negative) Urine RBC 0-2 (0-2) /HPF Urine WBC 0-5 (0-5) /HPF Ur Squamous Epith Cells 0-2 (0-2) /HPF Urine Bacteria None Seen (None Seen) Hyaline Casts 0-2 (0-2) /LPF Radiology Impression Discussion of test interpretation with radiology: I have reviewed the radiologist's reading. Radiologist Impression: CT/CT abdomen pelvis w IV con IMPRESSION: * No acute intra-abdominal abnormality. * Hepatic steatosis. Aneurysmal dilation of the infrarenal abdominal aorta measures 2.7 cm. Based on published guidelines in J Am Crystal Radiol 2013; 10(10):789-794 and J Vasc Surg. 2018; 67:2-77, the recommendation for an abdominal aorta with diameter 2.6-2.9 cm is follow-up every 5 years if the aorta that meets the criteria for AAA (>1.5 x proximal normal segment; no f/u if < 1.5 x proximal normal segment; no f/u for aorta < 2.6 cm). * Medications Administered Discontinued Medications Generic Name Dose Route Start Last Admin Trade Name Freq PRN Reason Stop Dose Admin Sodium Chloride 1,000 mls @ 999 mls/hr 04/08/24 20:00 04/08/24 22:19 Ns IV 04/08/24 21:00 Infused .Q1H1M HAYLEY Infusion Iohexol 85 ml 04/08/24 20:35 04/08/24 20:36 Iohexol 350 Mg/Ml 100 Ml Infus..Btl IV 04/08/24 20:36 85 ml ONCE ONE Administration Morphine Sulfate 4 mg 04/08/24 19:57 04/08/24 20:18 Morphine Sulfate 4 Mg/Ml Cartridge IVPUSH 04/08/24 19:58 4 mg ONCE ONE Administration Protocol Ondansetron HCl 4 mg 04/08/24 19:57 04/08/24 20:18 Ondansetron Hcl 4 Mg/2 Ml Vial IVPUSH 04/08/24 19:58 4 mg ONCE ONE Administration Discharge Plan Discharge Clinical Impression: Left sided abdominal pain Patient Disposition: Home, Self-Care Instructions: Acute Abdominal Pain (ED) Additional Instructions: Your workup in the ER today was reassuring. Your ultrasound showed that the blood flow in your legs was not compromised. You have no evidence of new DVTs. The CT scan of your abdomen and pelvis did not show any acute findings to explain your pain Follow-up with your primary doctor, return for new or worsening symptoms Prescriptions: No Action metronidazole [Flagyl] 500 mg tablet 500 mg PO Q12H Qty: 14 0RF ciprofloxacin HCl 250 mg tablet 250 mg PO Q12H Qty: 14 0RF ondansetron HCl [Zofran] 4 mg tablet 4 mg PO Q8H PRN (Reason: nausea and vomiting) Qty: 10 0RF ondansetron 4 mg tablet,disintegrating 4 mg PO ONCE PRN (Reason: nausea and vomiting) Qty: 10 0RF amoxicillin 500 mg capsule 1,000 mg PO BID 5 Days Qty: 20 0RF azithromycin [Zithromax Z-Tye] 250 mg tablet See Rx Instructions .ROUTE .COMPLEX Qty: 6 0RF Rx Instructions: take 500 mg today (day 1), then 250 mg for 4 days (days 2-5) morphine 15 mg tablet 15 mg PO Q4-6H PRN (Reason: pain) Qty: 14 0RF Rx Instructions: Patient may request partial fill; Partial Fill upon patient request. hydrocortisone [Procto-Med HC] 2.5 % cream with perineal applicator 1 appl DE DAILY Qty: 30 0RF ibuprofen 600 mg tablet 600 mg PO Q8H PRN (Reason: pain) Qty: 15 0RF hydromorphone [Dilaudid] 2 mg tablet 2 mg PO Q8H PRN (Reason: pain) Qty: 10 0RF benzonatate 100 mg capsule 100 mg PO TID PRN (Reason: cough) Qty: 14 0RF morphine 15 mg tablet 15 mg PO TID PRN (Reason: pain) Qty: 10 0RF Rx Instructions: partial fill okay; Partial Fill upon patient request. ondansetron 4 mg tablet,disintegrating 4 mg PO Q8H PRN (Reason: nausea and vomiting) Qty: 20 0RF azithromycin 500 mg tablet 500 mg PO DAILY 2 Days Qty: 2 0RF Rx Instructions: start on day 2 of therapy yviyqoqcm-nypbix-atmrgsxt-scop [] 16.2-0.1037 -0.0194 mg tablet 1 tab PO BID PRN (Reason: abdominal pain) Qty: 10 0RF morphine 15 mg tablet 15 mg PO Q8H PRN (Reason: pain) Qty: 15 0RF Rx Instructions: Partial Fill upon patient request. morphine 15 mg tablet 15 mg PO Q6H PRN (Reason: pain) Qty: 10 0RF Rx Instructions: The patient may ask for partial fill; Partial Fill upon patient request. ondansetron 4 mg tablet,disintegrating 4 mg PO Q6-8H PRN (Reason: nausea and vomiting) Qty: 14 0RF dabigatran etexilate 75 mg capsule 75 mg PO BID Print Language: [place]
[2024-04-08 16:03] LABS: MANUAL DIFF FLAG NO
[2024-04-08 16:05] LABS: Basophils Percent Auto 0.6 % (0-2); Eosinophils Percent Auto 0.8 % (0-4); Hematocrit 41.1 % (42.0-52.0); Hemoglobin 13.1 g/dl (14.0-18.0); Lymphocytes Absolute Auto 2.4 X10*3/uL (1.2-4.9); Lymphocytes Percent Auto 48.2 % (20-40); Mean Corpuscular HGB Conc 31.9 g/dl (31.0-36.0); Mean Corpuscular Hemoglobin 28.6 pg (27.0-33.0); Mean Corpuscular Volume 89.7 fL (80.0-98.0); Mean Platelet Volume 9.7 fL (9.4-12.4); Monocytes Absolute Auto 0.5 X10*3/uL (0.1-1.2); Monocytes Percent Auto 10.8 % (2-11); Neutrophils Absolute Auto 1.9 x10*3/uL (2.0-8.3); Neutrophils Percent Auto 39.6 % (45-73); Platelet Count 165 X10*3/uL (160-400); Red Blood Count 4.58 X10*6/uL (4.60-5.80); Red Cell Distribution Width 15.2 % (11.0-16.0); White Blood Count 4.9 X10*3/uL (4.8-10.8)
[2024-04-08 16:18] LABS: Alanine Aminotransferase 45 U/L (0-40); Albumin Level 4.3 g/dL (3.5-5.0); Alkaline Phosphatase 137 U/L (39-117); Anion Gap 13 (12-20); Aspartate Amino Transferase 40 U/L (5-37); Bilirubin Direct 0.1 mg/dL (0.0-0.5); Bilirubin Total 0.4 mg/dL (0.0-1.0); Blood Urea Nitrogen 8 mg/dL (9-16); Calcium 9.4 mg/dL (8.4-10.2); Carbon Dioxide 19 mmol/L (22-29); Chloride 109 mmol/L (96-108); Estimated Glomerular Filt Rate 59; Glucose Random 174 mg/dL (60-115); Lipase 18 U/L (8-78); Magnesium 2.1 mg/dL (1.6-2.6); Potassium 3.7 mmol/L (3.3-5.1); Sodium 137 mmol/L (135-145); Total Protein 8.9 g/dL (6.5-8.0)
[2024-04-08 19:48] VITALS: BP 118/75; PULSE 71; RESP 20; TEMP 36.8; O2SAT 96
[2024-04-08] MEDS: 0.9 % Sodium Chloride 1,000 ML 999 ML IV (20:16)
[2024-04-08 20:18] LABS: Appearance Urine Clear; Color Urine Yellow; Glucose Urine UA >=1000 mg/dL (Negative); Leukocyte Esterase Urine Negative (Negative); Nitrite Urine Negative (Negative); Specific Gravity - Urine >= 1.030 (1.005-1.025); UMIC TRIGGER UACC YES; Urine Blood Negative (Negative); Urine Ketones Negative (Negative); Urine Protein Negative (Neg-Trace)
[2024-04-08] MEDS: Morphine Sulfate 4 MG/ML CARTRIDGE IVPUSH (20:18)
[2024-04-08] MEDS: ondansetron HCL 4 MG/2 ML VIAL IVPUSH (20:18)
[2024-04-08 20:27] VITALS: BP 123/80; PULSE 72; RESP 17; TEMP 36.9; O2SAT 97
[2024-04-08 20:28] LABS: Bacteria Urine None Seen (None Seen); Hyaline Casts Urine 0-2 /LPF (0-2); RBC Urine 0-2 /HPF (0-2); Squamous Epithelial Cell Urine 0-2 /HPF (0-2); WBC Urine 0-5 /HPF (0-5)
[2024-04-08] MEDS: iohexoL 350 MG/ML 100 ML INFUS..BTL 85 ML IV (20:36)
[2024-04-08 22:00] VITALS: BP 106/73; PULSE 65; RESP 15; TEMP 36.7; O2SAT 95
[2024-04-08 22:33] VITALS: BP 106/80; PULSE 70; RESP 18; TEMP 36.6; O2SAT 97
== END 2024-04-08 22:41 | disposition home or self-care (01) ==
PROVIDERS: Physician Assistant; Emergency Provider Emergency Medicine
DX: R10.32 Left lower quadrant pain (principal); M79.605 Pain in left leg; M79.604 Pain in right leg; B20 Human immunodeficiency virus [HIV] disease; E11.9 Type 2 diabetes mellitus without complications; Z86.718 Personal history of other venous thrombosis and embolism; Z87.891 Personal history of nicotine dependence
CPT/HCPCS: 36415; 74177; 80048; 80076; 81001; 83690; 83735; 85025; 93925; 93970; 96361; 96374; 96375; 99284; J2270; J2405; Q9967

== ENCOUNTER 2024-06-04 10:30 | Emergency (ER) | payer MEDICARE, MEDICAID, SELFPAY ==
[2024-06-04 10:49] VITALS: BP 124/76; PULSE 92; RESP 17; TEMP 36.6; O2SAT 97; BMI 27.0
[2024-06-04 12:22] LABS: MANUAL DIFF FLAG NO
[2024-06-04 12:24] LABS: Basophils Percent Auto 0.4 % (0-2); Eosinophils Percent Auto 0.4 % (0-4); Hematocrit 44.7 % (42.0-52.0); Hemoglobin 14.5 g/dl (14.0-18.0); Imm Gran Abs Auto 0.01 X10*3/uL (0.00-0.03); Imm Gran Pct Auto 0.2 % (0.0-0.4); Lymphocytes Absolute Auto 2.1 X10*3/uL (1.2-4.9); Lymphocytes Percent Auto 47.4 % (20-40); Mean Corpuscular HGB Conc 32.4 g/dl (31.0-36.0); Mean Corpuscular Hemoglobin 28.9 pg (27.0-33.0); Mean Corpuscular Volume 89.2 fL (80.0-98.0); Mean Platelet Volume 9.2 fL (9.4-12.4); Monocytes Absolute Auto 0.4 X10*3/uL (0.1-1.2); Monocytes Percent Auto 9.1 % (2-11); Neutrophils Absolute Auto 1.9 x10*3/uL (2.0-8.3); Neutrophils Percent Auto 42.5 % (45-73); Platelet Count 151 X10*3/uL (160-400); Red Blood Count 5.01 X10*6/uL (4.60-5.80); Red Cell Distribution Width 15.6 % (11.0-16.0); White Blood Count 4.5 X10*3/uL (4.8-10.8)
[2024-06-04 12:41] LABS: Alanine Aminotransferase 33 U/L (0-40); Alkaline Phosphatase 135 U/L (39-117); Anion Gap 11 (12-20); Aspartate Amino Transferase 34 U/L (5-37); Bilirubin Direct 0.1 mg/dL (0.0-0.5); Bilirubin Total 0.4 mg/dL (0.0-1.0); Blood Urea Nitrogen 10 mg/dL (9-16); Calcium 9.1 mg/dL (8.4-10.2); Carbon Dioxide 25 mmol/L (22-29); Chloride 108 mmol/L (96-108); Creatinine Clr Calc Pharmacy 77.5; Estimated Glomerular Filt Rate > 60; Glucose Random 146 mg/dL (60-115); Lipase 13 U/L (8-78); Potassium 3.9 mmol/L (3.3-5.1); Sodium 140 mmol/L (135-145); Total Protein 8.8 g/dL (6.5-8.0)
[2024-06-04 12:48] LABS: Appearance Urine Clear; Color Urine Yellow; Glucose Urine UA >=1000 mg/dL (Negative); Leukocyte Esterase Urine Negative (Negative); Nitrite Urine Negative (Negative); PH 6.5 (5.0-9.0); Specific Gravity - Urine >= 1.030 (1.005-1.025); UMIC TRIGGER UACC YES; Urine Blood Negative (Negative); Urine Ketones Negative (Negative); Urine Protein Negative (Neg-Trace)
[2024-06-04 12:53] LABS: Bacteria Urine None Seen (None Seen); Hyaline Casts Urine 0-2 /LPF (0-2); RBC Urine 0-2 /HPF (0-2); Squamous Epithelial Cell Urine 0-2 /HPF (0-2); WBC Urine 0-5 /HPF (0-5)
== END 2024-06-04 19:49 | disposition left against medical advice (07) ==
LOC: HO.ED 19:28
PROVIDERS: Emergency Provider Emergency Medicine
DX: R10.9 Unspecified abdominal pain (principal); R11.10 Vomiting, unspecified
CPT/HCPCS: 36415; 80048; 80076; 81001; 83690; 85025; 99282; 99283

== ENCOUNTER 2024-06-06 11:54 | Emergency (ER) | payer MEDICARE, MEDICAID, SELFPAY ==
--- NOTE | ~2024-06-06 | CT_ITS ---
EXAMINATION: CT ABDOMEN AND PELVIS WITH CONTRAST CLINICAL INFORMATION: 48-year-old male with left lower quadrant abdominal pain, nausea and diarrhea with vomiting, history of diverticulitis. COMPARISON: April 08, 2024 TECHNIQUE: Multidetector volumetric images were obtained from the superior aspect of the liver through the pubic symphysis following administration 85 mL of Omnipaque 350 intravenous contrast. Sagittal and coronal reformatted images were obtained on the technologist's workstation. Oral contrast: No This CT examination was performed using dose optimization techniques as appropriate, variously including the following: *Automated exposure control *Adjustment of mA and/or kV according to patient size (this includes techniques or standardized protocols for targeted exams where dose is matched to indication/reason for exam; i.e. extremities or head) *Use of iterative reconstruction technique DLP: 521 mGy-cm FINDINGS: LUNG BASES: The visualized lung bases are unremarkable. LIVER, GALLBLADDER, AND BILIARY TREE: Liver is of low attenuation due to hepatic steatosis, without intrahepatic masses or ductal dilatation seen. The liver is no enlarged gallbladder is surgically absent. CBD is not dilated. PANCREAS: Unremarkable. SPLEEN: Calcified granulomas spread through the spleen. Spleen is not enlarged. ADRENAL GLANDS: Unremarkable. KIDNEYS AND URETERS: The kidneys are normal in size, shape, and attenuation. No hydronephrosis, hydroureter, or calculi seen. No perinephric stranding. BLADDER: Unremarkable. GASTROINTESTINAL TRACT: Appendix is surgically absent. Loops of colon revealed changes of diverticulosis without signs of diverticulitis in the sigmoid colon small bowel loops are not dilated. There is distal sigmoid anastomosis, well functioning. ABDOMINAL WALL: Patient is status post abdominal hernia repair with mesh LYMPH NODES: Normal. VASCULAR: Patient is status post repair of abdominal aortic aneurysm with aortobiiliac graft aortic approximately just below the celiac artery measured 2.2 cm, infrarenal in its measured 2.5 cm PELVIC VISCERA: Unremarkable. OSSEOUS STRUCTURES: Unremarkable. CT/CT abdomen pelvis w IV con IMPRESSION: 1. No explanation for abdominal pain. 2. Diverticulosis without diverticulitis. 3. Hepatic steatosis. 4. Status post sigmoidectomy, abdominal aortic aneurysm repair, appendectomy and cholecystectomy. Fleischner guidelines were followed. Electronically signed by: Tadeo Nath MD 06/06/2024 07:05 PM EDT
--- NOTE | ~2024-06-06 | XR_ITS ---
EXAMINATION: XR ANKLE, LEFT CLINICAL INFORMATION: Posterior pain. Twisting injury. COMPARISON: None available. TECHNIQUE: 3 views of the left ankle (AP, lateral, and oblique views). FINDINGS: No fracture or dislocation of the left ankle. The ankle mortise is intact. Small enthesophyte formation at the insertion of the Achilles tendon. Small heel spur. No lytic or sclerotic osseous lesions. Mild soft tissue edema along the medial malleolus. No focal soft tissue swelling. No radiopaque foreign bodies. XR/XR ankle LT min 3V IMPRESSION: No evidence of acute fracture or dislocation of the left ankle. Mild soft tissue edema along the medial malleolus. Electronically signed by: Sagar Allen DO 06/06/2024 02:37 PM EDT
[2024-06-06 11:55] VITALS: BP 117/70; PULSE 88; RESP 16; TEMP 36.8; O2SAT 98; BMI 26.4
--- NOTE | 2024-06-06 11:59 | ED_ITS ---
HPI - General Adult General Chief complaint: Abdominal Pain Stated complaint: Abd pain Time Seen by Provider: 06/06/24 15:29 Source: patient, family and medical interpreter (Renato) Limitations: language barrier History of Present Illness HPI narrative: 48-year-old male who has a history of HIV, DVT, no longer anticoagulated, diverticulitis status post resection, history of AAA repair, fem-pop bypass, presents for evaluation of approximately 10 day history of abdominal pain. Patient states he began with dull, achy pain to the left lower part of his abdomen. It has been progressively worsening during this time. Patient states symptoms began while he was in [place], and he just arrived on June 02. His symptoms have progressively worsened, including nausea and vomiting. He has tried Zofran with minimal relief. He has had decreased p.o. intake. Patient states he has had loose bowels and has had hematochezia. No melena. He is not anticoagulated. Patient has otherwise been feeling well. In addition the patient is complaining of left ankle pain. Patient states he was walking when he twisted, slipped and fell injuring the left ankle. He has been able to ambulate since that time. Denies any previous injury. He has not tried any medication for this. He reports pain and swelling to the medial and lateral aspects. There was no edema. Related Data Home Medications ?Medication ?Instructions ?Recorded ?Confirmed dabigatran etexilate 75 mg capsule 75 mg PO BID 06/13/21 07/14/21 Previous Rx's ?Medication ?Instructions ?Recorded ciprofloxacin HCl 250 mg tablet 250 mg PO Q12H #14 tabs 08/16/20 metronidazole 500 mg tablet 500 mg PO Q12H #14 tabs 08/16/20 (Flagyl) ondansetron HCl 4 mg tablet 4 mg PO Q8H PRN nausea and 08/16/20 (Zofran) vomiting #10 tabs hydrocortisone 2.5 % topical cream 1 appl MS DAILY #30 grams 05/26/21 with perineal applicator (Procto-Med HC) ibuprofen 600 mg tablet 600 mg PO Q8H PRN pain #15 tabs 05/26/21 hydromorphone 2 mg tablet 2 mg PO Q8H PRN pain #10 tabs 06/22/21 (Dilaudid) ondansetron 4 mg disintegrating 4 mg PO ONCE PRN nausea and 01/26/22 tablet vomiting #10 tabs amoxicillin 500 mg capsule 1,000 mg (2 x 500 mg) PO BID 5 10/08/22 days #20 caps azithromycin 250 mg tablet See Rx Instructions PO .COMPLEX #6 10/08/22 (Zithromax Z-Tye) tabs morphine 15 mg immediate release 15 mg PO Q4-6H PRN pain #14 tabs 10/08/22 tablet benzonatate 100 mg capsule 100 mg PO TID PRN cough #14 caps 10/26/22 morphine 15 mg immediate release 15 mg PO TID PRN pain #10 tabs 04/06/23 tablet ondansetron 4 mg disintegrating 4 mg PO Q8H PRN nausea and 04/06/23 tablet vomiting #20 tabs gjjkkstmo-lmvjznlze-afwotdcs-scop 1 tab PO BID PRN abdominal pain 05/07/23 16.2 mg-0.1037 mg-0.0194 mg tablet #10 tabs () morphine 15 mg immediate release 15 mg PO Q8H PRN pain #15 tabs 09/25/23 tablet azithromycin 500 mg tablet 500 mg PO DAILY 2 days #2 tabs 10/12/23 morphine 15 mg immediate release 15 mg PO Q6H PRN pain #10 tabs 12/26/23 tablet ondansetron 4 mg disintegrating 4 mg PO Q6-8H PRN nausea and 12/26/23 tablet vomiting #14 tabs amoxicillin 875 mg-potassium 1 tab PO BID 10 days #20 tabs 06/06/24 clavulanate 125 mg tablet Allergies Allergy/AdvReac Type Severity Reaction Status Date / Time influenza virus vaccine, Allergy Severe GUILLIAN Verified 06/06/24 12:01 specific BARRE HX. [FLU VACCINE] tramadol [TRAMADOL] Allergy Severe SEIZURES Verified 06/06/24 12:01 acetaminophen [From PERCOCET] Allergy Intermediate ITCHING Verified 06/06/24 12:01 carbamazepine [From TEGRETOL] Allergy Intermediate HALLUCINATI Verified 06/06/24 12:01 ONS lamotrigine [From LAMICTAL] Allergy Intermediate ITCHING Verified 06/06/24 12:01 metoclopramide [From REGLAN] Allergy Intermediate ITCHY Verified 06/06/24 12:01 oxycodone [From PERCOCET] Allergy Intermediate ITCHING Verified 06/06/24 12:01 SEAFOOD Allergy Severe ANAPHYLAXIS Uncoded 06/06/24 12:01 Review of Systems 2 Constitutional: Constitutional: Denies chills and Denies fever(s) Cardiovascular: Cardiovascular: Denies chest pain, Denies palpitations, Denies dyspnea, Denies dyspnea on exertion and Denies orthopnea Respiratory: Respiratory: Denies cough, Denies dyspnea and Denies dyspnea on exertion Gastrointestinal: Gastrointestinal: Reports abdominal pain, Denies hematochezia, Denies constipation, Reports GI cramping, Denies diarrhea, Reports loose stools, Reports nausea, Reports vomiting and Denies hematemesis Genitourinary: Genitourinary: Denies difficulty urinating, Denies dysuria and Denies urinary urgency Musculoskeletal: Musculoskeletal: Denies back pain, Denies muscle weakness and Denies numbness Integumentary/Breasts: Skin/Breast: Denies rash Neurologic: Denies focal weakness and Denies numbness Psychiatric: Psychiatric: Denies depression Endocrine: Endocrine: Denies palpitations PMFSH Past Medical History Source: old records reviewed and obtained from family Medical History Left sided abdominal pain COVID-19 DVT (deep venous thrombosis) Diabetes Seizure disorder HIV (human immunodeficiency virus infection) Surgical History Status post cholecystectomy Status post laparoscopic appendectomy H/O fasciotomy S/P AAA (abdominal aortic aneurysm) repair S/P IVC filter Social History Social History Alcohol intake: never Patient Tobacco Use Status: Former Tobacco user Smoked in Last 30 Days: No Use of substances other than those prescribed or required for medical reasons: No Advance Directives: No Advance Directives Information Provided: No Do you have a plan to hurt others: No Plan Physical Exam ED Vital Signs: Vital Signs - 24 hr 06/06/24 11:55 06/06/24 15:32 06/06/24 18:02 Temperature 98.3 F 98.3 F 98.4 F Pulse Rate 88 81 77 Respiratory Rate 16 16 18 Blood Pressure 117/70 126/71 108/70 Pulse Oximetry 98 98 95 Oxygen Delivery Method Room Air Room Air Room Air BMI result Body Mass Index 26.4 Const General: alert and awake Resp Other: Lung sounds clear throughout Cardio Rate: regular rate Rhythm: regular rhythm GI Other: Abdomen is soft. There is diffuse tenderness to the left lower quadrant, suprapubic and right lower quadrant region. There is no peritoneal signs. No CVAT. Extrem Other: No calf tenderness or pedal edema bilaterally. There is slight soft tissue swelling to the medial lateral posterior aspect of the left ankle. There is diffuse tenderness in this region. DP pulses are +2 and equal bilaterally. Capillary refills less than 2 seconds Course Course Course Narrative: This is an RME performed by Macey Felix CNP: Additional HPI, ROS, PE not included below will be deferred to primary provider. Patient is a 48-year-old male who presents emergency department for evaluation of 2 concerns today. He has been experiencing diffuse lower abdominal pain for the past 7 days, has not had a bowel movement for 2 days, admits to having dark stools. He is having nausea and vomiting, vomits very soon after eating. He has a history of diverticulitis and pain has felt similar in the past. He states he has had ?multiple abdominal surgeries? for resection as well as hernia repair most recently in 10/16/2023 [facility]. Denies symptoms. He also reports that he sustained a twisting injury to the left ankle 2 days ago with pain posteriorly, worse with weight-bearing Exam: Diffuse tenderness of the lower abdomen bilaterally, no rigidity or guarding. Tenderness upon palpation posteriorly, 2+ DP/PT pulse. Plan: Labs, XR Reevaluation(s) Reevaluation #1: 7:30 p.m. reviewed all laboratory and imaging findings with the patient and his significant other at the bedside. There is no acute etiology to explain the patient's symptoms. Given that the patient did have some loose stools with some blood, and given that the patient has history of a immunocompromise, as well as recent travel, we will place patient on antibiotics. Patient is agreeable to this plan. Patient expressed understanding of all discharge instructions and has no further questions at this time. Patient is satisfied with using his sneakers for his left ankle support. Medications Administered Discontinued Medications Generic Name Dose Route Start Last Admin Trade Name Freq PRN Reason Stop Dose Admin Iohexol 100 ml 06/06/24 16:51 06/06/24 16:51 Iohexol 350 Mg/Ml 100 Ml Infus..Btl IV 06/06/24 16:52 85 ml ONCE ONE Administration Morphine Sulfate 4 mg 06/06/24 16:41 06/06/24 17:10 Morphine Sulfate 4 Mg/Ml Cartridge IVPUSH 06/06/24 16:42 4 mg ONCE ONE Administration Protocol Morphine Sulfate 6 mg 06/06/24 18:46 06/06/24 18:58 Morphine Sulfate 10 Mg/Ml Cartridge IVPUSH 06/06/24 18:47 6 mg ONCE ONE Administration Protocol Ondansetron HCl 4 mg 06/06/24 15:43 06/06/24 16:07 Ondansetron Hcl 4 Mg/2 Ml Vial IVPUSH 06/06/24 15:44 4 mg ONCE ONE Administration Medical Decision Making Medical Decision Making [facility] Narrative: 48-year-old male with a history of HIV, multiple episodes of diverticulitis status post bowel resection, AAA repair and DVT who with fem-pop bypass, with a tendon history of abdominal pain, hematochezia, nausea and vomiting. Patient reports consistency with previous episodes of diverticulitis. He has had decreased p.o. intake. Check labs, CT of the abdomen and pelvis. Analgesia and antiemetics. Hemoccult testing is negative Differential Diagnosis Differential Diagnoses: The differential diagnosis associated with the presentation includes Bowel obstruction Diverticulitis Colitis Pyelonephritis Admission/Observation Consideration of admission/observation: Escalation of care including admission/observation considered Lab Data [facility] Lab Attestation statement: I reviewed the patient's lab results. 06/06/24 12:13 06/06/24 12:13 Labs: Lab Results 06/06/24 06/06/24 Range/Units 12:13 15:53 WBC 4.4 L (4.8-10.8) X10*3/uL RBC 4.93 (4.60-5.80) X10*6/uL Hgb 14.2 (14.0-18.0) g/dl Hct 44.0 (42.0-52.0) % MCV 89.2 (80.0-98.0) fL MCH 28.8 (27.0-33.0) pg MCHC 32.3 (31.0-36.0) g/dl RDW 15.7 (11.0-16.0) % Plt Count 157 L (160-400) X10*3/uL MPV 9.4 (9.4-12.4) fL Immature Gran % (Auto) 0.2 (0.0-0.4) % Neut % (Auto) 39.3 L (45-73) % Lymph % (Auto) 50.5 H (20-40) % Owen % (Auto) 8.4 (2-11) % Eos % (Auto) 1.1 (0-4) % Baso % (Auto) 0.5 (0-2) % Lymph # (Auto) 2.2 (1.2-4.9) X10*3/uL Owen # (Auto) 0.4 (0.1-1.2) X10*3/uL Eos # (Auto) 0.1 (0.0-0.4) X10*3/uL Baso # (Auto) 0.0 (0.0-0.2) X10*3/uL Abs Immat Gran (auto) 0.01 (0.00-0.03) X10*3/uL Absolute Neuts (auto) 1.7 L (2.0-8.3) x10*3/uL Absolute Nucleated RBC 0.000 (0.0-0.012) X10*3/uL Nucleated RBC % (auto) 0.0 (0.0-0.2) /100WBC Sodium 135 (135-145) mmol/L Potassium 4.0 (3.3-5.1) mmol/L Chloride 105 (96-108) mmol/L Carbon Dioxide 25 (22-29) mmol/L Anion Gap 9 L (12-20) BUN 12 (9-16) mg/dL Creatinine 1.28 (0.5-1.4) mg/dL Estim Creat Clear Calc 69.0 Estimated GFR 59 Random Glucose 198 H (60-115) mg/dL Lactic Acid 1.9 (0.5-2.0) mmol/L Calcium 9.3 (8.4-10.2) mg/dL Total Bilirubin 0.7 (0.0-1.0) mg/dL AST 36 (5-37) U/L ALT 34 (0-40) U/L Alkaline Phosphatase 136 H (39-117) U/L Total Protein 8.7 H (6.5-8.0) g/dL Albumin 4.1 (3.5-5.0) g/dL Lipase 12 (8-78) U/L Urine Color Yellow Urine Appearance Clear Urine pH 5.5 (5.0-9.0) Ur Specific [place] >= 1.030 H (1.005-1.025) Urine Protein Negative (Neg-Trace) mg/dL Urine Glucose (UA) >=1000 H (Negative) mg/dL Urine Ketones Negative (Negative) mg/dL Urine Blood Negative (Negative) Urine Nitrite Negative (Negative) Ur Leukocyte Esterase Negative (Negative) Urine RBC 0-2 (0-2) /HPF Urine WBC 0-5 (0-5) /HPF Ur Squamous Epith Cells 0-2 (0-2) /HPF Urine Bacteria None Seen (None Seen) Hyaline Casts 0-2 (0-2) /LPF Stool Occult Blood NEGATIVE (NEGATIVE) Influenza Type A (PCR) NEGATIVE (Negative) Influenza Type B (PCR) NEGATIVE (Negative) RSV RNA Qual (PCR) NEGATIVE (Negative) SARS-CoV-2 RNA (RT-PCR) NEGATIVE (Negative) Radiology Impression Discussion of test interpretation with radiology: I have reviewed the radiologist's reading. Radiologist Impression: [place] [id number] CT Scan Report Signed Patient: Jerome Smith MR#: [id number] : 1975 Acct:[id number] Age/Sex: 48 / M ADM Date: 06/06/24 Loc: .ED Attending Dr: Ordering Physician: Nicolas Walker Date of Service: 06/06/24 Procedure(s): CT abdomen pelvis w IV con Accession Number(s): [id number] cc: Physician,Unknown ; Nicolas Walker~ EXAMINATION: CT ABDOMEN AND PELVIS WITH CONTRAST CLINICAL INFORMATION: 48-year-old male with left lower quadrant abdominal pain, nausea and diarrhea with vomiting, history of diverticulitis. COMPARISON: April 08, 2024 TECHNIQUE: Multidetector volumetric images were obtained from the superior aspect of the liver through the pubic symphysis following administration 85 mL of Omnipaque 350 intravenous contrast. Sagittal and coronal reformatted images were obtained on the technologist's workstation. Oral contrast: No This CT examination was performed using dose optimization techniques as appropriate, variously including the following: *Automated exposure control *Adjustment of mA and/or kV according to patient size (this includes techniques or standardized protocols for targeted exams where dose is matched to indication/reason for exam; i.e. extremities or head) *Use of iterative reconstruction technique DLP: 521 mGy-cm FINDINGS: LUNG BASES: The visualized lung bases are unremarkable. LIVER, GALLBLADDER, AND BILIARY TREE: Liver is of low attenuation due to hepatic steatosis, without intrahepatic masses or ductal dilatation seen. The liver is no enlarged gallbladder is surgically absent. CBD is not dilated. PANCREAS: Unremarkable. SPLEEN: Calcified granulomas spread through the spleen. Spleen is not enlarged. ADRENAL GLANDS: Unremarkable. KIDNEYS AND URETERS: The kidneys are normal in size, shape, and attenuation. No hydronephrosis, hydroureter, or calculi seen. No perinephric stranding. BLADDER: Unremarkable. GASTROINTESTINAL TRACT: Appendix is surgically absent. Loops of colon revealed changes of diverticulosis without signs of diverticulitis in the sigmoid colon small bowel loops are not dilated. There is distal sigmoid anastomosis, well functioning. ABDOMINAL WALL: Patient is status post abdominal hernia repair with mesh LYMPH NODES: Normal. VASCULAR: Patient is status post repair of abdominal aortic aneurysm with aortobiiliac graft aortic approximately just below the celiac artery measured 2.2 cm, infrarenal in its measured 2.5 cm PELVIC VISCERA: Unremarkable. OSSEOUS STRUCTURES: Unremarkable. CT/CT abdomen pelvis w IV con IMPRESSION: 1. No explanation for abdominal pain. 2. Diverticulosis without diverticulitis. 3. Hepatic steatosis. 4. Status post sigmoidectomy, abdominal aortic aneurysm repair, appendectomy and cholecystectomy. Fleischner guidelines were followed. Electronically signed by: Tadeo Nath MD 06/06/2024 07:05 PM EDT Dictated By: Tadeo Nath MD Signed By: <Electronically signed by Tadeo Nath MD in OV> 06/06/24 1905 DD/ 1543 TD/TT: 06/06/24 1650 Equipment Analyst: [place] [id number] XRay Report Signed Patient: Jerome Smith MR#: [id number] : 1975 Acct:[id number] Age/Sex: 48 / M ADM Date: 06/06/24 Loc: HO.ED Attending Dr: Ordering Physician: Anne Marie Felix CNP Date of Service: 06/06/24 Procedure(s): XR ankle LT min 3V Accession Number(s): [id number] cc: Anne Marie Felix CNP; Physician,Unknown ~ EXAMINATION: XR ANKLE, LEFT CLINICAL INFORMATION: Posterior pain. Twisting injury. COMPARISON: None available. TECHNIQUE: 3 views of the left ankle (AP, lateral, and oblique views). FINDINGS: No fracture or dislocation of the left ankle. The ankle mortise is intact. Small enthesophyte formation at the insertion of the Achilles tendon. Small heel spur. No lytic or sclerotic osseous lesions. Mild soft tissue edema along the medial malleolus. No focal soft tissue swelling. No radiopaque foreign bodies. XR/XR ankle LT min 3V IMPRESSION: No evidence of acute fracture or dislocation of the left ankle. Mild soft tissue edema along the medial malleolus. Electronically signed by: Sagar Allen DO 06/06/2024 02:37 PM EDT RP Dictated By: Dung Allen DO Signed By: <Electronically signed by Dung Allen DO in OV> 06/06/24 1437 DD/ 1202 TD/TT: 06/06/24 1218 Equipment Analyst: GERRY Independent Historian Clinical information obtained from an independent historian. History obtained from or confirmed by: Spouse and Other Prescription Management I considered prescription management with: Pain Medication Discharge Plan Discharge Clinical Impression: Abdominal pain, lower Sprain of ankle, left Qualifiers: Encounter type: initial encounter Involved ligament of ankle: unspecified ligament Qualified Code(s): S93.402A - Sprain of unspecified ligament of left ankle, initial encounter Patient Disposition: Home, Self-Care Instructions: Abdominal Pain (ED) Additional Instructions: Clear liquids. [place] diet. Gradually advanced. Augmentin as directed. Finish all antibiotics. Continue Zofran as directed. Rest. Avoid strenuous activity. Follow-up with your primary care provider. Call this week to schedule a follow- up appointment. Return to the emergency department if you have any worsening of symptoms, or any concerns. Get well soon! Prescriptions: New amoxicillin-pot clavulanate 875-125 mg tablet 1 tab PO BID 10 Days Qty: 20 0RF No Action metronidazole [Flagyl] 500 mg tablet 500 mg PO Q12H Qty: 14 0RF ciprofloxacin HCl 250 mg tablet 250 mg PO Q12H Qty: 14 0RF ondansetron HCl [Zofran] 4 mg tablet 4 mg PO Q8H PRN (Reason: nausea and vomiting) Qty: 10 0RF ondansetron 4 mg tablet,disintegrating 4 mg PO ONCE PRN (Reason: nausea and vomiting) Qty: 10 0RF amoxicillin 500 mg capsule 1,000 mg PO BID 5 Days Qty: 20 0RF azithromycin [Zithromax Z-Tye] 250 mg tablet See Rx Instructions .ROUTE .COMPLEX Qty: 6 0RF Rx Instructions: take 500 mg today (day 1), then 250 mg for 4 days (days 2-5) morphine 15 mg tablet 15 mg PO Q4-6H PRN (Reason: pain) Qty: 14 0RF Rx Instructions: Patient may request partial fill; Partial Fill upon patient request. hydrocortisone [Procto-Med HC] 2.5 % cream with perineal applicator 1 appl MS DAILY Qty: 30 0RF ibuprofen 600 mg tablet 600 mg PO Q8H PRN (Reason: pain) Qty: 15 0RF hydromorphone [Dilaudid] 2 mg tablet 2 mg PO Q8H PRN (Reason: pain) Qty: 10 0RF benzonatate 100 mg capsule 100 mg PO TID PRN (Reason: cough) Qty: 14 0RF morphine 15 mg tablet 15 mg PO TID PRN (Reason: pain) Qty: 10 0RF Rx Instructions: partial fill okay; Partial Fill upon patient request. ondansetron 4 mg tablet,disintegrating 4 mg PO Q8H PRN (Reason: nausea and vomiting) Qty: 20 0RF azithromycin 500 mg tablet 500 mg PO DAILY 2 Days Qty: 2 0RF Rx Instructions: start on day 2 of therapy vdhhoojnf-cbyihq-agpxtdbx-scop [] 16.2-0.1037 -0.0194 mg tablet 1 tab PO BID PRN (Reason: abdominal pain) Qty: 10 0RF morphine 15 mg tablet 15 mg PO Q8H PRN (Reason: pain) Qty: 15 0RF Rx Instructions: Partial Fill upon patient request. morphine 15 mg tablet 15 mg PO Q6H PRN (Reason: pain) Qty: 10 0RF Rx Instructions: The patient may ask for partial fill; Partial Fill upon patient request. ondansetron 4 mg tablet,disintegrating 4 mg PO Q6-8H PRN (Reason: nausea and vomiting) Qty: 14 0RF dabigatran etexilate 75 mg capsule 75 mg PO BID Print Language: Malay
[2024-06-06 12:19] LABS: MANUAL DIFF FLAG NO
[2024-06-06 12:21] LABS: Basophils Percent Auto 0.5 % (0-2); Eosinophils Absolute Auto 0.1 X10*3/uL (0.0-0.4); Eosinophils Percent Auto 1.1 % (0-4); Hemoglobin 14.2 g/dl (14.0-18.0); Imm Gran Abs Auto 0.01 X10*3/uL (0.00-0.03); Imm Gran Pct Auto 0.2 % (0.0-0.4); Lymphocytes Absolute Auto 2.2 X10*3/uL (1.2-4.9); Lymphocytes Percent Auto 50.5 % (20-40); Mean Corpuscular HGB Conc 32.3 g/dl (31.0-36.0); Mean Corpuscular Hemoglobin 28.8 pg (27.0-33.0); Mean Corpuscular Volume 89.2 fL (80.0-98.0); Mean Platelet Volume 9.4 fL (9.4-12.4); Monocytes Absolute Auto 0.4 X10*3/uL (0.1-1.2); Monocytes Percent Auto 8.4 % (2-11); Neutrophils Absolute Auto 1.7 x10*3/uL (2.0-8.3); Neutrophils Percent Auto 39.3 % (45-73); Platelet Count 157 X10*3/uL (160-400); Red Blood Count 4.93 X10*6/uL (4.60-5.80); Red Cell Distribution Width 15.7 % (11.0-16.0); White Blood Count 4.4 X10*3/uL (4.8-10.8)
[2024-06-06 12:29] LABS: Appearance Urine Clear; Color Urine Yellow; Glucose Urine UA >=1000 mg/dL (Negative); Leukocyte Esterase Urine Negative (Negative); Nitrite Urine Negative (Negative); PH 5.5 (5.0-9.0); Specific Gravity - Urine >= 1.030 (1.005-1.025); UMIC TRIGGER UACC YES; Urine Blood Negative (Negative); Urine Ketones Negative (Negative); Urine Protein Negative (Neg-Trace)
[2024-06-06 12:31] LABS: Lactic Acid 1.9 mmol/L (0.5-2.0)
[2024-06-06 12:34] LABS: Alanine Aminotransferase 34 U/L (0-40); Albumin Level 4.1 g/dL (3.5-5.0); Alkaline Phosphatase 136 U/L (39-117); Anion Gap 9 (12-20); Aspartate Amino Transferase 36 U/L (5-37); Bacteria Urine None Seen (None Seen); Bilirubin Total 0.7 mg/dL (0.0-1.0); Blood Urea Nitrogen 12 mg/dL (9-16); Calcium 9.3 mg/dL (8.4-10.2); Carbon Dioxide 25 mmol/L (22-29); Chloride 105 mmol/L (96-108); Estimated Glomerular Filt Rate 59; Glucose Random 198 mg/dL (60-115); Hyaline Casts Urine 0-2 /LPF (0-2); Lipase 12 U/L (8-78); RBC Urine 0-2 /HPF (0-2); Sodium 135 mmol/L (135-145); Squamous Epithelial Cell Urine 0-2 /HPF (0-2); Total Protein 8.7 g/dL (6.5-8.0); WBC Urine 0-5 /HPF (0-5)
[2024-06-06 12:56] LABS: Influenza A PCR NEGATIVE (Negative); Influenza B PCR NEGATIVE (Negative); Resp Syncy Virus RNA Qual PCR NEGATIVE (Negative); SARS COV2 PCR INHOUSE NEGATIVE (Negative)
[2024-06-06 15:32] VITALS: BP 126/71; PULSE 81; RESP 16; TEMP 36.8; O2SAT 98
[2024-06-06 16:02] LABS: OBS Int Ctl Valid YES; OBS1 NEGATIVE (NEGATIVE)
[2024-06-06] MEDS: ondansetron HCL 4 MG/2 ML VIAL IVPUSH (16:07)
[2024-06-06] MEDS: iohexoL 350 MG/ML 100 ML INFUS..BTL IV (16:51)
[2024-06-06] MEDS: Morphine Sulfate 4 MG/ML CARTRIDGE IVPUSH (17:10)
[2024-06-06 18:02] VITALS: BP 108/70; PULSE 77; RESP 18; TEMP 36.9; O2SAT 95
[2024-06-06] MEDS: Morphine Sulfate 10 MG/ML CARTRIDGE 6 MG IVPUSH (18:58)
[2024-06-06 19:56] VITALS: BP 108/70; PULSE 77; RESP 18; TEMP 36.9; O2SAT 95
== END 2024-06-06 19:56 | disposition home or self-care (01) ==
PROVIDERS: Nurse Practitioner Family; Physician Assistant; Emergency Provider Emergency Medicine
DX: R10.32 Left lower quadrant pain (principal); Z03.818 Encounter for observation for suspected exposure to other biological agents ruled out; B20 Human immunodeficiency virus [HIV] disease; E11.9 Type 2 diabetes mellitus without complications; Z86.718 Personal history of other venous thrombosis and embolism; Z79.01 Long term (current) use of anticoagulants
CPT/HCPCS: 0241U; 73610; 74177; 80053; 81001; 82272; 83605; 83690; 85025; 96374; 96375; 96376; 99284; J2270; J2405; Q9967

== ENCOUNTER 2024-06-26 11:10 | Inpatient (IN) | payer MEDICARE, MEDICAID, SELFPAY ==
[2024-06-26] VITALS (16 sets, daily range): BP systolic 78–122; BP diastolic 50–69; PULSE 70–120; RESP 14–24; TEMP 36.2–36.8; O2SAT 96–100; BMI 26.9
--- NOTE | ~2024-06-26 | XR_ITS ---
EXAMINATION: XR CHEST CLINICAL INFORMATION: NG tube placement. COMPARISON: 06/26/2024, 08/01/2023. TECHNIQUE: 5 sequential AP views of the chest obtained while adjusting NG tube. FINDINGS: NG tube is in place, with tip terminating in the region of the gastric body, side hole below the GE junction. This is well positioned. Lungs remain essentially clear bilaterally. Borderline cardiac enlargement. Mediastinal and hilar contours are normal. No effusions or pneumothorax. Soft tissues demonstrate surgical clips in the upper abdomen as well as a partially imaged infrarenal aortic stent graft. No acute osseous abnormalities. XR/XR chest 1V IMPRESSION: 1. Well-positioned NG tube. 2. No active pulmonary disease. 3. Borderline cardiac enlargement. Electronically signed by: David Heaton MD 06/27/2024 03:33 PM EDT
--- NOTE | ~2024-06-26 | XR_ITS ---
EXAMINATION: XR CHEST CLINICAL INFORMATION: Seizure. COMPARISON: 08/01/2023. TECHNIQUE: Frontal AP portable view of the chest was obtained. FINDINGS: No significant abnormality is noted involving the heart, lungs, mediastinum, bony thorax or soft tissues. XR/XR chest 1V IMPRESSION: Normal chest. Electronically signed by: David Heaton MD 06/26/2024 12:49 PM EDT
--- NOTE | ~2024-06-26 | CT_ITS ---
EXAMINATION: CT HEAD WITHOUT CONTRAST CLINICAL INFORMATION: Seizure COMPARISON: 05/13/2021. 09/06/2019. TECHNIQUE: Contiguous axial imaging was performed from the skull base to vertex without intravenous administration of contrast. This CT examination was performed using dose optimization techniques as appropriate, variously including the following: *Automated exposure control *Adjustment of mA and/or kV according to patient size (this includes techniques or standardized protocols for targeted exams where dose is matched to indication/reason for exam; i.e. extremities or head) *Use of iterative reconstruction technique DLP: 756 mGy-cm FINDINGS: There is no evidence of intracranial hemorrhage or extra-axial fluid collection. There is no mass effect, or edema. No CT evidence of acute territorial infarct. Ventricles, sulci, and cisterns are normal in size and configuration for patient age. No hydrocephalus. No midline shift. 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 Normal sella. Globes and orbital contents image normally. No extracranial soft tissue abnormalities. Mild mucosal thickening dependent posterior maxillary antra. Otherwise, the paranasal sinuses, mastoid air cells, and tympanic cavities are normally aerated. No suspicious bony abnormalities. CT/CT head/brain wo IV con IMPRESSION: No acute intracranial pathology. Electronically signed by: David Heaton MD 06/26/2024 01:12 PM EDT
--- NOTE | 2024-06-26 11:23 | ED_ITS ---
HPI - General Adult General Chief complaint: Seizure Stated complaint: bodyaches-abd pain-shaking uncontrollably Time Seen by Provider: 06/26/24 11:23 Source: other (patient's partner) Mode of arrival: ambulatory Limitations: physical limitation (patient seizing) History of Present Illness ED Provider: Elaine Guerrero PA-C HPI narrative: Patient is a 48 year old assigned male at with a history of seizures, HIV, AAA with repair presenting to the emergency department today seizing. Patient's partner states that the patient was recently hospitalized at [facility] for intractable seizures. Patient's partner states that during his previous hospitalization, they began CPR on him and broke ribs, causing rib pain in the patient. Patient's partner states that was originally why the patient was coming to the ER but then the patient began to seize. Patient's partner states that he is compliant on all of his medications. Related Data Home Medications ?Medication ?Instructions ?Recorded ?Confirmed dabigatran etexilate 75 mg capsule 75 mg PO BID 06/13/21 07/14/21 Previous Rx's ?Medication ?Instructions ?Recorded ciprofloxacin HCl 250 mg tablet 250 mg PO Q12H #14 tabs 08/16/20 metronidazole 500 mg tablet 500 mg PO Q12H #14 tabs 08/16/20 (Flagyl) ondansetron HCl 4 mg tablet 4 mg PO Q8H PRN nausea and 08/16/20 (Zofran) vomiting #10 tabs hydrocortisone 2.5 % topical cream 1 appl OH DAILY #30 grams 05/26/21 with perineal applicator (Procto-Med HC) ibuprofen 600 mg tablet 600 mg PO Q8H PRN pain #15 tabs 05/26/21 hydromorphone 2 mg tablet 2 mg PO Q8H PRN pain #10 tabs 06/22/21 (Dilaudid) ondansetron 4 mg disintegrating 4 mg PO ONCE PRN nausea and 01/26/22 tablet vomiting #10 tabs amoxicillin 500 mg capsule 1,000 mg (2 x 500 mg) PO BID 5 10/08/22 days #20 caps azithromycin 250 mg tablet See Rx Instructions PO .COMPLEX #6 10/08/22 (Zithromax Z-Tye) tabs morphine 15 mg immediate release 15 mg PO Q4-6H PRN pain #14 tabs 10/08/22 tablet benzonatate 100 mg capsule 100 mg PO TID PRN cough #14 caps 10/26/22 morphine 15 mg immediate release 15 mg PO TID PRN pain #10 tabs 04/06/23 tablet ondansetron 4 mg disintegrating 4 mg PO Q8H PRN nausea and 04/06/23 tablet vomiting #20 tabs byvcyslli-xpersmbxo-jarnvuwz-scop 1 tab PO BID PRN abdominal pain 05/07/23 16.2 mg-0.1037 mg-0.0194 mg tablet #10 tabs () morphine 15 mg immediate release 15 mg PO Q8H PRN pain #15 tabs 09/25/23 tablet azithromycin 500 mg tablet 500 mg PO DAILY 2 days #2 tabs 10/12/23 morphine 15 mg immediate release 15 mg PO Q6H PRN pain #10 tabs 12/26/23 tablet ondansetron 4 mg disintegrating 4 mg PO Q6-8H PRN nausea and 12/26/23 tablet vomiting #14 tabs amoxicillin 875 mg-potassium 1 tab PO BID 10 days #20 tabs 06/06/24 clavulanate 125 mg tablet Allergies Allergy/AdvReac Type Severity Reaction Status Date / Time influenza virus vaccine, Allergy Severe GUILLIAN Verified 06/26/24 11:53 specific BARRE HX. [FLU VACCINE] tramadol [TRAMADOL] Allergy Severe SEIZURES Verified 06/26/24 11:53 acetaminophen [From PERCOCET] Allergy Intermediate ITCHING Verified 06/26/24 11:53 carbamazepine [From TEGRETOL] Allergy Intermediate HALLUCINATI Verified 06/26/24 11:53 ONS lamotrigine [From LAMICTAL] Allergy Intermediate ITCHING Verified 06/26/24 11:53 metoclopramide [From REGLAN] Allergy Intermediate ITCHY Verified 06/26/24 11:53 oxycodone [From PERCOCET] Allergy Intermediate ITCHING Verified 06/26/24 11:53 SEAFOOD Allergy Severe ANAPHYLAXIS Uncoded 06/26/24 11:53 Review of Systems 2 Review of Systems: Yes Other (patient actively seizing) Neurologic: Reports seizure-like activity PMFSH Past Medical History Attestation statement: The following information was validated with the patient. (all information validated with the patient's partner) Source: old records reviewed, nursing notes reviewed and other (patient's partner provided all history and ROS) Medical History Left sided abdominal pain COVID-19 DVT (deep venous thrombosis) Diabetes Seizure disorder HIV (human immunodeficiency virus infection) Surgical History Status post cholecystectomy Status post laparoscopic appendectomy H/O fasciotomy S/P AAA (abdominal aortic aneurysm) repair S/P IVC filter Social History Social History Alcohol intake: never Patient Tobacco Use Status: Former Tobacco user Smoked in Last 30 Days: No Use of substances other than those prescribed or required for medical reasons: No Advance Directives: Yes Advance Directives Information Provided: Yes Advance Directives on File: No Physical Exam ED Vital Signs: Vital Signs - 24 hr 06/26/24 11:51 06/26/24 12:31 06/26/24 12:33 Temperature 97.8 F 98.2 F Pulse Rate 115 H 112 H Pulse Rate [Monitor] 120 H Respiratory Rate 24 H 20 Blood Pressure 122/68 105/66 Pulse Oximetry 97 96 Oxygen Delivery Method Nasal Cannula Nasal Cannula Oxygen Flow Rate 2 BMI result Body Mass Index 26.9 Const Nutritional Appearance: well nourished Limitations: other limitations (patient seizing) [facility] Head: Yes normal to inspection and Yes atraumatic Ears: hearing grossly normal bilaterally General nose exam: Normal external nose present, no nasal discharge noted and no epistaxis Face and sinus: Yes normal facial exam, No abrasion and No laceration Mouth: Normal oral and palatal mucosa present, no drooling and no muffled voice Eyes General: appearance normal, both eyes and all related structures Periorbital: periorbital findings normal Eyelids: Yes eyelids normal Pupils: Equal, round and reactive pupils present Neck Neck: Yes normal visual inspection, Yes full ROM and Yes no lymphadenopathy Chest Chest palpation & inspection: normal inspection of the chest Resp Effort & Inspection: normal respiratory effort Cardio Rate: tachycardic Rhythm: regular rhythm GI Inspection: Yes normal to inspection Neuro Other: tonic clonic seizing Cranial nerves: Yes Equal, round and reactive pupils present Extrem General: Yes normal to inspection, Yes full ROM and Yes capillary refill normal Medications Administered Generic Name Dose Route Start Last Admin Trade Name Freq PRN Reason Stop Dose Admin Sodium Chloride 1,000 mls @ 999 mls/hr 06/26/24 13:45 06/26/24 13:40 Ns IV 06/26/24 14:45 999 mls/hr .Q1H1M HAYLEY Administration Discontinued Medications Generic Name Dose Route Start Last Admin Trade Name Freq PRN Reason Stop Dose Admin Levetiracetam 1,000 mg in 100 mls @ 400 mls/hr 06/26/24 11:26 06/26/24 11:57 Keppra IV 06/26/24 11:40 Infused ONCE ONE Infusion Phenobarbital Sodium 1,000 mg/ 107.6923 mls @ 430.769 mls/hr 06/26/24 13:15 06/26/24 13:15 Sodium Chloride IV 06/26/24 13:29 430.77 mls/hr ONCE ONE Administration Lorazepam 2 mg 06/26/24 12:49 06/26/24 12:55 Lorazepam 2 Mg/Ml Vial IVPUSH 06/26/24 12:50 2 mg ONCE ONE Administration Midazolam HCl 5 mg 06/26/24 11:25 06/26/24 11:50 Midazolam Hcl/Pf 2 Mg/2 Ml Vial IM 06/26/24 11:26 Not Given ONCE ONE Midazolam HCl 5 mg 06/26/24 11:25 06/26/24 11:50 Midazolam Hcl/Pf 2 Mg/2 Ml Vial IM 06/26/24 11:26 Not Given ONCE ONE Midazolam HCl 5 mg 06/26/24 11:45 06/26/24 11:50 Midazolam Hcl 10 Mg/10 Ml Vial IM 06/26/24 11:46 5 mg ONCE ONE Administration Midazolam HCl 5 mg 06/26/24 11:45 06/26/24 11:49 Midazolam Hcl 10 Mg/10 Ml Vial IM 06/26/24 11:46 5 mg ONCE ONE Administration Medical Decision Making Medical Decision Making MDM Narrative: Patient is a 48 year old assigned male at with a history of seizures, HIV, AAA with repair presenting to the emergency department today seizing. Patient's physical exam showed a seizing individual. Patient's blood work was unremarkable. Patient's EKG was unremarkable. Patient's chest x-ray and head CT showed no acute process. Patient was given 5mg of Versed when he arrived and he continued to seize. Patient was given an additional 5mg of Versed and 1g of Keppra. Patient stopped seizing for approximately 40 minutes. Patient began to seize again and was given 2mg of Ativan. Patient continued to seize. Patient given an additional 5mg of versed. I consulted with my attending physician, Dr. Davis, who recommended giving the patient 1 gram of pehnobarbitol, 1g of dilantin, and admitting the patient to the ICU. I spoke to the director of annual giving who agreed to admission. Dr. Davis placed a central line without incident. I explained my physical exam findings as well as all test results to the patient's partner. I answered all questions asked by the patient's partner. Patient's partner verbalized agreement and understanding with this treatment plan and admission. Differential Diagnosis Differential Diagnoses: The differential diagnosis associated with the presentation includes Intractable seizing Status epilepticus Poorly controlled seizures Admission/Observation Consideration of admission/observation: Escalation of care including admission/observation considered Patient admitted to the ICU. Consult Healthcare Provider Management of the patient was discussed with: Tie Up Worker (spoke to the director of annual giving as noted in the MDM Rationale portion of this note.) Lab Data [facility] Lab Attestation statement: I reviewed the patient's lab results. My interpretation of these results are in the MDM Rationale portion of this note. 06/26/24 11:46 06/26/24 12:08 Labs: Lab Results 06/26/24 06/26/24 06/26/24 Range/Units 11:29 11:46 12:08 WBC 5.7 (4.8-10.8) X10*3/uL RBC 5.00 (4.60-5.80) X10*6/uL Hgb 14.5 (14.0-18.0) g/dl Hct 46.0 (42.0-52.0) % MCV 92.0 (80.0-98.0) fL MCH 29.0 (27.0-33.0) pg MCHC 31.5 (31.0-36.0) g/dl RDW 15.6 (11.0-16.0) % Plt Count 214 D (160-400) X10*3/uL MPV 9.5 (9.4-12.4) fL Immature Gran % (Auto) 0.2 (0.0-0.4) % Neut % (Auto) 38.0 L (45-73) % Lymph % (Auto) 52.3 H (20-40) % [place] % (Auto) 8.5 (2-11) % Eos % (Auto) 0.5 (0-4) % Baso % (Auto) 0.5 (0-2) % Lymph # (Auto) 3.0 (1.2-4.9) X10*3/uL [place] # (Auto) 0.5 (0.1-1.2) X10*3/uL Eos # (Auto) 0.0 (0.0-0.4) X10*3/uL Baso # (Auto) 0.0 (0.0-0.2) X10*3/uL Abs Immat Gran (auto) 0.01 (0.00-0.03) X10*3/uL Absolute Neuts (auto) 2.2 (2.0-8.3) x10*3/uL Absolute Nucleated RBC 0.000 (0.0-0.012) X10*3/uL Nucleated RBC % (auto) 0.0 (0.0-0.2) /100WBC PT 11.7 (10.9-12.4) SEC INR 1.0 (0.9-1.1) APTT 26.5 (26.0-36.8) SEC Sodium 138 (135-145) mmol/L Potassium 3.8 (3.3-5.1) mmol/L Chloride 109 H (96-108) mmol/L Carbon Dioxide 19 L (22-29) mmol/L Anion Gap 14 (12-20) BUN 9 (9-16) mg/dL Creatinine 1.23 (0.5-1.4) mg/dL Estim Creat Clear Calc 71.8 Estimated GFR > 60 POC Glucose 196 H (60-115) mg/dL Random Glucose 141 H (60-115) mg/dL Calcium 9.9 D (8.4-10.2) mg/dL Magnesium 2.1 (1.6-2.6) mg/dL Total Bilirubin 0.4 (0.0-1.0) mg/dL AST 38 H (5-37) U/L ALT 38 (0-40) U/L Alkaline Phosphatase 110 (39-117) U/L Total Protein 8.5 H (6.5-8.0) g/dL Albumin 3.8 (3.5-5.0) g/dL Influenza Type A (PCR) NEGATIVE (Negative) Influenza Type B (PCR) NEGATIVE (Negative) RSV RNA Qual (PCR) NEGATIVE (Negative) SARS-CoV-2 RNA (RT-PCR) NEGATIVE (Negative) Independent Interpretation I performed an independent interpretation of an: EKG, Plain X-Ray and CT Scan Interpretation: My interpretation is in agreement with the radiologist's impression of these imaging studies. L EXAMINATION: CT HEAD WITHOUT CONTRAST CLINICAL INFORMATION: Seizure COMPARISON: 05/13/2021. 09/06/2019. TECHNIQUE: Contiguous axial imaging was performed from the skull base to vertex without intravenous administration of contrast. This CT examination was performed using dose optimization techniques as appropriate, variously including the following: *Automated exposure control *Adjustment of mA and/or kV according to patient size (this includes techniques or standardized protocols for targeted exams where dose is matched to indication/reason for exam; i.e. extremities or head) *Use of iterative reconstruction technique DLP: 756 mGy-cm FINDINGS: There is no evidence of intracranial hemorrhage or extra-axial fluid collection. There is no mass effect, or edema. No CT evidence of acute territorial infarct. Ventricles, sulci, and cisterns are normal in size and configuration for patient age. No hydrocephalus. No midline shift. 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 Normal sella. Globes and orbital contents image normally. No extracranial soft tissue abnormalities. Mild mucosal thickening dependent posterior maxillary antra. Otherwise, the paranasal sinuses, mastoid air cells, and tympanic cavities are normally aerated. No suspicious bony abnormalities. CT/CT head/brain wo IV con IMPRESSION: No acute intracranial pathology. Electronically signed by: David Heaton MD 06/26/2024 01:12 PM EDT Dictated By: David Heaton MD Signed By: Electronically signed by David Heaton MD 06/26/24 1312 EXAMINATION: XR CHEST CLINICAL INFORMATION: Seizure. COMPARISON: 08/01/2023. TECHNIQUE: Frontal AP portable view of the chest was obtained. FINDINGS: No significant abnormality is noted involving the heart, lungs, mediastinum, bony thorax or soft tissues. XR/XR chest 1V IMPRESSION: Normal chest. Electronically signed by: David Heaton MD 06/26/2024 12:49 PM EDT RP Dictated By: David Heaton MD Signed By: Electronically signed by David Heaton MD 06/26/24 1249 Vent. Rate: 114 BPM Atrial Rate: 114 BPM P-R Int: 146 ms QRS Dur: 088 ms QT Int: 354 ms P-R-T Axes: 019 017 020 degrees QTc Int: 487 ms Sinus tachycardia Otherwise normal ECG When compared with ECG of 01-AUG-2023 13:22, No significant change was found DD/ 1151 Radiology Impression Discussion of test interpretation with radiology: I have reviewed the radiologist's reading. Independent Historian Clinical information obtained from an independent historian. History obtained from or confirmed by: Other (patient's partner provided all ROS and HPI given the patient seizing) Critical Care Time Critical Care Time Critical Care Time: Yes Total Critical Care Time: 66 Attestation: I spent 66 minutes of Critical Care Time with this patient. This does not include time spent on separately reported billable procedures. Discharge Plan Discharge Clinical Impression: Seizure Patient Disposition: Admitted As Inpatient
--- NOTE | 2024-06-26 11:26 | ECG_ITS ---
Test Reason : SEZIURE Blood Pressure : / mmHG Vent. Rate : 114 BPM Atrial Rate : 114 BPM P-R Int : 146 ms QRS Dur : 088 ms QT Int : 354 ms P-R-T Axes : 019 017 020 degrees QTc Int : 487 ms Sinus tachycardia Otherwise normal ECG When compared with ECG of 01-AUG-2023 13:22, No significant change was found Referred By: Elaine Guerrero Electronically Signed By:JEAN-PIERRE ALMEIDA
[2024-06-26 11:33] LABS: Glucose, Whole Blood 196 mg/dL (60-115)
[2024-06-26] MEDS: levETIRAcetam in NaCl (iso-os) 1,000 MG/100 ML PIGGYBACK 400 MG IV (11:33)
[2024-06-26 11:51] LABS: MANUAL DIFF FLAG NO
[2024-06-26 11:55] LABS: Basophils Percent Auto 0.5 % (0-2); Eosinophils Percent Auto 0.5 % (0-4); Hemoglobin 14.5 g/dl (14.0-18.0); Imm Gran Abs Auto 0.01 X10*3/uL (0.00-0.03); Imm Gran Pct Auto 0.2 % (0.0-0.4); Lymphocytes Percent Auto 52.3 % (20-40); Mean Corpuscular HGB Conc 31.5 g/dl (31.0-36.0); Mean Platelet Volume 9.5 fL (9.4-12.4); Monocytes Absolute Auto 0.5 X10*3/uL (0.1-1.2); Monocytes Percent Auto 8.5 % (2-11); Neutrophils Absolute Auto 2.2 x10*3/uL (2.0-8.3); Platelet Count 214 X10*3/uL (160-400); Red Cell Distribution Width 15.6 % (11.0-16.0); White Blood Count 5.7 X10*3/uL (4.8-10.8)
[2024-06-26 12:00] LABS: Prothrombin Time 11.7 SEC (10.9-12.4)
[2024-06-26 12:03] LABS: Partial Thromboplastin Time 26.5 SEC (26.0-36.8)
--- NOTE | 2024-06-26 12:21 | PC.NURSE ---
late charting due to patient care, patient presents emergently from external triage actively seizing, patient had 3 witnessed seizures upon arriving, 20g IV placed in left elbow, patient administered medications per verbal order, MAR orders placed afterwords. patient partner at bedside states he was generally feeling unwell and was initially coming in today for pain the left side of his ribs. partner states patient was recently discharged from [facility] after breakthrough seizures and required to be intubated, which turned into him requiring a few rounds of CPR. patient seen here recently for rib pain, upon becoming more alert patient endorsing 10/10 pain in his ribs. provider aware. patient PERRLA, equal strength noted to all extremities. patient on cardiac catheterization technologist, remains tachy in the 120s. VS otherwise WNL, patient denies recent fevers or sick contacts. CT and xray completed.
[2024-06-26 12:31] LABS: Influenza A PCR NEGATIVE (Negative); Influenza B PCR NEGATIVE (Negative); Resp Syncy Virus RNA Qual PCR NEGATIVE (Negative); SARS COV2 PCR INHOUSE NEGATIVE (Negative)
[2024-06-26 12:33] LABS: Alanine Aminotransferase 38 U/L (0-40); Albumin Level 3.8 g/dL (3.5-5.0); Alkaline Phosphatase 110 U/L (39-117); Anion Gap 14 (12-20); Aspartate Amino Transferase 38 U/L (5-37); Bilirubin Total 0.4 mg/dL (0.0-1.0); Blood Urea Nitrogen 9 mg/dL (9-16); Calcium 9.9 mg/dL (8.4-10.2); Carbon Dioxide 19 mmol/L (22-29); Chloride 109 mmol/L (96-108); Creatinine Clr Calc Pharmacy 71.8; Estimated Glomerular Filt Rate > 60; Glucose Random 141 mg/dL (60-115); Magnesium 2.1 mg/dL (1.6-2.6); Potassium 3.8 mmol/L (3.3-5.1); Sodium 138 mmol/L (135-145); Total Protein 8.5 g/dL (6.5-8.0)
[2024-06-26] MEDS: LORazepam 2 MG/ML VIAL IVPUSH (12:55)
[2024-06-26] MEDS: SODIUM CHLORIDE 0.9% IV (13:15)
[2024-06-26] MEDS: PHENOBARBITAL SODIUM IV (13:15)
--- NOTE | 2024-06-26 13:25 | PC.NURSE ---
this RN called into room, per RN Laura patient began seizing again, patient medicated, provider immediately to bedside
--- NOTE | 2024-06-26 13:30 | PC.NURSE ---
patient noted to be hyptensive, provider made aware, patient to recieve 1L NS per verbal order. asbestos pipe supervisor at bedside
[2024-06-26] MEDS: 0.9 % Sodium Chloride 1,000 ML 999 ML IV (13:40)
[2024-06-26 13:55] LABS: Troponin-I High Sensitivity < 2.7 ng/L (<3.5-35.0)
[2024-06-26] MEDS: Midazolam HCl/PF 2 MG/2 ML VIAL 5 MG IVPUSH (13:55)
[2024-06-26] MEDS: Lactated Ringers 1,000 ML 100 ML IVCONT ×2 (13:57→15:43)
[2024-06-26] MEDS: Enoxaparin Sodium 40 MG/0.4 ML SYRINGE SUBCUT (13:58)
[2024-06-26] MEDS: Famotidine/PF 20 MG/2 ML VIAL IVPUSH ×2 (13:59→19:47)
--- NOTE | 2024-06-26 14:00 | PC.NURSE ---
delay in phenytoin administration due to central line insertion, patient tolerated procedure well. patient medicated per MAR
--- NOTE | 2024-06-26 14:09 | PC.NURSE ---
attempt to call report to ICU
--- NOTE | 2024-06-26 14:20 | PC.NURSE ---
report called, patient to be transported to ICU
[2024-06-26] MEDS: Lactated Ringers 1,000 ML 999 ML IV ×2 (14:41→16:30)
--- NOTE | 2024-06-26 14:50 | PHA.MEDREC ---
Addendum entered by Immanuel Jarrett 06/26/24 15:36: reviewed, will let provider know the morphine was confirmed by partner but unsure when last taken. Was last filled for an 11 day supply at q6h prn for pain. Original Note: Pharmacy Consult ? Medication Reconciliation Pharmacy has completed the medication reconciliation. Spoke to patient partner Jonathan. Jonathan confirmed what the patient was taking. He stated the patient is not taking the Levothyroxine 25mcg tabs anymore, even tho it was just filled for 90 days and states he is not sure when he stopped that. He also confirmed the Ozempic but did not know when he takes it during the week. He also confirmed he is taking the Isentress HD 600mg tabs and taking it 2 tabs (1200mg) daily. He was able to confirm the patients Morphine 15mg tab and states he only takes it as needed for the pain. He is not sure when the patient last took his medications.
--- NOTE | 2024-06-26 15:44 | P.HPCC_ITS ---
History of Present Illness Date of Service: 06/26/24 Chief Complaint: Status epilepticus Jerome Naylor is a 48-year-old male with past medical history of seizure disorder since childhood, HIV on medications, AAA status post repair, DVT presents to the ED after he started feeling weird this morning. Apparently patient seizures was under very well control but on 10 of June he was admitted to [facility] due to multiple seizures needing intubation, CPR at some point leading to multiple rib fractures, DVT in the left lower extremity. He was discharged after 3 days, since he was discharged he did not have any further seizures. He has been having on and off chills for the past several days but no fever, diarrhea, no vomiting, no cough. This morning when he woke up he was okay he went to take shower around 11 in the morning when he felt he was going to get a seizure so presented to the ED. In the ED patient had generalized tonic-clonic seizures was treated with benzodiazepines initially but patient had 4 more episodes of seizures for which he got 20 mg of Versed in total, phenobarbital and phenytoin loading doses so MICU was consulted for admission. Review of Systems 2 Review of Systems: Unable to obtain as patient is drowsy PMFSH Past Medical History Medical History Left sided abdominal pain COVID-19 DVT (deep venous thrombosis) Diabetes Seizure disorder HIV (human immunodeficiency virus infection) Surgical History Surgical History Status post cholecystectomy Status post laparoscopic appendectomy H/O fasciotomy S/P AAA (abdominal aortic aneurysm) repair S/P IVC filter Social History Social History Alcohol intake: never Patient Tobacco Use Status: Former Tobacco user Smoked in Last 30 Days: No Use of substances other than those prescribed or required for medical reasons: No Advance Directives: Yes Advance Directives Information Provided: Yes Advance Directives on File: No Meds Allergies Allergy/AdvReac Type Severity Reaction Status Date / Time influenza virus vaccine, Allergy Severe GUILLIAN Verified 06/26/24 11:53 specific BARRE HX. [FLU VACCINE] tramadol [TRAMADOL] Allergy Severe SEIZURES Verified 06/26/24 11:53 acetaminophen [From PERCOCET] Allergy Intermediate ITCHING Verified 06/26/24 11:53 carbamazepine [From TEGRETOL] Allergy Intermediate HALLUCINATI Verified 06/26/24 11:53 ONS lamotrigine [From LAMICTAL] Allergy Intermediate ITCHING Verified 06/26/24 11:53 metoclopramide [From REGLAN] Allergy Intermediate ITCHY Verified 06/26/24 11:53 oxycodone [From PERCOCET] Allergy Intermediate ITCHING Verified 06/26/24 11:53 SEAFOOD Allergy Severe ANAPHYLAXIS Uncoded 06/26/24 11:53 Active Medications: Current Medications Enoxaparin Sodium (Enoxaparin Sodium 40 Mg/0.4 Ml Syringe) 40 mg SUBCUT Q24H [facility] Last Admin: 06/26/24 13:58 Dose: 40 mg Famotidine (Famotidine/Pf 20 Mg/2 Ml Vial) 20 mg IVPUSH BID [facility] Last Admin: 06/26/24 13:59 Dose: 20 mg Lactated Ringer's (Lr) 1,000 mls @ 100 mls/hr IVCONT .Q10H [facility] Last Admin: 06/26/24 13:57 Dose: 100 mls/hr Lactated Ringer's (Lr) 1,000 mls @ 999 mls/hr IV .Q1H1M [facility] Stop: 06/26/24 16:45 Midazolam HCl (Midazolam Hcl/Pf 2 Mg/2 Ml Vial) 4 mg IM Q4H PRN PRN Reason: Seizures Ondansetron HCl (Ondansetron Hcl 4 Mg/2 Ml Vial) 4 mg IVPUSH Q8H PRN PRN Reason: Nausea and Vomiting Home Medications ?Medication ?Instructions ?Recorded ?Confirmed ?Last Taken ?Type albuterol sulfate 90 mcg/actuation 2 inh inhalation Q4H PRN 06/26/24 06/26/24 Unknown History aerosol inhaler (Ventolin HFA) wheezing/sob atorvastatin 80 mg tablet 80 mg PO DAILY 06/26/24 06/26/24 Unknown History azelastine 0.05 % eye drops 1 drp ophthalmic-Left BID 06/26/24 06/26/24 Unknown History cholecalciferol (vitamin D3) 50 50 mcg PO DAILY 06/26/24 06/26/24 Unknown History mcg (2,000 unit) capsule darunavir 800 mg-cobicistat 150 mg 1 tab DAILY 06/26/24 06/26/24 Unknown History tablet (Prezcobix) empagliflozin 25 mg tablet 25 mg PO DAILY 06/26/24 06/26/24 Unknown History (Jardiance) famotidine 20 mg tablet 40 mg PO DAILY 06/26/24 06/26/24 Unknown History fondaparinux 7.5 mg/0.6 mL 7.5 mg subcut DAILY 06/26/24 06/26/24 Unknown History subcutaneous solution syringe lacosamide 100 mg tablet (Vimpat) 100 mg PO BID 06/26/24 06/26/24 Unknown History levothyroxine 25 mcg tablet 25 mcg PO DAILY 06/26/24 06/26/24 Unknown History pantoprazole 40 mg tablet,delayed 40 mg PO DAILY 06/26/24 06/26/24 Unknown History release raltegravir 600 mg tablet 1,200 mg PO BID 06/26/24 06/26/24 Unknown History (Isentress HD) semaglutide 0.25 mg or 0.5 mg (2 0.5 mg subcut QWEEK 06/26/24 06/26/24 Unknown History mg/3 mL) subcutaneous pen injector (Ozempic) tenofovir disoproxil fumarate 300 300 mg PO DAILY 06/26/24 06/26/24 Unknown History mg tablet trazodone 150 mg tablet 150 mg PO BEDTIME 06/26/24 06/26/24 Unknown History Physical Exam 2 Vital Signs: Vital Signs: Last Vital Signs Temp 97.2 F 06/26/24 14:38 Pulse 100 06/26/24 15:00 Resp 16 06/26/24 15:00 BP 90/57 L 06/26/24 15:00 Pulse Ox 98 06/26/24 15:00 O2 Del Method Nasal Cannula 06/26/24 15:00 O2 Flow Rate 2 06/26/24 15:00 Oxygen Flow Rate 2 06/26/24 11:51 BMI result Body Mass Index 26.9 General: Not in acute distress, drowsy Nutritional Appearance: Normal nourished and normal weight Eyes: appearance normal, both eyes and all related structures; Alignment and Position: alignment normal and position normal Neck: No lymphadenopathy, no thyromegaly Resp: bilateral air entry equal, occasional added sounds present Cardio: Regular rate, regular rhythm; Heart sounds: S1 normal heart sound present and S2 normal heart sound present GI: soft, nontender, no guarding, no hepatosplenomegaly : bladder normal to inspection, bladder normal to palpation, no renal angle tenderness Skin: no rashes or lesions noted and elasticity normal Neuro: Drowsy, poorly responsive for pain Results Labs 06/26/24 11:46 06/26/24 12:08 Labs: Laboratory Results - last 24 hr 06/26/24 06/26/24 06/26/24 11:29 11:46 12:08 MCV 92.0 MCH 29.0 MCHC 31.5 RDW 15.6 Plt Count 214 D MPV 9.5 Immature Gran % (Auto) 0.2 Neut % (Auto) 38.0 L Lymph % (Auto) 52.3 H [place] % (Auto) 8.5 Eos % (Auto) 0.5 Baso % (Auto) 0.5 Lymph # (Auto) 3.0 [place] # (Auto) 0.5 Eos # (Auto) 0.0 Baso # (Auto) 0.0 Abs Immat Gran (auto) 0.01 Absolute Neuts (auto) 2.2 Absolute Nucleated RBC 0.000 Nucleated RBC % (auto) 0.0 PT 11.7 INR 1.0 APTT 26.5 Anion Gap 14 Estim Creat Clear Calc 71.8 Estimated GFR > 60 POC Glucose 196 H Random Glucose 141 H Calcium 9.9 D Magnesium 2.1 Total Bilirubin 0.4 AST 38 H ALT 38 Alkaline Phosphatase 110 Troponin I High Sens < 2.7 Total Protein 8.5 H Albumin 3.8 Influenza Type A (PCR) NEGATIVE Influenza Type B (PCR) NEGATIVE RSV RNA Qual (PCR) NEGATIVE SARS-CoV-2 RNA (RT-PCR) NEGATIVE Imaging Radiologist's Impressions: Impressions Head CT 06/26/24 11:27 IMPRESSION: No acute intracranial pathology. Electronically signed by: David Heaton MD 06/26/2024 01:12 PM EDT RP Chest X-Ray 06/26/24 11:28 IMPRESSION: Normal chest. Electronically signed by: David Heaton MD 06/26/2024 12:49 PM EDT RP Assessment and Plan (1) AAA (abdominal aortic aneurysm): Status: Acute (2) Popliteal artery aneurysm: Status: Acute (3) DVT (deep venous thrombosis): Status: Acute (4) Status post cholecystectomy: Status: Acute Plan Status epilepticus: Acute encephalopathy: Patient has acute encephalopathy secondary to seizures and status epilepticus. He had 4 episodes of seizures in the ED receiving a total of 20 mg of Versed, phenobarbital loading dose and phenytoin loading dose We will continue to closely monitor in the ICU for any further seizure episodes, if any seizures we will give p.r.n. Versed and we will add Keppra CT of the brain did not show any acute intracranial pathology HIV: We will restart home medications tomorrow DVT: We will do therapeutic dose enoxaparin as unsure if the patient will be able to take any oral medications soon Prophylaxis: Lovenox, famotidine Patient is afebrile, normal white cell count presented with seizures and status epilepticus. There is no suspicion or evidence for sepsis or infection, patient did not receive any antibiotics. Total time managing care of this patient today: 35 minutes.
[2024-06-26 15:57] LABS: Phosphorus 1.5 mg/dL (2.7-4.5)
--- NOTE | 2024-06-26 16:41 | PC.NURSE ---
Patient arrived to unit obtundant after sedation in ED, unable to clear own secretions and oral suction completed with noted gag reflux, cough still weak, MD at bedside and aware, 1l LR given on arrival due to Map below 65 as ordered per MD, coughing and able to clear own secretions noted approx 1hour after arrival, Map continued to drop and second ordered Liter of LR started.
[2024-06-26] MEDS: Potassium Phosphate/NS 15 MMOL/250 ML PLAST..BAG 62.5 MMOL IV ×2 (18:22→22:20)
[2024-06-26 18:26] LABS: Appearance Urine Clear; Color Urine Yellow; Glucose Urine UA >=1000 mg/dL (Negative); Leukocyte Esterase Urine Negative (Negative); Nitrite Urine Negative (Negative); PH 6.5 (5.0-9.0); Specific Gravity - Urine >= 1.030 (1.005-1.025); UMIC TRIGGER UACC YES; Urine Blood Negative (Negative); Urine Ketones Negative (Negative); Urine Protein Negative (Neg-Trace)
[2024-06-26 18:37] LABS: Bacteria Urine None Seen (None Seen); Hyaline Casts Urine 0-2 /LPF (0-2); RBC Urine 0-2 /HPF (0-2); Squamous Epithelial Cell Urine 0-2 /HPF (0-2); WBC Urine 0-5 /HPF (0-5)
[2024-06-26] MEDS: Enoxaparin Sodium 80 MG/0.8 ML SYRINGE SUBCUT (19:45)
[2024-06-26] MEDS: levETIRAcetam 750 MG in 0.9 % Sodium Chloride 100 ML 430 MG IV (22:36)
[2024-06-26 22:49] LABS: Glucose, Whole Blood 75 mg/dL (60-115)
[2024-06-26] MEDS: Dextrose 10 % 250 ML 750 ML IV (22:57)
[2024-06-26 23:12] LABS: Anion Gap 10 (12-20); Blood Urea Nitrogen 6 mg/dL (9-16); Calcium 7.4 mg/dL (8.4-10.2); Carbon Dioxide 20 mmol/L (22-29); Chloride 114 mmol/L (96-108); Creatinine Clr Calc Pharmacy 116.2; Estimated Glomerular Filt Rate > 60; Glucose Random 72 mg/dL (60-115); Phosphorus 3.3 mg/dL (2.7-4.5); Potassium 3.5 mmol/L (3.3-5.1); Sodium 140 mmol/L (135-145)
[2024-06-27] VITALS (21 sets, daily range): BP systolic 97–116; BP diastolic 62–78; PULSE 78–92; RESP 11–21; TEMP 36.6–37.2; O2SAT 96–99; BMI 26.9
--- NOTE | 2024-06-27 | EEG_ITS ---
This is a 16 channel EEG with an EKG lead. The patient is reported drowsy during the tracing. Background EEG rhythm is 16 to 20 hertz, 5 to 50 microvolt posteriorly and lower amplitude fast anteriorly. Photic stimulation does not produce any significant driving. Hyperventilation is not performed. Cardiac lead does not reveal any significant abnormality. No sharp wave spikes or paroxysmal tendency noted. IMPRESSION: Unremarkable EEG. MD ANGEL Negro/BETSY / [phone]
[2024-06-27 01:05] LABS: Glucose, Whole Blood 91 mg/dL (60-115)
[2024-06-27 02:12] LABS: Glucose, Whole Blood 81 mg/dL (60-115)
[2024-06-27] MEDS: Lactated Ringers 1,000 ML 100 ML IVCONT ×2 (03:35→14:50)
--- NOTE | 2024-06-27 04:26 | PC.NURSE ---
At approx 0030- patient complaining of 10/10 pain to bilateral legs and left ribs. Patient still somewhat somnolent, this RN educated patient on contraindications of pain medication at this time r/t drowsiness and decreased LOC. Approx 0100- this RN and resource RN noticed patient rigidity and repetitive hand movements while unresponsive to verbal stimuli by this RN. Patient fluttered eyes to sternal rub, and pupils equal round and reactive. HR 90s-100s, SpO2 >98% on 2L NC, RR equal and unlabored. ANA Randall notified and to bedside immediately for evaluation. ANA Randall assessed patient alongside this RN. Patient still not responding to name or simple commands. Prior assessment of patient at 0000 patient was able to answer all orientation questions. Resource RN obtained POC, see lab results. ANA Randall explained to this RN s/s of seizures that are noteworthy. ANA Randall explained to patient that additional medication with sedative effects would not be administered for patient safety. Per ANA Randall, no further interventions are due at this time. This RN repositioned patient in bed to promote comfort. Shortly after incident, patient was alert and able to operate mobile phone without issues. Bed locked in lowest position, bed alarm on, avasys camera in place, call arnold within reach.
[2024-06-27 05:47] LABS: MANUAL DIFF FLAG NO
[2024-06-27 05:49] LABS: Basophils Percent Auto 0.5 % (0-2); Eosinophils Percent Auto 0.8 % (0-4); Hematocrit 34.4 % (42.0-52.0); Hemoglobin 11.4 g/dl (14.0-18.0); Imm Gran Abs Auto 0.01 X10*3/uL (0.00-0.03); Imm Gran Pct Auto 0.3 % (0.0-0.4); Lymphocytes Percent Auto 50.5 % (20-40); Mean Corpuscular HGB Conc 33.1 g/dl (31.0-36.0); Mean Corpuscular Hemoglobin 29.1 pg (27.0-33.0); Mean Corpuscular Volume 87.8 fL (80.0-98.0); Mean Platelet Volume 9.3 fL (9.4-12.4); Monocytes Absolute Auto 0.3 X10*3/uL (0.1-1.2); Monocytes Percent Auto 8.2 % (2-11); Neutrophils Absolute Auto 1.6 x10*3/uL (2.0-8.3); Neutrophils Percent Auto 39.7 % (45-73); Platelet Count 192 X10*3/uL (160-400); Red Blood Count 3.92 X10*6/uL (4.60-5.80); Red Cell Distribution Width 15.5 % (11.0-16.0); White Blood Count 3.9 X10*3/uL (4.8-10.8)
[2024-06-27 06:05] LABS: Anion Gap 12 (12-20); Blood Urea Nitrogen 6 mg/dL (9-16); Calcium 8.6 mg/dL (8.4-10.2); Carbon Dioxide 21 mmol/L (22-29); Chloride 108 mmol/L (96-108); Estimated Glomerular Filt Rate > 60; Glucose Random 79 mg/dL (60-115); Magnesium 1.9 mg/dL (1.6-2.6); Potassium 4.2 mmol/L (3.3-5.1); Sodium 137 mmol/L (135-145)
[2024-06-27 06:23] LABS: Glucose, Whole Blood 84 mg/dL (60-115)
[2024-06-27 07:03] LABS: Prolactin 13.1 ng/mL (2.0-18.0)
[2024-06-27] MEDS: OLANZapine 10 MG VIAL 5 MG IM (07:51)
--- NOTE | 2024-06-27 09:35 | MHC.CM.PN ---
IMM DELIVERED PT LIVES WITH S/O WHO IS ALSO HIS [employer] (24 HRS) THROUGH [facility]. . INDEPENDENT AT BASELINE. + HCP (S/O BELIEVES [facility] HAS A COPY) PCP [facility] DP: HOME, RESUME [employer] SERVICES IS THE GOAL. S/O WILL TRANSPORT. CM WILL CONTINUE TO FOLLOW FOR ANY CHANGE TO DC PLAN/NEEDS.
[2024-06-27] MEDS: Famotidine/PF 20 MG/2 ML VIAL IVPUSH ×2 (10:55→22:59)
[2024-06-27] MEDS: Enoxaparin Sodium 80 MG/0.8 ML SYRINGE SUBCUT ×2 (10:59→23:00)
[2024-06-27] MEDS: Lacosamide 100 MG TABLET PO (11:03)
[2024-06-27] MEDS: Tenofovir Disoproxil Fumarate 300 MG TABLET PO (11:03)
[2024-06-27] MEDS: levETIRAcetam 750 MG in 0.9 % Sodium Chloride 100 ML 430 MG IV (11:09)
[2024-06-27] MEDS: Haloperidol Lactate 5 MG/ML VIAL 2 MG IM (11:25)
[2024-06-27 12:52] LABS: Glucose, Whole Blood 94 mg/dL (60-115)
--- NOTE | 2024-06-27 15:14 | PM.CCPN ---
Subjective Subjective Date of Service: 06/27/24 Critical Care Time (minutes): 35 Comment: He had 2 episodes of prolonged non-epileptiform movements this morning The 1st episode in the morning was around 07:15 which lasted for few minutes and was aborted with IM Zyprexa 2nd episode was around noon time while his body was stiff and later shaking we placed a NG tube through the left nostril for gastric suction to prevent any aspiration. Post placing NG tube while the patient was still having the abnormal movements when I asked him if his seizures was getting better he states his seizures are still the same. He also state that [facility] had taken poor care of him and that is why he is still having the seizures and patient continued to have abnormal moments in all 4 extremities. Reviewed the chart from [facility] 15 days ago when he was intubated for the same, he underwent video EEG for about 24 hours part of this time was while he was intubated, part of this time was when he was extubated which showed no epileptiform activity and the neurologist recommended to stop all antiepileptics. Physical Exam Vital Signs: Vital Signs: Last Vital Signs Temp 98.8 F 06/27/24 12:00 Pulse 78 06/27/24 14:00 Resp 18 06/27/24 14:00 BP 113/78 06/27/24 14:00 Pulse Ox 96 06/27/24 14:00 O2 Del Method Room Air 06/27/24 14:00 O2 Flow Rate 2 06/27/24 00:00 Oxygen Flow Rate 2 06/26/24 11:51 BMI result Body Mass Index 26.9 General: Not in acute distress, poorly responsive Nutritional Appearance: well nourished and overweight Eyes: appearance normal, both eyes and all related structures; Alignment and Position: alignment normal and position normal Neck: No lymphadenopathy, no thyromegaly Resp: bilateral air entry equal, occasional added sounds present Cardio: Regular rate, regular rhythm; Heart sounds: S1 normal heart sound present and S2 normal heart sound present GI: soft, nontender, no guarding, no hepatosplenomegaly : bladder normal to inspection, bladder normal to palpation, no renal angle tenderness Skin: no rashes or lesions noted and elasticity normal Neuro: oriented to person, oriented to place, oriented to time and moves all extremities Objective Data Labs 06/27/24 05:17 06/27/24 05:17 Labs: Laboratory Results - last 24 hr 06/26/24 06/26/24 06/26/24 12:08 16:22 18:04 WBC RBC Hgb Hct MCV MCH MCHC RDW Plt Count MPV Immature Gran % (Auto) Neut % (Auto) Lymph % (Auto) [place] % (Auto) Eos % (Auto) Baso % (Auto) Lymph # (Auto) [place] # (Auto) Eos # (Auto) Baso # (Auto) Abs Immat Gran (auto) Absolute Neuts (auto) Absolute Nucleated RBC Nucleated RBC % (auto) Sodium Potassium Chloride Carbon Dioxide Anion Gap BUN Creatinine Estim Creat Clear Calc Estimated GFR POC Glucose Random Glucose Calcium Phosphorus 1.5 L Magnesium Total Creatine Kinase 185 H Prolactin 13.1 Urine Color Yellow Urine Appearance Clear Urine pH 6.5 Ur Specific [place] >= 1.030 H Urine Protein Negative Urine Glucose (UA) >=1000 H Urine Ketones Negative Urine Blood Negative Urine Nitrite Negative Ur Leukocyte Esterase Negative Urine RBC 0-2 Urine WBC 0-5 Ur Squamous Epith Cells 0-2 Urine Bacteria None Seen Hyaline Casts 0-2 06/26/24 06/26/24 06/27/24 22:43 22:50 01:00 WBC RBC Hgb Hct MCV MCH MCHC RDW Plt Count MPV Immature Gran % (Auto) Neut % (Auto) Lymph % (Auto) [place] % (Auto) Eos % (Auto) Baso % (Auto) Lymph # (Auto) [place] # (Auto) Eos # (Auto) Baso # (Auto) Abs Immat Gran (auto) Absolute Neuts (auto) Absolute Nucleated RBC Nucleated RBC % (auto) Sodium 140 Potassium 3.5 Chloride 114 H Carbon Dioxide 20 L Anion Gap 10 L BUN 6 L Creatinine 0.76 Estim Creat Clear Calc 116.2 Estimated GFR > 60 POC Glucose 75 91 Random Glucose 72 Calcium 7.4 L D Phosphorus 3.3 Magnesium Total Creatine Kinase Prolactin Urine Color Urine Appearance Urine pH Ur Specific [place] Urine Protein Urine Glucose (UA) Urine Ketones Urine Blood Urine Nitrite Ur Leukocyte Esterase Urine RBC Urine WBC Ur Squamous Epith Cells Urine Bacteria Hyaline Casts 06/27/24 06/27/24 06/27/24 02:07 05:17 06:20 WBC 3.9 L RBC 3.92 L D Hgb 11.4 L D Hct 34.4 L D MCV 87.8 MCH 29.1 MCHC 33.1 RDW 15.5 Plt Count 192 MPV 9.3 L Immature Gran % (Auto) 0.3 Neut % (Auto) 39.7 L Lymph % (Auto) 50.5 H [place] % (Auto) 8.2 Eos % (Auto) 0.8 Baso % (Auto) 0.5 Lymph # (Auto) 2.0 [place] # (Auto) 0.3 Eos # (Auto) 0.0 Baso # (Auto) 0.0 Abs Immat Gran (auto) 0.01 Absolute Neuts (auto) 1.6 L Absolute Nucleated RBC 0.000 Nucleated RBC % (auto) 0.0 Sodium 137 Potassium 4.2 Chloride 108 Carbon Dioxide 21 L Anion Gap 12 BUN 6 L Creatinine 0.92 Estim Creat Clear Calc 96.0 Estimated GFR > 60 POC Glucose 81 84 Random Glucose 79 Calcium 8.6 D Phosphorus Magnesium 1.9 Total Creatine Kinase Prolactin Urine Color Urine Appearance Urine pH Ur Specific [place] Urine Protein Urine Glucose (UA) Urine Ketones Urine Blood Urine Nitrite Ur Leukocyte Esterase Urine RBC Urine WBC Ur Squamous Epith Cells Urine Bacteria Hyaline Casts 06/27/24 12:48 WBC RBC Hgb Hct MCV MCH MCHC RDW Plt Count MPV Immature Gran % (Auto) Neut % (Auto) Lymph % (Auto) [place] % (Auto) Eos % (Auto) Baso % (Auto) Lymph # (Auto) [place] # (Auto) Eos # (Auto) Baso # (Auto) Abs Immat Gran (auto) Absolute Neuts (auto) Absolute Nucleated RBC Nucleated RBC % (auto) Sodium Potassium Chloride Carbon Dioxide Anion Gap BUN Creatinine Estim Creat Clear Calc Estimated GFR POC Glucose 94 Random Glucose Calcium Phosphorus Magnesium Total Creatine Kinase Prolactin Urine Color Urine Appearance Urine pH Ur Specific [place] Urine Protein Urine Glucose (UA) Urine Ketones Urine Blood Urine Nitrite Ur Leukocyte Esterase Urine RBC Urine WBC Ur Squamous Epith Cells Urine Bacteria Hyaline Casts Progress Note: A&P Assessment and plan (1) AAA (abdominal aortic aneurysm): Status: Acute (2) Popliteal artery aneurysm: Status: Acute (3) DVT (deep venous thrombosis): Status: Acute (4) Diabetes: Status: Acute (5) Status post cholecystectomy: Status: Acute (6) Status post laparoscopic appendectomy: Status: Acute (7) Left sided abdominal pain: Status: Acute Plan Non epileptiform movement disorder: The 1st episode in the morning was around 07:15 which lasted for few minutes and was aborted with IM Zyprexa 2nd episode was around noon time while his body was stiff and later shaking we placed a NG tube through the left nostril for gastric suction to prevent any aspiration. Post placing NG tube while the patient was still having the abnormal movements when I asked him if his seizures was getting better he states his seizures are still the same. He also state that [facility] had taken poor care of him and that is why he is still having the seizures and patient continued to have abnormal moments in all 4 extremities. Reviewed the chart from [facility] 15 days ago when he was intubated for the same, he underwent video EEG for about 24 hours part of this time was while he was intubated, part of this time was when he was extubated which showed no epileptiform activity and the neurologist recommended to stop all antiepileptics. He underwent EEG here this afternoon, results of which is pending CT of the head was normal did not show any acute intracranial pathology CPK normal, prolactin levels normal Psychiatry consulted, yet to see the patient. Quality Stroke Does the patient have a stroke diagnosis?: No VTE Prior VTE?: No VTE Risk Level:: Medical - low VTE Device Contraindication: N/A - Device Ordered VTE Drug Contraindication: N/A - Med Ordered
[2024-06-27] MEDS: COBICISTAT 150 MG PO (15:39)
[2024-06-27] MEDS: Darunavir Ethanolate 800 MG TABLET PO (15:39)
[2024-06-27 18:35] LABS: Glucose, Whole Blood 76 mg/dL (60-115)
[2024-06-27] MEDS: Raltegravir Potassium 400 MG TABLET PO (22:59)
[2024-06-27] MEDS: Lacosamide 100 MG TABLET G-TUBE (22:59)
[2024-06-28] MEDS: Lactated Ringers 1,000 ML 100 ML IVCONT (00:46)
[2024-06-28 01:48] LABS: Glucose, Whole Blood 69 mg/dL (60-115)
[2024-06-28] MEDS: Dextrose 10 % 250 ML 750 ML IV ×2 (02:00→06:19)
[2024-06-28 04:00] VITALS: BP 107/74; PULSE 84; RESP 12; TEMP 36.7; O2SAT 96
[2024-06-28 05:56] LABS: Glucose, Whole Blood 65 mg/dL (60-115)
[2024-06-28] MEDS: Levothyroxine Sodium 25 MCG TABLET PO (06:19)
[2024-06-28] MEDS: Dextrose 5 % and 0.45 % NaCl 1,000 ML 125 ML IVCONT (06:48)
[2024-06-28 07:05] LABS: Glucose, Whole Blood 150 mg/dL (60-115)
[2024-06-28 07:52] VITALS: BP 90/60; PULSE 90; RESP 16; TEMP 36.4; O2SAT 97
[2024-06-28 09:12] LABS: Prolactin 13.6 ng/mL (2.0-18.0)
[2024-06-28] MEDS: Lacosamide 100 MG TABLET G-TUBE (10:26)
[2024-06-28] MEDS: Raltegravir Potassium 400 MG TABLET PO (10:26)
[2024-06-28] MEDS: Empagliflozin 25 MG TABLET PO (10:27)
[2024-06-28] MEDS: Darunavir Ethanolate 800 MG TABLET PO (10:27)
[2024-06-28] MEDS: Enoxaparin Sodium 80 MG/0.8 ML SYRINGE SUBCUT (10:27)
[2024-06-28] MEDS: Tenofovir Disoproxil Fumarate 300 MG TABLET G-TUBE (10:27)
[2024-06-28] MEDS: COBICISTAT 150 MG PO (10:27)
[2024-06-28] MEDS: Atorvastatin Calcium 80 MG TABLET PO (10:27)
[2024-06-28] MEDS: Famotidine/PF 20 MG/2 ML VIAL IVPUSH (10:27)
--- NOTE | 2024-06-28 10:35 | PM.DS ---
DS: Providers Provider Date of Service: 06/28/24 Date of admission: 06/26/24 13:25 Date of discharge: 06/28/24 Primary care physician: Unknown Physician Consults: 06/27/24 08:26 Consult to Psychiatry Routine Consulting Provider: Psych Covering Reason for consultation: pseudoseizures Has provider been notified: No Attending physician on discharge: Gabriella Tavarez Discharging clinician: Gabriella Tavarez DS: Diagnosis Discharge Diagnosis (1) AAA (abdominal aortic aneurysm): Status: Acute (2) Popliteal artery aneurysm: Status: Acute (3) DVT (deep venous thrombosis): Status: Acute (4) Diabetes: Status: Acute (5) Status post cholecystectomy: Status: Acute (6) Status post laparoscopic appendectomy: Status: Acute (7) Left sided abdominal pain: Status: Acute DS: Summary Hospital Course Hospital Course: HPI: 48-year-old male with past medical history of seizure disorder since childhood, HIV on medications, AAA status post repair, DVT presents to the ED after he started feeling weird this morning. Apparently patient seizures was under very well control but on 10 of June he was admitted to [facility] due to multiple seizures needing intubation, CPR at some point leading to multiple rib fractures, DVT in the left lower extremity. He was discharged after 3 days, since he was discharged he did not have any further seizures. He has been having on and off chills for the past several days but no fever, diarrhea, no vomiting, no cough. This morning when he woke up he was okay he went to take shower around 11 in the morning when he felt he was going to get a seizure so presented to the ED. In the ED patient had generalized tonic-clonic seizures was treated with benzodiazepines initially but patient had 4 more episodes of seizures for which he got 20 mg of Versed in total, phenobarbital and phenytoin loading doses so MICU was consulted for admission. Hospital course: Patient was admitted to the ICU for question of seizure initially-patient received Versed, phenobarbital, phenytoin loading dose and then was monitored in the ICU for seizures, CT head and negative, EEG -normal.chart from as per chart review from icu:([facility] 15 days ago when he was intubated for the same, he underwent video EEG for about 24 hours part of this time was while he was intubated, part of this time was when he was extubated which showed no epileptiform activity and the neurologist recommended to stop all antiepileptics .) So possible above presentation likely nonepileptic form movements versus pseudo-seizure. plan: Patient is to follow-up out patiently with PCP and consider outpatient neurology evaluation. Above management discussed with the patient and his partner at bedside. They understand and in agreement with the above plan, Time spent 40 minute. Time Attestation Total time managing care of this patient today: 40 mintues. Discharge Coordination Time (in mins): 40 MIN Quality: Safe Use of Opioids Does Pt have an Active Cancer Diagnosis on the Problem List?: Yes Opioid Measure Date for [facility] Report: 05/29/24 Opioid Measure Time for [facility] Report: 14:10 Quality: Stroke Does the patient have a stroke diagnosis?: No Physical Exam Vital Signs: Vital Signs: Last Vital Signs Temp 97.5 F 06/28/24 07:52 Pulse 90 06/28/24 07:52 Resp 16 06/28/24 07:52 BP 90/60 06/28/24 07:52 Pulse Ox 97 06/28/24 07:52 O2 Del Method Room Air 06/28/24 07:52 O2 Flow Rate 2 06/27/24 00:00 Oxygen Flow Rate 2 06/26/24 11:51 BMI result Body Mass Index 26.9 Appearance: Alert.? Oriented X3. cvs: rrr, [id number] , no murmur res: clear to auscultation ,no rhonchii or wheezing abd: no rebound or guarding ,nt, bs present. ext pulses present , no cyanosis . neuro: axo3 , nonfocal. DS: Data Data Completed and Pending Labs on day of discharge: Laboratory Results - last 24 hr 06/26/24 06/27/24 06/27/24 22:01 12:48 18:31 POC Glucose 94 76 Prolactin 13.6 06/28/24 06/28/24 06/28/24 01:43 05:52 06:59 POC Glucose 69 65 150 H Prolactin Imaging Chest x-ray: Radiologist's impression: ITS Impressions Head CT 06/26/24 11:27 IMPRESSION: No acute intracranial pathology. Electronically signed by: David Heaton MD 06/26/2024 01:12 PM EDT Chest X-Ray 06/26/24 11:28 IMPRESSION: Normal chest. Electronically signed by: David Heaton MD 06/26/2024 12:49 PM EDT RP Chest X-Ray 06/27/24 12:11 IMPRESSION: 1. Well-positioned NG tube. 2. No active pulmonary disease. 3. Borderline cardiac enlargement. Electronically signed by: David Heaton MD 06/27/2024 03:33 PM EDT RP Discharge Plan Discharge Anticipated Discharge Date/Time: 06/28/24 10:23 Patient Disposition: Home, Self-Care Discharge Diagnosis: possible pseudoseizure Referrals: Physician,Unknown J [Primary Care Provider] - 1 Week Discharge Medications: Continued morphine 15 mg tablet 15 mg PO Q6H PRN (Reason: pain) Qty: 10 0RF Rx Instructions: The patient may ask for partial fill; Partial Fill upon patient request. atorvastatin 80 mg tablet 80 mg PO DAILY famotidine 20 mg tablet 40 mg PO DAILY fondaparinux 7.5 mg/0.6 mL syringe 7.5 mg subcut DAILY lacosamide [Vimpat] 100 mg tablet 100 mg PO BID Ozempic 0.25 mg or 0.5 mg (2 mg/3 mL) pen injector 0.5 mg subcut QWEEK levothyroxine 25 mcg tablet 25 mcg PO DAILY pantoprazole 40 mg tablet,delayed release (DR/EC) 40 mg PO DAILY trazodone 150 mg tablet 150 mg PO BEDTIME tenofovir disoproxil fumarate 300 mg tablet 300 mg PO DAILY cholecalciferol (vitamin D3) 50 mcg (2,000 unit) capsule 50 mcg PO DAILY Jardiance 25 mg tablet 25 mg PO DAILY Prezcobix 800-150 mg-mg tablet 1 tab PO DAILY Isentress HD 600 mg tablet 600 mg PO BID azelastine 0.05 % drops 1 drp ophthalmic-Left BID albuterol sulfate [Ventolin HFA] 90 mcg/actuation HFA aerosol inhaler 2 inh inhalation Q4H PRN (Reason: wheezing/sob) Discharge Orders: Discharge Order (Routine); Ordered 06/28/24 Ordered By: Gabriella Tavarez Diet: Advance to usual diet Activity on Discharge: As tolerated Stand Alone Forms: Patient Portal Discharge page Print Language: Pashto Care Plan Goals: Patient was admitted to the ICU for question of seizure initially-patient received Versed, phenobarbital, phenytoin loading dose and then was monitored in the ICU for seizures, CT head and negative, EEG -normal.chart from [facility] 15 days ago when he was intubated for the same, he underwent video EEG for about 24 hours part of this time was while he was intubated, part of this time was when he was extubated which showed no epileptiform activity and the neurologist recommended to stop all antiepileptics. So possible above presentation likely nonepileptic form movements versus pseudo-seizure. Patient is to follow-up out patiently with PCP and consider outpatient neurology evaluation. Health Concerns: As above. Plan of Treatment: As above. Assessment: As above.
[2024-06-28 11:31] VITALS: BP 107/71; PULSE 93; RESP 20; TEMP 36.6; O2SAT 97
[2024-06-28 11:50] LABS: Glucose, Whole Blood 148 mg/dL (60-115)
--- NOTE | 2024-06-28 12:03 | MHC.CM.PN ---
PT WILL DC HOME TODAY WITH [employer] S/O TO TRANSPORT
--- NOTE | 2024-06-28 14:07 | PM.PSYCN ---
History of Present Illness Date of Service: 06/28/24 Chief Complaint: Status epilepticus Reason for Consult: pseudoseizures Sources of Information: patient interviewed and chart reviewed HPI Narrative: As per Admission note 06/26/24: 48-year-old male with past medical history of seizure disorder since childhood, HIV on medications, AAA status post repair, DVT presents to the ED after he started feeling weird this morning. Apparently patient seizures was under very well control but on 10 of June he was admitted to [facility] due to multiple seizures needing intubation, CPR at some point leading to multiple rib fractures, DVT in the left lower extremity. He was discharged after 3 days, since he was discharged he did not have any further seizures. He has been having on and off chills for the past several days but no fever, diarrhea, no vomiting, no cough. This morning when he woke up he was okay he went to take shower around 11 in the morning when he felt he was going to get a seizure so presented to the ED. In the ED patient had generalized tonic-clonic seizures was treated with benzodiazepines initially but patient had 4 more episodes of seizures for which he got 20 mg of Versed in total, phenobarbital and phenytoin loading doses so MICU was consulted for admission. Progress note 06/27/24: Non epileptiform movement disorder: The 1st episode in the morning was around 07:15 which lasted for few minutes and was aborted with IM Zyprexa 2nd episode was around noon time while his body was stiff and later shaking we placed a NG tube through the left nostril for gastric suction to prevent any aspiration. Post placing NG tube while the patient was still having the abnormal movements when I asked him if his seizures was getting better he states his seizures are still the same. He also state that [facility] had taken poor care of him and that is why he is still having the seizures and patient continued to have abnormal moments in all 4 extremities. Reviewed the chart from [facility] 15 days ago when he was intubated for the same, he underwent video EEG for about 24 hours part of this time was while he was intubated, part of this time was when he was extubated which showed no epileptiform activity and the neurologist recommended to stop all antiepileptics. Today: Met with pt and partner. Endorses mood disorder history- treatment through [facility] x 1 year. Denies depression, anxiety, sleep issues, SI, HI, psychosis. Partner confirms same. No substance issues or concerns. Stable home with partner, mom and nephew. Prev worked in [employer] in [place]. Raised possibility of seizures being epileptiform and non epileptiform ( stress ). Adamantly denied non epileptiform and stated epilepsy since teenage years. Past Psychiatric History: Inpt once in 1999 in [place]- reports this was after an argument with a provider who accused him of drug issues. [facility] now x 1 year services. Medical Evaluation Reviewed: Yes [facility] Medical History Left sided abdominal pain COVID-19 DVT (deep venous thrombosis) Diabetes Seizure disorder HIV (human immunodeficiency virus infection) Surgical History Status post cholecystectomy Status post laparoscopic appendectomy H/O fasciotomy S/P AAA (abdominal aortic aneurysm) repair S/P IVC filter Social History: Stable home with partner, mom and nephew. Prev worked in [employer] in [place]. Substance History: DENIED Diagnostics Vital Signs (24Hr): Vital Signs - 24 hr 06/27/24 15:00 06/27/24 16:00 06/27/24 17:00 Temperature Pulse Rate 79 87 90 Respiratory Rate 17 17 17 Blood Pressure 113/78 105/62 105/62 Pulse Oximetry 96 96 97 Oxygen Delivery Method Room Air Room Air Room Air 06/27/24 18:00 06/27/24 20:00 06/27/24 23:44 Temperature 99.0 F 97.9 F Pulse Rate 86 88 81 Respiratory Rate 18 17 18 Blood Pressure 104/64 101/63 100/72 Pulse Oximetry 97 98 96 Oxygen Delivery Method Room Air Room Air Room Air 06/28/24 04:00 06/28/24 07:52 06/28/24 11:31 Temperature 98.1 F 97.5 F 97.8 F Pulse Rate 84 90 93 Respiratory Rate 12 16 20 Blood Pressure 107/74 90/60 107/71 Pulse Oximetry 96 97 97 Oxygen Delivery Method Room Air Room Air Room Air BMI result Body Mass Index 26.9 Labs 06/27/24 05:17 06/27/24 05:17 Labs: Laboratory Results - last 48 hr 06/26/24 06/26/2424 12:08 16:22 18:04 WBC RBC Hgb Hct MCV MCH MCHC RDW Plt Count MPV Immature Gran % (Auto) Neut % (Auto) Lymph % (Auto) [place] % (Auto) Eos % (Auto) Baso % (Auto) Lymph # (Auto) [place] # (Auto) Eos # (Auto) Baso # (Auto) Abs Immat Gran (auto) Absolute Neuts (auto) Absolute Nucleated RBC Nucleated RBC % (auto) Sodium Potassium Chloride Carbon Dioxide Anion Gap BUN Creatinine Estim Creat Clear Calc Estimated GFR POC Glucose Random Glucose Calcium Phosphorus 1.5 L Magnesium Total Creatine Kinase 185 H Prolactin 13.1 Urine Color Yellow Urine Appearance Clear Urine pH 6.5 Ur Specific [place] >= 1.030 H Urine Protein Negative Urine Glucose (UA) >=1000 H Urine Ketones Negative Urine Blood Negative Urine Nitrite Negative Ur Leukocyte Esterase Negative Urine RBC 0-2 Urine WBC 0-5 Ur Squamous Epith Cells 0-2 Urine Bacteria None Seen Hyaline Casts 0-2 06/26/24 06/26/24 06/26/24 22:01 22:43 22:50 WBC RBC Hgb Hct MCV MCH MCHC RDW Plt Count MPV Immature Gran % (Auto) Neut % (Auto) Lymph % (Auto) [place] % (Auto) Eos % (Auto) Baso % (Auto) Lymph # (Auto) [place] # (Auto) Eos # (Auto) Baso # (Auto) Abs Immat Gran (auto) Absolute Neuts (auto) Absolute Nucleated RBC Nucleated RBC % (auto) Sodium 140 Potassium 3.5 Chloride 114 H Carbon Dioxide 20 L Anion Gap 10 L BUN 6 L Creatinine 0.76 Estim Creat Clear Calc 116.2 Estimated GFR > 60 POC Glucose 75 Random Glucose 72 Calcium 7.4 L D Phosphorus 3.3 Magnesium Total Creatine Kinase Prolactin 13.6 Urine Color Urine Appearance Urine pH Ur Specific [place] Urine Protein Urine Glucose (UA) Urine Ketones Urine Blood Urine Nitrite Ur Leukocyte Esterase Urine RBC Urine WBC Ur Squamous Epith Cells Urine Bacteria Hyaline Casts 06/27/24 06/27/24 06/27/24 01:00 02:07 05:17 WBC 3.9 L RBC 3.92 L D Hgb 11.4 L D Hct 34.4 L D MCV 87.8 MCH 29.1 MCHC 33.1 RDW 15.5 Plt Count 192 MPV 9.3 L Immature Gran % (Auto) 0.3 Neut % (Auto) 39.7 L Lymph % (Auto) 50.5 H [place] % (Auto) 8.2 Eos % (Auto) 0.8 Baso % (Auto) 0.5 Lymph # (Auto) 2.0 [place] # (Auto) 0.3 Eos # (Auto) 0.0 Baso # (Auto) 0.0 Abs Immat Gran (auto) 0.01 Absolute Neuts (auto) 1.6 L Absolute Nucleated RBC 0.000 Nucleated RBC % (auto) 0.0 Sodium 137 Potassium 4.2 Chloride 108 Carbon Dioxide 21 L Anion Gap 12 BUN 6 L Creatinine 0.92 Estim Creat Clear Calc 96.0 Estimated GFR > 60 POC Glucose 91 81 Random Glucose 79 Calcium 8.6 D Phosphorus Magnesium 1.9 Total Creatine Kinase Prolactin Urine Color Urine Appearance Urine pH Ur Specific [place] Urine Protein Urine Glucose (UA) Urine Ketones Urine Blood Urine Nitrite Ur Leukocyte Esterase Urine RBC Urine WBC Ur Squamous Epith Cells Urine Bacteria Hyaline Casts 06/27/24 06/27/24 06/27/24 06:20 12:48 18:31 WBC RBC Hgb Hct MCV MCH MCHC RDW Plt Count MPV Immature Gran % (Auto) Neut % (Auto) Lymph % (Auto) [place] % (Auto) Eos % (Auto) Baso % (Auto) Lymph # (Auto) [place] # (Auto) Eos # (Auto) Baso # (Auto) Abs Immat Gran (auto) Absolute Neuts (auto) Absolute Nucleated RBC Nucleated RBC % (auto) Sodium Potassium Chloride Carbon Dioxide Anion Gap BUN Creatinine Estim Creat Clear Calc Estimated GFR POC Glucose 84 94 76 Random Glucose Calcium Phosphorus Magnesium Total Creatine Kinase Prolactin Urine Color Urine Appearance Urine pH Ur Specific [place] Urine Protein Urine Glucose (UA) Urine Ketones Urine Blood Urine Nitrite Ur Leukocyte Esterase Urine RBC Urine WBC Ur Squamous Epith Cells Urine Bacteria Hyaline Casts 06/28/24 06/28/24 06/28/24 01:43 05:52 06:59 WBC RBC Hgb Hct MCV MCH MCHC RDW Plt Count MPV Immature Gran % (Auto) Neut % (Auto) Lymph % (Auto) [place] % (Auto) Eos % (Auto) Baso % (Auto) Lymph # (Auto) [place] # (Auto) Eos # (Auto) Baso # (Auto) Abs Immat Gran (auto) Absolute Neuts (auto) Absolute Nucleated RBC Nucleated RBC % (auto) Sodium Potassium Chloride Carbon Dioxide Anion Gap BUN Creatinine Estim Creat Clear Calc Estimated GFR POC Glucose 69 65 150 H Random Glucose Calcium Phosphorus Magnesium Total Creatine Kinase Prolactin Urine Color Urine Appearance Urine pH Ur Specific [place] Urine Protein Urine Glucose (UA) Urine Ketones Urine Blood Urine Nitrite Ur Leukocyte Esterase Urine RBC Urine WBC Ur Squamous Epith Cells Urine Bacteria Hyaline Casts 06/28/24 11:35 WBC RBC Hgb Hct MCV MCH MCHC RDW Plt Count MPV Immature Gran % (Auto) Neut % (Auto) Lymph % (Auto) [place] % (Auto) Eos % (Auto) Baso % (Auto) Lymph # (Auto) [place] # (Auto) Eos # (Auto) Baso # (Auto) Abs Immat Gran (auto) Absolute Neuts (auto) Absolute Nucleated RBC Nucleated RBC % (auto) Sodium Potassium Chloride Carbon Dioxide Anion Gap BUN Creatinine Estim Creat Clear Calc Estimated GFR POC Glucose 148 H Random Glucose Calcium Phosphorus Magnesium Total Creatine Kinase Prolactin Urine Color Urine Appearance Urine pH Ur Specific [place] Urine Protein Urine Glucose (UA) Urine Ketones Urine Blood Urine Nitrite Ur Leukocyte Esterase Urine RBC Urine WBC Ur Squamous Epith Cells Urine Bacteria Hyaline Casts Imaging Radiology Impressions: ITS Impressions Head CT 06/26/24 11:27 IMPRESSION: No acute intracranial pathology. Electronically signed by: David Heaton MD 06/26/2024 01:12 PM EDT RP Chest X-Ray 06/26/24 11:28 IMPRESSION: Normal chest. Electronically signed by: David Heaton MD 06/26/2024 12:49 PM EDT RP Chest X-Ray 06/27/24 12:11 IMPRESSION: 1. Well-positioned NG tube. 2. No active pulmonary disease. 3. Borderline cardiac enlargement. Electronically signed by: David Heaton MD 06/27/2024 03:33 PM EDT RP Mental Status Exam Mental Status Exam Patient Appearance: Appropriate Patient Orientation: Person, Place, Time and Situation Level of Consciousness: Awake Patient Behavior: Appropriate Mood Description: Calm Affect Description: Calm Patient Cognition Impaired: No Ability to Follow Directions: Good Speech Pattern: Clear Memory Description: Intact Hallucinations: None Delusions: Not Present Thought Process: Intact Thought Content: positive for Intact Judgement: Fair Medications Medications Current Medications Albuterol Sulfate (Albuterol Sulfate 90 Mcg 8 Gm Inhaler) 2 puff INHALE Q4H PRN PRN Reason: wheezing/sob Atorvastatin Calcium (Atorvastatin Calcium 80 Mg Tablet) 80 mg PO DAILY [facility] Last Admin: 06/28/24 10:27 Dose: 80 mg Cobicistat (Cobicistat 150 Mg Tablet) 150 mg PO DAILY [facility] Last Admin: 06/28/24 10:27 Dose: 150 mg Darunavir (Darunavir Ethanolate 800 Mg Tablet) 800 mg PO DAILY [facility] Last Admin: 06/28/24 10:27 Dose: 800 mg Empagliflozin (Empagliflozin 25 Mg Tablet) 25 mg PO DAILY [facility] Last Admin: 06/28/24 10:27 Dose: 25 mg Enoxaparin Sodium (Enoxaparin Sodium 80 Mg/0.8 Ml Syringe) 80 mg 1 mg/kg (80 mg) SUBCUT BID [facility] Last Admin: 06/28/24 10:27 Dose: 80 mg Famotidine (Famotidine/Pf 20 Mg/2 Ml Vial) 20 mg IVPUSH BID [facility] Last Admin: 06/28/24 10:27 Dose: 20 mg Dextrose (D10) 250 mls @ 750 mls/hr IV Q15M PRN PRN Reason: per Hypoglycemia Standing Ord. Last Infusion: 06/28/24 06:39 Dose: Infused Dextrose/Sodium Chloride (D51/2ns) 1,000 mls @ 125 mls/hr IVCONT .Q8H [facility] Last Admin: 06/28/24 12:36 Dose: Not Given Lacosamide (Lacosamide 100 Mg Tablet) 100 mg G-TUBE BID [facility] Last Admin: 06/28/24 10:26 Dose: 100 mg Levothyroxine Sodium (Levothyroxine Sodium 25 Mcg Tablet) 25 mcg PO DAILY@0600 [facility] Last Admin: 06/28/24 06:19 Dose: 25 mcg Lidocaine (Lidocaine 4 % Patch Adh..Patch) 1 patch TRANSDERMA DAILY [facility]; Protocol Last Admin: 06/28/24 10:41 Dose: Not Given Ondansetron HCl (Ondansetron Hcl 4 Mg/2 Ml Vial) 4 mg IVPUSH Q8H PRN PRN Reason: Nausea and Vomiting Raltegravir (Raltegravir Potassium 400 Mg Tablet) 400 mg PO BID [facility] Last Admin: 06/28/24 10:26 Dose: 400 mg Tenofovir Disoproxil Fumarate (Tenofovir Disoproxil Fumarate 300 Mg Tablet) 300 mg G-TUBE DAILY [facility] Last Admin: 06/28/24 10:27 Dose: 300 mg Trazodone HCl (Trazodone Hcl 50 Mg Tablet) 150 mg G-TUBE BEDTIME [facility] Last Admin: 06/27/24 23:32 Dose: Not Given Allergies Allergies Allergy/AdvReac Type Severity Reaction Status Date / Time influenza virus vaccine, Allergy Severe GUILLIAN Verified 06/26/24 11:53 specific BARRE HX. [FLU VACCINE] tramadol [TRAMADOL] Allergy Severe SEIZURES Verified 06/26/24 11:53 acetaminophen [From PERCOCET] Allergy Intermediate ITCHING Verified 06/26/24 11:53 carbamazepine [From TEGRETOL] Allergy Intermediate HALLUCINATI Verified 06/26/24 11:53 ONS lamotrigine [From LAMICTAL] Allergy Intermediate ITCHING Verified 06/26/24 11:53 metoclopramide [From REGLAN] Allergy Intermediate ITCHY Verified 06/26/24 11:53 oxycodone [From PERCOCET] Allergy Intermediate ITCHING Verified 06/26/24 11:53 SEAFOOD Allergy Severe ANAPHYLAXIS Uncoded 06/26/24 11:53 Assessment & Plan Assessment & Plan (1) Seizure disorder: Status: Acute Code(s): G40.909 - Epilepsy, unspecified, not intractable, without status epilepticus Plan No acute psychiatric issues noted after meeting with pt and partner. Witnessed epileptiform events yesterday. Team describe non epileptiform events today. Pt denies same or history of same. No indication for inpatient Psychiatry. No indication for med recs- has established outpatient services at [facility] and can continue same. No further recommendations. Signed off case Total time managing care of this patient today ____ minutes.
== END 2024-06-28 15:26 | disposition home or self-care (01) | DRG 101 ==
LOC: HO.ED 12:09 → HO.EDOVER 13:33 → HO.ICU 13:46 → HO.IMC 06-27 17:20
PROVIDERS: Physician Assistant Medical; Admitting Provider Internal Medicine Critical Care Medicine; Emergency Provider Emergency Medicine Emergency Medical Services; Visit Provider Internal Medicine
DX: R56.9 Unspecified convulsions (principal); E11.9 Type 2 diabetes mellitus without complications; Z20.822 Contact with and (suspected) exposure to COVID-19; Z86.718 Personal history of other venous thrombosis and embolism; Z79.890 Hormone replacement therapy; Z79.01 Long term (current) use of anticoagulants; Z79.899 Other long term (current) drug therapy
CPT/HCPCS: 0241U; 36415; 70450; 71045; 80048; 80053; 81001; 82550; 82947; 83735; 84100; 84146; 84484; 85025; 85610; 85730; 93005; 95816; 99285; J1165; J1630; J1650; J1953; J2060; J2250; J2359; J2560; J7120

== ENCOUNTER → 2024-06-26 11:26 | Outpatient (BNV) | payer MEDICARE, MEDICAID, SELFPAY | PROVIDERS: Admitting Provider Internal Medicine Critical Care Medicine; Emergency Provider Emergency Medicine Emergency Medical Services; Visit Provider Internal Medicine | DX: R00.0 Tachycardia, unspecified (principal) | CPT/HCPCS: 93010 ==

== ENCOUNTER → 2024-06-26 11:28 | Outpatient (BNV) | payer MEDICARE, MEDICAID, SELFPAY | PROVIDERS: Emergency Provider Emergency Medicine Emergency Medical Services; Visit Provider Radiology Diagnostic Radiology | DX: G40.89 Other seizures (principal) | CPT/HCPCS: 70450; 71045 ==

== ENCOUNTER 2024-06-26 13:25 | Outpatient (BNV) | payer MEDICARE, MEDICAID, SELFPAY | END 2024-06-27 11:48 | PROVIDERS: Admitting Provider Internal Medicine Critical Care Medicine; Emergency Provider Emergency Medicine Emergency Medical Services; Visit Provider Radiology Diagnostic Radiology | DX: Z43.1 Encounter for attention to gastrostomy (principal) | CPT/HCPCS: 71045 ==

== ENCOUNTER → 2024-06-26 13:25 | Outpatient (BNV) | payer MEDICARE, MEDICAID, SELFPAY | PROVIDERS: Admitting Provider Internal Medicine Critical Care Medicine; Emergency Provider Emergency Medicine Emergency Medical Services; Visit Provider Internal Medicine Critical Care Medicine | DX: I71.40 Abdominal aortic aneurysm, without rupture, unspecified (principal); I72.4 Aneurysm of artery of lower extremity; I82.409 Acute embolism and thrombosis of unspecified deep veins of unspecified lower extremity; E11.9 Type 2 diabetes mellitus without complications | CPT/HCPCS: 99222; 99291 ==

== ENCOUNTER → 2024-06-26 13:25 | Outpatient (BNV) | payer MEDICARE, MEDICAID, SELFPAY | PROVIDERS: Admitting Provider Internal Medicine Critical Care Medicine; Emergency Provider Emergency Medicine Emergency Medical Services; Visit Provider Internal Medicine | DX: I71.40 Abdominal aortic aneurysm, without rupture, unspecified (principal); I72.4 Aneurysm of artery of lower extremity; I82.409 Acute embolism and thrombosis of unspecified deep veins of unspecified lower extremity; E11.9 Type 2 diabetes mellitus without complications; Z90.49 Acquired absence of other specified parts of digestive tract; R10.9 Unspecified abdominal pain | CPT/HCPCS: 99239 ==

== ENCOUNTER → 2024-06-26 13:25 | Outpatient (BNV) | payer MEDICARE, MEDICAID, SELFPAY | PROVIDERS: Admitting Provider Internal Medicine Critical Care Medicine; Emergency Provider Emergency Medicine Emergency Medical Services; Visit Provider Psychiatry & Neurology Psychiatry | DX: Z86.59 Personal history of other mental and behavioral disorders (principal); G40.909 Epilepsy, unspecified, not intractable, without status epilepticus | CPT/HCPCS: 99222 ==

== ENCOUNTER 2024-09-25 13:37 | Inpatient (IN) | payer MEDICARE, MEDICAID, SELFPAY ==
--- NOTE | ~2024-09-25 | CT_ITS ---
CLINICAL HISTORY: pain, LGIB, INR CT angiogram abdomen and pelvis without/with contrast Multiplanar reconstructions and 3D processing Comparison: 06/06/2024 Findings: Arterial phase imaging bolus is suboptimal. Abdominal aortic stent graft is patent. Aorta normal caliber without dissection. No definite stent graft leak on this suboptimal study. Celiac, SMA and right renal artery origins patent. Left renal artery origin not well visualized due to artifact. RAMANA origin not well visualized as well. Bilateral iliac graft limbs are patent. External iliac and common femoral arteries unremarkable. Acute hemorrhage noted along left wall of rectum. Contrast noted within lumen on arterial phase images. Contrast disperses somewhat on delayed series. Rectal wall thickening with adjacent stranding noted. Findings are consistent with acute proctitis. Lung bases are clear. No acute bony abnormalities. Surgical clips in the anterior abdominal wall. Fatty infiltration of the liver without focal abnormality. Pancreas, spleen and adrenal glands unremarkable. Cholecystectomy. Bilateral kidneys demonstrate no focal abnormality. No renal stones or hydronephrosis. No free fluid or adenopathy in the pelvis. No acute diverticulitis. Appendectomy. Partial sigmoidectomy. Impression: Somewhat limited arterial assessment as above Acute hemorrhage noted inferior rectal vault Acute proctitis pattern This document has been electronically signed by: Guy Swartz MD on 09/25/2024 20:38:07
--- NOTE | 2024-09-25 13:39 | ECG_ITS ---
Test Reason : chest pain Blood Pressure : */* mmHG Vent. Rate : 91 BPM Atrial Rate : 91 BPM P-R Int : 146 ms QRS Dur : 90 ms QT Int : 362 ms P-R-T Axes : 48 33 16 degrees QTcB Int : 445 ms Normal sinus rhythm Normal ECG When compared with ECG of 26-Jun-2024 11:51, No significant change was found Referred By: Generic ED Physician Electronically Signed By: JEAN-PIERRE ALMEIDA
[2024-09-25 13:54] VITALS: BP 126/87; PULSE 95; RESP 20; TEMP 37.1; O2SAT 98; BMI 26.2
--- NOTE | 2024-09-25 13:56 | ED_ITS ---
HPI - General Adult General Chief complaint: General Medical Stated complaint: Chest pain, abd pain Time Seen by Provider: 09/25/24 18:10 Source: patient Limitations: language barrier History of Present Illness ED Provider: Alicia Tate PA-C HPI narrative: 49-year-old male with a HIV on heart therapy without a viral detectable load, presents with lower GI bleed since earlier today. Patient states he has developed discomfort across entire lower abdomen, he has been having multiple bloody bowel movements at home. Associated nausea but no vomiting. Denies fever. Patient states he has a DVT in his left lower extremity that was diagnosed last week at [facility]. The patient is currently on Coumadin. Last week is INR was 9.5. He was supposed to follow up with the Coumadin clinic tomorrow to have further medication adjustment. Related Data Home Medications ?Medication ?Instructions ?Recorded ?Confirmed albuterol sulfate 90 mcg/actuation 2 inh inhalation Q4H PRN 06/26/24 06/26/24 aerosol inhaler (Ventolin HFA) wheezing/sob atorvastatin 80 mg tablet 80 mg PO DAILY 06/26/24 06/26/24 azelastine 0.05 % eye drops 1 drp ophthalmic-Left BID 06/26/24 06/26/24 cholecalciferol (vitamin D3) 50 50 mcg PO DAILY 06/26/24 06/26/24 mcg (2,000 unit) capsule darunavir 800 mg-cobicistat 150 mg 1 tab PO DAILY 06/26/24 06/27/24 tablet (Prezcobix) empagliflozin 25 mg tablet 25 mg PO DAILY 06/26/24 06/26/24 (Jardiance) famotidine 20 mg tablet 40 mg PO DAILY 06/26/24 06/26/24 fondaparinux 7.5 mg/0.6 mL 7.5 mg subcut DAILY 06/26/24 06/26/24 subcutaneous solution syringe lacosamide 100 mg tablet (Vimpat) 100 mg PO BID 06/26/24 06/26/24 levothyroxine 25 mcg tablet 25 mcg PO DAILY 06/26/24 06/26/24 pantoprazole 40 mg tablet,delayed 40 mg PO DAILY 06/26/24 06/26/24 release raltegravir 600 mg tablet 600 mg PO BID 06/26/24 06/27/24 (Isentress HD) semaglutide 0.25 mg or 0.5 mg (2 0.5 mg subcut QWEEK 06/26/24 06/26/24 mg/3 mL) subcutaneous pen injector (Ozempic) tenofovir disoproxil fumarate 300 300 mg PO DAILY 06/26/24 06/26/24 mg tablet trazodone 150 mg tablet 150 mg PO BEDTIME 06/26/24 06/26/24 warfarin 10 mg tablet 10 mg PO DAILY 09/25/24 Previous Rx's ?Medication ?Instructions ?Recorded morphine 15 mg immediate release 15 mg PO Q6H PRN pain #10 tabs 12/26/23 tablet Allergies Allergy/AdvReac Type Severity Reaction Status Date / Time influenza virus vaccine, Allergy Severe GUILLIAN Verified 09/25/24 13:56 specific BARRE HX. [FLU VACCINE] tramadol [TRAMADOL] Allergy Severe SEIZURES Verified 09/25/24 13:56 acetaminophen [From PERCOCET] Allergy Intermediate ITCHING Verified 09/25/24 13:56 carbamazepine [From TEGRETOL] Allergy Intermediate HALLUCINATI Verified 09/25/24 13:56 ONS lamotrigine [From LAMICTAL] Allergy Intermediate ITCHING Verified 09/25/24 13:56 metoclopramide [From REGLAN] Allergy Intermediate ITCHY Verified 09/25/24 13:56 oxycodone [From PERCOCET] Allergy Intermediate ITCHING Verified 09/25/24 13:56 SEAFOOD Allergy Severe ANAPHYLAXIS Uncoded 06/26/24 11:53 Review of Systems 2 Review of Systems: Yes all other systems are reviewed and are negative Constitutional: Constitutional: Denies fatigue and Denies fever(s) Cardiovascular: Cardiovascular: Denies chest pain and Denies dyspnea Respiratory: Respiratory: Denies cough and Denies dyspnea Gastrointestinal: Gastrointestinal: Reports abdominal pain, Reports diarrhea, Reports nausea and Reports vomiting Endocrine: Endocrine: Denies fatigue PMFSH Past Medical History Attestation statement: The following information was validated with the patient. Medical History Left sided abdominal pain COVID-19 DVT (deep venous thrombosis) Diabetes Seizure disorder HIV (human immunodeficiency virus infection) Surgical History Status post cholecystectomy Status post laparoscopic appendectomy H/O fasciotomy S/P AAA (abdominal aortic aneurysm) repair S/P IVC filter Social History Social History Alcohol intake: never Patient Tobacco Use Status: Former Tobacco user Advance Directives: Yes Advance Directives Information Provided: No Advance Directives on File: No service: No Physical Exam ED Vital Signs: Vital Signs - 24 hr 09/25/24 13:54 09/25/24 19:23 Temperature 98.8 F 98.2 F Pulse Rate 95 92 Respiratory Rate 20 13 Blood Pressure 126/87 106/78 Pulse Oximetry 98 97 Oxygen Delivery Method Room Air Room Air BMI result Body Mass Index 26.2 Const Other: Alert well-appearing Orientation/consciousness: patient oriented x3 Resp Effort & Inspection: normal respiratory effort Cardio Other: Normal peripheral perfusion GI Other: Abdomen is soft, mild tenderness across the lower abdomen without guarding, nondistended, Skin Other: Warm dry no rash Neuro General: patient oriented x3, no focal motor deficits and CN's II-XI intact bilaterally Psych Other: Calm cooperative Course Course Course Narrative: RME, this is a rapid medical exam performed by Ede Pascal please refer to primary provider for complete H&P- 49-year-old male presents for evaluation of multiple complaints including abdominal pain, nausea, diarrhea and bloody stool that started this morning. Plan for labs, viral swabs. Reevaluation(s) Reevaluation #1: Paged Dr. Esquivel for consult....she recommends the following..... DVT, Proximal or distal? If distal ok to give IV vit K 10 mg if proximal wouldn?t give more than 5mg vit k. Type and screen and transfuse for Hb <7. If becomes unstable should be transferred for IR embolization since localized on imaging. Otherwise npo. No rectal temps or flexiseal. I will relate to the inpatient team. Time: 21:02 Medications Administered Discontinued Medications Generic Name Dose Route Start Last Admin Trade Name Freq PRN Reason Stop Dose Admin Ceftriaxone Sodium 2 gm 09/25/24 21:03 09/25/24 21:43 Ceftriaxone Sodium 2 Gm Vial IVPUSH 09/25/24 21:04 2 gm ONCE ONE Administration Sodium Chloride 500 mls @ 500 mls/hr 09/25/24 18:58 09/25/24 20:57 Ns IV 09/25/24 19:57 Infused .Q1H ONE Infusion Iohexol 85 ml 09/25/24 19:53 09/25/24 19:53 Iohexol 350 Mg/Ml 100 Ml Infus..Btl IV 09/25/24 19:54 85 ml ONCE ONE Administration Morphine Sulfate 4 mg 09/25/24 18:58 09/25/24 19:34 Morphine Sulfate 4 Mg/Ml Cartridge IVPUSH 09/25/24 18:59 4 mg ONCE ONE Administration Protocol Morphine Sulfate 8 mg 09/25/24 20:24 09/25/24 20:57 Morphine Sulfate 10 Mg/Ml Cartridge IVPUSH 09/25/24 20:25 8 mg ONCE ONE Administration Protocol Ondansetron HCl 4 mg 09/25/24 18:58 09/25/24 19:34 Ondansetron Hcl 4 Mg/2 Ml Vial IVPUSH 09/25/24 18:59 4 mg ONCE ONE Administration Medical Decision Making Medical Decision Making MDM Narrative: 49-year-old male with a HIV on heart therapy without a viral detectable load, presents with lower GI bleed since earlier today. Patient states he has developed discomfort across entire lower abdomen, he has been having multiple bloody bowel movements at home. Associated nausea but no vomiting. Denies fever. Patient states he has a DVT in his left lower extremity that was diagnosed last week at [facility]. The patient is currently on Coumadin. Last week is INR was 9.5. He was supposed to follow up with the Coumadin clinic tomorrow to have further medication adjustment. Problem: HIV History: Per patient I have considered the following differential diagnoses: Diverticulosis, diverticulitis, hemorrhoids, colitis, polyp, cancer Plan: Screening labs were obtained, the patient's H&H are stable, obtaining a CT scan. Giving fluid, Zofran and morphine for pain. We will hold on reversing the INR until we see with the scan shows. I have independently reviewed the following tests: Labs: No leukocytosis, not anemic, no electrolyte abnormality, 2nd H&H slightly less at 12.[address] abdomen pelvis GI bleed study: Impression: Somewhat limited arterial assessment as above Acute hemorrhage noted inferior rectal vault Acute proctitis pattern This document has been electronically signed by: Guy Swartz MD on 09/25/2024 20:38:07 Lab Data 09/25/24 21:12 09/25/24 14:25 Labs: Lab Results 09/25/24 09/25/24 09/25/24 Range/Units 14:25 21:12 21:20 WBC 7.0 (4.8-10.8) X10*3/uL RBC 4.73 D (4.60-5.80) X10*6/uL Hgb 13.7 L D 12.5 L (14.0-18.0) g/dl Hct 42.8 D 38.5 L (42.0-52.0) % MCV 90.5 (80.0-98.0) fL MCH 29.0 (27.0-33.0) pg MCHC 32.0 (31.0-36.0) g/dl RDW 15.1 (11.0-16.0) % Plt Count 184 (160-400) X10*3/uL MPV 9.4 (9.4-12.4) fL Immature Gran % (Auto) 0.3 (0.0-0.4) % Neut % (Auto) 62.9 (45-73) % Lymph % (Auto) 28.5 (20-40) % Jefferson % (Auto) 7.6 (2-11) % Eos % (Auto) 0.3 (0-4) % Baso % (Auto) 0.4 (0-2) % Lymph # (Auto) 2.0 (1.2-4.9) X10*3/uL Jefferson # (Auto) 0.5 (0.1-1.2) X10*3/uL Eos # (Auto) 0.0 (0.0-0.4) X10*3/uL Baso # (Auto) 0.0 (0.0-0.2) X10*3/uL Abs Immat Gran (auto) 0.02 (0.00-0.03) X10*3/uL Absolute Neuts (auto) 4.4 (2.0-8.3) x10*3/uL Absolute Nucleated RBC 0.000 (0.0-0.012) X10*3/uL Nucleated RBC % (auto) 0.0 (0.0-0.2) /100WBC PT 70.3 H D (10.9-12.4) SEC INR 6.0 H* D (0.9-1.1) Sodium 138 (135-145) mmol/L Potassium 4.3 (3.3-5.1) mmol/L Chloride 111 H (96-108) mmol/L Carbon Dioxide 23 (22-29) mmol/L Anion Gap 8 L (12-20) BUN 9 (9-16) mg/dL Creatinine 1.23 (0.5-1.4) mg/dL Estim Creat Clear Calc 71.0 Estimated GFR > 60 Random Glucose 189 H (60-115) mg/dL Lactic Acid 1.3 (0.5-2.0) mmol/L Calcium 8.8 (8.4-10.2) mg/dL Total Bilirubin 0.3 (0.0-1.0) mg/dL AST 35 (5-37) U/L ALT 29 (0-40) U/L Alkaline Phosphatase 128 H (39-117) U/L Troponin I High Sens < 2.7 (<3.5-35.0) ng/L Total Protein 8.9 H (6.5-8.0) g/dL Albumin 4.0 (3.5-5.0) g/dL Lipase 15 (8-78) U/L Influenza Type A (PCR) NEGATIVE (Negative) Influenza Type B (PCR) NEGATIVE (Negative) RSV RNA Qual (PCR) NEGATIVE (Negative) SARS-CoV-2 RNA (RT-PCR) NEGATIVE (Negative) Discharge Plan Discharge Clinical Impression: Hemorrhagic proctitis Patient Disposition: Admitted As Inpatient Prescriptions: No Action morphine 15 mg tablet 15 mg PO Q6H PRN (Reason: pain) Qty: 10 0RF Rx Instructions: The patient may ask for partial fill; Partial Fill upon patient request. atorvastatin 80 mg tablet 80 mg PO DAILY famotidine 20 mg tablet 40 mg PO DAILY fondaparinux 7.5 mg/0.6 mL syringe 7.5 mg subcut DAILY lacosamide [Vimpat] 100 mg tablet 100 mg PO BID Ozempic 0.25 mg or 0.5 mg (2 mg/3 mL) pen injector 0.5 mg subcut QWEEK levothyroxine 25 mcg tablet 25 mcg PO DAILY pantoprazole 40 mg tablet,delayed release (DR/EC) 40 mg PO DAILY trazodone 150 mg tablet 150 mg PO BEDTIME tenofovir disoproxil fumarate 300 mg tablet 300 mg PO DAILY cholecalciferol (vitamin D3) 50 mcg (2,000 unit) capsule 50 mcg PO DAILY Jardiance 25 mg tablet 25 mg PO DAILY Prezcobix 800-150 mg-mg tablet 1 tab PO DAILY Isentress HD 600 mg tablet 600 mg PO BID azelastine 0.05 % drops 1 drp ophthalmic-Left BID albuterol sulfate [Ventolin HFA] 90 mcg/actuation HFA aerosol inhaler 2 inh inhalation Q4H PRN (Reason: wheezing/sob) Print Language: Anguill[place]
[2024-09-25 14:32] LABS: MANUAL DIFF FLAG NO
[2024-09-25 14:35] LABS: Basophils Percent Auto 0.4 % (0-2); Eosinophils Percent Auto 0.3 % (0-4); Hematocrit 42.8 % (42.0-52.0); Hemoglobin 13.7 g/dl (14.0-18.0); Imm Gran Abs Auto 0.02 X10*3/uL (0.00-0.03); Imm Gran Pct Auto 0.3 % (0.0-0.4); Lymphocytes Percent Auto 28.5 % (20-40); Mean Corpuscular Volume 90.5 fL (80.0-98.0); Mean Platelet Volume 9.4 fL (9.4-12.4); Monocytes Absolute Auto 0.5 X10*3/uL (0.1-1.2); Monocytes Percent Auto 7.6 % (2-11); Neutrophils Absolute Auto 4.4 x10*3/uL (2.0-8.3); Neutrophils Percent Auto 62.9 % (45-73); Platelet Count 184 X10*3/uL (160-400); Red Blood Count 4.73 X10*6/uL (4.60-5.80); Red Cell Distribution Width 15.1 % (11.0-16.0)
[2024-09-25 14:46] LABS: Prothrombin Time 70.3 SEC (10.9-12.4)
[2024-09-25 14:50] LABS: Alanine Aminotransferase 29 U/L (0-40); Alkaline Phosphatase 128 U/L (39-117); Anion Gap 8 (12-20); Bilirubin Total 0.3 mg/dL (0.0-1.0); Blood Urea Nitrogen 9 mg/dL (9-16); Calcium 8.8 mg/dL (8.4-10.2); Carbon Dioxide 23 mmol/L (22-29); Chloride 111 mmol/L (96-108); Estimated Glomerular Filt Rate > 60; Glucose Random 189 mg/dL (60-115); Lipase 15 U/L (8-78); Potassium 4.3 mmol/L (3.3-5.1); Sodium 138 mmol/L (135-145); Total Protein 8.9 g/dL (6.5-8.0)
[2024-09-25 15:05] LABS: Troponin-I High Sensitivity < 2.7 ng/L (<3.5-35.0)
[2024-09-25 15:06] LABS: Aspartate Amino Transferase 35 U/L (5-37)
[2024-09-25 15:17] LABS: Influenza A PCR NEGATIVE (Negative); Influenza B PCR NEGATIVE (Negative); Resp Syncy Virus RNA Qual PCR NEGATIVE (Negative); SARS COV2 PCR INHOUSE NEGATIVE (Negative)
--- NOTE | 2024-09-25 17:02 | PC.NURSE ---
Addendum entered by Nicolas Loomis 09/25/24 17:06: pt states 1 episode of rectal bleeding with some blood in the toilet today Original Note: iv placed, nad, c/o 06/05 abd pain, awaiting md cota, skin wpd
[2024-09-25 19:23] VITALS: BP 106/78; PULSE 92; RESP 13; TEMP 36.8; O2SAT 97
[2024-09-25] MEDS: Morphine Sulfate 4 MG/ML CARTRIDGE IVPUSH (19:34)
[2024-09-25] MEDS: ondansetron HCL 4 MG/2 ML VIAL IVPUSH (19:34)
[2024-09-25] MEDS: 0.9 % Sodium Chloride 500 ML IV (19:34)
--- OUTSIDE RECORDS SUMMARY | 2024-09-25 19:41 | XMS_ITS | Clinical Summary ---
Author Organization [facility]ly [facility] Address [address] [place] [address] Care Team Providers Care [employer] Operations Officer Name Role Phone Thomas Kam Primary Care Provider Allergies Active Allergy Reactions Criticality Noted Date Comments Influenza Vaccines Unknown/Patient and Family Unable to Define Medium 02/11/2022 Lamotrigine Unknown/Patient and Family Unable to Define Medium 02/11/2022 Oxycodone Unknown/Patient and Family Unable to Define Medium 02/11/2022 Oxycodone-Acetaminophen Unknown/Patient and Family Unable to Define Medium 02/11/2022 Seafood Unknown/Patient and Family Unable to Define Medium 02/11/2022 Tramadol Unknown/Patient and Family Unable to Define Medium 02/11/2022 Acetaminophen Unknown/Patient and Family Unable to Define Medium 02/11/2022 Medications Medication Sig Dispensed Refills Start Date End Date Status methocarbamol (ROBAXIN) 750 MG tablet Take 1 tablet (750 mg total) by mouth 4 times daily (every 6 hours) as needed for muscle spasms. 20 tablet 02/11/2022 Active Social History Tobacco Use Types Packs/Day Years Used Date Smoking Tobacco: Never Assessed Tobacco Cessation:Counseling Given: Not Answered Sex and Gender Information Value Date Recorded Sex Assigned at Male 03/03/2023 4:03 PM EDT Gender Identity Male 03/03/2023 4:03 PM EDT Sexual Orientation Homosexual (lesbian or carter) 0 03/03/2023 4:03 PM EDT Last Filed Vital Signs Vital Sign Reading Time Taken Comments Blood Pressure 112/68 03/09/2024 4:09 PM EDT Pulse 69 03/09/2024 4:09 PM EDT Temperature 36.1 ??C (96.9 ??F) 03/09/2024 11:27 AM E DT Respiratory Rate 16 03/09/2024 11:27 AM EDT Oxygen Saturation 96% 03/09/2024 11:27 AM EDT Inhaled Oxygen Concentration - - Weight - - Height - - Body Mass Index - - Plan of Treatment Health Maintenance Due Date Last Done Comments Hepatitis C Virus Screening 1973 Pneumococcal Vaccine: Pediat marcin (0-5 Years) and At-Risk Patients (6 to 49 Years) (1 of 2 - PCV) 1979 DTaP/Tdap/Td Vaccines (1 - Tdap) 1992 Hepatitis B Vaccines (1 of 3 - 19+ 3-dose series) 1992 Pneumococcal Vaccines 50+ (1 of 2 - PCV) 1992 Zoster (Shingles) Vaccine (1 of 2) 1992 Colonoscopy 2018 Influenza Vaccine 03/27/2024 07/29/2013, 05/06/2010 COVID-19 Vaccine (4 - 2023-2 5 season) 2024 04/03/2022, 09/02/2021, 08/08/2021 HIV Screening Completed 03/04/2024, 12/27, 10/23/2023, Additional history exists Care Teams [employer] Source Operations Officer Relationship Specialty Start Date End Date Thomas Kam PA PCP - General Emergency Medicine 03/03/23
--- OUTSIDE RECORDS SUMMARY | 2024-09-25 19:41 | XMS_ITS ---
Author Name [facility] Organization Unknown Results Test Name/Text Value Interpretation Date Range Source Lipase SerPl-cCnc 19U/L Normal [id number] 13 - 60 [facility] Magnesium SerPl-mCnc 2.2mg/dL Normal [id number] 1.6 - 2.7 [facility] Delta Normal [id number] - 3 [facility] Troponin T SerPl-mCnc 8ng/L Normal [id number] - 23 [facility] Calcium SerPl-mCnc 9.2mg/dL Normal [id number] 8.7 - 10 .5 [facility] BUN SerPl-mCnc 13mg/dL Normal [id number] 8 - 21 [facility] Creat SerPl-mCnc 1.2mg/dL Normal [id number] 0.5 - 1.3 [facility] GFR/BSA.pred SerPlBld AXE-TNM-TbESmk 74 Normal [id number] 59 - [facility] Chloride SerPl-sCnc 103mmol/L Normal [id number] 98 - 10 7 [facility] BUN/Creat SerPl 11Ratio Normal [id number] 10 - 25 [facility] CO2 SerPl-sCnc 20mmol/L Below low normal [id number] 22 - 33 [facility] Anion Gap Bld-sCnc 14 Normal [id number] 7 - 17 [facility] Potassium SerPl-sCnc 4.2mmol/L Normal [id number] 3.4 - 5.3 [facility] Glucose SerPl-mCnc 194mg/dL Above high normal [id number] 65 - 99 [facility] Sodium SerPl-sCnc 137mmol/L Normal [id number] 136 - 145 [facility] AST SerPl-cCnc 64U/L Above high normal [id number] 10 - 55 [facility] ALP SerPl-cCnc 141U/L Above high normal [id number] 45 - 128 [facility] ALT SerPl-cCnc 66U/L Above high normal [id number] 10 - 55 [facility] Globulin Ser Calc-mCnc 4.5g/dL Above high normal [id number] 1.5 - 3.9 [facility] Bilirub Direct SerPl-mCnc 0.2mg/dL Normal [id number] 0 - 0.2 [facility] Albumin/Glob SerPl 0.9Ratio Below low normal [id number] 1 - 3 [facility] Albumin SerPl-mCnc 4.1g/dL Normal [id number] 3.5 - 5 [facility] Prot SerPl-mCnc 8.6g/dL Above high normal [id number] 6.3 - 8.3 [facility] Bilirub SerPl-mCnc 0.5mg/dL Normal [id number] 0.2 - 1 [facility] Neutrophils num Bld Auto 1.64Thou/uL Below low normal [id number] 2 - 7.5 [facility] Monocytes num Bld Auto 0.32Thou/uL Normal [id number] 0.2 - 1.5 [facility] Eosinophil num Bld Auto 0.05Thou/uL Normal [id number] 0 - 0.7 [facility] WBC num Bld Auto 4.2Thou/uL Normal [id number] 4 - 11 [facility] MCHC RBC Auto-mCnc 31.8g/dL Normal [id number] 30 - 36 [facility] Monocytes/leuk NFr Bld Auto 7.7% Normal [id number] [facility] Hct VFr Bld Auto 41.2% Normal [id number] 39 - 54 [facility] RBC num Bld Auto 4.55Mil/uL Normal [id number] 4.5 - 6.2 [facility] RDW RBC Auto-Rto 15.2% Above high normal [id number] 11 .5 - 14.5 [facility] PMV Bld Auto 10.1fL Normal [id number] 7.5 - 12.[address] Eosinophil/leuk NFr Bld Auto 1.2% Normal [id number] [facility] MCH RBC Qn Auto 28.8pg Normal [id number] 27 - 31 [facility] Basophils/leuk NFr Bld Auto 1% Normal [id number] [facility] Basophils num Bld Auto 0.04Thou/uL Normal [id number] 0 - 0.2 [facility] Platelet num Bld Auto 175Thou/uL Normal [id number] 150 - 450 [facility] Neutrophils/leuk NFr Bld Auto 39.5% Normal [id number] [facility] MCV RBC Auto 91fL Normal [id number] 80 - 100 [facility] T Lymphocytes/leuk NFr Bld Auto 50.4% Normal [id number] [facility] Lymphocytes num Bld Auto 2.09Thou/uL Normal [id number] 1.5 - 4.5 [facility] Imm Granulocytes/leuk NFr Bld Auto 0.2% Normal [id number] [facility] Hgb Bld-mCnc 13.1g/dL Normal 13 - 17.7 [facility] T Imm Granulocytes num Bld Auto 0.01Thou/uL Normal [id number] 0 - 0.1 [facility] Troponin T SerPl HS-mCnc 7ng/L Normal - [facility] BKR TROPONIN T HS 1 HOUR DELTA FROM 0 HOUR -6ng/L Normal [id number] [facility] ABO GROUPING A Normal [id number] [facility] ANTIBODY SCREEN NEG Normal [id number] [facility] RH TYPE POS Normal [id number] [facility] Troponin T SerPl HS-mCnc 13ng/L Above high normal [id number] - [facility] Lipase SerPl-cCnc 11U/L Normal [id number] 11 - 55 [facility] Bilirub Direct SerPl-mCnc 0.2mg/dL Normal [id number] - [facility] AST/ALT SerPl-cRto 1.1 Normal [id number] - [facility] Glucose SerPl-mCnc 181mg/dL Above high normal [id number] 70 - 100 [facility] AST SerPl w P-5'-P-cCnc 51U/L Above high normal [id number] 10 - 35 [facility] Calcium SerPl-mCnc 9.2mg/dL Normal [id number] 8.8 - 10 .2 [facility] ALT SerPl w/o P-5'-P-cCnc 45U/L Normal [id number] 9 - 59 [facility] Sodium SerPl-sCnc 136mmol/L Normal [id number] 136 - 144 [facility] BUN SerPl-mCnc 12mg/dL Normal [id number] 6 - 20 [facility] ALP SerPl-cCnc 155U/L Above high normal [id number] 9 - 122 [facility] Globulin Plas-mCnc 4.2g/dL Above high normal [id number] 2.3 - 3.5 [facility] HCO3 SerPl-sCnc 24mmol/L Normal [id number] 20 - 30 [facility] eGFRcr SerPlBld CKD-EPI 2020 60mL/min/1.73 m2 Normal [id number] - [facility] Creat SerPl-mCnc 1.17mg/dL Normal [id number] 0.4 - 1.3 [facility] Anion Gap3 SerPl-sCnc 11 Normal [id number] 7 - 1 7 [facility] BUN/Creat SerPl 10.3 Normal [id number] 8 - 23 [facility] Albumin SerPl BCG-mCnc 4.5g/dL Normal [id number] 3.6 - 4.9 [facility] Bilirub SerPl-mCnc 0.5mg/dL Normal [id number] - [facility] Chloride SerPl-sCnc 101mmol/L Normal [id number] 98 - 10 7 [facility] Albumin/Glob SerPl 1.1 Normal [id number] 1 - 2.2 [facility] Potassium SerPl-sCnc 3.9mmol/L Normal [id number] 3.3 - 5.3 [facility] Prot SerPl-mCnc 8.7g/dL Normal [id number] 6.6 - 8.7 [facility] MCH RBC Qn Auto 29.1pg Normal [id number] 27 - 33 [facility] RBC # Bld Auto 4.67M/uL Normal [id number] 4 - 6 [facility] Lymphocytes # Bld Auto 1.18h2216/uL Normal [id number] 0.6 - 3.7 [facility] Neutrophils/leuk NFr Bld Auto 38.2% Below low normal [id number] 39 - 72 [facility] Lymphocytes/leuk NFr Bld Auto 52.1% Above high normal [id number] 17 - 50 [facility] PMV Bld Auto 10fL Normal [id number] 8 - 12 [facility] BKR WAM BASOPHIL ABSOLUTE COUNT. 0.39n3832/uL Normal [id number] 0 - 1 [facility] Imm Granulocytes # Bld Auto 0.15l4818/uL Normal [id number] 0 - 0.3 [facility] Monocytes/leuk NFr Bld Auto 8% Normal [id number] 4 - 12 [facility] Basophils/leuk NFr Bld Auto 0.6% Normal [id number] 0 - 1.4 [facility] nRBC/100 WBC Bld Auto-Rto 0% Normal [id number] 0 - 1 [facility] MCHC RBC Auto-mCnc 32.2g/dL Normal [id number] 31 - 36 [facility] Monocytes # Bld Auto 0.58p7649/uL Normal [id number] 0 - 1 [facility] Hct VFr Bld Auto 42.2% Normal [id number] 38.5 - 50 [facility] Eosinophil/leuk NFr Bld Auto 0.8% Normal [id number] 0 - 5 [facility] Neutrophils # Bld Auto 1.03a0820/uL Below low normal [id number] 2 - 7.6 [facility] Platelet # Bld Auto 617b2671/uL Normal [id number] 150 - 420 [facility] RDW RBC Auto-Rto 14.8% Normal [id number] 11 - 15 [facility] Imm Granulocytes/leuk NFr Bld Auto 0.3% Normal [id number] 0 - 1 [facility] Eosinophil # Bld Auto 0.39r4608/uL Normal [id number] 0 - 1 [facility] Hgb Bld-mCnc 13.6g/dL Normal [id number] 13.2 - 17.1 [facility] nRBC # Bld Auto 4w0869/uL Normal [id number] 0 - 1 [facility] MCV RBC Auto 90.4fL Normal [id number] 80 - 100 [facility] WBC # Bld Auto 3.7j0584/uL Below low normal [id number] 4 - 11 [facility]
--- OUTSIDE RECORDS SUMMARY | 2024-09-25 19:41 | XMS_ITS | Clinical Summary ---
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, last episode 2000 Lamotrigine Itching Low 04/29/2023 Oxycodone Itching Low 04/29/2023 Oxycodone-Acetaminophen Itching Low 04/29/2023 Tramadol Dizziness 04/29/2023 Acetaminophen Hives High 04/29/2023 Social History Tobacco Use Types Packs/Day Years Used Date Smoking Tobacco: Never Assessed Sex and Gender Information Value Date Recorded Sex Assigned at Not on file Legal Sex Male 11:35 AM EDT Gender Identity Male 04/29/2023 1:02 PM EDT Sexual Orientation Not on file Last Filed Vital Signs Vital Sign Reading Time Taken Comments Blood Pressure 114/62 04/29/2023 6:00 PM EDT Pulse 87 04/29/2023 6:00 PM EDT Temperature 36.7 ??C (98.1 ??F) 04/29/2023 11:46 AM E DT Respiratory Rate 16 04/29/2023 11:46 AM EDT Oxygen Saturation 98% 04/29/2023 6:00 PM EDT Inhaled Oxygen Concentration - - Weight - - Height - - Body Mass Index - - Plan of Treatment Health Maintenance Due Date Last Done Comments HIV screening 1986 Hepatitis C screening 1991 Lipid disorder screening 2013 Colon cancer screening, Colonoscopy 2018 Shingles vaccine (Shingrix) (1 of 2 - Shingrix (RZV) 2 Dose Standard Series) 2023 06/29/2021, 05/18/2021 Tetanus adult (Td q 10,TDAP once) 09/30/2023 09/30/2013 Influenza vaccine 03/27/2024 07/29/2013, 05/06/2010 Covid-19 vaccine series ( season) 2024 04/03/2022, 09/02/2021, 08/08/2021 Diabetes screening 04/29/2026 04/29/2023 RSV Discussion (1 - 1-dose 7 5+ series) 2048 Meningococcal Vaccine Aged Out 11/18/2018 , 06/19/2017 No longer eligible based on patient's age to complete this topic Pneumococcal Vaccine Aged Out No long er eligible based on patient's age to complete this topic Procedures Procedure Name Priority Date/Time Associated Diagnosis Comments COMPREHENSIVE METABOLIC PANEL STAT 04/29/2023 12:45 PM EDT from Last 3 Months or Most Recently Relevant to Health Maintenance Results * (ABNORMAL) Comprehensive metabolic panel (04/29/2023 12:45 PM EDT) Sodium 136 136 - 144 mmol/L 04/29/2023 1:19 PM EDT [facility] Potassium 3.9 3.3 - 5.3 mmol/L 04/29/2023 1:19 PM EDT [facility] Chloride 101 98 - 107 mmol/L 04/29/2023 1:19 PM EDT [facility] CO2 24 20 - 30 mmol/L 04/29/2023 1:19 PM EDT [facility] Anion Gap 11 7 - 17 04/29/2023 1:19 PM EDT [facility] Glucose 181(H) 70 - 100 mg/dL 04/29/2023 1:19 PM EDT [facility] BUN 12 6 - 20 mg/dL 04/29/2023 1:19 PM [facility] Creatinine 1.17 0.40 - 1.30 mg/dL 04/29/2023 1:19 PM [facility] Calcium 9.2 8.8 - 10.2 mg/dL 04/29/2023 1:19 PM [facility] BUN/Creatinine Ratio 10.3 8.0 - 23.0 04/29/2023 1:19 PM [facility] Total Protein 8.7 6.6 - 8.7 g/dL 023 1:19 PM [facility] Albumin 4.5 3.6 - 4.9 g/dL 04/29/2023 1:19 PM [facility] Total Bilirubin 0.5 <=1.2 mg/dL 04/29/20 1:19 PM [facility] Alkaline Phosphatase 155(H) 9 - 122 U/L 04/29/2023 1:19 PM [facility] Alanine Aminotransferase (ALT) 45 9 - 59 U/L 04/29/2023 1:19 PM [facility] Comment:Calcium dobesilate c an cause artificially low ALT results at therapeutic concentrations Aspartate Aminotransferase (AST) 51(H) 10 - 35 U/L 04/29/2023 1:19 PM [facility] Globulin 4.2(H) 2.3 - 3.5 g/dL 04/29/2023 1:19 PM [facility] A/G Ratio 1.1 1.0 - 2.2 04/29/2023 1:19 PM [facility] AST/ALT Ratio 1.1 Reference Range Not Established 04/29/2023 1:19 PM [facility] eGFR (Creatinine) >60 >=60 mL/min/1.73m2 04/29/2023 1:19 PM [facility] Comment: Values < 60 mL/min/1.73 m2 may indicate CKD if present for more than three months AND creatinine is at steady state. The eGFR provides a rough estimate of kidney function. On 04/11/22 all [facility] Clinical Labs and Epic began using a amc-ecme-btbar formula for estimating GFR called CKD-EPI Creatinine 2020. This equation reports eGFR based on creatinine, patient age, clinical sex, and is standardized to a body surface area of 1.73 m2. For the same creatinine, this new race-free eGFR will be lower than prior reported Black eGFR results and higher than prior Non-Black eGFR results. For further guidance, please refer to the CKD: Adult Cable Former Signature pathway. Blood Venipuncture / Unknown 04/29/2023 12:45 PM EDT 04/29/2023 12:52 PM EDT us Kurt Akins MD LAB BLOOD ORDERABLES Final Resu lt [facility] [address] [place] [address] from Last 3 Months or Most Recently Relevant to Health Maintenance Insurance MEDICARE [id number] MEDICAID MEDICARE [id number] MEDICAID MEDICARE [id number] MEDICAID Care Teams Command Post Superintendent Relationship Specialty Start Date End Date Pcp, Does Not Have A PCP - General 04/29/23
--- OUTSIDE RECORDS SUMMARY | 2024-09-25 19:41 | XMS_ITS | Clinical Summary ---
Author Organization [facility] it Address [address] [place] [address] Care Team Providers Care Allergist/Immunologist Name Role Phone Thomas Kam Primary Care Provider [phone] Social History Tobacco Use Types Packs/Day Years Used Date Smoking Tobacco: Never Assessed Sex and Gender Information Value Date Recorded Sex Assigned at Not on file Gender Identity Not on file Sexual Orientation Not on file Obstetrics History Last Filed Vital Signs Vital Sign Reading Time Taken Comments Blood Pressure 128/76 06/21/2023 1:07 PM EDT Pulse 74 06/21/2023 1:07 PM EDT Temperature - - Respiratory Rate - - Oxygen Saturation - - Inhaled Oxygen Concentration - - Weight 86.2 kg (190 lb) 06/21/2023 1:07 PM EDT Height 175.3 cm (5' 9 ) 06/21/2023 1:07 PM EDT Body Mass Index 28.06 06/21/2023 1:07 PM EDT Plan of Treatment Health Maintenance Due Date Last Done Comments DTaP,Tdap,and Td Vaccines (1 - Tdap) 1992 Hepatitis B Vaccines (1 of 3 - 19+ 3-dose series) 1992 Cholesterol Screening (Lipid Panel) 08/05/2022 Colorectal Cancer Screening: Colonoscopy 08/05/2022 Depression Screening 08/05/2022 HIV Screening 08/05/2022 Hepatitis C Screening 08/05/2022 Social Influencers of Health Screening 08/05/2022 Zoster Vaccines (1 of 2) 2023 COVID-19 Vaccine ( - 2023-2 5 season) 2024 Influenza Vaccine (#1) 2024 HIB Vaccines Aged Out No longer eligi ble based on patient's age to complete this topic HPV Vaccines Aged Out No longer eligi ble based on patient's age to complete this topic Hepatitis A Vaccines Aged Out No long er eligible based on patient's age to complete this topic IPV Vaccines Aged Out No longer eligi ble based on patient's age to complete this topic MMR Vaccines Aged Out No longer eligi ble based on patient's age to complete this topic Meningococcal ACWY Vaccine Aged Out N o longer eligible based on patient's age to complete this topic Pneumococcal Vaccine: Pediat rics (0 to 5 Years) and At-Risk Patients (6 to 64 Years) Aged Out No longer eligible b ased on patient's age to complete this topic RSV Immunization Patients Un sathish 20 months Aged Out No longer eligible b ased on patient's age to complete this topic Varicella Vaccines Aged Out No longer eligible based on patient's age to complete this topic Advance Directives Documents on File Type Date Recorded Patient Clinical Team Lead Expl anation Health Care Decision (hx) 10/12/2018 AD HIDALGO DIRECTIVE Health Care Decision (hx) 10/12/2018 AD HIDALGO DIRECTIVE Health Care Decision (hx) 10/12/2018 AD HIDALGO DIRECTIVE Health Care Decision (hx) 10/12/2018 AD HIDALGO DIRECTIVE Health Care Decision (hx) 10/12/2018 AD HIDALGO DIRECTIVE Health Care Decision (hx) 10/12/2018 AD HIDALGO DIRECTIVE Health Care Decision (hx) 10/12/2018 AD HIDALGO DIRECTIVE Health Care Decision (hx) 10/12/2018 AD HIDALGO DIRECTIVE Health Care Decision (hx) 10/12/2018 AD HIDALGO DIRECTIVE Health Care Decision (hx) 10/12/2018 AD HIDALGO DIRECTIVE Health Care Decision (hx) 10/12/2018 AD HIDALGO DIRECTIVE Health Care Decision (hx) 10/12/2018 AD HIDALGO DIRECTIVE Health Care Decision (hx) 10/12/2018 AD HIDALGO DIRECTIVE Health Care Decision (hx) 10/12/2018 AD HIDALGO DIRECTIVE Health Care Decision (hx) 10/12/2018 AD HIDALGO DIRECTIVE Health Care Decision (hx) 10/12/2018 AD HIDALGO DIRECTIVE Health Care Decision (hx) 10/12/2018 AD HIDALGO DIRECTIVE Health Care Decision (hx) 10/12/2018 AD HIDALGO DIRECTIVE Health Care Decision (hx) 10/12/2018 AD HIDALGO DIRECTIVE Health Care Decision (hx) 10/12/2018 AD HIDALGO DIRECTIVE Health Care Decision (hx) 10/12/2018 AD HIDALGO DIRECTIVE Health Care Decision (hx) 10/12/2018 AD HIDALGO DIRECTIVE Health Care Decision (hx) 10/12/2018 AD HIDALGO DIRECTIVE Health Care Decision (hx) 10/12/2018 AD HIDALGO DIRECTIVE Health Care Decision (hx) 10/12/2018 AD HIDALGO DIRECTIVE Health Care Decision (hx) 10/12/2018 AD HIDALGO DIRECTIVE Health Care Decision (hx) 10/12/2018 AD HIDALGO DIRECTIVE Health Care Decision (hx) 10/12/2018 AD HIDALGO DIRECTIVE Health Care Decision (hx) 10/12/2018 AD HIDALGO DIRECTIVE Health Care Decision (hx) 10/12/2018 AD HIDALGO DIRECTIVE Health Care Decision (hx) 10/12/2018 AD HIDALGO DIRECTIVE Health Care Decision (hx) 10/12/2018 AD HIDALGO DIRECTIVE Health Care Decision (hx) 10/12/2018 AD HIDALGO DIRECTIVE Care Teams Allergist/Immunologist Relationship Specialty Start Date End Date Thomas Kam PA [address] [place] [address] PCP - General Internal Medicine 03/24/20
--- OUTSIDE RECORDS SUMMARY | 2024-09-25 19:41 | XMS_ITS | Encounter Summary ---
Author Organization [facility] Address [address] [place] [address] Care Team Providers Care Civilian Jail Officer Name Role Phone Thomas Kam Primary Care Provider [phone] Reason for Visit * Reason Comments Diabetes Mellitus Encounter Details Date Type Department Care Team (Latest Contact Info) Description 09/02/2024 2:40 PM EST Office Visit [facility] [address] [place] [address] Arnaldo Osman, PharmD [address] [place] [address] Type 2 diabetes mellitus with hyperglycemia, without long-term current use of insulin ([facility]) (Primary Dx); Venous insufficiency of both lower extremities; History of DVT (deep vein thrombosis); Acute deep vein thrombosis (DVT) of right lower extremity, unspecified vein (HCC-CMS) Social History Tobacco Use Types Packs/Day Years Used Date Smoking Tobacco: Former Cigarettes 0.5 30 1 10/09/1985 - 08/08/2016 Smokeless Tobacco: Former Quit: 08/08/2016 Tobacco Cessation:Counseling Given: Not Answered Comments:appt with Lis Valera smoking cess. Alcohol Use Standard Drinks/Week Comments No 0 (1 standard drink = 0.6 oz pur e alcohol) Social Connections Answer Date Recorded Connectedness 1 10/23/2023 Financial Resource Strain Answer Date R ecorded Financial Resource Strain 1 2023 Stress Answer Date Recorded Stress 1 10/23/2023 Physical Activity Answer Date Recorded Physical Activity 0 10/20/2019 Food Insecurity Answer Date Recorded Food 1 10/23/2023 Transportation Needs Answer Date Record ed Transportation 1 10/23/2023 Housing Stability Answer Date Recorded Housing 1 10/23/2023 Safety and Environment Answer Date Be rded Safety 1 10/23/2023 Utilities Answer Date Recorded Utilities 1 10/23/2023 Employment Answer Date Recorded Stress 0 10/20/2019 Sex and Gender Information Value Date Recorded Sex Assigned at Male 06/05/2017 11:07 AM PDT Legal Sex Male 11:36 AM PDT Gender Identity Male 06/05/2017 11:07 AM PDT Sexual Orientation Chaidez 08/14/2024 10 :51 AM PST COVID-19 Exposure Response Date Recorded In the last 10 days, have yo u been in contact with someone who was confirmed or suspected to have Coronavirus/COVID-19? No / Unsure 09/02/2024 2:18 PM EST documented as of this encounter Last Filed Vital Signs Vital Sign Reading Time Taken Comments Blood Pressure - - Pulse 87 09/02/2024 2:35 PM EST Temperature - - Respiratory Rate 16 09/02/2024 2:35 PM EST Oxygen Saturation 97% 09/02/2024 2:35 PM EST Inhaled Oxygen Concentration - - Weight 79.8 kg (176 lb) 09/02/2024 2:35 PM EST Height 175.3 cm (5' 9 ) 09/02/2024 2:35 PM EST Body Mass Index 25.99 09/02/2024 2:35 PM EST documented in this encounter Progress Notes * Arnaldo Osman PharmD - 09/02/2024 2:43 PM EST Jerome Naylor is a 49 year old, [place]-speaking male who presents today for a follow-up visit in [facility] with Arnaldo Osman PharmD. Referred by Thomas Kam PA-C. No boat master needed for today's visit as provider speaks patient's familiar language. Accompanied by: partner Subjective: Patient reports: Completed Lovenox injections ~2 weeks ago. Reports currently administering fondaparinux 7.5 mg daily. Recently picked up a month's supply yesterday. Taking warfarin 10 mg on Sunday, Sunday and Sunday. Reports taking 10 mg last Sunday and 5 mg all other days. Patient was not aware of current dosing. Scheduled hematology appt on 09/24/24, patient is aware. Completed Ozempic 1 mg last Sunday, requests refills. Continues to monitor BG daily. Recent BG values: 120-130s mg/dL. Currently has Coaguchek machine at home, although requests refills on test strips. Patient is connected with [facility]. New concerns: None ROS (last 1-2 weeks): Chest pain/chest tightness No, dizziness/lightheadedness No, shortness of breath No, blurry vision No, headaches No, palpitations No, peripheral edema No, leg swelling/warmth/redness/pain? Yes see patient reports Weak, numb or visual problems? No Unusual bleeding or bruising? No Blood in urine? No Blood in stool? No Cardiology/Vascular Specialist? Hematology (Location: [facility] Hematology, initial appt 09/24/24): see problem list. Tobacco Use: Former Smoker: Quit 7-8 years ago Tobacco Intervention:provided tobacco cessation counseling Alcohol Use: Former drinker, quit 20 years ago Additional OTC medications or supplements: None Specialists managing DM/HTN: None Diabetes Current Diabetes RX: Ozempic 1 mg once weekly every Sunday Jardiance 25 mg daily Anticoagulation Current medication schedule (AM/PM): Sat/Sun = warfarin 5 mg daily All other days = warfarin 10 daily History: multiple DVT, see problem list and anticoagulation episode Eligible for DOAC/previous hx of DOAC? No Objective: BGM Metrics: Not available, patient forgot glucometer/reader at home SMBG (BGM: OneTouch Verio Flex) BG ranges: 120-130 mg/dL Allergies reviewed: Allergies Allergen Reactions Influenza Virus Vaccines Other (See Comments) Allergy to Guillain-Martinez Virus. Reports paralysis following flu shot. Acetaminophen Itching Other reaction(s): Unknown/Patient and Family Unable to Define Oxycodone Other reaction(s): Unknown/Patient and Family Unable to Define Oxycodone-Acetaminophen Other reaction(s): C/O: itching, Unknown/Patient and Family Unable to Define makes pt itchy makes pt itchy makes pt itchy makes pt itchy Carbamazepine Fish Containing Products Flu Vac 2011 (18-64yrs)(Pf) Lamotrigine Rash Shellfish Derived Tramadol Seizure per pt report Estimated Creatinine Clearance: 75.3 mL/min (by C-G formula based on SCr of 1.16 mg/dL). Last 3 BP Readings: Date: BP: 08/08/2024 108/78 08/04/2024 110/70 07/28/2024 116/80 Wt Readings from Last 3 Encounters: 09/02/24 176 lb (79.8 kg) 08/08/24 177 lb (80.3 kg) 08/04/24 177 lb (80.3 kg) Lab Results Component Value Date INR 1.9 (A) 09/02/2024 INR 2.1 08/18/2024 INR 3.8 (A) 08/13/2024 Lab Results Component Value Date PT 0 (A) 06/20/2022 Lab Results Component Value Date HGBA1C 7.9 (H) 03/04/2024 HGBA1C 8.3 (H) 01/09/2024 HGBA1C 6.2 (H) 06/15/2022 Lab Results Component Value Date GLUCOSE 137 (A) 09/02/2024 EAG 146 10/18/2020 No results found for: MICRALBCREAT , ALBCREAT , URALBCREAT Lab Results Component Value Date NA 134 (L) 06/23/2024 K 4.4 06/23/2024 BUN 15 06/23/2024 BUNCREAT SEE NOTE: 06/23/2024 CREATININE 1.16 06/23/2024 EGFR 77 06/23/2024 Lab Results Component Value Date WBC 4.5 06/23/2024 NEUTROPHILS 2,016 06/23/2024 LYMPHOCYTES 2,061 06/23/2024 LYMPHOCYTES 1,682 06/23/2024 RBC 4.95 06/23/2024 HGB 14.3 06/23/2024 HCT 44.4 06/23/2024 MCV 89.7 06/23/2024 RDW 15.0 06/23/2024 PLATELETS 214 06/23/2024 Lab Results Component Value Date TRIGLYC 397 (H) 08/30/2023 CHOL 134 08/30/2023 HDL 38 (L) 08/30/2023 LDL 54 08/30/2023 CHOLHDL 3.5 08/30/2023 NONHDL 96 08/30/2023 The 10-year ASCVD risk score (Katerin MENENDEZ, et al., 2019) is: 4.2% Assessment: Diabetes: Slightly uncontrolled A1c, Well-controlled SMBG ASCVD: Age 40-75 yo, DM, no ASCVD = moderate intensity statin recommended in addition to lifestyle therapy Patient's INR was 1.9. INR Goal: 2 - 3. INR is Sub-therapeutic today. According to the CHEST guidelines and RE-LY trial, INR is SUBtherapeutic at 1.5 - 1.9, therefore the patient's weekly dose should be increased by 5-10%. Plan: E11.65 Type 2 diabetes mellitus with hyperglycemia, without long-term current use of insulin ([facility]) (primary encounter diagnosis) Plan : GLUCOSE, BLOOD BY GLUCOSE MONITORING DEVICE (CLIA WAIVED)POCT OZEMPIC 1 MG/DOSE (4 MG/3 ML) SUBCUTANEOUS PEN INJECTOR - Inject 1 mg into the skin once a week Every Sunday PHARMACOTHERAPY for diabetes Continue to monitor BG with SenSageuch Verio Flex once daily Will continue current medications: Ozempic 1 mg once weekly every Sunday Jardiance 25 mg daily Counseled patient on the following diet and lifestyle modifications (weight loss, low-sodium (PARKER)diet, decrease carbohydrates such as rice, bread, pasta and corn meal, increase non-starchy vegetables, no potatoes or corn, increase protein, and increase physical activity with at least 150 minutesof moderate physical activity per week) I87.2 Venous insufficiency of both lower extremities/Z86.718 History of DVT (deep vein thrombosis)/I82.401 Acute deep vein thrombosis (DVT) of right lower extremity, unspecified vein ([facility]) Plan : INR COAGUCHEK XS (POCT) Recommended to continue current warfarin dosing and fondaparinux as directed: Sat/Sun = warfarin 5 mg daily All other days = warfarin 10 daily Fondaparinux 7.5 mg daily Will call [facility] and complete new INR provider form. Patient was previously non-adherent for 1 year. Do not forget to attend hematology appt on 09/24/24, patient is aware. Current schedule is as follows: Anticoagulation Summary As of 09/02/2024 TTR: 45.6% (3.7 wk) Full warfarin instructions: 5 mg every Sun, Sat; 10 mg all other days Next INR check: 10/01/2024 ASCVD: Per 2023 ADA guidelines for lipid management, continue high-intensity statin: atorvastatin 80 mg daily every evening Referral: None Follow-Up: 10/01/24 @2:40 PM Patient agrees with plan of care and verbalizes understanding. Questions were answered. Education: Diabetes: Medication Regimen: (indication, dosage, administration, storage, ADR, missing dose) BG testing and target/Alternate Site Testing Proper Injection Technique Focus on consuming carbohydrates from high-fiber sources like whole grains, legumes, and fruits in controlled portions to help manage blood sugar levels, and aim to fill half your plate with non-starchy vegetables like leafy greens, broccoli, or peppers for added nutrients and fiber. Avoid sugary beverages like soda and limit sweets to special occasions, choosing healthier alternatives such as water, unsweetened tea, or low-calorie drinks to minimize blood sugar spikes Incorporate at least 150 minutes of moderate physical activity per week, such as brisk walking or cycling, to improve insulin sensitivity, enhance glucose control, and support overall cardiovascular health. Sign / Symptoms of Hyperglycemia / Hypoglycemia Hypoglycemia Treatment (Rule 15) Coat Maker Complications Uncontrolled Diabetes Anticoagulation: Drug-Drug Interactions: For patients taking VKAs, it is suggested to closely monitor concomitant treatment with PPIs as may lead to increase PT/INR values in patients initiating or titrating PPIs dueto [id number] inhibition. Education provided on signs and sxs of blood clot or bleeding/bruising. Avoiding changes in diet or large consumption of dark, leafy green vegetables while taking warfarin: Kale, spinach, brussel sprouts, parsley, bry greens, mustard greens, endive, red cabbage, broccoli, lettuce, green peas. Avoiding heavy alcohol consumption as this may lead to increased levels of warfarin and increased risk of bleeding. Arnaldo Osman PharmD documented in this encounter Miscellaneous Notes * Patient Instructions - Arnaldo Osman PharmD - 09/02/2024 3:01 PM EST Ernie Osman PharmD, [facility] Clinical Pharmacist [address] para Espanol [address] extension [phone] If you are not able to keep your appointment please call [phone] hours before your appointment to cancel or reschedule. documented in this encounter Plan of Treatment Upcoming Encounters Date Type Department Care Team (Late st Contact Info) Description 10/01/2024 2:40 PM EST Office Visit [facility] [address] [place] [address] Arnaldo Osman PharmD [address] [place] [address] 11/19/2024 3:00 PM EDT Office Visit [facility] [address] [place] [address] Thomas Kam PA [address] [place] [address] Janey Messer [address] [place] [address] documented as of this encounter Procedures Procedure Name Priority Date/Time Associated Diagnosis Comments INR COAGUCHEK XS (POCT) Routine 09/02/2024 2:39 PM EST Venous insufficiency of both lower extremities History of DVT (deep vein thrombosis) Acute deep vein thrombosis (DVT) of right lower extremity, unspecified vein ([facility]) GLUCOSE, BLOOD BY GLUCOSE MONITORING DEVICE (CLIA WAIVED)POCT Routine 09/02/2024 2:38 PM EST Type 2 diabetes mellitus with hyperglycemia, without long-term current use of insulin ([facility]) documented in this encounter Results * (ABNORMAL) INR COAGUCHEK XS (POCT) (09/02/2024 2:39 PM EST) INR 1.9(A) 2.0 - 3.5 Ratio [facility] POCT Comment:22.3 sec Blood Blood / Unknown 09/02/2024 2 :39 PM EST us Arnaldo Osman PharmD LAB - BLOOD DRAW Final Re sult [facility] POCT * (ABNORMAL) GLUCOSE, BLOOD BY GLUCOSE MONITORING DEVICE (CLIA WAIVED)POCT (09/02/2024 2:38 PM EST) GLUCOSE 137(A) 70 - 100 mg/dL [facility] OFFICE POCT Capillary Blood Blood / Unknown 2:38 PM EST Arnaldo Osman PharmD LAB - BLOOD DRAW Final Re sult Performing Organization Address City/[facility]/ZIP Co de Phone Number [facility] POCT documented in this encounter Visit Diagnoses Diagnosis Type 2 diabetes mellitus with hyperglycemia, without long-term current use of insulin ([facility])- Primary Venous insufficiency of both lower extremities History of DVT (deep vein thrombosis) Personal history of venous thrombosis and embolism Acute deep vein thrombosis (DVT) of right lower extremity, unspecified vein ([facility]) documented in this encounter Additional Health Concerns Assessment Noted Time PHQ-9 Depression Total Score: 1 10/23/19 24 1:39 PM PST documented as of this encounter Care Teams Civilian [employer] Officer Relationship Specialty Start Date End Date Thomas Kam PA [address] [place] [address] PCP - General Internal Medicine 02/22/17 documented as of this encounter
--- OUTSIDE RECORDS SUMMARY | 2024-09-25 19:41 | XMS_ITS | Clinical Summary ---
Author Organization [facility] Address [address] [place] [address] Care Team Providers Care Side Hemmer Name Role Phone Thomas Kam Primary Care Provider [phone] Source Comments PLEASE NOTE, if this patient is a minor, it may be UNLAWFUL to discuss sensitive information that is contained in these records (such as FAMILY PLANNING, MENTAL HEALTH or SUBSTANCE ABUSE) with the minor patient's parent or other person without the patient's specific authorization.[facility] Allergies Active Allergy Reactions Criticality Noted Date Comments Acetaminophen Itching Medium 02/11/2022 Other reaction(s): Unknown/Patient and Family Unable to Define Carbamazepine 10/02/2018 Fish Containing Products 10/02/2018 Flu Vac 2012 (18-64yrs)(Pf) 10/02/2018 Influenza Virus Vaccines Other (See Comments) High 08/13/2018 Allergy to Guillain-Martinez Virus. Reports paralysis following flu shot. Lamotrigine Rash 07/22/2013 Oxycodone Medium 02/11/2022 Other reaction(s): Unknown/Patient and Family Unable to Define Oxycodone-Acetaminophen Medium 02/11/2022 Other reaction(s): C/O: itching, Unknown/Patient and Family Unable to Define makes pt itchy makes pt itchy makes pt itchy makes pt itchy Shellfish Derived 06/03/2022 Tramadol 12/09/2021 Seizure per pt report Medications traZODone (DESYREL) 150 mg tablet TAKE 1 TAB BY MOUTH NIGHTLY AT BEDTIME 60 Tablet 1 021 Active prothrombin time test strips (COAGUCHEK PT) strpIndications:V enous insufficiency of both lower extremities,Histo ry of DVT (deep vein thrombosis),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 2 Each 1 023 Active dicyclomine (BENTYL) 20 mg tabletIndications :Chronic RLQ pain TOME EMILY TABLETA CUATRO VECES AL CARLO CUANDO SEA NECESARIO FOR ABDOMINAL PAIN 360 Tablet 1 023 Active simethicone (MYLICON) 125 mg chewable tabletIndications :Bloating Place 1 Tablet into mouth, chew and swallow every 6 (six) hours as needed for flatulence 30 Tablet 2 023 Active lacosamide (VIMPAT) 100 mg tabletIndications :Seizure (HCC-CMS) Take 1 Tablet by mouth 2 (two) times daily 90 Tablet 2 024 Active morphine (MSIR) 15 mg tabletIndications :Pleuritic chest pain,Venous insufficiency of both lower extremities,Abdom inal aortic aneurysm (AAA) without rupture, unspecified part (HCC-CMS),Acute deep vein thrombosis (DVT) of right lower extremity, unspecified vein (HCC-CMS),PAD (peripheral artery disease) (HCC-CMS),Chronic low back pain, unspecified back pain laterality, unspecified whether sciatica present Take 1 Tablet by mouth every 6 (six) hours as needed for pain 28 Tablet 024 Active atorvastatin (LIPITOR) 80 mg tabletIndications :Hypercholesterem ia TOME EMILY TABLETA TODOS LOS [place] 90 Tablet 2 024 Active famotidine (PEPCID) 20 mg tabletIndications :Gastroesophageal reflux disease without esophagitis TOME DOS TABLETAS POR VIA ORAL TODOS [place] 180 Tablet 2 024 Active darunavir-cobicis tat (PREZCOBIX) 800-150 mg-mg tabIndications:HI V disease (HCC-CMS) Take 1 Tablet by mouth once daily 90 Tablet 3 024 Active tenofovir disoproxil fumarate (VIREAD) 300 mg tabletIndications :HIV disease ([facility]) TOME EMILY TABLETA TODOS [place] 90 Tablet 3 024 Active raltegravir (ISENTRESS HD) 600 mg tabIndications:HI V disease ([facility]) Take 1 Tablet by mouth 2 (two) times Daily 180 Tablet 3 024 Active blood-glucose meter monitoring kitIndications:Ty pe 2 diabetes mellitus without complication, without long-term current use of insulin ([facility]) Use to test blood sugar once daily. (OneTouch Verio or Ultra 2, whichever is approved) E11.9 1 Each 024 Active alcohol swabsIndications: Type 2 diabetes mellitus without complication, without long-term current use of insulin ([facility]) Use to test blood sugar once daily. 100 Each 3 024 Active empagliflozin (JARDIANCE) 25 mg tabIndications:Un controlled type 2 diabetes mellitus with hyperglycemia ([facility]),Type 2 diabetes mellitus with hyperglycemia, without long-term current use of insulin ([facility]) Take 1 Tablet by mouth daily. 90 Tablet 3 024 2024 Active fondaparinux (ARIXTRA) 7.5 mg/0.6 mL injectionIndicati ons:Acute deep vein thrombosis (DVT) of right lower extremity, unspecified vein ([facility]) INJECT 0.6 ML(7.5 MG) INTO THE SKIN ONCE DAILY FOR 112 DAYS 18 mL 3 024 Active levothyroxine 25 mcg tabletIndications :Hypothyroidism, unspecified type TOME 1 TABLETA POR VIA ORAL TODOS [place] 90 Tablet 1 024 Active pantoprazole (PROTONIX) 40 mg EC tablet TOME 1 TABLETA POR VIA ORAL TODOS [place] 90 Tablet 1 024 Active azelastine (OPTIVAR) 0.05 % ophthalmic solutionIndicatio ns:Allergic conjunctivitis of left eye Place 1 Drop into the left eye 2 (two) times daily 6 mL 1 024 Active cholecalciferol (VITAMIN D-3) 50 mcg (2,000 unit) capsuleIndication s:Type 2 diabetes mellitus without complication, without long-term current use of insulin ([facility]),Class 1 obesity without serious comorbidity in adult, unspecified BMI, unspecified obesity type TOME 1 CAPS[place]A POR VIA ORAL TODOS [place] 90 Capsule 1 024 Active morphine (MSIR) 15 mg tabletIndications :Venous insufficiency of both lower extremities,Abdom inal aortic aneurysm (AAA) without rupture, unspecified part ([facility]),Acute deep vein thrombosis (DVT) of right lower extremity, unspecified vein ([facility]),PAD (peripheral artery disease) ([facility]),Chronic low back pain, unspecified back pain laterality, unspecified whether sciatica present Take 1 Tablet by mouth every 6 (six) hours as needed for pain 45 Tablet 024 Active blood sugar diagnostic stripsIndications :Type 2 diabetes mellitus with hyperglycemia, without long-term current use of insulin ([facility]) Use to test blood sugar once daily (OneTouch Verio or Ultra 2, whichever is approved) E11.9 100 Each 3 024 Active VIMPAT 100 mg tabletIndications :Seizure ([facility]) TAKE 1 TABLET BY MOUTH 2 TIMES DAILY FOR A TYPE OF SEIZURE CALLED A FOCAL SEIZURE 60 Tablet 2 024 Active warfarin (COUMADIN) 10 mg tabletIndications :Acute deep vein thrombosis (DVT) of right lower extremity, unspecified vein ([facility]),History of DVT (deep vein thrombosis),Chron ic anticoagulation Take 1 Tablet by mouth once daily stop 5 mg 30 Tablet 5 024 Active lancetsIndication s:Type 2 diabetes mellitus with hyperglycemia, without long-term current use of insulin ([facility]) Use to test blood sugar once daily. (OneTouch Delica Plus 33G) E11.9 100 Each 3 024 Active metoclopramide (REGLAN) 10 mg tablet See Admin Instructions 024 Active semaglutide (OZEMPIC) 1 mg/dose (4 mg/3 mL) pen injectorIndicatio ns:Type 2 diabetes mellitus with hyperglycemia, without long-term current use of insulin ([facility]) Inject 1 mg into the skin once a week Every Sunday 3 mL 5 025 Active VENTOLIN HFA 90 mcg/actuation inhalerIndication s:Mild intermittent asthma without complication INHALE DANDO 2 SOPLIDOS CADA 4 HORAS CUANDO SEA NECESARIO PARA LA SIBILANCIA OR PARA LA FALTA 18 Each 3 025 Active albuterol HFA 90 mcg/actuation inhalerIndication s:Mild intermittent asthma without complication INHALE DANDO 2 SOPLIDOS CADA 4 HORAS CUANDO SEA NECESARIO PARA LA SIBILANCIA OR PARA LA FALTA 8.5 Each 3 024 2024 Discontinued semaglutide (OZEMPIC) 1 mg/dose (4 mg/3 mL) pen injectorIndicatio ns:Type 2 diabetes mellitus with hyperglycemia, without long-term current use of insulin ([facility]) Inject 1 mg into the skin once a week Every Sunday stop 0.5 mg 3 mL 1 024 2024 Discontinued(R eorder (E-Cancel Not Sent)) enoxaparin (LOVENOX) 120 mg/0.8 mL syringe INJECT THE CONTENTS OF 1 SYRINGE (0.8ML) UNDER THE SKIN EVERY 24 HOURS FOR 21 DAYS 024 2024 Discontinued(T herapy completed/Not needed) Active Problems Problem Noted Date Diagnosed Date Type 2 diabetes mellitus wit h hyperglycemia, without long-term current use of insulin ([facility]) 04/09/2024 Overview (09/03/2024): DM dx: unclear Glucometer: OneTouch Verio Current Diabetes RX: Ozempic 1 mg once weekly (Tuesdays) Jardiance 25 mg daily PRICE-I/ARB: BP is well-controlled, urine microalbumin/Scr ratio not completed, eGFR >60 mL/min/1.73m2 as of 06/23/24. Per KDIGO guidelines, patient is low-risk for microalbuminuria, will hold off on PRICE-I/ARB for now. Statin: Atorvastatin 80 mg daily every evening Pneumococcal vaccine: PCV13 (11/28/16) PPSV23 (04/11/19, 02/03/17, 09/30/13, 06/05/03) Diabetes foot exam: 05/14/24 per Diabetes retinal exam: Missed follow-up appt with [facility] in April 2024, recommended patient call to reschedule Patient reports [facility] will not see him due to multiple no-shows 05/24/23 at [facility] No evidence of diabetic retinopathy - the condition is stable but potentially progressive Nuclear sclerosis OU - the patient has been diagnosed with cataract, but vision remains relatively good at this time... no treatment is currently recommended. Epiretinal membrane O[facility]. Mild ERM. Monitor. Presbyopia [facility]. Good correction with reading glasses. 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 That was in the setting of vascular bypass thus was thought to be provoked. Started on warfarin - near the end of 2017/early 2018 he again developed extensive DVTs involving both lower extremities he was switched over to Pradaxa. Around that time he developed acute diverticulitis which resulted in placement of an IVC filter in anticipation for surgery. - Course has also been complicated by hematoma involving his left leg as well. From 2019 onwards, he had several similar presentations of suspected acute DVT, involving either the peroneal or distal femoral veins, largely in the left. - IVC filter removed 09/2020, recommended apixaban (given significant interactions with his HAART regimen), switched to lovenox/coumadin for new/chronic non- occlusive thrombus involving left femoral and popliteal veins; as patient complained of somnolence, lightheadedness, fatigue while on apixaban - Between Sep and May 2021 was transitioned back to Pradaxa by PCP as his INR was not responding to Warfarin - 04/2022 thought to have new non-occlusive DVTs in left femoral and popliteal, recommended switch to warfarin/lovenox - 09/10/2022 stopped warfarin as thought not responding (home INR ranging from 1.5-5.4), lovenox 90 mg BID continued 08/15/23 Protein S, antigen free 93 Protein S, antigen total 141 Protein S, functional 92 Antithrombin III functional 76 Protein C, functional 92 09/20/22 B2GP1, IgG <9 B2GP1, IgM <9 Cardiolipin Ab IgM 10 Cardiolipin Av IgG 14 01/04/23 OTHER FINDINGS: Unchanged known 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 IMPRESSION: 1. No evidence of acute deep venous thrombosis in the right lower extremity. 2. Chronic post-thrombotic scarring seen within the left femoral, popliteal and paired peroneal veins. 3. 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 I have personally reviewed the images and I agree with this report. WSN: [id number] Ordering Physician: Jordy Clark Lung nodule < 6cm on CT 01/01/2020 Overview (01/01/2020): Date of Exam : 11/03/2019 Referring Physician : CONNOR LARA [facility] [address] [place] [address] Exam : PT - *SKULL BASE TO MID THIGH CPT 38175 - Room Description : *[facility] Pt4 Technique : See technique below Final Report EXAM: PET-CT History: 44-year-old male with enlarging subpleural density left lower lobe. Comparison: CT angiogram chest 09/26/2019, CT abdomen and pelvis with contrast 10/14/2019 PET technique: The study was performed after the intravenous injection of 14 mCi F-[id number]. Positron emission tomography and CT were performed from the base of the brain to the midthighs with axial, coronal, sagittal, and 3-D reformats. The blood glucose at the time of injection was 152 mg/dL. Findings: Head/neck: There is a 0.5 cm level 2 lymph node with a peak SUV of 3 on image #21. This is associated with some symmetric mild increased metabolic activity in the tonsils.. Chest: 2.3 x 0.8 cm subpleural density in the left lower lobe is again identified and demonstrates increased FDG uptake with a max SUV of 2.0. In contrast, max SUV of normal-appearing lung parenchyma is 1.0. A few scattered small pulmonary nodules are noted which are below the resolution of FDG PET and do not demonstrate increased FDG uptake. There is no abnormal FDG uptake. No enlarged lymph nodes. Abdomen/pelvis: No abnormal FDG uptake. Small focus of increased FDG uptake in the right pelvis on image 142 corresponds to the right ureter. Osseous/cutaneous structures: Minimal cortical irregularity in the left posterior eighth rib is noted but was better seen on recent CT abdomen and pelvis. Impression: 2.3 cm subpleural density in the left lower lobe demonstrates increased FDG uptake. Minimal cortical irregularity of the adjacent left eighth rib is noted. These findings may be posttraumatic given adjacent rib deformity, neoplasm not excluded. Alternatively this may be inflammatory. Biopsy versus follow-up imaging to assess evolution of the opacity is recommended. Subcentimeter level 2 lymph node on the left adjacent to associated tonsillar activity. Findings are most consistent with an inflammatory or infectious etiology. Although neoplasm cannot be completely excluded I think it is much less likely. Chronic anticoagulation 07/14/2019 Overview (07/14/2019): For chronic left lower extremity DVT, Pradaxa 150mg oral BID Chronic lower back pain 07/14/2019 Overview (07/22/2019): [facility] 06/22/19 +Normal examination Psychogenic nonepileptic seizure 07/14/2019 Overview (07/14/2019): 04/08/19, [facility] Follow up note, Robert Pate MD: Pt has documented PNES, has not yet started psychotherapy, says he's in process. Impression and Plan: Stop Vimpat. Encouraged pt to make behavioral health appt. Abnormal CXR 05/07/2019 Overview (05/07/2019): 05/07/19 - CXR Chest Routine 2 Views, [facility], 12/26/18: Findings: The cardiomediastinal silhouette is enlarged. Emphysematous changes in the lungs. No consolidation. Right quadrant cholecystectomy clips. Partly visualized IVC filter...Mild degenerative changes in the thoracic spine. Mild compresion deformity of the mid thoracic vertebral body no retropulsion. Osteopenia of the bones. Correlate clinically. Impression: Emphysematous changes in the lungs. No consolidation. Mild compression deformity of the midthoracic vertebral body. No retropulsion. - CXR, [facility] 03/05/[place], IMPRESSION: 1. No acute cardiopulmonary abnormality. Increased density overlying the anterior left sixth rib likely represents a healing sixth rib fracture, as document in patient's EMR . Closed fracture of multiple ribs of left side with routine healing 05/07/2019 Overview (05/07/2019): 05/07/19 - - CT Chest Angiography, [facility], 03/27/19: Findings: [#5.] Bony structures demonstrate left lateral 5th through 8th rib fractures, partially healed and new from October 14, 2018. Mild adjacent pleural thickening. Scarring along the 8th rib. Mild wedge deformity of the T6 vertebral body. - CXR, [facility], 03/05/19, IMPRESSION: 1. No acute cardiopulmonary abnormality. Increased density overlying the anterior left sixth rib likely represents a healing sixth rib fracture, as document in patient's EMR . Venous insufficiency of both lower extremities 0 05/07/2019 Overview (05/07/2019): 05/07/19 - Like cause of bilateral knee pain. Will refer to PT for non- pharmacological Tx of pain. Kidney lesion 12/10/2018 Overview (12/10/2018): CT Angio Abdomen and pelvis 11/19/18\ IMPRESSION: 1. Postoperative changes of infrarenal abdominal aortic aneurysm repair with an aortobiiliac graft. No evidence of aneurysm recurrence. No aortic dissection. 2. No acute findings in the abdomen or pelvis to explain the patient's abdominal pain. 3. 0.6 cm arterially hyperenhancing focus in the lower pole of the right kidney is unchanged from prior examination and indeterminate. This could represent a small solid mass, versus a vascular anomaly related to adjacent cortical scarring. Recommend follow-up examination with renal mass protocol MRI in 6-12 months. Rectal pain 10/29/2018 Overview (10/29/2018): Admitted to [facility], 10/25/18 - Post surgical rectal pain Varicocele 10/22/2018 Overview (10/22/2018): US 10/22/18 - varicocele right Lesion of perianal area 10/22/2018 Overview (10/24/2018): Seen at [facility] Dr. Tineo for perianal lesions, w/ chronic diarrhea, verrusous in nature, underwent examination under anesthesia, complete colonoscopy with rectal biopsies, excision of multiple perianal lesions with concomitant hemorrhoidectomy x 2 Rafa Tineo MD 10/22/18 History of DVT (deep vein thrombosis) 10/04/2018 Overview (08/05/2024): Per [facility] notes from 09/20/22 - first developed a left lower extremity DVT diagnosed at [facility] back in 2016. That was in the setting of vascular bypass thus was thought to be provoked. Started on warfarin - near the end of 2017/early 2018 he again developed extensive DVTs involving both lower extremities he was switched over to Pradaxa. Around that time he developed acute diverticulitis which resulted in placement of an IVC filter in anticipation for surgery. - Course has also been complicated by hematoma involving his left leg as well. From 2019 onwards, he had several similar presentations of suspected acute DVT, involving either the peroneal or distal femoral veins, largely in the left. - IVC filter removed 09/2020, recommended apixaban (given significant interactions with his HAART regimen), switched to lovenox/coumadin for new/chronic non- occlusive thrombus involving left femoral and popliteal veins; as patient complained of somnolence, lightheadedness, fatigue while on apixaban - Between Sep and May 2021 was transitioned back to Pradaxa by PCP as his INR was not responding to Warfarin - 04/2022 thought to have new non-occlusive DVTs in left femoral and popliteal, recommended switch to warfarin/lovenox - 09/10/2022 stopped warfarin as thought not responding (home INR ranging from 1.5-5.4), lovenox 90 mg BID continued 08/15/23 Protein S, antigen free 93 Protein S, antigen total 141 Protein S, functional 92 Antithrombin III functional 76 Protein C, functional 92 09/20/22 B2GP1, IgG <9 B2GP1, IgM <9 Cardiolipin Ab IgM 10 Cardiolipin Av IgG 14 01/04/23 OTHER FINDINGS: Unchanged known 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 IMPRESSION: 1. No evidence of acute deep venous thrombosis in the right lower extremity. 2. Chronic post-thrombotic scarring seen within the left femoral, popliteal and paired peroneal veins. 3. 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 I have personally reviewed the images and I agree with this report. WSN: [id number] Ordering Physician: Jordy Clark Hospitalized 03/29/18 - 03/1018 - Proximal popliteal artery left lower extremity - INR subtherapuetic at home. Dilaudid for pain, Bypass/ anuersym repain by Dr. Mendieta. Presence of IVC filter 10/04/2018 S/P AAA repair using bifurcation graft 9 Clostridium difficile colitis 10/02/2018 Diverticulitis of large intestine without bleedi ng 10/02/2018 Overview (11/10/2020): 12/08/18 - chronic distal rectal soft tissue thickening. Fatty infiltration of liver. [facility] ED 10/11/16 for abdominal pain. Pt stated had EVAR in July in [place], which is odd because normal-caliber aorta with no visible stent seen on CT. According to note pt with odd affect. Labs unremarkable. Appears under influence of something. Prediabetes 09/13/2017 Immobility 04/19/2017 Overview (04/19/2017): Requiring raised toilet seat and bath bench DVT (deep venous thrombosis) ([facility]) 7 Overview (08/05/2024): Per [facility] notes from 09/20/22 - first developed a left lower extremity DVT diagnosed at [facility] back in 2016. That was in the setting of vascular bypass thus was thought to be provoked. Started on warfarin - near the end of 2017/early 2018 he again developed extensive DVTs involving both lower extremities he was switched over to Pradaxa. Around that time he developed acute diverticulitis which resulted in placement of an IVC filter in anticipation for surgery. - Course has also been complicated by hematoma involving his left leg as well. From 2019 onwards, he had several similar presentations of suspected acute DVT, involving either the peroneal or distal femoral veins, largely in the left. - IVC filter removed 09/2020, recommended apixaban (given significant interactions with his HAART regimen), switched to lovenox/coumadin for new/chronic non- occlusive thrombus involving left femoral and popliteal veins; as patient complained of somnolence, lightheadedness, fatigue while on apixaban - Between Sep and May 2021 was transitioned back to Pradaxa by PCP as his INR was not responding to Warfarin - 04/2022 thought to have new non-occlusive DVTs in left femoral and popliteal, recommended switch to warfarin/lovenox - 09/10/2022 stopped warfarin as thought not responding (home INR ranging from 1.5-5.4), lovenox 90 mg BID continued 08/15/23 Protein S, antigen free 93 Protein S, antigen total 141 Protein S, functional 92 Antithrombin III functional 76 Protein C, functional 92 09/20/22 B2GP1, IgG <9 B2GP1, IgM <9 Cardiolipin Ab IgM 10 Cardiolipin Av IgG 14 01/04/23 OTHER FINDINGS: Unchanged known 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 IMPRESSION: 1. No evidence of acute deep venous thrombosis in the right lower extremity. 2. Chronic post-thrombotic scarring seen within the left femoral, popliteal and paired peroneal veins. 3. 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 I have personally reviewed the images and I agree with this report. WSN: [id number] Ordering Physician: Jordy Clark Hospitalized 03/29/18 - 03/1018 - Proximal popliteal artery left lower extremity - INR subtherapuetic at home. Dilaudid for pain, Bypass/ anuersym repain by Dr. Mendieta. Lovenox and Coumadin 6 md daily. INR 2, then stop lovenox. Per [facility] note, has Coumadin clinic. Should follow with Dr. Mendieta for repair. Hepatitis B core antibody positive 11/28/2016 GERD (gastroesophageal reflux disease) 3 Hyperlipidemia LDL goal <70 07/29/2013 HIV disease ([facility]) 07/22/2013 Overview (01/23/2024): Presently on raltegravir HD, Prezcobix, and tenofovir Patient is HIV with multiple resistant mutations.At one point had attempted to discontinue the patient's tenofovir but quickly noted with worsening viremia that only resolved after restarting tenofovir. Because of this the patient remains on this triple regimen which he seems to be tolerating fairly well. Regarding this offers no new complaints. 07/14/19 - compliant with HAART. Per 06/22/19 [facility] ED report last labs were in December with CD4 count of 568 and viral load undetectable. -06/10/13: from [place] records CD4 count: 432 CD8: 1111 CD4/CD8 ratio: 0.39 Viral Load: <75 Seizure ([facility]) 07/22/2013 Enlarged prostate 07/22/2013 COPD (chronic obstructive pulmonary disease) ([facility]) 07/22/2013 History of appendectomy Overview (07/29/2013): 2004 Undiagnosed cardiac murmurs PAD (peripheral artery disease) ([facility]) Epilepsy, abdominal ([facility]) Hypothyroid Chronic obstructive asthma w ith status asthmaticus ([facility]) Anemia, unspecified Allergic state Resolved Problems Problem Noted Date Diagnosed Date Resolved Date Uncontrolled type 2 diabetes mellitus with hyperglycemia ([facility]) 05/15/2024 07/02/2024 Class 1 obesity without seri ous comorbidity in adult 04/09/2024 04/09/2024 Diabetes mellitus due to und erlying condition with chronic kidney disease, without long-term current use of insulin ([facility]) 02/20/2019 04/09/2024 H/O CT scan of abdomen 12/09/201811/10 Overview (11/10/2020): 12/08/18 - chronic distal rectal soft tissue thickening. Fatty infiltration of liver. [facility] 10/11/16 for abdominal pain. Pt stated had EVAR in July in [place], which is odd because normal-caliber aorta with no visible stent seen on CT. According to note pt with odd affect. Labs unremarkable. Appears under influence of something. Abdominal pain 11/03/2016 11/10/2020 Overview (11/03/2016): [facility] ED 10/11/16 for abdominal pain. Pt stated had EVAR in July in [place], which is odd because normal-caliber aorta with no visible stent seen on CT. According to note pt with odd affect. Labs unremarkable. Appears under influence of something. Asthma 07/22/2013 08/19/2018 Asymptomatic human immunodef iciency virus (HIV) infection status ([facility]) 021 Encounters Date Type Department Care Team Description 09/02/2024 2:40 PM EST Office Visit [address] [phone] Arnaldo Osman, SarahD Type 2 diabetes mellitus with hyperglycemia, without long-term current use of insulin ([facility]) (Primary Dx); Venous insufficiency of both lower extremities; History of DVT (deep vein thrombosis); Acute deep vein thrombosis (DVT) of right lower extremity, unspecified vein ([facility]) 09/02/2024 Travel 08/14/2024 Case Management Visit [address] [phone] Constanza Hubbard [place] 08/08/2024 11:00 AM EST Office Visit [address] [phone] Suzy Pearce PA-C HIV disease ([facility]) (Primary Dx); Immunization due 08/08/2024 Travel 08/04/2024 2:40 PM EST Office Visit [address] [phone] Arnaldo Osman PharmD Type 2 diabetes mellitus with hyperglycemia, without long-term current use of insulin ([facility]) (Primary Dx); Acute deep vein thrombosis (DVT) of right lower extremity, unspecified vein ([facility]); History of DVT (deep vein thrombosis); Chronic anticoagulation 08/04/2024 Travel 07/28/2024 5:00 PM EST Office Visit [address] [phone] Thomas Kam PA Hospital discharge follow-up (Primary Dx); History of DVT (deep vein thrombosis); Acute deep vein thrombosis (DVT) of right lower extremity, unspecified vein (HCC-CMS) 07/28/2024 Travel 07/23/2024 Interim Notes [address] [phone] Thomas Kam PA Acute deep vein thrombosis (DVT) of right lower extremity, unspecified vein (HCC-CMS) (Primary Dx) 07/02/2024 2:40 PM EST Office Visit [facility] [address] [place] [address] Arnaldo Osman PharmD Type 2 diabetes mellitus with hyperglycemia, without long-term current use of insulin (HCC-CMS) (Primary Dx); Hyperlipidemia LDL goal <70 07/02/2024 Travel 06/30/2024 11:20 AM EST Office Visit [address] [phone] Thomas Kam PA Rodriguez, [facility] Hospital discharge follow-up (Primary Dx); Chronic deep vein thrombosis (DVT) of calf muscle vein of left lower extremity (HCC-CMS); Venous insufficiency of both lower extremities; Abdominal aortic aneurysm (AAA) without rupture, unspecified part (HCC-CMS); Acute deep vein thrombosis (DVT) of right lower extremity, unspecified vein (HCC-CMS); PAD (peripheral artery disease) (HCC-CMS); Chronic low back pain, unspecified back pain laterality, unspecified whether sciatica present 06/30/2024 Travel from Last 3 Months Immunizations Name Administration Dates Next Due HEP B,ADULT 01/06/2004,06/05/2003,03/27/2003 Hep A, adult 11/16/2003,03/27/2003 Hep B, Adult/Adol (ENERGIX/RECOMBIVAX) 10/28/2013,09/30/2013 03/30/2014 Hep B,adult,adjuvanted (HEPLISAV) 10/06/2022,03/2022 INFLUENZA, SEASONAL, INJECTABLE 07/29/2013,05/06 MENINGOCOCCAL MCV4P (MENACTRA) 11/18/2018,2016 MMR (MMR II/Priorix) 05/04/2022,04/03/2022 Meningococcal (A,C,Y, W) con jugate vaccine 01/25/2024 Moderna COVID-19 Vaccine, re d cap blue label, 12+ Primary Series 04/03/2022,09/02/2021,08/08/2021 PNEUMOCOCCAL CONJUGATE PCV 13 11/28/2016 PNEUMOCOCCAL CONJUGATE PCV 2 0 (Prevnar) 08/08/2024 PNEUMOCOCCAL POLYSACCHARIDE PPV23 2018,02/03/2017,09/30/2013,05/27 PPD 08/13/2018, 7,07/29/2013,11/25 TDAP 01/25/2024,09/30/2013 Td(adult),2 Lf tetanus toxoid,preservative free 06/05/2003 ZOSTER VACCINE, RECOMBINANT (SHINGRIX) 06/29/2021,05/18/2021 Social History Tobacco Use Types Packs/Day Years [...] No / Unsure 09/02/2024 2:18 PM EST Last Filed Vital Signs Vital Sign Reading Time Taken Comments Blood Pressure 108/78 08/08/2024 10:43 AM EST Pulse 87 09/02/2024 2:35 PM EST Temperature 36.6 ??C (97.8 ??F) 08/08/2024 10:[address] Respiratory Rate 16 09/02/2024 2:35 PM EST Oxygen Saturation 97% 09/02/2024 2:35 PM EST Inhaled Oxygen Concentration - - Weight 79.8 kg (176 lb) 09/02/2024 2:35 PM EST Height 175.3 cm (5' 9 ) 09/02/2024 2:35 PM EST Body Mass Index 25.99 09/02/2024 2:35 PM EST Plan of Treatment Upcoming Encounters Date Type Department Care Team (Late st Contact Info) Description 10/01/2024 2:40 PM EST Office Visit [facility] [address] [place] [address] Arnaldo Osman, SarahD [address] [place] [phone] 11/19/2024 3:00 PM EDT Office Visit [facility] [address] [place] [address] Thomas Kam PA [address] [place] [address] Janey Messer [address] [place] [address] Health Maintenance Due Date Last Done Comments Dental Prophy 1973 CT Colonography 2018 FIT/gFOBT 2018 Fecal DNA 2018 Flexible Sigmoidoscopy 2018 Diabetes Microalbumin (w/Creatinine) 11/05/2022 11/05/2021 Dental BW 03/19/2023 03/17/2022 Dental Examination 03/19/2023 03/17/2022 Dental Perio Charting 03/19/2023 03/17/2022 Medicare Annual Wellness Visit 11/24/2023 0 11/23/2022, 11/23/2022, 10/27/2021, Additional history exists [id number] ( season) 2024 04/03/2022, 09/02/2021, 08/08/2021 Imm-Influenza (#1) 2024 08/13/2018, 1 09/29/2012, 05/06/2010 Diabetes HbA1c 06/04/2024 03/04/2024, 12/25, 06/15/2022, Additional history exists Alcohol and Drug Screen 08/27/2024 10/23/19 24, 11/23/2022, 09/19/2022, Additional history exists Depression Annual Screen 08/27/2024 024, 10/02/2019, 07/10/2018, Additional history exists Lipid Screening 08/30/2024 08/30/2023, 05/28, 03/28/2021, Additional history exists TSH Monitoring 08/30/2024 08/30/2023, 05/28, 04/11/2019, Additional history exists Syphilis Screening 01/24/2025 01/25/2024, 0 01/29/2023, 01/29/2023, Additional history exists Tobacco Screening 04/08/2025 04/08/2024, , 04/14/2021, Additional history exists Diabetes Foot Exam 05/14/2025 05/14/2024, 1 10/04/2021, 04/14/2021 Urine Drug Screen 05/14/2025 05/14/2024 Serum Creatinine 06/23/2025 06/23/2024, , 03/04/2024, Additional history exists Hypertension Screening (#1) 08/08/2025 Retinopathy Screening 08/13/2025 08/13/2024 , 05/23/2023, 05/25/2022 Dental FMX/Pano 03/19/2027 03/17/2022 Imm-Meningococcal (4 - Risk 2-dose series) 01/24/2029 01/25/2024, 11/18/2018, 06/19/2017 Colonoscopy 09/20/2031 09/20/2021 Colorectal Cancer Screening 09/20/2031 Imm-DTaP/Tdap/Td (3 - Td or Tdap) 01/24/2034 01/25/2024, 09/30/2013, 06/05/2003 Imm-Hepatitis A Completed 11/16/2003, 03/27/2003 Imm-Zoster, Recombinant Completed 06/29/2021, 05/18 Imm-MMR Discontinued 05/04/2022, 04/03/2022 Imm-Hepatitis B Completed 10/06/2022, 03/2022, 10/28/2013, Additional history exists Hepatitis C Screening Completed 01/25/2024 , 01/29/2023, 10/07/2021, Additional history exists Imm-Pneumococcal Completed 08/08/2024, , 02/03/2017, Additional history exists Procedures Procedure Name Priority Date/Time Associated Diagnosis Comments INR COAGUCHEK XS (POCT) Routine 09/02/2024 2:39 PM EST Venous insufficiency of both lower extremities History of DVT (deep vein thrombosis) Acute deep vein thrombosis (DVT) of right lower extremity, unspecified vein ([facility]) GLUCOSE, BLOOD BY GLUCOSE MONITORING DEVICE (CLIA WAIVED)POCT Routine 09/02/2024 2:38 PM EST Type 2 diabetes mellitus with hyperglycemia, without long-term current use of insulin ([facility]) IMAGING SCANNED DOCUMENT 08/29/2024 3:00 AM EST INR COAGUCHEK (POCT) Routine 08/18/2024 10:00 AM EST INR COAGUCHEK (POCT) Routine 08/13/2024 1:00 PM EST EYE EXAM 08/13/2024 3:00 AM EST INR COAGUCHEK (POCT) Routine 08/08/2024 11:00 AM EST INR COAGUCHEK XS (POCT) Routine 08/04/2024 3:24 PM EST Acute deep vein thrombosis (DVT) of right lower extremity, unspecified vein (HCC-CMS) History of DVT (deep vein thrombosis) Chronic anticoagulation GLUCOSE, BLOOD BY GLUCOSE MONITORING DEVICE (CLIA WAIVED)POCT Routine 08/04/2024 3:17 PM EST Type 2 diabetes mellitus with hyperglycemia, without long-term current use of insulin ([facility]) INR COAGUCHEK (POCT) Routine 07/31/2024 1:00 PM EST INR COAGUCHEK (POCT) Routine 07/28/2024 1:00 PM EST IMAGING SCANNED DOCUMENT 07/28/2024 3:00 AM EST PROCEDURE SCANNED DOCUMENT 07/03/2024 3:00 AM EST GLUCOSE, BLOOD BY GLUCOSE MONITORING DEVICE (CLIA WAIVED)POCT Routine 07/02/2024 2:36 PM EST Type 2 diabetes mellitus with hyperglycemia, without long-term current use of insulin ([facility]) REFERRAL SCANNED DOCUMENT 07/02/2024 3:00 AM EST COMPREHENSIVE METABOLIC PANEL Routine 06/23/2024 2:14 PM EDT HIV disease ([facility]) DRUG MONITORING, PANEL 8 WITH CONFIRMATION, URINE Routine 05/14/2024 5:26 PM EDT Morphine user Encounter for therapeutic drug level monitoring HGBA1C W/MPG Routine 03/04/2024 1:28 PM EDT Hypertriglyceridemia Diabetes mellitus due to underlying condition with stage 1 chronic kidney disease, without long-term current use of insulin ([facility]) SYPHILIS ANTIBODY CASCADING REFLEX Routine 01/25/2024 10:48 AM EDT HIV disease ([facility]) HEPATITIS C AB W/RFLX HCV RNA, QT, RT PCR Routine 01/25/2024 10:48 AM EDT HIV disease ([facility]) Other problems related to lifestyle TSH W/RFLX FREE T4 Routine 08/30/2023 11 :45 AM EST Hypertriglyceridemia PAD (peripheral artery disease) ([facility]) History of DVT (deep vein thrombosis) LIPID PANEL Routine 08/30/2023 11:45 AM EST Hypertriglyceridemia PAD (peripheral artery disease) ([facility]) History of DVT (deep vein thrombosis) INTRAORAL - COMP SERIES OF RADIOGRAPHIC IMAGES Routine 03/17/2022 2:20 PM EDT Encounter for dental examination PERIODIC ORAL EVALUATION ESTABLISHED PATIENT Routine 03/17/2022 2:20 PM EDT Encounter for dental examination MICROALBUMIN, URINE, 24HR (W/O CREAT) Routine 11/05/2021 9:00 AM EST Routine adult health maintenance Diabetes mellitus due to underlying condition with stage 1 chronic kidney disease, without long-term current use of insulin ([facility]) REFERRAL FOR COLONOSCOPY Routine 09/20/2021 3:00 AM EST Screening for malignant neoplasm of colon HIV disease ([facility]) from Last 3 Months or Most Recently Relevant to Health Maintenance Results * (ABNORMAL) INR COAGUCHEK XS (POCT) (09/02/2024 2:39 PM EST) Only the most recent of2 resultswithin the time period is included. INR 1.9(A) 2.0 - 3.5 Ratio [facility] POCT Comment:22.3 sec Blood Blood / Unknown 09/02/2024 2 :39 PM EST us Arnaldo Osman PharmD LAB - BLOOD DRAW Final Re sult [facility] POCT * (ABNORMAL) GLUCOSE, BLOOD BY GLUCOSE MONITORING DEVICE (CLIA WAIVED)POCT (09/02/2024 2:38 PM EST) Only the most recent of3 resultswithin the time period is included. GLUCOSE 137(A) 70 - 100 mg/dL [facility] POCT Capillary Blood Blood / Unknown 2:38 PM EST Arnaldo Osman PharmD LAB - BLOOD DRAW Final Re sult [facility] POCT * IMAGING SCANNED DOCUMENT (08/29/2024 3:00 AM EST) Only the most recent of2 resultswithin the time period is included. 08/29/2024 3:00 AM EST Thomas PERZE SCAN IMAGING Final Result * INR COAGUCHEK (POCT) (08/18/2024 10:00 AM EST) Only the most recent of5 resultswithin the time period is included. INR 2.1 2.0 - 3.0 Ratio PATIENT HOME TESTING INTERNAL CONTROL PASS PASS PAT IENT HOME TESTING COAGULATION DEVICE CODE 0 PATIENT HOME TESTING Capillary Blood Blood / Unknown 10:00 AM EST Zoila Ochin LAB - BLOOD DRAW Final Result Performing Organization Address City/[facility]/ZIP Co de Phone Number PATIENT HOME TESTING * EYE EXAM (08/13/2024 3:00 AM EST) 08/13/2024 3:00 AM EST Thomas PEREZ OTHER Edited Result - Final * PROCEDURE SCANNED DOCUMENT (07/03/2024 3:00 AM EST) 07/03/2024 3:00 AM EST Thomas PEREZ SCAN PROCEDURES Final Result * REFERRAL SCANNED DOCUMENT (07/02/2024 3:00 AM EST) 07/02/2024 3:00 AM EST Thomas PEREZ SCAN REFERRAL Final Result * (ABNORMAL) COMPREHENSIVE METABOLIC PANEL (06/23/2024 2:14 PM EDT) GLUCOSE 123(H) 65 - 99 mg/dL [facility] Comment: ?Fasting reference interval For someone without known diabetes, a glucose value between 100 and 125 mg/dL is consistent with prediabetes and should be confirmed with a follow-up test. UREA NITROGEN (BUN) 15 7 - 25 mg/dL [facility] CREATININE (blood) 1.16 0.70 - 1.30 mg/dL [facility] EGFR 77 > OR = 60 mL/min/1. 73m2 [facility] BUN/CREATININE RATIO SEE NOTE: [facility] Comment: ?? Not Reported: BUN and Creatinine are within ?? reference range. ? SODIUM 134(L) 135 - 146 mmol/L [facility] POTASSIUM 4.4 3.5 - 5.3 mmol/L [facility] CHLORIDE 101 98 - 110 mmol/L [facility] CARBON DIOXIDE 19(L) 20 - 32 mmol/L [facility] CALCIUM 9.2 8.6 - 10.3 mg/dL [facility] PROTEIN, TOTAL 8.9(H) 6.1 - 8.1 g/dL [facility] ALBUMIN 4.3 3.6 - 5.1 g/dL [facility] GLOBULIN 4.6(H) 1.9 - 3.7 g/dL (calc) [facility] ALBUMIN/GLOBULI N RATIO 0.9(L) 1.0 - 2.5 (calc) [facility] BILIRUBIN, TOTAL 0.4 0.2 - 1.2 mg/dL [facility] ALKALINE PHOSPHATASE 109 35 - 144 U/L [facility] AST 35 10 - 35 U/L [facility] ALT 32 9 - 46 U/L [facility] Blood Blood / Unknown 06/23/2024 2 :14 PM EDT 06/23/2024 2:15 PM EDT Suzy Pearce PA-C LAB - BLOOD DRAW Edited Resu lt - Final Performing Organization Address [facility] Co de Phone Number [employer] [address] [address], [facility] [address] [address] * DRUG MONITORING, PANEL 8 WITH CONFIRMATION, URINE (05/14/2024 5:26 PM EDT) Pathologist [facility] AMPHETAMINES NEGATIVE <500 [facility] BENZODIAZEPINES NEGATIVE <100 QUES T Kleo [facility] BUPRENORPHINE NEGATIVE <5 [employer] COCAINE METABOLITE NEGATIVE <150 Q UEST [facility] 6 ACETYLMORPHINE NEGATIVE <[address] [facility] [employer] MARIJUANA METABOLITE NEGATIVE CONFIRMED <20 [facility] MEDMATCH MARIJUANA METAB PENDING [employer] MARIJUANA METABOLITE NEGATIVE <5 [facility] MEDMATCH MARIJUANA METAB PENDING [employer] [facility] Marijuana Comments See Note Q UEST [employer] Comment:See LDT Notes MDMA NEGATIVE <500 [facility] OPIATES NEGATIVE <100 [facility] OXYCODONE NEGATIVE <100 [facility] CREATININE 102.7 > or = 20.0 mg/dL [facility] PH 6.1 4.5 - 9.0 [facility] OXIDANT NEGATIVE <200 [facility] ALCOHOL METABOLITES NEGATIVE <500 [facility] Urine Urine specimen / Unknown 05/14/2024 5:26 PM EDT 05/15/2024 5:53 AM EDT Thomas PEREZ LAB - NO BLOOD DRAW Edited Res ult - Final Performing Organization Address [facility]/ZIP Co de Phone Number [employer] [address] [address], [facility] [address] [address] * (ABNORMAL) HGBA1C W/MPG (03/04/2024 1:28 PM EDT) HEMOGLOBIN A1C 7.9(H) <5.7 % of total Hgb [facility] Comment: For someone without known diabetes, a hemoglobin A1c value of 6.5% or greater indicates that they may have diabetes and this should be confirmed with a follow-up test. For someone with known diabetes, a value <7% indicates that their diabetes is well controlled and a value greater than or equal to 7% indicates suboptimal control. A1c targets should be individualized based on duration of diabetes, age, comorbid conditions, and other considerations. Currently, no consensus exists regarding use of hemoglobin A1c for diagnosis of diabetes for children. ?? MEAN PLASMA GLUCOSE 204 mg/dL (calc) [facility] Blood Blood / Unknown 03/04/2024 1 :28 PM EDT 03/04/2024 1:28 PM EDT Thomas PEREZ LAB - BLOOD DRAW Edited Result - Final Performing Organization Address [facility] Co de Phone Number [employer] [address] [place] [address], [employer] [address] [address] * HEPATITIS C AB W/RFLX HCV RNA, QT, RT PCR (01/25/2024 10:48 AM EDT) HEPATITIS C ANTIBODY NON-REACT ABDON NON-REACT ABDON [facility] Comment: HCV antibody was non-reactive. There is no laboratory evidence of HCV infection. In most cases, no further action is required. However, if recent HCV exposure is suspected, a test for HCV RNA (test code 71059) is suggested. For additional information please refer to http://education.K[employer]/faq/QGH16w6 (This link is being provided for informational/ educational purposes only.) Blood Blood / Unknown 01/25/2024 1 0:48 AM EDT 01/25/2024 10:48 AM EDT Narrative [employer] - 01/29/2024 3:04 PM EDT FASTING:YES us Suzy Pearce PA-C LAB - BLOOD DRAW Edited Resu lt - Final Performing Organization Address [facility]/ZIP Co de Phone Number [employer] [address] [place] [phone], [place] [facility] [address] [address] * SYPHILIS ANTIBODY CASCADING REFLEX (01/25/2024 10:48 AM EDT) Pathologist [facility] T. PALLIDUM AB, EIA NEGATIVE NEGATIVE [employer] [facility] Comment: No antibodies to T. pallidum (the agent causing syphilis) were detected in the specimen. This result, however, does not exclude very recent T. pallidum infection; testing of a second specimen, collected 2-4 weeks after this specimen, is recommended if the index of suspicion for recent infection is high. Blood Blood / Unknown 01/25/2024 1 0:48 AM EDT 01/25/2024 10:48 AM EDT Narrative [employer] [facility] - 01/29/2024 3:04 PM EDT FASTING:YES Suzy Pearce PA-C LAB - BLOOD DRAW Edited Resu lt - Final Performing Organization Address City/[facility]/ZIP Co de Phone Number [employer] [address] [address], [facility] [address] [address] * TSH W/RFLX FREE T4 (08/30/2023 11:45 AM EST) Pathologist [facility] TSH W/REFLEX TO FT4 2.29 0.40 - 4.50 mIU/L [employer] [facility] Blood Blood / Unknown 08/30/2023 1 1:45 AM EST 08/30/2023 11:45 AM EST Thomas PEREZ LAB - BLOOD DRAW Edited Result - Final [employer] [address] [address], [facility] [address] [address] * (ABNORMAL) LIPID PANEL (08/30/2023 11:45 AM EST) Pathologist [facility] CHOLESTEROL, TOTAL 134 <200 mg/dL [employer] [facility] HDL CHOLESTEROL 38(L) > OR = 40 mg/dL [facility] TRIGLYCERIDES 397(H) <150 mg/dL [facility] Comment: If a non-fasting specimen was collected, consider repeat triglyceride testing on a fasting specimen if clinically indicated. Sammy et al. J. of Clin. Lipidol. 2015;9:129-169. LDL-CHOLESTEROL 54 99 mg/dL (calc) [facility] Comment: Reference range: <100 Desirable range <100 mg/dL for primary prevention; ?? <70 mg/dL for patients with CHD or diabetic patients with > or = 2 CHD risk factors. LDL-C is now calculated using the Charlie calculation, which is a validated novel method providing better accuracy than the Friedewald equation in the estimation of LDL-C. Mahesh SS et al. ADA. 2013;310(19): 7415-3570 (http://education.[employer]/faq/VTH609) CHOL/HDLC RATIO 3.5 <5.0 (calc) [facility] NON-HDL CHOLESTEROL 96 <130 mg/dL (calc) [facility] Comment: For patients with diabetes plus 1 major ASCVD risk factor, treating to a non-HDL-C goal of <100 mg/dL (LDL-C of <70 mg/dL) is considered a therapeutic option. Blood Blood / Unknown 08/30/2023 1 1:45 AM EST 08/30/2023 11:45 AM EST Thomas PEREZ LAB - BLOOD DRAW Final Result [employer] [address] [place] [phone], [facility] [address] [place] [phone] * MICROALBUMIN, URINE, 24HR (W/O CREAT) (11/05/2021 9:00 AM EST) MICROALBUMIN, 24 HOUR UR 8 <30 mg/24 h [facility] MICROALBUMIN, 24 HOUR UR 5 <20 mcg/min [facility] Comment: The ADA defines abnormalities in albumin excretion as follows: Albuminuria Category ?? Result ??(mg/24 h) ? (mcg/min) Normal to Mildly increased ?<30 ?<20 Moderately increased ? 30-299 ? 20-199 Severely increased ? > OR = 300 ? > OR = 200 The ADA recommends that at least two of three specimens collected within a 3-6 month period be abnormal before considering a patient to be within a diagnostic category. Urine Urine specimen / Unknown 11/05/2021 9:00 AM EST 11/07/2021 11:08 AM EDT us Thomas PEREZ LAB - NO BLOOD DRAW Final Resu lt [employer] [place] [employer] [address] [place] [address], [employer] [facility] [address] [address] * REFERRAL FOR COLONOSCOPY (09/20/2021 3:00 AM EST) 09/20/2021 3:00 AM EST us Thomas PEREZ REFERRAL Edited Result - Final from Last 3 Months or Most Recently Relevant to Health Maintenance [place] [facility] Advance Directives Documents on File Type Date Recorded 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
--- OUTSIDE RECORDS SUMMARY | 2024-09-25 19:41 | XMS_ITS | Clinical Summary ---
Author Organization [facility] Address [address] [place] [address] Care Team Providers Care Drapery And Upholstery Estimator Name Role Phone Thomas Kam Primary Care Provider + Allergies No known active allergies Medications Medication Sig Dispensed Refills Start Date End Date Status traMADol (ULTRAM) 50 MG tablet Take 50 mg by mouth every 6 (six) hours as needed for pain. 12 tablet 0 02/16/2023 Active Social History Tobacco Use Types Packs/Day Years Used Date Smoking Tobacco: Never Assessed Sex and Gender Information Value Date Recorded Sex Assigned at Male 02/21/2023 2:52 PM EDT Gender Identity Not on file Sexual Orientation Not on file Job Start Date Occupation Industry Not on file Not on file Not on file Last Filed Vital Signs Vital Sign Reading Time Taken Comments Blood Pressure 130/95 02/16/2023 10:39 AM EDT Pulse 79 02/16/2023 10:39 AM EDT Temperature 36.9 ??C (98.4 ??F) 02/16/2023 10:39 AM E DT Respiratory Rate 16 02/16/2023 10:39 AM EDT Oxygen Saturation 98% 02/16/2023 10:39 AM EDT Inhaled Oxygen Concentration - - Weight - - Height - - Body Mass Index - - Plan of Treatment Health Maintenance Due Date Last Done Comments Hepatitis B Vaccines (1 of 3 - 3-dose series) 1973 Hepatitis C Screening 1973 COVID-19 Vaccine (#1) 02/19/1974 Depression Screening 1985 Preventative Health Evaluation 1991 DTap / Tdap / Td (1 - Tdap) 1992 Colon Cancer Screening (Colonoscopy) 2018 Shingrix-Zoster Vaccine (1 of 2) 2023 Influenza Vaccine (#1) 2024 Pneumococcal Vaccine Aged Out No long er eligible based on patient's age to complete this topic RSV Ped < 20 months Aged Out No longe r eligible based on patient's age to complete this topic Care Teams Drapery And Upholstery Estimator Relationship Specialty Start Date End Date Thomas Kam PA [address] [place] [phone] PCP - General Physician Occupational Therapy Asst 02/16/23
--- OUTSIDE RECORDS SUMMARY | 2024-09-25 19:41 | XMS_ITS | Encounter Summary ---
Author Organization [facility] Address [address] [place] [address] Care Team Providers Care Secondary History Teacher Name Role Phone Thomas Kam Primary Care Provider [phone] Encounter Details Date Type Department Care Team (Latest Contact Info) Description 09/02/2024 Travel Social History Tobacco Use Types Packs/Day Years Used Date Smoking Tobacco: Former Cigarettes 0.5 30 1 10/09/1985 - 08/08/2016 Smokeless Tobacco: Former Quit: 08/08/2016 Comments:appt with Lis robert smoking cess. Alcohol Use Standard Drinks/Week Comments [...] PM EST documented as of this encounter Plan of Treatment Upcoming Encounters Date Type Department Care Team (Late st Contact Info) Description 10/01/2024 2:40 PM EST Office Visit [facility] [address] [place] [address] Arnaldo Osman PharmD [address] [place] [address] 11/19/2024 3:00 PM EDT Office Visit [facility] [address] [place] [phone] Thomas Kam PA [address] [place] [address] Janey Messer [address] [place] [phone] documented as of this encounter Visit Diagnoses Not on filedocumented in this encounter Additional Health Concerns Assessment Noted Time PHQ-9 Depression Total Score: 1 10/23/19 24 1:39 PM PST documented as of this encounter Care Teams Secondary History Teacher Relationship Specialty Start Date End Date Thomas Kam PA [address] [place] [address] PCP - General Internal Medicine 02/22/17 documented as of this encounter
[2024-09-25] MEDS: iohexoL 350 MG/ML 100 ML INFUS..BTL 85 ML IV (19:53)
--- NOTE | 2024-09-25 20:05 | PC.NURSE ---
PA made aware of pain reeval.
[2024-09-25] MEDS: Morphine Sulfate 10 MG/ML CARTRIDGE 8 MG IVPUSH (20:57)
[2024-09-25 21:15] LABS: Hematocrit 38.5 % (42.0-52.0); Hemoglobin 12.5 g/dl (14.0-18.0)
[2024-09-25] MEDS: cefTRIAXone sodium 2 GM VIAL IVPUSH (21:43)
[2024-09-25 21:45] LABS: Lactic Acid 1.3 mmol/L (0.5-2.0)
--- NOTE | 2024-09-25 21:55 | PC.NURSE ---
pt reports pain is currently tolerable and does not needs further interventions at this time. awaiting admission orders. call arnold within reach.
--- NOTE | 2024-09-25 22:05 | PHA.MEDREC ---
Addendum entered by Chevy Fay [facility] 09/25/24 22:15: Ozempic dose has increased over last 3 months to 1mg weekly. Addendum entered by Chevy Fay [facility] 09/25/24 22:10: Reviewed by [facility] Original Note: Pharmacy Consult ? Medication Reconciliation Pharmacy has completed the medication reconciliation. Spoke to patient through desktop publisher service ([facility]is[facility]) to confirm med list. Patient states he is no longer taking Azelastine eye drops, and Fondaparinux 7.5 mg injection, last dose was Sunday09-23-24. patient confirmed Ozempic 0.5 mg every Sunday, last dose 09/23/24, and Warfarin 10 mg daily. Patient states he took all mis morning medications today but needs his night time medication.
--- NOTE | 2024-09-25 22:06 | P.HPHOSP_ITS ---
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 Patient was recently discharged from [facility] on 09/17/2024 for left-sided weakness (recurrent symptom with multiple negative CTs and MRIs felt to be psychogenic), during that hospitalization was noted to have nonocclusive left femoral popliteal vein thrombus which was seen by vascular and felt to be chronic. His INR was 9. Instructed to hold warfarin on discharge, however, it seems like patient continued warfarin and fondaparinux. On day of presentation noted to have bright red blood in toilet bowl with bowel movement. So he came to hospital. In ED noted to have acute hemorrhage in the inferior rectal vault and acute proctitis pattern. Patient complaining of bilateral lower abdominal pain, denies anal pain. hgb 13.7, then dropped to 12.5. no further blood in ED Review of Systems 2 Review of Systems: Yes all other systems are reviewed and are negative [facility] Medical History Seizure Popliteal artery aneurysm AAA (abdominal aortic aneurysm) Left sided abdominal pain COVID-19 DVT (deep venous thrombosis) Diabetes Seizure disorder HIV (human immunodeficiency virus infection) Surgical History Status post cholecystectomy Status post laparoscopic appendectomy H/O fasciotomy S/P AAA (abdominal aortic aneurysm) repair S/P IVC filter Social History Alcohol intake: never Patient Tobacco Use Status: Former Tobacco user Advance Directives: Yes Advance Directives Information Provided: No Advance Directives on File: No service: No Meds Allergies Allergy/AdvReac Type Severity Reaction Status Date / Time influenza virus vaccine, Allergy Severe GUILLIAN Verified 09/25/24 13:56 specific BARRE HX. [FLU VACCINE] tramadol [TRAMADOL] Allergy Severe SEIZURES Verified 09/25/24 13:56 acetaminophen [From PERCOCET] Allergy Intermediate ITCHING Verified 09/25/24 13:56 carbamazepine [From TEGRETOL] Allergy Intermediate HALLUCINATI Verified 09/25/24 13:56 ONS lamotrigine [From LAMICTAL] Allergy Intermediate ITCHING Verified 09/25/24 13:56 metoclopramide [From REGLAN] Allergy Intermediate ITCHY Verified 09/25/24 13:56 oxycodone [From PERCOCET] Allergy Intermediate ITCHING Verified 09/25/24 13:56 SEAFOOD Allergy Severe ANAPHYLAXIS Uncoded 06/26/24 11:53 Home Medications ?Medication ?Instructions ?Recorded ?Confirmed ?Last Taken ?Type albuterol sulfate 90 mcg/actuation 2 inh inhalation Q4H PRN 06/26/24 09/25/24 Unknown History aerosol inhaler (Ventolin HFA) wheezing/sob atorvastatin 80 mg tablet 80 mg PO DAILY 06/26/24 09/25/24 09/25/24 History cholecalciferol (vitamin D3) 50 50 mcg PO DAILY 06/26/24 09/25/24 09/25/24 History mcg (2,000 unit) capsule darunavir 800 mg-cobicistat 150 mg 1 tab PO DAILY 06/26/24 09/25/24 09/25/24 History tablet (Prezcobix) empagliflozin 25 mg tablet 25 mg PO DAILY 06/26/24 09/25/24 09/25/24 History (Jardiance) famotidine 20 mg tablet 40 mg PO DAILY 06/26/24 09/25/24 09/25/24 History lacosamide 100 mg tablet (Vimpat) 100 mg PO BID 06/26/24 09/25/24 09/25/24 History levothyroxine 25 mcg tablet 25 mcg PO DAILY@0600 06/26/24 09/25/24 09/25/24 History pantoprazole 40 mg tablet,delayed 40 mg PO DAILY@0630 06/26/24 09/25/24 09/25/24 History release raltegravir 600 mg tablet 600 mg PO BID 06/26/24 09/25/24 09/25/24 History (Isentress HD) tenofovir disoproxil fumarate 300 300 mg PO DAILY 06/26/24 09/25/24 09/25/24 History mg tablet trazodone 150 mg tablet 150 mg PO BEDTIME 06/26/24 09/25/24 09/24/24 History semaglutide 1 mg/dose (4 mg/3 mL) 1 mg subcut TU 09/25/24 09/25/24 09/23/24 History subcutaneous pen injector (Ozempic) warfarin 10 mg tablet 10 mg PO DAILY 09/25/24 09/25/24 09/25/24 History Physical Exam 2 Vital Signs and Narrative: Vital Signs: Last Vital Signs Temp 98.2 F 09/25/24 19:23 Pulse 92 09/25/24 19:23 Resp 13 09/25/24 19:23 BP 106/78 09/25/24 19:23 Pulse Ox 97 09/25/24 19:23 O2 Del Method Room Air 09/25/24 19:23 BMI result Body Mass Index 26.2 General: AO X 3, no acute distress Resp: CTA bilateral, no accessory muscles used CVS: S1,S2,RRR GI: soft, non tender, non distended Neuro: motor grossly intact, alert Psych: appropriate affect, appropriate insight Results Labs 09/25/24 21:12 09/25/24 14:25 Labs: Laboratory Results - last 24 hr 09/25/24 09/25/24 14:25 21:20 MCV 90.5 MCH 29.0 MCHC 32.0 RDW 15.1 Plt Count 184 MPV 9.4 Immature Gran % (Auto) 0.3 Neut % (Auto) 62.9 Lymph % (Auto) 28.5 [place] % (Auto) 7.6 Eos % (Auto) 0.3 Baso % (Auto) 0.4 Lymph # (Auto) 2.0 [place] # (Auto) 0.5 Eos # (Auto) 0.0 Baso # (Auto) 0.0 Abs Immat Gran (auto) 0.02 Absolute Neuts (auto) 4.4 Absolute Nucleated RBC 0.000 Nucleated RBC % (auto) 0.0 PT 70.3 H D INR 6.0 H* D Anion Gap 8 L Estim Creat Clear Calc 71.0 Estimated GFR > 60 Random Glucose 189 H Lactic Acid 1.3 Calcium 8.8 Total Bilirubin 0.3 AST 35 ALT 29 Alkaline Phosphatase 128 H Troponin I High Sens < 2.7 Total Protein 8.9 H Albumin 4.0 Lipase 15 Influenza Type A (PCR) NEGATIVE Influenza Type B (PCR) NEGATIVE RSV RNA Qual (PCR) NEGATIVE SARS-CoV-2 RNA (RT-PCR) NEGATIVE 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, HLD, dm, hypothyroid, epileptic and non epileptic seizures, AAA, peripheral vascular disease presented with bright red blood per rectum Acute blood loss anemia due to lower GI bleed due to supratherapeutic warfarin and fondaparinux NPO, GI eval, monitor hemoglobin Not bleeding briskly so will hold off on INR reversal for now, hold warfarin and fondaparinux, monitor PT and PTT If hemoglobin drops significantly or worsening bleeding consider reversal Acute proctitis Empiric ceftriaxone and Flagyl Recurrent DVTs Currently supratherapeutic INR Hypothyroid Levothyroxine HIV Continue HAART Peripheral vascular disease Continue statin Diabetes Insulin sliding scale History of epileptic and nonepileptic seizures Continue Vimpat DVT prophylaxis-currently supratherapeutic INR Full code Patient is complex given recurrent DVTs and acute GI bleed therefore expected to require at least 2 midnights inpatient Quality Stroke Does the patient have a stroke diagnosis?: No VTE Prior VTE?: Yes VTE Risk Level:: Medical - moderate - high VTE Device Contraindication: Treatment Not Indicated VTE Drug Contraindication: N/A - Med Ordered
[2024-09-25 22:29] VITALS: BP 102/72; PULSE 79; RESP 18; TEMP 36.7; O2SAT 98
[2024-09-25] MEDS: 0.9 % Sodium Chloride Flush 3 ML SYRINGE IVFLUSH (23:50)
[2024-09-25] MEDS: metroNIDAZOLE/NS 500 MG/100 ML PIGGYBACK 100 MG IV (23:50)
[2024-09-25] MEDS: traZODone HCL 50 MG TABLET 150 MG PO (23:50)
[2024-09-26] VITALS (7 sets, daily range): BP systolic 100–114; BP diastolic 60–71; PULSE 65–74; RESP 12–18; TEMP 36.4–36.8; O2SAT 94–98; BMI 26.6
[2024-09-26] MEDS: Morphine Sulfate 2 MG/ML CARTRIDGE IVPUSH ×6 (00:10→23:00)
[2024-09-26 04:23] LABS: Hematocrit 39.3 % (42.0-52.0); Hemoglobin 12.6 g/dl (14.0-18.0); Mean Corpuscular HGB Conc 32.1 g/dl (31.0-36.0); Mean Corpuscular Hemoglobin 28.6 pg (27.0-33.0); Mean Corpuscular Volume 89.3 fL (80.0-98.0); Mean Platelet Volume 9.6 fL (9.4-12.4); Platelet Count 177 X10*3/uL (160-400)
[2024-09-26 04:36] LABS: Prothrombin Time 82.9 SEC (10.9-12.4)
[2024-09-26 04:48] LABS: Anion Gap 13 (12-20); Blood Urea Nitrogen 10 mg/dL (9-16); Calcium 8.5 mg/dL (8.4-10.2); Carbon Dioxide 20 mmol/L (22-29); Chloride 110 mmol/L (96-108); Creatinine Clr Calc Pharmacy 102.8; Estimated Glomerular Filt Rate > 60; Glucose Random 103 mg/dL (60-115); Sodium 139 mmol/L (135-145)
[2024-09-26 04:51] LABS: INTERNATIONAL NORM RATIO 7.1 (0.9-1.1); Partial Thromboplastin Time 60.7 SEC (26.0-36.8)
[2024-09-26] MEDS: Omeprazole 20 MG CAPSULE.DR PO (05:51)
[2024-09-26] MEDS: Levothyroxine Sodium 25 MCG TABLET PO (05:51)
[2024-09-26 07:18] LABS: Glucose, Whole Blood 103 mg/dL (60-115)
[2024-09-26] MEDS: 0.9 % Sodium Chloride Flush 3 ML SYRINGE IVFLUSH ×3 (08:51→21:18)
[2024-09-26] MEDS: Famotidine 20 MG TABLET 40 MG PO (08:52)
[2024-09-26] MEDS: Cholecalciferol (Vitamin D3) 25 MCG TABLET 50 MCG PO (08:52)
[2024-09-26] MEDS: Lacosamide 100 MG TABLET PO ×2 (08:52→21:10)
[2024-09-26] MEDS: Atorvastatin Calcium 80 MG TABLET PO (08:52)
[2024-09-26] MEDS: Tenofovir Disoproxil Fumarate 300 MG TABLET PO (10:17)
[2024-09-26] MEDS: metroNIDAZOLE/NS 500 MG/100 ML PIGGYBACK 100 MG IV ×2 (10:17→21:16)
--- NOTE | 2024-09-26 10:29 | HO.PM.IMPN ---
Subjective Subjective Date of Service: 09/26/24 Interval History: seen and examined reports last bloody BM yesterday evening reports b/l lower quad abd pain Review of Systems Negative except HPI/interval history. Physical Exam Vital Signs: Vital Signs: Last Vital Signs Temp 97.6 F 09/26/24 09:20 Pulse 66 09/26/24 09:20 Resp 16 09/26/24 09:20 BP 106/71 09/26/24 09:20 Pulse Ox 94 09/26/24 09:20 O2 Del Method Room Air 09/26/24 09:20 BMI result Body Mass Index 26.6 Const: Other: General - no acute distress, appears comfortable Cardiovascular - regular rate and rhythm, S1-S2 Lungs - normal respiratory effort, clear to auscultation bilaterally, no wheezing Abdomen - soft, nontender, no rebound or guarding Extremities - no edema bilaterally Neuro - awake and alert, no focal deficits Objective Data Active Medications Albuterol Sulfate (Albuterol Sulfate 90 Mcg 8 Gm Inhaler) 2 puff INHALE Q4H PRN PRN Reason: wheezing/sob Atorvastatin Calcium (Atorvastatin Calcium 80 Mg Tablet) 80 mg PO DAILY [facility] Last Admin: 09/26/24 08:52 Dose: 80 mg Documented By: MARINA Calcium Carbonate (Calcium Carbonate 750 Mg Tab.Chew) 750 mg PO Q4H PRN PRN Reason: Heartburn Ceftriaxone Sodium (Ceftriaxone Sodium 1 Gm Vial) 1 gm IVPUSH Q24H [facility] Dextrose (Dextrose 50 % 25 Gm/50 Ml Syringe) 25 gm IVPUSH Q15M PRN; Protocol PRN Reason: per Hypoglycemia Standing Ord. Famotidine (Famotidine 20 Mg Tablet) 40 mg PO DAILY [facility] Last Admin: 09/26/24 08:52 Dose: 40 mg Documented By: MARINA Glucose (Glucose Gel 15 Gm Gel..Gram.) 15 gm PO Q15M PRN; Protocol PRN Reason: per Hypoglycemia Standing Ord. Metronidazole (Flagyl) 500 mg in 100 mls @ 100 mls/hr IV Q12H [facility] Last Admin: 09/26/24 10:17 Dose: 100 mls/hr Documented By: ASHLEY Insulin Human Lispro (Insulin Lispro 100 Unit/Ml 3 Ml Vial) 0 unit SUBCUT QIDACHS [facility]; Protocol Last Admin: 09/26/24 07:12 Dose: Not Given Documented By: MARINA Non-Admin Reason: NPO Lacosamide (Lacosamide 100 Mg Tablet) 100 mg PO BID [facility] Last Admin: 09/26/24 08:52 Dose: 100 mg Documented By: MARINA Levothyroxine Sodium (Levothyroxine Sodium 25 Mcg Tablet) 25 mcg PO DAILY@0600 [facility] Last Admin: 09/26/24 05:51 Dose: 25 mcg Documented By: MESERET Magnesium Hydroxide (Milk Of Magnesia 30 Ml Oral.Susp) 30 ml PO DAILY PRN PRN Reason: Constipation Melatonin (Melatonin 3 Mg Tablet) 6 mg PO BEDTIME PRN PRN Reason: Insomnia Morphine Sulfate (Morphine Sulfate 2 Mg/Ml Cartridge) 2 mg IVPUSH Q4H PRN; Protocol PRN Reason: Pain, Severe (Pain Scale 7-10) Last Admin: 09/26/24 10:17 Dose: 2 mg Documented By: ASHLEY Non-Formulary Medication (Darunavir-Cobicistat [Prezcobix]) 1 tab PO DAILY [facility] Non-Formulary Medication (Raltegravir [Isentress Hd]) 600 mg PO BID [facility] Omeprazole (Omeprazole 20 Mg Capsule.Dr) 20 mg PO DAILY@0630 [facility] Last Admin: 09/26/24 05:51 Dose: 20 mg Documented By: MESERET Sodium Chloride (0.9 % Sodium Chloride Flush 3 Ml Syringe) [facility] Last Admin: 09/26/24 08:51 Dose: 3 ml Documented By: MARINA Tenofovir Disoproxil Fumarate (Tenofovir Disoproxil Fumarate 300 Mg Tablet) 300 mg PO DAILY [facility] Last Admin: 09/26/24 10:17 Dose: 300 mg Documented By: ASHLEY Trazodone HCl (Trazodone Hcl 50 Mg Tablet) 150 mg PO BEDTIME [facility] Last Admin: 09/25/24 23:50 Dose: 150 mg Documented By: EMIL Vitamin D (Cholecalciferol (Vitamin D3) 25 Mcg Tablet) 50 mcg PO DAILY [facility] Last Admin: 09/26/24 08:52 Dose: 50 mcg Documented By: MARINA Labs 09/26/24 04:04 09/26/24 04:04 Labs: Laboratory Results - last 24 hr 0109/25/24 09/26/24 14:25 21:20 04:04 MCV 90.5 89.3 MCH 29.0 28.6 MCHC 32.0 32.1 RDW 15.1 15.0 Plt Count 184 177 MPV 9.4 9.6 Immature Gran % (Auto) 0.3 Neut % (Auto) 62.9 Lymph % (Auto) 28.5 [place] % (Auto) 7.6 Eos % (Auto) 0.3 Baso % (Auto) 0.4 Lymph # (Auto) 2.0 [place] # (Auto) 0.5 Eos # (Auto) 0.0 Baso # (Auto) 0.0 Abs Immat Gran (auto) 0.02 Absolute Neuts (auto) 4.4 Absolute Nucleated RBC 0.000 0.000 Nucleated RBC % (auto) 0.0 0.0 PT 70.3 H D 82.9 H INR 6.0 H* D 7.1 H* APTT 60.7 H* D Anion Gap 8 L 13 Estim Creat Clear Calc 71.0 102.8 Estimated GFR > 60 > 60 POC Glucose Random Glucose 189 H 103 Lactic Acid 1.3 Calcium 8.8 8.5 Total Bilirubin 0.3 AST 35 ALT 29 Alkaline Phosphatase 128 H Troponin I High Sens < 2.7 Total Protein 8.9 H Albumin 4.0 Lipase 15 Influenza Type A (PCR) NEGATIVE Influenza Type B (PCR) NEGATIVE RSV RNA Qual (PCR) NEGATIVE SARS-CoV-2 RNA (RT-PCR) NEGATIVE 09/26/24 07:12 MCV MCH MCHC RDW Plt Count MPV Immature Gran % (Auto) Neut % (Auto) Lymph % (Auto) [place] % (Auto) Eos % (Auto) Baso % (Auto) Lymph # (Auto) [place] # (Auto) Eos # (Auto) Baso # (Auto) Abs Immat Gran (auto) Absolute Neuts (auto) Absolute Nucleated RBC Nucleated RBC % (auto) PT INR APTT Anion Gap Estim Creat Clear Calc Estimated GFR POC Glucose 103 Random Glucose Lactic Acid Calcium Total Bilirubin AST ALT Alkaline Phosphatase Troponin I High Sens Total Protein Albumin Lipase Influenza Type A (PCR) Influenza Type B (PCR) RSV RNA Qual (PCR) SARS-CoV-2 RNA (RT-PCR) 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, HLD, dm, hypothyroid, epileptic and non epileptic seizures, AAA, peripheral vascular disease presented with bright red blood per rectum Acute blood loss anemia due to lower GI bleed due to supratherapeutic warfarin and fondaparinux NPO, GI eval, monitor hemoglobin - stable after initial drop; will repeat one now GI consult continue IVF Acute proctitis Empiric ceftriaxone and Flagyl Recurrent DVTs Currently supratherapeutic INR Hypothyroid Levothyroxine HIV Continue HAART Peripheral vascular disease Continue statin Diabetes Insulin sliding scale History of epileptic and nonepileptic seizures Continue Vimpat DVT prophylaxis-currently supratherapeutic INR Full code Quality Stroke Does the patient have a stroke diagnosis?: No VTE Prior VTE?: Yes VTE Risk Level:: Medical - moderate - high VTE Device Contraindication: Treatment Not Indicated VTE Drug Contraindication: N/A - Med Ordered
[2024-09-26 11:04] LABS: Glucose, Whole Blood 110 mg/dL (60-115)
--- NOTE | 2024-09-26 11:19 | MHC.CM.PN ---
PT LIVES WITH S/O HAS NO SERVICES IS INDEPENDENT HAS OWN [facility] HOME NO SERVICES
--- NOTE | 2024-09-26 11:25 | P.CNGI_ITS ---
History of Present Illness Data of Consult Service Date: 09/26/24 Requesting physician: Hiro Maurer Primary Care Provider: ANA Gonzalez [facility] Reason for consult: Lower GI bleeding This is a 49-year-old gentleman with past medical history of HIV, hypothyroidism, AAA, peripheral vascular disease, recent history of left-sided femoral DVT on Coumadin who presented to the hospital for bright red bleeding per rectum. History was obtained from the patient as well as the chart. Was noted to have partial left femoral and popliteal vein thrombus during a recent hospitalization at [facility]. Had supratherapeutic INR even on the day of discharge from that hospital, and was advised to hold the Coumadin as per INR protocol, however not only did the patient continue the Coumadin, he also continued fondaparinux which was prescribed previous to this hospitalization. Reports that the rectal bleeding started almost a reasonable but the day of admission, had multiple bowel movements at prompted ER visit. Patient endorses anal receptive sex, but does not report any trauma, or foreign body insertion. Last colonoscopy was within the last 5 years at [facility] or [facility]. On arrival to the emergency room, he was noted to have stable vitals. Labs with initial hemoglobin of 13.7 with a mild drop to 12.5 on an [address] abdomen pelvis with bleed protocol was obtained that did show active hemorrhage in the lower rectal vault. CT scan also showed rectal wall thickening.. Since arrival, patient has not had any significant lower GI bleeding despite the CT scan findings, decision was made to hold the Coumadin Versed specially given stable vitals and minimal drop in H&H. This morning, INR is 7.1. APTT is also elevated keeping in line with his history of taking fondaparinux. Review of Systems 2 Review of Systems: Yes all other systems are reviewed and are negative PMFSH Past Medical History Medical History (Updated 09/26/24 @ 14:40 by Annika Esquivel MD) DVT (deep venous thrombosis) Seizure Popliteal artery aneurysm AAA (abdominal aortic aneurysm) Left sided abdominal pain COVID-19 Diabetes Seizure disorder HIV (human immunodeficiency virus infection) Surgical History Surgical History Status post cholecystectomy Status post laparoscopic appendectomy H/O fasciotomy S/P AAA (abdominal aortic aneurysm) repair S/P IVC filter Social History Social History Household Members: Spouse and Family Housing: House Do you presently have visiting nurse or other home services: No Alcohol intake: never Patient Tobacco Use Status: Former Tobacco user Advance Directives Date on File: 09/26/24 service: No Meds Allergies Allergy/AdvReac Type Severity Reaction Status Date / Time influenza virus vaccine, Allergy Severe GUILLIAN Verified 09/25/24 13:56 specific BARRE HX. [FLU VACCINE] tramadol [TRAMADOL] Allergy Severe SEIZURES Verified 09/25/24 13:56 acetaminophen [From PERCOCET] Allergy Intermediate ITCHING Verified 09/25/24 13:56 carbamazepine [From TEGRETOL] Allergy Intermediate HALLUCINATI Verified 09/25/24 13:56 ONS lamotrigine [From LAMICTAL] Allergy Intermediate ITCHING Verified 09/25/24 13:56 metoclopramide [From REGLAN] Allergy Intermediate ITCHY Verified 09/25/24 13:56 oxycodone [From PERCOCET] Allergy Intermediate ITCHING Verified 09/25/24 13:56 SEAFOOD Allergy Severe ANAPHYLAXIS Uncoded 06/26/24 11:53 Active Medications: Current Medications Albuterol Sulfate (Albuterol Sulfate 90 Mcg 8 Gm Inhaler) 2 puff INHALE Q4H PRN PRN Reason: wheezing/sob Atorvastatin Calcium (Atorvastatin Calcium 80 Mg Tablet) 80 mg PO DAILY [facility] Last Admin: 09/26/24 08:52 Dose: 80 mg Calcium Carbonate (Calcium Carbonate 750 Mg Tab.Chew) 750 mg PO Q4H PRN PRN Reason: Heartburn Ceftriaxone Sodium (Ceftriaxone Sodium 1 Gm Vial) 1 gm IVPUSH Q24H [facility] Dextrose (Dextrose 50 % 25 Gm/50 Ml Syringe) 25 gm IVPUSH Q15M PRN; Protocol PRN Reason: per Hypoglycemia Standing Ord. Famotidine (Famotidine 20 Mg Tablet) 40 mg PO DAILY [facility] Last Admin: 09/26/24 08:52 Dose: 40 mg Glucose (Glucose Gel 15 Gm Gel..Gram.) 15 gm PO Q15M PRN; Protocol PRN Reason: per Hypoglycemia Standing Ord. Metronidazole (Flagyl) 500 mg in 100 mls @ 100 mls/hr IV Q12H [facility] Last Admin: 09/26/24 10:17 Dose: 100 mls/hr Insulin Human Lispro (Insulin Lispro 100 Unit/Ml 3 Ml Vial) 0 unit SUBCUT QIDACHS [facility]; Protocol Last Admin: 09/26/24 07:12 Dose: Not Given Lacosamide (Lacosamide 100 Mg Tablet) 100 mg PO BID [facility] Last Admin: 09/26/24 08:52 Dose: 100 mg Levothyroxine Sodium (Levothyroxine Sodium 25 Mcg Tablet) 25 mcg PO DAILY@0600 [facility] Last Admin: 09/26/24 05:51 Dose: 25 mcg Magnesium Hydroxide (Milk Of Magnesia 30 Ml Oral.Susp) 30 ml PO DAILY PRN PRN Reason: Constipation Melatonin (Melatonin 3 Mg Tablet) 6 mg PO BEDTIME PRN PRN Reason: Insomnia Morphine Sulfate (Morphine Sulfate 2 Mg/Ml Cartridge) 2 mg IVPUSH Q4H PRN; Protocol PRN Reason: Pain, Severe (Pain Scale 7-10) Last Admin: 09/26/24 10:17 Dose: 2 mg Non-Formulary Medication (Darunavir-Cobicistat [Prezcobix]) 1 tab PO DAILY [facility] Non-Formulary Medication (Raltegravir [Isentress Hd]) 600 mg PO BID [facility] Omeprazole (Omeprazole 20 Mg Capsule.Dr) 20 mg PO DAILY@0630 [facility] Last Admin: 09/26/24 05:51 Dose: 20 mg Sodium Chloride (0.9 % Sodium Chloride Flush 3 Ml Syringe) [facility] Last Admin: 09/26/24 08:51 Dose: 3 ml Tenofovir Disoproxil Fumarate (Tenofovir Disoproxil Fumarate 300 Mg Tablet) 300 mg PO DAILY [facility] Last Admin: 09/26/24 10:17 Dose: 300 mg Trazodone HCl (Trazodone Hcl 50 Mg Tablet) 150 mg PO BEDTIME [facility] Last Admin: 09/25/24 23:50 Dose: 150 mg Vitamin D (Cholecalciferol (Vitamin D3) 25 Mcg Tablet) 50 mcg PO DAILY [facility] Last Admin: 09/26/24 08:52 Dose: 50 mcg Home Medications ?Medication ?Instructions ?Recorded ?Confirmed ?Last Taken ?Type albuterol sulfate 90 mcg/actuation 2 inh inhalation Q4H PRN 06/26/24 09/25/24 Unknown History aerosol inhaler (Ventolin HFA) wheezing/sob atorvastatin 80 mg tablet 80 mg PO DAILY 06/26/24 09/25/24 09/25/24 History cholecalciferol (vitamin D3) 50 50 mcg PO DAILY 06/26/24 09/25/24 09/25/24 History mcg (2,000 unit) capsule darunavir 800 mg-cobicistat 150 mg 1 tab PO DAILY 06/26/24 09/25/24 09/25/24 History tablet (Prezcobix) empagliflozin 25 mg tablet 25 mg PO DAILY 06/26/24 09/25/24 09/25/24 History (Jardiance) famotidine 20 mg tablet 40 mg PO DAILY 06/26/24 09/25/24 09/25/24 History lacosamide 100 mg tablet (Vimpat) 100 mg PO BID 06/26/24 09/25/24 09/25/24 History levothyroxine 25 mcg tablet 25 mcg PO DAILY@0600 06/26/24 09/25/24 09/25/24 History pantoprazole 40 mg tablet,delayed 40 mg PO DAILY@0630 06/26/24 09/25/24 09/25/24 History release raltegravir 600 mg tablet 600 mg PO BID 06/26/24 09/25/24 09/25/24 History (Isentress HD) tenofovir disoproxil fumarate 300 300 mg PO DAILY 06/26/24 09/25/24 09/25/24 History mg tablet trazodone 150 mg tablet 150 mg PO BEDTIME 06/26/24 09/25/24 09/24/24 History semaglutide 1 mg/dose (4 mg/3 mL) 1 mg subcut TU 09/25/24 09/25/24 09/23/24 History subcutaneous pen injector (Ozempic) warfarin 10 mg tablet 10 mg PO DAILY 09/25/24 09/25/24 09/25/24 History Physical Exam 2 Vital Signs: Vital Signs: Last Vital Signs Temp 97.6 F 09/26/24 09:20 Pulse 66 09/26/24 09:20 Resp 16 09/26/24 09:20 BP 106/71 09/26/24 09:20 Pulse Ox 94 09/26/24 09:20 O2 Del Method Room Air 09/26/24 09:20 BMI result Body Mass Index 26.6 No apparent distress Nonicteric Abdomen soft, nondistended Alert and oriented x3, normal gait Results Labs 09/26/24 11:08 09/26/24 04:04 Labs: Short CBC 09/25/24 09/25/24 09/26/24 Range/Units 14:25 21:12 04:04 WBC 7.0 5.0 (4.8-10.8) X10*3/uL Hgb 13.7 L D 12.5 L 12.6 L (14.0-18.0) g/dl Hct 42.8 D 38.5 L 39.3 L (42.0-52.0) % Plt Count 184 177 (160-400) X10*3/uL BMP 09/25/24 09/26/24 14:25 04:04 Sodium 138 139 Potassium 4.3 4.0 Chloride 111 H 110 H Carbon Dioxide 23 20 L BUN 9 10 Creatinine 1.23 0.85 Calcium 8.8 8.5 Liver Function 09/25/24 Range/Units 14:25 Total Bilirubin 0.3 (0.0-1.0) mg/dL AST 35 (5-37) U/L ALT 29 (0-40) U/L Alkaline Phosphatase 128 H (39-117) U/L Albumin 4.0 (3.5-5.0) g/dL Assessment and Plan (1) HIV (human immunodeficiency virus infection): Status: Acute (2) Lower GI bleeding: Status: Acute (3) Supratherapeutic INR: Status: Acute (4) DVT (deep venous thrombosis): Status: Acute (5) Proctitis: Status: Inactive Plan Differentials for rectal bleeding and proctitis include infectious, inflammatory or secondary to trauma. Anal ca also in DDx. Plan: - Check anal swab for gonorrhea, chlamydia, herpes simplex virus; and syphilis serology - Consider empirical tx with gonorrhea and chlamydia including LGV given underlying HIV. Can review with ID - Can have clears today and if CBC this evening remains stable, can advance diet - Check INR and CBC daily - Flex sig to be done once INR <2. - Since he has proximal DVT, ok to bridge with heparin drip when INR <2. To be held x 1h prior to procedure. Thank you for allowing me to participate in his care. Please do not hesitate to reach out for any questions or concerns. Procedures Date of Service Date of Service: 09/26/24
[2024-09-26 11:40] LABS: Hematocrit 42.2 % (42.0-52.0); Hemoglobin 13.7 g/dl (14.0-18.0)
[2024-09-26 16:06] LABS: Glucose, Whole Blood 114 mg/dL (60-115)
[2024-09-26 20:21] LABS: Glucose, Whole Blood 116 mg/dL (60-115)
[2024-09-26] MEDS: traZODone HCL 50 MG TABLET 150 MG PO (21:10)
[2024-09-26] MEDS: cefTRIAXone sodium 1 GM VIAL IVPUSH (21:10)
[2024-09-27] VITALS (8 sets, daily range): BP systolic 91–111; BP diastolic 56–71; PULSE 70–88; RESP 18–20; TEMP 36.2–36.7; O2SAT 94–98
--- NOTE | 2024-09-27 05:09 | PC.NURSE ---
Addendum entered by Elaine Lea RN 09/27/24 06:33: Message to publicity writer and Dr. Maurer received from lab this morning with critical INR 5.5 at 06:28. MD acknowledged. No new orders advised. Pt was ambulating this 06:00 hour steadily and continues to deny dizziness, vision changes, chest pain, sob, n/v, or other s/s of bleeding. Denies BM this shift. Pt reports abdominal pain is the same as it has been , denies that it is worse from previous assessment. Vitals obtained, stable. See trend for details. Original Note: Patient BP was soft 91/56 (map 68) on scheduled 04:00 vitals. Pt was drowsy though arousable to voice, mentation maintained A&Ox4. Denies dizziness or other symptoms. Pt had requested prn IV morphine at this time. Of note, the patient was woken up for these scheduled 04:00 vitals and had previously been observed by publicity writer sleeping in bed, without observed distress or discomfort on q2h purposeful rounding since the last dose morphine that was administered at 23:00. Covering Dr. Maurer was made aware of BP and patient's request for pain medication as no BP parameters were in place per OCT. written order to hold IV pain medication at this time; advised publicity writer to continue to non-pharmacological interventions/heat packs. This publicity writer discussed this with the patient with hospital sales representative present. Pt verbalized understanding of the plan and was agreeable to heat packs and warm blanket that were offered and applied.
[2024-09-27 06:03] LABS: Hematocrit 39.8 % (42.0-52.0); Hemoglobin 13.1 g/dl (14.0-18.0); Mean Corpuscular HGB Conc 32.9 g/dl (31.0-36.0); Mean Corpuscular Hemoglobin 29.2 pg (27.0-33.0); Mean Corpuscular Volume 88.6 fL (80.0-98.0); Mean Platelet Volume 9.3 fL (9.4-12.4); Platelet Count 165 X10*3/uL (160-400); Red Blood Count 4.49 X10*6/uL (4.60-5.80); Red Cell Distribution Width 14.9 % (11.0-16.0); White Blood Count 4.9 X10*3/uL (4.8-10.8)
[2024-09-27] MEDS: Levothyroxine Sodium 25 MCG TABLET PO (06:16)
[2024-09-27] MEDS: Omeprazole 20 MG CAPSULE.DR PO (06:16)
[2024-09-27 06:28] LABS: INTERNATIONAL NORM RATIO 5.5 (0.9-1.1)
[2024-09-27] MEDS: Lacosamide 100 MG TABLET PO ×2 (07:49→22:00)
[2024-09-27] MEDS: Morphine Sulfate 2 MG/ML CARTRIDGE IVPUSH ×4 (07:49→21:58)
[2024-09-27] MEDS: Cholecalciferol (Vitamin D3) 25 MCG TABLET 50 MCG PO (07:50)
[2024-09-27] MEDS: Famotidine 20 MG TABLET 40 MG PO (07:50)
[2024-09-27] MEDS: Atorvastatin Calcium 80 MG TABLET PO (07:50)
[2024-09-27] MEDS: Tenofovir Disoproxil Fumarate 300 MG TABLET PO (07:50)
[2024-09-27] MEDS: 0.9 % Sodium Chloride Flush 3 ML SYRINGE IVFLUSH ×3 (07:52→22:00)
[2024-09-27 07:59] LABS: Glucose, Whole Blood 128 mg/dL (60-115)
--- NOTE | 2024-09-27 08:23 | P.PNIM_ITS ---
Subjective Subjective Date of Service: 09/27/24 Interval History: seen and examined reports no further rectal bleeding still having b/l lower quand pain tolearting clears -- does not want to advance to full liquids yet Review of Systems Negative except HPI/interval history. Physical Exam 2 Vital Signs: Vital Signs: Last Vital Signs Temp 97.7 F 09/27/24 07:40 Pulse 78 09/27/24 07:40 Resp 18 09/27/24 07:40 BP 108/68 09/27/24 07:40 Pulse Ox 96 09/27/24 07:40 O2 Del Method Room Air 09/27/24 07:40 BMI result Body Mass Index 26.6 Const: Other: General - no acute distress, appears comfortable Cardiovascular - regular rate and rhythm, S1-S2 Lungs - normal respiratory effort, clear to auscultation bilaterally, no wheezing Abdomen - soft, nontender, no rebound or guarding Extremities - no edema bilaterally Neuro - awake and alert, no focal deficits Objective Data Active Medications Albuterol Sulfate (Albuterol Sulfate 90 Mcg 8 Gm Inhaler) 2 puff INHALE Q4H PRN PRN Reason: wheezing/sob Atorvastatin Calcium (Atorvastatin Calcium 80 Mg Tablet) 80 mg PO DAILY [facility] Last Admin: 09/27/24 07:50 Dose: 80 mg Documented By: PRIYANKA Calcium Carbonate (Calcium Carbonate 750 Mg Tab.Chew) 750 mg PO Q4H PRN PRN Reason: Heartburn Ceftriaxone Sodium (Ceftriaxone Sodium 1 Gm Vial) 1 gm IVPUSH Q24H [facility] Last Admin: 09/26/24 21:10 Dose: 1 gm Documented By: NIDHI Dextrose (Dextrose 50 % 25 Gm/50 Ml Syringe) 25 gm IVPUSH Q15M PRN; Protocol PRN Reason: per Hypoglycemia Standing Ord. Famotidine (Famotidine 20 Mg Tablet) 40 mg PO DAILY [facility] Last Admin: 09/27/24 07:50 Dose: 40 mg Documented By: PRIYANKA Glucose (Glucose Gel 15 Gm Gel..Gram.) 15 gm PO Q15M PRN; Protocol PRN Reason: per Hypoglycemia Standing Ord. Metronidazole (Flagyl) 500 mg in 100 mls @ 100 mls/hr IV Q12H [facility] Last Infusion: 09/26/24 22:16 Dose: Infused Documented By: EVANS Insulin Human Lispro (Insulin Lispro 100 Unit/Ml 3 Ml Vial) 0 unit SUBCUT QIDACHS [facility]; Protocol Last Admin: 09/27/24 08:04 Dose: Not Given Documented By: PRIYANKA Non-Admin Reason: No Insulin Coverage Lacosamide (Lacosamide 100 Mg Tablet) 100 mg PO BID [facility] Last Admin: 09/27/24 07:49 Dose: 100 mg Documented By: PRIYANKA Levothyroxine Sodium (Levothyroxine Sodium 25 Mcg Tablet) 25 mcg PO DAILY@0600 [facility] Last Admin: 09/27/24 06:16 Dose: 25 mcg Documented By: EVANS Magnesium Hydroxide (Milk Of Magnesia 30 Ml Oral.Susp) 30 ml PO DAILY PRN PRN Reason: Constipation Melatonin (Melatonin 3 Mg Tablet) 6 mg PO BEDTIME PRN PRN Reason: Insomnia Morphine Sulfate (Morphine Sulfate 2 Mg/Ml Cartridge) 2 mg IVPUSH Q4H PRN; Protocol PRN Reason: Pain, Severe (Pain Scale 7-10) Last Admin: 09/27/24 07:49 Dose: 2 mg Documented By: PRIYANKA Non-Formulary Medication (Darunavir-Cobicistat [Prezcobix]) 1 tab PO DAILY [facility] Non-Formulary Medication (Raltegravir [Isentress Hd]) 600 mg PO BID [facility] Omeprazole (Omeprazole 20 Mg Capsule.Dr) 20 mg PO DAILY@0630 [facility] Last Admin: 09/27/24 06:16 Dose: 20 mg Documented By: EVANS Sodium Chloride (0.9 % Sodium Chloride Flush 3 Ml Syringe) 3 ml IVFLUSH [facility] Last Admin: 09/27/24 07:52 Dose: 3 ml Documented By: PRIYANKA Tenofovir Disoproxil Fumarate (Tenofovir Disoproxil Fumarate 300 Mg Tablet) 300 mg PO DAILY [facility] Last Admin: 09/27/24 07:50 Dose: 300 mg Documented By: PRIYANKA Trazodone HCl (Trazodone Hcl 50 Mg Tablet) 150 mg PO BEDTIME [facility] Last Admin: 09/26/24 21:10 Dose: 150 mg Documented By: NIDHI Vitamin D (Cholecalciferol (Vitamin D3) 25 Mcg Tablet) 50 mcg PO DAILY [facility] Last Admin: 09/27/24 07:50 Dose: 50 mcg Documented By: PRIYANKA Labs 09/27/24 05:39 09/26/24 04:04 Labs: Laboratory Results - last 24 hr 09/26/24 09/26/24 09/26/24 11:00 16:00 20:17 MCV MCH MCHC RDW Plt Count MPV Absolute Nucleated RBC Nucleated RBC % (auto) PT INR POC Glucose 110 114 116 H 09/27/24 09/27/24 05:39 07:33 MCV 88.6 MCH 29.2 MCHC 32.9 RDW 14.9 Plt Count 165 MPV 9.3 L Absolute Nucleated RBC 0.000 Nucleated RBC % (auto) 0.0 PT 64.0 H D INR 5.5 H* POC Glucose 128 H Microbiology Microbiology Results: Microbiology 09/25/24 21:30 Blood Culture - Preliminary Blood - Venous No growth after 24 hours. 09/25/24 21:20 Blood Culture - Preliminary Blood - Venous No growth after 24 hours. 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, HLD, dm, hypothyroid, epileptic and non epileptic seizures, AAA, peripheral vascular disease presented with bright red blood per rectum Acute blood loss anemia due to lower GI bleed due to supratherapeutic warfarin and fondaparinux continue clear GI appreicated -- plan for scope once INR less than 2 (okay to bridge with heparin if needed prior to procedure) Acute proctitis Empiric ceftriaxone and Flagyl Recurrent DVTs Currently supratherapeutic INR Hypothyroid Levothyroxine HIV Continue HAART Peripheral vascular disease Continue statin Diabetes Insulin sliding scale History of epileptic and nonepileptic seizures Continue Vimpat DVT prophylaxis-currently supratherapeutic INR Full code Quality Stroke Does the patient have a stroke diagnosis?: No VTE Prior VTE?: Yes VTE Risk Level:: Medical - moderate - high VTE Device Contraindication: Treatment Not Indicated VTE Drug Contraindication: N/A - Med Ordered
[2024-09-27] MEDS: metroNIDAZOLE/NS 500 MG/100 ML PIGGYBACK 100 MG IV ×2 (10:33→22:02)
[2024-09-27 11:57] LABS: Glucose, Whole Blood 104 mg/dL (60-115)
[2024-09-27 16:07] LABS: Glucose, Whole Blood 159 mg/dL (60-115)
[2024-09-27] MEDS: Insulin Lispro 100 UNIT/ML 3 ML VIAL SUBCUT (16:52)
[2024-09-27 20:27] LABS: Glucose, Whole Blood 113 mg/dL (60-115)
[2024-09-27] MEDS: traZODone HCL 50 MG TABLET 150 MG PO (22:00)
[2024-09-27] MEDS: cefTRIAXone sodium 1 GM VIAL IVPUSH (22:00)
[2024-09-28 01:20] VITALS: RESP 16
[2024-09-28 03:54] VITALS: BP 112/56; PULSE 74; RESP 17; TEMP 36.7; O2SAT 97
[2024-09-28 04:39] VITALS: RESP 18
[2024-09-28] MEDS: Morphine Sulfate 2 MG/ML CARTRIDGE IVPUSH (04:39)
[2024-09-28] MEDS: Omeprazole 20 MG CAPSULE.DR PO (05:28)
[2024-09-28] MEDS: Levothyroxine Sodium 25 MCG TABLET PO (05:28)
[2024-09-28 05:54] LABS: Hematocrit 41.1 % (42.0-52.0); Hemoglobin 13.5 g/dl (14.0-18.0); Mean Corpuscular HGB Conc 32.8 g/dl (31.0-36.0); Mean Corpuscular Hemoglobin 29.1 pg (27.0-33.0); Mean Corpuscular Volume 88.6 fL (80.0-98.0); Mean Platelet Volume 9.3 fL (9.4-12.4); Platelet Count 159 X10*3/uL (160-400); Red Blood Count 4.64 X10*6/uL (4.60-5.80); White Blood Count 4.6 X10*3/uL (4.8-10.8)
[2024-09-28 06:00] LABS: INTERNATIONAL NORM RATIO 2.8 (0.9-1.1); Prothrombin Time 32.6 SEC (10.9-12.4)
[2024-09-28 07:30] LABS: Glucose, Whole Blood 97 mg/dL (60-115)
[2024-09-28 08:00] VITALS: BP 100/59; PULSE 71; RESP 18; TEMP 37.5; O2SAT 94
--- NOTE | 2024-09-28 09:14 | P.PNIM_ITS ---
Subjective Subjective Date of Service: 09/28/24 Interval History: no acute complaints, no further bleeding Physical Exam 2 Vital Signs: Vital Signs: Last Vital Signs Temp 99.5 F 09/28/24 08:00 Pulse 71 09/28/24 08:00 Resp 18 09/28/24 08:00 BP 100/59 L 09/28/24 08:00 Pulse Ox 94 09/28/24 08:00 O2 Del Method Room Air 09/28/24 08:00 BMI result Body Mass Index 26.6 General: AO X 3, no acute distress Resp: CTA bilateral, no accessory muscles used CVS: S1,S2,RRR GI: soft, non tender, non distended Neuro: motor grossly intact, alert Psych: appropriate affect, appropriate insight Objective Data Active Medications Albuterol Sulfate (Albuterol Sulfate 90 Mcg 8 Gm Inhaler) 2 puff INHALE Q4H PRN PRN Reason: wheezing/sob Atorvastatin Calcium (Atorvastatin Calcium 80 Mg Tablet) 80 mg PO DAILY [facility] Last Admin: 09/27/24 07:50 Dose: 80 mg Documented By: PRIYANKA Calcium Carbonate (Calcium Carbonate 750 Mg Tab.Chew) 750 mg PO Q4H PRN PRN Reason: Heartburn Ceftriaxone Sodium (Ceftriaxone Sodium 1 Gm Vial) 1 gm IVPUSH Q24H [facility] Last Admin: 09/27/24 22:00 Dose: 1 gm Documented By: EVANS Dextrose (Dextrose 50 % 25 Gm/50 Ml Syringe) 25 gm IVPUSH Q15M PRN; Protocol PRN Reason: per Hypoglycemia Standing Ord. Famotidine (Famotidine 20 Mg Tablet) 40 mg PO DAILY [facility] Last Admin: 09/27/24 07:50 Dose: 40 mg Documented By: PRIYANKA Glucose (Glucose Gel 15 Gm Gel..Gram.) 15 gm PO Q15M PRN; Protocol PRN Reason: per Hypoglycemia Standing Ord. Hydromorphone HCl (Hydromorphone Hcl 2 Mg Tablet) 1 mg PO Q4H PRN PRN Reason: Pain, Severe (Pain Scale 7-10) Metronidazole (Flagyl) 500 mg in 100 mls @ 100 mls/hr IV Q12H [facility] Last Infusion: 09/27/24 23:02 Dose: Infused Documented By: EVANS Insulin Human Lispro (Insulin Lispro 100 Unit/Ml 3 Ml Vial) 0 unit SUBCUT QIDACHS [facility]; Protocol Last Admin: 09/28/24 08:02 Dose: Not Given Documented By: PRIYANKA Non-Admin Reason: No Insulin Coverage Lacosamide (Lacosamide 100 Mg Tablet) 100 mg PO BID [facility] Last Admin: 09/27/24 22:00 Dose: 100 mg Documented By: EVANS Levothyroxine Sodium (Levothyroxine Sodium 25 Mcg Tablet) 25 mcg PO DAILY@0600 [facility] Last Admin: 09/28/24 05:28 Dose: 25 mcg Documented By: EVANS Magnesium Hydroxide (Milk Of Magnesia 30 Ml Oral.Susp) 30 ml PO DAILY PRN PRN Reason: Constipation Melatonin (Melatonin 3 Mg Tablet) 6 mg PO BEDTIME PRN PRN Reason: Insomnia Morphine Sulfate (Morphine Sulfate Er 15 Mg Tablet.Er) 15 mg PO Q12H [facility] Non-Formulary Medication (Darunavir-Cobicistat [Prezcobix]) 1 tab PO DAILY [facility] Non-Formulary Medication (Raltegravir [Isentress Hd]) 600 mg PO BID [facility] Omeprazole (Omeprazole 20 Mg Capsule.Dr) 20 mg PO DAILY@0630 [facility] Last Admin: 09/28/24 05:28 Dose: 20 mg Documented By: EVANS Sodium Chloride (0.9 % Sodium Chloride Flush 3 Ml Syringe) 3 ml IVFLUSH [facility] Last Admin: 09/27/24 22:00 Dose: 3 ml Documented By: EVANS Tenofovir Disoproxil Fumarate (Tenofovir Disoproxil Fumarate 300 Mg Tablet) 300 mg PO DAILY [facility] Last Admin: 09/27/24 07:50 Dose: 300 mg Documented By: PRIYANKA Trazodone HCl (Trazodone Hcl 50 Mg Tablet) 150 mg PO BEDTIME [facility] Last Admin: 09/27/24 22:00 Dose: 150 mg Documented By: EVANS Vitamin D (Cholecalciferol (Vitamin D3) 25 Mcg Tablet) 50 mcg PO DAILY [facility] Last Admin: 09/27/24 07:50 Dose: 50 mcg Documented By: PRIYANKA Labs 09/28/24 05:16 09/26/24 04:04 Labs: Laboratory Results - last 24 hr 09/27/24 09/27/24 09/27/24 11:41 16:04 20:24 MCV MCH MCHC RDW Plt Count MPV Absolute Nucleated RBC Nucleated RBC % (auto) PT INR POC Glucose 104 159 H 113 09/28/24 09/28/24 05:16 07:26 MCV 88.6 MCH 29.1 MCHC 32.8 RDW 15.0 Plt Count 159 L MPV 9.3 L Absolute Nucleated RBC 0.000 Nucleated RBC % (auto) 0.0 PT 32.6 H D INR 2.8 H D POC Glucose 97 Microbiology Microbiology Results: Microbiology 09/25/24 21:30 Blood Culture - Preliminary Blood - Venous No growth after 48 hours. 09/25/24 21:20 Blood Culture - Preliminary Blood - Venous No growth after 48 hours. 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, HLD, dm, hypothyroid, epileptic and non epileptic seizures, AAA, peripheral vascular disease presented with bright red blood per rectum Acute blood loss anemia due to lower GI bleed due to supratherapeutic warfarin and fondaparinux GI appreicated -- plan for scope once INR less than 2 (okay to bridge with heparin if needed prior to procedure) hgb stable, no further bleeding, warfarin and fonaparinux on hold Acute proctitis Empiric ceftriaxone and Flagyl Recurrent DVTs Currently therapeutic INR Hypothyroid Levothyroxine HIV Continue HAART Peripheral vascular disease Continue statin Diabetes Insulin sliding scale History of epileptic and nonepileptic seizures Continue Vimpat DVT prophylaxis-currently therapeutic INR Full code reason for continued hospitalization:plan for scope Quality Stroke Does the patient have a stroke diagnosis?: No VTE Prior VTE?: Yes VTE Risk Level:: Medical - moderate - high VTE Device Contraindication: Treatment Not Indicated VTE Drug Contraindication: N/A - Med Ordered
[2024-09-28] MEDS: Famotidine 20 MG TABLET 40 MG PO (09:29)
[2024-09-28] MEDS: Atorvastatin Calcium 80 MG TABLET PO (09:29)
[2024-09-28] MEDS: Tenofovir Disoproxil Fumarate 300 MG TABLET PO (09:29)
[2024-09-28] MEDS: metroNIDAZOLE/NS 500 MG/100 ML PIGGYBACK 100 MG IV ×2 (09:29→21:06)
[2024-09-28] MEDS: Morphine Sulfate ER 15 MG TABLET.ER PO ×2 (09:29→21:01)
[2024-09-28] MEDS: Cholecalciferol (Vitamin D3) 25 MCG TABLET 50 MCG PO (09:29)
[2024-09-28] MEDS: Lacosamide 100 MG TABLET PO ×2 (09:29→21:01)
[2024-09-28 11:44] LABS: Glucose, Whole Blood 124 mg/dL (60-115)
[2024-09-28 15:17] VITALS: BP 108/69; PULSE 77; RESP 18; TEMP 37.2; O2SAT 94
[2024-09-28] MEDS: HYDROmorphone HCl 2 MG TABLET 1 MG PO (16:17)
[2024-09-28 16:46] LABS: Glucose, Whole Blood 149 mg/dL (60-115)
--- NOTE | 2024-09-28 18:25 | HE.PHANOTE ---
HAART REGIMEN Patient is taking tenofovir 300 mg daily, prezcobix 800/150 daily, and isentress HD 600 mg BID. We have all of the medications or components of medications expect for Isentress HD. We currently have on formulary Isentress 400 mg and these tablets can not be split. The patient said he would have someone bring in the medication for him but we have not received it yet. I sent a message to Dr. Maurer asking if we could change the isentress to 400 mg bid for now and put in an ID consult and he agreed. Will follow up again with patient/ID in the morning.
[2024-09-28 19:27] VITALS: BP 100/64; PULSE 81; RESP 16; TEMP 36.6; O2SAT 99
[2024-09-28 19:59] LABS: Glucose, Whole Blood 97 mg/dL (60-115)
[2024-09-28] MEDS: traZODone HCL 50 MG TABLET 150 MG PO (21:01)
[2024-09-28] MEDS: Raltegravir Potassium 400 MG TABLET PO (21:01)
[2024-09-28] MEDS: cefTRIAXone sodium 1 GM VIAL IVPUSH (21:06)
[2024-09-29] MEDS: 0.9 % Sodium Chloride Flush 3 ML SYRINGE IVFLUSH ×4 (00:26→19:57)
[2024-09-29 03:28] VITALS: BP 114/67; PULSE 66; RESP 18; TEMP 37.1; O2SAT 96
[2024-09-29] MEDS: Omeprazole 20 MG CAPSULE.DR PO (06:14)
[2024-09-29] MEDS: Levothyroxine Sodium 25 MCG TABLET PO (06:14)
[2024-09-29 06:15] LABS: INTERNATIONAL NORM RATIO 1.8 (0.9-1.1); Prothrombin Time 21.4 SEC (10.9-12.4)
[2024-09-29 06:17] LABS: Anion Gap 11 (12-20); Blood Urea Nitrogen 9 mg/dL (9-16); Calcium 8.8 mg/dL (8.4-10.2); Carbon Dioxide 23 mmol/L (22-29); Chloride 107 mmol/L (96-108); Creatinine Clr Calc Pharmacy 91.9; Estimated Glomerular Filt Rate > 60; Glucose Random 94 mg/dL (60-115); Sodium 137 mmol/L (135-145)
[2024-09-29 06:19] LABS: Hematocrit 42.5 % (42.0-52.0); Hemoglobin 13.7 g/dl (14.0-18.0); Mean Corpuscular HGB Conc 32.2 g/dl (31.0-36.0); Mean Corpuscular Hemoglobin 28.7 pg (27.0-33.0); Mean Corpuscular Volume 89.1 fL (80.0-98.0); Mean Platelet Volume 9.8 fL (9.4-12.4); Platelet Count 167 X10*3/uL (160-400); Red Blood Count 4.77 X10*6/uL (4.60-5.80); Red Cell Distribution Width 14.9 % (11.0-16.0); White Blood Count 4.8 X10*3/uL (4.8-10.8)
[2024-09-29] MEDS: HYDROmorphone HCl 2 MG TABLET 1 MG PO ×3 (06:46→16:56)
[2024-09-29 07:28] VITALS: BP 113/69; PULSE 68; RESP 16; TEMP 36.4; O2SAT 95
[2024-09-29 07:37] LABS: Glucose, Whole Blood 133 mg/dL (60-115)
[2024-09-29] MEDS: Raltegravir Potassium 400 MG TABLET PO (09:25)
[2024-09-29] MEDS: metroNIDAZOLE 500 MG TABLET PO ×2 (09:25→19:52)
[2024-09-29] MEDS: Famotidine 20 MG TABLET 40 MG PO (09:25)
[2024-09-29] MEDS: Darunavir Ethanolate 800 MG TABLET PO (09:25)
--- NOTE | 2024-09-29 09:25 | P.PNIM_ITS ---
Subjective Subjective Date of Service: 09/29/24 Interval History: No further bleeding Physical Exam 2 Vital Signs: Vital Signs: Last Vital Signs Temp 97.6 F 09/29/24 07:28 Pulse 68 09/29/24 07:28 Resp 16 09/29/24 07:28 BP 113/69 09/29/24 07:28 Pulse Ox 95 09/29/24 07:28 O2 Del Method Room Air 09/29/24 07:28 BMI result Body Mass Index 26.6 General: AO X 3, no acute distress Resp: CTA bilateral, no accessory muscles used CVS: S1,S2,RRR GI: soft, non tender, non distended Neuro: motor grossly intact, alert Psych: appropriate affect, appropriate insight Objective Data Active Medications Albuterol Sulfate (Albuterol Sulfate 90 Mcg 8 Gm Inhaler) 2 puff INHALE Q4H PRN PRN Reason: wheezing/sob Atorvastatin Calcium (Atorvastatin Calcium 80 Mg Tablet) 80 mg PO DAILY [facility] Last Admin: 09/28/24 09:29 Dose: 80 mg Documented By: PRIYANKA Calcium Carbonate (Calcium Carbonate 750 Mg Tab.Chew) 750 mg PO Q4H PRN PRN Reason: Heartburn Ceftriaxone Sodium (Ceftriaxone Sodium 1 Gm Vial) 1 gm IVPUSH Q24H [facility] Last Admin: 09/28/24 21:06 Dose: 1 gm Documented By: MARILYN Cobicistat (Cobicistat 150 Mg Tablet) 150 mg PO DAILY [facility] Darunavir (Darunavir Ethanolate 800 Mg Tablet) 800 mg PO DAILY [facility] Last Admin: 09/28/24 21:03 Dose: Not Given Documented By: MARILYN Non-Admin Reason: pt refused , per pt he took this med this AM Dextrose (Dextrose 50 % 25 Gm/50 Ml Syringe) 25 gm IVPUSH Q15M PRN; Protocol PRN Reason: per Hypoglycemia Standing Ord. Famotidine (Famotidine 20 Mg Tablet) 40 mg PO DAILY [facility] Last Admin: 09/28/24 09:29 Dose: 40 mg Documented By: PRIYANKA Glucose (Glucose Gel 15 Gm Gel..Gram.) 15 gm PO Q15M PRN; Protocol PRN Reason: per Hypoglycemia Standing Ord. Hydromorphone HCl (Hydromorphone Hcl 2 Mg Tablet) 1 mg PO Q4H PRN PRN Reason: Pain, Severe (Pain Scale 7-10) Last Admin: 09/29/24 06:46 Dose: 1 mg Documented By: KADY Insulin Human Lispro (Insulin Lispro 100 Unit/Ml 3 Ml Vial) 0 unit SUBCUT QIDACHS [facility]; Protocol Last Admin: 09/29/24 07:39 Dose: Not Given Documented By: JUDAH Non-Admin Reason: No Insulin Coverage Lacosamide (Lacosamide 100 Mg Tablet) 100 mg PO BID [facility] Last Admin: 09/28/24 21:01 Dose: 100 mg Documented By: MARILYN Levothyroxine Sodium (Levothyroxine Sodium 25 Mcg Tablet) 25 mcg PO DAILY@0600 [facility] Last Admin: 09/29/24 06:14 Dose: 25 mcg Documented By: KADY Magnesium Hydroxide (Milk Of Magnesia 30 Ml Oral.Susp) 30 ml PO DAILY PRN PRN Reason: Constipation Melatonin (Melatonin 3 Mg Tablet) 6 mg PO BEDTIME PRN PRN Reason: Insomnia Metronidazole (Metronidazole 500 Mg Tablet) 500 mg PO Q12H [facility] Morphine Sulfate (Morphine Sulfate Er 15 Mg Tablet.Er) 15 mg PO Q12H [facility] Last Admin: 09/28/24 21:01 Dose: 15 mg Documented By: MARILYN Omeprazole (Omeprazole 20 Mg Capsule.Dr) 20 mg PO DAILY@0630 [facility] Last Admin: 09/29/24 06:14 Dose: 20 mg Documented By: KADY Raltegravir (Raltegravir Potassium 400 Mg Tablet) 400 mg PO BID [facility] Last Admin: 09/28/24 21:01 Dose: 400 mg Documented By: MARILYN Sodium Chloride (0.9 % Sodium Chloride Flush 3 Ml Syringe) 3 ml IVFLUSH QSHIFT [facility] Last Admin: 09/29/24 09:23 Dose: 3 ml Documented By: JUDAH Tenofovir Disoproxil Fumarate (Tenofovir Disoproxil Fumarate 300 Mg Tablet) 300 mg PO DAILY [facility] Last Admin: 09/28/24 09:29 Dose: 300 mg Documented By: PRIYANKA Trazodone HCl (Trazodone Hcl 50 Mg Tablet) 150 mg PO BEDTIME [facility] Last Admin: 09/28/24 21:01 Dose: 150 mg Documented By: MARILYN Vitamin D (Cholecalciferol (Vitamin D3) 25 Mcg Tablet) 50 mcg PO DAILY [facility] Last Admin: 09/28/24 09:29 Dose: 50 mcg Documented By: PRIYANKA Labs 09/29/24 05:13 09/29/24 05:13 Labs: Laboratory Results - last 24 hr 09/28/24 09/28/24 09/28/24 11:37 16:42 19:29 MCV MCH MCHC RDW Plt Count MPV Absolute Nucleated RBC Nucleated RBC % (auto) PT INR Anion Gap Estim Creat Clear Calc Estimated GFR POC Glucose 124 H 149 H 97 Random Glucose Calcium 09/29/24 09/29/24 05:13 07:32 MCV 89.1 MCH 28.7 MCHC 32.2 RDW 14.9 Plt Count 167 MPV 9.8 Absolute Nucleated RBC 0.000 Nucleated RBC % (auto) 0.0 PT 21.4 H D INR 1.8 H Anion Gap 11 L Estim Creat Clear Calc 91.9 Estimated GFR > 60 POC Glucose 133 H Random Glucose 94 Calcium 8.8 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, HLD, dm, hypothyroid, epileptic and non epileptic seizures, AAA, peripheral vascular disease presented with bright red blood per rectum Acute blood loss anemia due to lower GI bleed due to supratherapeutic warfarin and fondaparinux GI appreicated -- plan for scope tomorrow 09/30/24 hgb stable, no further bleeding, warfarin and fonaparinux on hold Acute proctitis Empiric ceftriaxone and Flagyl Recurrent DVTs Currently therapeutic INR, we will bridge with fondaparinux after scope Hypothyroid Levothyroxine HIV Continue HAART Peripheral vascular disease Continue statin Diabetes Insulin sliding scale History of epileptic and nonepileptic seizures Continue Vimpat DVT prophylaxis-currently therapeutic INR Full code reason for continued hospitalization:plan for scope Quality Stroke Does the patient have a stroke diagnosis?: No VTE Prior VTE?: Yes VTE Risk Level:: Medical - moderate - high VTE Device Contraindication: Treatment Not Indicated VTE Drug Contraindication: N/A - Med Ordered
[2024-09-29] MEDS: Tenofovir Disoproxil Fumarate 300 MG TABLET PO (09:26)
[2024-09-29] MEDS: Morphine Sulfate ER 15 MG TABLET.ER PO ×2 (09:26→19:49)
[2024-09-29] MEDS: Lacosamide 100 MG TABLET PO ×2 (09:26→19:53)
[2024-09-29] MEDS: Cholecalciferol (Vitamin D3) 25 MCG TABLET 50 MCG PO (09:26)
[2024-09-29] MEDS: Atorvastatin Calcium 80 MG TABLET PO (09:27)
[2024-09-29 11:23] LABS: Glucose, Whole Blood 103 mg/dL (60-115)
[2024-09-29] MEDS: ondansetron HCL 4 MG/2 ML VIAL IVPUSH (12:52)
[2024-09-29 15:45] VITALS: BP 108/69; PULSE 77; RESP 18; TEMP 36.9; O2SAT 96
[2024-09-29 15:55] LABS: Glucose, Whole Blood 102 mg/dL (60-115)
--- NOTE | 2024-09-29 16:17 | MHC.CM.PN ---
per rounds pt not medically ready for dc pt to have scope today
[2024-09-29] MEDS: COBICISTAT 150 MG PO (17:43)
[2024-09-29] MEDS: Sodium Phosphate,Mono-Dibasic 133 ML ENEMA PR (17:51)
[2024-09-29 19:24] VITALS: BP 109/64; PULSE 76; RESP 18; TEMP 36.6; O2SAT 96
[2024-09-29] MEDS: traZODone HCL 50 MG TABLET 150 MG PO (19:53)
[2024-09-29 20:23] LABS: Glucose, Whole Blood 125 mg/dL (60-115)
[2024-09-29] MEDS: cefTRIAXone sodium 1 GM VIAL IVPUSH (21:36)
[2024-09-30] VITALS (10 sets, daily range): BP systolic 92–109; BP diastolic 58–73; PULSE 63–86; RESP 15–20; TEMP 36.2–37; O2SAT 93–98
[2024-09-30 07:05] LABS: INTERNATIONAL NORM RATIO 1.4 (0.9-1.1); Prothrombin Time 16.2 SEC (10.9-12.4)
[2024-09-30 07:49] LABS: Glucose, Whole Blood 103 mg/dL (60-115)
[2024-09-30] MEDS: Tenofovir Disoproxil Fumarate 300 MG TABLET PO (08:19)
[2024-09-30] MEDS: COBICISTAT 150 MG PO (08:20)
[2024-09-30] MEDS: metroNIDAZOLE 500 MG TABLET PO (08:20)
[2024-09-30] MEDS: Darunavir Ethanolate 800 MG TABLET PO (08:20)
[2024-09-30] MEDS: Raltegravir Potassium 400 MG TABLET PO (08:20)
[2024-09-30] MEDS: Morphine Sulfate ER 15 MG TABLET.ER PO (08:21)
[2024-09-30] MEDS: Cholecalciferol (Vitamin D3) 25 MCG TABLET 50 MCG PO (08:21)
[2024-09-30] MEDS: Atorvastatin Calcium 80 MG TABLET PO (08:21)
[2024-09-30] MEDS: Famotidine 20 MG TABLET 40 MG PO (08:21)
[2024-09-30] MEDS: Lacosamide 100 MG TABLET PO (08:22)
--- NOTE | 2024-09-30 08:32 | P.PNIM_ITS ---
Subjective Subjective Date of Service: 09/30/24 Interval History: No further bleeding Physical Exam 2 Vital Signs: Vital Signs: Last Vital Signs Temp 97.1 F 09/30/24 07:40 Pulse 86 09/30/24 07:40 Resp 16 09/30/24 07:40 BP 97/64 09/30/24 07:40 Pulse Ox 94 09/30/24 07:40 O2 Del Method Room Air 09/30/24 07:40 BMI result Body Mass Index 26.6 General: AO X 3, no acute distress Resp: CTA bilateral, no accessory muscles used CVS: S1,S2,RRR GI: soft, non tender, non distended Neuro: motor grossly intact, alert Psych: appropriate affect, appropriate insight Objective Data Active Medications Albuterol Sulfate (Albuterol Sulfate 90 Mcg 8 Gm Inhaler) 2 puff INHALE Q4H PRN PRN Reason: wheezing/sob Atorvastatin Calcium (Atorvastatin Calcium 80 Mg Tablet) 80 mg PO DAILY [facility] Last Admin: 09/30/24 08:21 Dose: 80 mg Documented By: JUDAH Calcium Carbonate (Calcium Carbonate 750 Mg Tab.Chew) 750 mg PO Q4H PRN PRN Reason: Heartburn Ceftriaxone Sodium (Ceftriaxone Sodium 1 Gm Vial) 1 gm IVPUSH Q24H [facility] Last Admin: 09/29/24 21:36 Dose: 1 gm Documented By: SIERRA Cobicistat (Cobicistat 150 Mg Tablet) 150 mg PO DAILY [facility] Last Admin: 09/30/24 08:20 Dose: 150 mg Documented By: JUDAH Darunavir (Darunavir Ethanolate 800 Mg Tablet) 800 mg PO DAILY [facility] Last Admin: 09/30/24 08:20 Dose: 800 mg Documented By: JUDAH Dextrose (Dextrose 50 % 25 Gm/50 Ml Syringe) 25 gm IVPUSH Q15M PRN; Protocol PRN Reason: per Hypoglycemia Standing Ord. Famotidine (Famotidine 20 Mg Tablet) 40 mg PO DAILY [facility] Last Admin: 09/30/24 08:21 Dose: 40 mg Documented By: JUDAH Glucose (Glucose Gel 15 Gm Gel..Gram.) 15 gm PO Q15M PRN; Protocol PRN Reason: per Hypoglycemia Standing Ord. Hydromorphone HCl (Hydromorphone Hcl 2 Mg Tablet) 1 mg PO Q4H PRN PRN Reason: Pain, Severe (Pain Scale 7-10) Last Admin: 09/29/24 16:56 Dose: 1 mg Documented By: JUDAH Insulin Human Lispro (Insulin Lispro 100 Unit/Ml 3 Ml Vial) 0 unit SUBCUT QIDACHS [facility]; Protocol Last Admin: 09/30/24 08:19 Dose: Not Given Lacosamide (Lacosamide 100 Mg Tablet) 100 mg PO BID [facility] Last Admin: 09/30/24 08:22 Dose: 100 mg Documented By: JUDAH Levothyroxine Sodium (Levothyroxine Sodium 25 Mcg Tablet) 25 mcg PO DAILY@0600 [facility] Last Admin: 09/30/24 05:37 Dose: Not Given Documented By: SIERRA Non-Admin Reason: NPO Magnesium Hydroxide (Milk Of Magnesia 30 Ml Oral.Susp) 30 ml PO DAILY PRN PRN Reason: Constipation Melatonin (Melatonin 3 Mg Tablet) 6 mg PO BEDTIME PRN PRN Reason: Insomnia Metronidazole (Metronidazole 500 Mg Tablet) 500 mg PO Q12H [facility] Last Admin: 09/30/24 08:20 Dose: 500 mg Documented By: JUDAH Morphine Sulfate (Morphine Sulfate Er 15 Mg Tablet.Er) 15 mg PO Q12H [facility] Last Admin: 09/30/24 08:21 Dose: 15 mg Documented By: JUDAH Omeprazole (Omeprazole 20 Mg Capsule.Dr) 20 mg PO DAILY@0630 [facility] Last Admin: 09/30/24 05:37 Dose: Not Given Documented By: SIERRA Non-Admin Reason: NPO Ondansetron HCl (Ondansetron Hcl 4 Mg/2 Ml Vial) 4 mg IVPUSH Q6H PRN PRN Reason: Nausea Last Admin: 09/29/24 12:52 Dose: 4 mg Documented By: JUDAH Raltegravir (Raltegravir Potassium 400 Mg Tablet) 400 mg PO BID [facility] Last Admin: 09/30/24 08:20 Dose: 400 mg Documented By: JUDAH Sodium Biphosphate/Sodium Phosphate (Sodium Phosphate,[place]-Dibasic 133 Ml Enema) 133 ml DC ONCE ONE Stop: 09/30/24 10:01 Sodium Chloride (0.9 % Sodium Chloride Flush 3 Ml Syringe) [facility] Last Admin: 09/29/24 19:57 Dose: 3 ml Documented By: SIERRA Tenofovir Disoproxil Fumarate (Tenofovir Disoproxil Fumarate 300 Mg Tablet) 300 mg PO DAILY [facility] Last Admin: 09/30/24 08:19 Dose: 300 mg Documented By: JUDAH Trazodone HCl (Trazodone Hcl 50 Mg Tablet) 150 mg PO BEDTIME [facility] Last Admin: 09/29/24 19:53 Dose: 150 mg Documented By: SIERRA Vitamin D (Cholecalciferol (Vitamin D3) 25 Mcg Tablet) 50 mcg PO DAILY [facility] Last Admin: 09/30/24 08:21 Dose: 50 mcg Documented By: JUDAH Labs 09/29/24 05:13 09/29/24 05:13 Labs: Laboratory Results - last 24 hr 09/29/24 09/29/24 09/29/24 11:18 15:49 20:20 PT INR POC Glucose 103 102 125 H 09/30/24 09/30/24 06:02 07:44 PT 16.2 H D INR 1.4 H POC Glucose 103 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, HLD, dm, hypothyroid, epileptic and non epileptic seizures, AAA, peripheral vascular disease presented with bright red blood per rectum Acute blood loss anemia due to lower GI bleed due to supratherapeutic warfarin and fondaparinux GI appreicated -- plan for scope today 09/30/24 hgb stable, no further bleeding, warfarin and fonaparinux on hold Acute proctitis Empiric ceftriaxone and Flagyl Recurrent DVTs Currently therapeutic INR, we will bridge with fondaparinux after scope Hypothyroid Levothyroxine HIV Continue HAART Peripheral vascular disease Continue statin Diabetes Insulin sliding scale History of epileptic and nonepileptic seizures Continue Vimpat DVT prophylaxis-restart fondaparinux and warfarin after scope Full code reason for continued hospitalization:plan for scope Quality Stroke Does the patient have a stroke diagnosis?: No VTE Prior VTE?: Yes VTE Risk Level:: Medical - moderate - high VTE Device Contraindication: Treatment Not Indicated VTE Drug Contraindication: N/A - Med Ordered
[2024-09-30] MEDS: HYDROmorphone HCl 2 MG TABLET 1 MG PO ×2 (08:42→14:24)
[2024-09-30] MEDS: 0.9 % Sodium Chloride 500 ML 999 ML IV (08:47)
[2024-09-30] MEDS: 0.9 % Sodium Chloride Flush 3 ML SYRINGE IVFLUSH (08:50)
[2024-09-30] MEDS: Sodium Phosphate,Mono-Dibasic 133 ML ENEMA PR (10:37)
--- NOTE | 2024-09-30 11:44 | MHC.SHP ---
Pre-Procedural Eval Section A - 24 Hr Update-Section A only Date of Service: 09/30/24 The patient is an INPATIENT: Yes The patient has been examined within 24 hours of the surgical procedure. The History & Physical has been completed within 30 days and I have reviewed it.: Yes Section B - Complete if H&P > 30 days Chief Complaint: brbpr Allergies: Allergies Allergy/AdvReac Type Severity Reaction Status Date / Time influenza virus vaccine, Allergy Severe GUILLIAN Verified 09/25/24 13:56 specific BARRE HX. [FLU VACCINE] tramadol [TRAMADOL] Allergy Severe SEIZURES Verified 09/25/24 13:56 acetaminophen [From PERCOCET] Allergy Intermediate ITCHING Verified 09/25/24 13:56 carbamazepine [From TEGRETOL] Allergy Intermediate HALLUCINATI Verified 09/25/24 13:56 ONS lamotrigine [From LAMICTAL] Allergy Intermediate ITCHING Verified 09/25/24 13:56 metoclopramide [From REGLAN] Allergy Intermediate ITCHY Verified 09/25/24 13:56 oxycodone [From PERCOCET] Allergy Intermediate ITCHING Verified 09/25/24 13:56 SEAFOOD Allergy Severe ANAPHYLAXIS Uncoded 06/26/24 11:53 Plan I have reviewed the history and physical and performed a pertinent physical examination on my patient. No changes have occurred unless specified. Time Spent With Patient Time: Total time managing care of this patient today ____ minutes.
[2024-09-30 12:16] LABS: Glucose, Whole Blood 93 mg/dL (60-115)
--- NOTE | 2024-09-30 12:46 | HO.ANESPROP2 ---
[facility] Active Problems Active Problems: All Active Problems Supratherapeutic INR (Acute) Lower GI bleeding (Acute) Hemorrhagic proctitis (Acute) DVT (deep venous thrombosis) (Acute) Seizure disorder (Acute) HIV (human immunodeficiency virus infection) (Acute) Past Medical History Medical History Seizure Popliteal artery aneurysm AAA (abdominal aortic aneurysm) Left sided abdominal pain COVID-19 DVT (deep venous thrombosis) Diabetes Seizure disorder HIV (human immunodeficiency virus infection) Functional capacity: independent ambulation Family History Family history of problems with anesthesia: No Surgical History Surgical History History of colon resection Status post cholecystectomy Status post laparoscopic appendectomy H/O fasciotomy S/P AAA (abdominal aortic aneurysm) repair S/P IVC filter History of Problems with Anesthesia: No Social History Social History Household Members: Spouse and Family Housing: House Do you presently have visiting nurse or other home services: No Alcohol intake: never Comment: pt refuses high fall risk precautions Patient Tobacco Use Status: Former Tobacco user Advance Directives Date on File: 09/26/24 service: No Meds Allergies Allergy/AdvReac Type Severity Reaction Status Date / Time influenza virus vaccine, Allergy Severe GUILLIAN Verified 09/25/24 13:56 specific BARRE HX. [FLU VACCINE] tramadol [TRAMADOL] Allergy Severe SEIZURES Verified 09/25/24 13:56 acetaminophen [From PERCOCET] Allergy Intermediate ITCHING Verified 09/25/24 13:56 carbamazepine [From TEGRETOL] Allergy Intermediate HALLUCINATI Verified 09/25/24 13:56 ONS lamotrigine [From LAMICTAL] Allergy Intermediate ITCHING Verified 09/25/24 13:56 metoclopramide [From REGLAN] Allergy Intermediate ITCHY Verified 09/25/24 13:56 oxycodone [From PERCOCET] Allergy Intermediate ITCHING Verified 09/25/24 13:56 SEAFOOD Allergy Severe ANAPHYLAXIS Uncoded 06/26/24 11:53 Active Medications: Current Medications Albuterol Sulfate (Albuterol Sulfate 90 Mcg 8 Gm Inhaler) 2 puff INHALE Q4H PRN PRN Reason: wheezing/sob Atorvastatin Calcium (Atorvastatin Calcium 80 Mg Tablet) 80 mg PO DAILY [facility] Last Admin: 09/30/24 08:21 Dose: 80 mg Calcium Carbonate (Calcium Carbonate 750 Mg Tab.Chew) 750 mg PO Q4H PRN PRN Reason: Heartburn Ceftriaxone Sodium (Ceftriaxone Sodium 1 Gm Vial) 1 gm IVPUSH Q24H [facility] Last Admin: 09/29/24 21:36 Dose: 1 gm Cobicistat (Cobicistat 150 Mg Tablet) 150 mg PO DAILY [facility] Last Admin: 09/30/24 08:20 Dose: 150 mg Darunavir (Darunavir Ethanolate 800 Mg Tablet) 800 mg PO DAILY [facility] Last Admin: 09/30/24 08:20 Dose: 800 mg Dextrose (Dextrose 50 % 25 Gm/50 Ml Syringe) 25 gm IVPUSH Q15M PRN; Protocol PRN Reason: per Hypoglycemia Standing Ord. Famotidine (Famotidine 20 Mg Tablet) 40 mg PO DAILY [facility] Last Admin: 09/30/24 08:21 Dose: 40 mg Fondaparinux (Fondaparinux Sodium 7.5 Mg/0.6 Ml Syringe) 7.5 mg SUBCUT Q24H [facility] Glucose (Glucose Gel 15 Gm Gel..Gram.) 15 gm PO Q15M PRN; Protocol PRN Reason: per Hypoglycemia Standing Ord. Hydromorphone HCl (Hydromorphone Hcl 2 Mg Tablet) 1 mg PO Q4H PRN PRN Reason: Pain, Severe (Pain Scale 7-10) Last Admin: 09/30/24 08:42 Dose: 1 mg Insulin Human Lispro (Insulin Lispro 100 Unit/Ml 3 Ml Vial) 0 unit SUBCUT QIDACHS [facility]; Protocol Last Admin: 09/30/24 08:19 Dose: Not Given Lacosamide (Lacosamide 100 Mg Tablet) 100 mg PO BID [facility] Last Admin: 09/30/24 08:22 Dose: 100 mg Levothyroxine Sodium (Levothyroxine Sodium 25 Mcg Tablet) 25 mcg PO DAILY@0600 [facility] Last Admin: 09/30/24 05:37 Dose: Not Given Magnesium Hydroxide (Milk Of Magnesia 30 Ml Oral.Susp) 30 ml PO DAILY PRN PRN Reason: Constipation Melatonin (Melatonin 3 Mg Tablet) 6 mg PO BEDTIME PRN PRN Reason: Insomnia Metronidazole (Metronidazole 500 Mg Tablet) 500 mg PO Q12H [facility] Last Admin: 09/30/24 08:20 Dose: 500 mg Morphine Sulfate (Morphine Sulfate Er 15 Mg Tablet.Er) 15 mg PO Q12H [facility] Last Admin: 09/30/24 08:21 Dose: 15 mg Omeprazole (Omeprazole 20 Mg Capsule.Dr) 20 mg PO DAILY@0630 [facility] Last Admin: 09/30/24 05:37 Dose: Not Given Ondansetron HCl (Ondansetron Hcl 4 Mg/2 Ml Vial) 4 mg IVPUSH Q6H PRN PRN Reason: Nausea Last Admin: 09/29/24 12:52 Dose: 4 mg Raltegravir (Raltegravir Potassium 400 Mg Tablet) 400 mg PO BID [facility] Last Admin: 09/30/24 08:20 Dose: 400 mg Sodium Chloride (0.9 % Sodium Chloride Flush 3 Ml Syringe) 3 ml IVFLUSH QSHIFT [facility] Last Admin: 09/30/24 08:50 Dose: 3 ml Tenofovir Disoproxil Fumarate (Tenofovir Disoproxil Fumarate 300 Mg Tablet) 300 mg PO DAILY [facility] Last Admin: 09/30/24 08:19 Dose: 300 mg Trazodone HCl (Trazodone Hcl 50 Mg Tablet) 150 mg PO BEDTIME [facility] Last Admin: 09/29/24 19:53 Dose: 150 mg Vitamin D (Cholecalciferol (Vitamin D3) 25 Mcg Tablet) 50 mcg PO DAILY [facility] Last Admin: 09/30/24 08:21 Dose: 50 mcg Warfarin Sodium (Warfarin Sodium 5 Mg Tablet) 5 mg PO DAILY@1800 [facility] Home Medications ?Medication ?Instructions ?Recorded ?Confirmed ?Last Taken ?Type albuterol sulfate 90 mcg/actuation 2 inh inhalation Q4H PRN 06/26/24 09/25/24 Unknown History aerosol inhaler (Ventolin HFA) wheezing/sob atorvastatin 80 mg tablet 80 mg PO DAILY 06/26/24 09/25/24 09/25/24 History cholecalciferol (vitamin D3) 50 50 mcg PO DAILY 06/26/24 09/25/24 09/25/24 History mcg (2,000 unit) capsule darunavir 800 mg-cobicistat 150 mg 1 tab PO DAILY 06/26/24 09/25/24 09/25/24 History tablet (Prezcobix) empagliflozin 25 mg tablet 25 mg PO DAILY 06/26/24 09/25/2425 History (Jardiance) famotidine 20 mg tablet 40 mg PO DAILY 06/26/24 09/25/24 09/25/24 History lacosamide 100 mg tablet (Vimpat) 100 mg PO BID 06/26/24 09/25/24 09/25/24 History levothyroxine 25 mcg tablet 25 mcg PO DAILY@0600 06/26/24 09/25/24 09/25/24 History pantoprazole 40 mg tablet,delayed 40 mg PO DAILY@0630 06/26/24 09/25/24 09/25/24 History release raltegravir 600 mg tablet 600 mg PO BID 06/26/24 09/25/24 09/25/24 History (Isentress HD) tenofovir disoproxil fumarate 300 300 mg PO DAILY 06/26/24 09/25/24 09/25/24 History mg tablet trazodone 150 mg tablet 150 mg PO BEDTIME 06/26/24 09/25/24 09/24/24 History semaglutide 1 mg/dose (4 mg/3 mL) 1 mg subcut TU 09/25/24 09/25/24 09/23/24 History subcutaneous pen injector (Ozempic) warfarin 10 mg tablet 10 mg PO DAILY 09/25/24 09/25/24 09/25/24 History Exam Height,Weight and Vital Signs: Height 5 ft 9 in Weight 81.6 kg Last Vital Signs Temp 98.6 F 09/30/24 11:32 Pulse 76 09/30/24 11:32 Resp 15 09/30/24 11:32 BP 109/73 09/30/24 11:32 Pulse Ox 94 09/30/24 11:32 O2 Del Method Room Air 09/30/24 11:32 Pertinent Lab Results Pertinent Lab Results: Laboratory Tests 09/25/24 09/25/24 09/25/24 14:25 21:12 21:20 WBC 7.0 RBC 4.73 D Hgb 13.7 L D 12.5 L Hct 42.8 D 38.5 L MCV 90.5 MCH 29.0 MCHC 32.0 RDW 15.1 Plt Count 184 MPV 9.4 Immature Gran % (Auto) 0.3 Neut % (Auto) 62.9 Lymph % (Auto) 28.5 Pepin % (Auto) 7.6 Eos % (Auto) 0.3 Baso % (Auto) 0.4 Lymph # (Auto) 2.0 Pepin # (Auto) 0.5 Eos # (Auto) 0.0 Baso # (Auto) 0.0 Abs Immat Gran (auto) 0.02 Absolute Neuts (auto) 4.4 Absolute Nucleated RBC 0.000 Nucleated RBC % (auto) 0.0 PT 70.3 H D INR 6.0 H* D APTT Sodium 138 Potassium 4.3 Chloride 111 H Carbon Dioxide 23 Anion Gap 8 L BUN 9 Creatinine 1.23 Estim Creat Clear Calc 71.0 Estimated GFR > 60 POC Glucose Random Glucose 189 H Lactic Acid 1.3 Calcium 8.8 Total Bilirubin 0.3 AST 35 ALT 29 Alkaline Phosphatase 128 H Troponin I High Sens < 2.7 Total Protein 8.9 H Albumin 4.0 Lipase 15 Influenza Type A (PCR) NEGATIVE Influenza Type B (PCR) NEGATIVE RSV RNA Qual (PCR) NEGATIVE SARS-CoV-2 RNA (RT-PCR) NEGATIVE 09/26/24 09/26/24 09/26/24 04:04 07:12 11:00 WBC 5.0 RBC 4.40 L Hgb 12.6 L Hct 39.3 L MCV 89.3 MCH 28.6 MCHC 32.1 RDW 15.0 Plt Count 177 MPV 9.6 Immature Gran % (Auto) Neut % (Auto) Lymph % (Auto) Pepin % (Auto) Eos % (Auto) Baso % (Auto) Lymph # (Auto) Pepin # (Auto) Eos # (Auto) Baso # (Auto) Abs Immat Gran (auto) Absolute Neuts (auto) Absolute Nucleated RBC 0.000 Nucleated RBC % (auto) 0.0 PT 82.9 H INR 7.1 H* APTT 60.7 H* D Sodium 139 Potassium 4.0 Chloride 110 H Carbon Dioxide 20 L Anion Gap 13 BUN 10 Creatinine 0.85 Estim Creat Clear Calc 102.8 Estimated GFR > 60 POC Glucose 103 110 Random Glucose 103 Lactic Acid Calcium 8.5 Total Bilirubin AST ALT Alkaline Phosphatase Troponin I High Sens Total Protein Albumin Lipase Influenza Type A (PCR) Influenza Type B (PCR) RSV RNA Qual (PCR) SARS-CoV-2 RNA (RT-PCR) 09/26/24 09/26/24 09/26/24 11:08 16:00 20:17 WBC RBC Hgb 13.7 L Hct 42.2 MCV MCH MCHC RDW Plt Count MPV Immature Gran % (Auto) Neut % (Auto) Lymph % (Auto) Pepin % (Auto) Eos % (Auto) Baso % (Auto) Lymph # (Auto) Pepin # (Auto) Eos # (Auto) Baso # (Auto) Abs Immat Gran (auto) Absolute Neuts (auto) Absolute Nucleated RBC Nucleated RBC % (auto) PT INR APTT Sodium Potassium Chloride Carbon Dioxide Anion Gap BUN Creatinine Estim Creat Clear Calc Estimated GFR POC Glucose 114 116 H Random Glucose Lactic Acid Calcium Total Bilirubin AST ALT Alkaline Phosphatase Troponin I High Sens Total Protein Albumin Lipase Influenza Type A (PCR) Influenza Type B (PCR) RSV RNA Qual (PCR) SARS-CoV-2 RNA (RT-PCR) 09/27/24 09/27/24 09/27/24 05:39 07:33 11:41 WBC 4.9 RBC 4.49 L Hgb 13.1 L Hct 39.8 L MCV 88.6 MCH 29.2 MCHC 32.9 RDW 14.9 Plt Count 165 MPV 9.3 L Immature Gran % (Auto) Neut % (Auto) Lymph % (Auto) Pepin % (Auto) Eos % (Auto) Baso % (Auto) Lymph # (Auto) Pepin # (Auto) Eos # (Auto) Baso # (Auto) Abs Immat Gran (auto) Absolute Neuts (auto) Absolute Nucleated RBC 0.000 Nucleated RBC % (auto) 0.0 PT 64.0 H D INR 5.5 H* APTT Sodium Potassium Chloride Carbon Dioxide Anion Gap BUN Creatinine Estim Creat Clear Calc Estimated GFR POC Glucose 128 H 104 Random Glucose Lactic Acid Calcium Total Bilirubin AST ALT Alkaline Phosphatase Troponin I High Sens Total Protein Albumin Lipase Influenza Type A (PCR) Influenza Type B (PCR) RSV RNA Qual (PCR) SARS-CoV-2 RNA (RT-PCR) 09/27/24 09/27/24 09/28/24 16:04 20:24 05:16 WBC 4.6 L RBC 4.64 Hgb 13.5 L Hct 41.1 L MCV 88.6 MCH 29.1 MCHC 32.8 RDW 15.0 Plt Count 159 L MPV 9.3 L Immature Gran % (Auto) Neut % (Auto) Lymph % (Auto) Pepin % (Auto) Eos % (Auto) Baso % (Auto) Lymph # (Auto) Pepin # (Auto) Eos # (Auto) Baso # (Auto) Abs Immat Gran (auto) Absolute Neuts (auto) Absolute Nucleated RBC 0.000 Nucleated RBC % (auto) 0.0 PT 32.6 H D INR 2.8 H D APTT Sodium Potassium Chloride Carbon Dioxide Anion Gap BUN Creatinine Estim Creat Clear Calc Estimated GFR POC Glucose 159 H 113 Random Glucose Lactic Acid Calcium Total Bilirubin AST ALT Alkaline Phosphatase Troponin I High Sens Total Protein Albumin Lipase Influenza Type A (PCR) Influenza Type B (PCR) RSV RNA Qual (PCR) SARS-CoV-2 RNA (RT-PCR) 09/28/24 09/28/24 09/28/24 07:26 11:37 16:42 WBC RBC Hgb Hct MCV MCH MCHC RDW Plt Count MPV Immature Gran % (Auto) Neut % (Auto) Lymph % (Auto) Pepin % (Auto) Eos % (Auto) Baso % (Auto) Lymph # (Auto) Pepin # (Auto) Eos # (Auto) Baso # (Auto) Abs Immat Gran (auto) Absolute Neuts (auto) Absolute Nucleated RBC Nucleated RBC % (auto) PT INR APTT Sodium Potassium Chloride Carbon Dioxide Anion Gap BUN Creatinine Estim Creat Clear Calc Estimated GFR POC Glucose 97 124 H 149 H Random Glucose Lactic Acid Calcium Total Bilirubin AST ALT Alkaline Phosphatase Troponin I High Sens Total Protein Albumin Lipase Influenza Type A (PCR) Influenza Type B (PCR) RSV RNA Qual (PCR) SARS-CoV-2 RNA (RT-PCR) 09/28/24 09/29/24 09/29/24 19:29 05:13 07:32 WBC 4.8 RBC 4.77 Hgb 13.7 L Hct 42.5 MCV 89.1 MCH 28.7 MCHC 32.2 RDW 14.9 Plt Count 167 MPV 9.8 Immature Gran % (Auto) Neut % (Auto) Lymph % (Auto) Pepin % (Auto) Eos % (Auto) Baso % (Auto) Lymph # (Auto) Pepin # (Auto) Eos # (Auto) Baso # (Auto) Abs Immat Gran (auto) Absolute Neuts (auto) Absolute Nucleated RBC 0.000 Nucleated RBC % (auto) 0.0 PT 21.4 H D INR 1.8 H APTT Sodium 137 Potassium 4.0 Chloride 107 Carbon Dioxide 23 Anion Gap 11 L BUN 9 Creatinine 0.95 Estim Creat Clear Calc 91.9 Estimated GFR > 60 POC Glucose 97 133 H Random Glucose 94 Lactic Acid Calcium 8.8 Total Bilirubin AST ALT Alkaline Phosphatase Troponin I High Sens Total Protein Albumin Lipase Influenza Type A (PCR) Influenza Type B (PCR) RSV RNA Qual (PCR) SARS-CoV-2 RNA (RT-PCR) 09/29/24 09/29/24 09/29/24 11:18 15:49 20:20 WBC RBC Hgb Hct MCV MCH MCHC RDW Plt Count MPV Immature Gran % (Auto) Neut % (Auto) Lymph % (Auto) Pepin % (Auto) Eos % (Auto) Baso % (Auto) Lymph # (Auto) Pepin # (Auto) Eos # (Auto) Baso # (Auto) Abs Immat Gran (auto) Absolute Neuts (auto) Absolute Nucleated RBC Nucleated RBC % (auto) PT INR APTT Sodium Potassium Chloride Carbon Dioxide Anion Gap BUN Creatinine Estim Creat Clear Calc Estimated GFR POC Glucose 103 102 125 H Random Glucose Lactic Acid Calcium Total Bilirubin AST ALT Alkaline Phosphatase Troponin I High Sens Total Protein Albumin Lipase Influenza Type A (PCR) Influenza Type B (PCR) RSV RNA Qual (PCR) SARS-CoV-2 RNA (RT-PCR) 09/30/24 09/30/24 09/30/24 06:02 07:44 11:53 WBC RBC Hgb Hct MCV MCH MCHC RDW Plt Count MPV Immature Gran % (Auto) Neut % (Auto) Lymph % (Auto) Pepin % (Auto) Eos % (Auto) Baso % (Auto) Lymph # (Auto) Pepin # (Auto) Eos # (Auto) Baso # (Auto) Abs Immat Gran (auto) Absolute Neuts (auto) Absolute Nucleated RBC Nucleated RBC % (auto) PT 16.2 H D INR 1.4 H APTT Sodium Potassium Chloride Carbon Dioxide Anion Gap BUN Creatinine Estim Creat Clear Calc Estimated GFR POC Glucose 103 93 Random Glucose Lactic Acid Calcium Total Bilirubin AST ALT Alkaline Phosphatase Troponin I High Sens Total Protein Albumin Lipase Influenza Type A (PCR) Influenza Type B (PCR) RSV RNA Qual (PCR) SARS-CoV-2 RNA (RT-PCR) Airway Mallampati Class: II TM Dist: >3cm Neck ROM: Full Heart: RRR Lungs: CTA Assessment and Plan Assessment Anesthesia Assessment: Anesthesia Plan Discussed and Chart Reviewed Final Anesthetic Review Family History of Problems with Anesthesia: No History of Problems with Anesthesia: No NPO: Yes ASA Class: III Final Preanesthetic Review: Meds/Allgs Chart Reviewed, Consent Obtained/Reviewed and Anes Risks/Benef Reviewed Patient Risk: Low Procedure Risk: Low Anesthetic Plan Anesthetic Plan: MAC: Disposition: Standard PACU
--- NOTE | 2024-09-30 13:02 | P.OPN-COLO_ITS ---
Colonoscopy Operative Note Operative Note Date of Service: 09/30/24 Narrative: Procedure: Flexible sigmoidoscopy Indication: Rectal bleeding, proctitis Endoscopist: Annika Esquivel MD Anesthesia Provider: Dr Colleen Hope Anesthesia type: MAC Instrument: Olympus [id number]-[id number] Consent: Indication, risks vs benefits, and alternatives were discussed with the patient who gave written informed consent to proceed. An educational interpreter was utilized to assist with the consent. EKG, pulse, pulse oximetry and blood pressure were monitored throughout the procedure. Please see anesthesia flowsheet. Procedure: The patient was brought to the procedure room and placed in the left lateral decubitus position. IV medications were administered by the anesthesia provider in attendance. A digital rectal exam was performed which was normal. A distal attachment cap was affixed to the tip of the colonoscope which was then inserted through the anus and advanced through the colon to the cecum at 65 cm. Appendiceal orifice and ileocecal valve were identified. Mucosa was carefully examined under high definition white light as the instrument was slowly withdrawn in a retrograde panoramic fashion. Retroflexion was performed in rectum. The procedure was not difficult. There were no immediate obvious complications. The quality of the prep was BBPS: 1+2+2 = inadequate in R colon Withdrawal time 10 minutes. Limitations: Poor prep. Findings: Mucosa: A side to end colorectal anastomosis was noted with a 2 inch long suture material protruding out as well as a small staple causing white based ulceration in the mucosa. The was removed with a jumbo forceps (see scanned pictures). The anastomosis appeared inflamed with erythema and easy bleeding on biopsies. Remaining mucosa was normal to cecum. No active bleeding noted. Protruding lesions: * Medium internal hemorrhoids without stigmata of recent bleeding. Excavated lesions: * Small diverticulosis of left sided colon. Impression: 1. Prior colorectal anastomosis 2. Suture material causing mild ulceration at the anastomosis - removed 3. Diverticulosis 4. Internal hemorrhoids Recommendations: - Follow path results. - Pt overdue for anal pap - prev seen by [facility] surgery - He will also be scheduled for a complete colonoscopy as outpatient
--- NOTE | 2024-09-30 13:38 | HO.POSTANES ---
Post Anesthesia Evaluation Post Anesthesia Evaluation Date of Service: 09/30/24 Vital Signs: Vital Signs Temp Pulse Resp BP Pulse Ox O2 Del Method 09/30/24 13:24 97.4 F 75 16 102/69 97 Room Air 09/30/24 13:09 97.7 F 66 16 92/58 L 93 Room Air 09/30/24 11:32 98.6 F 76 15 109/73 94 Room Air 09/30/24 09:45 101/58 L 09/30/24 08:37 104/70 09/30/24 08:35 79 97/69 09/30/24 07:40 97.1 F 86 16 97/64 94 Room Air 09/30/24 03:19 97.7 F 76 18 105/72 95 Room Air Anesthesia: Monitored and General Endotracheal-GETA Mental Status: Awake Pain Control: Satisfactory Nausea/Vomiting: None Hydration: Adequate Anesthesia-Related Issues: No Anes. Related Issues
--- NOTE | 2024-09-30 14:35 | MHC.CM.PN ---
Per MD rounds Patient is scheduled for a scope today. He may be ready to discharge later today or tomorrow. DP Home self care. Patient will arrange for transport home.
--- NOTE | 2024-09-30 16:14 | P.DS_ITS ---
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 Patient was recently discharged from [facility] on 09/17/2024 for left-sided weakness (recurrent symptom with multiple negative CTs and MRIs felt to be psychogenic), during that hospitalization was noted to have nonocclusive left femoral popliteal vein thrombus which was seen by vascular and felt to be chronic. His INR was 9. Instructed to hold warfarin on discharge, however, it seems like patient continued warfarin and fondaparinux. On day of presentation noted to have bright red blood in toilet bowl with bowel movement. So he came to hospital. In ED noted to have acute hemorrhage in the inferior rectal vault and acute proctitis pattern. Patient complaining of bilateral lower abdominal pain, denies anal pain. hgb 13.7, then dropped to 12.5. no further blood in ED hospital course: Patient was admitted for acute blood loss anemia due to lower GI bleed due to supratherapeutic warfarin and found him paradoxus. Was seen by Gastroenterology who performed colonoscopy which showed prior colorectal anastomosis, suture material causing mild ulceration at the anastomosis site, diverticulosis, internal hemorrhoids. Recommendations were to follow up pathology results and outpatient follow up for complete colonoscopy. Patient has no further bleeding during hospitalization and hemoglobin remained stable. On discharge will restart warfarin and fondaparinux bridge. Instructed to discontinue fondaparinux once INR therapeutic. For acute proctitis was treated with ceftriaxone and Flagyl and completed course. For recurrent DVTs anticoagulation as stated. For hypothyroid was continued on levothyroxine. For HIV was continued on HAART. For peripheral vascular disease continued on anticoagulation and statin. For diabetes was continued on insulin sliding scale. For history of epileptic and nonepileptic seizures was continued on Vimpat. Patient is feeling better will be discharged home. Time Attestation Discharge Coordination Time (in mins): 33 Quality: Safe Use of Opioids Does Pt have an Active Cancer Diagnosis on the Problem List?: No Quality: Stroke Does the patient have a stroke diagnosis?: No Physical Exam Vital Signs: Vital Signs: Last Vital Signs Temp 97.8 F 09/30/24 15:27 Pulse 81 09/30/24 15:27 Resp 18 09/30/24 15:27 BP 100/63 09/30/24 15:27 Pulse Ox 98 09/30/24 15:27 O2 Del Method Room Air 09/30/24 15:27 BMI result Body Mass Index 26.6 General: AO X 3, no acute distress Resp: CTA bilateral, no accessory muscles used CVS: S1,S2,RRR GI: soft, non tender, non distended Neuro: motor grossly intact, alert Psych: appropriate affect, appropriate insight DS: Data Data Completed and Pending Pending studies at discharge: Pending at discharge 09/30/24 12:48 Surgical [PTH] Routine Labs on day of discharge: Laboratory Results - last 24 hr 09/29/24 09/30/24 09/30/24 20:20 06:02 07:44 PT 16.2 H D INR 1.4 H POC Glucose 125 H 103 09/30/24 11:53 PT INR POC Glucose 93 Preliminary micro results at discharge 09/25/24 21:30 Blood Culture - Preliminary Blood - Venous No growth after 48 hours. 09/25/24 21:20 Blood Culture - Preliminary Blood - Venous No growth after 48 hours. Discharge Plan Discharge Anticipated Discharge Date/Time: 09/30/24 16:10 Patient Disposition: Home, Self-Care Discharge Diagnosis: proctitis Referrals: Thomas Kam PA [Primary Care Provider] - 1 Week Annika Esquviel MD [Physician] - 1 Week Discharge Medications: New fondaparinux 7.5 mg/0.6 mL Syringe 7.5 mg subcut Q24H Qty: 0 0RF Continued warfarin 10 mg tablet 10 mg PO DAILY Ozempic 1 mg/dose (4 mg/3 mL) pen injector 1 mg subcut TU atorvastatin 80 mg tablet 80 mg PO DAILY famotidine 20 mg tablet 40 mg PO DAILY lacosamide [Vimpat] 100 mg tablet 100 mg PO BID levothyroxine 25 mcg tablet 25 mcg PO DAILY@0600 pantoprazole 40 mg tablet,delayed release (DR/EC) 40 mg PO DAILY@0630 trazodone 150 mg tablet 150 mg PO BEDTIME tenofovir disoproxil fumarate 300 mg tablet 300 mg PO DAILY cholecalciferol (vitamin D3) 50 mcg (2,000 unit) capsule 50 mcg PO DAILY Jardiance 25 mg tablet 25 mg PO DAILY Prezcobix 800-150 mg-mg tablet 1 tab PO DAILY Isentress HD 600 mg tablet 600 mg PO BID albuterol sulfate [Ventolin HFA] 90 mcg/actuation HFA aerosol inhaler 2 inh inhalation Q4H PRN (Reason: wheezing/sob) Discharge Orders: Discharge Order (Routine); Ordered 09/30/24 Ordered By: Hiro Maurer Diet: Advance to usual diet Activity on Discharge: As tolerated Stand Alone Forms: Patient Portal Discharge page Print Language: Pashto Care Plan Goals: Recovery Health Concerns: Supratherapeutic INR on admission, history of DVT, proctitis Plan of Treatment: Restart warfarin and fondaparinux bridge, monitor INR closely and once therapeutic STOP Fondaparinux. Follow up with Gastroenterology Assessment: See above
--- NOTE | 2024-09-30 16:24 | MHC.CM.PN ---
IMM 09/30/23 Patient is discharged to home selfcare. Patient will arrange transportation home.
[2024-09-30 16:29] LABS: Glucose, Whole Blood 146 mg/dL (60-115)
== END 2024-09-30 16:54 | disposition home or self-care (01) | DRG 393 ==
LOC: HO.ED 21:57 → HO.EDOVER 22:17 → HO.S3 09-26 07:25
PROVIDERS: Family Medicine; Internal Medicine; Physician Assistant; Physician Assistant Medical; Admitting Provider Internal Medicine; Emergency Provider Emergency Medicine; PCP Physician Assistant; Visit Provider Internal Medicine
PROC: 0DJD8ZZ Inspection of Lower Intestinal Tract, Via Natural or Artificial Opening Endoscopic (ICD-10-PCS; CPT 45330; principal; 2024-09-30 13:30)
DX: K62.89 Other specified diseases of anus and rectum (principal); K28.4 Chronic or unspecified gastrojejunal ulcer with hemorrhage; K57.31 Diverticulosis of large intestine without perforation or abscess with bleeding; D62 Acute posthemorrhagic anemia; D68.32 Hemorrhagic disorder due to extrinsic circulating anticoagulants; Z21 Asymptomatic human immunodeficiency virus [HIV] infection status; K64.8 Other hemorrhoids; T45.515A Adverse effect of anticoagulants, initial encounter; G40.909 Epilepsy, unspecified, not intractable, without status epilepticus; E11.51 Type 2 diabetes mellitus with diabetic peripheral angiopathy without gangrene; Z20.822 Contact with and (suspected) exposure to COVID-19; Z86.718 Personal history of other venous thrombosis and embolism; Z79.01 Long term (current) use of anticoagulants; Z79.890 Hormone replacement therapy; Z79.899 Other long term (current) drug therapy
CPT/HCPCS: 0241U; 36415; 74178; 80048; 80053; 82947; 83605; 83690; 84484; 85014; 85018; 85025; 85027; 85610; 85730; 87040; 88305; 93005; 99285; J0696; J1836; J2003; J2270; J2405; J2704; Q9967

== ENCOUNTER → 2024-09-25 18:47 | Outpatient (BNV) | payer MEDICARE, MEDICAID, SELFPAY | PROVIDERS: Emergency Provider Emergency Medicine; PCP Physician Assistant; Visit Provider Radiology Diagnostic Radiology | DX: K62.89 Other specified diseases of anus and rectum (principal); K62.5 Hemorrhage of anus and rectum | CPT/HCPCS: 74178 ==

== ENCOUNTER → 2024-09-25 22:05 | Outpatient (BNV) | payer MEDICARE, MEDICAID, SELFPAY | PROVIDERS: Admitting Provider Internal Medicine; Emergency Provider Emergency Medicine; PCP Physician Assistant; Visit Provider Internal Medicine | DX: B20 Human immunodeficiency virus [HIV] disease (principal); K92.2 Gastrointestinal hemorrhage, unspecified; R79.1 Abnormal coagulation profile; I82.409 Acute embolism and thrombosis of unspecified deep veins of unspecified lower extremity; K62.89 Other specified diseases of anus and rectum | CPT/HCPCS: 99222 ==

== ENCOUNTER 2025-04-14 12:47 | Emergency (ER) | payer MEDICARE, MEDICAID, SELFPAY ==
--- NOTE | ~2025-04-14 | CT_ITS ---
CLINICAL HISTORY: Lower abdo pain tenderness CT ABDOMEN AND PELVIS WITH CONTRAST COMPARISON: 09/25/2024. FINDINGS: No evidence of a bowel obstruction or free air. Mild haziness/stranding is noted adjacent to a portion of the sigmoid colon, located adjacent to anastomotic sutures. For example this is seen on axial image 537 of series 4. An infectious or inflammatory process is suspected. No abscess or free air. Post appendectomy changes are again noted. Bifurcated aortoiliac stent graft is again noted. Accurate assessment for an endoleak cannot be performed due to the lack of noncontrast imaging and arterial phase imaging. No evidence of an abdominal aortic rupture. Borderline aneurysmal dilatation of the infrarenal abdominal aorta is again noted, measuring 3 cm in AP diameter on axial image 355. A subcentimeter calcified granuloma is again noted within the right lower lobe. Small confluent area of atelectatic/fibrotic change is again noted in the periphery of the left lower lobe on axial image 19. Cholecystectomy clips are again noted. No focal liver lesion. Stomach is underdistended which precludes accurate assessment. No CT evidence of acute pancreatitis. Calcified granulomas are again noted within the spleen. Adrenal glands are unremarkable. Subcentimeter low-attenuation lesion in the left kidney is too small to characterize. Both kidneys are otherwise unremarkable. No hydronephrosis or obstructing stone. Urinary bladder is unremarkable. No lymphadenopathy. Hernia mesh is again noted in association with the anterior abdominal wall. The bone windows demonstrate no acute abnormalities. IMPRESSION: 1. Mild haziness/stranding is noted adjacent to a portion of the sigmoid colon, located adjacent to anastomotic sutures. An infectious or inflammatory process is suspected. No abscess or free air. 2. Additional findings are detailed above. This document has been electronically signed by: Rober Stearns M.D. on 04/14/2025 22:22:31
--- NOTE | ~2025-04-14 | US_ITS ---
EXAMINATION: US TRIPLEX LOWER EXTREMITY, LEFT CLINICAL INFORMATION: Severe left lower extremity pain, prior DVT, taking warfarin COMPARISON: April 08, 2024 TECHNIQUE: Color-flow triplex imaging with spectral analysis and compression Doppler were performed on the left lower extremity. FINDINGS: Respiratory variation, normal compression and augmented flow are noted throughout the left lower extremity. The visualized common femoral vein, superficial femoral vein, profunda femoral vein, popliteal vein and posterior tibial venous segments show no evidence of deep venous thrombosis. Peroneal vein demonstrates peripheral hypoechoic material within the vessel with venous flow present on spectral interrogation consistent with chronic nonocclusive thrombus There is no Melton's cyst. US/US venous duplex LE LT IMPRESSION: No acute deep venous thrombosis involving the left lower extremity. Overall improvement with residual nonocclusive chronic thrombotic changes in the peroneal vein. Interval resolution of chronic thrombus in the femoral, popliteal, and posterior tibial veins. Electronically signed by: Rosalio Callahan MD 04/14/2025 02:06 PM EDT
[2025-04-14 13:00] VITALS: BP 127/81; PULSE 88; RESP 18; TEMP 36.6; O2SAT 97; BMI 25.7
--- NOTE | 2025-04-14 13:00 | ED.GENADULT ---
HPI - General Adult General Chief complaint: General Medical Stated complaint: Blood clot L leg Time Seen by Provider: 04/14/25 19:58 History of Present Illness ED Provider: Merlene GALLAGHER narrative: The patient is a 49-year-old male with a history of HIV on anti-retroviral therapy. He also has a history of significant vascular disease including a AAA and I believe he has also had aneurysms in his legs. He also has a history of DVTs. He had what I believe was an endovascular repair of AAA several years ago in [place]. He has also had surgeries in both legs for vascular issues as well. The patient is on warfarin which is managed through the [facility]. The patient presents with 3 days of left leg pain that he says feels like pain he has had with a DVT in the past. He has also had 3 days of abdominal pain associated with nausea and vomiting. Related Data Home Medications ?Medication ?Instructions ?Recorded ?Confirmed albuterol sulfate 90 mcg/actuation 2 inh inhalation Q4H PRN 06/26/24 09/25/24 aerosol inhaler (Ventolin HFA) wheezing/sob atorvastatin 80 mg tablet 80 mg PO DAILY 06/26/24 09/25/24 cholecalciferol (vitamin D3) 50 50 mcg PO DAILY 06/26/24 09/25/24 mcg (2,000 unit) capsule darunavir 800 mg-cobicistat 150 mg 1 tab PO DAILY 06/26/24 09/25/24 tablet (Prezcobix) empagliflozin 25 mg tablet 25 mg PO DAILY 06/26/24 09/25/24 (Jardiance) famotidine 20 mg tablet 40 mg PO DAILY 06/26/24 09/25/24 lacosamide 100 mg tablet (Vimpat) 100 mg PO BID 06/26/24 09/25/24 levothyroxine 25 mcg tablet 25 mcg PO DAILY@0600 06/26/24 09/25/24 pantoprazole 40 mg tablet,delayed 40 mg PO DAILY@0630 06/26/24 09/25/24 release raltegravir 600 mg tablet 600 mg PO BID 06/26/24 09/25/24 (Isentress HD) tenofovir disoproxil fumarate 300 300 mg PO DAILY 06/26/24 09/25/24 mg tablet trazodone 150 mg tablet 150 mg PO BEDTIME 06/26/24 09/25/24 semaglutide 1 mg/dose (4 mg/3 mL) 1 mg subcut TU 09/25/24 09/25/24 subcutaneous pen injector (Ozempic) warfarin 10 mg tablet 10 mg PO DAILY 09/25/24 09/25/24 Previous Rx's ?Medication ?Instructions ?Recorded fondaparinux 7.5 mg/0.6 mL 7.5 mg (0.6 mL) subcut Q24H #0 mL 09/30/24 subcutaneous solution syringe amoxicillin 875 mg-potassium 1 tab PO BID #16 tabs 04/14/25 clavulanate 125 mg tablet Allergies Allergy/AdvReac Type Severity Reaction Status Date / Time influenza virus vaccine, Allergy Severe GUILLIAN Verified 04/14/25 13:03 specific (FLU VACCINE) BARRE HX. tramadol (TRAMADOL) Allergy Severe SEIZURES Verified 04/14/25 13:03 acetaminophen (From PERCOCET) Allergy Intermediate ITCHING Verified 04/14/25 13:03 carbamazepine (From TEGRETOL) Allergy Intermediate HALLUCINATI Verified 04/14/25 13:03 ONS lamotrigine (From LAMICTAL) Allergy Intermediate ITCHING Verified 04/14/25 13:03 metoclopramide (From REGLAN) Allergy Intermediate ITCHY Verified 04/14/25 13:03 oxycodone (From PERCOCET) Allergy Intermediate ITCHING Verified 04/14/25 13:03 SEAFOOD Allergy Severe ANAPHYLAXIS Uncoded 04/14/25 13:03 Review of Systems Review of Systems: Yes all other systems are reviewed and are negative PMFSH Past Medical History Medical History Seizure Popliteal artery aneurysm AAA (abdominal aortic aneurysm) Left sided abdominal pain COVID-19 DVT (deep venous thrombosis) Diabetes Seizure disorder HIV (human immunodeficiency virus infection) Surgical History History of colon resection Status post cholecystectomy Status post laparoscopic appendectomy H/O fasciotomy S/P AAA (abdominal aortic aneurysm) repair S/P IVC filter Social History Social History Household Members: Spouse and Family Housing: House Do you presently have visiting nurse or other home services: No Alcohol intake: never Comment: pt refuses high fall risk precautions Patient Tobacco Use Status: Former Tobacco user Smoked in Last 30 Days: No Use of substances other than those prescribed or required for medical reasons: No Advance Directives: Yes Advance Directives on File: Yes Advance Directives Date on File: 09/26/24 Do you have a plan to hurt others: No Plan service: No Physical Exam ED Vital Signs: Vital Signs - 24 hr 04/14/25 13:00 04/14/25 19:59 04/14/25 22:01 Temperature 98 F 98.3 F 98.4 F Pulse Rate 88 74 70 Respiratory Rate 18 15 Blood Pressure 127/81 110/69 96/56 L Pulse Oximetry 97 98 96 Oxygen Delivery Method Room Air Room Air Room Air 04/14/25 23:16 Temperature 98.4 F Pulse Rate 70 Respiratory Rate 20 Blood Pressure 96/56 L Pulse Oximetry 96 Oxygen Delivery Method Room Air BMI result Body Mass Index 25.7 Const Other: The patient is awake and alert. He does not appear overtly toxic or in distress. Orientation/consciousness: patient oriented x3 HENMT Other: The face is symmetrical. ?Mucous membranes moist. Eyes Other: Pupils are round equal, conjunctivae are clear, extraocular movements intact General: appearance normal, both eyes and all related structures Neck Neck: Yes normal visual inspection and Yes full ROM Resp Effort & Inspection: normal respiratory effort Auscultation: clear to auscultation bilaterally Cardio Rate: regular rate Rhythm: regular rhythm Heart sounds: S1 normal heart sound present and S2 normal heart sound present GI Other: The patient has lower abdominal tenderness, mostly in the left lower quadrant. Skin Other: The patient has skin is dry and unremarkable although he has multiple surgical scars on both legs. Neuro General: patient oriented x3, gait normal, tone normal, moves all extremities, no focal motor deficits and CN's II-XI intact bilaterally Extrem Other: The patient has surgical scars on both the medial and lateral aspects of both lower legs. He also has surgical scars on the right thigh. There was no peripheral edema. He has good pulses in both feet. No asymmetry to the calves. No swelling. No tenseness. Course Course Course Narrative: This is a Rapid Medical Examination (RME) performed by William Limon PA-C in triage. Full HPI, ROS, assessment and treatment plan per primary provider in the Main ED. Hx: 49 yo M hx of seizures, HIV, AAA with repair, LLE DVT on warfarin (INR checked 1 wk ago 3.9 with goal 2.1-2.5) here w/ severe posterior left LE pain on waking this morning. having difficulty walking d/t pain. also endorses inflammation to right side of abdomen on waking. assoc nausea w/o vomiting. no diarrhea, BRBPR or melena. Plan: labs, pt/inr, venous duplex Medications Administered Discontinued Medications Generic Name Dose Route Start Last Admin Trade Name Freq PRN Reason Stop Dose Admin Amoxicillin/Clavulanate Potassium 875 mg 04/14/25 22:48 04/14/25 23:09 Amoxicillin/Potassium Clav 875 Mg Tablet PO 04/14/25 22:49 875 mg ONCE ONE Administration Enoxaparin Sodium 80 mg 04/14/25 22:48 04/14/25 23:09 Enoxaparin Sodium 80 Mg/0.8 Ml Syringe 1 mg/kg (80 mg) 04/14/25 22:49 80 mg SUBCUT Administration ONCE ONE Sodium Chloride 1,000 mls @ 999 mls/hr 04/14/25 20:45 04/14/25 22:26 Ns IV 04/14/25 21:45 Infused .Q1H1M HAYLEY Infusion Iohexol 85 ml 04/14/25 21:32 04/14/25 21:32 Iohexol 350 Mg/Ml 100 Ml Infus..Btl IV 04/14/25 21:33 85 ml ONCE ONE Administration Morphine Sulfate 4 mg 04/14/25 20:32 04/14/25 21:14 Morphine Sulfate 4 Mg/Ml Cartridge IVPUSH 04/14/25 20:33 4 mg ONCE ONE Administration Protocol Morphine Sulfate 4 mg 04/14/25 22:48 04/14/25 23:09 Morphine Sulfate 4 Mg/Ml Cartridge IVPUSH 04/14/25 22:49 4 mg ONCE ONE Administration Protocol Ondansetron HCl 4 mg 04/14/25 20:32 04/14/25 21:14 Ondansetron Hcl 4 Mg/2 Ml Vial IVPUSH 04/14/25 20:33 4 mg ONCE ONE Administration Procedures Procedure Narrative Procedure Narrative: Ultrasound-guided IV 20 gauge 1-3/4 inch IV placed in left upper extremity. Adequate blood return, flushes well secured with Tegaderm. Performed by Alicia Tate PA-C Medical Decision Making Medical Decision Making MDM Narrative: The patient is a 49-year-old male with HIV on anti-retroviral therapy. He also has a history of significant vascular disease including AAA with the an endovascular repair. He has also had DVTs in his legs and he seems to have had significant vascular surgery in both legs. Despite all these problems the patient is relatively youthful and robust in appearance. The patient does not appear acutely ill today. He was complaining of left leg pain but the left leg exam is unremarkable. He is also complaining of abdominal pain. He has a mild tenderness in his left lower abdomen. The patient is apparently on warfarin because of his history of DVTs. Remarkably his INR is only 1.1. He says that last week he has been told to hold his warfarin for 2 days because he had had an INR of 3.9. He says otherwise he has been taking his usual dose of 5 mg warfarin daily. Interestingly he had an INR checked at [facility] 2 days ago on 04/12. At that point his INR was 1.2. To address the patient's complaint of left leg pain today an ultrasound was done which shows no acute DVT. Clinically I do not think he seems to have a DVT or any other definite acute process in the leg. Perhaps his left leg pain is related to sciatica. The patient was also complaining of abdominal pain. Given his complex medical history we obtained a CT scan of the abdomen and pelvis despite the fact that his CBC was quite unremarkable. The CT scan was read as possibly showing a very small area of inflammation or infection at the anastomosis of his sigmoid colon. Apparently the patient has a partial colectomy because of diverticulitis with a reanastomosis. Because of this finding the patient will be placed on a course of Augmentin. Otherwise the patient looks well enough for outpatient management. He apparently has a regular doctor's appointment tomorrow. The patient was given a dose of enoxaparin because of his subtherapeutic INR. He is advised to contact his Coumadin clinic tomorrow for additional advice regarding his INR tomorrow. Lab Data 04/14/25 14:49 04/14/25 14:49 Labs: Lab Results 04/14/25 04/14/25 Range/Units 14:49 22:30 WBC 5.5 (4.8-10.8) X10*3/uL RBC 4.77 (4.60-5.80) X10*6/uL Hgb 14.0 (14.0-18.0) g/dl Hct 44.5 (42.0-52.0) % MCV 93.3 (80.0-98.0) fL MCH 29.4 (27.0-33.0) pg MCHC 31.5 (31.0-36.0) g/dl RDW 15.3 (11.0-16.0) % Plt Count 150 L (160-400) X10*3/uL MPV 9.1 L (9.4-12.4) fL Immature Gran % (Auto) 0.2 (0.0-0.4) % Neut % (Auto) 56.1 (45-73) % Lymph % (Auto) 33.4 (20-40) % [place] % (Auto) 8.7 (2-11) % Eos % (Auto) 0.9 (0-4) % Baso % (Auto) 0.7 (0-2) % Lymph # (Auto) 1.8 (1.2-4.9) X10*3/uL [place] # (Auto) 0.5 (0.1-1.2) X10*3/uL Eos # (Auto) 0.1 (0.0-0.4) X10*3/uL Baso # (Auto) 0.0 (0.0-0.2) X10*3/uL Abs Immat Gran (auto) 0.01 (0.00-0.03) X10*3/uL Absolute Neuts (auto) 3.1 (2.0-8.3) x10*3/uL Absolute Nucleated RBC 0.000 (0.0-0.012) X10*3/uL Nucleated RBC % (auto) 0.0 (0.0-0.2) /100WBC PT 12.2 D (10.9-12.4) SEC INR 1.1 (0.9-1.1) Sodium 136 (135-145) mmol/L Potassium 4.1 (3.3-5.1) mmol/L Chloride 106 (96-108) mmol/L Carbon Dioxide 23 (22-29) mmol/L Anion Gap 11 L (12-20) BUN 12 (9-16) mg/dL Creatinine 1.14 (0.5-1.4) mg/dL Estim Creat Clear Calc 76.6 Estimated GFR > 60 Random Glucose 117 H (60-115) mg/dL Calcium 8.8 (8.4-10.2) mg/dL Magnesium 2.2 (1.6-2.6) mg/dL Total Bilirubin 0.4 (0.0-1.0) mg/dL AST 34 (5-37) U/L ALT 30 (0-40) U/L Alkaline Phosphatase 117 (39-117) U/L Total Protein 8.3 H (6.5-8.0) g/dL Albumin 4.0 (3.5-5.0) g/dL Urine Color Dark Yellow Urine Appearance Clear Urine pH 5.5 (5.0-9.0) Ur Specific [place] >= 1.030 H (1.005-1.025) Urine Protein Trace (Neg-Trace) mg/dL Urine Glucose (UA) 500 H (Negative) mg/dL Urine Ketones Negative (Negative) mg/dL Urine Blood Negative (Negative) Urine Nitrite Negative (Negative) Ur Leukocyte Esterase Negative (Negative) Urine RBC 0-2 (0-2) /HPF Urine WBC 0-5 (0-5) /HPF Ur Squamous Epith Cells 0-2 (0-2) /HPF Urine Bacteria None Seen (None Seen) Hyaline Casts 0-2 (0-2) /LPF Discharge Plan Discharge Clinical Impression: Abdominal pain, Left leg pain Patient Disposition: Home, Self-Care Additional Instructions: The ultrasound of your leg leg does not show any clot. The CAT scan of your abdomen shows a very small area of inflammation in your colon which may represent an infection. For this reason you has been started on a course of antibiotics. Please take the antibiotic amoxicillin/clavulanate 2 times a day as prescribed. Your laboratory testing today was reassuring, with the exception of your INR. The INR test is the test which measures the effects of warfarin (Coumadin). Your INR today was 1.1. This is low for you. I suspect that your INR is supposed to be between 2-3. You were given an injection of enoxaparin tonight. Please contact your Coumadin clinic tomorrow morning for additional instructions related to your Coumadin dosing. Please keep your appointment with your regular doctor tomorrow as well. Return to the emergency room if significantly worse. Prescriptions: New amoxicillin-pot clavulanate 875-125 mg tablet 1 tab PO BID Qty: 16 0RF No Action warfarin 10 mg tablet 10 mg PO DAILY Ozempic 1 mg/dose (4 mg/3 mL) pen injector 1 mg subcut TU fondaparinux 7.5 mg/0.6 mL Syringe 7.5 mg subcut Q24H Qty: 0 0RF atorvastatin 80 mg tablet 80 mg PO DAILY famotidine 20 mg tablet 40 mg PO DAILY lacosamide [Vimpat] 100 mg tablet 100 mg PO BID levothyroxine 25 mcg tablet 25 mcg PO DAILY@0600 pantoprazole 40 mg tablet,delayed release (DR/EC) 40 mg PO DAILY@0630 trazodone 150 mg tablet 150 mg PO BEDTIME tenofovir disoproxil fumarate 300 mg tablet 300 mg PO DAILY cholecalciferol (vitamin D3) 50 mcg (2,000 unit) capsule 50 mcg PO DAILY Jardiance 25 mg tablet 25 mg PO DAILY Prezcobix 800-150 mg-mg tablet 1 tab PO DAILY Isentress HD 600 mg tablet 600 mg PO BID albuterol sulfate [Ventolin HFA] 90 mcg/actuation HFA aerosol inhaler 2 inh inhalation Q4H PRN (Reason: wheezing/sob) Referrals: Thomas Kam PA [Physician Park Manager, Medical] Interventions: ED Discharge Assessment Last Done: 04/14/25 23:16 Discharge Date/Time: 04/14/25 23:17 Print Language: Australian
[2025-04-14 14:56] LABS: MANUAL DIFF FLAG NO
[2025-04-14 15:03] LABS: Hematocrit 44.5 % (42.0-52.0); Hemoglobin 14.0 g/dl (14.0-18.0); INTERNATIONAL NORM RATIO 1.1 (0.9-1.1); Imm Gran Abs Auto 0.01 X10*3/uL (0.00-0.03); Imm Gran Pct Auto 0.2 % (0.0-0.4); Lymphocytes Absolute Auto 1.8 X10*3/uL (1.2-4.9); Mean Corpuscular HGB Conc 31.5 g/dl (31.0-36.0); Mean Corpuscular Hemoglobin 29.4 pg (27.0-33.0); Mean Corpuscular Volume 93.3 fL (80.0-98.0); NRBC Abs Auto 0.000 X10*3/uL (0.0-0.012); NRBC Pct Auto 0.0 /100WBC (0.0-0.2); Platelet Count 150 X10*3/uL (160-400); Prothrombin Time 12.2 SEC (10.9-12.4); Red Blood Count 4.77 X10*6/uL (4.60-5.80); White Blood Count 5.5 X10*3/uL (4.8-10.8)
[2025-04-14 15:20] LABS: Alanine Aminotransferase 30 U/L (0-40); Albumin Level 4.0 g/dL (3.5-5.0); Alkaline Phosphatase 117 U/L (39-117); Anion Gap 11 (12-20); Aspartate Amino Transferase 34 U/L (5-37); Blood Urea Nitrogen 12 mg/dL (9-16); Calcium 8.8 mg/dL (8.4-10.2); Carbon Dioxide 23 mmol/L (22-29); Chloride 106 mmol/L (96-108); Creatinine Clr Calc Pharmacy 76.6; Estimated Glomerular Filt Rate > 60; Magnesium 2.2 mg/dL (1.6-2.6); Potassium 4.1 mmol/L (3.3-5.1); Sodium 136 mmol/L (135-145); Total Protein 8.3 g/dL (6.5-8.0)
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
--- OUTSIDE RECORDS SUMMARY | 2025-04-14 16:18 | XMS_ITS | Clinical Summary ---
Author Organization [address] [address] Phone Care Team Providers Care Personal Banking Assistant Name Role Phone Pcp, Does Not Have [...] 87 04/29/2023 6:00 PM EDT Temperature 36.7 C (98.1 F) 04/29/2023 11:46 AM EDT Respiratory Rate 16 04/29/2023 11:46 AM EDT [...] adult (Td q 10,TDAP once) 09/30/2023 09/30/2013 Pneumococcal Vaccine (50+ years) (3 of 3 - PCV20 or PCV21) 04/11/2024 04/11/2019, 02/03/2017, 11/28/2016, Additional history exists Covid-19 vaccine series (4 - season) 2024 04/03/2022, 09/02/2021, 08/08/2021 Influenza vaccine 04/27/2025 07/29/2013, 05/06/2010 Diabetes screening 04/29/2026 04/29/2023 RSV Immunization (1 - 1-dose 75+ series) 2048 Meningococcal Vaccine Aged Out 11/18/2018, 017 No longer eligible based on patient's age to complete this topic Pneumococcal Vaccine (2 - 49 years) Discontinued 04/11/2019, 02/03/2017, 11/28/2016, Additional history exists Procedures Procedure Name Priority Date/Time Associated Diagnosis Comments COMPREHENSIVE METABOLIC PANEL STAT 04/29/2023 12:45 PM EDT from Last 3 Months or Most Recently Relevant to Health Maintenance Results * (ABNORMAL) Comprehensive metabolic panel (04/29/2023 12:45 PM EDT) Sodium 136 136 - 144 mmol/L 04/29/2023 1:19 PM EDT PENDING SALE TO [facility] Potassium 3.9 3.3 - 5.3 mmol/L 04/29/2023 1:19 PM EDT PENDING SALE TO [facility] Chloride 101 98 - 107 mmol/L 04/29/2023 1:19 PM EDT PENDING SALE TO [facility] CO2 24 20 - 30 mmol/L 04/29/2023 1:19 PM EDT PENDING SALE TO [facility] Anion Gap 11 7 - 17 04/29/2023 1:19 PM [facility] OF [facility] MEDIC[facility] Glucose 181(H) 70 - 100 mg/dL 04/29/2023 1:19 PM [facility] OF LAB[facility] MEDIC[facility] BUN 12 6 - 20 mg/dL 04/29/2023 1:19 PM [facility] Creatinine 1.17 0.40 - 1.30 mg/dL 04/29/2023 1:19 PM [facility] Calcium 9.2 8.8 - 10.2 mg/dL 04/29/2023 1:19 PM [facility] BUN/Creatinine Ratio 10.3 8.0 - 23.0 04/29/2023 1:19 PM [facility] Total Protein 8.7 6.6 - 8.7 g/dL 023 1:19 PM [facility] Albumin 4.5 3.6 - 4.9 g/dL 04/29/2023 1:19 PM [facility] Total Bilirubin 0.5 <=1.2 mg/dL 04/29/20 1:19 PM [facility] Alkaline Phosphatase 155(H) 9 - 122 U/L 04/29/2023 1:19 PM [facility] Alanine Aminotransferase (ALT) 45 9 - 59 U/L 04/29/2023 1:19 PM [facility] Comment:Calcium dobesilate c an cause artificially low ALT results at therapeutic concentrations Aspartate Aminotransferase (AST) 51(H) 10 - 35 U/L 04/29/2023 1:19 PM [facility] Globulin 4.2(H) 2.3 - 3.5 g/dL 04/29/2023 1:19 PM [facility] A/G Ratio 1.1 1.0 - 2.2 04/29/2023 1:19 PM [facility] AST/ALT Ratio 1.1 Reference Range Not Established 04/29/2023 1:19 PM [facility]IC[facility] eGFR (Creatinine) >60 >=60 mL/min/1.73m2 04/29/2023 1:19 PM EDT PENDING SALE TO [facility] Comment: Values < 60 mL/min/1.73 m2 may indicate CKD if present for more than three months AND creatinine is at steady state. The eGFR provides a rough estimate of kidney function. On 04/11/22 all [facility] Clinical Labs and Epic began using a [id number] formula for estimating GFR called CKD-EPI Creatinine 2020. This equation reports eGFR based on creatinine, patient age, clinical sex, and is standardized to a body surface area of 1.73 m2. For the same creatinine, this new race-free eGFR will be lower than prior reported Black eGFR results and higher than prior Non-Black eGFR results. For further guidance, please refer to the CKD: Adult Shipfitter Signature pathway. Blood Venipuncture / Unknown 04/29/2023 12:45 PM EDT 04/29/2023 12:52 PM EDT us Kurt Akins MD LAB BLOOD ORDERABLES Final Resu lt PENDING SALE TO [facility] [address] [place] [address], [facility] [phone] from Last 3 Months or Most Recently Relevant to Health Maintenance Insurance MEDICARE [id number] MEDICAID MEDICARE [id number] MEDICAID MEDICARE [id number] MEDICAID Care Teams Personal Banking Assistant Relationship Specialty Start Date End Date Pcp, Does Not Have A PCP - General 04/29/23
--- OUTSIDE RECORDS SUMMARY | 2025-04-14 16:18 | XMS_ITS | Clinical Summary ---
[facility] [address] [place] [address] Care Team Providers Care Web Specialist Name Role Phone Thomas Kam Primary Care [...] 79 02/16/2023 10:39 AM EDT Temperature 36.9 C (98.4 F) 02/16/2023 10:39 AM EDT Respiratory Rate 16 02/16/2023 10:39 AM EDT [...] (1 of 2) 2023 Influenza Vaccine (#1) 2025 Pneumococcal Vaccine Aged Out No long er eligible based on patient's age to complete this topic RSV Ped < 20 months Aged Out No longe r eligible based on patient's age to complete this topic Care Teams Web Specialist Relationship Specialty Start Date End Date Thomas Kam PA [address] [place] [phone] PCP - General Physician Pelletising Extruder Operator 02/16/23
--- OUTSIDE RECORDS SUMMARY | 2025-04-14 16:18 | XMS_ITS | Clinical Summary ---
Author Organization [facility] Address [address] [place] [address] Phone Care Team Providers Care Bag Machine Adjuster Name Role Phone Thomas Kam Primary Care Provider [phone] Allergies Active Allergy Reactions Criticality Noted Date Comments Acetaminophen Itching 10/13/2024 Flu Vaccine [id number](36mo,Up) 10/13/2024 GUILLAN BARRE SYNDROME Lamotrigine Rash 10/13/2024 Lobster Anaphylaxis High 10/13/2024 Oxycodone-Acetaminophen Hives 10/13/2024 Ketorolac Rash 10/13/2024 Tramadol Seizures High 10/13/2024 Medications albuterol HFA (PROAIR HFA ; PROVENTIL HFA ; VENTOLIN HFA) 90 mcg/actuation inhaler INHALE DANDO 2 SOPLIDOS CADA 4 HORAS CUANDO SEA NECESARIO PARA LA SIBILANCIA OR PARA LA FALTA Active alcohol swabs pads, medicated USE TO TEST BLOOD SUGAR ONCE DAILY Active atorvastatin (LIPITOR) 80 mg tablet TOME 1 TABLETA POR VIA ORAL TODOS [place] 09/30/19 25 Active azelastine (OPTIVAR) 0.05 % ophthalmic solution PONGA EMILY GOTA EN EFRAIN AUGUSTUS DOS VECES AL CARLO 09/29/19 25 Active Bifidobacterium infantis 4 mg capsule Take 4 mg by mouth daily. 10/08/19 25 Active OneTouch Ultra Test test strip USE TO TEST BLOOD SUGAR ONCE DAILY (ONETOUCH VERIO OR ULTRA 2, WHICHEVER IS APPROVED) E11.9 Active cholecalciferol (VITAMIN D-3) 50 mcg (2,000 unit) capsule TOME 1 C PSULA POR V A ORAL TODOS LOS D Active Prezcobix 800-150 mg-mg per tablet TOME 1 TABLETA POR V A ORAL TODOS LOS D Active famotidine (PEPCID) 20 mg tablet TOME DOS TABLETAS POR VIA ORAL TODOS [place] 10/14/19 25 Active fondaparinux (ARIXTRA) 7.5 mg/0.6 mL syringe INJECT 0.6 ML(7.5 MG) INTO THE SKIN ONCE DAILY 09/01/19 25 Active lacosamide (VIMPAT) 100 mg tablet TOME 1 TABLETA POR V A ORAL DOS VECES AL D A Active lancets (OneTouch Delica Plus Lancet) 33 gauge USE TO TEST BLOOD SUGAR ONCE DAILY. (ONETOUCH DELICA PLUS 33G) E11.9 Active morphine (MSIR) 15 mg tablet Take 1 tablet (15 mg total) by mouth every 6 hours as needed. 10/08/19 25 Active ondansetron ODT (ZOFRAN-ODT) 4 mg disintegrating tablet LET 1 TABLET DISSOLVE UNDER THE TONGUE THREE TIMES DAILY NEEDED FOR NAUSEA OR VOMITING. 10/13/19 25 Active pantoprazole (PROTONIX) 40 mg EC tablet TOME 1 TABLETA POR VIA ORAL TODOS [place] Active Isentress HD 600 mg tablet TOME 1 TABLETA POR V A ORAL DOS VECES AL D A Active tenofovir disoproxil fumarate (VIREAD) 300 mg tablet TOME 1 TABLETA POR V A ORAL TODOS LOS D Active traZODone (DESYREL) 150 mg tablet TOME 1 TABLETA POR V A ORAL TODOS LOS D AL ACOSTARSE Active warfarin (COUMADIN) 5 mg tablet TAKE 1 TABLET DAILY DIRECTED BY THE [facility] 10/17/19 25 Active warfarin (COUMADIN) 10 mg tablet TAKE 1 TABLET BY MOUTH ONCE DAILY STOP 5 MG 10/30/19 25 Active Ozempic 1 mg/dose (4 mg/3 mL) injection pen INJECT 1 MG INTO THE SKIN ONCE A WEEK EVERY SUNDAY Active raltegravir (Isentress HD) 600 mg tablet Take 1 tablet (600 mg total) by mouth. 04/08/20 24 Active metoclopramide (REGLAN) 10 mg tablet PLEASE SEE ATTACHED FOR DETAILED DIRECTIONS 08/08/20 24 Active levothyroxine sodium (TIROSINT) 25 mcg capsule Take by mouth. Active dicyclomine (BENTYL) 20 mg tabletIndications :Functional diarrhea,Lower abdominal pain Take 1 tablet (20 mg total) by mouth 4 (four) times a day. 360 each 3 12/11/19 25 026 Active hydrocortisone (ANUSOL-HC) 2.5 % rectal creamIndications: Rectal pain Insert into the rectum 2 (two) times a day for 10 days. 30 g 1 01/13/20 25 Active hyoscyamine (ANASPAZ,LEVSIN) 0.125 mg tabletIndications :Lower abdominal pain TAKE 1 TABLET (0.125 MG TOTAL) BY MOUTH 2 (TWO) TIMES A DAY. 180 tablet 1 01/27/20 25 Active Active Problems Problem Noted Date Diagnosed Date C. difficile diarrhea 12/10/2024 HIV (human immunodeficiency virus infection) ([facility] V24, [facility] V28) 11/12/2024 Hypothyroid 11/12/2024 Epilepsy ([facility] V24, [facility] V28) 11/12/2024 DVT (deep venous thrombosis) ([facility] V24, [facility] V28) 11/12/2024 Deep vein thrombosis (DVT) o f both lower extremities ([facility] V24, [facility] V28) 11/12/2024 HLD (hyperlipidemia) 11/12/2024 Type 2 diabetes mellitus, [facility] long-term current use of insulin ([facility] V24, [facility] V28) 11/12/2024 Diverticulitis large intesti ne w/o perforation or abscess w/bleeding 11/12/2024 Assessment & Plan (11/12/2024 4:48 PM EDT): abdomen pelvic CT September noted mild uncomplicated sigmoid diverticulitis Abdomen pelvic CT October noted minimal fat stranding adjacent to sigmoid colon Orders: metroNIDAZOLE (FLAGYL) 250 mg tablet; Take 1 tablet (250 mg total) by mouth 3 (three) times a day for 10 days. Do not use mouth wash or consume alcohol until 48 hours after last dose sulfamethoxazole-trimethoprim (BACTRIM DS,SEPTRA DS) 800-160 mg per tablet; Take 1 tablet by mouth 2 (two) times a day for 10 days. HPV (human papilloma virus) anogenital infection 11/12/2024 Encounters Date Type Department Care Team Description 03/23/2025 Telephone Gastroenterology - [address] [phone] Pablo Yip PA 01/16/2025 Telephone Gastroenterology - [address] [phone] Pablo Yip PA 01/14/2025 7:56 AM EDT - 01/14/2025 11:59 PM EDT Hospital Encounter [facility] CT Scan [address] [place] [phone] Left sided abdominal pain; Rectal pain Discharge Disposition: Home or Self Care 01/13/2025 Telephone Gastroenterology - [address] [phone] Kamala Juarez [place] 01/12/2025 1:50 PM EDT Office Visit Gastroenterology - [address] [phone] Pablo Yip PA Left sided abdominal pain (Primary Dx); Rectal pain; Diarrhea, unspecified type from Last 3 Months Surgical History Surgery Date Site/Laterality Comments AAA REPAIR OTHER SURGICAL HISTORY Right lower extremtity bypass COLON SURGERY sigmoid resection due to diverticulitis HERNIA REPAIR Social History Tobacco Use Types Packs/Day Years Used Date Smoking Tobacco: Former Cigarettes Tobacco Cessation:Counseling Given: Not Answered Alcohol Use Standard Drinks/Week Comments Never 0 (1 standard drink = 0.6 oz pur e alcohol) Sex and Gender Information Value Date Recorded Sex Assigned at Male 10/13/2024 3:12 PM EST Legal Sex Male 6:15 PM EST Gender Identity Male 10/13/2024 3:12 PM EST Sexual Orientation Lesbian or Chaidez 01/13/2025 5: 56 PM EDT Obstetrics History Last Filed Vital Signs Vital Sign Reading Time Taken Comments Blood Pressure 112/68 11/18/2024 10:44 AM EDT Pulse 72 11/18/2024 10:44 AM EDT Temperature 36.8 C (98.2 F) 10/13/2024 6:22 PM EST Respiratory Rate 18 10/13/2024 6:22 PM EST Oxygen Saturation 100% 10/13/2024 6:22 PM EST Inhaled Oxygen Concentration - - Weight 81.6 kg (180 lb) 01/12/2025 1:44 PM EDT Height 175.3 cm (5' 9 ) 01/12/2025 1:44 PM EDT Body Mass Index 26.58 01/12/2025 1:44 PM EDT Plan of Treatment Upcoming Encounters Date Type Department Care Team (Late st Contact Info) Description 05/21/2025 1:00 PM EDT Office Visit Gastroenterology - [address] [place] [phone] Pablo Yip PA [address] [facility] [address] [place] [address] Health Maintenance Due Date Last Done Comments Diabetes: Annual Foot Exam 1983 Diabetes: Annual Retina Eye Exam 1983 Medicare Annual Wellness Visit 08/05/2022 Social Influencers of Health Screening 08/05/2022 COVID-19 Vaccine ( season) 2024 04/03/2022, 09/02/2021, 08/08/2021 Depression Screening 08/27/2024 Influenza Vaccine (#1) 2025 07/29/2013, 2009 Diabetes: Blood Sugar Control Test (HGBA1C) 06/10/2025 12/09/2024, 03/04/2024 Diabetes: Annual Urine Albumin-Creatinine Ratio (uACR) 12/09/2025 12/09/2024, 11/05/2021, 11/05/2021 Diabetes: Annual GFR (Glomerular Filtration Rate) 12/09/2025 12/09/2024, 10/29/2024, 10/13/2024, Additional history exists Hypertension/CHF/CAD Annual BMP Blood Test 12/09/2025 12/09/2024, 10/29/2024, 10/13/2024, Additional history exists Meningococcal ACWY Vaccine (4 - Risk 2-dose series) 01/24/2029 01/25/2024, 11/18/2018, 06/19/2017 Cholesterol Screening (Lipid Panel) 12/09/2029 12/09/2024, 12/09/2024, 08/30/2023, Additional history exists Colorectal Cancer Screening: Colonoscopy 09/20/2031 09/20/2021 DTaP,Tdap,and Td Vaccines (4 - Td or Tdap) 01/24/2034 01/25/2024, 09/30/2013, 06/05/2003 Hepatitis A Vaccines Completed 11/16/2003, 03/27/20 03 Zoster Vaccines Completed 06/29/2021, 05/18/2021 MMR Vaccines Aged Out 05/04/2022, 04/03/2022 No lo nger eligible based on patient's age to complete this topic Hepatitis B Vaccines Completed 10/06/2022, 08/03/2022, 10/28/2013, Additional history exists Pneumococcal Vaccine: 50+ Years Completed 08/08/2024, 04/11/2019, 02/03/2017, Additional history exists Hepatitis C Screening Completed 12/09/2024 , 01/25/2024, 02/14/2019, Additional history exists HIB Vaccines Aged Out No longer eligi ble based on patient's age to complete this topic HPV Vaccines Aged Out No longer eligi ble based on patient's age to complete this topic IPV Vaccines Aged Out No longer eligi ble based on patient's age to complete this topic Meningococcal B Vaccine Aged Out No l onger eligible based on patient's age to complete this topic RSV Immunization Patients Under 20 months Aged Out No longer eligible based on patient's age to complete this topic Varicella Vaccines Aged Out No longer eligible based on patient's age to complete this topic Procedures Procedure Name Priority Date/Time Associated Diagnosis Comments CT ABDOMEN PELVIS W CONTRAST STAT 01/14/2025 9:58 AM EDT Left sided abdominal pain Rectal pain COMPREHENSIVE METABOLIC PANEL STAT 10/13/2024 3:03 PM EST HM COLONOSCOPY Routine 09/20/2021 from Last 3 Months or Most Recently Relevant to Health Maintenance Results * CT Abdomen Pelvis w Contrast (01/14/2025 9:58 AM EDT) Anatomical Region Laterality Modality Body Computed Tomogra phy 01/14/2025 10:2 2 AM EDT Impressions 01/14/2025 10:31 AM EDT Similar postoperative changes with rectosigmoid anastomosis. No evidence of acute diverticulitis. No bowel wall thickening, free air, free fluid or abscess formation. -------- FINAL REPORT -------- Dictated By: Bradley Hernandez Dictated Date: 01/14/2025 10:22 ET Assigned Physician: Bradley Hernandez Reviewed and Electronically Signed By: Bradley Hernandez Signed Date: 01/14/2025 10:31 ET Workstation ID: [id number] Transcribed By: Self Edit Transcribed Date: 01/14/2025 10:22 ET Narrative 01/14/2025 10:31 AM EDT INDICATION: Left lower quadrant pain, diverticulitis TECHNIQUE: CT scan of the abdomen and pelvis obtained with a total of 90 cc of Isovue-370 administered intravenously without incident. Oral contrast administered. Scanner: [employer] 128 slice VCT Dose reduction technique: ASIR (Adaptive statistical iterative reconstruction) and/or AEC (automated exposure control) Dose: total exam DLP 1018.68 mGY per cm COMPARISON: Compared to multiple prior studies most recent from October 13, 2024. FINDINGS: Lung bases are clear. Bony structures are unremarkable for the patient's age. Liver demonstrates mild cirrhotic morphology. Spleen, pancreas, adrenal glands and kidneys are within normal limits. Status post cholecystectomy. Stomach well-opacified and mildly distended but otherwise unremarkable. Small bowel loops are partially opacified and normal in course and caliber. Ileal loops are not opacified. Terminal ileum unremarkable. Postoperative changes in the right lower quadrant likely reflect appendectomy. Colon normal in course and caliber. Ascending, transverse and descending colon within normal limits. Postoperative changes noted with rectosigmoid anastomosis. Residual sigmoid colon decompressed and demonstrates solitary diverticulum without findings to suggest acute diverticulitis. Minimal infiltrative changes with subcentimeter inferior mesenteric node adjacent to the anastomosis, similar to the prior study. No free air or free fluid. No extraluminal fluid collection to suggest abscess. Mesh anchors noted along the anterior abdominal above the umbilicus. No recurrent hernia. Urinary bladder decompressed. Grossly normal prostate gland for the patient's age. Postoperative changes consistent with aortoiliac endograft placement without residual aneurysm. Procedure Note Bradley Hernandez MD - 01/14/2025 INDICATION: Left lower quadrant pain, diverticulitis TECHNIQUE: CT scan of the abdomen and pelvis obtained with a total of 90cc of Isovue-370 administered intravenously without incident. Oralcontrast administered. Scanner: [employer] 128 slice VCT Dose reduction technique: ASIR (Adaptive statistical iterativereconstruction) and/or AEC (automated exposure control) Dose: total exam DLP 1018.68 mGY per cm COMPARISON: Compared to multiple prior studies most recent from 2024. FINDINGS: Lung bases are clear. Bony structures are unremarkable for the patient's age. Liver demonstrates mild cirrhotic morphology. Spleen, pancreas, adrenalglands and kidneys are within normal limits. Status postcholecystectomy. Stomach well-opacified and mildly distended but otherwise unremarkable.Small bowel loops are partially opacified and normal in course andcaliber. Ileal loops are not opacified. Terminal ileum unremarkable.Postoperative changes in the right lower quadrant likely reflectappendectomy. Colon normal in course and caliber. Ascending, transverseand descending colon within normal limits. Postoperative changes notedwith rectosigmoid anastomosis. Residual sigmoid colon decompressed anddemonstrates solitary diverticulum without findings to suggest acutediverticulitis. Minimal infiltrative changes with subcentimeter inferiormesenteric node adjacent to the anastomosis, similar to the prior study.No free air or free fluid. No extraluminal fluid collection to suggestabscess. Mesh anchors noted along the anterior abdominal above the umbilicus. Norecurrent hernia. Urinary bladder decompressed. Grossly normal prostate gland for the patient's age. Postoperative changes consistent with aortoiliac endograft placementwithout residual aneurysm. IMPRESSION: Similar postoperative changes with rectosigmoid anastomosis. No evidenceof acute diverticulitis. No bowel wall thickening, free air, free fluid orabscess formation. -------- FINAL REPORT -------- Dictated By: Bradley Hernandez Dictated Date: 01/14/2025 10:22 ET Assigned Physician: Bradley Hernandez Reviewed and Electronically Signed By: Bradley Hernandez Signed Date: 01/14/2025 10:31 ET Workstation ID: [id number] Transcribed By: Self Edit Transcribed Date: 01/14/2025 10:22 ET us Pablo PEREZ IMG CT PROCEDURES Final Resu lt * (ABNORMAL) Comprehensive metabolic panel (10/13/2024 3:03 PM EST) Sodium 138 133 - 145 mmol/L LAB CHEMISTRY METHOD 10/13/2024 3:56 PM [facility] Potassium 3.9 3.5 - 5.5 mmol/L LAB CHEMISTRY METHOD 10/13/2024 3:56 PM [facility] Chloride 107 96 - 110 mmol/L LAB CHEMISTRY METHOD 10/13/2024 3:56 PM [facility] CO2 22 21 - 32 mmol/L LAB CHEMISTRY METHOD 10/13/2024 3:56 PM [facility] Anion Gap 9 3 - 11 LAB CHEMISTRY METHOD 10/13/2024 3:56 PM [facility] Glucose 113(H) 70 - 100 mg/dL LAB CHEMISTRY METHOD 10/13/2024 3:56 PM [facility] BUN 10 5 - 25 mg/dL LAB CHEMISTRY METHOD 10/13/2024 3:56 PM [facility] Creatinine 1.30 0.70 - 1.30 mg/dL LAB CHEMISTRY METHOD 10/13/2024 3:56 PM [facility] eGFR 67 >=60 mL/min/1. 73m2 LAB CHEMISTRY METHOD 10/13/2024 3:56 PM [facility] Comment:Calculation based on the Chronic Kidney Disease Epidemiology Collaboration (CKD-EPI) equation refit without adjustment for race. BUN/Creatinine Ratio 7.7 LAB CHEMISTRY METHOD 10/13/2024 3:56 PM [facility] Calcium 9.5 8.5 - 10.5 mg/dL LAB CHEMISTRY METHOD 10/13/2024 3:56 PM EST [facility] AST (SGOT) 41 10 - 42 unit/L LAB CHEMISTRY METHOD 10/13/2024 3:56 PM [facility] ALT (SGPT) 48 10 - 60 unit/L LAB CHEMISTRY METHOD 10/13/2024 3:56 PM [facility] Alkaline Phosphatase 146(H) 42 - 121 unit/L LAB CHEMISTRY METHOD 10/13/2024 3:56 PM [facility] Total Protein 8.9(H) 6.0 - 8.0 g/dL LAB CHEMISTRY METHOD 10/13/2024 3:56 PM [facility] Albumin 3.8 3.2 - 5.0 g/dL LAB CHEMISTRY METHOD 10/13/2024 3:56 PM [facility] Total Bilirubin 0.4 0.0 - 1.4 mg/dL LAB CHEMISTRY METHOD 10/13/2024 3:56 PM [facility] Blood Venous blood specimen / Unknown Venipuncture / Unknown 10/13/2024 3:03 PM EST 10/13/2024 3:26 PM EST Devin Mo MD LAB BLOOD ORDERABLES Agueda l Result [facility] [address] [place] [address], * Colonoscopy (09/20/2021) Colonoscopy abnormal, abstracted Anatomical Region Laterality Modality Other Historical Provider HEALTH MAINTENANCE Final Result from Last 3 Months or Most Recently Relevant to Health Maintenance Insurance MEDICARE [place] Advance Directives Documents on File Type Date Recorded 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
[2025-04-14 19:59] VITALS: BP 110/69; PULSE 74; RESP 15; TEMP 36.8; O2SAT 98
--- NOTE | 2025-04-14 20:47 | MHC.EDTECH ---
@[id number] Urine cup was provided to the patient, directions to the rest room. Informed him to use call arnold so sample can be set down.
--- NOTE | 2025-04-14 21:03 | PC.NURSE ---
pt a difficult stick, a waiting Ultra sound IV to medicated pt.
--- NOTE | 2025-04-14 21:17 | PC.NURSE ---
ultra sound Iv placed by Jase Boogie, mediated per oct, pt awaiting to go CT Scan
[2025-04-14] MEDS: iohexoL 350 MG/ML 100 ML INFUS..BTL 85 ML IV (21:32)
[2025-04-14 22:01] VITALS: BP 96/56; PULSE 70; TEMP 36.9; O2SAT 96
[2025-04-14 22:37] LABS: Appearance Urine Clear; Glucose Urine UA 500 mg/dL (Negative); PH 5.5 (5.0-9.0); Specific Gravity - Urine >= 1.030 (1.005-1.025)
--- NOTE | 2025-04-14 23:15 | PC.NURSE ---
Medicated per Mar, reviewed discharge instructions with pt. pt verbalized under standing, no sign of distress upon discharge.
[2025-04-14 23:16] VITALS: BP 96/56; PULSE 70; RESP 20; TEMP 36.9; O2SAT 96
== END 2025-04-14 23:17 | disposition home or self-care (01) ==
PROVIDERS: Physician Assistant Medical; Emergency Provider Emergency Medicine; PCP Dentist General Practice
DX: R10.30 Lower abdominal pain, unspecified (principal); M79.605 Pain in left leg; B20 Human immunodeficiency virus [HIV] disease; E11.9 Type 2 diabetes mellitus without complications; I71.40 Abdominal aortic aneurysm, without rupture, unspecified; Z79.01 Long term (current) use of anticoagulants; Z79.899 Other long term (current) drug therapy; Z86.718 Personal history of other venous thrombosis and embolism
CPT/HCPCS: 36415; 74177; 80053; 81001; 83735; 85025; 85610; 93971; 96361; 96372; 96374; 96375; 96376; 99284; J1650; J2270; J2405; Q9967

== ENCOUNTER → 2025-04-14 13:03 | Outpatient (BNV) | payer MEDICARE, MEDICAID, SELFPAY | PROVIDERS: PCP Dentist General Practice; Visit Provider Radiology Diagnostic Radiology | DX: R10.30 Lower abdominal pain, unspecified (principal) | CPT/HCPCS: 74177 ==

== ENCOUNTER 2025-04-28 13:10 | Emergency (ER) | payer MEDICARE, MEDICAID, SELFPAY ==
--- NOTE | ~2025-04-28 | CT_ITS ---
EXAMINATION: CT ABDOMEN AND PELVIS WITH CONTRAST CLINICAL INFORMATION: Lower quadrant abdominal pain. Rule out proctitis/ diverticulitis. COMPARISON: 04/14/2025, 09/25/2024. TECHNIQUE: Multidetector volumetric images were obtained from the superior aspect of the liver through the pubic symphysis following administration 85 mL of Omnipaque 350 intravenous contrast. Sagittal and coronal reformatted images were obtained on the technologist's workstation. Oral contrast: No This CT examination was performed using dose optimization techniques as appropriate, variously including the following: *Automated exposure control *Adjustment of mA and/or kV according to patient size (this includes techniques or standardized protocols for targeted exams where dose is matched to indication/reason for exam; i.e. extremities or head) *Use of iterative reconstruction technique FINDINGS: LUNG BASES: Lung bases are clear. Heart size is normal. There are no effusions. LIVER, GALLBLADDER, AND BILIARY TREE: The liver is normal in size, shape, and attenuation. No focal hepatic lesion or biliary ductal dilatation is present. The gallbladder is surgically absent. PANCREAS: Unremarkable. SPLEEN: There are splenic granulomata. Otherwise normal. ADRENAL GLANDS: Unremarkable. KIDNEYS AND URETERS: The kidneys are normal in size, shape, and attenuation. No hydronephrosis, hydroureter, or calculi seen. No perinephric stranding. BLADDER: Minimal wall thickening is present. Otherwise normal. GASTROINTESTINAL TRACT: There has been a rectosigmoid anastomosis. The anastomotic site appears unremarkable. The rectum appears normal. The sigmoid colon appears normal. The remainder of the colon is normal in course and caliber. No inflammatory changes. There has been an appendectomy. The small bowel is normal in caliber and course. The stomach and duodenum appear normal. ABDOMINAL WALL: There has been prior hernia repair. There is no recurrent hernia. LYMPH NODES: Normal. VASCULAR: There is an aorto biiliac stent graft in place. PELVIC VISCERA: The prostate is normal. OSSEOUS STRUCTURES: There is no suspicious lytic or blastic bone lesion. No acute finding. CT/CT abdomen pelvis w IV con IMPRESSION: 1. There are no acute findings of the abdomen or pelvis. 2. There are ancillary findings as discussed. Electronically signed by: David Heaton MD 04/28/2025 04:07 PM EDT
--- OUTSIDE RECORDS SUMMARY | 2025-04-28 10:20 | XMS_ITS | Encounter Summary ---
Author Organization [facility] Address [address] [place] [address] Care Team Providers Care Tip Mender Name Role Phone Thomas Kam Primary Care Provider [phone] Reason for Visit * Reason Comments Hospital Follow Up Encounter Details Date Type Department Care Team ([facility] Contact Info) Description 04/28/2025 10:20 AM EDT Office Visit [address] [phone] Dede Christensen NP [address] [place] [id number] Susy Álvarez [address] [place] [phone] Social History Tobacco Use Types Packs/Day Years [...] Orientation Chaidez 08/14/2024 10 :51 AM PST documented as of this encounter Last Filed Vital Signs Vital Sign Reading Time Taken Comments Blood Pressure 110/80 04/28/2025 10:37 AM EDT Pulse 78 04/28/2025 10:37 AM EDT Temperature 36.9 C (98.4 F) 04/28/2025 10:37 AM EDT Respiratory Rate 16 04/28/2025 10:37 AM EDT Oxygen Saturation 98% 04/28/2025 10:37 AM EDT Inhaled Oxygen Concentration - - Weight 80.3 kg (177 lb) 04/28/2025 10:37 AM EDT Height 172.7 cm (5' 8 ) 04/28/2025 10:37 AM EDT Body Mass Index 26.91 04/28/2025 10:37 AM EDT documented in this encounter Miscellaneous Notes * Patient Instructions - Dede Christensen NP - 04/28/2025 11:11 AM EDT If you are not able to keep your appointment please call 24-48 hours before your appointment to cancel or reschedule. Encounter Start 05/21/2025 1:00 PM Encounter End 05/21/2025 1:20 PM Admission Type -- Patient Class: -- Authorization Number: -- Pre-Certification Number: -- Providers Pablo Yip PA Gastroenterology [address] [place] [id number] documented in this encounter Plan of Treatment Upcoming Encounters Date Type Department Care Team (Late st Contact Info) Description 08/31/2025 9:00 AM EST Office Visit [facility] [address] [place] [address] Nicolette Conley [address] [place] [address] Scheduled Orders Name Type Priority Associated Diagnoses Orde r Schedule H PYLORI UREA BREATH TEST Breath BREATH Routine Lab Routine Abdominal pain, unspecified abdominal location Abdominal bloating Ordered: 04/28/2025 documented as of this encounter Visit Diagnoses Diagnosis Hospital discharge follow-up- Primary Other follow-up examination Abdominal pain, unspecified abdominal location Abdominal bloating Flatulence, eructation, and gas pain documented in this encounter Additional Health Concerns Assessment Noted Time PHQ-9 Depression Total Score: 0 11/21/19 25 2:01 PM PDT A Depression follow-up plan has been documented for the patient 11/20/2024 6:34 PM PDT documented as of this encounter Care Teams Tip Mender Relationship Specialty Start Date End Date Thomas Kam PA [address] [place] [address] PCP - General Internal Medicine 02/22/17 documented as of this encounter
[2025-04-28 13:35] VITALS: BP 124/77; PULSE 93; RESP 18; TEMP 36.6; O2SAT 97; BMI 26.6
--- NOTE | 2025-04-28 13:35 | ED.ABDPAIN ---
HPI - Abdominal Pain General Chief Complaint: Abdominal Pain Stated Complaint: Abd pain L side, back pain Time Seen by Provider: 04/28/25 14:49 Source: patient, RN notes reviewed and old records reviewed Mode of arrival: ambulatory Limitations: language barrier History of Present Illness ED Provider: yfn martinez HPI narrative: 49 y/o M here with abd pain. PMH sig for HIV on ati-retroviral therapy, AAA, seizure disorder, DVTs and hemorrhagic proctitis. He is on warfarin managed via [facility] coumadin clinic. He presented last here on 04/14/25 for similiar CC of abd pain with n/v and left sided leg pain. From provider's Dr. Blunt ED note in regards to CT abd/ pelvis The CT scan was read as possibly showing a very small area of inflammation or infection at the anastomosis of his sigmoid colon. Apparently the patient has a partial colectomy because of diverticulitis with a reanastomosis. Because of this finding the patient will be placed on a course of Augmentin . Given 8 day script. Completed 2 days ago. Related Data Home Medications ?Medication ?Instructions ?Recorded ?Confirmed albuterol sulfate 90 mcg/actuation 2 inh inhalation Q4H PRN 06/26/24 09/25/24 aerosol inhaler (Ventolin HFA) wheezing/sob atorvastatin 80 mg tablet 80 mg PO DAILY 06/26/24 09/25/24 cholecalciferol (vitamin D3) 50 50 mcg PO DAILY 06/26/24 09/25/24 mcg (2,000 unit) capsule darunavir 800 mg-cobicistat 150 mg 1 tab PO DAILY 06/26/24 09/25/24 tablet (Prezcobix) empagliflozin 25 mg tablet 25 mg PO DAILY 06/26/24 09/25/24 (Jardiance) famotidine 20 mg tablet 40 mg PO DAILY 06/26/24 09/25/24 lacosamide 100 mg tablet (Vimpat) 100 mg PO BID 06/26/24 09/25/24 levothyroxine 25 mcg tablet 25 mcg PO DAILY@0600 06/26/24 09/25/24 pantoprazole 40 mg tablet,delayed 40 mg PO DAILY@0630 06/26/24 09/25/24 release raltegravir 600 mg tablet 600 mg PO BID 06/26/24 09/25/24 ([facility]) tenofovir disoproxil fumarate 300 300 mg PO DAILY 06/26/24 09/25/24 mg tablet trazodone 150 mg tablet 150 mg PO BEDTIME 06/26/24 09/25/24 semaglutide 1 mg/dose (4 mg/3 mL) 1 mg subcut TU 09/25/24 09/25/24 subcutaneous pen injector (Ozempic) warfarin 10 mg tablet 10 mg PO DAILY 09/25/24 09/25/24 Previous Rx's ?Medication ?Instructions ?Recorded fondaparinux 7.5 mg/0.6 mL 7.5 mg (0.6 mL) subcut Q24H #0 mL 09/30/24 subcutaneous solution syringe amoxicillin 875 mg-potassium 1 tab PO BID #16 tabs 04/14/25 clavulanate 125 mg tablet ondansetron HCl 4 mg tablet 4 mg PO Q8H #20 tabs 04/28/25 Allergies Allergy/AdvReac Type Severity Reaction Status Date / Time influenza virus vaccine, Allergy Severe GUILLIAN Verified 04/28/25 13:36 specific (FLU VACCINE) BARRE HX. tramadol (TRAMADOL) Allergy Severe SEIZURES Verified 04/28/25 13:36 acetaminophen (From PERCOCET) Allergy Intermediate ITCHING Verified 04/28/25 13:36 carbamazepine (From TEGRETOL) Allergy Intermediate HALLUCINATI Verified 04/28/25 13:36 ONS lamotrigine (From LAMICTAL) Allergy Intermediate ITCHING Verified 04/28/25 13:36 metoclopramide (From REGLAN) Allergy Intermediate ITCHY Verified 04/28/25 13:36 oxycodone (From PERCOCET) Allergy Intermediate ITCHING Verified 04/28/25 13:36 SEAFOOD Allergy Severe ANAPHYLAXIS Uncoded 04/14/25 13:03 Review of Systems Review of Systems Constitutional : No Fever, No Chills ENT/Mouth : No sore throat, No Rhinorrhea Eyes: No Eye Pain, No Swelling, No Redness Cardiovascular : No Chest Pain, No SOB Respiratory : No Cough, No Sputum Gastrointestinal : +Nausea, No Vomiting, = Diarrhea, +abdominal Pain + rectal pain Genitourinary : No Dysuria, No Hematuria Musculoskeletal : No joint pain, No Myalgias, No Joint Swelling Skin : No Skin Lesions, positive skin rash Neuro : No Weakness, No Numbness, No Headache All other systems reviewed and are negative [facility] Past Medical History Medical History Seizure Popliteal artery aneurysm AAA (abdominal aortic aneurysm) Left sided abdominal pain COVID-19 DVT (deep venous thrombosis) Diabetes Seizure disorder HIV (human immunodeficiency virus infection) Surgical History History of colon resection Status post cholecystectomy Status post laparoscopic appendectomy H/O fasciotomy S/P AAA (abdominal aortic aneurysm) repair S/P IVC filter Social History Social History Household Members: Spouse and Family Housing: House Do you presently have visiting nurse or other home services: No Alcohol intake: never Comment: pt refuses high fall risk precautions Patient Tobacco Use Status: Former Tobacco user Advance Directives: Yes Advance Directives on File: Yes Advance Directives Date on File: 09/26/24 service: No Physical Exam ED Vital Signs: Vital Signs - 24 hr 04/28/25 13:35 Temperature 97.9 F Pulse Rate 93 Respiratory Rate 18 Blood Pressure 124/77 Pulse Oximetry 97 Oxygen Delivery Method Room Air BMI result Body Mass Index 26.6 Appearance: Alert. Oriented X3. No acute distress. Eyes: Pupils equal, round and reactive to light. ENT: Pharynx normal. Neck: Normal inspection. Neck supple. CVS: Normal heart rate and rhythm. Pulses normal. Respiratory: No respiratory distress. Breath sounds normal. Abdomen: Soft tender left lower quadrant nontender rectal exam no blood noted no palpable mass noted normal BS no peritoneal signs noted Skin: Skin warm and dry. Normal skin color. Extremities: No lower extremity edema. No calf ttp FROM of extemities Neuro: Oriented X 3. Course Course Course Narrative: This is a Rapid Medical Examination (RME) performed by William Limon PA-C in triage. Full HPI, ROS, assessment and treatment plan per primary provider in the Main ED. Hx: 49 yo M hx of HIV, AAA, seizures here w/ lower abdominal pain, lower back pain, and rectal pain x2 days. pain worse w/ eating and sitting. Plan: labs, will defer imaging. Medical Decision Making Medical Decision Making MDM Narrative: 49-year-old female here today with multiple medical problems with rectal pain or abdominal pain x2 days. Patient has had a couple episodes of diarrhea. States he has seen a couple spots of blood in his stool but denies any bloody stool. Labs are unremarkable. Patient given a L of normal saline Dilaudid 1 mg IV along with Zofran [address] of abdomen and pelvis with IV contrast pending. For further evaluation and treatment. Questionable diverticulitis or proctitis. Patient states he has had falls in the past her a rectal exam on I feel no palpable masses or abscesses noted his vascular exam is also nontender so less likely proctitis. Patient's CT is unremarkable. Labs are unremarkable. Will discharge the patient home with some Zofran recommend him to follow up outpatient with his primary care doctor. Patient has multiple allergies to pain medication. He will follow up with his primary care doctor. Differential Diagnosis Differential Diagnoses: The differential diagnosis associated with the presentation includes (Diverticulitis colitis Obstruction Proctitis ) Lab Data 04/28/25 13:49 04/28/25 13:49 Labs: Lab Results 04/28/25 Range/Units 13:49 WBC 5.0 (4.8-10.8) X10*3/uL RBC 4.45 L (4.60-5.80) X10*6/uL Hgb 13.3 L (14.0-18.0) g/dl Hct 39.9 L (42.0-52.0) % MCV 89.7 (80.0-98.0) fL MCH 29.9 (27.0-33.0) pg MCHC 33.3 (31.0-36.0) g/dl RDW 14.7 (11.0-16.0) % Plt Count 186 (160-400) X10*3/uL MPV 9.2 L (9.4-12.4) fL Immature Gran % (Auto) 0.2 (0.0-0.4) % Neut % (Auto) 46.3 (45-73) % Lymph % (Auto) 45.5 H (20-40) % [place] % (Auto) 6.8 (2-11) % Eos % (Auto) 0.6 (0-4) % Baso % (Auto) 0.6 (0-2) % Lymph # (Auto) 2.3 (1.2-4.9) X10*3/uL [place] # (Auto) 0.3 (0.1-1.2) X10*3/uL Eos # (Auto) 0.0 (0.0-0.4) X10*3/uL Baso # (Auto) 0.0 (0.0-0.2) X10*3/uL Abs Immat Gran (auto) 0.01 (0.00-0.03) X10*3/uL Absolute Neuts (auto) 2.3 (2.0-8.3) x10*3/uL Absolute Nucleated RBC 0.000 (0.0-0.012) X10*3/uL Nucleated RBC % (auto) 0.0 (0.0-0.2) /100WBC Sodium 137 (135-145) mmol/L Potassium 3.9 (3.3-5.1) mmol/L Chloride 108 (96-108) mmol/L Carbon Dioxide 22 (22-29) mmol/L Anion Gap 11 L (12-20) BUN 12 (9-16) mg/dL Creatinine 1.12 (0.5-1.4) mg/dL Estim Creat Clear Calc 78.0 Estimated GFR > 60 Random Glucose 186 H (60-115) mg/dL Calcium 8.9 (8.4-10.2) mg/dL Magnesium 2.0 (1.6-2.6) mg/dL Total Bilirubin 0.4 (0.0-1.0) mg/dL AST 32 (5-37) U/L ALT 29 (0-40) U/L Alkaline Phosphatase 116 (39-117) U/L Total Protein 8.7 H (6.5-8.0) g/dL Albumin 4.2 (3.5-5.0) g/dL Lipase 37 (8-78) U/L Urine Color Yellow Urine Appearance Clear Urine pH 6.0 (5.0-9.0) Ur Specific [place] >= 1.030 H (1.005-1.025) Urine Protein Trace (Neg-Trace) mg/dL Urine Glucose (UA) >=1000 H (Negative) mg/dL Urine Ketones Trace (Negative) mg/dL Urine Blood Negative (Negative) Urine Nitrite Negative (Negative) Ur Leukocyte Esterase Negative (Negative) Urine RBC 0-2 (0-2) /HPF Urine WBC 0-5 (0-5) /HPF Ur Squamous Epith Cells 0-2 (0-2) /HPF Urine Bacteria None Seen (None Seen) Hyaline Casts 0-2 (0-2) /LPF Medications Administered Discontinued Medications Generic Name Dose Route Start Last Admin Trade Name Seb PRN Reason Stop Dose Admin Hydromorphone HCl 1 mg 04/28/25 15:11 04/28/25 15:28 Hydromorphone Hcl 1 Mg/Ml Syringe IVPUSH 04/28/25 15:12 1 mg ONCE ONE Administration Protocol Sodium Chloride 1,000 mls @ 999 mls/hr 04/28/25 15:11 04/28/25 15:24 Ns IV 04/28/25 16:11 999 mls/hr .Q1H1M ONE Administration Iohexol 100 ml 04/28/25 15:35 04/28/25 15:36 Iohexol 350 Mg/Ml 100 Ml Infus..Btl IV 04/28/25 15:36 85 ml ONCE ONE Administration Ondansetron HCl 4 mg 04/28/25 15:11 04/28/25 15:28 Ondansetron Hcl 4 Mg/2 Ml Vial IVPUSH 04/28/25 15:12 4 mg ONCE ONE Administration Discharge Plan Discharge Clinical Impression: Abdominal pain Patient Disposition: Home, Self-Care Additional Instructions: Call your primary care doctor to follow up for further evaluation and treatment. CAT scan is unremarkable. Your labs are unremarkable. Increase your fluid intake. Script written for Bobby. Prescriptions: New ondansetron HCl 4 mg tablet 4 mg PO Q8H Qty: 20 0RF No Action warfarin 10 mg tablet 10 mg PO DAILY Ozempic 1 mg/dose (4 mg/3 mL) pen injector 1 mg subcut TU fondaparinux 7.5 mg/0.6 mL Syringe 7.5 mg subcut Q24H Qty: 0 0RF amoxicillin-pot clavulanate 875-125 mg tablet 1 tab PO BID Qty: 16 0RF atorvastatin 80 mg tablet 80 mg PO DAILY famotidine 20 mg tablet 40 mg PO DAILY lacosamide [Vimpat] 100 mg tablet 100 mg PO BID levothyroxine 25 mcg tablet 25 mcg PO DAILY@0600 pantoprazole 40 mg tablet,delayed release (DR/EC) 40 mg PO DAILY@0630 trazodone 150 mg tablet 150 mg PO BEDTIME tenofovir disoproxil fumarate 300 mg tablet 300 mg PO DAILY cholecalciferol (vitamin D3) 50 mcg (2,000 unit) capsule 50 mcg PO DAILY Jardiance 25 mg tablet 25 mg PO DAILY Prezcobix 800-150 mg-mg tablet 1 tab PO DAILY Isentress HD 600 mg tablet 600 mg PO BID albuterol sulfate [Ventolin HFA] 90 mcg/actuation HFA aerosol inhaler 2 inh inhalation Q4H PRN (Reason: wheezing/sob) Print Language: Maltese
[2025-04-28 13:53] LABS: MANUAL DIFF FLAG NO
[2025-04-28 13:54] LABS: Hematocrit 39.9 % (42.0-52.0); Hemoglobin 13.3 g/dl (14.0-18.0); Imm Gran Abs Auto 0.01 X10*3/uL (0.00-0.03); Imm Gran Pct Auto 0.2 % (0.0-0.4); Lymphocytes Absolute Auto 2.3 X10*3/uL (1.2-4.9); Mean Corpuscular HGB Conc 33.3 g/dl (31.0-36.0); Mean Corpuscular Hemoglobin 29.9 pg (27.0-33.0); Mean Corpuscular Volume 89.7 fL (80.0-98.0); NRBC Abs Auto 0.000 X10*3/uL (0.0-0.012); NRBC Pct Auto 0.0 /100WBC (0.0-0.2); Platelet Count 186 X10*3/uL (160-400); Red Blood Count 4.45 X10*6/uL (4.60-5.80); White Blood Count 5.0 X10*3/uL (4.8-10.8)
[2025-04-28 13:55] LABS: Appearance Urine Clear; Glucose Urine UA >=1000 mg/dL (Negative); PH 6.0 (5.0-9.0); Specific Gravity - Urine >= 1.030 (1.005-1.025); UMIC TRIGGER UACC YES
[2025-04-28 14:10] LABS: Alanine Aminotransferase 29 U/L (0-40); Albumin Level 4.2 g/dL (3.5-5.0); Alkaline Phosphatase 116 U/L (39-117); Anion Gap 11 (12-20); Aspartate Amino Transferase 32 U/L (5-37); Blood Urea Nitrogen 12 mg/dL (9-16); Calcium 8.9 mg/dL (8.4-10.2); Carbon Dioxide 22 mmol/L (22-29); Chloride 108 mmol/L (96-108); Creatinine Clr Calc Pharmacy 78.0; Estimated Glomerular Filt Rate > 60; Lipase 37 U/L (8-78); Magnesium 2.0 mg/dL (1.6-2.6); Potassium 3.9 mmol/L (3.3-5.1); Sodium 137 mmol/L (135-145); Total Protein 8.7 g/dL (6.5-8.0)
[2025-04-28] MEDS: iohexoL 350 MG/ML 100 ML INFUS..BTL IV (15:36)
--- OUTSIDE RECORDS SUMMARY | 2025-04-28 16:04 | XMS_ITS | Clinical Summary ---
Author Organization [facility] Address [address] [place] [address] Phone Care Team Providers Care Outside Contractor Sales Name Role Phone Thomas Kam Primary Care Provider [phone] Allergies Active Allergy Reactions Criticality Noted Date Comments Acetaminophen Itching 10/13/2024 Flu Vaccine Cl0446-06(36mo,Up) 10/13/2024 GUILLAN BARRE SYNDROME Lamotrigine Rash 10/13/2024 [...] diarrhea 12/10/2024 HIV (human immunodeficiency virus infection) ([facility] V24, [facility] V28) 11/12/2024 Hypothyroid 11/12/2024 Epilepsy ([facility] V24, [facility] V28) 11/12/2024 DVT (deep venous thrombosis) ([facility] V24, [facility] V28) 11/12/2024 Deep vein thrombosis (DVT) o f both lower extremities ([facility] V24, [facility] V28) 11/12/2024 HLD (hyperlipidemia) 11/12/2024 Type 2 diabetes mellitus, [facility] long-term current use of insulin ([facility] V24, [facility] V28) 11/12/2024 Diverticulitis large intesti ne w/o [...] Team Description 03/23/2025 Telephone Gastroenterology - [address] [place] [phone] Pablo Yip PA from Last 3 Months Surgical History Surgery [...] EDT Office Visit Gastroenterology - [address] [place] [address] [address] [place] [phone] Pablo Yip PA [address] [place] [phone] Health Maintenance Due Date Last Done Comments Diabetes: Annual Foot Exam 1983 Diabetes: Annual Retina Eye Exam 1983 Medicare Annual Wellness Visit 08/05/2022 Social Influencers of Health Screening 08/05/2022 Depression Screening 08/27/2024 COVID-19 Vaccine ( season) 2025 04/03/2022, 09/02/2021, 08/08/2021 Influenza Vaccine (#1) 2025 07/29/2013, 2009 Diabetes: [...] Associated Diagnosis Comments COMPREHENSIVE METABOLIC PANEL STAT 10/13/2024 3:03 PM EST HM COLONOSCOPY Routine 09/20/2021 from Last 3 Months or Most Recently Relevant to Health Maintenance Results * (ABNORMAL) Comprehensive metabolic panel (10/13/2024 3:03 PM EST) Sodium 138 133 - 145 mmol/L LAB CHEMISTRY METHOD 10/13/2024 3:56 PM [facility] Potassium 3.9 3.5 - 5.5 mmol/L LAB CHEMISTRY METHOD 10/13/2024 3:56 PM [facility] Chloride 107 96 - 110 mmol/L LAB CHEMISTRY METHOD 10/13/2024 3:56 PM [facility] CO2 22 21 - 32 mmol/L LAB CHEMISTRY METHOD 10/13/2024 3:56 PM [facility] Anion Gap 9 3 - 11 LAB CHEMISTRY METHOD 10/13/2024 3:56 PM [facility] Glucose 113(H) 70 - 100 mg/dL LAB CHEMISTRY METHOD 10/13/2024 3:56 PM [facility] BUN 10 5 - 25 mg/dL LAB CHEMISTRY METHOD 10/13/2024 3:56 PM [facility] Creatinine 1.30 0.70 - 1.30 mg/dL LAB CHEMISTRY METHOD 10/13/2024 3:56 PM [facility] eGFR 67 >=60 mL/min/1. 73m2 LAB CHEMISTRY METHOD 10/13/2024 3:56 PM [facility] Comment:Calculation based on the Chronic Kidney Disease Epidemiology Collaboration (CKD-EPI) equation refit without adjustment for race. BUN/Creatinine Ratio 7.7 LAB CHEMISTRY METHOD 10/13/2024 3:56 PM [facility] Calcium 9.5 8.5 - 10.5 mg/dL LAB CHEMISTRY METHOD 10/13/2024 3:56 PM [facility] AST (SGOT) 41 10 - 42 unit/L LAB CHEMISTRY METHOD 10/13/2024 3:56 PM [facility] ALT (SGPT) 48 10 - 60 unit/L LAB CHEMISTRY METHOD 10/13/2024 3:56 PM [facility] Alkaline Phosphatase 146(H) 42 - 121 unit/L LAB CHEMISTRY METHOD 10/13/2024 3:56 PM [facility] Total Protein 8.9(H) 6.0 - 8.0 g/dL LAB CHEMISTRY METHOD 10/13/2024 3:56 PM [facility] Albumin 3.8 3.2 - 5.0 g/dL LAB CHEMISTRY METHOD 10/13/2024 3:56 PM [facility] Total Bilirubin 0.4 0.0 - 1.4 mg/dL LAB CHEMISTRY METHOD 10/13/2024 3:56 PM [facility] Blood Venous blood specimen / Unknown Venipuncture / Unknown 10/13/2024 3:03 PM EST 10/13/2024 3:26 PM EST us Devin Mo MD LAB BLOOD ORDERABLES Agueda l Result [facility] [address] [place] [address], * Hm Colonoscopy (09/20/2021) Colonoscopy abnormal, abstracted Anatomical Region Laterality Modality Other Historical Provider HEALTH MAINTENANCE Final Result from Last 3 Months or Most Recently Relevant to Health Maintenance Insurance [place]IC[place] Advance Directives Documents on File Type Date Recorded 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
--- OUTSIDE RECORDS SUMMARY | 2025-04-28 16:05 | XMS_ITS | Clinical Summary ---
Author Organization [facility] Address [address] [place] [address] Care Team Providers Care Tea Bag Packer Name Role Phone Thomas Kam Primary Care Provider Allergies Active Allergy Reactions Criticality Noted Date Comments Influenza Vaccines Unknown/Patient and Family Unable to Define Medium 02/11/2022 Lamotrigine Unknown/Patient and Family Unable to Define Medium 02/11/2022 Oxycodone Unknown/Patient and Family Unable to Define Medium 02/11/2022 Oxycodone-Acetaminophen Unknown/Patient and Family Unable to Define Medium 02/11/2022 Seafood Unknown/Patient and Family Unable to Define Medium 02/11/2022 Carbamazepine Unknown/Patient and Family Unable to Define Medium 10/29/2024 Tramadol Unknown/Patient and Family Unable to Define Medium 02/11/2022 Acetaminophen Unknown/Patient and Family Unable to Define Medium 02/11/2022 Medications methocarbamol (ROBAXIN) 750 MG tablet Take 1 tablet (750 mg total) by mouth 4 times daily (every 6 hours) as needed for muscle spasms. 20 tablet 02/11/2022 Active Social History Tobacco Use Types Packs/Day Years Used Date Smoking Tobacco: Never Assessed Tobacco Cessation:Counseling Given: Not Answered Sex and Gender Information Value Date Recorded Sex Assigned at Male 03/03/2023 4:03 PM EDT Legal Sex Male 2:07 PM EDT Gender Identity Male 03/03/2023 4:03 PM EDT Sexual Orientation Homosexual (lesbian or carter) 0 03/03/2023 4:03 PM EDT Last Filed Vital Signs Vital Sign Reading Time Taken Comments Blood Pressure 113/68 10/29/2024 9:36 PM EST Pulse 77 10/29/2024 9:36 PM EST Temperature 36.9 C (98.4 F) 10/29/2024 12:13 PM EST Respiratory Rate 18 10/29/2024 9:36 PM EST Oxygen Saturation 96% 10/29/2024 9:36 PM EST Inhaled Oxygen Concentration - - Weight - - Height - - Body Mass Index - - Plan of Treatment Health Maintenance Due Date Last Done Comments Hepatitis C Virus Screening 1973 DTaP/Tdap/Td Vaccines (1 - Tdap) 1992 Hepatitis B Vaccines (1 of 3 - 19+ 3-dose series) 1992 Pneumococcal Vaccines 50+ (1 of 2 - PCV) 1992 Zoster (Shingles) Vaccine (1 of 2) 1992 Colonoscopy 2018 COVID-19 Vaccine (4 2023-2 5 season) 2024 04/03/2022, 09/02/2021, 08/08/2021 Influenza Vaccine 03/27/2025 07/29/2013, 05/06/2010 HIV Screening Completed 03/04/2024, 12/27, 10/23/2023, Additional history exists Chronic Controlled Substance User PDMP Review Discontinued 10/29/2024 Insurance [employer] MEDICARE PART A & B Care Teams Tea Bag Packer Relationship Specialty Start Date End Date Thomas Kam PA PCP - General Emergency Medicine 03/03/23
--- OUTSIDE RECORDS SUMMARY | 2025-04-28 16:05 | XMS_ITS | Clinical Summary ---
Author Organization [address] [address] Phone Care Team Providers Care Senior Manager Mmcoe Name Role Phone Pcp, Does Not Have [...] history exists Covid-19 vaccine series (4 - 2024- season) 2025 04/03/2022, 09/02/2021, 08/08/2021 Influenza vaccine 04/27/2025 07/29/2013, 05/06/2010 Diabetes screening 04/29/2026 04/29/2023 RSV Immunization (1 - 1-dose 75+ series) 2048 Meningococcal Vaccine Aged Out 11/18/2018, 017 No longer eligible based on patient's age to complete this topic Pneumococcal Vaccine (2 - 49 years) Discontinued 04/11/2019, 02/03/2017, 11/28/2016, Additional history exists Meningococcal B Vaccine Aged Out No l [...] - 144 mmol/L 04/29/2023 1:19 PM EDT [facility] DEPARTMENT OF LABORATORY MEDICINE Potassium 3.9 3.3 - 5.3 mmol/L 04/29/2023 1:19 PM EDT [facility] DEPARTMENT OF LABORATORY MEDICINE Chloride 101 98 - 107 mmol/L 04/29/2023 1:19 PM EDT [facility] DEPARTMENT OF LABORATORY MEDICINE CO2 24 20 - 30 mmol/L 04/29/2023 1:19 PM [facility] DEPARTMENT OF LABORATORY MEDICINE Anion Gap 11 7 - 17 04/29/2023 1:19 PM [facility] DEPARTMENT OF LABORATORY MEDICINE Glucose 181(H) 70 - 100 mg/dL 04/29/2023 1:19 PM [facility] DEPARTMENT OF LABORATORY MEDICINE BUN 12 6 - 20 mg/dL 04/29/2023 1:19 PM [facility] DEPARTMENT OF LABORATORY MEDICINE Creatinine 1.17 0.40 - 1.30 mg/dL 04/29/2023 1:19 PM [facility] DEPARTMENT OF LABORATORY MEDICINE Calcium 9.2 8.8 - 10.2 mg/dL 04/29/2023 1:19 PM [facility] DEPARTMENT OF LABORATORY MEDICINE BUN/Creatinine Ratio 10.3 8.0 - 23.0 04/29/2023 1:19 PM [facility] DEPARTMENT OF LABORATORY MEDICINE Total Protein 8.7 6.6 - 8.7 g/dL 023 1:19 PM [facility] DEPARTMENT OF LABORATORY MEDICINE Albumin 4.5 3.6 - 4.9 g/dL 04/29/2023 1:19 PM [facility] DEPARTMENT OF LABORATORY MEDICINE Total Bilirubin 0.5 <=1.2 mg/dL 04/29/20 1:19 PM [facility] DEPARTMENT OF LABORATORY MEDICINE Alkaline Phosphatase 155(H) 9 - 122 U/L 04/29/2023 1:19 PM [facility] DEPARTMENT OF LABORATORY MEDICINE Alanine Aminotransferase (ALT) 45 9 - 59 U/L 04/29/2023 1:19 PM [facility] DEPARTMENT OF LABORATORY MEDICINE Comment:Calcium dobesilate c an cause artificially low ALT results at therapeutic concentrations Aspartate Aminotransferase (AST) 51(H) 10 - 35 U/L 04/29/2023 1:19 PM [facility] DEPARTMENT OF LABORATORY MEDICINE Globulin 4.2(H) 2.3 - 3.5 g/dL 04/29/2023 1:19 PM [facility] DEPARTMENT OF LABORATORY MEDICINE A/G Ratio 1.1 1.0 - 2.2 04/29/2023 1:19 PM [facility] DEPARTMENT OF LABORATORY MEDICINE AST/ALT Ratio 1.1 Reference Range Not Established 04/29/2023 1:19 PM EDT [facility] DEPARTMENT OF LABORATORY MEDICINE eGFR (Creatinine) >60 >=60 mL/min/1.73m2 04/29/2023 1:19 PM EDT [facility] DEPARTMENT OF LABORATORY MEDICINE Comment: Values < 60 mL/min/1.73 m2 may indicate CKD if present for more than three months AND creatinine is at steady state. The eGFR provides a rough estimate of kidney function. On 04/11/22 all [facility] Clinical Labs and Epic began using a [id number] formula for estimating GFR called CKD-EPI Creatinine 2020. This equation reports eGFR based on creatinine, patient age, clinical sex, and is standardized to a body surface area of 1.73 m2. For the same creatinine, this new race-free eGFR will be lower than prior reported Black eGFR results and higher than prior Non-Black eGFR results. For further guidance, please refer to the CKD: Adult Film Casting Operator Signature pathway. Blood Venipuncture / Unknown 04/29/2023 12:45 PM EDT 04/29/2023 12:52 PM EDT us Kurt Akins MD LAB BLOOD ORDERABLES Final Resu lt [facility] DEPARTMENT OF LABORATORY MEDICINE [address] [place] [address], [facility] [phone] from Last 3 Months or Most Recently Relevant to Health Maintenance Insurance MEDICARE [id number] MEDICAID MEDICARE [id number] MEDICAID MEDICARE [id number] MEDICAID Care Teams Senior Manager Mmcoe Relationship Specialty Start Date End Date Pcp, Does Not Have A PCP - General 04/29/23
--- OUTSIDE RECORDS SUMMARY | 2025-04-28 16:05 | XMS_ITS | Clinical Summary ---
Author Organization [facility] Address [address] [place] [address] Care Team Providers Care Preformer [employer] Name Role Phone Thomas Kam Primary Care [...] age to complete this topic Care Teams [employer] Relationship Specialty Start Date End Date Thomas Kam PA [address] [place] [address] PCP - General Physician Bread Dough Mixer 02/16/23
--- OUTSIDE RECORDS SUMMARY | 2025-04-28 16:06 | XMS_ITS | Clinical Summary ---
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 100 Each 3 024 Active empagliflozin (JARDIANCE) 25 mg tabIndications:U ncontrolled type 2 diabetes mellitus with hyperglycemia ([facility]),Type 2 diabetes mellitus with hyperglycemia, without long-term current use of insulin ([facility]) Take 1 Tablet by mouth daily. 90 Tablet 3 024 2024 Active lancetsIndicatio ns:Type 2 diabetes mellitus with hyperglycemia, without long-term current use of insulin ([facility]) Use to test blood sugar once daily. (OneTouch Delica Plus 33G) E11.9 100 Each 3 024 Active atorvastatin (LIPITOR) 80 mg tabletIndication s:Hypercholester emia TOME 1 TABLETA POR VIA ORAL TODOS [place] 90 Tablet 2 025 Active Bifidobacterium infantis (ALIGN DAILY) 4 mg capsule Take 1 Capsule by mouth once daily 30 Capsule 1 025 Active famotidine (PEPCID) 20 mg tabletIndication s:Gastroesophage al reflux disease without esophagitis TOME DOS TABLETAS POR VIA ORAL TODOS [place] 180 Tablet 2 025 Active VIMPAT 100 mg tabletIndication s:Seizure ([facility]) TAKE 1 TABLET BY MOUTH 2 TIMES DAILY FOR A TYPE OF SEIZURE CALLED A FOCAL SEIZURE 60 Tablet 3 025 Active warfarin (COUMADIN) 5 mg tabletIndication s:Venous insufficiency of both lower extremities,Hist ory of DVT (deep vein thrombosis),Acut e deep vein thrombosis (DVT) of right lower extremity, unspecified vein ([facility]) TAKE 1 TABLET DAILY DIRECTED BY THE [facility] 025 Active pantoprazole (PROTONIX) 40 mg EC tablet TOME 1 TABLETA POR VIA ORAL TODOS [place] 90 Tablet 1 025 Active albuterol HFA 90 mcg/actuation inhalerIndicatio ns:Mild intermittent asthma without complication ([facility]) INHALE DANDO 2 SOPLIDOS CADA 4 HORAS CUANDO SEA NECESARIO PARA LA SIBILANCIA OR PARA LA FALTA 18 g 3 025 Active blood sugar diagnostic stripsIndication s:Type 2 diabetes mellitus with hyperglycemia, without long-term current use of insulin ([facility]) Use to test blood sugar once daily (OneTouch Verio or Ultra 2, whichever is approved) E11.9. 100 Each 3 025 Active blood-glucose meter monitoring kitIndications:T ype 2 diabetes mellitus without complication, without long-term current use of insulin ([facility]) Use to test blood sugar once daily. (OneTouch Verio or Ultra 2, whichever is approved) E11.9. 1 Each 025 Active morphine (MSIR) 15 mg tabletIndication s:Venous insufficiency of both lower extremities,Abdo arminda aortic aneurysm (AAA) without rupture, unspecified part ([facility]),Acute deep vein thrombosis (DVT) of right lower extremity, unspecified vein ([facility]),PAD (peripheral artery disease) ([facility]),Chronic low back pain, unspecified back pain laterality, unspecified whether sciatica present Take 1 Tablet by mouth every 6 (six) hours as needed for pain. 45 Tablet 025 Active naloxone (NARCAN) 4 mg/actuation nasal spray Use as directed on packaging.. 2 Each 1 025 Active cholecalciferol (VITAMIN D-3) 50 mcg (2,000 unit) capsuleIndicatio ns:Type 2 diabetes mellitus without complication, without long-term current use of insulin ([facility]),Class 1 obesity without serious comorbidity in adult, unspecified BMI, unspecified obesity type TOME 1 CAPSULA POR VIA ORAL TODOS [place] 90 Capsule 1 025 Active tenofovir disoproxil fumarate (VIREAD) 300 mg tabletIndication s:HIV disease ([facility]) TOME 1 TABLETA POR VIA ORAL TODOS [place]. 90 Tablet 3 025 Active darunavir-cobici stat (PREZCOBIX) 800-150 mg-mg tabIndications:H IV disease ([facility]) Take 1 Tablet by mouth once daily. 90 Tablet 3 025 Active raltegravir (ISENTRESS HD) 600 mg tabIndications:H IV disease ([facility]) Take 1 Tablet by mouth 2 (two) times Daily. 180 Tablet 3 025 Active levothyroxine 25 mcg tabletIndication s:Hypothyroidism , unspecified type TOME 1 TABLETA POR VIA ORAL TODOS [place] 90 Tablet 1 025 Active semaglutide (OZEMPIC) 1 mg/dose (4 mg/3 mL) pen injectorIndicati ons:Type 2 diabetes mellitus with hyperglycemia, without long-term current use of insulin ([facility]) Inject 1 mg into the skin once a week Every Sunday. 3 mL 11 025 Active lacosamide (VIMPAT) 100 mg tabletIndication s:Seizure ([facility]) TOME 1 TABLETA POR VIA ORAL DOS VECES AL CARLO 90 Tablet 2 025 Active azelastine (OPTIVAR) 0.05 % ophthalmic solutionIndicati ons:Allergic conjunctivitis of left eye PONGA EMILY GOTA EN EFRAIN AUGUSTUS DOS VECES AL CARLO 6 mL 1 025 Active simethicone (MYLICON) [address] 1 Tablet into mouth, chew and swallow every 6 (six) hours as needed for flatulence. 30 Tablet 1 025 Active dicyclomine (BENTYL) 20 mg tabletIndication s:Chronic RLQ pain TOME EMILY TABLETA CUATRO VECES AL CARLO CUANDO SEA NECESARIO FOR ABDOMINAL PAIN 360 Tablet 1 023 2024 Discontinued( Cancelled) azelastine (OPTIVAR) 0.05 % ophthalmic solutionIndicati ons:Allergic conjunctivitis of left eye PONGA EMILY GOTA EN EFRAIN AUGUSTUS DOS VECES AL CARLO 6 mL 1 025 2024 Discontinued Active Problems Problem Noted Date Diagnosed Date Type 2 diabetes mellitus wit h hyperglycemia, without long-term current use of insulin ([facility]) 04/09/2024 Overview (02/19/2025): DM dx: unclear Glucometer: OneTouch Verio Current [...] foot exam: 05/14/24 per Diabetes retinal exam: 08/13/25 at [facility] No evidence of diabetic retinopathy - the condition is stable but potentially progressive HIV disease - no ocular manifestations Nuclear sclerosis OU - blurred vision +2.00 readers recommended, but pt refused Epiretinal membrane OU - mild ERM, not clinically significant Presbyopia OU - good correction with reading glasses Patient reports [facility] will not see him due to multiple no-shows 05/24/23 at [facility] No evidence of diabetic retinopathy - the condition is stable but potentially progressive Nuclear sclerosis OU - the patient has been diagnosed with cataract, but vision remains relatively good at this time... no treatment is currently recommended. Epiretinal membrane OU. Mild ERM. Monitor. Presbyopia OU. Good correction with reading glasses. 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 That was in the [...] switch to warfarin/lovenox - 09/10/2022 stopped warfarin (home INR ranging from 1.5-5.4), lovenox 90 mg BID continued. He was given options to continue Lovenox versus fondaparinux.. - 12/2022: He opted to start on fondaparinux with his PCP. - 05/2023: USG at [place] showed chronic DVT. Recommended lifelong anticoagulation but he deferred - 07/2023: Anticoagulation was resumed as there was a concern of ?PE. But review of CT chest during this hospital admission at [facility] showed no concern for PE. Only noted to have chronic RAMANA occlusion with collaterals. Resumed on fondaparinux subcutaneous 7.5 Mg once daily -July 2023: Was seen in the hematology clinic by Dr. Jane and Dr. Carter. Recommended lifelong anticoagulation given multiple unprovokedVTE's in the male patient with no significant bleeding risk. They referred him to Coumadin clinic. Of note thrombophilia workup with APLA antibodies, JAK2 mutation, Antithrombin III, protein C, protein S, factor V and factor II mutations were all negative. Protein S free antigen 93%, protein C functional 92%, Antithrombin III functional 76%, -September 2023: Admitted for abdominal pain and seizure-like activity, during that admission found to have nonocclusive left popliteal vein thrombus measuring up to 3.7 cm in length. At that time he was on prophylactic heparin in the hospital (he self discontinued his Coumadin), he was discharged on fondaparinux - November 2023: Presented again with left lower extremity pain, ultrasound showed no evidence of DVT - May 2024: Presentation with left lower extremity pain, ultrasound showed: Short segment nonocclusive DVT within the left femoral vein 2.3 cm in length. Unclear if he was compliant with fondaparinux at that time. No change in anticoagulation was recommended -June 2024: Admitted to [facility] with lower extremity weakness and decreased sensation, and chest pain. CT head negative, CTA chest abdomen nonacute no PE, ultrasound of the left lower extremity showed: 2 separate foci of nonocclusive thrombus measuring approximately 5 cm in length located within the mid to distal left femoral vein. This is worse compared to 06/23/2024 when there was one focus measuring 2.3 cm in length. At that time he was compliant with the Pradaxa, he did not to change to warfarin as recommended by the heme clinic. Hematology saw the patient and recommended switching to warfarin. Of note patient had 49 lower extremity Doppler ultrasound since 2019 (for details of the results please recheck the images section) Per [facility] notes from 09/20/22 - first developed a left lower extremity DVT diagnosed at [facility] back in 2017. That was in the setting of vascular [...] and I agree with this report. WSN: [id number] Ordering Physician: Jordy Clark Lung nodule < 6cm on CT 01/01/2020 Overview (01/01/2020): Date of Exam : 11/03/2019 Referring Physician : CONNOR LARA [facility] [address] [place] [address] Exam : PT - *SKULL BASE TO MID THIGH CPT 47137 - Room Description : *[facility] Pt4 Technique : See technique below Final [...] Psychogenic nonepileptic seizure 07/14/2019 Overview (07/14/2019): 04/08/19, [facility] Neurology Follow up note, Robert Pate MD: Pt has documented PNES, has not yet started psychotherapy, says he's in process. Impression and Plan: Stop Vimpat. Encouraged pt to make behavioral health appt. Abnormal CXR 05/07/2019 Overview (05/07/2019): 05/07/19 - CXR DR Chest Routine 2 Views, [facility], 12/26/18: Findings: The cardiomediastinal silhouette is [...] vertebral body. No retropulsion. - CXR, [facility], 03/05/19, IMPRESSION: 1. No acute cardiopulmonary abnormality. Increased density overlying the anterior left sixth rib likely represents a healing sixth rib fracture, as document in patient's EMR . Closed fracture of multiple ribs of left side with routine healing 05/07/2019 Overview (05/07/2019): 05/07/19 - - CT Chest Angiography, [facility], 03/27/19: Findings: [#5.] Bony structures demonstrate left lateral 5th through 8th rib fractures, partially healed and new from October 14, 2018. Mild adjacent pleural thickening. Scarring along the 8th rib. Mild wedge deformity of the T6 vertebral body. - CXR, [facility], 03/05/19, IMPRESSION: 1. No acute cardiopulmonary abnormality. [...] Rectal pain 10/29/2018 Overview (10/29/2018): Admitted to [facility], 10/25/18 - Post surgical rectal pain Varicocele 10/22/2018 Overview (10/22/2018): US 10/22/18 - varicocele right Lesion of perianal area 10/22/2018 Overview (10/24/2018): Seen at [facility] Dr. Tineo for perianal lesions, w/ chronic diarrhea, verrusous in nature, underwent examination under anesthesia, complete colonoscopy with rectal biopsies, excision of multiple perianal lesions with concomitant hemorrhoidectomy x 2 Rafa Tineo MD 10/22/18 History of DVT (deep vein thrombosis) 10/04/2018 Overview (08/05/2024): Per [facility] notes from 09/20/22 - first developed a left lower extremity DVT diagnosed at [facility] back in 2016. That was in the [...] and I agree with this report. WSN: [id number] Ordering Physician: Jordy Clark Hospitalized 03/29/18 - [...] Pt stated had EVAR in July in [place], which is odd because normal-caliber aorta with no visible stent seen on CT. According to note pt with odd affect. Labs unremarkable. Appears under influence of something. Prediabetes 09/13/2017 Immobility 04/19/2017 Overview (04/19/2017): Requiring raised toilet seat and bath bench DVT (deep venous thrombosis) ([facility] 06/2017 Overview (08/05/2024): Per [facility] notes from 09/20/22 - first developed a left lower extremity DVT diagnosed at [facility] back in 2016. That was in the [...] and I agree with this report. WSN: [id number] Ordering Physician: Jordy Clark Hospitalized 03/29/18 - 03/1018 - Proximal popliteal artery left lower extremity - INR subtherapuetic at home. Dilaudid for pain, Bypass/ anuersym repain by Dr. Mendieta. Lovenox and Coumadin 6 md daily. INR 2, then stop lovenox. Per [facility] note, has Coumadin clinic. Should follow with Dr. Mendieta for repair. Hepatitis B core antibody positive 11/28/2016 GERD (gastroesophageal reflux disease) 3 Hyperlipidemia LDL goal <70 07/29/2013 HIV disease ([facility]) 07/22/2013 Overview (01/23/2024): Presently on raltegravir HD, [...] 07/14/19 - compliant with HAART. Per 06/22/19 [facility] ED report last labs were in December with CD4 count of 568 and viral load undetectable. -06/10/13: [place] CD4 count: 432 CD8: 1111 CD4/CD8 ratio: 0.39 Viral Load: <75 Seizure ([facility]) 07/22/2013 Enlarged prostate 07/22/2013 COPD (chronic obstructive pu lmonary disease) ([facility]) 07/22/2013 History of appendectomy Overview (07/29/2013): 2004 Undiagnosed cardiac murmurs PAD (peripheral artery disease) ([facility]) Epilepsy, abdominal ([facility]) Hypothyroid Chronic obstructive asthma w ith status asthmaticus ([facility]) Anemia, unspecified Allergic state Resolved Problems Problem Noted Date Diagnosed Date Resolved Date Uncontrolled type 2 diabetes mellitus with hyperglycemia ([facility]) 05/15/2024 07/02/2024 Class 1 obesity without seri ous comorbidity in adult 04/09/2024 04/09/2024 Diabetes mellitus due to und erlying condition with chronic kidney disease, without long-term current use of insulin ([facility]) 02/20/2019 04/09/2024 H/O CT scan of abdomen 12/09/201811/10 Overview (11/10/2020): 12/08/18 - chronic distal rectal soft tissue thickening. Fatty infiltration of liver. [facility] ED 10/11/16 for abdominal pain. Pt stated had EVAR in July in [place], which is odd because normal-caliber aorta with no visible stent seen on CT. According to note pt with odd affect. Labs unremarkable. Appears under influence of something. Abdominal pain 11/03/2016 11/10/2020 Overview (11/03/2016): [facility] ED 10/11/16 for abdominal pain. Pt stated had [place]AR in July in [place], which is odd because normal-caliber aorta with no visible stent seen on CT. According to note pt with odd affect. Labs unremarkable. Appears under influence of something. Asthma 07/22/2013 08/19/2018 Asymptomatic human immunodef iciency virus (HIV) infection status ([facility]) 021 Encounters Date Type Department Care Team Description 04/28/2025 10:20 AM EDT Office Visit [address] [phone] Dede Christensen NP Hernandez, Maria C 02/19/2025 1:00 PM EDT Office Visit [address] [phone] Arnaldo Osman, SarahD 02/09/2025 Case Management Visit [address] [phone] Constanza Hubbard [place] 02/06/2025 8:40 AM EDT Office Visit [address] [phone] Suzy Pearce PA-C 02/02/2025 Results Follow-Up [address] [phone] Dede Christensen NP from Last 3 Months Immunizations Immunization Administration Dates Next Due HEP B,ADULT 01/06/2004,06/05/2003,03/27/2003 Hep A, adult 11/16/2003,03/27/2003 Hep B, Adult/Adol (OQDAXJG-A-EUQNK/RECOMBIVAX-ADULT) 10/28/2013,09/30/2013 03/30/2014 Hep B,adult,adjuvanted (HEPLISAV) 10/06/2022,03/2022 INFLUENZA, SEASONAL, INJECTABLE 07/29/2013,05/06 MENINGOCOCCAL MCV4P (MENACTRA) 11/18/2018,2016 MMR (MMR II/Priorix) 05/04/2022,04/03/2022 Meningococcal Conjugate Quad rivalent (MenQuadfi), MenACWY-TT (MCV4) 01/25/2024 Moderna COVID-19 Vaccine, re d cap blue label, 12+ Primary Series 04/03/2022,09/02/2021,08/08/2021 PNEUMOCOCCAL CONJUGATE PCV 13 11/28/2016 PNEUMOCOCCAL CONJUGATE PCV 2 0 (Prevnar 20) 08/08/2024 PNEUMOCOCCAL POLYSACCHARIDE PPV23 (Pneumovax 23) 04/11/2019,02/03/2017,09/30/2013,05/27 PPD 08/13/2018, 7,07/29/2013,11/25 TDAP 01/25/2024,09/30/2013 Td (adult),2 Lf tetanus toxo id (TDVAX), preservative free 06/05/2003 ZOSTER VACCINE, RECOMBINANT (SHINGRIX) 06/29/2021,05/18/2021 Family History Medical History Relation Name Comments Diabetes Father Diabetes Mother Hypertension Mother heart surgery Mother Relation Name Status Comments Brother X2 Father Alive Mother Alive Sister X2 Social History Tobacco Use Types Packs/Day Years [...] Orientation Chaidez 08/14/2024 10 :51 AM PST Last Filed Vital Signs Vital Sign Reading [...] Mass Index 26.91 04/28/2025 10:37 AM EDT Plan of Treatment Upcoming Encounters Date Type Department Care Team (Late st Contact Info) Description 08/31/2025 9:00 AM EST Office Visit [facility] [address] [place] [address] Nicolette Conley [address] [place] [address] Health Maintenance Due Date Last Done Comments Dental Prophy 1973 CT Colonography 2018 FIT/gFOBT 2018 Fecal DNA 2018 Flexible Sigmoidoscopy 2018 Dental BW 03/19/2023 03/17/2022 Dental Examination 03/19/2023 03/17/2022 Medicare Annual Wellness Visit 11/24/2023 11/23/2022 Depression Monitoring 02/20/2025 11/20/2024 , 10/23/2023, 11/23/2022, Additional history exists [id number] ( season) 2025 04/03/2022, 09/02/2021, 08/08/2021 Imm-Influenza (#1) 2025 08/13/2018, 1 09/29/2012, 05/06/2010 Urine Drug Screen 05/14/2025 05/14/2024 Hemoglobin A1c 06/10/2025 12/09/2024, 07/0 04/2024, 01/09/2024, Additional history exists Retinopathy Screening 08/13/2025 08/13/2024 , 05/23/2023, 05/25/2022 Anxiety Screening 11/20/2025 11/20/2024 Diabetes Foot Exam 11/20/2025 11/20/2024, 0 05/14/2024, 08/03/2022, Additional history exists Tobacco Screening 11/20/2025 11/20/2024, , 10/27/2021, Additional history exists Lipid Screening 12/09/2025 12/09/2024, 01/0 11/2023, 06/15/2022, Additional history exists Serum Creatinine 12/09/2025 12/09/2024, 12/2024, 10/13/2024, Additional history exists Syphilis Screening 12/09/2025 12/09/2024, 0 01/25/2024, 01/29/2023, Additional history exists TSH Monitoring 12/09/2025 12/09/2024, 01/0 11/2023, 06/15/2022, Additional history exists Urine Albumin Creatinine Ratio Screening 12/09/2025 12/09/2024, 11/05/2021 Hypertension Screening (#1) 04/28/2026 Dental FMX/Pano 03/19/2027 03/17/2022 Imm-Meningococcal (4 - Risk 2-dose series) 01/24/2029 01/25/2024, 11/18/2018, 06/19/2017 Colonoscopy 09/20/2031 09/20/2021 Colorectal Cancer Screening 09/20/2031 Imm-DTaP/Tdap/Td (3 - Td or Tdap) 01/24/2034 01/25/2024, 09/30/2013, 06/05/2003 Imm-Hepatitis A Completed 11/16/2003, 03/27/2003 Imm-Zoster, Recombinant Completed 06/29/2021, 05/18 Imm-MMR Discontinued 05/04/2022, 04/03/2022 Imm-Hepatitis B Completed 10/06/2022, 12/03/2022, 10/28/2013, Additional history exists Imm-Pneumococcal 50+ Completed 08/08/2024, 04/11/2019, 02/03/2017, Additional history exists Alcohol and Drug Screen Completed 11/21/19, 10/23/2023, 11/23/2022, Additional history exists Hepatitis C Screening Completed 12/09/2024 , 01/25/2024, 01/29/2023, Additional history exists Imm-HIB Aged Out No longer eligi ble based on patient's age to complete this topic Procedures Procedure Name Priority Date/Time Associated Diagnosis Comments IMAGING SCANNED DOCUMENT 04/14/2025 3:00 AM EDT IMAGING SCANNED DOCUMENT 04/14/2025 3:00 AM EDT IMAGING SCANNED DOCUMENT 04/14/2025 3:00 AM EDT IMAGING SCANNED DOCUMENT 04/14/2025 3:00 AM EDT REFERRAL SCANNED DOCUMENT 02/20/2025 3:00 AM EDT GLUCOSE, BLOOD BY GLUCOSE MONITORING DEVICE (CLIA WAIVED)POCT Routine 02/19/2025 1:13 PM EDT Type 2 diabetes mellitus with hyperglycemia, without long-term current use of insulin ([facility]) US SCROTUM/TESTICLES Routine 01/29/2025 3:00 AM EDT Abnormal hormone level in specimen from male genital organ HEMOGLOBIN GLYCOSYLATED A1C Routine 12/09/2024 11:01 AM EDT Type 2 diabetes mellitus with hyperglycemia, without long-term current use of insulin ([facility]) SYPHILIS ANTIBODY CASCADING REFLEX Routine 12/09/2024 10:53 AM EDT HIV disease ([facility]) COMPREHENSIVE METABOLIC PANEL Routine 12/09/2024 10:53 AM EDT HIV disease ([facility]) HEPATITIS C AB W/RFLX HCV RNA, QT, RT PCR Routine 12/09/2024 10:53 AM EDT HIV disease ([facility]) Other problems related to lifestyle TSH W/RFLX FREE T4 Routine 12/09/2024 10 :50 AM EDT Routine adult health maintenance LIPID PANEL Routine 12/09/2024 10:50 AM EDT Type 2 diabetes mellitus with hyperglycemia, without long-term current use of insulin ([facility]) MICROALBUMIN/CREATININ E RATIO, URINE, RANDOM Routine 12/09/2024 10:50 AM EDT Type 2 diabetes mellitus with hyperglycemia, without long-term current use of insulin ([facility]) EYE EXAM 08/13/2024 3:00 AM EST DRUG MONITORING, PANEL 8 WITH CONFIRMATION, URINE Routine 05/14/2024 5:26 PM EDT Morphine user Encounter for therapeutic drug level monitoring INTRAORAL - COMP SERIES OF RADIOGRAPHIC IMAGES Routine 03/17/2022 2:20 PM EDT Encounter for dental examination PERIODIC ORAL EVALUATION ESTABLISHED PATIENT Routine 03/17/2022 2:20 PM EDT Encounter for dental examination REFERRAL FOR COLONOSCOPY Routine 09/20/2021 3:00 AM EST Screening for malignant neoplasm of colon HIV disease ([facility]) from Last 3 Months or Most Recently Relevant to Health Maintenance Results * IMAGING SCANNED DOCUMENT (04/14/2025 3:00 AM EDT) Only the most recent of4 resultswithin the time period is included. 04/14/2025 3:00 AM EDT Thomas PEREZ SCAN IMAGING Final Result * REFERRAL SCANNED DOCUMENT (02/20/2025 3:00 AM EDT) 02/20/2025 3:00 AM EDT Thomas PEREZ SCAN REFERRAL Final Result * (ABNORMAL) GLUCOSE, BLOOD BY GLUCOSE MONITORING DEVICE (CLIA WAIVED)POCT Routine (02/19/2025 1:13 PM EDT) GLUCOSE 133(A) 70 - 100 mg/dL [facility] POCT Capillary Blood Blood / Unknown 1:13 PM EDT Arnaldo Osman PharmD LAB - BLOOD DRAW Final Re sult [facility] POCT * US SCROTUM/TESTICLES (01/29/2025 3:00 AM EDT) 01/29/2025 3:00 AM EDT Impressions [facility] - 02/01/2025 10:26 AM EDT IMPRESSION: No testicular mass. Left-sided varicocele. Otherwise unremarkable ultrasound of the scrotum. Andrez Nogueira MD Signed by Andrez Nogueira MD Read by: ANDREZ NOGUEIRA II, MD Reviewed and Electronically Signed by: ANDREZ NOGUEIRA II, MD Narrative [facility] - 02/01/2025 10:26 AM EDT Original Report PROCEDURE: US SCROTAL TESTICULAR INDICATION: Abnormal hormone level in specimen from male genital organ. Gynecomastia. TECHNIQUE: Ultrasound of the scrotum. COMPARISON: None Available. FINDINGS: The right testicle measures 3.0 x 1.4 x 2.5 cm. It demonstrates a normal homogeneous echotexture. The right epididymal head measures 0.9 x 0.7 x 1.1 cm and demonstrates normal echogenicity. The left testicle measures 3.6 x 1.5 x 2.5 cm. It demonstrates a normal homogeneous echotexture. The left epididymal head measures 1.1 x 0.5 x 0.8 cm and demonstrates multiple cysts with the largest measuring 0.4 x 0.1 x 0.3 cm. There is a left-sided varicocele. Procedure Note Default, [facility] Provider - 02/01/2025 Original Report PROCEDURE: US SCROTAL TESTICULAR INDICATION: Abnormal hormone level in specimen from male genital organ. Gynecomastia. TECHNIQUE: Ultrasound of the scrotum. COMPARISON: None Available. FINDINGS: The right testicle measures 3.0 x 1.4 x 2.5 cm. It demonstrates a normal homogeneous echotexture. The right epididymal head measures 0.9 x 0.7 x 1.1 cm and demonstrates normal echogenicity. The left testicle measures 3.6 x 1.5 x 2.5 cm. It demonstrates a normal homogeneous echotexture. The left epididymal head measures 1.1 x 0.5 x 0.8 cm and demonstrates multiple cysts with the largest measuring 0.4 x 0.1 x 0.3 cm. There is a left-sided varicocele. IMPRESSION: IMPRESSION: No testicular mass. Left-sided varicocele. Otherwise unremarkable ultrasound of the scrotum. Andrez Nogueira MD Signed by Andrez Nogueira MD Read by: ANDREZ NOGUEIRA II, MD Reviewed and Electronically Signed by: ANDREZ NOGUEIRA II, MD us Dede Rayphil [facility]TRASOUND Edited Result - Final [facility] Corporate Office [address], [address] [place] [address], [place] [phone] * (ABNORMAL) HEMOGLOBIN GLYCOSYLATED A1C (12/09/2024 11:01 AM EDT) HEMOGLOBIN A1C 6.4(H) <5.7 % [facility] Comment: For someone without known diabetes, a hemoglobin A1c value between 5.7% and 6.4% is consistent with prediabetes and should be confirmed with a follow-up test. For someone with known diabetes, a value <7% indicates that their diabetes is well controlled. A1c targets should be individualized based on duration of diabetes, age, comorbid conditions, and other considerations. This assay result is consistent with an increased risk of diabetes. Currently, no consensus exists regarding use of hemoglobin A1c for diagnosis of diabetes for children. Blood Blood / Unknown 12/09/2024 1 1:01 AM EDT 12/09/2024 11:01 AM EDT Arnaldo Osman PharmD LAB - BLOOD DRAW Final Re sult Performing Organization Address [facility] Co de Phone Number [facility] [address] [place] [phone], [facility] [address] [phone] * HEPATITIS C AB W/RFLX HCV RNA, QT, RT PCR (12/09/2024 10:53 AM EDT) HEPATITIS C ANTIBODY NON-REACT ABDON NON-REACT ABDON [facility] Comment: HCV antibody was non-reactive. There is no laboratory evidence of HCV infection. In most cases, no further action is required. However, if recent HCV exposure is suspected, a test for HCV RNA (test code 14197) is suggested. For additional information please refer to http://education.GeniusMatcher/faq/YTU46u3 (This link is being provided for informational/ educational purposes only.) Blood Blood / Unknown 12/09/2024 1 0:53 AM EDT 12/09/2024 10:54 AM EDT Narrative [facility] - 12/20/2024 1:33 AM EDT DIFFICULT DRAW. PATIENT ADVISED TO RETURN FOR COLLECTION. us Suzy Pearce PA-C LAB - BLOOD DRAW Edited Resu lt - Final Performing Organization Address [facility]/ZIP Co de Phone Number [facility] [address] [place] [phone], [facility] [address] [phone] * SYPHILIS ANTIBODY CASCADING REFLEX (12/09/2024 10:53 AM EDT) T. PALLIDUM AB, EIA NEGATIVE NEGATIVE [facility] Comment: No antibodies to T. pallidum (the agent causing syphilis) were detected in the specimen. This result, however, does not exclude very recent T. pallidum infection; testing of a second specimen, collected 2-4 weeks after this specimen, is recommended if the index of suspicion for recent infection is high. Blood Blood / Unknown 12/09/2024 1 0:53 AM EDT 12/09/2024 10:54 AM EDT Narrative [facility] [employer] - 12/20/2024 1:33 AM EDT DIFFICULT DRAW. PATIENT ADVISED TO RETURN FOR COLLECTION. Suzy Pearce PA-C LAB - BLOOD DRAW Edited Resu lt - Final [facility] [address] [place] [id number], [facility] [address] [place] [phone] * (ABNORMAL) COMPREHENSIVE METABOLIC PANEL (12/09/2024 10:53 AM EDT) GLUCOSE 106(H) 65 - 99 mg/dL [facility] Comment: Fasting reference interval For someone without known diabetes, a glucose value between 100 and 125 mg/dL is consistent with prediabetes and should be confirmed with a follow-up test. UREA NITROGEN (BUN) 13 7 - 25 mg/dL [facility] CREATININE (blood) 1.23 0.70 - 1.30 mg/dL [facility] EGFR 71 > OR = 60 mL/min/1. 73m2 [facility] BUN/CREATININE RATIO SEE NOTE: 6 - [facility] Comment: Not Reported: BUN and Creatinine are within reference range. SODIUM 136 135 - 146 mmol/L [facility] POTASSIUM 4.5 3.5 - 5.3 mmol/L [facility] CHLORIDE 103 98 - 110 mmol/L [facility] CARBON DIOXIDE 26 20 - 32 mmol/L [facility] CALCIUM 9.3 8.6 - 10.3 mg/dL [facility] PROTEIN, TOTAL 9.1(H) 6.1 - 8.1 g/dL [facility] ALBUMIN 4.4 3.6 - 5.1 g/dL [facility] GLOBULIN 4.7(H) 1.9 - 3.7 g/dL (calc) [facility] ALBUMIN/GLOBULI N RATIO 0.9(L) 1.0 - 2.5 (calc) [facility] BILIRUBIN, TOTAL 0.4 0.2 - 1.2 mg/dL [facility] ALKALINE PHOSPHATASE 115 35 - 144 U/L [facility] AST 26 10 - 35 U/L [facility] ALT 24 9 - 46 U/L [facility] Blood Blood / Unknown 12/09/2024 1 0:53 AM EDT 12/09/2024 10:54 AM EDT Narrative [facility] - 12/20/2024 1:33 AM EDT DIFFICULT DRAW. PATIENT ADVISED TO RETURN FOR COLLECTION. Suzy Pearce PA-C LAB - BLOOD DRAW Edited Resu lt - Final Performing Organization Address City/[facility]/ZIP Co de Phone Number [facility] [address] [address], [facility] [address] [phone] * TSH W/RFLX FREE T4 (12/09/2024 10:50 AM EDT) Pathologist [facility] TSH W/REFLEX TO FT4 1.84 0.40 - 4.50 mIU/L [facility] Blood Blood / Unknown 12/09/2024 1 0:50 AM EDT 12/09/2024 10:52 AM EDT Dede Christensen MEDICAL DEVICE LAB - BLOOD DRAW Edited Result - Final Performing Organization Address [facility] Co de Phone Number [facility] [address] [address], [facility] [address] [phone] * MICROALBUMIN/CREATININE RATIO, URINE, RANDOM (12/09/2024 10:50 AM EDT) CREATININE, RANDOM URINE 189 20 - 320 mg/dL [facility] MICROALBUMIN 0.9 mg/dL [facility] [employer] [facility] Comment: Reference Range Not established MICROALBUMIN/CREA TININE RATIO, RANDOM URINE 5 <30 mg/g creat [facility] Comment: The ADA defines abnormalities in albumin excretion as follows: Albuminuria Category Result (mg/g creatinine) Normal to Mildly increased <30 Moderately increased 30-299 Severely increased > OR = 300 The ADA recommends that at least two of three specimens collected within a 3-6 month period be abnormal before considering a patient to be within a diagnostic category. Urine Urine specimen / Unknown 12/09/2024 10:50 AM EDT 12/09/2024 10:52 AM EDT Dede Chirstensen MEDICAL DEVICE LAB URINE AMBULATORY Final Resu lt [facility] [address] [address], [facility] [address] [phone] * (ABNORMAL) LIPID PANEL (12/09/2024 10:50 AM EDT) CHOLESTEROL, TOTAL 164 <200 mg/dL [facility] HDL CHOLESTEROL 50 > OR = 40 mg/dL [facility] TRIGLYCERIDES 393(H) <150 mg/dL [facility] Comment: If a non-fasting specimen was collected, consider repeat triglyceride testing on a fasting specimen if clinically indicated. Sammy et al. J. of Clin. Lipidol. 2015;9:129-169. LDL-CHOLESTEROL 67 99 mg/dL (calc) [facility] Comment: Reference range: <100 Desirable range <100 mg/dL for primary prevention; <70 mg/dL for patients with CHD or diabetic patients with > or = 2 CHD risk factors. LDL-C is now calculated using the Charlie calculation, which is a validated novel method providing better accuracy than the Friedewald equation in the estimation of LDL-C. Mahesh MAYBERRY et al. ADA. 2013;310(19): 8606-4805 (http://education.Thotz.Lono/faq/KVB921) CHOL/HDLC RATIO 3.3 <5.0 (calc) [facility] NON-HDL CHOLESTEROL 114 <130 mg/dL (calc) [facility] Comment: For patients with diabetes plus 1 major ASCVD risk factor, treating to a non-HDL-C goal of <100 mg/dL (LDL-C of <70 mg/dL) is considered a therapeutic option. Blood Blood / Unknown 12/09/2024 1 0:50 AM EDT 12/09/2024 10:52 AM EDT Dede Christensen NP LAB - BLOOD DRAW Final Result [facility] [address] [address], [facility] [address] [place] [phone] * EYE EXAM (08/13/2024 3:00 AM EST) 08/13/2024 3:00 AM EST Thomas PEREZ OTHER Edited Result - Final * DRUG MONITORING, PANEL 8 WITH CONFIRMATION, URINE (05/14/2024 5:26 PM EDT) AMPHETAMINES NEGATIVE <500 [facility] BENZODIAZEPINES NEGATIVE <100 [facility] (acquired by [employer] in 2014) BUPRENORPHINE NEGATIVE <5 [facility] COCAINE METABOLITE NEGATIVE <150 [facility] 6 ACETYLMORPHINE NEGATIVE <[address] [facility] MARIJUANA METABOLITE NEGATIVE CONFIRMED <20 [facility] MEDMATCH MARIJUANA METAB PENDING [facility] MARIJUANA METABOLITE NEGATIVE <5 [facility]MATCH MARIJUANA METAB PENDING [facility] Marijuana Comments See Note [facility] (acquired by [employer] in 2014) Comment:See LDT Notes MDMA NEGATIVE <500 [facility] OPIATES NEGATIVE <100 [facility] OXYCODONE NEGATIVE <100 [facility] CREATININE 102.7 > or = 20.0 mg/dL [facility] PH 6.1 4.5 - 9.0 [facility] OXIDANT NEGATIVE <200 [facility] ALCOHOL METABOLITES NEGATIVE <500 [facility] Urine Urine specimen / Unknown 05/14/2024 5:26 PM EDT 05/15/2024 5:53 AM EDT us Thomas PEREZ LAB URINE AMBULATORY Edited Re sult - Final [facility] [address] [address], [facility] [address] [place] [phone] * REFERRAL FOR COLONOSCOPY (09/20/2021 3:00 AM EST) 09/20/2021 3:00 AM EST Thomas PEREZ REFERRAL Edited Result - Final from Last 3 Months or Most Recently Relevant to Health Maintenance Insurance [place] [facility] [place]ICA[place] Advance Directives Documents on File Type Date 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
[2025-04-28 16:41] VITALS: BP 113/77; PULSE 65; RESP 18; TEMP 36.7; O2SAT 97
== END 2025-04-28 16:43 | disposition home or self-care (01) ==
PROVIDERS: Physician Assistant Medical; Emergency Provider Emergency Medicine; PCP Dentist General Practice
DX: R10.32 Left lower quadrant pain (principal); R11.2 Nausea with vomiting, unspecified; B20 Human immunodeficiency virus [HIV] disease; G40.909 Epilepsy, unspecified, not intractable, without status epilepticus; I82.409 Acute embolism and thrombosis of unspecified deep veins of unspecified lower extremity; I71.40 Abdominal aortic aneurysm, without rupture, unspecified; Z79.01 Long term (current) use of anticoagulants; Z79.899 Other long term (current) drug therapy
CPT/HCPCS: 36415; 74177; 80053; 81001; 83690; 83735; 85025; 96361; 96374; 96375; 96376; 99283; 99285; J1171; J2405; Q9967

== ENCOUNTER → 2025-04-28 15:12 | Outpatient (BNV) | payer MEDICARE, MEDICAID, SELFPAY | PROVIDERS: Emergency Provider Emergency Medicine; PCP Dentist General Practice; Visit Provider Radiology Diagnostic Radiology | DX: R10.32 Left lower quadrant pain (principal) | CPT/HCPCS: 74177 ==

== ENCOUNTER 2025-05-17 08:55 | Emergency (ER) | payer MEDICARE, MEDICAID, SELFPAY ==
--- OUTSIDE RECORDS SUMMARY | 2025-05-14 09:56 | XMS_ITS | Encounter Summary ---
Author Organization [facility] Address [address] [place] [phone] Phone Care Team Providers Care Swing Manager Name Role Phone Unavailable Primary Care Provider Unavailabl e Reason for Visit * Reason Comments Abdominal Pain Diarrhea Nausea Encounter Details Date Type Department Care Team ([facility] st Contact Info) Description 05/14/2025 9:56 AM EDT - 05/14/2025 6:00 PM EDT Emergency [facility] [address] [place] [address] Mark Garcia MD [address] [place] [address] [email or web address] Xavi Stack MD [address] [place] [address] [email or web address] Discharge Disposition: Home or Self Care Social History Tobacco Use Types Packs/Day Years Used Date Smoking Tobacco: Never Assessed Education Answer Date Recorded Are you interested in more education? Not on misael e 05/14/2025 Are you concerned about learning? Not on file 05/14/2025 No 05/14/2025 No 05/14/2025 Food Answer Date Recorded Within the past 6 months we worried whether our food would run out before we got money to buy more. Never True 05/14/2025 Within the past 6 months the food we bought just didn't last and we didn't have enough money to get more. Never True Residential Stability Answer Date Recor ded What is your housing situation today? I have misty velez 05/14/2025 How many times have you move d in the past 12 months? Zero (I did not move) 05/14/2025 Paying for Meds Answer Date Recorded Do you have trouble paying for medicines? No 05/14/2025 Paying Utility Bills Answer Date Record ed Do you have trouble paying your heating or elect ricity bill? No 05/14/2025 Transportation Answer Date Recorded Has the lack of transportati on kept you from medical appointments or from getting medications? No 05/14/2025 Digital Access Answer Date Recorded No 05/14/2025 Yes 05/14/2025 Do you have reliable internet access at home? Ye s 05/14/2025 Do you have a device (e.g., phone, tablet, computer) with a working camera? Yes 05/14/2025 Intimate Partner Violence Answer Date R ecorded Are you denied basic needs s uch as food, clothing, or medical care? No 05/14/2025 In the past 12 months have y ou been in a relationship with a person who hurts, threatens, or tries to control you? No 05/14/2025 Are you denied basic needs s uch as food, clothing, or medical care? No 05/14/2025 In the past 12 months have y ou been in a relationship with a person who hurts, threatens, or tries to control you? No 05/14/2025 Sex and Gender Information Value Date Recorded Sex Assigned at Male 05/14/2025 10:28 AM EDT Legal Sex Male 9:34 AM EDT Gender Identity Male 05/14/2025 10:28 AM EDT Sexual Orientation Lesbian or Chaidez 05/14/2025 10 :28 AM EDT documented as of this encounter Last Filed Vital Signs Vital Sign Reading Time Taken Comments Blood Pressure 130/82 05/14/2025 3:45 PM EDT Pulse 76 05/14/2025 1:37 PM EDT Temperature 36.6 C (97.9 F) 05/14/2025 1:37 PM EDT Respiratory Rate 16 05/14/2025 1:37 PM EDT Oxygen Saturation 100% 05/14/2025 3:45 PM EDT Inhaled Oxygen Concentration - - Weight 79.8 kg (176 lb) 05/14/2025 9:54 AM EDT Height 175.3 cm (5' 9 ) 05/14/2025 9:54 AM EDT Body Mass Index 25.99 05/14/2025 9:54 AM EDT documented in this encounter Functional Status * Calculated C-SSRS Risk Score (Lifetime/Recent) Answer Date of Assessment Author No Risk Indicated 05/14/2025 9:56 AM EDT Clay Yost RN * [place] Suicide Severity Rating Scale (Screener/Recent Self-Report) Question Answer Date of Assessment Author 1. Wish to be (Past 1 Month) No 025 9:56 AM EDT Clay Yost RN 2. Non-Specific Active Suici rylan Thoughts (Past 1 Month) No 05/14/2025 9:56 AM EDT Clay Yost RN 6. Suicidal Behavior (Lifetime) No 9:56 AM EDT Clay Yost RN documented as of this encounter Discharge Instructions * Discharge Instructions* Denise Weiner PA-C - 05/14/2025 5:31 PM EDT You were evaluated in the emergency department for abdominal pain, diarrhea, and swelling and pain in both lower legs. After a thorough evaluation, including blood tests, imaging, and an ultrasound of your legs, the following was found: 1. Proctocolitis: This means there is inflammation in the lower part of your colon and rectum, which can cause abdominal pain and diarrhea. This was seen on your CT scan. 2. Lower Extremity Ultrasound: The ultrasound did not show any blood clots in the veins of your legs. However, it did show that there was no blood flow in the right popliteal artery (a blood vessel behind your knee). This is most likely related to your history of vascular disease and previous bypass surgery. At this time, you do not have signs of severe limb ischemia, but it is important to monitor for any changes. 3. Other Findings: Your vital signs were stable, and your blood tests did not show any signs of severe infection or organ damage. What to Do at Home: Rest and drink plenty of fluids to stay hydrated. Eat a bland diet (such as rice, bananas, applesauce, and toast) and avoid foods that can make diarrhea worse, like dairy, fatty foods, caffeine, and foods high in sugar or artificial sweeteners. Do not use anti-diarrheal medicines (like loperamide) unless your doctor tells you to, as these cansometimes make things worse. You have been asked to provide a stool sample as an outpatient. This helps check for infections or other causes of your symptoms. Leg Care and Monitoring: Watch your legs for any new or worsening pain, numbness, coldness, color changes (such as turning pale or blue), or sores that do not heal. These could be signs of decreased blood flow and need urgent attention. Keep your legs elevated when sitting to help reduce swelling. Preventing Spread: Wash your hands well after using the bathroom and before eating. Avoid sharing towels, utensils, or bathroom items until your symptoms have resolved. Avoid sexual contact until your symptoms are gone. Return to the emergency department or call your doctor right away if you have: Severe or worsening abdominal pain Blood in your stool that is increasing High fever (over 101??F) Signs of dehydration (such as dizziness, dry mouth, not urinating) Persistent vomiting Weakness or confusion New or worsening swelling, redness, pain, numbness, coldness, or color changes in your legs Follow-Up: Complete your stool sample as soon as possible. Follow-up with your primary care provider or auto damage appraiser. Also follow-up with your vascular doctor. If your symptoms do not improve in a few days, or if you have any of the warning signs above, seek care promptly. Feel better!! -- Lo evaluaron en urgencias por dolor abdominal, diarrea e hinchaz??n y dolor en ambas piernas. Tras shawn evaluaci??n exhaustiva, que incluy?? an??lisis de jarred, im??genes y shawn ecograf??a de piernas,se detect?? lo siguiente: 1. Proctocolitis: Spur significa que hay inflamaci??n en la parte inferior del colon y el recto, que puede causar dolor abdominal y diarrea. Spur se observ?? en de la garza tomograf??a computarizada. 2. Ecograf??a de extremidades inferiores: La ecograf??a no mostr?? co??gulos de jarred en las venasde las piernas. Sin embargo, s?? mostr?? ausencia de flujo sangu??david en la arteria popl??tea derecha (un vaso sangu??david detr??s de la rodilla). Es muy probable que esto est?? relacionado con monica antecedentes de enfermedad vascular y shawn cirug??a de bypass previa. En summer momento, no presenta signos de isquemia grave en las extremidades, mathieu es importante vigilar cualquier cambio. 3. Otros hallazgos: Monica signos vitales se mantuvieron estables y monica an??lisis de jarred no mostraron signos de infecci??n grave ni da??o org??imer. Qu?? hacer en casa: Descanse y alesia mucho l??quido para mantenerse hidratado. Siga shawn dieta blanda (pau arroz, pl??tanos, pur?? de manzana y tostadas) y evite los alimentos que pueden empeorar la diarrea, pau los l??cteos, las grasas, la cafe??na y los alimentos con alto contenido de az??car o edulcorantes artificiales. No use medicamentos antidiarreicos (pau la loperamida) a menos que de la garza m??dico se lo indique, ya que a veces pueden empeorar la situaci??n. Se le piña solicitado shawn muestra de heces pau paciente ambulatorio. Spur ayuda a detectar infecciones u otras causas de monica s??ntomas. Cuidado y monitoreo de las piernas: Observe monica piernas para detectar cualquier dolor nuevo o que empeore, entumecimiento, fr??o, cambios de color (pau palidez o eusebio) o llagas que no cicatrizan. Estos podr??an ser signos de disminuci??n del flujo sangu??david y requieren atenci??n urgente. Mantenga las piernas elevadas al sentarse para ayudar a reducir la hinchaz??n. Prevenci??n del contagio: L??vese genesis las derek despu??s de ir al ba??o y antes de comer. Evite compartir toallas, utensilios o art??culos de ba??o hasta que los s??ntomas hayan desaparecido. Evite el contacto sexual hasta que los s??ntomas hayan desaparecido. Regrese a urgencias o llame a de la garza m??dico de inmediato si presenta: Dolor abdominal intenso o que empeora. Aumento de la cantidad de jarred en las heces. Fiebre corey (m??s de 38 ??C). Signos de deshidrataci??n (pau mareos, sequedad bucal o falta de orina). V??mitos persistentes. Debilidad o confusi??n. Hinchaz??n, enrojecimiento, dolor, entumecimiento, fr??o o cambios de color en las piernas, nuevos s??ntomas o que empeoran. Seguimiento: Complete de la garza an??lisis de heces lo antes posible. Consulte con de la garza m??dico de cabecera o gastroenter??logo. Tambi??n consulte con de la garza m??dico vascular. Si monica s??ntomas no mejoran en unos d??as o si presenta alguno de los signos de advertencia mencionados, busque atenci??n m??dica de inmediato. ??Mejore! documented in this encounter ED Notes * Jose Olivas RN - 05/14/2025 6:00 PM EDT ED Discharge Nursing Note The patient is discharged home with instructions to follow up with their PCP within one week. The patient is breathing evenly and unlabored, they are also ambulatory independently with a steady gait and states that they are ready for discharge. * Jose Olivas RN - 05/14/2025 5:40 PM EDT ED Nursing Progress Note Patient provided with items to collect stool sample at home and to return to the lab for processing. * Jose Olivas RN - 05/14/2025 11:19 AM EDT ED Nursing Progress Note Patient awaiting an RN to place US IV. Will continue to monitor. * Jose Olivas RN - 05/14/2025 10:40 AM EDT ED Nursing Progress Note [place]an interpreting service paged to come for provider discussion. Will continue to monitor. * Jose Olivas RN - 05/14/2025 10:24 AM EDT ED Nursing Progress Note Pt roomed from triage/lobby. Pt changed into hospital gown and oriented to room, equipment, and controls. Patient is present with his partner of 22 years. Both the patient and his partner are primaryspanish speakers. The patients partner does speak Korean to make needs known and to relay some history. All safety protocols are in place and I will continue to monitor. * Clay Yost RN - 05/14/2025 9:54 AM EDT 2 days lower abd pain w/ nausea and diarrhea, states stool is unusually foul smelling, also having pain radiating down LLE, ambulates with limping steady gait. * Denise Weiner PA-C - 05/14/2025 9:34 AM EDT Chief Complaint Chief Complaint Patient presents with Abdominal Pain Diarrhea Nausea History of Present Illness The patient, Jerome Wallace,is a 49 y.o. male who presents for evaluation of Abdominal Pain,Diarrhea, and Nausea History obtained with assistance of in person deployment technician. Patient has a complex medical history and several complaints. Abdominal pain for 3 days, mostly left-sided radiating to the back. Associated with diarrhea that is very foul-smelling. No blood in stool. No urinary symptoms. Subjective fevers. History of cholecystectomy and appendectomy. Nausea without vomiting. No recent travel, recent antibiotics, known sick contacts. No recent medication changes. No drug or alcohol use. Last night episode of chest pain and shortness of breath. History of peripheral vascular disease and bilateral lower extremity DVTs. Worsening lower extremity edema and pain over the past 4 days. Hasbeen compliant with warfarin. Last INR 2.3 on Sunday. Prior vascular surgery by Dr. Martines in 2017 History of AAA repaired in 2016 in [place]. Ultrasound scheduled for July. Follows with at [facility] vascular surgery. Has had some dizziness over the past few days. No syncope. Currently not having any chest pain or shortness of breath. Unless otherwise specified, I have reviewed and agree with the triage and nursing notes. ROS A ten point review of systems was negative except what was noted in the HPI. Review of Systems Past Medical History No past medical history on file. Past Surgical History No past surgical history on file. Home Medications Prior to Admission medications Not on File Allergies Allergies Allergen Reactions Flu Vaccine [id number](6mos Up) Lamictal [Lamotrigine] Lobster [Shellfish Containing Products] Percocet [Oxycodone-Acetaminophen] Tegretol [Carbamazepine] Tramadol Social and Family History Social History Tobacco Use Smoking status: Not on file Smokeless tobacco: Not on file Substance Use Topics Alcohol use: Not on file Social History Substance and Sexual Activity Drug Use Not on file No family history on file. Physical Exam Vital Signs: ED Triage Vitals [05/14/25 0954] Encounter Vitals Group BP 117/80 Systolic BP Percentile Diastolic BP Percentile Heart Rate 85 Respiratory Rate 18 Temperature 36.4 ??C (97.5 ??F) Temp Source Tympanic SpO2 99 % Weight 176 lb Height 5' 9 Head Circumference Peak Flow Pain Score Pain Loc Pain Education Exclude from Growth Chart Physical Exam Appearance: Alert. Oriented x3. No acute distress. Head: Normocephalic, atraumatic. Eyes: Pupils equal, round and reactive to light. ENT: Oropharynx clear, mucous membranes moist. Trachea midline. Neck: Normal inspection. Neck supple. Full ROM. CVS: Normal heart rate and rhythm. Pulses normal. Respiratory: No respiratory distress. Breath sounds normal. Abdomen: Soft with diffuse tenderness to palpation r. No rebound or guarding, no CVAT, no distention Skin: Skin warm and dry. Extremities: No asymmetry between extremities. Mild calf swelling noted bilaterally.'s or warm to the touch. No erythema. Bilateral calf tenderness to palpation. No cords or palpable venous abnormalities. Homans' sign positive bilaterally. Distal pulses intact and symmetric. Scars on bilateral lower extremities from prior vascular surgeries. Neuro/psych: Face is symmetric. Speech clear and fluent. Mood and affect normal. Behavior normal. Laboratory Testing No results found for this visit on 05/14/25. Radiology Testing No orders to display MDM Assessment and Plan: 49-year-old with history of peripheral vascular disease s/p bypass, AAA s/p repair in [place] in 2016, prior appendectomy and cholecystectomy, HIV, seizure disorder, diabetes, hyperlipidemia, presenting to the emergency department for evaluation of abdominal pain with diarrhea for 3 days as well as bilateral lower extremity edema and erythema. Seen and evaluated. Afebrile with stable vital signs on arrival. Hemodynamically stable. Physical exam as above. Differential includes gastroenteritis/colitis, diverticulitis, acute pancreatitis, worsening DVT, nephrolithiasis, C. difficile Low clinical suspicion for PE, AAA endoleak/rupture, aortic dissection, ACS, SBO, peripheral arterial occlusion, mesenteric ischemia Labs with mild anemia, otherwise reassuring CBC, BMP, LFTs, lipase. Serial troponins negative. INR 2.1, within therapeutic range for warfarin. UA without evidence of infection. ECG NSR at 75 bpm without ischemic changes. Patient unable to provide stool sample in the ED. Bilateral lower extremity ultrasound without DVT in visualized veins of either lower extremity, however no flow seen in proximal right popliteal artery. Most likely related to prior bypass. No evidence of limb ischemia, so recommended that patient follow-up with vascular outpatient for further management. CTA chest and abdomen/pelvis showing no aortic dissection. Notes postsurgical changes from infrarenal aortobiiliac endovascular. Patent mesenteric vessels. Circumferential wall thickening of distal sigmoid colon and rectum which likely represents proctocolitis. Patient denies any risk of STD. Proctocolitis more likely viral. Patient unable to provide stool sample, however stool sample ordered for outpatient collection. Discussed plans for symptomatic treatment, outpatient follow-up, and strict return precautions. Patient expressed understanding. Discharged in stable condition. Clinical Impressions as of 05/14/25 180 Edema, unspecified type Proctocolitis Clinical Impression None Disposition: Home Denise Weiner PA-C 05/15/251733 * Mark Garcia MD - 05/14/2025 9:34 AM EDT ED Course Clinical Impressions as of 05/15/251953 Edema, unspecified type Proctocolitis Attestation: I have reviewed and agree with the history, physical exam, medical decision making and plan for thepatient as documented by the APC. As necessary, I have appended the note with my suggestions, comments or clarification to their assessment and plan in the note above. Mark Garcia MD 05/15/251953 documented in this encounter Plan of Treatment Pending Results Name Type Priority Associated Diagnoses Date /Time Stool culture Microbiology Routine 6:00 PM EDT Ova and parasites, stool Microbiology Routine 05/15/2025 6:00 PM EDT Scheduled Orders Name Type Priority Associated Diagnoses Orde r Schedule C. DIFFICILE PCR Microbiology STAT Once f or 1 Occurrences starting 05/14/2025 until 05/14/2025 Stool culture Microbiology Routine Once for 1 Occurrences starting 05/14/2025 until 05/14/2025 Ova and parasites, stool Microbiology STAT Once for 1 Occur rences starting 05/14/2025 until 05/14/2025 Ova and parasites, stool Microbiology Routine Expected: 2024, Expires: 05/14/2026 documented as of this encounter Procedures Procedure Name Priority Date/Time Associated Diagnosis Comments TROPONIN STAT 05/14/2025 1:32 PM EDT US LOWER EXTREMITY VEINS DUPLEX COMPLETE (BILATERAL) Routine 05/14/2025 1:20 PM EDT Edema, unspecified type CT ANGIO ABDOMEN/PELVIS WITH AND WITHOUT CONTRAST Routine 05/14/2025 12:[address] ANGIO CHEST WITH AND WITHOUT CONTRAST Routine 05/14/2025 12:42 PM EDT ECG 12-LEAD STAT 05/14/2025 12:00 PM EDT PT-INR STAT 05/14/2025 11:16 AM EDT TROPONIN STAT 05/14/2025 11:16 AM EDT LFTS (HEPATIC PANEL) STAT 05/14/2025 10:25 AM EDT CBC AND DIFFERENTIAL STAT 05/14/2025 10:25 AM EDT LIPASE STAT 05/14/2025 10:25 AM EDT BASIC METABOLIC PANEL STAT 05/14/2025 10:25 AM EDT URINALYSIS W/REFLEX URINE CULTURE STAT 05/14/2025 10:11 AM EDT documented in this encounter Results * Troponin (05/14/2025 1:32 PM EDT) Troponin-T, HS Gen5 <6 0 - 14 ng/L [facility] Blood 05/14/2025 1:32 PM EDT 05/14/2025 1:48 PM EDT Mark Garcia MD LAB BLOOD ORDERAB LES Final Result [facility] [address] [place] [address] * US Lower Extremity Veins Duplex Complete (Bilateral) (05/14/2025 1:20 PM EDT) [facility]GB IMG MERCHANDISING DIRECTOR 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 No flow is seen in the proximal right popliteal artery. [facility] Anatomical Region Laterality Modality Ultrasound 05/14/2025 2:12 PM EDT Impressions 05/14/2025 2:22 PM EDT 1. No deep vein thrombosis in the visualized veins of either lower extremity. 2. No flow is seen in the proximal right popliteal artery. A clinically significant result was initiated on 05/14/2025 2:22 PM, Message ID [id number]. Narrative 05/14/2025 2:22 PM EDT US LOWER EXTREMITY VEINS DUPLEX COMPLETE (BILATERAL) Referring clinician's provided indication for this examination in Epic: Edema TECHNIQUE: Lower extremity venous ultrasound with color and spectral Doppler. COMPARISON: None FINDINGS: Right lower extremity Common femoral vein: Normal compressibility and flow characteristics. Femoral vein: Normal compressibility and flow characteristics. Proximal profunda femoral vein: Normal compressibility. Popliteal vein: Normal compressibility and flow characteristics. Posterior tibial veins: Normal compressibility. Peroneal veins: Normal compressibility. Gastrocnemius veins: Normal compressibility. Great saphenous vein: Normal compressibility at the saphenofemoral junction. Other: No vascular flow is seen in the proximal right popliteal artery. Left lower extremity Common femoral vein: Normal compressibility and flow characteristics. Femoral vein: Normal compressibility and flow characteristics. Proximal profunda femoral vein: Normal compressibility. Popliteal vein: Normal compressibility and flow characteristics. Posterior tibial veins: Normal compressibility. Peroneal veins: Normal compressibility. Gastrocnemius veins: Normal compressibility. Great saphenous vein: Normal compressibility at the saphenofemoral junction. Other: None. Procedure Note Nicolette Bowers MD - 05/14/2025 US LOWER EXTREMITY VEINS DUPLEX COMPLETE (BILATERAL) Referring clinician's provided indication for this examination in Epic:Edema TECHNIQUE: Lower extremity venous ultrasound with color and spectralDoppler. COMPARISON: None FINDINGS: Right lower extremity Common femoral vein: Normal compressibility and flow characteristics. Femoral vein: Normal compressibility and flow characteristics. Proximal profunda femoral vein: Normal compressibility. Popliteal vein: Normal compressibility and flow characteristics. Posterior tibial veins: Normal compressibility. Peroneal veins: Normal compressibility. Gastrocnemius veins: Normal compressibility. Great saphenous vein: Normal compressibility at the saphenofemoraljunction. Other: No vascular flow is seen in the proximal right popliteal artery. Left lower extremity Common femoral vein: Normal compressibility and flow characteristics. Femoral vein: Normal compressibility and flow characteristics. Proximal profunda femoral vein: Normal compressibility. Popliteal vein: Normal compressibility and flow characteristics. Posterior tibial veins: Normal compressibility. Peroneal veins: Normal compressibility. Gastrocnemius veins: Normal compressibility. Great saphenous vein: Normal compressibility at the saphenofemoraljunction. Other: None. IMPRESSION: 1. No deep vein thrombosis in the visualized veins of either lowerextremity. 2. No flow is seen in the proximal right popliteal artery. A clinically significant result was initiated on 05/14/2025 2:22 PM,Message ID [id number]. us Denise Weiner PA-C CV US VASCULAR Final Resul t * CT ANGIO ABDOMEN/PELVIS WITH AND WITHOUT CONTRAST (05/14/2025 12:42 PM EDT) Anatomical Region Laterality Modality Abdomen, Abdominal Vasculature C omputed Tomography 05/14/2025 1:42 PM EDT Impressions 05/14/2025 2:38 PM EDT 1. No aortic dissection. 2. Postsurgical changes from infrarenal aortobiiliac endovascular without complication. 3. Mesenteric vessels are patent without evidence of end-organ hypoperfusion. 4. Circumferential wall thickening of the distal sigmoid colon and rectum, which may be due to proctocolitis. Correlation with prior endoscopy findings recommended. ATTESTATION: I, Nicolette Bowers as teaching physician, have reviewed the images for this case and if necessary edited the report originally created by Lit Vazquez. Narrative 05/14/2025 2:[address] ANGIO CHEST WITH AND WITHOUT CONTRAST, CT ANGIO ABDOMEN/PELVIS WITH AND WITHOUT CONTRAST Referring clinician's provided indication for this examination in Epic: * Chest pain or back pain, aortic dissection suspected; abd/back pain, hx AAA repair 2015 TECHNIQUE: 1. Multidetector-row CTA of the chest was performed before and after administration of intravenous contrast using tailored dose modulation techniques. Images were reconstructed in the axial, coronal, and sagittal planes, including angiographic image post-processing. 2. Multidetector-row CTA of the abdomen and pelvis was performed with intravenous contrast using tailored dose modulation techniques. Images were reconstructed in the axial, coronal, and sagittal planes, including angiographic image post- processing. COMPARISON: None FINDINGS: VASCULAR: Aorta: There is no aortic dissection, aneurysm, intramural hematoma, or occlusion. Postsurgical changes from infrarenal aortobiiliac endovascular graft repair. No definite evidence of endoleak. Contrast Extravasation: None. Pulmonary Arteries: Well opacified without pulmonary embolus. Branch Arteries: Normal. No stenosis, occlusion, or dissection involving the arch vessel origins. The celiac axis, SMA and RAMANA are patent. Renal arteries are patent bilaterally. Aorto-iliac system is patent without significant stenosis bilaterally. NON-VASCULAR: CHEST: Devices/Tubes/Lines: None. Lungs: No suspicious nodules. Scattered calcified granulomas. The central airways are patent. Pleura: No pleural effusion or pneumothorax. Mediastinum: Normal heart size. No pericardial effusion. Mild amount of coronary calcifications. Lymph Nodes: No enlarged supraclavicular, axillary, mediastinal, or hilar lymph nodes. Chest Wall: No chest wall mass. Bones/Soft Tissues: No acute osseous abnormality. Chronic appearing mild compression deformity of the T6 superior endplate. ABDOMEN/PELVIS: Liver: No focal lesions. Biliary: Prior cholecystectomy. No biliary ductal dilatation. Spleen: No splenomegaly. Coarse calcified granulomas. Pancreas: Fatty parenchymal atrophy, with relative sparing of the tail. No masses or ductal dilatation. Adrenal Glands: No nodules. Kidneys/Ureters: No solid masses, stones, or hydronephrosis. Scarring at the right kidney lower pole, which may be related to prior infection. Bowel: Prior appendectomy. Postsurgical changes from prior sigmoid resection with intact anastomosis in the low pelvis. No small or large bowel wall dilatation to suggest obstruction. Mild circumferential wall thickening of the distal sigmoid colon and rectum (9:1153). Peritoneum/Retroperitoneum: No masses, pneumoperitoneum, or fluid. Postsurgical changes in the anterior abdominal wall. Lymph Nodes: No lymphadenopathy. Pelvic Organs/Bladder: Normal. No mass. Bones/Soft Tissues: No significant abnormality. Procedure Note Nicolette Bowers MD - 05/14/2025 CT ANGIO CHEST WITH AND WITHOUT CONTRAST, CT ANGIO ABDOMEN/PELVIS WITH ANDWITHOUT CONTRAST Referring clinician's provided indication for this examination in Epic: *Chest pain or back pain, aortic dissection suspected; abd/back pain, hxAAA repair 2015 TECHNIQUE: 1. Multidetector-row CTA of the chest was performed before and afteradministration of intravenous contrast using tailored dose modulationtechniques. Images were reconstructed in the axial, coronal, and sagittalplanes, including angiographic image post-processing. 2. Multidetector-row CTA of the abdomen and pelvis was performed withintravenous contrast using tailored dose modulation techniques. Imageswere reconstructed in the axial, coronal, and sagittal planes, includingangiographic image post- processing. COMPARISON: None FINDINGS: VASCULAR: Aorta: There is no aortic dissection, aneurysm, intramural hematoma, orocclusion. Postsurgical changes from infrarenal aortobiiliac endovasculargraft repair. No definite evidence of endoleak. Contrast Extravasation: None. Pulmonary Arteries: Well opacified without pulmonary embolus. Branch Arteries: Normal. No stenosis, occlusion, or dissection involvingthe arch vessel origins. The celiac axis, SMA and RAMANA are patent. Renalarteries are patent bilaterally. Aorto-iliac system is patent withoutsignificant stenosis bilaterally. NON-VASCULAR: CHEST: Devices/Tubes/Lines: None. Lungs: No suspicious nodules. Scattered calcified granulomas. The centralairways are patent. Pleura: No pleural effusion or pneumothorax. Mediastinum: Normal heart size. No pericardial effusion. Mild amount ofcoronary calcifications. Lymph Nodes: No enlarged supraclavicular, axillary, mediastinal, or hilarlymph nodes. Chest Wall: No chest wall mass. Bones/Soft Tissues: No acute osseous abnormality. Chronic appearing mildcompression deformity of the T6 superior endplate. ABDOMEN/PELVIS: Liver: No focal lesions. Biliary: Prior cholecystectomy. No biliary ductal dilatation. Spleen: No splenomegaly. Coarse calcified granulomas. Pancreas: Fatty parenchymal atrophy, with relative sparing of the tail. Nomasses or ductal dilatation. Adrenal Glands: No nodules. Kidneys/Ureters: No solid masses, stones, or hydronephrosis. Scarring atthe right kidney lower pole, which may be related to prior infection. Bowel: Prior appendectomy. Postsurgical changes from prior sigmoidresection with intact anastomosis in the low pelvis. No small or largebowel wall dilatation to suggest obstruction. Mild circumferential wallthickening of the distal sigmoid colon and rectum (9:1153). Peritoneum/Retroperitoneum: No masses, pneumoperitoneum, or fluid.Postsurgical changes in the anterior abdominal wall. Lymph Nodes: No lymphadenopathy. Pelvic Organs/Bladder: Normal. No mass. Bones/Soft Tissues: No significant abnormality. IMPRESSION: 1. No aortic dissection. 2. Postsurgical changes from infrarenal aortobiiliac endovascular withoutcomplication. 3. Mesenteric vessels are patent without evidence of end-organhypoperfusion. 4. Circumferential wall thickening of the distal sigmoid colon andrectum, which may be due to proctocolitis. Correlation with priorendoscopy findings recommended. ATTESTATION: I, Nicolette Bowers as teaching physician, have reviewed theimages for this case and if necessary edited the report originally createdby Lit Vazquez. us Denise Weiner PA-C IMG CT ABD/PELVIS Final Res ult * CT ANGIO CHEST WITH AND WITHOUT CONTRAST (05/14/2025 12:42 PM EDT) Anatomical Region Laterality Modality Chest, Thoracic Vasculature Comp uted Tomography 05/14/2025 1:42 PM EDT Impressions 05/14/2025 2:38 PM EDT 1. No aortic dissection. 2. Postsurgical changes from infrarenal aortobiiliac endovascular without complication. 3. Mesenteric vessels are patent without evidence of end-organ hypoperfusion. 4. Circumferential wall thickening of the distal sigmoid colon and rectum, which may be due to proctocolitis. Correlation with prior endoscopy findings recommended. ATTESTATION: I, Nicolette Bowers as teaching physician, have reviewed the images for this case and if necessary edited the report originally created by Lit Vazquez. Narrative 05/14/2025 2:[address] ANGIO CHEST WITH AND WITHOUT CONTRAST, CT ANGIO ABDOMEN/PELVIS WITH AND WITHOUT CONTRAST Referring clinician's provided indication for this examination in Epic: * Chest pain or back pain, aortic dissection suspected; abd/back pain, hx AAA repair 2016 TECHNIQUE: 1. Multidetector-row CTA of the chest was performed before and after administration of intravenous contrast using tailored dose modulation techniques. Images were reconstructed in the axial, coronal, and sagittal planes, including angiographic image post-processing. 2. Multidetector-row CTA of the abdomen and pelvis was performed with intravenous contrast using tailored dose modulation techniques. Images were reconstructed in the axial, coronal, and sagittal planes, including angiographic image post- processing. COMPARISON: None FINDINGS: VASCULAR: Aorta: There is no aortic dissection, aneurysm, intramural hematoma, or occlusion. Postsurgical changes from infrarenal aortobiiliac endovascular graft repair. No definite evidence of endoleak. Contrast Extravasation: None. Pulmonary Arteries: Well opacified without pulmonary embolus. Branch Arteries: Normal. No stenosis, occlusion, or dissection involving the arch vessel origins. The celiac axis, SMA and RAMANA are patent. Renal arteries are patent bilaterally. Aorto-iliac system is patent without significant stenosis bilaterally. NON-VASCULAR: CHEST: Devices/Tubes/Lines: None. Lungs: No suspicious nodules. Scattered calcified granulomas. The central airways are patent. Pleura: No pleural effusion or pneumothorax. Mediastinum: Normal heart size. No pericardial effusion. Mild amount of coronary calcifications. Lymph Nodes: No enlarged supraclavicular, axillary, mediastinal, or hilar lymph nodes. Chest Wall: No chest wall mass. Bones/Soft Tissues: No acute osseous abnormality. Chronic appearing mild compression deformity of the T6 superior endplate. ABDOMEN/PELVIS: Liver: No focal lesions. Biliary: Prior cholecystectomy. No biliary ductal dilatation. Spleen: No splenomegaly. Coarse calcified granulomas. Pancreas: Fatty parenchymal atrophy, with relative sparing of the tail. No masses or ductal dilatation. Adrenal Glands: No nodules. Kidneys/Ureters: No solid masses, stones, or hydronephrosis. Scarring at the right kidney lower pole, which may be related to prior infection. Bowel: Prior appendectomy. Postsurgical changes from prior sigmoid resection with intact anastomosis in the low pelvis. No small or large bowel wall dilatation to suggest obstruction. Mild circumferential wall thickening of the distal sigmoid colon and rectum (9:1153). Peritoneum/Retroperitoneum: No masses, pneumoperitoneum, or fluid. Postsurgical changes in the anterior abdominal wall. Lymph Nodes: No lymphadenopathy. Pelvic Organs/Bladder: Normal. No mass. Bones/Soft Tissues: No significant abnormality. Procedure Note Nicolette Bowers MD - 05/14/2025 CT ANGIO CHEST WITH AND WITHOUT CONTRAST, CT ANGIO ABDOMEN/PELVIS WITH ANDWITHOUT CONTRAST Referring clinician's provided indication for this examination in Epic: *Chest pain or back pain, aortic dissection suspected; abd/back pain, hxAAA repair 2015 TECHNIQUE: 1. Multidetector-row CTA of the chest was performed before and afteradministration of intravenous contrast using tailored dose modulationtechniques. Images were reconstructed in the axial, coronal, and sagittalplanes, including angiographic image post-processing. 2. Multidetector-row CTA of the abdomen and pelvis was performed withintravenous contrast using tailored dose modulation techniques. Imageswere reconstructed in the axial, coronal, and sagittal planes, includingangiographic image post- processing. COMPARISON: None FINDINGS: VASCULAR: Aorta: There is no aortic dissection, aneurysm, intramural hematoma, orocclusion. Postsurgical changes from infrarenal aortobiiliac endovasculargraft repair. No definite evidence of endoleak. Contrast Extravasation: None. Pulmonary Arteries: Well opacified without pulmonary embolus. Branch Arteries: Normal. No stenosis, occlusion, or dissection involvingthe arch vessel origins. The celiac axis, SMA and RAMANA are patent. Renalarteries are patent bilaterally. Aorto-iliac system is patent withoutsignificant stenosis bilaterally. NON-VASCULAR: CHEST: Devices/Tubes/Lines: None. Lungs: No suspicious nodules. Scattered calcified granulomas. The centralairways are patent. Pleura: No pleural effusion or pneumothorax. Mediastinum: Normal heart size. No pericardial effusion. Mild amount ofcoronary calcifications. Lymph Nodes: No enlarged supraclavicular, axillary, mediastinal, or hilarlymph nodes. Chest Wall: No chest wall mass. Bones/Soft Tissues: No acute osseous abnormality. Chronic appearing mildcompression deformity of the T6 superior endplate. ABDOMEN/PELVIS: Liver: No focal lesions. Biliary: Prior cholecystectomy. No biliary ductal dilatation. Spleen: No splenomegaly. Coarse calcified granulomas. Pancreas: Fatty parenchymal atrophy, with relative sparing of the tail. Nomasses or ductal dilatation. Adrenal Glands: No nodules. Kidneys/Ureters: No solid masses, stones, or hydronephrosis. Scarring atthe right kidney lower pole, which may be related to prior infection. Bowel: Prior appendectomy. Postsurgical changes from prior sigmoidresection with intact anastomosis in the low pelvis. No small or largebowel wall dilatation to suggest obstruction. Mild circumferential wallthickening of the distal sigmoid colon and rectum (9:1153). Peritoneum/Retroperitoneum: No masses, pneumoperitoneum, or fluid.Postsurgical changes in the anterior abdominal wall. Lymph Nodes: No lymphadenopathy. Pelvic Organs/Bladder: Normal. No mass. Bones/Soft Tissues: No significant abnormality. IMPRESSION: 1. No aortic dissection. 2. Postsurgical changes from infrarenal aortobiiliac endovascular withoutcomplication. 3. Mesenteric vessels are patent without evidence of end-organhypoperfusion. 4. Circumferential wall thickening of the distal sigmoid colon andrectum, which may be due to proctocolitis. Correlation with priorendoscopy findings recommended. ATTESTATION: I, Nicolette Bowers as teaching physician, have reviewed theimages for this case and if necessary edited the report originally createdby Lit Vazquez. us Denise Weiner PA-C IMG CT CHEST Final Resul t * ECG 12-LEAD (05/14/2025 12:00 PM EDT) Ventricular Rate EKG/MIN 75 BPM [facility] Atrial Rate 75 BPM [facility] AK Interval 156 ms [facility] QRS Duration 88 ms [facility] QT Interval 406 ms [facility] QTC Interval 453 ms [facility] P [place] 40 degrees [facility] R Wave [place] 22 degrees [facility] T Wave [place] 24 degrees [facility] 05/14/2025 12:0 0 PM EDT 05/14/2025 5:00 PM EDT Narrative [facility] - 05/14/2025 5:00 PM EDT Normal sinus rhythm Normal ECG No previous ECGs available Confirmed by Zac Cates ([id number]) on 05/14/2025 5:00:02 PM us Denise Weiner PA-C ECG ORDERABLES Final Resul t [facility] * Troponin (05/14/2025 11:16 AM EDT) Troponin-T, HS Gen5 8 0 - 14 ng/L [facility] Blood 05/14/2025 11:1 6 AM EDT 05/14/2025 11:25 AM EDT us Denise Weiner PA-C LAB BLOOD ORDERABLES Final Result [address] [address] * (ABNORMAL) PT-INR (05/14/2025 11:16 AM EDT) PT 26.7(H) 10.2 - 12.9 sec [facility] INR 2.1(H) 0.9 - 1.1 [facility] Comment:Therapeutic range fo r oral Vitamin K antagonists: 2.0-3.5 Blood 05/14/2025 11:1 6 AM EDT 05/14/2025 12:06 PM EDT us Denise Weiner PA-C LAB BLOOD ORDERABLES Final Result [address] [address] * Lipase (05/14/2025 10:25 AM EDT) LIPASE 35 16 - 63 U/L [facility] Blood 05/14/2025 10:2 5 AM EDT 05/14/2025 10:30 AM EDT us Mark Garcia MD LAB BLOOD ORDERAB LES Final Result Performing Organization Address [facility] Co de Phone Number [address] [address] * (ABNORMAL) LFTs (hepatic panel) (05/14/2025 10:25 AM EDT) ALKALINE PHOSPHATASE 116 39 - 117 U/L [facility] TOTAL BILIRUBIN 0.4 0.0 - 1.2 mg/dL [facility] DIRECT BILIRUBIN 0.1 0.0 - 0.2 mg/dL [facility] Bilirubin (Indirect) NOT CALCULATED 0 - 1.5 mg/dL [facility] AST 23 0 - 37 U/L [facility] ALT 22 0 - 40 U/L [facility] TOTAL PROTEIN 8.3(H) 6.5 - 8.0 g/dL [facility] ALBUMIN 4.0 3.9 - 4.8 g/dL [facility] GLOBULIN 4.3 1 - 4.8 g/dL [facility] A/G Ratio 0.93(L) 1.00 - 4.80 RATIO [facility] Blood 05/14/2025 10:2 5 AM EDT 05/14/2025 10:30 AM EDT us Mark Garcia MD LAB BLOOD ORDERAB LES Final Result [address] [place] [address] * (ABNORMAL) Basic metabolic panel (05/14/2025 10:25 AM EDT) SODIUM 138 133 - 146 mmol/L [facility] CHLORIDE 104 96 - 108 mmol/L [facility] POTASSIUM 4.1 3.3 - 5.1 mmol/L [facility] CO2 22 21 - 35 mmol/L [facility] BUN 12 6 - 19 mg/dL [facility] CREATININE 1.10 0.5 - 1.5 mg/dL [facility] GLUCOSE 188(H) 70 - 99 mg/dL [facility] CALCIUM 9.1 8.4 - 10.3 mg/dL [facility] EGFR 81 >59 mL/min/1.7 3m2 [facility] Comment:Estimated glomerular filtration rate calculated using the CKD-EPI refit equation. ANION GAP 16 10 - 20 mmol/L [facility] Blood 05/14/2025 10:2 5 AM EDT 05/14/2025 10:30 AM EDT us Mark Garcia MD LAB BLOOD ORDERAB LES Final Result [address] [address] * (ABNORMAL) CBC and differential (05/14/2025 10:25 AM EDT) WBC 4.01 4.00 - 11.00 K/uL [facility] RBC 4.43(L) 4.50 - 5.90 M/uL [facility] HGB 12.9(L) 13.5 - 17.5 g/dL [facility] HCT 40.6(L) 41.0 - 53.0 % [facility] PLT 139(L) 150 - 450 K/uL [facility] MCV 91.6 80.0 - 100.0 fL [facility] MCH 29.1 27.0 - 31.0 pg [facility] MCHC 31.8(L) 32.0 - 36.0 g/dL [facility] RDW 14.6(H) 11.5 - 14.5 % [facility] MPV 9.3 8.4 - 12.0 fL [facility] NRBC 0.00 0.00 /100 WBCs [facility] ABSOLUTE NRBC 0.00 0.00 K/uL [facility] DIFF METHOD Auto [facility] NEUTS 47.0(L) 48.0 - 76.0 % [facility] LYMPHS 42.4(H) 18.0 - 41.0 % [facility] MONOS 9.0 4.0 - 11.0 % [facility] EOS 0.7 0.0 - 5.0 % [facility] BASOS 0.7 0.0 - 1.5 % [facility] Granulocytes, immature (%) 0.2 0.0 - 0.9 % [facility] ABSOLUTE NEUTS 1.88(L) 1.92 - 7.60 K/uL [facility] ABSOLUTE LYMPHS 1.70 0.72 - 4.10 K/uL [facility] ABSOLUTE MONOS 0.36 0.16 - 1.10 K/uL [facility] ABSOLUTE EOS 0.03 0.00 - 0.50 K/uL [facility] ABSOLUTE BASOS 0.03 0.00 - 0.15 K/uL [facility] Granulocytes, immature 0.01 0.00 - 0.09 K/uL [facility] Blood 05/14/2025 10:2 5 AM EDT 05/14/2025 10:30 AM EDT us Mark Garcia MD LAB BLOOD ORDERAB LES Final Result [address] [address] * (ABNORMAL) Urinalysis w/reflex Urine Culture (05/14/2025 10:11 AM EDT) COLOR Yellow Yellow [facility] CLARITY Clear [facility] GLUCOSE 2+(A) Negative [facility] BILI Negative Negative [facility] KETONES Negative Negative [facility] SPECIFIC GRAVITY >1.030 1.005 - 1.030 [facility] BLOOD Negative Negative [facility] PH 5.5 5.0 - 8.0 [facility] Protein-UA Negative Negative [facility] NITRITE Negative Negative [facility] Leukocyte esterase, ur Negative Negative [facility] Urine (Urine) 05/14/2025 10: 11 AM EDT 05/14/2025 3:40 PM EDT us Mark Garcia MD URINE ORDERABLES Final Result [facility] [address] [place] [address] documented in this encounter Visit Diagnoses Diagnosis Edema, unspecified type- Primary Proctocolitis Ulcerative (chronic) proctitis documented in this encounter Administered Medications Inactive Administered Medications - up to 3 most recent administrations Medication Order MAR Action Action Date Dose Rate Site iohexoL (OMNIPAQUE-350) 350 mg iodine/mL solution 100 mL 100 mL, Intravenous, Once as needed, pre procedure/treatment, Starting on Karmen 05/14/25 at 1232, For 1 dose, Procedural Contrast/Med Active Now, Each mL contains 755 mg of iohexol equivalent to 350 mg of organic iodine. Given 05/14/2025 12:33 PM EDT 100 mL morphine injection syringe 4 mg 4 mg, Intravenous, Once, On Karmen 05/14/25 at 1345, For 1 dose Given 05/14/2025 1:45 PM EDT 4 mg morphine injection syringe 4 mg 4 mg, Intravenous, Once, On Karmen 05/14/25 at 1715, For 1 dose Given 05/14/2025 5:09 PM EDT 4 mg sodium chloride (NS) 0.9 % syringe flush 3 mL 3 mL, Intravenous, As needed, line care, Starting on Karmen 05/14/25 at 1005, Per Institutional IV Line Care Policy. documented in this encounter Active and Recently Administered Medications Times are shown in EDT. Scheduled Medication Order 05/12/2025 05/13/2025 05/14/2025 morphine injection syringe 4 mg (COMPLETED) 4 mg, Intravenous, Once, On Karmen 05/14/25 at 1345, For 1 dose 1345 (Given - Provid er: Jose Dung Kele, RN) morphine injection syringe 4 mg (COMPLETED) 4 mg, Intravenous, Once, On Karmen 05/14/25 at 1715, For 1 dose 1709 (Given - Provid er: Jose Olivas RN) PRN Medication Order 05/12/2025 05/13/2025 05/14/2025 iohexoL (OMNIPAQUE-350) 350 mg iodine/mL solution 100 mL (COMPLETED) 100 mL, Intravenous, Once as needed, pre procedure/treatment, Starting on Karmen 05/14/25 at 1232, For 1 dose, Procedural Contrast/Med Active Now, Each mL contains 755 mg of iohexol equivalent to 350 mg of organic iodine. 1233 (Given - Provid er: Jayy Donahue) sodium chloride (NS) 0.9 % syringe flush 3 mL 3 mL, Intravenous, As needed, line care, Starting on Karmen 05/14/25 at 1005, Per Institutional IV Line Care Policy. documented in this encounter Additional Health Concerns Infection Onset Date Last Indicated Resolved Time CDiff-Risk 05/14/2025 05/16/2025 05/16/2025 1:32 PM EDT documented as of this encounter Additional Source Comments The information contained in this document represents components of the legal health record. It is not the complete legal health record.[facility]
--- OUTSIDE RECORDS SUMMARY | 2025-05-16 09:30 | XMS_ITS | Encounter Summary ---
Author Organization [facility] Address [address] [place] [id number] Phone Care Team Providers Care Aviation Consultant Name Role Phone Pcp, Unknown Primary Care Provider Unavailabl e Encounter Details Date Type Department Care Team (Latest Contact Info) Description 05/16/2025 9:30 AM EDT - 05/16/2025 11:59 PM EDT Hospital Encounter [facility] [address] [place] [address] Denise Weiner PAJollyC [address] [place] [address] [email or web address] Discharge Disposition: Home or Self Care [...] your housing situation today? I have misty sing 05/14/2025 How many times have you move [...] AM EDT documented as of this encounter Plan of Treatment Pending Results Name Type Priority Associated Diagnoses Date /Time Ova and parasites, stool Microbiology Routine 05/15/2025 6:00 PM EDT Stool culture Microbiology Routine 6:00 PM EDT Scheduled Orders Name Type Priority Associated Diagnoses Orde r Schedule Ova and parasites, stool Microbiology Routine As Needed for 1 Occurrences starting 05/16/2025 until 05/16/2025 documented as of this encounter Procedures Procedure Name Priority Date/Time Associated Diagnosis Comments GIARDIA CRYPTOSPORIDIUM SCREEN Routine 05/16/2025 10:21 AM EDT Diarrhea, unspecified type C. DIFFICILE PCR Routine 05/15/2025 6:00 PM EDT Diarrhea, unspecified type STOOL CULTURE Routine 05/15/2025 6:00 PM EDT documented in this encounter Results * Giardia and cryptosporidium screen (05/16/2025 10:21 AM EDT) GIARDIA AG Negative Negative [facility] Cryptosporidiu m, stool Negative Negative [facility] Stool (Stool) 05/16/2025 10: 21 AM EDT 05/16/2025 1:09 PM EDT Denise Weiner PA-C NON CULTURE MICROBIOLOGY Fi nal Result Performing Organization Address [facility] Co de Phone Number [address] [address] * C. DIFFICILE PCR (05/15/2025 6:00 PM EDT) C.DIFFICILE PCR Negative Negative [facility] C.DIFFICILE STRAIN PRESUMPTIVE NEGATIVE PRESUMPTIVE NEGATIVE [facility] Comment:Detection of 027/NAP 1/BI strains of C.difficile is presumptive and is solely for epidemiological purposes and is not intended to guide or monitor treatment of infections. Stool (Stool) 05/15/2025 6:0 0 PM EDT 05/16/2025 10:14 AM EDT Denise Weiner PA-C MICROBIOLOGY - GENERAL REID INGRAM Final Result Performing Organization Address [facility] Co de Phone Number [address] [address] documented in this encounter Visit Diagnoses Diagnosis Diarrhea, unspecified type documented in this encounter Additional Health Concerns Infection Onset Date Last Indicated Resolved Time CDiff-Risk 05/14/2025 05/16/2025 05/16/2025 1:32 PM EDT documented as of this encounter Care Teams Aviation Consultant Relationship Specialty Start Date End Date Pcp, Unknown PCP - General 05/16/25 documented as of this encounter Additional Source Comments The information contained in this document represents components of the legal health record. It is not the complete legal health record.[facility]
--- NOTE | ~2025-05-17 | CT_ITS ---
CLINICAL HISTORY: abd pain, s p colectomy for div. disease CT abdomen and pelvis with contrast Comparison: CT/REG/SR - CT ABDOMEN PELVIS W IV CON - 04/14/25 21:[address]/SR - CT GI BLEED ABD PEL WO/W IVCON - 09/25/24 19:[address]/SR - CT ABDOMEN PELVIS W IV CON - 06/06/24 16:42 EDT Findings: No consolidation at the lung bases. Calcified granuloma. Subsegmental atelectasis versus linear scarring. Status post cholecystectomy. Underdistended thick-walled bladder. Splenic granulomatosis. Mild scarring in the lower pole of the right kidney. Left renal subcentimeter low attenuating lesion. The other solid organs are unremarkable. No bowel wall thickening or dilation. Status post appendectomy. Anastomotic sutures at the rectosigmoid colon. Trace amount of adjacent stranding, stable since 06/06/24. Small adjacent pericolonic lymph nodes measure up to 4 mm in short axis, also unchanged. no fluid collection or free air. Status post infrarenal abdominal aorta endovascular stent graft, which is patent. The aneurysm sac measures up to 2.7 cm. Moderate calcified atherosclerotic disease. No lymphadenopathy. No ascites. Status post ventral hernia repair. No acute osseous abnormality. Impression: Underdistended thick-walled bladder. Correlate with urinalysis to exclude cystitis. This document has been electronically signed by: Tammy Cannon MD on 05/17/2025 12:59:01
[2025-05-17 09:11] VITALS: BP 120/72; PULSE 81; RESP 18; TEMP 36.7; O2SAT 98; BMI 26.8
[2025-05-17 10:10] LABS: MANUAL DIFF FLAG NO
[2025-05-17 10:12] LABS: Hematocrit 38.6 % (42.0-52.0); Hemoglobin 12.7 g/dl (14.0-18.0); Imm Gran Abs Auto 0.02 X10*3/uL (0.00-0.03); Imm Gran Pct Auto 0.3 % (0.0-0.4); Lymphocytes Absolute Auto 1.6 X10*3/uL (1.2-4.9); Mean Corpuscular HGB Conc 32.9 g/dl (31.0-36.0); Mean Corpuscular Hemoglobin 29.4 pg (27.0-33.0); Mean Corpuscular Volume 89.4 fL (80.0-98.0); NRBC Abs Auto 0.000 X10*3/uL (0.0-0.012); NRBC Pct Auto 0.0 /100WBC (0.0-0.2); Platelet Count 141 X10*3/uL (160-400); Red Blood Count 4.32 X10*6/uL (4.60-5.80); White Blood Count 6.9 X10*3/uL (4.8-10.8)
--- NOTE | 2025-05-17 10:13 | ED.ABDPAIN ---
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 Pain is localized to the left lower quadrant area sometimes radiates to the left flank area, passing flatus, no fever, chills, no dysuria, no frequency urination. Surgical history significant food hernia repair, sigmoid colectomy. Related Data Home Medications ?Medication ?Instructions ?Recorded ?Confirmed albuterol sulfate 90 mcg/actuation 2 inh inhalation Q4H PRN 06/26/24 09/25/24 aerosol inhaler (Ventolin HFA) wheezing/sob atorvastatin 80 mg tablet 80 mg PO DAILY 06/26/24 09/25/24 cholecalciferol (vitamin D3) 50 50 mcg PO DAILY 06/26/24 09/25/24 mcg (2,000 unit) capsule darunavir 800 mg-cobicistat 150 mg 1 tab PO DAILY 06/26/24 09/25/24 tablet (Prezcobix) empagliflozin 25 mg tablet 25 mg PO DAILY 06/26/24 09/25/24 (Jardiance) famotidine 20 mg tablet 40 mg PO DAILY 06/26/24 09/25/24 lacosamide 100 mg tablet (Vimpat) 100 mg PO BID 06/26/24 09/25/24 levothyroxine 25 mcg tablet 25 mcg PO DAILY@0600 06/26/24 09/25/24 pantoprazole 40 mg tablet,delayed 40 mg PO DAILY@0630 06/26/24 09/25/24 release raltegravir 600 mg tablet 600 mg PO BID 06/26/24 09/25/24 (Isentress HD) tenofovir disoproxil fumarate 300 300 mg PO DAILY 06/26/24 09/25/24 mg tablet trazodone 150 mg tablet 150 mg PO BEDTIME 06/26/24 09/25/24 semaglutide 1 mg/dose (4 mg/3 mL) 1 mg subcut TU 09/25/24 09/25/24 subcutaneous pen injector (Ozempic) warfarin 10 mg tablet 10 mg PO DAILY 09/25/24 09/25/24 Previous Rx's ?Medication ?Instructions ?Recorded fondaparinux 7.5 mg/0.6 mL 7.5 mg (0.6 mL) subcut Q24H #0 mL 09/30/24 subcutaneous solution syringe amoxicillin 875 mg-potassium 1 tab PO BID #16 tabs 04/14/25 clavulanate 125 mg tablet ondansetron HCl 4 mg tablet 4 mg PO Q8H #20 tabs 04/28/25 morphine 10 mg capsule,extended 10 mg PO DAILY PRN pain #4 caps 05/17/25 release pellets Allergies Allergy/AdvReac Type Severity Reaction Status Date / Time influenza virus vaccine, Allergy Severe GUILLIAN Verified 05/17/25 09:12 specific (FLU VACCINE) BARRE HX. tramadol (TRAMADOL) Allergy Severe SEIZURES Verified 05/17/25 09:12 acetaminophen (From PERCOCET) Allergy Intermediate ITCHING Verified 05/17/25 09:12 carbamazepine (From TEGRETOL) Allergy Intermediate HALLUCINATI Verified 05/17/25 09:12 ONS lamotrigine (From LAMICTAL) Allergy Intermediate ITCHING Verified 05/17/25 09:12 metoclopramide (From REGLAN) Allergy Intermediate ITCHY Verified 05/17/25 09:12 oxycodone (From PERCOCET) Allergy Intermediate ITCHING Verified 05/17/25 09:12 SEAFOOD Allergy Severe ANAPHYLAXIS Uncoded 04/14/25 13:03 Review of Systems Review of Systems All other systems are reviewed and are negative Constitutional: Reports as per HPI and Reports no additional constitutional complaints Eyes: Reports as per HPI and Reports no additional eye complaints Reports system reviewed and no additional complaints, except as documented Cardiovascular: Reports as per HPI and Reports no additional cardiovascular complaints Respiratory: Reports as per HPI and Reports no additional respiratory complaints Gastrointestinal: Reports as per HPI and Reports no additional gastrointestinal complaints Genitourinary: Reports no additional female genitourinary complaints Musculoskeletal: Reports no additional musculoskeletal complaints Skin/Breast: Reports system reviewed and no additional complaints, except as docu Psychiatric: Reports no additional psychiatric complaints Endocrine: Reports no additional endocrine complaints Hematologic/Lymphatic: Reports no additional hematologic/lymphatic complaints Allergic/Immunologic: Reports no additional allergic/immunologic complaints Reports system reviewed and no additional complaints, except as documented and Reports Abnormal speech present [facility] Past Medical History Medical History Seizure Popliteal artery aneurysm AAA (abdominal aortic aneurysm) Left sided abdominal pain COVID-19 DVT (deep venous thrombosis) Diabetes Seizure disorder HIV (human immunodeficiency virus infection) Surgical History History of colon resection Status post cholecystectomy Status post laparoscopic appendectomy H/O fasciotomy S/P AAA (abdominal aortic aneurysm) repair S/P IVC filter Social History Social History Household Members: Spouse and Family Housing: House Do you presently have visiting nurse or other home services: No Alcohol intake: never Comment: pt refuses high fall risk precautions Patient Tobacco Use Status: Former Tobacco user Smoked in Last 30 Days: No Use of substances other than those prescribed or required for medical reasons: No Advance Directives: Yes Advance Directives on File: Yes Advance Directives Date on File: 09/26/24 service: No Physical Exam ED Vital Signs: Vital Signs - 24 hr 05/17/25 09:11 05/17/25 10:30 Temperature 98.1 F Pulse Rate 81 Respiratory Rate 18 22 H Blood Pressure 120/72 Pulse Oximetry 98 Oxygen Delivery Method Room Air BMI result Body Mass Index 26.8 Vital signs have been reviewed and appear to be correct. Blood pressure elevated. Heart rate normal. Respiratory rate normal. Temperature normal. Oxygen saturation normal. Appearance: Alert. Oriented X3. No acute distress. Head: Normal external exam. Normocephalic. Atraumatic. No Arguelles signs noted. No raccoon eyes noted Eyes: PERRLA. EOMI. Conjunctiva and sclera normal. Eyelids normal. ENT: TM's Normal. Pharynx normal. Uvula midline. Moist mucous membranes. No trismus noted. No drooling noted. No muffled voice noted. Neck: Normal inspection. Neck supple. FROM. No adenopathy. Thyroid Normal. No meningeal signs. No neck mass noted. CVS: Normal heart rate and rhythm. Heart sound normal. No murmurs noted. Pulses normal throughout. Respiratory: No respiratory distress. Painless inspiration. Breath sounds normal. No wheezes/rales/rhonchi noted. Chest nontender. No accessory muscle usage noted or decreased air movement noted. Abdomen: Soft and nontender. Bowel sounds normal in all 4 quadrants. No distention noted. No organomegaly noted. No visible injury noted. Back: No CVA tenderness. Full range of motion noted. Skin: Skin warm and dry. Normal skin color. Normal skin turgor. No rashes/lesions/lacerations noted. Extremities: No lower extremity edema. Extremities exhibit normal range of motion. Extremities nontender. Neuro: Oriented X 3. Cranial nerve exam: II-XII are grossly intact No motor deficit. No sensory deficit. Reflexes normal. Course Reevaluation(s) Reevaluation #1: Abdominal pain, normal WBCs, CT abdomen pelvis is unremarkable for acute pathology. Patient is asking for pain medicine to go home due to wide list of allergies will start on morphine oral pills. Patient was instructed to follow-up with his PCP/GI. INR is therapeutic. Time: 14:26 Medical Decision Making Differential Diagnosis Differential Diagnoses: The differential diagnosis associated with the presentation includes (Small-bowel obstruction, diverticulitis, colitis, intra-abdominal abscess, pancreatitis, acute appendicitis, severe anemia, electrolyte derangement.) Admission/Observation Consideration of admission/observation: Escalation of care including admission/observation considered Lab Data MDM Lab Attestation statement: I reviewed the patient's lab results. 05/17/25 10:04 05/17/25 10:04 Labs: Lab Results 05/17/25 05/17/25 05/17/25 Range/Units 10:04 10:27 13:42 WBC 6.9 (4.8-10.8) X10*3/uL RBC 4.32 L (4.60-5.80) X10*6/uL Hgb 12.7 L (14.0-18.0) g/dl Hct 38.6 L (42.0-52.0) % MCV 89.4 (80.0-98.0) fL MCH 29.4 (27.0-33.0) pg MCHC 32.9 (31.0-36.0) g/dl RDW 14.7 (11.0-16.0) % Plt Count 141 L (160-400) X10*3/uL MPV 9.2 L (9.4-12.4) fL Immature Gran % (Auto) 0.3 (0.0-0.4) % Neut % (Auto) 66.9 (45-73) % Lymph % (Auto) 23.0 (20-40) % Kay % (Auto) 9.0 (2-11) % Eos % (Auto) 0.4 (0-4) % Baso % (Auto) 0.4 (0-2) % Lymph # (Auto) 1.6 (1.2-4.9) X10*3/uL Kay # (Auto) 0.6 (0.1-1.2) X10*3/uL Eos # (Auto) 0.0 (0.0-0.4) X10*3/uL Baso # (Auto) 0.0 (0.0-0.2) X10*3/uL Abs Immat Gran (auto) 0.02 (0.00-0.03) X10*3/uL Absolute Neuts (auto) 4.6 (2.0-8.3) x10*3/uL Absolute Nucleated RBC 0.000 (0.0-0.012) X10*3/uL Nucleated RBC % (auto) 0.0 (0.0-0.2) /100WBC PT 26.6 H D (10.9-12.4) SEC INR 2.3 H (0.9-1.1) Sodium 138 (135-145) mmol/L Potassium 3.8 (3.3-5.1) mmol/L Chloride 107 (96-108) mmol/L Carbon Dioxide 24 (22-29) mmol/L Anion Gap 11 L (12-20) BUN 11 (9-16) mg/dL Creatinine 1.12 (0.5-1.4) mg/dL Estim Creat Clear Calc 78.0 Estimated GFR > 60 Random Glucose 113 (60-115) mg/dL Calcium 8.7 (8.4-10.2) mg/dL Total Bilirubin 0.4 (0.0-1.0) mg/dL AST 29 (5-37) U/L ALT 28 (0-40) U/L Alkaline Phosphatase 109 (39-117) U/L Total Protein 8.2 H (6.5-8.0) g/dL Albumin 4.0 (3.5-5.0) g/dL Lipase 11 Cancelled (8-78) U/L Urine Color Yellow Urine Appearance Clear Urine pH 8.0 (5.0-9.0) Ur Specific [place] >= 1.030 H (1.005-1.025) Urine Protein Negative (Neg-Trace) mg/dL Urine Glucose (UA) Negative (Negative) mg/dL Urine Ketones Negative (Negative) mg/dL Urine Blood Negative (Negative) Urine Nitrite Negative (Negative) Ur Leukocyte Esterase Negative (Negative) Independent Interpretation I performed an independent interpretation of an: CT Scan (Abdomen pelvis:Underdistended thick-walled bladder. Correlate with urinalysis to exclude cystitis.) Radiology Impression Discussion of test interpretation with radiology: I have reviewed the radiologist's reading. Medications Administered Discontinued Medications Generic Name Dose Route Start Last Admin Trade Name Freq PRN Reason Stop Dose Admin Sodium Chloride 1,000 mls @ 999 mls/hr 05/17/25 10:10 05/17/25 12:55 Ns IV 05/17/25 11:10 Infused .Q1H1M ONE Infusion Iohexol 100 ml 05/17/25 10:39 05/17/25 10:39 Iohexol 350 Mg/Ml 100 Ml Infus..Btl IV 05/17/25 10:40 85 ml ONCE ONE Administration Morphine Sulfate 2 mg 05/17/25 10:10 05/17/25 10:30 Morphine Sulfate 2 Mg/Ml Cartridge IVPUSH 05/17/25 10:11 2 mg ONCE ONE Administration Protocol Critical Care Time Critical Care Time Critical Care Time: Yes Total Critical Care Time: 60 Attestation: The patient was critically ill with a high probability of imminent or life-threatening deterioration. I spent greater than 30 minutes of discontinuous time evaluating the patient, delivering critical care at the bedside, discussing evaluating data with consultants. Critical care time does not include time spent performing separately billable procedures or teaching. Time spent performing critical care was 60 minutes. Discharge Plan Discharge Clinical Impression: Abdominal pain Patient Disposition: Home, Self-Care Instructions: Abdominal Pain (ED) Prescriptions: New morphine 10 mg capsule,extend.release pellets 10 mg PO DAILY PRN (Reason: pain) Qty: 4 0RF Rx Instructions: Partial Fill upon patient request. No Action warfarin 10 mg tablet 10 mg PO DAILY Ozempic 1 mg/dose (4 mg/3 mL) pen injector 1 mg subcut TU fondaparinux 7.5 mg/0.6 mL Syringe 7.5 mg subcut Q24H Qty: 0 0RF amoxicillin-pot clavulanate 875-125 mg tablet 1 tab PO BID Qty: 16 0RF atorvastatin 80 mg tablet 80 mg PO DAILY famotidine 20 mg tablet 40 mg PO DAILY lacosamide [Vimpat] 100 mg tablet 100 mg PO BID levothyroxine 25 mcg tablet 25 mcg PO DAILY@0600 pantoprazole 40 mg tablet,delayed release (DR/EC) 40 mg PO DAILY@0630 trazodone 150 mg tablet 150 mg PO BEDTIME tenofovir disoproxil fumarate 300 mg tablet 300 mg PO DAILY cholecalciferol (vitamin D3) 50 mcg (2,000 unit) capsule 50 mcg PO DAILY Jardiance 25 mg tablet 25 mg PO DAILY Prezcobix 800-150 mg-mg tablet 1 tab PO DAILY Isentress HD 600 mg tablet 600 mg PO BID albuterol sulfate [Ventolin HFA] 90 mcg/actuation HFA aerosol inhaler 2 inh inhalation Q4H PRN (Reason: wheezing/sob) ondansetron HCl 4 mg tablet 4 mg PO Q8H Qty: 20 0RF Referrals: [place] [Primary Care Provider, Primary Care] Print Language: Greek
--- OUTSIDE RECORDS SUMMARY | 2025-05-17 10:17 | XMS_ITS | Clinical Summary ---
Author Organization [facility] Address [address] [place] [id number] Care Team Providers Care Education And Training Coordinator Name Role Phone Thomas Kam Primary Care [...] of 2) 1992 Colonoscopy 2018 Influenza Vaccine 03/27/2025 07/29/2013, 05/06/2010 COVID-19 Vaccine (4 - 2024-2 6 season) 2025 04/03/2022, 09/02/2021, 08/08/2021 HIV Screening Completed 03/04/2024, 12/27, 10/23/2023, Additional history exists Chronic Controlled Substance User PDMP Review Discontinued 10/29/2024 Insurance [facility] MEDICARE PART A & B Care Teams Education And Training Coordinator Relationship Specialty Start Date End Date Thomas Kam PA PCP - General Emergency Medicine 03/03/23
--- OUTSIDE RECORDS SUMMARY | 2025-05-17 10:17 | XMS_ITS | Clinical Summary ---
Author Organization [facility] Address [address] [place] [address] Phone Care Team Providers Care Sumatra Opener Name Role Phone Thomas Kam Primary Care Provider [phone] Allergies Active Allergy Reactions Criticality Noted Date Comments Acetaminophen Itching 10/13/2024 Flu Vaccine [id number](36mo,Up) 10/13/2024 GUILLAN BARRE SYNDROME Lamotrigine Rash 10/13/2024 [...] diarrhea 12/10/2024 HIV (human immunodeficiency virus infection) ([facility] V24, [facility] V28) 11/12/2024 Hypothyroid 11/12/2024 Epilepsy ([facility] V24, [facility] V28) 11/12/2024 DVT (deep venous thrombosis) ([facility] V24, [facility] V28) 11/12/2024 Deep vein thrombosis (DVT) o f both lower extremities ([facility] V24, [facility] V28) 11/12/2024 HLD (hyperlipidemia) 11/12/2024 Type 2 diabetes mellitus, [facility] long-term current use of insulin ([facility] V24, [facility] V28) 11/12/2024 Diverticulitis large intesti [...] Team Description 03/23/2025 Telephone Gastroenterology - [address] [place] [phone] Pablo Yip PA from Last 3 Months [...] PM EDT Office Visit Gastroenterology - [address] [place] [phone] Pablo Yip PA [address] [place] [phone] Health Maintenance Due Date Last Done Comments [...] Td or Tdap) 01/24/2034 01/25/2024, 09/30/2013, 06/05/2003 RSV Immunization Adult Patients (1 - 1-dose 75+ series) 2048 Hepatitis A Vaccines Completed 11/16/2003, 03/27/20 03 [...] mmol/L LAB CHEMISTRY METHOD 10/13/2024 3:56 PM [facility] Potassium 3.9 3.5 - 5.5 mmol/L LAB CHEMISTRY METHOD 10/13/2024 3:56 PM [facility] Chloride 107 96 - 110 mmol/L LAB CHEMISTRY METHOD 10/13/2024 3:56 PM [facility] CO2 22 21 - 32 mmol/L LAB CHEMISTRY METHOD 10/13/2024 3:56 PM [facility] Anion Gap 9 3 - 11 LAB CHEMISTRY METHOD 10/13/2024 3:56 PM [facility] Glucose 113(H) 70 - 100 mg/dL LAB CHEMISTRY METHOD 10/13/2024 3:56 PM [facility] BUN 10 5 - 25 mg/dL LAB CHEMISTRY METHOD 10/13/2024 3:56 PM [facility] Creatinine 1.30 0.70 - 1.30 mg/dL LAB CHEMISTRY METHOD 10/13/2024 3:56 PM [facility] eGFR 67 >=60 mL/min/1. 73m2 LAB CHEMISTRY METHOD 10/13/2024 3:56 PM [facility] Comment:Calculation based on the Chronic Kidney Disease Epidemiology Collaboration (CKD-EPI) equation refit without adjustment for race. BUN/Creatinine Ratio 7.7 LAB CHEMISTRY METHOD 10/13/2024 3:56 PM [facility] Calcium 9.5 8.5 - 10.5 mg/dL LAB CHEMISTRY METHOD 10/13/2024 3:56 PM [facility] AST (SGOT) 41 10 - 42 unit/L LAB CHEMISTRY METHOD 10/13/2024 3:56 PM [facility] ALT (SGPT) 48 10 - 60 unit/L LAB CHEMISTRY METHOD 10/13/2024 3:56 PM [facility] Alkaline Phosphatase 146(H) 42 - 121 unit/L LAB CHEMISTRY METHOD 10/13/2024 3:56 PM [facility] Total Protein 8.9(H) 6.0 - 8.0 g/dL LAB CHEMISTRY METHOD 10/13/2024 3:56 PM [facility] Albumin 3.8 3.2 - 5.0 g/dL LAB CHEMISTRY METHOD 10/13/2024 3:56 PM [facility] Total Bilirubin 0.4 0.0 - 1.4 mg/dL LAB CHEMISTRY METHOD 10/13/2024 3:56 PM [facility] Blood Venous blood specimen / Unknown Venipuncture / Unknown 10/13/2024 3:03 PM EST 10/13/2024 3:26 PM EST us Devin Mo MD LAB BLOOD ORDERABLES Agueda l Result [facility] [address] [place] [address], * Colonoscopy (09/20/2021) Colonoscopy abnormal, abstracted Anatomical Region Laterality Modality Other Historical Provider MD HEALTH MAINTENANCE Final Result from Last 3 Months or Most Recently Relevant to Health Maintenance Insurance [place] Advance Directives Documents on File Type Date Recorded 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
--- OUTSIDE RECORDS SUMMARY | 2025-05-17 10:17 | XMS_ITS | Clinical Summary ---
Author Organization [facility] Address [address] [place] [address] Care Team Providers Care Data Center Solutions Architect Name Role Phone Thomas Kam Primary Care [...] age to complete this topic Care Teams Data Center Solutions Architect Relationship Specialty Start Date End Date Thomas Kam PA [address] [place] [phone] PCP - General Physician Poultry And Fish Butcher 02/16/23
--- OUTSIDE RECORDS SUMMARY | 2025-05-17 10:17 | XMS_ITS | Encounter Summary ---
Author Organization [facility] Address [address] [place] [phone] Phone Care Team Providers Care Ocean Biologist Name Role Phone Pcp, Unknown Primary Care Provider Unavailabl e Encounter Details Date Type Department Care Team (Late st Contact Info) Description 05/14/2025 Procedure [facility], Ct Scan - [address] [id number] Social History Tobacco Use Types Packs/Day Years [...] AM EDT documented as of this encounter Functional Status * Calculated C-SSRS Risk Score (Lifetime/Recent) Answer Date of Assessment Author No Risk Indicated 05/14/2025 9:56 AM EDT Clay Yost, BLANCO * Thayer Suicide Severity Rating Scale (Screener/Recent Self-Report) Question Answer Date of Assessment Author 1. Wish to be (Past 1 Month) No 025 9:56 AM EDT Clay Yost, BLANCO 2. Non-Specific Active Suici rylan Thoughts (Past 1 Month) No 05/14/2025 9:56 AM EDT Clay Yost, BLANCO 6. Suicidal Behavior (Lifetime) No 9:56 AM EDT Clay Yost, RN documented as of this encounter Plan of Treatment Not on file documented as of this encounter Visit Diagnoses Not on filedocumented in this encounter Additional Health Concerns Infection Onset Date Last Indicated Resolved Time CDiff-Risk 05/14/2025 05/16/2025 05/16/2025 1:32 PM EDT documented as of this encounter Care Teams Ocean Biologist Relationship Specialty Start Date End Date Pcp, Unknown PCP - General 05/16/25 documented as of this encounter Additional Source Comments The information contained in this document represents components of the legal health record. It is not the complete legal health record.[facility]
--- OUTSIDE RECORDS SUMMARY | 2025-05-17 10:17 | XMS_ITS | Encounter Summary ---
Author Organization [facility] Address [address] [facility] [address] [place] [address] Phone Care Team Providers Care Pricer Name Role Phone Pcp, Unknown Primary Care Provider Unavailabl e Encounter Details Date Type Department Care Team (Latest Contact Info) Description 05/16/2025 Transcribe Orders [facility] [address] [place] [address] Denise Weiner PA-C [address] [place] [address] [email or web address] Diarrhea, unspecified type (Primary Dx) Social History Tobacco Use Types Packs/Day Years [...] on file documented as of this encounter Results * Giardia and cryptosporidium screen (05/16/2025 10:21 AM EDT) GIARDIA AG Negative Negative [facility] Cryptosporidiu m, stool Negative Negative [facility] Stool (Stool) 05/16/2025 10: 21 AM EDT 05/16/2025 1:09 PM EDT us Denise Weiner PA-C NON CULTURE MICROBIOLOGY Fi nal Result [facility] [address] [place] [address] documented in this encounter Visit Diagnoses Diagnosis Diarrhea, unspecified type- Primary documented in this encounter Additional Health Concerns Infection Onset Date Last Indicated Resolved Time CDiff-Risk 05/14/2025 05/16/2025 05/16/2025 1:32 PM EDT documented as of this encounter Care Teams Pricer Relationship Specialty Start Date End Date Pcp, Unknown PCP - General 05/16/25 documented as of this encounter Additional Source Comments The information contained in this document represents components of the legal health record. It is not the complete legal health record.[facility]
--- OUTSIDE RECORDS SUMMARY | 2025-05-17 10:17 | XMS_ITS | Encounter Summary ---
Author Organization [facility] Address [address] [facility] [address] [place] [phone] Phone Care Team Providers Care Railcar Foreman Name Role Phone Pcp, Unknown Primary Care Provider Unavailabl e Encounter Details Date Type Department Care Team (Latest Contact Info) Description 05/16/2025 Transcribe Orders [facility] [address] [place] [address] Denise Weiner PA-C [address] [place] [address] [email or web address] Diarrhea, unspecified type (Primary Dx) Social [...] documented as of this encounter Results * C. DIFFICILE PCR (05/15/2025 6:00 PM EDT) C.DIFFICILE PCR Negative Negative [facility] C.DIFFICILE STRAIN PRESUMPTIVE NEGATIVE PRESUMPTIVE NEGATIVE [facility] Comment:Detection of 027/NAP 1/BI strains of C.difficile is presumptive and is solely for epidemiological purposes and is not intended to guide or monitor treatment of infections. Stool (Stool) 05/15/2025 6:0 0 PM EDT 05/16/2025 10:14 AM EDT us Denise Weiner PA-C MICROBIOLOGY - GENERAL REID INGRAM Final Result [facility] [address] [place] [address] documented in this encounter Visit Diagnoses Diagnosis Diarrhea, unspecified type- Primary documented in this encounter Additional Health Concerns Infection Onset Date Last Indicated Resolved Time CDiff-Risk 05/14/2025 05/16/2025 05/16/2025 1:32 PM EDT documented as of this encounter Care Teams Railcar Foreman Relationship Specialty Start Date End Date Pcp, Unknown PCP - General 05/16/25 documented as of this encounter Additional Source Comments The information contained in this document represents components of the legal health record. It is not the complete legal health record.[facility]
--- OUTSIDE RECORDS SUMMARY | 2025-05-17 10:17 | XMS_ITS | Encounter Summary ---
Author Organization [facility] Address [address] [place] [address] Phone Care Team Providers Care Ordering Box Operator Name Role Phone Pcp, Unknown Primary Care Provider Unavailabl e Encounter Details Date Type Department Care Team (Late st Contact Info) Description 05/14/2025 Procedure Pass [facility], Ct Scan - [address] [address] Social History Tobacco Use Types Packs/Day Years [...] 9:56 AM EDT Clay Yost, BLANCO * [place] Suicide Severity Rating Scale (Screener/Recent Self-Report) Question [...] documented as of this encounter Care Teams Ordering Box Operator Relationship Specialty Start Date End Date Pcp, Unknown PCP - General 05/16/25 documented as of this encounter Additional Source Comments The information contained in this document represents components of the legal health record. It is not the complete legal health record.[facility]
--- OUTSIDE RECORDS SUMMARY | 2025-05-17 10:17 | XMS_ITS | Clinical Summary ---
Author Organization [address] [address] Phone Care Team Providers Care Emr Implementation Specialist Name Role Phone Pcp, Does Not Have [...] - 144 mmol/L 04/29/2023 1:19 PM EDT [facility] Potassium 3.9 3.3 - 5.3 mmol/L 04/29/2023 1:19 PM EDT [facility] Chloride 101 98 - 107 mmol/L 04/29/2023 1:19 PM EDT [facility] CO2 24 20 - 30 mmol/L 04/29/2023 1:19 PM [facility] Anion Gap 11 7 - 17 04/29/2023 1:19 PM [facility] Glucose 181(H) 70 - 100 mg/dL 04/29/2023 1:19 PM [facility] BUN 12 6 - 20 mg/dL 04/29/2023 1:19 PM [facility] Creatinine 1.17 0.40 - 1.30 mg/dL 04/29/2023 1:19 PM [facility] Calcium 9.2 8.8 - 10.2 mg/dL 04/29/2023 1:19 PM [facility] BUN/Creatinine Ratio 10.3 8.0 - 23.0 04/29/2023 1:19 PM [facility] Total Protein 8.7 6.6 - 8.7 g/dL 023 1:19 PM [facility] Albumin 4.5 3.6 - 4.9 g/dL 04/29/2023 1:19 PM [facility] Total Bilirubin 0.5 <=1.2 mg/dL 04/29/20 1:19 PM [facility] Alkaline Phosphatase 155(H) 9 - 122 U/L 04/29/2023 1:19 PM [facility] Alanine Aminotransferase (ALT) 45 9 - 59 U/L 04/29/2023 1:19 PM [facility] Comment:Calcium dobesilate c an cause artificially low ALT results at therapeutic concentrations Aspartate Aminotransferase (AST) 51(H) 10 - 35 U/L 04/29/2023 1:19 PM [facility] Globulin 4.2(H) 2.3 - 3.5 g/dL 04/29/2023 1:19 PM [facility] A/G Ratio 1.1 1.0 - 2.2 04/29/2023 1:19 PM [facility] AST/ALT Ratio 1.1 Reference Range Not Established 04/29/2023 1:19 PM EDT [facility] eGFR (Creatinine) >60 >=60 mL/min/1.73m2 04/29/2023 1:19 PM EDT [facility] Comment: Values < 60 mL/min/1.73 m2 may indicate CKD if present for more than three months AND creatinine is at steady state. The eGFR provides a rough estimate of kidney function. On 04/11/22 all [facility] Clinical Labs and Epic began using a inj-trnr-lywvr formula for estimating GFR called CKD-EPI Creatinine 2020. This equation reports eGFR based on creatinine, patient age, clinical sex, and is standardized to a body surface area of 1.73 m2. For the same creatinine, this new race-free eGFR will be lower than prior reported Black eGFR results and higher than prior Non-Black eGFR results. For further guidance, please refer to the CKD: Adult Make Up Artist Signature pathway. Blood Venipuncture / Unknown 04/29/2023 12:45 PM EDT 04/29/2023 12:52 PM EDT us Kurt Akins MD LAB BLOOD ORDERABLES Final Resu lt [facility] [address] [place] [address], [facility] [phone] from Last 3 Months or Most Recently Relevant to Health Maintenance Insurance MEDICARE [id number] MEDICAID MEDICARE [id number] MEDICAID MEDICARE [id number] MEDICAID Care Teams Emr Implementation Specialist Relationship Specialty Start Date End Date Pcp, Does Not Have A PCP - General 04/29/23
--- OUTSIDE RECORDS SUMMARY | 2025-05-17 10:17 | XMS_ITS | Clinical Summary ---
Author Organization [facility] Address [address] [place] [address] Phone Care Team Providers Care Horse Shoer Name Role Phone Pcp, Unknown Primary Care Provider Unavailabl e Allergies Active Allergy Reactions Criticality Noted Date Comments Flu Vaccine [id number](6mos Up) 05/14 Lamotrigine 05/14/2025 Shellfish Containing Products 2024 Oxycodone-Acetaminophen 05/14/2025 Carbamazepine 05/14/2025 Tramadol 05/14/2025 Medications No known medications Encounters Date Type Department Care Team Description 05/16/2025 9:30 AM EDT - 05/16/2025 11:59 PM EDT Hospital Encounter [facility] Laboratory [address] [place] [address] Denise Weiner PA-C Discharge Disposition: Home or Self Care 05/16/2025 Transcribe Orders [facility] Laboratory [address] [place] [address] Denise Weiner PA-C Diarrhea, unspecified type (Primary Dx) 05/16/2025 Transcribe Orders [facility] Laboratory [address] [place] [address] Denise Weiner PA-C Diarrhea, unspecified type (Primary Dx) 05/14/2025 9:56 AM EDT - 05/14/2025 6:00 PM EDT Emergency [facility] [address] [place] [address] Garcia, MD Sreekanth Martinez Benjamin G, MD Discharge Disposition: Home or Self Care 05/14/2025 Procedure Pass [facility], Ct Scan - [facility] [address] [place] [address] 05/14/2025 Procedure Pass [facility], Ct Scan - [facility] [address] [place] [address] from Last 3 Months Social History Tobacco Use Types Packs/Day Years [...] or Chaidez 05/14/2025 10 :28 AM EDT Last Filed Vital Signs Vital Sign [...] Mass Index 25.99 05/14/2025 9:54 AM EDT Plan of Treatment Health Maintenance Due Date Last Done Comments DEPRESSION SCREENING 1985 SMOKING Hx and SMOKELESS TOBACCO SCREENING 1986 HIV ONE-TIME SCREENING (18-65 YEARS) 1991 COLOGUARD 2018 COLONOSCOPY 2018 COLORECTAL CANCER SCREENING 2018 FIT TEST 2018 FOBT 2018 SIGMOIDOSCOPY 2018 VIRTUAL COLONOSCOPY 2018 PNEUMOCOCCAL VACCINES (50+ years) (1 of 1 - PCV) 2023 ZOSTER VACCINES (1 of 2) 2023 INFLUENZA VACCINE (#1) 2025 COVID-19 VACCINE (1 - 2023- season) 2025 SCREENING FOR DIABETES 12/10/2027 12/09/2024, 2024 LIPID PANEL 12/09/2029 12/09/2024, 11/25, 08/30/2023, Additional history exists Adult Td,Tdap Booster 01/24/2034 01/25/2024, 014 HEPATITIS C SCREENING Completed 12/09/2024 , 01/25/2024, 01/29/2023, Additional history exists HEPATITIS A VACCINES Aged Out No long er eligible based on patient's age to complete this topic HIB VACCINES Aged Out No longer eligi ble based on patient's age to complete this topic MENINGOCOCCAL VACCINES (ACWY) Aged Out No longer eligible based on patient's age to complete this topic MENINGOCOCCAL VACCINES (B) Aged Out N o longer eligible based on patient's age to complete this topic Medical Devices Not on file Procedures Procedure Name Priority Date/Time Associated Diagnosis Comments GIARDIA CRYPTOSPORIDIUM SCREEN Routine 05/16/2025 10:21 AM EDT Diarrhea, unspecified type C. DIFFICILE PCR Routine 05/15/2025 6:00 PM EDT Diarrhea, unspecified type STOOL CULTURE Routine 05/15/2025 6:00 PM EDT TROPONIN STAT 05/14/2025 1:32 PM EDT US LOWER EXTREMITY VEINS DUPLEX COMPLETE (BILATERAL) Routine 05/14/2025 1:20 PM EDT Edema, unspecified type CT ANGIO ABDOMEN/PELVIS WITH AND WITHOUT CONTRAST Routine 05/14/2025 12:[address] ANGIO CHEST WITH AND WITHOUT CONTRAST Routine 05/14/2025 12:42 PM EDT ECG 12-LEAD STAT 05/14/2025 12:00 PM EDT TROPONIN STAT 05/14/2025 11:16 AM EDT PT-INR STAT 05/14/2025 11:16 AM EDT LIPASE STAT 05/14/2025 10:25 AM EDT LFTS (HEPATIC PANEL) STAT 05/14/2025 10:25 AM EDT BASIC METABOLIC PANEL STAT 05/14/2025 10:25 AM EDT CBC AND DIFFERENTIAL STAT 05/14/2025 10:25 AM EDT URINALYSIS W/REFLEX URINE CULTURE STAT 05/14/2025 10:11 AM EDT from Last 3 Months Results * Giardia and cryptosporidium screen (05/16/2025 10:21 AM EDT) GIARDIA AG Negative Negative [facility] Cryptosporidiu m, stool Negative Negative [facility] Stool (Stool) 05/16/2025 10: 21 AM EDT 05/16/2025 1:09 PM EDT Denise Weiner PA-C NON CULTURE MICROBIOLOGY Fi nal Result Performing Organization Address City/[facility]/ZIP Co de Phone Number [address] [address] * C. DIFFICILE PCR (05/15/2025 6:00 PM EDT) Pathologist [facility] C.DIFFICILE PCR Negative Negative [facility] C.DIFFICILE STRAIN PRESUMPTIVE NEGATIVE PRESUMPTIVE NEGATIVE [facility] Comment:Detection of 027/NAP 1/BI strains of C.difficile is presumptive and is solely for epidemiological purposes and is not intended to guide or monitor treatment of infections. Stool (Stool) 05/15/2025 6:0 0 PM EDT 05/16/2025 10:14 AM EDT Denise Weiner PA-C MICROBIOLOGY - GENERAL ORDE RABLES Final Result Performing Organization Address City/[facility]/ZIP Co de Phone Number [address] [address] * Troponin (05/14/2025 1:32 PM EDT) Only the most recent of2 resultswithin the time period is included. Troponin-T, HS Gen5 <6 0 - 14 ng/L [facility] Blood 05/14/2025 1:3 2 PM EDT 05/14/2025 1:48 PM EDT us Mark Garcia MD LAB BLOOD ORDERAB LES Final Result [facility] [address] [place] [address] * US Lower Extremity Veins Duplex Complete (Bilateral) (05/14/2025 1:20 PM EDT) MGB IMG CONTROL DIRECTOR 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 No flow is seen in the proximal right popliteal artery. [facility] Anatomical Region Laterality Modality Ultrasound 05/14/2025 2:12 PM EDT Impressions 05/14/2025 2:22 PM EDT 1. No deep vein thrombosis in the visualized veins of either lower extremity. 2. No flow is seen in the proximal right popliteal artery. A clinically significant result was initiated on 05/14/2025 2:22 PM, Message ID [id number]. Narrative 05/14/2025 2:22 PM EDT US LOWER [...] was initiated on 05/14/2025 2:22 PM,Message ID [id number]. us Denise Weiner PA-C CV US VASCULAR [...] * ECG 12-LEAD (05/14/2025 12:00 PM EDT) Pathologist [facility] Ventricular Rate EKG/MIN 75 BPM [facility] Atrial Rate 75 BPM [facility] MT Interval 156 ms [facility] QRS Duration 88 ms [facility] QT Interval 406 ms [facility] QTC Interval 453 ms [facility] P [place] 40 degrees [facility] R Wave [place] 22 degrees [facility] T Wave [place] 24 degrees [facility] 05/14/2025 12:0 0 PM EDT 05/14/2025 5:00 PM EDT Narrative [facility] - 05/14/2025 5:00 PM EDT Normal sinus rhythm Normal ECG No previous ECGs available Confirmed by Zac Cates ([id number]) on 05/14/2025 5:00:02 PM Denise Weiner PA-C ECG ORDERABLES Final Resul t Performing Organization Address City/[facility] Co de Phone Number [email or web address] * (ABNORMAL) PT-INR (05/14/2025 11:16 AM EDT) [facility] PT 26.7(H) 10.2 - 12.9 sec [facility] INR 2.1(H) 0.9 - 1.1 [facility] Comment:Therapeutic range fo r oral Vitamin K antagonists: 2.0-3.5 Blood 05/14/2025 11:1 6 AM EDT 05/14/2025 12:06 PM EDT Denise Weiner PA-C LAB BLOOD ORDERABLES Final Result Performing Organization Address City/[facility]/ZIP Co de Phone Number [address] [address] * (ABNORMAL) LFTs (hepatic panel) (05/14/2025 10:25 AM EDT) [facility] ALKALINE PHOSPHATASE 116 39 - 117 U/L [facility] TOTAL BILIRUBIN 0.4 0.0 - 1.2 mg/dL [facility] DIRECT BILIRUBIN 0.1 0.0 - 0.2 mg/dL [facility] Bilirubin (Indirect) NOT CALCULATED 0 - 1.5 mg/dL [facility] AST 23 0 - 37 U/L [facility] ALT 22 0 - 40 U/L [facility] TOTAL PROTEIN 8.3(H) 6.5 - 8.0 g/dL [facility] ALBUMIN 4.0 3.9 - 4.8 g/dL [facility] GLOBULIN 4.3 1 - 4.8 g/dL [facility] A/G Ratio 0.93(L) 1.00 - 4.80 RATIO [facility] Blood 05/14/2025 10:2 5 AM EDT 05/14/2025 10:30 AM EDT us Mark Garcia MD LAB BLOOD ORDERAB LES Final Result Performing Organization Address City/State/[facility] Co de Phone Number [facility] [address] [place] [address] * (ABNORMAL) CBC and differential (05/14/2025 10:25 AM EDT) WBC 4.01 4.00 - 11.00 K/uL [facility] RBC 4.43(L) 4.50 - 5.90 M/uL [facility] HGB 12.9(L) 13.5 - 17.5 g/dL [facility] HCT 40.6(L) 41.0 - 53.0 % [facility] PLT 139(L) 150 - 450 K/uL [facility] MCV 91.6 80.0 - 100.0 fL [facility] MCH 29.1 27.0 - 31.0 pg [facility] MCHC 31.8(L) 32.0 - 36.0 g/dL [facility] RDW 14.6(H) 11.5 - 14.5 % [facility] MPV 9.3 8.4 - 12.0 fL [facility] NRBC 0.00 0.00 /100 WBCs [facility] ABSOLUTE NRBC 0.00 0.00 K/uL [facility] DIFF METHOD Auto [facility] NEUTS 47.0(L) 48.0 - 76.0 % [facility] LYMPHS 42.4(H) 18.0 - 41.0 % [facility] MONOS 9.0 4.0 - 11.0 % [facility] EOS 0.7 0.0 - 5.0 % [facility] BASOS 0.7 0.0 - 1.5 % [facility] Granulocytes, immature (%) 0.2 0.0 - 0.9 % [facility] ABSOLUTE NEUTS 1.88(L) 1.92 - 7.60 K/uL [facility] ABSOLUTE LYMPHS 1.70 0.72 - 4.10 K/uL [facility] ABSOLUTE MONOS 0.36 0.16 - 1.10 K/uL [facility] ABSOLUTE EOS 0.03 0.00 - 0.50 K/uL [facility] ABSOLUTE BASOS 0.03 0.00 - 0.15 K/uL [facility] Granulocytes, immature 0.01 0.00 - 0.09 K/uL [facility] Blood 05/14/2025 10:2 5 AM EDT 05/14/2025 10:30 AM EDT us Mark Garcia MD LAB BLOOD ORDERAB LES Final Result [address] [address] * Lipase (05/14/2025 10:25 AM EDT) LIPASE 35 16 - 63 U/L [facility] Blood 05/14/2025 10:2 5 AM EDT 05/14/2025 10:30 AM EDT us Mark Garcia MD LAB BLOOD ORDERAB LES Final Result [address] [address] * (ABNORMAL) Basic metabolic panel (05/14/2025 10:25 AM EDT) SODIUM 138 133 - 146 mmol/L [facility] CHLORIDE 104 96 - 108 mmol/L [facility] POTASSIUM 4.1 3.3 - 5.1 mmol/L [facility] CO2 22 21 - 35 mmol/L [facility] BUN 12 6 - 19 mg/dL [facility] CREATININE 1.10 0.5 - 1.5 mg/dL [facility] GLUCOSE 188(H) 70 - 99 mg/dL [facility] CALCIUM 9.1 8.4 - 10.3 mg/dL [facility] EGFR 81 >59 mL/min/1.7 3m2 [facility] Comment:Estimated glomerular filtration rate calculated using the CKD-EPI refit equation. ANION GAP 16 10 - 20 mmol/L [facility] Blood 05/14/2025 10:2 5 AM EDT 05/14/2025 10:30 AM EDT us Mark Garcia MD LAB BLOOD ORDERAB LES Final Result Performing Organization Address [facility] Co de Phone Number [address] [address] * (ABNORMAL) Urinalysis w/reflex Urine Culture (05/14/2025 10:11 AM EDT) COLOR Yellow Yellow [facility] CLARITY Clear [facility] GLUCOSE 2+(A) Negative [facility] BILI Negative Negative [facility] KETONES Negative Negative [facility] SPECIFIC GRAVITY >1.030 1.005 - 1.030 [facility] BLOOD Negative Negative [facility] PH 5.5 5.0 - 8.0 [facility] Protein-UA Negative Negative [facility] NITRITE Negative Negative [facility] Leukocyte esterase, ur Negative Negative [facility] Urine (Urine) 05/14/2025 10: 11 AM EDT 05/14/2025 3:40 PM EDT Mark Garcia MD URINE ORDERABLES Final Result Performing Organization Address [facility]/ZIP Co de Phone Number [address] [address] from Last 3 Months Insurance MEDICARE PART A & [place]ALTH MEDICARE PART A & B HEALTH MEDICARE PART A & B HEALTH MEDICARE PART A & B Member Subscriber Plan / Payer (Ef fective 2003-) Name:Jerome Smith Member ID:[id number] Relation to Subscriber:Self Name:Jerome Smith Subscriber ID:[id number] Payer ID:[id number] Group ID:Not on file Type:Medicare Address: [employer] [address] [place] [address] [place], [place] [address]HEALTH Care Teams Horse Shoer Relationship Specialty Start Date End Date Pcp, Unknown PCP - General 05/16/25 Additional Source Comments The information contained in this document represents components of the legal health record. It is not the complete legal health record.[facility]
--- OUTSIDE RECORDS SUMMARY | 2025-05-17 10:17 | XMS_ITS | Clinical Summary ---
Author Organization [facility] Address [address] [place] [address] Care Team Providers Care Clinical Application Manager Name Role Phone Thomas Kam Primary Care Provider [phone] Source Comments PLEASE NOTE, if this patient [...] lower extremities,Hist ory of DVT (deep vein thrombosis),FCI (current) use of anticoagulants 1 Strip by miscellaneous route every 7 (seven) days 100 Strip 2 022 Active alcohol swabsIndications :Type 2 diabetes mellitus without complication, without long-term current use of insulin ([facility]) Use to test blood sugar once daily. 100 Each 3 024 Active empagliflozin (JARDIANCE) 25 mg tabIndications:U ncontrolled type 2 diabetes mellitus with hyperglycemia ([facility]),Type 2 diabetes mellitus with hyperglycemia, without long-term current use of insulin ([facility]) Take 1 Tablet by mouth daily. 90 Tablet 3 024 Active lancetsIndicatio ns:Type 2 diabetes mellitus with hyperglycemia, without long-term current use of insulin ([facility]) Use to test blood sugar once daily. [...] [place] 180 Tablet 2 025 Active warfarin (COUMADIN) 5 mg tabletIndication s:Venous insufficiency of both lower extremities,Hist ory of DVT (deep vein thrombosis),Acut e deep vein thrombosis (DVT) of right lower extremity, unspecified vein ([facility]) TAKE 1 TABLET DAILY DIRECTED BY THE [facility] 025 Active pantoprazole (PROTONIX) 40 mg EC tablet TOME 1 TABLETA POR VIA ORAL TODOS [place] 90 Tablet 1 025 Active blood sugar diagnostic stripsIndication s:Type 2 diabetes mellitus with hyperglycemia, without long-term current use of insulin ([facility]) Use to test blood sugar once daily (OneTouch Verio or Ultra 2, whichever is approved) E11.9. 100 Each 3 05/19/2 025 Active blood-glucose meter monitoring kitIndications:T ype 2 diabetes mellitus without complication, without long-term current use of insulin ([facility]) Use to test blood sugar once daily. (OneTouch Verio or Ultra 2, whichever is approved) E11.9. 1 Each 025 Active morphine (MSIR) 15 mg tabletIndication s:Venous insufficiency of both lower extremities,Abdo arminda aortic aneurysm (AAA) without rupture, unspecified part ([facility]),Acute deep vein thrombosis (DVT) of right lower extremity, unspecified vein ([facility]),PAD (peripheral artery disease) ([facility]),Chronic low back pain, unspecified back pain [...] complication, without long-term current use of insulin ([facility]),Class 1 obesity without serious comorbidity in adult, unspecified BMI, unspecified obesity type TOME 1 CAPSULA POR VIA ORAL TODOS [place] 90 Capsule 1 025 Active tenofovir disoproxil fumarate (VIREAD) 300 mg tabletIndication s:HIV disease ([facility]) TOME 1 TABLETA POR VIA ORAL TODOS [place]. 90 Tablet 3 025 Active darunavir-cobici stat (PREZCOBIX) 800-150 mg-mg tabIndications:H IV disease ([facility]) Take 1 Tablet by mouth once daily. 90 Tablet 3 025 Active raltegravir (ISENTRESS HD) 600 mg tabIndications:H IV disease ([facility]) Take 1 Tablet by mouth 2 (two) times Daily. 180 Tablet 3 025 Active levothyroxine 25 mcg tabletIndication s:Hypothyroidism , unspecified type TOME 1 TABLETA POR VIA ORAL TODOS [place] 90 Tablet 1 025 Active semaglutide (OZEMPIC) 1 mg/dose (4 mg/3 mL) pen injectorIndicati ons:Type 2 diabetes mellitus with hyperglycemia, without long-term current use of insulin ([facility]) Inject 1 mg into the skin once a week Every Sunday. 3 mL 11 025 Active lacosamide (VIMPAT) 100 mg tabletIndication s:Seizure ([facility]) TOME 1 TABLETA POR VIA ORAL DOS VECES AL CARLO 90 Tablet 2 025 Active azelastine (OPTIVAR) 0.05 % ophthalmic solutionIndicati ons:Allergic conjunctivitis of left eye PONGA EMILY GOTA EN EFRAIN AUGUSTUS DOS VECES AL CARLO 6 mL 1 025 Active simethicone (MYLICON) 125 mg chewable tabletIndication s:Abdominal bloating Place 1 Tablet into mouth, chew and swallow every 6 (six) hours as needed for flatulence. 30 Tablet 1 025 Active morphine (MSIR) 15 mg tabletIndication s:Venous insufficiency of both lower extremities,Abdo arminda aortic aneurysm (AAA) without rupture, unspecified part ([facility] V24),Acute deep vein thrombosis (DVT) of right lower extremity, unspecified vein ([facility]),PAD (peripheral artery disease) ([facility] V24),Chronic low back pain, unspecified back pain laterality, unspecified whether sciatica present Take 1 Tablet by mouth every 6 (six) hours as needed for pain. 45 Tablet 025 Active albuterol HFA 90 mcg/actuation inhalerIndicatio ns:Mild intermittent asthma without complication ([facility]) INHALE DANDO 2 SOPLIDOS CADA 4 HORAS CUANDO SEA NECESARIO PARA LA SIBILANCIA OR PARA LA FALTA 18 Each 3 025 Active VIMPAT 100 mg tabletIndication s:Seizure ([facility]) TAKE 1 TABLET BY MOUTH 2 TIMES DAILY FOR A TYPE OF SEIZURE CALLED A FOCAL SEIZURE. 180 Tablet 3 025 Active dicyclomine (BENTYL) 20 mg tabletIndication s:Chronic RLQ pain TOME EMILY TABLETA CUATRO VECES AL CARLO CUANDO SEA NECESARIO FOR ABDOMINAL PAIN 360 Tablet 1 023 2024 Discontinued( Cancelled) VIMPAT 100 mg tabletIndication s:Seizure ([facility]) TAKE 1 TABLET BY MOUTH 2 TIMES DAILY FOR A TYPE OF SEIZURE CALLED A FOCAL SEIZURE 60 Tablet 3 025 2024 Discontinued( Reorder (E-Cancel Not Sent)) albuterol HFA 90 mcg/actuation inhalerIndicatio ns:Mild intermittent asthma without complication ([facility]) INHALE DANDO 2 SOPLIDOS CADA 4 HORAS CUANDO SEA NECESARIO PARA LA SIBILANCIA OR PARA LA FALTA 18 g 3 025 2024 Discontinued VIMPAT 100 mg tabletIndication s:Seizure ([facility]) TAKE 1 TABLET BY MOUTH 2 TIMES DAILY FOR A TYPE OF SEIZURE CALLED A FOCAL SEIZURE. 60 Tablet 3 025 2024 Discontinued( Reorder (E-Cancel Not Sent)) VIMPAT 100 mg tabletIndication s:Seizure ([facility]) TAKE 1 TABLET BY MOUTH 2 TIMES DAILY FOR A TYPE OF SEIZURE CALLED A FOCAL SEIZURE. 60 Tablet 3 025 2024 Discontinued( Duplicate (E-Cancel Not Sent)) Active Problems Problem Noted Date Diagnosed Date Type 2 diabetes mellitus wit h hyperglycemia, without long-term current use of insulin ([facility]) 04/09/2024 Overview (02/19/2025): DM dx: unclear Glucometer: [...] 05/14/24 per Diabetes retinal exam: 08/13/25 at [facility] No evidence of diabetic retinopathy - the condition is stable but potentially progressive HIV disease - no ocular manifestations Nuclear sclerosis OU - blurred vision +2.00 readers recommended, but pt refused Epiretinal membrane OU - mild ERM, not clinically significant Presbyopia OU - good correction with reading glasses Patient reports [facility] will not see him due to multiple no-shows 05/24/23 at [facility] No evidence of diabetic retinopathy - the condition is stable but potentially progressive Nuclear sclerosis OU - the patient has been diagnosed with cataract, but vision remains relatively good at this time... no treatment is currently recommended. Epiretinal membrane OU. Mild ERM. Monitor. Presbyopia OU. Good correction with reading glasses. 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 That was [...] with his PCP. - 05/2023: [facility]G at [place] showed chronic DVT. Recommended lifelong anticoagulation but he deferred - 07/2023: Anticoagulation was resumed as there was a concern of ?PE. But review of CT chest during this hospital admission at [facility] showed no concern for PE. Only noted [...] anticoagulation was recommended -June 2024: Admitted to [facility] with lower extremity weakness and decreased sensation, [...] results please recheck the images section) Per [facility] notes from 09/20/22 - first developed a left lower extremity DVT diagnosed at [facility] back in 2016. That was [...] and I agree with this report. WSN: [id number] Ordering Physician: Jordy Clark Lung nodule < 6cm on CT 01/01/2020 Overview (01/01/2020): Date of Exam : 11/03/2019 Referring Physician : CONNOR LARA [facility] [address] [place] [address] Exam : PT - *SKULL BASE TO MID THIGH CPT 23759 - Room Description : *[facility] Pt4 Technique : See technique below [...] Psychogenic nonepileptic seizure 07/14/2019 Overview (07/14/2019): 04/08/19, [facility] Neurology Follow up note, Robert Pate MD: Pt has documented PNES, has not yet started psychotherapy, says he's in process. Impression and Plan: Stop Vimpat. Encouraged pt to make behavioral health appt. Abnormal CXR 05/07/2019 Overview (05/07/2019): 05/07/19 - CXR Chest Routine 2 Views, [facility], 12/26/18: Findings: The cardiomediastinal [...] vertebral body. No retropulsion. - CXR, [facility], 03/05/19, IMPRESSION: 1. No acute cardiopulmonary abnormality. Increased density overlying the anterior left sixth rib likely represents a healing sixth rib fracture, as document in patient's EMR . Closed fracture of multiple ribs of left side with routine healing 05/07/2019 Overview (05/07/2019): 05/07/19 - - CT Chest Angiography, [facility], 03/27/19: Findings: [#5.] Bony structures demonstrate left lateral 5th through 8th rib fractures, partially healed and new from October 14, 2018. Mild adjacent pleural thickening. Scarring along the 8th rib. Mild wedge deformity of the T6 vertebral body. - CXR, [facility], 03/05/19, IMPRESSION: 1. No acute cardiopulmonary abnormality. [...] Rectal pain 10/29/2018 Overview (10/29/2018): Admitted to [facility], 10/25/18 - Post surgical rectal pain Varicocele 10/22/2018 Overview (10/22/2018): US 10/22/18 - varicocele right Lesion of perianal area 10/22/2018 Overview (10/24/2018): Seen at [facility] Dr. Tineo for perianal lesions, w/ chronic diarrhea, verrusous in nature, underwent examination under anesthesia, complete colonoscopy with rectal biopsies, excision of multiple perianal lesions with concomitant hemorrhoidectomy x 2 Rafa Tineo MD 10/22/18 History of DVT (deep vein thrombosis) 10/04/2018 Overview (08/05/2024): Per [facility] notes from 09/20/22 - first developed a left lower extremity DVT diagnosed at [facility] back in 2016. That was [...] and I agree with this report. WSN: [id number] Ordering Physician: Jordy Clark Hospitalized 03/29/18 - [...] soft tissue thickening. Fatty infiltration of liver. [facility] ED 10/11/16 for abdominal pain. Pt stated had EVAR in July in [place], which is odd because normal-caliber aorta with no visible stent seen on CT. According to note pt with odd affect. Labs unremarkable. Appears under influence of something. Prediabetes 09/13/2017 Immobility 04/19/2017 Overview (04/19/2017): Requiring raised toilet seat and bath bench DVT (deep venous thrombosis) ([facility]) 06/2017 Overview (08/05/2024): Per [facility] notes from 09/20/22 - first developed a left lower extremity DVT diagnosed at [facility] back in 2016. That was [...] and I agree with this report. WSN: [id number] Ordering Physician: Jordy Clark Hospitalized 03/29/18 - 03/1018 - Proximal popliteal artery left lower extremity - INR subtherapuetic at home. Dilaudid for pain, Bypass/ anuersym repain by Dr. Mendieta. Lovenox and Coumadin 6 md daily. INR 2, then stop lovenox. Per [facility] note, has Coumadin clinic. Should follow with Dr. Mendieta for repair. Hepatitis B core antibody positive 11/28/2016 GERD (gastroesophageal reflux disease) 3 Hyperlipidemia LDL goal <70 07/29/2013 HIV disease ([facility]) 07/22/2013 Overview (01/23/2024): Presently on raltegravir HD, [...] 07/14/19 - compliant with HAART. Per 06/22/19 [facility] ED report last labs were in December with CD4 count of 568 and viral load undetectable. -06/10/13: [place] CD4 count: 432 CD8: 1111 CD4/CD8 ratio: 0.39 Viral Load: <75 Seizure ([facility]) 07/22/2013 Enlarged prostate 07/22/2013 COPD (chronic obstructive pu lmonary disease) ([facility]) 07/22/2013 History of appendectomy Overview (07/29/2013): 2003 Undiagnosed cardiac murmurs PAD (peripheral artery disease) ([facility]) Epilepsy, abdominal ([facility]) Hypothyroid Chronic obstructive asthma w ith status asthmaticus ([facility]) Anemia, unspecified Allergic state Resolved Problems Problem Noted Date Diagnosed Date Resolved Date Uncontrolled type 2 diabetes mellitus with hyperglycemia ([facility]) 05/15/2024 07/02/2024 Class 1 obesity without seri ous comorbidity in adult 04/09/2024 04/09/2024 Diabetes mellitus due to und erlying condition with chronic kidney disease, without long-term current use of insulin ([facility]) 02/20/2019 04/09/2024 H/O CT scan of abdomen 12/09/201811/10 Overview (11/10/2020): 12/08/18 - chronic distal rectal soft tissue thickening. Fatty infiltration of liver. [facility] ED 10/11/16 for abdominal pain. Pt stated had EVAR in July in [place], which is odd because normal-caliber aorta with no visible stent seen on CT. According to note pt with odd affect. Labs unremarkable. Appears under influence of something. Abdominal pain 11/03/2016 11/10/2020 Overview (11/03/2016): [facility] ED 10/11/16 for abdominal pain. Pt stated had EVAR in July in [place], which is odd because normal-caliber aorta with no visible stent seen on CT. According to note pt with odd affect. Labs unremarkable. Appears under influence of something. Asthma 07/22/2013 08/19/2018 Asymptomatic human immunodef iciency virus (HIV) infection status ([facility]) 021 Encounters Date Type Department Care Team Description 04/29/2025 Results Follow-Up [address] [phone] Dede Christensen NP 04/28/2025 10:20 AM EDT Office Visit [address] [phone] Dede Christensen NP Hernandez, Maria C 02/19/2025 1:00 PM EDT Office Visit [address] [phone] Arnaldo Osman, PharmD from Last 3 Months Immunizations Immunization Administration Dates Next Due HEP B,ADULT 01/06/2004,06/05/2003,03/27/2003 Hep A, adult 11/16/2003,03/27/2003 Hep B, Adult/Adol (JUWNBCG-B-WLYFA/RECOMBIVAX-ADULT) 10/28/2013,09/30/2013 03/30/2014 Hep B,adult,adjuvanted (HEPLISAV) 10/06/2022,03/2022 INFLUENZA, [...] Care Team (Late st Contact Info) Description 06/04/2025 3:00 PM EDT Office Visit [facility] [address] [place] [phone] Arnaldo Osman, PharmD [address] [place] [address] 07/14/2025 2:00 PM EST Office Visit [facility] [address] [place] [phone] Thomas Kam PA [address] [place] [address] Quynh Verdin [address] [place] [phone] 08/31/2025 9:00 AM EST Office Visit [facility] [address] [place] [phone] Nicolette Conley [address] [place] [phone] Health Maintenance Due Date Last Done Comments Dental Prophy 1973 CT Colonography 2018 FIT/gFOBT 2018 Fecal DNA 2018 Flexible Sigmoidoscopy 2018 Dental BW 03/19/2023 03/17/2022 Dental Examination 03/19/2023 03/17/2022 Medicare Annual Wellness Visit 11/24/2023 11/23/2022 Depression Monitoring 02/20/2025 11/20/2024 , 10/23/2023, 11/23/2022, Additional history exists [id number] ( season) 2025 04/03/2022, 09/02/2021, 08/08/2021 Imm-Influenza [...] 12/09/2024, 01/0 11/2023, 06/15/2022, Additional history exists Syphilis Screening 12/09/2025 12/09/2024, 0 01/25/2024, 01/29/2023, Additional history exists TSH Monitoring 12/09/2025 12/09/2024, 01/0 11/2023, 06/15/2022, Additional history exists Urine Albumin Creatinine Ratio Screening 12/09/2025 12/09/2024, 11/05/2021 Hypertension Screening (#1) 04/28/2026 Serum Creatinine 05/06/2026 05/06/2025, , 10/29/2024, Additional history exists Dental FMX/Pano 03/19/2027 03/17/2022 Imm-Meningococcal (4 - Risk 2-dose series) 01/24/2029 01/25/2024, 11/18/2018, 06/19/2017 Colonoscopy 09/20/2031 09/20/2021 Colorectal Cancer Screening 09/20/2031 Imm-DTaP/Tdap/Td (3 - Td or Tdap) 01/24/2034 01/25/2024, 09/30/2013, 06/05/2003 Imm-Hepatitis A Completed 11/16/2003, 03/27/2003 Imm-Zoster, Recombinant Completed 06/29/2021, 05/18 Imm-MMR Discontinued 05/04/2022, 04/03/2022 Imm-Hepatitis B Completed 10/06/2022, 03/2022, 10/28/2013, Additional history exists Imm-Pneumococcal 50+ Completed 08/08/2024, 04/11/2019, 02/03/2017, Additional history exists Alcohol and Drug Screen Completed 11/21/19, 10/23/2023, 11/23/2022, Additional history exists Hepatitis C Screening Completed 12/09/2024 , 01/25/2024, 01/29/2023, Additional history exists Imm-HIB Aged Out No longer eligi ble based on patient's age to complete this topic Procedures Procedure Name Priority Date/Time Associated Diagnosis Comments BLOOD COUNT COMPLETE AUTOMATED Routine 05/06/2025 12:00 PM EDT Venous insufficiency of both lower extremities Abdominal aortic aneurysm (AAA) without rupture, unspecified part ([facility] V24) Acute deep vein thrombosis (DVT) of right lower extremity, unspecified vein ([facility]) PAD (peripheral artery disease) ([facility] V24) Chronic low back pain, unspecified back pain laterality, unspecified whether sciatica present COMPREHENSIVE METABOLIC PANEL Routine 05/06/2025 12:00 PM EDT Venous insufficiency of both lower extremities Abdominal aortic aneurysm (AAA) without rupture, unspecified part ([facility] V24) Acute deep vein thrombosis (DVT) of right lower extremity, unspecified vein ([facility]) PAD (peripheral artery disease) ([facility] V24) Chronic low back pain, unspecified back pain laterality, unspecified whether sciatica present HIV 1/2 AG & AB W/RFLX (4TH GEN) Routine 05/06/2025 12:00 PM EDT Venous insufficiency of both lower extremities Abdominal aortic aneurysm (AAA) without rupture, unspecified part ([facility] V24) Acute deep vein thrombosis (DVT) of right lower extremity, unspecified vein ([facility]) PAD (peripheral artery disease) ([facility] V24) Chronic low back pain, unspecified back pain laterality, unspecified whether sciatica present H PYLORI UREA BREATH TEST Routine 04/28/2025 11:18 AM EDT Abdominal pain, unspecified abdominal location Abdominal bloating IMAGING SCANNED DOCUMENT 04/28/2025 3:00 AM EDT IMAGING SCANNED DOCUMENT 04/14/2025 3:00 AM EDT IMAGING SCANNED DOCUMENT 04/14/2025 3:00 AM EDT IMAGING SCANNED DOCUMENT 04/14/2025 3:00 AM EDT IMAGING SCANNED DOCUMENT 04/14/2025 3:00 AM EDT REFERRAL SCANNED DOCUMENT 02/20/2025 3:00 AM EDT GLUCOSE, BLOOD BY GLUCOSE MONITORING DEVICE (CLIA WAIVED)POCT Routine 02/19/2025 1:13 PM EDT Type 2 diabetes mellitus with hyperglycemia, without long-term current use of insulin ([facility]) HEMOGLOBIN GLYCOSYLATED A1C Routine 12/09/2024 11:01 AM EDT Type 2 diabetes mellitus with hyperglycemia, without long-term current use of insulin ([facility]) SYPHILIS ANTIBODY CASCADING REFLEX Routine 12/09/2024 10:53 AM EDT HIV disease ([facility]) HEPATITIS C AB W/RFLX HCV RNA, QT, RT PCR Routine 12/09/2024 10:53 AM EDT HIV disease ([facility]) Other problems related to lifestyle TSH W/RFLX FREE T4 Routine 12/09/2024 10 :50 AM EDT Routine adult health maintenance LIPID PANEL Routine 12/09/2024 10:50 AM EDT Type 2 diabetes mellitus with hyperglycemia, without long-term current use of insulin ([facility]) MICROALBUMIN/CREATINI NE RATIO, URINE, RANDOM Routine 12/09/2024 10:50 AM EDT Type 2 diabetes mellitus with hyperglycemia, without long-term current use of insulin ([facility]) EYE EXAM 08/13/2024 3:00 AM EST DRUG [...] for malignant neoplasm of colon HIV disease (HCC-CMS) from Last 3 Months or Most Recently Relevant to Health Maintenance Results * (ABNORMAL) HIV 1/2 AG & AB W/RFLX (4TH GEN) Routine (05/06/2025 12:00 PM EDT) Pathologist [facility] HIV Screen Final HIV-1 POSITIVE(A) 05/07/2025 6:13 PM EDT [facility] HIV AG/AB, 4TH GEN REACTIVE NON-REACTIV E 05/07/2025 6:13 PM EDT [facility] HIV 1 ANTIBODY POSITIVE(A) NEGATIVE 05/07/2025 6:13 PM EDT [facility] [facility] HIV 2 ANTIBODY NEGATIVE NEGATIVE 05/07/2025 6:13 PM EDT [facility] Blood Blood / Unknown 05/06/2025 1 2:00 PM EDT 05/07/2025 3:56 AM EDT Narrative [facility] - 05/07/2025 6:14 PM EDT Positive for HIV-1 antibodies. Laboratory evidence of HIV-1 infection is present. Thomas PEREZ LAB - BLOOD DRAW Final Result [facility] [address] [address], [facility] [address] [address] * BLOOD COUNT COMPLETE AUTOMATED Routine (05/06/2025 12:00 PM EDT) Pathologist [facility] WHITE BLOOD CELL COUNT 4.4 3.8 - 10.8 Thousand/u L 05/07/2025 4:04 AM EDT [facility] RED BLOOD CELL COUNT 4.87 4.20 - 5.80 Million/uL 05/07/2025 4:04 AM EDT [facility] HEMOGLOBIN 14.8 13.2 - 17.1 g/dL 05/07/2025 4:04 AM EDT [facility] HEMATOCRIT 44.7 38.5 - 50.0 % 05/07/2025 4:04 AM EDT [facility] MCV 91.8 80.0 - 100.0 fL 05/07/2025 4:04 AM EDT [facility] MCH 30.4 27.0 - 33.0 pg 05/07/2025 4:04 AM EDT [facility] MCHC 33.1 32.0 - 36.0 g/dL 05/07/2025 4:04 AM EDT [facility] RDW 14.7 11.0 - 15.0 % 05/07/2025 4:04 AM EDT [facility] PLATELET COUNT 193 140 - 400 Thousand/u L 05/07/2025 4:04 AM EDT [facility] MPV 10.4 7.5 - 12.5 fL 05/07/2025 4:04 AM EDT [facility] Blood Blood / Unknown 05/06/2025 1 2:00 PM EDT 05/07/2025 3:05 AM EDT Narrative [facility] - 05/07/2025 4:36 AM EDT For adults, a slight decrease in the calculated MCHC value (in the range of 30 to 32 g/dL) is most likely not clinically significant; however, it should be interpreted with caution in correlation with other red cell parameters and the patient's clinical condition. Thomas PEREZ LAB - BLOOD DRAW Final Result [facility] [address] [address], [facility] [address] [address] * (ABNORMAL) COMPREHENSIVE METABOLIC PANEL Routine (05/06/2025 12:00 PM EDT) [facility] Signature GLUCOSE 177(H) 65 - 99 mg/dL 05/07/2025 7:59 AM EDT Hyperp[facility] UREA NITROGEN (BUN) 9 7 - 25 mg/dL 05/07/2025 7:59 AM [employer] [facility] CREATININE (blood) 1.15 0.70 - 1.30 mg/dL 05/07/2025 7:59 AM [employer] [facility] EGFR 77 > OR = 60 mL/min/1. 73m2 05/07/2025 7:59 AM [employer] [facility] BUN/CREATININE RATIO SEE NOTE: 6 - 22 (calc) 05/07/2025 7:59 AM [employer] [facility] SODIUM 134(L) 135 - 146 mmol/L 05/07/2025 7:59 AM [employer] [facility] POTASSIUM 5.0 3.5 - 5.3 mmol/L 05/07/2025 7:59 AM [employer] [facility] CHLORIDE 103 98 - 110 mmol/L 05/07/2025 7:59 AM [employer] [facility] CARBON DIOXIDE 24 20 - 32 mmol/L 05/07/2025 7:59 AM [employer] [facility] CALCIUM 9.3 8.6 - 10.3 mg/dL 05/07/2025 7:59 AM [employer] [facility] PROTEIN, TOTAL 9.2(H) 6.1 - 8.1 g/dL 05/07/2025 7:59 AM [employer] [facility] ALBUMIN 4.3 3.6 - 5.1 g/dL 05/07/2025 7:59 AM [employer] [facility] GLOBULIN 4.9(H) 1.9 - 3.7 g/dL (calc) 05/07/2025 7:59 AM [employer] [facility] ALBUMIN/GLOBULI N RATIO 0.9(L) 1.0 - 2.5 (calc) 05/07/2025 7:59 AM [employer] [facility] BILIRUBIN, TOTAL 0.5 0.2 - 1.2 mg/dL 05/07/2025 7:59 AM [employer] [facility] ALKALINE PHOSPHATASE 98 35 - 144 U/L 05/07/2025 7:59 AM [employer] [facility] AST 26 10 - 35 U/L 05/07/2025 7:59 AM [employer] [facility] ALT 21 9 - 46 U/L 05/07/2025 7:59 AM [employer] [facility] Blood Blood / Unknown 05/06/2025 1 2:00 PM EDT 05/07/2025 4:19 AM EDT Narrative [facility] - 05/07/2025 8:03 AM EDT . Fasting reference interval . For someone without known diabetes, a glucose value >125 mg/dL indicates that they may have diabetes and this should be confirmed with a follow-up test. . Not Reported: BUN and Creatinine are within reference range. . Thomas PEREZ LAB - BLOOD DRAW Final Result Performing Organization Address [facility] de Phone Number [facility] [address] [address], [facility] [address] [address] * H PYLORI UREA BREATH TEST Breath BREATH Routine (04/28/2025 11:18 AM EDT) Pathologist [facility] RESULT NOT DETECTED NOT DETECTED 04/29/2025 1:05 PM EDT [facility] BREATH (Breath) 04/28/2025 1 1:18 AM EDT 04/29/2025 1:00 PM EDT Narrative [facility] - 04/29/2025 1:07 PM EDT . Antimicrobials, proton pump inhibitors, and bismuth preparations are known to suppress H. pylori, and ingestion of these prior to H. pylori diagnostic testing may lead to false negative results. If clinically indicated, the test may be repeated on a new specimen obtained two weeks after discontinuing treatment. However, a positive result is still clinically valid. us Dede Christensen NP LAB - MICROBIOLOGY AMBULATORY F inal Result Performing Organization Address [facility] de Phone Number [facility] [address] [address], [facility] [address] [address] * IMAGING SCANNED DOCUMENT (04/28/2025 3:00 AM EDT) Only the most recent of5 resultswithin the time period is included. 04/28/2025 3:00 AM EDT Thomas Kam PA SCAN IMAGING Final Result * REFERRAL SCANNED DOCUMENT (02/20/2025 3:00 AM EDT) 02/20/2025 3:00 AM EDT Thomas Eddy PA SCAN REFERRAL Final Result * (ABNORMAL) GLUCOSE, BLOOD BY GLUCOSE MONITORING DEVICE (CLIA WAIVED)POCT Routine (02/19/2025 1:13 PM EDT) GLUCOSE 133(A) 70 - 100 mg/dL [facility] BACK OFFICE POCT Capillary Blood Blood / Unknown 1:13 PM EDT [employer] LAB - BLOOD DRAW Final Re sult Performing Organization Address [facility] Co de Phone Number [facility] OFFICE POCT * (ABNORMAL) HEMOGLOBIN GLYCOSYLATED A1C (12/09/2024 11:01 AM EDT) HEMOGLOBIN A1C 6.4(H) <5.7 % [facility] Comment: For someone without known diabetes, a [...] 1:01 AM EDT 12/09/2024 11:01 AM EDT [employer] LAB - BLOOD DRAW Final Re sult Performing Organization Address [facility]/ZIP Co de Phone Number [facility] [address] [address], [facility] [address] [address] * HEPATITIS C AB W/RFLX HCV RNA, QT, RT PCR (12/09/2024 10:53 AM EDT) HEPATITIS C ANTIBODY NON-REACT ABDON NON-REACT ABDON [facility] Comment: HCV antibody was non-reactive. There is no laboratory evidence of HCV infection. In most cases, no further action is required. However, if recent HCV exposure is suspected, a test for HCV RNA (test code 76626) is suggested. For additional information please refer to http://education.[employer]/faq/VMG53u2 (This link is being provided for informational/ educational purposes only.) Blood Blood / Unknown 12/09/2024 1 0:53 AM EDT 12/09/2024 10:54 AM EDT Narrative [facility] - 12/20/2024 1:33 AM EDT DIFFICULT DRAW. PATIENT ADVISED TO RETURN FOR COLLECTION. us Suzy Pearce PA-C LAB - BLOOD DRAW Edited Resu lt - Final [facility] [address] [address], [facility] [address] [place] [address] * SYPHILIS ANTIBODY CASCADING REFLEX (12/09/2024 10:53 AM EDT) Pathologist [facility] T. PALLIDUM AB, EIA NEGATIVE NEGATIVE [facility] Comment: No antibodies to T. pallidum (the agent causing syphilis) were detected in the specimen. This result, however, does not exclude very recent T. pallidum infection; testing of a second specimen, collected 2-4 weeks after this specimen, is recommended if the index of suspicion for recent infection is high. Blood Blood / Unknown 12/09/2024 1 0:53 AM EDT 12/09/2024 10:54 AM EDT Narrative [facility] - 12/20/2024 1:33 AM EDT DIFFICULT DRAW. PATIENT ADVISED TO RETURN FOR COLLECTION. us Suzy Pearce PA-C LAB - BLOOD DRAW Edited Resu lt - Final Performing Organization Address [facility]/ZIP Co de Phone Number [facility] [address] [address], [facility] [address] [address] * TSH W/RFLX FREE T4 (12/09/2024 10:50 AM EDT) TSH W/REFLEX TO FT4 1.84 0.40 - 4.50 mIU/L [facility] Blood Blood / Unknown 12/09/2024 1 0:50 AM EDT 12/09/2024 10:52 AM EDT us Dede Christensen NP LAB - BLOOD DRAW Edited Result - Final Performing Organization Address [facility] de Phone Number [facility] [address] [address], [facility] [address] [address] * MICROALBUMIN/CREATININE RATIO, URINE, RANDOM (12/09/2024 10:50 AM EDT) CREATININE, RANDOM URINE 189 20 - 320 mg/dL [facility] MICROALBUMIN 0.9 mg/dL [employer] [facility] Comment: Reference Range Not established MICROALBUMIN/CREA TININE RATIO, RANDOM URINE 5 <30 mg/g creat [facility] Comment: The ADA defines abnormalities in albumin [...] 10:50 AM EDT 12/09/2024 10:52 AM EDT us Dede Christensen STAVE CUTTING SUPERVISOR LAB URINE AMBULATORY Final Resu lt Performing Organization Address [facility]/ZIP Co de Phone Number [facility] [address] [address], [place] [facility] [address] [address] * (ABNORMAL) LIPID PANEL (12/09/2024 10:50 AM EDT) CHOLESTEROL, TOTAL 164 <200 mg/dL [facility] HDL CHOLESTEROL 50 > OR = 40 mg/dL [facility] TRIGLYCERIDES 393(H) <150 mg/dL [facility] Comment: If a non-fasting specimen was collected, consider repeat triglyceride testing on a fasting specimen if clinically indicated. Sammy et al. J. of Clin. Lipidol. 2015;9:129-169. LDL-CHOLESTEROL 67 99 mg/dL (calc) [facility] Comment: Reference range: <100 Desirable range <100 mg/dL for primary prevention; <70 mg/dL for patients with CHD or diabetic patients with > or = 2 CHD risk factors. LDL-C is now calculated using the Charlie calculation, which is a validated novel method providing better accuracy than the Friedewald equation in the estimation of LDL-C. Mahesh SS et al. ADA. 2013;310(19): 7457-1020 (http://education.[employer]/faq/AMY497) CHOL/HDLC RATIO 3.3 <5.0 (calc) [facility] NON-HDL CHOLESTEROL 114 <130 mg/dL (calc) [facility] Comment: For patients with diabetes plus 1 major ASCVD risk factor, treating to a non-HDL-C goal of <100 mg/dL (LDL-C of <70 mg/dL) is considered a therapeutic option. Blood Blood / Unknown 12/09/2024 1 0:50 AM EDT 12/09/2024 10:52 AM EDT us Dede Christensen NP LAB - BLOOD DRAW Final Result [facility] [address] [address], [facility] [address] [address] * EYE EXAM (08/13/2024 3:00 AM EST) 08/13/2024 3:00 AM EST us Thomas PEREZ OTHER Edited Result - Final * DRUG MONITORING, PANEL 8 WITH CONFIRMATION, URINE (05/14/2024 5:26 PM EDT) AMPHETAMINES NEGATIVE <500 [facility] BENZODIAZEPINES NEGATIVE <100 QUES [facility] BUPRENORPHINE NEGATIVE <5 [facility] COCAINE METABOLITE NEGATIVE <150 Q UEST [facility] 6 ACETYLMORPHINE NEGATIVE <[address] [facility] [employer] MARIJUANA METABOLITE NEGATIVE CONFIRMED <20 [facility] MARIJUANA METAB PENDING [facility] MARIJUANA METABOLITE NEGATIVE <5 [facility] [employer] MARIJUANA METAB PENDING [facility] Marijuana Comments See Note Q [facility] [employer] Comment:See LDT Notes MDMA NEGATIVE <500 [facility] OPIATES NEGATIVE <100 [facility] OXYCODONE NEGATIVE <100 [facility] CREATININE 102.7 > or = 20.0 mg/dL [facility] PH 6.1 4.5 - 9.0 [facility] OXIDANT NEGATIVE <200 [facility] ALCOHOL METABOLITES NEGATIVE <500 [facility] Urine Urine specimen / Unknown 05/14/2024 5:26 PM EDT 05/15/2024 5:53 AM EDT us Thomas PEREZ LAB URINE AMBULATORY Edited Re sult - Final [facility] [address] [address], [facility] [address] [place] [address] * REFERRAL FOR COLONOSCOPY (09/20/2021 3:00 AM EST) 09/20/2021 3:00 AM EST us Thomas PEREZ REFERRAL Edited Result - Final from Last 3 Months or Most Recently Relevant to Health Maintenance Insurance [place] [facility] D[facility]AL MEDICAID Advance Directives Documents on File Type Date Recorded Patient Yellow Pages 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
[2025-05-17 10:30] VITALS: RESP 22
[2025-05-17 10:32] LABS: Alanine Aminotransferase 28 U/L (0-40); Albumin Level 4.0 g/dL (3.5-5.0); Alkaline Phosphatase 109 U/L (39-117); Anion Gap 11 (12-20); Aspartate Amino Transferase 29 U/L (5-37); Blood Urea Nitrogen 11 mg/dL (9-16); Calcium 8.7 mg/dL (8.4-10.2); Carbon Dioxide 24 mmol/L (22-29); Chloride 107 mmol/L (96-108); Creatinine Clr Calc Pharmacy 78.0; Estimated Glomerular Filt Rate > 60; Potassium 3.8 mmol/L (3.3-5.1); Sodium 138 mmol/L (135-145); Total Protein 8.2 g/dL (6.5-8.0)
[2025-05-17] MEDS: iohexoL 350 MG/ML 100 ML INFUS..BTL IV (10:39)
[2025-05-17 10:58] LABS: INTERNATIONAL NORM RATIO 2.3 (0.9-1.1); Prothrombin Time 26.6 SEC (10.9-12.4)
[2025-05-17 11:53] LABS: Lipase 11 U/L (8-78)
[2025-05-17 13:48] LABS: Appearance Urine Clear; Glucose Urine UA Negative (Negative); PH 8.0 (5.0-9.0); Specific Gravity - Urine >= 1.030 (1.005-1.025)
[2025-05-17 14:43] VITALS: BP 110/68; PULSE 68; RESP 16; TEMP 36.7; O2SAT 99
[2025-05-17 14:44] VITALS: BP 110/68; PULSE 68; RESP 16; TEMP 36.7; O2SAT 99
== END 2025-05-17 14:44 | disposition home or self-care (01) ==
PROVIDERS: Emergency Provider Emergency Medicine; PCP Dentist General Practice
DX: R10.32 Left lower quadrant pain (principal); R10.2 Pelvic and perineal pain; R11.0 Nausea; E03.9 Hypothyroidism, unspecified; R14.3 Flatulence; Z79.899 Other long term (current) drug therapy; Z86.718 Personal history of other venous thrombosis and embolism; Z79.01 Long term (current) use of anticoagulants; Z87.891 Personal history of nicotine dependence
CPT/HCPCS: 36415; 74177; 80053; 81003; 83690; 85025; 85610; 96361; 96374; 99284; 99285; J2270; Q9967

== ENCOUNTER → 2025-05-17 10:12 | Outpatient (BNV) | payer MEDICARE, MEDICAID, SELFPAY | PROVIDERS: Emergency Provider Emergency Medicine; PCP Dentist General Practice; Visit Provider Radiology Diagnostic Radiology | DX: N32.89 Other specified disorders of bladder (principal) | CPT/HCPCS: 74177 ==

== ENCOUNTER 2025-06-16 14:06 | Emergency (ER) | payer MEDICARE, MEDICAID, SELFPAY ==
--- NOTE | ~2025-06-16 | XR_ITS ---
EXAMINATION: XR CHEST 2 VIEWS HISTORY: pain COMPARISON: Comparison is made with the prior examination dated 06/27/2024. FINDINGS: PA and lateral views of the chest are submitted. The lungs are expanded and clear. There is no pleural effusion, pneumothorax, or pulmonary vascular congestion. The heart is normal in size. The bones are intact. XR/XR chest 2V IMPRESSION: No acute cardiopulmonary abnormality. Electronically signed by: Tim Devi MD 06/16/2025 03:37 PM EDT
--- NOTE | ~2025-06-16 | CT_ITS ---
CLINICAL HISTORY: LLQ pain, diverticulitis CT abdomen and pelvis with contrast Comparison: CT/REG/SR - CT ABDOMEN PELVIS W IV CON - 05/17/25 10:35 EDT Findings: Minimal atelectasis at the lung bases. Cholecystectomy. Abdominal solid organs unremarkable. No bowel obstruction, pneumoperitoneum, or pneumatosis. Abdominal aortic bifurcated stent graft. No residual aneurysm sac. Sigmoidectomy. At the staple line, there is slight wall thickening eccentrically to the right with subtle pericolonic fat stranding image 50 series 7. This could be subtle diverticulitis. Appendectomy. No ascites or hernia. No acute fracture. IMPRESSION: Questionable diverticulitis at the staple line of sigmoidectomy. No abscess. This document has been electronically signed by: Meg Potter MD on 06/16/2025 23:07:04
[2025-06-16 15:13] VITALS: BP 127/79; PULSE 86; RESP 20; TEMP 36.9; O2SAT 97; BMI 26.3
--- NOTE | 2025-06-16 15:14 | ED.GENADULT ---
HPI - General Adult General Chief complaint: Abdominal Pain Stated complaint: L side abd pain, pain both legs Time Seen by Provider: 06/16/25 20:51 Source: patient Limitations: language barrier History of Present Illness ED Provider: Alicia Tate PA-C HPI narrative: 49-year-old male with a history of HIV on HAART, diabetes, seizure disorder, AAA, LLE DVT on warfarin, prior complex diverticulitis who presents with abdominal pain. Pain over left lower to mid abdomen, nonradiating, unable to describe the nature of his discomfort. He states he has had discomfort for a week and it has increased in severity. Patient states his discomfort becomes worse with the eating, with the associated nausea. Denies vomiting, diarrhea or constipation. Denies dysuria, hematuria history of kidney stones. No flank pain. Patient also complains that the pain migrates down the left lower extremity. Denies injury to the hip or back pain. No new swelling of the left lower extremity. Related Data Home Medications ?Medication ?Instructions ?Recorded ?Confirmed albuterol sulfate 90 mcg/actuation 2 inh inhalation Q4H PRN 06/26/24 09/25/24 aerosol inhaler (Ventolin HFA) wheezing/sob atorvastatin 80 mg tablet 80 mg PO DAILY 06/26/24 09/25/24 cholecalciferol (vitamin D3) 50 50 mcg PO DAILY 06/26/24 09/25/24 mcg (2,000 unit) capsule darunavir 800 mg-cobicistat 150 mg 1 tab PO DAILY 06/26/24 09/25/24 tablet (Prezcobix) empagliflozin 25 mg tablet 25 mg PO DAILY 06/26/24 09/25/24 (Jardiance) famotidine 20 mg tablet 40 mg PO DAILY 06/26/24 09/25/24 lacosamide 100 mg tablet (Vimpat) 100 mg PO BID 06/26/24 09/25/24 levothyroxine 25 mcg tablet 25 mcg PO DAILY@0600 06/26/24 09/25/24 pantoprazole 40 mg tablet,delayed 40 mg PO DAILY@0630 06/26/24 09/25/24 release raltegravir 600 mg tablet 600 mg PO BID 06/26/24 09/25/24 (Isentress HD) tenofovir disoproxil fumarate 300 300 mg PO DAILY 06/26/24 09/25/24 mg tablet trazodone 150 mg tablet 150 mg PO BEDTIME 06/26/24 09/25/24 semaglutide 1 mg/dose (4 mg/3 mL) 1 mg subcut TU 09/25/24 09/25/24 subcutaneous pen injector (Ozempic) warfarin 10 mg tablet 10 mg PO DAILY 09/25/24 09/25/24 Previous Rx's ?Medication ?Instructions ?Recorded fondaparinux 7.5 mg/0.6 mL 7.5 mg (0.6 mL) subcut Q24H #0 mL 09/30/24 subcutaneous solution syringe amoxicillin 875 mg-potassium 1 tab PO BID #16 tabs 04/14/25 clavulanate 125 mg tablet ondansetron HCl 4 mg tablet 4 mg PO Q8H #20 tabs 04/28/25 morphine 10 mg capsule,extended 10 mg PO DAILY PRN pain #4 caps 05/17/25 release pellets levofloxacin 750 mg tablet 750 mg PO Q24H #6 tabs 06/16/25 metronidazole 500 mg tablet 500 mg PO Q8H 7 days #20 tabs 06/16/25 morphine 15 mg immediate release 15 mg PO Q8H PRN pain #10 tabs 06/16/25 tablet ondansetron 4 mg disintegrating 4 mg PO Q8H PRN nausea and 06/16/25 tablet vomiting #10 tabs Allergies Allergy/AdvReac Type Severity Reaction Status Date / Time influenza virus vaccine, Allergy Severe GUILLIAN Verified 06/16/25 15:16 specific (FLU VACCINE) BARRE HX. tramadol (TRAMADOL) Allergy Severe SEIZURES Verified 06/16/25 15:16 acetaminophen (From PERCOCET) Allergy Intermediate ITCHING Verified 06/16/25 15:16 carbamazepine (From TEGRETOL) Allergy Intermediate HALLUCINATI Verified 06/16/25 15:16 ONS lamotrigine (From LAMICTAL) Allergy Intermediate ITCHING Verified 06/16/25 15:16 metoclopramide (From REGLAN) Allergy Intermediate ITCHY Verified 06/16/25 15:16 oxycodone (From PERCOCET) Allergy Intermediate ITCHING Verified 06/16/25 15:16 SEAFOOD Allergy Severe ANAPHYLAXIS Uncoded 06/16/25 15:16 Review of Systems Review of Systems: Yes all other systems are reviewed and are negative Constitutional: Constitutional: Denies fatigue and Denies fever(s) Cardiovascular: Cardiovascular: Denies chest pain and Denies dyspnea Respiratory: Respiratory: Denies dyspnea Gastrointestinal: Gastrointestinal: Reports abdominal pain, Denies constipation, Denies diarrhea, Denies nausea and Denies vomiting Genitourinary: Genitourinary: Denies dysuria and Denies flank pain Musculoskeletal: Musculoskeletal: Denies back pain Endocrine: Endocrine: Denies fatigue [facility] Past Medical History Attestation statement: The following information was validated with the patient. Medical History Seizure Popliteal artery aneurysm AAA (abdominal aortic aneurysm) Left sided abdominal pain COVID-19 DVT (deep venous thrombosis) Diabetes Seizure disorder HIV (human immunodeficiency virus infection) Surgical History History of colon resection Status post cholecystectomy Status post laparoscopic appendectomy H/O fasciotomy S/P AAA (abdominal aortic aneurysm) repair S/P IVC filter Social History Social History Household Members: Spouse and Family Housing: House Do you presently have visiting nurse or other home services: No Alcohol intake: never Comment: pt refuses high fall risk precautions Patient Tobacco Use Status: Former Tobacco user Smoked in Last 30 Days: No Use of substances other than those prescribed or required for medical reasons: No Advance Directives: Yes Advance Directives on File: Yes Advance Directives Date on File: 09/26/24 Do you have a plan to hurt others: No Plan service: No Physical Exam ED Vital Signs: Vital Signs - 24 hr 06/16/25 15:13 06/16/25 19:33 06/16/25 21:13 Temperature 98.4 F 98.2 F 98.2 F Pulse Rate 86 82 82 Respiratory Rate 20 16 16 Blood Pressure 127/79 118/58 L 118/58 L Pulse Oximetry 97 98 98 Oxygen Delivery Method Room Air Room Air Room Air 06/16/25 23:48 Temperature 98.0 F Pulse Rate 75 Respiratory Rate 18 Blood Pressure 106/72 Pulse Oximetry 97 Oxygen Delivery Method Room Air BMI result Body Mass Index 26.3 Const Other: Alert well-appearing Orientation/consciousness: patient oriented x3 Resp Effort & Inspection: normal respiratory effort Cardio Other: Normal peripheral perfusion GI Other: Abdomen is soft, nondistended, mild tenderness left lower to mid abdomen without guarding Skin Other: Warm dry no rash Neuro General: patient oriented x3, gait normal, no focal motor deficits and CN's II-XI intact bilaterally Psych Other: Cooperative Course Course Course Narrative: RME, this is a rapid medical exam performed by Ede Pascal please refer to primary provider for complete H&P- 49-year-old male presents for evaluation of upper abdominal pain, nausea the in his worse after eating. He also complains of chest pain and left arm pain. Has a history of DVT and being on a blood thinner. Per his records he is on warfarin. Plan for cardiac workup Medications Administered Discontinued Medications Generic Name Dose Route Start Last Admin Trade Name Freq PRN Reason Stop Dose Admin Iohexol 85 ml 06/16/25 22:19 06/16/25 22:21 Iohexol 350 Mg/Ml 100 Ml Infus..Btl IV 06/16/25 22:20 85 ml ONCE ONE Administration Levofloxacin 750 mg 06/16/25 23:16 06/16/25 23:51 Levofloxacin 750 Mg Tablet PO 06/16/25 23:17 750 mg ONCE ONE Administration Metronidazole 500 mg 06/16/25 23:16 06/16/25 23:51 Metronidazole 500 Mg Tablet PO 06/16/25 23:17 500 mg ONCE ONE Administration Morphine Sulfate 4 mg 06/16/25 21:32 06/16/25 21:45 Morphine Sulfate 4 Mg/Ml Cartridge IVPUSH 06/16/25 21:33 4 mg ONCE ONE Administration Protocol Morphine Sulfate 15 mg 06/16/25 23:58 06/17/25 00:03 Morphine Sulfate Immed Release 15 Mg Tablet PO 06/16/25 23:59 15 mg ONCE ONE Administration Ondansetron HCl 4 mg 06/16/25 21:32 06/16/25 21:45 Ondansetron Hcl 4 Mg/2 Ml Vial IVPUSH 06/16/25 21:33 4 mg ONCE ONE Administration Procedures Procedure Narrative Procedure Narrative: 20 gauge 1-3/4 inch IV placed in left upper extremity. Adequate blood return, flushes well secured with Tegaderm Medical Decision Making Medical Decision Making MDM Narrative: 49-year-old male with a history of HIV on HAART, diabetes, seizure disorder, AAA, LLE DVT on warfarin, prior complex diverticulitis who presents with abdominal pain. Pain over left lower to mid abdomen, nonradiating, unable to describe the nature of his discomfort. He states he has had discomfort for a week and it has increased in severity. Patient states his discomfort becomes worse with the eating, with the associated nausea. Denies vomiting, diarrhea or constipation. Denies dysuria, hematuria history of kidney stones. No flank pain. Patient also complains that the pain migrates down the left lower extremity. Denies injury to the hip or back pain. No new swelling of the left lower extremity. Problem: HIV, AAA, prior diverticulitis History: Per patient I have considered the following differential diagnoses: UTI, renal colic, diverticulitis, lumbar radiculopathy, cauda equina Plan: The patient is here with left lower abdominal discomfort, given he is immunocompromised, and has had prior diverticulitis, we will obtain a CT scan. Giving morphine Zofran and IV fluid. Screening labs completed and are unremarkable. Doubtful to be renal colic or a urinary tract infection, he has not had flank pain, he has no symptoms. We will collect a urine sample. He is having pain that radiates down the left lower extremity, considering lumbar radiculopathy, although he denies back pain. He also has no red flag signs symptoms concerning for cord compression. He denies mechanism of injury to support musculoskeletal strain. Perhaps it is referred pain from an intra-abdominal source. I have independently reviewed the following tests: Labs: No leukocytosis, not anemic, no electrolyte abnormality, urine not infected CT abdomen and pelvis:IMPRESSION: Questionable diverticulitis at the staple line of sigmoidectomy. No abscess. Differential Diagnosis Differential Diagnoses: The differential diagnosis associated with the presentation includes See medical decision-making Admission/Observation Consideration of admission/observation: Escalation of care including admission/observation considered Not applicable Lab Data MDM Lab Attestation statement: I reviewed the patient's lab results. 06/16/25 21:46 06/16/25 21:46 Labs: Lab Results 06/16/25 06/16/25 06/16/25 Range/Units 16:09 20:28 21:46 WBC 5.2 (4.8-10.8) X10*3/uL RBC 4.46 L (4.60-5.80) X10*6/uL Hgb 12.8 L (14.0-18.0) g/dl Hct 39.7 L (42.0-52.0) % MCV 89.0 (80.0-98.0) fL MCH 28.7 (27.0-33.0) pg MCHC 32.2 (31.0-36.0) g/dl RDW 14.6 (11.0-16.0) % Plt Count 188 D (160-400) X10*3/uL MPV 9.3 L (9.4-12.4) fL Immature Gran % (Auto) 0.4 (0.0-0.4) % Neut % (Auto) 35.7 L (45-73) % Lymph % (Auto) 49.7 H (20-40) % [place] % (Auto) 12.6 H (2-11) % Eos % (Auto) 1.0 (0-4) % Baso % (Auto) 0.6 (0-2) % Lymph # (Auto) 2.6 (1.2-4.9) X10*3/uL [place] # (Auto) 0.7 (0.1-1.2) X10*3/uL Eos # (Auto) 0.1 (0.0-0.4) X10*3/uL Baso # (Auto) 0.0 (0.0-0.2) X10*3/uL Abs Immat Gran (auto) 0.02 (0.00-0.03) X10*3/uL Absolute Neuts (auto) 1.8 L (2.0-8.3) x10*3/uL Absolute Nucleated RBC 0.000 (0.0-0.012) X10*3/uL Nucleated RBC % (auto) 0.0 (0.0-0.2) /100WBC PT 30.7 H (10.9-12.4) SEC INR 2.7 H (0.9-1.1) Sodium 140 (135-145) mmol/L Potassium 3.6 (3.3-5.1) mmol/L Chloride 110 H (96-108) mmol/L Carbon Dioxide 25 (22-29) mmol/L Anion Gap 9 L (12-20) BUN 7 L (9-16) mg/dL Creatinine 0.97 (0.5-1.4) mg/dL Estim Creat Clear Calc 90.0 Estimated GFR > 60 Random Glucose 109 (60-115) mg/dL Calcium 9.3 D (8.4-10.2) mg/dL Total Bilirubin 0.3 (0.0-1.0) mg/dL AST 28 (5-37) U/L ALT 36 (0-40) U/L Alkaline Phosphatase 115 (39-117) U/L Troponin I High Sens < 2.7 (<3.5-35.0) ng/L Total Protein 9.0 H (6.5-8.0) g/dL Albumin 4.4 (3.5-5.0) g/dL Lipase 19 (8-78) U/L Urine Color Yellow Urine Appearance Turbid Urine pH 6.5 (5.0-9.0) Ur Specific Louise 1.025 (1.005-1.025) Urine Protein 30 (1+) H (Neg-Trace) mg/dL Urine Glucose (UA) 250 H (Negative) mg/dL Urine Ketones Negative (Negative) mg/dL Urine Blood Negative (Negative) Urine Nitrite Negative (Negative) Ur Leukocyte Esterase Negative (Negative) Urine RBC 0-2 (0-2) /HPF Urine WBC 0-5 (0-5) /HPF Ur Squamous Epith Cells 0-2 (0-2) /HPF Urine Bacteria None Seen (None Seen) Hyaline Casts 0-2 (0-2) /LPF COVID-19 (CAYLA) Negative (Negative) COVID-19 Clin Com See Note Influenza Type A (FOX) Negative (Negative) Influenza Type B (FOX) Negative (Negative) Influenza A & B Note See Note Radiology Impression Discussion of test interpretation with radiology: I have reviewed the radiologist's reading. Discharge Plan Discharge Clinical Impression: Diverticulitis Patient Disposition: Home, Self-Care Instructions: Diverticulitis (ED), Diverticulitis Diet (ED) Additional Instructions: You were found to have early diverticulitis. See home care instructions. Take the Levaquin as directed, take the Flagyl as directed, complete the course of each antibiotic. Uses Zofran as needed for nausea. Use the oxycodone as needed for pain. Follow up with your primary care provider as needed. Prescriptions: New metronidazole 500 mg tablet 500 mg PO Q8H 7 Days Qty: 20 0RF levofloxacin 750 mg tablet 750 mg PO Q24H Qty: 6 0RF ondansetron 4 mg tablet,disintegrating 4 mg PO Q8H PRN (Reason: nausea and vomiting) Qty: 10 0RF morphine 15 mg tablet 15 mg PO Q8H PRN (Reason: pain) Qty: 10 0RF Rx Instructions: Partial Fill upon patient request. No Action warfarin 10 mg tablet 10 mg PO DAILY Ozempic 1 mg/dose (4 mg/3 mL) pen injector 1 mg subcut TU fondaparinux 7.5 mg/0.6 mL Syringe 7.5 mg subcut Q24H Qty: 0 0RF amoxicillin-pot clavulanate 875-125 mg tablet 1 tab PO BID Qty: 16 0RF atorvastatin 80 mg tablet 80 mg PO DAILY famotidine 20 mg tablet 40 mg PO DAILY lacosamide [Vimpat] 100 mg tablet 100 mg PO BID levothyroxine 25 mcg tablet 25 mcg PO DAILY@0600 pantoprazole 40 mg tablet,delayed release (DR/EC) 40 mg PO DAILY@0630 trazodone 150 mg tablet 150 mg PO BEDTIME tenofovir disoproxil fumarate 300 mg tablet 300 mg PO DAILY cholecalciferol (vitamin D3) 50 mcg (2,000 unit) capsule 50 mcg PO DAILY Jardiance 25 mg tablet 25 mg PO DAILY Prezcobix 800-150 mg-mg tablet 1 tab PO DAILY Isentress HD 600 mg tablet 600 mg PO BID albuterol sulfate [Ventolin HFA] 90 mcg/actuation HFA aerosol inhaler 2 inh inhalation Q4H PRN (Reason: wheezing/sob) ondansetron HCl 4 mg tablet 4 mg PO Q8H Qty: 20 0RF morphine 10 mg capsule,extend.release pellets 10 mg PO DAILY PRN (Reason: pain) Qty: 4 0RF Rx Instructions: Partial Fill upon patient request. Interventions: ED Discharge Assessment Last Done: 06/17/25 00:17 Discharge Date/Time: 06/17/25 00:20 Print Language: Welsh
--- NOTE | 2025-06-16 15:15 | ECG_ITS ---
Test Reason : pain Blood Pressure : */* mmHG Vent. Rate : 86 BPM Atrial Rate : 86 BPM P-R Int : 146 ms QRS Dur : 86 ms QT Int : 358 ms P-R-T Axes : 56 62 15 degrees QTcB Int : 428 ms Normal sinus rhythm with sinus arrhythmia Normal ECG When compared with ECG of 25-Sep-2024 13:46, No significant change was found Referred By: Ramsey Pascal Electronically Signed By:
[2025-06-16 16:55] LABS: COVID-19 Test Negative (Negative); IDNOW Serial# 58CA691E
[2025-06-16 17:01] LABS: IDNOW Serial# 55D5AD1C; Influenza B2 Negative (Negative)
[2025-06-16 19:33] VITALS: BP 118/58; PULSE 82; RESP 16; TEMP 36.8; O2SAT 98
[2025-06-16 20:34] LABS: Appearance Urine Turbid; Glucose Urine UA 250 mg/dL (Negative); PH 6.5 (5.0-9.0); Specific Gravity - Urine 1.025 (1.005-1.025); UMIC TRIGGER UACC YES
[2025-06-16 21:13] VITALS: BP 118/58; PULSE 82; RESP 16; TEMP 36.8; O2SAT 98
--- OUTSIDE RECORDS SUMMARY | 2025-06-16 21:36 | XMS_ITS | Encounter Summary ---
Author Organization [facility] Address [address] [place] [phone] Phone Care Team Providers Care Instructional Support Assistant Name Role Phone Pcp, Unknown Primary Care Provider Unavailabl e Denise Weiner PA-C Primary Care Provider Pcp, Unknown Primary Care Provider Unavailabl e Encounter Details Date Type Department Care Team (Late st Contact Info) Description 05/14/2025 Procedure Pass [facility], Ct Scan - [facility] [address] [place] [address] Social History Tobacco Use Types Packs/Day Years [...] 9:56 AM EDT Clay Yost RN * [place] Suicide Severity Rating Scale (Screener/Recent Self-Report) Question [...] CDiff-Risk 05/14/2025 05/16/2025 05/16/2025 1:32 PM EDT CoV-Risk 06/08/2025 06/08/2025 documented as of this encounter Care Teams Instructional Support Assistant Relationship Specialty Start Date End Date Pcp, Unknown PCP - General 05/16/25 06/07/25 Denise Weiner PA-C [address] [place], [place] [id number] [email or web address] PCP - General Physician Mail Teller 05/15/25 05/15/25 Pcp, Unknown PCP - General 06/08/25 documented as of this encounter Additional Source Comments The information contained in this document represents components of the legal health record. It is not the complete legal health record.[facility]
--- OUTSIDE RECORDS SUMMARY | 2025-06-16 21:36 | XMS_ITS | Clinical Summary ---
Author Organization [facility] Address [address] [place] [address] Care Team Providers Care Filler Sifter Machine Name Role Phone Thomas Kam Primary Care Provider [phone] Allergies Active Allergy Reactions Criticality Noted Date [...] for muscle spasms. 20 tablet 02/11/2022 Active Encounters Date Type Department Care Team Description 06/07/2025 9:44 AM EDT - 06/07/2025 4:41 PM EDT Emergency [facility] Emergency Department [address] [place] [address] Ronen Farris MD Abdominal pain (Primary Dx) Discharge Disposition: Home or Self Care 06/07/2025 Travel from Last 3 Months Social History Tobacco [...] Sign Reading Time Taken Comments Blood Pressure 114/55 06/07/2025 2:17 PM EDT Pulse 86 06/07/2025 2:17 PM EDT Temperature 36 C (96.8 F) 06/07/2025 9:42 AM EDT Respiratory Rate 16 06/07/2025 2:17 PM EDT Oxygen Saturation 96% 06/07/2025 2:17 PM EDT Inhaled Oxygen Concentration - - [...] Vaccine (1 of 2) 1992 Colonoscopy 2018 RSV Vaccine 50 years and old er and Patients (1 - Risk 50-74 years 1-dose series) 2023 Influenza Vaccine 03/27/2025 07/29/2013, 05/06/2010 COVID-19 Vaccine (4 - 2024-2 6 season) 2025 04/03/2022, 09/02/2021, 08/08/2021 Chronic Controlled Substance User PDMP Review Discontinued 10/29/2024 HIV Screening Completed 06/04/2025, 04/27, 03/04/2024, Additional history exists Procedures Procedure Name Priority Date/Time Associated Diagnosis Comments VAS VENOUS DUPLEX LEG (DVT)-BILATERAL STAT 06/07/2025 3:59 PM EDT CTA ABDOMEN+PELVIS W W/O CONTRAST STAT 06/07/2025 3:05 PM EDT PROTIME-INR STAT 06/07/2025 12:02 PM EDT HIGH SENSITIVITY TROPONIN T CARD 06/07/2025 10:29 AM EDT LIPASE STAT 06/07/2025 10:29 AM EDT HEPATIC FUNCTION PANEL STAT 06/07/2025 10:29 AM EDT BASIC METABOLIC PANEL STAT 06/07/2025 10:29 AM EDT COMPLETE BLOOD COUNT, WITH DIFFERENTIAL STAT 06/07/2025 10:29 AM EDT ECG 12-LEAD ED Critical 06/07/2025 9:45 AM EDT from Last 3 Months Results * VAS VENOUS DUPLEX LEG (DVT)-BILATERAL (06/07/2025 3:59 PM EDT) Anatomical Region Laterality Modality Ultrasound 06/07/2025 3:25 PM EDT Narrative 06/07/2025 7:17 PM EDT Table formatting from the original result was not included. Department: [facility] Patient: [id number] (CARLOS GONZALEZ) Patient Location: ED CPT Code: 11469 ICD-9: Referring Physician: RONEN FARRIS Right lower extremity venous duplex ultrasound exam demonstrates normal Doppler flow with no thrombus seen on mcgill scale image. Findings are not consistent with the presence of deep vein thrombosis. 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 There is also a patent above knee to below knee bypass graft noted with normal Doppler flow. Left lower extremity venous duplex ultrasound demonstrates evidence of non- occlusive, chronic venous thrombosis involving the popliteal vein. There is marked echogenicity of the thrombus and no vein dilatation indicating this is likely a chronic process. The remainder of the deep system is patent without evidence of thrombus. Indications Bilateral Limb Pain [M79.609]. 49 year old male with history of AAA repair and leg pain, presents for lower extremity venous duplex examination. Findings: Right Impression Phasic Compressible Common Femoral Vein Normal Yes Complete Proximal femoral vein Normal Complete Mid femoral vein Normal Complete Distal femoral vein Normal Complete Popliteal Normal Complete Posterior Tibial Vein Normal Complete Peroneal Normal Complete GSV Saphenofemoral junction Normal Complete Left Impression Phasic Compressible Common Femoral Vein Normal Yes Complete Proximal femoral vein Normal Complete Mid femoral vein Normal Complete Distal femoral vein Normal Complete Popliteal Chronic Partial Thrombus Partial Posterior Tibial Vein Normal Complete Peroneal Normal Complete GSV Saphenofemoral junction Normal Complete Electronically Signed by: Jose Edwards MD, RPVI on 2025-06-07 07:17:51 PM End of Report Procedure Note Jose Edwards MD - 06/07/2025 Department: [facility] Patient: [id number] (CATRACHO HSIEHALINE ) Patient Location: [facility] CPT Code: 72613 ICD-9: Referring Physician: RONEN FARRIS Right lower extremity venous duplex ultrasound exam demonstrates normalDoppler flow with no thrombus seen on mcgill scale image. Findings are notconsistent with the presence of deep vein thrombosis. Incidental Finding:There is a thrombosed right popliteal artery aneurysm measuringapproximately 2.36 cm x 2.62 cm x 2.32 cm. There is also a patent aboveknee to below knee bypass graft noted with normal Doppler flow. Left lower extremity venous duplex ultrasound demonstrates evidence ofnon- occlusive, chronic venous thrombosis involving the popliteal vein.There is marked echogenicity of the thrombus and no vein dilatationindicating this is likely a chronic process. The remainder of the deepsystem is patent without evidence of thrombus. Indications Bilateral Limb Pain [M79.609]. 49 year old male with history of AAA repair and leg pain, presents forlower extremity venous duplex examination. Findings: Right Impression Phasic Compressible Common Femoral Vein Normal Yes Complete Proximal femoral vein Normal Complete Mid femoral vein Normal Complete Distal femoral vein Normal Complete Popliteal Normal Complete Posterior Tibial Vein Normal Complete Peroneal Normal Complete GSV Saphenofemoral junction Normal Complete Left Impression Phasic Compressible Common Femoral Vein Normal Yes Complete Proximal femoral vein Normal Complete Mid femoral vein Normal Complete Distal femoral vein Normal Complete Popliteal Chronic Partial Thrombus Partial Posterior Tibial Vein Normal Complete Peroneal Normal Complete GSV Saphenofemoral junction Normal Complete Electronically Signed by: Jose Edwards MD, RPVI on :17:51 PM End of Report us Ronen Farris MD VASCULAR LAB ORDERABLES Final R esult * CTA Abdomen+pelvis w w/o contrast (06/07/2025 3:05 PM EDT) Anatomical Region Laterality Modality CTA Body Computed Tomogra phy 06/07/2025 2:55 PM EDT Impressions 06/07/2025 3:43 PM EDT * No bowel ischemia. No acute abnormality in the abdomen and pelvis. 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 Fleischner guidelines were followed. Narrative 06/07/2025 3:43 PM EDT STUDY PERFORMED: CTA OF THE ABDOMEN AND PELVIS WITH AND WITHOUT CONTRAST CLINICAL INFORMATION: Diffuse abd pain, hx of AAA repair, DVTs on coumadin, concern for mesenteric ischemia DESCRIPTION: Initial noncontrast localizing bottle labeler images were obtained. A timing bolus at the level of the celiac artery was calculated. Subsequently, arterial phase multidetector volumetric imaging was performed through the abdomen and pelvis following the administration of 100 mL Omnipaque 350 intravenous contrast. No contrast reaction reported Sagittal and coronal reformatted images were obtained on the technologist's workstation. After extensive post-processing on a dedicated 3-D workstation, 3-D reformatted images were uploaded to PACS and reviewed as well. This CT examination was performed using dose optimization techniques as appropriate, variously including the following: *Automated exposure control *Adjustment of mA and/or kV according to patient size (this includes techniques or standardized protocols for targeted exams where dose is matched to indication/reason for exam; i.e. extremities or head) *Use of iterative reconstruction technique Total exam dose-length product 541 mGy-cm COMPARISON: Prior from October 29, 2024 FINDINGS: Vascular: Patient is status post endovascular repair of infrarenal abdominal aortic aneurysm. Aortobiiliac stent grafts are seen and are patent. Unchanged mild sac enhancement at the right common iliac artery suggestive of type Ib endoleak (image 54 series 3). 1. Mesenteric Arteries: The celiac axis, superior mesenteric artery are patent. Incidental note is made of direct origin of left gastric artery from the aorta. The inferior mesenteric artery origin is excluded by stent grafts. There is however reconstitution distally via the superior mesenteric artery branches. 2. Renal Arteries: The single renal arteries bilaterally appear to be patent proximally. 3. Infrarenal Abdominal Aorta : As above 4. Inferior Vena Cava: Normal 5. Iliac venous system: Normal 6. Cara-mesenteric venous system: Normal Nonvascular: LUNG BASES: No nodules, mass, or focal consolidation. PLEURA: No pleural effusion. LIVER, GALLBLADDER, AND BILIARY TREE: The liver is normal in size, shape, and attenuation. No focal hepatic lesion or biliary ductal dilatation is present. Status post cholecystectomy. PANCREAS: Normal; no mass or surrounding fluid. SPLEEN: Normal size. Scattered calcified granulomas. No focal lesion. ADRENAL GLANDS: Normal; no mass. KIDNEYS AND URETERS: The kidneys are normal in size, shape, and attenuation. No hydronephrosis, hydroureter, or calculi. GASTROINTESTINAL TRACT: Bowel loops are nonobstructed. Partial colectomy. Appendix is absent. ABDOMINAL WALL: No hernia seen. LYMPHATIC STRUCTURES: No lymphadenopathy. BLADDER: No focal mass or wall thickening seen. No bladder calculi. PELVIC VISCERA: Mild stranding adjacent to the seminal vesicles and prostate is unchanged from October 29, 2024 and likely is nonspecific. OSSEOUS STRUCTURES: No acute or suspicious osseous abnormality. Procedure Note Ryan Vasquez MD - 06/07/2025 STUDY PERFORMED: CTA OF THE ABDOMEN AND PELVIS WITH AND WITHOUT CONTRAST CLINICAL INFORMATION: Diffuse abd pain, hx of AAA repair, DVTs on coumadin, concern for mesenteric ischemia DESCRIPTION: Initial noncontrast localizing bottle labeler images were obtained. A timing bolus at the level of the celiac artery was calculated. Subsequently, arterial phase multidetector volumetric imaging was performed through the abdomen and pelvis following the administration of 100 mL Omnipaque 350 intravenous contrast. No contrast reaction reported Sagittal and coronal reformatted images were obtained on the technologist's workstation. After extensive post-processing on a dedicated 3-D workstation, 3-D reformatted images were uploaded to PACS and reviewed as well. This CT examination was performed using dose optimization techniques as appropriate, variously including the following: *Automated exposure control *Adjustment of mA and/or kV according to patient size (this includes techniques or standardized protocols for targeted exams where dose is matched to indication/reason for exam; i.e. extremities or head) *Use of iterative reconstruction technique Total exam dose-length product 541 mGy-cm COMPARISON: Prior from October 29, 2024 FINDINGS: Vascular: Patient is status post endovascular repair of infrarenal abdominal aortic aneurysm. Aortobiiliac stent grafts are seen and are patent. Unchanged mild sac enhancement at the right common iliac artery suggestive of type Ib endoleak (image 54 series 3). 1. Mesenteric Arteries: The celiac axis, superior mesenteric artery are patent. Incidental note is made of direct origin of left gastric artery from the aorta. The inferior mesenteric artery origin is excluded by stent grafts. There is however reconstitution distally via the superior mesenteric artery branches. 2. Renal Arteries: The single renal arteries bilaterally appear to be patent proximally. 3. Infrarenal Abdominal Aorta : As above 4. Inferior Vena Cava: Normal 5. Iliac venous system: Normal 6. Cara-mesenteric venous system: Normal Nonvascular: LUNG BASES: No nodules, mass, or focal consolidation. PLEURA: No pleural effusion. LIVER, GALLBLADDER, AND BILIARY TREE: The liver is normal in size, shape, and attenuation. No focal hepatic lesion or biliary ductal dilatation is present. Status post cholecystectomy. PANCREAS: Normal; no mass or surrounding fluid. SPLEEN: Normal size. Scattered calcified granulomas. No focal lesion. ADRENAL GLANDS: Normal; no mass. KIDNEYS AND URETERS: The kidneys are normal in size, shape, and attenuation. No hydronephrosis, hydroureter, or calculi. GASTROINTESTINAL TRACT: Bowel loops are nonobstructed. Partial colectomy. Appendix is absent. ABDOMINAL WALL: No hernia seen. LYMPHATIC STRUCTURES: No lymphadenopathy. BLADDER: No focal mass or wall thickening seen. No bladder calculi. PELVIC VISCERA: Mild stranding adjacent to the seminal vesicles and prostate is unchanged from October 29, 2024 and likely is nonspecific. OSSEOUS STRUCTURES: No acute or suspicious osseous abnormality. IMPRESSION: * No bowel ischemia. No acute abnormality in the abdomen and pelvis. 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 Fleischner guidelines were followed. us Ronen Farris MD IMG CT ORDERABLES Final Result * (ABNORMAL) INR (06/07/2025 12:02 PM EDT) Anticoagulant WARFARIN (COUMADIN) 06/07/2025 11:19 AM EDT [facility] Prothrombin Time (PT) 27.7(H) 10.0 - 13.5 seconds 06/07/2025 1:14 PM EDT [facility] INR 2.4 06/07/2025 1:14 PM EDT [facility] Comment:INR Therapeutic Rang es: Standard dose anticoagulant 2.0 to 3.0, High dose anticoagulant 2.5-3.5. Blood Blood specimen / Unknown 06/07/2025 12:02 PM EDT 06/07/2025 12:57 PM EDT Ronen Farris MD LAB BLOOD ORDERABLES [place] [address], [place] [address] * Troponin T, High Sensitivity (06/07/2025 10:29 AM EDT) [facility] High Sensitivity Troponin T 7 <23 ng/L 06/07/2025 11:34 AM EDT [facility] Delta (Change) NO PREVIOUS RESULT <3 06/07/2025 11:34 AM EDT [facility] Blood Blood specimen / Unknown 06/07/2025 10:29 AM EDT 06/07/2025 11:05 AM EDT Joaquina PEREZ LAB BLOOD ORDERABLES [place] [address], [place] [address] * (ABNORMAL) Complete Blood Count, with Differential (06/07/2025 10:29 AM EDT) White Blood Cell Count 3.9(L) 4.0 - 11.0 Thou/uL 06/07/2025 11:16 AM [facility] Platelet Count 183 150 - 450 Thou/uL 06/07/2025 11:16 AM [facility] Hemoglobin 12.5(L) 13.0 - 17.7 g/dL 06/07/2025 11:16 AM [facility] Hematocrit 38.3(L) 39.0 - 54.0 % 06/07/2025 11:16 AM [facility] Red Blood Cell Count 4.26(L) 4.50 - 6.20 Mil/uL 06/07/2025 11:16 AM [facility] MCV 90 80 - 100 fL 06/07/2025 11:16 AM [facility] MCH 29.3 27.0 - 31.0 pg 06/07/2025 11:16 AM [facility] MCHC 32.6 30.0 - 36.0 g/dL 06/07/2025 11:16 AM [facility] RDW 15.1(H) 11.5 - 14.5 % 06/07/2025 11:16 AM [facility] MPV 9.7 7.5 - 12.5 fL 06/07/2025 11:16 AM [facility] Neutrophils Auto 51.2 % 06/07/20 11:16 AM [facility] Immature Granulocytes 0.0 % 06/07/2025 11:16 AM [facility] Lymphocytes Auto 38.9 % 06/07/20 11:16 AM [facility] Monocytes Auto 8.9 % 06/07/2025 11:16 AM [facility] Eosinophils Auto 0.5 % 06/07/20 11:16 AM [facility] Basophils Auto 0.5 % 06/07/2025 11:16 AM [facility] Abs Neutrophils Auto 2.01 2.00 - 7.50 Thou/uL 06/07/2025 11:16 AM [facility] Abs Immature Granulocytes 0.00 0.00 - 0.10 Thou/uL 06/07/2025 11:16 AM [facility] Abs Lymphocytes Auto 1.53 1.50 - 4.50 Thou/uL 06/07/2025 11:16 AM [facility] Abs Monocytes Auto 0.35 0.20 - 1.50 Thou/uL 06/07/2025 11:16 AM EDT [facility] Abs Eosinophils Auto 0.02 0.00 - 0.70 Thou/uL 06/07/2025 11:16 AM EDT [facility] Abs Basophils Auto 0.02 0.00 - 0.20 Thou/uL 06/07/2025 11:16 AM EDT [facility] Blood Blood specimen / Unknown 06/07/2025 10:29 AM EDT 06/07/2025 11:05 AM EDT us Joaquina L Sirrine PA LAB BLOOD ORDERABLES [place] [address], [place] [address] * Lipase (06/07/2025 10:29 AM EDT) Lipase 18 13 - 60 U/L 06/07/2025 11:34 AM EDT [facility] Blood Blood specimen / Unknown 06/07/2025 10:29 AM EDT 06/07/2025 11:05 AM EDT us Joaquina L Sirrine PA LAB BLOOD ORDERABLES Agueda l Result Performing Organization Address City/[facility]/[place] [address], [place] [address] * Hepatic Function Panel (06/07/2025 10:29 AM EDT) Alkaline Phosphatase 107 45 - 128 U/L 06/07/2025 11:34 AM EDT [facility] Aspartate Aminotrans (AST) 31 10 - 55 U/L 06/07/2025 11:34 AM EDT [facility] Alanine Aminotrans (ALT) 34 10 - 55 U/L 06/07/2025 11:34 AM EDT [facility] Bilirubin, Total 0.3 0.2 - 1.0 mg/dL 06/07/2025 11:34 AM [facility] Protein, Total 7.8 6.3 - 8.3 g/dL 06/07/2025 11:34 AM [facility] Albumin 3.9 3.5 - 5.0 g/dL 06/07/2025 11:34 AM [facility] Bilirubin, Direct 0.1 0 - 0.2 mg/dL 06/07/2025 11:34 AM [facility] Globulin 3.9 1.5 - 3.9 g/dL 06/07/2025 11:34 AM [facility] Albumin/Globulin Ratio 1.0 1.0 - 3.0 Ratio 06/07/2025 11:34 AM [facility] Blood Blood specimen / Unknown 06/07/2025 10:29 AM EDT 06/07/2025 11:05 AM EDT Joaquina PEREZ LAB BLOOD ORDERABLES [place] [address], [place] [address] * (ABNORMAL) Basic Metabolic Panel (06/07/2025 10:29 AM EDT) Glucose 175(H) 65 - 99 mg/dL 06/07/2025 11:34 AM [facility] Comment:Fasting: <100 mg/dL, Non-Fasting: <200 mg/dL (ADA 2005) Blood Urea Nitrogen (BUN) 12 8 - 21 mg/dL 06/07/2025 11:34 AM [facility] Creatinine 1.02 0.50 - 1.30 mg/dL 06/07/2025 11:34 AM [facility] eGFR 89 >59 06/07/2025 11:34 AM [facility] Comment:CKD-EPI (2020) in mL /min/1.73 sq meters. Sodium 136 136 - 145 mmol/L 06/07/2025 11:34 AM [facility] Potassium 3.9 3.4 - 5.3 mmol/L 06/07/2025 11:34 AM [facility] Chloride 103 98 - 107 mmol/L 06/07/2025 11:34 AM EDT [facility] CO2 21(L) 22 - 33 mmol/L 06/07/2025 11:34 AM EDT [facility] Anion Gap 12 7 - 17 06/07/2025 11:34 AM EDT [facility] Calcium 8.8 8.7 - 10.5 mg/dL 06/07/2025 11:34 AM EDT [facility] BUN/Creatinine Ratio 12 10.0 - 25.0 Ratio 06/07/2025 11:34 AM EDT [facility] Blood Blood specimen / Unknown 06/07/2025 10:29 AM EDT 06/07/2025 11:05 AM EDT us Joaquina PEREZ LAB BLOOD ORDERABLES Agueda vincent Result [address] [address], [address] [address] * 10 Min ECG 12 lead (06/07/2025 9:45 AM EDT) Ventricular rate 92 BPM EKG [facility] Atrial rate 92 BPM EKG [facility] P-R interval 142 ms EKG [facility] QRS duration 88 ms EKG [facility] Q-T interval 362 ms EKG [facility] QTC calculation (Bazett) 448 ms EKG [facility] P axis 50 degrees EKG [facility] R axis 37 degrees EKG [facility] T axis 21 degrees EKG [facility] 06/07/2025 9:45 AM EDT Narrative EKG [facility] - 06/07/2025 12:05 PM EDT Normal sinus rhythm Normal ECG When compared with ECG of 29-Oct-2024 15:49, No significant change was found Confirmed by Chema Mckeon MD ([id number]) on 06/07/2025 12:05:00 PM Procedure Note Chema Mckeon MD - 06/07/2025 Normal sinus rhythm Normal ECG When compared with ECG of 29-Oct-2024 15:49, No significant change was found Confirmed by Chema Mckeon MD ([id number]) on 06/07/2025 12:05:00 PM us Mandi Tavarez MD ECG ORDERABLES Final Result EKG [facility] from Last 3 Months Insurance [facility] MEDICARE PART A & B Care Teams Filler Sifter Machine Relationship Specialty Start Date End Date Thomas Kam PA PCP - General Emergency Medicine 03/03/23
--- OUTSIDE RECORDS SUMMARY | 2025-06-16 21:36 | XMS_ITS | Clinical Summary ---
Author Organization [facility] Address [address] [place] [address] Phone Care Team Providers Care Prefabricator Name Role Phone Thomas Kam Primary Care Provider [phone] Allergies Active Allergy Reactions Criticality Noted Date Comments Acetaminophen Itching 10/13/2024 Flu Vaccine [id number](36mo,Up) 10/13/2024 GUILLAN BARRE SYNDROME Lamotrigine Rash 10/13/2024 [...] Active Problems Problem Noted Date Diagnosed Date Abdominal pain 05/19/2025 Allergy 05/19/2025 Anemia, unspecified 05/19/2025 Asthma 05/19/2025 Chronic obstructive asthma w ith status asthmaticus ([facility] [place], [facility] [place]28) 05/19/2025 History of appendectomy 05/19/2025 Overview (05/19/2025): 2004 HTN (hypertension) 05/19/2025 Undiagnosed cardiac murmurs 05/19/2025 Ventral hernia 05/19/2025 C. difficile diarrhea 12/10/2024 HIV (human immunodeficiency virus infection) ([facility] V24, [facility] V28) 11/12/2024 Hypothyroid 11/12/2024 Epilepsy ([facility] [place]24, [facility] V28) 11/12/2024 DVT (deep venous thrombosis) ([facility] V24, [facility] V28) 11/12/2024 Deep vein thrombosis (DVT) o f both lower extremities ([facility] [place], [facility] V28) 11/12/2024 HLD (hyperlipidemia) 11/12/2024 Type 2 diabetes mellitus, wi thout long-term current use of insulin ([facility] V24, [facility] V28) 11/12/2024 Diverticulitis large intesti ne w/o perforation or abscess w/bleeding 11/12/2024 Assessment & Plan (05/21/2025 5:14 PM EDT): Deemed uncomplicated and treated with Augmentin in October Ongoing symptoms treated with Flagyl and Bactrim in November Repeat CT May -negative for diverticulitis or cause for pain CT angio abdomen pelvis 05/14/25 ? Proctocolitis Assessment & Plan (11/12/2024 4:48 PM EDT): [...] HPV (human papilloma virus) anogenital infection 11/12/2024 Type 2 diabetes mellitus wit h hyperglycemia, without long-term current use of insulin ([facility] V24, [facility] V28) 04/09/2024 Overview (05/19/2025): DM dx: unclear Glucometer: OneTouch Verio Current [...] Diabetes retinal exam: Missed follow-up appt with [facility] in April 2024, recommended patient call to reschedule Patient reports [facility] will not see him due to multiple no-shows 05/24/23 at [facility] No evidence of diabetic retinopathy - the condition is stable but potentially progressive Nuclear sclerosis OU - the patient has been diagnosed with cataract, but vision remains relatively good at this time... no treatment is currently recommended. Epiretinal membrane OU. Mild ERM. Monitor. Presbyopia OU. Good correction with reading glasses. 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 Impression and Plan: Stop Vimpat. Encouraged pt to make behavioral health appt. Abnormal CXR 05/07/2019 Overview (05/19/2025): 05/07/19 - CXR Chest Routine 2 Views, [facility] Diag Img Dep't, 12/26/18: Findings: The cardiomediastinal [...] left side with routine healing 05/07/2019 Overview (05/19/2025): 05/07/19 - - CT Chest Angiography, [facility] Diag Img Dep't, 03/27/19: Findings: [#5.] Bony structures demonstrate left lateral 5th through 8th rib fractures, partially healed and new from October 14, 2018. Mild adjacent pleural thickening. Scarring along the 8th rib. Mild wedge deformity of the T6 vertebral body. - CXR, [facility], 03/05/19, IMPRESSION: 1. No acute cardiopulmonary abnormality. Increased density overlying the anterior left sixth rib likely represents a healing sixth rib fracture, as document in patient's EMR . Kidney lesion 12/10/2018 Overview (05/19/2025): CT Angio Abdomen and pelvis 11/19/18\ IMPRESSION: [...] renal mass protocol MRI in 6-12 months. Varicocele 10/22/2018 Overview (05/19/2025): US 10/22/18 - varicocele right Presence of IVC filter 10/04/2018 Prediabetes 09/13/2017 Hepatitis B core antibody positive 11/28/2016 GERD (gastroesophageal reflux disease) 3 Enlarged prostate 07/22/2013 Seizure (CMS/HCC V24, CMS/HCC V28) 07/22/2013 Encounters Date Type Department Care Team Description 06/09/2025 Telephone Gastroenterology - [place] [address] [facility] [address] [place] [address] Myrtle Gonzalez MD 05/21/2025 1:00 PM EDT Office Visit Gastroenterology - [address] [address] Pablo Yip PA Left sided abdominal pain (Primary Dx); Abnormal CT scan, colon; Rectal pain; BRBPR (bright red blood per rectum); Diverticulitis large intestine w/o perforation or abscess w/bleeding 05/21/2025 Telephone Gastroenterology - [address] [phone] Elvin Ha MD 03/23/2025 Telephone Gastroenterology - [address] [address] Pablo Yip PA from Last 3 Months [...] EST Inhaled Oxygen Concentration - - Weight 82.6 kg (182 lb 3.2 oz) 05/21/2025 12:54 PM EDT Height 175.3 cm (5' 9 ) 05/21/2025 12:54 PM EDT Body Mass Index 26.91 05/21/2025 12:54 PM EDT Plan of Treatment Upcoming Encounters Date Type Department Care Team (Late st Contact Info) Description 07/01/2025 1:00 PM EST Appointment [facility] Endoscopy [address] [place] [address] Myrtle Gonzalez MD [address] [facility] [address] [place] [address] Health Maintenance Due Date Last Done Comments Diabetes: Annual Foot Exam 1983 Diabetes: Annual Retina Eye Exam 1983 Medicare Annual Wellness Visit 08/05/2022 Social Influencers of Health Screening 08/05/2022 RSV Immunization Adult Patients (1 - Risk 50-74 years 1-dose series) 2023 Depression Screening 08/27/2024 COVID-19 Vaccine ( season) 2025 04/03/2022, 09/02/2021, 08/08/2021 Influenza Vaccine (#1) 2025 07/29/2013, 2009 Diabetes: Blood Sugar Control Test (HGBA1C) 12/03/2025 06/04/2025, 12/09/2024, 03/04/2024 Diabetes: Annual Urine Albumin-Creatinine Ratio (uACR) 12/09/2025 12/09/2024, 11/05/2021, 11/05/2021 Diabetes: Annual GFR (Glomerular Filtration Rate) 05/06/2026 05/06/2025, 12/09/2024, 10/29/2024, Additional history exists Hypertension/CHF/CAD Annual BMP Blood Test 05/06/2026 05/06/2025, 12/09/2024, 10/29/2024, Additional history exists Meningococcal ACWY Vaccine (4 - Risk 2-dose series) 01/24/2029 01/25/2024, 11/18/2018, 06/19/2017 Cholesterol Screening (Lipid Panel) 06/04/2030 06/04/2025, 12/09/2024, 12/09/2024, Additional history exists Colorectal Cancer Screening: Colonoscopy [...] on patient's age to complete this topic Goals Goal Patient Goal Type Associated Problems Recent Progress Patient-Stated? Author Autogenera steve Goal Care Plan Autogenerated Problem No Vee Lopez Procedures Procedure Name Priority Date/Time Associated Diagnosis Comments COMPREHENSIVE METABOLIC PANEL STAT 10/13/2024 3:03 PM EST HM COLONOSCOPY Routine 09/20/2021 from Last 3 Months or Most Recently Relevant to Health Maintenance Results * (ABNORMAL) Comprehensive metabolic panel (10/13/2024 3:03 PM EST) Sodium 138 133 - 145 mmol/L LAB CHEMISTRY METHOD 10/13/2024 3:56 PM EST [facility] Potassium 3.9 3.5 - 5.5 mmol/L LAB CHEMISTRY METHOD 10/13/2024 3:56 PM EST [facility] Chloride 107 96 - 110 mmol/L LAB CHEMISTRY METHOD 10/13/2024 3:56 PM [facility] CO2 22 21 - 32 mmol/L LAB CHEMISTRY METHOD 10/13/2024 3:56 PM [facility] Anion Gap 9 3 - 11 LAB CHEMISTRY METHOD 10/13/2024 3:56 PM [facility] Glucose 113(H) 70 - 100 mg/dL LAB CHEMISTRY METHOD 10/13/2024 3:56 PM [facility] BUN 10 5 - 25 mg/dL LAB CHEMISTRY METHOD 10/13/2024 3:56 PM [facility] Creatinine 1.30 0.70 - 1.30 mg/dL LAB CHEMISTRY METHOD 10/13/2024 3:56 PM [facility] eGFR 67 >=60 mL/min/1. 73m2 LAB CHEMISTRY METHOD 10/13/2024 3:56 PM [facility] Comment:Calculation based on the Chronic Kidney Disease Epidemiology Collaboration (CKD-EPI) equation refit without adjustment for race. BUN/Creatinine Ratio 7.7 LAB CHEMISTRY METHOD 10/13/2024 3:56 PM [facility] Calcium 9.5 8.5 - 10.5 mg/dL LAB CHEMISTRY METHOD 10/13/2024 3:56 PM [facility] AST (SGOT) 41 10 - 42 unit/L LAB CHEMISTRY METHOD 10/13/2024 3:56 PM [facility] ALT (SGPT) 48 10 - 60 unit/L LAB CHEMISTRY METHOD 10/13/2024 3:56 PM [facility] Alkaline Phosphatase 146(H) 42 - 121 unit/L LAB CHEMISTRY METHOD 10/13/2024 3:56 PM [facility] Total Protein 8.9(H) 6.0 - 8.0 g/dL LAB CHEMISTRY METHOD 10/13/2024 3:56 PM EST [facility] Albumin 3.8 3.2 - 5.0 g/dL LAB CHEMISTRY METHOD 10/13/2024 3:56 PM EST [facility] Total Bilirubin 0.4 0.0 - 1.4 mg/dL LAB CHEMISTRY METHOD 10/13/2024 3:56 PM EST [facility] Blood Venous blood specimen / Unknown Venipuncture / Unknown 10/13/2024 3:03 PM EST 10/13/2024 3:26 PM EST Devin Mo MD LAB BLOOD ORDERABLES Agueda l Result [facility] [address] [place] [address], * Colonoscopy (09/20/2021) Colonoscopy abnormal, abstracted Anatomical Region Laterality Modality Other Historical Provider HEALTH MAINTENANCE Final Result from Last 3 Months or Most Recently Relevant to Health Maintenance Additional Health Concerns Active Problems Noted Date Diagnosed Date Autogenerated Problem 05/25/2025 Insurance MEDICARE [place]ICA[place] - [place] MED[place] - [place] Advance Directives Documents on File Type Date Recorded Patient Director Instrumentation Expl anation Health Care Decision (hx) 10/12/2018 [...] (hx) 10/12/2018 AD HIDALGO DIRECTIVE Care Teams Prefabricator Relationship Specialty Start Date End Date Thomas Kam PA [address] [place] [address] PCP - General Internal Medicine 03/24/20
--- OUTSIDE RECORDS SUMMARY | 2025-06-16 21:36 | XMS_ITS | Clinical Summary ---
Author Organization [address] [address] Phone Care Team Providers Care Professional Organizer Name Role Phone Pcp, Does Not Have [...] 04/11/2024 04/11/2019, 02/03/2017, 11/28/2016, Additional history exists Influenza vaccine 03/27/2025 07/29/2013, 05/06/2010 Covid-19 vaccine series ( - season) 2025 04/03/2022, 09/02/2021, 08/08/2021 Diabetes screening 04/29/2026 04/29/2023 RSV Immunization (1 [...] - 144 mmol/L 04/29/2023 1:19 PM EDT [facility] DEPARTMENT OF LABORATORY MEDICINE Potassium 3.9 3.3 - 5.3 mmol/L 04/29/2023 1:19 PM EDT [facility] DEPARTMENT OF LABORATORY MEDICINE Chloride 101 98 - 107 mmol/L 04/29/2023 1:19 PM EDT [facility] DEPARTMENT OF LABORATORY MEDICINE CO2 [...] Range Not Established 04/29/2023 1:19 PM EDT [facility] DEPARTMENT OF LABORATORY MEDICINE eGFR (Creatinine) >60 >=60 mL/min/1.73m2 04/29/2023 1:19 PM EDT [facility] DEPARTMENT OF LABORATORY MEDICINE Comment: Values < 60 mL/min/1.73 m2 may indicate CKD if present for more than three months AND creatinine is at steady state. The eGFR provides a rough estimate of kidney function. On 04/11/22 all [facility] Clinical Labs and Epic began using a zmy-[id number]-[id number] formula for estimating GFR called CKD-EPI Creatinine 2020. This equation reports eGFR based on creatinine, patient age, clinical sex, and is standardized to a body surface area of 1.73 m2. For the same creatinine, this new race-free eGFR will be lower than prior reported Black eGFR results and higher than prior Non-Black eGFR results. For further guidance, please refer to the CKD: Adult Datastage Architect Signature pathway. Blood Venipuncture / Unknown 04/29/2023 12:45 PM EDT 04/29/2023 12:52 PM EDT us Kurt Akins MD LAB BLOOD ORDERABLES Final Resu lt [facility] DEPARTMENT OF LABORATORY MEDICINE [address] [place] [address], [facility] [phone] from Last 3 Months or Most Recently Relevant to Health Maintenance Insurance MEDICARE [id number] MEDICAID MEDICARE [id number] MEDICAID MEDICARE [id number] MEDICAID Care Teams Professional Organizer Relationship Specialty Start Date End Date Pcp, Does Not Have A PCP - General 04/29/23
--- OUTSIDE RECORDS SUMMARY | 2025-06-16 21:36 | XMS_ITS | Encounter Summary ---
Author Organization [facility] Address [address] [place] [address] Care Team Providers Care Bone Puller Name Role Phone Thomas Kam Primary Care Provider [phone] Encounter Details Date Type Department Care Team ([facility] st Contact Info) Description 06/09/2025 Telephone Gastroenterology - [place] [address] [facility] [address] [place] [phone] Myrtle Gonzalez MD [address] [facility] [address] [place] [address] Social History Tobacco Use Types Packs/Day Years Used Date Smoking Tobacco: Former Cigarettes Alcohol Use Standard Drinks/Week Comments Never 0 (1 standard drink = 0.6 oz pur e alcohol) Sex and Gender Information Value Date Recorded Sex Assigned at Male 10/13/2024 3:12 PM EST Legal Sex Male 6:15 PM EST Gender Identity Male 10/13/2024 3:12 PM EST Sexual Orientation Lesbian or Chaidez 01/13/2025 5: 56 PM EDT documented as of this encounter Functional Status * Are you deaf or do you have serious difficulty hearing? Answer Date of Assessment Author No 10/13/2024 3:13 PM EST Bradley Rivas RN * Are you blind or do you have serious difficulty seeing, even when wearing glasses? Answer Date of Assessment Author No 10/13/2024 3:13 PM EST Bradley Rivas RN * Do you have serious difficulty walking or climbing stairs? Answer Date of Assessment Author No 10/13/2024 3:13 PM Bradley Cabrera RN * Do you have serious difficulty dressing or bathing? Answer Date of Assessment Author No 10/13/2024 3:13 PM Bradley Cabrera RN * Because of a physical, mental, or emotional condition, do you have serious difficulty doing errandsalone such as visiting the doctor? Answer Date of Assessment Author No 10/13/2024 3:13 PM Bradley Cabrera RN documented as of this encounter Mental Status * Because of a physical, mental, or emotional condition, do you have serious difficulty concentrating, remembering, or making decisions? (5 years old or older) Answer Entry Date Author No 10/13/2024 3:13 PM Bradley Cabrera RN documented in this encounter Progress Notes * Denice Sandoval - 06/09/2025 11:04 AM EDT Cindy from [facility] is calling to verify how long pt should be off warfarin. She can be reached at [phone] documented in this encounter Plan of Treatment Upcoming Encounters Date Type Department Care Team (Late st Contact Info) Description 07/01/2025 1:00 PM EST Appointment [facility] Endoscopy [address] [place] [phone] Myrtle Gonzalez MD [address] [facility] [address] [place] [address] documented as of this encounter Goals Goal Patient Goal Type Associated Problems Recent Progress Patient-Stated? Author Autogenera steve Goal Care Plan Autogenerated Problem No Vee Lopez documented as of this encounter Visit Diagnoses Not on filedocumented in this encounter Additional Health Concerns Active Problems Noted Date Diagnosed Date Autogenerated Problem 05/25/2025 documented as of this encounter Care Teams Bone Puller Relationship Specialty Start Date End Date Thomas Kam PA [address] [place] [address] PCP - General Internal Medicine 03/24/20 documented as of this encounter
--- OUTSIDE RECORDS SUMMARY | 2025-06-16 21:36 | XMS_ITS | Encounter Summary ---
Author Organization [facility] Address [address] [place] [address] Phone Care Team Providers Care Glove Brusher Name Role Phone Pcp, Unknown Primary Care Provider Unavailabl e Encounter Details Date Type Department Care Team ([facility] st Contact Info) Description 06/08/2025 Procedure Pass [facility], Ct Scan - [address] [address] Social History Tobacco Use Types Packs/Day Years [...] as food, clothing, or medical care? No 06/08/2025 In the past 12 months have y ou been in a relationship with a person who hurts, threatens, or tries to control you? No 06/08/2025 Are you denied basic needs s uch as food, clothing, or medical care? No 06/08/2025 In the past 12 months have y ou been in a relationship with a person who hurts, threatens, or tries to control you? No 06/08/2025 Sex and Gender Information Value Date Recorded Sex Assigned at Male 05/14/2025 10:28 AM EDT Legal Sex Male 9:34 AM EDT Gender Identity Male 05/14/2025 10:28 AM EDT Sexual Orientation Lesbian or Chaidez 05/14/2025 10 :28 AM EDT documented as of this encounter Functional Status * Calculated C-SSRS Risk Score (Lifetime/Recent) Answer Date of Assessment Author No Risk Indicated 06/08/2025 1:10 PM EDT Umu Bai, RN * [place] Suicide Severity Rating Scale (Screener/Recent Self-Report) Question Answer Date of Assessment Author 1. Wish to be (Past 1 Month) No 025 1:10 PM EDT Umu Merino RN 2. Non-Specific Active Suici rylan Thoughts (Past 1 Month) No 06/08/2025 1:10 PM EDT Umu Merino, RN 6. Suicidal Behavior (Lifetime) No 1:10 PM EDT Umu Merino, RN documented as of this encounter Plan of Treatment Not on file documented as of this encounter Visit Diagnoses Not on filedocumented in this encounter Additional Health Concerns Infection Onset Date Last Indicated Resolved Time CoV-Risk 06/08/2025 06/08/2025 documented as of this encounter Care Teams Glove Brusher Relationship Specialty Start Date End Date Pcp, Unknown PCP - General 06/08/25 documented as of this encounter Additional Source Comments The information contained in this document represents components of the legal health record. It is not the complete legal health record.[facility]
--- OUTSIDE RECORDS SUMMARY | 2025-06-16 21:36 | XMS_ITS | Encounter Summary ---
Author Organization [facility] Address [address] [place] [address] Phone Care Team Providers Care Telephone Worker Name Role Phone Pcp, Unknown Primary Care Provider Unavailabl e Encounter Details Date Type Department Care Team ([facility] st Contact Info) Description 06/08/2025 Procedure Pass [facility], Ct Scan - [address] [address] Social History Tobacco Use Types Packs/Day Years [...] 1:10 PM EDT Umu Bai, RN * [place] Suicide Severity Rating Scale (Screener/Recent Self-Report) Question [...] documented as of this encounter Care Teams Telephone Worker Relationship Specialty Start Date End Date Pcp, Unknown PCP - General 06/08/25 documented as of this encounter Additional Source Comments The information contained in this document represents components of the legal health record. It is not the complete legal health record.[facility]
--- OUTSIDE RECORDS SUMMARY | 2025-06-16 21:36 | XMS_ITS | Clinical Summary ---
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 Role Phone Pcp, Unknown Primary Care Provider Unavailabl e Allergies Active Allergy Reactions Criticality Noted Date Comments Acetaminophen Hives,Itching,Unknow n High 02/11/2022 Other reaction(s): Unknown/Patient and Family Unable to Define Dexamethasone 06/08/2025 Other Reaction(s): Itching of male genital organs itching of face and rectum Fish Containing Products 10/02/2018 Fish Derived Unknown Medium 02/11/2022 Flu Vaccine [id number](6mos Up) 05/14/2025 Influenza Virus Vaccines Unknown Medium 02/11/2022 Hx of Guillain - [employer] Ketorolac Rash Low 10/13/2024 Lamotrigine 05/14/2025 Shellfish Containing Products 05/14/2025 Oxycodone Itching,Unknown Medium 11/30/2018 Other Reaction(s): itch, Unspecified Oxycodone Other reaction(s): Unknown/Patient and Family Unable to Define Oxycodone-Acetaminophen 05/14/2025 Carbamazepine 05/14/2025 Tramadol 05/14/2025 Medications No known medications Encounters Date Type Department Care Team Description 06/08/2025 3:16 PM EDT - 06/08/2025 11:35 PM EDT Emergency [facility] [address] [place] [address] Mark Garcia MD Discharge Disposition: Home or Self Care 06/08/[address] [address] 06/08/[address] [address] 05/16/2025 9:30 AM EDT - 05/16/2025 11:59 PM EDT Hospital Encounter [facility] [address] [place] [id number] Denise Weiner PA-C Discharge Disposition: Home or Self Care 05/16/2025 Transcribe Orders [facility] [address] [place] [id number] Denise Weiner PA-C Diarrhea, unspecified type (Primary Dx) 05/16/2025 Transcribe Orders [facility] [address] [place] [address] Denise Weiner PA-C Diarrhea, unspecified type (Primary Dx) 05/15/2025 9:13 AM EDT - 05/15/2025 11:59 PM EDT Hospital Encounter [facility] Specimen Processing [address] [place] [address] Denise Weiner PA-C Discharge Disposition: Home or Self Care 05/14/2025 9:56 AM EDT - 05/14/2025 6:00 PM EDT Emergency [facility] Emergency [address] [place] [id number] Mark Garcia MD Steinberg, Xavi Elizabeth MD Discharge Disposition: Home or Self Care 05/14/[address] [address] 05/14/[address] [address] from Last 3 Months Social History Tobacco [...] Sign Reading Time Taken Comments Blood Pressure 104/69 06/08/2025 11:26 PM EDT Pulse 78 06/08/2025 11:26 PM EDT Temperature 36.4 C (97.5 F) 06/08/2025 11:26 PM EDT Respiratory Rate 16 06/08/2025 11:26 PM EDT Oxygen Saturation 96% 06/08/2025 11:26 PM EDT Inhaled Oxygen Concentration - - Weight 79.8 kg (176 lb) 06/08/2025 1:14 PM EDT Height 175.3 cm (5' 9 ) 06/08/2025 1:14 PM EDT Body Mass Index 25.99 06/08/2025 1:14 PM EDT Plan of Treatment Health Maintenance Due Date Last Done Comments DEPRESSION SCREENING 1985 SMOKING Hx and SMOKELESS TOBACCO SCREENING 1986 HIV ONE-TIME SCREENING (18-65 YEARS) 1991 COLOGUARD 2018 COLONOSCOPY 2018 COLORECTAL CANCER SCREENING 2018 FIT TEST 2018 FOBT 2018 SIGMOIDOSCOPY 2018 VIRTUAL COLONOSCOPY 2018 PNEUMOCOCCAL VACCINES (50+ years) (1 of 1 - PCV) 2023 ZOSTER VACCINES (1 of 2) 2023 COVID-19 VACCINE (1 - 2024- season) 2025 SCREENING FOR DIABETES 06/04/2028 06/04/2025, 2024 LIPID PANEL 06/04/2030 06/04/2025, 1004/2025, 12/09/2024, Additional history exists Adult Td,Tdap Booster 01/24/2034 01/25/2024, 014 RSV VACCINE (1 - 1-dose 75+ series) 2048 HEPATITIS C SCREENING Completed 12/09/2024 , 01/25/2024, [...] Procedure Name Priority Date/Time Associated Diagnosis Comments LACTIC ACID (LACTATE) STAT 06/08/2025 8:[address] ANGIO ABDOMINAL AORTA AND BILATERAL LOWER EXTREMITY RUNOFF WITH AND WITHOUT CONTRAST Routine 06/08/2025 8:[address] CHEST PULMONARY ANGIOGRAM (ACUTE) Routine 06/08/2025 8:03 PM EDT US LOWER EXTREMITY VEINS DUPLEX COMPLETE (BILATERAL) Routine 06/08/2025 7:00 PM EDT Left leg pain Right leg pain PT-INR STAT 06/08/2025 5:36 PM EDT COVID-19 RT-PCR/INFLUENZA A & B RSV Routine 06/08/2025 4:00 PM EDT COVID PANDEMIC RESPIRATORY VIRAL ORDER (PRO) STAT 06/08/2025 4:00 PM EDT URINE SEDIMENT STAT 06/08/2025 3:50 PM EDT URINALYSIS W/REFLEX URINE CULTURE STAT 06/08/2025 3:50 PM EDT TROPONIN STAT 06/08/2025 3:17 PM EDT TROPONIN STAT 06/08/2025 2:43 PM EDT LIPASE STAT 06/08/2025 1:55 PM EDT LFTS (HEPATIC PANEL) STAT 06/08/2025 1:55 PM EDT BASIC METABOLIC PANEL STAT 06/08/2025 1:55 PM EDT CBC AND DIFFERENTIAL STAT 06/08/2025 1:55 PM EDT ECG 12-LEAD STAT 06/08/2025 1:13 PM EDT GIARDIA CRYPTOSPORIDIUM SCREEN Routine 05/16/2025 10:21 AM EDT Diarrhea, unspecified type C. DIFFICILE PCR Routine 05/15/2025 6:00 PM EDT Diarrhea, unspecified type STOOL CULTURE Routine 05/15/2025 6:00 PM EDT OVA AND PARASITES, STOOL Routine 05/15/2025 6:00 PM EDT TROPONIN STAT [...] EDT from Last 3 Months Results * Lactate (06/08/2025 8:29 PM EDT) LACTATE 1.60 0.50 - 2.20 mmol/L [facility] Blood 06/08/2025 8:29 PM EDT 06/08/2025 8:32 PM EDT us Kailey De La Garza PA-C LAB BLOOD ORDERABLES Fi nal Result [address] [id number] * CT ANGIO ABDOMINAL AORTA AND BILATERAL LOWER EXTREMITY RUNOFF WITH AND WITHOUT CONTRAST (58:03 PM EDT) Anatomical Region Laterality Modality Abdominal Vasculature, Foot Right, Foot Left, Ankle Right, Ankle Left, Leg Right, Leg Left, Knee Bilateral, Knee Right, Knee Left, Thigh Right, Thigh Left, Hip Bilateral, Hip Right, Hip Left Computed Sim graphy 06/08/2025 8:49 PM EDT Impressions 06/08/2025 9:55 PM EDT 1. No acute dissection, aneurysm or vessel occlusion. Postsurgical changes from infrarenal aortobiiliac endovascular graft repair, without complications. 2. 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 Two vessel run-off is present with patent SRAAN and HEALTH CARE LIAISON. Proximal peroneal artery is patent with nonopacification of mid segment. Reconstitution of the distal segment on delayed phase. 3. Left: 3 vessel runoff is present. ATTESTATION: I, Cosme Mascorro as teaching physician, have reviewed the images for this case and if necessary edited the report originally created by Lauri Delcid. Narrative 06/08/2025 9:[address] ANGIO ABDOMINAL AORTA AND BILATERAL LOWER EXTREMITY RUNOFF WITH AND WITHOUT CONTRAST Referring clinician's provided indication for this examination in Epic: * Claudication or leg ischemia, prior revasc TECHNIQUE: Multidetector-row CTA of the abdomen and pelvis with bilateral lower extremity runoff was performed with intravenous contrast using tailored dose modulation techniques. Images were reconstructed in the axial, coronal, and sagittal planes, including angiographic image post-processing. COMPARISON: CT ANGIO CHEST WITH AND WITHOUT CONTRAST VASCULAR FINDINGS: No active extravasation. No aortic aneurysm. There is no aortic dissection, intramural hematoma, or occlusion. Postsurgical changes from infrarenal aortobiiliac endovascular graft repair. The celiac axis, SMA and RAMANA are patent. Renal arteries are patent bilaterally. Aorto-iliac system is patent without significant stenosis bilaterally. No intraluminal contrast extravasation to indicate active GI bleeding. There is no venous thrombosis. RIGHT: The common femoral, SFA, profunda femoral are patent. The proximal popliteal artery is occluded with distal reconstitution. Patent femoral tibial arterial bypass graft. Two vessel run-off is present with patent SARAN and HEALTH CARE LIAISON. Proximal peroneal artery is patent with nonopacification of mid segment. Reconstitution of the distal segment on delayed phase. LEFT: The common femoral, SFA profunda femoral, and popliteal arteries are patent. Three vessel run-off is present. NON VASCULAR FINDINGS: Lung bases: CT PE from the same day is reported separately. Liver: No focal lesions. Biliary: Status post cholecystectomy. No biliary ductal dilatation. Spleen: No splenomegaly. Coarse calcified granulomas. Pancreas: Atrophic. No masses, ductal dilation or peripancreatic fat stranding. Adrenal Glands: No nodules. Kidneys/Ureters: No stones or hydronephrosis. Scarring at the right kidney lower pole, which may be related to prior infection. Bowel: Postsurgical changes from prior sigmoid resection with intact anastomosis in the low pelvis. No bowel obstruction or perforation. Prior appendectomy. Peritoneum/Retroperitoneum: No pneumoperitoneum or free fluid. Lymph Nodes: No lymphadenopathy. Pelvic Organs/Bladder: No significant abnormality. Bones/Soft Tissues: Postsurgical changes of the left lower extremity. Procedure Note Cosme Mascorro MBBS - 06/08/2025 CT ANGIO ABDOMINAL AORTA AND BILATERAL LOWER EXTREMITY RUNOFF WITH ANDWITHOUT CONTRAST Referring clinician's provided indication for this examination in Epic: *Claudication or leg ischemia, prior revasc TECHNIQUE: Multidetector-row CTA of the abdomen and pelvis with bilaterallower extremity runoff was performed with intravenous contrast usingtailored dose modulation techniques. Images were reconstructed in theaxial, coronal, and sagittal planes, including angiographic imagepost-processing. COMPARISON: CT ANGIO CHEST WITH AND WITHOUT CONTRAST VASCULAR FINDINGS: No active extravasation. No aortic aneurysm. There is no aortic dissection, intramural hematoma, or occlusion.Postsurgical changes from infrarenal aortobiiliac endovascular graftrepair. The celiac axis, SMA and RAMANA are patent. Renal arteries are patent bilaterally. Aorto-iliac system is patent without significant stenosis bilaterally. No intraluminal contrast extravasation to indicate active GI bleeding. There is no venous thrombosis. RIGHT: The common femoral, SFA, profunda femoral are patent. The proximalpopliteal artery is occluded with distal reconstitution. Patent femoraltibial arterial bypass graft. Two vessel run-off is present with patent SARAN and HEALTH CARE LIAISON. Proximal peronealartery is patent with nonopacification of mid segment. Reconstitution ofthe distal segment on delayed phase. LEFT: The common femoral, SFA profunda femoral, and popliteal arteries arepatent. Three vessel run-off is present. NON VASCULAR FINDINGS: Lung bases: CT PE from the same day is reported separately. Liver: No focal lesions. Biliary: Status post cholecystectomy. No biliary ductal dilatation. Spleen: No splenomegaly. Coarse calcified granulomas. Pancreas: Atrophic. No masses, ductal dilation or peripancreatic fatstranding. Adrenal Glands: No nodules. Kidneys/Ureters: No stones or hydronephrosis. Scarring at the right kidneylower pole, which may be related to prior infection. Bowel: Postsurgical changes from prior sigmoid resection with intactanastomosis in the low pelvis. No bowel obstruction or perforation. Priorappendectomy. Peritoneum/Retroperitoneum: No pneumoperitoneum or free fluid. Lymph Nodes: No lymphadenopathy. Pelvic Organs/Bladder: No significant abnormality. Bones/Soft Tissues: Postsurgical changes of the left lower extremity. IMPRESSION: 1. No acute dissection, aneurysm or vessel occlusion. Postsurgicalchanges from infrarenal aortobiiliac endovascular graft repair, withoutcomplications. 2. Right: Chronically occluded proximal right popliteal artery withpatent right femoral tibial arterial bypass graft. Two vessel run-off ispresent with patent SARAN and HEALTH CARE LIAISON. Proximal peroneal artery is patent withnonopacification of mid segment. Reconstitution of the distal segment ondelayed phase. 3. Left: 3 vessel runoff is present. ATTESTATION: Cosme Vaughan as teaching physician, have reviewed theimages for this case and if necessary edited the report originally createdby Lauri Delcid. us Kailey De La Garza PA-C IMG CT ABD/PELVIS Final Result * CT CHEST PULMONARY ANGIOGRAM (ACUTE) (06/08/2025 8:03 PM EDT) Anatomical Region Laterality Modality Chest, Thoracic Vasculature Comp uted Tomography 06/08/2025 9:06 PM EDT Impressions 06/08/2025 9:47 PM EDT No pulmonary embolism or alternative CT explanation for symptoms. ATTESTATION: Samra Vaughan as teaching physician, have reviewed the images for this case and if necessary edited the report originally created by Olga Lidia Natino. Narrative 06/08/2025 9:[address] CHEST PULMONARY ANGIOGRAM (ACUTE) Referring clinician's provided indication for this examination in Epic: * PE suspected, high prob TECHNIQUE: Multidetector CT pulmonary angiography was performed after administration of intravenous contrast using tailored dose modulation techniques. 3D angiographic postprocessing techniques were acquired in the form of axial maximum intensity projection images (MIPS). COMPARISON: CT ANGIO CHEST WITH AND WITHOUT CONTRAST FINDINGS: Pulmonary Angiogram: The pulmonary arteries are well opacified. There is no pulmonary embolus. Devices/Tubes/Lines: None. Lungs: No suspicious pulmonary nodules or consolidation. Scattered calcified granulomas. The central airways are clear. Pleura: No pleural effusion or pneumothorax. Mediastinum: Heart size is normal. No pericardial effusion. Mild amount of coronary calcifications. No thyroid nodules meeting size criteria for follow up. Lymph Nodes: No enlarged supraclavicular, axillary, mediastinal, or hilar lymph nodes. Upper Abdomen: Cholecystectomy. Calcified splenic granuloma. Chest Wall: No chest wall mass. Bones: Degenerative changes of the spine. Unchanged chronic appearing mild compression deformity of the T6 superior endplate. Procedure Note Samra Daniel MBBS - 06/08/2025 CT CHEST PULMONARY ANGIOGRAM (ACUTE) Referring clinician's provided indication for this examination in [facility]: *PE suspected, high prob TECHNIQUE: Multidetector CT pulmonary angiography was performed afteradministration of intravenous contrast using tailored dose modulationtechniques. 3D angiographic postprocessing techniques were acquired in theform of axial maximum intensity projection images (MIPS). COMPARISON: CT ANGIO CHEST WITH AND WITHOUT CONTRAST FINDINGS: Pulmonary Angiogram: The pulmonary arteries are well opacified. There is no pulmonaryembolus. Devices/Tubes/Lines: None. Lungs: No suspicious pulmonary nodules or consolidation. Scatteredcalcified granulomas. The central airways are clear. Pleura: No pleural effusion or pneumothorax. Mediastinum: Heart size is normal. No pericardial effusion. Mild amount ofcoronary calcifications. No thyroid nodules meeting size criteria forfollow up. Lymph Nodes: No enlarged supraclavicular, axillary, mediastinal, or hilarlymph nodes. Upper Abdomen: Cholecystectomy. Calcified splenic granuloma. Chest Wall: No chest wall mass. Bones: Degenerative changes of the spine. Unchanged chronic appearing mildcompression deformity of the T6 superior endplate. IMPRESSION: No pulmonary embolism or alternative CT explanation for symptoms. ATTESTATION: I, Samra Daniel as teaching physician, have reviewedthe images for this case and if necessary edited the report originallycreated by Olga Lidia Nation. Kailey De La Garza PA-C IMG CT CHEST Final R esult * US Lower Extremity Veins Duplex Complete (Bilateral) (06/08/2025 7:00 PM EDT) Anatomical Region Laterality Modality Ultrasound 06/08/2025 8:50 PM EDT Impressions 06/08/2025 8:54 PM EDT No deep vein thrombosis in the visualized veins of either lower extremity. Narrative 06/08/2025 8:54 PM EDT US LOWER EXTREMITY VEINS DUPLEX COMPLETE (BILATERAL) Referring clinician's provided indication for this examination in [facility]: Left Leg Pain; Right Leg Pain TECHNIQUE: Lower extremity venous ultrasound with color and spectral Doppler. COMPARISON: US LOWER EXTREMITY VEINS DUPLEX COMPLETE (BILATERAL) FINDINGS: Right lower extremity Common femoral vein: Normal compressibility and flow characteristics. Femoral vein: Normal compressibility and flow characteristics. Proximal profunda femoral vein: Normal compressibility. Popliteal vein: Normal compressibility and flow characteristics. Posterior tibial veins: Normal compressibility. Peroneal veins: Normal compressibility. Gastrocnemius veins: Normal compressibility. Great saphenous vein: Normal compressibility at the saphenofemoral junction. 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 Left lower extremity Common femoral vein: Normal compressibility and flow characteristics. Femoral vein: Normal compressibility and flow characteristics. Proximal profunda femoral vein: Normal compressibility. Popliteal vein: Normal compressibility and flow characteristics. Posterior tibial veins: Normal compressibility. Peroneal veins: Normal compressibility. Gastrocnemius veins: Normal compressibility. Great saphenous vein: Normal compressibility at the saphenofemoral junction. Other: None. Procedure Note Guy Rider MD - 06/08/2025 US LOWER EXTREMITY VEINS DUPLEX COMPLETE (BILATERAL) Referring clinician's provided indication for this examination in Epic:Left Leg Pain; Right Leg Pain TECHNIQUE: Lower extremity venous ultrasound with color and spectralDoppler. COMPARISON: US LOWER EXTREMITY VEINS DUPLEX COMPLETE (BILATERAL) FINDINGS: Right lower extremity Common femoral vein: Normal compressibility and flow characteristics. Femoral vein: Normal compressibility and flow characteristics. Proximal profunda femoral vein: Normal compressibility. Popliteal vein: Normal compressibility and flow characteristics. Posterior tibial veins: Normal compressibility. Peroneal veins: Normal compressibility. Gastrocnemius veins: Normal compressibility. Great saphenous vein: Normal compressibility at the saphenofemoraljunction. 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 Left lower extremity Common femoral vein: Normal compressibility and flow characteristics. Femoral vein: Normal compressibility and flow characteristics. Proximal profunda femoral vein: Normal compressibility. Popliteal vein: Normal compressibility and flow characteristics. Posterior tibial veins: Normal compressibility. Peroneal veins: Normal compressibility. Gastrocnemius veins: Normal compressibility. Great saphenous vein: Normal compressibility at the saphenofemoraljunction. Other: None. IMPRESSION: No deep vein thrombosis in the visualized veins of either lowerextremity. us Kailey De La Garza PA-C CV US VASCULAR Final R esult * (ABNORMAL) PT-INR (06/08/2025 5:36 PM EDT) Only the most recent of2 resultswithin the time period is included. PT 27.9(H) 10.2 - 12.9 sec [facility] INR 2.2(H) 0.9 - 1.1 [facility] Comment:Therapeutic range fo r oral Vitamin K antagonists: 2.0-3.5 Blood 06/08/2025 5:36 PM EDT 06/08/2025 5:51 PM EDT us Kailey De La Garza PA-C LAB BLOOD ORDERABLES Fi nal Result Performing Organization Address [facility] Co de Phone Number [address] [address] * SARS-CoV-2, Influenza A/B, PCR (06/08/2025 4:00 PM EDT) Specimen Source/Descriptio n NASOPHARYNGEAL SWAB [facility] Influenza A PCR Not Detected Not Detected [facility] Influenza B PCR Not Detected Not Detected [facility] SARS-CoV 2 (COVID-19) PCR Not Detected Not Detected [facility] Comment: SARS-CoV-2 not detected Negative results do not preclude SARS-CoV-2 infection and should not be used as the sole basis for patient management decisions. Negative results must be combined with clinical observations, patient history, and epidemiological information. 06/08/2025 4:00 PM EDT 06/08/2025 4:21 PM EDT us Kailey De La Garza PA-C BODY FLUIDS AND STOOLS ORDERABLES Final Result Performing Organization Address [facility] Co de Phone Number [address] [phone] * COVID Pandemic Respiratory Viral Order (PRO) (06/08/2025 4:00 PM EDT) Test Ordered Rapid COVID has been ordered [facility] Specimen Source/Descri ption CREDITED: CANCELLED BY PROVIDER. Add on flu received. Reordered as Covid and flu testing. [facility] SARS-CoV 2 (COVID-19) PCR CREDITED: CANCELLED BY PROVIDER. Add on flu received. Reordered as Covid and flu testing. Not Detected [facility] Other (Nasopharyngeal swab) 06/08/2025 4:00 PM EDT 06/08/2025 4:18 PM EDT us Kailey De La Garza PA-C BODY FLUIDS AND STOOLS ORDERABLES Final Result Performing Organization Address City/[facility]/ZIP Co de Phone Number [address] [address] * (ABNORMAL) Urinalysis w/reflex Urine Culture (06/08/2025 3:50 PM EDT) Only the most recent of2 resultswithin the time period is included. COLOR Yellow Yellow [facility] CLARITY Clear [facility] GLUCOSE 1+(A) Negative [facility] BILI Negative Negative [facility] KETONES Negative Negative [facility] SPECIFIC GRAVITY >1.030 1.005 - 1.030 [facility] BLOOD Negative Negative [facility] PH 6.0 5.0 - 8.0 [facility] Protein-UA 1+(A) Negative [facility] NITRITE Negative Negative [facility] Leukocyte esterase, ur Negative Negative [facility] Urine (Urine) 06/08/2025 3:5 0 PM EDT 06/08/2025 4:25 PM EDT us Stalin Lopez MD URINE ORDERABLES Final Result Performing Organization Address City/[facility]/ZIP Co de Phone Number [address] [address] * (ABNORMAL) Urine sediment (06/08/2025 3:50 PM EDT) WBC 0-4(A) NONE SEEN /hpf [facility] RBC 0-2(A) NONE SEEN /hpf [facility] URINE EPITHELIAL 21-49(A) NONE SEEN [facility] MUCUS 2+(A) NONE SEEN /hpf [facility] BACTERIA NONE SEEN NONE SEEN /hpf [facility] CAST 0-2 [facility] Comment:HYALINE CAST 06/08/2025 3:50 PM EDT 06/08/2025 4:25 PM EDT us Stalin Lopez MD URINE ORDERABLES Final Result Performing Organization Address City/[facility]/ZIP Co de Phone Number [address] [address] * Troponin (06/08/2025 3:17 PM EDT) Only the most recent of4 resultswithin the time period is included. Pathologist [facility] Troponin-T, HS Gen5 <6 0 - 14 ng/L [facility] Blood 06/08/2025 3:17 PM EDT 06/08/2025 3:35 PM EDT us Stalin Lopez MD LAB BLOOD ORDERABLES Final Resu lt Performing Organization Address City/[facility]/ZIP Co de Phone Number [address] [address] * (ABNORMAL) LFTs (hepatic panel) (06/08/2025 1:55 PM EDT) Only the most recent of2 resultswithin the time period is included. ALKALINE PHOSPHATASE 126(H) 39 - 117 U/L [facility] TOTAL BILIRUBIN 0.5 0.0 - 1.2 mg/dL [facility] DIRECT BILIRUBIN 0.1 0.0 - 0.2 mg/dL [facility] Bilirubin (Indirect) NOT CALCULATED 0 - 1.5 mg/dL [facility] AST 26 0 - 37 U/L [facility] ALT 32 0 - 40 U/L [facility] TOTAL PROTEIN 8.6(H) 6.5 - 8.0 g/dL [facility] ALBUMIN 4.0 3.9 - 4.8 g/dL [facility] GLOBULIN 4.6 1 - 4.8 g/dL [facility] A/G Ratio 0.87(L) 1.00 - 4.80 RATIO [facility] Blood 06/08/2025 1:55 PM EDT 06/08/2025 2:12 PM EDT us Stalin Lopez MD LAB BLOOD ORDERABLES Final Resu lt [address] [address] * (ABNORMAL) CBC and differential (06/08/2025 1:55 PM EDT) Only the most recent of2 resultswithin the time period is included. WBC 4.29 4.00 - 11.00 K/uL [facility] RBC 4.66 4.50 - 5.90 M/uL [facility] HGB 13.8 13.5 - 17.5 g/dL [facility] HCT 42.7 41.0 - 53.0 % [facility] PLT 163 150 - 450 K/uL [facility] MCV 91.6 80.0 - 100.0 fL [facility] MCH 29.6 27.0 - 31.0 pg [facility] MCHC 32.3 32.0 - 36.0 g/dL [facility] RDW 15.2(H) 11.5 - 14.5 % [facility] MPV 9.5 8.4 - 12.0 fL [facility] NRBC 0.00 0.00 /100 WBCs [facility] ABSOLUTE NRBC 0.00 0.00 K/uL [facility] DIFF METHOD Auto [facility] NEUTS 59.2 48.0 - 76.0 % [facility] LYMPHS 28.2 18.0 - 41.0 % [facility] MONOS 11.2(H) 4.0 - 11.0 % [facility] EOS 0.7 0.0 - 5.0 % [facility] BASOS 0.5 0.0 - 1.5 % [facility] Granulocytes, immature (%) 0.2 0.0 - 0.9 % [facility] ABSOLUTE NEUTS 2.54 1.92 - 7.60 K/uL [facility] ABSOLUTE LYMPHS 1.21 0.72 - 4.10 K/uL [facility] ABSOLUTE MONOS 0.48 0.16 - 1.10 K/uL [facility] ABSOLUTE EOS 0.03 0.00 - 0.50 K/uL [facility] ABSOLUTE BASOS 0.02 0.00 - 0.15 K/uL [facility] Granulocytes, immature 0.01 0.00 - 0.09 K/uL [facility] Blood 06/08/2025 1:55 PM EDT 06/08/2025 2:12 PM EDT Stalin Lopez MD LAB BLOOD ORDERABLES Final Resu lt Performing Organization Address City/[facility]/ZIP Co de Phone Number [address] [address] * (ABNORMAL) Lipase (06/08/2025 1:55 PM EDT) Only the most recent of2 resultswithin the time period is included. LIPASE 77(H) 16 - 63 U/L [facility] Blood 06/08/2025 1:55 PM EDT 06/08/2025 2:12 PM EDT us Stalin Lopez MD LAB BLOOD ORDERABLES Final Resu lt Performing Organization Address City/[facility]/ZIP Co de Phone Number [address] [address] * (ABNORMAL) Basic metabolic panel (06/08/2025 1:55 PM EDT) Only the most recent of2 resultswithin the time period is included. SODIUM 136 133 - 146 mmol/L [facility] CHLORIDE 101 96 - 108 mmol/L [facility] POTASSIUM 4.2 3.3 - 5.1 mmol/L [facility] CO2 24 21 - 35 mmol/L [facility] BUN 12 6 - 19 mg/dL [facility] CREATININE 1.00 0.5 - 1.5 mg/dL [facility] GLUCOSE 152(H) 70 - 99 mg/dL [facility] CALCIUM 9.3 8.4 - 10.3 mg/dL [facility] EGFR 91 >59 mL/min/1.7 3m2 [facility] Comment:Estimated glomerular filtration rate calculated using the CKD-EPI refit equation. ANION GAP 15 10 - 20 mmol/L [facility] Blood 06/08/2025 1:55 PM EDT 06/08/2025 2:12 PM EDT us Stalin Lopez MD LAB BLOOD ORDERABLES Final Resu lt Performing Organization Address City/[facility]/ZIP Co de Phone Number [address] [address] * ECG 12-LEAD (06/08/2025 1:13 PM EDT) Only the most recent of2 resultswithin the time period is included. Ventricular Rate EKG/MIN 83 BPM [facility] Atrial Rate 83 BPM [facility] VA Interval 162 ms [facility] QRS Duration 88 ms [facility] QT Interval 398 ms [facility] QTC Interval 467 ms [facility] P [place] 53 degrees [facility] R Wave [place] 48 degrees [facility] T Wave [place] 24 degrees [facility] 06/08/2025 1:13 PM EDT 06/09/2025 7:49 AM EDT Narrative [facility] - 06/09/2025 7:49 AM EDT Normal sinus rhythm Normal ECG When compared with ECG of 14-May-2025 12:00, No significant change was found Confirmed by Zac Cates ([id number]) on 06/09/2025 7:49:12 AM us Stalin Lopez MD ECG ORDERABLES Final Result Performing Organization Address City/[facility]/ZIP Co de Phone Number [email or web address] * Giardia and cryptosporidium screen (05/16/2025 10:21 AM EDT) GIARDIA AG Negative Negative [facility] Cryptosporidiu m, stool Negative Negative [facility] Stool (Stool) 05/16/2025 10: 21 AM EDT 05/16/2025 1:09 PM EDT Denise Weiner PA-C NON CULTURE MICROBIOLOGY Fi nal Result Performing Organization Address [facility] Co de Phone Number [address] [address] * C. DIFFICILE PCR (05/15/2025 6:00 PM EDT) Pathologist [facility] C.DIFFICILE PCR Negative Negative [facility] C.DIFFICILE STRAIN PRESUMPTIVE NEGATIVE PRESUMPTIVE NEGATIVE [facility] Comment:Detection of 027/NAP 1/BI strains of C.difficile is presumptive and is solely for epidemiological purposes and is not intended to guide or monitor treatment of infections. Stool (Stool) 05/15/2025 6:0 0 PM EDT 05/16/2025 10:14 AM EDT Denise Weiner PA-C MICROBIOLOGY - GENERAL ORDE RABLES Final Result Performing Organization Address [facility] Co de Phone Number [address] [address] * Ova and parasites, stool (05/15/2025 6:00 PM EDT) Parasitic exam FINAL 5 1506 [facility] DPT OF LAB MED AND PAT+ Comment: (NOTE) SOURCE: STOOL, STLP OVA AND PARASITE, MICROSCOPY, F FINAL No parasites seen. Cryptosporidium, Cyclospora, and microsporidia are not readily detected by this method. Single negative specimen does not rule out parasitic infection. Stool (Stool) 05/15/2025 6:0 0 PM EDT 05/16/2025 10:11 AM EDT us Denise Weiner PA-C MICROBIOLOGY - GENERAL ORDE NATALY Final Result [facility] DPT OF LAB MED AND PAT+ [address] [place] [address] * Stool culture (05/15/2025 6:00 PM EDT) Special Requests None 05/16/2025 9:42 AM EDT [facility] Stool Culture NO SALMONELLA, SHIGELLA OR CAMPYLOBACTER ISOLATED 05/18/2025 11:49 AM EDT [facility] Stool (Stool) 05/15/2025 6:0 0 PM EDT 05/16/2025 10:12 AM EDT Denise Weiner PA-C MICROBIOLOGY - GENERAL ORDE NATALY Final Result [facility] [address] [place] [address] * US Lower Extremity Veins Duplex Complete (Bilateral) (05/14/2025 1:20 PM EDT) MGB IMG TEST DEPARTMENT HELPER 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 No flow is seen in the proximal right popliteal artery. [facility] Anatomical Region Laterality Modality Ultrasound 05/14/2025 2:12 PM EDT Impressions 05/14/2025 2:22 PM EDT 1. No deep vein thrombosis in the visualized veins of either lower extremity. 2. No flow is seen in the proximal right popliteal artery. A clinically significant result was initiated on 05/14/2025 2:22 PM, Message ID [id number]. Narrative 05/14/2025 2:22 PM EDT US LOWER [...] was initiated on 05/14/2025 2:22 PM,Message ID [id number]. us Denise Weiner PA-C CV US VASCULAR [...] proctocolitis. Correlation with priorendoscopy findings recommended. ATTESTATION: Nicolette Vaughan as teaching physician, have reviewed theimages for [...] PA-C IMG CT CHEST Final Resul t from Last 3 Months Additional Health Concerns Infection Onset Date Last Indicated CoV-Risk 06/08/2025 06/08/2025 Insurance MEDICARE PART A & B [facility] MEDICARE PART A & B [place] & B HEALTH MEDICARE PART A & B [facility] Care Teams Electrical Manufacturing Technician Relationship Specialty Start Date End Date Pcp, Unknown PCP - General 06/08/25 Additional Source Comments The information contained in this document represents components of the legal health record. It is not the complete legal health record.[facility]
--- OUTSIDE RECORDS SUMMARY | 2025-06-16 21:36 | XMS_ITS | Encounter Summary ---
Author Organization [facility] Address [address] [place] [phone] Phone Care Team Providers Care Tapper Bit Name Role Phone Pcp, Unknown Primary Care Provider Unavailabl e Denise Weiner PA-C Primary Care Provider Pcp, Unknown Primary Care Provider Unavailabl e Encounter Details Date Type Department Care Team (Late st Contact Info) Description 05/14/[address] [facility], Ct Scan - [facility] [address] [place] [address] Social History Tobacco Use Types Packs/Day Years [...] 9:56 AM EDT Clay Yost RN * [place] Suicide Severity Rating Scale (Screener/Recent Self-Report) Question [...] documented as of this encounter Care Teams Tapper Bit Relationship Specialty Start Date End Date Pcp, Unknown PCP - General 05/16/25 06/07/25 Denise Weiner PA-C [address] [place], [place] [id number] [email or web address] PCP - General Physician Mill Worker 05/15/25 05/15/25 Pcp, Unknown PCP - General 06/08/25 documented as of this encounter Additional Source Comments The information contained in this document represents components of the legal health record. It is not the complete legal health record.[facility]
--- OUTSIDE RECORDS SUMMARY | 2025-06-16 21:36 | XMS_ITS | Clinical Summary ---
Author Organization [facility] Address [address] [place] [address] Care Team Providers Care Trench Pipe Layer Helper Name Role Phone Thomas Kam Primary Care [...] age to complete this topic Care Teams Trench Pipe Layer Helper Relationship Specialty Start Date End Date Thomas Kam PA [address] [place] [phone] PCP - General Physician Beta Tester 02/16/23
[2025-06-16 21:50] LABS: MANUAL DIFF FLAG NO
[2025-06-16 21:51] LABS: Hematocrit 39.7 % (42.0-52.0); Hemoglobin 12.8 g/dl (14.0-18.0); Imm Gran Abs Auto 0.02 X10*3/uL (0.00-0.03); Imm Gran Pct Auto 0.4 % (0.0-0.4); Lymphocytes Absolute Auto 2.6 X10*3/uL (1.2-4.9); Mean Corpuscular HGB Conc 32.2 g/dl (31.0-36.0); Mean Corpuscular Hemoglobin 28.7 pg (27.0-33.0); Mean Corpuscular Volume 89.0 fL (80.0-98.0); NRBC Abs Auto 0.000 X10*3/uL (0.0-0.012); NRBC Pct Auto 0.0 /100WBC (0.0-0.2); Platelet Count 188 X10*3/uL (160-400); Red Blood Count 4.46 X10*6/uL (4.60-5.80); White Blood Count 5.2 X10*3/uL (4.8-10.8)
[2025-06-16 22:07] LABS: Alanine Aminotransferase 36 U/L (0-40); Albumin Level 4.4 g/dL (3.5-5.0); Alkaline Phosphatase 115 U/L (39-117); Anion Gap 9 (12-20); Aspartate Amino Transferase 28 U/L (5-37); Blood Urea Nitrogen 7 mg/dL (9-16); Calcium 9.3 mg/dL (8.4-10.2); Carbon Dioxide 25 mmol/L (22-29); Chloride 110 mmol/L (96-108); Creatinine Clr Calc Pharmacy 90.0; Estimated Glomerular Filt Rate > 60; Lipase 19 U/L (8-78); Potassium 3.6 mmol/L (3.3-5.1); Sodium 140 mmol/L (135-145); Total Protein 9.0 g/dL (6.5-8.0)
[2025-06-16 22:14] LABS: INTERNATIONAL NORM RATIO 2.7 (0.9-1.1); Prothrombin Time 30.7 SEC (10.9-12.4)
[2025-06-16 22:15] LABS: Troponin-I High Sensitivity < 2.7 ng/L (<3.5-35.0)
[2025-06-16] MEDS: iohexoL 350 MG/ML 100 ML INFUS..BTL 85 ML IV (22:21)
[2025-06-16 23:48] VITALS: BP 106/72; PULSE 75; RESP 18; TEMP 36.7; O2SAT 97
[2025-06-17] MEDS: Morphine Sulfate Immed Release 15 MG TABLET PO (00:03)
[2025-06-17 00:17] VITALS: BP 106/72; PULSE 75; RESP 18; TEMP 36.7; O2SAT 97
== END 2025-06-17 00:20 | disposition home or self-care (01) ==
PROVIDERS: Physician Assistant; Emergency Provider Emergency Medicine; PCP Physician Assistant
DX: K57.92 Diverticulitis of intestine, part unspecified, without perforation or abscess without bleeding (principal); R10.32 Left lower quadrant pain; E11.9 Type 2 diabetes mellitus without complications; G40.909 Epilepsy, unspecified, not intractable, without status epilepticus; I71.40 Abdominal aortic aneurysm, without rupture, unspecified; Z86.718 Personal history of other venous thrombosis and embolism; Z79.01 Long term (current) use of anticoagulants; Z79.899 Other long term (current) drug therapy; Z03.818 Encounter for observation for suspected exposure to other biological agents ruled out
CPT/HCPCS: 36415; 71046; 74177; 80053; 81001; 83690; 84484; 85025; 85610; 87502; 87635; 93005; 96374; 96375; 99285; J2270; J2405; Q9967

== ENCOUNTER → 2025-06-16 15:15 | Outpatient (BNV) | payer MEDICARE, MEDICAID, SELFPAY | PROVIDERS: PCP Physician Assistant; Visit Provider Radiology Diagnostic Radiology | DX: R07.9 Chest pain, unspecified (principal) | CPT/HCPCS: 71046 ==

== ENCOUNTER 2025-07-19 10:04 | Emergency (ER) | payer MEDICARE, MEDICAID, SELFPAY ==
--- OUTSIDE RECORDS SUMMARY | 2025-07-13 12:54 | XMS_ITS | Encounter Summary ---
Author Organization [facility] Address [address] [place] [phone] Phone Care Team Providers Care Laundry Machine Mechanic Name Role Phone Pcp, Unknown Primary Care Provider Unavailabl e Reason for Visit * Reason Comments Abdominal Pain Foot Swelling Encounter Details Date Type Department Care Team ([facility] st Contact Info) Description 07/13/2025 12:54 PM EST - 07/13/2025 7:45 PM EST Emergency [facility] [address] [place] [address] Discharge Disposition: Home or Self Care Social [...] as food, clothing, or medical care? No 07/13/2025 In the past 12 months have y ou been in a relationship with a person who hurts, threatens, or tries to control you? No 07/13/2025 Are you denied basic needs s uch as food, clothing, or medical care? No 07/13/2025 In the past 12 months have y ou been in a relationship with a person who hurts, threatens, or tries to control you? No 07/13/2025 Sex and Gender Information Value Date Recorded Sex Assigned at Male 05/14/2025 10:28 AM EDT Legal Sex Male 9:34 AM EDT Gender Identity Male 05/14/2025 10:28 AM EDT Sexual Orientation Lesbian or Chaidez 05/14/2025 10 :28 AM EDT documented as of this encounter Last Filed Vital Signs Vital Sign Reading Time Taken Comments Blood Pressure 126/65 07/13/2025 6:18 PM EST Pulse 73 07/13/2025 6:18 PM EST Temperature 36.8 C (98.2 F) 07/13/2025 7:09 PM EST Respiratory Rate 16 07/13/2025 6:18 PM EST Oxygen Saturation 97% 07/13/2025 6:18 PM EST Inhaled Oxygen Concentration - - Weight 80.7 kg (178 lb) 07/13/2025 12:51 PM EST Height 175.3 cm (5' 9 ) 07/13/2025 12:51 PM EST Body Mass Index 26.29 07/13/2025 12:51 PM EST documented in this encounter Functional Status * Calculated C-SSRS Risk Score (Lifetime/Recent) Answer Date of Assessment Author No Risk Indicated 07/13/2025 12:52 PM EST Lizet Zayas RN * [place] Suicide Severity Rating Scale (Screener/Recent Self-Report) Question Answer Date of Assessment Author 1. Wish to be (Past 1 Month) No 025 12:52 PM EST Lizet Zayas RN 2. Non-Specific Active Suici rylan Thoughts (Past 1 Month) No 07/13/2025 12:52 PM EST Lizet Zayas RN 6. Suicidal Behavior (Lifetime) No 12:52 PM EST Lizet Zayas RN documented as of this encounter Discharge Instructions * Discharge Instructions* Kailey Mullins PA-C - 07/13/2025 7:01 PM EST You were seen in the emergency department today for left leg pain as well as ongoing abdominal discomfort. Blood work ultrasounds of bilateral lower extremities as well as a CT scan of your abdomen was performed and was reassuring. It is uncertain what is causing your ongoing symptoms it is importan t you follow-up with your GI doctor continue home medications as directed use ibuprofen and Tylenolfor pain control continue fluids for hydration. documented in this encounter ED Notes * Myriam Hurtado RN - 07/13/2025 7:09 PM EST ED Discharge Nursing Note Pt verbalized understanding of d/c instructions and to follow up with PCP. Pt understood to return to ED with any new or worsening symptoms. Pt ambulated out of department with steady gait. Pt declined parts interpreter machine. Pt has family at bedside. Pt understood to follow up with vascular and GI doctors. * Lizet Zayas RN - 07/13/2025 12:46 PM EST Pt states I have been having this pain on my stomach, it radiates to my back and goes down my leg. 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 Pt reports new swollen to L ankle that started three days ago. Pt denies CP or SOB. Pt reports history of AAA. Pt is ambulatory with normal steady gait. Pt reports LLQ abdominal pain for one month. Pt has an appointment with PCP this week. + pedal pulse. documented in this encounter Plan of Treatment Not on file documented as of this encounter Procedures Procedure Name Priority Date/Time Associated Diagnosis Comments CT ABDOMEN/PELVIS WITH CONTRAST Routine 07/13/2025 4:26 PM EST US LOWER EXTREMITY VEINS DUPLEX COMPLETE (BILATERAL) Routine 07/13/2025 3:51 PM EST Left leg pain Right leg pain PT-INR STAT 07/13/2025 2:29 PM EST CBC AND DIFFERENTIAL STAT 07/13/2025 2:28 PM EST LFTS (HEPATIC PANEL) STAT 07/13/2025 2:28 PM EST CBC AND DIFFERENTIAL STAT 07/13/2025 2:28 PM EST LIPASE STAT 07/13/2025 2:28 PM EST BASIC METABOLIC PANEL (BMP) STAT 07/13/2025 2:28 PM EST URINALYSIS WITH REFLEX TO URINE CULTURE STAT 07/13/2025 2:01 PM EST ECG 12-LEAD STAT 07/13/2025 1:25 PM EST documented in this encounter Results * CT ABDOMEN/PELVIS WITH CONTRAST (07/13/2025 4:26 PM EST) Anatomical Region Laterality Modality Abdomen, Pelvis Computed Tomogra phy 07/13/2025 6:03 PM EST Impressions 07/13/2025 6:13 PM EST No acute abnormality in the abdomen or pelvis. Narrative 07/13/2025 6:[address] ABDOMEN/PELVIS WITH CONTRAST Referring clinician's provided indication for this examination in [facility]: * LUQ abdominal pain TECHNIQUE: Multidetector-row CT of the abdomen and pelvis was performed after administration of intravenous contrast using tailored dose modulation techniques. Images were reconstructed in the axial, coronal, and sagittal planes. COMPARISON: CT angiogram of the abdomen and pelvis dated June 10, 2025 FINDINGS: Lower Chest: No consolidation or pleural effusions. Liver: No focal lesions. Biliary: Status post cholecystectomy. No biliary ductal dilatation. Spleen: No splenomegaly or focal lesions. Pancreas: No masses or ductal dilatation. Adrenal Glands: No nodules. Kidneys/Ureters: No stones or hydronephrosis. Unchanged right renal lower pole scarring. Bowel: No bowel wall thickening or dilatation. Patent sigmoid anastomosis. Prior appendectomy. Peritoneum/Retroperitoneum: No pneumoperitoneum or free fluid. Lymph Nodes: No lymphadenopathy. Pelvic Organs/Bladder: No significant abnormality. Vessels: Status post infrarenal aortobiiliac endovascular graft repair. Bones/Soft Tissues: No acute or suspicious osseous abnormality. Procedure Note Laura Burnett MD - 07/13/2025 CT ABDOMEN/PELVIS WITH CONTRAST Referring clinician's provided indication for this examination in [facility]: *LUQ abdominal pain TECHNIQUE: Multidetector-row CT of the abdomen and pelvis was performedafter administration of intravenous contrast using tailored dosemodulation techniques. Images were reconstructed in the axial, coronal,and sagittal planes. COMPARISON: CT angiogram of the abdomen and pelvis dated May FINDINGS: Lower Chest: No consolidation or pleural effusions. Liver: No focal lesions. Biliary: Status post cholecystectomy. No biliary ductal dilatation. Spleen: No splenomegaly or focal lesions. Pancreas: No masses or ductal dilatation. Adrenal Glands: No nodules. Kidneys/Ureters: No stones or hydronephrosis. Unchanged right renal lowerpole scarring. Bowel: No bowel wall thickening or dilatation. Patent sigmoid anastomosis.Prior appendectomy. Peritoneum/Retroperitoneum: No pneumoperitoneum or free fluid. Lymph Nodes: No lymphadenopathy. Pelvic Organs/Bladder: No significant abnormality. Vessels: Status post infrarenal aortobiiliac endovascular graft repair. Bones/Soft Tissues: No acute or suspicious osseous abnormality. IMPRESSION: No acute abnormality in the abdomen or pelvis. us Kailey Mullins PA-C IMG CT ABD/PELVIS Fin al Result * US Lower Extremity Veins Duplex Complete (Bilateral) (07/13/2025 3:51 PM EST) Anatomical Region Laterality Modality Ultrasound 07/13/2025 5:35 PM EST Impressions 07/13/2025 5:53 PM EST No deep vein thrombosis in the visualized veins of either lower extremity. ATTESTATION: I, Guy Rider as teaching physician, have reviewed the images for this case and if necessary edited the report originally created by Izabel Martines MD. Narrative 07/13/2025 5:53 PM EST US LOWER EXTREMITY VEINS DUPLEX COMPLETE (BILATERAL) Referring clinician's provided indication for this examination in Epic: Left Leg Pain; Right Leg Pain Review of the Electronic Medical Record reveals an additional history of: BLE pain, patient off Warfarin for 9 days for colonoscopy, r/o DVT. TECHNIQUE: Lower extremity venous ultrasound with color and spectral Doppler. COMPARISON: US LOWER EXTREMITY VEINS DUPLEX COMPLETE (BILATERAL) FINDINGS: Right lower extremity Common femoral vein: Normal compressibility and flow characteristics. Femoral vein: Normal compressibility and flow characteristics. Popliteal vein: Normal compressibility and flow characteristics. Posterior tibial veins: Normal compressibility. Peroneal veins: Normal compressibility. Gastrocnemius veins: Normal compressibility. Great saphenous vein: Normal compressibility at the saphenofemoral junction. 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 Left lower extremity Common femoral vein: Normal compressibility and flow characteristics. Femoral vein: Normal compressibility and flow characteristics. Popliteal vein: Normal compressibility and flow characteristics. Posterior tibial veins: Normal compressibility. Peroneal veins: Normal compressibility. Gastrocnemius veins: Normal compressibility. Great saphenous vein: Normal compressibility at the saphenofemoral junction. Other: None. Procedure Note Guy Rider MD - 07/13/2025 US LOWER EXTREMITY VEINS DUPLEX COMPLETE (BILATERAL) Referring clinician's provided indication for this examination in Epic:Left Leg Pain; Right Leg Pain Review of the Electronic Medical Record reveals an additional history of:BLE pain, patient off Warfarin for 9 days for colonoscopy, r/o DVT. TECHNIQUE: Lower extremity venous ultrasound with color and spectralDoppler. COMPARISON: US LOWER EXTREMITY VEINS DUPLEX COMPLETE (BILATERAL) FINDINGS: Right lower extremity Common femoral vein: Normal compressibility and flow characteristics. Femoral vein: Normal compressibility and flow characteristics. Popliteal vein: Normal compressibility and flow characteristics. Posterior tibial veins: Normal compressibility. Peroneal veins: Normal compressibility. Gastrocnemius veins: Normal compressibility. Great saphenous vein: Normal compressibility at the saphenofemoraljunction. Other: Incidentally visualized known thrombosed right popliteal arteryaneurysm. Left lower extremity Common femoral vein: Normal compressibility and flow characteristics. Femoral vein: Normal compressibility and flow characteristics. Popliteal vein: Normal compressibility and flow characteristics. Posterior tibial veins: Normal compressibility. Peroneal veins: Normal compressibility. Gastrocnemius veins: Normal compressibility. Great saphenous vein: Normal compressibility at the saphenofemoraljunction. Other: None. IMPRESSION: No deep vein thrombosis in the visualized veins of either lowerextremity. ATTESTATION: I, Guy Rider as teaching physician, have reviewed theimages for this case and if necessary edited the report originally createdby Izabel Martines MD. us Kailey Mullins PA-C CV US VASCULAR Final Result * PT-INR (07/13/2025 2:29 PM EST) PT 12.4 10.0 - 13.0 sec 07/13/2025 2:59 PM EST [facility] INR 1.0 0.9 - 1.1 07/13/2025 2:59 PM EST [facility] Comment:Therapeutic Range 2. 0 - 3.5 Blood (Blood) Venipuncture / Unknown 07/13/2025 2:29 PM EST 07/13/2025 2:41 PM EST us Kailey Mullins PA-C LAB BLOOD BKR ORDERAB LES Final Result [facility] [address] [place] [address] * (ABNORMAL) CBC and Differential (07/13/2025 2:28 PM EST) WBC 6.78 4.00 - 11.00 K/uL 07/13/2025 2:53 PM [facility] RBC 4.03(L) 4.50 - 5.90 M/uL 07/13/2025 2:53 PM [facility] Hemoglobin 12.0(L) 13.5 - 17.5 g/dL 07/13/2025 2:53 PM [facility] Hematocrit 37.2(L) 41.0 - 53.0 % 07/13/2025 2:53 PM [facility] MCV 92.3 80.0 - 100.0 fL 07/13/2025 2:53 PM [facility] MCH 29.8 27.0 - 31.0 pg 07/13/2025 2:53 PM [facility] MCHC 32.3 32.0 - 36.0 g/dL 07/13/2025 2:53 PM [facility] MPV 9.5 8.4 - 12.0 fL 07/13/2025 2:53 PM [facility] RDW-CV 14.6(H) 11.5 - 14.5 % 07/13/2025 2:53 PM [facility] PLT 159 150 - 450 K/uL 07/13/2025 2:53 PM [facility] Neutrophils 56.8 % 07/13/2025 2:53 PM [facility] Lymphocytes 33.5 % 07/13/2025 2:53 PM [facility] Monocytes 8.7 % 07/13/2025 2:53 PM [facility] Eosinophils 0.3 % 07/13/2025 2:53 PM [facility] Basophils 0.4 % 07/13/2025 2:53 PM [facility] Imm Grans 0.3 % 07/13/2025 2:53 PM [facility] NRBC 0.0 <=0.0 /100 WBCs 07/13/2025 2:53 PM [facility] Absolute Neutrophils 3.85 1.92 - 7.60 K/uL 07/13/2025 2:53 PM [facility] Absolute Lymphocytes 2.27 0.72 - 4.10 K/uL 07/13/2025 2:53 PM [facility] Absolute Monocytes 0.59 0.16 - 1.10 K/uL 07/13/2025 2:53 PM [facility] Absolute Eosinophils 0.02 0.00 - 0.50 K/uL 07/13/2025 2:53 PM [facility] Absolute Basophils 0.03 0.00 - 0.15 K/uL 07/13/2025 2:53 PM [facility] Absolute Imm Grans 0.02 0.00 - 0.09 K/uL 07/13/2025 2:53 PM [facility] Absolute NRBC 0.00 <=0.00 K cells/uL 07/13/2025 2:53 PM [facility] Absolute Neutrophils 3.85 1.92 - 7.60 K/uL 07/13/2025 2:53 PM [facility] Comment:Automated cell count . Manual ANC may differ if performed. Diff Type Auto 07/13/2025 2:53 PM [facility] Blood (Blood) Venipuncture / Unknown 07/13/2025 2:28 PM EST 07/13/2025 2:41 PM EST us Kailey Mullins PA-C LAB BLOOD BKR ORDERAB LES Final Result [facility] [address], [place] [id number] * Lipase (07/13/2025 2:28 PM EST) Lipase 17 13 - 60 U/L 07/13/2025 3:29 PM [facility] Blood (Blood) Venipuncture / Unknown 07/13/2025 2:28 PM EST 07/13/2025 2:41 PM EST us Kailey Mullins PA-C LAB BLOOD BKR ORDERAB LES Final Result Performing Organization Address City/[facility]/ZIP Co de Phone Number [address] [address] * Hepatic Panel (LFTs) (07/13/2025 2:28 PM EST) AST 25 <40 U/L 07/13/2025 3:29 PM EST [facility] ALT 25 <50 U/L 07/13/2025 3:29 PM [facility] Alkaline Phosphatase 105 40 - 130 U/L 07/13/2025 3:29 PM [facility] Bilirubin, Total 0.4 0.0 - 1.2 mg/dL 07/13/2025 3:29 PM [facility] Bilirubin, Direct 0.1 0.0 - 0.3 mg/dL 07/13/2025 3:29 PM [facility] Total Protein 8.3 6.4 - 8.3 g/dL 07/13/2025 3:29 PM [facility] Albumin 4.3 3.5 - 5.2 g/dL 07/13/2025 3:29 PM [facility] Globulin 4.0 1.9 - 4.1 g/dL 07/13/2025 3:29 PM [facility] Blood (Blood) Venipuncture / Unknown 07/13/2025 2:28 PM EST 07/13/2025 2:41 PM EST us Kailey Mullins PA-C LAB BLOOD BKR ORDERAB LES Final Result [address] [address] * (ABNORMAL) Basic Metabolic Panel (BMP) (07/13/2025 2:28 PM EST) Sodium 135(L) 136 - 145 mmol/L 07/13/2025 3:29 PM [facility] Potassium 4.4 3.4 - 5.1 mmol/L 07/13/2025 3:29 PM [facility] Chloride 102 98 - 107 mmol/L 07/13/2025 3:29 PM [facility] CO2 25 20 - 31 mmol/L 07/13/2025 3:29 PM [facility] Anion Gap 8 3 - 17 mmol/L 07/13/2025 3:29 PM [facility] BUN 10 6 - 23 mg/dL 07/13/2025 3:29 PM [facility] Creatinine 1.00 0.60 - 1.30 mg/dL 07/13/2025 3:29 PM [facility] eGFR 91 >59 mL/min/1.7 3m2 07/13/2025 3:29 PM [facility] Comment:Estimated glomerular filtration rate calculated using the CKD-EPI refit equation. Glucose 134(H) 70 - 99 mg/dL 07/13/2025 3:29 PM [facility] Calcium 9.1 8.5 - 10.5 mg/dL 07/13/2025 3:29 PM [facility] Blood (Blood) Venipuncture / Unknown 07/13/2025 2:28 PM EST 07/13/2025 2:41 PM EST us Kailey Mullins PA-C LAB BLOOD BKR ORDERAB LES Final Result [facility] [address], [place] [id number] * (ABNORMAL) Urinalysis with Reflex to Urine Culture (07/13/2025 2:01 PM EST) Color Yellow Yellow 07/13/2025 2:22 PM [facility] Clarity Clear Clear 07/13/2025 2:22 PM [facility] Glucose 3+(A) Negative 07/13/2025 2:22 PM [facility] Bilirubin Urine Negative Negative 2:22 PM [facility] Ketone Urine Negative Negative 07/13/2025 2:22 PM EST [facility] Specific [place] 1.025 1.001 - 1.035 07/13/2025 2:22 PM EST [facility] Blood Negative Negative 07/13/2025 2:22 PM EST [facility] pH 6.0 5.0 - 8.0 07/13/2025 2:22 PM EST [facility] Protein Negative Negative 07/13/2025 2:22 PM EST [facility] Nitrites Negative Negative 07/13/2025 2:22 PM EST [facility] Leukocyte Esterase Negative Negative 07/13/2025 2:22 PM EST [facility] Urobilinogen Negative Negative 07/13/2025 2:22 PM EST [facility] Urine (Urine, Voided) Non-Blood Collection / Unknown 07/13/2025 2:01 PM EST 07/13/2025 2:09 PM EST us Kailey Mullins PA-C LAB URINE ORDERABLES Final Result Performing Organization Address City/[facility] Co de Phone Number [address] [address] * ECG 12-LEAD (07/13/2025 1:25 PM EST) Ventricular Rate EKG/MIN 88 BPM [facility] Atrial Rate 88 BPM [facility] ND Interval 124 ms [facility] QRS Duration 84 ms [facility] QT Interval 396 ms [facility] QTC Interval 479 ms [facility] P [place] 42 degrees [facility] R Wave [place] 50 degrees [facility] T Wave [place] 26 degrees [facility] 07/13/2025 1:25 PM EST 07/13/2025 2:54 PM EST Narrative [facility] - 07/13/2025 2:54 PM EST Normal sinus rhythm Normal ECG When compared with ECG of 08-Jun-2025 13:13, No significant change was found Confirmed by Segundo Lujan ([id number]) on 07/13/2025 2:54:14 PM us Robert Yao PA-C ECG ORDERABLES Final Result Performing Organization Address City/[facility]/ZIP Co de Phone Number [facility] documented in this encounter Visit Diagnoses Diagnosis Left leg pain- Primary Pain in soft tissues of limb Right leg pain Pain in soft tissues of limb documented in this encounter Administered Medications Inactive Administered Medications - up to 3 most recent administrations Medication Order MAR Action Action Date Dose Rate Site iohexoL (OMNIPAQUE-350) 350 mg iodine/mL solution 75 mL 75 mL, Intravenous, Once as needed, pre procedure/treatment, Starting on Sun07/13/25 at 1626, For 1 dose, Procedural Contrast/Med Active Now, Each mL contains 755 mg of iohexol equivalent to 350 mg of organic iodine. Given 07/13/2025 4:27 PM EST 75 mL morphine injection 4 mg 4 mg, Intravenous, Once, On Sun07/13/25 at 1415, For 1 dose Given 07/13/2025 2:39 PM EST 4 mg morphine injection 4 mg 4 mg, Intravenous, Once, On Sun07/13/25 at 1530, For 1 dose Given 07/13/2025 4:42 PM EST 4 mg morphine injection 4 mg 4 mg, Intravenous, Once, On Sun07/13/25 at 1815, For 1 dose Given 07/13/2025 6:22 PM EST 4 mg sodium chloride (NS) 0.9 % syringe flush 3 mL 3 mL, Intravenous, As needed, line care, Starting on Sun07/13/25 at 1403, Per Institutional IV Line Care Policy. sodium chloride 0.9% bolus 1,000 mL 1,000 mL, Intravenous, Administer over 30 Minutes, at 2,000 mL/hr, Once, On Sun07/13/25 at 1415, For 1 dose New Bag 07/13/2025 2:39 PM EST 1,000 mL 2000 mL/hr documented in this encounter Active and Recently Administered Medications Times are shown in EST. Scheduled Medication Order 07/11/2025 07/12/2025 07/13/2025 morphine injection 4 mg (COMPLETED) 4 mg, Intravenous, Once, On Sun07/13/25 at 1415, For 1 dose 1439 (Given - Provid er: Malachi Marcos RN) morphine injection 4 mg (COMPLETED) 4 mg, Intravenous, Once, On Sun07/13/25 at 1530, For 1 dose 1642 (Given - Provid er: Malachi Marcos RN) morphine injection 4 mg (COMPLETED) 4 mg, Intravenous, Once, On Sun07/13/25 at 1815, For 1 dose 1822 (Given - Provid er: Malachi Marcos RN) sodium chloride 0.9% bolus 1,000 mL (COMPLETED) 1,000 mL, Intravenous, Administer over 30 Minutes, at 2,000 mL/hr, Once, On Sun07/13/25 at 1415, For 1 dose 1439 (New Bag - Prov ider: Malachi Marcos RN)1646 (Stopped - Provider: Malachi Marcos RN) PRN Medication Order 07/11/2025 07/12/2025 07/13/2025 iohexoL (OMNIPAQUE-350) 350 mg iodine/mL solution 75 mL (COMPLETED) 75 mL, Intravenous, Once as needed, pre procedure/treatment, Starting on Sun07/13/25 at 1626, For 1 dose, Procedural Contrast/Med Active Now, Each mL contains 755 mg of iohexol equivalent to 350 mg of organic iodine. 1627 (Given - Provid er: Brittany Mishra) sodium chloride (NS) 0.9 % syringe flush 3 mL 3 mL, Intravenous, As needed, line care, Starting on Sun07/13/25 at 1403, Per Institutional IV Line Care Policy. documented in this encounter Care Teams Laundry Machine Mechanic Relationship Specialty Start Date End Date Pcp, Unknown PCP - General 06/08/25 documented as of this encounter Additional Source Comments The information contained in this document represents components of the legal health record. It is not the complete legal health record.[facility]
--- NOTE | ~2025-07-19 | CT_ITS ---
CLINICAL HISTORY: abd pain hx divertic. black diarrhea on coumadin CT abdomen and pelvis with IV contrast. COMPARISON: CT abdomen and pelvis dated 06/16/25 at 22:12 EDT FINDINGS: Partially visualized lung bases are unremarkable. No focal hepatic lesion. Cholecystectomy. Splenic granulomas present. Normal pancreas. Normal adrenal glands. Symmetric renal enhancement. No hydronephrosis. Appendectomy. Mild colonic stool burden. Suture material present along the distal sigmoid colon. Mild thickening of the mucosa along the distal sigmoid colon. No mesenteric or retroperitoneal lymphadenopathy. Aortic bi-iliac stent graft appears patent. Diffuse thickening of the mucosa of the urinary bladder. No inguinal lymphadenopathy. No acute fracture or suspicious bone lesion. IMPRESSION: 1. Mild thickening of the mucosa of the distal sigmoid colon suspicious for a mild/early colitis. 2. Diffuse thickening of the mucosa of the urinary bladder can be associated with cystitis or chronic outlet obstruction. This document has been electronically signed by: Gorge Bar MD on 07/19/2025 13:02:12
[2025-07-19 10:22] VITALS: BP 95/61; PULSE 86; RESP 16; TEMP 36.8; O2SAT 100
--- OUTSIDE RECORDS SUMMARY | 2025-07-19 10:54 | XMS_ITS | Encounter Summary ---
Author Organization [facility] Address [address] [place] [phone] Phone Care Team Providers Care Vibration Technician Name Role Phone Pcp, Unknown Primary Care Provider Unavailabl e Denise Weiner PA-C Primary Care Provider [phone] Pcp, Unknown Primary Care Provider Unavailabl e Encounter Details Date Type Department Care Team (Late st Contact Info) Description 05/14/2025 Procedure Pass [facility], Ct Scan - [facility] [address] [place] [address] Social History Tobacco Use Types Packs/Day Years [...] 9:56 AM EDT Clay Yost, BLANCO * [place] Suicide Severity Rating Scale (Screener/Recent Self-Report) Question [...] 05/16/2025 1:32 PM EDT CoV-Risk 06/08/2025 06/08/2025 06/19/2025 1:21 AM EDT documented as of this encounter Care Teams Vibration Technician Relationship Specialty Start Date End Date Pcp, Unknown PCP - General 05/16/25 06/07/25 Denise Weiner PA-C [address] [place] [id number] [email or web address] PCP - General Physician Flooring Professional 05/15/25 05/15/25 Pcp, Unknown PCP - General 06/08/25 documented as of this encounter Additional Source Comments The information contained in this document represents components of the legal health record. It is not the complete legal health record.[facility]
--- OUTSIDE RECORDS SUMMARY | 2025-07-19 10:54 | XMS_ITS | Clinical Summary ---
Author Organization [address] [address] Phone Care Team Providers Care Manager Multicultural Name Role Phone Pcp, Does Not Have [...] - 144 mmol/L 04/29/2023 1:19 PM EDT [facility]IC[facility] Potassium 3.9 3.3 - 5.3 mmol/L 04/29/2023 1:19 PM EDT [facility] Chloride 101 98 - 107 mmol/L 04/29/2023 1:19 PM EDT [facility] CO2 24 20 - 30 mmol/L 04/29/2023 1:19 PM [facility]PART[facility] OF LAB[facility]ORY MEDICINE Anion Gap 11 7 - 17 04/29/2023 1:19 PM [facility]IC[facility] Glucose 181(H) 70 - 100 mg/dL 04/29/2023 1:19 PM [facility] MEDIC[facility] BUN 12 6 - 20 mg/dL 04/29/2023 1:19 PM [facility] Creatinine 1.17 0.40 - 1.30 mg/dL 04/29/2023 1:19 PM [facility]IC[facility] Calcium 9.2 8.8 - 10.2 mg/dL 04/29/2023 1:19 PM [facility]IC[facility] BUN/Creatinine Ratio 10.3 8.0 - 23.0 04/29/2023 1:19 PM [facility] Total Protein 8.7 6.6 - 8.7 g/dL 023 1:19 PM [facility]ORY [facility]IC[facility] Albumin 4.5 3.6 - 4.9 g/dL 04/29/2023 1:19 PM [facility]IC[facility] Total Bilirubin 0.5 <=1.2 mg/dL 04/29/20 1:19 PM [facility]IC[facility] Alkaline Phosphatase 155(H) 9 - 122 U/L 04/29/2023 1:19 PM [facility]IC[facility] Alanine Aminotransferase (ALT) 45 9 - 59 U/L 04/29/2023 1:19 PM [facility] Comment:Calcium dobesilate c an cause artificially low ALT results at therapeutic concentrations Aspartate Aminotransferase (AST) 51(H) 10 - 35 U/L 04/29/2023 1:19 PM [facility]ORY MEDIC[facility] Globulin 4.2(H) 2.3 - 3.5 g/dL 04/29/2023 1:19 PM [facility] LAB[facility]ORY MEDIC[facility] A/G Ratio 1.1 1.0 - 2.2 04/29/2023 1:19 PM [facility] LAB[facility]ORY MEDIC[facility] AST/ALT Ratio 1.1 Reference Range Not Established 04/29/2023 1:19 PM EDT [facility] MEDICINE eGFR (Creatinine) >60 >=60 mL/min/1.73m2 04/29/2023 1:19 PM EDT [facility]IC[facility] Comment: Values < 60 mL/min/1.73 m2 may indicate CKD if present for more than three months AND creatinine is at steady state. The eGFR provides a rough estimate of kidney function. On 04/11/22 all [facility] Clinical Labs and Epic began using a [id number] formula for estimating GFR called CKD-EPI Creatinine 2020. This equation reports eGFR based on creatinine, patient age, clinical sex, and is standardized to a body surface area of 1.73 m2. For the same creatinine, this new race-free eGFR will be lower than prior reported Black eGFR results and higher than prior Non-Black eGFR results. For further guidance, please refer to the CKD: Adult Wholesale Manager Signature pathway. Blood Venipuncture / Unknown 04/29/2023 12:45 PM EDT 04/29/2023 12:52 PM EDT us Kurt Akins MD LAB BLOOD ORDERABLES Final Resu lt [facility] DEPARTMENT OF LABORATORY MEDICINE [address] [place] [address], [facility] [phone] from Last 3 Months or Most Recently Relevant to Health Maintenance Insurance MEDICARE [id number] MEDICAID MEDICARE [id number] MEDICAID MEDICARE [id number] MEDICAID Care Teams Manager Multicultural Relationship Specialty Start Date End Date Pcp, Does Not Have A PCP - General 04/29/23
--- OUTSIDE RECORDS SUMMARY | 2025-07-19 10:54 | XMS_ITS | Clinical Summary ---
Author Organization [facility] Address [address] [place] [id number] Phone Care Team Providers Care Cutter Hand Name Role Phone Pcp, Unknown Primary Care Provider Unavailabl e Allergies Active Allergy Reactions Criticality Noted Date Comments Acetaminophen Hives,Itching,Unknow n High 02/11/2022 Other reaction(s): Unknown/Patient and Family Unable to Define Dexamethasone 06/08/2025 Other Reaction(s): Itching of male genital organs itching of face and rectum Fish Containing Products 10/02/2018 Fish Derived Unknown Medium 02/11/2022 Flu Vaccine [id number](6mos Up) 05/14/2025 Influenza Virus Vaccines Unknown Medium 02/11/2022 Hx of Guillain - Clear Ketorolac Rash Low 10/13/2024 Lamotrigine 05/14/2025 Shellfish Containing Products 05/14/2025 Oxycodone Itching,Unknown Medium 11/30/2018 Other Reaction(s): itch, Unspecified Oxycodone Other reaction(s): Unknown/Patient and Family Unable to Define Oxycodone-Acetaminophen 05/14/2025 Carbamazepine 05/14/2025 Tramadol 05/14/2025 Medications No known medications Encounters Date Type Department Care Team Description 07/13/2025 12:54 PM EST - 07/13/2025 7:45 PM EST Emergency [facility] [address] [place] [address] Discharge Disposition: Home or Self Care 07/13/2025 Procedure [facility], Ct Scan - [facility] [address] [place] [address] 06/08/2025 3:16 PM EDT - 06/08/2025 11:35 PM EDT Emergency [facility] Emergency [address] [place] [address] Mark Garcia MD Discharge Disposition: Home or Self Care 06/08/[address] [address] 06/08/[address] [address] 05/16/2025 9:30 AM EDT - 05/16/2025 11:59 PM EDT Hospital Encounter [facility] Phleb [address] [address] Denise Weiner PA-C Discharge Disposition: Home or Self Care 05/16/2025 Transcribe Orders [address] [address] Denise Weiner PA-C Diarrhea, unspecified type (Primary Dx) 05/16/2025 Transcribe Orders [facility] [address] [address] Denise Weiner PA-C Diarrhea, unspecified type (Primary Dx) 05/15/2025 9:13 AM EDT - 05/15/2025 11:59 PM EDT Hospital Encounter [facility] Specimen Processing [address] [place] [address] Denise Weiner PA-C Discharge Disposition: Home or Self Care 05/14/2025 9:56 AM EDT - 05/14/2025 6:00 PM EDT Emergency [facility] Emergency [address] [place] [address] Mark Garcia MD [facility], Xavi Elizabeth MD Discharge Disposition: Home or Self Care 05/14/2025 Procedure [facility], [address] [address] 05/14/[address] [address] from Last 3 Months Social History Tobacco [...] is your housing situation today? I have msity sing 05/14/2025 How many times have you [...] Mass Index 26.29 07/13/2025 12:51 PM EST Plan of Treatment Health Maintenance Due Date [...] 06/04/2028 06/04/2025, 2024 LIPID PANEL 06/04/2030 06/04/2025, 10/0 04/2025, 12/09/2024, Additional history exists Adult Td,Tdap Booster [...] EST LIPASE STAT 07/13/2025 2:28 PM EST LFTS (HEPATIC PANEL) STAT 07/13/2025 2:28 PM EST BASIC METABOLIC PANEL (BMP) STAT 07/13/2025 2:28 PM EST CBC AND DIFFERENTIAL STAT 07/13/2025 2:28 PM EST URINALYSIS WITH REFLEX TO URINE CULTURE STAT 07/13/2025 2:01 PM EST ECG 12-LEAD STAT 07/13/2025 1:25 PM EST LACTIC ACID (LACTATE) STAT 06/08/2025 8:[address] ANGIO ABDOMINAL AORTA AND BILATERAL LOWER EXTREMITY RUNOFF WITH AND WITHOUT CONTRAST Routine 06/08/2025 8:[address] CHEST PULMONARY ANGIOGRAM (ACUTE) Routine 06/08/2025 8:03 PM EDT US LOWER EXTREMITY VEINS DUPLEX COMPLETE (BILATERAL) Routine 06/08/2025 7:00 PM EDT Left leg pain Right leg pain PT-INR STAT 06/08/2025 5:36 PM EDT SARS-COV-2, INFLUENZA A/B, PCR Routine 06/08/2025 4:00 PM EDT COVID PANDEMIC RESPIRATORY VIRAL ORDER (PRO) STAT 06/08/2025 4:00 PM EDT URINE SEDIMENT STAT 06/08/2025 3:50 PM EDT URINALYSIS WITH REFLEX TO URINE CULTURE STAT 06/08/2025 3:50 PM EDT TROPONIN STAT 06/08/2025 3:17 PM EDT TROPONIN STAT 06/08/2025 2:43 PM EDT LIPASE STAT 06/08/2025 1:55 PM EDT LFTS (HEPATIC PANEL) STAT 06/08/2025 1:55 PM EDT BASIC METABOLIC PANEL (BMP) STAT 06/08/2025 1:55 PM EDT CBC AND DIFFERENTIAL STAT 06/08/2025 1:55 PM EDT ECG 12-LEAD STAT 06/08/2025 1:13 PM EDT GIARDIA CRYPTOSPORIDIUM SCREEN Routine 05/16/2025 10:21 AM EDT Diarrhea, unspecified type CLOSTRIDIOIDES (CLOSTRIDIUM) DIFFICILE, PCR Routine 05/15/2025 6:00 PM EDT Diarrhea, [...] 05/14/2025 10:25 AM EDT BASIC METABOLIC PANEL (BMP) STAT 05/14/2025 10:25 AM EDT CBC AND DIFFERENTIAL STAT 05/14/2025 10:25 AM EDT URINALYSIS WITH REFLEX TO URINE CULTURE STAT 05/14/2025 10:11 AM EDT from Last 3 Months Results * CT ABDOMEN/PELVIS WITH CONTRAST (07/13/2025 4:26 PM EST) Anatomical Region Laterality Modality Abdomen, Pelvis Computed Tomogra phy 07/13/2025 6:03 PM EST Impressions 07/13/2025 6:13 PM EST No acute abnormality in the abdomen or pelvis. Narrative 07/13/2025 6:[address] ABDOMEN/PELVIS WITH CONTRAST Referring clinician's provided indication for this examination in Epic: * LUQ abdominal pain TECHNIQUE: Multidetector-row CT [...] provided indication for this examination in Epic: *LUQ abdominal pain TECHNIQUE: Multidetector-row CT of [...] clinician's provided indication for this examination in [facility]: Left Leg Pain; Right Leg Pain Review [...] clinician's provided indication for this examination in [facility]:Left Leg Pain; Right Leg Pain Review of [...] the report originally createdby Izabel Martines MD. Kailey Mullins PA-C CV US VASCULAR Final Result * PT-INR (07/13/2025 2:29 PM EST) Only the most recent of3 resultswithin the time period is included. PT 12.4 10.0 - 13.0 sec 07/13/2025 2:59 PM EST [facility] INR 1.0 0.9 - 1.1 07/13/2025 2:59 PM EST [facility] Comment:Therapeutic Range 2. 0 - 3.5 Blood (Blood) Venipuncture / Unknown 07/13/2025 2:29 PM EST 07/13/2025 2:41 PM EST us Kailey Mullins PA-C LAB BLOOD BKR ORDERAB LES Final Result [facility] [address] [place] [address] * (ABNORMAL) CBC and Differential (07/13/2025 2:28 PM EST) WBC 6.78 4.00 - 11.00 K/uL 07/13/2025 2:53 PM [facility] RBC 4.03(L) 4.50 - 5.90 M/uL 07/13/2025 2:53 PM [facility] Hemoglobin 12.0(L) 13.5 - 17.5 g/dL 07/13/2025 2:53 PM [facility] Hematocrit 37.2(L) 41.0 - 53.0 % 07/13/2025 2:53 PM [facility] MCV 92.3 80.0 - 100.0 fL 07/13/2025 2:53 PM [facility] MCH 29.8 27.0 - 31.0 pg 07/13/2025 2:53 PM [facility] MCHC 32.3 32.0 - 36.0 g/dL 07/13/2025 2:53 PM [facility] MPV 9.5 8.4 - 12.0 fL 07/13/2025 2:53 PM [facility] RDW-CV 14.6(H) 11.5 - 14.5 % 07/13/2025 2:53 PM [facility] PLT 159 150 - 450 K/uL 07/13/2025 2:53 PM [facility] Neutrophils 56.8 % 07/13/2025 2:53 PM [facility] Lymphocytes 33.5 % 07/13/2025 2:53 PM [facility] Monocytes 8.7 % 07/13/2025 2:53 PM [facility] Eosinophils 0.3 % 07/13/2025 2:53 PM [facility] Basophils 0.4 % 07/13/2025 2:53 PM [facility] Imm Grans 0.3 % 07/13/2025 2:53 PM [facility] NRBC 0.0 <=0.0 /100 WBCs 07/13/2025 2:53 PM [facility] Absolute Neutrophils 3.85 1.92 - 7.60 K/uL 07/13/2025 2:53 PM [facility] Absolute Lymphocytes 2.27 0.72 - 4.10 K/uL 07/13/2025 2:53 PM [facility] Absolute Monocytes 0.59 0.16 - 1.10 K/uL 07/13/2025 2:53 PM [facility] Absolute Eosinophils 0.02 0.00 - 0.50 K/uL 07/13/2025 2:53 PM [facility] Absolute Basophils 0.03 0.00 - 0.15 K/uL 07/13/2025 2:53 PM [facility] Absolute Imm Grans 0.02 0.00 - 0.09 K/uL 07/13/2025 2:53 PM [facility] Absolute NRBC 0.00 <=0.00 K cells/uL 07/13/2025 2:53 PM [facility] Absolute Neutrophils 3.85 1.92 - 7.60 K/uL 07/13/2025 2:53 PM [facility] Comment:Automated cell count . Manual ANC may differ if performed. Diff Type Auto 07/13/2025 2:53 PM [facility] Blood (Blood) Venipuncture / Unknown 07/13/2025 2:28 PM EST 07/13/2025 2:41 PM EST us Kailey Mullins PA-C LAB BLOOD BKR ORDERAB LES Final Result [address] [address] * Hepatic Panel (LFTs) (07/13/2025 2:28 PM EST) Only the most recent of3 resultswithin the time period is included. AST 25 <40 U/L 07/13/2025 3:29 PM [facility] ALT 25 <50 U/L 07/13/2025 3:29 PM [facility] Alkaline Phosphatase 105 40 - 130 U/L 07/13/2025 3:29 PM [facility] Bilirubin, Total 0.4 0.0 - 1.2 mg/dL 07/13/2025 3:29 PM [facility] Bilirubin, Direct 0.1 0.0 - 0.3 mg/dL 07/13/2025 3:29 PM [facility] Total Protein 8.3 6.4 - 8.3 g/dL 07/13/2025 3:29 PM [facility] Albumin 4.3 3.5 - 5.2 g/dL 07/13/2025 3:29 PM [facility] Globulin 4.0 1.9 - 4.1 g/dL 07/13/2025 3:29 PM [facility] Blood (Blood) Venipuncture / Unknown 07/13/2025 2:28 PM EST 07/13/2025 2:41 PM EST us Kailey Mullins PA-C LAB BLOOD BKR ORDERAB LES Final Result Performing Organization Address City/[facility]/ZIP Co de Phone Number [address] [address] * Lipase (07/13/2025 2:28 PM EST) Only the most recent of3 resultswithin the time period is included. Pathologist [facility] Lipase 17 13 - 60 U/L 07/13/2025 3:29 PM [facility] Blood (Blood) Venipuncture / Unknown 07/13/2025 2:28 PM EST 07/13/2025 2:41 PM EST us Kailey PEREZ-Zhen LAB BLOOD BKR ORDERAB LES Final Result [address] [address] * (ABNORMAL) Basic Metabolic Panel (BMP) (07/13/2025 2:28 PM EST) Only the most recent of3 resultswithin the time period is included. Sodium 135(L) 136 - 145 mmol/L 07/13/2025 3:29 PM [facility] Potassium 4.4 3.4 - 5.1 mmol/L 07/13/2025 3:29 PM [facility] Chloride 102 98 - 107 mmol/L 07/13/2025 3:29 PM [facility] CO2 25 20 - 31 mmol/L 07/13/2025 3:29 PM [facility] Anion Gap 8 3 - 17 mmol/L 07/13/2025 3:29 PM [facility] BUN 10 6 - 23 mg/dL 07/13/2025 3:29 PM [facility] Creatinine 1.00 0.60 - 1.30 mg/dL 07/13/2025 3:29 PM [facility] eGFR 91 >59 mL/min/1.7 3m2 07/13/2025 3:29 PM [facility] Comment:Estimated glomerular filtration rate calculated using the CKD-EPI refit equation. Glucose 134(H) 70 - 99 mg/dL 07/13/2025 3:29 PM [facility] Calcium 9.1 8.5 - 10.5 mg/dL 07/13/2025 3:29 PM [facility] Blood (Blood) Venipuncture / Unknown 07/13/2025 2:28 PM EST 07/13/2025 2:41 PM EST us Kailey Mullins PA-C LAB BLOOD BKR ORDERAB LES Final Result [address] [id number] * (ABNORMAL) Urinalysis with Reflex to Urine Culture (07/13/2025 2:01 PM EST) Only the most recent of3 resultswithin the time period is included. Color Yellow Yellow 07/13/2025 2:22 PM [facility] Clarity Clear Clear 07/13/2025 2:22 PM [facility] Glucose 3+(A) Negative 07/13/2025 2:22 PM [facility] Bilirubin Urine Negative Negative 2:22 PM [facility] Ketone Urine Negative Negative 07/13/2025 2:22 PM EST [facility] Specific Adah 1.025 1.001 - 1.035 07/13/2025 2:22 PM EST [facility] Blood Negative Negative 07/13/2025 2:22 PM [facility] pH 6.0 5.0 - 8.0 07/13/2025 2:22 PM EST [facility] Protein Negative Negative 07/13/2025 2:22 PM EST [facility] Nitrites Negative Negative 07/13/2025 2:22 PM [facility] Leukocyte Esterase Negative Negative 07/13/2025 2:22 PM EST [facility] Urobilinogen Negative Negative 07/13/2025 2:22 PM EST [facility] Urine (Urine, Voided) Non-Blood Collection / Unknown 07/13/2025 2:01 PM EST 07/13/2025 2:09 PM EST us Kailey Mullins PA-C LAB URINE ORDERABLES Final Result [address] [address] * ECG 12-LEAD (07/13/2025 1:25 PM EST) Only the most recent of3 resultswithin the time period is included. Ventricular Rate EKG/MIN 88 BPM [facility] Atrial Rate 88 BPM [facility] PA Interval 124 ms [facility] QRS Duration 84 ms [facility] QT Interval 396 ms [facility] QTC Interval 479 ms [facility] P [place] 42 degrees [facility] R Wave [place] 50 degrees [facility] T Wave [place] 26 degrees [facility] 07/13/2025 1:25 PM EST 07/13/2025 2:54 PM EST Narrative [facility] - 07/13/2025 2:54 PM EST Normal sinus rhythm Normal ECG When compared with ECG of 08-Jun-2025 13:13, No significant change was found Confirmed by Segundo Lujan ([id number]) on 07/13/2025 2:54:14 PM us Robert Yao PA-C ECG ORDERABLES Final Result [facility] * Lactate (06/08/2025 8:29 PM EDT) LACTATE 1.60 0.50 - 2.20 mmol/L [facility] Blood 06/08/2025 8:29 PM EDT 06/08/2025 8:32 PM EDT Kailey De La Garza PA-C LAB BLOOD BKR ORDERABLE S Final Result [address] [address] * CT ANGIO ABDOMINAL AORTA AND BILATERAL [...] run-off is present with patent SARAN and ASSISTANT OPERATIONS MANAGER. Proximal peroneal artery is patent with nonopacification [...] run-off is present with patent SARAN and ASSISTANT OPERATIONS MANAGER. Proximal peroneal artery is patent with nonopacification [...] clinician's provided indication for this examination in [facility]: *Claudication or leg ischemia, prior revasc TECHNIQUE: [...] run-off is present with patent SARAN and ASSISTANT OPERATIONS MANAGER. Proximal peronealartery is patent with nonopacification of [...] vessel run-off ispresent with patent SARAN and ASSISTANT OPERATIONS MANAGER. Proximal peroneal artery is patent withnonopacification of mid segment. Reconstitution of the distal segment ondelayed phase. 3. Left: 3 vessel runoff is present. ATTESTATION: ICosme as teaching physician, have reviewed theimages for [...] or alternative CT explanation for symptoms. ATTESTATION: ISamra as teaching physician, have reviewed the images for this case and if necessary edited the report originally created by Olga Lidia Nation. Narrative 06/08/2025 9:[address] CHEST [...] of the T6 superior endplate. Procedure Note Duraisamy, Samra, MBBS - 06/08/2025 CT CHEST PULMONARY ANGIOGRAM (ACUTE) Referring clinician's provided indication for this examination in [facility]: *PE suspected, high prob TECHNIQUE: Multidetector CT [...] clinician's provided indication for this examination in [facility]: Left Leg Pain; Right Leg Pain TECHNIQUE: [...] clinician's provided indication for this examination in [facility]:Left Leg Pain; Right Leg Pain TECHNIQUE: Lower [...] CV US VASCULAR Final R esult * SARS-CoV-2, Influenza A/B, PCR (06/08/2025 4:00 PM EDT) Specimen Source/Descriptio n NASOPHARYNGEAL SWAB [facility] Influenza A PCR Not Detected Not Detected [facility] Influenza B PCR Not Detected Not Detected [facility] SARS-CoV 2 (COVID-19) PCR Not Detected Not Detected [facility] Comment: SARS-CoV-2 not detected Negative results do not preclude SARS-CoV-2 infection and should not be used as the sole basis for patient management decisions. Negative results must be combined with clinical observations, patient history, and epidemiological information. 06/08/2025 4:00 PM EDT 06/08/2025 4:21 PM EDT Kailey De La Garza PA-C LAB GENERAL ORDERABLES Final Result [address] [address] * COVID Pandemic Respiratory Viral Order (PRO) (06/08/2025 4:00 PM EDT) Test Ordered Rapid COVID has been ordered [facility] Specimen Source/Descri ption CREDITED: CANCELLED BY PROVIDER. Add on flu received. Reordered as Covid and flu testing. [facility] SARS-CoV 2 (COVID-19) PCR CREDITED: CANCELLED BY PROVIDER. Add on flu received. Reordered as Covid and flu testing. Not Detected [facility] Other (Nasopharyngeal swab) 06/08/2025 4:00 PM EDT 06/08/2025 4:18 PM EDT Kailey De La Garza PA-C LAB GENERAL ORDERABLES Final Result Performing Organization Address [facility] Co de Phone Number [address] [address] * (ABNORMAL) Urine sediment (06/08/2025 3:50 PM EDT) WBC 0-4(A) NONE SEEN /hpf [facility] RBC 0-2(A) NONE SEEN /hpf [facility] URINE EPITHELIAL 21-49(A) NONE SEEN [facility] MUCUS 2+(A) NONE SEEN /hpf [facility] BACTERIA NONE SEEN NONE SEEN /hpf [facility] CAST 0-2 [facility] Comment:HYALINE CAST 06/08/2025 3:50 PM EDT 06/08/2025 4:25 PM EDT Stalin Lopez MD LAB URINE ORDERABLES Final Resu lt Performing Organization Address [facility] Co de Phone Number [address] [address] * Troponin (06/08/2025 3:17 PM EDT) Only the most recent of4 resultswithin the time period is included. Troponin-T, HS Gen5 <6 0 - 14 ng/L [facility] Blood 06/08/2025 3:17 PM EDT 06/08/2025 3:35 PM EDT us Stalin Lopez MD LAB BLOOD BKR ORDERABLES Final Result Performing Organization Address [facility] Co de Phone Number [address] [address] * (ABNORMAL) CBC and differential (06/08/2025 1:55 PM EDT) Only the most recent of2 resultswithin the time period is included. WBC 4.29 4.00 - 11.00 K/uL [facility] RBC 4.66 4.50 - 5.90 M/uL [facility] HGB 13.8 13.5 - 17.5 g/dL [facility] HCT 42.7 41.0 - 53.0 % [facility] PLT 163 150 - 450 K/uL [facility] MCV 91.6 80.0 - 100.0 fL [facility] MCH 29.6 27.0 - 31.0 pg [facility] MCHC 32.3 32.0 - 36.0 g/dL [facility] RDW 15.2(H) 11.5 - 14.5 % [facility] MPV 9.5 8.4 - 12.0 fL [facility] NRBC 0.00 0.00 /100 WBCs [facility] ABSOLUTE NRBC 0.00 0.00 K/uL [facility] DIFF METHOD Auto [facility] NEUTS 59.2 48.0 - 76.0 % [facility] LYMPHS 28.2 18.0 - 41.0 % [facility] MONOS 11.2(H) 4.0 - 11.0 % [facility] EOS 0.7 0.0 - 5.0 % [facility] BASOS 0.5 0.0 - 1.5 % [facility] Granulocytes, immature (%) 0.2 0.0 - 0.9 % [facility] ABSOLUTE NEUTS 2.54 1.92 - 7.60 K/uL [facility] ABSOLUTE LYMPHS 1.21 0.72 - 4.10 K/uL [facility] ABSOLUTE MONOS 0.48 0.16 - 1.10 K/uL [facility] ABSOLUTE EOS 0.03 0.00 - 0.50 K/uL [facility] ABSOLUTE BASOS 0.02 0.00 - 0.15 K/uL [facility] Granulocytes, immature 0.01 0.00 - 0.09 K/uL [facility] Blood 06/08/2025 1:55 PM EDT 06/08/2025 2:12 PM EDT us Stalin Lopez MD LAB BLOOD BKR ORDERABLES Final Result [address] [address] * Giardia and cryptosporidium screen (05/16/2025 10:21 AM EDT) GIARDIA AG Negative Negative [facility] Cryptosporidiu m, stool Negative Negative [facility] Stool (Stool) 05/16/2025 10: 21 AM EDT 05/16/2025 1:09 PM EDT us Denise Weiner PA-C NON CULTURE MICROBIOLOGY Fi nal Result Performing Organization Address [facility]/ZIP Co de Phone Number [address] [address] * C. DIFFICILE PCR (05/15/2025 6:00 PM EDT) C.DIFFICILE PCR Negative Negative [facility] C.DIFFICILE STRAIN PRESUMPTIVE NEGATIVE PRESUMPTIVE NEGATIVE [facility] Comment:Detection of 027/NAP 1/BI strains of C.difficile is presumptive and is solely for epidemiological purposes and is not intended to guide or monitor treatment of infections. Stool (Stool) 05/15/2025 6:0 0 PM EDT 05/16/2025 10:14 AM EDT us Denise Weiner PA-C LAB BODY FLUIDS AND STOOL O RDERABLES Final Result Performing Organization Address [facility]/ZIP Co de Phone Number [address] [address] * Ova and parasites, stool (05/15/2025 6:00 PM EDT) Parasitic exam FINAL 5 1506 [facility] OF LAB MED AND PAT+ Comment: (NOTE) SOURCE: STOOL, STLP OVA AND PARASITE, MICROSCOPY, F FINAL No parasites seen. Cryptosporidium, Cyclospora, and microsporidia are not readily detected by this method. Single negative specimen does not rule out parasitic infection. Stool (Stool) 05/15/2025 6:0 0 PM EDT 05/16/2025 10:11 AM EDT us Denise Weiner PA-C LAB BODY FLUIDS AND STOOL O RDERABLES Final Result [facility] LAB MED AND PAT+ [address] [place] [address] * Stool culture (05/15/2025 6:00 PM EDT) Special Requests None 05/16/2025 9:42 AM EDT [facility] Stool Culture NO SALMONELLA, SHIGELLA OR CAMPYLOBACTER ISOLATED 05/18/2025 11:49 AM EDT [facility] Stool (Stool) 05/15/2025 6:0 0 PM EDT 05/16/2025 10:12 AM EDT us Denise Weiner PA-C LAB MICROBIOLOGY CULTURE OR DERABLES Final Result Performing Organization Address City/[facility] Co de Phone Number [facility] [address] [place] [address] * US Lower Extremity Veins Duplex Complete (Bilateral) (05/14/2025 1:20 PM EDT) MGB 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 No flow is seen in the proximal right popliteal artery. [facility] Anatomical Region Laterality Modality Ultrasound 05/14/2025 2:12 PM EDT Impressions 05/14/2025 2:22 PM EDT 1. No deep vein thrombosis in the visualized veins of either lower extremity. 2. No flow is seen in the proximal right popliteal artery. A clinically significant result was initiated on 05/14/2025 2:22 PM, Message ID [id number]. Narrative 05/14/2025 2:22 PM EDT US LOWER [...] was initiated on 05/14/2025 2:22 PM,Message ID [id number]. us Denise Weiner PA-C CV US VASCULAR [...] Correlation with prior endoscopy findings recommended. ATTESTATION: Nicolette Vaughan as teaching physician, have reviewed the [...] Final Resul t from Last 3 Months Insurance MEDICARE PART A & B [facility] MEDICARE PART A & B HEALTH MEDICARE PART A & B [place]ALTH MEDICARE PART A & B [place] MED[place]ARE PART A & B [facility] B [facility] Care Teams Cutter Hand Relationship Specialty Start Date End Date Pcp, Unknown PCP - General 06/08/25 Additional Source Comments The information contained in this document represents components of the legal health record. It is not the complete legal health record.[facility]
--- OUTSIDE RECORDS SUMMARY | 2025-07-19 10:54 | XMS_ITS | Encounter Summary ---
Author Organization [facility] Address [address] [place] [phone] Phone Care Team Providers Care Resource Room Special Education Teacher Name Role Phone Pcp, Unknown Primary Care Provider Unavailabl e Encounter Details Date Type Department Care Team (Late st Contact Info) Description 06/08/2025 Procedure Pass [facility], Ct Scan - [address] [address] Social History Tobacco Use Types Packs/Day Years [...] Risk Indicated 06/08/2025 1:10 PM EDT Umu Bai RN * [place] Suicide Severity Rating Scale (Screener/Recent Self-Report) Question Answer Date of Assessment Author 1. Wish to be (Past 1 Month) No 025 1:10 PM EDT Umu Merino, RN 2. Non-Specific Active Suici rylan Thoughts (Past 1 Month) No 06/08/2025 1:10 PM EDT Umu Merino RN 6. Suicidal Behavior (Lifetime) No 1:10 PM EDT Umu Merino, RN documented as of this encounter Plan of Treatment Not on file documented as of this encounter Visit Diagnoses Not on filedocumented in this encounter Additional Health Concerns Infection Onset Date Last Indicated Resolved Time CoV-Risk 06/08/2025 06/08/2025 06/19/2025 1:21 AM EDT documented as of this encounter Care Teams Resource Room Special Education Teacher Relationship Specialty Start Date End Date Pcp, Unknown PCP - General 06/08/25 documented as of this encounter Additional Source Comments The information contained in this document represents components of the legal health record. It is not the complete legal health record.[facility]
--- OUTSIDE RECORDS SUMMARY | 2025-07-19 10:54 | XMS_ITS | Clinical Summary ---
Author Organization [facility] Address [address] [place] [address] Care Team Providers Care Speech Pathology Supervisor Name Role Phone Thomas Kam Primary Care Provider [phone] Allergies Active Allergy Reactions Criticality Noted Date [...] EDT - 06/07/2025 4:41 PM EDT Emergency [facility] Emergency Department [address] [place] [address] Ronen Farris MD Abdominal pain (Primary Dx) Discharge Disposition: Home or Self Care from Last 3 Months Social History Tobacco [...] the original result was not included. Department: [facility] Vascular Lab Patient: [id number] (CARLOS GONZALEZ) Patient Location: ED CPT Code: 06941 ICD-9: Referring Physician: RONEN FARRIS Right lower [...] junction Normal Complete Electronically Signed by: Jose dEwards MD, RPVI on 2025-06-07 07:17:51 PM End of Report Procedure Note Jose Edwards MD - 06/07/2025 Department: [facility] Vascular Lab Patient: [id number] (CARLOS GONZALEZ) Patient Location: [facility] CPT Code: 12394 ICD-9: Referring Physician: RONEN FARRIS Right lower [...] for mesenteric ischemia DESCRIPTION: Initial noncontrast localizing gas regulator repairer images were obtained. A timing bolus at [...] for mesenteric ischemia DESCRIPTION: Initial noncontrast localizing gas regulator repairer images were obtained. A timing bolus at [...] iliac stent graft. Fleischner guidelines were followed. Ronen Farris [place] [facility] [place] Final Result * (ABNORMAL) INR (06/07/2025 12:02 PM EDT) Anticoagulant WARFARIN (COUMADIN) 06/07/2025 11:19 AM EDT [facility] Prothrombin Time (PT) 27.7(H) 10.0 - 13.5 seconds 06/07/2025 1:14 PM EDT [facility] INR 2.4 06/07/2025 1:14 PM EDT [facility] Comment:INR Therapeutic Rang es: Standard dose anticoagulant 2.0 to 3.0, High dose anticoagulant 2.5-3.5. Blood Blood specimen / Unknown 06/07/2025 12:02 PM EDT 06/07/2025 12:57 PM EDT Ronen Farris MD LAB BLOOD [place] [address], [place] [address] * Troponin T, High Sensitivity (06/07/2025 10:29 AM EDT) Pathologist [facility] High Sensitivity Troponin T 7 <23 ng/L 06/07/2025 11:34 AM EDT [facility] Delta (Change) NO PREVIOUS RESULT <3 06/07/2025 11:34 AM EDT [facility] Blood Blood specimen / Unknown 06/07/2025 10:29 AM EDT 06/07/2025 11:05 AM EDT Joaquina PEREZ LAB BLOOD [place]AB[place] [address], [place] [address] * (ABNORMAL) Complete Blood Count, with Differential (06/07/2025 10:29 AM EDT) White Blood Cell Count 3.9(L) 4.0 - 11.0 Thou/uL 06/07/2025 11:16 AM [facility] Platelet Count 183 150 - 450 Thou/uL 06/07/2025 11:16 AM [facility] Hemoglobin 12.5(L) 13.0 - 17.7 g/dL 06/07/2025 11:16 AM [facility] Hematocrit 38.3(L) 39.0 - 54.0 % 06/07/2025 11:16 AM [facility] Red Blood Cell Count 4.26(L) 4.50 - 6.20 Mil/uL 06/07/2025 11:16 AM [facility] MCV 90 80 - 100 fL 06/07/2025 11:16 AM [facility] MCH 29.3 27.0 - 31.0 pg 06/07/2025 11:16 AM [facility] MCHC 32.6 30.0 - 36.0 g/dL 06/07/2025 11:16 AM [facility] RDW 15.1(H) 11.5 - 14.5 % 06/07/2025 11:16 AM [facility] MPV 9.7 7.5 - 12.5 fL 06/07/2025 11:16 AM [facility] Neutrophils Auto 51.2 % 06/07/20 11:16 AM [facility] Immature Granulocytes 0.0 % 06/07/2025 11:16 AM [facility] Lymphocytes Auto 38.9 % 06/07/20 11:16 AM [facility] Monocytes Auto 8.9 % 06/07/2025 11:16 AM [facility] Eosinophils Auto 0.5 % 06/07/20 11:16 AM [facility] Basophils Auto 0.5 % 06/07/2025 11:16 AM [facility] Abs Neutrophils Auto 2.01 2.00 - 7.50 Thou/uL 06/07/2025 11:16 AM [facility] Abs Immature Granulocytes 0.00 0.00 - 0.10 Thou/uL 06/07/2025 11:16 AM [facility] Abs Lymphocytes Auto 1.53 1.50 - 4.50 Thou/uL 06/07/2025 11:16 AM [facility] Abs Monocytes Auto 0.35 0.20 - 1.50 Thou/uL 06/07/2025 11:16 AM EDT [facility] Abs Eosinophils Auto 0.02 0.00 - 0.70 Thou/uL 06/07/2025 11:16 AM EDT [facility] Abs Basophils Auto 0.02 0.00 - 0.20 Thou/uL 06/07/2025 11:16 AM EDT [facility] Blood Blood specimen / Unknown 06/07/2025 10:29 AM EDT 06/07/2025 11:05 AM EDT us Joaquina L Sirrine PA LAB BLOOD [place]AB[place] [address], [place] [address] * Lipase (06/07/2025 10:29 AM EDT) Lipase 18 13 - 60 U/L 06/07/2025 11:34 AM EDT [facility] Blood Blood specimen / Unknown 06/07/2025 10:29 AM EDT 06/07/2025 11:05 AM EDT us Joaquina L Sirrine PA LAB BLOOD ORDERABLES Agueda l Result Performing Organization Address City/[facility]/[place] [address], [place] [address] * Hepatic Function Panel (06/07/2025 10:29 AM EDT) Alkaline Phosphatase 107 45 - 128 U/L 06/07/2025 11:34 AM EDT [facility] Aspartate Aminotrans (AST) 31 10 - 55 U/L 06/07/2025 11:34 AM EDT [facility] Alanine Aminotrans (ALT) 34 10 - 55 U/L 06/07/2025 11:34 AM EDT [facility] Bilirubin, Total 0.3 0.2 - 1.0 mg/dL 06/07/2025 11:34 AM EDT [facility] Protein, Total 7.8 6.3 - 8.3 g/dL 06/07/2025 11:34 AM [facility] Albumin 3.9 3.5 - 5.0 g/dL 06/07/2025 11:34 AM [facility] Bilirubin, Direct 0.1 0 - 0.2 mg/dL 06/07/2025 11:34 AM [facility] Globulin 3.9 1.5 - 3.9 g/dL 06/07/2025 11:34 AM [facility] Albumin/Globulin Ratio 1.0 1.0 - 3.0 Ratio 06/07/2025 11:34 AM [facility] Blood Blood specimen / Unknown 06/07/2025 10:29 AM EDT 06/07/2025 11:05 AM EDT Joaquina PEREZ LAB BLOOD ORDERABLES Agueda vincent Result Performing Organization Address City/State/[facility] [place] [address], [address] [address] * (ABNORMAL) Basic Metabolic Panel (06/07/2025 10:29 AM EDT) Glucose 175(H) 65 - 99 mg/dL 06/07/2025 11:34 AM [facility] Comment:Fasting: <100 mg/dL, Non-Fasting: <200 mg/dL (ADA 2004) Blood Urea Nitrogen (BUN) 12 8 - 21 mg/dL 06/07/2025 11:34 AM [facility] Creatinine 1.02 0.50 - 1.30 mg/dL 06/07/2025 11:34 AM [facility] eGFR 89 >59 06/07/2025 11:34 AM [facility] Comment:CKD-EPI (2020) in mL /min/1.73 sq meters. Sodium 136 136 - 145 mmol/L 06/07/2025 11:34 AM [facility] Potassium 3.9 3.4 - 5.3 mmol/L 06/07/2025 11:34 AM [facility] Chloride 103 98 - 107 mmol/L 06/07/2025 11:34 AM EDT [facility] CO2 21(L) 22 - 33 mmol/L 06/07/2025 11:34 AM EDT [facility] Anion Gap 12 7 - 17 06/07/2025 11:34 AM EDT [facility] Calcium 8.8 8.7 - 10.5 mg/dL 06/07/2025 11:34 AM EDT [facility] BUN/Creatinine Ratio 12 10.0 - 25.0 Ratio 06/07/2025 11:34 AM EDT [facility] Blood Blood specimen / Unknown 06/07/2025 10:29 AM EDT 06/07/2025 11:05 AM EDT Joaquina PEREZ LAB BLOOD ORDERABLES Agueda vincent Result [address] [address], [address] [address] * 10 Min ECG 12 lead (06/07/2025 9:45 AM EDT) Ventricular rate 92 BPM EKG [facility] Atrial rate 92 BPM EKG [facility] P-R interval 142 ms EKG [facility] QRS duration 88 ms EKG [facility] Q-T interval 362 ms EKG [facility] QTC calculation (Bazett) 448 ms EKG [facility] P axis 50 degrees EKG [facility] R axis 37 degrees EKG [facility] T axis 21 degrees EKG [facility] 06/07/2025 9:45 AM EDT Narrative EKG [facility] - 06/07/2025 12:05 PM EDT Normal sinus rhythm Normal ECG When compared with ECG of 29-Oct-2024 15:49, No significant change was found Confirmed by Chema Mckeon MD ([id number]) on 06/07/2025 12:05:00 PM Procedure Note Chema Mckeon MD - 06/07/2025 Normal sinus rhythm Normal ECG When compared with ECG of 29-Oct-2024 15:49, No significant change was found Confirmed by Chema Mckeon MD ([id number]) on 06/07/2025 12:05:00 PM us Mandi Tavarez MD ECG ORDERABLES Final Result EKG [facility] from Last 3 Months Insurance [facility] MEDICARE PART A & B Care Teams Speech Pathology Supervisor Relationship Specialty Start Date End Date Thomas Kam PA PCP - General Emergency Medicine 03/03/23
--- OUTSIDE RECORDS SUMMARY | 2025-07-19 10:54 | XMS_ITS | Encounter Summary ---
Author Organization [facility] Address [address] [place] [phone] Phone Care Team Providers Care Medical Secretary Name Role Phone Pcp, Unknown Primary Care Provider Unavailabl e Encounter Details Date Type Department Care Team (Late st Contact Info) Description 06/08/2025 Procedure Pass [facility], Ct Scan - [address] [address] Social History Tobacco Use Types Packs/Day Years [...] 1:10 PM EDT Umu Bai RN * [place] Suicide Severity Rating Scale (Screener/Recent Self-Report) Question [...] documented as of this encounter Care Teams Medical Secretary Relationship Specialty Start Date End Date Pcp, Unknown PCP - General 06/08/25 documented as of this encounter Additional Source Comments The information contained in this document represents components of the legal health record. It is not the complete legal health record.[facility]
--- OUTSIDE RECORDS SUMMARY | 2025-07-19 10:54 | XMS_ITS | Clinical Summary ---
[facility] Organization [facility] Address [address] [place] [address] Care Team Providers Care Machinist Bench Name Role Phone Thomas Kam Primary Care [...] age to complete this topic Care Teams Machinist Bench Relationship Specialty Start Date End Date Thomas Kam PA [address] [place] [address] PCP - General Physician Electric Hoist Operator 02/16/23
--- OUTSIDE RECORDS SUMMARY | 2025-07-19 10:54 | XMS_ITS | Encounter Summary ---
Author Organization [facility] Address [address] [facility] [address] [place] [phone] Phone Care Team Providers Care Day Care Supervisor Name Role Phone Pcp, Unknown Primary Care Provider Unavailabl e Denise Weiner PA-C Primary Care Provider Pcp, Unknown Primary Care Provider Unavailabl e Encounter Details Date Type Department Care Team (Late st Contact Info) Description 05/14/2025 Procedure Pass [facility], Ct Scan - [facility] [address] [place] [address] Social History Tobacco Use Types Packs/Day Years [...] 9:56 AM EDT Clay Yost, BLANCO * [place] Suicide Severity Rating Scale (Screener/Recent Self-Report) Question [...] documented as of this encounter Care Teams Day Care Supervisor Relationship Specialty Start Date End Date Pcp, Unknown PCP - General 05/16/25 06/07/25 Denise Weiner PA-C [address] [place] [phone] [email or web address] PCP - General Physician Thimble Press Operator 05/15/25 05/15/25 Pcp, Unknown PCP - General 06/08/25 documented as of this encounter Additional Source Comments The information contained in this document represents components of the legal health record. It is not the complete legal health record.[facility]
--- OUTSIDE RECORDS SUMMARY | 2025-07-19 10:54 | XMS_ITS | Clinical Summary ---
Author Organization 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 180 tablet 1 01/27/20 25 Active polyethylene glycol (Golytely) 236-22.74-6.74 -5.86 gram solution Take 4L by mouth once for one dose. May substitue any PEG. Starting at 2PM the day before your procedure drink 1 8oz glasses at your own pace until you complete half of the gallon. Finish 2nd half of the gallon at 8PM. 4000 mL 06/17/20 25 Active bisacodyL (DULCOLAX) 5 mg EC tablet Take 2 tablets by mouth right before beginning bowel prep. See instructions provided by the office 2 tablet 06/17/20 25 Active bisacodyL (DULCOLAX) 5 mg EC tablet Take 2 tablets by mouth right before beginning bowel prep. See instructions provided by the office 2 tablet 06/19/20 25 Active polyethylene glycol (Golytely) 236-22.74-6.74 -5.86 gram solution Take 4L by mouth once for one dose. May substitue any PEG. Starting at 2PM the day before your procedure drink 1 8oz glasses at your own pace until you complete half of the gallon. Finish 2nd half of the gallon at 8PM. 4000 mL 06/19/20 25 Active cyclobenzaprine (FLEXERIL) 10 mg tablet Take 1 tablet (10 mg total) by mouth 2 (two) times a day if needed for muscle spasms for up to 20 doses. 20 tablet 07/06/20 25 Active Active Problems Problem Noted Date Diagnosed Date Abdominal pain 05/19/2025 Allergy 05/19/2025 Anemia, unspecified 05/19/2025 Asthma 05/19/2025 Chronic obstructive asthma w ith status asthmaticus ([facility] V24, [facility] V28) 05/19/2025 History of appendectomy 05/19/2025 Overview (05/19/2025): 2004 HTN (hypertension) 05/19/2025 Undiagnosed cardiac murmurs 05/19/2025 Ventral hernia 05/19/2025 C. difficile diarrhea 12/10/2024 HIV (human immunodeficiency virus infection) ([facility] V24, [facility] V28) 11/12/2024 Hypothyroid 11/12/2024 Epilepsy ([facility] V24, [facility] V28) 11/12/2024 DVT (deep venous thrombosis) ([facility] V24, [facility] V28) 11/12/2024 Deep vein thrombosis (DVT) o f both lower extremities ([facility] V24, [facility] V28) 11/12/2024 HLD (hyperlipidemia) 11/12/2024 Type 2 diabetes mellitus, [facility] long-term current use of insulin ([facility] V24, [facility] V28) 11/12/2024 Diverticulitis large intesti ne w/o [...] hyperglycemia, without long-term current use of insulin ([facility] V24, [facility] V28) 04/09/2024 Overview (05/19/2025): DM dx: unclear Glucometer: [employer] Verio Current Diabetes RX: Ozempic 1 mg [...] Diabetes retinal exam: Missed follow-up appt with [facility] in April 2024, recommended patient call to reschedule Patient reports [facility] will not see him due to multiple no-shows 05/24/23 at [facility] No evidence of diabetic [...] by Discern Expert Abdominal aortic aneurysm (AAA) ([facility] V24) 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 Impression and Plan: Stop Vimpat. Encouraged pt to make behavioral health appt. Abnormal CXR 05/07/2019 Overview (05/19/2025): 05/07/19 - CXR Chest Routine [address], [facility] Diag Img Dep't, 12/26/18: Findings: The [...] (05/19/2025): 05/07/19 - - CT Chest Angiography, [facility] Dia Img Dep't, 03/27/19: Findings: [#5.] Bony structures [...] Encounters Date Type Department Care Team Description 07/08/2025 Telephone Gastroenterology - [place] [address] [facility] [address] [facility] [address] [place] [phone] Myrtle Gonzalez MD 07/05/2025 5:25 PM EST - 07/06/2025 1:[address] [facility] Emergency [address] [place] [address] Marcos Alfaro MD Ziebro, John, MD Linnerooth, Warren, MD Left leg swelling (Primary Dx); Left lower quadrant abdominal pain; Acute abdominal pain Discharge Disposition: Home or Self Care 07/01/2025 2:17 PM EST [address] Event [facility] [address] [place] [phone] Sharif Lopez MD Korobkov, Vitaliy, DO 07/01/2025 12:06 PM EST - 07/01/2025 11:59 PM EST Hospital Encounter [facility] [address] [place] [address] Myrtle Gonzalez MD Steele, Matthew G, CRNA Dasilva, John E, MD Abnormal CT scan, colon; Left sided abdominal pain; BRBPR (bright red blood per rectum) Discharge Disposition: Home or Self Care 06/09/2025 Telephone Gastroenterology - [place] [address] [facility] [address] [place] [address] Myrlte Gonzalez MD 05/21/2025 1:00 PM EDT Office Visit Gastroenterology - [address] [facility] [address] [facility] [address] [place] [phone] Pablo Yip PA Left sided abdominal pain (Primary Dx); Abnormal CT scan, colon; Rectal pain; BRBPR (bright red blood per rectum); Diverticulitis large intestine w/o perforation or abscess w/bleeding 05/21/2025 Telephone Gastroenterology - [address] [facility] [address] [address] [place] [phone] Elvin Ha MD from Last 3 Months Surgical History Surgery Date Site/Laterality Comments AAA REPAIR OTHER SURGICAL HISTORY Right lower extremtity bypass COLON SURGERY sigmoid resection due to diverticulitis HERNIA REPAIR Medical History Medical History Date Comments DVT (deep vein thrombosis) in Hypothyroid HIV (human immunodeficiency virus infection) ([facility] V24, [facility] V28) Asthma Diabetes mellitus ([facility] V24, [facility] V28) C. difficile colitis Diverticulosis Social History Tobacco Use Types Packs/Day Years Used Date Smoking Tobacco: Former Cigarettes Tobacco Cessation:Counseling Given: Not Answered Alcohol Use Standard Drinks/Week Comments Never 0 (1 standard drink = 0.6 oz pur e alcohol) Interpersonal Safety Answer Date Record ed Physical Abuse Unrecognized value 07/01/2025 Verbal Abuse Unrecognized value 07/01/2025 Sex and Gender Information Value Date Recorded Sex Assigned at Male 10/13/2024 3:12 PM EST Legal Sex Male 6:15 PM EST Gender Identity Male 10/13/2024 3:12 PM EST Sexual Orientation Lesbian or Chaidez 01/13/2025 5: 56 PM EDT Obstetrics History Last Filed Vital Signs Vital Sign Reading Time Taken Comments Blood Pressure 110/77 07/05/2025 9:20 PM EST Pulse 78 07/05/2025 9:20 PM EST Temperature 36.9 C (98.4 F) 07/05/2025 9:20 PM EST Respiratory Rate 16 07/05/2025 9:20 PM EST Oxygen Saturation 97% 07/05/2025 9:20 PM EST Inhaled Oxygen Concentration - - Weight 80.2 kg (176 lb 12.8 oz) 07/05/2025 4:33 PM EST Height 175.3 cm (5' 9 ) 07/05/2025 4:33 PM EST Body Mass Index 26.11 07/05/2025 4:33 PM EST Plan of Treatment Health Maintenance [...] 11/05/2021 Diabetes: Annual GFR (Glomerular Filtration Rate) 07/05/2026 07/05/2025, 06/07/2025, 06/07/2025, Additional history exists Hypertension/CHF/CAD Annual BMP Blood Test 07/05/2026 07/05/2025, 06/07/2025, 06/07/2025, Additional history exists Meningococcal ACWY Vaccine (4 - Risk 2-dose series) 01/24/2029 01/25/2024, 11/18/2018, 06/19/2017 Cholesterol Screening (Lipid Panel) 06/04/2030 06/04/2025, 06/04/2025, 12/09/2024, Additional history exists Colorectal Cancer Screening: Colonoscopy 07/01/2030 07/01/2025, 09/20/2021 DTaP,Tdap,and Td Vaccines (4 - Td [...] Name Priority Date/Time Associated Diagnosis Comments CT ANGIO CHEST/ABDOMEN/PELVIS WO AND/OR W CONTRAST STAT 07/05/2025 11:31 PM EST Left lower quadrant abdominal pain LACTATE STAT 07/05/2025 11:24 PM EST ECG 12-LEAD STAT 07/05/2025 10:56 PM EST URINALYSIS WITH REFLEX MICROSCOPIC STAT 07/05/2025 7:57 PM EST URINALYSIS WITH REFLEX MICROSCOPIC STAT 07/05/2025 7:57 PM EST XR CHEST 1 VIEW STAT 07/05/2025 6:17 PM EST VAS US DUPLEX LOWER EXT VENOUS LEFT STAT 07/05/2025 6:15 PM EST Left leg swelling CBC WITH AUTO DIFFERENTIAL STAT 07/05/2025 4:48 PM EST LIPASE STAT 07/05/2025 4:48 PM EST COMPREHENSIVE METABOLIC PANEL STAT 07/05/2025 4:48 PM EST CBC AND DIFFERENTIAL STAT 07/05/2025 4:48 PM EST COLONOSCOPY Routine 07/01/2025 2:[address] scan, colon Left sided abdominal pain BRBPR (bright red blood per rectum) from Last 3 Months Results * CT Angio Chest/Abdomen/Pelvis wo and/or w Contrast (07/05/2025 11:31 PM EST) Anatomical Region Laterality Modality Body Computed Tomogra phy 07/06/2025 12:1 7 AM EST Impressions 07/06/2025 12:17 AM EST 1. Aortoiliac endograft is noted, unremarkable. Otherwise unremarkable CTA. No acute vascular findings. 2. Bladder wall thickening. Correlate for cystitis. Otherwise no acute thoracic or abdominopelvic findings. This document has been electronically signed by: Thomas Luna MD on 07/06/2025 00:17:31 Narrative 07/06/2025 12:17 AM EST INDICATION: L sided abd pain, rad to back, hx AAA repair, colon resection, recent colonoscopy CT angiography chest, abdomen and pelvis with contrast. 3-D postprocessing. Comparison: CT/SR - CT ABD PEL W CONTRAST - 01/14/25 09:40 EDT Findings: Normal caliber thoracic aorta and great vessels. Normal caliber abdominal aorta. Aortoiliac endograft is again noted, unremarkable. The visualized thyroid and mediastinum are unremarkable. The heart is normal size. The lungs are clear. Prior cholecystectomy. Unremarkable solid organs. 3 mm focal calcification spleen, likely calcified granuloma. No bowel obstruction, pneumoperitoneum, or pneumatosis. Prior appendectomy. Prior ventral hernia repair. Bladder wall thickening. The bones are intact. Procedure Note Thomas Luna - 07/06/2025 INDICATION: L sided abd pain, rad to back, hx AAA repair, colon resection, recent colonoscopy CT angiography chest, abdomen and pelvis with contrast. 3-D postprocessing. Comparison: CT/SR - CT ABD PEL W CONTRAST - 01/14/25 09:40 EDT Findings: Normal caliber thoracic aorta and great vessels. Normal caliber abdominal aorta. Aortoiliac endograft is again noted, unremarkable. The visualized thyroid and mediastinum are unremarkable. The heart is normal size. The lungs are clear. Prior cholecystectomy. Unremarkable solid organs. 3 mm focalcalcification spleen, likely calcified granuloma. No bowel obstruction, pneumoperitoneum, or pneumatosis. Priorappendectomy. Prior ventral hernia repair. Bladder wall thickening. The bones are intact. IMPRESSION: 1. Aortoiliac endograft is noted, unremarkable. Otherwise unremarkable CTA. No acute vascular findings. 2. Bladder wall thickening. Correlate for cystitis. Otherwise no acute thoracic or abdominopelvic findings. This document has been electronically signed by: Thomas Luna MD on 07/06/2025 00:17:31 Marcos Alfaro MD [facility] CT PROCEDURES Final Result * Lactate (07/05/2025 11:24 PM EST) Lactate 1.9 0.4 - 2.0 mmol/L LAB CHEMISTRY METHOD 07/05/2025 11:[address] [facility] Blood Venous blood specimen / Unknown Venipuncture / Unknown 07/05/2025 11:24 PM EST 07/05/2025 11:31 PM EST Marcos Alfaro MD LAB BLOOD ORDERABLES Final Resul t [facility] [address] [place] [address], [place] [phone] * 12-Lead ECG (07/05/2025 10:56 PM EST) Ventricular Rate ECG 74 BPM GEMUSE Atrial Rate 74 BPM GEMUSE P-R Interval 158 ms GEMUSE QRS Duration 94 ms GEMUSE Q-T Interval 410 ms GEMUSE QTc 455 ms GEMUSE P Wave Inchelium 35 degrees GEMUSE R [place] 28 degrees GEMUSE T Inchelium 21 degrees GEMUSE ECG Interpretation Normal sinus rhythm Normal ECG When compared with ECG of 26-JUN-2021 15:42, No significant change was found Confirmed by MD Avery, [place] ([id number]) on 07/06/2025 4:58:39 PM GEMUSE 07/05/2025 10:5 6 PM EST 07/06/2025 4:58 PM EST Marcos Alfaro MD ECG ORDERABLES Final Result Performing Organization Address City/[facility]/ZIP Co de Phone Number GEMUSE * Urinalysis with reflex microscopic (07/05/2025 7:57 PM EST) [facility] [place] Urine 1.020 1.003 - 1.030 LAB URINALYSIS - AUTOMATED METHOD 07/05/2025 10:35 PM [facility] pH, Urine 7.0 5.0 - 8.0 pH LAB URINALYSIS - AUTOMATED METHOD 07/05/2025 10:35 PM [facility] Leukocytes, Urine Negative Negative LAB URINALYSIS - AUTOMATED METHOD 07/05/2025 10:35 PM [facility] Nitrite, Urine Negative Negative LAB URINALYSIS - AUTOMATED METHOD 07/05/2025 10:35 PM [facility] Protein, Urine Trace <=Trace mg/dL LAB URINALYSIS - AUTOMATED METHOD 07/05/2025 10:35 PM [facility] Glucose, Urine Negative Negative mg/dL LAB URINALYSIS - AUTOMATED METHOD 07/05/2025 10:35 PM EST [facility] Ketones, Urine Negative Negative mg/dL LAB URINALYSIS - AUTOMATED METHOD 07/05/2025 10:35 PM [facility] Urobilinogen, Urine 0.2 0.2 - 1.0 mg/dL LAB URINALYSIS - AUTOMATED METHOD 07/05/2025 10:35 PM EST [facility] Bilirubin, Urine Negative Negative LAB URINALYSIS - AUTOMATED METHOD 07/05/2025 10:35 PM [facility] Blood, Urine Negative Negative LAB URINALYSIS - AUTOMATED METHOD 07/05/2025 10:35 PM [facility] Urine Urine specimen obtained by clean catch procedure / Unknown Non-blood Collection / Unknown 07/05/2025 7:57 PM EST 07/05/2025 10:27 PM EST us Marcos Alfaro MD LAB URINE ORDERABLES Final Resul t [facility] [address] [place] [address], * XR Chest 1 View (07/05/2025 6:17 PM EST) Anatomical Region Laterality Modality Body Radiographic Chantelle ging 07/06/2025 9:37 AM EST Impressions 07/06/2025 9:37 AM EST FINDINGS/IMPRESSION: Lungs are clear. No pleural effusion or pneumothorax. Cardiac silhouette and bones are normal. -------- FINAL REPORT -------- Dictated By: DEWAYNE AVILA Dictated Date: 07/06/2025 09:37 ET Assigned Physician: DEWAYNE AVILA Reviewed and Electronically Signed By: DEWAYNE AVILA Signed Date: 07/06/2025 09:37 ET Workstation ID: [id number] Transcribed By: Self Edit Transcribed Date: 07/06/2025 09:37 ET Narrative 07/06/2025 9:37 AM EST XR CHEST 1 VIEW INDICATION: Pain TECHNIQUE: XR CHEST 1 VIEW COMPARISON: 04/25/2021 Procedure Note Dewayne Avila MD - 07/06/2025 XR CHEST 1 VIEW INDICATION: Pain TECHNIQUE: XR CHEST 1 VIEW COMPARISON: 04/25/2021 IMPRESSION: FINDINGS/IMPRESSION: Lungs are clear. No pleural effusion orpneumothorax. Cardiac silhouette and bones are normal. -------- FINAL REPORT -------- Dictated By: DEWAYNE AVILA Dictated Date: 07/06/2025 09:37 ET Assigned Physician: DEWAYNE AVILA Reviewed and Electronically Signed By: DEWAYNE AVILA Signed Date: 07/06/2025 09:37 ET Workstation ID: [id number] Transcribed By: Self Edit Transcribed Date: 07/06/2025 09:37 ET Marcos Alfaro MD IMG XR PROCEDURES Final Result * Vascular US Duplex Lower Extremity Venous Left (07/05/2025 6:15 PM EST) Anatomical Region Laterality Modality Vascular, Abdomen Ultrasound 07/05/2025 6:15 PM EST Impressions 07/05/2025 6:15 PM EST NO LEFT LOWER EXTREMITY DEEP VENOUS THROMBOSIS. -------- FINAL REPORT -------- Dictated By: Oscar Tavarez Dictated Date: 07/05/2025 18:15 ET Assigned Physician: Oscar Tavarez Reviewed and Electronically Signed By: Oscar Tavarez Signed Date: 07/05/2025 18:15 ET Workstation ID: [id number] Transcribed By: Self Edit Transcribed Date: 07/05/2025 18:15 ET Narrative 07/05/2025 6:15 PM EST Ultrasound venous duplex left lower extremity INDICATION: DVT Hx edema pain in extremities TECHNIQUE: 2-D and color Doppler imaging of the left lower extremity venous vasculature with compression and augmentation maneuvers. COMPARISON: No priors available. FINDINGS: There is normal flow, compression, and augmentation from the common femoral through the popliteal vein. No focal fluid collection. Procedure Note Oscar Tavarez MD - 07/05/2025 Ultrasound venous duplex left lower extremity INDICATION: DVT Hx edema pain in extremities TECHNIQUE: 2-D and color Doppler imaging of the left lower extremityvenous vasculature with compression and augmentation maneuvers. COMPARISON: No priors available. FINDINGS: There is normal flow, compression, and augmentation from the commonfemoral through the popliteal vein. No focal fluid collection. IMPRESSION: NO LEFT LOWER EXTREMITY DEEP VENOUS THROMBOSIS. -------- FINAL REPORT -------- Dictated By: Oscar Tavarez Dictated Date: 07/05/2025 18:15 ET Assigned Physician: Oscar Tavarez Reviewed and Electronically Signed By: Oscar Tavarez Signed Date: 07/05/2025 18:15 ET Workstation ID: [id number] Transcribed By: Self Edit Transcribed Date: 07/05/2025 18:15 ET us Marcos Alfaro MD CV VASCULAR PROCEDURES Final Res ult * (ABNORMAL) CBC auto differential (07/05/2025 4:48 PM EST) WBC 5.4 4.8 - 10.8 K/mcL LAB HEMETOLOGY METHOD 07/05/2025 5:26 PM [facility] RBC 4.30(L) 4.50 - 5.50 M/mcL LAB HEMETOLOGY METHOD 07/05/2025 5:26 PM [facility] Hemoglobin 12.6(L) 13.5 - 17.5 g/dL LAB HEMETOLOGY METHOD 07/05/2025 5:26 PM [facility] Hematocrit 38.6(L) 42.0 - 54.0 % LAB HEMETOLOGY METHOD 07/05/2025 5:26 PM [facility] MCV 90.6 79.0 - 98.0 FL LAB HEMETOLOGY METHOD 07/05/2025 5:26 PM [facility] MCH 29.6 27.0 - 32.0 pcg LAB HEMETOLOGY METHOD 07/05/2025 5:26 PM [facility] MCHC 32.6 32.0 - 37.0 g/dL LAB HEMETOLOGY METHOD 07/05/2025 5:26 PM [facility] RDW 14.2 11.0 - 15.0 % LAB HEMETOLOGY METHOD 07/05/2025 5:26 PM [facility] Platelets 175 130 - 400 K/mcL LAB HEMETOLOGY METHOD 07/05/2025 5:26 PM [facility] MPV 9.5 7.0 - 11.0 FL LAB HEMETOLOGY METHOD 07/05/2025 5:26 PM [facility] NRBC 0.0 <1.0 % LAB HEMETOLOGY METHOD 07/05/2025 5:26 PM [facility] NRBC Absolute 0.00 <0.10 K/mcL LAB HEMETOLOGY METHOD 07/05/2025 5:26 PM [facility] Neutrophils Relative 43.0 % LAB HEMETOLOGY METHOD 07/05/2025 5:26 PM [facility] Lymphocytes Relative 44.7 % LAB HEMETOLOGY METHOD 07/05/2025 5:26 PM [facility] Monocytes Relative 10.9 % LAB HEMETOLOGY METHOD 07/05/2025 5:26 PM [facility] Eosinophils Relative 0.6 % LAB HEMETOLOGY METHOD 07/05/2025 5:26 PM [facility] Basophils Relative 0.6 % LAB HEMETOLOGY METHOD 07/05/2025 5:26 PM [facility] Immature Granulocytes Relative 0.2 % LAB HEMETOLOGY METHOD 07/05/2025 5:26 PM [facility] Neutrophils Absolute 2.32 1.50 - 7.00 K/mcL LAB HEMETOLOGY METHOD 07/05/2025 5:26 PM [facility] Lymphocytes Absolute 2.41 1.00 - 5.00 K/mcL LAB HEMETOLOGY METHOD 07/05/2025 5:26 PM EST [facility] Monocytes Absolute 0.59 0.20 - 1.00 K/mcL LAB HEMETOLOGY METHOD 07/05/2025 5:26 PM EST [facility] Eosinophils Absolute 0.03 0.00 - 0.50 K/mcL LAB HEMETOLOGY METHOD 07/05/2025 5:26 PM EST [facility] Basophils Absolute 0.03 0.00 - 0.20 K/mcL LAB HEMETOLOGY METHOD 07/05/2025 5:26 PM EST [facility] Immature Granulocytes Absolute 0.01 0.00 - 0.03 K/[facility] LAB HEMETOLOGY METHOD 07/05/2025 5:26 PM EST [facility] Blood Venous blood specimen / Unknown Venipuncture / Unknown 07/05/2025 4:48 PM EST 07/05/2025 5:19 PM EST us Chicho Cortez MD LAB BLOOD ORDERABLES Final Resu lt [facility] [address] [place] [address], [place] [phone] * Lipase (07/05/2025 4:48 PM EST) Lipase 17 13 - 75 unit/L LAB CHEMISTRY METHOD 07/05/2025 5:44 PM EST [facility] Blood Venous blood specimen / Unknown Venipuncture / Unknown 07/05/2025 4:48 PM EST 07/05/2025 5:19 PM EST us Chicho Cortez MD LAB BLOOD ORDERABLES Final Resu lt [facility] [address] [place] [address], [place] [phone] * (ABNORMAL) Comprehensive metabolic panel (07/05/2025 4:48 PM EST) Sodium 135 133 - 145 mmol/L LAB CHEMISTRY METHOD 07/05/2025 5:46 PM [facility] Potassium 3.8 3.5 - 5.5 mmol/L LAB CHEMISTRY METHOD 07/05/2025 5:46 PM [facility] Chloride 105 96 - 110 mmol/L LAB CHEMISTRY METHOD 07/05/2025 5:46 PM [facility] CO2 28 21 - 32 mmol/L LAB CHEMISTRY METHOD 07/05/2025 5:46 PM [facility] Anion Gap 2(L) 3 - 11 LAB CHEMISTRY METHOD 07/05/2025 5:46 PM [facility] Glucose 119(H) 70 - 100 mg/dL LAB CHEMISTRY METHOD 07/05/2025 5:46 PM [facility] BUN 13 5 - 25 mg/dL LAB CHEMISTRY METHOD 07/05/2025 5:46 PM [facility] Creatinine 1.15 0.70 - 1.30 mg/dL LAB CHEMISTRY METHOD 07/05/2025 5:46 PM [facility] eGFR 77 >=60 mL/min/1. 73m2 LAB CHEMISTRY METHOD 07/05/2025 5:46 PM [facility] Comment:Calculation based on the Chronic Kidney Disease Epidemiology Collaboration (CKD-EPI) equation refit without adjustment for race. BUN/Creatinine Ratio 11.3 LAB CHEMISTRY METHOD 07/05/2025 5:46 PM [facility] Calcium 9.0 8.5 - 10.5 mg/dL LAB CHEMISTRY METHOD 07/05/2025 5:46 PM [facility] AST (SGOT) 21 10 - 42 unit/L LAB CHEMISTRY METHOD 07/05/2025 5:46 PM [facility] ALT (SGPT) 45 10 - 60 unit/L LAB CHEMISTRY METHOD 07/05/2025 5:46 PM EST [facility] Alkaline Phosphatase 112 42 - 121 unit/L LAB CHEMISTRY METHOD 07/05/2025 5:46 PM EST [facility] Total Protein 8.5(H) 6.0 - 8.0 g/dL LAB CHEMISTRY METHOD 07/05/2025 5:46 PM EST [facility] Albumin 3.7 3.2 - 5.0 g/dL LAB CHEMISTRY METHOD 07/05/2025 5:46 PM EST [facility] Total Bilirubin 0.4 0.0 - 1.4 mg/dL LAB CHEMISTRY METHOD 07/05/2025 5:46 PM EST [facility] Blood Venous blood specimen / Unknown Venipuncture / Unknown 07/05/2025 4:48 PM EST 07/05/2025 5:19 PM EST Chicho Cortez MD LAB BLOOD ORDERABLES Final Resu lt [facility] [address] [place] [address], * COLONOSCOPY Anesthesia - [facility]; [facility] ENDOSCOPY (07/01/2025 2:43 PM EST) Anatomical Region Laterality Modality Endoscopy 07/01/2025 2:27 PM EST Impressions 07/01/2025 2:45 PM EST - One diminutive polyp in the sigmoid colon, removed with a cold snare. Complete resection. Polyp tissue not retrieved. - Patent end-to-end colo-colonic anastomosis, characterized by healthy appearing mucosa. - Diverticulosis in the entire examined colon. - Internal hemorrhoids. Recommendation: - Await pathology results. - Repeat colonoscopy in 5 years for surveillance. Narrative 07/01/2025 2:[address] [facility] GI Patient Name: Jerome Hayden Procedure Date: 07/01/2025 2:27 PM Date of : 1975 Age: 49 Gender: Male Note Status: Finalized Attending MD: Myrtle Gonzalez MD, Procedure Date No Time: 07/01/2025 Procedure: Colonoscopy Indications: Abnormal CT of the GI tract Providers: Myrtle Gonzalez MD Referring MD: Myrtle Gonzalez MD Medicines: Monitored Anesthesia Care Complications: No immediate complications. Estimated blood loss: Minimal. Estimated Blood Loss: Estimated blood loss was minimal. Procedure: Pre-Anesthesia Assessment: - Prior to the procedure, a History and Physical was performed, and patient medications and allergies were reviewed. The patient is competent. The risks and benefits of the procedure and the sedation options and risks were discussed with the patient. All questions were answered and informed consent was obtained. Patient identification and proposed procedure were verified by the physician, the nurse, the third officer and the mold tooling technician in the pre-procedure area in the endoscopy suite. Mental Status Examination: alert and oriented. Airway Examination: normal oropharyngeal airway and neck mobility. Respiratory Examination: clear to auscultation. CV Examination: normal. Prophylactic Antibiotics: The patient does not require prophylactic antibiotics. Prior Anticoagulants: The patient has taken no anticoagulant or antiplatelet agents. ASA Grade Assessment: II - A patient with mild systemic disease. After reviewing the risks and benefits, the patient was deemed in satisfactory condition to undergo the procedure. The anesthesia plan was to use monitored anesthesia care (MAC). Immediately prior to administration of medications, the patient was re-assessed for adequacy to receive sedatives. The heart rate, respiratory rate, oxygen saturations, blood pressure, adequacy of pulmonary ventilation, and response to care were monitored throughout the procedure. The physical status of the patient was re-assessed after the procedure. After I obtained informed consent, the scope was passed under direct vision. Throughout the procedure, the patient's blood pressure, pulse, and oxygen saturations were monitored continuously. The Olympus Colonoscope was introduced through the anus and advanced to the cecum, identified by appendiceal orifice and ileocecal valve. The colonoscopy was performed without difficulty. The patient tolerated the procedure well. The quality of the bowel preparation was good. Findings: The perianal and digital rectal examinations were normal. A diminutive polyp was found in the sigmoid colon. The polyp was sessile. The polyp was removed with a cold snare. Resection was complete, but the polyp tissue was not retrieved. Estimated blood loss was minimal. There was evidence of a prior end-to-end colo-colonic anastomosis in the distal sigmoid colon. This was patent and was characterized by healthy appearing mucosa. The anastomosis was traversed. Many small and large-mouthed diverticula were found in the entire colon. Internal hemorrhoids were found during retroflexion. The hemorrhoids were Grade II (internal hemorrhoids that prolapse but reduce spontaneously). Procedure Code(s): --- Professional --- 79485, Colonoscopy, flexible; with removal of tumor(s), polyp(s), or other lesion(s) by snare technique Diagnosis Code(s): --- Professional --- D12.5, Benign neoplasm of sigmoid colon R93.3, Abnormal findings on diagnostic imaging of other parts of digestive tract CPT copyright 2020 [employer]. All rights reserved. The codes documented in this report are preliminary and upon men's basketball coach review may be revised to meet current compliance requirements. Myrtle Gonzalez MD 07/01/2025 2:45:55 PM This report has been signed electronically.Myrtle Gonzalez MD Number of Addenda: 0 Note Initiated On: 07/01/2025 2:27 PM Scope Withdrawal Time: 0 hours 6 minutes 45 seconds Scope In: 2:33:42 PM Scope Out: 2:42:28 PM Endoscopy Department at [facility] - [address] [place] [id number] Procedure Note Myrtle Gonzalez MD - 07/01/2025 [facility] GI Patient Name: Jerome Hayden Procedure Date: 07/01/2025 2:27 PM Date of : 1975 Age: 49 Gender: Male Note Status: Finalized Attending MD: Myrtle Gonzalez MD, Procedure Date No Time: 07/01/2025 Procedure: Colonoscopy Indications: Abnormal CT of the GI tract Providers: Myrtle Gonzalez MD Referring MD: Myrtle Gonzalez MD Medicines: Monitored Anesthesia Care Complications: No immediate complications. Estimated blood loss: Minimal. Estimated Blood Loss: Estimated blood loss was minimal. Procedure: Pre-Anesthesia Assessment: - Prior to the procedure, a History and Physicalwas performed, and patient medications and allergieswere reviewed. The patient is competent. The risks and benefits of the procedure and the sedation optionsand risks were discussed with the patient. Allquestions were answered and informed consent was obtained. Patient identification and proposed procedure were verified by the physician, the nurse, theanesthetist and the mold tooling technician in the pre-procedure area in the endoscopy suite. Mental Status Examination: alertand oriented. Airway Examination: normal oropharyngeal airway and neck mobility. Respiratory Examination: clear to auscultation. CV Examination: normal. Prophylactic Antibiotics: The patient does notrequire prophylactic antibiotics. Prior Anticoagulants: The patient has taken no anticoagulant or antiplatelet agents. ASA Grade Assessment: II - A patient withmild systemic disease. After reviewing the risks and benefits, the patient was deemed in satisfactory condition to undergo the procedure. The anesthesia plan was to use monitored anesthesia care (MAC). Immediately prior to administration of medications, the patient was re-assessed for adequacy to receive sedatives. The heart rate, respiratory rate, oxygen saturations, blood pressure, adequacy of pulmonary ventilation, and response to care were monitored throughout the procedure. The physical status ofthe patient was re-assessed after the procedure. After I obtained informed consent, the scope was passed under direct vision. Throughout theprocedure, the patient's blood pressure, pulse, and oxygen saturations were monitored continuously. TheOlympus Colonoscope was introduced through the anus and advanced to the cecum, identified by appendiceal orifice and ileocecal valve. The colonoscopy was performed without difficulty. The patient tolerated the procedure well. The quality of the bowel preparation was good. Findings: The perianal and digital rectal examinations were normal. A diminutive polyp was found in the sigmoid colon.The polyp was sessile. The polyp was removed with acold snare. Resection was complete, but the polyp tissue was not retrieved. Estimated blood loss wasminimal. There was evidence of a prior mys-mj-mdnoqkr-colonic anastomosis in the distal sigmoid colon. This was patent and was characterized by healthy appearing mucosa. The anastomosis was traversed. Many small and large-mouthed diverticula were foundin the entire colon. Internal hemorrhoids were found duringretroflexion. The hemorrhoids were Grade II (internal hemorrhoids that prolapse but reduce spontaneously). Procedure Code(s): --- Professional --- 04441, Colonoscopy, flexible; with removal of tumor(s), polyp(s), or other lesion(s) by snare technique Diagnosis Code(s): --- Professional --- D12.5, Benign neoplasm of sigmoid colon R93.3, Abnormal findings on diagnostic imaging of other parts of digestive tract CPT copyright 2020 [employer]. All rights reserved. The codes documented in this report are preliminary and upon men's basketball coach reviewmay be revised to meet current compliance requirements. Myrtle Gonzalez MD 07/01/2025 2:45:55 PM This report has been signed electronically.Myrtle Gonzalez MD Number of Addenda: 0 Note Initiated On: 07/01/2025 2:27 PM Scope Withdrawal Time: 0 hours 6 minutes 45 seconds Scope In: 2:33:42 PM Scope Out: 2:42:28 PM Endoscopy Department at [facility] - [address] [place] [phone] IMPRESSION: - One diminutive polyp in the sigmoid colon, removed with a cold snare. Complete resection. Polyp tissue not retrieved. - Patent end-to-end colo-colonic anastomosis, characterized by healthy appearing mucosa. - Diverticulosis in the entire examined colon. - Internal hemorrhoids. Recommendation: - Await pathology results. - Repeat colonoscopy in 5 years for surveillance. 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
--- OUTSIDE RECORDS SUMMARY | 2025-07-19 10:54 | XMS_ITS | Encounter Summary ---
Author Organization [facility] Address [address] [place] [phone] Phone Care Team Providers Care Take Out Waiter Name Role Phone Pcp, Unknown Primary Care Provider Unavailabl e Encounter Details Date Type Department Care Team (Late st Contact Info) Description 07/13/2025 Procedure Pass [facility], Ct Scan - [address] [address] Social History Tobacco Use Types Packs/Day Years [...] Author No Risk Indicated 07/13/2025 12:52 PM Lizet Lolyd RN * [place] Suicide Severity Rating Scale (Screener/Recent Self-Report) Question Answer Date of Assessment Author 1. Wish to be (Past 1 Month) No 12:52 PM Lizet Lloyd, BLANCO 2. Non-Specific Active Suici rylan Thoughts (Past 1 Month) No 07/13/2025 12:52 PM Lizet Lloyd , RN 6. Suicidal Behavior (Lifetime) No 12:52 PM Lizet Lloyd, BLANCO documented as of this encounter Plan of Treatment Not on file documented as of this encounter Visit Diagnoses Not on filedocumented in this encounter Care Teams Take Out Waiter Relationship Specialty Start Date End Date Pcp, Unknown PCP - General 06/08/25 documented as of this encounter Additional Source Comments The information contained in this document represents components of the legal health record. It is not the complete legal health record.[facility]
[2025-07-19 11:45] LABS: MANUAL DIFF FLAG NO
[2025-07-19 11:47] LABS: Hematocrit 39.5 % (42.0-52.0); Hemoglobin 13.0 g/dl (14.0-18.0); Imm Gran Abs Auto 0.01 X10*3/uL (0.00-0.03); Imm Gran Pct Auto 0.2 % (0.0-0.4); Lymphocytes Absolute Auto 1.5 X10*3/uL (1.2-4.9); Mean Corpuscular HGB Conc 32.9 g/dl (31.0-36.0); Mean Corpuscular Hemoglobin 30.0 pg (27.0-33.0); Mean Corpuscular Volume 91.0 fL (80.0-98.0); NRBC Abs Auto 0.000 X10*3/uL (0.0-0.012); NRBC Pct Auto 0.0 /100WBC (0.0-0.2); Platelet Count 179 X10*3/uL (160-400); Red Blood Count 4.34 X10*6/uL (4.60-5.80); White Blood Count 4.3 X10*3/uL (4.8-10.8)
[2025-07-19 12:00] LABS: Alanine Aminotransferase 29 U/L (0-40); Albumin Level 4.4 g/dL (3.5-5.0); Alkaline Phosphatase 117 U/L (39-117); Anion Gap 14 (12-20); Aspartate Amino Transferase 31 U/L (5-37); Blood Urea Nitrogen 15 mg/dL (9-16); Calcium 9.4 mg/dL (8.4-10.2); Carbon Dioxide 22 mmol/L (22-29); Chloride 107 mmol/L (96-108); Creatinine Clr Calc Pharmacy 67.0; Estimated Glomerular Filt Rate > 60; Potassium 4.1 mmol/L (3.3-5.1); Sodium 139 mmol/L (135-145); Total Protein 9.1 g/dL (6.5-8.0)
[2025-07-19] MEDS: iohexoL 350 MG/ML 100 ML INFUS..BTL 85 ML IV (12:16)
[2025-07-19 12:20] VITALS: BP 102/63; PULSE 81; RESP 16; TEMP 36.8; O2SAT 100
[2025-07-19 12:22] LABS: Lipase 14 U/L (8-78); Magnesium 2.1 mg/dL (1.6-2.6)
[2025-07-19 12:31] LABS: Resp Syncy Virus RNA Qual PCR NEGATIVE (Negative); SARS COV2 PCR INHOUSE NEGATIVE (Negative)
[2025-07-19 12:39] LABS: OBS Int Ctl Valid YES; OBS1 NEGATIVE (NEGATIVE)
[2025-07-19 12:42] LABS: Appearance Urine Cloudy; Glucose Urine UA >=1000 mg/dL (Negative); PH 7.0 (5.0-9.0); Specific Gravity - Urine >= 1.030 (1.005-1.025); UMIC TRIGGER UACC YES
[2025-07-19 12:44] LABS: INTERNATIONAL NORM RATIO 2.0 (0.9-1.1); Prothrombin Time 24.0 SEC (11.2-13.5)
--- NOTE | 2025-07-19 12:44 | ED.ABDPAIN ---
HPI - Abdominal Pain General Chief Complaint: Abdominal Pain Stated Complaint: Stomach Pain Time Seen by Provider: 07/19/25 11:25 Source: patient, RN notes reviewed and old records reviewed Mode of arrival: ambulatory History of Present Illness ED Provider: Kaylin Biswas PA-C HPI narrative: 49-year-old Cypriot-speaking male with a past medical history AAA, diabetes, seizures, HIV on HAART, DVT on Coumadin, diverticulitis, presenting to the ED complaining of diffuse abdominal pain, nausea, diarrhea, black stool, and decreased p.o. intake x few days worsening over the past month. Also reports subjective fever and chills. Denies dysuria/hematuria, constipation, CP / SOB Related Data Home Medications ?Medication ?Instructions ?Recorded ?Confirmed albuterol sulfate 90 mcg/actuation 2 inh inhalation Q4H PRN 06/26/24 09/25/24 aerosol inhaler (Ventolin HFA) wheezing/sob atorvastatin 80 mg tablet 80 mg PO DAILY 06/26/24 09/25/24 cholecalciferol (vitamin D3) 50 50 mcg PO DAILY 06/26/24 09/25/24 mcg (2,000 unit) capsule darunavir 800 mg-cobicistat 150 mg 1 tab PO DAILY 06/26/24 09/25/24 tablet (Prezcobix) empagliflozin 25 mg tablet 25 mg PO DAILY 06/26/24 09/25/24 (Jardiance) famotidine 20 mg tablet 40 mg PO DAILY 06/26/24 09/25/24 lacosamide 100 mg tablet (Vimpat) 100 mg PO BID 06/26/24 09/25/24 levothyroxine 25 mcg tablet 25 mcg PO DAILY@0600 06/26/24 09/25/24 pantoprazole 40 mg tablet,delayed 40 mg PO DAILY@0630 06/26/24 09/25/24 release raltegravir 600 mg tablet 600 mg PO BID 06/26/24 09/25/24 (Isentress HD) tenofovir disoproxil fumarate 300 300 mg PO DAILY 06/26/24 09/25/24 mg tablet trazodone 150 mg tablet 150 mg PO BEDTIME 06/26/24 09/25/24 semaglutide 1 mg/dose (4 mg/3 mL) 1 mg subcut TU 09/25/24 09/25/24 subcutaneous pen injector (Ozempic) warfarin 10 mg tablet 10 mg PO DAILY 09/25/24 09/25/24 Previous Rx's ?Medication ?Instructions ?Recorded fondaparinux 7.5 mg/0.6 mL 7.5 mg (0.6 mL) subcut Q24H #0 mL 09/30/24 subcutaneous solution syringe amoxicillin 875 mg-potassium 1 tab PO BID #16 tabs 04/14/25 clavulanate 125 mg tablet ondansetron HCl 4 mg tablet 4 mg PO Q8H #20 tabs 04/28/25 morphine 10 mg capsule,extended 10 mg PO DAILY PRN pain #4 caps 05/17/25 release pellets levofloxacin 750 mg tablet 750 mg PO Q24H #6 tabs 06/16/25 metronidazole 500 mg tablet 500 mg PO Q8H 7 days #20 tabs 06/16/25 morphine 15 mg immediate release 15 mg PO Q8H PRN pain #10 tabs 06/16/25 tablet ondansetron 4 mg disintegrating 4 mg PO Q8H PRN nausea and 06/16/25 tablet vomiting #10 tabs azithromycin 250 mg tablet See Rx Instructions PO .COMPLEX #6 07/19/25 tabs Allergies Allergy/AdvReac Type Severity Reaction Status Date / Time influenza virus vaccine, Allergy Severe GUILLIAN Verified 07/19/25 10:23 specific (FLU VACCINE) BARRE HX. tramadol (TRAMADOL) Allergy Severe SEIZURES Verified 07/19/25 10:23 acetaminophen (From PERCOCET) Allergy Intermediate ITCHING Verified 07/19/25 10:23 carbamazepine (From TEGRETOL) Allergy Intermediate HALLUCINATI Verified 07/19/25 10:23 ONS lamotrigine (From LAMICTAL) Allergy Intermediate ITCHING Verified 07/19/25 10:23 metoclopramide (From REGLAN) Allergy Intermediate ITCHY Verified 07/19/25 10:23 oxycodone (From PERCOCET) Allergy Intermediate ITCHING Verified 07/19/25 10:23 SEAFOOD Allergy Severe ANAPHYLAXIS Uncoded 06/16/25 15:16 Review of Systems Review of Systems Yes all other systems are reviewed and are negative Constitutional: Reports as per [facility] Past Medical History Attestation statement: The following information was validated with the patient. Source: old records reviewed Medical History Seizure Popliteal artery aneurysm AAA (abdominal aortic aneurysm) Left sided abdominal pain COVID-19 DVT (deep venous thrombosis) Diabetes Seizure disorder HIV (human immunodeficiency virus infection) Surgical History History of colon resection Status post cholecystectomy Status post laparoscopic appendectomy H/O fasciotomy S/P AAA (abdominal aortic aneurysm) repair S/P IVC filter Social History Social History Household Members: Spouse and Family Housing: House Do you presently have visiting nurse or other home services: No Alcohol intake: never Comment: pt refuses high fall risk precautions Patient Tobacco Use Status: Former Tobacco user Advance Directives Date on File: 09/26/24 service: No Physical Exam ED Vital Signs: Vital Signs - 24 hr 07/19/25 10:22 07/19/25 12:20 07/19/25 16:07 Temperature 98.2 F 98.3 F 98.3 F Pulse Rate 86 81 81 Respiratory Rate 16 16 16 Blood Pressure 95/61 102/63 102/63 Pulse Oximetry 100 100 100 Oxygen Delivery Method Room Air Room Air Room Air BMI result Body Mass Index 30.0 Const General: cooperative, healthy appearing and no acute distress Orientation/consciousness: patient oriented x3 Limitations: no limitations HENMT Head: Yes normal to inspection and Yes atraumatic Ears: hearing grossly normal bilaterally General nose exam: Normal external nose present Face and sinus: Yes normal facial exam Eyes General: appearance normal, both eyes and all related structures EOM: EOMs intact bilaterally Neck Neck: Yes normal visual inspection and Yes no meningeal signs Resp Effort & Inspection: normal respiratory effort and no respiratory distress Auscultation: clear to auscultation bilaterally Cardio Rate: regular rate Heart sounds: S1 normal heart sound present and S2 normal heart sound present GI Inspection: Yes normal to inspection Palpation (GI): Soft to palpation, Tenderness to palpation present (GI) ( diffusely) with no rebound tenderness, no guarding and not rigid General: Yes no CVA tenderness Back/Spine/Pelvis Back: no CVA tenderness Skin Rashes: no rashes Wounds: no wounds Neuro General: patient oriented x3, tone normal and no meningeal signs Cranial nerves: Yes CN's II-XII intact bilaterally Gait exam (Neuro): Normal gait present Extrem General: Yes normal to inspection Course Course Course Narrative: -1504-- slight leukopenia 4.3. H/H stable. Lactic acid 2.1 will give IVF and repeat. - UA not infected. Occult stool negative - viral testing negative CT abdomen pelvis w IV con IMPRESSION: 1. Mild thickening of the mucosa of the distal sigmoid colon suspicious for a mild/early colitis. 2. Diffuse thickening of the mucosa of the urinary bladder can be associated with cystitis or chronic outlet obstruction. -1533-- lactic acid resolved after IVF. - Patient positive for Campylobacter due to immune compromise state with HIV will treat with azithromycin. Recommended close PCP follow-up >> patient is tolerating p.o. in the ED without difficulty Results discussed with patient including worrisome signs and symptoms and strict return precautions, and when to return to the emergency department. They verbalized understanding and feel safe for discharge at this time. Medical Decision Making Medical Decision Making [facility] Narrative: 49-year-old Cypriot-speaking male with a past medical history AAA, diabetes, seizures, HIV on HAART, DVT on Coumadin, diverticulitis, presenting to the ED complaining of diffuse abdominal pain, nausea, diarrhea, black stool, and decreased p.o. intake x few days worsening over the past month. on exam vital signs stable, NAD, nontoxic appearing, abdomen is soft diffusely tender, no rebound or guarding. Concern for recurrent / persistent diverticulitis vs colitis vs GI bleed vs appendicitis. concern for possible cholecystitis /lithiasis or pancreatitis. Rule out anemia. Lower suspicion for ischemic bowel at this time or ruptured AAA with duration of symptoms. Plan: EKG, labs, UA, CT AP, IVF, antiemetic/pain control, re-evaluate Please refer to course for remaining clinical decision making, interpretation of labs/imaging results, and discussions with consultants and/or family members. Differential Diagnosis Differential Diagnoses: The differential diagnosis associated with the presentation includes As above Admission/Observation Consideration of admission/observation: Escalation of care including admission/observation considered Lab Data [facility] Lab Attestation statement: I reviewed the patient's lab results. 07/19/25 11:38 07/19/25 11:38 Labs: Lab Results 07/19/25 07/19/25 07/19/25 Range/Units 11:38 12:25 14:52 WBC 4.3 L (4.8-10.8) X10*3/uL RBC 4.34 L (4.60-5.80) X10*6/uL Hgb 13.0 L (14.0-18.0) g/dl Hct 39.5 L (42.0-52.0) % MCV 91.0 (80.0-98.0) fL MCH 30.0 (27.0-33.0) pg MCHC 32.9 (31.0-36.0) g/dl RDW 14.3 (11.0-16.0) % Plt Count 179 (160-400) X10*3/uL MPV 9.6 (9.4-12.4) fL Immature Gran % (Auto) 0.2 (0.0-0.4) % Neut % (Auto) 55.3 (45-73) % Lymph % (Auto) 34.8 (20-40) % Frio % (Auto) 8.5 (2-11) % Eos % (Auto) 0.7 (0-4) % Baso % (Auto) 0.5 (0-2) % Lymph # (Auto) 1.5 (1.2-4.9) X10*3/uL Frio # (Auto) 0.4 (0.1-1.2) X10*3/uL Eos # (Auto) 0.0 (0.0-0.4) X10*3/uL Baso # (Auto) 0.0 (0.0-0.2) X10*3/uL Abs Immat Gran (auto) 0.01 (0.00-0.03) X10*3/uL Absolute Neuts (auto) 2.4 (2.0-8.3) x10*3/uL Absolute Nucleated RBC 0.000 (0.0-0.012) X10*3/uL Nucleated RBC % (auto) 0.0 (0.0-0.2) /100WBC PT 24.0 H (11.2-13.5) SEC INR 2.0 H (0.9-1.1) Sodium 139 (135-145) mmol/L Potassium 4.1 (3.3-5.1) mmol/L Chloride 107 (96-108) mmol/L Carbon Dioxide 22 (22-29) mmol/L Anion Gap 14 (12-20) BUN 15 (9-16) mg/dL Creatinine 1.24 (0.5-1.4) mg/dL Estim Creat Clear Calc 67.0 Estimated GFR > 60 Random Glucose 167 H (60-115) mg/dL Lactic Acid 2.1 H* (0.5-2.0) mmol/L Lactic Acid F/U @ 2Hr 1.6 (0.5-2.0) mmol/L Calcium 9.4 (8.4-10.2) mg/dL Magnesium 2.1 (1.6-2.6) mg/dL Total Bilirubin 0.3 (0.0-1.0) mg/dL AST 31 (5-37) U/L ALT 29 (0-40) U/L Alkaline Phosphatase 117 (39-117) U/L Troponin I High Sens < 2.7 (<3.5-35.0) ng/L Total Protein 9.1 H (6.5-8.0) g/dL Albumin 4.4 (3.5-5.0) g/dL Lipase 14 (8-78) U/L Urine Color Yellow Urine Appearance Cloudy Urine pH 7.0 (5.0-9.0) Ur Specific [place] >= 1.030 H (1.005-1.025) Urine Protein Trace (Neg-Trace) mg/dL Urine Glucose (UA) >=1000 H (Negative) mg/dL Urine Ketones Trace (Negative) mg/dL Urine Blood Negative (Negative) Urine Nitrite Negative (Negative) Ur Leukocyte Esterase Negative (Negative) Urine RBC 0-2 (0-2) /HPF Urine WBC 0-5 (0-5) /HPF Ur Squamous Epith Cells 0-2 (0-2) /HPF Urine Bacteria None Seen (None Seen) Hyaline Casts 0-2 (0-2) /LPF Stool Occult Blood NEGATIVE (NEGATIVE) Stl C. cayetanensis PCR Not Detected (Not Detect.) Stool Rotavirus A PCR Not Detected (Not Detect.) Stl Adenov F 40/41 PCR Not Detected (Not Detect.) Stool Astrovirus (PCR) Not Detected (Not Detect.) Stool Campylobacter PCR Detected A (Not Detect.) Stool Cryptosporidium PCR Not Detected (Not Detect.) Stl Sh Tox Pr E STEC PCR Not Detected (Not Detect.) Stool E coli O157 PCR Not applicable (Not Detect.) Stl Enterotoxigenic E PCR Not Detected (Not Detect.) Stool EPEC (PCR) Not Detected (Not Detect.) Stool EAEC (PCR) Not Detected (Not Detect.) Stl E. histolytica PCR Not Detected (Not Detect.) Stool Giardia Lamblia PCR Not Detected (Not Detect.) Stl P. shigelloides PCR Not Detected (Not Detect.) Stool Salmonella PCR Not Detected (Not Detect.) Stool Sapovirus (PCR) Not Detected (Not Detect.) Stl Shigella/EIEC PCR Not Detected (Not Detect.) St Y.enterocolitica PCR Not Detected (Not Detect.) Stool Vibrio (PCR) Not Detected (Not Detect.) Stl Vibrio cholerae PCR Not Detected (Not Detect.) Stl Norovirus GI/GII PCR Not Detected (Not Detect.) Influenza Type A (PCR) NEGATIVE (Negative) Influenza Type B (PCR) NEGATIVE (Negative) RSV RNA Qual (PCR) NEGATIVE (Negative) SARS-CoV-2 RNA (RT-PCR) NEGATIVE (Negative) Independent Interpretation I performed an independent interpretation of an: EKG and CT Scan Radiology Impression Discussion of test interpretation with radiology: I have reviewed the radiologist's reading. External Record Review External record reviewed: Inpatient record, Office record, Outpatient record, Prior outpatient labs, Prior outpatient radiology, Primary care record and Outside ED record Tests considered The following testing was considered but not selected: As above Prescription Management I considered prescription management with: Pain Medication and Antibiotic Chronic Conditions Patient?s care impacted by: Diabetes and Other ( HIV ) Social Determinants Patient?s care significantly limited by Social Determinants of Health including: Problems related to primary support group Medications Administered Discontinued Medications Generic Name Dose Route Start Last Admin Trade Name Freq PRN Reason Stop Dose Admin Al Hydroxide/Mg Hydroxide 30 ml 07/19/25 13:12 07/19/25 14:09 Magnesium Hydrox/Alum Hydrox 30 Ml Oral.Susp PO 07/19/25 13:13 30 ml ONCE ONE Administration Dicyclomine HCl 20 mg 07/19/25 15:53 07/19/25 16:06 Dicyclomine Hcl 10 Mg Capsule PO 07/19/25 15:54 20 mg ONCE ONE Administration Famotidine 20 mg 07/19/25 13:12 07/19/25 14:07 Famotidine/Pf 20 Mg/2 Ml Vial IVPUSH 07/19/25 13:13 20 mg ONCE ONE Administration Sodium Chloride 1,000 mls @ 999 mls/hr 07/19/25 12:15 07/19/25 15:20 Ns IV 07/19/25 13:15 Infused .Q1H1M HAYLEY Infusion Sodium Chloride 1,000 mls @ 999 mls/hr 07/19/25 13:15 07/19/25 16:03 Ns IV 07/19/25 14:15 Infused .Q1H1M HAYLEY Infusion Iohexol 85 ml 07/19/25 12:16 07/19/25 12:16 Iohexol 350 Mg/Ml 100 Ml Infus..Btl IV 07/19/25 12:17 85 ml ONCE ONE Administration Morphine Sulfate 4 mg 07/19/25 12:03 07/19/25 12:48 Morphine Sulfate 4 Mg/Ml Cartridge IVPUSH 07/19/25 12:04 4 mg ONCE ONE Administration Protocol Morphine Sulfate 4 mg 07/19/25 13:44 07/19/25 14:07 Morphine Sulfate 4 Mg/Ml Cartridge IVPUSH 07/19/25 13:45 4 mg ONCE ONE Administration Protocol Ondansetron HCl 4 mg 07/19/25 12:03 07/19/25 12:48 Ondansetron Hcl 4 Mg/2 Ml Vial IVPUSH 07/19/25 12:04 4 mg ONCE ONE Administration Critical Care Time Critical Care Time Critical Care Time: Yes Total Critical Care Time: 45 Attestation: I have personally provided critical care time exclusive of time spent on separately billable procedures. Time includes review of lab data, radiology results, discussion with consultants, and monitoring for potential decompensation. Intervention performed as documented. Discharge Plan Discharge Clinical Impression: Colitis due to Campylobacter species Patient Disposition: Home, Self-Care Instructions: Colitis (ED) Additional Instructions: you have Campylobacter. Azithromycin as an antibiotic please take as prescribed until completion Your CAT scan shows colitis. This is usually self-limited make sure you are staying hydrated, drink plenty of fluids. Practice a bland diet If you are speaking or fevers, persistent or worsening pain, you are unable to eat or drink return to the emergency department Prescriptions: New azithromycin 250 mg tablet See Rx Instructions .ROUTE .COMPLEX Qty: 6 0RF Rx Instructions: take 500 mg today (day 1), then 250 mg for 4 days (days 2-5) No Action warfarin 10 mg tablet 10 mg PO DAILY Ozempic 1 mg/dose (4 mg/3 mL) pen injector 1 mg subcut TU fondaparinux 7.5 mg/0.6 mL Syringe 7.5 mg subcut Q24H Qty: 0 0RF amoxicillin-pot clavulanate 875-125 mg tablet 1 tab PO BID Qty: 16 0RF metronidazole 500 mg tablet 500 mg PO Q8H 7 Days Qty: 20 0RF levofloxacin 750 mg tablet 750 mg PO Q24H Qty: 6 0RF ondansetron 4 mg tablet,disintegrating 4 mg PO Q8H PRN (Reason: nausea and vomiting) Qty: 10 0RF morphine 15 mg tablet 15 mg PO Q8H PRN (Reason: pain) Qty: 10 0RF Rx Instructions: Partial Fill upon patient request. atorvastatin 80 mg tablet 80 mg PO DAILY famotidine 20 mg tablet 40 mg PO DAILY lacosamide [Vimpat] 100 mg tablet 100 mg PO BID levothyroxine 25 mcg tablet 25 mcg PO DAILY@0600 pantoprazole 40 mg tablet,delayed release (DR/EC) 40 mg PO DAILY@0630 trazodone 150 mg tablet 150 mg PO BEDTIME tenofovir disoproxil fumarate 300 mg tablet 300 mg PO DAILY cholecalciferol (vitamin D3) 50 mcg (2,000 unit) capsule 50 mcg PO DAILY Jardiance 25 mg tablet 25 mg PO DAILY Prezcobix 800-150 mg-mg tablet 1 tab PO DAILY Isentress HD 600 mg tablet 600 mg PO BID albuterol sulfate [Ventolin HFA] 90 mcg/actuation HFA aerosol inhaler 2 inh inhalation Q4H PRN (Reason: wheezing/sob) ondansetron HCl 4 mg tablet 4 mg PO Q8H Qty: 20 0RF morphine 10 mg capsule,extend.release pellets 10 mg PO DAILY PRN (Reason: pain) Qty: 4 0RF Rx Instructions: Partial Fill upon patient request. Referrals: [facility] [Primary Care Provider, Primary Care] - 5 days Interventions: ED Discharge Assessment Last Done: 07/19/25 16:07 Discharge Date/Time: 07/19/25 16:32 Print Language: Cypriot
--- NOTE | 2025-07-19 12:48 | ECG_ITS ---
Test Reason : ABD PAIN Blood Pressure : */* mmHG Vent. Rate : 76 BPM Atrial Rate : 76 BPM P-R Int : 126 ms QRS Dur : 92 ms QT Int : 402 ms P-R-T Axes : -23 20 -20 degrees QTcB Int : 452 ms Normal sinus rhythm with sinus arrhythmia Nonspecific T wave abnormality Abnormal ECG When compared with ECG of 16-Jun-2025 15:47, No significant change was found Referred By: Kaylin Biswas Electronically Signed By: Antonio Medina
[2025-07-19 12:53] LABS: Troponin-I High Sensitivity < 2.7 ng/L (<3.5-35.0)
[2025-07-19] MEDS: Magnesium Hydrox/Alum Hydrox 30 ML ORAL.SUSP PO (14:09)
[2025-07-19 14:37] LABS: Reflex Lactate? Lactic Acid Added
[2025-07-19 14:43] LABS: E. coli EAEC Not Detected (Not Detect.); E. coli EPEC Not Detected (Not Detect.); E. coli ETEC Not Detected (Not Detect.); E. coli STEC Not Detected (Not Detect.); Shigella sp./EIEC Not Detected (Not Detect.)
[2025-07-19 15:12] LABS: ~Lactic Acid-LAB USE ONLY 1.6 mmol/L (0.5-2.0)
[2025-07-19 16:07] VITALS: BP 102/63; PULSE 81; RESP 16; TEMP 36.8; O2SAT 100
== END 2025-07-19 16:32 | disposition home or self-care (01) ==
PROVIDERS: Physician Assistant; Emergency Provider Emergency Medicine Emergency Medical Services; PCP Dentist General Practice
DX: K52.9 Noninfective gastroenteritis and colitis, unspecified (principal); I49.8 Other specified cardiac arrhythmias; R11.2 Nausea with vomiting, unspecified; Z87.891 Personal history of nicotine dependence; Z79.899 Other long term (current) drug therapy; Z03.818 Encounter for observation for suspected exposure to other biological agents ruled out; Z51.81 Encounter for therapeutic drug level monitoring; Z11.2 Encounter for screening for other bacterial diseases; Z20.01 Contact with and (suspected) exposure to intestinal infectious diseases due to Escherichia coli (E. coli)
CPT/HCPCS: 36415; 74177; 80053; 81001; 82272; 83605; 83690; 83735; 84484; 85025; 85610; 87507; 87637; 93005; 96361; 96374; 96375; 96376; 99285; J1308; J2270; J2405; Q9967

== ENCOUNTER → 2025-07-19 12:03 | Outpatient (BNV) | payer MEDICARE, MEDICAID, SELFPAY | PROVIDERS: Emergency Provider Emergency Medicine Emergency Medical Services; PCP Dentist General Practice; Visit Provider Radiology Diagnostic Radiology | DX: R10.9 Unspecified abdominal pain (principal); K92.1 Melena | CPT/HCPCS: 74177 ==

== ENCOUNTER → 2025-07-19 12:48 | Outpatient (BNV) | payer MEDICARE, MEDICAID, SELFPAY | PROVIDERS: Emergency Provider Emergency Medicine Emergency Medical Services; PCP Dentist General Practice; Visit Provider Internal Medicine Cardiovascular Disease | DX: I49.9 Cardiac arrhythmia, unspecified (principal) | CPT/HCPCS: 93010 ==

== ENCOUNTER 2025-07-24 11:55 | Emergency (ER) | payer MEDICARE, MEDICAID, SELFPAY ==
--- OUTSIDE RECORDS SUMMARY | 2025-07-20 22:14 | XMS_ITS | Continuity of Care Document ---
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 Name Role Phone Thomas Bright Primary Care Physician Encounter [facility] Date(s): 07/20/25 - 07/20/25 [facility] [address] [place] [id number]- Discharge Disposition: A-D/C Home Attending Physician: Drew Ochoa MD Admitting Physician: Drew Ohcoa MD Referring Physician: Not on Staff, Referring MD Encounter Type: Disch ES Allergies, Adverse Reactions, Alerts Substance Criticality Severity Reaction Reaction Severity Status Lamictal Hives, itch Active Dexamethasone Sodium Phosphate 1 Itching of male genital organs Active Tegretol Hallucinations, aggression Active Tylenol itching Active Lobster Unable to assess criticality Persistent Severe not sure Active Percocet 7.5/325 2 C/O: itching Active influenza virus vaccine, inactivated 3 Active oxyCODONE Unable to assess criticality Persistent Mild itch Active traMADol seizures Active 1itching of face and rectum 2makes pt itchy 3Hx of Guillain - Justice Immunizations Given and Recorded Vaccine Date Status Refusal Reason hepatitis B adult vaccine 10/06/22 Recorded hepatitis B adult vaccine 08/03/22 Recorded hepatitis B adult vaccine 10/28/13 Recorded hepatitis B adult vaccine 09/30/13 Recorded hepatitis B adult vaccine 01/06/04 Recorded hepatitis B adult vaccine 06/05/03 Recorded hepatitis B adult vaccine 03/27/03 Recorded Measles/Mumps/Rubella Virus Vaccine 05/04/22 Recor ded Measles/Mumps/Rubella Virus Vaccine 04/03/22 Recor ded SARS-CoV-2 (COVID-19) mRNA-1273 vaccine 04/03/22 R ecorded SARS-CoV-2 (COVID-19) mRNA-1273 vaccine 09/02/21 R ecorded SARS-CoV-2 (COVID-19) mRNA-1273 vaccine 08/08/21 R ecorded zoster vaccine, inactivated 06/29/21 Recorded zoster vaccine, inactivated 05/18/21 Recorded pneumococcal 23-valent vaccine 04/11/19 Recorded pneumococcal 23-valent vaccine 02/03/17 Given pneumococcal 23-valent vaccine 09/30/13 Recorded pneumococcal 23-valent vaccine 06/05/03 Recorded Meningococcal Conjugate Vaccine 11/18/18 Recorded Meningococcal Conjugate Vaccine 06/19/17 Recorded pneumococcal 13-valent vaccine 11/28/16 Recorded tetanus/diphtheria/pertussis, acel(Tdap) 09/30/13 Recorded influenza virus vaccine, inactivated 07/29/13 Be rded influenza virus vaccine, inactivated 05/06/10 Eb rded Hepatitis A Adult Vaccine 11/16/03 Recorded Hepatitis A Adult Vaccine 03/27/03 Recorded tetanus-diphtheria toxoids (Td) 06/05/03 Recorded Medications atorvastatin 80 mg oral tablet 1 tablet = 80 mg, By Mouth, Daily at bedtime, # 30 tablet, 0 Refills, Maintenance, Tablet, Route toPharmacy Electronically, [id number], [facility] 3 Start Date: 04/02/18 Stop Date: 05/02/18 Status: Ordered Medication Dispense Status: Completed Quantity: 30.0 Unit: tablet Total Allowed Fills: 1 Fills Dispensed: 0 Dilaudid 2 mg oral tablet 1 tablet = 2 mg, By Mouth, Every 6 hours, PRN as needed for pain, # 5 tablet, 0 Refills, Maintenance, 04/21/25 4:12:00 PM EDT, Tablet, [facility]/pharmacy #[id number], Partial fill upon patient request if the prescription is for a schedule II opioid drug., 175, cm, 04/21/25 14:14:00 EDT, Height, 79, kg, 04/21/2514:14:00 EDT, Dry Weight Start Date: 04/21/25 Status: Ordered Medication Dispense Status: Completed Quantity: 5.0 Unit: tablet Total Allowed Fills: 1 Fills Dispensed: 0 famotidine 20 mg oral tablet 20 mg, 1, tablet, By Mouth, 2 times a day Start Date: 06/16/20 Status: Ordered Medication Dispense Status: Completed Total Allowed Fills: 1 Fills Dispensed: 0 Isentress HD 600 mg oral tablet 2 tablet = 1,200 mg, By Mouth, Daily, # 60 tablet, 0 Refills, Maintenance, 09/12/23 10:00:00 AM EST,Tablet, Partial fill upon patient request if the prescription is for a schedule II opioid drug. Start Date: 09/12/23 Status: Ordered Medication Dispense Status: Completed Quantity: 60.0 Unit: tablet Total Allowed Fills: 1 Fills Dispensed: 0 Jardiance 25 mg oral tablet TOME 1 TABLETA POR V A ORAL TODOS LOS D EN LA ROSE FERNANDES Start Date: 04/28/24 Status: Ordered Medication Dispense Status: Completed Total Allowed Fills: 1 Fills Dispensed: 0 levothyroxine 25 mcg (0.025 mg) oral capsule 1 capsule = 25 mcg, By Mouth, Daily, # 30 capsule, 0 Refills, Maintenance, 10/12/20 11:33:00 PM EST,Capsule, Partial fill upon patient request if the prescription is for a schedule II opioid drug. Start Date: 10/12/20 Status: Ordered Medication Dispense Status: Completed Quantity: 30.0 Unit: capsule Total Allowed Fills: 1 Fills Dispensed: 0 morphine 15 mg oral tablet, immediate release 1 tablet = 15 mg, By Mouth, Every 6 hours, PRN as needed for pain, # 12 tablet, 0 Refills, Maintenance, 04/23/25 10:56:00 PM EDT, Tablet, [facility]/pharmacy #[id number], Partial fill upon patient request if the prescription is for a schedule II opioid drug., 175, cm, 04/23/25 13:00:00 EDT, Height, 79.5, kg, 04/23/25 13:00:00 EDT, Dry Weight Start Date: 04/23/25 Status: Ordered Medication Dispense Status: Completed Quantity: 12.0 Unit: tablet Total Allowed Fills: 1 Fills Dispensed: 0 MorPHINE Inj 10 mg, Injection, Intramuscular, Once, Routine, 07/20/25 5:00:00 PM EST, Stop date 07/20/25 4:53:35PM EST Start Date: 07/20/25 Stop Date: 07/20/25 Status: Completed Medication Dispense Status: Completed Total Allowed Fills: 1 Fills Dispensed: 0 Ozempic 2 mg/3 mL (0.25 mg or 0.5 mg dose) subcutaneous solution INJECT 0.5 MG INTO THE SKIN ONCE A WEEK INCREASED DOSING Start Date: 04/28/24 Status: Ordered Medication Dispense Status: Completed Total Allowed Fills: 1 Fills Dispensed: 0 pantoprazole 40 mg oral delayed release tablet 1 tablet = 40 mg, By Mouth, Daily, take at a different time than famotidine, # 30 tablet, 0 Refills, Maintenance, 02/12/21 7:06:00 PM EDT, EC Tablet, 175, cm, 01/03/21 16:35:00 EDT, Height, 83, kg, 01/03/21 16:35:00 EDT, Dry Weight Start Date: 02/12/21 Status: Ordered Medication Dispense Status: Completed Quantity: 30.0 Unit: tablet Total Allowed Fills: 1 Fills Dispensed: 0 Prezcobix 800 mg-150 mg oral tablet 1 tablet, By Mouth, Daily, # 30 tablet, 0 Refills, Maintenance, 09/12/23 10:01:00 AM EST, Tablet, Partial fill upon patient request if the prescription is for a schedule II opioid drug. Start Date: 09/12/23 Status: Ordered Medication Dispense Status: Completed Quantity: 30.0 Unit: tablet Total Allowed Fills: 1 Fills Dispensed: 0 ProAir HFA 90 mcg/inh inhalation aerosol 2 puffs, Inhalation, Every 4 hours, PRN Wheezing/Shortness of Breath Start Date: 06/16/20 Status: Ordered Medication Dispense Status: Completed Total Allowed Fills: 1 Fills Dispensed: 0 tenofovir disoproxil fumarate 300 mg oral tablet 1 tablet = 300 mg, By Mouth, Daily Start Date: 09/12/23 Status: Ordered Medication Dispense Status: Completed Total Allowed Fills: 1 Fills Dispensed: 0 traZODone 150 mg oral tablet 1 tablet = 150 mg, By Mouth, Daily at bedtime, 0 Refills, Maintenance, 03/12/18 11:23:20 AM EDT Start Date: 03/12/18 Status: Ordered Medication Dispense Status: Completed Total Allowed Fills: 1 Fills Dispensed: 0 Vimpat 100 mg oral tablet 1 tablet = 100 mg, By Mouth, 2 times a day, # 60 tablet, 5 Refills, Maintenance, 09/17/24 4:12:00 AMEST, Tablet, Partial fill upon patient request if the prescription is for a schedule II opioid drug. Start Date: 09/17/24 Status: Ordered Medication Dispense Status: Completed Quantity: 60.0 Unit: tablet Total Allowed Fills: 1 Fills Dispensed: 0 Walker See Instructions, # 1 each, Maintenance, 1 walker with wheels Diagnosis PVD, DVT lower extremity Height 5'9 Weight 79 kg, 04/21/25 4:03:00 PM EDT, Supply Start Date: 04/21/25 Status: Ordered Medication Dispense Status: Completed Quantity: 1.0 Unit: each Total Allowed Fills: 1 Fills Dispensed: 0 warfarin 5 mg oral tablet = 5 mg, By Mouth, Daily, Take 1 tablet daily as directed by the anticoagulation clinic, # 90 tablet, 3 Refills, Maintenance, 10/17/24 2:24:00 PM EST, Tablet, [facility]/pharmacy #[id number], Partial fill upon patient request if the prescription is for a schedule II opioid drug., 176, cm, 10/15/24 22:58:00 EST, Height, 80, kg, 10/15/24 22:58:00 EST, Dry Weight Start Date: 10/17/24 Stop Date: 10/12/25 Status: Ordered Medication Dispense Status: Completed Quantity: 90.0 Unit: tablet Total Allowed Fills: 4 Fills Dispensed: 0 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; Acute embolism and thrombosis of unspecified vein; Mental Status Mental Status Assessment Assessment Assessment Component Result Effecti ve Date Bethel coma score total 15 Mental Status Assessment Assessment Assessment Component Result Effecti ve Date Dorothea coma score total 15 Problem List Condition Confirmation Course Effective Dates Status H ealth Status Informant AAA (abdominal aortic aneurysm) Confirmed Active Abdominal pain Confirmed Active Asthma Confirmed Active COVID-19 1 Confirmed 07/23/23 Active Left leg DVT Confirmed Active Diabetes mellitus Confirmed Active GERD (gastroesophageal reflux disease) Confirmed Active Guillain-Justice syndrome 2 Confirmed Active Hematoma of leg Confirmed Active Ventral hernia Confirmed Active History of DVT in adulthood Confirmed Active History of diverticulitis Confirmed Active HIV disease Confirmed 2002 Active HLD (hyperlipidemia) Confirmed Active HTN (hypertension) Confirmed Active Hypothyroidism Confirmed Active Skin infection Confirmed Active Femoral-tibial bypass graft occlusion, right Confirmed Active PVD (peripheral vascular disease) Confirmed Active 1Problem added by Discern Expert 2sequelae, left sided weakness Results Radiology Reports * Exam Date Time Procedure Performing Provider Status 07/20/25 7:[address] Abdomen and Pelvi s W/O Contrast Auth (Verified) Notes: (CT Abdomen and Pelvis W/O Contrast) Reason For Exam: Flank pain, kidney stone suspected;Other: RESULT: CT Abdomen and Pelvis W/O Contrast Please see dictation of CT scan of the chest. WSN: [id number] Ordering Physician: Drew Ochoa Dictated By: Dada Paiz MD Dictated Date/Time: 07/20/25 9:06 pm Reviewed By: Dada Paiz MD Signed By: Dada Paiz MD Signed Date/Time: 07/20/25 9:06 pm Transcribed By: LOGAN Transcribed Date/Time: 07/20/25 9:06 pm * Exam Date Time Procedure Performing Provider Status 07/20/25 7:[address] Chest W/O Contrast Au th (Verified) Notes: (CT Chest W/O Contrast) Reason For Exam: Chest Pain;Other: RESULT: CT Chest W/O Contrast CT Chest W/O Contrast INDICATION: Hx of Present Illness: fell bending over to pet dog, c o left shoulder, knee pain, decreased ROm to arm, + thinners for dvt; Reason: Other:; Chest Pain; Clinical Question(s): Other:; trauma, ?rib fx's - TECHNIQUE: Helical CT scan of the chest, abdomen, and pelvis without IV contrast, formatted in 3 planes. This study was performed oral contrast. Weight- based protocol was performed using automatic exposure control. CTDIvol Body: 8.40 mGy, DLP Body: 645 mGy*cm. COMPARISON: 06/10/2025 FINDINGS: Blasting Entryman view findings, lines and tubes: None. Trachea and airways: Patent without evidence of tracheal or endobronchial lesion. Lungs and pleura: Clear lungs. No effusion or pneumothorax. Mediastinum and bronson: No mass or hematoma. No mediastinal or hilar lymphadenopathy. No esophageal abnormality. Heart: Heart is normal in size. No pericardial effusion. Aorta: No aortic aneurysm. Pulmonary arteries: Normal caliber. Chest wall soft tissues: No acute abnormality. Diaphragm: Intact. Liver: Normal in attenuation and morphology. No suspicious lesion. Gallbladder: No CT evidence of gallbladder pathology. Bile ducts: No biliary ductal dilation. Spleen: Normal in size. Pancreas: No suspicious lesion or ductal dilatation. Adrenal glands: No nodule. Kidneys and ureters: No hydronephrosis, stone, or suspicious lesion. Bladder: No wall thickening or surrounding stranding. Reproductive organs: Unremarkable. Stomach, small bowel, and large bowel: Normal caliber stomach and bowel loops. No surrounding inflammatory changes. Appendix: No evidence of acute appendicitis. Peritoneum and retroperitoneum: No ascites or pneumoperitoneum. No omental or mesenteric lesions. Lymph nodes: No enlarged lymph nodes. Blood vessels: Vascular stent graft noted. Abdominal and pelvic wall soft tissues: No acute abnormality. Bones: Mild vertebral compression fracture appears chronic. IMPRESSION: No acute abnormality. WSN: [id number] Ordering Physician: Drew Ochoa Dictated By: Dada Paiz MD Dictated Date/Time: 07/20/25 8:33 pm Reviewed By: Dada Paiz MD Signed By: Dada Paiz MD Signed Date/Time: 07/20/25 8:33 pm Transcribed By: LOGAN Transcribed Date/Time: 07/20/25 8:26 pm * Exam Date Time Procedure Performing Provider Status 07/20/25 7:[address] Cervical Spine W/O Contrast Auth (Verified) Notes: (CT Cervical Spine W/O Contrast) Reason For Exam: Neck trauma, dangerous injury mechanism;Other: RESULT: CT Cervical Spine W/O Contrast CT Head/Brain W/O Contrast, CT Cervical Spine W/O Contrast Hx of Present Illness: fell bending over to pet dog, c o left shoulder, knee pain, decreased ROm toarm, + thinners for dvt; Reason: Trauma; Clinical Question(s): Subarachnoid Hemorrhage; Order Comment: COMPARISON: None. TECHNIQUE: Incremental CT without contrast through the head was formatted in axial and coronal plane. Spiral CT without contrast through the cervical spine was formatted in 3 planes. Automatic tube modulation was used for the cervical spine and iterative dose reconstruction was used for both the head and cervical spine to optimize scan parameters and image quality. CTDIvol Body: 13.50 mGy, DLP Body: 376 mGy*cm. CTDIvol Head: 39.40 mGy, DLP Head: 671 mGy*cm. FINDINGS: Blasting Entryman View Findings, Lines and Tubes: None. CT of HEAD: BRAIN: No parenchymal hemorrhage, midline shift, or mass effect. Suazo-white matter differentiation is well preserved. No acute infarct. No white matter lesions. VENTRICLES: Ventricles, sulci, and basilar cisterns are normal. EXTRA-AXIAL SPACES: No subarachnoid hemorrhage. No subdural or epidural collection. SKULL/SOFT TISSUES: No fractures or suspicious bony lesions. The extracranial soft tissues are unremarkable. SINUSES: The paranasal sinuses and mastoid air cells are clear. ORBITS: Visualized orbits and globes are intact. CT of CERVICAL SPINE: CERVICAL SPINE: No fracture or acute malalignment. The alignment is maintained. Degenerative changes are noted including disc height loss, anterior osteophytes and posterior disc osteophyte complexes. OTHER BONES: Normal. CERVICAL SOFT TISSUES:Unremarkable. LUNG APICES: Clear lung apices. IMPRESSION: No acute abnormality of the head or cervical spine. WSN: [id number] Ordering Physician: Drew Ochoa Dictated By: Dada Paiz MD Dictated Date/Time: 07/20/25 8:26 pm Reviewed By: Dada Paiz MD Signed By: Dada Paiz MD Signed Date/Time: 07/20/25 8:26 pm Transcribed By: LOGAN Transcribed Date/Time: 07/20/25 8:21 pm * Exam Date Time Procedure Performing Provider Status 07/20/25 7:[address] Head/Brain W/O Contrast Auth (Verified) Notes: (CT Head/Brain W/O Contrast) Reason For Exam: Trauma RESULT: CT Head/Brain W/O Contrast CT Head/Brain W/O Contrast, CT Cervical Spine W/O Contrast Hx of Present Illness: fell bending over to pet dog, c o left shoulder, knee pain, decreased ROm toarm, + thinners for dvt; Reason: Trauma; Clinical Question(s): Subarachnoid Hemorrhage; Order Comment: COMPARISON: None. TECHNIQUE: Incremental CT without contrast through the head was formatted in axial and coronal plane. Spiral CT without contrast through the cervical spine was formatted in 3 planes. Automatic tube modulation was used for the cervical spine and iterative dose reconstruction was used for both the head and cervical spine to optimize scan parameters and image quality. CTDIvol Body: 13.50 mGy, DLP Body: 376 mGy*cm. CTDIvol Head: 39.40 mGy, DLP Head: 671 mGy*cm. FINDINGS: Blasting Entryman View Findings, Lines and Tubes: None. CT of HEAD: BRAIN: No parenchymal hemorrhage, midline shift, or mass effect. Suazo-white matter differentiation is well preserved. No acute infarct. No white matter lesions. VENTRICLES: Ventricles, sulci, and basilar cisterns are normal. EXTRA-AXIAL SPACES: No subarachnoid hemorrhage. No subdural or epidural collection. SKULL/SOFT TISSUES: No fractures or suspicious bony lesions. The extracranial soft tissues are unremarkable. SINUSES: The paranasal sinuses and mastoid air cells are clear. ORBITS: Visualized orbits and globes are intact. CT of CERVICAL SPINE: CERVICAL SPINE: No fracture or acute malalignment. The alignment is maintained. Degenerative changes are noted including disc height loss, anterior osteophytes and posterior disc osteophyte complexes. OTHER BONES: Normal. CERVICAL SOFT TISSUES:Unremarkable. LUNG APICES: Clear lung apices. IMPRESSION: No acute abnormality of the head or cervical spine. WSN: [id number] Ordering Physician: Drew Ochoa Dictated By: Dada Paiz MD Dictated Date/Time: 07/20/25 8:26 pm Reviewed By: Dada Paiz MD Signed By: Dada Paiz MD Signed Date/Time: 07/20/25 8:26 pm Transcribed By: LOGAN Transcribed Date/Time: 07/20/25 8:21 pm * Exam Date Time Procedure Performing Provider Status 07/20/25 5:41 PM Shoulder Min 2 Views Left Auth (Verified) Notes: (Shoulder Min 2 Views Left) Reason For Exam: with Pain;Trauma RESULT: Shoulder Min 2 Views Left Shoulder Min 2 Views Left, views Hx of Present Illness: fell bending over to pet dog, c o left shoulder, knee pain, decreased ROm toarm, + thinners for dvt; Reason: Trauma; with Pain; Clinical Question(s): Fracture - COMPARISON: October 08, 2024. FINDINGS: No fracture or dislocation. No arthritic change of the glenohumeral joint. Normal AC joint and portions of the clavicle included on the exam. No calcification of the rotator cuff. IMPRESSION: No acute fractures or dislocations. WSN: [id number] Ordering Physician: Drew Ochoa Dictated By: Tim Silva DO Dictated Date/Time: 07/20/25 7:31 pm Reviewed By: Tim Silva DO Signed By: Tim Silva DO Signed Date/Time: 07/20/25 7:31 pm Transcribed By: LOGAN Transcribed Date/Time: 07/20/25 7:30 pm * Exam Date Time Procedure Performing Provider Status 07/20/25 5:41 PM Pelvis 1 or 2 Views Auth (Verified) Notes: (Pelvis 1 or 2 Views) Reason For Exam: With Pain;Trauma RESULT: Pelvis 1 or 2 Views Pelvis 1 or 2 Views Hx of Present Illness: fell bending over to pet dog, c o left shoulder, knee pain, decreased ROm toarm, + thinners for dvt; Reason: Trauma; With Pain; Clinical Question(s): Fracture - COMPARISON: [15/09/2016. FINDINGS: There is no fracture or dislocation. Mild degenerative changes right and left hip. Normal sacroiliac joints. No acute soft tissue findings. Multiple surgical clips noted projecting over the right lower quadrant of the abdomen unchanged and consistent with prior surgery of unknown nature. Partially visualized aortoiliac stent graft in place. IMPRESSION: Mild degenerative changes right and left hips. WSN: [id number] Ordering Physician: rDew Ochoa Dictated By: Francis Rosado MD, V Dictated Date/Time: 07/20/25 6:33 pm Reviewed By: Francis Rosado MD, V Signed By: Francis Rosado MD, V Signed Date/Time: 07/20/25 6:33 pm Transcribed By: LOGAN Transcribed Date/Time: 07/20/25 6:32 pm * Exam Date Time Procedure Performing Provider Status 07/20/25 5:41 PM XR Femur 2 Views Left Au th (Verified) Notes: (XR Femur 2 Views Left) Reason For Exam: with Pain;Trauma RESULT: Femur 2 Views Left Femur 2 Views Left, AP and lateral views Hx of Present Illness: fell bending over to pet dog, c o left shoulder, knee pain, decreased ROm toarm, + thinners for dvt; Reason: Trauma; with Pain; Clinical Question(s): Fracture COMPARISON: None. FINDINGS: No fracture, dislocation or bone lesion. Mild degenerative change at the left hip and left knee. Normal soft tissues. IMPRESSION: Mild degenerative change at the left hip and the left knee. No acute fracture. WSN: [id number] Ordering Physician: Drew Ochoa Dictated By: Francis Rosado MD, V Dictated Date/Time: 07/20/25 5:48 pm Reviewed By: Francis Rosado MD, V Signed By: Francis Rosado MD, V Signed Date/Time: 07/20/25 5:48 pm Transcribed By: LOGAN Transcribed Date/Time: 07/20/25 5:47 pm Vital Signs Most recent to oldest [Reference Range]: 1 2 3 Oxygen Saturation [94-100 %] 96 % (07/20/25 9:46 PM) 96 % (07/20/25 6:19 PM) 97 % (07/20/25 4:32 PM) Pulse Rate [55-90 bpm] 76 bpm (07/20/25 9:46 PM) 80 bpm (07/20/25 6:19 PM) 77 bpm (07/20/25 4:32 PM) Blood Pressure [90-138/55-84 mm Hg] 103/76mm Hg (07/20/25 9:46 PM) 106/75mm Hg (07/20/25 6:19 PM) 100/73mm Hg (07/20/25 4:32 PM) Respiratory Rate [16-30 br/min] 16 br/min (07/20/25 9:46 PM) 18 br/min (07/20/25 6:19 PM) 18 br/min (07/20/25 4:53 PM) Temperature [96.8-100.4 DegF] 98.5 DegF (07/20/25 9:46 PM) 98.6 DegF (07/20/25 4:32 PM) Mode of Delivery (Oxygen) Room air (07/20/25 9:46 PM) Room air (07/20/25 6:19 PM) Room air (07/20/25 4:32 PM) Temperature Route Oral (07/20/25 9:46 PM) Oral (07/20/25 4:32 PM) Social History Social History Type Response Smoking Status Former smoker, quit more than 30 days ago entered on: 07/14/23 Sex Sex Representation Male (finding) Status Not Note * Drew Ochoa MD R: SIGN, PERFORM, SIGN, VERIFY Event Display: Patient Education Handout Authored Date: [id number] Patient Care team information Care Team Personnel Name: Queenie JENNIFERJoaquina Beal Position: Reference Physician Member Role: Primary Care Nurse Address: [address], [place] [address] [place] Telecom: Name: Thomas Bright Position: [facility] Outreach Member Role: PCP Address: [address] [place] [address]- [place] Telecom: Name: Dolores Veras RN Position: [facility] RN Member Role: Primary Care Nurse Name: Linette Perez RN Position: [facility] RN Member Role: Primary Care Nurse Name: Karmen Mandujano RN Position: [facility] Rad RN Member Role: Primary Care Nurse Name: Robert Bowens RN Position: [facility] RN Member Role: Primary Care Nurse Name: Margie Castanon RN Position: [facility] RN Member Role: Primary Care Nurse Name: Susy Castaneda RN Position: [facility] RN Member Role: Primary Care Nurse Name: Estefanía Ace RN Position: [facility] RN Member Role: Primary Care Nurse Name: Justin Dailey MD Position: [facility] Physician - Infectious Disease Member Role: [employer] Consulting Physician Address: [address] [facility] [place] [address]- [place] Telecom: Name: Sophia Bell RN Position: [facility] RN Member Role: Primary Care Nurse Name: Veronica Davila RN Position: [facility] RN Member Role: Primary Care Nurse Name: Melva Herndon RN Position: [facility] RN Member Role: Primary Care Nurse Name: Qiana Simpson RN Position: [facility] RN Member Role: Primary Care Nurse Name: Karena Penaloza RN Position: [facility] RN Member Role: Primary Care Nurse Name: Fang Adams RN Position: [facility] Hospital Health Aide Member Role: Primary Care Nurse Name: Nicholas Bertrand RN Position: [facility] RN Member Role: Primary Care Nurse Name: Karri Jaramillo RN Position: [facility] RN Member Role: Primary Care Nurse Name: Consuelo Alvarenga RN Position: [facility] RN Member Role: Primary Care Nurse Name: Ramsey Perez RN Position: [facility] Outreach Member Role: Primary Care Nurse Name: Lazaro Huffman RN Position: [facility] RN Member Role: Primary Care Nurse Name: Shahla López RN Position: [facility] RN Supv Member Role: Primary Care Nurse Name: Jeremy Johansen RN Position: [facility] RN Member Role: Primary Care Nurse Name: Lindsey Sheldon RN Position: [facility] RN Member Role: Primary Care Nurse Name: Jacquelyn Juarez Position: [facility] RN Member Role: Primary Care Nurse Name: Fletcher Salinas CRNA Position: [facility] SN RN Member Role: Primary Care Nurse Name: Jacquelyn Ramsey RN Position: [facility] AMB Nurse Member Role: Primary Care Nurse Name: Jennifer Ghosh RN Position: [facility] RN Member Role: Primary Care Nurse Name: Chuyita Ashley RN Position: [facility] RN Member Role: Primary Care Nurse Name: Nicolette Bennett RN Position: [facility] ED RN W/OE and Tasks Member Role: Primary Care Nurse Name: Sweta Valenzuela RN Position: [facility] RN Member Role: Primary Care Nurse Name: Elle Blackwood RN Position: [facility] RN Member Role: Primary Care Nurse Name: Yamilex Arteaga RN Position: [facility] RN Member Role: Primary Care Nurse Name: Skip Harry RN Position: [facility] RN Member Role: Primary Care Nurse Name: Karina Askew RN Position: [facility] RN Member Role: Primary Care Nurse Name: Mark Howell RN Position: [facility] RN Member Role: Primary Care Nurse Name: Elaine Webb RN Position: [facility] RN Member Role: Primary Care Nurse Name: Chiquis Barros RN Position: [facility] Onco RN Member Role: Primary Care Nurse Name: Stephanie Houser RN Position: [facility] RN Member Role: Primary Care Nurse Name: Amber Gu RN Position: [facility] RN Member Role: Primary Care Nurse Name: Reji Zimmerman Jr, RN Position: [facility] ED RN W/OE and Tasks Member Role: Primary Care Nurse Name: Dang Padilla RN Position: [facility] RN Member Role: Primary Care Nurse Name: David Chaparro RN Position: [facility] RN Member Role: Primary Care Nurse Name: Kandy Deal RN Position: [facility] ED RN W/OE and Tasks Member Role: Primary Care Nurse Name: Luis E Olvera RN Position: [facility] RN Member Role: Primary Care Nurse Name: Scot Anderson RN Position: [facility] RN Member Role: Primary Care Nurse Name: Luz Marina Byrd RN Position: [facility] RN Member Role: Primary Care Nurse Name: Joelle Sandoval RN Position: [facility] RN Member Role: Primary Care Nurse Name: Douglas Lux RN Position: [facility] RN Member Role: Primary Care Nurse Name: Ravi Diaz RN Position: [facility] Onco RN Member Role: Primary Care Nurse Name: Diana Anderson RN Position: [facility] RN Member Role: Primary Care Nurse Name: Elva Arauz RN Position: [facility] RN Member Role: Primary Care Nurse Name: Thomas Betancur RN Position: [facility] RN Member Role: Primary Care Nurse Name: Vee Mcnamara RN Position: [facility] Health Aide Member Role: Primary Care Nurse Name: Lanny Bolton RN Position: [facility] Onco RN Member Role: Primary Care Nurse Name: Zee Pastrana RN Position: [facility] RN Member Role: Primary Care Nurse Name: Anthony Carolina RN Position: [facility] RN Member Role: Primary Care Nurse Name: Afshan Galeano RN Position: [facility] SN RN Member Role: Primary Care Nurse Name: Kirsty Peters RN Position: [facility] RN Member Role: Primary Care Nurse Name: Reji Bright RN Position: [facility] RN Member Role: Primary Care Nurse Name: Sarah Carson RN Position: [facility] RN Member Role: Primary Care Nurse Name: Amira Hughes RN Position: [facility] RN Member Role: Primary Care Nurse Name: Rina Dunlap LPN Position: [facility] RN Member Role: Primary Care Nurse Name: Linda Rajput RN, I Position: [facility] RN Member Role: Primary Care Nurse Care Team Related Persons Name: SUSY MEADOWS Name: YOANDY TAYLOR Insurance Providers Guarantor name: CATRACHO MEADOWS Health Plan Information #: 1 Payer: MEDICARE B Payer Identifier: NATHANIEL Member Number: [id number] Group Number: [id number] Subscriber Identifier: [id number] Relationship to Subscriber: self Coverage Type: NA Coverage Verification Date: NA Telecom: NA Address: Health Plan Information #: 2 Payer: [employer] Payer Identifier: NATHANIEL Member Number: [id number] Group Number: [id number] Subscriber Identifier: [id number] Relationship to Subscriber: self Coverage Type: MEDICAID Coverage Verification Date: NA Telecom: NA Address:
--- NOTE | ~2025-07-24 | CT_ITS ---
CLINICAL HISTORY: LLQ pain CT abdomen and pelvis with contrast Comparison: CT/REG/SR - CT ABDOMEN PELVIS W IV CON - 07/19/25 12:18 EST Findings: No consolidation or effusion. The spleen demonstrates a couple of subcentimeter granulomas. Prior cholecystectomy. The liver and spleen, left and right kidney, adrenals and pancreas are within normal limits. No bowel obstruction, pneumoperitoneum, or pneumatosis. Suprarenal endovascular stent of the abdominal aorta extending through the mid left and right common iliac arteries. Abdominal aorta 2.5 cm in diameter. Radiopaque surgical sutures in the supraumbilical midline abdominal wall. The distal sigmoid colon prior surgical anastomosis, axial image number 87 of 885 series 4. Prior appendectomy. The prostate is within normal limits. Mild osteopenia. Grade 1 anterolisthesis of the L3 over L4, L4 over L5. IMPRESSION: 1. Suprarenal endovascular stent of the abdominal aorta extending through the mid left and right common iliac arteries. 2. Grade 1 anterolisthesis of L3 over L4, and L4 over L5. 3. No acute intraabdominal or pelvic pathology. This document has been electronically signed by: Julio Pretty MD on 07/24/2025 17:44:51
[2025-07-24 12:16] VITALS: BP 115/75; PULSE 86; RESP 20; TEMP 36.4; O2SAT 98; BMI 28.8
--- NOTE | 2025-07-24 12:18 | ED.GENADULT ---
HPI - General Adult General Chief complaint: Abdominal Pain Stated complaint: Severe stomach pain Time Seen by Provider: 07/24/25 15:37 Source: patient and deaf interpreter ([facility] Barbadian ) Mode of arrival: ambulatory Limitations: language barrier (FAROESE) History of Present Illness ED Provider: NAOMIE LIMON PA-C HPI narrative: 49 year old male with pmhx significant for AAA, diabetes, seizures, HIV on HAART, DVT on Coumadin, diverticulitis presents to the ED today for evaluation of left lower quadrant pain x1 week. Patient was evaluated for similar 1 week ago, diagnosed with Campylobacter colitis and discharged home with azithromycin. He reports taking 3 days of this course however began to feel faint and had a syncopal episode 4 days ago. He was evaluated at [facility] and discharged home after an unremarkable work up. He did not finish the azithromycin course d/t how it made him feel. He presents today with worsening LLQ pain, no radiating to his entire abdomen. Endorses nonbloody diarrhea yesterday. No vomiting. He has not taken anything for the pain. Denies fever, chills, urinary sx. Surgical history includes appendectomy, cholecystectomy, partial colon resection s/p complicated diverticulitis, AAA repair. Related Data Home Medications ?Medication ?Instructions ?Recorded ?Confirmed albuterol sulfate 90 mcg/actuation 2 inh inhalation Q4H PRN 06/26/24 09/25/24 aerosol inhaler (Ventolin HFA) wheezing/sob atorvastatin 80 mg tablet 80 mg PO DAILY 06/26/24 09/25/24 cholecalciferol (vitamin D3) 50 50 mcg PO DAILY 06/26/24 09/25/24 mcg (2,000 unit) capsule darunavir 800 mg-cobicistat 150 mg 1 tab PO DAILY 06/26/24 09/25/24 tablet (Prezcobix) empagliflozin 25 mg tablet 25 mg PO DAILY 06/26/24 09/25/24 (Jardiance) famotidine 20 mg tablet 40 mg PO DAILY 06/26/24 09/25/24 lacosamide 100 mg tablet (Vimpat) 100 mg PO BID 06/26/24 09/25/24 levothyroxine 25 mcg tablet 25 mcg PO DAILY@0600 06/26/24 09/25/24 pantoprazole 40 mg tablet,delayed 40 mg PO DAILY@0630 06/26/24 09/25/24 release raltegravir 600 mg tablet 600 mg PO BID 06/26/24 [facility] tenofovir disoproxil fumarate 300 300 mg PO DAILY 06/26/24 09/25/24 mg tablet trazodone 150 mg tablet 150 mg PO BEDTIME 06/26/24 09/25/24 semaglutide 1 mg/dose (4 mg/3 mL) 1 mg subcut TU 09/25/24 09/25/24 subcutaneous pen injector (Ozempic) warfarin 10 mg tablet 10 mg PO DAILY 09/25/24 09/25/24 Previous Rx's ?Medication ?Instructions ?Recorded fondaparinux 7.5 mg/0.6 mL 7.5 mg (0.6 mL) subcut Q24H #0 mL 09/30/24 subcutaneous solution syringe amoxicillin 875 mg-potassium 1 tab PO BID #16 tabs 04/14/25 clavulanate 125 mg tablet ondansetron HCl 4 mg tablet 4 mg PO Q8H #20 tabs 04/28/25 morphine 10 mg capsule,extended 10 mg PO DAILY PRN pain #4 caps 05/17/25 release pellets levofloxacin 750 mg tablet 750 mg PO Q24H #6 tabs 06/16/25 metronidazole 500 mg tablet 500 mg PO Q8H 7 days #20 tabs 06/16/25 morphine 15 mg immediate release 15 mg PO Q8H PRN pain #10 tabs 06/16/25 tablet ondansetron 4 mg disintegrating 4 mg PO Q8H PRN nausea and 06/16/25 tablet vomiting #10 tabs azithromycin 250 mg tablet See Rx Instructions PO .COMPLEX #6 07/19/25 tabs levofloxacin 750 mg tablet 750 mg PO DAILY 4 days #4 tabs 07/24/25 morphine 15 mg immediate release 15 mg PO Q8H PRN pain (scale score 07/24/25 tablet 7-10) 3 days #9 tabs Allergies Allergy/AdvReac Type Severity Reaction Status Date / Time influenza virus vaccine, Allergy Severe GUILLIAN Verified 07/24/25 12:20 specific (FLU VACCINE) BARRE HX. tramadol (TRAMADOL) Allergy Severe SEIZURES Verified 07/24/25 12:20 acetaminophen (From PERCOCET) Allergy Intermediate ITCHING Verified 07/24/25 12:20 carbamazepine (From TEGRETOL) Allergy Intermediate HALLUCINATI Verified 07/24/25 12:20 ONS lamotrigine (From LAMICTAL) Allergy Intermediate ITCHING Verified 07/24/25 12:20 metoclopramide (From REGLAN) Allergy Intermediate ITCHY Verified 07/24/25 12:20 oxycodone (From PERCOCET) Allergy Intermediate ITCHING Verified 07/24/25 12:20 azithromycin AdvReac Intermediate Unresponsiv Verified 07/24/25 16:44 e SEAFOOD Allergy Severe ANAPHYLAXIS Uncoded 07/24/25 12:20 Review of Systems Review of Systems: Yes all other systems are reviewed and are negative [facility] Past Medical History Attestation statement: The following information was validated with the patient. Source: old records reviewed and nursing notes reviewed Medical History Seizure Popliteal artery aneurysm AAA (abdominal aortic aneurysm) Left sided abdominal pain COVID-19 DVT (deep venous thrombosis) Diabetes Seizure disorder HIV (human immunodeficiency virus infection) Surgical History History of colon resection Status post cholecystectomy Status post laparoscopic appendectomy H/O fasciotomy S/P AAA (abdominal aortic aneurysm) repair S/P IVC filter Social History Social History Household Members: Spouse and Family Housing: House Do you presently have visiting nurse or other home services: No Alcohol intake: never Comment: pt refuses high fall risk precautions Patient Tobacco Use Status: Former Tobacco user Advance Directives Date on File: 09/26/24 service: No Physical Exam ED Vital Signs: Vital Signs - 24 hr 07/24/25 12:16 07/24/25 16:18 Temperature 97.6 F 97.8 F Pulse Rate 86 75 Respiratory Rate 20 16 Blood Pressure 115/75 105/66 Pulse Oximetry 98 99 Oxygen Delivery Method Room Air Room Air BMI result Body Mass Index 28.8 vital signs stable, afebrile General: Well appearing, in no acute distress. Skin: Warm, dry, intact. No rashes or lesions. Head: Normocephalic, atraumatic. EENT: Hearing is intact b/l. Conjunctiva clear. PERRLA. EOM intact. Moist mucous membranes.? Neck: Supple without LAD Cardiac: Chest wall symmetric. RRR Lungs: Normal respiratory effort without accessory muscle use. CTA bilaterally Abdomen: soft, ND, ttp of LLQ, no rebound or guarding. Positive BS x4. no cvat. Back: No midline spinous or paraspinal tenderness. No step off deformity. Ext: Upper and lower extremities atraumatic, without tenderness, deformity, swelling or erythema. Full ROM throughout Neuro: AOx3. Normal speech. Ambulating with steady gait Course Course Course Narrative: Rapid medical examination performed in triage by Elaine Guerrero PA-C: Patient is a 49 year old assigned male at presenting to the emergency department with continued abdominal pain. Patient states he was recently diagnosed with colitis and prescribed azithromycin but he continues to have abdominal pain and nausea. Detailed physical exam and review of systems are deferred to the broiler supervisor. Labs ordered. Patient placed back in the waiting room pending room availability and results. Reevaluation(s) Reevaluation #1: Slight leukopenia to 4.2. h&h stable. chemistry without acute electrolyte abnormality requring intervention. no tere. glucose 129, no anion gap. lactic wnl. blood cultures pending. liver function wnl. UA without infection. GI panel positive for campylobacter. > CT a/p showing: IMPRESSION: 1. Suprarenal endovascular stent of the abdominal aorta extending through the mid left and right common iliac arteries. 2. Grade 1 anterolisthesis of L3 over L4, and L4 over L5. 3. No acute intraabdominal or pelvic pathology. No evidence of residual colitis. d/t patient still being positive for campylobacter in conjunction to him not completing his azithromycin course, will start him on levaquin. > endorses pain relief w/ morphine. he is well appearing. toleraing po. will d/c w/ morphine for pain control. advised PCP/ GI f/u. Patient has remained stable throughout ED visit today. Discussed worrisome signs and symptoms and when to return to the ED. All questions answered at this time. Patient is agreeable with disposition and stable for discharge. Medications Administered Discontinued Medications Generic Name Dose Route Start Last Admin Trade Name Freq PRN Reason Stop Dose Admin Levofloxacin 500 mg in 100 mls @ 100 mls/hr 07/24/25 16:01 07/24/25 18:52 Levaquin IV 07/24/25 17:00 Infused ONCE ONE Infusion Sodium Chloride 1,000 mls @ 999 mls/hr 07/24/25 16:15 07/24/25 18:52 Ns IV 07/24/25 17:15 Infused .Q1H1M HAYLEY Infusion Iohexol 100 ml 07/24/25 17:08 07/24/25 17:08 Iohexol 350 Mg/Ml 100 Ml Infus..Btl IV 07/24/25 17:09 85 ml ONCE ONE Administration Morphine Sulfate 4 mg 07/24/25 16:04 07/24/25 17:27 Morphine Sulfate 4 Mg/Ml Cartridge IVPUSH 07/24/25 16:05 4 mg ONCE ONE Administration Protocol Morphine Sulfate 4 mg 07/24/25 18:40 07/24/25 18:56 Morphine Sulfate 4 Mg/Ml Cartridge IVPUSH 07/24/25 18:41 4 mg ONCE ONE Administration Protocol Ondansetron HCl 4 mg 07/24/25 17:29 07/24/25 17:35 Ondansetron Hcl 4 Mg/2 Ml Vial IVPUSH 07/24/25 17:30 4 mg ONCE ONE Administration Medical Decision Making Medical Decision Making [facility] Narrative: 49 year old male with pmhx significant for AAA, diabetes, seizures, HIV on HAART, DVT on Coumadin, diverticulitis presents to the ED today for evaluation of left lower quadrant pain x1 week. vital signs stable, he is well appearing and in NAD. on exam, soft, ND, ttp of LLQ, no rebound or guarding. Positive BS x4. no cvat. Differential diagnoses: colitis, epiploic appendagitis, diverticulitis, diverticulosis, UTI, constipation Abdominal exam without peritoneal signs. No evidence of acute abdomen at this time. Well appearing. Low suspicion for acute infectious processes (pneumonia, hepatitis, pyelonephritis, PID, TOA), vascular catastrophe, bowel obstruction or viscus perforation, ectopic, testicular torsion, orchitis, epidydymitis. Presentation not consistent with other acute, emergent causes of abdominal pain at this time. Plan: labs, UA, CT AP, pain control, fluids, serial reassessment Differential Diagnosis Differential Diagnoses: The differential diagnosis associated with the presentation includes as above. Admission/Observation not indicated. Lab Data [facility] Lab Attestation statement: I reviewed the patient's lab results. as above. 07/24/25 13:24 07/24/25 13:24 Labs: Lab Results 07/24/25 07/24/25 07/24/25 Range/Units 13:24 16:46 16:47 WBC 4.2 L (4.8-10.8) X10*3/uL RBC 4.45 L (4.60-5.80) X10*6/uL Hgb 13.1 L (14.0-18.0) g/dl Hct 40.4 L (42.0-52.0) % MCV 90.8 (80.0-98.0) fL MCH 29.4 (27.0-33.0) pg MCHC 32.4 (31.0-36.0) g/dl RDW 14.2 (11.0-16.0) % Plt Count 181 (160-400) X10*3/uL MPV 8.9 L (9.4-12.4) fL Immature Gran % (Auto) 0.2 (0.0-0.4) % Neut % (Auto) 36.5 L (45-73) % Lymph % (Auto) 50.5 H (20-40) % Johnson % (Auto) 11.4 H (2-11) % Eos % (Auto) 0.7 (0-4) % Baso % (Auto) 0.7 (0-2) % Lymph # (Auto) 2.1 (1.2-4.9) X10*3/uL Johnson # (Auto) 0.5 (0.1-1.2) X10*3/uL Eos # (Auto) 0.0 (0.0-0.4) X10*3/uL Baso # (Auto) 0.0 (0.0-0.2) X10*3/uL Abs Immat Gran (auto) 0.01 (0.00-0.03) X10*3/uL Absolute Neuts (auto) 1.5 L (2.0-8.3) x10*3/uL Absolute Nucleated RBC 0.000 (0.0-0.012) X10*3/uL Nucleated RBC % (auto) 0.0 (0.0-0.2) /100WBC Sodium 139 (135-145) mmol/L Potassium 4.1 (3.3-5.1) mmol/L Chloride 108 (96-108) mmol/L Carbon Dioxide 23 (22-29) mmol/L Anion Gap 12 (12-20) BUN 15 (9-16) mg/dL Creatinine 1.24 (0.5-1.4) mg/dL Estim Creat Clear Calc 70.4 Estimated GFR > 60 Random Glucose 129 H (60-115) mg/dL Lactic Acid 1.3 (0.5-2.0) mmol/L Calcium 9.2 (8.4-10.2) mg/dL Magnesium 2.3 (1.6-2.6) mg/dL Total Bilirubin 0.3 (0.0-1.0) mg/dL AST 27 (5-37) U/L ALT 29 (0-40) U/L Alkaline Phosphatase 108 (39-117) U/L Total Protein 8.9 H (6.5-8.0) g/dL Albumin 4.5 (3.5-5.0) g/dL Urine Color Urine Appearance Urine pH (5.0-9.0) Ur Specific [place] (1.005-1.025) Urine Protein (Neg-Trace) mg/dL Urine Glucose (UA) (Negative) mg/dL Urine Ketones (Negative) mg/dL Urine Blood (Negative) Urine Nitrite (Negative) Ur Leukocyte Esterase (Negative) Stl C. cayetanensis PCR Not Detected (Not Detect.) Stool Rotavirus A PCR Not Detected (Not Detect.) Stl Adenov F 40/41 PCR Not Detected (Not Detect.) Stool Astrovirus (PCR) Not Detected (Not Detect.) Stool Campylobacter PCR Detected A (Not Detect.) Stool Cryptosporidium PCR Not Detected (Not Detect.) Stl Sh Tox Pr E STEC PCR Not Detected (Not Detect.) Stool E coli O157 PCR Not applicable (Not Detect.) Stl Enterotoxigenic E PCR Not Detected (Not Detect.) Stool EPEC (PCR) Not Detected (Not Detect.) Stool EAEC (PCR) Not Detected (Not Detect.) Stl E. histolytica PCR Not Detected (Not Detect.) Stool Giardia Lamblia PCR Not Detected (Not Detect.) Stl P. shigelloides PCR Not Detected (Not Detect.) Stool Salmonella PCR Not Detected (Not Detect.) Stool Sapovirus (PCR) Not Detected (Not Detect.) Stl Shigella/EIEC PCR Not Detected (Not Detect.) St Y.enterocolitica PCR Not Detected (Not Detect.) Stool Vibrio (PCR) Not Detected (Not Detect.) Stl Vibrio cholerae PCR Not Detected (Not Detect.) Stl Norovirus GI/GII PCR Not Detected (Not Detect.) 07/24/25 Range/Units 18:28 WBC (4.8-10.8) X10*3/uL RBC (4.60-5.80) X10*6/uL Hgb (14.0-18.0) g/dl Hct (42.0-52.0) % MCV (80.0-98.0) fL MCH (27.0-33.0) pg MCHC (31.0-36.0) g/dl RDW (11.0-16.0) % Plt Count (160-400) X10*3/uL MPV (9.4-12.4) fL Immature Gran % (Auto) (0.0-0.4) % Neut % (Auto) (45-73) % Lymph % (Auto) (20-40) % Johnson % (Auto) (2-11) % Eos % (Auto) (0-4) % Baso % (Auto) (0-2) % Lymph # (Auto) (1.2-4.9) X10*3/uL Johnson # (Auto) (0.1-1.2) X10*3/uL Eos # (Auto) (0.0-0.4) X10*3/uL Baso # (Auto) (0.0-0.2) X10*3/uL Abs Immat Gran (auto) (0.00-0.03) X10*3/uL Absolute Neuts (auto) (2.0-8.3) x10*3/uL Absolute Nucleated RBC (0.0-0.012) X10*3/uL Nucleated RBC % (auto) (0.0-0.2) /100WBC Sodium (135-145) mmol/L Potassium (3.3-5.1) mmol/L Chloride (96-108) mmol/L Carbon Dioxide (22-29) mmol/L Anion Gap (12-20) BUN (9-16) mg/dL Creatinine (0.5-1.4) mg/dL Estim Creat Clear Calc Estimated GFR Random Glucose (60-115) mg/dL Lactic Acid (0.5-2.0) mmol/L Calcium (8.4-10.2) mg/dL Magnesium (1.6-2.6) mg/dL Total Bilirubin (0.0-1.0) mg/dL AST (5-37) U/L ALT (0-40) U/L Alkaline Phosphatase (39-117) U/L Total Protein (6.5-8.0) g/dL Albumin (3.5-5.0) g/dL Urine Color Yellow Urine Appearance Clear Urine pH 7.0 (5.0-9.0) Ur Specific [place] >= 1.030 H (1.005-1.025) Urine Protein Negative (Neg-Trace) mg/dL Urine Glucose (UA) Negative (Negative) mg/dL Urine Ketones Negative (Negative) mg/dL Urine Blood Negative (Negative) Urine Nitrite Negative (Negative) Ur Leukocyte Esterase Negative (Negative) Stl C. cayetanensis PCR (Not Detect.) Stool Rotavirus A PCR (Not Detect.) Stl Adenov F 40/41 PCR (Not Detect.) Stool Astrovirus (PCR) (Not Detect.) Stool Campylobacter PCR (Not Detect.) Stool Cryptosporidium PCR (Not Detect.) Stl Sh Tox Pr E STEC PCR (Not Detect.) Stool E coli O157 PCR (Not Detect.) Stl Enterotoxigenic E PCR (Not Detect.) Stool EPEC (PCR) (Not Detect.) Stool EAEC (PCR) (Not Detect.) Stl E. histolytica PCR (Not Detect.) Stool Giardia Lamblia PCR (Not Detect.) Stl P. shigelloides PCR (Not Detect.) Stool Salmonella PCR (Not Detect.) Stool Sapovirus (PCR) (Not Detect.) Stl Shigella/EIEC PCR (Not Detect.) St Y.enterocolitica PCR (Not Detect.) Stool Vibrio (PCR) (Not Detect.) Stl Vibrio cholerae PCR (Not Detect.) Stl Norovirus GI/GII PCR (Not Detect.) Independent Interpretation I performed an independent interpretation of an: CT Scan Interpretation: ct a/p w/o bowel obstruction Radiology Impression Discussion of test interpretation with radiology: I have reviewed the radiologist's reading. Radiologist Impression: Date of Service: 07/24/25 Procedure(s): CT abdomen pelvis w IV con Accession Number(s): [id number] cc: Physician,Unknown ; Naomie Limon~ Report Number: [id number]: Total DLP = 562.00 mGy-cm Reason for Exam: LLQ pain CLINICAL HISTORY: LLQ pain CT abdomen and pelvis with contrast Comparison: CT/REG/SR - CT ABDOMEN PELVIS W IV CON - 07/19/25 12:18 EST Findings: No consolidation or effusion. The spleen demonstrates a couple of subcentimeter granulomas. Prior cholecystectomy. The liver and spleen, left and right kidney, adrenals and pancreas are within normal limits. No bowel obstruction, pneumoperitoneum, or pneumatosis. Suprarenal endovascular stent of the abdominal aorta extending through the mid left and right common iliac arteries. Abdominal aorta 2.5 cm in diameter. Radiopaque surgical sutures in the supraumbilical midline abdominal wall. The distal sigmoid colon prior surgical anastomosis, axial image number 87 of [id number] series 4. Prior appendectomy. The prostate is within normal limits. Mild osteopenia. Grade 1 anterolisthesis of the L3 over L4, L4 over L5. IMPRESSION: 1. Suprarenal endovascular stent of the abdominal aorta extending through the mid left and right common iliac arteries. 2. Grade 1 anterolisthesis of L3 over L4, and L4 over L5. 3. No acute intraabdominal or pelvic pathology. This document has been electronically signed by: Julio Pretty MD on 07/24/2025 17:44:51 Independent Historian Clinical information obtained from an independent historian. History obtained from or confirmed by: Spouse External Record Review External record reviewed: Inpatient record, Office record, Outpatient record and Prior outpatient labs Prescription Management I considered prescription management with: Pain Medication and Antibiotic Chronic Conditions Patient?s care impacted by: Other (HIV) Social Determinants Patient?s care significantly limited by Social Determinants of Health including: Other Social Determinant of Health Critical Care Time Critical Care Time Critical Care Time: Yes Total Critical Care Time: 35 Attestation: Critical care time in the amount of 35 minutes has been provided to the patient in terms of direct patient care, frequent reevaluation, review and interpretation of medical data and results, and management of potentially life-threatening conditions. This is all outside of any medical procedures. Discharge Plan Discharge Clinical Impression: Abdominal pain Patient Disposition: Home, Self-Care Instructions: Abdominal Pain (ED) Additional Instructions: Your blood work is reassuring. The CT scan shows resolution of your colitis. You did not complete your azithromycin for Campylobacter. I am starting you on levofloxacin. Please take this to completion. You received your first dose in ED today. Take your next dose tomorrow. I am sending morphine to your pharmacy for pain control. Please follow up with PCP/ GI doctor. Return with any new/ worsening symptoms. In the case of an emergency call 911. Prescriptions: New levofloxacin 750 mg tablet 750 mg PO DAILY 4 Days Qty: 4 0RF morphine 15 mg tablet 15 mg PO Q8H PRN (Reason: pain (scale score 7-10)) 3 Days Qty: 9 0RF Rx Instructions: Partial Fill upon patient request. No Action warfarin 10 mg tablet 10 mg PO DAILY Ozempic 1 mg/dose (4 mg/3 mL) pen injector 1 mg subcut TU fondaparinux 7.5 mg/0.6 mL Syringe 7.5 mg subcut Q24H Qty: 0 0RF amoxicillin-pot clavulanate 875-125 mg tablet 1 tab PO BID Qty: 16 0RF metronidazole 500 mg tablet 500 mg PO Q8H 7 Days Qty: 20 0RF levofloxacin 750 mg tablet 750 mg PO Q24H Qty: 6 0RF ondansetron 4 mg tablet,disintegrating 4 mg PO Q8H PRN (Reason: nausea and vomiting) Qty: 10 0RF morphine 15 mg tablet 15 mg PO Q8H PRN (Reason: pain) Qty: 10 0RF Rx Instructions: Partial Fill upon patient request. atorvastatin 80 mg tablet 80 mg PO DAILY famotidine 20 mg tablet 40 mg PO DAILY lacosamide [Vimpat] 100 mg tablet 100 mg PO BID levothyroxine 25 mcg tablet 25 mcg PO DAILY@0600 pantoprazole 40 mg tablet,delayed release (DR/EC) 40 mg PO DAILY@0630 trazodone 150 mg tablet 150 mg PO BEDTIME tenofovir disoproxil fumarate 300 mg tablet 300 mg PO DAILY cholecalciferol (vitamin D3) 50 mcg (2,000 unit) capsule 50 mcg PO DAILY Jardiance 25 mg tablet 25 mg PO DAILY Prezcobix 800-150 mg-mg tablet 1 tab PO DAILY Isentress HD 600 mg tablet 600 mg PO BID albuterol sulfate [Ventolin HFA] 90 mcg/actuation HFA aerosol inhaler 2 inh inhalation Q4H PRN (Reason: wheezing/sob) ondansetron HCl 4 mg tablet 4 mg PO Q8H Qty: 20 0RF morphine 10 mg capsule,extend.release pellets 10 mg PO DAILY PRN (Reason: pain) Qty: 4 0RF Rx Instructions: Partial Fill upon patient request. azithromycin 250 mg tablet See Rx Instructions .ROUTE .COMPLEX Qty: 6 0RF Rx Instructions: take 500 mg today (day 1), then 250 mg for 4 days (days 2-5) Referrals: [facility] [Provider Group, Gastroenterology] Physician,Unknown J [Primary Care Provider, Medical] Discharge Date/Time: 07/24/25 19:07 Print Language: Barbadian
[2025-07-24 13:28] LABS: MANUAL DIFF FLAG NO
[2025-07-24 13:30] LABS: Hematocrit 40.4 % (42.0-52.0); Hemoglobin 13.1 g/dl (14.0-18.0); Imm Gran Abs Auto 0.01 X10*3/uL (0.00-0.03); Imm Gran Pct Auto 0.2 % (0.0-0.4); Lymphocytes Absolute Auto 2.1 X10*3/uL (1.2-4.9); Mean Corpuscular HGB Conc 32.4 g/dl (31.0-36.0); Mean Corpuscular Hemoglobin 29.4 pg (27.0-33.0); Mean Corpuscular Volume 90.8 fL (80.0-98.0); NRBC Abs Auto 0.000 X10*3/uL (0.0-0.012); NRBC Pct Auto 0.0 /100WBC (0.0-0.2); Platelet Count 181 X10*3/uL (160-400); Red Blood Count 4.45 X10*6/uL (4.60-5.80); White Blood Count 4.2 X10*3/uL (4.8-10.8)
[2025-07-24 13:50] LABS: Alanine Aminotransferase 29 U/L (0-40); Albumin Level 4.5 g/dL (3.5-5.0); Alkaline Phosphatase 108 U/L (39-117); Anion Gap 12 (12-20); Aspartate Amino Transferase 27 U/L (5-37); Blood Urea Nitrogen 15 mg/dL (9-16); Calcium 9.2 mg/dL (8.4-10.2); Carbon Dioxide 23 mmol/L (22-29); Chloride 108 mmol/L (96-108); Creatinine Clr Calc Pharmacy 70.4; Estimated Glomerular Filt Rate > 60; Magnesium 2.3 mg/dL (1.6-2.6); Potassium 4.1 mmol/L (3.3-5.1); Sodium 139 mmol/L (135-145); Total Protein 8.9 g/dL (6.5-8.0)
--- OUTSIDE RECORDS SUMMARY | 2025-07-24 15:28 | XMS_ITS | Clinical Summary ---
Author Organization [facility] Address [address] [place] [address] Care Team Providers Care Exhibits Manager Name Role Phone Thomas Kam Primary Care Provider [phone] Allergies Active Allergy Reactions Criticality Noted Date [...] EDT - 06/07/2025 4:41 PM EDT Emergency [facility] Emergency Department [address] [place] [address] Ronen Farris MD Abdominal pain (Primary Dx) [...] the original result was not included. Department: [facility] Lab Patient: [id number] (CARLOS GONZALEZ) Patient Location: ED CPT Code: 37701 ICD-9: Referring Physician: RONEN FARRIS Right lower [...] Note Jose Edwards MD - 06/07/2025 Department: [facility] Patient: [id number] (CARLOS GONZALEZ) Patient Location: [facility] CPT Code: 61113 ICD-9: Referring Physician: RONEN FARRIS Right lower [...] for mesenteric ischemia DESCRIPTION: Initial noncontrast localizing robotic technician images were obtained. A timing bolus at [...] for mesenteric ischemia DESCRIPTION: Initial noncontrast localizing robotic technician images were obtained. A timing bolus at [...] Fleischner guidelines were followed. Ronen Farris MD [facility] CT ORDERABLES Final Result * (ABNORMAL) INR (06/07/2025 12:02 PM EDT) Anticoagulant WARFARIN (COUMADIN) 06/07/2025 11:19 AM EDT [facility] Prothrombin Time (PT) 27.7(H) 10.0 - 13.5 seconds 06/07/2025 1:14 PM EDT [facility] INR 2.4 06/07/2025 1:14 PM EDT [facility] Comment:INR Therapeutic Rang es: Standard dose anticoagulant 2.0 to 3.0, High dose anticoagulant 2.5-3.5. Blood Blood specimen / Unknown 06/07/2025 12:02 PM EDT 06/07/2025 12:57 PM EDT Ronen Farris MD LAB [place]LOOD [place] [address], [place] [address] * Troponin T, High Sensitivity (06/07/2025 10:29 AM EDT) Pathologist [facility] High Sensitivity Troponin T 7 <23 ng/L 06/07/2025 11:34 AM EDT [facility] Delta (Change) NO PREVIOUS RESULT <3 06/07/2025 11:34 AM EDT [facility] Blood Blood specimen / Unknown 06/07/2025 10:29 AM EDT 06/07/2025 11:05 AM EDT Joaquina PEREZ LAB BLOOD [place]AB[place] [address], [place] [address] * (ABNORMAL) Complete Blood Count, with Differential (06/07/2025 10:29 AM EDT) White Blood Cell Count 3.9(L) 4.0 - 11.0 Thou/uL 06/07/2025 11:16 AM [facility] Platelet Count 183 150 - 450 Thou/uL 06/07/2025 11:16 AM [facility] Hemoglobin 12.5(L) 13.0 - 17.7 g/dL 06/07/2025 11:16 AM [facility] Hematocrit 38.3(L) 39.0 - 54.0 % 06/07/2025 11:16 AM [facility] Red Blood Cell Count 4.26(L) 4.50 - 6.20 Mil/uL 06/07/2025 11:16 AM [facility] MCV 90 80 - 100 fL 06/07/2025 11:16 AM [facility] MCH 29.3 27.0 - 31.0 pg 06/07/2025 11:16 AM [facility] MCHC 32.6 30.0 - 36.0 g/dL 06/07/2025 11:16 AM [facility] RDW 15.1(H) 11.5 - 14.5 % 06/07/2025 11:16 AM [facility] MPV 9.7 7.5 - 12.5 fL 06/07/2025 11:16 AM [facility] Neutrophils Auto 51.2 % 06/07/20 11:16 AM [facility] Immature Granulocytes 0.0 % 06/07/2025 11:16 AM [facility] Lymphocytes Auto 38.9 % 06/07/20 11:16 AM [facility] Monocytes Auto 8.9 % 06/07/2025 11:16 AM [facility] Eosinophils Auto 0.5 % 06/07/20 11:16 AM [facility] Basophils Auto 0.5 % 06/07/2025 11:16 AM [facility] Abs Neutrophils Auto 2.01 2.00 - 7.50 Thou/uL 06/07/2025 11:16 AM [facility] Abs Immature Granulocytes 0.00 0.00 - 0.10 Thou/uL 06/07/2025 11:16 AM [facility] Abs Lymphocytes Auto 1.53 1.50 - 4.50 Thou/uL 06/07/2025 11:16 AM [facility] Abs Monocytes Auto 0.35 0.20 - 1.50 Thou/uL 06/07/2025 11:16 AM EDT [facility] Abs Eosinophils Auto 0.02 0.00 - 0.70 Thou/uL 06/07/2025 11:16 AM EDT [facility] Abs Basophils Auto 0.02 0.00 - 0.20 Thou/uL 06/07/2025 11:16 AM EDT [facility] Blood Blood specimen / Unknown 06/07/2025 10:29 AM EDT 06/07/2025 11:05 AM EDT us Joaquina L Sirrine PA LAB BLOOD [place]AB[place] [address], [place] [address] * Lipase (06/07/2025 10:29 AM EDT) Lipase 18 13 - 60 U/L 06/07/2025 11:34 AM EDT [facility] Blood Blood specimen / Unknown 06/07/2025 10:29 AM EDT 06/07/2025 11:05 AM EDT us Joaquina L Sirrine PA LAB BLOOD ORDERABLES Agueda l Result Performing Organization Address City/[facility]/[place] [address], [place] [address] * Hepatic Function Panel (06/07/2025 10:29 AM EDT) Alkaline Phosphatase 107 45 - 128 U/L 06/07/2025 11:34 AM EDT [facility] Aspartate Aminotrans (AST) 31 10 - 55 U/L 06/07/2025 11:34 AM EDT [facility] Alanine Aminotrans (ALT) 34 10 - 55 U/L 06/07/2025 11:34 AM EDT [facility] Bilirubin, Total 0.3 0.2 - 1.0 mg/dL 06/07/2025 11:34 AM EDT [facility] Protein, Total 7.8 6.3 - 8.3 g/dL 06/07/2025 11:34 AM [facility] Albumin 3.9 3.5 - 5.0 g/dL 06/07/2025 11:34 AM [facility] Bilirubin, Direct 0.1 0 - 0.2 mg/dL 06/07/2025 11:34 AM [facility] Globulin 3.9 1.5 - 3.9 g/dL 06/07/2025 11:34 AM [facility] Albumin/Globulin Ratio 1.0 1.0 - 3.0 Ratio 06/07/2025 11:34 AM [facility] Blood Blood specimen / Unknown 06/07/2025 10:29 AM EDT 06/07/2025 11:05 AM EDT Joaquina PEREZ LAB BLOOD ORDERABLES Agueda vincent Result Performing Organization Address City/State/[place] [address], [address] [address] * (ABNORMAL) Basic Metabolic Panel (06/07/2025 10:29 AM EDT) Glucose 175(H) 65 - 99 mg/dL 06/07/2025 11:34 AM [facility] Comment:Fasting: <100 mg/dL, Non-Fasting: <200 mg/dL (ADA 2004) Blood Urea Nitrogen (BUN) 12 8 - 21 mg/dL 06/07/2025 11:34 AM [facility] Creatinine 1.02 0.50 - 1.30 mg/dL 06/07/2025 11:34 AM [facility] eGFR 89 >59 06/07/2025 11:34 AM [facility] Comment:CKD-EPI (2020) in mL /min/1.73 sq meters. Sodium 136 136 - 145 mmol/L 06/07/2025 11:34 AM [facility] Potassium 3.9 3.4 - 5.3 mmol/L 06/07/2025 11:34 AM [facility] Chloride 103 98 - 107 mmol/L 06/07/2025 11:34 AM EDT [facility] CO2 21(L) 22 - 33 mmol/L 06/07/2025 11:34 AM EDT [facility] Anion Gap 12 7 - 17 06/07/2025 11:34 AM EDT [facility] Calcium 8.8 8.7 - 10.5 mg/dL 06/07/2025 11:34 AM EDT [facility] BUN/Creatinine Ratio 12 10.0 - 25.0 Ratio 06/07/2025 11:34 AM EDT [facility] Blood Blood specimen / Unknown 06/07/2025 10:29 AM EDT 06/07/2025 11:05 AM EDT Joaquina PEREZ LAB BLOOD ORDERABLES Agueda vincent Result [address] [address], [address] [address] * 10 Min ECG 12 lead (06/07/2025 9:45 AM EDT) Ventricular rate 92 BPM EKG [facility] Atrial rate 92 BPM EKG [facility] P-R interval 142 ms EKG [facility] QRS duration 88 ms EKG [facility] Q-T interval 362 ms EKG [facility] QTC calculation (Bazett) 448 ms EKG [facility] P axis 50 degrees EKG [facility] R axis 37 degrees EKG [facility] T axis 21 degrees EKG [facility] 06/07/2025 9:45 AM EDT Narrative EKG [facility] - 06/07/2025 12:05 PM EDT Normal sinus rhythm Normal ECG When compared with ECG of 29-Oct-2024 15:49, No significant change was found Confirmed by Chema Mckeon MD ([id number]) on 06/07/2025 12:05:00 PM Procedure Note Chema Mckeon MD - 06/07/2025 Normal sinus rhythm Normal ECG When compared with ECG of 29-Oct-2024 15:49, No significant change was found Confirmed by Chema Mckeon MD ([id number]) on 06/07/2025 12:05:00 PM us Mandi Tavarez MD ECG ORDERABLES Final Result EKG [facility] from Last 3 Months Insurance [facility] MEDICARE PART A & B Care Teams Exhibits Manager Relationship Specialty Start Date End Date Thomas Kam PA PCP - General Emergency Medicine 03/03/23
--- OUTSIDE RECORDS SUMMARY | 2025-07-24 15:28 | XMS_ITS | Clinical Summary ---
Author Organization [facility] beds at the [facility] Address [address] [place] [address] Care Team Providers Care Public Transit Trolley Driver Name Role Phone Thomas Kam Primary Care [...] age to complete this topic Care Teams Public Transit Trolley Driver Relationship Specialty Start Date End Date Thomas Kam PA [address] [place] [address] PCP - General Physician [place] 02/16/23
--- OUTSIDE RECORDS SUMMARY | 2025-07-24 15:28 | XMS_ITS | Encounter Summary ---
Author Organization [facility] Address [address] [facility] [address] [address] [place] [phone] Phone Care Team Providers Care Squaring Machine Operator Name Role Phone Pcp, Unknown Primary Care Provider Unavailabl e Denise Weiner PA-C Primary Care Provider Pcp, Unknown Primary Care Provider Unavailabl e Encounter Details Date Type Department Care Team (Late st Contact Info) Description 05/14/2025 Procedure Pass [facility], Ct Scan - [facility] [address] [place] [address] Social History Tobacco Use Types Packs/Day Years [...] 9:56 AM EDT Clay Yost, BLANCO * [place] Suicide Severity Rating Scale (Screener/Recent Self-Report) Question [...] documented as of this encounter Care Teams Squaring Machine Operator Relationship Specialty Start Date End Date Pcp, Unknown PCP - General 05/16/25 06/07/25 Denise Weiner PA-C [address] [place] [id number] [email or web address] PCP - General Physician Cafeteria Assistant 05/15/25 05/15/25 Pcp, Unknown PCP - General 06/08/25 documented as of this encounter Additional Source Comments The information contained in this document represents components of the legal health record. It is not the complete legal health record.[facility]
--- OUTSIDE RECORDS SUMMARY | 2025-07-24 15:28 | XMS_ITS | Encounter Summary ---
Author Organization [facility] Address [address] [place] [phone] Phone Care Team Providers Care Range Conservationist Name Role Phone Pcp, Unknown Primary Care Provider Unavailabl e Encounter Details Date Type Department Care Team (Late st Contact Info) Description 06/08/2025 Procedure Pass [facility], Ct Scan - [address] [address] Social History Tobacco Use Types Packs/Day Years [...] 1:10 PM EDT Umu Bai RN * [place] Suicide Severity Rating Scale (Screener/Recent Self-Report) Question [...] documented as of this encounter Care Teams Range Conservationist Relationship Specialty Start Date End Date Pcp, Unknown PCP - General 06/08/25 documented as of this encounter Additional Source Comments The information contained in this document represents components of the legal health record. It is not the complete legal health record.[facility]
--- OUTSIDE RECORDS SUMMARY | 2025-07-24 15:28 | XMS_ITS | Encounter Summary ---
Author Organization [facility] Address [address] [place] [phone] Phone Care Team Providers Care Moss Picker Name Role Phone Pcp, Unknown Primary Care Provider Unavailabl e Encounter Details Date Type Department Care Team (Late st Contact Info) Description 07/13/2025 Procedure Pass [facility], Ct Scan - [address] [address] Social History Tobacco Use Types Packs/Day Years [...] No Risk Indicated 07/13/2025 12:52 PM Lizet Lloyd RN * [place] Suicide Severity Rating Scale (Screener/Recent Self-Report) Question [...] on filedocumented in this encounter Care Teams Moss Picker Relationship Specialty Start Date End Date Pcp, Unknown PCP - General 06/08/25 documented as of this encounter Additional Source Comments The information contained in this document represents components of the legal health record. It is not the complete legal health record.[facility]
--- OUTSIDE RECORDS SUMMARY | 2025-07-24 15:28 | XMS_ITS | Clinical Summary ---
Author Organization [address] [address] Phone Care Team Providers Care Cdl Team Truck Driver Name Role Phone Pcp, Does Not Have [...] 20 - 30 mmol/L 04/29/2023 1:19 PM [facility] DEPARTMENT OF LABORATORY MEDICINE Anion Gap 11 7 - 17 04/29/2023 1:19 PM [facility]MENT OF LABORATORY MEDICINE Glucose 181(H) 70 - 100 mg/dL 04/29/2023 1:19 PM [facility] OF LAB[facility]ATORY MEDICINE BUN 12 6 - 20 mg/dL 04/29/2023 1:19 PM [facility] OF LAB[facility]ATORY MEDICINE Creatinine 1.17 0.40 - 1.30 mg/dL 04/29/2023 1:19 PM [facility] OF LABORATORY MEDICINE Calcium 9.2 8.8 - 10.2 mg/dL 04/29/2023 1:19 PM [facility] DEPARTMENT OF LABORATORY MEDICINE BUN/Creatinine Ratio 10.3 8.0 - 23.0 04/29/2023 1:19 PM [facility] DEPARTMENT OF LABORATORY MEDICINE Total Protein 8.7 6.6 - 8.7 g/dL 023 1:19 PM [facility] DEPARTMENT OF LABORATORY MEDICINE Albumin 4.5 3.6 - 4.9 g/dL 04/29/2023 1:19 PM [facility] DEPARTMENT OF LABORATORY MEDICINE Total Bilirubin 0.5 <=1.2 mg/dL 04/29/20 1:19 PM [facility] OF LABORATORY MEDICINE Alkaline Phosphatase 155(H) 9 - 122 U/L 04/29/2023 1:19 PM [facility] OF LABORATORY MEDICINE Alanine Aminotransferase (ALT) 45 9 - 59 U/L 04/29/2023 1:19 PM [facility]ORY MEDIC[facility] Comment:Calcium dobesilate c an cause artificially low ALT results at therapeutic concentrations Aspartate Aminotransferase (AST) 51(H) 10 - 35 U/L 04/29/2023 1:19 PM [facility]MENT OF LABORATORY MEDICINE Globulin 4.2(H) 2.3 - 3.5 g/dL 04/29/2023 1:19 PM [facility] DEPARTMENT OF LABORATORY MEDICINE A/G Ratio 1.1 1.0 - 2.2 04/29/2023 1:19 PM [facility] DEPARTMENT OF LABORATORY MEDICINE AST/ALT Ratio 1.1 Reference Range Not Established 04/29/2023 1:19 PM EDT [facility] DEPARTMENT OF LABORATORY MEDICINE eGFR (Creatinine) >60 >=60 mL/min/1.73m2 04/29/2023 1:19 PM EDT [facility] OF LAB[facility]ATORY MEDICINE Comment: Values < 60 mL/min/1.73 m2 may indicate CKD if present for more than three months AND creatinine is at steady state. The eGFR provides a rough estimate of kidney function. On 04/11/22 all [facility] Clinical Labs and Epic began using a [id number] formula for estimating GFR called CKD-EPI Creatinine 2020. This equation reports eGFR based on creatinine, patient age, clinical sex, and is standardized to a body surface area of 1.73 m2. For the same creatinine, this new race-free eGFR will be lower than prior reported Black eGFR results and higher than prior Non-Black eGFR results. For further guidance, please refer to the CKD: Adult Donor Services Team Leader Signature pathway. Blood Venipuncture / Unknown 04/29/2023 12:45 PM EDT 04/29/2023 12:52 PM EDT us Kurt Akins MD LAB BLOOD ORDERABLES Final Resu lt [facility] DEPARTMENT OF LABORATORY MEDICINE [address] [place] [address], [facility] [phone] from Last 3 Months or Most Recently Relevant to Health Maintenance Insurance MEDICARE [id number] MEDICAID MEDICARE [id number] MEDICAID MEDICARE [id number] MEDICAID Care Teams Cdl Team Truck Driver Relationship Specialty Start Date End Date Pcp, Does Not Have A PCP - General 04/29/23
--- OUTSIDE RECORDS SUMMARY | 2025-07-24 15:28 | XMS_ITS | Clinical Summary ---
Author Organization [facility] Address [address] [place] [phone] Phone Care Team Providers Care Laboratory Chemist Name Role Phone Pcp, Unknown Primary Care Provider Unavailabl e Allergies Active Allergy Reactions Criticality Noted Date Comments Acetaminophen Hives,Itching,Unknow n High 02/11/2022 Other reaction(s): Unknown/Patient and Family Unable to Define Dexamethasone 06/08/2025 Other Reaction(s): Itching of male genital organs itching of face and rectum Fish Containing Products 10/02/2018 Fish Derived Unknown Medium 02/11/2022 Flu Vaccine [id number](6mos Up) 05/14/2025 Influenza Virus Vaccines Unknown Medium 02/11/2022 Hx of Guillain - [place] Ketorolac Rash Low 10/13/2024 Lamotrigine 05/14/2025 Shellfish Containing Products 05/14/2025 Oxycodone Itching,Unknown Medium 11/30/2018 Other Reaction(s): itch, Unspecified Oxycodone Other reaction(s): Unknown/Patient and Family Unable to Define Oxycodone-Acetaminophen 05/14/2025 Carbamazepine 05/14/2025 Tramadol 05/14/2025 Medications No known medications Encounters Date Type Department Care Team Description 07/13/2025 12:54 PM EST - 07/13/2025 7:45 PM EST Emergency [facility] [address] [place] [address] Discharge Disposition: Home or Self Care 07/13/2025 Procedure Pass [facility], Ct Scan - [facility] [address] [place] [address] 06/08/2025 3:16 PM EDT - 06/08/2025 11:35 PM EDT Emergency [facility] Emergency [address] [place] [address] Mark Garcia MD Discharge Disposition: Home or Self Care 06/08/[address] [address] 06/08/[address] [address] 05/16/2025 9:30 AM EDT - 05/16/2025 11:59 PM EDT Hospital Encounter [facility] Phleb [address] [address] Denise Weiner PA-C Discharge Disposition: Home or Self Care 05/16/2025 Transcribe Orders [address] [address] Denise Weiner PA-C Diarrhea, unspecified type (Primary Dx) 05/16/2025 Transcribe Orders [facility] [address] [address] Denise Weiner PA-C Diarrhea, unspecified type (Primary Dx) 05/15/2025 9:13 AM EDT - 05/15/2025 11:59 PM EDT Hospital Encounter [facility] Specimen Processing [address] [place] [address] Denise Weiner PA-C Discharge Disposition: Home or Self Care 05/14/2025 9:56 AM EDT - 05/14/2025 6:00 PM EDT Emergency [facility] Emergency [address] [place] [address] Mark Garcia MD [facility], Xavi Elizabeth MD Discharge Disposition: Home or Self Care 05/14/2025 Procedure [facility], [address] [address] 05/14/[address] [address] from Last 3 Months Social History Tobacco [...] clinician's provided indication for this examination in [facility]: Left Leg Pain; Right Leg Pain Review [...] clinician's provided indication for this examination in [facility]:Left Leg Pain; Right Leg Pain Review of [...] - 13.0 sec 07/13/2025 2:59 PM EST [facility] INR 1.0 0.9 - 1.1 07/13/2025 2:59 PM EST [facility] Comment:Therapeutic Range 2. 0 - 3.5 Blood (Blood) Venipuncture / Unknown 07/13/2025 2:29 PM EST 07/13/2025 2:41 PM EST us Kailey Mullins PA-C LAB BLOOD BKR ORDERAB LES Final Result [facility] [address] [place] [address] * (ABNORMAL) CBC and Differential (07/13/2025 2:28 PM EST) WBC 6.78 4.00 - 11.00 K/uL 07/13/2025 2:53 PM [facility] RBC 4.03(L) 4.50 - 5.90 M/uL 07/13/2025 2:53 PM [facility] Hemoglobin 12.0(L) 13.5 - 17.5 g/dL 07/13/2025 2:53 PM [facility] Hematocrit 37.2(L) 41.0 - 53.0 % 07/13/2025 2:53 PM [facility] MCV 92.3 80.0 - 100.0 fL 07/13/2025 2:53 PM [facility] MCH 29.8 27.0 - 31.0 pg 07/13/2025 2:53 PM [facility] MCHC 32.3 32.0 - 36.0 g/dL 07/13/2025 2:53 PM [facility] MPV 9.5 8.4 - 12.0 fL 07/13/2025 2:53 PM [facility] RDW-CV 14.6(H) 11.5 - 14.5 % 07/13/2025 2:53 PM [facility] PLT 159 150 - 450 K/uL 07/13/2025 2:53 PM [facility] Neutrophils 56.8 % 07/13/2025 2:53 PM [facility] Lymphocytes 33.5 % 07/13/2025 2:53 PM [facility] Monocytes 8.7 % 07/13/2025 2:53 PM [facility] Eosinophils 0.3 % 07/13/2025 2:53 PM [facility] Basophils 0.4 % 07/13/2025 2:53 PM [facility] Imm Grans 0.3 % 07/13/2025 2:53 PM [facility] NRBC 0.0 <=0.0 /100 WBCs 07/13/2025 2:53 PM [facility] Absolute Neutrophils 3.85 1.92 - 7.60 K/uL 07/13/2025 2:53 PM [facility] Absolute Lymphocytes 2.27 0.72 - 4.10 K/uL 07/13/2025 2:53 PM [facility] Absolute Monocytes 0.59 0.16 - 1.10 K/uL 07/13/2025 2:53 PM [facility] Absolute Eosinophils 0.02 0.00 - 0.50 K/uL 07/13/2025 2:53 PM [facility] Absolute Basophils 0.03 0.00 - 0.15 K/uL 07/13/2025 2:53 PM [facility] Absolute Imm Grans 0.02 0.00 - 0.09 K/uL 07/13/2025 2:53 PM [facility] Absolute NRBC 0.00 <=0.00 K cells/uL 07/13/2025 2:53 PM [facility] Absolute Neutrophils 3.85 1.92 - 7.60 K/uL 07/13/2025 2:53 PM [facility] Comment:Automated cell count . Manual ANC may differ if performed. Diff Type Auto 07/13/2025 2:53 PM [facility] Blood (Blood) Venipuncture / Unknown 07/13/2025 2:28 PM EST 07/13/2025 2:41 PM EST us Kailey Mullins PA-C LAB BLOOD BKR ORDERAB LES Final Result [address] [address] * Hepatic Panel (LFTs) (07/13/2025 2:28 PM EST) Only the most recent of3 resultswithin the time period is included. AST 25 <40 U/L 07/13/2025 3:29 PM [facility] ALT 25 <50 U/L 07/13/2025 3:29 PM [facility] Alkaline Phosphatase 105 40 - 130 U/L 07/13/2025 3:29 PM [facility] Bilirubin, Total 0.4 0.0 - 1.2 mg/dL 07/13/2025 3:29 PM [facility] Bilirubin, Direct 0.1 0.0 - 0.3 mg/dL 07/13/2025 3:29 PM [facility] Total Protein 8.3 6.4 - 8.3 g/dL 07/13/2025 3:29 PM [facility] Albumin 4.3 3.5 - 5.2 g/dL 07/13/2025 3:29 PM [facility] Globulin 4.0 1.9 - 4.1 g/dL 07/13/2025 3:29 PM [facility] Blood (Blood) Venipuncture / Unknown 07/13/2025 2:28 PM EST 07/13/2025 2:41 PM EST us Kailey Mullins PA-C LAB BLOOD BKR ORDERAB LES Final Result Performing Organization Address City/[facility]/ZIP Co de Phone Number [address] [address] * Lipase (07/13/2025 2:28 PM EST) Only the most recent of3 resultswithin the time period is included. Pathologist [facility] Lipase 17 13 - 60 U/L 07/13/2025 3:29 PM [facility] Blood (Blood) Venipuncture / Unknown 07/13/2025 2:28 PM EST 07/13/2025 2:41 PM EST us Kailey PEREZ-Zhen LAB BLOOD BKR ORDERAB LES Final Result [address] [address] * (ABNORMAL) Basic Metabolic Panel (BMP) (07/13/2025 2:28 PM EST) Only the most recent of3 resultswithin the time period is included. Sodium 135(L) 136 - 145 mmol/L 07/13/2025 3:29 PM [facility] Potassium 4.4 3.4 - 5.1 mmol/L 07/13/2025 3:29 PM [facility] Chloride 102 98 - 107 mmol/L 07/13/2025 3:29 PM [facility] CO2 25 20 - 31 mmol/L 07/13/2025 3:29 PM [facility] Anion Gap 8 3 - 17 mmol/L 07/13/2025 3:29 PM [facility] BUN 10 6 - 23 mg/dL 07/13/2025 3:29 PM [facility] Creatinine 1.00 0.60 - 1.30 mg/dL 07/13/2025 3:29 PM [facility] eGFR 91 >59 mL/min/1.7 3m2 07/13/2025 3:29 PM [facility] Comment:Estimated glomerular filtration rate calculated using the CKD-EPI refit equation. Glucose 134(H) 70 - 99 mg/dL 07/13/2025 3:29 PM [facility] Calcium 9.1 8.5 - 10.5 mg/dL 07/13/2025 3:29 PM [facility] Blood (Blood) Venipuncture / Unknown 07/13/2025 2:28 PM EST 07/13/2025 2:41 PM EST us Kailey Mullins PA-C LAB BLOOD BKR ORDERAB LES Final Result [address] [id number] * (ABNORMAL) Urinalysis with Reflex to Urine Culture (07/13/2025 2:01 PM EST) Only the most recent of3 resultswithin the time period is included. Color Yellow Yellow 07/13/2025 2:22 PM [facility] Clarity Clear Clear 07/13/2025 2:22 PM [facility] Glucose 3+(A) Negative 07/13/2025 2:22 PM [facility] Bilirubin Urine Negative Negative 2:22 PM [facility] Ketone Urine Negative Negative 07/13/2025 2:22 PM EST [facility] Specific [place] 1.025 1.001 - 1.035 07/13/2025 2:22 PM EST [facility] Blood Negative Negative 07/13/2025 2:22 PM [facility] pH 6.0 5.0 - 8.0 07/13/2025 2:22 PM EST [facility] Protein Negative Negative 07/13/2025 2:22 PM EST [facility] Nitrites Negative Negative 07/13/2025 2:22 PM [facility] Leukocyte Esterase Negative Negative 07/13/2025 2:22 PM EST [facility] Urobilinogen Negative Negative 07/13/2025 2:22 PM EST [facility] Urine (Urine, Voided) Non-Blood Collection / Unknown 07/13/2025 2:01 PM EST 07/13/2025 2:09 PM EST us Kailey Mullins PA-C LAB URINE ORDERABLES Final Result [address] [address] * ECG 12-LEAD (07/13/2025 1:25 PM EST) Only the most recent of3 resultswithin the time period is included. Ventricular Rate EKG/MIN 88 BPM [facility] Atrial Rate 88 BPM [facility] FL Interval 124 ms [facility] QRS Duration 84 ms [facility] QT Interval 396 ms [facility] QTC Interval 479 ms [facility] P [place] 42 degrees [facility] R Wave [place] 50 degrees [facility] T Wave [place] 26 degrees [facility] 07/13/2025 1:25 PM EST [...] EDT) LACTATE 1.60 0.50 - 2.20 mmol/L [facility] Blood 06/08/2025 8:29 PM EDT 06/08/2025 8:32 PM EDT Kailey De La Garza PA-C LAB BLOOD BKR ORDERABLE S Final Result [address] [address] * CT ANGIO ABDOMINAL AORTA AND BILATERAL [...] run-off is present with patent SARAN and COAT FINISHER. Proximal peroneal artery is patent with nonopacification [...] run-off is present with patent SARAN and COAT FINISHER. Proximal peroneal artery is patent with nonopacification [...] clinician's provided indication for this examination in [facility]: *Claudication or leg ischemia, prior revasc TECHNIQUE: [...] run-off is present with patent SARAN and COAT FINISHER. Proximal peronealartery is patent with nonopacification of [...] vessel run-off ispresent with patent SARAN and COAT FINISHER. Proximal peroneal artery is patent withnonopacification of [...] clinician's provided indication for this examination in [facility]: *PE suspected, high prob TECHNIQUE: Multidetector CT [...] clinician's provided indication for this examination in [facility]: Left Leg Pain; Right Leg Pain TECHNIQUE: [...] clinician's provided indication for this examination in [facility]:Left Leg Pain; Right Leg Pain TECHNIQUE: Lower [...] PM EDT) Specimen Source/Descriptio n NASOPHARYNGEAL SWAB [facility] Influenza A PCR Not Detected Not Detected [facility] Influenza B PCR Not Detected Not Detected [facility] SARS-CoV 2 (COVID-19) PCR Not Detected Not Detected [facility] Comment: SARS-CoV-2 not detected Negative results do not preclude SARS-CoV-2 infection and should not be used as the sole basis for patient management decisions. Negative results must be combined with clinical observations, patient history, and epidemiological information. 06/08/2025 4:00 PM EDT 06/08/2025 4:21 PM EDT Kailey De La Garza PA-C LAB GENERAL ORDERABLES Final Result [address] [address] * COVID Pandemic Respiratory Viral Order (PRO) (06/08/2025 4:00 PM EDT) Test Ordered Rapid COVID has been ordered [facility] Specimen Source/Descri ption CREDITED: CANCELLED BY PROVIDER. Add on flu received. Reordered as Covid and flu testing. [facility] SARS-CoV 2 (COVID-19) PCR CREDITED: CANCELLED BY PROVIDER. Add on flu received. Reordered as Covid and flu testing. Not Detected [facility] Other (Nasopharyngeal swab) 06/08/2025 4:00 PM EDT 06/08/2025 4:18 PM EDT Kailey De La Garza PA-C LAB GENERAL ORDERABLES Final Result Performing Organization Address [facility] Co de Phone Number [address] [address] * (ABNORMAL) Urine sediment (06/08/2025 3:50 PM EDT) WBC 0-4(A) NONE SEEN /hpf [facility] RBC 0-2(A) NONE SEEN /hpf [facility] URINE EPITHELIAL 21-49(A) NONE SEEN [facility] MUCUS 2+(A) NONE SEEN /hpf [facility] BACTERIA NONE SEEN NONE SEEN /hpf [facility] CAST 0-2 [facility] Comment:HYALINE CAST 06/08/2025 3:50 PM EDT 06/08/2025 4:25 PM EDT Stalin Lopez MD LAB URINE ORDERABLES Final Resu lt Performing Organization Address [facility] Co de Phone Number [address] [address] * Troponin (06/08/2025 3:17 PM EDT) Only the most recent of4 resultswithin the time period is included. Troponin-T, HS Gen5 <6 0 - 14 ng/L [facility] Blood 06/08/2025 3:17 PM EDT 06/08/2025 3:35 PM EDT us Stalin Lopez MD LAB BLOOD BKR ORDERABLES Final Result Performing Organization Address [facility] Co de Phone Number [address] [address] * (ABNORMAL) CBC and differential (06/08/2025 1:55 PM EDT) Only the most recent of2 resultswithin the time period is included. WBC 4.29 4.00 - 11.00 K/uL [facility] RBC 4.66 4.50 - 5.90 M/uL [facility] HGB 13.8 13.5 - 17.5 g/dL [facility] HCT 42.7 41.0 - 53.0 % [facility] PLT 163 150 - 450 K/uL [facility] MCV 91.6 80.0 - 100.0 fL [facility] MCH 29.6 27.0 - 31.0 pg [facility] MCHC 32.3 32.0 - 36.0 g/dL [facility] RDW 15.2(H) 11.5 - 14.5 % [facility] MPV 9.5 8.4 - 12.0 fL [facility] NRBC 0.00 0.00 /100 WBCs [facility] ABSOLUTE NRBC 0.00 0.00 K/uL [facility] DIFF METHOD Auto [facility] NEUTS 59.2 48.0 - 76.0 % [facility] LYMPHS 28.2 18.0 - 41.0 % [facility] MONOS 11.2(H) 4.0 - 11.0 % [facility] EOS 0.7 0.0 - 5.0 % [facility] BASOS 0.5 0.0 - 1.5 % [facility] Granulocytes, immature (%) 0.2 0.0 - 0.9 % [facility] ABSOLUTE NEUTS 2.54 1.92 - 7.60 K/uL [facility] ABSOLUTE LYMPHS 1.21 0.72 - 4.10 K/uL [facility] ABSOLUTE MONOS 0.48 0.16 - 1.10 K/uL [facility] ABSOLUTE EOS 0.03 0.00 - 0.50 K/uL [facility] ABSOLUTE BASOS 0.02 0.00 - 0.15 K/uL [facility] Granulocytes, immature 0.01 0.00 - 0.09 K/uL [facility] Blood 06/08/2025 1:55 PM EDT 06/08/2025 2:12 PM EDT us Stalin Lopez MD LAB BLOOD BKR ORDERABLES Final Result [address] [address] * Giardia and cryptosporidium screen (05/16/2025 10:21 AM EDT) GIARDIA AG Negative Negative [facility] Cryptosporidiu m, stool Negative Negative [facility] Stool (Stool) 05/16/2025 10: 21 AM EDT 05/16/2025 1:09 PM EDT us Denise Weiner PA-C NON CULTURE MICROBIOLOGY Fi nal Result Performing Organization Address [facility]/ZIP Co de Phone Number [address] [address] * C. DIFFICILE PCR (05/15/2025 6:00 PM EDT) C.DIFFICILE PCR Negative Negative [facility] C.DIFFICILE STRAIN PRESUMPTIVE NEGATIVE PRESUMPTIVE NEGATIVE [facility] Comment:Detection of 027/NAP 1/BI strains of C.difficile is presumptive and is solely for epidemiological purposes and is not intended to guide or monitor treatment of infections. Stool (Stool) 05/15/2025 6:0 0 PM EDT 05/16/2025 10:14 AM EDT us Denise Weiner PA-C LAB BODY FLUIDS AND STOOL O RDERABLES Final Result Performing Organization Address [facility]/ZIP Co de Phone Number [address] [address] * Ova and parasites, stool (05/15/2025 6:00 PM EDT) Parasitic exam FINAL 5 [phone] [facility] DPT OF LAB MED AND PAT+ Comment: [...] FLUIDS AND STOOL O RDERABLES Final Result [facility] DPT OF LAB MED AND PAT+ [address] [place] [address] * Stool culture (05/15/2025 6:00 PM EDT) Special Requests None 05/16/2025 9:42 AM EDT [facility] Stool Culture NO SALMONELLA, SHIGELLA OR CAMPYLOBACTER ISOLATED 05/18/2025 11:49 AM EDT [facility] Stool (Stool) 05/15/2025 6:0 0 PM EDT 05/16/2025 10:12 AM EDT us Denise Weiner PA-C LAB MICROBIOLOGY CULTURE OR DERABLES Final Result Performing Organization Address City/[facility] Co de Phone Number [facility] [address] [place] [address] * US Lower Extremity Veins Duplex Complete (Bilateral) (05/14/2025 1:20 PM EDT) [facility] C[facility] SERVICES MANAGER 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 No flow is seen in the proximal right popliteal artery. [facility] Anatomical Region Laterality Modality Ultrasound 05/14/2025 2:12 PM EDT Impressions 05/14/2025 2:22 PM EDT 1. No deep vein thrombosis in the visualized veins of either lower extremity. 2. No flow is seen in the proximal right popliteal artery. A clinically significant result was initiated on 05/14/2025 2:22 PM, Message ID [id number]. Narrative 05/14/2025 2:22 PM EDT US LOWER [...] was initiated on 05/14/2025 2:22 PM,Message ID [id number]. us Denise Weiner PA-C CV US VASCULAR [...] Months Insurance MEDICARE PART A & B [facility] MEDICARE PART A & B HEALTH MEDICARE PART A & B HEALTH MEDICARE PART A & B [place] MED[place] A & B [facility] & B [facility] Care Teams Laboratory Chemist Relationship Specialty Start Date End Date Pcp, Unknown PCP - General 06/08/25 Additional Source Comments The information contained in this document represents components of the legal health record. It is not the complete legal health record.[facility]
--- OUTSIDE RECORDS SUMMARY | 2025-07-24 15:28 | XMS_ITS | Encounter Summary ---
Author Organization [facility] Address [address] [place] [address] Phone Care Team Providers Care Finishing Range Feeder Name Role Phone Pcp, Unknown Primary Care Provider Unavailabl e Encounter Details Date Type Department Care Team (Late st Contact Info) Description 06/08/2025 Procedure Pass [facility], Ct Scan - [address] [address] Social History Tobacco Use Types Packs/Day Years [...] 1:10 PM EDT Umu Bai RN * [place] Suicide Severity Rating Scale (Screener/Recent Self-Report) Question [...] documented as of this encounter Care Teams Finishing Range Feeder Relationship Specialty Start Date End Date Pcp, Unknown PCP - General 06/08/25 documented as of this encounter Additional Source Comments The information contained in this document represents components of the legal health record. It is not the complete legal health record.[facility]
--- OUTSIDE RECORDS SUMMARY | 2025-07-24 15:28 | XMS_ITS | Clinical Summary ---
Author Organization [facility] Address [address] [place] [address] Phone Care Team Providers Care Supervisor [employer] Name Role Phone Thomas Kam Primary Care Provider [phone] Allergies Active Allergy Reactions Criticality Noted Date Comments Acetaminophen Itching 10/13/2024 Dexamethasone Itching 07/01/2025 itching of face and rectum Flu Vaccine [id number](36mo,Up) 10/13/2024 GUILLAN BARRE SYNDROME Lamotrigine Rash 10/13/2024 [...] Chronic obstructive asthma w ith status asthmaticus ([facility] V24, [facility] V28) 05/19/2025 History of appendectomy 05/19/2025 Overview (05/19/2025): 2004 HTN (hypertension) 05/19/2025 Undiagnosed cardiac murmurs 05/19/2025 Ventral hernia 05/19/2025 C. difficile diarrhea 12/10/2024 HIV (human immunodeficiency virus infection) ([facility] V24, [facility] V28) 11/12/2024 Hypothyroid 11/12/2024 Epilepsy ([facility] V24, [facility] V28) 11/12/2024 DVT (deep venous thrombosis) ([facility] V24, [facility] V28) 11/12/2024 Deep vein thrombosis (DVT) o f both lower extremities ([facility] V24, [facility] V28) 11/12/2024 HLD (hyperlipidemia) 11/12/2024 Type 2 diabetes mellitus, [facility] long-term current use of insulin ([facility] V24, [facility] V28) 11/12/2024 Diverticulitis large intesti [...] hyperglycemia, without long-term current use of insulin ([facility] V24, [facility] V28) 04/09/2024 Overview (05/19/2025): DM dx: unclear Glucometer: markedupTouch Verio Current Diabetes RX: Ozempic 1 mg [...] Diabetes retinal exam: Missed follow-up appt with [facility] in April 2024, recommended patient call to reschedule Patient reports [facility] will not see him due to multiple no-shows 05/24/23 at [facility] No evidence of diabetic [...] by Discern Expert Abdominal aortic aneurysm (AAA) ([facility] V24) Guillain-[place] syndrome ([facility] V24) 06/03/2022 Overview (05/19/2025): sequelae, left sided weakness sequelae, left sided weakness sequelae, left sided weakness Hematoma of lower extremity 06/03/2022 Infection of skin 06/03/2022 Chronic lower back pain 07/14/2019 Overview (05/19/2025): [facility] Lum[facility] 06/22/19 +Normal examination Psychogenic nonepileptic seizure 07/14/2019 Overview (05/19/2025): 04/08/19, [facility] Neurology Follow up note, Robert Pate MD: Pt has documented PNES, has not yet started psychotherapy, says he's in process. Impression and Plan: Stop Vimpat. Encouraged pt to make behavioral health appt. Abnormal CXR 05/07/2019 Overview (05/19/2025): 05/07/19 - CXR Chest Routine 2 Views, [facility] Diag Img Dep't, 12/26/18: Findings: [...] (05/19/2025): 05/07/19 - - CT Chest Angiography, [facility] Dia Img Dep't, 03/27/19: Findings: [#5.] Bony [...] Care Team Description 07/08/2025 Telephone Gastroenterology - [place] [address] [facility] [address] [place] [phone] Myrtle Gonzalez MD 07/05/2025 5:25 PM EST - 07/06/2025 1:[address] [facility] [address] [place] [address] Marcos Alfaro MD Ziebro, John, MD Linnerooth, Warren, MD Left leg swelling (Primary Dx); Left lower quadrant abdominal pain; Acute abdominal pain Discharge Disposition: Home or Self Care 07/01/2025 2:17 PM EST Anesthesia Event [facility] Endoscopy [address] [place] [phone] Sharif Lopez MD Korobkov, Vitaliy, DO 07/01/2025 12:06 PM EST - 07/01/2025 11:59 PM EST Hospital Encounter [facility] Endoscopy [address] [place] [address] Myrtle Gonzalez MD Steele, Matthew G, CRNA Dasilva, John E, MD Abnormal CT scan, colon; Left sided abdominal pain; BRBPR (bright red blood per rectum) Discharge Disposition: Home or Self Care 06/09/2025 Telephone Gastroenterology - [place] [address] [facility] [address] [place] [address] Myrtle Gonzalez MD 05/21/2025 1:00 PM EDT Office Visit Gastroenterology - [address] [facility] [address] [place] [phone] Pablo Yip PA Left sided abdominal pain (Primary Dx); Abnormal CT scan, colon; Rectal pain; BRBPR (bright red blood per rectum); Diverticulitis large intestine w/o perforation or abscess w/bleeding 05/21/2025 Telephone Gastroenterology - [address] [facility] [address] [place] [phone] Elvin Ha MD from Last 3 Months Surgical History Surgery Date Site/Laterality Comments AAA REPAIR OTHER SURGICAL HISTORY Right lower extremtity bypass COLON SURGERY sigmoid resection due to diverticulitis HERNIA REPAIR Medical History Medical History Date Comments DVT (deep vein thrombosis) in Hypothyroid HIV (human immunodeficiency virus infection) ([facility] V24, [facility] V28) Asthma Diabetes mellitus ([facility] V24, [facility] V28) C. difficile colitis Diverticulosis Social History [...] MD on 07/06/2025 00:17:31 Marcos Alfaro MD [facility] PROCEDURES Final Result * Lactate (07/05/2025 11:24 PM EST) Lactate 1.9 0.4 - 2.0 mmol/L LAB CHEMISTRY METHOD 07/05/2025 11:59 PM EST [facility] Blood Venous blood specimen / Unknown Venipuncture / Unknown 07/05/2025 11:24 PM EST 07/05/2025 11:31 PM EST Marcos Alfaro MD LAB BLOOD ORDERABLES Final Resul t [facility] [address] [place] [address], [place] [phone] * 12-Lead ECG (07/05/2025 10:56 PM EST) Ventricular Rate ECG 74 BPM GEMUSE Atrial Rate 74 BPM GEMUSE P-R Interval 158 ms GEMUSE QRS Duration 94 ms GEMUSE Q-T Interval 410 ms GEMUSE QTc 455 ms GEMUSE P Wave [place] 35 degrees GEMUSE R [place] 28 degrees GEMUSE T [place] 21 degrees GEMUSE ECG Interpretation Normal sinus rhythm Normal ECG When compared with ECG of 26-JUN-2021 15:42, No significant change was found Confirmed by MD Avery, Hopkins ([id number]) on 07/06/2025 4:58:39 PM GEMUSE 07/05/2025 10:5 6 PM EST 07/06/2025 4:58 PM EST Marcos Alfaro MD ECG ORDERABLES Final Result Performing Organization Address City/[facility]/ZIP Co de Phone Number GEMUSE * Urinalysis with reflex microscopic (07/05/2025 7:57 PM EST) [facility] Specific [place] Urine 1.020 1.003 - 1.030 LAB URINALYSIS - AUTOMATED METHOD 07/05/2025 10:35 PM [facility] pH, Urine 7.0 5.0 - 8.0 pH LAB URINALYSIS - AUTOMATED METHOD 07/05/2025 10:35 PM [facility] Leukocytes, Urine Negative Negative LAB URINALYSIS - AUTOMATED METHOD 07/05/2025 10:35 PM [facility] Nitrite, Urine Negative Negative LAB URINALYSIS - AUTOMATED METHOD 07/05/2025 10:35 PM [facility] Protein, Urine Trace <=Trace mg/dL LAB URINALYSIS - AUTOMATED METHOD 07/05/2025 10:35 PM [facility] Glucose, Urine Negative Negative mg/dL LAB URINALYSIS - AUTOMATED METHOD 07/05/2025 10:35 PM EST [facility] Ketones, Urine Negative Negative mg/dL LAB URINALYSIS - AUTOMATED METHOD 07/05/2025 10:35 PM [facility] Urobilinogen, Urine 0.2 0.2 - 1.0 mg/dL LAB URINALYSIS - AUTOMATED METHOD 07/05/2025 10:35 PM EST [facility] Bilirubin, Urine Negative Negative LAB URINALYSIS - AUTOMATED METHOD 07/05/2025 10:35 PM [facility] Blood, Urine Negative Negative LAB URINALYSIS - AUTOMATED METHOD 07/05/2025 10:35 PM [facility] Urine Urine specimen obtained by clean catch procedure / Unknown Non-blood Collection / Unknown 07/05/2025 7:57 PM EST 07/05/2025 10:27 PM EST us Marcos Alfaro MD LAB URINE ORDERABLES Final Resul t [facility] [address] [place] [address], * XR Chest 1 View (07/05/2025 6:17 [...] Signed Date: 07/06/2025 09:37 ET Workstation ID: [id number] Transcribed By: Self Edit Transcribed Date: 07/06/2025 [...] Signed Date: 07/06/2025 09:37 ET Workstation ID: [id number] Transcribed By: Self Edit Transcribed Date: 07/06/2025 [...] Signed Date: 07/05/2025 18:15 ET Workstation ID: [id number] Transcribed By: Self Edit Transcribed Date: 07/05/2025 [...] Signed Date: 07/05/2025 18:15 ET Workstation ID: [id number] Transcribed By: Self Edit Transcribed Date: 07/05/2025 18:15 ET us Marcos Alfaro MD CV VASCULAR PROCEDURES Final Res ult * (ABNORMAL) CBC auto differential (07/05/2025 4:48 PM EST) WBC 5.4 4.8 - 10.8 K/mcL LAB HEMETOLOGY METHOD 07/05/2025 5:26 PM [facility] RBC 4.30(L) 4.50 - 5.50 M/mcL LAB HEMETOLOGY METHOD 07/05/2025 5:26 PM [facility] Hemoglobin 12.6(L) 13.5 - 17.5 g/dL LAB HEMETOLOGY METHOD 07/05/2025 5:26 PM [facility] Hematocrit 38.6(L) 42.0 - 54.0 % LAB HEMETOLOGY METHOD 07/05/2025 5:26 PM [facility] MCV 90.6 79.0 - 98.0 FL LAB HEMETOLOGY METHOD 07/05/2025 5:26 PM [facility] MCH 29.6 27.0 - 32.0 pcg LAB HEMETOLOGY METHOD 07/05/2025 5:26 PM [facility] MCHC 32.6 32.0 - 37.0 g/dL LAB HEMETOLOGY METHOD 07/05/2025 5:26 PM [facility] RDW 14.2 11.0 - 15.0 % LAB HEMETOLOGY METHOD 07/05/2025 5:26 PM [facility] Platelets 175 130 - 400 K/mcL LAB HEMETOLOGY METHOD 07/05/2025 5:26 PM [facility] MPV 9.5 7.0 - 11.0 FL LAB HEMETOLOGY METHOD 07/05/2025 5:26 PM [facility] NRBC 0.0 <1.0 % LAB HEMETOLOGY METHOD 07/05/2025 5:26 PM [facility] NRBC Absolute 0.00 <0.10 K/mcL LAB HEMETOLOGY METHOD 07/05/2025 5:26 PM [facility] Neutrophils Relative 43.0 % LAB HEMETOLOGY METHOD 07/05/2025 5:26 PM [facility] Lymphocytes Relative 44.7 % LAB HEMETOLOGY METHOD 07/05/2025 5:26 PM [facility] Monocytes Relative 10.9 % LAB HEMETOLOGY METHOD 07/05/2025 5:26 PM [facility] Eosinophils Relative 0.6 % LAB HEMETOLOGY METHOD 07/05/2025 5:26 PM [facility] Basophils Relative 0.6 % LAB HEMETOLOGY METHOD 07/05/2025 5:26 PM [facility] Immature Granulocytes Relative 0.2 % LAB HEMETOLOGY METHOD 07/05/2025 5:26 PM [facility] Neutrophils Absolute 2.32 1.50 - 7.00 K/mcL LAB HEMETOLOGY METHOD 07/05/2025 5:26 PM [facility] Lymphocytes Absolute 2.41 1.00 - 5.00 K/mcL LAB HEMETOLOGY METHOD 07/05/2025 5:26 PM EST [facility] Monocytes Absolute 0.59 0.20 - 1.00 K/mcL LAB HEMETOLOGY METHOD 07/05/2025 5:26 PM EST [facility] Eosinophils Absolute 0.03 0.00 - 0.50 K/mcL LAB HEMETOLOGY METHOD 07/05/2025 5:26 PM EST [facility] Basophils Absolute 0.03 0.00 - 0.20 K/mcL LAB HEMETOLOGY METHOD 07/05/2025 5:26 PM EST [facility]) [facility] Immature Granulocytes Absolute 0.01 0.00 - 0.03 K/[facility] LAB HEMETOLOGY METHOD 07/05/2025 5:26 PM EST [facility] Blood Venous blood specimen / Unknown Venipuncture / Unknown 07/05/2025 4:48 PM EST 07/05/2025 5:19 PM EST us Chicho Cortez MD LAB BLOOD ORDERABLES Final Resu lt [facility] [address] [place] [address], [place] [phone] * Lipase (07/05/2025 4:48 PM EST) Lipase 17 13 - 75 unit/L LAB CHEMISTRY METHOD 07/05/2025 5:44 PM EST [facility] Blood Venous blood specimen / Unknown Venipuncture / Unknown 07/05/2025 4:48 PM EST 07/05/2025 5:19 PM EST us Chicho Cortez MD LAB BLOOD ORDERABLES Final Resu lt [facility] [address] [place] [address], [place] [phone] * (ABNORMAL) Comprehensive metabolic panel (07/05/2025 4:48 PM EST) Sodium 135 133 - 145 mmol/L LAB CHEMISTRY METHOD 07/05/2025 5:46 PM [facility] Potassium 3.8 3.5 - 5.5 mmol/L LAB CHEMISTRY METHOD 07/05/2025 5:46 PM [facility] Chloride 105 96 - 110 mmol/L LAB CHEMISTRY METHOD 07/05/2025 5:46 PM [facility] CO2 28 21 - 32 mmol/L LAB CHEMISTRY METHOD 07/05/2025 5:46 PM [facility] Anion Gap 2(L) 3 - 11 LAB CHEMISTRY METHOD 07/05/2025 5:46 PM [facility] Glucose 119(H) 70 - 100 mg/dL LAB CHEMISTRY METHOD 07/05/2025 5:46 PM [facility] BUN 13 5 - 25 mg/dL LAB CHEMISTRY METHOD 07/05/2025 5:46 PM [facility] Creatinine 1.15 0.70 - 1.30 mg/dL LAB CHEMISTRY METHOD 07/05/2025 5:46 PM [facility] eGFR 77 >=60 mL/min/1. 73m2 LAB CHEMISTRY METHOD 07/05/2025 5:46 PM [facility] Comment:Calculation based on the Chronic Kidney Disease Epidemiology Collaboration (CKD-EPI) equation refit without adjustment for race. BUN/Creatinine Ratio 11.3 LAB CHEMISTRY METHOD 07/05/2025 5:46 PM [facility] Calcium 9.0 8.5 - 10.5 mg/dL LAB CHEMISTRY METHOD 07/05/2025 5:46 PM [facility] AST (SGOT) 21 10 - 42 unit/L LAB CHEMISTRY METHOD 07/05/2025 5:46 PM [facility] ALT (SGPT) 45 10 - 60 unit/L LAB CHEMISTRY METHOD 07/05/2025 5:46 PM EST [facility] Alkaline Phosphatase 112 42 - 121 unit/L LAB CHEMISTRY METHOD 07/05/2025 5:46 PM EST [facility] Total Protein 8.5(H) 6.0 - 8.0 g/dL LAB CHEMISTRY METHOD 07/05/2025 5:46 PM EST [facility] Albumin 3.7 3.2 - 5.0 g/dL LAB CHEMISTRY METHOD 07/05/2025 5:46 PM EST [facility] Total Bilirubin 0.4 0.0 - 1.4 mg/dL LAB CHEMISTRY METHOD 07/05/2025 5:46 PM EST [facility] Blood Venous blood specimen / Unknown Venipuncture / Unknown 07/05/2025 4:48 PM EST 07/05/2025 5:19 PM EST Chicho Cortez MD LAB BLOOD ORDERABLES Final Resu lt [facility] [address] [place] [address], * COLONOSCOPY Anesthesia - [facility]; [facility] ENDOSCOPY (07/01/2025 2:43 PM EST) Anatomical Region [...] surveillance. Narrative 07/01/2025 2:[address] [facility] Patient Name: Jerome Hayden Procedure Date: [...] verified by the physician, the nurse, the letter of credit document examiner and the electronic lab technician in the pre-procedure area in the [...] reduce spontaneously). Procedure Code(s): --- Professional --- 18633, Colonoscopy, flexible; with removal of tumor(s), polyp(s), or other lesion(s) by snare technique Diagnosis Code(s): --- Professional --- D12.5, Benign neoplasm of sigmoid colon R93.3, Abnormal findings on diagnostic imaging of other parts of digestive tract CPT copyright 2020 [employer]. All rights reserved. The codes documented in this report are preliminary and upon photograph enlarger review may be revised to meet current compliance requirements. Myrtle Gonzalez MD 07/01/2025 2:45:55 PM This report has been signed electronically.Myrtle Gonzalez MD Number of Addenda: 0 Note Initiated On: 07/01/2025 2:27 PM Scope Withdrawal Time: 0 hours 6 minutes 45 seconds Scope In: 2:33:42 PM Scope Out: 2:42:28 PM Endoscopy Department at [facility] - [address] [phone] Procedure Note Myrtle Gonzalez MD - 07/01/2025 [facility] Patient Name: Jerome Hayden Procedure Date: [...] the physician, the nurse, theanesthetist and the electronic lab technician in the pre-procedure area in the [...] wasminimal. There was evidence of a prior rde-qt-aqpqfsq-colonic anastomosis in the distal sigmoid colon. This was patent and was characterized by healthy appearing mucosa. The anastomosis was traversed. Many small and large-mouthed diverticula were foundin the entire colon. Internal hemorrhoids were found duringretroflexion. The hemorrhoids were Grade II (internal hemorrhoids that prolapse but reduce spontaneously). Procedure Code(s): --- Professional --- 14405, Colonoscopy, flexible; with removal of tumor(s), polyp(s), or other lesion(s) by snare technique Diagnosis Code(s): --- Professional --- D12.5, Benign neoplasm of sigmoid colon R93.3, Abnormal findings on diagnostic imaging of other parts of digestive tract CPT copyright 2020 [employer]. All rights reserved. The codes documented in this report are preliminary and upon photograph enlarger reviewmay be revised to meet current compliance requirements. Myrtle Gonzalez MD 07/01/2025 2:45:55 PM This report has been signed electronically.Myrtle Gonzalez MD Number of Addenda: 0 Note Initiated On: 07/01/2025 2:27 PM Scope Withdrawal Time: 0 hours 6 minutes 45 seconds Scope In: 2:33:42 PM Scope Out: 2:42:28 PM Endoscopy Department at 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
--- OUTSIDE RECORDS SUMMARY | 2025-07-24 15:28 | XMS_ITS | Encounter Summary ---
Author Organization [facility] Address [address] [place] [phone] Phone Care Team Providers Care Application Support Lead Name Role Phone Pcp, Unknown Primary Care Provider Unavailabl e Denise Weiner PA-C Primary Care Provider Pcp, Unknown Primary Care Provider Unavailabl e Encounter Details Date Type Department Care Team (Late st Contact Info) Description 05/14/2025 Procedure Pass [employer], Ct Scan - [facility] [address] [place] [address] Social History Tobacco Use Types Packs/Day Years [...] 9:56 AM EDT Clay Yost, BLANCO * [place] Suicide Severity Rating Scale (Screener/Recent Self-Report) Question [...] documented as of this encounter Care Teams Application Support Lead Relationship Specialty Start Date End Date Pcp, Unknown PCP - General 05/16/25 06/07/25 Denise Weiner PA-C [address] [place] [id number] [email or web address] PCP - General Physician Clinical Informatics Director 05/15/25 05/15/25 Pcp, Unknown PCP - General 06/08/25 documented as of this encounter Additional Source Comments The information contained in this document represents components of the legal health record. It is not the complete legal health record.[facility]
[2025-07-24 16:18] VITALS: BP 105/66; PULSE 75; RESP 16; TEMP 36.6; O2SAT 99
[2025-07-24] MEDS: iohexoL 350 MG/ML 100 ML INFUS..BTL IV (17:08)
[2025-07-24 18:38] LABS: Appearance Urine Clear; Glucose Urine UA Negative (Negative); PH 7.0 (5.0-9.0); Specific Gravity - Urine >= 1.030 (1.005-1.025)
[2025-07-25 10:40] LABS: E. coli EAEC Not Detected (Not Detect.); E. coli EPEC Not Detected (Not Detect.); E. coli ETEC Not Detected (Not Detect.); E. coli STEC Not Detected (Not Detect.); Shigella sp./EIEC Not Detected (Not Detect.)
== END 2025-07-24 19:07 | disposition home or self-care (01) ==
PROVIDERS: Physician Assistant Medical; Emergency Provider Emergency Medicine
DX: R10.32 Left lower quadrant pain (principal); R19.7 Diarrhea, unspecified; R11.2 Nausea with vomiting, unspecified; D83.8 Other common variable immunodeficiencies; Z86.718 Personal history of other venous thrombosis and embolism; Z79.01 Long term (current) use of anticoagulants; Z79.899 Other long term (current) drug therapy; Z51.81 Encounter for therapeutic drug level monitoring
CPT/HCPCS: 36415; 74177; 80053; 81003; 83605; 83735; 85025; 87040; 87507; 96361; 96374; 96375; 96376; 99284; 99285; J1956; J2270; J2405; Q9967

== ENCOUNTER → 2025-07-24 16:04 | Outpatient (BNV) | payer MEDICARE, MEDICAID, SELFPAY | PROVIDERS: Emergency Provider Emergency Medicine; Visit Provider Radiology Diagnostic Radiology | DX: R10.32 Left lower quadrant pain (principal); Z95.828 Presence of other vascular implants and grafts | CPT/HCPCS: 74177 ==

== ENCOUNTER 2025-07-28 09:13 | Inpatient (IN) | payer MEDICARE, MEDICAID, SELFPAY ==
--- NOTE | ~2025-07-28 | XR_ITS ---
CLINICAL HISTORY: constipation 1 view abdomen Comparison: CT 07/24/2025 Findings: Normal bowel gas pattern. Normal stool quantity. Hemostasis clips are present in the right abdomen. Abdominal aortic endograft and bilateral iliac modules are unchanged in position when compared to prior CT. No abnormal calcifications. No obvious pneumoperitoneum or pneumatosis. No acute fractures There is an anterior abdominal wall hernia graft Impression: Normal bowel gas pattern This document has been electronically signed by: Desmond Romano MD on 07/28/2025 18:14:46
[2025-07-28 09:45] VITALS: BP 102/61; PULSE 88; RESP 20; TEMP 36.6; O2SAT 98; BMI 26.6
--- NOTE | 2025-07-28 09:50 | ED.GENADULT ---
HPI - General Adult General Chief complaint: Abdominal Pain Stated complaint: Blood In Stool Time Seen by Provider: 07/28/25 16:05 Source: patient, RN notes reviewed and old records reviewed Mode of arrival: ambulatory Limitations: no limitations History of Present Illness ED Provider: Gwyn HPI narrative: 49-year-old male with a past medical history significant for HIV on heart therapy, diabetes, DVT on warfarin, partial colectomy due to diverticulitis, status post appendectomy and cholecystectomy presents for evaluation of abdominal pain. The patient was seen here 07/19 and 07/24 for abdominal pain. You also complaining of constipation and was found to have positive stool studies for Campylobacter and both previous visits. He had a CT scan initially on 07/19/2025 that showed mild colitis which ultimately resolved on a repeat CT scan on 07/24/2025. The patient took a 4 day course of azithromycin and stopped taking that as he felt he was having side effects from it including a syncopal episode He then finished a week of Levaquin He reports today he has a abdominal pain is worse and he has I have an continued constipation pain He reports he had a small bowel movements day that was dark red blood Denies any fevers, chills. No other complaints or concerns at the time Related Data Home Medications ?Medication ?Instructions ?Recorded ?Confirmed albuterol sulfate 90 mcg/actuation 2 inh inhalation Q4H PRN 06/26/24 09/25/24 aerosol inhaler (Ventolin HFA) wheezing/sob atorvastatin 80 mg tablet 80 mg PO DAILY 06/26/24 09/25/24 cholecalciferol (vitamin D3) 50 50 mcg PO DAILY 06/26/24 09/25/24 mcg (2,000 unit) capsule darunavir 800 mg-cobicistat 150 mg 1 tab PO DAILY 06/26/24 09/25/24 tablet (Prezcobix) empagliflozin 25 mg tablet 25 mg PO DAILY 06/26/24 09/25/24 (Jardiance) famotidine 20 mg tablet 40 mg PO DAILY 06/26/24 09/25/24 lacosamide 100 mg tablet (Vimpat) 100 mg PO BID 06/26/24 09/25/24 levothyroxine 25 mcg tablet 25 mcg PO DAILY@0600 06/26/24 09/25/24 pantoprazole 40 mg tablet,delayed 40 mg PO DAILY@0630 06/26/24 09/25/24 release raltegravir 600 mg tablet 600 mg PO BID 06/26/24 09/25/24 ([facility]) tenofovir disoproxil fumarate 300 300 mg PO DAILY 06/26/24 09/25/24 mg tablet trazodone 150 mg tablet 150 mg PO BEDTIME 06/26/24 09/25/24 semaglutide 1 mg/dose (4 mg/3 mL) 1 mg subcut TU 09/25/24 09/25/24 subcutaneous pen injector (Ozempic) warfarin 10 mg tablet 10 mg PO DAILY 09/25/24 09/25/24 Previous Rx's ?Medication ?Instructions ?Recorded fondaparinux 7.5 mg/0.6 mL 7.5 mg (0.6 mL) subcut Q24H #0 mL 09/30/24 subcutaneous solution syringe amoxicillin 875 mg-potassium 1 tab PO BID #16 tabs 04/14/25 clavulanate 125 mg tablet ondansetron HCl 4 mg tablet 4 mg PO Q8H #20 tabs 04/28/25 morphine 10 mg capsule,extended 10 mg PO DAILY PRN pain #4 caps 05/17/25 release pellets levofloxacin 750 mg tablet 750 mg PO Q24H #6 tabs 06/16/25 metronidazole 500 mg tablet 500 mg PO Q8H 7 days #20 tabs 06/16/25 morphine 15 mg immediate release 15 mg PO Q8H PRN pain #10 tabs 06/16/25 tablet ondansetron 4 mg disintegrating 4 mg PO Q8H PRN nausea and 06/16/25 tablet vomiting #10 tabs azithromycin 250 mg tablet See Rx Instructions PO .COMPLEX #6 07/19/25 tabs levofloxacin 750 mg tablet 750 mg PO DAILY 4 days #4 tabs 07/24/25 morphine 15 mg immediate release 15 mg PO Q8H PRN pain (scale score 07/24/25 tablet 7-10) 3 days #9 tabs Allergies Allergy/AdvReac Type Severity Reaction Status Date / Time influenza virus vaccine, Allergy Severe GUILLIAN Verified 07/28/25 09:49 specific (FLU VACCINE) BARRE HX. tramadol (TRAMADOL) Allergy Severe SEIZURES Verified 07/28/25 09:49 acetaminophen (From PERCOCET) Allergy Intermediate ITCHING Verified 07/28/25 09:49 carbamazepine (From TEGRETOL) Allergy Intermediate HALLUCINATI Verified 07/28/25 09:49 ONS lamotrigine (From LAMICTAL) Allergy Intermediate ITCHING Verified 07/28/25 09:49 metoclopramide (From REGLAN) Allergy Intermediate ITCHY Verified 07/28/25 09:49 oxycodone (From PERCOCET) Allergy Intermediate ITCHING Verified 07/28/25 09:49 azithromycin AdvReac Intermediate Unresponsiv Verified 07/28/25 09:49 e SEAFOOD Allergy Severe ANAPHYLAXIS Uncoded 07/24/25 12:20 Review of Systems Constitutional: Constitutional: Denies body ache(s), Denies chills, Denies fever(s) and Denies frequent falls Eyes: Eyes: Denies irritation Cardiovascular: Cardiovascular: Denies chest pain and Denies dyspnea Respiratory: Respiratory: Denies cough and Denies dyspnea Gastrointestinal: Gastrointestinal: Reports abdominal pain, Reports hematochezia, Reports constipation, Denies nausea and Denies vomiting Musculoskeletal: Musculoskeletal: Denies back pain Integumentary/Breasts: Skin/Breast: Denies rash Neurologic: Denies frequent falls Psychiatric: Psychiatric: Denies anxiety [facility] Past Medical History Medical History Seizure Popliteal artery aneurysm AAA (abdominal aortic aneurysm) Left sided abdominal pain COVID-19 DVT (deep venous thrombosis) Diabetes Seizure disorder HIV (human immunodeficiency virus infection) Surgical History History of colon resection Status post cholecystectomy Status post laparoscopic appendectomy H/O fasciotomy S/P AAA (abdominal aortic aneurysm) repair S/P IVC filter Social History Social History Household Members: Spouse and Family Housing: House Do you presently have visiting nurse or other home services: No Alcohol intake: never Comment: pt refuses high fall risk precautions Patient Tobacco Use Status: Former Tobacco user Smoked in Last 30 Days: No Advance Directives: Yes Advance Directives on File: Yes Advance Directives Date on File: 10/01/24 Do you have a plan to hurt others: No Plan service: No Physical Exam ED Vital Signs: Vital Signs - 24 hr 07/28/25 09:45 07/28/25 15:02 07/28/25 16:36 Temperature 97.9 F 98.6 F 98.5 F Pulse Rate 88 99 78 Respiratory Rate 20 20 18 Blood Pressure 102/61 118/55 L 113/73 Pulse Oximetry 98 98 97 Oxygen Delivery Method Room Air Room Air Room Air 07/28/25 21:00 Temperature 98 F Pulse Rate 75 Respiratory Rate 18 Blood Pressure 102/71 Pulse Oximetry 96 Oxygen Delivery Method Room Air BMI result Body Mass Index 26.6 Const General: healthy appearing, comfortable, no acute distress, alert and awake Nutritional Appearance: well nourished Orientation/consciousness: patient oriented x3 HENMT Head: Yes normocephalic and Yes atraumatic Eyes Eyelids: Yes eyelids normal Conjunctivae: conjunctivae normal Sclerae: sclerae normal Corneas: corneas normal Pupils: Equal, round and reactive pupils present EOM: EOMs intact bilaterally Neck Neck: Yes full ROM Resp Effort & Inspection: normal respiratory effort, able to speak in complete sentences and not labored Cardio Rate: regular rate Rhythm: regular rhythm GI Inspection: No distended Palpation (GI): Soft to palpation, not firm, Tenderness to palpation present (GI) in the LLQ and in the LUQ, Guarding due to palpation present (GI) in the LLQ and not rigid Skin General skin exam: elasticity normal Neuro General: patient oriented x3 Cranial nerves: Yes Equal, round and reactive pupils present and Yes Bilaterally intact EOM present Cognition (Neuro): normal cognition Extrem Other: Moving all extremities well without any obvious deformities Course Course Course Narrative: Rapid medical examination performed in triage by Elaine Guerrero PA-C: Patient is a 49 year old assigned male at presenting to the emergency department with continued abdominal pain, blood in his stools, and constipation. Detailed physical exam and review of systems are deferred to the mid level clinician. Labs ordered. Patient placed back in the waiting room pending room availability and results. Reevaluation(s) Reevaluation #1: The patient reports no improvement in his abdominal pain from morphine, he was given a dose of Dilaudid. Given that he is having continued abdominal pain despite opiate analgesics we will discuss with the hospitalist for admission due to intractable abdominal pain Time: 21:10 Medications Administered Generic Name Dose Route Start Last Admin Trade Name Freq PRN Reason Stop Dose Admin Lactated Ringer's 1,000 mls @ 999 mls/hr 07/28/25 21:00 07/28/25 21:02 Lr IV 07/28/25 22:00 999 mls/hr .Q1H1M HAYLEY Administration Discontinued Medications Generic Name Dose Route Start Last Admin Trade Name Seb PRN Reason Stop Dose Admin Hydromorphone HCl 1 mg 07/28/25 19:55 07/28/25 20:33 Hydromorphone Hcl 1 Mg/Ml Syringe IVPUSH 07/28/25 19:56 1 mg ONCE ONE Administration Protocol Morphine Sulfate 4 mg 07/28/25 18:07 07/28/25 18:52 Morphine Sulfate 4 Mg/Ml Cartridge IVPUSH 07/28/25 18:08 4 mg ONCE ONE Administration Protocol Ondansetron HCl 4 mg 07/28/25 18:08 07/28/25 18:53 Ondansetron Hcl 4 Mg/2 Ml Vial IVPUSH 07/28/25 18:09 4 mg ONCE ONE Administration Medical Decision Making Medical Decision Making [facility] Narrative: 49-year-old male presents for evaluation of continued abdominal pain, constipation but now with bright red blood with a bowel movement this morning. He was seen here previously twice in the last week. He was diagnosed with Campylobacter, he had [address] scans 1 done initially showed early colitis and then this resolved 5 days later on 07/24/2025. The patient has continued left-sided abdominal pain and tenderness. There was no abdominal distention in his abdomen remains soft. His labs show a mild and stable anemia though his hemoglobin is actually improved to 13.4 from 13.1. Hematocrit likewise also had a very mild improvement. The patient has no leukocytosis as his white count is 7.0. Though he was 4.21 his visit last week. There was no significant left shift chemistries without any significant abnormalities Differential Diagnosis Differential Diagnoses: The differential diagnosis associated with the presentation includes Postinfectious IBS Campylobacter Diverticulitis Colitis Constipation Dehydration Admission/Observation Consideration of admission/observation: Escalation of care including admission/observation considered Consult Healthcare Provider Management of the patient was discussed with: Hospitalist and Master Scheduler (Jeanne GARCIA who recommends holding further antibiotics. The patient will benefit from endoscopy and colonoscopy with biopsies) Lab Data [facility] Lab Attestation statement: I reviewed the patient's lab results. As above 07/28/25 10:48 07/28/25 10:48 Labs: Lab Results 07/28/25 07/28/25 Range/Units 10:48 16:42 WBC 7.0 (4.8-10.8) X10*3/uL RBC 4.49 L (4.60-5.80) X10*6/uL Hgb 13.4 L (14.0-18.0) g/dl Hct 40.9 L (42.0-52.0) % MCV 91.1 (80.0-98.0) fL MCH 29.8 (27.0-33.0) pg MCHC 32.8 (31.0-36.0) g/dl RDW 14.6 (11.0-16.0) % Plt Count 167 (160-400) X10*3/uL MPV 9.9 (9.4-12.4) fL Immature Gran % (Auto) 0.1 (0.0-0.4) % Neut % (Auto) 63.7 (45-73) % Lymph % (Auto) 27.2 (20-40) % [place] % (Auto) 8.0 (2-11) % Eos % (Auto) 0.6 (0-4) % Baso % (Auto) 0.4 (0-2) % Lymph # (Auto) 1.9 (1.2-4.9) X10*3/uL [place] # (Auto) 0.6 (0.1-1.2) X10*3/uL Eos # (Auto) 0.0 (0.0-0.4) X10*3/uL Baso # (Auto) 0.0 (0.0-0.2) X10*3/uL Abs Immat Gran (auto) 0.01 (0.00-0.03) X10*3/uL Absolute Neuts (auto) 4.5 (2.0-8.3) x10*3/uL Absolute Nucleated RBC 0.000 (0.0-0.012) X10*3/uL Nucleated RBC % (auto) 0.0 (0.0-0.2) /100WBC PT 23.1 H (11.2-13.5) SEC INR 1.9 H (0.9-1.1) APTT 31.5 (26.7-34.1) SEC Sodium 140 (135-145) mmol/L Potassium 4.3 (3.3-5.1) mmol/L Chloride 108 (96-108) mmol/L Carbon Dioxide 23 (22-29) mmol/L Anion Gap 13 (12-20) BUN 12 (9-16) mg/dL Creatinine 1.20 (0.5-1.4) mg/dL Estim Creat Clear Calc 72.8 Estimated GFR > 60 Random Glucose 119 H (60-115) mg/dL Calcium 9.2 (8.4-10.2) mg/dL Magnesium 2.2 (1.6-2.6) mg/dL Total Bilirubin 0.3 (0.0-1.0) mg/dL AST 38 H (5-37) U/L ALT 32 (0-40) U/L Alkaline Phosphatase 106 (39-117) U/L Total Protein 9.0 H (6.5-8.0) g/dL Albumin 4.4 (3.5-5.0) g/dL Urine Color Yellow Urine Appearance Clear Urine pH 6.5 (5.0-9.0) Ur Specific [place] 1.025 (1.005-1.025) Urine Protein Trace (Neg-Trace) mg/dL Urine Glucose (UA) 100 H (Negative) mg/dL Urine Ketones Negative (Negative) mg/dL Urine Blood Negative (Negative) Urine Nitrite Negative (Negative) Ur Leukocyte Esterase Negative (Negative) Discharge Plan Discharge Clinical Impression: Abdominal pain Patient Disposition: Admitted As Inpatient Print Language: Indonesian
[2025-07-28 11:15] LABS: MANUAL DIFF FLAG NO
[2025-07-28 11:17] LABS: Hematocrit 40.9 % (42.0-52.0); Hemoglobin 13.4 g/dl (14.0-18.0); Imm Gran Abs Auto 0.01 X10*3/uL (0.00-0.03); Imm Gran Pct Auto 0.1 % (0.0-0.4); Lymphocytes Absolute Auto 1.9 X10*3/uL (1.2-4.9); Mean Corpuscular HGB Conc 32.8 g/dl (31.0-36.0); Mean Corpuscular Hemoglobin 29.8 pg (27.0-33.0); Mean Corpuscular Volume 91.1 fL (80.0-98.0); NRBC Abs Auto 0.000 X10*3/uL (0.0-0.012); NRBC Pct Auto 0.0 /100WBC (0.0-0.2); Platelet Count 167 X10*3/uL (160-400); Red Blood Count 4.49 X10*6/uL (4.60-5.80); White Blood Count 7.0 X10*3/uL (4.8-10.8)
[2025-07-28 11:27] LABS: Partial Thromboplastin Time 31.5 SEC (26.7-34.1)
[2025-07-28 11:32] LABS: Alanine Aminotransferase 32 U/L (0-40); Albumin Level 4.4 g/dL (3.5-5.0); Alkaline Phosphatase 106 U/L (39-117); Anion Gap 13 (12-20); Aspartate Amino Transferase 38 U/L (5-37); Blood Urea Nitrogen 12 mg/dL (9-16); Calcium 9.2 mg/dL (8.4-10.2); Carbon Dioxide 23 mmol/L (22-29); Chloride 108 mmol/L (96-108); Creatinine Clr Calc Pharmacy 72.8; Estimated Glomerular Filt Rate > 60; Magnesium 2.2 mg/dL (1.6-2.6); Potassium 4.3 mmol/L (3.3-5.1); Sodium 140 mmol/L (135-145); Total Protein 9.0 g/dL (6.5-8.0)
[2025-07-28 15:02] VITALS: BP 118/55; PULSE 99; RESP 20; TEMP 37; O2SAT 98
[2025-07-28 16:17] LABS: INTERNATIONAL NORM RATIO 1.9 (0.9-1.1); Prothrombin Time 23.1 SEC (11.2-13.5)
[2025-07-28 16:36] VITALS: BP 113/73; PULSE 78; RESP 18; TEMP 36.9; O2SAT 97
[2025-07-28 16:51] LABS: Appearance Urine Clear; Glucose Urine UA 100 mg/dL (Negative); PH 6.5 (5.0-9.0); Specific Gravity - Urine 1.025 (1.005-1.025)
--- OUTSIDE RECORDS SUMMARY | 2025-07-28 17:18 | XMS_ITS | Encounter Summary ---
Author Organization [facility] Address [address] [place] [id number] Phone Care Team Providers Care Barrel Filler Head Name Role Phone Pcp, Unknown Primary Care Provider Unavailabl e Encounter Details Date Type Department Care Team (Late st Contact Info) Description 06/08/2025 Procedure Pass [facility], Ct Scan - [address] [address] Social History Tobacco Use Types Packs/Day Years [...] 1:10 PM EDT Umu Bai RN * [place] Suicide Severity Rating Scale (Screener/Recent Self-Report) Question [...] documented as of this encounter Care Teams Barrel Filler Head Relationship Specialty Start Date End Date Pcp, Unknown PCP - General 06/08/25 documented as of this encounter Additional Source Comments The information contained in this document represents components of the legal health record. It is not the complete legal health record.[facility]
--- OUTSIDE RECORDS SUMMARY | 2025-07-28 17:18 | XMS_ITS | Encounter Summary ---
Author Organization [facility] Address [address] [place] [phone] Phone Care Team Providers Care Glass Belt Sander Name Role Phone Pcp, Unknown Primary Care Provider Unavailabl e Encounter Details Date Type Department Care Team (Late st Contact Info) Description 07/13/2025 Procedure Pass [facility], Ct Scan - [address] [id number] Social History Tobacco Use Types Packs/Day Years [...] 07/13/2025 12:52 PM Lizet Lloyd RN * [place] Suicide Severity Rating Scale (Screener/Recent Self-Report) Question [...] on filedocumented in this encounter Care Teams Glass Belt Sander Relationship Specialty Start Date End Date Pcp, Unknown PCP - General 06/08/25 documented as of this encounter Additional Source Comments The information contained in this document represents components of the legal health record. It is not the complete legal health record.[facility]
--- OUTSIDE RECORDS SUMMARY | 2025-07-28 17:18 | XMS_ITS | Encounter Summary ---
Author Organization [facility] Address [address] [place] [phone] Phone Care Team Providers Care Insurance Processor Name Role Phone Pcp, Unknown Primary Care Provider Unavailabl e Encounter Details Date Type Department Care Team (Late st Contact Info) Description 06/08/2025 Procedure Pass [facility], Ct Scan - [address] [address] Social History Tobacco Use Types Packs/Day Years [...] 1:10 PM EDT Umu Bai RN * [place] Suicide Severity Rating Scale (Screener/Recent Self-Report) Question [...] documented as of this encounter Care Teams Insurance Processor Relationship Specialty Start Date End Date Pcp, Unknown PCP - General 06/08/25 documented as of this encounter Additional Source Comments The information contained in this document represents components of the legal health record. It is not the complete legal health record.[facility]
--- OUTSIDE RECORDS SUMMARY | 2025-07-28 17:20 | XMS_ITS | Clinical Summary ---
Author Organization [facility] Address [address] [place] [address] Care Team Providers Care Creping Machine Operator Name Role Phone Thomas Kam Primary Care Provider [phone] Allergies Active Allergy Reactions Criticality Noted Date [...] EDT - 06/07/2025 4:41 PM EDT Emergency [facility] Emergency Department [address] [place] [address] Ronen Farris MD Abdominal pain (Primary Dx) [...] the original result was not included. Department: [facility] Patient: [id number] (CARLOS GONZALEZ) Patient Location: ED CPT Code: 43887 ICD-9: Referring Physician: RONEN FARRIS Right lower [...] Note Jose Edwards MD - 06/07/2025 Department: [facility] Patient: [id number] (CARLOS GONZALEZ) Patient Location: [facility] CPT Code: 53072 ICD-9: Referring Physician: RONEN FARRIS Right lower [...] for mesenteric ischemia DESCRIPTION: Initial noncontrast localizing fuel dock attendant images were obtained. A timing bolus at [...] for mesenteric ischemia DESCRIPTION: Initial noncontrast localizing fuel dock attendant images were obtained. A timing bolus at [...] guidelines were followed. Ronen Farris MD [facility] ORDERABLES Final Result * (ABNORMAL) INR (06/07/2025 12:02 PM EDT) Anticoagulant WARFARIN (COUMADIN) 06/07/2025 11:19 AM EDT [facility] Prothrombin Time (PT) 27.7(H) 10.0 - 13.5 seconds 06/07/2025 1:14 PM EDT [facility] INR 2.4 06/07/2025 1:14 PM EDT [facility] Comment:INR Therapeutic Rang es: Standard dose anticoagulant 2.0 to 3.0, High dose anticoagulant 2.5-3.5. Blood Blood specimen / Unknown 06/07/2025 12:02 PM EDT 06/07/2025 12:57 PM EDT Ronen Farris MD LAB BLOOD [place]AB[place] [address], [place] [address] * Troponin T, High Sensitivity (06/07/2025 10:29 AM EDT) Pathologist [facility] High Sensitivity Troponin T 7 <23 ng/L 06/07/2025 11:34 AM EDT [facility] Delta (Change) NO PREVIOUS RESULT <3 06/07/2025 11:34 AM EDT [facility] Blood Blood specimen / Unknown 06/07/2025 10:29 AM EDT 06/07/2025 11:05 AM EDT Joaquina PEREZ LAB BLOOD [place]ABLES [place] [address], [place] [address] * (ABNORMAL) Complete Blood Count, with Differential (06/07/2025 10:29 AM EDT) White Blood Cell Count 3.9(L) 4.0 - 11.0 Thou/uL 06/07/2025 11:16 AM [facility] Platelet Count 183 150 - 450 Thou/uL 06/07/2025 11:16 AM [facility] Hemoglobin 12.5(L) 13.0 - 17.7 g/dL 06/07/2025 11:16 AM [facility] Hematocrit 38.3(L) 39.0 - 54.0 % 06/07/2025 11:16 AM [facility] Red Blood Cell Count 4.26(L) 4.50 - 6.20 Mil/uL 06/07/2025 11:16 AM [facility] MCV 90 80 - 100 fL 06/07/2025 11:16 AM [facility] MCH 29.3 27.0 - 31.0 pg 06/07/2025 11:16 AM [facility] MCHC 32.6 30.0 - 36.0 g/dL 06/07/2025 11:16 AM [facility] RDW 15.1(H) 11.5 - 14.5 % 06/07/2025 11:16 AM [facility] MPV 9.7 7.5 - 12.5 fL 06/07/2025 11:16 AM [facility] Neutrophils Auto 51.2 % 06/07/20 11:16 AM [facility] Immature Granulocytes 0.0 % 06/07/2025 11:16 AM [facility] Lymphocytes Auto 38.9 % 06/07/20 11:16 AM [facility] Monocytes Auto 8.9 % 06/07/2025 11:16 AM [facility] Eosinophils Auto 0.5 % 06/07/20 11:16 AM [facility] Basophils Auto 0.5 % 06/07/2025 11:16 AM [facility] Abs Neutrophils Auto 2.01 2.00 - 7.50 Thou/uL 06/07/2025 11:16 AM [facility] Abs Immature Granulocytes 0.00 0.00 - 0.10 Thou/uL 06/07/2025 11:16 AM [facility] Abs Lymphocytes Auto 1.53 1.50 - 4.50 Thou/uL 06/07/2025 11:16 AM [facility] Abs Monocytes Auto 0.35 0.20 - 1.50 Thou/uL 06/07/2025 11:16 AM EDT [facility] Abs Eosinophils Auto 0.02 0.00 - 0.70 Thou/uL 06/07/2025 11:16 AM EDT [facility] Abs Basophils Auto 0.02 0.00 - 0.20 Thou/uL 06/07/2025 11:16 AM EDT [facility] Blood Blood specimen / Unknown 06/07/2025 10:29 AM EDT 06/07/2025 11:05 AM EDT us Joaquina L Sirrine PA LAB BLOOD ORDERABLES [place] [address], [place] [address] * Lipase (06/07/2025 10:29 AM EDT) Lipase 18 13 - 60 U/L 06/07/2025 11:34 AM EDT [facility] Blood Blood specimen / Unknown 06/07/2025 10:29 AM EDT 06/07/2025 11:05 AM EDT us Joaquina L Sirrine PA LAB BLOOD ORDERABLES Agueda l Result Performing Organization Address City/[facility]/[place] [address], [place] [address] * Hepatic Function Panel (06/07/2025 10:29 AM EDT) Alkaline Phosphatase 107 45 - 128 U/L 06/07/2025 11:34 AM EDT [facility] Aspartate Aminotrans (AST) 31 10 - 55 U/L 06/07/2025 11:34 AM EDT [facility] Alanine Aminotrans (ALT) 34 10 - 55 U/L 06/07/2025 11:34 AM EDT [facility] Bilirubin, Total 0.3 0.2 - 1.0 mg/dL 06/07/2025 11:34 AM EDT [facility] Protein, Total 7.8 6.3 - 8.3 g/dL 06/07/2025 11:34 AM [facility] Albumin 3.9 3.5 - 5.0 g/dL 06/07/2025 11:34 AM [facility] Bilirubin, Direct 0.1 0 - 0.2 mg/dL 06/07/2025 11:34 AM [facility] Globulin 3.9 1.5 - 3.9 g/dL 06/07/2025 11:34 AM [facility] Albumin/Globulin Ratio 1.0 1.0 - 3.0 Ratio 06/07/2025 11:34 AM [facility] Blood Blood specimen / Unknown 06/07/2025 10:29 AM EDT 06/07/2025 11:05 AM EDT Joaquina PEREZ LAB BLOOD ORDERABLES Agueda vincent Result Performing Organization Address City/State/[facility] [[email or web address]] [place] [address], [address] [address] * (ABNORMAL) Basic Metabolic Panel (06/07/2025 10:29 AM EDT) Glucose 175(H) 65 - 99 mg/dL 06/07/2025 11:34 AM [facility] Comment:Fasting: <100 mg/dL, Non-Fasting: <200 mg/dL (ADA 2004) Blood Urea Nitrogen (BUN) 12 8 - 21 mg/dL 06/07/2025 11:34 AM [facility] Creatinine 1.02 0.50 - 1.30 mg/dL 06/07/2025 11:34 AM [facility] eGFR 89 >59 06/07/2025 11:34 AM [facility] Comment:CKD-EPI (2020) in mL /min/1.73 sq meters. Sodium 136 136 - 145 mmol/L 06/07/2025 11:34 AM [facility] Potassium 3.9 3.4 - 5.3 mmol/L 06/07/2025 11:34 AM [facility] Chloride 103 98 - 107 mmol/L 06/07/2025 11:34 AM EDT [facility] CO2 21(L) 22 - 33 mmol/L 06/07/2025 11:34 AM EDT [facility] Anion Gap 12 7 - 17 06/07/2025 11:34 AM EDT [facility] Calcium 8.8 8.7 - 10.5 mg/dL 06/07/2025 11:34 AM EDT [facility] BUN/Creatinine Ratio 12 10.0 - 25.0 Ratio 06/07/2025 11:34 AM EDT [facility] Blood Blood specimen / Unknown 06/07/2025 10:29 AM EDT 06/07/2025 11:05 AM EDT Joaquina PEREZ LAB BLOOD ORDERABLES Agueda vincent Result [address] [address], [address] [address] * 10 Min ECG 12 lead (06/07/2025 9:45 AM EDT) Ventricular rate 92 BPM EKG [facility] Atrial rate 92 BPM EKG [facility] P-R interval 142 ms EKG [facility] QRS duration 88 ms EKG [facility] Q-T interval 362 ms EKG [facility] QTC calculation (Bazett) 448 ms EKG [facility] P axis 50 degrees EKG [facility] R axis 37 degrees EKG [facility] T axis 21 degrees EKG [facility] 06/07/2025 9:45 AM EDT Narrative EKG [facility] - 06/07/2025 12:05 PM EDT Normal sinus rhythm Normal ECG When compared with ECG of 29-Oct-2024 15:49, No significant change was found Confirmed by Chema Mckeon MD ([id number]) on 06/07/2025 12:05:00 PM Procedure Note Chema Mckeon MD - 06/07/2025 Normal sinus rhythm Normal ECG When compared with ECG of 29-Oct-2024 15:49, No significant change was found Confirmed by Chema Mckeon MD ([id number]) on 06/07/2025 12:05:00 PM us Mandi Tavarez MD ECG ORDERABLES Final Result EKG [facility] from Last 3 Months Insurance [facility] MEDIC[facility] PART A & B Care Teams Creping Machine Operator Relationship Specialty Start Date End Date Thomas Kam PA PCP - General Emergency Medicine 03/03/23
--- OUTSIDE RECORDS SUMMARY | 2025-07-28 17:20 | XMS_ITS | Encounter Summary ---
Author Organization [facility] Address [address] [place] [phone] Phone Care Team Providers Care Bull Gang Supervisor Name Role Phone Pcp, Unknown Primary Care Provider Unavailabl e Denise Weiner PA-C Primary Care Provider Pcp, Unknown Primary Care Provider Unavailabl e Encounter Details Date Type Department Care Team (Late st Contact Info) Description 05/14/2025 Procedure [facility], [facility] Scan - [facility] [address] [place] [address] Social History Tobacco Use Types Packs/Day Years [...] 9:56 AM EDT Clay Yost, BLANCO * [place] Suicide Severity Rating Scale (Screener/Recent Self-Report) Question [...] documented as of this encounter Care Teams Bull Gang Supervisor Relationship Specialty Start Date End Date Pcp, Unknown PCP - General 05/16/25 06/07/25 Denise Weiner PA-C [address] [place] [id number] [email or web address] PCP - General Physician Learning And Development Administrator 05/15/25 05/15/25 Pcp, Unknown PCP - General 06/08/25 documented as of this encounter Additional Source Comments The information contained in this document represents components of the legal health record. It is not the complete legal health record.[facility]
--- OUTSIDE RECORDS SUMMARY | 2025-07-28 17:20 | XMS_ITS | Clinical Summary ---
Author Organization [facility] Address [address] [place] [address] Phone Care Team Providers Care Case Mgr Name Role Phone Thomas Kam Primary Care Provider Allergies Active Allergy Reactions Criticality Noted Date Comments Acetaminophen Itching 10/13/2024 Dexamethasone Itching 07/01/2025 itching of face and rectum Flu Vaccine [id number](36mo,Up) 10/13/2024 GUILLAN BARRE SYNDROME Lamotrigine Rash 10/13/2024 [...] Chronic obstructive asthma w ith status asthmaticus ([facility] V24, [facility] V28) 05/19/2025 History of appendectomy 05/19/2025 Overview (05/19/2025): 2004 HTN (hypertension) 05/19/2025 Undiagnosed cardiac murmurs 05/19/2025 Ventral hernia 05/19/2025 C. difficile diarrhea 12/10/2024 HIV (human immunodeficiency virus infection) ([facility] V24, [facility] V28) 11/12/2024 Hypothyroid 11/12/2024 Epilepsy ([facility] V24, [facility] V28) 11/12/2024 DVT (deep venous thrombosis) ([facility] V24, [facility] V28) 11/12/2024 Deep vein thrombosis (DVT) o f both lower extremities ([facility] V24, [facility] V28) 11/12/2024 HLD (hyperlipidemia) 11/12/2024 Type 2 diabetes mellitus, [facility] long-term current use of insulin ([facility] V24, [facility] V28) 11/12/2024 Diverticulitis large intesti ne w/o [...] hyperglycemia, without long-term current use of insulin ([facility] V24, [facility] V28) 04/09/2024 Overview (05/19/2025): DM dx: unclear Glucometer: Thalmic LabsTouch Verio Current Diabetes RX: Ozempic 1 mg [...] Diabetes retinal exam: Missed follow-up appt with [facility] in April 2024, recommended patient call to reschedule Patient reports [facility] will not see him due to multiple no-shows 05/24/23 at [facility] No evidence of diabetic [...] by Discern Expert Abdominal aortic aneurysm (AAA) ([facility] V24) 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 Impression and Plan: Stop Vimpat. Encouraged pt to make behavioral health appt. Abnormal CXR 05/07/2019 Overview (05/19/2025): 05/07/19 - CXR Chest Routine 2 Views, [facility] Diag Img Dep't, 12/26/18: Findings: The cardiomediastinal [...] (05/19/2025): 05/07/19 - - CT Chest Angiography, [facility] Dia Img Dep't, 03/27/19: Findings: [#5.] Bony [...] Care Team Description 07/08/2025 Telephone Gastroenterology - [place] [address] [facility] [address] [facility] [address] [place] [phone] Myrtle Gonzalez MD 07/05/2025 5:25 PM EST - 07/06/2025 1:00 AM EST Emergency [facility] Emergency [address] [place] [address] Marcos Alfaro MD Ziebro, John, MD Linnerooth, Warren, MD Left leg swelling (Primary Dx); Left lower quadrant abdominal pain; Acute abdominal pain Discharge Disposition: Home or Self Care 07/01/2025 2:17 PM EST Anesthesia Event [facility] Endoscopy [address] [place] [phone] Sharif Lopez MD Korobkov, Vitaliy, DO 07/01/2025 12:06 PM EST - 07/01/2025 11:59 PM EST Hospital Encounter [facility] Endoscopy [address] [place] [address] Myrtle Gonzalez MD Steele, Matthew G, CRNA Dasilva, John E, MD Abnormal CT scan, colon; Left sided abdominal pain; BRBPR (bright red blood per rectum) Discharge Disposition: Home or Self Care 06/09/2025 Telephone Gastroenterology - [place] [address] [facility] [address] [place] [address] Myrtle Gonzalez MD 05/21/2025 1:00 PM EDT Office Visit Gastroenterology - [address] [facility] [address] [address] [place] [phone] Pablo Yip PA Left sided abdominal pain (Primary Dx); Abnormal CT scan, colon; Rectal pain; BRBPR (bright red blood per rectum); Diverticulitis large intestine w/o perforation or abscess w/bleeding 05/21/2025 Telephone Gastroenterology - [address] [facility] [address] [facility] [address] [place] [phone] Elvin Ha MD from Last 3 Months Surgical History Surgery Date Site/Laterality Comments AAA REPAIR OTHER SURGICAL HISTORY Right lower extremtity bypass COLON SURGERY sigmoid resection due to diverticulitis HERNIA REPAIR Medical History Medical History Date Comments DVT (deep vein thrombosis) in Hypothyroid HIV (human immunodeficiency virus infection) ([facility] V24, [facility] V28) Asthma Diabetes mellitus ([facility] V24, [facility] V28) C. difficile colitis Diverticulosis Social History [...] MD on 07/06/2025 00:17:31 Marcos Alfaro MD [facility] PROCEDURES Final Result * Lactate (07/05/2025 11:24 PM EST) Lactate 1.9 0.4 - 2.0 mmol/L LAB CHEMISTRY METHOD 07/05/2025 11:59 PM EST [facility] ([facility] Blood Venous blood specimen / Unknown Venipuncture / Unknown 07/05/2025 11:24 PM EST 07/05/2025 11:31 PM EST Marcos Alfaro MD LAB BLOOD ORDERABLES Final Resul t [facility] [address] [place] [address], [place] [phone] * 12-Lead ECG (07/05/2025 10:56 PM EST) Ventricular Rate ECG 74 BPM GEMUSE Atrial Rate 74 BPM GEMUSE P-R Interval 158 ms GEMUSE QRS Duration 94 ms GEMUSE Q-T Interval 410 ms GEMUSE QTc 455 ms GEMUSE P Wave Yoder 35 degrees GEMUSE R Yoder 28 degrees GEMUSE T Yoder 21 degrees GEMUSE ECG Interpretation Normal sinus rhythm Normal ECG When compared with ECG of 26-JUN-2021 15:42, No significant change was found Confirmed by MD Avery, [place] ([id number]) on 07/06/2025 4:58:39 PM GEMUSE 07/05/2025 10:5 6 PM EST 07/06/2025 4:58 PM EST Marcos Alfaro MD ECG ORDERABLES Final Result Performing Organization Address City/[facility]/ZIP Co de Phone Number GEMUSE * Urinalysis with reflex microscopic (07/05/2025 7:57 PM EST) [facility] Specific [place] Urine 1.020 1.003 - 1.030 LAB URINALYSIS - AUTOMATED METHOD 07/05/2025 10:35 PM [facility] pH, Urine 7.0 5.0 - 8.0 pH LAB URINALYSIS - AUTOMATED METHOD 07/05/2025 10:35 PM [facility] Leukocytes, Urine Negative Negative LAB URINALYSIS - AUTOMATED METHOD 07/05/2025 10:35 PM [facility] Nitrite, Urine Negative Negative LAB URINALYSIS - AUTOMATED METHOD 07/05/2025 10:35 PM [facility] Protein, Urine Trace <=Trace mg/dL LAB URINALYSIS - AUTOMATED METHOD 07/05/2025 10:35 PM [facility] Glucose, Urine Negative Negative mg/dL LAB URINALYSIS - AUTOMATED METHOD 07/05/2025 10:35 PM EST [facility] Ketones, Urine Negative Negative mg/dL LAB URINALYSIS - AUTOMATED METHOD 07/05/2025 10:35 PM [facility] Urobilinogen, Urine 0.2 0.2 - 1.0 mg/dL LAB URINALYSIS - AUTOMATED METHOD 07/05/2025 10:35 PM EST [facility] Bilirubin, Urine Negative Negative LAB URINALYSIS - AUTOMATED METHOD 07/05/2025 10:35 PM [facility] Blood, Urine Negative Negative LAB URINALYSIS - AUTOMATED METHOD 07/05/2025 10:35 PM [facility] Urine Urine specimen obtained by clean catch procedure / Unknown Non-blood Collection / Unknown 07/05/2025 7:57 PM EST 07/05/2025 10:27 PM EST us Marcos Alfaro MD LAB URINE ORDERABLES Final Resul t [facility] [address] [place] [address], * XR Chest 1 View (07/05/2025 6:17 [...] Signed Date: 07/06/2025 09:37 ET Workstation ID: [id number] Transcribed By: Self Edit Transcribed Date: 07/06/2025 [...] Signed Date: 07/06/2025 09:37 ET Workstation ID: [id number] Transcribed By: Self Edit Transcribed Date: 07/06/2025 [...] Signed Date: 07/05/2025 18:15 ET Workstation ID: [id number] Transcribed By: Self Edit Transcribed Date: 07/05/2025 [...] Signed Date: 07/05/2025 18:15 ET Workstation ID: [id number] Transcribed By: Self Edit Transcribed Date: 07/05/2025 18:15 ET us Marcos Alfaro MD CV VASCULAR PROCEDURES Final Res ult * (ABNORMAL) CBC auto differential (07/05/2025 4:48 PM EST) WBC 5.4 4.8 - 10.8 K/mcL LAB HEMETOLOGY METHOD 07/05/2025 5:26 PM [facility] RBC 4.30(L) 4.50 - 5.50 M/mcL LAB HEMETOLOGY METHOD 07/05/2025 5:26 PM [facility] Hemoglobin 12.6(L) 13.5 - 17.5 g/dL LAB HEMETOLOGY METHOD 07/05/2025 5:26 PM [facility] Hematocrit 38.6(L) 42.0 - 54.0 % LAB HEMETOLOGY METHOD 07/05/2025 5:26 PM [facility] MCV 90.6 79.0 - 98.0 FL LAB HEMETOLOGY METHOD 07/05/2025 5:26 PM [facility] MCH 29.6 27.0 - 32.0 pcg LAB HEMETOLOGY METHOD 07/05/2025 5:26 PM [facility] MCHC 32.6 32.0 - 37.0 g/dL LAB HEMETOLOGY METHOD 07/05/2025 5:26 PM [facility] RDW 14.2 11.0 - 15.0 % LAB HEMETOLOGY METHOD 07/05/2025 5:26 PM [facility] Platelets 175 130 - 400 K/mcL LAB HEMETOLOGY METHOD 07/05/2025 5:26 PM [facility] MPV 9.5 7.0 - 11.0 FL LAB HEMETOLOGY METHOD 07/05/2025 5:26 PM [facility] NRBC 0.0 <1.0 % LAB HEMETOLOGY METHOD 07/05/2025 5:26 PM [facility] NRBC Absolute 0.00 <0.10 K/mcL LAB HEMETOLOGY METHOD 07/05/2025 5:26 PM [facility] Neutrophils Relative 43.0 % LAB HEMETOLOGY METHOD 07/05/2025 5:26 PM [facility] Lymphocytes Relative 44.7 % LAB HEMETOLOGY METHOD 07/05/2025 5:26 PM [facility] Monocytes Relative 10.9 % LAB HEMETOLOGY METHOD 07/05/2025 5:26 PM [facility] Eosinophils Relative 0.6 % LAB HEMETOLOGY METHOD 07/05/2025 5:26 PM [facility] Basophils Relative 0.6 % LAB HEMETOLOGY METHOD 07/05/2025 5:26 PM [facility] Immature Granulocytes Relative 0.2 % LAB HEMETOLOGY METHOD 07/05/2025 5:26 PM [facility] Neutrophils Absolute 2.32 1.50 - 7.00 K/mcL LAB HEMETOLOGY METHOD 07/05/2025 5:26 PM [facility] Lymphocytes Absolute 2.41 1.00 - 5.00 K/mcL LAB HEMETOLOGY METHOD 07/05/2025 5:26 PM EST [facility] Monocytes Absolute 0.59 0.20 - 1.00 K/mcL LAB HEMETOLOGY METHOD 07/05/2025 5:26 PM EST [facility] Eosinophils Absolute 0.03 0.00 - 0.50 K/mcL LAB HEMETOLOGY METHOD 07/05/2025 5:26 PM EST [facility] Basophils Absolute 0.03 0.00 - 0.20 K/mcL LAB HEMETOLOGY METHOD 07/05/2025 5:26 PM EST [facility]) [facility] Immature Granulocytes Absolute 0.01 0.00 - 0.03 K/[facility] LAB HEMETOLOGY METHOD 07/05/2025 5:26 PM EST [facility] Blood Venous blood specimen / Unknown Venipuncture / Unknown 07/05/2025 4:48 PM EST 07/05/2025 5:19 PM EST us Chicho Cortez MD LAB BLOOD ORDERABLES Final Resu lt [facility] [address] [place] [address], [place] [phone] * Lipase (07/05/2025 4:48 PM EST) Lipase 17 13 - 75 unit/L LAB CHEMISTRY METHOD 07/05/2025 5:44 PM EST [facility] Blood Venous blood specimen / Unknown Venipuncture / Unknown 07/05/2025 4:48 PM EST 07/05/2025 5:19 PM EST us Chicho Cortez MD LAB BLOOD ORDERABLES Final Resu lt [facility] [address] [place] [address], [place] [phone] * (ABNORMAL) Comprehensive metabolic panel (07/05/2025 4:48 PM EST) Sodium 135 133 - 145 mmol/L LAB CHEMISTRY METHOD 07/05/2025 5:46 PM [facility] Potassium 3.8 3.5 - 5.5 mmol/L LAB CHEMISTRY METHOD 07/05/2025 5:46 PM [facility] Chloride 105 96 - 110 mmol/L LAB CHEMISTRY METHOD 07/05/2025 5:46 PM [facility] CO2 28 21 - 32 mmol/L LAB CHEMISTRY METHOD 07/05/2025 5:46 PM [facility] Anion Gap 2(L) 3 - 11 LAB CHEMISTRY METHOD 07/05/2025 5:46 PM [facility] Glucose 119(H) 70 - 100 mg/dL LAB CHEMISTRY METHOD 07/05/2025 5:46 PM [facility] BUN 13 5 - 25 mg/dL LAB CHEMISTRY METHOD 07/05/2025 5:46 PM [facility] Creatinine 1.15 0.70 - 1.30 mg/dL LAB CHEMISTRY METHOD 07/05/2025 5:46 PM [facility] eGFR 77 >=60 mL/min/1. 73m2 LAB CHEMISTRY METHOD 07/05/2025 5:46 PM [facility] Comment:Calculation based on the Chronic Kidney Disease Epidemiology Collaboration (CKD-EPI) equation refit without adjustment for race. BUN/Creatinine Ratio 11.3 LAB CHEMISTRY METHOD 07/05/2025 5:46 PM [facility] Calcium 9.0 8.5 - 10.5 mg/dL LAB CHEMISTRY METHOD 07/05/2025 5:46 PM [facility] AST (SGOT) 21 10 - 42 unit/L LAB CHEMISTRY METHOD 07/05/2025 5:46 PM [facility] ALT (SGPT) 45 10 - 60 unit/L LAB CHEMISTRY METHOD 07/05/2025 5:46 PM EST [facility] Alkaline Phosphatase 112 42 - 121 unit/L LAB CHEMISTRY METHOD 07/05/2025 5:46 PM EST [facility] Total Protein 8.5(H) 6.0 - 8.0 g/dL LAB CHEMISTRY METHOD 07/05/2025 5:46 PM EST [facility] Albumin 3.7 3.2 - 5.0 g/dL LAB CHEMISTRY METHOD 07/05/2025 5:46 PM EST [facility] Total Bilirubin 0.4 0.0 - 1.4 mg/dL LAB CHEMISTRY METHOD 07/05/2025 5:46 PM EST [facility] Blood Venous blood specimen / Unknown Venipuncture / Unknown 07/05/2025 4:48 PM EST 07/05/2025 5:19 PM EST Chicho Cortez MD LAB BLOOD ORDERABLES Final Resu lt [facility] [address] [place] [address], * COLONOSCOPY Anesthesia - [facility]; [facility] ENDOSCOPY (07/01/2025 2:43 PM [...] for surveillance. Narrative 07/01/2025 2:45 PM EST [facility] GI Patient Name: Jerome Hayden Procedure Date: [...] verified by the physician, the nurse, the clinic cma and the renal technician in the pre-procedure area in the [...] reduce spontaneously). Procedure Code(s): --- Professional --- 38962, Colonoscopy, flexible; with removal of tumor(s), polyp(s), or other lesion(s) by snare technique Diagnosis Code(s): --- Professional --- D12.5, Benign neoplasm of sigmoid colon R93.3, Abnormal findings on diagnostic imaging of other parts of digestive tract CPT copyright 2020 [employer]. All rights reserved. The codes documented in this report are preliminary and upon him coder review may be revised to meet current compliance requirements. Myrtle Gonzalez MD 07/01/2025 2:45:55 PM This report has been signed electronically.Myrtle Gonzalez MD Number of Addenda: 0 Note Initiated On: 07/01/2025 2:27 PM Scope Withdrawal Time: 0 hours 6 minutes 45 seconds Scope In: 2:33:42 PM Scope Out: 2:42:28 PM Endoscopy Department at [facility] - [address] [place] [phone] Procedure Note Myrtle Gonzalez MD - 07/01/2025 [facility] GI Patient Name: Jerome Hayden Procedure Date: [...] the physician, the nurse, theanesthetist and the renal technician in the pre-procedure area in the [...] wasminimal. There was evidence of a prior uax-je-oxglhdf-colonic anastomosis in the distal sigmoid colon. This was patent and was characterized by healthy appearing mucosa. The anastomosis was traversed. Many small and large-mouthed diverticula were foundin the entire colon. Internal hemorrhoids were found duringretroflexion. The hemorrhoids were Grade II (internal hemorrhoids that prolapse but reduce spontaneously). Procedure Code(s): --- Professional --- 08549, Colonoscopy, flexible; with removal of tumor(s), polyp(s), or other lesion(s) by snare technique Diagnosis Code(s): --- Professional --- D12.5, Benign neoplasm of sigmoid colon R93.3, Abnormal findings on diagnostic imaging of other parts of digestive tract CPT copyright 2020 [employer]. All rights reserved. The codes documented in this report are preliminary and upon him coder reviewmay be revised to meet current compliance requirements. 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
--- OUTSIDE RECORDS SUMMARY | 2025-07-28 17:20 | XMS_ITS | Encounter Summary ---
Author Organization [facility] Address [address] [facility] [address] [place] [phone] Phone Care Team Providers Care Cigar Bander Hand Name Role Phone Pcp, Unknown Primary Care Provider Unavailabl e Denise Weiner PA-C Primary Care Provider Pcp, Unknown Primary Care Provider Unavailabl e Encounter Details Date Type Department Care Team (Late st Contact Info) Description 05/14/2025 Procedure [facility], Ct Scan - [facility] [address] [place] [address] Social History Tobacco Use Types Packs/Day Years [...] 9:56 AM EDT Clay Yost, BLANCO * [place] Suicide Severity Rating Scale (Screener/Recent Self-Report) Question [...] documented as of this encounter Care Teams Cigar Bander Hand Relationship Specialty Start Date End Date Pcp, Unknown PCP - General 05/16/25 06/07/25 Denise Weiner PA-C [address] [place] [address] [email or web address] PCP - General Physician Infantry Operations Specialist 05/15/25 05/15/25 Pcp, Unknown PCP - General 06/08/25 documented as of this encounter Additional Source Comments The information contained in this document represents components of the legal health record. It is not the complete legal health record.[facility]
--- OUTSIDE RECORDS SUMMARY | 2025-07-28 17:20 | XMS_ITS | Clinical Summary ---
Author Organization [facility] Address [address] [place] [address] Care Team Providers Care Fire Protection Designer Name Role Phone Thomas Kam Primary Care [...] age to complete this topic Care Teams Fire Protection Designer Relationship Specialty Start Date End Date Thomas Kam PA [address] [place] [address] PCP - General Physician Coach Tour Driver 02/16/23
--- OUTSIDE RECORDS SUMMARY | 2025-07-28 17:20 | XMS_ITS | Clinical Summary ---
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 Role Phone Pcp, Unknown Primary Care Provider Unavailabl e Allergies Active Allergy Reactions Criticality Noted Date Comments Acetaminophen Hives,Itching,Unknow n High 02/11/2022 Other reaction(s): Unknown/Patient and Family Unable to Define Dexamethasone 06/08/2025 Other Reaction(s): Itching of male genital organs itching of face and rectum Fish Containing Products 10/02/2018 Fish Derived Unknown Medium 02/11/2022 Flu Vaccine [id number](6mos Up) 05/14/2025 Influenza Virus Vaccines Unknown Medium 02/11/2022 Hx of Guillain - [place] Ketorolac Rash Low 10/13/2024 Lamotrigine 05/14/2025 Shellfish Containing Products 05/14/2025 Oxycodone Itching,Unknown Medium 11/30/2018 Other Reaction(s): itch, Unspecified Oxycodone Other reaction(s): Unknown/Patient and Family Unable to Define Oxycodone-Acetaminophen 05/14/2025 Carbamazepine 05/14/2025 Tramadol 05/14/2025 Medications No known medications Encounters Date Type Department Care Team Description 07/13/2025 12:54 PM EST - 07/13/2025 7:45 PM EST Emergency [facility] [address] [place] [address] Discharge Disposition: Home or Self Care 07/13/2025 Procedure Pass [facility], Ct Scan - [facility] [address] [place] [address] 06/08/2025 3:16 PM EDT - 06/08/2025 11:35 PM EDT Emergency [facility] Emergency [address] [place] [address] Mark Garcia MD Discharge Disposition: Home or Self Care 06/08/[address] [address] 06/08/[address] [address] 05/16/2025 9:30 AM EDT - 05/16/2025 11:59 PM EDT Hospital Encounter [facility] Phleb [address] [address] Denise Weiner PA-C Discharge Disposition: Home or Self Care 05/16/2025 Transcribe Orders [address] [address] Denise Weiner PA-C Diarrhea, unspecified type (Primary Dx) 05/16/2025 Transcribe Orders [facility] [address] [address] Denise Weiner PA-C Diarrhea, unspecified type (Primary Dx) 05/15/2025 9:13 AM EDT - 05/15/2025 11:59 PM EDT Hospital Encounter [facility] Specimen Processing [address] [place] [address] Denise Weiner PA-C Discharge Disposition: Home or Self Care 05/14/2025 9:56 AM EDT - 05/14/2025 6:00 PM EDT Emergency [facility] Emergency [address] [place] [address] Mark Garcia MD [facility], Xavi Elizabeth MD Discharge Disposition: Home or Self Care 05/14/2025 Procedure [facility], [address] [address] 05/14/[address] [address] from Last 3 Months Social History Tobacco [...] clinician's provided indication for this examination in [facility]: Left Leg Pain; Right Leg Pain [...] clinician's provided indication for this examination in [facility]:Left Leg Pain; Right Leg Pain Review [...] - 13.0 sec 07/13/2025 2:59 PM EST [facility] INR 1.0 0.9 - 1.1 07/13/2025 2:59 PM EST [facility] Comment:Therapeutic Range 2. 0 - 3.5 Blood (Blood) Venipuncture / Unknown 07/13/2025 2:29 PM EST 07/13/2025 2:41 PM EST us Kailey Mullins PA-C LAB BLOOD BKR ORDERAB LES Final Result [facility] [address] [place] [address] * (ABNORMAL) CBC and Differential (07/13/2025 2:28 PM EST) WBC 6.78 4.00 - 11.00 K/uL 07/13/2025 2:53 PM [facility] RBC 4.03(L) 4.50 - 5.90 M/uL 07/13/2025 2:53 PM [facility] Hemoglobin 12.0(L) 13.5 - 17.5 g/dL 07/13/2025 2:53 PM [facility] Hematocrit 37.2(L) 41.0 - 53.0 % 07/13/2025 2:53 PM [facility] MCV 92.3 80.0 - 100.0 fL 07/13/2025 2:53 PM [facility] MCH 29.8 27.0 - 31.0 pg 07/13/2025 2:53 PM [facility] MCHC 32.3 32.0 - 36.0 g/dL 07/13/2025 2:53 PM [facility] MPV 9.5 8.4 - 12.0 fL 07/13/2025 2:53 PM [facility] RDW-CV 14.6(H) 11.5 - 14.5 % 07/13/2025 2:53 PM [facility] PLT 159 150 - 450 K/uL 07/13/2025 2:53 PM [facility] Neutrophils 56.8 % 07/13/2025 2:53 PM [facility] Lymphocytes 33.5 % 07/13/2025 2:53 PM [facility] Monocytes 8.7 % 07/13/2025 2:53 PM [facility] Eosinophils 0.3 % 07/13/2025 2:53 PM [facility] Basophils 0.4 % 07/13/2025 2:53 PM [facility] Imm Grans 0.3 % 07/13/2025 2:53 PM [facility] NRBC 0.0 <=0.0 /100 WBCs 07/13/2025 2:53 PM [facility] Absolute Neutrophils 3.85 1.92 - 7.60 K/uL 07/13/2025 2:53 PM [facility] Absolute Lymphocytes 2.27 0.72 - 4.10 K/uL 07/13/2025 2:53 PM [facility] Absolute Monocytes 0.59 0.16 - 1.10 K/uL 07/13/2025 2:53 PM [facility] Absolute Eosinophils 0.02 0.00 - 0.50 K/uL 07/13/2025 2:53 PM [facility] Absolute Basophils 0.03 0.00 - 0.15 K/uL 07/13/2025 2:53 PM [facility] Absolute Imm Grans 0.02 0.00 - 0.09 K/uL 07/13/2025 2:53 PM [facility] Absolute NRBC 0.00 <=0.00 K cells/uL 07/13/2025 2:53 PM [facility] Absolute Neutrophils 3.85 1.92 - 7.60 K/uL 07/13/2025 2:53 PM [facility] Comment:Automated cell count . Manual ANC may differ if performed. Diff Type Auto 07/13/2025 2:53 PM [facility] Blood (Blood) Venipuncture / Unknown 07/13/2025 2:28 PM EST 07/13/2025 2:41 PM EST us Kailey Mullins PA-C LAB BLOOD BKR ORDERAB LES Final Result [address] [address] * Hepatic Panel (LFTs) (07/13/2025 2:28 PM EST) Only the most recent of3 resultswithin the time period is included. AST 25 <40 U/L 07/13/2025 3:29 PM [facility] ALT 25 <50 U/L 07/13/2025 3:29 PM [facility] Alkaline Phosphatase 105 40 - 130 U/L 07/13/2025 3:29 PM [facility] Bilirubin, Total 0.4 0.0 - 1.2 mg/dL 07/13/2025 3:29 PM [facility] Bilirubin, Direct 0.1 0.0 - 0.3 mg/dL 07/13/2025 3:29 PM [facility] Total Protein 8.3 6.4 - 8.3 g/dL 07/13/2025 3:29 PM [facility] Albumin 4.3 3.5 - 5.2 g/dL 07/13/2025 3:29 PM [facility] Globulin 4.0 1.9 - 4.1 g/dL 07/13/2025 3:29 PM [facility] Blood (Blood) Venipuncture / Unknown 07/13/2025 2:28 PM EST 07/13/2025 2:41 PM EST us Kailey Mullins PA-C LAB BLOOD BKR ORDERAB LES Final Result Performing Organization Address City/[facility]/ZIP Co de Phone Number [address] [address] * Lipase (07/13/2025 2:28 PM EST) Only the most recent of3 resultswithin the time period is included. Pathologist [facility] Lipase 17 13 - 60 U/L 07/13/2025 3:29 PM [facility] Blood (Blood) Venipuncture / Unknown 07/13/2025 2:28 PM EST 07/13/2025 2:41 PM EST us Kailey PEREZ-Zhen LAB BLOOD BKR ORDERAB LES Final Result [address] [address] * (ABNORMAL) Basic Metabolic Panel (BMP) (07/13/2025 2:28 PM EST) Only the most recent of3 resultswithin the time period is included. Sodium 135(L) 136 - 145 mmol/L 07/13/2025 3:29 PM [facility] Potassium 4.4 3.4 - 5.1 mmol/L 07/13/2025 3:29 PM [facility] Chloride 102 98 - 107 mmol/L 07/13/2025 3:29 PM [facility] CO2 25 20 - 31 mmol/L 07/13/2025 3:29 PM [facility] Anion Gap 8 3 - 17 mmol/L 07/13/2025 3:29 PM [facility] BUN 10 6 - 23 mg/dL 07/13/2025 3:29 PM [facility] Creatinine 1.00 0.60 - 1.30 mg/dL 07/13/2025 3:29 PM [facility] eGFR 91 >59 mL/min/1.7 3m2 07/13/2025 3:29 PM [facility] Comment:Estimated glomerular filtration rate calculated using the CKD-EPI refit equation. Glucose 134(H) 70 - 99 mg/dL 07/13/2025 3:29 PM [facility] Calcium 9.1 8.5 - 10.5 mg/dL 07/13/2025 3:29 PM [facility] Blood (Blood) Venipuncture / Unknown 07/13/2025 2:28 PM EST 07/13/2025 2:41 PM EST us Kailey Mullins PA-C LAB BLOOD BKR ORDERAB LES Final Result [address] [id number] * (ABNORMAL) Urinalysis with Reflex to Urine Culture (07/13/2025 2:01 PM EST) Only the most recent of3 resultswithin the time period is included. Color Yellow Yellow 07/13/2025 2:22 PM [facility] Clarity Clear Clear 07/13/2025 2:22 PM [facility] Glucose 3+(A) Negative 07/13/2025 2:22 PM [facility] Bilirubin Urine Negative Negative 2:22 PM [facility] Ketone Urine Negative Negative 07/13/2025 2:22 PM EST [facility] Specific Cook 1.025 1.001 - 1.035 07/13/2025 2:22 PM EST [facility] Blood Negative Negative 07/13/2025 2:22 PM [facility] pH 6.0 5.0 - 8.0 07/13/2025 2:22 PM EST [facility] Protein Negative Negative 07/13/2025 2:22 PM EST [facility] Nitrites Negative Negative 07/13/2025 2:22 PM [facility] Leukocyte Esterase Negative Negative 07/13/2025 2:22 PM EST [facility] Urobilinogen Negative Negative 07/13/2025 2:22 PM EST [facility] Urine (Urine, Voided) Non-Blood Collection / Unknown 07/13/2025 2:01 PM EST 07/13/2025 2:09 PM EST us Kailey Mullins PA-C LAB URINE ORDERABLES Final Result [address] [address] * ECG 12-LEAD (07/13/2025 1:25 PM EST) Only the most recent of3 resultswithin the time period is included. Ventricular Rate EKG/MIN 88 BPM [facility] Atrial Rate 88 BPM [facility] WY Interval 124 ms [facility] QRS Duration 84 ms [facility] QT Interval 396 ms [facility] QTC Interval 479 ms [facility] P [place] 42 degrees [facility] R Wave [place] 50 degrees [facility] T Wave [place] 26 degrees [facility] 07/13/2025 1:25 PM EST [...] EDT) LACTATE 1.60 0.50 - 2.20 mmol/L [facility] Blood 06/08/2025 8:29 PM EDT 06/08/2025 8:32 PM EDT Kailey De La Garza PA-C LAB BLOOD BKR ORDERABLE S Final Result [address] [address] * CT ANGIO ABDOMINAL AORTA AND BILATERAL [...] run-off is present with patent SARAN and CLIENT SALES AND SERVICE OFFICER. Proximal peroneal artery is patent with nonopacification [...] run-off is present with patent SARAN and CLIENT SALES AND SERVICE OFFICER. Proximal peroneal artery is patent with nonopacification [...] clinician's provided indication for this examination in [facility]: *Claudication or leg ischemia, prior revasc [...] run-off is present with patent SARAN and CLIENT SALES AND SERVICE OFFICER. Proximal peronealartery is patent with nonopacification of [...] vessel run-off ispresent with patent SARAN and CLIENT SALES AND SERVICE OFFICER. Proximal peroneal artery is patent withnonopacification of [...] clinician's provided indication for this examination in [facility]: *PE suspected, high prob TECHNIQUE: Multidetector [...] clinician's provided indication for this examination in [facility]: Left Leg Pain; Right Leg Pain [...] clinician's provided indication for this examination in [facility]:Left Leg Pain; Right Leg Pain TECHNIQUE: [...] PM EDT) Specimen Source/Descriptio n NASOPHARYNGEAL SWAB [facility] Influenza A PCR Not Detected Not Detected [facility] Influenza B PCR Not Detected Not Detected [facility] SARS-CoV 2 (COVID-19) PCR Not Detected Not Detected [facility] Comment: SARS-CoV-2 not detected Negative results do not preclude SARS-CoV-2 infection and should not be used as the sole basis for patient management decisions. Negative results must be combined with clinical observations, patient history, and epidemiological information. 06/08/2025 4:00 PM EDT 06/08/2025 4:21 PM EDT Kailey De La Garza PA-C LAB GENERAL ORDERABLES Final Result [address] [address] * COVID Pandemic Respiratory Viral Order (PRO) (06/08/2025 4:00 PM EDT) Test Ordered Rapid COVID has been ordered [facility] Specimen Source/Descri ption CREDITED: CANCELLED BY PROVIDER. Add on flu received. Reordered as Covid and flu testing. [facility] SARS-CoV 2 (COVID-19) PCR CREDITED: CANCELLED BY PROVIDER. Add on flu received. Reordered as Covid and flu testing. Not Detected [facility] Other (Nasopharyngeal swab) 06/08/2025 4:00 PM EDT 06/08/2025 4:18 PM EDT Kailey De La Garza PA-C LAB GENERAL ORDERABLES Final Result Performing Organization Address [facility] Co de Phone Number [address] [address] * (ABNORMAL) Urine sediment (06/08/2025 3:50 PM EDT) WBC 0-4(A) NONE SEEN /hpf [facility] RBC 0-2(A) NONE SEEN /hpf [facility] URINE EPITHELIAL 21-49(A) NONE SEEN [facility] MUCUS 2+(A) NONE SEEN /hpf [facility] BACTERIA NONE SEEN NONE SEEN /hpf [facility] CAST 0-2 [facility] Comment:HYALINE CAST 06/08/2025 3:50 PM EDT 06/08/2025 4:25 PM EDT Stalin Lopez MD LAB URINE ORDERABLES Final Resu lt Performing Organization Address [facility] Co de Phone Number [address] [address] * Troponin (06/08/2025 3:17 PM EDT) Only the most recent of4 resultswithin the time period is included. Troponin-T, HS Gen5 <6 0 - 14 ng/L [facility] Blood 06/08/2025 3:17 PM EDT 06/08/2025 3:35 PM EDT us Stalin Lopez MD LAB BLOOD BKR ORDERABLES Final Result Performing Organization Address [facility] Co de Phone Number [address] [address] * (ABNORMAL) CBC and differential (06/08/2025 1:55 PM EDT) Only the most recent of2 resultswithin the time period is included. WBC 4.29 4.00 - 11.00 K/uL [facility] RBC 4.66 4.50 - 5.90 M/uL [facility] HGB 13.8 13.5 - 17.5 g/dL [facility] HCT 42.7 41.0 - 53.0 % [facility] PLT 163 150 - 450 K/uL [facility] MCV 91.6 80.0 - 100.0 fL [facility] MCH 29.6 27.0 - 31.0 pg [facility] MCHC 32.3 32.0 - 36.0 g/dL [facility] RDW 15.2(H) 11.5 - 14.5 % [facility] MPV 9.5 8.4 - 12.0 fL [facility] NRBC 0.00 0.00 /100 WBCs [facility] ABSOLUTE NRBC 0.00 0.00 K/uL [facility] DIFF METHOD Auto [facility] NEUTS 59.2 48.0 - 76.0 % [facility] LYMPHS 28.2 18.0 - 41.0 % [facility] MONOS 11.2(H) 4.0 - 11.0 % [facility] EOS 0.7 0.0 - 5.0 % [facility] BASOS 0.5 0.0 - 1.5 % [facility] Granulocytes, immature (%) 0.2 0.0 - 0.9 % [facility] ABSOLUTE NEUTS 2.54 1.92 - 7.60 K/uL [facility] ABSOLUTE LYMPHS 1.21 0.72 - 4.10 K/uL [facility] ABSOLUTE MONOS 0.48 0.16 - 1.10 K/uL [facility] ABSOLUTE EOS 0.03 0.00 - 0.50 K/uL [facility] ABSOLUTE BASOS 0.02 0.00 - 0.15 K/uL [facility] Granulocytes, immature 0.01 0.00 - 0.09 K/uL [facility] Blood 06/08/2025 1:55 PM EDT 06/08/2025 2:12 PM EDT us Stalin Lopez MD LAB BLOOD BKR ORDERABLES Final Result [address] [address] * Giardia and cryptosporidium screen (05/16/2025 10:21 AM EDT) GIARDIA AG Negative Negative [facility] Cryptosporidiu m, stool Negative Negative [facility] Stool (Stool) 05/16/2025 10: 21 AM EDT 05/16/2025 1:09 PM EDT us Denise Weiner PA-C NON CULTURE MICROBIOLOGY Fi nal Result Performing Organization Address [facility]/ZIP Co de Phone Number [address] [address] * C. DIFFICILE PCR (05/15/2025 6:00 PM EDT) C.DIFFICILE PCR Negative Negative [facility] C.DIFFICILE STRAIN PRESUMPTIVE NEGATIVE PRESUMPTIVE NEGATIVE [facility] Comment:Detection of 027/NAP 1/BI strains of C.difficile is presumptive and is solely for epidemiological purposes and is not intended to guide or monitor treatment of infections. Stool (Stool) 05/15/2025 6:0 0 PM EDT 05/16/2025 10:14 AM EDT us Denise Weiner PA-C LAB BODY FLUIDS AND STOOL O RDERABLES Final Result Performing Organization Address [facility]/ZIP Co de Phone Number [address] [address] * Ova and parasites, stool (05/15/2025 6:00 PM EDT) Parasitic exam FINAL 5 1506 [facility] DPT OF LAB MED AND PAT+ [...] FLUIDS AND STOOL O RDERABLES Final Result [facility] DPT OF LAB MED AND PAT+ [address] [place] [address] * Stool culture (05/15/2025 6:00 PM EDT) Special Requests None 05/16/2025 9:42 AM EDT [facility] Stool Culture NO SALMONELLA, SHIGELLA OR CAMPYLOBACTER ISOLATED 05/18/2025 11:49 AM EDT [facility] Stool (Stool) 05/15/2025 6:0 0 PM EDT 05/16/2025 10:12 AM EDT us Denise Weiner PA-C LAB MICROBIOLOGY CULTURE OR DERABLES Final Result Performing Organization Address City/[facility] Co de Phone Number [facility] [address] [place] [address] * US Lower Extremity Veins Duplex Complete (Bilateral) (05/14/2025 1:20 PM EDT) 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 No flow is seen in the proximal right popliteal artery. [facility] Anatomical Region Laterality Modality Ultrasound 05/14/2025 2:12 PM EDT Impressions 05/14/2025 2:22 PM EDT 1. No deep vein thrombosis in the visualized veins of either lower extremity. 2. No flow is seen in the proximal right popliteal artery. A clinically significant result was initiated on 05/14/2025 2:22 PM, Message ID [id number]. Narrative 05/14/2025 2:22 PM EDT US LOWER [...] was initiated on 05/14/2025 2:22 PM,Message ID [id number]. us Denise Weiner PA-C CV US VASCULAR [...] Months Insurance MEDICARE PART A & B [facility] MEDICARE PART A & B HEALTH MEDICARE PART A & B HEALTH MEDICARE PART A & B [place] MED[place] A & B [facility] A & B [facility] Care Teams Steel Burner Relationship Specialty Start Date End Date Pcp, Unknown PCP - General 06/08/25 Additional Source Comments The information contained in this document represents components of the legal health record. It is not the complete legal health record.[facility]
--- NOTE | 2025-07-28 18:57 | PC.NURSE ---
pt medicated per MAR
--- NOTE | 2025-07-28 20:00 | PC.NURSE ---
pt reports continued pin 04/05. questioning antibiotic tx, pt advised, awaiting new orders for pain, provider confirms no antibiotics at this time.
[2025-07-28 21:00] VITALS: BP 102/71; PULSE 75; RESP 18; TEMP 36.6; O2SAT 96
[2025-07-28] MEDS: Lactated Ringers 1,000 ML 999 ML IV (21:02)
--- NOTE | 2025-07-28 21:25 | PC.NURSE ---
awaiting medication (pepto bismol) from pharmacy.
--- NOTE | 2025-07-28 21:44 | PM.IMHP ---
History of Present Illness Date of Service: 07/28/25 Attending physician on admission: Ilia Mckeon Chief Complaint: abd pain Patient is a 49-year-old male with a past medical history significant for hemorrhagic proctitis, DVT on warfarin, seizure disorder, HIV, multiple abdominal surgeries including partial colectomy, appendectomy, cholecystectomy and abdominal aortic aneurysm repair, who presented to the ED due to left-sided abdominal pain with melena and rectal bleeding. The patient reports a few small bowel movements today but feels the urge like he needs to have a bowel movement but can not. He has been seen here multiple times recently and was diagnosed with Campylobacter colitis, treated with antibiotics. His pain improved over the past weekend but then returned again 2 days ago. He has some occasional nausea but no vomiting. No chest pain, shortness of breath, upper respiratory symptoms or urinary symptoms including frequency, urgency or dysuria. Review of Systems Constitutional: Constitutional: Denies body ache(s), Denies chills, Denies fatigue, Denies fever(s) and Denies headache(s) Eyes: Eyes: Denies change in vision ENT: Denies headache(s), Denies nasal congestion, Denies nasal discharge and Denies sore throat Cardiovascular: Cardiovascular: Denies chest pain, Denies rapid heart rate, Denies leg edema, Denies lightheadedness and Denies dyspnea Respiratory: Respiratory: Denies chest congestion, Denies cough, Denies dyspnea and Denies wheezing Gastrointestinal: Gastrointestinal: Reports as per HPI Genitourinary: Genitourinary: Denies dysuria and Denies urinary urgency Musculoskeletal: Musculoskeletal: Denies myalgias Integumentary/Breasts: Skin/Breast: Denies rash Neurologic: Denies confusion and Denies headache(s) Psychiatric: Psychiatric: Denies confusion Endocrine: Endocrine: Denies fatigue Hematologic/Lymphatic: Hematologic/Lymphatic: Denies easy bleeding Allergic/Immunologic: Allergic/Immunologic: Denies wheezing [facility] Medical History Seizure Popliteal artery aneurysm AAA (abdominal aortic aneurysm) Left sided abdominal pain COVID-19 DVT (deep venous thrombosis) Diabetes Seizure disorder HIV (human immunodeficiency virus infection) Functional capacity: independent ambulation Surgical History History of colon resection Status post cholecystectomy Status post laparoscopic appendectomy H/O fasciotomy S/P AAA (abdominal aortic aneurysm) repair S/P IVC filter Social History Household Members: Spouse and Family Housing: House Do you presently have visiting nurse or other home services: No Alcohol intake: never Comment: pt refuses high fall risk precautions Patient Tobacco Use Status: Former Tobacco user Smoked in Last 30 Days: No Advance Directives: Yes Advance Directives on File: Yes Advance Directives Date on File: 10/01/24 Do you have a plan to hurt others: No Plan Nutrition Risks: No Nutritional Risk service: No Meds Allergies Allergy/AdvReac Type Severity Reaction Status Date / Time influenza virus vaccine, Allergy Severe GUILLIAN Verified 07/28/25 09:49 specific (FLU VACCINE) BARRE HX. tramadol (TRAMADOL) Allergy Severe SEIZURES Verified 07/28/25 09:49 acetaminophen (From PERCOCET) Allergy Intermediate ITCHING Verified 07/28/25 09:49 carbamazepine (From TEGRETOL) Allergy Intermediate HALLUCINATI Verified 07/28/25 09:49 ONS lamotrigine (From LAMICTAL) Allergy Intermediate ITCHING Verified 07/28/25 09:49 metoclopramide (From REGLAN) Allergy Intermediate ITCHY Verified 07/28/25 09:49 oxycodone (From PERCOCET) Allergy Intermediate ITCHING Verified 07/28/25 09:49 azithromycin AdvReac Intermediate Unresponsiv Verified 07/28/25 09:49 e SEAFOOD Allergy Severe ANAPHYLAXIS Uncoded 07/24/25 12:20 Active Medications: Current Medications Calcium Carbonate (Calcium Carbonate 750 Mg Tab.Chew) 750 mg PO Q4H PRN PRN Reason: Heartburn Hydromorphone HCl (Hydromorphone Hcl 1 Mg/Ml Syringe) 0.5 mg IVPUSH Q4H PRN; Protocol PRN Reason: Pain, Severe (Pain Scale 7-10) Lactated Ringer's (Lr) 1,000 mls @ 999 mls/hr IV .Q1H1M HAYLEY Stop: 07/28/25 22:00 Last Admin: 07/28/25 21:02 Dose: 999 mls/hr Magnesium Hydroxide (Milk Of Magnesia 30 Ml Oral.Susp) 30 ml PO DAILY PRN PRN Reason: Constipation Melatonin (Melatonin 3 Mg Tablet) 6 mg PO BEDTIME PRN PRN Reason: Insomnia Morphine Sulfate (Morphine Sulfate 4 Mg/Ml Cartridge) 2 mg IVPUSH Q4H PRN; Protocol PRN Reason: Pain, Moderate(Pain Scale 4-6) Ondansetron HCl (Ondansetron Hcl 4 Mg/2 Ml Vial) 4 mg IVPUSH Q8H PRN PRN Reason: Nausea and Vomiting Sodium Chloride (0.9 % Sodium Chloride Flush 3 Ml Syringe) 3 ml IVFLUSH [facility] Home Medications ?Medication ?Instructions ?Recorded ?Confirmed ?Last Taken ?Type albuterol sulfate 90 mcg/actuation 2 inh inhalation Q4H PRN 06/26/24 09/25/24 Unknown History aerosol inhaler (Ventolin HFA) wheezing/sob atorvastatin 80 mg tablet 80 mg PO DAILY 06/26/24 07/28/25 1 Day Ago History ~07/27/25 cholecalciferol (vitamin D3) 50 50 mcg PO DAILY 06/26/24 09/25/24 09/25/24 History mcg (2,000 unit) capsule darunavir 800 mg-cobicistat 150 mg 1 tab PO DAILY 06/26/24 09/25/24 09/25/24 History tablet (Prezcobix) empagliflozin 25 mg tablet 25 mg PO DAILY 06/26/24 09/25/24 09/25/24 History (Jardiance) famotidine 20 mg tablet 40 mg PO DAILY 06/26/24 09/25/24 09/25/24 History lacosamide 100 mg tablet (Vimpat) 100 mg PO BID 06/26/24 07/28/25 07/27/25 History levothyroxine 25 mcg tablet 25 mcg PO DAILY@0600 06/26/24 09/25/24 09/25/24 History pantoprazole 40 mg tablet,delayed 40 mg PO DAILY@0630 06/26/24 07/28/25 07/27/25 History release raltegravir 600 mg tablet 600 mg PO BID 06/26/24 09/25/24 09/25/24 History (Isentress HD) tenofovir disoproxil fumarate 300 300 mg PO DAILY 06/26/24 09/25/24 09/25/24 History mg tablet trazodone 150 mg tablet 150 mg PO BEDTIME 06/26/24 07/28/25 07/27/25 History semaglutide 1 mg/dose (4 mg/3 mL) 1 mg subcut TU 09/25/24 09/25/24 09/23/24 History subcutaneous pen injector (Ozempic) warfarin 10 mg tablet 10 mg PO DAILY 09/25/24 09/25/24 09/25/24 History Physical Exam Vital Signs and Narrative: Vital Signs: Last Vital Signs Temp 98 F 07/28/25 21:00 Pulse 75 07/28/25 21:00 Resp 18 07/28/25 21:00 BP 102/71 07/28/25 21:00 Pulse Ox 96 07/28/25 21:00 O2 Del Method Room Air 07/28/25 21:00 BMI result Body Mass Index 26.6 General: AOx3, no acute distress Resp: CTA bilaterally CVS: S1, S2, RRR GI: +BS, tender LLQ, no distention Skin: Warm, dry Neuro: Cranial nerves II-XII grossly intact bilaterally. Motor grossly intact bilaterally Extremities: No pitting edema Psych: Appropriate affect Const: General: No confusion Orientation/consciousness: No confusion Neuro: General: No confusion Results Labs 07/28/25 10:48 07/28/25 10:48 Labs: Laboratory Results - last 24 hr 07/28/25 07/28/25 10:48 16:42 MCV 91.1 MCH 29.8 MCHC 32.8 RDW 14.6 Plt Count 167 MPV 9.9 Immature Gran % (Auto) 0.1 Neut % (Auto) 63.7 Lymph % (Auto) 27.2 [place] % (Auto) 8.0 Eos % (Auto) 0.6 Baso % (Auto) 0.4 Lymph # (Auto) 1.9 [place] # (Auto) 0.6 Eos # (Auto) 0.0 Baso # (Auto) 0.0 Abs Immat Gran (auto) 0.01 Absolute Neuts (auto) 4.5 Absolute Nucleated RBC 0.000 Nucleated RBC % (auto) 0.0 PT 23.1 H INR 1.9 H APTT 31.5 Anion Gap 13 Estim Creat Clear Calc 72.8 Estimated GFR > 60 Random Glucose 119 H Calcium 9.2 Magnesium 2.2 Total Bilirubin 0.3 AST 38 H ALT 32 Alkaline Phosphatase 106 Total Protein 9.0 H Albumin 4.4 Urine Color Yellow Urine Appearance Clear Urine pH 6.5 Ur Specific [place] 1.025 Urine Protein Trace Urine Glucose (UA) 100 H Urine Ketones Negative Urine Blood Negative Urine Nitrite Negative Ur Leukocyte Esterase Negative Assessment and Plan (1) Intractable abdominal pain: Status: Acute Plan Patient is a 49-year-old male with a past medical history significant for hemorrhagic proctitis, DVT on warfarin, seizure disorder, HIV, multiple abdominal surgeries including partial colectomy, appendectomy, cholecystectomy and abdominal aortic aneurysm repair, who presented to the ED due to left-sided abdominal pain with melena and rectal bleeding. returns to ED for intractable abd pain and multiple recent visits for campylobacter colitis. Intractable abdominal pain, recent Campylobacter colitis - 2 [address]s, last 1 with resolved colitis, KUB normal today - ED provider spoke to on-call GI who suggested no antibiotics, possible EGD/colonoscopy - GI consult - NPO after midnight - pain management with morphine and Dilaudid due to multiple allergies - monitor CBC and BMP - GI panel and C diff DM - SSI - jardiance History DVT (years ago) - hold warfarin due to impending procedures Seizure disorder - lacosamide HIV - continue home meds Med rec pending Full code VTE prophylaxis: Pneumoboots Patient with intractable abdominal pain with recent Campylobacter colitis, requiring admission for at least 2 midnight stay for specialist consultation and pain management. Quality Stroke Does the patient have a stroke diagnosis?: No VTE Prior VTE?: Yes VTE Risk Level:: Medical - moderate - high VTE Device Contraindication: N/A - Device Ordered VTE Drug Contraindication: Treatment Not Indicated
--- NOTE | 2025-07-28 22:50 | PC.NURSE ---
pt ambulated to bathroom with steady gate. pt reports abdominal pain.
[2025-07-29] VITALS (7 sets, daily range): BP systolic 104–117; BP diastolic 64–73; PULSE 62–75; RESP 16–20; TEMP 36.3–36.8; O2SAT 95–98; BMI 26.8
--- NOTE | 2025-07-29 00:30 | PC.NURSE ---
Pt given PRN Morphine 0.5 mL IV at 0015 for 8 pain, we were on downtime; downtime medication administration record filled out and witnessed by battery recharger.
[2025-07-29] MEDS: 0.9 % Sodium Chloride Flush 3 ML SYRINGE IVFLUSH ×4 (00:33→19:48)
[2025-07-29 04:27] LABS: MANUAL DIFF FLAG NO
[2025-07-29 04:30] LABS: Hematocrit 36.4 % (42.0-52.0); Hemoglobin 11.9 g/dl (14.0-18.0); Imm Gran Abs Auto 0.00 X10*3/uL (0.00-0.03); Imm Gran Pct Auto 0.0 % (0.0-0.4); Lymphocytes Absolute Auto 2.5 X10*3/uL (1.2-4.9); Mean Corpuscular HGB Conc 32.7 g/dl (31.0-36.0); Mean Corpuscular Hemoglobin 29.6 pg (27.0-33.0); Mean Corpuscular Volume 90.5 fL (80.0-98.0); NRBC Abs Auto 0.000 X10*3/uL (0.0-0.012); NRBC Pct Auto 0.0 /100WBC (0.0-0.2); Platelet Count 143 X10*3/uL (160-400); Red Blood Count 4.02 X10*6/uL (4.60-5.80); White Blood Count 5.1 X10*3/uL (4.8-10.8)
[2025-07-29 04:43] LABS: Anion Gap 10 (12-20); Blood Urea Nitrogen 10 mg/dL (9-16); Calcium 8.5 mg/dL (8.4-10.2); Carbon Dioxide 23 mmol/L (22-29); Chloride 109 mmol/L (96-108); Creatinine Clr Calc Pharmacy 87.3; Estimated Glomerular Filt Rate > 60; Potassium 3.9 mmol/L (3.3-5.1); Sodium 138 mmol/L (135-145)
--- NOTE | 2025-07-29 05:14 | PC.NURSE ---
pt medicated with PRN hydromorphone for 8/10 pain.
[2025-07-29 07:23] LABS: Glucose, Whole Blood 104 mg/dL (60-115)
--- NOTE | 2025-07-29 08:57 | HO.NURTONUR ---
PER MD: Patient is a 49-year-old male with a past medical history significant for hemorrhagic proctitis, DVT on warfarin, seizure disorder, HIV, multiple abdominal surgeries including partial colectomy, appendectomy, cholecystectomy and abdominal aortic aneurysm repair, who presented to the ED due to left-sided abdominal pain with melena and rectal bleeding. The patient reports a few small bowel movements today but feels the urge like he needs to have a bowel movement but can not. He has been seen here multiple times recently and was diagnosed with Campylobacter colitis, treated with antibiotics. His pain improved over the past weekend but then returned again 2 days ago. He has some occasional nausea but no vomiting. No chest pain, shortness of breath, upper respiratory symptoms or urinary symptoms including frequency, urgency or dysuria. PER RN: Alert and oriented, tamazight speaking, ambulatory IV: US guided in left upper arm NPO Pain: 9/10, just gave PRN morphine Admit: irretractable ABD pain GI consult Hospital bed Meds whole with water
[2025-07-29 09:56] LABS: Glucose, Whole Blood 108 mg/dL (60-115)
--- NOTE | 2025-07-29 10:15 | MHC.CM.PN ---
IMM DELIVERED. CM MET WITH PT AND GAS OR PETROLEUM OPERATOR AT BEDSIDE. PT LIVES WITH MOTHER AND PARTNER. PT IN ADULT F[employer]ER CARE PROGRAM, PARTNER IS CAREGIVER. PT USES A CANE AND WALKER PRN FOR MOBILITY. + HCP PCP AT [facility]. DP: HOME WITH RESUMPTION OF ADULT FOSTER PROGRAM. PARTNER WILL TRANSPORT. CM WILL CONTINUE TO FOLLOW FOR ANY CHANGE TO DC PLAN/NEEDS.
--- NOTE | 2025-07-29 10:46 | PHA.MEDREC ---
Addendum entered by Chevy Fay RPh 07/29/25 11:34: Reviewed by [facility] Original Note: Pharmacy Consult ? Medication Reconciliation Pharmacy has completed the medication reconciliation. Spoke with pt and he confirmed his medications. Pt confirmed he finished his Morphine regimen in the last few days, he has one day left of the Levofloxacin regimen, he confirmed his Ozempic once a week on Tuesdays (pt last took that 07/21), he confirmed his Warfarin 5mg tabs, but states ED provider here put that on hold yesterday (07/28); pt takes 1 tab (5mg) [id number] and 1 1/2 tab (7.5mg) Fridays, pt taking HIV meds, Isentress BID, Prezcobix QDand Tenofovir QD and confirmed those can be brought into our ED for him to continue here.
--- NOTE | 2025-07-29 11:13 | PM.GICN ---
History of Present Illness Data of Consult Service Date: 07/29/25 Primary Care Provider: Unknown Physician HPI Reason for consult: abn bowel habits 49-year-old male with a past medical history significant for hemorrhagic proctitis, DVT on warfarin, seizure disorder, HIV, multiple abdominal surgeries including partial colectomy (hx of perf diverticulitis), appendectomy, cholecystectomy and abdominal aortic aneurysm repair, who I am seeing for assessment for abn bowel habits. Patient was recently diagnosed with campylobacter and had x 2 rounds of azithromycin. He continues to have loose stools and has also noted left sided intermittent severe crampy abdominal pain with no obvious worsening or releiving factors. He also notes nausea but no vomiting. He denies rectal bleeding but sometimes says he sees dark colored stools. He denies taking nsaids, No chest pain, shortness of breath, upper respiratory symptoms or urinary symptoms including frequency, urgency or dysuria recent CT this admission, no colitis, stent noted, thickened-contracted stomach, nml pancreas Review of Systems Review of Systems: Constitutional : No Weight loss, No Fever, No Chills ENT/Mouth : No sore throat, No Rhinorrhea Eyes: No Swelling, No Redness Cardiovascular : No Chest Pain, No SOB, No Edema Respiratory : No Cough, No Sputum, No Wheezing Gastrointestinal : see HPI Genitourinary : NO Dysuria, No Urinary Frequency, No Hematuria, No Urgency Musculoskeletal : + joint pain, No Myalgias, No Joint Swelling Skin : No Skin Lesions, No rash Neuro : No Weakness, No Numbness, No Dizziness, No Headache Psych : No Anxiety/Panic, No Depression Heme/Lymph: No Bruising, No Lymphadenopathy Endocrine : No Polyuria, No Polydipsia All other systems reviewed and are negative. [facility] Past Medical History Medical History Seizure Popliteal artery aneurysm AAA (abdominal aortic aneurysm) Left sided abdominal pain COVID-19 DVT (deep venous thrombosis) Diabetes Seizure disorder HIV (human immunodeficiency virus infection) Family History Pertinent family history: denies FH of cRC or IBD Surgical History Surgical History History of colon resection Status post cholecystectomy Status post laparoscopic appendectomy H/O fasciotomy S/P AAA (abdominal aortic aneurysm) repair S/P IVC filter Social History Social History Household Members: Family Housing: House Do you presently have visiting nurse or other home services: No Alcohol intake: never Comment: pt refuses high fall risk precautions Patient Tobacco Use Status: Former Tobacco user Advance Directives Date on File: 10/01/24 service: No Meds Allergies Allergy/AdvReac Type Severity Reaction Status Date / Time influenza virus vaccine, Allergy Severe GUILLIAN Verified 07/28/25 09:49 specific (FLU VACCINE) BARRE HX. tramadol (TRAMADOL) Allergy Severe SEIZURES Verified 07/28/25 09:49 acetaminophen (From PERCOCET) Allergy Intermediate ITCHING Verified 07/28/25 09:49 carbamazepine (From TEGRETOL) Allergy Intermediate HALLUCINATI Verified 07/28/25 09:49 ONS lamotrigine (From LAMICTAL) Allergy Intermediate ITCHING Verified 07/28/25 09:49 metoclopramide (From REGLAN) Allergy Intermediate ITCHY Verified 07/28/25 09:49 oxycodone (From PERCOCET) Allergy Intermediate ITCHING Verified 07/28/25 09:49 azithromycin AdvReac Intermediate Unresponsiv Verified 07/28/25 09:49 e SEAFOOD Allergy Severe ANAPHYLAXIS Uncoded 07/24/25 12:20 Active Medications: Current Medications Atorvastatin Calcium (Atorvastatin Calcium 80 Mg Tablet) 80 mg PO BEDTIME HAYLEY Last Admin: 07/28/25 23:12 Dose: 80 mg Calcium Carbonate (Calcium Carbonate 750 Mg Tab.Chew) 750 mg PO Q4H PRN PRN Reason: Heartburn Dextrose (Dextrose 50 % 25 Gm/50 Ml Syringe) 25 gm IVPUSH Q15M PRN; Protocol PRN Reason: per Hypoglycemia Standing Ord. Docusate Sodium (Docusate Sodium 100 Mg Capsule) 100 mg PO BEDTIME PRN PRN Reason: Constipation Last Admin: 07/28/25 23:12 Dose: 100 mg Glucose (Glucose Gel 15 Gm Gel..Gram.) 15 gm PO Q15M PRN; Protocol PRN Reason: per Hypoglycemia Standing Ord. Hydromorphone HCl (Hydromorphone Hcl 1 Mg/Ml Syringe) 0.5 mg IVPUSH Q4H PRN; Protocol PRN Reason: Pain, Severe (Pain Scale 7-10) Last Admin: 07/29/25 05:11 Dose: 0.5 mg Insulin Human Lispro (Insulin Lispro 100 Unit/Ml 3 Ml Vial) 0 unit [facility]; Protocol Last Admin: 07/29/25 07:13 Dose: Not Given Lacosamide (Lacosamide 100 Mg Tablet) 100 mg PO BID [facility] Last Admin: 07/29/25 08:53 Dose: 100 mg Magnesium Hydroxide (Milk Of Magnesia 30 Ml Oral.Susp) 30 ml PO DAILY PRN PRN Reason: Constipation Melatonin (Melatonin 3 Mg Tablet) 6 mg PO BEDTIME PRN PRN Reason: Insomnia Morphine Sulfate (Morphine Sulfate 4 Mg/Ml Cartridge) 2 mg IVPUSH Q4H PRN; Protocol PRN Reason: Pain, Moderate(Pain Scale 4-6) Last Admin: 07/29/25 08:53 Dose: 2 mg Ondansetron HCl (Ondansetron Hcl 4 Mg/2 Ml Vial) 4 mg IVPUSH Q8H PRN PRN Reason: Nausea and Vomiting Sodium Chloride (0.9 % Sodium Chloride Flush 3 Ml Syringe) 3 ml IVFLUSH QSHIFT [facility] Last Admin: 07/29/25 07:13 Dose: 3 ml Trazodone HCl (Trazodone Hcl 50 Mg Tablet) 150 mg PO BEDTIME [facility] Last Admin: 07/28/25 23:12 Dose: 150 mg Home Medications ?Medication ?Instructions ?Recorded ?Confirmed ?Last Taken ?Type albuterol sulfate 90 mcg/actuation 2 inh inhalation Q4H PRN 06/26/24 07/29/25 07/27/25 History aerosol inhaler (Ventolin HFA) wheezing/sob atorvastatin 80 mg tablet 80 mg PO DAILY 06/26/24 07/29/25 07/27/25 History cholecalciferol (vitamin D3) 50 50 mcg PO DAILY 06/26/24 07/29/25 07/27/25 History mcg (2,000 unit) capsule darunavir 800 mg-cobicistat 150 mg 1 tab PO DAILY 06/26/24 07/29/25 07/27/25 History tablet (Prezcobix) empagliflozin 25 mg tablet 25 mg PO DAILY 06/26/24 07/29/25 07/27/25 History (Jardiance) famotidine 20 mg tablet 20 mg PO BID 06/26/24 07/29/25 07/27/25 History lacosamide 100 mg tablet (Vimpat) 100 mg PO BID 06/26/24 07/29/25 07/27/25 History levothyroxine 25 mcg tablet 25 mcg PO DAILY@0600 06/26/24 07/29/25 07/27/25 History pantoprazole 40 mg tablet,delayed 40 mg PO DAILY@0630 06/26/24 07/29/25 07/27/25 History release raltegravir 600 mg tablet 600 mg PO BID 06/26/24 07/29/25 07/27/25 History (Isentress HD) tenofovir disoproxil fumarate 300 300 mg PO DAILY 06/26/24 07/29/25 07/27/25 History mg tablet trazodone 150 mg tablet 150 mg PO BEDTIME 06/26/24 07/29/25 07/27/25 History azelastine 0.05 % eye drops 1 drp ophthalmic-Left BID PRN Dry 07/29/25 07/29/25 07/27/25 History Eye(S) semaglutide 2 mg/dose (8 mg/3 mL) 2 mg subcut TU 07/29/25 07/29/25 07/21/25 History subcutaneous pen injector (Ozempic) warfarin 5 mg tablet 5 mg PO SUMOTUWETHSA@1800 07/29/25 07/29/25 07/27/25 History warfarin 5 mg tablet 7.5 mg PO FR@1800 07/29/25 07/29/25 07/24/25 History Physical Exam Exam: Exam: EXAM: GENERAL: The patient is well developed and nontoxic. VITAL SIGNS:see workflow HEENT: Nonicteric sclerae, PERRLA, EOMI. Oropharynx clear. Moist mucous membranes. Conjunctivae appear well perfused. No thyroid mass. CHEST: Chest wall is nontender. HEART: Regular rate and rhythm without murmurs. LUNGS: Clear to auscultation bilaterally. ABDOMEN: Soft, positive bowel sounds, nontender, no organomegaly.no flank tenderness--scars noted --mild left sided tenderness SKIN: No rash, no excessive bruising, petechiae, or purpura. NEUROLOGIC: Cranial nerves II-XII intact without motor/sensory deficit. Psych: normal affect Vital Signs: Vital Signs: Last Vital Signs Temp 97.4 F 07/29/25 09:44 Pulse 67 07/29/25 09:44 Resp 18 07/29/25 09:44 BP 104/69 07/29/25 09:44 Pulse Ox 96 07/29/25 09:44 O2 Del Method Room Air 07/29/25 09:44 BMI result Body Mass Index 26.8 Results Labs 07/29/25 04:18 07/29/25 04:18 Labs: Short CBC 07/28/25 07/29/25 Range/Units 10:48 04:18 WBC 7.0 5.1 (4.8-10.8) X10*3/uL Hgb 13.4 L 11.9 L (14.0-18.0) g/dl Hct 40.9 L 36.4 L (42.0-52.0) % Plt Count 167 143 L (160-400) X10*3/uL BMP 07/28/25 07/29/25 10:48 04:18 Sodium 140 138 Potassium 4.3 3.9 Chloride 108 109 H Carbon Dioxide 23 23 BUN 12 10 Creatinine 1.20 1.00 Calcium 9.2 8.5 D Liver Function 07/28/25 Range/Units 10:48 Total Bilirubin 0.3 (0.0-1.0) mg/dL AST 38 H (5-37) U/L ALT 32 (0-40) U/L Alkaline Phosphatase 106 (39-117) U/L Albumin 4.4 (3.5-5.0) g/dL Urine 07/28/25 Range/Units 16:42 Urine Color Yellow Urine Appearance Clear Urine pH 6.5 (5.0-9.0) Ur Specific [place] 1.025 (1.005-1.025) Urine Protein Trace (Neg-Trace) mg/dL Urine Glucose (UA) 100 H (Negative) mg/dL Assessment and Plan (1) Abnormal bowel habits: Status: Acute Plan 1/ Abn bowel habits with abdo pain and nausea, recent campylobacter, also hx of HIV on rx -latest CD4 count pending ddx: PUD, gastritis, microscopic colitis, IBD, bile acid malabsorption PLAN: 1/ EGD and colo tomorrow for further assessment with bx testing Procedures Date of Service Date of Service: 07/29/25
--- NOTE | 2025-07-29 11:27 | HO.ANESPROP2 ---
Documented by User: Kaylin Davis NP 07/29/25 11:43 HPI - Anesthesia Eval Consult details Narrative: 49 yr old male for upper endoscopy, colonoscopy s/p flexible sigmoidoscopy with TIVA 09/2024 H/O seizures DVT on warfarin: INR 1.9 on 07/28/25; s/p IVC filter HIV on ART H/O AAA repair: updated CTA noted below PMFSH Active Problems Active Problems: All Active Problems Intractable abdominal pain (Acute) Abdominal pain (Acute) Hemorrhagic proctitis (Acute) DVT (deep venous thrombosis) (Acute) Seizure disorder (Acute) HIV (human immunodeficiency virus infection) (Acute) Past Medical History Medical History Seizure Popliteal artery aneurysm AAA (abdominal aortic aneurysm) Left sided abdominal pain COVID-19 DVT (deep venous thrombosis) Diabetes Seizure disorder HIV (human immunodeficiency virus infection) Functional capacity: independent ambulation Family History Family history of problems with anesthesia: No Surgical History Surgical History History of colon resection Status post cholecystectomy Status post laparoscopic appendectomy H/O fasciotomy S/P AAA (abdominal aortic aneurysm) repair S/P IVC filter History of Problems with Anesthesia: No Social History Social History Household Members: Family Housing: House Are you a primary wild animal caretaker to a significant other at home: No Do you presently have visiting nurse or other home services: No Alcohol intake: never Comment: pt refuses high fall risk precautions Patient Tobacco Use Status: Former Tobacco user Advance Directives Date on File: 10/01/24 service: No Meds Allergies Allergy/AdvReac Type Severity Reaction Status Date / Time influenza virus vaccine, Allergy Severe GUILLIAN Verified 07/28/25 09:49 specific (FLU VACCINE) BARRE HX. tramadol (TRAMADOL) Allergy Severe SEIZURES Verified 07/28/25 09:49 acetaminophen (From PERCOCET) Allergy Intermediate ITCHING Verified 07/28/25 09:49 carbamazepine (From TEGRETOL) Allergy Intermediate HALLUCINATI Verified 07/28/25 09:49 ONS lamotrigine (From LAMICTAL) Allergy Intermediate ITCHING Verified 07/28/25 09:49 metoclopramide (From REGLAN) Allergy Intermediate ITCHY Verified 07/28/25 09:49 oxycodone (From PERCOCET) Allergy Intermediate ITCHING Verified 07/28/25 09:49 azithromycin AdvReac Intermediate Unresponsiv Verified 07/28/25 09:49 e SEAFOOD Allergy Severe ANAPHYLAXIS Uncoded 07/24/25 12:20 Active Medications: Current Medications Atorvastatin Calcium (Atorvastatin Calcium 80 Mg Tablet) 80 mg PO BEDTIME [facility] Last Admin: 07/28/25 23:12 Dose: 80 mg Calcium Carbonate (Calcium Carbonate 750 Mg Tab.Chew) 750 mg PO Q4H PRN PRN Reason: Heartburn Dextrose (Dextrose 50 % 25 Gm/50 Ml Syringe) 25 gm IVPUSH Q15M PRN; Protocol PRN Reason: per Hypoglycemia Standing Ord. Docusate Sodium (Docusate Sodium 100 Mg Capsule) 100 mg PO BEDTIME PRN PRN Reason: Constipation Last Admin: 07/28/25 23:12 Dose: 100 mg Glucose (Glucose Gel 15 Gm Gel..Gram.) 15 gm PO Q15M PRN; Protocol PRN Reason: per Hypoglycemia Standing Ord. Hydromorphone HCl (Hydromorphone Hcl 1 Mg/Ml Syringe) 0.5 mg IVPUSH Q4H PRN; Protocol PRN Reason: Pain, Severe (Pain Scale 7-10) Last Admin: 07/29/25 05:11 Dose: 0.5 mg Insulin Human Lispro (Insulin Lispro 100 Unit/Ml 3 Ml Vial) 0 unit SUBCUT QIDACHS [facility]; Protocol Last Admin: 07/29/25 07:13 Dose: Not Given Lacosamide (Lacosamide 100 Mg Tablet) 100 mg PO BID [facility] Last Admin: 07/29/25 08:53 Dose: 100 mg Magnesium Hydroxide (Milk Of Magnesia 30 Ml Oral.Susp) 30 ml PO DAILY PRN PRN Reason: Constipation Melatonin (Melatonin 3 Mg Tablet) 6 mg PO BEDTIME PRN PRN Reason: Insomnia Morphine Sulfate (Morphine Sulfate 4 Mg/Ml Cartridge) 2 mg IVPUSH Q4H PRN; Protocol PRN Reason: Pain, Moderate(Pain Scale 4-6) Last Admin: 07/29/25 08:53 Dose: 2 mg Ondansetron HCl (Ondansetron Hcl 4 Mg/2 Ml Vial) 4 mg IVPUSH Q8H PRN PRN Reason: Nausea and Vomiting Sodium Chloride (0.9 % Sodium Chloride Flush 3 Ml Syringe) 3 ml IVFLUSH QSHIFT [facility] Last Admin: 07/29/25 07:13 Dose: 3 ml Trazodone HCl (Trazodone Hcl 50 Mg Tablet) 150 mg PO BEDTIME [facility] Last Admin: 07/28/25 23:12 Dose: 150 mg Home Medications ?Medication ?Instructions ?Recorded ?Confirmed ?Last Taken ?Type albuterol sulfate 90 mcg/actuation 2 inh inhalation Q4H PRN 06/26/24 07/29/25 07/27/25 History aerosol inhaler (Ventolin HFA) wheezing/sob atorvastatin 80 mg tablet 80 mg PO DAILY 06/26/24 07/29/25 07/27/25 History cholecalciferol (vitamin D3) 50 50 mcg PO DAILY 06/26/24 07/29/25 07/27/25 History mcg (2,000 unit) capsule darunavir 800 mg-cobicistat 150 mg 1 tab PO DAILY 06/26/24 07/29/25 07/27/25 History tablet (Prezcobix) empagliflozin 25 mg tablet 25 mg PO DAILY 06/26/24 07/29/25 07/27/25 History (Jardiance) famotidine 20 mg tablet 20 mg PO BID 06/26/24 07/29/25 07/27/25 History lacosamide 100 mg tablet (Vimpat) 100 mg PO BID 06/26/24 07/29/25 07/27/25 History levothyroxine 25 mcg tablet 25 mcg PO DAILY@0600 06/26/24 07/29/25 07/27/25 History pantoprazole 40 mg tablet,delayed 40 mg PO DAILY@0630 06/26/24 07/29/25 07/27/25 History release raltegravir 600 mg tablet 600 mg PO BID 06/26/24 07/29/25 07/27/25 History (Isentress HD) tenofovir disoproxil fumarate 300 300 mg PO DAILY 06/26/24 07/29/25 07/27/25 History mg tablet trazodone 150 mg tablet 150 mg PO BEDTIME 06/26/24 07/29/25 07/27/25 History azelastine 0.05 % eye drops 1 drp ophthalmic-Left BID PRN Dry 07/29/25 07/29/2525 History Eye(S) semaglutide 2 mg/dose (8 mg/3 mL) 2 mg subcut TU 07/29/25 07/29/25 07/21/25 History subcutaneous pen injector (Ozempic) warfarin 5 mg tablet 5 mg PO SUMOTUWETHSA@1800 07/29/25 07/29/25 07/27/25 History warfarin 5 mg tablet 7.5 mg PO FR@1800 07/29/25 07/29/25 07/24/25 History Exam Height,Weight and Vital Signs: Height 5 ft 9 in Weight 82.4 kg Last Vital Signs Temp 97.4 F 07/29/25 09:44 Pulse 67 07/29/25 09:44 Resp 18 07/29/25 09:44 BP 104/69 07/29/25 09:44 Pulse Ox 96 07/29/25 09:44 O2 Del Method Room Air 07/29/25 09:44 Pertinent Lab Results Pertinent Lab Results: Laboratory Tests 07/28/25 07/28/25 07/29/25 10:48 16:42 04:18 WBC 7.0 5.1 RBC 4.49 L 4.02 L Hgb 13.4 L 11.9 L Hct 40.9 L 36.4 L MCV 91.1 90.5 MCH 29.8 29.6 MCHC 32.8 32.7 RDW 14.6 14.1 Plt Count 167 143 L MPV 9.9 9.0 L Immature Gran % (Auto) 0.1 0.0 Neut % (Auto) 63.7 38.0 L Lymph % (Auto) 27.2 49.7 H [place] % (Auto) 8.0 9.9 Eos % (Auto) 0.6 1.8 Baso % (Auto) 0.4 0.6 Lymph # (Auto) 1.9 2.5 [place] # (Auto) 0.6 0.5 Eos # (Auto) 0.0 0.1 Baso # (Auto) 0.0 0.0 Abs Immat Gran (auto) 0.01 0.00 Absolute Neuts (auto) 4.5 1.9 L Absolute Nucleated RBC 0.000 0.000 Nucleated RBC % (auto) 0.0 0.0 PT 23.1 H INR 1.9 H APTT 31.5 Sodium 140 138 Potassium 4.3 3.9 Chloride 108 109 H Carbon Dioxide 23 23 Anion Gap 13 10 L BUN 12 10 Creatinine 1.20 1.00 Estim Creat Clear Calc 72.8 87.3 Estimated GFR > 60 > 60 POC Glucose Random Glucose 119 H 107 Calcium 9.2 8.5 D Magnesium 2.2 Total Bilirubin 0.3 AST 38 H ALT 32 Alkaline Phosphatase 106 Total Protein 9.0 H Albumin 4.4 Urine Color Yellow Urine Appearance Clear Urine pH 6.5 Ur Specific [place] 1.025 Urine Protein Trace Urine Glucose (UA) 100 H Urine Ketones Negative Urine Blood Negative Urine Nitrite Negative Ur Leukocyte Esterase Negative 07/29/25 07/29/25 07:12 09:53 WBC RBC Hgb Hct MCV MCH MCHC RDW Plt Count MPV Immature Gran % (Auto) Neut % (Auto) Lymph % (Auto) [place] % (Auto) Eos % (Auto) Baso % (Auto) Lymph # (Auto) [place] # (Auto) Eos # (Auto) Baso # (Auto) Abs Immat Gran (auto) Absolute Neuts (auto) Absolute Nucleated RBC Nucleated RBC % (auto) PT INR APTT Sodium Potassium Chloride Carbon Dioxide Anion Gap BUN Creatinine Estim Creat Clear Calc Estimated GFR POC Glucose 104 108 Random Glucose Calcium Magnesium Total Bilirubin AST ALT Alkaline Phosphatase Total Protein Albumin Urine Color Urine Appearance Urine pH Ur Specific [place] Urine Protein Urine Glucose (UA) Urine Ketones Urine Blood Urine Nitrite Ur Leukocyte Esterase Narrative Narrative: EKG 06/2025 Vent. Rate : 76 BPM Atrial Rate : 76 BPM P-R Int : 126 ms QRS Dur : 92 ms QT Int : 402 ms P-R-T Axes : -23 20 -20 degrees QTcB Int : 452 ms Normal sinus rhythm with sinus arrhythmia Nonspecific T wave abnormality Abnormal ECG When compared with ECG of 16-Jun-2025 15:47, No significant change was found Bilateral LE US 07/23/25 US Lower Extremity Veins Duplex Complete (Bilateral) Final Result No deep vein thrombosis in the visualized veins of either lower extremity. ATTESTATION: I, Guy Rider as teaching physician, have reviewed the images for this case and if necessary edited the report originally created by Izabel Martines MD. chest abdomen pelvis 06/2025 IMPRESSION: ? 1. Aortoiliac endograft is noted, unremarkable. Otherwise unremarkable CTA. No acute vascular findings. 2. Bladder wall thickening. Correlate for cystitis. Otherwise no acute thoracic or abdominopelvic findings. Assessment and Plan Final Anesthetic Review Family History of Problems with Anesthesia: No History of Problems with Anesthesia: No Documented by User: Nilda Simeon MD 07/30/25 09:31 [facility] Past Medical History Medical History Seizure Popliteal artery aneurysm AAA (abdominal aortic aneurysm) Left sided abdominal pain COVID-19 DVT (deep venous thrombosis) Diabetes Seizure disorder HIV (human immunodeficiency virus infection) Surgical History Surgical History History of colon resection Status post cholecystectomy Status post laparoscopic appendectomy H/O fasciotomy S/P AAA (abdominal aortic aneurysm) repair S/P IVC filter Social History Social History Household Members: Family Housing: House Are you a primary wild animal caretaker to a significant other at home: No Do you presently have visiting nurse or other home services: No Alcohol intake: never Comment: pt refuses high fall risk precautions Patient Tobacco Use Status: Former Tobacco user Advance Directives Date on File: 10/01/24 service: No Meds Allergies Allergy/AdvReac Type Severity Reaction Status Date / Time influenza virus vaccine, Allergy Severe GUILLIAN Verified 07/28/25 09:49 specific (FLU VACCINE) BARRE HX. tramadol (TRAMADOL) Allergy Severe SEIZURES Verified 07/28/25 09:49 acetaminophen (From PERCOCET) Allergy Intermediate ITCHING Verified 07/28/25 09:49 carbamazepine (From TEGRETOL) Allergy Intermediate HALLUCINATI Verified 07/28/25 09:49 ONS lamotrigine (From LAMICTAL) Allergy Intermediate ITCHING Verified 07/28/25 09:49 metoclopramide (From REGLAN) Allergy Intermediate ITCHY Verified 07/28/25 09:49 oxycodone (From PERCOCET) Allergy Intermediate ITCHING Verified 07/28/25 09:49 azithromycin AdvReac Intermediate Unresponsiv Verified 07/28/25 09:49 e SEAFOOD Allergy Severe ANAPHYLAXIS Uncoded 07/24/25 12:20 Home Medications ?Medication ?Instructions ?Recorded ?Confirmed ?Last Taken ?Type albuterol sulfate 90 mcg/actuation 2 inh inhalation Q4H PRN 06/26/24 07/29/25 07/27/25 History aerosol inhaler (Ventolin HFA) wheezing/sob atorvastatin 80 mg tablet 80 mg PO DAILY 06/26/24 07/29/25 07/27/25 History cholecalciferol (vitamin D3) 50 50 mcg PO DAILY 06/26/24 07/29/25 07/27/25 History mcg (2,000 unit) capsule darunavir 800 mg-cobicistat 150 mg 1 tab PO DAILY 06/26/24 07/29/25 07/27/25 History tablet (Prezcobix) empagliflozin 25 mg tablet 25 mg PO DAILY 06/26/24 07/29/25 07/27/25 History (Jardiance) famotidine 20 mg tablet 20 mg PO BID 06/26/24 07/29/25 07/27/25 History lacosamide 100 mg tablet (Vimpat) 100 mg PO BID 06/26/24 07/29/25 07/27/25 History levothyroxine 25 mcg tablet 25 mcg PO DAILY@0600 06/26/24 07/29/25 07/27/25 History pantoprazole 40 mg tablet,delayed 40 mg PO DAILY@0630 06/26/24 07/29/25 07/27/25 History release raltegravir 600 mg tablet 600 mg PO BID 06/26/24 07/29/25 07/27/25 History (Isentress HD) tenofovir disoproxil fumarate 300 300 mg PO DAILY 06/26/24 07/29/25 07/27/25 History mg tablet trazodone 150 mg tablet 150 mg PO BEDTIME 06/26/24 07/29/25 07/27/25 History azelastine 0.05 % eye drops 1 drp ophthalmic-Left BID PRN Dry 07/29/25 07/29/25 07/27/25 History Eye(S) semaglutide 2 mg/dose (8 mg/3 mL) 2 mg subcut TU 07/29/25 07/29/25 07/21/25 History subcutaneous pen injector (Ozempic) warfarin 5 mg tablet 5 mg PO SUMOTUWETHSA@1800 07/29/25 07/29/25 07/27/25 History warfarin 5 mg tablet 7.5 mg PO FR@1800 07/29/25 07/29/25 07/24/25 History Exam Airway Mallampati Class: II TM Dist: >3cm Neck ROM: Full Loose/Missing/Broken Teeth: No Heart: RRR Lungs: CTA Assessment and Plan Assessment Anesthesia Assessment: Anesthesia Plan Discussed and Chart Reviewed Final Anesthetic Review NPO: Yes ASA Class: III Final Preanesthetic Review: Meds/Allgs Chart Reviewed, Consent Obtained/Reviewed and Anes Risks/Benef Reviewed Patient Risk: Intermediate Procedure Risk: Intermediate Anesthetic Plan Anesthetic Plan: MAC: Disposition: Standard PACU
[2025-07-29 11:31] LABS: Glucose, Whole Blood 113 mg/dL (60-115)
--- NOTE | 2025-07-29 14:24 | PC.NURSE ---
Waiting for patient to get done showering to give meds, tell to bring meds from home.
--- NOTE | 2025-07-29 14:47 | PC.NURSE ---
Patient educated to bring in Meds from Home
--- NOTE | 2025-07-29 15:02 | P.PNIM_ITS ---
Subjective Subjective Date of Service: 07/29/25 Interval History: Patient seen examined at bedside this morning, patient mentions that he is having abdominal pain, spoke with Gastroenterology, with plans on EGD/colonoscopy to be done tomorrow. Review of Systems Review of Systems: Yes all other systems are reviewed and are negative Physical Exam 2 Exam: Exam: General: AxOx3, in pain Head: AT/NC ENT: Moist mucous membranes Neck: supple CVS; RRR, S1 S2 normal Lungs: Clear bilateral breath sounds, no wheezes or crackles Abd: Soft, left lower and upper quadrant tenderness to palpation Ext: No edema and no calf tenderness MSK: moving all 4 limbs Skin: No cyanosis or edema Psych: Cooperative with exam Neurology: no focal deficit Vital Signs: Vital Signs: Last Vital Signs Temp 97.4 F 07/29/25 09:44 Pulse 67 07/29/25 09:44 Resp 18 07/29/25 09:44 BP 104/69 07/29/25 09:44 Pulse Ox 96 07/29/25 09:44 O2 Del Method Room Air 07/29/25 09:44 BMI result Body Mass Index 26.8 Objective Data Active Medications Albuterol Sulfate (Albuterol Sulfate 90 Mcg 8 Gm Inhaler) 2 puff INHALE Q4H PRN PRN Reason: wheezing/sob Atorvastatin Calcium (Atorvastatin Calcium 80 Mg Tablet) 80 mg PO BEDTIME [facility] Last Admin: 07/28/25 23:12 Dose: 80 mg Documented By: PRINCE Calcium Carbonate (Calcium Carbonate 750 Mg Tab.Chew) 750 mg PO Q4H PRN PRN Reason: Heartburn Dextrose (Dextrose 50 % 25 Gm/50 Ml Syringe) 25 gm IVPUSH Q15M PRN; Protocol PRN Reason: per Hypoglycemia Standing Ord. Docusate Sodium (Docusate Sodium 100 Mg Capsule) 100 mg PO BEDTIME PRN PRN Reason: Constipation Last Admin: 07/28/25 23:12 Dose: 100 mg Documented By: PRINCE Glucose (Glucose Gel 15 Gm Gel..Gram.) 15 gm PO Q15M PRN; Protocol PRN Reason: per Hypoglycemia Standing Ord. Hydromorphone HCl (Hydromorphone Hcl 1 Mg/Ml Syringe) 0.5 mg IVPUSH Q4H PRN; Protocol PRN Reason: Pain, Severe (Pain Scale 7-10) Last Admin: 07/29/25 12:00 Dose: 0.5 mg Documented By: KEEGAN Insulin Human Lispro (Insulin Lispro 100 Unit/Ml 3 Ml Vial) 0 unit SUBCUT QIDACHS [facility]; Protocol Last Admin: 07/29/25 11:50 Dose: Not Given Documented By: KEEGAN Non-Admin Reason: No Insulin Coverage Lacosamide (Lacosamide 100 Mg Tablet) 100 mg PO BID [facility] Last Admin: 07/29/25 08:53 Dose: 100 mg Documented By: [place] Levothyroxine Sodium (Levothyroxine Sodium 25 Mcg Tablet) 25 mcg PO DAILY@0600 [facility] Magnesium Hydroxide (Milk Of Magnesia 30 Ml Oral.Susp) 30 ml PO DAILY PRN PRN Reason: Constipation Melatonin (Melatonin 3 Mg Tablet) 6 mg PO BEDTIME PRN PRN Reason: Insomnia Morphine Sulfate (Morphine Sulfate 4 Mg/Ml Cartridge) 2 mg IVPUSH Q4H PRN; Protocol PRN Reason: Pain, Moderate(Pain Scale 4-6) Last Admin: 07/29/25 08:53 Dose: 2 mg Documented By: [place] Non-Formulary Medication (Azelastine) 1 drop EYE-LEFT BID PRN PRN Reason: Dry Eye(S) Non-Formulary Medication (Darunavir-Cobicistat [Prezcobix]) 1 tab PO DAILY [facility] Non-Formulary Medication (Raltegravir [Isentress Hd]) 600 mg PO BID [facility] Ondansetron HCl (Ondansetron Hcl 4 Mg/2 Ml Vial) 4 mg IVPUSH Q8H PRN PRN Reason: Nausea and Vomiting Polyethylene Glycol/Electrolytes (Peg 3350/Na Sulf,Bicarb,Cl/Kcl 4,000 Ml Soln.Recon) 4,000 ml PO ONCE ONE Stop: 07/29/25 18:01 Sodium Chloride (0.9 % Sodium Chloride Flush 3 Ml Syringe) 3 ml IVFLUSH QSHIFT [facility] Last Admin: 07/29/25 12:00 Dose: 3 ml Documented By: KEEGAN Tenofovir Disoproxil Fumarate (Tenofovir Disoproxil Fumarate 300 Mg Tablet) 300 mg PO DAILY [facility] Trazodone HCl (Trazodone Hcl 50 Mg Tablet) 150 mg PO BEDTIME [facility] Last Admin: 07/28/25 23:12 Dose: 150 mg Documented By: PRINCE Vitamin D (Cholecalciferol (Vitamin D3) 25 Mcg Tablet) 50 mcg PO DAILY [facility] Labs 07/29/25 04:18 07/29/25 04:18 Labs: Laboratory Results - last 24 hr 07/28/25 07/28/25 07/29/25 10:48 16:42 04:18 MCV 90.5 MCH 29.6 MCHC 32.7 RDW 14.1 Plt Count 143 L MPV 9.0 L Immature Gran % (Auto) 0.0 Neut % (Auto) 38.0 L Lymph % (Auto) 49.7 H [place] % (Auto) 9.9 Eos % (Auto) 1.8 Baso % (Auto) 0.6 Lymph # (Auto) 2.5 [place] # (Auto) 0.5 Eos # (Auto) 0.1 Baso # (Auto) 0.0 Abs Immat Gran (auto) 0.00 Absolute Neuts (auto) 1.9 L Absolute Nucleated RBC 0.000 Nucleated RBC % (auto) 0.0 PT 23.1 H INR 1.9 H Anion Gap 10 L Estim Creat Clear Calc 87.3 Estimated GFR > 60 POC Glucose Random Glucose 107 Calcium 8.5 D Urine Color Yellow Urine Appearance Clear Urine pH 6.5 Ur Specific [place] 1.025 Urine Protein Trace Urine Glucose (UA) 100 H Urine Ketones Negative Urine Blood Negative Urine Nitrite Negative Ur Leukocyte Esterase Negative 07/29/25 07/29/25 07/29/25 07:12 09:53 11:26 MCV MCH MCHC RDW Plt Count MPV Immature Gran % (Auto) Neut % (Auto) Lymph % (Auto) [place] % (Auto) Eos % (Auto) Baso % (Auto) Lymph # (Auto) [place] # (Auto) Eos # (Auto) Baso # (Auto) Abs Immat Gran (auto) Absolute Neuts (auto) Absolute Nucleated RBC Nucleated RBC % (auto) PT INR Anion Gap Estim Creat Clear Calc Estimated GFR POC Glucose 104 108 113 Random Glucose Calcium Urine Color Urine Appearance Urine pH Ur Specific [place] Urine Protein Urine Glucose (UA) Urine Ketones Urine Blood Urine Nitrite Ur Leukocyte Esterase Assessment and Plan (1) HIV (human immunodeficiency virus infection): Status: Acute (2) Seizure disorder: Status: Acute (3) Abdominal pain: Status: Acute (4) Immunodeficiency due to drug therapy: Status: Acute Plan Assessment: 49-year-old male with a past medical history significant for hemorrhagic proctitis, DVT on warfarin, seizure disorder, HIV, multiple abdominal surgeries including partial colectomy, appendectomy, cholecystectomy and abdominal aortic aneurysm repair, who presented to the ED due to left-sided abdominal pain with melena and rectal bleeding. returns to ED for intractable abd pain and multiple recent visits for campylobacter colitis. 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 ?All pertinent clinical documents, images and labs were reviewed. ? DISCLAIMER: This document was created using voice recognition software. ?Any mistakes in the prescription are unintentional. ?An attempt was made to focus for accuracy, but to expedite availability, some errors may persist. ?Please contact with any need for correction or further clarification Total time managing care of this patient today: 55 minutes. Quality Stroke Does the patient have a stroke diagnosis?: No VTE Prior VTE?: Yes VTE Risk Level:: Medical - moderate - high VTE Device Contraindication: N/A - Device Ordered VTE Drug Contraindication: Treatment Not Indicated
--- NOTE | 2025-07-29 15:10 | PC.NURSE ---
Waiting for [employer] to load Meds.
[2025-07-29 15:40] LABS: INTERNATIONAL NORM RATIO 2.1 (0.9-1.1); Prothrombin Time 24.7 SEC (11.2-13.5)
[2025-07-29 16:18] LABS: Glucose, Whole Blood 126 mg/dL (60-115)
[2025-07-29] MEDS: PEG 3350/Na Sulf,Bicarb,Cl/KCL 4,000 ML SOLN.RECON 4000 ML PO (19:41)
[2025-07-29 21:00] LABS: Glucose, Whole Blood 98 mg/dL (60-115)
[2025-07-30] VITALS (9 sets, daily range): BP systolic 76–120; BP diastolic 39–76; PULSE 65–102; RESP 16–18; TEMP 36.4–37.7; O2SAT 93–99
[2025-07-30 05:26] LABS: MANUAL DIFF FLAG NO
[2025-07-30 05:39] LABS: INTERNATIONAL NORM RATIO 1.8 (0.9-1.1); Prothrombin Time 22.2 SEC (11.2-13.5)
[2025-07-30 05:43] LABS: Anion Gap 13 (12-20); Blood Urea Nitrogen 12 mg/dL (9-16); Calcium 8.7 mg/dL (8.4-10.2); Carbon Dioxide 24 mmol/L (22-29); Chloride 106 mmol/L (96-108); Creatinine Clr Calc Pharmacy 78.7; Estimated Glomerular Filt Rate > 60; Potassium 4.0 mmol/L (3.3-5.1); Sodium 139 mmol/L (135-145)
[2025-07-30 05:46] LABS: Hematocrit 37.3 % (42.0-52.0); Hemoglobin 12.4 g/dl (14.0-18.0); Imm Gran Abs Auto 0.01 X10*3/uL (0.00-0.03); Imm Gran Pct Auto 0.2 % (0.0-0.4); Lymphocytes Absolute Auto 2.0 X10*3/uL (1.2-4.9); Mean Corpuscular HGB Conc 33.2 g/dl (31.0-36.0); Mean Corpuscular Hemoglobin 30.0 pg (27.0-33.0); Mean Corpuscular Volume 90.1 fL (80.0-98.0); NRBC Abs Auto 0.000 X10*3/uL (0.0-0.012); NRBC Pct Auto 0.0 /100WBC (0.0-0.2); Platelet Count 147 X10*3/uL (160-400); Red Blood Count 4.14 X10*6/uL (4.60-5.80); White Blood Count 4.6 X10*3/uL (4.8-10.8)
[2025-07-30 07:56] LABS: Glucose, Whole Blood 89 mg/dL (60-115)
[2025-07-30] MEDS: 0.9 % Sodium Chloride Flush 3 ML SYRINGE IVFLUSH ×2 (08:12→16:08)
--- NOTE | 2025-07-30 08:26 | PC.NURSE ---
report called to Jacinda in [facility] ETA for sheepskin pickler 1000 . pt notified
--- NOTE | 2025-07-30 09:41 | P.PNGI_ITS ---
Subjective Subjective Date of Service: 07/30/25 Interval History: feels unchanged still has nausea and abdominal discomfort, no vomiting no fever Critical Care Time (minutes): 0 Physical Exam 2 Exam: Exam: EXAM: GENERAL: The patient is well developed and nontoxic. VITAL SIGNS:see workflow HEENT: Nonicteric sclerae, PERRLA, EOMI. Oropharynx clear. Moist mucous membranes. Conjunctivae appear well perfused. No thyroid mass. CHEST: Chest wall is nontender. HEART: Regular rate and rhythm without murmurs. LUNGS: Clear to auscultation bilaterally. ABDOMEN: Soft, positive bowel sounds, tender left abdomen and epigastrium, no organomegaly.no flank tenderness SKIN: No rash, no excessive bruising, petechiae, or purpura. NEUROLOGIC: Cranial nerves II-XII intact without motor/sensory deficit. Psych: normal affect Vital Signs: Vital Signs: Last Vital Signs Temp 98.1 F 07/30/25 09:35 Pulse 102 H 07/30/25 09:35 Resp 18 07/30/25 09:35 BP 120/76 07/30/25 09:35 Pulse Ox 95 07/30/25 09:35 O2 Del Method Room Air 07/30/25 09:35 BMI result Body Mass Index 26.8 Objective Data Labs 07/30/25 05:12 07/30/25 05:12 Labs: Laboratory Results - last 24 hr 07/29/25 07/29/25 07/29/25 09:53 11:26 15:26 WBC RBC Hgb Hct MCV MCH MCHC RDW Plt Count MPV Immature Gran % (Auto) Neut % (Auto) Lymph % (Auto) [place] % (Auto) Eos % (Auto) Baso % (Auto) Lymph # (Auto) [place] # (Auto) Eos # (Auto) Baso # (Auto) Abs Immat Gran (auto) Absolute Neuts (auto) Absolute Nucleated RBC Nucleated RBC % (auto) PT 24.7 H INR 2.1 H Sodium Potassium Chloride Carbon Dioxide Anion Gap BUN Creatinine Estim Creat Clear Calc Estimated GFR POC Glucose 108 113 Random Glucose Calcium 07/29/25 07/29/25 07/30/25 16:07 20:56 05:12 WBC 4.6 L RBC 4.14 L Hgb 12.4 L Hct 37.3 L MCV 90.1 MCH 30.0 MCHC 33.2 RDW 14.1 Plt Count 147 L MPV 9.4 Immature Gran % (Auto) 0.2 Neut % (Auto) 43.9 L Lymph % (Auto) 42.9 H [place] % (Auto) 9.7 Eos % (Auto) 2.6 Baso % (Auto) 0.7 Lymph # (Auto) 2.0 [place] # (Auto) 0.4 Eos # (Auto) 0.1 Baso # (Auto) 0.0 Abs Immat Gran (auto) 0.01 Absolute Neuts (auto) 2.0 Absolute Nucleated RBC 0.000 Nucleated RBC % (auto) 0.0 PT 22.2 H INR Sodium Potassium Chloride Carbon Dioxide Anion Gap BUN Creatinine Estim Creat Clear Calc Estimated GFR POC Glucose 126 H 98 Random Glucose Calcium 07/30/25 07/30/25 07/30/25 05:12 05:12 07:34 WBC RBC Hgb Hct MCV MCH MCHC RDW Plt Count MPV Immature Gran % (Auto) Neut % (Auto) Lymph % (Auto) [place] % (Auto) Eos % (Auto) Baso % (Auto) Lymph # (Auto) [place] # (Auto) Eos # (Auto) Baso # (Auto) Abs Immat Gran (auto) Absolute Neuts (auto) Absolute Nucleated RBC Nucleated RBC % (auto) PT Cancelled INR 1.8 H Cancelled Sodium 139 Potassium 4.0 Chloride 106 Carbon Dioxide 24 Anion Gap 13 BUN 12 Creatinine 1.11 Estim Creat Clear Calc 78.7 Estimated GFR > 60 POC Glucose 89 Random Glucose 95 Calcium 8.7 Procedures Date of Service Date of Service: 07/30/25 Progress Note: A&P Assessment and plan (1) Abnormal bowel habits: Status: Acute Plan 1/ abn bowel habits and abdominal pain, recent enteral infection PLAN: 1/ EGD and colo today for further assessment with bx Time Spent With Patient Time: Total time managing care of this patient today ____ minutes. Quality Stroke Does the patient have a stroke diagnosis?: No VTE Prior VTE?: Yes VTE Risk Level:: Medical - moderate - high VTE Device Contraindication: N/A - Device Ordered VTE Drug Contraindication: Treatment Not Indicated
--- NOTE | 2025-07-30 10:24 | HO.OPN-COLON ---
Colonoscopy Operative Note Operative Note Date of Service: 07/30/25 Narrative: Operative Information Procedure Description: EGD, Colonoscopy Indication: abn bowel habits and abdo pain Anesthesia: MAC FLEXIBLE TRANSORAL UPPER GASTROINTESTINAL ENDOSCOPY AND COLONOSCOPY PROCEDURE NOTE UPPER ENDOSCOPY Consent: Indications for the procedure and potential complications of bleeding, perforation, reaction to medications and missed diagnosis were discussed with the patient and informed consent was obtained. Instrument: Olympus GIF H 190 J mid size upper endoscope Monitoring: Vital signs and clinical assessment, continuous EKG monitoring, Pulse oximetry, Carbon Dioxide monitoring and blood pressure monitoring were done throughout the procedure. Procedure: The patient was placed in the left lateral decubitis position and pre-procedure medications were administered and a bite block was placed. The endoscope was inserted into the mouth and advanced under direct vision to the third part of duodenum. A careful inspection was made as the upper endoscope was withdrawn including a retroflexed examination of the proximal stomach; Findings and interventions are described below. Findings: Larynx:normal Esophagus: GE junction at 38 cm, diaphragm hiatus at 38 cm, normal mucosa Stomach: Patchy erythema with bile reflux noted . Biopsies were obtained. Grade 2 flap valve on retroflexed examination of the cardia. Duodenum: Normal bulb and descending duodenum, bx taken Intervention: Biopsies as noted above, COLONOSCOPY Instrument: Olympus variable stiffness pediatric scope 190L Colonoscopy Monitoring: Vital signs and clinical assessment, continuous EKG monitoring, Pulse oximetry, Carbon Dioxide monitoring and blood pressure monitoring were done throughout the procedure. Colon withdrawal time was 10 minutes. Procedure: The patient was placed in the left lateral decubitis position and pre-procedure medications were administered. After a digital rectal examination of the ano-rectum, the video colonoscope was inserted into the rectum and advanced through the colon to the cecum/TI. The colonoscope was slowly withdrawn in a retrograde panoramic fashion and the colon mucosa was carefully examined including a retroflexed view of the rectum. Findings and interventions are described below. Procedure Difficulty:moderate Findings: Terminal Ileum-normal, bx taken Cecum: granular mucosa Ascending Colon: normal Transverse Colon -normal Descending Colon:normal Sigmoid Colon: surgical anastomosis noted Rectum: Retroflexion with small internal hemorrhoids, grade I Anorectum - normal Colon preparation: [place] Bowel Preparation Scale Right colon; 1-2 Transverse colon: 1-2 Left colon; 2 (0 = Unprepared colon segment with mucosa not seen due to solid stool that cannot be cleared. 1 = Portion of mucosa of the colon segment seen, but other areas of the colon segment not well seen due to staining, residual stool and/or opaque liquid. 2 = Minor amount of residual staining, small fragments of stool and/or opaque liquid, but mucosa of colon segment seen well. 3 = Entire mucosa of colon segment seen well with no residual staining, small fragments of stool or opaque liquid) Impression and Post Procedure Diagnosis: Endoscopy Findings: gastritis bile acid reflux Colonoscopy Findings: internal hemorrhoids Plan: Await Pathology results Repeat Colonoscopy in 1-2 years due to fair prep or earlier if clinically indicated High fiber diet leaflet avoid straining at stool, epsom salts and sitz bath, anusol supps or cream can go home with trial of colesevelam Above findings were reviewed with the patient and relevant handouts were provided if indicated.
[2025-07-30 11:41] LABS: Glucose, Whole Blood 86 mg/dL (60-115)
[2025-07-30 11:42] LABS: CDiff Gene PCR NEGATIVE (Negative)
[2025-07-30 12:19] LABS: E. coli EAEC Not Detected (Not Detect.); E. coli EPEC Not Detected (Not Detect.); E. coli ETEC Not Detected (Not Detect.); E. coli STEC Not Detected (Not Detect.); Shigella sp./EIEC Not Detected (Not Detect.)
--- NOTE | 2025-07-30 14:54 | P.PNIM_ITS ---
Subjective Subjective Date of Service: 07/30/25 Interval History: Patient seen examined at bedside this morning, patient states that he is feeling well, has been taking bowel regimen. Going for EGD/colonoscopy later today. Review of Systems Review of Systems: Yes all other systems are reviewed and are negative Physical Exam 2 Exam: Exam: General: AxOx3, No acute distress Head: AT/NC ENT: Moist mucous membranes Neck: supple CVS; RRR, S1 S2 normal Lungs: Clear bilateral breath sounds, no wheezes or crackles Abd: Soft non tender, non distended Ext: No edema and no calf tenderness MSK: moving all 4 limbs Skin: No cyanosis or edema Psych: Cooperative with exam Neurology: no focal deficit Vital Signs: Vital Signs: Last Vital Signs Temp 99.9 F 07/30/25 10:45 Pulse 89 07/30/25 10:45 Resp 16 07/30/25 10:45 BP 103/59 L 07/30/25 10:45 Pulse Ox 94 07/30/25 10:45 O2 Del Method Room Air 07/30/25 10:45 BMI result Body Mass Index 26.8 Objective Data Active Medications Albuterol Sulfate (Albuterol Sulfate 90 Mcg 8 Gm Inhaler) 2 puff INHALE Q4H PRN PRN Reason: wheezing/sob Atorvastatin Calcium (Atorvastatin Calcium 80 Mg Tablet) 80 mg PO BEDTIME [facility] Last Admin: 07/29/25 22:47 Dose: 80 mg Documented By: NUZHAT Calcium Carbonate (Calcium Carbonate 750 Mg Tab.Chew) 750 mg PO Q4H PRN PRN Reason: Heartburn Cobicistat (Cobicistat 150 Mg Tablet) 150 mg PO DAILY [facility] Darunavir (Darunavir Ethanolate 800 Mg Tablet) 800 mg PO DAILY [facility] Dextrose (Dextrose 50 % 25 Gm/50 Ml Syringe) 25 gm IVPUSH Q15M PRN; Protocol PRN Reason: per Hypoglycemia Standing Ord. Docusate Sodium (Docusate Sodium 100 Mg Capsule) 100 mg PO BEDTIME PRN PRN Reason: Constipation Last Admin: 07/28/25 23:12 Dose: 100 mg Documented By: PRINCE Glucose (Glucose Gel 15 Gm Gel..Gram.) 15 gm PO Q15M PRN; Protocol PRN Reason: per Hypoglycemia Standing Ord. Hydromorphone HCl (Hydromorphone Hcl 1 Mg/Ml Syringe) 0.5 mg IVPUSH Q4H PRN; Protocol PRN Reason: Pain, Severe (Pain Scale 7-10) Last Admin: 07/29/25 22:52 Dose: 0.5 mg Documented By: NUZHAT Insulin Human Lispro (Insulin Lispro 100 Unit/Ml 3 Ml Vial) 0 unit SUBCUT QIDACHS [facility]; Protocol Last Admin: 07/30/25 11:43 Dose: Not Given Documented By: KIMI Non-Admin Reason: No Insulin Coverage Lacosamide (Lacosamide 100 Mg Tablet) 100 mg PO BID [facility] Last Admin: 07/30/25 11:21 Dose: 100 mg Documented By: KIMI Levothyroxine Sodium (Levothyroxine Sodium 25 Mcg Tablet) 25 mcg PO DAILY@0600 [facility] Last Admin: 07/30/25 05:19 Dose: Not Given Documented By: NUZHAT Non-Admin Reason: NPO Magnesium Hydroxide (Milk Of Magnesia 30 Ml Oral.Susp) 30 ml PO DAILY PRN PRN Reason: Constipation Melatonin (Melatonin 3 Mg Tablet) 6 mg PO BEDTIME PRN PRN Reason: Insomnia Morphine Sulfate (Morphine Sulfate 4 Mg/Ml Cartridge) 2 mg IVPUSH Q4H PRN; Protocol PRN Reason: Pain, Moderate(Pain Scale 4-6) Last Admin: 07/30/25 12:03 Dose: 2 mg Documented By: KIMI Naloxone HCl (Naloxone Hcl 0.4 Mg/Ml Vial) 0.04 mg IVPUSH Q5M PRN PRN Reason: Excessive sedation or RR < 8 Non-Formulary Medication (Azelastine) 1 drop EYE-LEFT BID PRN PRN Reason: Dry Eye(S) Ondansetron HCl (Ondansetron Hcl 4 Mg/2 Ml Vial) 4 mg IVPUSH Q8H PRN PRN Reason: Nausea and Vomiting Last Admin: 07/29/25 22:52 Dose: 4 mg Documented By: NUZHAT Raltegravir (Raltegravir Potassium 400 Mg Tablet) 600 mg PO BID [facility] Sodium Chloride (0.9 % Sodium Chloride Flush 3 Ml Syringe) [facility] Last Admin: 07/30/25 08:12 Dose: 3 ml Documented By: KIMI Tenofovir Disoproxil Fumarate (Tenofovir Disoproxil Fumarate 300 Mg Tablet) 300 mg PO DAILY [facility] Last Admin: 07/30/25 11:21 Dose: 300 mg Documented By: KIMI Trazodone HCl (Trazodone Hcl 50 Mg Tablet) 150 mg PO BEDTIME [facility] Last Admin: 07/29/25 22:47 Dose: 150 mg Documented By: NUZHAT Vitamin D (Cholecalciferol (Vitamin D3) 25 Mcg Tablet) 50 mcg PO DAILY [facility] Last Admin: 07/30/25 11:20 Dose: 50 mcg Documented By: KIMI Labs 07/30/25 05:12 07/30/25 05:12 Labs: Laboratory Results - last 24 hr 07/29/25 07/29/25 07/29/25 15:26 16:07 20:56 MCV MCH MCHC RDW Plt Count MPV Immature Gran % (Auto) Neut % (Auto) Lymph % (Auto) [place] % (Auto) Eos % (Auto) Baso % (Auto) Lymph # (Auto) [place] # (Auto) Eos # (Auto) Baso # (Auto) Abs Immat Gran (auto) Absolute Neuts (auto) Absolute Nucleated RBC Nucleated RBC % (auto) PT 24.7 H INR 2.1 H Anion Gap Estim Creat Clear Calc Estimated GFR POC Glucose 126 H 98 Random Glucose Calcium Stl C. cayetanensis PCR Stool Rotavirus A PCR Stl Adenov F 40/41 PCR Stool Astrovirus (PCR) Stool Campylobacter PCR Stool Cryptosporidium PCR Stl Sh Tox Pr E STEC PCR Stool E coli O157 PCR Stl Enterotoxigenic E PCR Stool EPEC (PCR) Stool EAEC (PCR) Stl E. histolytica PCR Stool Giardia Lamblia PCR Stl P. shigelloides PCR Stool Salmonella PCR Stool Sapovirus (PCR) Stl Shigella/EIEC PCR St Y.enterocolitica PCR Stool Vibrio (PCR) Stl Vibrio cholerae PCR Stl Norovirus GI/GII PCR C. difficile Tox B Gene 07/30/25 07/30/25 07/30/25 05:12 05:12 05:12 MCV 90.1 MCH 30.0 MCHC 33.2 RDW 14.1 Plt Count 147 L MPV 9.4 Immature Gran % (Auto) 0.2 Neut % (Auto) 43.9 L Lymph % (Auto) 42.9 H [place] % (Auto) 9.7 Eos % (Auto) 2.6 Baso % (Auto) 0.7 Lymph # (Auto) 2.0 [place] # (Auto) 0.4 Eos # (Auto) 0.1 Baso # (Auto) 0.0 Abs Immat Gran (auto) 0.01 Absolute Neuts (auto) 2.0 Absolute Nucleated RBC 0.000 Nucleated RBC % (auto) 0.0 PT 22.2 H Cancelled INR 1.8 H Cancelled Anion Gap 13 Estim Creat Clear Calc 78.7 Estimated GFR > 60 POC Glucose Random Glucose 95 Calcium 8.7 Stl C. cayetanensis PCR Stool Rotavirus A PCR Stl Adenov F PCR Stool Astrovirus (PCR) Stool Campylobacter PCR Stool Cryptosporidium PCR Stl Sh Tox Pr E STEC PCR Stool E coli O157 PCR Stl Enterotoxigenic E PCR Stool EPEC (PCR) Stool EAEC (PCR) Stl E. histolytica PCR Stool Giardia Lamblia PCR Stl P. shigelloides PCR Stool Salmonella PCR Stool Sapovirus (PCR) Stl Shigella/EIEC PCR St Y.enterocolitica PCR Stool Vibrio (PCR) Stl Vibrio cholerae PCR Stl Norovirus GI/GII PCR C. difficile Tox B Gene 07/30/25 07/30/25 07/30/25 07:34 10:15 11:31 MCV MCH MCHC RDW Plt Count MPV Immature Gran % (Auto) Neut % (Auto) Lymph % (Auto) [place] % (Auto) Eos % (Auto) Baso % (Auto) Lymph # (Auto) [place] # (Auto) Eos # (Auto) Baso # (Auto) Abs Immat Gran (auto) Absolute Neuts (auto) Absolute Nucleated RBC Nucleated RBC % (auto) PT INR Anion Gap Estim Creat Clear Calc Estimated GFR POC Glucose 89 86 Random Glucose Calcium Stl C. cayetanensis PCR Not Detected Stool Rotavirus A PCR Not Detected Stl Adenov F PCR Not Detected Stool Astrovirus (PCR) Not Detected Stool Campylobacter PCR Not Detected Stool Cryptosporidium PCR Not Detected Stl Sh Tox Pr E STEC PCR Not Detected Stool E coli O157 PCR Not applicable Stl Enterotoxigenic E PCR Not Detected Stool EPEC (PCR) Not Detected Stool EAEC (PCR) Not Detected Stl E. histolytica PCR Not Detected Stool Giardia Lamblia PCR Not Detected Stl P. shigelloides PCR Not Detected Stool Salmonella PCR Not Detected Stool Sapovirus (PCR) Not Detected Stl Shigella/EIEC PCR Not Detected St Y.enterocolitica PCR Not Detected Stool Vibrio (PCR) Not Detected Stl Vibrio cholerae PCR Not Detected Stl Norovirus GI/GII PCR Not Detected C. 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 returns to ED for intractable abd pain and multiple recent visits for campylobacter colitis. Suspect colitis - 2 recent abdominal CTs, last 1 with resolved colitis, KUB normal today - continue NPO - GI consulted, EGD/colonoscopy today - pain management with morphine and Dilaudid due to multiple allergies T2DM - SSI - jardiance History DVT (years ago) - hold warfarin due to procedure - will restart once EGD/colonoscopy is done Seizure disorder - lacosamide - Monitor for any breakthrough seizures HIV Immunodeficiency secondary to medications - continue home meds Full code VTE prophylaxis: Pneumoboots Disposition: All questions and concerns with the patient were answered to satisfaction. All pertinent clinical documents, images and labs were reviewed. DISCLAIMER: This document was created using voice recognition software. Any mistakes in the prescription are unintentional. An attempt was made to focus for accuracy, but to expedite availability, some errors may persist. Please contact with any need for correction or further clarification Total time managing care of this patient today: 55 minutes. Quality Stroke Does the patient have a stroke diagnosis?: No VTE Prior VTE?: Yes VTE Risk Level:: Medical - moderate - high VTE Device Contraindication: N/A - Device Ordered VTE Drug Contraindication: Treatment Not Indicated
[2025-07-30 16:35] LABS: Glucose, Whole Blood 108 mg/dL (60-115)
[2025-07-30 20:08] LABS: Glucose, Whole Blood 123 mg/dL (60-115)
[2025-07-31] MEDS: 0.9 % Sodium Chloride Flush 3 ML SYRINGE IVFLUSH ×4 (00:53→21:26)
[2025-07-31 03:11] VITALS: BP 101/55; PULSE 91; RESP 16; TEMP 36.7; O2SAT 95
[2025-07-31 05:54] LABS: MANUAL DIFF FLAG NO
[2025-07-31 05:57] LABS: Hematocrit 37.0 % (42.0-52.0); Hemoglobin 12.1 g/dl (14.0-18.0); Imm Gran Abs Auto 0.01 X10*3/uL (0.00-0.03); Imm Gran Pct Auto 0.2 % (0.0-0.4); Lymphocytes Absolute Auto 2.4 X10*3/uL (1.2-4.9); Mean Corpuscular HGB Conc 32.7 g/dl (31.0-36.0); Mean Corpuscular Hemoglobin 29.6 pg (27.0-33.0); Mean Corpuscular Volume 90.5 fL (80.0-98.0); NRBC Abs Auto 0.000 X10*3/uL (0.0-0.012); NRBC Pct Auto 0.0 /100WBC (0.0-0.2); Platelet Count 149 X10*3/uL (160-400); Red Blood Count 4.09 X10*6/uL (4.60-5.80); White Blood Count 5.1 X10*3/uL (4.8-10.8)
[2025-07-31 06:11] LABS: Anion Gap 13 (12-20); Blood Urea Nitrogen 11 mg/dL (9-16); Calcium 8.6 mg/dL (8.4-10.2); Carbon Dioxide 24 mmol/L (22-29); Chloride 105 mmol/L (96-108); Creatinine Clr Calc Pharmacy 75.9; Estimated Glomerular Filt Rate > 60; Potassium 3.7 mmol/L (3.3-5.1); Sodium 138 mmol/L (135-145)
[2025-07-31 07:24] VITALS: BP 106/58; PULSE 81; RESP 16; TEMP 36.9; O2SAT 93
[2025-07-31 07:48] LABS: Glucose, Whole Blood 122 mg/dL (60-115)
[2025-07-31] MEDS: COBICISTAT 150 MG PO (08:21)
--- NOTE | 2025-07-31 08:41 | HO.POSTANES ---
Post Anesthesia Evaluation Post Anesthesia Evaluation Date of Service: 07/31/25 Vital Signs: Vital Signs Temp Pulse Resp BP Pulse Ox O2 Del Method 07/31/25 07:24 98.4 F 81 16 93 Room Air 07/31/25 03:11 98.1 F 91 16 101/55 L 95 Room Air Anesthesia: Monitored Mental Status: Awake Pain Control: Satisfactory Nausea/Vomiting: None Hydration: Adequate Anesthesia-Related Issues: No Anes. Related Issues
--- NOTE | 2025-07-31 10:36 | P.PNIM_ITS ---
Subjective Subjective Date of Service: 07/31/25 Interval History: Patient seen and examined at bedside this morning, unable to tolerate diet with worsening abdominal pain on soft GI diet, we will regress to clear liquids. Review of Systems Review of Systems: Yes all other systems are reviewed and are negative Physical Exam 2 Exam: Exam: General: AxOx3, pain Head: AT/NC ENT: Moist mucous membranes Neck: supple CVS; RRR, S1 S2 normal Lungs: Clear bilateral breath sounds, no wheezes or crackles Abd: distendend, tender to palpation Ext: No edema and no calf tenderness MSK: moving all 4 limbs Skin: No cyanosis or edema Psych: Cooperative with exam Neurology: no focal deficit Vital Signs: Vital Signs: Last Vital Signs Temp 98.4 F 07/31/25 07:24 Pulse 81 07/31/25 07:24 Resp 16 07/31/25 07:24 BP 106/58 L 07/31/25 07:24 Pulse Ox 93 07/31/25 07:24 O2 Del Method Room Air 07/31/25 07:24 BMI result Body Mass Index 26.8 Objective Data Active Medications Albuterol Sulfate (Albuterol Sulfate 90 Mcg 8 Gm Inhaler) 2 puff INHALE Q4H PRN PRN Reason: wheezing/sob Atorvastatin Calcium (Atorvastatin Calcium 80 Mg Tablet) 80 mg PO BEDTIME [facility] Last Admin: 07/30/25 21:46 Dose: 80 mg Documented By: AIDEN Calcium Carbonate (Calcium Carbonate 750 Mg Tab.Chew) 750 mg PO Q4H PRN PRN Reason: Heartburn Cobicistat (Cobicistat 150 Mg Tablet) 150 mg PO DAILY [facility] Last Admin: 07/31/25 08:21 Dose: 150 mg Documented By: KIMI Darunavir (Darunavir Ethanolate 800 Mg Tablet) 800 mg PO DAILY [facility] Last Admin: 07/31/25 08:21 Dose: 800 mg Documented By: KIMI Dextrose (Dextrose 50 % 25 Gm/50 Ml Syringe) 25 gm IVPUSH Q15M PRN; Protocol PRN Reason: per Hypoglycemia Standing Ord. Docusate Sodium (Docusate Sodium 100 Mg Capsule) 100 mg PO BEDTIME PRN PRN Reason: Constipation Last Admin: 07/28/25 23:12 Dose: 100 mg Documented By: PRINCE Glucose (Glucose Gel 15 Gm Gel..Gram.) 15 gm PO Q15M PRN; Protocol PRN Reason: per Hypoglycemia Standing Ord. Hydromorphone HCl (Hydromorphone Hcl 1 Mg/Ml Syringe) 0.5 mg IVPUSH Q4H PRN; Protocol PRN Reason: Pain, Severe (Pain Scale 7-10) Last Admin: 07/29/25 22:52 Dose: 0.5 mg Documented By: NUZHAT Insulin Human Lispro (Insulin Lispro 100 Unit/Ml 3 Ml Vial) 0 unit SUBCUT QIDACHS [facility]; Protocol Last Admin: 07/31/25 07:46 Dose: Not Given Documented By: KIMI Non-Admin Reason: No Insulin Coverage Lacosamide (Lacosamide 100 Mg Tablet) 100 mg PO BID [facility] Last Admin: 07/31/25 08:21 Dose: 100 mg Documented By: KIMI Levothyroxine Sodium (Levothyroxine Sodium 25 Mcg Tablet) 25 mcg PO DAILY@0600 [facility] Last Admin: 07/31/25 05:18 Dose: 25 mcg Documented By: AIDEN Magnesium Hydroxide (Milk Of Magnesia 30 Ml Oral.Susp) 30 ml PO DAILY PRN PRN Reason: Constipation Melatonin (Melatonin 3 Mg Tablet) 6 mg PO BEDTIME PRN PRN Reason: Insomnia Morphine Sulfate (Morphine Sulfate 4 Mg/Ml Cartridge) 2 mg IVPUSH Q4H PRN; Protocol PRN Reason: Pain, Moderate(Pain Scale 4-6) Last Admin: 07/31/25 09:36 Dose: 2 mg Documented By: KIMI Naloxone HCl (Naloxone Hcl 0.4 Mg/Ml Vial) 0.04 mg IVPUSH Q5M PRN PRN Reason: Excessive sedation or RR < 8 Non-Formulary Medication (Azelastine) 1 drop EYE-LEFT BID PRN PRN Reason: Dry Eye(S) Ondansetron HCl (Ondansetron Hcl 4 Mg/2 Ml Vial) 4 mg IVPUSH Q8H PRN PRN Reason: Nausea and Vomiting Last Admin: 07/30/25 16:11 Dose: 4 mg Documented By: KIMI Pantoprazole Sodium (Pantoprazole Sodium 40 Mg/10 Ml Vial) 40 mg IVPUSH DAILY@0630 [facility] Last Admin: 07/31/25 05:22 Dose: 40 mg Documented By: AIDEN Raltegravir (Raltegravir Potassium 400 Mg Tablet) 600 mg PO BID [facility] Last Admin: 07/31/25 08:21 Dose: 600 mg Documented By: KIMI Sodium Chloride (0.9 % Sodium Chloride Flush 3 Ml Syringe) 3 ml IVFLUSH QSHIFT [facility] Last Admin: 07/31/25 08:22 Dose: 3 ml Documented By: KIMI Tenofovir Disoproxil Fumarate (Tenofovir Disoproxil Fumarate 300 Mg Tablet) 300 mg PO DAILY [facility] Last Admin: 07/31/25 08:21 Dose: 300 mg Documented By: KIMI Trazodone HCl (Trazodone Hcl 50 Mg Tablet) 150 mg PO BEDTIME [facility] Last Admin: 07/30/25 21:46 Dose: 150 mg Documented By: AIDEN Vitamin D (Cholecalciferol (Vitamin D3) 25 Mcg Tablet) 50 mcg PO DAILY [facility] Last Admin: 07/31/25 08:21 Dose: 50 mcg Documented By: KIMI Labs 07/31/25 05:47 07/31/25 05:47 Labs: Laboratory Results - last 24 hr 07/30/25 07/30/25 07/30/25 10:15 11:31 16:31 MCV MCH MCHC RDW Plt Count MPV Immature Gran % (Auto) Neut % (Auto) Lymph % (Auto) [place] % (Auto) Eos % (Auto) Baso % (Auto) Lymph # (Auto) [place] # (Auto) Eos # (Auto) Baso # (Auto) Abs Immat Gran (auto) Absolute Neuts (auto) Absolute Nucleated RBC Nucleated RBC % (auto) Anion Gap Estim Creat Clear Calc Estimated GFR POC Glucose 86 108 Random Glucose Calcium Stl C. cayetanensis PCR Not Detected Stool Rotavirus A PCR Not Detected Stl Adenov F 40/41 PCR Not Detected Stool Astrovirus (PCR) Not Detected Stool Campylobacter PCR Not Detected Stool Cryptosporidium PCR Not Detected Stl Sh Tox Pr E STEC PCR Not Detected Stool E coli O157 PCR Not applicable Stl Enterotoxigenic E PCR Not Detected Stool EPEC (PCR) Not Detected Stool EAEC (PCR) Not Detected Stl E. histolytica PCR Not Detected Stool Giardia Lamblia PCR Not Detected Stl P. shigelloides PCR Not Detected Stool Salmonella PCR Not Detected Stool Sapovirus (PCR) Not Detected Stl Shigella/EIEC PCR Not Detected St Y.enterocolitica PCR Not Detected Stool Vibrio (PCR) Not Detected Stl Vibrio cholerae PCR Not Detected Stl Norovirus GI/GII PCR Not Detected C. difficile Tox B Gene NEGATIVE 07/30/25 07/31/25 07/31/25 19:46 05:47 07:39 MCV 90.5 MCH 29.6 MCHC 32.7 RDW 14.0 Plt Count 149 L MPV 8.9 L Immature Gran % (Auto) 0.2 Neut % (Auto) 38.5 L Lymph % (Auto) 48.1 H [place] % (Auto) 11.0 Eos % (Auto) 1.6 Baso % (Auto) 0.6 Lymph # (Auto) 2.4 [place] # (Auto) 0.6 Eos # (Auto) 0.1 Baso # (Auto) 0.0 Abs Immat Gran (auto) 0.01 Absolute Neuts (auto) 2.0 Absolute Nucleated RBC 0.000 Nucleated RBC % (auto) 0.0 Anion Gap 13 Estim Creat Clear Calc 75.9 Estimated GFR > 60 POC Glucose 123 H 122 H Random Glucose 119 H Calcium 8.6 Stl C. cayetanensis PCR Stool Rotavirus A PCR Stl Adenov F 40/41 PCR Stool Astrovirus (PCR) Stool Campylobacter PCR Stool Cryptosporidium PCR Stl Sh Tox Pr E STEC PCR Stool E coli O157 PCR Stl Enterotoxigenic E PCR Stool EPEC (PCR) Stool EAEC (PCR) Stl E. histolytica PCR Stool Giardia Lamblia PCR Stl P. shigelloides PCR Stool Salmonella PCR Stool Sapovirus (PCR) Stl Shigella/EIEC PCR St Y.enterocolitica PCR Stool Vibrio (PCR) Stl Vibrio cholerae PCR Stl Norovirus GI/GII PCR C. 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 returns to ED for intractable abd pain and multiple recent visits for campylobacter colitis. underwent Colonoscopy yesterday Suspect colitis, - 2 recent abdominal CTs, last 1 with resolved colitis, KUB normal today - continue clear liquid diet at this time, unable to tolerate soft diet. - GI consulted, Endoscopy with findings suggestive of gastritis as well as bile acid reflux. Colonoscopy with internal hemorrhoids, biopsies taken. 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 All pertinent clinical documents, images and labs were reviewed. Total time managing care of this patient today: 55 minutes. Quality Stroke Does the patient have a stroke diagnosis?: No VTE Prior VTE?: Yes VTE Risk Level:: Medical - moderate - high VTE Device Contraindication: N/A - Device Ordered VTE Drug Contraindication: Treatment Not Indicated
[2025-07-31 11:32] LABS: INTERNATIONAL NORM RATIO 1.2 (0.9-1.1); Prothrombin Time 15.0 SEC (11.2-13.5)
[2025-07-31 11:41] LABS: Glucose, Whole Blood 168 mg/dL (60-115)
--- NOTE | 2025-07-31 13:23 | MHC.CM.PN ---
PER MD ROUNDS, PT LIKELY TO DC TOMORROW DCP: HOME, AFC PROVIDER TO TRANSPORT
[2025-07-31 15:53] VITALS: BP 135/63; PULSE 85; RESP 18; TEMP 36.8; O2SAT 97
[2025-07-31 16:21] LABS: Glucose, Whole Blood 160 mg/dL (60-115)
[2025-07-31 19:31] VITALS: BP 108/59; PULSE 70; RESP 18; TEMP 36.2; O2SAT 98
[2025-07-31 20:41] LABS: Glucose, Whole Blood 125 mg/dL (60-115)
[2025-07-31 20:58] LABS: Absolute CD3 Count 1867 cells/uL (840-3060); Absolute CD8 Count 1463 cells/uL (180-1170); Percent CD3 Cells 92 % (57-85); Percent CD8 Cells 72 % (12-42)
[2025-08-01 03:49] VITALS: BP 101/58; PULSE 74; RESP 16; TEMP 37.1; O2SAT 96
[2025-08-01 06:53] LABS: INTERNATIONAL NORM RATIO 1.2 (0.9-1.1); Prothrombin Time 14.4 SEC (11.2-13.5)
[2025-08-01 07:22] VITALS: BP 109/66; PULSE 81; RESP 16; TEMP 36.3; O2SAT 94
[2025-08-01 07:32] LABS: Glucose, Whole Blood 106 mg/dL (60-115)
[2025-08-01 09:42] VITALS: BP 124/75; PULSE 84; RESP 16; O2SAT 97
--- NOTE | 2025-08-01 11:00 | PC.NURSE ---
Patient made high fall risk. Refusing yellow non-skid socks, bed/chair alarm, wristband, and camera. Agreeable to wear brown non-skid socks. Patient ambulates with steady gait. Plan for discharge this afternoon.
[2025-08-01 11:18] LABS: Glucose, Whole Blood 127 mg/dL (60-115)
--- NOTE | 2025-08-01 14:00 | P.DS_ITS ---
DS: Providers Provider Date of Service: 08/01/25 Date of admission: 07/28/25 21:23 Date of discharge: 08/01/25 Primary care physician: Unknown Physician Consults: 07/28/25 21:23 Consult to Gastroenterology Routine Consulting Provider: Annika Esquivel Reason for consultation: intractable abd pain, recent campylobacter Has provider been notified: No DS: Diagnosis Discharge Diagnosis (1) Seizure disorder: Status: Acute (2) Immunodeficiency due to drug therapy: Status: Acute (3) HIV (human immunodeficiency virus infection): Status: Acute (4) Abdominal pain: Status: Acute (5) DVT (deep venous thrombosis): Status: Acute DS: Summary Hospital Course Hospital Course: 49-year-old male with a past medical history significant for hemorrhagic proctitis, DVT on warfarin, seizure disorder, HIV, multiple abdominal surgeries including partial colectomy, appendectomy, cholecystectomy and abdominal aortic aneurysm repair, who presented to the ED due to left-sided abdominal pain with melena and rectal bleeding. returns to ED for intractable abd pain and multiple recent visits for campylobacter colitis. Underwent endoscopy/colonoscopy with biopsy on 07/30 finding gastritis, bile acid reflux, internal hemorrhoids. On day of discharge patient tolerating his diet, pain under better control on p.o. pain medications. Suggested on following up with GI as an outpatient, continuing p.o. morphine, initiating Bentyl and colesevelam. Colitis - 2 [address]s, last 1 with resolved colitis, KUB normal today - continue clear liquid diet at this time, unable to tolerate soft diet. - GI consulted, Endoscopy with findings suggestive of gastritis as well as bile acid reflux. Colonoscopy with internal hemorrhoids, biopsies taken. Also high- fiber diet - Colesevelam 1250mg qd and follow up with GI and PCP - transitioned to PO morphine as patient was taking this as an outpatient for pain given multiple allergies. 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 - continue home meds Time Attestation Discharge Coordination Time (in mins): 35 minutes Quality: Safe Use of Opioids Does Pt have an Active Cancer Diagnosis on the Problem List?: No Quality: Stroke Does the patient have a stroke diagnosis?: No Physical Exam Exam: Exam: General: AxOx3, pain Head: AT/NC ENT: Moist mucous membranes Neck: supple CVS; RRR, S1 S2 normal Lungs: Clear bilateral breath sounds, no wheezes or crackles Abd: soft, non tender Ext: No edema and no calf tenderness MSK: moving all 4 limbs Skin: No cyanosis or edema Psych: Cooperative with exam Neurology: no focal deficit Vital Signs: Vital Signs: Last Vital Signs Temp 97.3 F 08/01/25 07:22 Pulse 84 08/01/25 09:42 Resp 16 08/01/25 09:42 BP 124/75 08/01/25 09:42 Pulse Ox 97 08/01/25 09:42 O2 Del Method Room Air 08/01/25 09:42 BMI result Body Mass Index 26.8 DS: Data Data Completed and Pending Completed studies during hospitalization [Text1]: Procedures Excision of Large Intestine, Via Natural or Artificial Opening Endoscopic, Diagnostic (09/25/24) Extirpation of Matter from Large Intestine, Via Natural or Artificial Opening Endoscopic (09/25/24) Pending studies at discharge: Pending at discharge 07/30/25 10:18 Surgical [PTH] Routine Labs on day of discharge: Laboratory Results - last 24 hr 07/28/25 07/31/25 07/31/25 18:01 16:14 20:38 PT INR POC Glucose 160 H 125 H Total Lymphocytes 2023 % CD3 Cells 92 H Absolute CD3 Count 1867 % CD4 Cells 21 L Absolute CD4 Count 415 L CD4/CD8 Ratio 0.28 L % CD8 Cells 72 H Absolute CD8 Count 1463 H 08/01/25 08/01/25 08/01/25 05:35 07:26 11:14 PT 14.4 H INR 1.2 H POC Glucose 106 127 H Total Lymphocytes % CD3 Cells Absolute CD3 Count % CD4 Cells Absolute CD4 Count CD4/CD8 Ratio % CD8 Cells Absolute CD8 Count Discharge Plan Discharge Anticipated Discharge Date/Time: 08/01/25 14:47 Patient Disposition: Home, Self-Care Discharge Diagnosis: Colitis HIV Referrals: Physician,Unknown J [Primary Care Provider, Medical] - 1 Week Annika Esquivel MD [Physician, Gastroenterology] - 2 Weeks Discharge Medications: New naloxone 0.4 mg/mL Solution 0.04 mg IVPUSH Q5M PRN (Reason: Excessive sedation or RR < 8) 3 Days Qty: 10 0RF morphine 15 mg Tablet 15 mg PO Q6H PRN (Reason: Pain, Severe (Pain Scale 7-10)) Qty: 21 0RF Rx Instructions: Partial Fill upon patient request. simethicone 80 mg Tablet,Chewable 80 mg PO QIDWMHS PRN (Reason: Gas) Qty: 12 0RF colesevelam 625 mg tablet 1,250 mg PO DAILY Qty: 14 0RF Continued ondansetron 4 mg tablet,disintegrating 4 mg PO Q8H PRN (Reason: nausea and vomiting) Qty: 10 0RF azelastine 0.05 % drops 1 drp ophthalmic-Left BID PRN (Reason: Dry Eye(S)) warfarin 5 mg tablet 7.5 mg PO FR@1800 warfarin 5 mg tablet 5 mg PO SUMOTUWETHSA@1800 Ozempic 2 mg/dose (8 mg/3 mL) pen injector 2 mg SUBCUT TU atorvastatin 80 mg tablet 80 mg PO DAILY famotidine 20 mg tablet 20 mg PO BID lacosamide [Vimpat] 100 mg tablet 100 mg PO BID levothyroxine 25 mcg tablet 25 mcg PO DAILY@0600 pantoprazole 40 mg tablet,delayed release (DR/EC) 40 mg PO DAILY@0630 trazodone 150 mg tablet 150 mg PO BEDTIME tenofovir disoproxil fumarate 300 mg tablet 300 mg PO DAILY cholecalciferol (vitamin D3) 50 mcg (2,000 unit) capsule 50 mcg PO DAILY Jardiance 25 mg tablet 25 mg PO DAILY Patient Comments: patient states has not taken in months Prezcobix 800-150 mg-mg tablet 1 tab PO DAILY Isentress HD 600 mg tablet 600 mg PO BID albuterol sulfate [Ventolin HFA] 90 mcg/actuation HFA aerosol inhaler 2 inh inhalation Q4H PRN (Reason: wheezing/sob) Discontinued levofloxacin 750 mg tablet 750 mg PO DAILY 4 Days Qty: 4 0RF Discharge Orders: Discharge Order (Routine); Ordered 08/01/25 Ordered By: Jerome Mcginnis Activity on Discharge: As tolerated Stand Alone Forms: Patient Portal Discharge page Print Language: Estonian Care Plan Goals: High fiber diet initiate colesevelam 1250mg QD take PO pain medication as needed Follow up with GI and PCP as outpatient Health Concerns: Colitis Plan of Treatment: colesevelam once a day for bile acid reflux PO morphine for pain await for biopsy results Assessment: 49-year-old male with a past medical history significant for hemorrhagic proctitis, DVT on warfarin, seizure disorder, HIV, multiple abdominal surgeries including partial colectomy, appendectomy, cholecystectomy and abdominal aortic aneurysm repair, who presented to the ED due to left-sided abdominal pain with melena and rectal bleeding. returns to ED for intractable abd pain and multiple recent visits for campylobacter colitis. Underwent endoscopy/colonoscopy with biopsy on 07/30 finding gastritis, bile acid reflux, internal hemorrhoids.
[2025-08-01] MEDS: Naloxone HCl Nasal TAKE HOME 4 MG SPRAY 8 MG NOSTRILALT (14:14)
--- NOTE | 2025-08-01 14:22 | MHC.CM.PN ---
PT CLEARED TO DC HOME TODAY WITH RESUMPTION OF [facility] TO TRANSPORT
[2025-08-01 14:25] VITALS: BP 100/64; PULSE 89; RESP 17; TEMP 36.7; O2SAT 96
[2025-08-04 22:17] LABS: Lactase 5.9 (15.0-45.5); Maltase 143.5 (100.0-224.4); Palatinase 12.3 (5.0-26.3); Sucrase 54.5 (25.0-69.9)
[2025-08-05 21:27] LABS: Lactoferrin, Fecal, Quant. <6.25 mcg/mL (<7.25)
== END 2025-08-01 14:23 | disposition home or self-care (01) | DRG 977 ==
LOC: HO.ED 21:11 → HO.EDOVER 21:31 → HO.S3 07-29 08:51
PROVIDERS: Internal Medicine Gastroenterology; Nurse Practitioner; Physician Assistant; Physician Assistant Medical; Admitting Provider Physician Assistant; Emergency Provider Student in an Organized Health Care Education/Training Program; PCP Physician Assistant; Visit Provider Student in an Organized Health Care Education/Training Program
PROC: 0DB98ZX Excision of Duodenum, Via Natural or Artificial Opening Endoscopic, Diagnostic (ICD-10-PCS; principal; 2025-07-30 12:00)
DX: K52.9 Noninfective gastroenteritis and colitis, unspecified (principal); B20 Human immunodeficiency virus [HIV] disease; G40.909 Epilepsy, unspecified, not intractable, without status epilepticus; E11.9 Type 2 diabetes mellitus without complications; K64.0 First degree hemorrhoids; Z98.0 Intestinal bypass and anastomosis status; Z86.718 Personal history of other venous thrombosis and embolism; Z87.891 Personal history of nicotine dependence; Z79.01 Long term (current) use of anticoagulants; Z79.890 Hormone replacement therapy; Z79.899 Other long term (current) drug therapy
CPT/HCPCS: 36415; 74018; 80048; 80053; 81003; 82657; 82947; 83631; 83735; 85025; 85610; 85730; 86359; 86360; 87493; 87507; 88305; 88313; 88342; 99285; J1171; J2003; J2270; J2371; J2405; J2470; J2704; J7120

== ENCOUNTER → 2025-07-28 17:16 | Outpatient (BNV) | payer MEDICARE, MEDICAID, SELFPAY | PROVIDERS: Emergency Provider Student in an Organized Health Care Education/Training Program; Visit Provider Radiology Diagnostic Radiology | DX: K59.00 Constipation, unspecified (principal) | CPT/HCPCS: 74018 ==

== ENCOUNTER → 2025-07-28 21:23 | Outpatient (BNV) | payer MEDICARE, MEDICAID, SELFPAY | PROVIDERS: Admitting Provider Physician Assistant; Emergency Provider Student in an Organized Health Care Education/Training Program; Visit Provider Student in an Organized Health Care Education/Training Program | DX: G40.909 Epilepsy, unspecified, not intractable, without status epilepticus (principal); B20 Human immunodeficiency virus [HIV] disease; I82.409 Acute embolism and thrombosis of unspecified deep veins of unspecified lower extremity; K52.9 Noninfective gastroenteritis and colitis, unspecified; R10.9 Unspecified abdominal pain; Z86.19 Personal history of other infectious and parasitic diseases | CPT/HCPCS: 99222; 99233; 99239 ==

== ENCOUNTER → 2025-07-28 21:23 | Outpatient (BNV) | payer MEDICARE, MEDICAID, SELFPAY | PROVIDERS: Admitting Provider Physician Assistant; Emergency Provider Student in an Organized Health Care Education/Training Program; Visit Provider Internal Medicine Gastroenterology | DX: R19.4 Change in bowel habit (principal); R10.9 Unspecified abdominal pain | CPT/HCPCS: 99223 ==